=== PATIENT | female | born 1940 | race Caucasian/White ===

== ENCOUNTER 2021-10-18 13:41 | Inpatient (IN) | payer MEDICARE, MEDICAID, SELFPAY ==
--- NOTE | ~2021-10-18 | XR_ITS ---
EXAMINATION: XR chest 1V portable EXAM DATE: 10/18/2021 15:42 INDICATION: Shortness of breath. TECHNIQUE: Portable AP frontal chest x-ray was obtained. An additional portal image was obtained afte r reviewing the initial image due to right hemithorax appearance. There is no prior study for compari son. FINDINGS: Relative lucency along the lateral aspect of right lung is suspected to be skin folds. No c onfluent consolidation, pneumothorax or pleural effusion suspected. There are mild bony degenerative changes. There are cholecystectomy clips. Cardiomediastinal silhouette is normal. IMPRESSION: No acute cardiopulmonary findings. Reviewed, dictated and finalized at location B. 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
--- NOTE | ~2021-10-18 | XR_ITS ---
XR chest 1V portable DATE: 10/20/2021 06:32 INDICATION: Covid 19 infection. Shortness of breath. TECHNIQUE: Portable AP chest on 10/20/2021 at 0602 hours COMPARISON: 10/18/2021 portable AP chest at 1538 hours FINDINGS: Heart size appears within normal range. Aortic arch calcification. There are patchy infiltrates and/or atelectasis scattered primarily in the mid and lower lung zones. No pleural effusion or pneumothorax. Diffuse osteopenia. IMPRESSION: Scattered patchy infiltrate and/atelectasis involving primarily the mid and lower lung zo connor Reviewed, dictated and finalized at location A. 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
[2021-10-18 13:41] VITALS: BP 193/88; PULSE 88; RESP 28; TEMP 38.2; O2SAT 92
--- NOTE | 2021-10-18 13:47 | ECG_ITS ---
Measurements Intervals [place] Rate: 84 P: 54 IA: 162 QRS: 72 QRSD: 96 T: 60 QT: 355 QTc: 420 Interpretive Statements SINUS RHYTHM POSSIBLE LEFT ATRIAL ENLARGEMENT EARLY PRECORDIAL R/S TRANSITION BORDERLINE ST ABNORMALITY- ANTEROLAT/INF LEADS BASELINE ARTIFACT- II, V1 BORDERLINE ECG Electronically Signed On 10-18-2021 15:08:37 GARAGE MECHANIC by Keron Mcneil D.O.
[2021-10-18 15:40] LABS: Basophils Percent Auto 0.5 % (0.2-1.2); Eosinophils Percent Auto 0.2 % (0-4.4); Hematocrit 47.3 % (37.0-47.0); Hemoglobin 15.3 g/dL (12.0-15.0); Immature Granulocyte Absolute 0.02 K/mm3 (0.00-0.031); Immature Granulocyte Percent A 0.3 % (0-0.5); Immature Platelet Fraction Pct 3.1 % (0.9-11.2); Lymphocytes Absolute Auto 0.82 K/mm3 (0.9-3.2); Lymphocytes Percent Auto 13.3 % (18.3-44.2); Mean Corpuscular HGB Conc 32.3 g/dl (32-36); Mean Corpuscular Hemoglobin 29.7 pg (26-34); Mean Corpuscular Volume 91.8 fl (80-100); Mean Platelet Volume 10.7 fl (7.4-10.4); Monocytes Absolute Auto 0.4 K/mm3 (0.1-0.6); Monocytes Percent Auto 6.8 % (2.6-8.5); Neutrophils Absolute Auto 4.9 K/mm3 (1.3-6.7); Neutrophils Percent Auto 78.9 % (45.5-73.1); Platelet Count Result 101 k/mm3 (150-375); Red Blood Count 5.15 M/mm3 (4.2-5.4); White Blood Count 6.2 K/mm3 (4.5-10.0)
[2021-10-18 15:48] LABS: Alanine Aminotransferase 40 U/L (4-35); Albumin Level 4.2 g/dL (3.5-5.1); Alkaline Phosphatase 145 U/L (38-126); Anion Gap 10 mmol/L (8-16); Aspartate Amino Transferase 43 U/L (14-36); Bilirubin,Total 0.5 mg/dL (0.2-1.3); Blood Urea Nitrogen 16 mg/dL (7-17); Calcium 9.7 mg/dL (8.4-10.2); Carbon Dioxide 21 mmol/L (22-30); Chloride 104 mmol/L (98-107); Estimated CRCL calculation 43 ml/min; Estimated Glomerular Filt Rate 53; Glucose 237 mg/dL (65-110); Potassium 4.1 mmol/L (3.4-5.0); Sodium 135 mmol/L (137-145)
[2021-10-18 15:56] LABS: NT Pro B Type Natriuretic Pept 146 pg/mL (5-100)
[2021-10-18 16:27] LABS: Add Urine Microscopic? YES; Appearance Urine Cloudy (Clear); Bacteria Urine 2+ /hpf; Bilirubin Urine Negative (Negative); Blood Urine Negative (Negative); Color Urine Yellow (Yellow); Glucose Urine UA 1+ mg/dL (Negative); Ketones Urine Negative (Negative); Leukocyte Esterase Ur 3+ LEU/UL (Negative); Mucus Urine Rare /lpf; Nitrate Urine Positive (Negative); Protein Urine 1+ mg/dL (Negative); Specific Grav Ur 1.019 (1.001-1.035); Urobilinogen Urine Negative mg/dL (<2.0); WBC Clumps Urine Present /HPF; WBC Urine >75 /hpf
[2021-10-18 17:00] LABS: NT Pro B Type Natriuretic Pept 142 pg/mL (5-100); Troponin I < 0.012 ng/mL (0.000-0.034)
--- NOTE | 2021-10-18 17:00 | ED.GENADULT ---
HPI - General Adult General Chief complaint: Altered Mental Status Stated complaint: Altered mental status Time Seen by Provider: 10/18/21 15:51 History of Present Illness HPI narrative: Patient is a significant 82-year-old female that presents the emergency department with chief complaint of altered mental status patient was sent from a local nursing facility after they noticed that she was less active than normal today and was also found to have a fever. The patient normally is ambulatory and interacts and today she has been laying in her bed and not as interactive than normal. The patient is also been nonambulatory today per the nursing facility the patient had a rapid COVID test that was negative Related Data Home Medications Medication Instructions Recorded Confirmed Aspir-81 81 mg PO DAILY 10/18/21 Lactobacillus acidoph-L.bulgar 1 tablet PO BID 10/18/21 [Floranex] Tylenol 650 mg PO Q4-6H PRN 10/18/21 amlodipine 10 mg PO DAILY 10/18/21 atorvastatin 40 mg PO DAILY 10/18/21 docusate sodium 100 mg PO BID 10/18/21 donepezil 10 mg PO DAILY 10/18/21 insulin glargine [Lantus U-100 15 unit SUBCUT 10/18/21 Insulin] lisinopril 10 mg PO DAILY 10/18/21 loratadine 10 mg PO DAILY 10/18/21 memantine [Namenda] 10 mg PO BID 10/18/21 metoprolol tartrate 25 mg PO BID 10/18/21 pregabalin [Lyrica] 150 mg PO BID 10/18/21 Allergies Allergy/AdvReac Type Severity Reaction Status Date / Time metronidazole Allergy Unknown Verified 10/18/21 13:52 Review of Systems Review of Systems: A 10 system review of systems was completed on the patient and is negative except for what is stated in the HPI. Nursing and ancillary documentation was reviewed. Exam Narrative: GENERAL: Well-appearing, well-nourished, and in no acute distress. HEAD: Normocephalic, atraumatic. EYES: PERRLA and EOMI. ENT: Nares clear, no rhinorrhea or epistaxis. Mucous membranes moist. NECK: Supple. CHEST: Clear to auscultation. No respiratory distress. HEART: Regular rate and rhythm. No murmur heard. Normal peripheral pulses. ABDOMEN: Soft, nontender, nondistended, normal active bowel sounds. EXTREMITIES: Normal range of motion. No edema. SKIN: Warm, dry, no rash. NEURO: No focal deficits. Alert and oriented x3. PSYCH: Normal mood and affect. Course Vital Signs Vital signs: Vital Signs Temperature 38.2 C H 10/18/21 13:41 Pulse Rate 88 10/18/21 13:41 Respiratory Rate 28 H 10/18/21 13:41 Blood Pressure 193/88 H 10/18/21 13:41 Pulse Oximetry 92 10/18/21 13:41 Temperature 38.2 C H 10/18/21 13:41 Pulse Rate 78 10/18/21 17:41 Respiratory Rate 22 H 10/18/21 17:41 Blood Pressure 134/70 10/18/21 17:41 Pulse Oximetry 99 10/18/21 17:41 Medical Decision Making Vital Signs Vital Signs: Vital Signs Temperature 38.2 C H 10/18/21 13:41 Pulse Rate 88 10/18/21 13:41 Respiratory Rate 28 H 10/18/21 13:41 Blood Pressure 193/88 H 10/18/21 13:41 Pulse Oximetry 92 10/18/21 13:41 Temperature 38.2 C H 10/18/21 13:41 Pulse Rate 78 10/18/21 17:41 Respiratory Rate 22 H 10/18/21 17:41 Blood Pressure 134/70 10/18/21 17:41 Pulse Oximetry 99 10/18/21 17:41 Lab Data Result diagrams: 10/18/21 15:24 10/18/21 15:23 Labs: Lab Results 10/18/21 10/18/21 10/18/21 Range/Units 15:22 15:23 15:23 WBC (4.5-10.0) K/mm3 RBC (4.2-5.4) M/mm3 Hgb (12.0-15.0) g/dL Hct (37.0-47.0) % MCV (80-100) fl MCH (26-34) pg MCHC (32-36) g/dl RDW (11.5-14.5) % Plt Count (150-375) k/mm3 MPV (7.4-10.4) fl Immature Gran % (Auto) (0-0.5) % Neut % (Auto) (45.5-73.1) % Lymph % (Auto) (18.3-44.2) % Gordon % (Auto) (2.6-8.5) % Eos % (Auto) (0-4.4) % Baso % (Auto) (0.2-1.2) % Lymph # (Auto) (0.9-3.2) K/mm3 Gordon # (Auto) (0.1-0.6) K/mm3 Eos # (Auto) (0-0.3) K/mm3 Baso # (Auto) (0.0-0.1) K/mm3 A
[2021-10-18 17:41] VITALS: BP 134/70; PULSE 78; RESP 22; O2SAT 99
[2021-10-18 17:52] LABS: Lactic Acid Reflex 3.3 mmol/L (0.7-2.1)
[2021-10-18 17:53] LABS: Partial Thromboplastin Time 30.9 SECONDS (22.3-36.8); Prothrombin Time 12.6 Seconds (11.1-14.7)
[2021-10-18 17:59] LABS: SARS-CoV-2 RNA PCR Positive
[2021-10-18 19:20] VITALS: BP 122/76; PULSE 68; RESP 18; O2SAT 98
--- NOTE | 2021-10-18 20:09 | PM.IMHP ---
H&P: HPI History of Present Illness Date/Time: 10/18/21 20:09 Chief Complaint: Altered mental status. Narrative: This is a 81-year-old female with past medical history significant for Alzheimer's dementia, hypertension, he choose a intermediate resident. Patient was brought to the emergency room due to staff concerns due to patient's altered mental status she was noted not to be as active as usual. In emergency room preliminary workup was significant for urinalysis with numerous wbc's present and a COVID test positive. At the time of my visit patient was obtunded unable to give any history. Review of Systems Review of Systems: ROS unobtainable: Yes unobtainable due to mental status (Obtundation) PMFSH Social History Social History Smoking status: Never smoker Alcohol intake: never Substance use: never Spiritual care concerns: No Meds Home Medications and Allergies Home Medications Medication Instructions Recorded Confirmed Type Aspir-81 81 mg PO DAILY 10/18/21 10/18/21 History Lactobacillus acidoph-L.bulgar 1 tablet PO BID 10/18/21 10/18/21 History [Floranex] Tylenol 650 mg PO Q4-6H PRN 10/18/21 10/18/21 History amlodipine 10 mg PO DAILY 10/18/21 10/18/21 History atorvastatin 40 mg PO DAILY 10/18/21 10/18/21 History docusate sodium 100 mg PO BID 10/18/21 10/18/21 History donepezil 10 mg PO DAILY 10/18/21 10/18/21 History insulin glargine [Lantus U-100 15 unit SUBCUT HS 10/18/21 10/18/21 History Insulin] lisinopril 10 mg PO DAILY 10/18/21 10/18/21 History loratadine 10 mg PO DAILY 10/18/21 10/18/21 History memantine [Namenda] 10 mg PO BID 10/18/21 10/18/21 History metoprolol tartrate 25 mg PO BID 10/18/21 10/18/21 History pregabalin [Lyrica] 150 mg PO BID 10/18/21 10/18/21 History Allergies Allergy/AdvReac Type Severity Reaction Status Date / Time metronidazole Allergy Unknown Verified 10/18/21 13:52 Vital Signs Vital Signs - 24 hr 10/18/21 13:41 10/18/21 17:41 10/18/21 19:20 Temperature 100.8 F H Pulse Rate 88 78 68 Respiratory Rate 28 H 22 H 18 Blood Pressure 193/88 H 134/70 122/76 Pulse Oximetry 92 99 98 Exam Narrative: Patient is laying in bed Const: General: comfortable, no acute distress, well developed and patient obtunded Nutritional Appearance: average body habitus Orientation/consciousness: patient obtunded Limitations: altered mental status HENMT: Head: normal to inspection, normocephalic and atraumatic Ears: hearing grossly normal bilaterally General nose exam: Normal external nose present Face and sinus: normal facial exam Mouth: Yes Normal oral and palatal mucosa present Eyes: General: appearance normal, both eyes and all related structures Alignment and Position: alignment normal Sclera: sclerae normal Pupils: Equal, round and reactive pupils present EOM: EOMs intact bilaterally Neck: Neck: normal visual inspection, full ROM, no lymphadenopathy, supple and no JVD Thyroid: thyroid normal Lymphatic: no lymphadenopathy noted Resp: Effort & Inspection: normal respiratory effort and able to speak in complete sentences Auscultation: clear to auscultation bilaterally, no crackles, no rales, no rhonchi and no wheezes Cardio: Jugular venous distension: no JVD Rate: regular rate Rhythm: regular rhythm Heart sounds: S1 normal heart sound present and S2 normal heart sound present GI: Inspection: normal to inspection GI Palp: Yes Soft to palpation, No Tenderness to palpation present (GI), No Guarding due to palpation present (GI), Yes No hepatosplenomegaly present and No Rebound tenderness present : General: Yes deferred Skin: General skin exam: normal color Rashes: no rashes Wounds: no wounds Neuro: General: CN's II-XI intact bilaterally and patient obtunded Cranial nerves: Yes CN's II-XII intact bilaterally and Yes Equal, round and reactive pupils present Cognition (Neuro): abnormal cognition (Obtun
--- NOTE | 2021-10-18 20:34 | ADMGEN ---
This patient, Emelina Santoyo, was admitted to 3 [facility] Surg Room 316-01. Patient/family oriented to hospital policies and general routines including ID bracelet, bed and alarms, visiting hours, pain management, procedures, bathroom and other care routines, personal items, smoking policy, room service/diet, and visiting hours. Information on how to activate the Rapid Response Team has been discussed. Patient/Family are encouraged to report perceived risks to care and to ask questions if they do not understand what they are told or what they should do.
[2021-10-18 20:39] LABS: Reflex Lactic Acid Yes or No Add Lactic
[2021-10-18 21:19] LABS: Lactic Acid 2.4 mmol/L (0.7-2.1)
[2021-10-18] MEDS: SODIUM CHLORIDE 0.9% IV 1,000 ML 999 ML IV CONT (21:20)
[2021-10-18 21:45] VITALS: BMI 29.0
[2021-10-18 22:00] VITALS: BP 112/56; PULSE 81; RESP 16; TEMP 37.3; O2SAT 95
[2021-10-19] VITALS (8 sets, daily range): BP systolic 125–158; BP diastolic 51–76; PULSE 70–102; RESP 14–16; TEMP 36.2–38.4; O2SAT 91–100
[2021-10-19] MEDS: INSULIN GLARGINE (LANTUS) 1,000 UNITS/10 ML VIAL 15 UNITS SUB-Q ×2 (02:18→20:24)
[2021-10-19 02:37] LABS: Glucose Point of Care 221 mg/dl (65-105)
[2021-10-19 02:37] LABS: Glucose Point of Care 147 mg/dl (65-105)
--- NOTE | 2021-10-19 07:45 | PC.NURSE ---
10/18/21 2100 Pt B/P was in the 90s over 40s. Bases of lungs had crackles. O2 sats 84 on room air. Pt started on3L of O2 sat 91%. Rapid response called.
[2021-10-19 08:38] LABS: Glucose Point of Care 168 mg/dl (65-105)
[2021-10-19 09:15] LABS: Hematocrit 42.5 % (37.0-47.0); Hemoglobin 13.8 g/dL (12.0-15.0); Immature Platelet Fraction Pct 3.8 % (0.9-11.2); Mean Corpuscular HGB Conc 32.5 g/dl (32-36); Mean Corpuscular Hemoglobin 29.6 pg (26-34); Mean Platelet Volume 10.7 fl (7.4-10.4); Platelet Count Result 94 k/mm3 (150-375); Red Blood Count 4.67 M/mm3 (4.2-5.4); Red Cell Distribution Width 14.1 % (11.5-14.5); White Blood Count 5.4 K/mm3 (4.5-10.0)
[2021-10-19 09:29] LABS: Alanine Aminotransferase 30 U/L (4-35); Albumin Level 3.8 g/dL (3.5-5.1); Alkaline Phosphatase 108 U/L (38-126); Anion Gap 12 mmol/L (8-16); Aspartate Amino Transferase 32 U/L (14-36); Bilirubin,Total 0.5 mg/dL (0.2-1.3); Blood Urea Nitrogen 17 mg/dL (7-17); Calcium 9.1 mg/dL (8.4-10.2); Carbon Dioxide 22 mmol/L (22-30); Chloride 104 mmol/L (98-107); Estimated CRCL calculation 40 ml/min; Estimated Glomerular Filt Rate 48; Glucose 179 mg/dL (65-110); Potassium 4.4 mmol/L (3.4-5.0); Sodium 138 mmol/L (137-145)
[2021-10-19 12:25] LABS: Glucose Point of Care 249 mg/dl (65-105)
[2021-10-19] MEDS: INSULIN ASPART (*BKC) 100 UNITS/ML SUB-Q ×2 (12:39→18:07)
--- NOTE | 2021-10-19 16:41 | PM.IMPN ---
Progress Note: A&P Assessment and Plan (1) Altered mental status: Qualifiers: Altered mental status type: unspecified Qualified Code(s): R41.82 - Altered mental status, unspecified Code(s): R41.82 - Altered mental status, unspecified Status: Acute Assessment and Plan: Likely secondary to urinary tract infection Treat infection monitor progress (2) Acute UTI: Code(s): N39.0 - Urinary tract infection, site not specified Status: Acute Assessment and Plan: 10/19 day 2 ceftriaxone 10/19 urine culture growing Gram-negative bacilli (3) COVID-19: Code(s): U07.1 - COVID-19 Status: Acute Assessment and Plan: Though CXR is negative, she is requiring oxygen She is not on oxygen at the [place] 10/19 d/w son, Osmar, staring Dexamethasone and monitoring CXR (4) Dementia: Qualifiers: Dementia type: unspecified type Dementia behavioral disturbance: without behavioral disturbance Qualified Code(s): F03.90 - Unspecified dementia without behavioral disturbance Code(s): F03.90 - Unspecified dementia without behavioral disturbance Status: Acute Assessment and Plan: Continue memantine (5) Hypertension: Qualifiers: Hypertension type: unspecified Qualified Code(s): I10 - Essential (primary) hypertension Code(s): I10 - Essential (primary) hypertension Status: Acute Assessment and Plan: Holding antihypertensive Patient had an episode of hypotension 10/18 10/19 BP 142/62 (6) Multiple sclerosis: Code(s): G35 - Multiple sclerosis Status: Acute Assessment and Plan: 10/19 dx per son, chronic per decades son states that she has at least one episode of UTI or pneumonia every winter Subjective Date/time seen: 10/19/21 16:41 Interval history: 10/18 admitted from [facility] with altered mental status and found to have urinary tract infection. Obtunded upon admission. 10/19 visit. More alert. Staff Notes no signs of pain or agitation. Review of Systems Review of Systems: ROS unobtainable: Yes unobtainable due to medical condition Exam Narrative: HEENT: PERRL, sclerae nonicteric, pharyngeal mucosa pink and intact NECK: No JVD CHEST: Clear to auscultation. Normal effort. HEART: NL S1/S2, regular, no murmur ABDOMEN: BS+, soft, nontender, no mass, no bruits EXTREMITIES: No cyanosis, edema, or clubbing NEUROLOGIC: CN with mild left facial droop MUSCULOSKELETAL: Tone and strength symmetric. PSYCH: drowsy but arouses easily. Appears to be oriented to person. Nonverbal. Objective Data Vital Signs Vital Signs: Vital Signs - 24 hr 10/18/21 17:41 10/18/21 19:20 10/18/21 22:00 Temperature 99.2 F Pulse Rate 78 68 81 Respiratory Rate 22 H 18 16 Blood Pressure 134/70 122/76 112/56 L Pulse Oximetry 99 98 95 10/19/21 06:00 10/19/21 08:00 10/19/21 11:40 Temperature 101.2 F H Pulse Rate 96 96 Respiratory Rate 16 16 Blood Pressure 142/62 H Pulse Oximetry 97 97 91 Intake/Output Intake/Output: Intake & Output 10/16/21 10/17/21 10/18/21 10/19/21 23:59 23:59 23:59 23:59 Intake Total 150 750 Output Total 400 Balance 150 350 Meds/Results Medications: Active Medications Generic Name Dose Route Start Last Admin Trade Name Freq PRN Reason Stop Dose Admin Acetaminophen 650 mg 10/18/21 17:26 Acetaminophen 325 Mg Tablet PO Q4H PRN Mild Pain (1-3) or Fever Amlodipine Besylate 10 mg 10/19/21 09:00 10/19/21 11:57 Amlodipine Besylate 5 Mg Tablet PO Not Given DAILY [facility] Aspirin 81 mg 10/19/21 09:00 10/19/21 11:57 Aspirin 81 Mg Chewable Tablet PO Not Given DAILY [facility] Atorvastatin Calcium 40 mg 10/19/21 09:00 10/19/21 11:57 Atorvastatin 40 Mg Tablet PO Not Given DAILY [facility] Dextrose 12.5 gm 10/19/21 02:47 Dextrose 50% 25 Gm/50 Ml Syringe IV PUSH PRN PRN Hypoglycemia Protocol Docusate Sodiu
[2021-10-19 16:49] LABS: Glucose Point of Care 223 mg/dl (65-105)
[2021-10-19] MEDS: DOCUSATE SODIUM 100 MG CAPSULE PO (18:09)
[2021-10-19] MEDS: ACIDOPHILUS/BULGARICUS CHEWABLE TABLET 1 TABLET PO (18:09)
[2021-10-19] MEDS: METOPROLOL TARTRATE 25 MG TABLET PO (18:09)
[2021-10-19] MEDS: MEMANTINE 10 MG TABLET PO (18:10)
[2021-10-19] MEDS: PREGABALIN (*CRX) 75 MG CAPSULE 150 MG PO (18:11)
[2021-10-19] MEDS: DEXTROSE 5%/0.45% SOD CHL 1,000 ML 65 ML IV CONT ×2 (20:24→21:21)
[2021-10-19 21:26] LABS: Glucose Point of Care 203 mg/dl (65-105)
[2021-10-20] VITALS (9 sets, daily range): BP systolic 116–143; BP diastolic 49–69; PULSE 70–100; RESP 16–20; TEMP 36.6–36.9; O2SAT 95–100
[2021-10-20 08:07] LABS: Hematocrit 40.5 % (37.0-47.0); Hemoglobin 13.2 g/dL (12.0-15.0); Immature Platelet Fraction Pct 4.7 % (0.9-11.2); Mean Corpuscular HGB Conc 32.6 g/dl (32-36); Mean Corpuscular Hemoglobin 29.5 pg (26-34); Mean Corpuscular Volume 90.4 fl (80-100); Mean Platelet Volume 10.7 fl (7.4-10.4); Platelet Count Result 113 k/mm3 (150-375); Red Blood Count 4.48 M/mm3 (4.2-5.4); Red Cell Distribution Width 14.1 % (11.5-14.5); White Blood Count 4.7 K/mm3 (4.5-10.0)
[2021-10-20 08:29] LABS: Alanine Aminotransferase 23 U/L (4-35); Albumin Level 3.5 g/dL (3.5-5.1); Alkaline Phosphatase 89 U/L (38-126); Anion Gap 11 mmol/L (8-16); Aspartate Amino Transferase 26 U/L (14-36); Bilirubin,Total 0.5 mg/dL (0.2-1.3); Blood Urea Nitrogen 18 mg/dL (7-17); Calcium 9.3 mg/dL (8.4-10.2); Carbon Dioxide 20 mmol/L (22-30); Chloride 106 mmol/L (98-107); Estimated CRCL calculation 43 ml/min; Estimated Glomerular Filt Rate 53; Glucose 243 mg/dL (65-110); Potassium 4.3 mmol/L (3.4-5.0); Sodium 137 mmol/L (137-145)
[2021-10-20 09:01] LABS: Glucose Point of Care 198 mg/dl (65-105)
[2021-10-20] MEDS: PREGABALIN (*CRX) 75 MG CAPSULE 150 MG PO ×2 (10:11→17:46)
[2021-10-20] MEDS: MEMANTINE 10 MG TABLET PO ×2 (10:11→17:44)
[2021-10-20] MEDS: ATORVASTATIN 40 MG TABLET PO (10:11)
[2021-10-20] MEDS: amLODIPine BESYLATE 5 MG TABLET 10 MG PO (10:11)
[2021-10-20] MEDS: DOCUSATE SODIUM 100 MG CAPSULE PO ×2 (10:12→17:44)
[2021-10-20] MEDS: METOPROLOL TARTRATE 25 MG TABLET PO ×2 (10:12→17:43)
[2021-10-20] MEDS: ASPIRIN 81 MG CHEWABLE TABLET PO (10:13)
[2021-10-20] MEDS: ACIDOPHILUS/BULGARICUS CHEWABLE TABLET 1 TABLET PO ×2 (10:13→17:43)
[2021-10-20] MEDS: LORATADINE 10 MG TABLET PO (10:14)
[2021-10-20] MEDS: lisinopriL 10 MG TABLET PO (10:14)
[2021-10-20] MEDS: DONEPEZIL HCL 10 MG TABLET PO (10:14)
[2021-10-20 11:49] LABS: Glucose Point of Care 273 mg/dl (65-105)
--- NOTE | 2021-10-20 12:08 | PM.IMPN ---
Progress Note: A&P Assessment and Plan (1) Altered mental status: Qualifiers: Altered mental status type: unspecified Qualified Code(s): R41.82 - Altered mental status, unspecified Code(s): R41.82 - Altered mental status, unspecified Status: Acute Assessment and Plan: Likely secondary to urinary tract infection Improving According to her son this description, she is now near her baseline (2) Acute UTI: Code(s): N39.0 - Urinary tract infection, site not specified Status: Acute Assessment and Plan: 10/20 day 3 ceftriaxone 10/20 urine culture grew lowering Klebsiella pneumonia sensitive to all antibiotics tested except amoxicillin and nitrofurantoin (3) COVID-19: Code(s): U07.1 - COVID-19 Status: Acute Assessment and Plan: Though CXR is negative, she is requiring oxygen She is not on oxygen at the [place] 10/19 d/w son, Osmar, starting Dexamethasone and monitoring CXR 10/20 CXR with patchy infiltrate involving mainly the mid to lower lung zones, patient now on R/A, day 2 dexamethasone (4) Type 2 diabetes mellitus with hyperglycemia: 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: with usp use Qualified Code(s): E11.65 - Type 2 diabetes mellitus with hyperglycemia; Z79.4 - exterminator helper termite (current) use of insulin Code(s): E11.65 - Type 2 diabetes mellitus with hyperglycemia Status: Acute Assessment and Plan: 10/20 due to expected increased sugars with dexamethasone will increase Lantus from 15 to 24 units at HS Continue sliding scale 10/20 d/w son Osmar by phone (5) Dementia: Qualifiers: Dementia type: unspecified type Dementia behavioral disturbance: without behavioral disturbance Qualified Code(s): F03.90 - Unspecified dementia without behavioral disturbance Code(s): F03.90 - Unspecified dementia without behavioral disturbance Status: Acute Assessment and Plan: Continue memantine (6) Hypertension: Qualifiers: Hypertension type: unspecified Qualified Code(s): I10 - Essential (primary) hypertension Code(s): I10 - Essential (primary) hypertension Status: Acute Assessment and Plan: Holding antihypertensive Patient had an episode of hypotension 10/18 10/19 BP 142/62, 10/20 116/50 (7) Multiple sclerosis: Code(s): G35 - Multiple sclerosis Status: Acute Assessment and Plan: 10/19 dx per son, chronic per decades son states that she has at least one episode of UTI or pneumonia every winter Clinically stable Subjective Date/time seen: 10/20/21 12:08 Interval history: 10/18 admitted from longterm with altered mental status and found to have urinary tract infection. Obtunded upon admission. 10/20 visit. More alert. Denied pain or sob. Review of Systems Review of Systems: ROS unobtainable: Yes unobtainable due to mental status (Obtundation) Exam Narrative: HEENT: PERRL, sclerae nonicteric, pharyngeal mucosa pink and intact NECK: No JVD CHEST: Clear to auscultation. Normal effort. HEART: NL S1/S2, regular, no murmur ABDOMEN: BS+, soft, nontender, no mass, no bruits EXTREMITIES: No cyanosis, edema, or clubbing NEUROLOGIC: CN symmetric to inspection, tongue midline MUSCULOSKELETAL: Tone and strength symmetric. PSYCH: drowsy but arouses easily. Oriented to person. Follows simple commands. Responds appropriately in a monosyllabic fashion. Objective Data Vital Signs Vital Signs: Vital Signs - 24 hr 10/19/21 16:00 10/19/21 18:09 10/19/21 20:00 Temperature 97.1 F L Pulse Rate 96 100 Respiratory Rate 14 Blood Pressure 125/51 L Pulse Oximetry 99 95 10/19/21 20:10 10/20/21 00:00 10/20/21 01:54 Temperature 98.2 F 97.8 F Pulse Rate 85 89 Respiratory Rate 16 20 Blood Pressure 130/53 L 133/62 Pulse Oximetry 100 99 95 10/20/21 03:55 10/20/21 08:00 10/20/21 10:12 Temperature 98 F 98.5 F Pulse Rate 77 79 79 Re
[2021-10-20] MEDS: INSULIN ASPART (*BKC) 100 UNITS/ML SUB-Q ×2 (12:44→17:44)
[2021-10-20 17:09] LABS: Glucose Point of Care 208 mg/dl (65-105)
[2021-10-20] MEDS: DEXTROSE 5%/0.45% SOD CHL 1,000 ML 65 ML IV CONT (17:42)
[2021-10-20] MEDS: INSULIN GLARGINE (LANTUS) 1,000 UNITS/10 ML VIAL 24 UNITS SUB-Q (20:12)
[2021-10-20 20:22] LABS: Glucose Point of Care 228 mg/dl (65-105)
[2021-10-21] VITALS (9 sets, daily range): BP systolic 112–131; BP diastolic 50–68; PULSE 61–96; RESP 16–18; TEMP 36.1–36.6; O2SAT 62–100
[2021-10-21] MEDS: DEXTROSE 5%/0.45% SOD CHL 1,000 ML 65 ML IV CONT (01:00)
[2021-10-21] MEDS: amLODIPine BESYLATE 5 MG TABLET 10 MG PO (08:48)
[2021-10-21] MEDS: DOCUSATE SODIUM 100 MG CAPSULE PO ×2 (08:48→17:35)
[2021-10-21] MEDS: METOPROLOL TARTRATE 25 MG TABLET PO ×2 (08:49→17:36)
[2021-10-21] MEDS: lisinopriL 10 MG TABLET PO (08:49)
[2021-10-21] MEDS: MEMANTINE 10 MG TABLET PO ×2 (08:49→17:34)
[2021-10-21] MEDS: ACIDOPHILUS/BULGARICUS CHEWABLE TABLET 1 TABLET PO ×2 (08:49→17:36)
[2021-10-21 08:50] LABS: Glucose Point of Care 173 mg/dl (65-105)
[2021-10-21] MEDS: DONEPEZIL HCL 10 MG TABLET PO (08:50)
[2021-10-21] MEDS: ASPIRIN 81 MG CHEWABLE TABLET PO (08:50)
[2021-10-21] MEDS: ATORVASTATIN 40 MG TABLET PO (08:51)
[2021-10-21] MEDS: LORATADINE 10 MG TABLET PO (08:52)
[2021-10-21 12:22] LABS: Glucose Point of Care 180 mg/dl (65-105)
[2021-10-21] MEDS: PREGABALIN (*CRX) 75 MG CAPSULE 150 MG PO ×2 (12:52→17:41)
--- NOTE | 2021-10-21 13:17 | PM.IMPN ---
Progress Note: A&P Assessment and Plan (1) Altered mental status: Qualifiers: Altered mental status type: unspecified Qualified Code(s): R41.82 - Altered mental status, unspecified Code(s): R41.82 - Altered mental status, unspecified Status: Acute Assessment and Plan: Likely secondary to urinary tract infection made more prominent by her MS and dementia. Overall her condition is improving. Notes state patient is near baseline. Continue current treatment plan. (2) Acute UTI: Code(s): N39.0 - Urinary tract infection, site not specified Status: Acute Assessment and Plan: UA noted. Urine culture growing Klebsiella that is pansensitive except for amoxicillin and nitrofurantoin. Patient is on Rocephin day 4. Continue antibiotics. (3) COVID-19: Code(s): U07.1 - COVID-19 Status: Acute Assessment and Plan: Chest x-ray on admission was clear. Patient tested positive for COVID-19. She did require oxygen although she has now been weaned room air. Repeat CXR with patchy infiltrate involving mainly the mid to lower lung zones. She has been on room air for the past 2 days. Plan to stop dexamethasone at discharge. (4) Type 2 diabetes mellitus with hyperglycemia: Qualifiers: Diabetes mellitus fci insulin use: with fci use Qualified Code(s): E11.65 - Type 2 diabetes mellitus with hyperglycemia; Z79.4 - trial consultant (current) use of insulin Code(s): E11.65 - Type 2 diabetes mellitus with hyperglycemia Status: Acute Assessment and Plan: The patient's blood glucose was reviewed on 10/21 Glucose remains fully controlled. Most likely related to IV fluids with dextrose and steroids. Continue AccuCheks covering with sliding scale. Hypoglycemia protocol available as needed. Adjust Lantus. Stop IV fluids. (5) Dementia: Qualifiers: Dementia behavioral disturbance: without behavioral disturbance Dementia type: unspecified type Qualified Code(s): F03.90 - Unspecified dementia without behavioral disturbance Code(s): F03.90 - Unspecified dementia without behavioral disturbance Status: Acute Assessment and Plan: Stable. Continue memantine and Aricept (6) Hypertension: Qualifiers: Hypertension type: unspecified Qualified Code(s): I10 - Essential (primary) hypertension Code(s): I10 - Essential (primary) hypertension Status: Acute Assessment and Plan: Patient's blood pressure was reviewed on 10/21 Blood pressure remains well controlled. Will continue current medications with Lopressor, Norvasc and lisinopril.. (7) Multiple sclerosis: Code(s): G35 - Multiple sclerosis Status: Acute Assessment and Plan: Patient has had MS for decades. Clinically stable Additional Plan Thrombocytopenia -etiology unclear but could be related to COVID. Platelet count low but not significantly to require transfusion. Repeat as outpatient. Subjective Date/time seen: 10/21/21 13:17 Interval history: 81-year-old female with dementia, hypertension and diabetes here for altered mental status. Patient is alert but confused. Unable to provide history. Review of Systems Review of Systems: ROS unobtainable: Yes unobtainable due to mental status Exam Narrative: AF 97.4 125/50 62 16 97% ra Gen - NARD Chest - clear to auscultation anteriorly and in the flanks, nml RR CV - RRR S1/S2 Abd - Soft, NT/ND, Positive BS Ext - No pedal edema Neuro - Alert but confused. casting agent strength 4-/5 L>R. Would not wiggle toes when asked. Skin - Warm and dry Objective Data Vital Signs Vital Signs: Vital Signs - 24 hr 10/20/21 16:00 10/20/21 17:43 10/20/21 20:00 Temperature 97.9 F 98.1 F Pulse Rate 70 100 94 Respiratory Rate 16 16 Blood Pressure 120/49 L 118/52 L Pulse Oximetry 95 96 10/21/21 00:00 10/21/21 04:00 10/21/21 08:00 Gabriella
--- NOTE | 2021-10-21 13:49 | PM.DS ---
DS: Admitting Diagnosis Discharge Date 10/21/21 Admitting Diagnosis Altered mental status DS: Discharge Diagnosis Discharge Diagnosis (1) Altered mental status: Qualifiers: Altered mental status type: unspecified Qualified Code(s): R41.82 - Altered mental status, unspecified Code(s): R41.82 - Altered mental status, unspecified Status: Acute Assessment and Plan: Likely secondary to urinary tract infection made more prominent by her MS and dementia. Overall her condition has improved. Notes state patient is near baseline. (2) Acute UTI: Code(s): N39.0 - Urinary tract infection, site not specified Status: Acute Assessment and Plan: UA noted. Urine culture growing Klebsiella that is pansensitive except for amoxicillin and nitrofurantoin. Patient was treated with Rocephin. (3) COVID-19: Code(s): U07.1 - COVID-19 Status: Acute Assessment and Plan: Chest x-ray on admission was clear. Patient tested positive for COVID-19. She did require oxygen although she has now been weaned room air. Repeat CXR with patchy infiltrate involving mainly the mid to lower lung zones. She has been on room air for the past 2 days. Plan to stop dexamethasone at discharge. (4) Type 2 diabetes mellitus with hyperglycemia: Qualifiers: Diabetes mellitus longterm insulin use: with longterm use Qualified Code(s): E11.65 - Type 2 diabetes mellitus with hyperglycemia; Z79.4 - long term care pharmacist (current) use of insulin Code(s): E11.65 - Type 2 diabetes mellitus with hyperglycemia Status: Acute Assessment and Plan: The patient's blood glucose was monitored closely with AccuCheks covering with sliding scale. Hypoglycemia protocol was available as needed. (5) Dementia: Qualifiers: Dementia type: unspecified type Dementia behavioral disturbance: without behavioral disturbance Qualified Code(s): F03.90 - Unspecified dementia without behavioral disturbance Code(s): F03.90 - Unspecified dementia without behavioral disturbance Status: Acute Assessment and Plan: Stable. We continued memantine and Aricept (6) Hypertension: Qualifiers: Hypertension type: unspecified Qualified Code(s): I10 - Essential (primary) hypertension Code(s): I10 - Essential (primary) hypertension Status: Acute Assessment and Plan: Patient's blood pressure was monitored closely. Blood pressure remained well controlled. We continued Lopressor, Norvasc and lisinopril. (7) Multiple sclerosis: Code(s): G35 - Multiple sclerosis Status: Acute Assessment and Plan: Patient has had MS for decades. Clinically stable (8) Thrombocytopenia: Code(s): D69.6 - Thrombocytopenia, unspecified Status: Acute Assessment and Plan: Son is unaware that the patient has chronic thrombocytopenia. Could be related to COVID. Will repeat levels in a week. DS: Summary Hospital Course Reason for hospitalization: 81-year-old female with dementia and MS who presents with altered mental status and found to have UTI. Please see H&P for details. Hospital Course: Please see above for details of hospital course. Status at Discharge Cognitive/behavioral status at discharge: Stable Time Spent with Patient Time attestation: Total time spent providing and/or coordinating discharge services: 38 minutes Time spent: Greater than 30 minutes Specific discharge activities: Discussed with son. All questions answered. Exam Narrative: AF 97.4 125/50 62 16 97% ra Gen - NARD Chest - clear to auscultation anteriorly and in the flanks, nml RR CV - RRR S1/S2 Abd - Soft, NT/ND, Positive BS -Zhang secured draining clear yellow urine. Ext - No pedal edema Neuro - Alert but confused. combat information center officer strength 4-/5 L>R. Would not wiggle toes when asked. Skin - Warm and dry DS: Data Da
[2021-10-21 17:14] LABS: Glucose Point of Care 249 mg/dl (65-105)
[2021-10-21] MEDS: INSULIN ASPART (*BKC) 100 UNITS/ML SUB-Q (17:35)
[2021-10-21] MEDS: INSULIN GLARGINE (LANTUS) 1,000 UNITS/10 ML VIAL 18 UNITS SUB-Q (22:30)
[2021-10-22] VITALS: BP 150/62; PULSE 59; RESP 16; TEMP 36.2; O2SAT 95
--- NOTE | 2021-10-25 12:16 | PC.NURSE ---
Blood cx is negative. Dr. Shaquille monreal.
== END 2021-10-22 01:00 | DRG 178 ==
LOC: ANHED 17:09 → ANH3MEDSUR 18:34
PROVIDERS: Emergency Medicine; Internal Medicine; Admitting Provider Internal Medicine; Emergency Provider Emergency Medicine; PCP Family Medicine; Visit Provider Internal Medicine
DX: U07.1 COVID-19 (principal); N39.0 Urinary tract infection, site not specified; B96.1 Klebsiella pneumoniae [K. pneumoniae] as the cause of diseases classified elsewhere; D69.6 Thrombocytopenia, unspecified; G30.9 Alzheimer's disease, unspecified; F02.80 Dementia in other diseases classified elsewhere, unspecified severity, without behavioral disturbance, psychotic disturbance, mood disturbance, and anxiety; G35 Multiple sclerosis; E11.65 Type 2 diabetes mellitus with hyperglycemia; I10 Essential (primary) hypertension; Z79.4 Long term (current) use of insulin; Z79.82 Long term (current) use of aspirin; Z79.899 Other long term (current) drug therapy
CPT/HCPCS: 36415; 71045; 80053; 81001; 82948; 83605; 83880; 84484; 85025; 85027; 85055; 85610; 85730; 87040; 87077; 87086; 87186; 93005; 96365; 96367; 99285; A9270; C9803; G0378; J0131; J0696; J1100; J1815; J7030; U0003; U0005

== ENCOUNTER 2021-10-23 02:52 | Inpatient (IN) | payer MEDICARE, MEDICAID, SELFPAY ==
[2021-10-23] VITALS (95 sets, daily range): BP systolic 74–162; BP diastolic 39–93; PULSE 67–103; RESP 14–26; TEMP 36.4–37.3; O2SAT 92–100; BMI 28.0
--- NOTE | 2021-10-23 | ECHO_ITS ---
Patient Info Name: Emelina Santoyo Age: 81 years : 1940 Gender: Female Ht: 62 in Wt: 153 lbs BSA: 1.76 m2 HR: 78 bpm BP: 104 / 49 mmHg Heart Rhythm: Sinus Rhythm Technical Quality: Fair Exam Date: 10/23/2021 2:19 PM Exam Location: [facility] Pulmonary Exam Room: [place] [address] Patient Status: Inpatient Admit Date: 10/23/2021 Staff Ordering Physician: Alexia Valladares PA-C Shop Technician: Nurys Mary RDCS Attending Provider: Alexia Valladares PA-C Referring Physician: Jacquelyn SOTELO; Exam Type: CA echo doppler color flow Study Info Indications - COVID INCREASED SOB DM DEMENTIA Complete two-dimensional, color flow and Doppler transthoracic echocardiogram is performed. Summary 1. Complete two-dimensional, color flow and Doppler transthoracic echocardiogram is performed. 2. Left ventricular chamber dimension is normal. 3. Left ventricular systolic function is normal, estimated at 60-65%. 4. There is no increased left ventricular wall thickness. 5. The left ventricular diastolic function is grade I diastolic dysfunction. 6. There is no aortic valve stenosis. 7. There is trace mitral valve regurgitation. 8. There is trace tricuspid valve regurgitation. 9. No pulmonary hypertension, estimated pulmonary arterial systolic pressure is 32 mmHg. Left Ventricle Left ventricular chamber dimension is normal. Left ventricular systolic function is normal, estimated at 60-65%. There is no increased left ventricular wall thickness. The left ventricular diastolic function is grade I diastolic dysfunction. Right Ventricle Right ventricular chamber dimension is normal. Right ventricular systolic function is normal. Left Atria Left atrial chamber dimension is normal. Right Atria Right atrial chamber dimension is normal. Aortic Valve The aortic valve is not well visualized. There is mild aortic valve sclerosis. There is no aortic valve stenosis. There is no aortic valve regurgitation. Pulmonic Valve The pulmonic valve is not well visualized. There is mild pulmonic regurgitation. Mitral Valve The mitral valve has normal leaflets. There is trace mitral valve regurgitation. Tricuspid Valve The tricuspid valve leaflets are normal. There is trace tricuspid valve regurgitation. No pulmonary hypertension, estimated pulmonary arterial systolic pressure is 32 mmHg. Pericardium/Pleural The pericardium appears epicardial fat pad. There is small pericardial effusion. Inferior Vena Cava Normal inferior vena cava with <50% collapse upon inspiration consistent with elevated right atrial pressure, 10 mmHg. Aorta The aortic root size at the sinus of Valsalva is normal. There is mild aortic atherosclerosis. Left Ventricular Outflow Tract Name Value Normal LVOT 2D LVOT Diameter 2.0 cm LVOT Doppler LVOT Peak Gradient 5 mmHg LVOT Mean Gradient 2 mmHg LVOT VTI 22 cm LVOT VTI/AV VTI Ratio 0.9 LVOT Stroke Volume 67 ml LVOT CO
--- NOTE | ~2021-10-23 | XR_ITS ---
XR chest 1V portable 10/25/2021 16:07 Indication: Fevers and pneumonia Procedure: AP portable chest Comparison: Comparison to multiple prior studies sequentially, with oldest reviewed study dated 10/18. Findings: Cardiomegaly. There is bilateral airspace disease.. No significant effusion. No pneumothora x. No acute osseous abnormality. Impression: 1: Bilateral airspace disease which may represent pneumonia or edema. Reviewed, dictated and finalized at location B. DE SALES ADVISOR Impression: 1: Bilateral airspace disease which may represent pneumonia or edema.
--- NOTE | ~2021-10-23 | XR_ITS ---
MODIFIED ESOPHAGRAM HISTORY: Possible aspiration pneumonia TECHNIQUE: Modified barium esophagram was performed on 10/29/2021. I administered fluoroscopy and perfo rmed the exam with speech pathologist. Patient was seated for lateral fluoroscopic imaging for inges tion of thin liquids, pudding, solids and quantified amounts, followed by thin liquids in uncontrolle d amounts. This was recorded on tape. A single fluoroscopic spot image was also recorded. The DAP for this procedure was 3 Gycm2. The amount of fluoroscopy time used during this procedure was 3.6 minute s. FINDINGS: Oral stage: Reduced labial seal and poor oral containment. Pharyngeal stage: Pharyngeal dysphagia with reduced laryngeal elevation and tongue base retraction. R esidue in the vallecula and piriform sinus with laryngeal penetration without aspiration. Cervical/esophageal stage: Adequate function. IMPRESSION: Pharyngeal dysphagia with laryngeal penetration. Please correlate with speech pathologis t findings and specific feeding recommendations. Reviewed, dictated and finalized at location A. STORE DEMONSTRATOR IMPRESSION: Pharyngeal dysphagia with laryngeal penetration. Please correlate with speech pathologist findings and specific feeding recommendations.
--- NOTE | ~2021-10-23 | XR_ITS ---
EXAMINATION: XR chest 1V portable EXAM DATE: 10/23/2021 03:31 INDICATION: Dyspnea. BiPAP. TECHNIQUE: Portable AP frontal chest x-ray was obtained. Comparison is made to prior examination from 10/20/2021. FINDINGS: Moderate amount of left-sided, small amount right basilar airspace disease appearance most consistent with pneumonia. This appears stable or with mild progression on the left. No pneumothorax or pleural effusion. Cardiomediastinal silhouette is normal. There are mild bony degenerative changes . IMPRESSION: 1. Moderate left, mild right basilar atelectasis and pneumonia. Reviewed, dictated and finalized at location A. CTOR OF PERSONNEL
--- NOTE | ~2021-10-23 | CT_ITS ---
EXAMINATION: CTA chest PE protocol EXAM DATE: 10/23/2021 05:05 INDICATION: PE. SHORTNESS OF BREATH. COVID + . TECHNIQUE: Spiral CTA of the chest (pulmonary arteries) was performed with 100 cc Omnipaque 350 intr avenous contrast injection. Images were acquired during the pulmonary arterial phase. Coronal maxi mum intensity projection 3D-reconstructions were created by the technologist on dedicated workstation . Axial, coronal and sagittal reformatted images were reviewed. The dose-length product (DLP) for t his examination was 554.13 mGy-cm. The exposure was tailored according to patient size (auto mA exp osure control), and iterative reconstruction (ASIR) was used as additional dose reduction technique. There is no prior study for comparison. FINDINGS: Pulmonary arteries are well opacified and without intraluminal filling defects. No thora cic aortic dissection. Bibasilar dependent airspace disease most consistent with pneumonia and atele ctasis. Aspiration pneumonia is possible given some endobronchial debris and dependent position of th is airspace disease. Trace pericardial effusion. Tracheobronchial tree is patent. There is no medi astinal, hilar or axillary lymphadenopathy. There is no pneumothorax. Heart normal in size. The main, central pulmonary arteries are dilated which can indicate elevated pulmonary arterial pressure, pulmonary arterial hypertension. There is mild coronary arterial calcification, arterial sclerosis. There are cholecystectomy clips. There is mild thoracic spondylosis without osteoblastic or osteol ytic lesions identified. IMPRESSION: 1. Multisegmental left lower lobe, segmental right lower lobe dependent airspace disease most likely pneumonia and atelectasis. Aspiration as etiology not excludable. 2. No pulmonary emboli. Reviewed, dictated and finalized at location A. IGINAL LIAISON OFFICER IMPRESSION: 1. Multisegmental left lower lobe, segmental right lower lobe dependent airspa ce disease most likely pneumonia and atelectasis. Aspiration as etiology not ex cludable. 2. No pulmonary emboli.
--- NOTE | ~2021-10-23 | XR_ITS ---
EXAMINATION: XR chest 1V portable EXAM DATE: 10/30/2021 17:50 INDICATION: PNA . TECHNIQUE: Portable AP frontal chest x-ray was obtained. Comparison is made to prior examination from 10/25/2021. FINDINGS: Scattered moderate amount of bilateral airspace disease consistent with pneumonia and atele ctasis, does not appear significantly changed compared to prior study. The cardiomediastinal silhouet te is prominent but magnified on this AP technique. There is no pneumothorax suspected. There are no pleural effusions. There are cholecystectomy clips. There are bony degenerative changes. Thoracic dex trocurvature. IMPRESSION: Moderate amount of bilateral airspace disease probably pneumonia and atelectasis [facility] Reviewed, dictated and finalized at location G. DENTIAL INTERIOR DESIGNER IMPRESSION: Moderate amount of bilateral airspace disease probably pneumonia a nd atelectasis unchanged
--- NOTE | 2021-10-23 02:59 | ECG_ITS ---
Measurements Intervals [place] Rate: 91 P: 16 HI: 124 QRS: 57 QRSD: 109 T: 48 QT: 360 QTc: 444 Interpretive Statements SINUS RHYTHM EARLY PRECORDIAL R/S TRANSITION BORDERLINE ST ABNORMALITY- ANTEROLAT/INF LEADS BORDERLINE ECG Electronically Signed On 10-23-2021 12:22:14 SOCCER REFEREE by Keron Mcneil D.O.
[2021-10-23] MEDS: DEXAMETHASONE SOD PHOS INJ 4 MG/ML VIAL 6 MG IV PUSH (03:09)
[2021-10-23 03:19] LABS: Alveolar/Arterial O2 Gradient 618.6 mmHg; Base Excess ABG -1.3 mEq/l (+/-2.0); Fractional Inspired Oxygen 100 %; HCO3 ABG 21.6 mEq/l (22.0-26.0); Oxygen Content ABG 19.5 %vol (16.0-22.0); Oxygen Saturation ABG 93.3 % (95.0-100.0); Oxyhemoglobin 92.4 % THb (90.0-100.0); PCO2 ABG 31.6 mmHg (35.0-45.0); PO2 ABG 62.8 mmHg (80.0-100.0); PO2 FiO2 Ratio Arterial Blood 0.63 %; pH ABG 7.453 (7.350-7.450)
[2021-10-23 03:20] LABS: Device NON-INVASIVE VENT; Modified Allen's Test Pass; Site Drawn RIGHT RADIAL
--- NOTE | 2021-10-23 03:20 | ED.GENADULT ---
HPI - General Adult General Chief complaint: Shortness of Breath/Dyspnea Stated complaint: dyspnea, low O2 sat Time Seen by Provider: 10/23/21 03:02 History of Present Illness HPI narrative: Patient 81-year-old female presents the emergency department with chief complaint of shortness of breath. The patient was recently in the hospital for urinary tract infection COVID-19. Patient was discharged on the [facility] was doing okay and this evening started having severe shortness of breath. EMS was called patient was saturating in the 70s and ultimately required CPAP assistance transport to the emergency department. Upon arrival to the emergency department the patient is unable to provide much history and is limited secondary to shortness of breath. Related Data Home Medications Medication Instructions Recorded Confirmed Aspir-81 81 mg PO DAILY 10/18/21 10/18/21 Lactobacillus acidoph-L.bulgar 1 tablet PO BID 10/18/21 10/18/21 [Floranex] Tylenol 650 mg PO Q4-6H PRN 10/18/21 10/18/21 amlodipine 10 mg PO DAILY 10/18/21 10/18/21 atorvastatin 40 mg PO DAILY 10/18/21 10/18/21 docusate sodium 100 mg PO BID 10/18/21 10/18/21 donepezil 10 mg PO DAILY 10/18/21 10/18/21 insulin glargine 15 unit SUBCUT HS 10/18/21 10/18/21 lisinopril 10 mg PO DAILY 10/18/21 10/18/21 loratadine 10 mg PO DAILY 10/18/21 10/18/21 memantine [Namenda] 10 mg PO BID 10/18/21 10/18/21 metoprolol tartrate 25 mg PO BID 10/18/21 10/18/21 pregabalin [Lyrica] 150 mg PO BID 10/18/21 10/18/21 Allergies Allergy/AdvReac Type Severity Reaction Status Date / Time metronidazole Allergy Unknown Verified 10/18/21 13:52 Review of Systems Review of Systems: A 10 system review of systems was completed on the patient and is negative except for what is stated in the HPI. Nursing and ancillary documentation was reviewed. [facility] Past Medical History Medical History Multiple sclerosis Type 2 diabetes mellitus with hyperglycemia Social History Social History Smoking status: Never smoker Alcohol intake: never Substance use: never Spiritual care concerns: No Exam Narrative: GENERAL: Well-appearing, well-nourished, and in no acute distress. HEAD: Normocephalic, atraumatic. EYES: PERRLA and EOMI. ENT: Nares clear, no rhinorrhea or epistaxis. Mucous membranes moist. NECK: Supple. CHEST: Crackles to auscultation. Moderate respiratory distress. HEART: Regular rate and rhythm. No murmur heard. Normal peripheral pulses. ABDOMEN: Soft, nontender, nondistended, normal active bowel sounds. EXTREMITIES: Normal range of motion. No edema. SKIN: Warm, dry, no rash. NEURO: No focal deficits. Alert and oriented x3. PSYCH: Normal mood and affect. Course Vital Signs Vital signs: Vital Signs Temperature 37.3 C 10/23/21 02:55 Pulse Rate 100 10/23/21 02:55 Respiratory Rate 26 H 10/23/21 02:55 Blood Pressure 112/65 10/23/21 02:55 Pulse Oximetry 94 10/23/21 02:55 Temperature 37.3 C 10/23/21 02:55 Pulse Rate 87 10/23/21 05:06 Respiratory Rate 22 H 10/23/21 05:06 Blood Pressure 162/72 H 10/23/21 05:06 Pulse Oximetry 94 10/23/21 05:06 Medical Decision Making Vital Signs Vital Signs: Vital Signs Temperature 37.3 C 10/23/21 02:55 Pulse Rate 100 10/23/21 02:55 Respiratory Rate 26 H 10/23/21 02:55 Blood Pressure 112/65 10/23/21 02:55 Pulse Oximetry 94 10/23/21 02:55 Temperature 37.3 C 10/23/21 02:55 Pulse Rate 87 10/23/21 05:06 Respiratory Rate 22 H 10/23/21 05:06 Blood Pressure 162/72 H 10/23/21 05:06 Pulse Oximetry 94 10/23/21 05:06 Lab Data Result diagrams: 10/23/21 03:11 10/23/21 03:11 Labs: Lab Results 10/23/21 10/23/21 10/23/21 Range/Units 03:11 03:11 03:11 WBC 9.4 (4.5-10.0) K/mm3 RBC 5.24
[2021-10-23 03:21] LABS: Non-Invasive Expiratory Pressure 5 CMH2O; Non-Invasive Inspiratory Pressure 10 CMH2O; Non-Invasive Vent Rate 17 /MIN
[2021-10-23 03:39] LABS: Basophils Percent Auto 0.3 % (0.2-1.2); Hematocrit 46.3 % (37.0-47.0); Hemoglobin 15.2 g/dL (12.0-15.0); Immature Granulocyte Absolute 0.05 K/mm3 (0.00-0.031); Immature Granulocyte Percent A 0.5 % (0-0.5); Lymphocytes Absolute Auto 0.48 K/mm3 (0.9-3.2); Lymphocytes Percent Auto 5.1 % (18.3-44.2); Mean Corpuscular HGB Conc 32.8 g/dl (32-36); Mean Corpuscular Volume 88.4 fl (80-100); Mean Platelet Volume 10.3 fl (7.4-10.4); Monocytes Absolute Auto 0.5 K/mm3 (0.1-0.6); Monocytes Percent Auto 5.1 % (2.6-8.5); Neutrophils Absolute Auto 8.4 K/mm3 (1.3-6.7); Platelet Count Result 160 k/mm3 (150-375); Red Blood Count 5.24 M/mm3 (4.2-5.4); Red Cell Distribution Width 13.6 % (11.5-14.5); White Blood Count 9.4 K/mm3 (4.5-10.0)
[2021-10-23 03:50] LABS: Alanine Aminotransferase 40 U/L (4-35); Alkaline Phosphatase 107 U/L (38-126); Anion Gap 10 mmol/L (8-16); Aspartate Amino Transferase 50 U/L (14-36); Bilirubin,Total 0.6 mg/dL (0.2-1.3); Blood Urea Nitrogen 22 mg/dL (7-17); Calcium 9.2 mg/dL (8.4-10.2); Carbon Dioxide 27 mmol/L (22-30); Chloride 102 mmol/L (98-107); Estimated CRCL calculation 31 ml/min; Estimated Glomerular Filt Rate 43; Glucose 253 mg/dL (65-110); Lactic Acid Reflex 1.5 mmol/L (0.7-2.1); Potassium 3.8 mmol/L (3.4-5.0); Sodium 139 mmol/L (137-145)
[2021-10-23 03:54] LABS: Magnesium 1.5 mg/dL (1.6-2.3)
[2021-10-23] MEDS: SODIUM CHLORIDE 0.9% IV 500 ML IV CONT (03:55)
[2021-10-23 03:56] LABS: Prothrombin Time 12.6 Seconds (11.1-14.7)
[2021-10-23 03:57] LABS: Partial Thromboplastin Time 31.9 SECONDS (22.3-36.8)
[2021-10-23 03:59] LABS: NT Pro B Type Natriuretic Pept 1080 pg/mL (5-100)
[2021-10-23 04:26] LABS: Troponin I 0.061 ng/mL (0.000-0.034)
[2021-10-23 04:28] LABS: Add Urine Microscopic? YES; Appearance Urine Clear (Clear); Bacteria Urine Trace /hpf; Bilirubin Urine Negative (Negative); Blood Urine 2+ (Negative); Color Urine Yellow (Yellow); Glucose Urine UA 2+ mg/dL (Negative); Ketones Urine Trace mg/dL (Negative); Leukocyte Esterase Ur Negative LEU/UL (Negative); Mucus Urine Rare /lpf; Nitrate Urine Negative (Negative); Protein Urine 2+ mg/dL (Negative); Specific Grav Ur 1.014 (1.001-1.035); Squamous Epithelial Cell Urine Rare /hpf (Few); Urobilinogen Urine Negative mg/dL (<2.0); WBC Urine 0-3 /hpf
[2021-10-23] MEDS: ASPIRIN 81 MG CHEWABLE TABLET 324 MG PO (05:06)
[2021-10-23 07:59] LABS: Troponin I 0.193 ng/mL (0.000-0.034)
[2021-10-23] MEDS: MAGNESIUM SULF 2 GM/WATER 50ML 2 GM/50 ML BAG IVPB (09:41)
--- NOTE | 2021-10-23 09:50 | ECG_ITS ---
Measurements Intervals [place] Rate: 71 P: 48 LA: 130 QRS: 71 QRSD: 114 T: 72 QT: 443 QTc: 483 Interpretive Statements SINUS RHYTHM EARLY PRECORDIAL R/S TRANSITION BORDERLINE ECG Electronically Signed On 10-23-2021 12:24:12 TUNE UP MECHANIC by Keron Mcneil D.O.
--- NOTE | 2021-10-23 10:07 | PM.IMHP ---
H&P: HPI History of Present Illness Date/Time: 10/23/21 10:07 Chief Complaint: Dyspnea Narrative: Date of service: 10/23/2021 Emelina Santoyo is a 81 year old female with a history of MS, Type 2 DM, dementia, and recent hospitalization for COVID peumonia and UTI who was discharged to nursing facility on 10/21/2021 with no oxygen requirements and presented again to the emergency department on 10/23/2021 from her nursing facility due to concerns from staff for increased shortness of breath. On EMS arrival she was noted to be hypoxic in the 70s and required CPAP for transport. On arrival to the ED, her O2 sats were 94% on CPAP, she was mildly tachypneic with additional vital signs stable, she was afebrile. Troponin mildly elevated at 0.061, ABG demonstrated hypoxemia. CTA showed multi segmental left lower lobe and segmental right lower lobe airspace disease with aspiration not excludable, no evidence of PE. On my evaluation, the patient is on BiPAP. She is awake and she response hello when greeted but does not provide any additional verbal responses. Reviewed prior documentation, this seems to be consistent with her baseline. Patient is being admitted to the hospitalist service as an inpatient. Supervising physician for this history and physical is Dr. Silvio Corbin. I have discussed this case with my supervising physician. I spoke with the patients son/POBrant Prasad for 13 minutes to obtain additional medical history as well as to provide updates and answer questions. Review of Systems Review of Systems: All systems reviewed & are unremarkable except as noted in HPI and below PMFSH Past Medical History Medical History (Updated 10/23/21 @ 10:27 by Alexia Valladares PA-C) Dementia Multiple sclerosis Pneumonia due to COVID-19 virus Type 2 diabetes mellitus with hyperglycemia Surgical History Surgical History (Updated 10/23/21 @ 10:27 by Alexia Valladares PA-C) Surgical history unknown Social History Social History (Updated 10/23/21 @ 10:33 by Alexia Valladares PA-C) Social History: Ms. Santoyo resides in a fci for many years. She is a full code and her son Osmar is her surrogate decision maker. Information obtained from patient's son, Osmar. Smoking status: Never smoker Alcohol intake: never Substance use: never Spiritual care concerns: No Meds Home Medications and Allergies Home Medications Medication Instructions Recorded Confirmed Type Aspir-81 81 mg PO DAILY 10/18/21 10/23/21 History Lactobacillus acidoph-L.bulgar 1 tablet PO BID 10/18/21 10/23/21 History [Floranex] Tylenol 650 mg PO Q4-6H PRN 10/18/21 10/23/21 History amlodipine 10 mg PO DAILY 10/18/21 10/23/21 History atorvastatin 40 mg PO DAILY 10/18/21 10/23/21 History docusate sodium 100 mg PO BID 10/18/21 10/23/21 History donepezil 10 mg PO DAILY 10/18/21 10/23/21 History insulin glargine 15 unit SUBCUT HS 10/18/21 10/23/21 History lisinopril 10 mg PO DAILY 10/18/21 10/23/21 History loratadine 10 mg PO DAILY 10/18/21 10/23/21 History memantine [Namenda] 10 mg PO BID 10/18/21 10/23/21 History metoprolol tartrate 25 mg PO BID 10/18/21 10/23/21 History pregabalin [Lyrica] 150 mg PO BID 10/18/21 10/23/21 History cefdinir 300 mg PO Q12H #8 cap 10/21/21 10/23/21 Rx cranberry 450 mg PO DAILY 10/23/21 10/23/21 History cyanocobalamin (vitamin B-12) 1,000 mcg MONTHLY 10/23/21 10/23/21 History magnesium gluconate [Mag-G] 27 mg PO BID 10/23/21 10/23/21 History multivitamin,gh-vyqy-Mx-FA-min 1 tablet DAILY 10/23/21 10/23/21 History [Multivitamin And Mineral] Allergies Allergy/AdvReac Type Severity Reaction Status Date / Time metronidazole Allergy Unknown Verified 10/18/21 13:52 Vital Signs Vital Signs - 24 hr 10/23/21 02:55 10/23/21 03:01 10/23/21 03:32 Temperature 99.2 F Pulse Rate 100 98 84 Respiratory Rate 26 H 20 Blood Pressure 112/65 74/45 L Pulse Oximetry 94 94 92 10/23/21 03:45 10/23/21 03:54
[2021-10-23] MEDS: ALBUTEROL SULFATE NEB 2.5 MG/0.5 ML INH 5 MG INHALATION ×3 (10:26→21:17)
[2021-10-23] MEDS: IPRATROPIUM BR 0.02% INH SOLN 0.5 MG/2.5 ML VIAL INHALATION ×3 (10:26→21:17)
[2021-10-23] MEDS: SODIUM CHLORIDE 0.9% IV 1,000 ML 75 ML IV CONT (10:35)
[2021-10-23 10:46] LABS: Hemoglobin A1C 6.1 % (<5.7)
[2021-10-23 10:50] LABS: Glucose Point of Care 179 mg/dl (65-105)
[2021-10-23 10:53] LABS: Troponin I 0.204 ng/mL (0.000-0.034)
[2021-10-23] MEDS: AMPICILLIN SULB 1.5 GM/NS 50ML 1.5 GM/50 ML VIAL IVPB ×2 (11:28→21:42)
[2021-10-23 11:31] LABS: Alanine Aminotransferase 28 U/L (4-35); Estimated CRCL calculation 34 ml/min; Estimated Glomerular Filt Rate 48
[2021-10-23 11:37] LABS: Prothrombin Time 13.3 Seconds (11.1-14.7)
[2021-10-23] MEDS: REMDESIVIR 200 MG/NS 250 ML 200 MG/250 ML BAG 250 MG IVPB (12:33)
--- NOTE | 2021-10-23 13:03 | PCOTNOTE ---
10/23 Pt. to be evaluated upon admission to hospital room
[2021-10-23 14:13] LABS: Troponin I 0.167 ng/mL (0.000-0.034)
--- NOTE | 2021-10-23 16:07 | PCSTNOTE ---
Patient to be evaluated upon admission to a hospital room.
[2021-10-23 16:49] LABS: Glucose Point of Care 194 mg/dl (65-105)
[2021-10-23] MEDS: PREGABALIN (*CRX) 75 MG CAPSULE 150 MG PO (17:49)
[2021-10-23] MEDS: DOCUSATE SODIUM 100 MG CAPSULE PO (17:49)
--- NOTE | 2021-10-23 20:47 | PC.NURSE ---
room in hosp not yet cleaned, awaiting transfer to floor, pt aware
--- NOTE | 2021-10-23 21:27 | ADMGEN ---
This patient, Emelina Santoyo, was admitted to IMU Room 232-01 on 10/23/2021 at 0920. Patient/family oriented to hospital policies and general routines including ID bracelet, bed and alarms, visiting hours, pain management, procedures, bathroom and other care routines, personal items, smoking policy, room service/diet, and visiting hours. Information on how to activate the Rapid Response Team has been discussed. Patient/Family are encouraged to report perceived risks to care and to ask questions if they do not understand what they are told or what they should do.
[2021-10-23 21:42] LABS: Glucose Point of Care 162 mg/dl (65-105)
[2021-10-23] MEDS: MEMANTINE 10 MG TABLET PO (21:43)
[2021-10-23] MEDS: METOPROLOL TARTRATE 25 MG TABLET PO (21:43)
[2021-10-24] VITALS (15 sets, daily range): BP systolic 145–147; BP diastolic 58–64; PULSE 74–100; RESP 16–28; TEMP 35.9–38.8; O2SAT 91–100
[2021-10-24] MEDS: AMPICILLIN SULB 1.5 GM/NS 50ML 1.5 GM/50 ML VIAL IVPB ×4 (00:45→20:51)
[2021-10-24] MEDS: IPRATROPIUM BR 0.02% INH SOLN 0.5 MG/2.5 ML VIAL INHALATION ×2 (02:46→10:26)
[2021-10-24] MEDS: ALBUTEROL SULFATE NEB 2.5 MG/0.5 ML INH 5 MG INHALATION ×2 (02:46→10:26)
[2021-10-24 05:38] LABS: Hemoglobin 13.4 g/dL (12.0-15.0); Immature Platelet Fraction Pct 3.2 % (0.9-11.2); Mean Corpuscular HGB Conc 33.5 g/dl (32-36); Mean Corpuscular Hemoglobin 29.1 pg (26-34); Platelet Count Result 126 k/mm3 (150-375); Red Cell Distribution Width 13.6 % (11.5-14.5); White Blood Count 5.1 K/mm3 (4.5-10.0)
[2021-10-24 05:48] LABS: INR 1.1; Prothrombin Time 14.2 Seconds (11.1-14.7)
[2021-10-24 05:52] LABS: Alanine Aminotransferase 28 U/L (4-35); Albumin Level 3.6 g/dL (3.5-5.1); Alkaline Phosphatase 83 U/L (38-126); Anion Gap 10 mmol/L (8-16); Aspartate Amino Transferase 40 U/L (14-36); Bilirubin,Total 0.6 mg/dL (0.2-1.3); Blood Urea Nitrogen 18 mg/dL (7-17); Calcium 8.5 mg/dL (8.4-10.2); Carbon Dioxide 27 mmol/L (22-30); Chloride 103 mmol/L (98-107); Estimated CRCL calculation 37 ml/min; Estimated Glomerular Filt Rate 53; Glucose 96 mg/dL (65-110); Lactate Dehydrogenase 697 U/L (313-618); Potassium 3.9 mmol/L (3.4-5.0); Sodium 140 mmol/L (137-145)
[2021-10-24 06:03] LABS: CRP 24.1 mg/dL (<1.0)
[2021-10-24 08:34] LABS: Glucose Point of Care 88 mg/dl (65-105)
--- NOTE | 2021-10-24 09:48 | P.PNIM_ITS ---
Progress Note: A&P Assessment and Plan (1) Respiratory failure with hypoxia: Qualifiers: Chronicity: acute Qualified Code(s): J96.01 - Acute respiratory failure with hypoxia Code(s): J96.91 - Respiratory failure, unspecified with hypoxia Status: Acute Assessment and Plan: Acute respiratory failure secondary to pneumonia * Found to be hypoxic on arrival requiring BiPAP * ABG showed hypoxemia * CTA negative for PE * Currently maintaining O2 sats 99% on 4L. * Goal O2 sats 92% or above. Wean to goal (2) COVID-19: Code(s): U07.1 - COVID-19 Status: Acute Assessment and Plan: Positive COVID test 10/18 * Continue dexamethasone and remdesivir #2. ALT normal. * Supportive care to include bronchodilators, expectorants, antipyretics * Wean oxygen as above * Monitor inflammatory markers * Patient has not been vaccinated for COVID (3) Acute UTI: Code(s): N39.0 - Urinary tract infection, site not specified Status: Acute Assessment and Plan: Managed at last hospitalization * Urine culture 10/18/21 with growth of Klebsiella pneumoniae treated with ceftriaxone and transitioned to cefdinir on discharge * UA is improved * Continue IV Unasyn for aspiration coverage (see below) which is susceptible based on urine culture results * Patient afebrile and without leukocytosis (4) Pneumonia: Code(s): J18.9 - Pneumonia, unspecified organism Status: Acute Assessment and Plan: CXR and CTA showed bilateral pneumonia * Aspiration pneumonia cannot be ruled out * Patient's son reports that patient is on a modified diet at long-term. Continue with minced and moist diet and thickened liquids while awaiting ST recommendations * Plan for bedside swallow eval today. Appreciate ST eval * Continue IV Unasyn for aspiration coverage (5) Elevated troponin: Code(s): R77.8 - Other specified abnormalities of plasma proteins Status: Acute Assessment and Plan: Troponin was mildly elevated up to 0.204 with downward trend * Patient unable to report any symptoms; did not appear to have chest pain * May be related to COVID-19 * No evidence of ischemic changes on EKG * Echocardiogram reviewed with no evidence of wall motion abnormalities (6) Acute renal insufficiency: Code(s): N28.9 - Disorder of kidney and ureter, unspecified Status: Acute Assessment and Plan: Creatinine increased up to 1.2 * Improved back to baseline with IV fluid rehydration which has since been discontinued * Monitor BMP (7) Hypertension: Qualifiers: Hypertension type: unspecified Qualified Code(s): I10 - Essential (primary) hypertension Code(s): I10 - Essential (primary) hypertension Status: Acute Assessment and Plan: Blood pressures had been soft * She was rehydrated with IV fluids and BP has improved. * Last BP 146/60 * Antihypertensives on hold, resume when clinically appropriate * Monitor blood pressure trends (8) Type 2 diabetes mellitus with hyperglycemia: Qualifiers: Diabetes mellitus detention insulin use: with terminal clerk use Qualified Code(s): E11.65 - Type 2 diabetes mellitus with hyperglycemia; Z79.4 - correction (current) use of insulin Code(s): E11.65 - Type 2 diabetes mellitus with hyperglycemia Status: Acute Assessment and Plan: A1c is 6.1 * Last glucose 96 * Will hold Lantus * Continue Accu-Cheks, sliding scale insulin, hypoglycemic protoc
--- NOTE | 2021-10-24 09:48 | PM.IMPN ---
Progress Note: A&P Assessment and Plan (1) Respiratory failure with hypoxia: Qualifiers: Chronicity: acute Qualified Code(s): J96.01 - Acute respiratory failure with hypoxia Code(s): J96.91 - Respiratory failure, unspecified with hypoxia Status: Acute Assessment and Plan: Acute respiratory failure secondary to pneumonia Found to be hypoxic on arrival requiring BiPAP ABG showed hypoxemia CTA negative for PE Currently maintaining O2 sats 99% on 4L. Goal O2 sats 92% or above. Wean to goal (2) COVID-19: Code(s): U07.1 - COVID-19 Status: Acute Assessment and Plan: Positive COVID test 10/18 Continue dexamethasone and remdesivir #2. ALT normal. Supportive care to include bronchodilators, expectorants, antipyretics Wean oxygen as above Monitor inflammatory markers Patient has not been vaccinated for COVID (3) Acute UTI: Code(s): N39.0 - Urinary tract infection, site not specified Status: Acute Assessment and Plan: Managed at last hospitalization Urine culture 10/18/21 with growth of Klebsiella pneumoniae treated with ceftriaxone and transitioned to cefdinir on discharge UA is improved Continue IV Unasyn for aspiration coverage (see below) which is susceptible based on urine culture results Patient afebrile and without leukocytosis (4) Pneumonia: Code(s): J18.9 - Pneumonia, unspecified organism Status: Acute Assessment and Plan: CXR and CTA showed bilateral pneumonia Aspiration pneumonia cannot be ruled out Patient's son reports that patient is on a modified diet at halfway. Continue with minced and moist diet and thickened liquids while awaiting ST recommendations Plan for bedside swallow eval today. Appreciate ST eval Continue IV Unasyn for aspiration coverage (5) Elevated troponin: Code(s): R77.8 - Other specified abnormalities of plasma proteins Status: Acute Assessment and Plan: Troponin was mildly elevated up to 0.204 with downward trend Patient unable to report any symptoms; did not appear to have chest pain May be related to COVID-19 No evidence of ischemic changes on EKG Echocardiogram reviewed with no evidence of wall motion abnormalities (6) Acute renal insufficiency: Code(s): N28.9 - Disorder of kidney and ureter, unspecified Status: Acute Assessment and Plan: Creatinine increased up to 1.2 Improved back to baseline with IV fluid rehydration which has since been discontinued Monitor BMP (7) Hypertension: Qualifiers: Hypertension type: unspecified Qualified Code(s): I10 - Essential (primary) hypertension Code(s): I10 - Essential (primary) hypertension Status: Acute Assessment and Plan: Blood pressures had been soft She was rehydrated with IV fluids and BP has improved. Last BP 146/60 Antihypertensives on hold, resume when clinically appropriate Monitor blood pressure trends (8) Type 2 diabetes mellitus with hyperglycemia: Qualifiers: Diabetes mellitus assisted insulin use: with assisted use Qualified Code(s): E11.65 - Type 2 diabetes mellitus with hyperglycemia; Z79.4 - intermodal customer service (current) use of insulin Code(s): E11.65 - Type 2 diabetes mellitus with hyperglycemia Status: Acute Assessment and Plan: A1c is 6.1 Last glucose 96 Will hold Lantus Continue Accu-Cheks, sliding scale insulin, hypoglycemic protocol Monitor glucose trends (9) Multiple sclerosis: Code(s): G35 - Multiple sclerosis Status: Acute Assessment and Plan: Chronic for decades and unchanged Appreciate PT/OT eval (10) Dementia: Qualifiers: Dementia type: unspecified type Dementia behavioral disturbance: without behavioral disturbance Qualified Code(s): F03.90 - Unspecified dementia without behavioral disturbance Code(s): F03.90 - Unspecified d
[2021-10-24] MEDS: ASPIRIN 81 MG CHEWABLE TABLET PO (10:00)
[2021-10-24] MEDS: PREGABALIN (*CRX) 75 MG CAPSULE 150 MG PO (10:20)
[2021-10-24] MEDS: ACETAMINOPHEN 325 MG TABLET 650 MG PO (10:20)
[2021-10-24] MEDS: DOCUSATE SODIUM 100 MG CAPSULE PO (10:24)
[2021-10-24] MEDS: ATORVASTATIN 40 MG TABLET PO (10:24)
[2021-10-24] MEDS: METOPROLOL TARTRATE 25 MG TABLET PO ×2 (10:24→20:52)
[2021-10-24] MEDS: ENOXAPARIN 40 MG/0.4 ML SYRINGE SUB-Q (10:24)
[2021-10-24] MEDS: LORATADINE 10 MG TABLET PO (10:24)
[2021-10-24] MEDS: DONEPEZIL HCL 10 MG TABLET PO (10:25)
[2021-10-24] MEDS: CHOLECALCIFEROL 1,000 UNITS TABLET 5000 UNITS PO (10:25)
[2021-10-24] MEDS: MEMANTINE 10 MG TABLET PO (10:25)
--- NOTE | 2021-10-24 10:33 | PCSTNOTE ---
Please refer to the Bedside Swallow Evaluation in the EMR. Please note, silent aspiration cannot be ruled out at bedside.
[2021-10-24 13:32] LABS: Glucose Point of Care 182 mg/dl (65-105)
--- NOTE | 2021-10-24 14:47 | PCOTNOTE ---
Pt. is dependent at baseline, in [facility]. Physical Therapy evaluation and nursing confirms. Order for OT evaluation canceled. Awaiting call from hospitalist who ordered.
[2021-10-24 17:28] LABS: Glucose Point of Care 196 mg/dl (65-105)
[2021-10-24 21:50] LABS: Glucose Point of Care 170 mg/dl (65-105)
[2021-10-25] VITALS: BP 144/60; PULSE 85; RESP 20; TEMP 37; O2SAT 98
[2021-10-25] MEDS: AMPICILLIN SULB 1.5 GM/NS 50ML 1.5 GM/50 ML VIAL IVPB ×4 (01:04→18:16)
[2021-10-25 01:18] VITALS: TEMP 38.4
[2021-10-25 02:39] VITALS: TEMP 37.2
[2021-10-25 05:26] LABS: Hematocrit 37.7 % (37.0-47.0); Hemoglobin 12.8 g/dL (12.0-15.0); Mean Corpuscular Hemoglobin 29.4 pg (26-34); Mean Corpuscular Volume 86.7 fl (80-100); Mean Platelet Volume 10.3 fl (7.4-10.4); Platelet Count Result 143 k/mm3 (150-375); Red Blood Count 4.35 M/mm3 (4.2-5.4); Red Cell Distribution Width 13.6 % (11.5-14.5); White Blood Count 4.6 K/mm3 (4.5-10.0)
[2021-10-25 05:41] LABS: INR 1.2; Prothrombin Time 15.2 Seconds (11.1-14.7)
[2021-10-25 05:50] LABS: Alanine Aminotransferase 23 U/L (4-35); Albumin Level 3.1 g/dL (3.5-5.1); Alkaline Phosphatase 68 U/L (38-126); Anion Gap 6 mmol/L (8-16); Aspartate Amino Transferase 38 U/L (14-36); Bilirubin,Total 0.8 mg/dL (0.2-1.3); Blood Urea Nitrogen 23 mg/dL (7-17); Calcium 8.2 mg/dL (8.4-10.2); Carbon Dioxide 26 mmol/L (22-30); Chloride 107 mmol/L (98-107); Estimated CRCL calculation 34 ml/min; Estimated Glomerular Filt Rate 48; Glucose 141 mg/dL (65-110); Potassium 3.4 mmol/L (3.4-5.0); Sodium 139 mmol/L (137-145)
[2021-10-25 08:00] VITALS: BP 126/70; PULSE 78; RESP 18; TEMP 36.7; O2SAT 96
[2021-10-25] MEDS: METOPROLOL TARTRATE 25 MG TABLET PO (10:20)
[2021-10-25] MEDS: ENOXAPARIN 40 MG/0.4 ML SYRINGE SUB-Q (10:20)
[2021-10-25] MEDS: ASPIRIN 81 MG CHEWABLE TABLET PO (10:20)
[2021-10-25 11:01] LABS: Glucose Point of Care 129 mg/dl (65-105)
--- NOTE | 2021-10-25 11:55 | P.PNIM_ITS ---
Progress Note: A&P Assessment and Plan (1) Respiratory failure with hypoxia: Qualifiers: Chronicity: acute Qualified Code(s): J96.01 - Acute respiratory failure with hypoxia Code(s): J96.91 - Respiratory failure, unspecified with hypoxia Status: Acute Assessment and Plan: Acute respiratory failure secondary to pneumonia * Found to be hypoxic on arrival requiring BiPAP, now weaned from BIpap. * ABG showed hypoxemia * CTA negative for PE * Currently maintaining O2 sats 99% on 3-4L. * Goal O2 sats 92% or above. Wean to goal (2) COVID-19: Code(s): U07.1 - COVID-19 Status: Acute Assessment and Plan: Positive COVID test 10/18 * Continue dexamethasone (started on 10/23/2021) and keep HOLDING remdesivir (family wishes). ALT normal. * Supportive care to include bronchodilators, expectorants, antipyretics * Wean oxygen as above * Monitor inflammatory markers * Patient has not been vaccinated for COVID * Changed DuoNebs to scheduled. (3) Acute UTI: Code(s): N39.0 - Urinary tract infection, site not specified Status: Acute Assessment and Plan: Managed at last hospitalization * Urine culture 10/18/21 with growth of Klebsiella pneumoniae treated with ceftriaxone and transitioned to cefdinir on discharge * UA is improved * Continue IV Unasyn for aspiration coverage (see below) which is susceptible based on urine culture results - agree, due to her MS immobility - at great risk for persistent infection. * Patient afebrile and without leukocytosis (4) Pneumonia: Code(s): J18.9 - Pneumonia, unspecified organism Status: Acute Assessment and Plan: CXR and CTA showed bilateral pneumonia * Aspiration pneumonia cannot be ruled out * Patient's son reports that patient is on a modified diet at long-term. Minced and moist diet and thickened liquids. * ST evaluation yesterday stated that at that time and her limited responses, aspiration could not be ruled out at the bedside study yesterday. Hoping that now with improved patient response and alertness, that ST bedside swallow eval. could be repeated tomorrow. * Appreciate ST re-evaluation. * patient's family may need to consent for TPN if fails 2nd eval. * Continue IV Unasyn for aspiration coverage * Changed DuoNebs to scheduled. (5) Elevated troponin: Code(s): R77.8 - Other specified abnormalities of plasma proteins Status: Acute Assessment and Plan: Troponin was mildly elevated up to 0.204 with downward trend * Patient denied chest pain * last trop was down trended * May be related to COVID-19 or respiratory distress at admission * No evidence of ischemic changes on EKG - reviewed. * Echocardiogram reviewed with no evidence of wall motion abnormalities (6) Acute renal insufficiency: Code(s): N28.9 - Disorder of kidney and ureter, unspecified Status: Acute Assessment and Plan: Creatinine increased up to 1.2 * Improved back to baseline with IV fluid rehydration * Monitor BMP * creatinine 1.1 today * on IVFs maintenance while NPO (7) Hypertension: Qualifiers: Hypertension type: unspecified Qualified Code(s): I10 - Essential (primary) hypertension Code(s): I10 - Essential (primary) hypertension Status: Acute Assessment and Plan: Blood pressures had been soft * She was rehydrated with IV fluids and BP has improved. * Last BP 144/60 * Antihypertensives on hold, resume when clinically appropriate * Mon
--- NOTE | 2021-10-25 11:55 | PM.IMPN ---
Progress Note: A&P Assessment and Plan (1) Respiratory failure with hypoxia: Qualifiers: Chronicity: acute Qualified Code(s): J96.01 - Acute respiratory failure with hypoxia Code(s): J96.91 - Respiratory failure, unspecified with hypoxia Status: Acute Assessment and Plan: Acute respiratory failure secondary to pneumonia Found to be hypoxic on arrival requiring BiPAP, now weaned from BIpap. ABG showed hypoxemia CTA negative for PE Currently maintaining O2 sats 99% on 3-4L. Goal O2 sats 92% or above. Wean to goal (2) COVID-19: Code(s): U07.1 - COVID-19 Status: Acute Assessment and Plan: Positive COVID test 10/18 Continue dexamethasone (started on 10/23/2021) and keep HOLDING remdesivir (family wishes). ALT normal. Supportive care to include bronchodilators, expectorants, antipyretics Wean oxygen as above Monitor inflammatory markers Patient has not been vaccinated for COVID Changed DuoNebs to scheduled. (3) Acute UTI: Code(s): N39.0 - Urinary tract infection, site not specified Status: Acute Assessment and Plan: Managed at last hospitalization Urine culture 10/18/21 with growth of Klebsiella pneumoniae treated with ceftriaxone and transitioned to cefdinir on discharge UA is improved Continue IV Unasyn for aspiration coverage (see below) which is susceptible based on urine culture results - agree, due to her MS immobility - at great risk for persistent infection. Patient afebrile and without leukocytosis (4) Pneumonia: Code(s): J18.9 - Pneumonia, unspecified organism Status: Acute Assessment and Plan: CXR and CTA showed bilateral pneumonia Aspiration pneumonia cannot be ruled out Patient's son reports that patient is on a modified diet at shelter. Minced and moist diet and thickened liquids. ST evaluation yesterday stated that at that time and her limited responses, aspiration could not be ruled out at the bedside study yesterday. Hoping that now with improved patient response and alertness, that ST bedside swallow eval. could be repeated tomorrow. Appreciate ST re-evaluation. patient's family may need to consent for TPN if fails 2nd eval. Continue IV Unasyn for aspiration coverage Changed DuoNebs to scheduled. (5) Elevated troponin: Code(s): R77.8 - Other specified abnormalities of plasma proteins Status: Acute Assessment and Plan: Troponin was mildly elevated up to 0.204 with downward trend Patient denied chest pain last trop was down trended May be related to COVID-19 or respiratory distress at admission No evidence of ischemic changes on EKG - reviewed. Echocardiogram reviewed with no evidence of wall motion abnormalities (6) Acute renal insufficiency: Code(s): N28.9 - Disorder of kidney and ureter, unspecified Status: Acute Assessment and Plan: Creatinine increased up to 1.2 Improved back to baseline with IV fluid rehydration Monitor BMP creatinine 1.1 today on IVFs maintenance while NPO (7) Hypertension: Qualifiers: Hypertension type: unspecified Qualified Code(s): I10 - Essential (primary) hypertension Code(s): I10 - Essential (primary) hypertension Status: Acute Assessment and Plan: Blood pressures had been soft She was rehydrated with IV fluids and BP has improved. Last BP 144/60 Antihypertensives on hold, resume when clinically appropriate Monitor blood pressure trends (8) Type 2 diabetes mellitus with hyperglycemia: Qualifiers: Diabetes mellitus moth exterminator insulin use: with mcc use Qualified Code(s): E11.65 - Type 2 diabetes mellitus with hyperglycemia; Z79.4 - senior care (current) use of insulin Code(s): E11.65 - Type 2 diabetes mellitus with hyperglycemia Status: Acute Assessment and Plan: A1c is 6.1 Last glucose 129, 165 Will hold Lantus
[2021-10-25 13:15] LABS: Glucose Point of Care 165 mg/dl (65-105)
[2021-10-25 16:00] VITALS: BP 119/57; PULSE 67; RESP 14; TEMP 36.6; O2SAT 94
[2021-10-25 17:15] LABS: Glucose Point of Care 205 mg/dl (65-105)
[2021-10-25] MEDS: INSULIN ASPART (*BKC) 100 UNITS/ML SUB-Q (18:16)
[2021-10-25] MEDS: SODIUM CHLORIDE 0.9% IV 1,000 ML 100 ML IV CONT (18:16)
--- NOTE | 2021-10-25 18:56 | PC.NURSE ---
This patient, Emelina Santoyo, was transferred to on 10/25/21 at 1855. Personal belongings sent with patient. Report given to 3rd Med/engraving press operator. Appropriate documentation sent with patient.
[2021-10-25 22:00] VITALS: BP 142/60; PULSE 73; RESP 20; TEMP 36.6; O2SAT 90
[2021-10-25 22:06] LABS: Glucose Point of Care 140 mg/dl (65-105)
[2021-10-26] VITALS (8 sets, daily range): BP systolic 105–178; BP diastolic 58–90; PULSE 74–91; RESP 20–24; TEMP 36.1–36.3; O2SAT 85–97
[2021-10-26] MEDS: AMPICILLIN SULB 1.5 GM/NS 50ML 1.5 GM/50 ML VIAL IVPB ×5 (00:03→23:30)
[2021-10-26] MEDS: SODIUM CHLORIDE 0.9% IV 1,000 ML 100 ML IV CONT ×2 (07:30→20:33)
[2021-10-26 07:41] LABS: Hematocrit 40.1 % (37.0-47.0); Mean Corpuscular HGB Conc 32.4 g/dl (32-36); Mean Corpuscular Hemoglobin 29.1 pg (26-34); Mean Corpuscular Volume 89.9 fl (80-100); Mean Platelet Volume 10.6 fl (7.4-10.4); Platelet Count Result 158 k/mm3 (150-375); Red Blood Count 4.46 M/mm3 (4.2-5.4); Red Cell Distribution Width 13.4 % (11.5-14.5); White Blood Count 3.9 K/mm3 (4.5-10.0)
[2021-10-26 07:56] LABS: Alanine Aminotransferase 26 U/L (4-35); Albumin Level 3.3 g/dL (3.5-5.1); Alkaline Phosphatase 74 U/L (38-126); Anion Gap 7 mmol/L (8-16); Aspartate Amino Transferase 41 U/L (14-36); Bilirubin,Total 0.8 mg/dL (0.2-1.3); Blood Urea Nitrogen 26 mg/dL (7-17); Calcium 8.8 mg/dL (8.4-10.2); Carbon Dioxide 25 mmol/L (22-30); Chloride 111 mmol/L (98-107); Estimated CRCL calculation 37 ml/min; Estimated Glomerular Filt Rate 53; Glucose 144 mg/dL (65-110); INR 1.1; Magnesium 2.1 mg/dL (1.6-2.3); Potassium 3.8 mmol/L (3.4-5.0); Prothrombin Time 14.1 Seconds (11.1-14.7); Sodium 143 mmol/L (137-145)
[2021-10-26 08:04] LABS: Glucose Point of Care 127 mg/dl (65-105)
--- NOTE | 2021-10-26 09:44 | P.PNIM_ITS ---
Progress Note: A&P Assessment and Plan (1) Respiratory failure with hypoxia: Qualifiers: Chronicity: acute Qualified Code(s): J96.01 - Acute respiratory failure with hypoxia Code(s): J96.91 - Respiratory failure, unspecified with hypoxia Status: Acute Assessment and Plan: Acute respiratory failure secondary to pneumonia * Found to be hypoxic on arrival requiring BiPAP, now weaned from BIpap. * ABG showed hypoxemia * CTA negative for PE * 10/26 maintaining O2 sats 90-93%% on 3L. (2) COVID-19: Code(s): U07.1 - COVID-19 Status: Acute Assessment and Plan: Positive COVID test 10/18 (unvaccinated) * Continue dexamethasone (started on 10/23/2021) and defer remdesivir (family wishes). * Monitor inflammatory markers (3) Acute UTI: Code(s): N39.0 - Urinary tract infection, site not specified Status: Acute Assessment and Plan: Managed at last hospitalization * Urine culture 10/18/21 with growth of Klebsiella pneumoniae treated with ceftriaxone and transitioned to cefdinir on discharge * UA is improved * Continue IV Unasyn for aspiration coverage (see below) which is susceptible based on urine culture results - agree, due to her MS immobility - at great risk for persistent infection. * Patient afebrile and without leukocytosis (4) Pneumonia: Qualifiers: Pneumonia type: due to unspecified organism Laterality: bilateral Lung location: unspecified part of lung Qualified Code(s): J18.9 - Pneumonia, unspecified organism Code(s): J18.9 - Pneumonia, unspecified organism Status: Acute Assessment and Plan: CXR and CTA showed bilateral pneumonia * Aspiration pneumonia cannot be ruled out * Patient's son reported that patient is on a modified diet at senior living. Minced and moist diet and thickened liquids. * ST evaluation 10/26 likely safe for pudding and applesauce * No MBS until 10/28 after quarantine ends (5) Elevated troponin: Code(s): R77.8 - Other specified abnormalities of plasma proteins Status: Acute Assessment and Plan: Troponin was mildly elevated up to 0.204 with downward trend * NO ACS * Likley due to COVID-19 (6) Acute renal insufficiency: Code(s): N28.9 - Disorder of kidney and ureter, unspecified Status: Acute Assessment and Plan: RESOLVED (7) Hypertension: Qualifiers: Hypertension type: unspecified Qualified Code(s): I10 - Essential (primary) hypertension Code(s): I10 - Essential (primary) hypertension Status: Acute Assessment and Plan: BP reviewed 10/26 and control adequate (8) Type 2 diabetes mellitus with hyperglycemia: Qualifiers: Diabetes mellitus detention insulin use: with termite inspector use Qualified Code(s): E11.65 - Type 2 diabetes mellitus with hyperglycemia; Z79.4 - retirement (current) use of insulin Code(s): E11.65 - Type 2 diabetes mellitus with hyperglycemia Status: Acute Assessment and Plan: A1c is 6.1 BS reviewed 10/26 and control adequate (9) Multiple sclerosis: Code(s): G35 - Multiple sclerosis Status: Acute Assessment and Plan: Chronic, slowly pogressive (10) Dementia: Qualifiers: Dementia type: unspecified type Dementia behavioral disturbance: without behavioral disturbance Qualified Code(s): F03.90 - Unspecified dementia without behavioral disturbance Code(s): F03.90 - U
--- NOTE | 2021-10-26 09:44 | PM.IMPN ---
Progress Note: A&P Assessment and Plan (1) Respiratory failure with hypoxia: Qualifiers: Chronicity: acute Qualified Code(s): J96.01 - Acute respiratory failure with hypoxia Code(s): J96.91 - Respiratory failure, unspecified with hypoxia Status: Acute Assessment and Plan: Acute respiratory failure secondary to pneumonia Found to be hypoxic on arrival requiring BiPAP, now weaned from BIpap. ABG showed hypoxemia CTA negative for PE 10/26 maintaining O2 sats 90-93%% on 3L. (2) COVID-19: Code(s): U07.1 - COVID-19 Status: Acute Assessment and Plan: Positive COVID test 10/18 (unvaccinated) Continue dexamethasone (started on 10/23/2021) and defer remdesivir (family wishes). Monitor inflammatory markers (3) Acute UTI: Code(s): N39.0 - Urinary tract infection, site not specified Status: Acute Assessment and Plan: Managed at last hospitalization Urine culture 10/18/21 with growth of Klebsiella pneumoniae treated with ceftriaxone and transitioned to cefdinir on discharge UA is improved Continue IV Unasyn for aspiration coverage (see below) which is susceptible based on urine culture results - agree, due to her MS immobility - at great risk for persistent infection. Patient afebrile and without leukocytosis (4) Pneumonia: Qualifiers: Pneumonia type: due to unspecified organism Laterality: bilateral Lung location: unspecified part of lung Qualified Code(s): J18.9 - Pneumonia, unspecified organism Code(s): J18.9 - Pneumonia, unspecified organism Status: Acute Assessment and Plan: CXR and CTA showed bilateral pneumonia Aspiration pneumonia cannot be ruled out Patient's son reported that patient is on a modified diet at long-term. Minced and moist diet and thickened liquids. ST evaluation 10/26 likely safe for pudding and applesauce No MBS until 10/28 after quarantine ends (5) Elevated troponin: Code(s): R77.8 - Other specified abnormalities of plasma proteins Status: Acute Assessment and Plan: Troponin was mildly elevated up to 0.204 with downward trend NO ACS Likley due to COVID-19 (6) Acute renal insufficiency: Code(s): N28.9 - Disorder of kidney and ureter, unspecified Status: Acute Assessment and Plan: RESOLVED (7) Hypertension: Qualifiers: Hypertension type: unspecified Qualified Code(s): I10 - Essential (primary) hypertension Code(s): I10 - Essential (primary) hypertension Status: Acute Assessment and Plan: BP reviewed 10/26 and control adequate (8) Type 2 diabetes mellitus with hyperglycemia: Qualifiers: Diabetes mellitus middle or intermediate school principal insulin use: with middle or intermediate school principal use Qualified Code(s): E11.65 - Type 2 diabetes mellitus with hyperglycemia; Z79.4 - senior care (current) use of insulin Code(s): E11.65 - Type 2 diabetes mellitus with hyperglycemia Status: Acute Assessment and Plan: A1c is 6.1 BS reviewed 10/26 and control adequate (9) Multiple sclerosis: Code(s): G35 - Multiple sclerosis Status: Acute Assessment and Plan: Chronic, slowly pogressive (10) Dementia: Qualifiers: Dementia type: unspecified type Dementia behavioral disturbance: without behavioral disturbance Qualified Code(s): F03.90 - Unspecified dementia without behavioral disturbance Code(s): F03.90 - Unspecified dementia without behavioral disturbance Status: Acute Assessment and Plan: 10/26 Mental status at baseline as previously described by her son (11) Hypomagnesemia: Code(s): E83.42 - Hypomagnesemia Status: Acute Assessment and Plan: RESOLVED Subjective Date/time seen: 10/26/21 09:44 Interval history: 10/26: More alert today. Denied pain or shortness of breath. Did not do well on swallowing study earlier this admission.
[2021-10-26] MEDS: ENOXAPARIN 40 MG/0.4 ML SYRINGE SUB-Q (09:51)
[2021-10-26 11:48] LABS: Glucose Point of Care 144 mg/dl (65-105)
--- NOTE | 2021-10-26 16:09 | PCSTNOTE ---
Please refer to the Bedside Swallow Evaluation in the EMR. Please note, silent aspiration cannot be ruled out at bedside. Pt did appear safe with small pudding and applesauce bites. She could have these consistencies for pleasure feeds, however does not appear alert enough to meet nutritional needs orally. All other consistencies should wait until the MBS can rule out aspiration.She is coughing frequently which could be the pneumonia or due to aspiration of her secretions.
[2021-10-26 17:33] LABS: Glucose Point of Care 189 mg/dl (65-105)
[2021-10-26 20:47] LABS: Glucose Point of Care 258 mg/dl (65-105)
[2021-10-27] VITALS: BP 148/69; PULSE 71; RESP 20; TEMP 35.9; O2SAT 96
[2021-10-27 04:00] VITALS: BP 150/78; PULSE 84; RESP 20; TEMP 36.7; O2SAT 91
[2021-10-27] MEDS: AMPICILLIN SULB 1.5 GM/NS 50ML 1.5 GM/50 ML VIAL IVPB ×3 (06:07→18:32)
[2021-10-27 08:00] VITALS: BP 119/72; PULSE 80; RESP 20; TEMP 36.6; O2SAT 90; O2SAT 92
[2021-10-27] MEDS: SODIUM CHLORIDE 0.9% IV 1,000 ML 100 ML IV CONT ×2 (09:11→20:32)
[2021-10-27] MEDS: ENOXAPARIN 40 MG/0.4 ML SYRINGE SUB-Q (09:15)
[2021-10-27] MEDS: INSULIN ASPART (*BKC) 100 UNITS/ML SUB-Q ×2 (09:16→13:25)
[2021-10-27 10:07] LABS: INR 1.1; Prothrombin Time 14.1 Seconds (11.1-14.7)
[2021-10-27 10:12] LABS: Alanine Aminotransferase 23 U/L (4-35); Estimated CRCL calculation 45 ml/min; Estimated Glomerular Filt Rate > 60
[2021-10-27 12:30] LABS: Glucose Point of Care 211 mg/dl (65-105)
--- NOTE | 2021-10-27 13:08 | P.PNIM_ITS ---
Progress Note: A&P Assessment and Plan (1) Respiratory failure with hypoxia: Qualifiers: Chronicity: acute Qualified Code(s): J96.01 - Acute respiratory failure with hypoxia Code(s): J96.91 - Respiratory failure, unspecified with hypoxia Status: Acute Assessment and Plan: Acute respiratory failure secondary to pneumonia * Found to be hypoxic on arrival requiring BiPAP, now weaned from BIpap. * ABG showed hypoxemia * CTA negative for PE * 10/26 maintaining O2 sats 90-93%% on 3L. * 10/27 maintaining sats 90-91% on 5L. * 10/27 15:40PM updated son Osmar who is considering transferring her to [facility] where visitors are allowed (2) COVID-19: Code(s): U07.1 - COVID-19 Status: Acute Assessment and Plan: Positive COVID test 10/18 (unvaccinated) * Continue dexamethasone (started on 10/23/2021) and defer remdesivir (family wishes). * Monitor inflammatory markers (3) Acute UTI: Code(s): N39.0 - Urinary tract infection, site not specified Status: Acute Assessment and Plan: Managed at last hospitalization * Urine culture 10/18/21 with growth of Klebsiella pneumoniae treated with ceftriaxone and transitioned to cefdinir on discharge * UA is improved * Continue IV Unasyn for uti and aspiration coverage * Patient afebrile and without leukocytosis (4) Pneumonia: Qualifiers: Pneumonia type: due to unspecified organism Laterality: bilateral Lung location: unspecified part of lung Qualified Code(s): J18.9 - Pneumonia, unspecified organism Code(s): J18.9 - Pneumonia, unspecified organism Status: Acute Assessment and Plan: CXR and CTA showed bilateral pneumonia * Aspiration pneumonia cannot be ruled out * Patient's son reported that patient is on a modified diet at correction. Minced and moist diet and thickened liquids. * ST evaluation 10/26 likely safe for pudding and applesauce * No MBS until 10/28 after quarantine ends per ST protocol (5) Elevated troponin: Code(s): R77.8 - Other specified abnormalities of plasma proteins Status: Acute Assessment and Plan: Troponin was mildly elevated up to 0.204 with downward trend * NO ACS * Likley due to COVID-19 (6) Acute renal insufficiency: Code(s): N28.9 - Disorder of kidney and ureter, unspecified Status: Acute Assessment and Plan: RESOLVED (7) Hypertension: Qualifiers: Hypertension type: unspecified Qualified Code(s): I10 - Essential (primary) hypertension Code(s): I10 - Essential (primary) hypertension Status: Acute Assessment and Plan: BP reviewed 10/27 and control adequate (8) Type 2 diabetes mellitus with hyperglycemia: Qualifiers: Diabetes mellitus prison insulin use: with prison use Qualified Code(s): E11.65 - Type 2 diabetes mellitus with hyperglycemia; Z79.4 - terminal superintendent (current) use of insulin Code(s): E11.65 - Type 2 diabetes mellitus with hyperglycemia Status: Acute Assessment and Plan: A1c is 6.1 BS reviewed 10/27 and control adequate (9) Multiple sclerosis: Code(s): G35 - Multiple sclerosis Status: Acute Assessment and Plan: Chronic, slowly pogressive (10) Dementia: Qualifiers: Dementia type: unspecified type Dementia behavioral disturbance: without behavioral disturbance Qualified Code(s): F03.90 - Unspecified dementia without behavio
--- NOTE | 2021-10-27 13:08 | PM.IMPN ---
Progress Note: A&P Assessment and Plan (1) Respiratory failure with hypoxia: Qualifiers: Chronicity: acute Qualified Code(s): J96.01 - Acute respiratory failure with hypoxia Code(s): J96.91 - Respiratory failure, unspecified with hypoxia Status: Acute Assessment and Plan: Acute respiratory failure secondary to pneumonia Found to be hypoxic on arrival requiring BiPAP, now weaned from BIpap. ABG showed hypoxemia CTA negative for PE 10/26 maintaining O2 sats 90-93%% on 3L. 10/27 maintaining sats 90-91% on 5L. 10/27 15:40PM updated son Osmar who is considering transferring her to [facility] where visitors are allowed (2) COVID-19: Code(s): U07.1 - COVID-19 Status: Acute Assessment and Plan: Positive COVID test 10/18 (unvaccinated) Continue dexamethasone (started on 10/23/2021) and defer remdesivir (family wishes). Monitor inflammatory markers (3) Acute UTI: Code(s): N39.0 - Urinary tract infection, site not specified Status: Acute Assessment and Plan: Managed at last hospitalization Urine culture 10/18/21 with growth of Klebsiella pneumoniae treated with ceftriaxone and transitioned to cefdinir on discharge UA is improved Continue IV Unasyn for uti and aspiration coverage Patient afebrile and without leukocytosis (4) Pneumonia: Qualifiers: Pneumonia type: due to unspecified organism Laterality: bilateral Lung location: unspecified part of lung Qualified Code(s): J18.9 - Pneumonia, unspecified organism Code(s): J18.9 - Pneumonia, unspecified organism Status: Acute Assessment and Plan: CXR and CTA showed bilateral pneumonia Aspiration pneumonia cannot be ruled out Patient's son reported that patient is on a modified diet at care home. Minced and moist diet and thickened liquids. ST evaluation 10/26 likely safe for pudding and applesauce No MBS until 10/28 after quarantine ends per ST protocol (5) Elevated troponin: Code(s): R77.8 - Other specified abnormalities of plasma proteins Status: Acute Assessment and Plan: Troponin was mildly elevated up to 0.204 with downward trend NO ACS Likley due to COVID-19 (6) Acute renal insufficiency: Code(s): N28.9 - Disorder of kidney and ureter, unspecified Status: Acute Assessment and Plan: RESOLVED (7) Hypertension: Qualifiers: Hypertension type: unspecified Qualified Code(s): I10 - Essential (primary) hypertension Code(s): I10 - Essential (primary) hypertension Status: Acute Assessment and Plan: BP reviewed 10/27 and control adequate (8) Type 2 diabetes mellitus with hyperglycemia: Qualifiers: Diabetes mellitus belt tender insulin use: with belt tender use Qualified Code(s): E11.65 - Type 2 diabetes mellitus with hyperglycemia; Z79.4 - oracle sql developer (current) use of insulin Code(s): E11.65 - Type 2 diabetes mellitus with hyperglycemia Status: Acute Assessment and Plan: A1c is 6.1 BS reviewed 10/27 and control adequate (9) Multiple sclerosis: Code(s): G35 - Multiple sclerosis Status: Acute Assessment and Plan: Chronic, slowly pogressive (10) Dementia: Qualifiers: Dementia type: unspecified type Dementia behavioral disturbance: without behavioral disturbance Qualified Code(s): F03.90 - Unspecified dementia without behavioral disturbance Code(s): F03.90 - Unspecified dementia without behavioral disturbance Status: Acute Assessment and Plan: 10/27 Mental status at baseline as previously described by her son (11) Hypomagnesemia: Code(s): E83.42 - Hypomagnesemia Status: Acute Assessment and Plan: RESOLVED Subjective Date/time seen: 10/27/21 13:08 Interval history: 10/27: Comfortable. Denied pain or shortness of breath. Did not do well on
--- NOTE | 2021-10-27 15:35 | PC.NURSE ---
I spoke with pt's son and POA, Osmar, who wanted an update on pt's status. I answered his questions and explained that pt should be ggetting a barium swallow study tomorrow which will help in determining if pt is/has developed aspiration pneumonia and/or have ongoing risk of it. Osmar spent the majority of the conversation expressing his dissatisfaction with hospital policy regarding visitors and the website regarding visitors. I explained that I was the bedside nurse and provide care to the patient and have no control over the policy or the development and information contained on the website. Osmar did say several times that he has no problem with the actual care or treatment provided to the patient and that his problem is regarding policy and enforcement of that policy. He asked to speak to the doctor (Dr. Mills) which I immediately called and informed Dr. Mills that Osmar wanted to speak to him. Dr. Mills stated he would call patient at 1600 today.
[2021-10-27 16:00] VITALS: BP 150/65; PULSE 73; RESP 18; TEMP 36.1; O2SAT 94
--- NOTE | 2021-10-27 16:45 | PC.NURSE ---
This nurse was made aware that patient's daughter was in lobby and here to visit patient. Family member noted to be highly upset. Patient's nurse discussed with patient's son visiting policy for the hospital and for COVID patient's. The patient's daughter continued to wait in the lobby to visit the patient. The head housekeeper made aware of situation and spoke with daughter. recreational resort manager made aware. This nurse and head housekeeper spoke with daughter in lobby regarding patient's clinical status and hospital policy regarding visiting and current isolation status. Patient's daughter agreed to a FaceTime call.
[2021-10-27 17:04] LABS: Glucose Point of Care 186 mg/dl (65-105)
[2021-10-27 20:00] VITALS: BP 149/54; PULSE 73; RESP 18; TEMP 36.2; O2SAT 90
[2021-10-27 20:32] LABS: Glucose Point of Care 262 mg/dl (65-105)
[2021-10-28] VITALS (9 sets, daily range): BP systolic 114–155; BP diastolic 53–84; PULSE 66–74; RESP 15–19; TEMP 35.8–36.5; O2SAT 90–96
[2021-10-28] MEDS: AMPICILLIN SULB 1.5 GM/NS 50ML 1.5 GM/50 ML VIAL IVPB ×5 (06:20→23:48)
[2021-10-28 08:19] LABS: Glucose Point of Care 136 mg/dl (65-105)
[2021-10-28] MEDS: SODIUM CHLORIDE 0.9% IV 1,000 ML 100 ML IV CONT (08:40)
[2021-10-28] MEDS: ENOXAPARIN 40 MG/0.4 ML SYRINGE SUB-Q (08:41)
--- NOTE | 2021-10-28 08:51 | PCOTNOTE ---
Cancel pt. OT Eval duplicate order. See previous Occupational Therapy note
--- NOTE | 2021-10-28 11:51 | P.PNIM_ITS ---
Progress Note: A&P Assessment and Plan (1) Respiratory failure with hypoxia: Qualifiers: Chronicity: acute Qualified Code(s): J96.01 - Acute respiratory failure with hypoxia Code(s): J96.91 - Respiratory failure, unspecified with hypoxia Status: Acute Assessment and Plan: Acute respiratory failure secondary to pneumonia * Found to be hypoxic on arrival requiring BiPAP, now weaned from BIpap. * ABG showed hypoxemia * CTA negative for PE * 10/26 maintaining O2 sats 90-93%% on 3L. * 10/27 maintaining sats 90-91% on 5L. * 10/27 15:40PM updated son Osmar who is considering transferring her to [facility] where visitors are allowed (2) COVID-19: Code(s): U07.1 - COVID-19 Status: Acute Assessment and Plan: Positive COVID test 10/18 (unvaccinated) * Continue dexamethasone (started on 10/23/2021) and defer remdesivir (family wishes). * Monitor inflammatory markers (3) Acute UTI: Code(s): N39.0 - Urinary tract infection, site not specified Status: Acute Assessment and Plan: Managed at last hospitalization * Urine culture 10/18/21 with growth of Klebsiella pneumoniae treated with ceftriaxone and transitioned to cefdinir on discharge * UA is improved * Continue IV Unasyn for uti and aspiration coverage * Patient afebrile and without leukocytosis (4) Pneumonia: Qualifiers: Pneumonia type: due to unspecified organism Laterality: bilateral Lung location: unspecified part of lung Qualified Code(s): J18.9 - Pneumonia, unspecified organism Code(s): J18.9 - Pneumonia, unspecified organism Status: Acute Assessment and Plan: CXR and CTA showed bilateral pneumonia * Aspiration pneumonia cannot be ruled out * Patient's son reported that patient is on a modified diet at skilled nursing. Minced and moist diet and thickened liquids. * ST evaluation 10/26 likely safe for pudding and applesauce * No MBS until 10/28 after quarantine ends per ST protocol (5) Elevated troponin: Code(s): R77.8 - Other specified abnormalities of plasma proteins Status: Acute Assessment and Plan: Troponin was mildly elevated up to 0.204 with downward trend * NO ACS * Likley due to COVID-19 (6) Acute renal insufficiency: Code(s): N28.9 - Disorder of kidney and ureter, unspecified Status: Acute Assessment and Plan: RESOLVED (7) Hypertension: Qualifiers: Hypertension type: unspecified Qualified Code(s): I10 - Essential (primary) hypertension Code(s): I10 - Essential (primary) hypertension Status: Acute Assessment and Plan: BP reviewed 10/27 and control adequate (8) Type 2 diabetes mellitus with hyperglycemia: Qualifiers: Diabetes mellitus detention insulin use: with detention use Qualified Code(s): E11.65 - Type 2 diabetes mellitus with hyperglycemia; Z79.4 - terminal supervisor (current) use of insulin Code(s): E11.65 - Type 2 diabetes mellitus with hyperglycemia Status: Acute Assessment and Plan: A1c is 6.1 BS reviewed 10/27 and control adequate (9) Multiple sclerosis: Code(s): G35 - Multiple sclerosis Status: Acute Assessment and Plan: Chronic, slowly pogressive (10) Dementia: Qualifiers: Dementia type: unspecified type Dementia behavioral disturbance: without behavioral disturbance Qualified Code(s): F03.90 - Unspecified dementia without behavio
--- NOTE | 2021-10-28 11:51 | PM.IMPN ---
Progress Note: A&P Assessment and Plan (1) Respiratory failure with hypoxia: Qualifiers: Chronicity: acute Qualified Code(s): J96.01 - Acute respiratory failure with hypoxia Code(s): J96.91 - Respiratory failure, unspecified with hypoxia Status: Acute Assessment and Plan: Acute respiratory failure secondary to pneumonia Found to be hypoxic on arrival requiring BiPAP, now weaned from BIpap. ABG showed hypoxemia CTA negative for PE 10/26 maintaining O2 sats 90-93%% on 3L. 10/27 maintaining sats 90-91% on 5L. 10/27 15:40PM updated son Osmar who is considering transferring her to [facility] where visitors are allowed (2) COVID-19: Code(s): U07.1 - COVID-19 Status: Acute Assessment and Plan: Positive COVID test 10/18 (unvaccinated) Continue dexamethasone (started on 10/23/2021) and defer remdesivir (family wishes). Monitor inflammatory markers (3) Acute UTI: Code(s): N39.0 - Urinary tract infection, site not specified Status: Acute Assessment and Plan: Managed at last hospitalization Urine culture 10/18/21 with growth of Klebsiella pneumoniae treated with ceftriaxone and transitioned to cefdinir on discharge UA is improved Continue IV Unasyn for uti and aspiration coverage Patient afebrile and without leukocytosis (4) Pneumonia: Qualifiers: Pneumonia type: due to unspecified organism Laterality: bilateral Lung location: unspecified part of lung Qualified Code(s): J18.9 - Pneumonia, unspecified organism Code(s): J18.9 - Pneumonia, unspecified organism Status: Acute Assessment and Plan: CXR and CTA showed bilateral pneumonia Aspiration pneumonia cannot be ruled out Patient's son reported that patient is on a modified diet at skilled nursing. Minced and moist diet and thickened liquids. ST evaluation 10/26 likely safe for pudding and applesauce No MBS until 10/28 after quarantine ends per ST protocol (5) Elevated troponin: Code(s): R77.8 - Other specified abnormalities of plasma proteins Status: Acute Assessment and Plan: Troponin was mildly elevated up to 0.204 with downward trend NO ACS Likley due to COVID-19 (6) Acute renal insufficiency: Code(s): N28.9 - Disorder of kidney and ureter, unspecified Status: Acute Assessment and Plan: RESOLVED (7) Hypertension: Qualifiers: Hypertension type: unspecified Qualified Code(s): I10 - Essential (primary) hypertension Code(s): I10 - Essential (primary) hypertension Status: Acute Assessment and Plan: BP reviewed 10/27 and control adequate (8) Type 2 diabetes mellitus with hyperglycemia: Qualifiers: Diabetes mellitus intermodal truck driver insulin use: with intermodal truck driver use Qualified Code(s): E11.65 - Type 2 diabetes mellitus with hyperglycemia; Z79.4 - intermodal truck driver (current) use of insulin Code(s): E11.65 - Type 2 diabetes mellitus with hyperglycemia Status: Acute Assessment and Plan: A1c is 6.1 BS reviewed 10/27 and control adequate (9) Multiple sclerosis: Code(s): G35 - Multiple sclerosis Status: Acute Assessment and Plan: Chronic, slowly pogressive (10) Dementia: Qualifiers: Dementia type: unspecified type Dementia behavioral disturbance: without behavioral disturbance Qualified Code(s): F03.90 - Unspecified dementia without behavioral disturbance Code(s): F03.90 - Unspecified dementia without behavioral disturbance Status: Acute Assessment and Plan: 10/27 Mental status at baseline as previously described by her son (11) Hypomagnesemia: Code(s): E83.42 - Hypomagnesemia Status: Acute Assessment and Plan: RESOLVED Additional Plan 10/28/21 Acute hypoxemic respiratory failure stable on 4 L Continue COVID-19 treatment w dexamethasone (patient's son/Clif MENDIOLA
[2021-10-28 12:25] LABS: Glucose Point of Care 161 mg/dl (65-105)
[2021-10-28 12:28] LABS: Basophils Percent Auto 0.1 % (0.2-1.2); Hematocrit 33.4 % (37.0-47.0); Hemoglobin 11.4 g/dL (12.0-15.0); Immature Granulocyte Absolute 0.04 K/mm3 (0.00-0.031); Immature Granulocyte Percent A 0.5 % (0-0.5); Lymphocytes Absolute Auto 0.27 K/mm3 (0.9-3.2); Lymphocytes Percent Auto 3.1 % (18.3-44.2); Mean Corpuscular HGB Conc 34.1 g/dl (32-36); Mean Corpuscular Hemoglobin 29.2 pg (26-34); Mean Corpuscular Volume 85.4 fl (80-100); Mean Platelet Volume 9.9 fl (7.4-10.4); Monocytes Absolute Auto 0.1 K/mm3 (0.1-0.6); Monocytes Percent Auto 1.6 % (2.6-8.5); Neutrophils Absolute Auto 8.3 K/mm3 (1.3-6.7); Neutrophils Percent Auto 94.7 % (45.5-73.1); Platelet Count Result 165 k/mm3 (150-375); Red Blood Count 3.91 M/mm3 (4.2-5.4); White Blood Count 8.7 K/mm3 (4.5-10.0)
[2021-10-28 12:41] LABS: D Dimer 1.01 ug/mL (<0.48)
[2021-10-28 12:48] LABS: Alanine Aminotransferase 21 U/L (4-35); Albumin Level 2.9 g/dL (3.5-5.1); Alkaline Phosphatase 67 U/L (38-126); Anion Gap 9 mmol/L (8-16); Aspartate Amino Transferase 25 U/L (14-36); Bilirubin,Total 0.7 mg/dL (0.2-1.3); Blood Urea Nitrogen 15 mg/dL (7-17); Calcium 8.2 mg/dL (8.4-10.2); Carbon Dioxide 20 mmol/L (22-30); Chloride 108 mmol/L (98-107); Estimated CRCL calculation 51 ml/min; Estimated Glomerular Filt Rate > 60; Glucose 188 mg/dL (65-110); Potassium 3.6 mmol/L (3.4-5.0); Sodium 137 mmol/L (137-145)
[2021-10-28 12:50] LABS: Anisocytosis 1+ (NORMAL); Ovalocytes 1+ (NORMAL); Platelet Estimate Adequate (Adequate)
[2021-10-28 13:52] LABS: Erythrocyte Sedimentation Rate > 140 mm/hr (0-20)
[2021-10-28] MEDS: INSULIN ASPART (*BKC) 100 UNITS/ML SUB-Q (17:37)
[2021-10-28 17:44] LABS: Glucose Point of Care 224 mg/dl (65-105)
[2021-10-28] MEDS: SODIUM CHLORIDE 0.9% IV 1,000 ML 50 ML IV CONT (19:33)
[2021-10-28 21:28] LABS: Glucose Point of Care 167 mg/dl (65-105)
[2021-10-29] VITALS: BP 126/89; PULSE 74; RESP 16; TEMP 36.4; O2SAT 91
[2021-10-29 04:00] VITALS: BP 150/83; PULSE 79; RESP 16; TEMP 36.1; O2SAT 90
[2021-10-29] MEDS: AMPICILLIN SULB 1.5 GM/NS 50ML 1.5 GM/50 ML VIAL IVPB ×4 (06:03→23:44)
[2021-10-29 07:13] LABS: CRP 1.5 mg/dL (<1.0); Lactate Dehydrogenase 501 U/L (313-618); Magnesium 1.4 mg/dL (1.6-2.3)
[2021-10-29 07:14] LABS: Basophils Percent Auto 0.2 % (0.2-1.2); Hematocrit 34.9 % (37.0-47.0); Hemoglobin 11.8 g/dL (12.0-15.0); Immature Granulocyte Absolute 0.05 K/mm3 (0.00-0.031); Immature Granulocyte Percent A 0.8 % (0-0.5); Lymphocytes Absolute Auto 0.42 K/mm3 (0.9-3.2); Lymphocytes Percent Auto 6.3 % (18.3-44.2); Mean Corpuscular HGB Conc 33.8 g/dl (32-36); Mean Corpuscular Hemoglobin 29.7 pg (26-34); Mean Corpuscular Volume 87.9 fl (80-100); Mean Platelet Volume 9.7 fl (7.4-10.4); Monocytes Absolute Auto 0.3 K/mm3 (0.1-0.6); Monocytes Percent Auto 3.8 % (2.6-8.5); Neutrophils Absolute Auto 5.9 K/mm3 (1.3-6.7); Neutrophils Percent Auto 88.9 % (45.5-73.1); Platelet Count Result 160 k/mm3 (150-375); Red Blood Count 3.97 M/mm3 (4.2-5.4); Red Cell Distribution Width 12.6 % (11.5-14.5); White Blood Count 6.7 K/mm3 (4.5-10.0)
[2021-10-29 07:23] LABS: D Dimer 0.95 ug/mL (<0.48)
[2021-10-29 07:56] LABS: Glucose Point of Care 130 mg/dl (65-105)
[2021-10-29 08:00] VITALS: BP 142/90; PULSE 82; RESP 18; TEMP 36.6; O2SAT 90
[2021-10-29] MEDS: ASPIRIN 81 MG CHEWABLE TABLET PO (10:04)
[2021-10-29 10:06] VITALS: PULSE 88
[2021-10-29] MEDS: METOPROLOL TARTRATE 25 MG TABLET PO (10:06)
[2021-10-29] MEDS: ENOXAPARIN 40 MG/0.4 ML SYRINGE SUB-Q (10:06)
--- NOTE | 2021-10-29 10:25 | PCSTNOTE ---
Bedside swallow evaluation order from 10/26 discontinued as patient requires Modified Barium Swallow study. MBS order from 10/26 cancelled as it was unable to be completed in a timely manner secondary to COVID positive status. New order requested for 10/29 to rule out aspiration.
[2021-10-29] MEDS: amLODIPine BESYLATE 5 MG TABLET 10 MG PO (11:58)
[2021-10-29] MEDS: lisinopriL 10 MG TABLET PO (11:58)
[2021-10-29 12:12] LABS: Glucose Point of Care 197 mg/dl (65-105)
[2021-10-29 16:48] LABS: Glucose Point of Care 262 mg/dl (65-105)
[2021-10-29] MEDS: INSULIN ASPART (*BKC) 100 UNITS/ML SUB-Q (16:59)
--- NOTE | 2021-10-29 18:26 | P.PNIM_ITS ---
Progress Note: A&P Assessment and Plan (1) Respiratory failure with hypoxia: Qualifiers: Chronicity: acute Qualified Code(s): J96.01 - Acute respiratory failure with hypoxia Code(s): J96.91 - Respiratory failure, unspecified with hypoxia Status: Acute Assessment and Plan: Acute respiratory failure secondary to pneumonia * Found to be hypoxic on arrival requiring BiPAP, now weaned from BIpap. * ABG showed hypoxemia * CTA negative for PE * 10/26 maintaining O2 sats 90-93%% on 3L. * 10/27 maintaining sats 90-91% on 5L. * 10/27 15:40PM updated son Osmar who is considering transferring her to [facility] where visitors are allowed (2) COVID-19: Code(s): U07.1 - COVID-19 Status: Acute Assessment and Plan: Positive COVID test 10/18 (unvaccinated) * Continue dexamethasone (started on 10/23/2021) and defer remdesivir (family wishes). * Monitor inflammatory markers (3) Acute UTI: Code(s): N39.0 - Urinary tract infection, site not specified Status: Acute Assessment and Plan: Managed at last hospitalization * Urine culture 10/18/21 with growth of Klebsiella pneumoniae treated with ceftriaxone and transitioned to cefdinir on discharge * UA is improved * Continue IV Unasyn for uti and aspiration coverage * Patient afebrile and without leukocytosis (4) Pneumonia: Qualifiers: Pneumonia type: due to unspecified organism Laterality: bilateral Lung location: unspecified part of lung Qualified Code(s): J18.9 - Pneumonia, unspecified organism Code(s): J18.9 - Pneumonia, unspecified organism Status: Acute Assessment and Plan: CXR and CTA showed bilateral pneumonia * Aspiration pneumonia cannot be ruled out * Patient's son reported that patient is on a modified diet at [facility]. Minced and moist diet and thickened liquids. * ST evaluation 10/26 likely safe for pudding and applesauce * No MBS until 10/28 after quarantine ends per ST protocol (5) Elevated troponin: Code(s): R77.8 - Other specified abnormalities of plasma proteins Status: Acute Assessment and Plan: Troponin was mildly elevated up to 0.204 with downward trend * NO ACS * Likley due to COVID-19 (6) Acute renal insufficiency: Code(s): N28.9 - Disorder of kidney and ureter, unspecified Status: Acute Assessment and Plan: RESOLVED (7) Hypertension: Qualifiers: Hypertension type: unspecified Qualified Code(s): I10 - Essential (primary) hypertension Code(s): I10 - Essential (primary) hypertension Status: Acute Assessment and Plan: BP reviewed 10/27 and control adequate (8) Type 2 diabetes mellitus with hyperglycemia: Qualifiers: Diabetes mellitus snf insulin use: with snf use Qualified Code(s): E11.65 - Type 2 diabetes mellitus with hyperglycemia; Z79.4 - intermission coordinator (current) use of insulin Code(s): E11.65 - Type 2 diabetes mellitus with hyperglycemia Status: Acute Assessment and Plan: A1c is 6.1 BS reviewed 10/27 and control adequate (9) Multiple sclerosis: Code(s): G35 - Multiple sclerosis Status: Acute Assessment and Plan: Chronic, slowly pogressive (10) Dementia: Qualifiers: Dementia type: unspecified type Dementia behavioral disturbance: without behavioral disturbance Qualified Code(s): F03.90 - Unspecified dementia without behavio
--- NOTE | 2021-10-29 18:26 | PM.IMPN ---
Progress Note: A&P Assessment and Plan (1) Respiratory failure with hypoxia: Qualifiers: Chronicity: acute Qualified Code(s): J96.01 - Acute respiratory failure with hypoxia Code(s): J96.91 - Respiratory failure, unspecified with hypoxia Status: Acute Assessment and Plan: Acute respiratory failure secondary to pneumonia Found to be hypoxic on arrival requiring BiPAP, now weaned from BIpap. ABG showed hypoxemia CTA negative for PE 10/26 maintaining O2 sats 90-93%% on 3L. 10/27 maintaining sats 90-91% on 5L. 10/27 15:40PM updated son Osmar who is considering transferring her to [facility] where visitors are allowed (2) COVID-19: Code(s): U07.1 - COVID-19 Status: Acute Assessment and Plan: Positive COVID test 10/18 (unvaccinated) Continue dexamethasone (started on 10/23/2021) and defer remdesivir (family wishes). Monitor inflammatory markers (3) Acute UTI: Code(s): N39.0 - Urinary tract infection, site not specified Status: Acute Assessment and Plan: Managed at last hospitalization Urine culture 10/18/21 with growth of Klebsiella pneumoniae treated with ceftriaxone and transitioned to cefdinir on discharge UA is improved Continue IV Unasyn for uti and aspiration coverage Patient afebrile and without leukocytosis (4) Pneumonia: Qualifiers: Pneumonia type: due to unspecified organism Laterality: bilateral Lung location: unspecified part of lung Qualified Code(s): J18.9 - Pneumonia, unspecified organism Code(s): J18.9 - Pneumonia, unspecified organism Status: Acute Assessment and Plan: CXR and CTA showed bilateral pneumonia Aspiration pneumonia cannot be ruled out Patient's son reported that patient is on a modified diet at correction. Minced and moist diet and thickened liquids. ST evaluation 10/26 likely safe for pudding and applesauce No MBS until 10/28 after quarantine ends per ST protocol (5) Elevated troponin: Code(s): R77.8 - Other specified abnormalities of plasma proteins Status: Acute Assessment and Plan: Troponin was mildly elevated up to 0.204 with downward trend NO ACS Likley due to COVID-19 (6) Acute renal insufficiency: Code(s): N28.9 - Disorder of kidney and ureter, unspecified Status: Acute Assessment and Plan: RESOLVED (7) Hypertension: Qualifiers: Hypertension type: unspecified Qualified Code(s): I10 - Essential (primary) hypertension Code(s): I10 - Essential (primary) hypertension Status: Acute Assessment and Plan: BP reviewed 10/27 and control adequate (8) Type 2 diabetes mellitus with hyperglycemia: Qualifiers: Diabetes mellitus medical detailist insulin use: with medical detailist use Qualified Code(s): E11.65 - Type 2 diabetes mellitus with hyperglycemia; Z79.4 - process control board operator (current) use of insulin Code(s): E11.65 - Type 2 diabetes mellitus with hyperglycemia Status: Acute Assessment and Plan: A1c is 6.1 BS reviewed 10/27 and control adequate (9) Multiple sclerosis: Code(s): G35 - Multiple sclerosis Status: Acute Assessment and Plan: Chronic, slowly pogressive (10) Dementia: Qualifiers: Dementia type: unspecified type Dementia behavioral disturbance: without behavioral disturbance Qualified Code(s): F03.90 - Unspecified dementia without behavioral disturbance Code(s): F03.90 - Unspecified dementia without behavioral disturbance Status: Acute Assessment and Plan: 10/27 Mental status at baseline as previously described by her son (11) Hypomagnesemia: Code(s): E83.42 - Hypomagnesemia Status: Acute Assessment and Plan: RESOLVED Additional Plan 10/28/21 Acute hypoxemic respiratory failure stable on 4 L Continue COVID-19 treatment w dexamethasone (patient's son/Clif MENDIOLA
[2021-10-29 21:43] VITALS: BP 136/70; PULSE 73; RESP 16; TEMP 36.4; O2SAT 93
[2021-10-29 22:08] LABS: Glucose Point of Care 206 mg/dl (65-105)
[2021-10-29] MEDS: SODIUM CHLORIDE 0.9% IV 1,000 ML 50 ML IV CONT (23:44)
[2021-10-30] MEDS: AMPICILLIN SULB 1.5 GM/NS 50ML 1.5 GM/50 ML VIAL IVPB ×3 (05:01→17:09)
[2021-10-30 05:46] VITALS: BP 140/66; PULSE 75; RESP 15; TEMP 36.2; O2SAT 90
[2021-10-30 08:08] LABS: Glucose Point of Care 156 mg/dl (65-105)
[2021-10-30] MEDS: ENOXAPARIN 40 MG/0.4 ML SYRINGE SUB-Q (10:14)
[2021-10-30] MEDS: METOPROLOL TARTRATE 25 MG TABLET PO ×2 (10:15→21:42)
[2021-10-30] MEDS: amLODIPine BESYLATE 5 MG TABLET 10 MG PO (10:15)
[2021-10-30] MEDS: lisinopriL 10 MG TABLET PO (10:15)
[2021-10-30] MEDS: ASPIRIN 81 MG CHEWABLE TABLET PO (10:15)
[2021-10-30 11:29] LABS: Glucose Point of Care 183 mg/dl (65-105)
[2021-10-30 13:31] VITALS: BMI 27.6
[2021-10-30 14:00] VITALS: BP 123/58; PULSE 69; RESP 18; TEMP 36.3; O2SAT 94
[2021-10-30 16:41] LABS: Glucose Point of Care 231 mg/dl (65-105)
[2021-10-30] MEDS: INSULIN ASPART (*BKC) 100 UNITS/ML SUB-Q (17:10)
--- NOTE | 2021-10-30 17:20 | PM.IMPN ---
Progress Note: A&P Assessment and Plan (1) Respiratory failure with hypoxia: Qualifiers: Chronicity: acute Qualified Code(s): J96.01 - Acute respiratory failure with hypoxia Code(s): J96.91 - Respiratory failure, unspecified with hypoxia Status: Acute Assessment and Plan: Acute respiratory failure secondary to pneumonia Found to be hypoxic on arrival requiring BiPAP, now weaned from BIpap. ABG showed hypoxemia CTA negative for PE 10/26 maintaining O2 sats 90-93%% on 3L. 10/27 maintaining sats 90-91% on 5L. 10/27 15:40PM updated son Osmar who is considering transferring her to [facility] in [place] where visitors are allowed Attempted to contact [facility] in [place]. Nobody picked up the phone. (2) COVID-19: Code(s): U07.1 - COVID-19 Status: Acute Assessment and Plan: Positive COVID test 10/18 (unvaccinated) Continue dexamethasone (started on 10/23/2021) and defer remdesivir (family wishes). Monitor inflammatory markers (3) Acute UTI: Code(s): N39.0 - Urinary tract infection, site not specified Status: Acute Assessment and Plan: Managed at last hospitalization Urine culture 10/18/21 with growth of Klebsiella pneumoniae treated with ceftriaxone and transitioned to cefdinir on discharge UA is improved Continue IV Unasyn for uti and aspiration coverage Patient afebrile and without leukocytosis (4) Pneumonia: Qualifiers: Pneumonia type: due to unspecified organism Laterality: bilateral Lung location: unspecified part of lung Qualified Code(s): J18.9 - Pneumonia, unspecified organism Code(s): J18.9 - Pneumonia, unspecified organism Status: Acute Assessment and Plan: CXR and CTA showed bilateral pneumonia Aspiration pneumonia cannot be ruled out Patient's son reported that patient is on a modified diet at [facility]. Minced and moist diet and thickened liquids. ST evaluation 10/26 likely safe for pudding and applesauce No MBS until 10/28 after quarantine ends per ST protocol (5) Elevated troponin: Code(s): R77.8 - Other specified abnormalities of plasma proteins Status: Acute Assessment and Plan: Troponin was mildly elevated up to 0.204 with downward trend NO ACS Likley due to COVID-19 (6) Acute renal insufficiency: Code(s): N28.9 - Disorder of kidney and ureter, unspecified Status: Acute Assessment and Plan: RESOLVED (7) Hypertension: Qualifiers: Hypertension type: unspecified Qualified Code(s): I10 - Essential (primary) hypertension Code(s): I10 - Essential (primary) hypertension Status: Acute Assessment and Plan: BP reviewed 10/27 and control adequate (8) Type 2 diabetes mellitus with hyperglycemia: Qualifiers: Diabetes mellitus intermediate insulin use: with intermediate use Qualified Code(s): E11.65 - Type 2 diabetes mellitus with hyperglycemia; Z79.4 - terminal makeup operator (current) use of insulin Code(s): E11.65 - Type 2 diabetes mellitus with hyperglycemia Status: Acute Assessment and Plan: A1c is 6.1 BS reviewed 10/27 and control adequate (9) Multiple sclerosis: Code(s): G35 - Multiple sclerosis Status: Acute Assessment and Plan: Chronic, slowly pogressive (10) Dementia: Qualifiers: Dementia type: unspecified type Dementia behavioral disturbance: without behavioral disturbance Qualified Code(s): F03.90 - Unspecified dementia without behavioral disturbance Code(s): F03.90 - Unspecified dementia without behavioral disturbance Status: Acute Assessment and Plan: 10/27 Mental status at baseline as previously described by her son (11) Hypomagnesemia: Code(s): E83.42 - Hypomagnesemia Status: Acute Assessment and Plan: RESOLVED Additional Plan 10/28/21 Acute hypoxemic respiratory f
--- NOTE | 2021-10-30 17:20 | P.PNIM_ITS ---
Progress Note: A&P Assessment and Plan (1) Respiratory failure with hypoxia: Qualifiers: Chronicity: acute Qualified Code(s): J96.01 - Acute respiratory failure with hypoxia Code(s): J96.91 - Respiratory failure, unspecified with hypoxia Status: Acute Assessment and Plan: Acute respiratory failure secondary to pneumonia * Found to be hypoxic on arrival requiring BiPAP, now weaned from BIpap. * ABG showed hypoxemia * CTA negative for PE * 10/26 maintaining O2 sats 90-93%% on 3L. * 10/27 maintaining sats 90-91% on 5L. * 10/27 15:40PM updated son Osmar who is considering transferring her to [facility] in [place] where visitors are allowed * Attempted to contact [facility] in [place]. Nobody picked up the phone. (2) COVID-19: Code(s): U07.1 - COVID-19 Status: Acute Assessment and Plan: Positive COVID test 10/18 (unvaccinated) * Continue dexamethasone (started on 10/23/2021) and defer remdesivir (family wishes). * Monitor inflammatory markers (3) Acute UTI: Code(s): N39.0 - Urinary tract infection, site not specified Status: Acute Assessment and Plan: Managed at last hospitalization * Urine culture 10/18/21 with growth of Klebsiella pneumoniae treated with ceftriaxone and transitioned to cefdinir on discharge * UA is improved * Continue IV Unasyn for uti and aspiration coverage * Patient afebrile and without leukocytosis (4) Pneumonia: Qualifiers: Pneumonia type: due to unspecified organism Laterality: bilateral Lung location: unspecified part of lung Qualified Code(s): J18.9 - Pneumonia, unspecified organism Code(s): J18.9 - Pneumonia, unspecified organism Status: Acute Assessment and Plan: CXR and CTA showed bilateral pneumonia * Aspiration pneumonia cannot be ruled out * Patient's son reported that patient is on a modified diet at [facility]. Minced and moist diet and thickened liquids. * ST evaluation 10/26 likely safe for pudding and applesauce * No MBS until 10/28 after quarantine ends per ST protocol (5) Elevated troponin: Code(s): R77.8 - Other specified abnormalities of plasma proteins Status: Acute Assessment and Plan: Troponin was mildly elevated up to 0.204 with downward trend * NO ACS * Likley due to COVID-19 (6) Acute renal insufficiency: Code(s): N28.9 - Disorder of kidney and ureter, unspecified Status: Acute Assessment and Plan: RESOLVED (7) Hypertension: Qualifiers: Hypertension type: unspecified Qualified Code(s): I10 - Essential (primary) hypertension Code(s): I10 - Essential (primary) hypertension Status: Acute Assessment and Plan: BP reviewed 10/27 and control adequate (8) Type 2 diabetes mellitus with hyperglycemia: Qualifiers: Diabetes mellitus snf insulin use: with snf use Qualified Code(s): E11.65 - Type 2 diabetes mellitus with hyperglycemia; Z79.4 - terminologist (current) use of insulin Code(s): E11.65 - Type 2 diabetes mellitus with hyperglycemia Status: Acute Assessment and Plan: A1c is 6.1 BS reviewed 10/27 and control adequate (9) Multiple sclerosis: Code(s): G35 - Multiple sclerosis Status: Acute Assessment and Plan: Chronic, slowly pogressive (10) Dementia: Qualifiers: Dementia type: unspecified type Dementia behavioral disturbance: w
[2021-10-30] MEDS: MAGNESIUM SULF 1 GM/D5W 100 ML 1 GM/100 ML BAG IVPB (18:01)
[2021-10-30 18:56] LABS: Basophils Percent Auto 0.2 % (0.2-1.2); Hematocrit 38.5 % (37.0-47.0); Immature Granulocyte Absolute 0.03 K/mm3 (0.00-0.031); Immature Granulocyte Percent A 0.5 % (0-0.5); Lymphocytes Absolute Auto 0.22 K/mm3 (0.9-3.2); Lymphocytes Percent Auto 3.9 % (18.3-44.2); Mean Corpuscular HGB Conc 33.8 g/dl (32-36); Mean Corpuscular Hemoglobin 29.2 pg (26-34); Mean Corpuscular Volume 86.5 fl (80-100); Monocytes Absolute Auto 0.1 K/mm3 (0.1-0.6); Monocytes Percent Auto 1.4 % (2.6-8.5); Neutrophils Absolute Auto 5.4 K/mm3 (1.3-6.7); Platelet Count Result 175 k/mm3 (150-375); Red Blood Count 4.45 M/mm3 (4.2-5.4); Red Cell Distribution Width 12.9 % (11.5-14.5); White Blood Count 5.7 K/mm3 (4.5-10.0)
[2021-10-30 19:07] LABS: Alanine Aminotransferase 27 U/L (4-35); Aspartate Amino Transferase 27 U/L (14-36); Estimated CRCL calculation 51 ml/min; Estimated Glomerular Filt Rate > 60
[2021-10-30 20:45] LABS: Glucose Point of Care 314 mg/dl (65-105)
[2021-10-30 21:32] VITALS: BP 137/62; PULSE 71; RESP 18; TEMP 35.9; O2SAT 93
[2021-10-30 21:42] VITALS: PULSE 71
[2021-10-30 22:13] VITALS: O2SAT 94
[2021-10-30] MEDS: SODIUM CHLORIDE 0.9% IV 1,000 ML 50 ML IV CONT (22:25)
--- NOTE | 2021-10-30 22:35 | PCRCNOTE ---
Pt. has CPAP at home, but does not wear often & refused in house unit
[2021-10-31 05:50] VITALS: BP 135/70; PULSE 66; RESP 18; TEMP 35.6; O2SAT 92
[2021-10-31 06:55] LABS: Hematocrit 35.1 % (37.0-47.0); Hemoglobin 11.8 g/dL (12.0-15.0); Immature Granulocyte Absolute 0.05 K/mm3 (0.00-0.031); Immature Granulocyte Percent A 1.1 % (0-0.5); Lymphocytes Absolute Auto 0.34 K/mm3 (0.9-3.2); Lymphocytes Percent Auto 7.3 % (18.3-44.2); Mean Corpuscular HGB Conc 33.6 g/dl (32-36); Mean Corpuscular Hemoglobin 28.6 pg (26-34); Mean Platelet Volume 9.9 fl (7.4-10.4); Monocytes Absolute Auto 0.2 K/mm3 (0.1-0.6); Monocytes Percent Auto 5.1 % (2.6-8.5); Neutrophils Percent Auto 86.5 % (45.5-73.1); Platelet Count Result 192 k/mm3 (150-375); Red Blood Count 4.13 M/mm3 (4.2-5.4); Red Cell Distribution Width 12.9 % (11.5-14.5); White Blood Count 4.7 K/mm3 (4.5-10.0)
[2021-10-31 07:05] LABS: Alanine Aminotransferase 21 U/L (4-35); Anion Gap -2 mmol/L (8-16); Aspartate Amino Transferase 23 U/L (14-36); Blood Urea Nitrogen 17 mg/dL (7-17); Calcium 8.6 mg/dL (8.4-10.2); Carbon Dioxide 28 mmol/L (22-30); Chloride 107 mmol/L (98-107); Estimated CRCL calculation 50 ml/min; Estimated Glomerular Filt Rate > 60; Glucose 176 mg/dL (65-110); Magnesium 1.8 mg/dL (1.6-2.3); Potassium 3.7 mmol/L (3.4-5.0); Sodium 133 mmol/L (137-145)
[2021-10-31 08:13] LABS: Glucose Point of Care 162 mg/dl (65-105)
[2021-10-31] MEDS: AMPICILLIN SULB 1.5 GM/NS 50ML 1.5 GM/50 ML VIAL IVPB ×4 (08:55→23:13)
[2021-10-31] MEDS: amLODIPine BESYLATE 5 MG TABLET 10 MG PO (08:56)
[2021-10-31] MEDS: ASPIRIN 81 MG CHEWABLE TABLET PO (08:56)
[2021-10-31] MEDS: ENOXAPARIN 40 MG/0.4 ML SYRINGE SUB-Q (08:56)
[2021-10-31] MEDS: METOPROLOL TARTRATE 25 MG TABLET PO ×2 (08:56→20:53)
[2021-10-31] MEDS: lisinopriL 10 MG TABLET PO (08:56)
--- NOTE | 2021-10-31 09:46 | PCRCNOTE ---
Home O2 eval unnecessary, pt resides in [facility].
--- NOTE | 2021-10-31 10:28 | P.PNIM_ITS ---
Progress Note: A&P Assessment and Plan (1) Respiratory failure with hypoxia: Qualifiers: Chronicity: acute Qualified Code(s): J96.01 - Acute respiratory failure with hypoxia Code(s): J96.91 - Respiratory failure, unspecified with hypoxia Status: Acute Assessment and Plan: Acute respiratory failure secondary to pneumonia * Found to be hypoxic on arrival requiring BiPAP, now weaned from BIpap. * ABG showed hypoxemia * CTA negative for PE * 10/26 maintaining O2 sats 90-93%% on 3L. * 10/27 maintaining sats 90-91% on 5L. * 10/27 15:40PM updated son Osmar who is considering transferring her to [facility] in [place] where visitors are allowed * Attempted to contact [facility] in [place]. Awaiting return call from physician line. (2) COVID-19: Code(s): U07.1 - COVID-19 Status: Acute Assessment and Plan: Positive COVID test 10/18 (unvaccinated) * Continue dexamethasone (started on 10/23/2021) and defer remdesivir (family wishes). * Monitor inflammatory markers (3) Acute UTI: Code(s): N39.0 - Urinary tract infection, site not specified Status: Acute Assessment and Plan: Managed at last hospitalization * Urine culture 10/18/21 with growth of Klebsiella pneumoniae treated with ceftriaxone and transitioned to cefdinir on discharge * UA is improved * Continue IV Unasyn for uti and aspiration coverage * Patient afebrile and without leukocytosis (4) Pneumonia: Qualifiers: Pneumonia type: due to unspecified organism Laterality: bilateral Lung location: unspecified part of lung Qualified Code(s): J18.9 - Pneumonia, unspecified organism Code(s): J18.9 - Pneumonia, unspecified organism Status: Acute Assessment and Plan: CXR and CTA showed bilateral pneumonia * Aspiration pneumonia cannot be ruled out * Patient's son reported that patient is on a modified diet at long term. Minced and moist diet and thickened liquids. * ST evaluation 10/26 likely safe for pudding and applesauce * No MBS until 10/28 after quarantine ends per ST protocol (5) Elevated troponin: Code(s): R77.8 - Other specified abnormalities of plasma proteins Status: Acute Assessment and Plan: Troponin was mildly elevated up to 0.204 with downward trend * NO ACS * Likley due to COVID-19 (6) Acute renal insufficiency: Code(s): N28.9 - Disorder of kidney and ureter, unspecified Status: Acute Assessment and Plan: RESOLVED (7) Hypertension: Qualifiers: Hypertension type: unspecified Qualified Code(s): I10 - Essential (primary) hypertension Code(s): I10 - Essential (primary) hypertension Status: Acute Assessment and Plan: BP reviewed 10/27 and control adequate (8) Type 2 diabetes mellitus with hyperglycemia: Qualifiers: Diabetes mellitus group home insulin use: with group home use Qualified Code(s): E11.65 - Type 2 diabetes mellitus with hyperglycemia; Z79.4 - alf (current) use of insulin Code(s): E11.65 - Type 2 diabetes mellitus with hyperglycemia Status: Acute Assessment and Plan: A1c is 6.1 BS reviewed 10/27 and control adequate (9) Multiple sclerosis: Code(s): G35 - Multiple sclerosis Status: Acute Assessment and Plan: Chronic, slowly pogressive (10) Dementia: Qualifiers: Dementia type: unspecified type Dementia behavioral dist
--- NOTE | 2021-10-31 10:28 | PM.IMPN ---
Progress Note: A&P Assessment and Plan (1) Respiratory failure with hypoxia: Qualifiers: Chronicity: acute Qualified Code(s): J96.01 - Acute respiratory failure with hypoxia Code(s): J96.91 - Respiratory failure, unspecified with hypoxia Status: Acute Assessment and Plan: Acute respiratory failure secondary to pneumonia Found to be hypoxic on arrival requiring BiPAP, now weaned from BIpap. ABG showed hypoxemia CTA negative for PE 10/26 maintaining O2 sats 90-93%% on 3L. 10/27 maintaining sats 90-91% on 5L. 10/27 15:40PM updated son Osmar who is considering transferring her to [facility] in [place] where visitors are allowed Attempted to contact [facility] in [place]. Awaiting return call from physician line. (2) COVID-19: Code(s): U07.1 - COVID-19 Status: Acute Assessment and Plan: Positive COVID test 10/18 (unvaccinated) Continue dexamethasone (started on 10/23/2021) and defer remdesivir (family wishes). Monitor inflammatory markers (3) Acute UTI: Code(s): N39.0 - Urinary tract infection, site not specified Status: Acute Assessment and Plan: Managed at last hospitalization Urine culture 10/18/21 with growth of Klebsiella pneumoniae treated with ceftriaxone and transitioned to cefdinir on discharge UA is improved Continue IV Unasyn for uti and aspiration coverage Patient afebrile and without leukocytosis (4) Pneumonia: Qualifiers: Pneumonia type: due to unspecified organism Laterality: bilateral Lung location: unspecified part of lung Qualified Code(s): J18.9 - Pneumonia, unspecified organism Code(s): J18.9 - Pneumonia, unspecified organism Status: Acute Assessment and Plan: CXR and CTA showed bilateral pneumonia Aspiration pneumonia cannot be ruled out Patient's son reported that patient is on a modified diet at [facility]. Minced and moist diet and thickened liquids. ST evaluation 10/26 likely safe for pudding and applesauce No MBS until 10/28 after quarantine ends per ST protocol (5) Elevated troponin: Code(s): R77.8 - Other specified abnormalities of plasma proteins Status: Acute Assessment and Plan: Troponin was mildly elevated up to 0.204 with downward trend NO ACS Likley due to COVID-19 (6) Acute renal insufficiency: Code(s): N28.9 - Disorder of kidney and ureter, unspecified Status: Acute Assessment and Plan: RESOLVED (7) Hypertension: Qualifiers: Hypertension type: unspecified Qualified Code(s): I10 - Essential (primary) hypertension Code(s): I10 - Essential (primary) hypertension Status: Acute Assessment and Plan: BP reviewed 10/27 and control adequate (8) Type 2 diabetes mellitus with hyperglycemia: Qualifiers: Diabetes mellitus senior care insulin use: with senior care use Qualified Code(s): E11.65 - Type 2 diabetes mellitus with hyperglycemia; Z79.4 - ferry terminal agent (current) use of insulin Code(s): E11.65 - Type 2 diabetes mellitus with hyperglycemia Status: Acute Assessment and Plan: A1c is 6.1 BS reviewed 10/27 and control adequate (9) Multiple sclerosis: Code(s): G35 - Multiple sclerosis Status: Acute Assessment and Plan: Chronic, slowly pogressive (10) Dementia: Qualifiers: Dementia type: unspecified type Dementia behavioral disturbance: without behavioral disturbance Qualified Code(s): F03.90 - Unspecified dementia without behavioral disturbance Code(s): F03.90 - Unspecified dementia without behavioral disturbance Status: Acute Assessment and Plan: 10/27 Mental status at baseline as previously described by her son (11) Hypomagnesemia: Code(s): E83.42 - Hypomagnesemia Status: Acute Assessment and Plan: RESOLVED Additional Plan 10/28/21 Acute hypoxemic
[2021-10-31 12:11] LABS: Glucose Point of Care 214 mg/dl (65-105)
[2021-10-31] MEDS: INSULIN ASPART (*BKC) 100 UNITS/ML SUB-Q ×2 (12:51→18:01)
[2021-10-31 14:58] VITALS: BP 136/46; PULSE 61; RESP 18; TEMP 36.8; O2SAT 96
[2021-10-31 16:54] LABS: Glucose Point of Care 240 mg/dl (65-105)
[2021-10-31] MEDS: PREGABALIN (*CRX) 75 MG CAPSULE 150 MG PO (18:02)
[2021-10-31 20:53] VITALS: PULSE 66
[2021-10-31] MEDS: MEMANTINE 10 MG TABLET PO (20:53)
[2021-10-31] MEDS: SODIUM CHLORIDE 0.9% IV 1,000 ML 50 ML IV CONT (20:55)
[2021-10-31 21:03] LABS: Glucose Point of Care 258 mg/dl (65-105)
[2021-10-31] MEDS: INSULIN GLARGINE (*BKC) 100 UNITS/ML 12 UNITS SUB-Q (21:06)
[2021-10-31] MEDS: IPRATROPIUM BR 0.02% INH SOLN 0.5 MG/2.5 ML VIAL INHALATION (21:51)
[2021-10-31 21:53] VITALS: BP 135/62; PULSE 66; RESP 16; TEMP 36.9; O2SAT 96
[2021-10-31 21:54] VITALS: PULSE 55; O2SAT 95
[2021-10-31 22:00] VITALS: PULSE 53
[2021-11-01] VITALS (11 sets, daily range): BP systolic 98–128; BP diastolic 44–60; PULSE 53–66; RESP 16; TEMP 36.4–36.6; O2SAT 92–99
[2021-11-01] MEDS: IPRATROPIUM BR 0.02% INH SOLN 0.5 MG/2.5 ML VIAL INHALATION ×2 (02:55→10:52)
[2021-11-01] MEDS: AMPICILLIN SULB 1.5 GM/NS 50ML 1.5 GM/50 ML VIAL IVPB ×3 (05:26→16:58)
[2021-11-01 07:42] LABS: Basophils Percent Auto 0.3 % (0.2-1.2); Eosinophils Percent Auto 0.3 % (0-4.4); Hematocrit 34.6 % (37.0-47.0); Hemoglobin 11.7 g/dL (12.0-15.0); Immature Granulocyte Absolute 0.02 K/mm3 (0.00-0.031); Immature Granulocyte Percent A 0.6 % (0-0.5); Lymphocytes Absolute Auto 0.32 K/mm3 (0.9-3.2); Lymphocytes Percent Auto 9.6 % (18.3-44.2); Mean Corpuscular HGB Conc 33.8 g/dl (32-36); Mean Corpuscular Hemoglobin 29.1 pg (26-34); Mean Corpuscular Volume 86.1 fl (80-100); Monocytes Absolute Auto 0.2 K/mm3 (0.1-0.6); Monocytes Percent Auto 5.4 % (2.6-8.5); Neutrophils Absolute Auto 2.8 K/mm3 (1.3-6.7); Neutrophils Percent Auto 83.8 % (45.5-73.1); Platelet Count Result 194 k/mm3 (150-375); Red Blood Count 4.02 M/mm3 (4.2-5.4); Red Cell Distribution Width 13.1 % (11.5-14.5); White Blood Count 3.3 K/mm3 (4.5-10.0)
[2021-11-01 07:52] LABS: Alanine Aminotransferase 21 U/L (4-35); Anion Gap 1 mmol/L (8-16); Aspartate Amino Transferase 20 U/L (14-36); Blood Urea Nitrogen 15 mg/dL (7-17); Calcium 8.5 mg/dL (8.4-10.2); Carbon Dioxide 26 mmol/L (22-30); Chloride 110 mmol/L (98-107); Estimated CRCL calculation 50 ml/min; Estimated Glomerular Filt Rate > 60; Glucose 136 mg/dL (65-110); Potassium 3.6 mmol/L (3.4-5.0); Sodium 137 mmol/L (137-145)
[2021-11-01] MEDS: CHOLECALCIFEROL 1,000 UNITS TABLET 5000 UNITS PO (08:24)
[2021-11-01] MEDS: ENOXAPARIN 40 MG/0.4 ML SYRINGE SUB-Q (08:24)
[2021-11-01] MEDS: METOPROLOL TARTRATE 25 MG TABLET PO ×2 (08:24→20:16)
[2021-11-01] MEDS: LORATADINE 10 MG TABLET PO (08:25)
[2021-11-01] MEDS: ASPIRIN 81 MG CHEWABLE TABLET PO (08:25)
[2021-11-01] MEDS: MEMANTINE 10 MG TABLET PO ×2 (08:25→21:45)
[2021-11-01] MEDS: PREGABALIN (*CRX) 75 MG CAPSULE 150 MG PO ×2 (08:25→16:57)
[2021-11-01] MEDS: amLODIPine BESYLATE 5 MG TABLET 10 MG PO (08:25)
[2021-11-01] MEDS: ATORVASTATIN 40 MG TABLET PO (08:25)
[2021-11-01] MEDS: lisinopriL 10 MG TABLET PO (08:25)
[2021-11-01] MEDS: DONEPEZIL HCL 10 MG TABLET PO (08:26)
[2021-11-01 08:53] LABS: Glucose Point of Care 133 mg/dl (65-105)
[2021-11-01 11:50] LABS: Glucose Point of Care 167 mg/dl (65-105)
--- NOTE | 2021-11-01 12:00 | P.PNIM_ITS ---
Progress Note: A&P Assessment and Plan (1) Respiratory failure with hypoxia: Qualifiers: Chronicity: acute Qualified Code(s): J96.01 - Acute respiratory failure with hypoxia Code(s): J96.91 - Respiratory failure, unspecified with hypoxia Status: Acute Assessment and Plan: Acute respiratory failure secondary to pneumonia * Found to be hypoxic on arrival requiring BiPAP, now weaned from BIpap. * ABG showed hypoxemia * CTA negative for PE * 10/26 maintaining O2 sats 90-93%% on 3L. * 10/27 maintaining sats 90-91% on 5L. * 10/27 15:40PM updated son Osmar who is considering transferring her to [facility] in [place] where visitors are allowed * Attempted to contact [facility] in [place]. Transfer rejected as patient would be placed on contact isolation there. (2) COVID-19: Code(s): U07.1 - COVID-19 Status: Acute Assessment and Plan: Positive COVID test 10/18 (unvaccinated) * Continue dexamethasone (started on 10/23/2021) and defer remdesivir (family wishes). * Monitor inflammatory markers (3) Acute UTI: Code(s): N39.0 - Urinary tract infection, site not specified Status: Acute Assessment and Plan: Managed at last hospitalization * Urine culture 10/18/21 with growth of Klebsiella pneumoniae treated with ceftriaxone and transitioned to cefdinir on discharge * UA is improved * Continue IV Unasyn for uti and aspiration coverage * Patient afebrile and without leukocytosis (4) Pneumonia: Qualifiers: Pneumonia type: due to unspecified organism Laterality: bilateral Lung location: unspecified part of lung Qualified Code(s): J18.9 - Pneumonia, unspecified organism Code(s): J18.9 - Pneumonia, unspecified organism Status: Acute Assessment and Plan: CXR and CTA showed bilateral pneumonia * Aspiration pneumonia cannot be ruled out * Patient's son reported that patient is on a modified diet at [facility]. Minced and moist diet and thickened liquids. * ST evaluation 10/26 likely safe for pudding and applesauce * No MBS until 10/28 after quarantine ends per ST protocol (5) Elevated troponin: Code(s): R77.8 - Other specified abnormalities of plasma proteins Status: Acute Assessment and Plan: Troponin was mildly elevated up to 0.204 with downward trend * NO ACS * Likley due to COVID-19 (6) Acute renal insufficiency: Code(s): N28.9 - Disorder of kidney and ureter, unspecified Status: Acute Assessment and Plan: RESOLVED (7) Hypertension: Qualifiers: Hypertension type: unspecified Qualified Code(s): I10 - Essential (primary) hypertension Code(s): I10 - Essential (primary) hypertension Status: Acute Assessment and Plan: BP reviewed 10/27 and control adequate (8) Type 2 diabetes mellitus with hyperglycemia: Qualifiers: Diabetes mellitus extermination supervisor insulin use: with extermination supervisor use Qualified Code(s): E11.65 - Type 2 diabetes mellitus with hyperglycemia; Z79.4 - watermelon harvesting supervisor (current) use of insulin Code(s): E11.65 - Type 2 diabetes mellitus with hyperglycemia Status: Acute Assessment and Plan: A1c is 6.1 BS reviewed 10/27 and control adequate (9) Multiple sclerosis: Code(s): G35 - Multiple sclerosis Status: Acute Assessment and Plan: Chronic, slowly pogressive (10) Dementia: Qualifiers: Dementia type: unspecified
--- NOTE | 2021-11-01 12:00 | PM.IMPN ---
Progress Note: A&P Assessment and Plan (1) Respiratory failure with hypoxia: Qualifiers: Chronicity: acute Qualified Code(s): J96.01 - Acute respiratory failure with hypoxia Code(s): J96.91 - Respiratory failure, unspecified with hypoxia Status: Acute Assessment and Plan: Acute respiratory failure secondary to pneumonia Found to be hypoxic on arrival requiring BiPAP, now weaned from BIpap. ABG showed hypoxemia CTA negative for PE 10/26 maintaining O2 sats 90-93%% on 3L. 10/27 maintaining sats 90-91% on 5L. 10/27 15:40PM updated son Osmar who is considering transferring her to [facility] in [place] where visitors are allowed Attempted to contact [facility] in [place]. Transfer rejected as patient would be placed on contact isolation there. (2) COVID-19: Code(s): U07.1 - COVID-19 Status: Acute Assessment and Plan: Positive COVID test 10/18 (unvaccinated) Continue dexamethasone (started on 10/23/2021) and defer remdesivir (family wishes). Monitor inflammatory markers (3) Acute UTI: Code(s): N39.0 - Urinary tract infection, site not specified Status: Acute Assessment and Plan: Managed at last hospitalization Urine culture 10/18/21 with growth of Klebsiella pneumoniae treated with ceftriaxone and transitioned to cefdinir on discharge UA is improved Continue IV Unasyn for uti and aspiration coverage Patient afebrile and without leukocytosis (4) Pneumonia: Qualifiers: Pneumonia type: due to unspecified organism Laterality: bilateral Lung location: unspecified part of lung Qualified Code(s): J18.9 - Pneumonia, unspecified organism Code(s): J18.9 - Pneumonia, unspecified organism Status: Acute Assessment and Plan: CXR and CTA showed bilateral pneumonia Aspiration pneumonia cannot be ruled out Patient's son reported that patient is on a modified diet at longterm. Minced and moist diet and thickened liquids. ST evaluation 10/26 likely safe for pudding and applesauce No MBS until 10/28 after quarantine ends per ST protocol (5) Elevated troponin: Code(s): R77.8 - Other specified abnormalities of plasma proteins Status: Acute Assessment and Plan: Troponin was mildly elevated up to 0.204 with downward trend NO ACS Likley due to COVID-19 (6) Acute renal insufficiency: Code(s): N28.9 - Disorder of kidney and ureter, unspecified Status: Acute Assessment and Plan: RESOLVED (7) Hypertension: Qualifiers: Hypertension type: unspecified Qualified Code(s): I10 - Essential (primary) hypertension Code(s): I10 - Essential (primary) hypertension Status: Acute Assessment and Plan: BP reviewed 10/27 and control adequate (8) Type 2 diabetes mellitus with hyperglycemia: Qualifiers: Diabetes mellitus usp insulin use: with termite renewal inspector use Qualified Code(s): E11.65 - Type 2 diabetes mellitus with hyperglycemia; Z79.4 - parts counterman (current) use of insulin Code(s): E11.65 - Type 2 diabetes mellitus with hyperglycemia Status: Acute Assessment and Plan: A1c is 6.1 BS reviewed 10/27 and control adequate (9) Multiple sclerosis: Code(s): G35 - Multiple sclerosis Status: Acute Assessment and Plan: Chronic, slowly pogressive (10) Dementia: Qualifiers: Dementia type: unspecified type Dementia behavioral disturbance: without behavioral disturbance Qualified Code(s): F03.90 - Unspecified dementia without behavioral disturbance Code(s): F03.90 - Unspecified dementia without behavioral disturbance Status: Acute Assessment and Plan: 10/27 Mental status at baseline as previously described by her son (11) Hypomagnesemia: Code(s): E83.42 - Hypomagnesemia Status: Acute Assessment and Plan: RESOLVED Additional
--- NOTE | 2021-11-01 13:18 | PCSTNOTE ---
On 11/01/21, the student, Elaine Mcadams, provided care and completed [employer] documentation on this patient. I have reviewed the student's documentation and agree with the findings.
--- NOTE | 2021-11-01 14:05 | PCNFU ---
Nutrition Follow-Up Complete: Inadequate oral intake related to covid, pneumonia, and respriatory failure as evidenced by reported intake of 10% and 0% Goal: Pt to meet 75% of estimated nutritional needs Pt is making little progress towards goal Pt current nutrition is Pureed, L4/carb consistent diet, thickened liquids, and dietary supplement Last recorded weight is 66.1 kg - down 2.4kg. Bowel Motility: +BM 10/30 reported Labs Reviewed:hgb 11.7, hct 34.6, Cl 110, Glu 133 Meds Noted: Norvasc, unasyn, lipitor, aricept, lovenox, atrovent, prinivil, claritin, namenda, lopressor, lyrica, vitamin D Skin: macerated posterior coccyx Additional Notes: Unable to visit with pt due to following COVID precautions. Spoke to nursing via phone who reports that pt has poor PO and is pocketing food. Pt completed MBS on 10/29/21 and results found pharyngeal dysphagia with laryngeal penetration. Current nutrition is a pureed, L4/carb consistent diet and moderately thickened liquids per Speech recommendations. Dietary supplement of Glucerna Shake - moderately thicken is providing an additional 220kcal and 10g of protein to increase caloric intake. Diet office has been notified. Agree with diet orders at this time. Will continue to follow. Will monitor labs, medication, wt, and reported intake every 3 days
[2021-11-01] MEDS: SODIUM CHLORIDE 0.9% IV 1,000 ML 50 ML IV CONT (16:56)
[2021-11-01 17:05] LABS: Glucose Point of Care 198 mg/dl (65-105)
[2021-11-01 20:08] LABS: Glucose Point of Care 215 mg/dl (65-105)
[2021-11-01] MEDS: INSULIN GLARGINE (*BKC) 100 UNITS/ML 12 UNITS SUB-Q (20:16)
--- NOTE | 2021-11-01 22:46 | PCRCNOTE ---
Window of time for administration has passed, see next available administration.
[2021-11-02] VITALS (8 sets, daily range): BP systolic 105; BP diastolic 50; PULSE 48–66; RESP 16–18; TEMP 36.1; O2SAT 97–100
[2021-11-02] MEDS: IPRATROPIUM BR 0.02% INH SOLN 0.5 MG/2.5 ML VIAL INHALATION ×2 (02:03→08:39)
[2021-11-02] MEDS: AMPICILLIN SULB 1.5 GM/NS 50ML 1.5 GM/50 ML VIAL IVPB ×3 (03:24→12:25)
[2021-11-02 06:25] LABS: Eosinophils Percent Auto 0.3 % (0-4.4); Hematocrit 32.4 % (37.0-47.0); Hemoglobin 10.7 g/dL (12.0-15.0); Immature Granulocyte Absolute 0.03 K/mm3 (0.00-0.031); Immature Granulocyte Percent A 0.8 % (0-0.5); Lymphocytes Absolute Auto 0.52 K/mm3 (0.9-3.2); Lymphocytes Percent Auto 13.8 % (18.3-44.2); Mean Corpuscular Hemoglobin 29.2 pg (26-34); Mean Corpuscular Volume 88.5 fl (80-100); Mean Platelet Volume 9.6 fl (7.4-10.4); Monocytes Absolute Auto 0.2 K/mm3 (0.1-0.6); Monocytes Percent Auto 5.3 % (2.6-8.5); Neutrophils Percent Auto 79.8 % (45.5-73.1); Platelet Count Result 172 k/mm3 (150-375); Red Blood Count 3.66 M/mm3 (4.2-5.4); Red Cell Distribution Width 13.4 % (11.5-14.5); White Blood Count 3.8 K/mm3 (4.5-10.0)
[2021-11-02 07:46] LABS: Alanine Aminotransferase 24 U/L (4-35); Anion Gap -1 mmol/L (8-16); Aspartate Amino Transferase 22 U/L (14-36); Blood Urea Nitrogen 18 mg/dL (7-17); Calcium 8.4 mg/dL (8.4-10.2); Carbon Dioxide 27 mmol/L (22-30); Chloride 110 mmol/L (98-107); Estimated CRCL calculation 45 ml/min; Estimated Glomerular Filt Rate > 60; Glucose 128 mg/dL (65-110); Potassium 3.8 mmol/L (3.4-5.0); Sodium 136 mmol/L (137-145)
[2021-11-02 08:17] LABS: Glucose Point of Care 112 mg/dl (65-105)
[2021-11-02] MEDS: ASPIRIN 81 MG CHEWABLE TABLET PO (09:52)
[2021-11-02] MEDS: ENOXAPARIN 40 MG/0.4 ML SYRINGE SUB-Q (09:53)
[2021-11-02] MEDS: DONEPEZIL HCL 10 MG TABLET PO (09:53)
[2021-11-02] MEDS: CHOLECALCIFEROL 1,000 UNITS TABLET 5000 UNITS PO (09:55)
[2021-11-02] MEDS: MEMANTINE 10 MG TABLET PO (09:56)
[2021-11-02] MEDS: LORATADINE 10 MG TABLET PO (09:56)
[2021-11-02] MEDS: ATORVASTATIN 40 MG TABLET PO (09:56)
--- NOTE | 2021-11-02 11:22 | P.DS_ITS ---
DS: Admitting Diagnosis Discharge Date COVID-19 infection Admitting Diagnosis Acute Respiratory failure with hypoxia COVID-19 infection UTI DS: Discharge Diagnosis Discharge Diagnosis (1) Respiratory failure with hypoxia: Qualifiers: Chronicity: acute Qualified Code(s): J96.01 - Acute respiratory failure with hypoxia Code(s): J96.91 - Respiratory failure, unspecified with hypoxia Status: Acute Assessment and Plan: Acute respiratory failure secondary to pneumonia * Found to be hypoxic on arrival requiring BiPAP, now weaned from BIpap. * ABG showed hypoxemia * CTA negative for PE * 10/26 maintaining O2 sats 90-93%% on 3L. * 10/27 maintaining sats 90-91% on 5L. * 10/27 15:40PM updated son Osmar who is considering transferring her to [facility] in [place] where visitors are allowed * Attempted to contact [facility] in [place]. Transfer rejected as patient would be placed on contact isolation there. (2) COVID-19: Code(s): U07.1 - COVID-19 Status: Acute Assessment and Plan: Positive COVID test 10/18 (unvaccinated) * Continue dexamethasone (started on 10/23/2021) and defer remdesivir (family wishes). * Monitor inflammatory markers (3) Acute UTI: Code(s): N39.0 - Urinary tract infection, site not specified Status: Acute Assessment and Plan: Managed at last hospitalization * Urine culture 10/18/21 with growth of Klebsiella pneumoniae treated with ceftriaxone and transitioned to cefdinir on discharge * UA is improved * Continue IV Unasyn for uti and aspiration coverage * Patient afebrile and without leukocytosis (4) Pneumonia: Qualifiers: Pneumonia type: due to unspecified organism Laterality: bilateral Lung location: unspecified part of lung Qualified Code(s): J18.9 - Pneumonia, unspecified organism Code(s): J18.9 - Pneumonia, unspecified organism Status: Acute Assessment and Plan: CXR and CTA showed bilateral pneumonia * Aspiration pneumonia cannot be ruled out * Patient's son reported that patient is on a modified diet at [facility]. Minced and moist diet and thickened liquids. * ST evaluation 10/26 likely safe for pudding and applesauce * No MBS until 10/28 after quarantine ends per ST protocol (5) Elevated troponin: Code(s): R77.8 - Other specified abnormalities of plasma proteins Status: Acute Assessment and Plan: Troponin was mildly elevated up to 0.204 with downward trend * NO ACS * Likley due to COVID-19 (6) Acute renal insufficiency: Code(s): N28.9 - Disorder of kidney and ureter, unspecified Status: Acute Assessment and Plan: RESOLVED (7) Hypertension: Qualifiers: Hypertension type: unspecified Qualified Code(s): I10 - Essential (primary) hypertension Code(s): I10 - Essential (primary) hypertension Status: Acute Assessment and Plan: BP reviewed 10/27 and control adequate (8) Type 2 diabetes mellitus with hyperglycemia: Qualifiers: Diabetes mellitus prison insulin use: with prison use Qualified Code(s): E11.65 - Type 2 diabetes mellitus with hyperglycemia; Z79.4 - [facility] (current) use of insulin Code(s): E11.65 - Type 2 diabetes mellitus with hyperglycemia Status: Acute Assessment and Plan: A1c is 6.1 BS reviewed 10/27 and control adequate (9) Multiple sclerosis: Code(s): G35 - Multiple scl
--- NOTE | 2021-11-02 11:22 | PM.DS ---
DS: Admitting Diagnosis Discharge Date COVID-19 infection Admitting Diagnosis Acute Respiratory failure with hypoxia COVID-19 infection UTI DS: Discharge Diagnosis Discharge Diagnosis (1) Respiratory failure with hypoxia: Qualifiers: Chronicity: acute Qualified Code(s): J96.01 - Acute respiratory failure with hypoxia Code(s): J96.91 - Respiratory failure, unspecified with hypoxia Status: Acute Assessment and Plan: Acute respiratory failure secondary to pneumonia Found to be hypoxic on arrival requiring BiPAP, now weaned from BIpap. ABG showed hypoxemia CTA negative for PE 10/26 maintaining O2 sats 90-93%% on 3L. 10/27 maintaining sats 90-91% on 5L. 10/27 15:40PM updated son Osmar who is considering transferring her to [facility] in [place] where visitors are allowed Attempted to contact [facility] in [place]. Transfer rejected as patient would be placed on contact isolation there. (2) COVID-19: Code(s): U07.1 - COVID-19 Status: Acute Assessment and Plan: Positive COVID test 10/18 (unvaccinated) Continue dexamethasone (started on 10/23/2021) and defer remdesivir (family wishes). Monitor inflammatory markers (3) Acute UTI: Code(s): N39.0 - Urinary tract infection, site not specified Status: Acute Assessment and Plan: Managed at last hospitalization Urine culture 10/18/21 with growth of Klebsiella pneumoniae treated with ceftriaxone and transitioned to cefdinir on discharge UA is improved Continue IV Unasyn for uti and aspiration coverage Patient afebrile and without leukocytosis (4) Pneumonia: Qualifiers: Pneumonia type: due to unspecified organism Laterality: bilateral Lung location: unspecified part of lung Qualified Code(s): J18.9 - Pneumonia, unspecified organism Code(s): J18.9 - Pneumonia, unspecified organism Status: Acute Assessment and Plan: CXR and CTA showed bilateral pneumonia Aspiration pneumonia cannot be ruled out Patient's son reported that patient is on a modified diet at [facility]. Minced and moist diet and thickened liquids. ST evaluation 10/26 likely safe for pudding and applesauce No MBS until 10/28 after quarantine ends per ST protocol (5) Elevated troponin: Code(s): R77.8 - Other specified abnormalities of plasma proteins Status: Acute Assessment and Plan: Troponin was mildly elevated up to 0.204 with downward trend NO ACS Likley due to COVID-19 (6) Acute renal insufficiency: Code(s): N28.9 - Disorder of kidney and ureter, unspecified Status: Acute Assessment and Plan: RESOLVED (7) Hypertension: Qualifiers: Hypertension type: unspecified Qualified Code(s): I10 - Essential (primary) hypertension Code(s): I10 - Essential (primary) hypertension Status: Acute Assessment and Plan: BP reviewed 10/27 and control adequate (8) Type 2 diabetes mellitus with hyperglycemia: Qualifiers: 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 use Qualified Code(s): E11.65 - Type 2 diabetes mellitus with hyperglycemia; 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 Code(s): E11.65 - Type 2 diabetes mellitus with hyperglycemia Status: Acute Assessment and Plan: A1c is 6.1 BS reviewed 10/27 and control adequate (9) Multiple sclerosis: Code(s): G35 - Multiple sclerosis Status: Acute Assessment and Plan: Chronic, slowly pogressive (10) Dementia: Qualifiers: Dementia type: unspecified type Dementia behavioral disturbance: without behavioral disturbance Qualified Code(s): F03.90 - Unspecified dementia without behavioral disturbance Code(s): F03.90 - Unspecified dementia without behavioral disturbance Status: Acute Assessment and Plan: 10/27 Mental status at baseline as previously describe
[2021-11-02 11:45] LABS: Glucose Point of Care 157 mg/dl (65-105)
[2021-11-02] MEDS: PREGABALIN (*CRX) 75 MG CAPSULE 150 MG PO (12:23)
[2021-11-02] MEDS: METOPROLOL TARTRATE 25 MG TABLET PO (12:25)
== END 2021-11-02 14:00 | DRG 177 ==
LOC: ANHED 05:24 → ANHIMU 06:36 → ANH3MEDSUR 10-25 19:05
PROVIDERS: Internal Medicine; Nurse Practitioner; Physician Assistant; Admitting Provider Internal Medicine; Emergency Provider Emergency Medicine; PCP Family Medicine; Visit Provider Hospitalist
DX: U07.1 COVID-19 (principal); J96.01 Acute respiratory failure with hypoxia; J69.0 Pneumonitis due to inhalation of food and vomit; J18.9 Pneumonia, unspecified organism; N39.0 Urinary tract infection, site not specified; E11.65 Type 2 diabetes mellitus with hyperglycemia; I10 Essential (primary) hypertension; G35 Multiple sclerosis; F03.90 Unspecified dementia, unspecified severity, without behavioral disturbance, psychotic disturbance, mood disturbance, and anxiety; E83.42 Hypomagnesemia; R13.10 Dysphagia, unspecified; N28.9 Disorder of kidney and ureter, unspecified; Z79.4 Long term (current) use of insulin
CPT/HCPCS: 36415; 36600; 51702; 71045; 71275; 80048; 80053; 81001; 82565; 82728; 82805; 82948; 83036; 83605; 83615; 83735; 83880; 84450; 84460; 84484; 85025; 85027; 85055; 85380; 85610; 85652; 85730; 86140; 87040; 92526; 92610; 92611; 93005; 93306; 94002; 94003; 94640; 96361; 96365; 96366; 96367; 96368; 96375; 97161; 99285; A9270; G0378; J0131; J0295; J0456; J0696; J1100; J1650; J1815; J3475; J7030; Q9967

== ENCOUNTER 2024-08-27 18:00 | Inpatient (IN) | payer MEDICARE, MEDICAID, SELFPAY ==
[2024-08-27] VITALS (14 sets, daily range): BP systolic 94–125; BP diastolic 36–91; PULSE 62–77; RESP 12–16; TEMP 34.2–36.6; O2SAT 95–100; BMI 29.5
--- NOTE | ~2024-08-27 | XR_ITS ---
EXAMINATION: XR chest 1V portable Exam Date/Time: 08/27/2024 19:19 GLUED WOOD TESTER HISTORY: Altered mental status Comparison: 10/30/2021. RESULT: Lines, tubes, and devices: Cholecystectomy clips. Lungs and pleura: Low volumes with crowding. Right hemidiaphragm elevation. Mild diffuse reticular o pacities. Cardiomediastinal silhouette: Stable. Other: No acute osseous or upper abdominal finding. IMPRESSION: Mild interstitial edema. Reviewed, dictated and finalized at location K. D WOOD TESTER IMPRESSION: Mild interstitial edema.
--- NOTE | ~2024-08-27 | CT_ITS ---
EXAMINATION: CT brain wo con DATE: 08/27/2024 19:47 INDICATION: Altered mental status . TECHNIQUE: Computed tomography (CT) of the head was performed without intravenous contrast. The mA wa s adjusted according to patient size. Iterative reconstruction technique was employed. The dose-lengt h product was 983.67 mGy-cm. COMPARISON: MRI brain 01/22/2010. FINDINGS: Mild motion artifact. No acute intracranial hemorrhage or extra-axial fluid collection. No hydrocephalus, mass, or herniation. No acute ischemic infarct. Unremarkable dural venous sinus attenuation. No acute osseous abnormality. The aerated spaces are clear. Moderate atrophy and chronic white matter change. Atherosclerotic intracranial calcification. IMPRESSION: No acute intracranial process. Reviewed, dictated and finalized at location K. AL BEHAVIOURIST
--- NOTE | ~2024-08-27 | XR_ITS ---
EXAMINATION: XR barium swallow modified DATE: 08/29/2024 09:46 INDICATION: Cough. TECHNIQUE: The patient was given barium-containing material of multiple consistencies to swallow by t he speech pathologist while I performed fluoroscopy. Fluoroscopy exposure time was 2.3 minutes. The n umber of fluoroscopy images saved to the PACS was 1. Dose-area product was 2.6 Gy-cm^2. FINDINGS: There is reduced laryngeal elevation and reduced tongue base retraction. There is laryngeal penetrati on with thin liquids. IMPRESSION: 1. Laryngeal penetration. 2. Please refer to the speech therapy report for recommendations. Reviewed, dictated and finalized at location A. NG INSPECTOR
--- NOTE | 2024-08-27 18:07 | ECG_ITS ---
Test Date: 2024-08-27 18:13:16 Measurements Intervals [place] Rate: 76 P: 44 IA: 166 QRS: 50 QRSD: 98 T: 28 QT: 407 QTc: 459 Interpretive Statements SINUS RHYTHM EARLY PRECORDIAL R/S TRANSITION NONSPECIFIC ST & T-WAVE ABNORMALITY- ANT/INF LEADS BASELINE ARTIFACT- V1 BORDERLINE ECG No previous ECG available for comparison Electronically Signed On 08-27-2024 21:55:39 PATIENT ACCESS SPECIALIST by Keron Mcneil D.O.
[2024-08-27] MEDS: SODIUM CHLORIDE 0.9% IV 1,000 ML 999 ML IV CONT ×2 (18:28→19:00)
[2024-08-27 18:32] LABS: Basophils Percent Auto 0.7 % (0.2-1.2); Eosinophils Absolute Auto 0.1 K/mm3 (0-0.3); Eosinophils Percent Auto 2.9 % (0-4.4); Hematocrit 37.3 % (37.0-47.0); Hemoglobin 12.4 g/dL (12.0-15.0); Immature Granulocyte Absolute 0.01 K/mm3 (0.00-0.031); Immature Granulocyte Percent A 0.3 % (0-0.5); Immature Platelet Fraction Pct 5.3 % (0.9-11.2); Lymphocytes Absolute Auto 0.97 K/mm3 (0.9-3.2); Lymphocytes Percent Auto 31.7 % (18.3-44.2); Mean Corpuscular HGB Conc 33.2 g/dl (32-36); Mean Corpuscular Volume 93.3 fl (80-100); Mean Platelet Volume 10.9 fl (7.4-10.4); Monocytes Absolute Auto 0.2 K/mm3 (0.1-0.6); Monocytes Percent Auto 6.9 % (2.6-8.5); Neutrophils Absolute Auto 1.8 K/mm3 (1.3-6.7); Neutrophils Percent Auto 57.5 % (45.5-73.1); Platelet Count Result 85 k/mm3 (150-375); Red Cell Distribution Width 15.1 % (11.5-14.5); White Blood Count 3.1 K/mm3 (4.5-10.0)
[2024-08-27 18:44] LABS: Lactic Acid Reflex 1.4 mmol/L (0.7-2.0)
[2024-08-27 18:45] LABS: Alanine Aminotransferase 25 U/L (6-35); Albumin Level 3.6 g/dL (3.5-5.1); Alkaline Phosphatase 181 U/L (38-126); Anion Gap 5 mmol/L (4-12); Aspartate Amino Transferase 28 U/L (14-36); Bilirubin,Total 0.6 mg/dL (0.2-1.3); Blood Urea Nitrogen 35 mg/dL (7-17); Calcium 9.3 mg/dL (8.4-10.2); Carbon Dioxide 24 mmol/L (22-30); Chloride 111 mmol/L (98-107); Estimated CRCL calculation 31 ml/min; Estimated Glomerular Filt Rate 39; Glucose 253 mg/dL (65-110); Potassium 4.5 mmol/L (3.4-5.0); Sodium 140 mmol/L (137-145)
[2024-08-27 18:54] LABS: CRP 3.1 mg/dL (<1.0)
[2024-08-27 18:55] LABS: INR 0.9; Partial Thromboplastin Time 32.5 Seconds (22.3-36.8); Prothrombin Time 12.5 Seconds (11.1-14.7); Troponin I < 0.012 ng/mL (0.000-0.034)
--- NOTE | 2024-08-27 19:09 | ED_ITS ---
HPI - Altered Mental Status General Chief Complaint: Altered Mental Status Stated Complaint: unresponsive Time Seen by Provider: 08/27/24 18:18 Source: EMS Mode of arrival: EMS Limitations: altered mental status History of Present Illness HPI narrative: HPI limited to the patient's altered mental status This is an 84-year-old female, with history of multiple sclerosis and dementia, brought in by EMS from her group home for unresponsiveness. EMS reports, per group home staff, the patient is typically alert and responsive at baseline. She was found today responsive minimally to tactile stimulus. The patient's blood glucose was reportedly 75, for which she was given glucagon with improvement to 130. On EMS arrival serum glucose was 228. EMS reports her pupils were pinpoint; she was given Narcan with no effect. She was also bradycardic to the 40s for which she received 1 mg of atropine with improvement to the 80s. The patient is DNR with limited interventions though no intubation. Related Data Home Medications Medication Instructions Recorded Confirmed Aspir-81 81 mg PO DAILY 10/18/21 07/13/24 Lactobacillus acidoph-L.bulgaricus 1 tablet PO BID 10/18/21 07/13/24 1 million cell tablet (Floranex) Tylenol 650 mg PO Q4-6H PRN Pain 10/18/21 07/13/24 amlodipine 10 mg tablet 10 mg PO DAILY 10/18/21 07/13/24 atorvastatin 40 mg tablet 40 mg PO DAILY 10/18/21 07/13/24 docusate sodium 100 mg capsule 100 mg PO BID 10/18/21 07/13/24 donepezil 10 mg tablet 10 mg PO DAILY 10/18/21 07/13/24 insulin glargine 100 unit/mL 15 unit subcut HS 10/18/21 07/13/24 subcutaneous cartridge lisinopril 10 mg tablet 10 mg PO DAILY 10/18/21 07/13/24 loratadine 10 mg capsule 10 mg PO DAILY 10/18/21 07/13/24 memantine 10 mg tablet (Namenda) 10 mg PO BID 10/18/21 07/13/24 metoprolol tartrate 25 mg tablet 25 mg PO BID 10/18/21 07/13/24 cholecalciferol (vitamin D3) 125 125 mcg PO DAILY 10/23/21 07/13/24 mcg (5,000 unit) tablet cranberry fruit 450 mg tablet 450 mg PO DAILY 10/23/21 07/13/24 (cranberry) cyanocobalamin (vitamin B-12) 1,000 mcg MONTHLY 10/23/21 07/13/24 1,000 mcg/mL injection syringe insulin aspart U-100 100 unit/mL 1 sliding scale dose subcut 10/23/21 07/13/24 subcutaneous solution (Novolog USEASDIRECTD U-100 Insulin aspart) insulin syringe-needle U-100 0.5 10/23/21 07/13/24 mL 29 gauge x 1/2 (Monoject Insulin Safety Syringe) magnesium gluconate 27 mg 27 mg PO BID 10/23/21 07/13/24 magnesium (500 mg) tablet (Mag-G) multivitamin,cl-qdvy-Ik-FA-min 1 tablet DAILY 10/23/21 07/13/24 nystatin 100,000 unit/gram topical 100,000 unit topical PRN PRN Rash 10/23/21 07/13/24 powder Allergies Allergy/AdvReac Type Severity Reaction Status Date / Time metronidazole Allergy Unknown Verified 10/18/21 13:52 Review of Systems Review of Systems: ROS unobtainable: Yes unobtainable due to mental status PMFSH Past Medical History Medical History Dementia Multiple sclerosis Neuropathy, diabetic Pneumonia due to COVID-19 virus Type 2 diabetes mellitus with hyperglycemia Surgical History Surgical History Surgical history unknown Social History Social History Social History: Ms. Santoyo resides in a group home for many years. She is a full code and her son Osmar is her surrogate decision maker. Information obtained from patient's son, Osmar. Smoking status: Unknown if ever smoked Alcohol intake: unknown Substance use: unknown Spiritual care concerns: No Exam Narrative: GENERAL: Well-developed, well-nourished, and in no acute distress. Withdrawals from pain HEAD: Normocephalic, atraumatic. EYES: PERRLA and EOMI. ENT: Nares clear, no rhinorrhea or epistaxis. Mucous membranes moist. Oropharynx without tonsillar hypertrophy exudate or other lesions. NECK: Supple. No JVD CHEST: Clear to auscultation. No respiratory distress. No wheezes rales or rhonchi HEART: Regular rate and rhythm. No murmur heard. Normal peripheral pulses. ABDOMEN: Soft, nontender, nondistended, normal active bowel sounds. : Normal external female genitalia. There is no noted erythema, induration or crepitus of the perineum EXTREMITIES: No edema. Normal passive range of motion SKIN: Warm, dry, no rash. NEURO: Withdrawals from pain, otherwise unresponsive. The patient is seen crossing her legs. Course Course Emergency Course: 18:18 - I have a strong suspicion for sepsis. Her EF was 60-65% per echocardiogram. Will give a 30ml/kg bolus and start cefepime (given her history of diabetes). 19:10 - I discussed the patient with her son and medical POA (Osmar Santoyo). At baseline, the patient is generally confused though responsive. She has had recurrent episodes of pneumonia and urinary tract infection. At this time, invasive procedures aside from intubation is approved. 20:10 - CBC demonstrates white blood cell count of 3.1 with normal hemoglobin hematocrit and thrombocytopenia with platelets of 85. Chemistries demonstrate elevated creatinine of 1.3 with a baseline of 0.7 and elevated glucose of 253. Lactic acid 1.4. Troponin negative. CRP elevated at 3.1. Urinalysis shows changes consistent with urinary tract infection. Chest x-ray demonstrates mild interstitial edema. CT head not concerning for acute intracranial process. EKG not concerning for ischemia. Will discussed patient with hospitalist for admission. 20:35 - I discussed patient with hospitalist, Dr. Morgan who accepts admission. Vital Signs Vital signs: Vital Signs Temperature 94.6 F L 08/27/24 17:57 Pulse Rate 77 08/27/24 17:57 Respiratory Rate 14 08/27/24 17:57 Blood Pressure 116/53 L 08/27/24 17:57 Pulse Oximetry 100 08/27/24 17:57 Oxygen Delivery Room Air 08/27/24 17:57 Temperature 94.7 F L 08/27/24 20:20 Pulse Rate 67 08/27/24 20:20 Respiratory Rate 14 08/27/24 20:20 Blood Pressure 108/62 08/27/24 20:20 Pulse Oximetry 100 08/27/24 20:20 Oxygen Delivery Room Air 08/27/24 18:55 MDM - Altered Mental Status MDM Narrative Medical decision making narrative: Plan: Sepsis protocol, labs, IV fluids, IV antibiotics, imaging, EKG, reassess Differential Diagnosis Differential diagnosis: Likely other (Intracranial, stroke, seizure, sepsis, U TI, pneumonia, drug/alcohol intoxication, metabolic abnormality, other) Lab Data 08/27/24 18:24 08/27/24 18:24 Labs: Lab Results 08/27/24 08/27/24 08/27/24 Range/Units 18:24 18:53 19:18 WBC 3.1 L (4.5-10.0) K/mm3 RBC 4.00 L (4.2-5.4) M/mm3 Hgb 12.4 (12.0-15.0) g/dL Hct 37.3 (37.0-47.0) % MCV 93.3 (80-100) fl MCH 31.0 (26-34) pg MCHC 33.2 (32-36) g/dl RDW 15.1 H (11.5-14.5) % Plt Count 85 L D (150-375) k/mm3 MPV 10.9 H (7.4-10.4) fl Immature Gran % (Auto) 0.3 (0-0.5) % Neut % (Auto) 57.5 (45.5-73.1) % Lymph % (Auto) 31.7 (18.3-44.2) % [place] % (Auto) 6.9 (2.6-8.5) % Eos % (Auto) 2.9 (0-4.4) % Baso % (Auto) 0.7 (0.2-1.2) % Lymph # (Auto) 0.97 (0.9-3.2) K/mm3 [place] # (Auto) 0.2 (0.1-0.6) K/mm3 Eos # (Auto) 0.1 (0-0.3) K/mm3 Baso # (Auto) 0.0 (0.0-0.1) K/mm3 Abs Immat Gran (auto) 0.01 (0.00-0.031) K/mm3 Absolute Neuts (auto) 1.8 (1.3-6.7) K/mm3 Absolute Nucleated RBC 0.000 (0.0-0.012) K/mm3 Nucleated RBC % 0.0 (0.0-0.2) % % Immature Plt Fraction 5.3 (0.9-11.2) % PT 12.5 (11.1-14.7) Seconds INR 0.9 APTT 32.5 (22.3-36.8) Seconds Sodium 140 (137-145) mmol/L Potassium 4.5 (3.4-5.0) mmol/L Chloride 111 H (98-107) mmol/L Carbon Dioxide 24 (22-30) mmol/L Anion Gap 5 (4-12) mmol/L BUN 35 H D (7-17) mg/dL Creatinine 1.30 H (0.7-1.0) mg/dL Estim Creat Clear Calc 31 ml/min Estimated GFR 39 L (59 - ) Glucose 253 H (65-110) mg/dL POC Capillary Glucose 197 H (65-105) mg/dl Lactic Acid 1.4 (0.7-2.0) mmol/L Calcium 9.3 (8.4-10.2) mg/dL Total Bilirubin 0.6 (0.2-1.3) mg/dL AST 28 (14-36) U/L ALT 25 (6-35) U/L Alkaline Phosphatase 181 H (38-126) U/L Troponin I < 0.012 (0.000-0.034) ng/mL C-Reactive Protein 3.1 H (<1.0) mg/dL Total Protein 6.0 L (6.3-8.2) g/dL Albumin 3.6 (3.5-5.1) g/dL Urine Color Yellow (Yellow) Urine Appearance Cloudy H (Clear) Urine pH 5.5 (5.0-9.0) Ur Specific [place] 1.019 (1.001-1.035) Urine Protein Trace (Negative) mg/dL Urine Glucose (UA) 1+ H (Negative) mg/dL Urine Ketones Negative (Negative) mg/dL Ur Blood (Man) 2+ H (Negative) Urine Nitrate Positive H (Negative) Urine Bilirubin Negative (Negative) Urine Urobilinogen 1.0 (<2.0) mg/dL Add Ur Microanalysis Reviewed Leukocyte Esterase Rfl 3+ H (Negative) KASANDRA/UL Urine RBC 11-20 H (0-2) /hpf Urine WBC >100 H (0-3) /hpf Ur Squamous Epith Cells Moderate (Few) /hpf Urine Bacteria 3+ H /hpf ECG Data EKG #1: Attestation: I personally reviewed and interpreted this ECG as follows: ECG completion date: 08/27/24 ECG completion time: 18:13 Interpretation: Sinus rhythm, rate 76, normal axis, no ST segment elevations or T-wave inversions concerning for ischemia, normal intervals with QTC 459 Discharge Plan Discharge Clinical Impression: Acute UTI, TON (acute kidney injury) Sepsis Qualifiers: Sepsis type: sepsis due to unspecified organism Sepsis acute organ dysfunction status: with acute organ dysfunction Severe sepsis acute organ dysfunction type: acute renal failure Acute renal failure type: unspecified Severe sepsis shock status: with septic shock Qualified Code(s): A41.9 - Sepsis, unspecified organism Patient Disposition: Still a Patient Condition: Serious Prescriptions: No Action cyanocobalamin (vitamin B-12) 1,000 mcg/mL Syringe 1,000 mcg MONTHLY cranberry 450 mg Tablet 450 mg PO DAILY multivitamin,ae-jnee-Ws-FA-min Tablet 1 tablet DAILY magnesium gluconate [Mag-G] 27 mg magnesium (500 mg) Tablet 27 mg PO BID insulin aspart U-100 [Novolog U-100 Insulin aspart] 100 unit/mL Solution 1 sliding scale dose SUBCUT USEASDIRECTD Rx Instructions: LUNCH AND BEDTIME 2 UNTIS 150-200 4 UNTIS 201-250 6 UNTIS 251-300 8 UNITS 301-350 10 UNTIS 351-400 nystatin 100,000 unit/gram powder 100,000 unit TOPICAL PRN PRN (Reason: Rash) (DME) insulin syringe-needle U-100 [Monoject Insulin Safety Syring] 0.5 mL 29 gauge x 1/2 syringe MISCELLANEOUS cholecalciferol (vitamin D3) 125 mcg (5,000 unit) Tablet 125 mcg PO DAILY amoxicillin-pot clavulanate [Augmentin] 500-125 mg tablet 1 tablet PO Q12H Qty: 14 0RF Aspir-81 81 mg PO DAILY atorvastatin 40 mg Tablet 40 mg PO DAILY donepezil 10 mg Tablet 10 mg PO DAILY amlodipine 10 mg Tablet 10 mg PO DAILY lisinopril 10 mg Tablet 10 mg PO DAILY docusate sodium 100 mg Capsule 100 mg PO BID memantine [Namenda] 10 mg Tablet 10 mg PO BID metoprolol tartrate 25 mg Tablet 25 mg PO BID insulin glargine 100 unit/mL Cartridge 15 unit SUBCUT HS Lactobacillus acidoph-L.bulgar [Floranex] 1 million cell Tablet 1 tablet PO BID loratadine 10 mg Capsule 10 mg PO DAILY Tylenol 650 mg PO Q4-6H PRN (Reason: Pain) pregabalin [Lyrica] 150 mg capsule 150 mg PO BID Qty: 60 5RF Follow-up/Referrals: Hong Stoddard MD [Primary Care Provider] -
[2024-08-27 19:11] LABS: Add Urine Microscopic? YES; Appearance Urine Cloudy (Clear); Bacteria Urine 3+ /hpf; Bilirubin Urine Negative (Negative); Blood Urine 2+ (Negative); Color Urine Yellow (Yellow); Glucose Urine UA 1+ mg/dL (Negative); Ketones Urine Negative (Negative); Leukocyte Esterase Ur 3+ LEU/UL (Negative); Need Manual Microscopic Reviewed; Nitrate Urine Positive (Negative); Protein Urine Trace mg/dL (Negative); Specific Grav Ur 1.019 (1.001-1.035); Squamous Epithelial Cell Urine Moderate /hpf (Few); WBC Urine >100 /hpf (0-3); pH Urine 5.5 (5.0-9.0)
[2024-08-27] MEDS: SODIUM CHLORIDE 0.9% IV 500 ML 999 ML IV CONT (19:12)
[2024-08-27] MEDS: CEFEPIME 2 GM/NS 50 ML 2 GM/50 ML BAG IVPB (19:14)
--- NOTE | 2024-08-27 19:19 | PC.NURSE ---
bedside glucose is 197 at this time
[2024-08-27 19:22] LABS: Glucose Point of Care 197 mg/dl (65-105)
[2024-08-27 20:50] LABS: Glucose Point of Care 159 mg/dl (65-105)
--- NOTE | 2024-08-27 21:22 | P.HP_ITS ---
H&P: HPI History of Present Illness Date/Time: 08/27/24 21:22 Chief Complaint: Unresponsive Narrative: 84-year-old female with a past medical history of multiple sclerosis, dementia, hyperlipidemia, diabetes mellitus, and peripheral neuropathy who presented to the [place] [facility] to unresponsive state. Facility check the patient's blood sugar and found blood glucose to be 70 gave the patient gl ucagon. Her glucose went up to 130. When EMS arrived to the facility patient's glucose was 228 and with patient arrived to our facility she was in the 180s. EMS noted the patient had pinpoint pupils and gave the patient Narcan with no response. Patient was mildly bradycardic with heart rate in the 40s at the facility in EMS gave atropine with improvement in heart rate up to the 80s. According to the ER provider family reports that the patient is usually alert oriented to self only but is usually conversational in able to interact and respond. On arrival to ER patient was noted to be profoundly hypothermic with temperature of 93.6?. The patient would respond to painful stimuli or noxious stimuli by closing her eyes tightly. She would pick upper legs and cross her legs but then would not follow commands. After patient arrived to the floor she was more alert and pleasantly confused. She responded to her name and was able to squeeze my hands but was distracted by her IV. She tells nursing staff that she is 23 or 24 years old. She told me that channel 5 was on the screen but the patient was in her room for the TV was turned off and she was laying back and looking at the ceiling. Patient's son reported to the staff that the patient has had dementia for many years (onset before 2009) and is usually pleasantly conversant but completely disoriented at baseline. Soda appears the patient is back at her baseline mentation after hypothermia resolved. Source of information comes from ER physician report, nursing report and review of limited medical records available within the system. Patient is not able to participate in history process due to her advanced dementia. Review of Systems Review of Systems: ROS unobtainable: Yes unobtainable due to medical condition and unobtainable due to mental status PMFSH Past Medical History Medical History Dementia Multiple sclerosis Neuropathy, diabetic Pneumonia due to COVID-19 virus Type 2 diabetes mellitus with hyperglycemia Surgical History Surgical History Surgical history unknown Family History Family History (Updated 08/28/24 @ 02:01 by Izaebl Morgan DO) Other Unknown family medical history Social History Social History Social History: Ms. Santoyo resides in a residential for many years. She is a full code and her son Osmar is her surrogate decision maker. Information obtained from patient's son, Osmar. Smoking status: Unknown if ever smoked Alcohol intake: unknown Substance use: unknown Spiritual care concerns: No Meds Home Medications and Allergies Home Medications Medication Instructions Recorded Confirmed Type Aspir-81 81 mg PO DAILY 10/18/21 08/27/24 History amlodipine 10 mg tablet 5 mg PO DAILY 10/18/21 08/27/24 History atorvastatin 40 mg tablet 40 mg PO DAILY 10/18/21 08/27/24 History donepezil 10 mg tablet 10 mg PO DAILY 10/18/21 08/27/24 History lisinopril 10 mg tablet 10 mg PO DAILY 10/18/21 08/27/24 History memantine 10 mg tablet (Namenda) 10 mg PO BID 10/18/21 08/27/24 History metoprolol tartrate 25 mg tablet 25 mg PO BID 10/18/21 08/27/24 History cholecalciferol (vitamin D3) 125 125 mcg PO DAILY 10/23/21 08/27/24 History mcg (5,000 unit) tablet cranberry fruit 450 mg tablet 450 mg PO DAILY 10/23/21 08/27/24 History (cranberry) cyanocobalamin (vitamin B-12) 1,000 mcg MONTHLY 10/23/21 08/27/24 History 1,000 mcg/mL injection syringe insulin syringe-needle U-100 0.5 10/23/21 08/27/24 History mL 29 gauge x 1/2 (Monoject Insulin Safety Syringe) multivitamin,ll-scmb-Qa-FA-min 1 tablet DAILY 10/23/21 08/27/24 History pregabalin 150 mg capsule (Lyrica) 150 mg PO BID #60 caps 04/25/24 08/27/24 Rx Saccharomyces boulardii 250 mg 250 mg PO BID 08/27/24 08/28/24 History capsule cetirizine 10 mg tablet 10 mg PO DAILY 08/27/24 08/27/24 History dextran 70-hypromellose (PF) 0.1 2 drp TID 08/27/24 08/27/24 History %-0.3 % eye drops in a dropperette (GenTeal Tears Moderate (PF)) insulin aspart (niacinamide) 1 sliding scale dose subcut BID 08/27/24 08/27/24 History (U-100) 100 unit/mL subcutaneous solution (Fiasp U-100 Insulin) insulin glargine 100 unit/mL (3 35 unit subcut HS 08/27/24 08/27/24 History mL) subcutaneous pen (Basaglar KwikPen U-100 Insulin) magnesium hydroxide 400 mg/5 mL 30 ml PO DAILY PRN Constipation 08/27/24 08/27/24 History oral suspension (Milk of Magnesia) magnesium oxide 400 mg PO DAILY 08/27/24 08/27/24 History Allergies Allergy/AdvReac Type Severity Reaction Status Date / Time metronidazole Allergy Unknown Verified 10/18/21 13:52 Vital Signs Vital Signs - 24 hr 08/27/24 17:57 08/27/24 18:55 08/27/24 18:55 Temperature 94.6 F L Pulse Rate 77 74 Respiratory Rate 14 Blood Pressure 116/53 L Pulse Oximetry 100 100 Oxygen Delivery Room Air Room Air 08/27/24 18:16 08/27/24 18:34 08/27/24 18:46 Temperature 93.6 F L Pulse Rate 75 71 75 Respiratory Rate 12 12 13 Blood Pressure 104/53 L 94/46 L 109/57 L Pulse Oximetry 99 100 Oxygen Delivery 08/27/24 19:05 08/27/24 19:16 08/27/24 20:13 Temperature 94.0 F L 93.9 F L 94.5 F L Pulse Rate 74 76 74 Respiratory Rate 12 14 12 Blood Pressure 107/47 L 125/66 102/91 H Pulse Oximetry 96 97 100 Oxygen Delivery 08/27/24 20:20 08/27/24 21:00 Temperature 94.7 F L 95.9 F L Pulse Rate 67 66 Respiratory Rate 14 12 Blood Pressure 108/62 117/44 L Pulse Oximetry 100 95 Oxygen Delivery Exam Narrative: Weight 80.5 kg BMI 29.5 Const: Other: No acute distress, overweight, appears stated age HENMT: Other: Head is normocephalic atraumatic, mucous membranes are dry, no oral pharyngeal erythema, crowded posterior oropharynx, edentulous in upper and lower jaw Eyes: Other: Pupils are equal and reactive 5-6 mm, no scleral icterus, mild conjunctival erythema Neck: Other: Large neck circumference, no JVD, no lymphadenopathy Resp: Other: Clear to auscultation bilaterally, no increased work of breathing Cardio: Other: Regular rate, regular rhythm, 2+ bilateral radial pedal pulses, no JVD, murmur noted GI: Other: Obese, soft, nontender, no suprapubic tenderness, positive bowel sounds Skin: Other: Generalized pallor, non jaundice, no petechiae Neuro: Other: Alert oriented to name only, speech is clear, no obvious facial asymmetry, tremor of the left hand, slowed responses to external stimuli, moves all extremities equally Extrem: Other: Nonpitting edema to the feet, no clubbing, no cyanosis, 5/5 siding applicator strength on the right patient has difficulty following commands for siding applicator strength on the left moves both feet equally but unable to follow commands for testing strength of lower extremities Psych: Other: Pleasantly confused, cooperative, poor judgment and insight H&P: Results Labs Labs: Laboratory Tests 08/27/24 18:24 08/27/24 18:24 08/27/24 08/27/24 08/27/24 18:24 18:53 19:18 WBC 3.1 L RBC 4.00 L Hgb 12.4 Hct 37.3 MCV 93.3 MCH 31.0 MCHC 33.2 RDW 15.1 H Plt Count 85 L D MPV 10.9 H Immature Gran % (Auto) 0.3 Neut % (Auto) 57.5 Lymph % (Auto) 31.7 [place] % (Auto) 6.9 Eos % (Auto) 2.9 Baso % (Auto) 0.7 Lymph # (Auto) 0.97 [place] # (Auto) 0.2 Eos # (Auto) 0.1 Baso # (Auto) 0.0 Abs Immat Gran (auto) 0.01 Absolute Neuts (auto) 1.8 Absolute Nucleated RBC 0.000 Nucleated RBC % 0.0 % Immature Plt Fraction 5.3 PT 12.5 INR 0.9 APTT 32.5 Sodium 140 Potassium 4.5 Chloride 111 H Carbon Dioxide 24 Anion Gap 5 BUN 35 H D Creatinine 1.30 H Estim Creat Clear Calc 31 Estimated GFR 39 L Glucose 253 H POC Capillary Glucose 197 H Lactic Acid 1.4 Calcium 9.3 Total Bilirubin 0.6 AST 28 ALT 25 Alkaline Phosphatase 181 H Troponin I < 0.012 C-Reactive Protein 3.1 H Total Protein 6.0 L Albumin 3.6 Urine Color Yellow Urine Appearance Cloudy H Urine pH 5.5 Ur Specific [place] 1.019 Urine Protein Trace Urine Glucose (UA) 1+ H Urine Ketones Negative Ur Blood (Man) 2+ H Urine Nitrate Positive H Urine Bilirubin Negative Urine Urobilinogen 1.0 Add Ur Microanalysis Reviewed Leukocyte Esterase Rfl 3+ H Urine RBC 11-20 H Urine WBC >100 H Ur Squamous Epith Cells Moderate Urine Bacteria 3+ H 08/27/24 08/27/24 08/27/24 20:47 22:01 23:38 WBC RBC Hgb Hct MCV MCH MCHC RDW Plt Count MPV Immature Gran % (Auto) Neut % (Auto) Lymph % (Auto) [place] % (Auto) Eos % (Auto) Baso % (Auto) Lymph # (Auto) [place] # (Auto) Eos # (Auto) Baso # (Auto) Abs Immat Gran (auto) Absolute Neuts (auto) Absolute Nucleated RBC Nucleated RBC % % Immature Plt Fraction PT INR APTT Sodium Potassium Chloride Carbon Dioxide Anion Gap BUN Creatinine Estim Creat Clear Calc Estimated GFR Glucose POC Capillary Glucose 159 H 127 H 82 Lactic Acid Calcium Total Bilirubin AST ALT Alkaline Phosphatase Troponin I C-Reactive Protein Total Protein Albumin Urine Color Urine Appearance Urine pH Ur Specific [place] Urine Protein Urine Glucose (UA) Urine Ketones Ur Blood (Man) Urine Nitrate Urine Bilirubin Urine Urobilinogen Add Ur Microanalysis Leukocyte Esterase Rfl Urine RBC Urine WBC Ur Squamous Epith Cells Urine Bacteria Impressions Chest X-Ray 08/27/24 19:49 (personally reviewed and interpreted) IMPRESSION: Mild interstitial edema. Head CT 08/27/24 19:53 IMPRESSION: No acute intracranial process. EKG: Personally reviewed and interpreted rate 76 normal sinus rhythm QTC 459 nonspecific T-wave abnormalities, early R to S transition Assessment and Plan Assessment and plan (1) Sepsis: Qualifiers: Acute renal failure type: unspecified Sepsis acute organ dysfunction status: with acute organ dysfunction Sepsis type: sepsis due to unspecified organism Severe sepsis acute organ dysfunction type: acute renal failure Severe sepsis shock status: with septic shock Qualified Code(s): A41.9 - S epsis, unspecified organism; R65.21 - Severe sepsis with septic shock; N17.9 - Acute kidney failure, unspecified Code(s): A41.9 - Sepsis, unspecified organism Status: Acute (2) Acute UTI: Code(s): N39.0 - Urinary tract infection, site not specified Status: Acute (3) Hypothermia: Qualifiers: Encounter type: initial encounter Qualified Code(s): T68.XXXA - Hypothermia, initial encounter Code(s): T68.XXXA - Hypothermia, initial encounter Status: Acute (4) TON (acute kidney injury): Code(s): N17.9 - Acute kidney failure, unspecified Status: Acute (5) Dementia: Qualifiers: Dementia type: unspecified type Dementia behavioral disturbance: without behavioral disturbance Qualified Code(s): F03.90 - Unspecified dementia without behavioral disturbance Code(s): F03.90 - Unspecified dementia, unspecified severity, without behavioral disturbance, psychotic disturbance, mood disturbance, and anxiety Status: Acute (6) Sinus bradycardia: Code(s): R00.1 - Bradycardia, unspecified Status: Acute (7) Altered mental status: Qualifiers: Altered mental status type: stupor Qualified Code(s): R40.1 - Stupor Code(s): R41.82 - Altered mental status, unspecified Status: Acute Plan The patient presented with acute severe sepsis due to likely UTI complicated by hypothermia and acute kidney injury. Patient's hypothermia has resolved after being placed on a Trev Hugger. She has urine the suspicious for UTI is been started on empiric antibiotic therapy with cefepime. Will narrow coverage depending on urine results. Blood cultures are pending. Will continue IV fluid hydration and repeat electrolyte panel in a.m.. Will monitor strict I&O's and daily weights. Will repeat CBC and electrolyte panel in a.m.. Will avoid nephrotoxic medications in the setting of acute kidney injury acute kidney injury likely due to sepsis and UTI. Patient has chronic leukopenia but has acute thrombocytopenia likely due to underlying infection. Will repeat CBC in a.m. no obvious evidence of petechiae or bruising on exam that would be be considered pathologic. The patient did have bradycardia on presentation likely due to hypothermia. Bradycardia has since resolved. However the with like to hold the patient's met oprolol for now as her blood pressure is currently at the lower end of normal and I am sure she did not receive her evening blood pressure medications. Will continue patient's home Norvasc and lisinopril. Will continue patient's home dementia medications. Quality VTE Prophylaxis VTE prophylaxis: mechanical ordered (SCDs) Hospitalist MIPS Advance Care Plan I have confirmed that the patient's Advanced Care Plan is present, code status is documented, or surrogate decision maker is listed in patient medical record.: Yes Medication Reconciliation I have utilized all available resources to obtain, update and review the patients current medications (includes all prescriptions, OTC, herbals, cannab is, and nutritional supplements).: Yes
[2024-08-27] MEDS: SODIUM CHLORIDE 0.9% IV 1,000 ML 100 ML IV CONT (22:00)
[2024-08-27 22:03] LABS: Glucose Point of Care 127 mg/dl (65-105)
--- NOTE | 2024-08-27 22:06 | ADMGEN ---
This patient, Emelina Santoyo, was admitted to IMU Room 205-01. Patient/family oriented to hospital policies and general routines including ID bracelet, bed and alarms, visiting hours, pain management, procedures, bathroom and other care routines, personal items, smoking policy, room service/diet, and visiting hours. Report received from Ursula TYSON. Patient not sent with any retirement paperwork Information on how to activate the Rapid Response Team has been discussed. Patient/Family are encouraged to report perceived risks to care and to ask questions if they do not understand what they are told or what they should do.
[2024-08-27 23:47] LABS: Glucose Point of Care 82 mg/dl (65-105)
[2024-08-28] VITALS (18 sets, daily range): BP systolic 102–127; BP diastolic 42–81; PULSE 58–71; RESP 16–18; TEMP 36.5–37.3; O2SAT 95–100
[2024-08-28 04:23] LABS: Basophils Percent Auto 0.2 % (0.2-1.2); Eosinophils Absolute Auto 0.1 K/mm3 (0-0.3); Hematocrit 34.6 % (37.0-47.0); Hemoglobin 11.1 g/dL (12.0-15.0); Immature Granulocyte Absolute 0.01 K/mm3 (0.00-0.031); Immature Granulocyte Percent A 0.2 % (0-0.5); Immature Platelet Fraction Pct 4.6 % (0.9-11.2); Lymphocytes Absolute Auto 1.15 K/mm3 (0.9-3.2); Lymphocytes Percent Auto 28.5 % (18.3-44.2); Mean Corpuscular HGB Conc 32.1 g/dl (32-36); Mean Corpuscular Hemoglobin 30.3 pg (26-34); Mean Corpuscular Volume 94.5 fl (80-100); Mean Platelet Volume 11.1 fl (7.4-10.4); Monocytes Absolute Auto 0.3 K/mm3 (0.1-0.6); Monocytes Percent Auto 6.2 % (2.6-8.5); Neutrophils Absolute Auto 2.5 K/mm3 (1.3-6.7); Neutrophils Percent Auto 62.9 % (45.5-73.1); Platelet Count Result 82 k/mm3 (150-375); Red Blood Count 3.66 M/mm3 (4.2-5.4)
[2024-08-28 04:34] LABS: Anion Gap 2 mmol/L (4-12); Blood Urea Nitrogen 27 mg/dL (7-17); Calcium 8.7 mg/dL (8.4-10.2); Carbon Dioxide 22 mmol/L (22-30); Chloride 119 mmol/L (98-107); Estimated CRCL calculation 37 ml/min; Estimated Glomerular Filt Rate 48; Glucose 92 mg/dL (65-110); Potassium 4.7 mmol/L (3.4-5.0); Sodium 143 mmol/L (137-145)
[2024-08-28 05:22] LABS: Glucose Point of Care 89 mg/dl (65-105)
[2024-08-28 08:05] LABS: Glucose Point of Care 86 mg/dl (65-105)
[2024-08-28] MEDS: SODIUM CHLORIDE 0.9% IV 1,000 ML 100 ML IV CONT ×2 (08:43→18:57)
[2024-08-28] MEDS: ASPIRIN 81 MG ENTERIC TABLET PO (08:44)
[2024-08-28] MEDS: DONEPEZIL HCL 10 MG TABLET PO (08:44)
[2024-08-28] MEDS: CHOLECALCIFEROL 5,000 UNITS TABLET 5000 UNITS PO (08:44)
[2024-08-28] MEDS: ATORVASTATIN 40 MG TABLET PO (08:44)
[2024-08-28] MEDS: amLODIPine BESYLATE 5 MG TABLET PO (08:44)
[2024-08-28] MEDS: lisinopriL 10 MG TABLET PO (08:44)
[2024-08-28] MEDS: MAGNESIUM OXIDE 400 MG TABLET PO (08:44)
[2024-08-28] MEDS: LORATADINE 10 MG TABLET PO (08:44)
[2024-08-28] MEDS: MEMANTINE 10 MG TABLET PO ×2 (08:44→20:02)
[2024-08-28] MEDS: PREGABALIN (*CRX) 75 MG CAPSULE 150 MG PO (08:45)
[2024-08-28] MEDS: SACCHAROMYCES BOULARDII 250 MG CAPSULE PO (08:45)
--- NOTE | 2024-08-28 12:05 | PCSTNOTE ---
Please refer to the Bedside Swallow Evaluation in the EMR. Please note, silent aspiration cannot be ruled out at bedside.
[2024-08-28 12:26] LABS: Glucose Point of Care 188 mg/dl (65-105)
--- NOTE | 2024-08-28 16:18 | P.PNIM_ITS ---
Progress Note: A&P Assessment and Plan (1) Sepsis: Qualifiers: Acute renal failure type: unspecified Sepsis acute organ dysfunction status: with acute organ dysfunction Sepsis type: sepsis due to unspecified or ganism Severe sepsis acute organ dysfunction type: acute renal failure Severe sepsis shock status: with septic shock Qualified Code(s): A41.9 - Sepsis, unspecified organism; R65.21 - Severe sepsis with septic shock; N17.9 - Acute kidney failure, unspecified Code(s): A41.9 - Sepsis, unspecified organism Status: Acute (2) Acute UTI: Code(s): N39.0 - Urinary tract infection, site not specified Status: Acute (3) Hypothermia: Qualifiers: Encounter type: initial encounter Qualified Code(s): T68.XXXA - Hypothermia, initial encounter Code(s): T68.XXXA - Hypothermia, initial encounter Status: Acute (4) OTN (acute kidney injury): Code(s): N17.9 - Acute kidney failure, unspecified Status: Acute (5) Dementia: Qualifiers: Dementia type: unspecified type Dementia behavioral disturbance: without behavioral disturbance Qualified Code(s): F03.90 - Unspecified dementia without behavioral disturbance Code(s): F03.90 - Unspecified dementia, unspecified severity, without behavioral disturbance, psychotic disturbance, mood disturbance, and anxiety Status: Acute (6) Sinus bradycardia: Code(s): R00.1 - Bradycardia, unspecified Status: Acute (7) Altered mental status: Qualifiers: Altered mental status type: stupor Qualified Code(s): R40.1 - Stupor Code(s): R41.82 - Altered mental status, unspecified Status: Acute Plan UTI monitor urine culture Continue abx Hypothermia resolved, s/p bear hugger TON resolved Cr 1.3, repeat 1.1 patient having adequate oral intake Thrombocytopenia Plts 82 monitor Dementia continue home meds DVT prophylaxis on SCDS, no AC due to thrombocytopenia Subjective Date/time seen: 08/28/24 16:18 Interval history: patient comfortable at bedside Review of Systems Review of Systems: ROS unobtainable: Yes unobtainable due to medical condition and unobtainable due to mental status Exam Narrative: Weight 80.5 kg BMI 29.5 Const: Other: No acute distress, overweight, appears stated age HENMT: Other: Head is normocephalic atraumatic, mucous membranes are dry, no oral pharyngeal erythema, crowded posterior oropharynx, edentulous in upper and lower jaw Eyes: Other: Pupils are equal and reactive 5-6 mm, no scleral icterus, mild conjunctival erythema Neck: Other: Large neck circumference, no JVD, no lymphadenopathy Resp: Other: Clear to auscultation bilaterally, no increased work of breathing Cardio: Other: Regular rate, regular rhythm, 2+ bilateral radial pedal pulses, no JVD, murmur noted GI: Other: Obese, soft, nontender, no suprapubic tenderness, positive bowel sounds Skin: Other: Generalized pallor, non jaundice, no petechiae Neuro: Other: Alert oriented to name only, speech is clear, no obvious facial asymmetry, tr emor of the left hand, slowed responses to external stimuli, moves all extremities equally Extrem: Other: Nonpitting edema to the feet, no clubbing, no cyanosis, 5/5 supervisor hot dip tinning strength on the right patient has difficulty following commands for supervisor hot dip tinning strength on the left moves both feet equally but unable to follow commands for testing strength of lower extremities Psych: Other: Pleasantly confused, cooperative, poor judgment and insight Objective Data Vital Signs Vital Signs: Vital Signs - 24 hr 08/27/24 17:57 08/27/24 18:55 08/27/24 18:55 Temperature 94.6 F L Pulse Rate 77 74 Respiratory Rate 14 Blood Pressure 116/53 L Pulse Oximetry 100 100 Oxygen Delivery Room Air Room Air Fraction of Inspired Oxygen 08/27/24 18:16 08/27/24 18:34 08/27/24 18:46 Temperature 93.6 F L Pulse Rate 75 71 75 Respiratory Rate 12 12 13 Blood Pressure 104/53 L 94/46 L 109/57 L Pulse Oximetry 99 100 Oxygen Delivery Fraction of Inspired Oxygen 08/27/24 19:05 08/27/24 19:16 08/27/24 20:13 Temperature 94.0 F L 93.9 F L 94.5 F L Pulse Rate 74 76 74 Respiratory Rate 12 14 12 Blood Pressure 107/47 L 125/66 102/91 H Pulse Oximetry 96 97 100 Oxygen Delivery Fraction of Inspired Oxygen 08/27/24 20:20 08/27/24 21:00 08/27/24 22:05 Temperature 94.7 F L 95.9 F L 97.7 F Pulse Rate 67 66 Respiratory Rate 14 12 Blood Pressure 108/62 117/44 L Pulse Oximetry 100 95 Oxygen Delivery Fraction of Inspired Oxygen 08/27/24 21:50 08/27/24 23:05 08/27/24 23:05 Temperature 97.7 F Pulse Rate 62 65 Respiratory Rate 14 Blood Pressure 114/87 Pulse Oximetry 95 Oxygen Delivery Room Air Fraction of Inspired Oxygen 08/27/24 23:59 08/28/24 00:00 08/28/24 00:25 Temperature 97.9 F Pulse Rate 64 61 63 Respiratory Rate 16 Blood Pressure 108/36 L 127/54 L Pulse Oximetry 97 Oxygen Delivery Fraction of Inspired Oxygen 08/28/24 02:00 08/28/24 03:49 08/28/24 04:00 Temperature Pulse Rate 65 63 Respiratory Rate Blood Pressure Pulse Oximetry Oxygen Delivery Room Air Fraction of Inspired Oxygen 08/28/24 04:00 08/28/24 06:00 08/28/24 07:31 Temperature 99.1 F 98.9 F Pulse Rate 65 64 65 Respiratory Rate 16 16 Blood Pressure 115/43 L 102/81 Pulse Oximetry 99 100 Oxygen Delivery Fraction of Inspired Oxygen 08/28/24 08:45 08/28/24 11:22 08/28/24 08:00 Temperature 97.7 F Pulse Rate 62 62 Respiratory Rate 18 Blood Pressure 107/44 L Pulse Oximetry 100 97 Oxygen Delivery Room Air Fraction of Inspired Oxygen 21 08/28/24 10:00 08/28/24 12:00 08/28/24 14:00 Temperature Pulse Rate 60 61 58 L Respiratory Rate Blood Pressure Pulse Oximetry Oxygen Delivery Fraction of Inspired Oxygen 08/28/24 15:54 Temperature 98.9 F Pulse Rate 71 Respiratory Rate 18 Blood Pressure 113/42 L Pulse Oximetry 95 Oxygen Delivery Fraction of Inspired Oxygen Intake/Output Intake/Output: Intake & Output 08/25/24 08/26/24 08/27/24 08/28/24 23:59 23:59 23:59 23:59 Intake Total 2550 1530 Output Total 1050 Balance 2550 480 Meds/Results Medications: Active Medications Generic Name Dose Route Start Last Admin Trade Name Freq PRN Reason Stop Dose Admin Acetaminophen 650 mg 08/27/24 20:37 Acetaminophen 650 Mg Suppository RECTAL Q6H PRN Mild Pain (1-3) or Fever Amlodipine Besylate 5 mg 08/28/24 09:00 08/28/24 08:44 Amlodipine Besylate 5 Mg Tablet PO 5 mg DAILY ELVIRA Administration Artificial Tears 1 drop 08/28/24 01:52 Artificial Tears Ophth Soln 15 Ml Bottle EACH EYE QID PRN Dry Eye(s) Aspirin 81 mg 08/28/24 09:00 08/28/24 08:44 Aspirin 81 Mg Enteric Tablet PO 81 mg QAM ELVIRA Administration Atorvastatin Calcium 40 mg 08/28/24 09:00 08/28/24 08:44 Atorvastatin 40 Mg Tablet PO 40 mg DAILY ELVIRA Administration Dextrose 12.5 gm 08/28/24 00:50 Dextrose 50% 25 Gm/50 Ml Syringe IV PUSH PRN PRN Hypoglycemia Protocol Donepezil HCl 10 mg 08/28/24 09:00 08/28/24 08:44 Donepezil Hcl 10 Mg Tablet PO 10 mg DAILY [facility]VIRA Administration Glucagon 1 mg 08/28/24 00:50 Glucagon For Inj 1 Mg Vial IM PRN PRN Hypoglycemia Protocol Glucose 15 gm 08/28/24 00:50 Glucose Oral Gel 15 Gm Of Glucse In 37.5 Gm Tube PO PRN PRN Hypoglycemia Protocol Cefepime HCl 1 gm in 50 mls @ 100 mls/hr 08/28/24 19:00 Maxipime 1 Gm/Ns 50 Ml IVPB Q24H ELVIRA Sodium Chloride 1,000 mls @ 100 mls/hr 08/27/24 21:20 08/28/24 08:43 Normal Saline Iv IV CONT 100 mls/hr .Q10H ELVIRA Administration Dextrose 1,000 mls @ 100 mls/hr 08/28/24 00:50 Dextrose 5% 1,000 Ml IVPB PRN PRN Hypoglycemia Protocol Insulin Aspart 2 - 5 units 08/28/24 08:00 08/28/24 12:16 Insulin Aspart (*Bkc) 100 Units/Ml SUB-Q Not Given [facility] Protocol Insulin Aspart 1 - 2 units 08/28/24 21:00 Insulin Aspart (*Bkc) 100 Units/Ml SUB-Q HS [facility] Protocol Insulin Glargine 20 units 08/28/24 21:00 Insulin Glargine (*Bkc) 100 Units/Ml SUB-Q HS [facility] Lisinopril 10 mg 08/28/24 09:00 08/28/24 08:44 Lisinopril 10 Mg Tablet PO 10 mg DAILY EL[facility]A Administration Loratadine 10 mg 08/28/24 09:00 08/28/24 08:44 Loratadine 10 Mg Tablet PO 10 mg QAM [facility] Administration Magnesium Hydroxide 30 ml 08/28/24 01:51 Magnesium Hydroxide Susp 30 Ml Udc PO DAILY PRN Constipation Magnesium Oxide 400 mg 08/28/24 09:00 08/28/24 08:44 Magnesium Oxide 400 Mg Tablet PO 400 mg DAILY ELV[facility]A Administration Memantine 10 mg 08/28/24 09:00 08/28/24 08:44 Memantine 10 Mg Tablet PO 10 mg Q12HR [facility] Administration Pregabalin 150 mg 08/28/24 09:00 08/28/24 08:45 Pregabalin (*Crx) 75 Mg Capsule PO 150 mg BID ELVIRA Administration Saccharomyces Boulardii 250 mg 08/28/24 09:00 08/28/24 08:45 Saccharomyces Boulardii 250 Mg Capsule PO 250 mg BID EL[facility]A Administration Vitamin D 5,000 units 08/28/24 09:00 08/28/24 08:44 Cholecalciferol 5,000 Units Tablet PO 5,000 units DAILY ELVIRA Administration Radiology Results: ITS Impressions Chest X-Ray 08/27/24 19:49 IMPRESSION: Mild interstitial edema. Head CT 08/27/24 19:53 IMPRESSION: No acute intracranial process. Labs Labs: Laboratory Results - last 24 hr 08/27/24 08/27/24 08/27/24 18:24 18:53 19:18 WBC 3.1 L RBC 4.00 L Hgb 12.4 Hct 37.3 MCV 93.3 MCH 31.0 MCHC 33.2 RDW 15.1 H Plt Count 85 L D MPV 10.9 H Immature Gran % (Auto) 0.3 Neut % (Auto) 57.5 Lymph % (Auto) 31.7 [place] % (Auto) 6.9 Eos % (Auto) 2.9 Baso % (Auto) 0.7 Lymph # (Auto) 0.97 [place] # (Auto) 0.2 Eos # (Auto) 0.1 Baso # (Auto) 0.0 Abs Immat Gran (auto) 0.01 Absolute Neuts (auto) 1.8 Absolute Nucleated RBC 0.000 Nucleated RBC % 0.0 % Immature Plt Fraction 5.3 PT 12.5 INR 0.9 APTT 32.5 Sodium 140 Potassium 4.5 Chloride 111 H Carbon Dioxide 24 Anion Gap 5 BUN 35 H D Creatinine 1.30 H Estim Creat Clear Calc 31 Estimated GFR 39 L Glucose 253 H POC Capillary Glucose 197 H Lactic Acid 1.4 Calcium 9.3 Total Bilirubin 0.6 AST 28 ALT 25 Alkaline Phosphatase 181 H Troponin I < 0.012 C-Reactive Protein 3.1 H Total Protein 6.0 L Albumin 3.6 Urine Color Yellow Urine Appearance Cloudy H Urine pH 5.5 Ur Specific [place] 1.019 Urine Protein Trace Urine Glucose (UA) 1+ H Urine Ketones Negative Ur Blood (Man) 2+ H Urine Nitrate Positive H Urine Bilirubin Negative Urine Urobilinogen 1.0 Add Ur Microanalysis Reviewed Leukocyte Esterase Rfl 3+ H Urine RBC 11-20 H Urine WBC >100 H Ur Squamous Epith Cells Moderate Urine Bacteria 3+ H 08/27/24 08/27/24 08/27/24 20:47 22:01 23:38 WBC RBC Hgb Hct MCV MCH MCHC RDW Plt Count MPV Immature Gran % (Auto) Neut % (Auto) Lymph % (Auto) [place] % (Auto) Eos % (Auto) Baso % (Auto) Lymph # (Auto) [place] # (Auto) Eos # (Auto) Baso # (Auto) Abs Immat Gran (auto) Absolute Neuts (auto) Absolute Nucleated RBC Nucleated RBC % % Immature Plt Fraction PT INR APTT Sodium Potassium Chloride Carbon Dioxide Anion Gap BUN Creatinine Estim Creat Clear Calc Estimated GFR Glucose POC Capillary Glucose 159 H 127 H 82 Lactic Acid Calcium Total Bilirubin AST ALT Alkaline Phosphatase Troponin I C-Reactive Protein Total Protein Albumin Urine Color Urine Appearance Urine pH Ur Specific [place] Urine Protein Urine Glucose (UA) Urine Ketones Ur Blood (Man) Urine Nitrate Urine Bilirubin Urine Urobilinogen Add Ur Microanalysis Leukocyte Esterase Rfl Urine RBC Urine WBC Ur Squamous Epith Cells Urine Bacteria 08/28/24 08/28/24 08/28/24 03:56 05:20 07:27 WBC 4.0 L RBC 3.66 L Hgb 11.1 L Hct 34.6 L MCV 94.5 MCH 30.3 MCHC 32.1 RDW 15.0 H Plt Count 82 L MPV 11.1 H Immature Gran % (Auto) 0.2 Neut % (Auto) 62.9 Lymph % (Auto) 28.5 [place] % (Auto) 6.2 Eos % (Auto) 2.0 Baso % (Auto) 0.2 Lymph # (Auto) 1.15 [place] # (Auto) 0.3 Eos # (Auto) 0.1 Baso # (Auto) 0.0 Abs Immat Gran (auto) 0.01 Absolute Neuts (auto) 2.5 Absolute Nucleated RBC 0.000 Nucleated RBC % 0.0 % Immature Plt Fraction 4.6 PT INR APTT Sodium 143 Potassium 4.7 Chloride 119 H Carbon Dioxide 22 Anion Gap 2 L BUN 27 H Creatinine 1.10 H Estim Creat Clear Calc 37 Estimated GFR 48 L Glucose 92 POC Capillary Glucose 89 86 Lactic Acid Calcium 8.7 Total Bilirubin AST ALT Alkaline Phosphatase Troponin I C-Reactive Protein Total Protein Albumin Urine Color Urine Appearance Urine pH Ur Specific [place] Urine Protein Urine Glucose (UA) Urine Ketones Ur Blood (Man) Urine Nitrate Urine Bilirubin Urine Urobilinogen Add Ur Microanalysis Leukocyte Esterase Rfl Urine RBC Urine WBC Ur Squamous Epith Cells Urine Bacteria 08/28/24 11:18 WBC RBC Hgb Hct MCV MCH MCHC RDW Plt Count MPV Immature Gran % (Auto) Neut % (Auto) Lymph % (Auto) [place] % (Auto) Eos % (Auto) Baso % (Auto) Lymph # (Auto) [place] # (Auto) Eos # (Auto) Baso # (Auto) Abs Immat Gran (auto) Absolute Neuts (auto) Absolute Nucleated RBC Nucleated RBC % % Immature Plt Fraction PT INR APTT Sodium Potassium Chloride Carbon Dioxide Anion Gap BUN Creatinine Estim Creat Clear Calc Estimated GFR Glucose POC Capillary Glucose 188 H Lactic Acid Calcium Total Bilirubin AST ALT Alkaline Phosphatase Troponin I C-Reactive Protein Total Protein Albumin Urine Color Urine Appearance Urine pH Ur Specific [place] Urine Protein Urine Glucose (UA) Urine Ketones Ur Blood (Man) Urine Nitrate Urine Bilirubin Urine Urobilinogen Add Ur Microanalysis Leukocyte Esterase Rfl Urine RBC Urine WBC Ur Squamous Epith Cells Urine Bacteria Quality VTE Prophylaxis VTE prophylaxis: mechanical ordered (SCDs)
[2024-08-28 16:29] LABS: Glucose Point of Care 109 mg/dl (65-105)
[2024-08-28] MEDS: CEFEPIME 1 GM/NS 50 ML 1 GM/50 ML BAG IVPB (18:45)
[2024-08-28] MEDS: INSULIN GLARGINE (*BKC) 100 UNITS/ML 20 UNITS SUB-Q (20:01)
[2024-08-28] MEDS: INSULIN ASPART (*BKC) 100 UNITS/ML SUB-Q (20:01)
[2024-08-28 20:17] LABS: Glucose Point of Care 225 mg/dl (65-105)
[2024-08-29] VITALS (12 sets, daily range): BP systolic 97–168; BP diastolic 50–113; PULSE 65–82; RESP 16–22; TEMP 36.5–37.4; O2SAT 95–100; BMI 29.2
[2024-08-29 01:13] LABS: Influenza A QL RT-PCR Negative (Negative); Influenza B QL RT-PCR Negative (Negative); RSV RNA, RT-PCR Negative (Negative); SARS-CoV-2 RNA PCR Negative (Negative)
[2024-08-29] MEDS: SODIUM CHLORIDE 0.9% IV 1,000 ML 100 ML IV CONT ×3 (03:40→22:15)
[2024-08-29] MEDS: ERYTHROMYCIN OPHTH OINTMENT 1 GM TUBE 1 APPLIC LEFT EYE ×5 (03:41→20:19)
[2024-08-29 05:20] LABS: Basophils Percent Auto 0.6 % (0.2-1.2); Eosinophils Absolute Auto 0.1 K/mm3 (0-0.3); Eosinophils Percent Auto 3.2 % (0-4.4); Hematocrit 35.4 % (37.0-47.0); Hemoglobin 11.3 g/dL (12.0-15.0); Immature Granulocyte Absolute 0.01 K/mm3 (0.00-0.031); Immature Granulocyte Percent A 0.3 % (0-0.5); Immature Platelet Fraction Pct 4.1 % (0.9-11.2); Lymphocytes Absolute Auto 1.13 K/mm3 (0.9-3.2); Mean Corpuscular HGB Conc 31.9 g/dl (32-36); Mean Corpuscular Hemoglobin 30.1 pg (26-34); Mean Corpuscular Volume 94.4 fl (80-100); Mean Platelet Volume 10.6 fl (7.4-10.4); Monocytes Absolute Auto 0.2 K/mm3 (0.1-0.6); Monocytes Percent Auto 6.4 % (2.6-8.5); Neutrophils Absolute Auto 1.7 K/mm3 (1.3-6.7); Neutrophils Percent Auto 53.5 % (45.5-73.1); Platelet Count Result 85 k/mm3 (150-375); Red Blood Count 3.75 M/mm3 (4.2-5.4); Red Cell Distribution Width 14.9 % (11.5-14.5); White Blood Count 3.1 K/mm3 (4.5-10.0)
[2024-08-29 05:28] LABS: Alanine Aminotransferase 21 U/L (6-35); Albumin Level 3.3 g/dL (3.5-5.1); Alkaline Phosphatase 153 U/L (38-126); Anion Gap 4 mmol/L (4-12); Aspartate Amino Transferase 23 U/L (14-36); Bilirubin,Total 0.6 mg/dL (0.2-1.3); Blood Urea Nitrogen 18 mg/dL (7-17); Calcium 9.1 mg/dL (8.4-10.2); Carbon Dioxide 20 mmol/L (22-30); Chloride 119 mmol/L (98-107); Estimated CRCL calculation 40 ml/min; Estimated Glomerular Filt Rate 53; Glucose 106 mg/dL (65-110); Magnesium 1.8 mg/dL (1.6-2.3); Potassium 4.2 mmol/L (3.4-5.0); Sodium 143 mmol/L (137-145)
[2024-08-29 05:34] LABS: Lactic Acid Reflex 1.1 mmol/L (0.7-2.0)
[2024-08-29 05:48] LABS: Platelet Estimate Decreased (Adequate)
[2024-08-29 05:49] LABS: Schistocytes None Seen
[2024-08-29 08:10] LABS: Glucose Point of Care 87 mg/dl (65-105)
[2024-08-29] MEDS: ATORVASTATIN 40 MG TABLET PO (10:52)
[2024-08-29] MEDS: MAGNESIUM OXIDE 400 MG TABLET PO (10:53)
[2024-08-29] MEDS: DONEPEZIL HCL 10 MG TABLET PO (10:53)
[2024-08-29] MEDS: LORATADINE 10 MG TABLET PO (10:53)
[2024-08-29] MEDS: SACCHAROMYCES BOULARDII 250 MG CAPSULE PO ×2 (10:53→16:49)
[2024-08-29] MEDS: ASPIRIN 81 MG ENTERIC TABLET PO (10:53)
[2024-08-29] MEDS: MEMANTINE 10 MG TABLET PO ×2 (10:53→20:19)
[2024-08-29] MEDS: PREGABALIN (*CRX) 75 MG CAPSULE 150 MG PO ×2 (10:53→16:49)
[2024-08-29] MEDS: amLODIPine BESYLATE 5 MG TABLET PO (10:53)
[2024-08-29] MEDS: CHOLECALCIFEROL 5,000 UNITS TABLET 5000 UNITS PO (10:53)
[2024-08-29] MEDS: lisinopriL 10 MG TABLET PO (10:53)
[2024-08-29] MEDS: INSULIN ASPART (*BKC) 100 UNITS/ML SUB-Q ×3 (12:08→20:23)
[2024-08-29 12:30] LABS: Glucose Point of Care 203 mg/dl (65-105)
[2024-08-29] MEDS: CEFEPIME 1 GM/NS 50 ML 1 GM/50 ML BAG IVPB ×2 (13:51→20:22)
--- NOTE | 2024-08-29 14:32 | P.PNIM_ITS ---
Progress Note: A&P Assessment and Plan (1) Sepsis: Qualifiers: Acute renal failure type: unspecified Sepsis acute organ dysfunction status: with acute organ dysfunction Sepsis type: sepsis due to unspecified or ganism Severe sepsis acute organ dysfunction type: acute renal failure Severe sepsis shock status: with septic shock Qualified Code(s): A41.9 - Sepsis, unspecified organism; R65.21 - Severe sepsis with septic shock; N17.9 - Acute kidney failure, unspecified Code(s): A41.9 - Sepsis, unspecified organism Status: Acute (2) Acute UTI: Code(s): N39.0 - Urinary tract infection, site not specified Status: Acute (3) Hypothermia: Qualifiers: Encounter type: initial encounter Qualified Code(s): T68.XXXA - Hypothermia, initial encounter Code(s): T68.XXXA - Hypothermia, initial encounter Status: Acute (4) TON (acute kidney injury): Code(s): N17.9 - Acute kidney failure, unspecified Status: Acute (5) Dementia: Qualifiers: Dementia type: unspecified type Dementia behavioral disturbance: without behavioral disturbance Qualified Code(s): F03.90 - Unspecified dementia without behavioral disturbance Code(s): F03.90 - Unspecified dementia, unspecified severity, without behavioral disturbance, psychotic disturbance, mood disturbance, and anxiety Status: Acute (6) Sinus bradycardia: Code(s): R00.1 - Bradycardia, unspecified Status: Acute (7) Altered mental status: Qualifiers: Altered mental status type: stupor Qualified Code(s): R40.1 - Stupor Code(s): R41.82 - Altered mental status, unspecified Status: Acute Plan UTI urine culture positive for E coli awaiting sensitivity Continue abx Hypothermia resolved, s/p bear hugger TON resolved Cr 1.3, repeat 1.0 patient having adequate oral intake Thrombocytopenia Plts 82 -->85 monitor Dementia continue home meds DVT prophylaxis on SCDS, no AC due to thrombocytopenia Subjective Date/time seen: 08/29/24 14:32 Interval history: patient comfortable at bedside WOund culture positive E coli Review of Systems Review of Systems: ROS unobtainable: Yes unobtainable due to medical condition and unobtainable due to mental status Exam Narrative: Weight 80.5 kg BMI 29.5 Const: Other: No acute distress, overweight, appears stated age HENMT: Other: Head is normocephalic atraumatic, mucous membranes are dry, no oral pharyngeal erythema, crowded posterior oropharynx, edentulous in upper and lower jaw Eyes: Other: Pupils are equal and reactive 5-6 mm, no scleral icterus, mild conjunctival erythema Neck: Other: Large neck circumference, no JVD, no lymphadenopathy Resp: Other: Clear to auscultation bilaterally, no increased work of breathing Cardio: Other: Regular rate, regular rhythm, 2+ bilateral radial pedal pulses, no JVD, murmur noted GI: Other: Obese, soft, nontender, no suprapubic tenderness, positive bowel sounds Skin: Other: Generalized pallor, non jaundice, no petechiae Neuro: Other: Alert oriented to name only, speech is clear, no obvious facial asymmetry, tremor of the left hand, slowed responses to external stimuli, moves all extremities equally Extrem: Other: Nonpitting edema to the feet, no clubbing, no cyanosis, 5/5 teacher dramatics strength on the right patient has difficulty following commands for teacher dramatics strength on the left moves both feet equally but unable to follow commands for testing strength of lower extremities Psych: Other: Pleasantly confused, cooperative, poor judgment and insight Objective Data Vital Signs Vital Signs: Vital Signs - 24 hr 08/28/24 15:54 08/28/24 16:00 08/28/24 18:00 Temperature 98.9 F Pulse Rate 71 59 L 64 Respiratory Rate 18 Blood Pressure 113/42 L Pulse Oximetry 95 Oxygen Delivery 08/28/24 20:00 08/28/24 20:02 08/28/24 20:00 Temperature 98.5 F Pulse Rate 68 67 Respiratory Rate 18 Blood Pressure 125/66 Pulse Oximetry 97 Oxygen Delivery Room Air 08/28/24 22:00 08/29/24 00:00 08/29/24 00:00 Temperature 97.7 F Pulse Rate 63 71 65 Respiratory Rate 16 Blood Pressure 142/52 H Pulse Oximetry 99 Oxygen Delivery 08/29/24 00:00 08/29/24 02:00 08/29/24 04:00 Temperature 98.9 F Pulse Rate 69 72 Respiratory Rate 16 Blood Pressure 166/64 H Pulse Oximetry 96 Oxygen Delivery Room Air 08/29/24 04:00 08/29/24 04:00 08/29/24 06:00 Temperature Pulse Rate 75 69 Respiratory Rate Blood Pressure Pulse Oximetry Oxygen Delivery Room Air 08/29/24 08:00 08/29/24 08:00 08/29/24 10:00 Temperature 99.4 F Pulse Rate 80 73 80 Respiratory Rate 22 H Blood Pressure 168/67 H Pulse Oximetry 95 Oxygen Delivery 08/29/24 12:00 08/29/24 12:00 08/29/24 14:00 Temperature 98.5 F Pulse Rate 73 79 82 Respiratory Rate 20 Blood Pressure 97/59 L Pulse Oximetry 99 Oxygen Delivery Intake/Output Intake/Output: Intake & Output 08/26/24 08/27/24 08/28/24 08/29/24 23:59 23:59 23:59 23:59 Intake Total 2550 2770 2175.0 Output Total 1950 1675 Balance 2550 820 500.0 Meds/Results Medications: Active Medications Generic Name Dose Route Start Last Admin Trade Name Freq PRN Reason Stop Dose Admin Acetaminophen 650 mg 08/27/24 20:37 Acetaminophen 650 Mg Suppository RECTAL Q6H PRN Mild Pain (1-3) or Fever Amlodipine Besylate 5 mg 08/28/24 09:00 08/29/24 10:53 Amlodipine Besylate 5 Mg Tablet PO 5 mg DAILY ELVIRA Administration Artificial Tears 1 drop 08/28/24 01:52 Artificial Tears Ophth Soln 15 Ml Bottle EACH EYE QID PRN Dry Eye(s) Aspirin 81 mg 08/28/24 09:00 08/29/24 10:53 Aspirin 81 Mg Enteric Tablet PO 81 mg QAM ELVIRA Administration Atorvastatin Calcium 40 mg 08/28/24 09:00 08/29/24 10:52 Atorvastatin 40 Mg Tablet PO 40 mg DAILY [facility] Administration Dextrose 12.5 gm 08/28/24 00:50 Dextrose 50% 25 Gm/50 Ml Syringe IV PUSH PRN PRN Hypoglycemia Protocol Donepezil HCl 10 mg 08/28/24 09:00 08/29/24 10:53 Donepezil Hcl 10 Mg Tablet PO 10 mg DAILY ELVIRA Administration Erythromycin 1 applic 08/29/24 05:00 08/29/24 12:06 Erythromycin Ophth Ointment 1 Gm Tube LEFT EYE 09/05/24 04:59 1 applic Q4HWA ELVIRA Administration Glucagon 1 mg 08/28/24 00:50 Glucagon For Inj 1 Mg Vial IM PRN PRN Hypoglycemia Protocol Glucose 15 gm 08/28/24 00:50 Glucose Oral Gel 15 Gm Of Glucse In 37.5 Gm Tube PO PRN PRN Hypoglycemia Protocol Sodium Chloride 1,000 mls @ 100 mls/hr 08/27/24 21:20 08/29/24 12:06 Normal Saline Iv IV CONT 100 mls/hr .Q10H [facility] Administration Dextrose 1,000 mls @ 100 mls/hr 08/28/24 00:50 Dextrose 5% 1,000 Ml IVPB PRN PRN Hypoglycemia Protocol Cefepime HCl 1 gm in 50 mls @ 100 mls/hr 08/29/24 12:30 08/29/24 13:51 Maxipime 1 Gm/Ns 50 Ml IVPB 100 mls/hr Q12HR [facility] Administration Insulin Aspart 2 - 5 units 08/28/24 08:00 08/29/24 12:08 Insulin Aspart (*Bkc) 100 Units/Ml SUB-Q 2 units TIDWM ELV[facility]A Administration Protocol Insulin Aspart 1 - 2 units 08/28/24 21:00 08/28/24 20:01 Insulin Aspart (*Bkc) 100 Units/Ml SUB-Q 1 units HS [facility] Administration Protocol Insulin Glargine 20 units 08/28/24 21:00 08/28/24 20:01 Insulin Glargine (*Bkc) 100 Units/Ml SUB-Q 20 units HS [facility] Administration Lisinopril 10 mg 08/28/24 09:00 08/29/24 10:53 Lisinopril 10 Mg Tablet PO 10 mg DAILY [facility] Administration Loratadine 10 mg 08/28/24 09:00 08/29/24 10:53 Loratadine 10 Mg Tablet PO 10 mg QAM [facility] Administration Magnesium Hydroxide 30 ml 08/28/24 01:51 Magnesium Hydroxide Susp 30 Ml Udc PO DAILY PRN Constipation Magnesium Oxide 400 mg 08/28/24 09:00 08/29/24 10:53 Magnesium Oxide 400 Mg Tablet PO 400 mg DAILY EL[facility] Administration Memantine 10 mg 08/28/24 09:00 08/29/24 10:53 Memantine 10 Mg Tablet PO 10 mg Q12HR [facility] Administration Pregabalin 150 mg 08/28/24 09:00 08/29/24 10:53 Pregabalin (*Crx) 75 Mg Capsule PO 150 mg BID EL[facility] Administration Saccharomyces Boulardii 250 mg 08/28/24 09:00 08/29/24 10:53 Abilio Garciadii 250 Mg Capsule PO 250 mg BID [facility] Administration Vitamin D 5,000 units 08/28/24 09:00 08/29/24 10:53 Cholecalciferol 5,000 Units Tablet PO 5,000 units DAILY ELVIRA Administration Radiology Results: ITS Impressions Chest X-Ray 08/27/24 19:49 IMPRESSION: Mild interstitial edema. Head CT 08/27/24 19:53 IMPRESSION: No acute intracranial process. Modified Barium Swallow 08/29/24 10:20 IMPRESSION: 1. Laryngeal penetration. 2. Please refer to the speech therapy report for recommendations. Labs Labs: Laboratory Results - last 24 hr 08/28/24 08/28/24 08/29/24 16:25 20:00 00:11 WBC RBC Hgb Hct MCV MCH MCHC RDW Plt Count MPV Immature Gran % (Auto) Neut % (Auto) Lymph % (Auto) [place] % (Auto) Eos % (Auto) Baso % (Auto) Lymph # (Auto) [place] # (Auto) Eos # (Auto) Baso # (Auto) Abs Immat Gran (auto) Absolute Neuts (auto) Absolute Nucleated RBC Nucleated RBC % Platelet Estimate % Immature Plt Fraction Schistocytes Sodium Potassium Chloride Carbon Dioxide Anion Gap BUN Creatinine Estim Creat Clear Calc Estimated GFR Glucose POC Capillary Glucose 109 H 225 H Lactic Acid Calcium Magnesium Total Bilirubin AST ALT Alkaline Phosphatase Total Protein Albumin Influenza A (RT-PCR) Negative Influenza B (RT-PCR) Negative RSV (RT-PCR) Negative SARS-CoV-2 RNA (RT-PCR) Negative 08/29/24 08/29/24 08/29/24 04:11 08:07 11:17 WBC 3.1 L RBC 3.75 L Hgb 11.3 L Hct 35.4 L MCV 94.4 MCH 30.1 MCHC 31.9 L RDW 14.9 H Plt Count 85 L MPV 10.6 H Immature Gran % (Auto) 0.3 Neut % (Auto) 53.5 Lymph % (Auto) 36.0 [place] % (Auto) 6.4 Eos % (Auto) 3.2 Baso % (Auto) 0.6 Lymph # (Auto) 1.13 [place] # (Auto) 0.2 Eos # (Auto) 0.1 Baso # (Auto) 0.0 Abs Immat Gran (auto) 0.01 Absolute Neuts (auto) 1.7 Absolute Nucleated RBC 0.000 Nucleated RBC % 0.0 Platelet Estimate Decreased % Immature Plt Fraction 4.1 Schistocytes None seen Sodium 143 Potassium 4.2 Chloride 119 H Carbon Dioxide 20 L Anion Gap 4 BUN 18 H Creatinine 1.00 Estim Creat Clear Calc 40 Estimated GFR 53 L Glucose 106 POC Capillary Glucose 87 203 H Lactic Acid 1.1 Calcium 9.1 Magnesium 1.8 Total Bilirubin 0.6 AST 23 ALT 21 Alkaline Phosphatase 153 H Total Protein 6.0 L Albumin 3.3 L Influenza A (RT-PCR) Influenza B (RT-PCR) RSV (RT-PCR) SARS-CoV-2 RNA (RT-PCR) Quality VTE Prophylaxis VTE prophylaxis: mechanical ordered (SCDs)
[2024-08-29 16:35] LABS: Glucose Point of Care 216 mg/dl (65-105)
[2024-08-29] MEDS: INSULIN GLARGINE (*BKC) 100 UNITS/ML 20 UNITS SUB-Q (20:23)
[2024-08-29 20:31] LABS: Glucose Point of Care 230 mg/dl (65-105)
[2024-08-29 20:50] LABS: Glucose Point of Care 207 mg/dl (65-105)
[2024-08-30] VITALS (9 sets, daily range): BP systolic 135–175; BP diastolic 47–86; PULSE 70–80; RESP 18–20; TEMP 36.4–37.3; O2SAT 97–100
[2024-08-30 04:15] LABS: Basophils Percent Auto 0.5 % (0.2-1.2); Eosinophils Absolute Auto 0.1 K/mm3 (0-0.3); Eosinophils Percent Auto 2.4 % (0-4.4); Hematocrit 37.1 % (37.0-47.0); Hemoglobin 12.4 g/dL (12.0-15.0); Immature Granulocyte Absolute 0.01 K/mm3 (0.00-0.031); Immature Granulocyte Percent A 0.3 % (0-0.5); Immature Platelet Fraction Pct 3.9 % (0.9-11.2); Lymphocytes Absolute Auto 1.23 K/mm3 (0.9-3.2); Lymphocytes Percent Auto 33.3 % (18.3-44.2); Mean Corpuscular HGB Conc 33.4 g/dl (32-36); Mean Corpuscular Hemoglobin 30.4 pg (26-34); Mean Corpuscular Volume 90.9 fl (80-100); Mean Platelet Volume 10.8 fl (7.4-10.4); Monocytes Absolute Auto 0.2 K/mm3 (0.1-0.6); Monocytes Percent Auto 6.5 % (2.6-8.5); Neutrophils Absolute Auto 2.1 K/mm3 (1.3-6.7); Platelet Count Result 93 k/mm3 (150-375); Red Blood Count 4.08 M/mm3 (4.2-5.4); Red Cell Distribution Width 14.2 % (11.5-14.5); White Blood Count 3.7 K/mm3 (4.5-10.0)
[2024-08-30 04:29] LABS: Alanine Aminotransferase 21 U/L (6-35); Albumin Level 3.9 g/dL (3.5-5.1); Alkaline Phosphatase 180 U/L (38-126); Anion Gap 6 mmol/L (4-12); Aspartate Amino Transferase 25 U/L (14-36); Bilirubin,Total 0.7 mg/dL (0.2-1.3); Blood Urea Nitrogen 16 mg/dL (7-17); Calcium 9.5 mg/dL (8.4-10.2); Carbon Dioxide 23 mmol/L (22-30); Chloride 114 mmol/L (98-107); Estimated CRCL calculation 44 ml/min; Estimated Glomerular Filt Rate 60; Glucose 126 mg/dL (65-110); Magnesium 1.5 mg/dL (1.6-2.3); Potassium 3.9 mmol/L (3.4-5.0); Sodium 143 mmol/L (137-145)
[2024-08-30] MEDS: ERYTHROMYCIN OPHTH OINTMENT 1 GM TUBE 1 APPLIC LEFT EYE ×4 (05:52→20:04)
[2024-08-30] MEDS: SODIUM CHLORIDE 0.9% IV 1,000 ML 100 ML IV CONT (05:52)
[2024-08-30 07:57] LABS: Glucose Point of Care 113 mg/dl (65-105)
[2024-08-30] MEDS: DONEPEZIL HCL 10 MG TABLET PO (08:16)
[2024-08-30] MEDS: lisinopriL 10 MG TABLET PO (08:16)
[2024-08-30] MEDS: MAGNESIUM OXIDE 400 MG TABLET PO (08:16)
[2024-08-30] MEDS: MEMANTINE 10 MG TABLET PO ×2 (08:16→20:04)
[2024-08-30] MEDS: ATORVASTATIN 40 MG TABLET PO (08:16)
[2024-08-30] MEDS: amLODIPine BESYLATE 5 MG TABLET PO (08:16)
[2024-08-30] MEDS: SACCHAROMYCES BOULARDII 250 MG CAPSULE PO ×2 (08:16→17:48)
[2024-08-30] MEDS: CHOLECALCIFEROL 5,000 UNITS TABLET 5000 UNITS PO (08:16)
[2024-08-30] MEDS: PREGABALIN (*CRX) 75 MG CAPSULE 150 MG PO ×2 (08:16→17:48)
[2024-08-30] MEDS: CEFEPIME 1 GM/NS 50 ML 1 GM/50 ML BAG IVPB (08:17)
[2024-08-30] MEDS: ASPIRIN 81 MG ENTERIC TABLET PO (08:17)
[2024-08-30] MEDS: LORATADINE 10 MG TABLET PO (08:17)
[2024-08-30] MEDS: MAGNESIUM SULF 2 GM/WATER 50ML 2 GM/50 ML BAG IVPB (11:22)
[2024-08-30 11:53] LABS: Glucose Point of Care 186 mg/dl (65-105)
--- NOTE | 2024-08-30 15:14 | ADMGEN ---
This patient, Emelina Santoyo, was admitted to 2 Medical Room 242-. Patient/family oriented to hospital policies and general routines including ID bracelet, bed and alarms, visiting hours, pain management, procedures, bathroom and other care routines, personal items, smoking policy, room service/diet, and visiting hours. Information on how to activate the Rapid Response Team has been discussed. Patient/Family are encouraged to report perceived risks to care and to ask questions if they do not understand what they are told or what they should do.
--- NOTE | 2024-08-30 17:09 | P.PNIM_ITS ---
Progress Note: A&P Assessment and Plan (1) Sepsis: Qualifiers: Acute renal failure type: unspecified Sepsis acute organ dysfunction status: with acute organ dysfunction Sepsis type: sepsis due to unspecified or ganism Severe sepsis acute organ dysfunction type: acute renal failure Severe sepsis shock status: with septic shock Qualified Code(s): A41.9 - Sepsis, unspecified organism; R65.21 - Severe sepsis with septic shock; N17.9 - Acute kidney failure, unspecified Code(s): A41.9 - Sepsis, unspecified organism Status: Acute (2) Acute UTI: Code(s): N39.0 - Urinary tract infection, site not specified Status: Acute (3) Hypothermia: Qualifiers: Encounter type: initial encounter Qualified Code(s): T68.XXXA - Hypothermia, initial encounter Code(s): T68.XXXA - Hypothermia, initial encounter Status: Acute (4) TON (acute kidney injury): Code(s): N17.9 - Acute kidney failure, unspecified Status: Acute (5) Dementia: Qualifiers: Dementia type: unspecified type Dementia behavioral disturbance: without behavioral disturbance Qualified Code(s): F03.90 - Unspecified dementia without behavioral disturbance Code(s): F03.90 - Unspecified dementia, unspecified severity, without behavioral disturbance, psychotic disturbance, mood disturbance, and anxiety Status: Acute (6) Sinus bradycardia: Code(s): R00.1 - Bradycardia, unspecified Status: Acute (7) Altered mental status: Qualifiers: Altered mental status type: stupor Qualified Code(s): R40.1 - Stupor Code(s): R41.82 - Altered mental status, unspecified Status: Acute Plan UTI Urine culture resulted E coli. Started Keflex 500 mg p.o. b.i.d. for 7 days Hypothermia resolved, s/p bear hugger TON resolved Cr 1.3, repeat 1.0 patient having adequate oral intake Thrombocytopenia Plts 82 -->85 monitor Dementia continue home meds DVT prophylaxis on SCDS, no AC due to thrombocytopenia Subjective Date/time seen: 08/30/24 17:09 Interval history: Patient denies any complaints. Replaced magnesium. Urine culture resulted E coli. Started Keflex 500 mg p.o. b.i.d. for 7 days Review of Systems Review of Systems: ROS unobtainable: Yes unobtainable due to medical condition and unobtainable due to mental status Exam Narrative: Weight 80.5 kg BMI 29.5 Const: Other: No acute distress, overweight, appears stated age HENMT: Other: Head is normocephalic atraumatic, mucous membranes are dry, no oral pharyngeal erythema, crowded posterior oropharynx, edentulous in upper and lower jaw Eyes: Other: Pupils are equal and reactive 5-6 mm, no scleral icterus, mild conjunctival erythema Neck: Other: Large neck circumference, no JVD, no lymphadenopathy Resp: Other: Clear to auscultation bilaterally, no increased work of breathing Cardio: Other: Regular rate, regular rhythm, 2+ bilateral radial pedal pulses, no JVD, murmur noted GI: Other: Obese, soft, nontender, no suprapubic tenderness, positive bowel sounds Skin: Other: Generalized pallor, non jaundice, no petechiae Neuro: Other: Alert oriented to name only, speech is clear, no obvious facial asymmetry, tremor of the left hand, slowed responses to external stimuli, moves all extremities equally Extrem: Other: Nonpitting edema to the feet, no clubbing, no cyanosis, 5/5 threading machine feeder automatic strength on the right patient has difficulty following commands for threading machine feeder automatic strength on the left moves both feet equally but unable to follow commands for testing strength of lower extremities Psych: Other: Pleasantly confused, cooperative, poor judgment and insight Objective Data Vital Signs Vital Signs: Vital Signs - 24 hr 08/29/24 18:00 08/29/24 20:00 08/29/24 20:00 Temperature 98.2 F Pulse Rate 76 75 Respiratory Rate 20 Blood Pressure 156/50 H Pulse Oximetry 100 Oxygen Delivery Room Air Fraction of Inspired Oxygen 08/29/24 20:00 08/29/24 22:00 08/30/24 00:00 Temperature 98.1 F Pulse Rate 72 77 78 Respiratory Rate 18 Blood Pressure 165/65 H Pulse Oximetry 100 Oxygen Delivery Fraction of Inspired Oxygen 08/30/24 00:00 08/30/24 00:00 08/30/24 02:00 Temperature Pulse Rate 70 74 Respiratory Rate Blood Pressure Pulse Oximetry Oxygen Delivery Room Air Fraction of Inspired Oxygen 08/30/24 03:31 08/30/24 04:00 08/30/24 04:00 Temperature 97.6 F Pulse Rate 77 77 Respiratory Rate 18 Blood Pressure 158/86 H Pulse Oximetry 98 Oxygen Delivery Room Air Fraction of Inspired Oxygen 08/30/24 06:00 08/30/24 07:35 08/30/24 08:00 Temperature 98.4 F Pulse Rate 72 77 77 Respiratory Rate 18 18 Blood Pressure 175/68 H Pulse Oximetry 100 100 Oxygen Delivery Room Air Fraction of Inspired Oxygen 21 08/30/24 08:00 08/30/24 10:00 08/30/24 14:02 Temperature Pulse Rate 75 77 Respiratory Rate Blood Pressure Pulse Oximetry Oxygen Delivery Room Air Fraction of Inspired Oxygen 08/30/24 14:17 Temperature 98.1 F Pulse Rate 80 Respiratory Rate 18 Blood Pressure 135/47 L Pulse Oximetry 97 Oxygen Delivery Fraction of Inspired Oxygen Intake/Output Intake/Output: Intake & Output 08/27/24 08/28/24 08/29/24 08/30/24 23:59 23:59 23:59 23:59 Intake Total 2550 2770 3875.0 1371.7 Output Total 1950 5575 2725 Balance 2550 820 -1700.0 -1353.3 Meds/Results Medications: Active Medications Generic Name Dose Route Start Last Admin Trade Name Freq PRN Reason Stop Dose Admin Acetaminophen 650 mg 08/27/24 20:37 Acetaminophen 650 Mg Suppository RECTAL Q6H PRN Mild Pain (1-3) or Fever Amlodipine Besylate 5 mg 08/28/24 09:00 08/30/24 08:16 Amlodipine Besylate 5 Mg Tablet PO 5 mg DAILY ELVIRA Administration Artificial Tears 1 drop 08/28/24 01:52 Artificial Tears Ophth Soln 15 Ml Bottle EACH EYE QID PRN Dry Eye(s) Aspirin 81 mg 08/28/24 09:00 08/30/24 08:17 Aspirin 81 Mg Enteric Tablet PO 81 mg QAM ELVIRA Administration Atorvastatin Calcium 40 mg 08/28/24 09:00 08/30/24 08:16 Atorvastatin 40 Mg Tablet PO 40 mg DAILY ELVIRA Administration Cephalexin HCl 500 mg 08/30/24 21:00 Cephalexin 500 Mg Capsule PO 09/02/24 21:01 Q12HR ELVIRA Dextrose 12.5 gm 08/28/24 00:50 Dextrose 50% 25 Gm/50 Ml Syringe IV PUSH PRN PRN Hypoglycemia Protocol Donepezil HCl 10 mg 08/28/24 09:00 08/30/24 08:16 Donepezil Hcl 10 Mg Tablet PO 10 mg DAILY ELVIRA Administration Erythromycin 1 applic 08/29/24 05:00 08/30/24 14:10 Erythromycin Ophth Ointment 1 Gm Tube LEFT EYE 09/05/24 04:59 Not Given Q4HWA ELVIRA Glucagon 1 mg 08/28/24 00:50 Glucagon For Inj 1 Mg Vial IM PRN PRN Hypoglycemia Protocol Glucose 15 gm 08/28/24 00:50 Glucose Oral Gel 15 Gm Of Glucse In 37.5 Gm Tube PO PRN PRN Hypoglycemia Protocol Dextrose 1,000 mls @ 100 mls/hr 08/28/24 00:50 Dextrose 5% 1,000 Ml IVPB PRN PRN Hypoglycemia Protocol Insulin Aspart 2 - 5 units 08/28/24 08:00 08/30/24 13:55 Insulin Aspart (*Bkc) 100 Units/Ml SUB-Q Not Given TIDWM ELVIRA Protocol Insulin Aspart 1 - 2 units 08/28/24 21:00 08/29/24 20:23 Insulin Aspart (*Bkc) 100 Units/Ml SUB-Q 1 units HS ELVIRA Administration Protocol Insulin Glargine 20 units 08/28/24 21:00 08/29/24 20:23 Insulin Glargine (*Bkc) 100 Units/Ml SUB-Q 20 units HS ELVIRA Administration Lisinopril 10 mg 08/28/24 09:00 08/30/24 08:16 Lisinopril 10 Mg Tablet PO 10 mg DAILY ELVIRA Administration Loratadine 10 mg 08/28/24 09:00 08/30/24 08:17 Loratadine 10 Mg Tablet PO 10 mg QAM ELVIRA Administration Magnesium Hydroxide 30 ml 08/28/24 01:51 Magnesium Hydroxide Susp 30 Ml Udc PO DAILY PRN Constipation Magnesium Oxide 400 mg 08/28/24 09:00 08/30/24 08:16 Magnesium Oxide 400 Mg Tablet PO 400 mg DAILY ELVIRA Administration Memantine 10 mg 08/28/24 09:00 08/30/24 08:16 Memantine 10 Mg Tablet PO 10 mg Q12HR ELVIRA Administration Pregabalin 150 mg 08/28/24 09:00 08/30/24 08:16 Pregabalin (*Crx) 75 Mg Capsule PO 150 mg BID ELVIRA Administration Saccharomyces Boulardii 250 mg 08/28/24 09:00 08/30/24 08:16 Saccharomyces Boulardii 250 Mg Capsule PO 250 mg BID ELVIRA Administration Vitamin D 5,000 units 08/28/24 09:00 08/30/24 08:16 Cholecalciferol 5,000 Units Tablet PO 5,000 units DAILY ELVIRA Administration Radiology Results: ITS Impressions Chest X-Ray 08/27/24 19:49 IMPRESSION: Mild interstitial edema. Head CT 08/27/24 19:53 IMPRESSION: No acute intracranial process. Modified Barium Swallow 08/29/24 10:20 IMPRESSION: 1. Laryngeal penetration. 2. Please refer to the speech therapy report for recommendations. Labs Labs: Laboratory Results - last 24 hr 08/29/24 08/29/24 08/30/24 20:22 20:44 03:50 WBC 3.7 L RBC 4.08 L Hgb 12.4 Hct 37.1 MCV 90.9 MCH 30.4 MCHC 33.4 RDW 14.2 Plt Count 93 L MPV 10.8 H Immature Gran % (Auto) 0.3 Neut % (Auto) 57.0 Lymph % (Auto) 33.3 Powell % (Auto) 6.5 Eos % (Auto) 2.4 Baso % (Auto) 0.5 Lymph # (Auto) 1.23 Powell # (Auto) 0.2 Eos # (Auto) 0.1 Baso # (Auto) 0.0 Abs Immat Gran (auto) 0.01 Absolute Neuts (auto) 2.1 Absolute Nucleated RBC 0.000 Nucleated RBC % 0.0 % Immature Plt Fraction 3.9 Sodium 143 Potassium 3.9 Chloride 114 H Carbon Dioxide 23 Anion Gap 6 BUN 16 Creatinine 0.90 Estim Creat Clear Calc 44 Estimated GFR 60 Glucose 126 H POC Capillary Glucose 230 H 207 H Calcium 9.5 Magnesium 1.5 L Total Bilirubin 0.7 AST 25 ALT 21 Alkaline Phosphatase 180 H Total Protein 7.0 Albumin 3.9 08/30/24 08/30/24 07:50 11:47 WBC RBC Hgb Hct MCV MCH MCHC RDW Plt Count MPV Immature Gran % (Auto) Neut % (Auto) Lymph % (Auto) Powell % (Auto) Eos % (Auto) Baso % (Auto) Lymph # (Auto) Powell # (Auto) Eos # (Auto) Baso # (Auto) Abs Immat Gran (auto) Absolute Neuts (auto) Absolute Nucleated RBC Nucleated RBC % % Immature Plt Fraction Sodium Potassium Chloride Carbon Dioxide Anion Gap BUN Creatinine Estim Creat Clear Calc Estimated GFR Glucose POC Capillary Glucose 113 H 186 H Calcium Magnesium Total Bilirubin AST ALT Alkaline Phosphatase Total Protein Albumin Quality VTE Prophylaxis VTE prophylaxis: mechanical ordered (SCDs) Hospitalist MIPS Advance Care Plan I have confirmed that the patient's Advanced Care Plan is present, code status is documented, or surrogate decision maker is listed in patient medical record.: Yes Medication Reconciliation I have utilized all available resources to obtain, update and review the patients current medications (includes all prescriptions, OTC, herbals, cannabis, and nutritional supplements).: Yes
[2024-08-30 18:27] LABS: Glucose Point of Care 165 mg/dl (65-105)
[2024-08-30] MEDS: CEPHALEXIN 500 MG CAPSULE PO (20:04)
[2024-08-30] MEDS: INSULIN GLARGINE (*BKC) 100 UNITS/ML 20 UNITS SUB-Q (20:05)
[2024-08-30] MEDS: INSULIN ASPART (*BKC) 100 UNITS/ML SUB-Q (20:10)
[2024-08-30 20:47] LABS: Glucose Point of Care 208 mg/dl (65-105)
[2024-08-31 04:27] VITALS: BP 153/58; PULSE 72; RESP 20; TEMP 36.8; O2SAT 97
[2024-08-31] MEDS: ERYTHROMYCIN OPHTH OINTMENT 1 GM TUBE 1 APPLIC LEFT EYE ×2 (04:46→09:58)
[2024-08-31 06:02] LABS: Hematocrit 39.3 % (37.0-47.0); Immature Platelet Fraction Pct 3.8 % (0.9-11.2); Mean Corpuscular HGB Conc 33.1 g/dl (32-36); Mean Corpuscular Hemoglobin 30.4 pg (26-34); Mean Corpuscular Volume 91.8 fl (80-100); Mean Platelet Volume 10.5 fl (7.4-10.4); Platelet Count Result 104 k/mm3 (150-375); Red Blood Count 4.28 M/mm3 (4.2-5.4); Red Cell Distribution Width 14.3 % (11.5-14.5); White Blood Count 3.9 K/mm3 (4.5-10.0)
[2024-08-31 06:12] LABS: Alanine Aminotransferase 19 U/L (6-35); Albumin Level 3.8 g/dL (3.5-5.1); Alkaline Phosphatase 171 U/L (38-126); Anion Gap 3 mmol/L (4-12); Aspartate Amino Transferase 25 U/L (14-36); Bilirubin,Total 0.8 mg/dL (0.2-1.3); Blood Urea Nitrogen 16 mg/dL (7-17); Calcium 9.7 mg/dL (8.4-10.2); Carbon Dioxide 29 mmol/L (22-30); Chloride 110 mmol/L (98-107); Estimated CRCL calculation 34 ml/min; Estimated Glomerular Filt Rate 53; Glucose 121 mg/dL (65-110); Sodium 142 mmol/L (137-145)
[2024-08-31 08:00] LABS: Glucose Point of Care 114 mg/dl (65-105)
[2024-08-31] MEDS: MEMANTINE 10 MG TABLET PO (09:57)
[2024-08-31] MEDS: lisinopriL 10 MG TABLET PO (09:58)
[2024-08-31] MEDS: LORATADINE 10 MG TABLET PO (09:58)
[2024-08-31] MEDS: ASPIRIN 81 MG ENTERIC TABLET PO (09:58)
[2024-08-31] MEDS: CEPHALEXIN 500 MG CAPSULE PO (09:58)
[2024-08-31] MEDS: MAGNESIUM OXIDE 400 MG TABLET PO (09:58)
[2024-08-31] MEDS: CHOLECALCIFEROL 5,000 UNITS TABLET 5000 UNITS PO (09:58)
[2024-08-31] MEDS: DONEPEZIL HCL 10 MG TABLET PO (09:58)
[2024-08-31] MEDS: PREGABALIN (*CRX) 75 MG CAPSULE 150 MG PO (09:58)
[2024-08-31] MEDS: ATORVASTATIN 40 MG TABLET PO (09:58)
[2024-08-31] MEDS: amLODIPine BESYLATE 5 MG TABLET PO (09:58)
[2024-08-31] MEDS: SACCHAROMYCES BOULARDII 250 MG CAPSULE PO (09:58)
[2024-08-31 11:54] LABS: Glucose Point of Care 169 mg/dl (65-105)
[2024-08-31 13:45] LABS: SARS-CoV-2 RNA PCR Negative (Negative)
[2024-08-31 14:00] VITALS: BP 128/50; PULSE 76; RESP 14; TEMP 37.3; O2SAT 95
--- NOTE | 2024-08-31 15:15 | PM.DS ---
DS: Admitting Diagnosis Discharge Date 08/31/2024 Admitting Diagnosis Altered Mental Status DS: Discharge Diagnosis Discharge Diagnosis (1) Sepsis: Qualifiers: Acute renal failure type: unspecified Sepsis acute organ dysfunction status: with acute organ dysfunction Sepsis type: sepsis due to unspecified organism Severe sepsis acute organ dysfunction type: acute renal failure Severe sepsis shock status: with septic shock Qualified Code(s): A41.9 - Sepsis, unspecified organism; R65.21 - Severe sepsis with septic shock; N17.9 - Acute kidney failure, unspecified Code(s): A41.9 - Sepsis, unspecified organism Status: Acute (2) Acute UTI: Code(s): N39.0 - Urinary tract infection, site not specified Status: Acute (3) Hypothermia: Qualifiers: Encounter type: initial encounter Qualified Code(s): T68.XXXA - Hypothermia, initial encounter Code(s): T68.XXXA - Hypothermia, initial encounter Status: Acute (4) TON (acute kidney injury): Code(s): N17.9 - Acute kidney failure, unspecified Status: Acute (5) Dementia: Qualifiers: Dementia behavioral disturbance: without behavioral disturbance Dementia type: unspecified type Qualified Code(s): F03.90 - Unspecified dementia without behavioral disturbance Code(s): F03.90 - Unspecified dementia, unspecified severity, without behavioral disturbance, psychotic disturbance, mood disturbance, and anxiety Status: Acute (6) Sinus bradycardia: Code(s): R00.1 - Bradycardia, unspecified Status: Acute (7) Altered mental status: Qualifiers: Altered mental status type: stupor Qualified Code(s): R40.1 - Stupor Code(s): R41.82 - Altered mental status, unspecified Status: Acute Plan UTI Urine culture resulted E coli. Started Keflex 500 mg p.o. b.i.d. for 7 days Hypothermia resolved, s/p bear hugger TON resolved Cr 1.3, repeat 1.0 patient having adequate oral intake Thrombocytopenia Plts 82 -->85>105 monitor Dementia continue home meds DVT prophylaxis on SCDS, no AC due to thrombocytopenia DS: Summary Hospital Course Hospital Course: 84-year-old female with a past medical history of multiple sclerosis, dementia, hyperlipidemia, diabetes mellitus, and peripheral neuropathy who presented to the ER via EMS from [facility] due to unresponsive state. Facility check the patient's blood sugar and found blood glucose to be 70 gave the patient glucagon. Her glucose went up to 130. When EMS arrived to the facility patient's glucose was 228 and with patient arrived to our facility she was in the 180s. EMS noted the patient had pinpoint pupils and gave the patient Narcan with no response. Patient was mildly bradycardic with heart rate in the 40s at the facility in EMS gave atropine with improvement in heart rate up to the 80s. According to the ER provider family reports that the patient is usually alert oriented to self only but is usually conversational in able to interact and respond. On arrival to ER patient was noted to be profoundly hypothermic with temperature of 93.6?. The patient would respond to painful stimuli or noxious stimuli by closing her eyes tightly. She would pick upper legs and cross her legs but then would not follow commands. After patient arrived to the floor she was more alert and pleasantly confused. Patient's son reported to the staff that the patient has had dementia for many years (onset before 2009) and is usually pleasantly conversant but completely disoriented at baseline. During the course of hospitalization patient was treated for the UTI and advised to completed Keflex. Patient hypothermia resolved. Patient DKA resolved as well and probably due to dehydration. Patient thrombocytopenia has been significantly improved. Patient is discharged with following instructions: Patient need to complete her Keflex 500 mg p.o. b.i.d. until 09/02/2024 Follow-up with the primary care physician within a week upon discharge. Monitor platelets Patient was admitted due to bradycardia in 40s and during the admission metoprolol was on hold and advised to discuss with the primary care physician if needs to be continued. Patient home insulin Lantus has been decreased from 35 units to 20 units and advised to reconcile with primary care physician if needs to be increased. Also advised to discuss with the primary care physician if the patient needs bolus insulin Status at Discharge Cognitive/behavioral status at discharge: Stable Time Spent with Patient Time attestation: Total time spent providing and/or coordinating discharge services: 45 minute Exam Narrative: Weight 80.5 kg BMI 29.5 Const: Other: No acute distress, overweight, appears stated age HENMT: Other: Head is normocephalic atraumatic, mucous membranes are dry, no oral pharyngeal erythema, crowded posterior oropharynx, edentulous in upper and lower jaw Eyes: Other: Pupils are equal and reactive 5-6 mm, no scleral icterus, mild conjunctival erythema Neck: Other: Large neck circumference, no JVD, no lymphadenopathy Resp: Other: Clear to auscultation bilaterally, no increased work of breathing Cardio: Other: Regular rate, regular rhythm, 2+ bilateral radial pedal pulses, no JVD, murmur noted GI: Other: Obese, soft, nontender, no suprapubic tenderness, positive bowel sounds Skin: Other: Generalized pallor, non jaundice, no petechiae Neuro: Other: Alert oriented to name only, speech is clear, no obvious facial asymmetry, tremor of the left hand, slowed responses to external stimuli, moves all extremities equally Extrem: Other: Nonpitting edema to the feet, no clubbing, no cyanosis, 5/5 steel 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 supervisor strength on the right patient has difficulty following commands for steel fabricating supervisor strength on the left moves both feet equally but unable to follow commands for testing strength of lower extremities Psych: Other: Pleasantly confused, cooperative, poor judgment and insight DS: Data Data Completed and Pending Labs on day of discharge: Labs from last 24 hours 08/31/24 08/31/24 08/31/24 12:52 11:49 07:57 WBC RBC Hgb Hct MCV MCH MCHC RDW Plt Count MPV % Immature Plt Fraction Sodium Potassium Chloride Carbon Dioxide Anion Gap BUN Creatinine Estim Creat Clear Calc Estimated GFR Glucose POC Capillary Glucose 169 H 114 H Calcium Total Bilirubin AST ALT Alkaline Phosphatase Total Protein Albumin SARS-CoV-2 RNA (RT-PCR) Negative 08/31/24 08/30/24 08/30/24 05:05 20:09 17:53 WBC 3.9 L RBC 4.28 Hgb 13.0 Hct 39.3 MCV 91.8 MCH 30.4 MCHC 33.1 RDW 14.3 Plt Count 104 L MPV 10.5 H % Immature Plt Fraction 3.8 Sodium 142 Potassium 4.0 Chloride 110 H Carbon Dioxide 29 Anion Gap 3 L BUN 16 Creatinine 1.00 Estim Creat Clear Calc 34 Estimated GFR 53 L Glucose 121 H POC Capillary Glucose 208 H 165 H Calcium 9.7 Total Bilirubin 0.8 AST 25 ALT 19 Alkaline Phosphatase 171 H Total Protein 7.0 Albumin 3.8 SARS-CoV-2 RNA (RT-PCR) Preliminary micro results at discharge 11/30/24 18:53 Blood Culture - Preliminary Blood 08/27/24 19:11 Blood Culture - Preliminary Blood Imaging Radiologist's impression: ITS Impressions Chest X-Ray 08/27/24 19:49 IMPRESSION: Mild interstitial edema. Head CT 08/27/24 19:53 IMPRESSION: No acute intracranial process. Modified Barium Swallow 08/29/24 10:20 IMPRESSION: 1. Laryngeal penetration. 2. Please refer to the speech therapy report for recommendations. Discharge Plan Discharge Attending physician on discharge: Ramon Cano Discharging Clinician: Ramon Cano Anticipated Discharge Date/Time: 08/31/24 14:47 Patient Disposition: NH Group Home/Asst Living Activity: as tolerated Diet: other - see discharge instructions Discharge Instructions: Diet: Pureed, level 4 diet, thickened liquid diet Patient need to complete her Keflex 500 mg p.o. b.i.d. until 09/02/2024 Follow-up with the primary care physician within a week upon discharge. Monitor platelets Patient was admitted due to bradycardia in 40s and during the admission metoprolol was on hold and advised to discuss with the primary care physician if needs to be continued. Patient home insulin Lantus has been decreased from 35 units to 20 units and advised to reconcile with primary care physician if needs to be increased. Also advised to discuss with the primary care physician if the patient needs bolus insulin Patient Instructions: Antibiotic Form, Urinary Tract Infection in Women (DC) Stand Alone Forms: General Discharge Information Follow-up/Referrals: Hong Stoddard MD [Primary Care Provider] - 1 Week (Patient need to complete her Keflex 500 mg p.o. b.i.d. until 09/02/2024 Follow-up with the primary care physician within a week upon discharge. Monitor platelets Patient was admitted due to bradycardia in 40s and during the admission metoprolol was on hold and advised to discuss with the primary care physician if needs to be continued. Patient home insulin Lantus has been decreased from 35 units to 20 units and advised to reconcile with primary care physician if needs to be increased. Also advised to discuss with the primary care physician if the patient needs bolus insulin) Discharge Medications: New cephalexin 500 mg Capsule 500 mg PO Q12HR Qty: 6 0RF Continued cyanocobalamin (vitamin B-12) 1,000 mcg/mL Syringe 1,000 mcg MONTHLY Rx Instructions: 29th of every month cranberry 450 mg Tablet 450 mg PO DAILY multivitamin,[id number] Tablet 1 tablet DAILY (DME) insulin syringe-needle U-100 [Monoject Insulin Safety Syring] 0.5 mL 29 gauge x 1/2 syringe MISCELLANEOUS cholecalciferol (vitamin D3) 125 mcg (5,000 unit) Tablet 125 mcg PO DAILY Aspir-81 81 mg PO DAILY atorvastatin 40 mg Tablet 40 mg PO DAILY donepezil 10 mg Tablet 10 mg PO DAILY amlodipine 10 mg Tablet 5 mg PO DAILY lisinopril 10 mg Tablet 10 mg PO DAILY memantine [Namenda] 10 mg Tablet 10 mg PO BID cetirizine 10 mg Tablet 10 mg PO DAILY magnesium hydroxide [Milk of Magnesia] 400 mg/5 mL Suspension 30 ml PO DAILY PRN (Reason: Constipation) Saccharomyces boulardii 250 mg Capsule 250 mg PO BID GenTeal Tears Moderate (PF) 0.1-0.3 % Dropperette 2 drp TID Fiasp U-100 Insulin 100 unit/mL solution 1 sliding scale dose subcut BID magnesium oxide 400 mg magnesium Tablet 400 mg PO DAILY pregabalin [Lyrica] 150 mg capsule 150 mg PO BID Qty: 60 5RF Changed insulin glargine [Basaglar KwikPen U-100 Insulin] 100 unit/mL (3 mL) insulin pen 20 unit SUBCUT HS 30 Days Qty: 10 0RF Held metoprolol tartrate 25 mg Tablet 25 mg PO BID Hold Instructions: Resume on 10/18/24. Patient was admitted due to bradycardia in 40s and during the admission metoprolol was on hold and advised to discuss with the primary care physician if needs to be continued. Date of admission: 08/28/24 07:15 Primary Care Provider: Hong Stoddard Admitting Provider: Izabel Morgan Attending physician on admission: Izabel Morgan Condition: Stable
[2024-08-31 16:41] LABS: Glucose Point of Care 138 mg/dl (65-105)
== END 2024-08-31 17:40 | DRG 871 ==
LOC: ANHED 20:15 → ANHIMU 20:55 → ANH2MED 08-31 10:43 → ANHIMU 09-01 14:39
PROVIDERS: Internal Medicine; Physician Assistant; Admitting Provider Internal Medicine; Emergency Provider Preventive Medicine Aerospace Medicine; PCP Family Medicine; Visit Provider General Practice
DX: A41.9 Sepsis, unspecified organism (principal); R65.21 Severe sepsis with septic shock; N17.9 Acute kidney failure, unspecified; N39.0 Urinary tract infection, site not specified; B96.20 Unspecified Escherichia coli [E. coli] as the cause of diseases classified elsewhere; D69.6 Thrombocytopenia, unspecified; E11.42 Type 2 diabetes mellitus with diabetic polyneuropathy; E11.65 Type 2 diabetes mellitus with hyperglycemia; E78.5 Hyperlipidemia, unspecified; F03.90 Unspecified dementia, unspecified severity, without behavioral disturbance, psychotic disturbance, mood disturbance, and anxiety; G35 Multiple sclerosis; R68.0 Hypothermia, not associated with low environmental temperature; R00.1 Bradycardia, unspecified; Z66 Do not resuscitate; Z79.82 Long term (current) use of aspirin; Z79.4 Long term (current) use of insulin
CPT/HCPCS: 36415; 70450; 71045; 80048; 80053; 81001; 82948; 83605; 83735; 84484; 85025; 85027; 85055; 85610; 85730; 86140; 87040; 87086; 87186; 87635; 87637; 92610; 92611; 93005; 96361; 96365; 99285; A9270; C1751; G0378; J0692; J1815; J3475; J7030

== ENCOUNTER 2024-09-12 12:25 | Inpatient (IN) | payer MEDICARE, MEDICAID, SELFPAY ==
[2024-09-12] VITALS (18 sets, daily range): BP systolic 120–142; BP diastolic 50–98; PULSE 88–106; RESP 18–25; TEMP 36.6–37.2; O2SAT 93–100; BMI 28.3
--- NOTE | ~2024-09-12 | XR_ITS ---
XR chest 1V portable Ordering provider: Emily Mcqueen APRN History: 84 years Female with . SOB . Comparison: None. FINDINGS: MEDIASTINUM: The cardiac silhouette is slightly enlarged. Slightly congestive venkat. LUNGS: No effusions or pneumothorax. Minimal left perihilar and bilateral lower lobe opacification is seen suggestive of pneumonia. Follow-up advised. Underlying pulmonary edema cannot be excluded. OTHER: No free air under the diaphragm. IMPRESSION: Bilateral pneumonia. Underlying pulmonary edema is not excluded Reviewed, dictated and finalized at location A. PACKER
--- NOTE | ~2024-09-12 | XR_ITS ---
Portable chest x-ray Comparison: 09/12/2024 Clinical History: Increased secretions Findings: There is probable left basilar airspace disease. Right lung clear. Cardiomediastinal silh ouette is stable. Bones and soft tissues are unremarkable. Impression: Probable left basilar atelectasis versus pneumonia. Correlate clinically. Reviewed, dictated and finalized at [facility]. OSOFT BI CONSULTANT Impression: Probable left basilar atelectasis versus pneumonia. Correlate clinically.
--- NOTE | ~2024-09-12 | XR_ITS ---
XR chest 1V portable Ordering provider: Jose Markham MD History: 84 years Female with . SOA . Comparison: August 27, 2024 FINDINGS: MEDIASTINUM: The cardiac silhouette is mildly enlarged. Congestive venkat. LUNGS: No effusions or pneumothorax. Bilateral interstitial changes. Minimal opacification the left lung base. OTHER: No free air under the diaphragm. Dextroscoliosis. IMPRESSION: Cardiomegaly with cardiac decompensation and pulmonary edema. Superimposed pneumonitis is not exclude d. Left basilar atelectasis versus pneumonia. Reviewed, dictated and finalized at location A. ER HAND IMPRESSION: Cardiomegaly with cardiac decompensation and pulmonary edema. Superimposed pneu monitis is not excluded. Left basilar atelectasis versus pneumonia.
--- NOTE | ~2024-09-12 | XR_ITS ---
MODIFIED ESOPHAGRAM HISTORY: Dysphagia. TECHNIQUE: Modified barium esophagram was performed on 09/16/2024. I administered fluoroscopy and per formed the exam with speech pathologist. Patient was seated for lateral fluoroscopic imaging for ing estion of thin liquids, pudding, solids and quantified amounts, followed by thin liquids in uncontrol led amounts. This was recorded on tape. A single fluoroscopic spot image was also recorded. The DAP f or this procedure was 0.815 Gycm2. The amount of fluoroscopy time used during this procedure was 1.2 minutes. FINDINGS: Oral stage: Reduced labial seal/lip tension and reduced lingual movement.. Pharyngeal stage: Reduced laryngeal elevation and tongue base retraction. There is vallecular and pir iform sinus residue. There is laryngeal penetration without aspiration.. Cervical/esophageal stage: Adequate function. IMPRESSION: Oropharyngeal dysphagia with laryngeal penetration without aspiration. Please correlate with speech pathologist findings and specific feeding recommendations. Reviewed, dictated and finalized at location A. TRIANGULATION SPECIALIST IMPRESSION: Oropharyngeal dysphagia with laryngeal penetration without aspirati on. Please correlate with speech pathologist findings and specific feeding rec ommendations.
--- NOTE | ~2024-09-12 | MR_ITS ---
EXAMINATION: MR brain/brain stem wo con DATE: 09/16/2024 08:52 INDICATION: Altered mental status. Dysphagia. TECHNIQUE: Magnetic resonance imaging (MRI) of the brain and brainstem was performed without intraven ous contrast. Sequences included sagittal and axial T1-weighted SE, axial diffusion-weighted FS SE, a xial T2*-weighted GRE, axial T2-weighted FLAIR, and axial T2-weighted FSE. Postcontrast axial and cor onal T1-weighted SE was obtained. Apparent diffusion coefficient (ADC) maps were created. COMPARISON: None. FINDINGS: There are no areas of restricted diffusion to suggest acute infarction. No intracranial hemorrhage or abnormal intracranial mass lesion. There are scattered areas of nonspecific increased T2-weighted si gnal intensity in the cerebral white matter, predominantly involving the deep and periventricular whi te matter which is within normal limits for age. There are no intraparenchymal signal abnormalities s een on the other pulse sequences. Symmetric prominence of the sulci and ventricles consistent with mi ld age-appropriate diffuse cerebral volume loss. There are no abnormal extra-axial fluid collections. Flow voids are seen in the cerebral arteries on the T2-weighted sequences consistent with their expe cted patency. Visualized orbits and soft tissues are unremarkable. IMPRESSION: 1. Normal aging brain with mild age-appropriate atrophy and moderate scattered mesenteric white matte r T2 hyperintensity consistent with chronic small vessel ischemic disease. Reviewed, dictated and finalized at location A. AVER MACHINE IMPRESSION: 1. Normal aging brain with mild age-appropriate atrophy and moderate scattered mesenteric white matter T2 hyperintensity consistent with chronic small vessel ischemic disease.
--- NOTE | ~2024-09-12 | CT_ITS ---
EXAMINATION: CT brain wo con DATE: 09/12/2024 18:08 INDICATION: Altered mental status. TECHNIQUE: Computed tomography (CT) of the head was performed without intravenous contrast. The mA wa s adjusted according to patient size. Iterative reconstruction technique was employed. The dose-lengt h product was 681.00 mGy-cm. COMPARISON: Head CT 08/27/2024 FINDINGS: There are scattered areas of low attenuation in the cerebral white matter. There is no intr acranial hemorrhage, acute infarction, or abnormal intracranial mass lesion. The ventricles are paula l in size. The orbits are normal. There is mild mucosal thickening in the ethmoid sinuses. The mastoi d air cells are normal. IMPRESSION: 1. Stable moderate nonspecific cerebral white matter disease, which likely represents chronic small v essel ischemic disease. Reviewed, dictated and finalized at location A. ICAL AND ADMINISTRATIVE WORKERS IMPRESSION: 1. Stable moderate nonspecific cerebral white matter disease, which likely repr esents chronic small vessel ischemic disease.
--- NOTE | ~2024-09-12 | CT_ITS ---
EXAMINATION: CTA chest abdomen pelvis DATE: 09/12/2024 18:08 INDICATION: Lactic acidosis. TECHNIQUE: Computed tomographic angiography (CTA) of the chest, abdomen, and pelvis was performed wit h 100 mL Omnipaque-350 intravenous contrast. Automated exposure control and iterative reconstruction technique were employed. The dose-length product was 1334.44 mGy-cm. Maximum intensity projection 3D- reconstructions of the aorta and other arteries were constructed by the technologist on a separate wo rkstation. COMPARISON: Chest CT 10/23/2021 FINDINGS: CHEST CTA: The lungs demonstrate mild atelectasis. There is a 5 mm nodule in right upper lobe. No pleural effusi on. The heart size is normal. There are coronary artery calcifications. No pericardial effusion. Aort ic atherosclerosis is noted. No aneurysm or dissection. There is severe cervical spondylosis and mild thoracic spondylosis. There is mild chronic height loss of T7 and T8 vertebral bodies. ABDOMEN AND PELVIS CTA: The liver is normal. There are changes of cholecystectomy. The pancreas and adrenal glands are normal . There is cortical thinning of the kidneys. The bladder is decompressed by a Zhang catheter. There a re no dilated loops of bowel. The appendix is normal. There are no pathologically enlarged lymph node s. There is no free intraperitoneal fluid. There is calcified atherosclerosis of the aorta and many o f the other arteries. There is moderate stenosis of right common iliac artery. There is no significan t stenosis of celiac axis, superior mesenteric artery, inferior mesenteric artery, or the renal arter ies. 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 There i s mild lumbar spondylosis. IMPRESSION: 1. 5 mm pulmonary nodule, probably benign. Consider noncontrast low-dose chest CT in 6-12 months. 2. Moderate stenosis of right common iliac artery. Reviewed, dictated and finalized at location A. UCTION CONTROLLER
--- NOTE | ~2024-09-12 | XR_ITS ---
EXAMINATION: XR chest 1V portable DATE: 09/13/2024 21:28 INDICATION: Increasing oxygen demand. TECHNIQUE: A single frontal view of the chest was obtained. COMPARISON: Chest single view at 8:57 AM, chest CT 09/12/2024 FINDINGS: There are airspace opacities at the lung bases. No pleural effusion or pneumothorax. The he art size is normal. Main pulmonary artery is enlarged, consistent with pulmonary arterial hypertensio n. IMPRESSION: 1. Airspace opacities at the lung bases with worsening on the left, consistent with atelectasis versu s pneumonia. Reviewed, dictated and finalized at location A. ING BOOKS LIBRARY CLERK IMPRESSION: 1. Airspace opacities at the lung bases with worsening on the left, consistent with atelectasis versus pneumonia.
[2024-09-12 13:31] LABS: Influenza A QL RT-PCR Negative (Negative); Influenza B QL RT-PCR Negative (Negative); RSV RNA, RT-PCR Negative (Negative); SARS-CoV-2 RNA PCR Negative (Negative)
[2024-09-12 13:31] LABS: Basophils Percent Auto 0.4 % (0.2-1.2); Eosinophils Percent Auto 0.2 % (0-4.4); Hematocrit 42.5 % (37.0-47.0); Hemoglobin 13.7 g/dL (12.0-15.0); Immature Platelet Fraction Pct 4.7 % (0.9-11.2); Lymphocytes Absolute Auto 0.84 K/mm3 (0.9-3.2); Lymphocytes Percent Auto 15.6 % (18.3-44.2); Mean Corpuscular HGB Conc 32.2 g/dl (32-36); Mean Corpuscular Volume 93.2 fl (80-100); Mean Platelet Volume 10.7 fl (7.4-10.4); Monocytes Absolute Auto 0.4 K/mm3 (0.1-0.6); Monocytes Percent Auto 6.7 % (2.6-8.5); Neutrophils Absolute Auto 4.1 K/mm3 (1.3-6.7); Neutrophils Percent Auto 77.1 % (45.5-73.1); Platelet Count Result 138 k/mm3 (150-375); Red Blood Count 4.56 M/mm3 (4.2-5.4); Red Cell Distribution Width 14.8 % (11.5-14.5); White Blood Count 5.4 K/mm3 (4.5-10.0)
[2024-09-12 13:43] LABS: Lactic Acid Reflex 4.6 mmol/L (0.7-2.0)
[2024-09-12 13:44] LABS: Alanine Aminotransferase 30 U/L (6-35); Albumin Level 3.9 g/dL (3.5-5.1); Alkaline Phosphatase 243 U/L (38-126); Anion Gap 7 mmol/L (4-12); Aspartate Amino Transferase 30 U/L (14-36); Bilirubin,Total 0.9 mg/dL (0.2-1.3); Blood Urea Nitrogen 25 mg/dL (7-17); Calcium 9.9 mg/dL (8.4-10.2); Carbon Dioxide 23 mmol/L (22-30); Chloride 110 mmol/L (98-107); Estimated CRCL calculation 34 ml/min; Estimated Glomerular Filt Rate 43; Glucose 280 mg/dL (65-110); Potassium 4.4 mmol/L (3.4-5.0); Sodium 140 mmol/L (137-145)
[2024-09-12 14:08] LABS: NT Pro B Type Natriuretic Pept 170 pg/mL (19.9-100)
--- NOTE | 2024-09-12 14:20 | ED_ITS ---
HPI - General Adult General Chief complaint: Shortness of Breath/Dyspnea Stated complaint: SOB, not acting right Time Seen by Provider: 09/12/24 12:35 History of Present Illness HPI narrative: Patient is an 84-year-old female who presents ER with shortness of breath and apparently being more confused. History of dementia. Patient with gurgling breath sounds I can be heard from the door way. Reports of fever today. Patient hypoxic prior to arrival and is on supplemental oxygen. Unable to provide any history. Related Data Home Medications ?Medication ?Instructions ?Recorded ?Confirmed ?Last Taken ?Type Aspir-81 81 mg PO DAILY 10/18/21 09/12/24 09/12/24 07:45 History 81 mg amlodipine 10 mg tablet 5 mg PO DAILY 10/18/21 09/12/24 09/12/24 07:45 History 5 mg atorvastatin 40 mg tablet 40 mg PO DAILY 10/18/21 09/12/24 09/12/24 07:45 History 40 mg donepezil 10 mg tablet 10 mg PO DAILY 10/18/21 09/12/24 09/12/24 07:45 History 10 mg lisinopril 10 mg tablet 10 mg PO DAILY 10/18/21 09/12/24 09/12/24 07:45 History memantine 10 mg tablet (Namenda) 10 mg PO BID 10/18/21 09/12/24 09/12/24 07:45 History 10 mg metoprolol tartrate 25 mg tablet 25 mg PO BID 10/18/21 09/12/24 Unknown History cholecalciferol (vitamin D3) 125 125 mcg PO DAILY 10/23/21 09/12/24 09/12/24 07:45 History mcg (5,000 unit) tablet 125 mcg cranberry fruit 450 mg tablet 450 mg PO DAILY 10/23/21 09/12/24 09/12/24 07:45 History (cranberry) 450 mg cyanocobalamin (vitamin B-12) See Rx Instructions .Route .COMPLEX 10/23/21 09/12/24 08/31/24 History 1,000 mcg/mL injection syringe insulin syringe-needle U-100 0.5 10/23/21 09/12/24 Unknown History mL 29 gauge x 1/2 (Monoject Insulin Safety Syringe) Saccharomyces boulardii 250 mg 250 mg PO BID 11/09/12/24 09/12/24 07:45 History capsule 250 mg cetirizine 10 mg tablet 10 mg PO DAILY 08/27/24 09/12/24 09/12/24 07:45 History 10 mg dextran 70-hypromellose (PF) 0.1 2 drp EACH EYE TID 08/27/24 09/12/24 09/12/24 History %-0.3 % eye drops in a dropperette (GenTeal Tears Moderate (PF)) insulin aspart (niacinamide) 1 sliding scale dose subcut BID 08/27/24 09/12/24 09/12/24 History (U-100) 100 unit/mL subcutaneous solution (Fiasp U-100 Insulin) magnesium hydroxide 400 mg/5 mL 30 ml PO DAILY PRN Constipation 08/27/24 09/12/24 09/11/24 22:15 History oral suspension (Milk of Magnesia) 30 mL magnesium oxide 400 mg PO DAILY 08/27/24 09/12/24 09/12/24 07:45 History 400 mg Allergies Allergy/AdvReac Type Severity Reaction Status Date / Time metronidazole Allergy Unknown Verified 09/08/24 11:21 Review of Systems 2 Review of Systems: ROS unobtainable: Yes unobtainable due to medical condition PMFSH Past Medical History Medical History (Updated 09/12/24 @ 21:42 by Jose Markham MD) Hyperlipidemia Hypertension CHF (congestive heart failure) Neuropathy, diabetic Pneumonia due to COVID-19 virus Type 2 diabetes mellitus with hyperglycemia Multiple sclerosis Dementia Surgical History Surgical History Surgical history unknown Family History Family History Other Unknown family medical history Social History Social History Social History: Ms. Santoyo resides in a [facility] for many years. She is a full code and her son Osmar is her surrogate decision maker. Information obtained from patient's son, Osmar. Smoking status: Unknown if ever smoked Alcohol intake: unknown Substance use: unknown Spiritual care concerns: No (unknown) Exam 2 Narrative: GENERAL: Chronically ill-appearing, obese, and in no acute distress. HEAD: Normocephalic, atraumatic. ENT: Mucous membranes moist. NECK: Supple. CHEST: Coarse rales bilaterally. No respiratory distress. HEART: Regular rate and rhythm. Normal peripheral pulses. ABDOMEN: Soft, nontender, nondistended. EXTREMITIES: Normal range of motion. 1+ edema. SKIN: Warm, dry, no rash. NEURO: Alert and oriented x 1 Course Course Emergency Course: Initially held off on fluid bolus due to concern for volume overload however BNP is within normal range I think patient is suffering from pneumonia/sepsis. 30 milliliter/kilogram fluid bolus ordered as well as broad-spectrum antibiotics. Blood cultured. Admit to the hospitalist service. Vital Signs Vital signs: Vital Signs Temperature 97.8 F 09/12/24 12:26 Pulse Rate 88 09/12/24 12:26 Respiratory Rate 20 09/12/24 12:26 Blood Pressure 122/98 H 09/12/24 12:26 Pulse Oximetry 97 09/12/24 12:26 Oxygen Delivery Room Air 09/12/24 12:26 Temperature 98.9 F 09/12/24 20:02 Pulse Rate 97 09/12/24 20:48 Respiratory Rate 18 09/12/24 20:48 Blood Pressure 125/52 L 09/12/24 20:02 Pulse Oximetry 97 09/12/24 20:49 Oxygen Delivery Nasal Cannula 09/12/24 14:03 Oxygen Flow Rate 2 09/12/24 20:49 Medical Decision Making Vital Signs Vital Signs: Vital Signs Temperature 97.8 F 09/12/24 12:26 Pulse Rate 88 09/12/24 12:26 Respiratory Rate 20 09/12/24 12:26 Blood Pressure 122/98 H 09/12/24 12:26 Pulse Oximetry 97 09/12/24 12:26 Oxygen Delivery Room Air 09/12/24 12:26 Temperature 98.9 F 09/12/24 20:02 Pulse Rate 97 09/12/24 20:48 Respiratory Rate 18 09/12/24 20:48 Blood Pressure 125/52 L 09/12/24 20:02 Pulse Oximetry 97 09/12/24 20:49 Oxygen Delivery Nasal Cannula 09/12/24 14:03 Oxygen Flow Rate 2 09/12/24 20:49 Lab Data 09/12/24 13:16 09/12/24 13:16 Labs: Lab Results 09/12/24 09/12/24 Range/Units 12:49 13:16 WBC 5.4 (4.5-10.0) K/mm3 RBC 4.56 (4.2-5.4) M/mm3 Hgb 13.7 (12.0-15.0) g/dL Hct 42.5 (37.0-47.0) % MCV 93.2 (80-100) fl MCH 30.0 (26-34) pg MCHC 32.2 (32-36) g/dl RDW 14.8 H (11.5-14.5) % Plt Count 138 L (150-375) k/mm3 MPV 10.7 H (7.4-10.4) fl Immature Gran % (Auto) 0.0 (0-0.5) % Neut % (Auto) 77.1 H (45.5-73.1) % Lymph % (Auto) 15.6 L (18.3-44.2) % [place] % (Auto) 6.7 (2.6-8.5) % Eos % (Auto) 0.2 (0-4.4) % Baso % (Auto) 0.4 (0.2-1.2) % Lymph # (Auto) 0.84 L (0.9-3.2) K/mm3 [place] # (Auto) 0.4 (0.1-0.6) K/mm3 Eos # (Auto) 0.0 (0-0.3) K/mm3 Baso # (Auto) 0.0 (0.0-0.1) K/mm3 Abs Immat Gran (auto) 0.00 (0.00-0.031) K/mm3 Absolute Neuts (auto) 4.1 (1.3-6.7) K/mm3 Absolute Nucleated RBC 0.000 (0.0-0.012) K/mm3 Nucleated RBC % 0.0 (0.0-0.2) % % Immature Plt Fraction 4.7 (0.9-11.2) % Sodium 140 (137-145) mmol/L Potassium 4.4 (3.4-5.0) mmol/L Chloride 110 H (98-107) mmol/L Carbon Dioxide 23 (22-30) mmol/L Anion Gap 7 (4-12) mmol/L BUN 25 H (7-17) mg/dL Creatinine 1.20 H (0.7-1.0) mg/dL Estim Creat Clear Calc 34 ml/min Estimated GFR 43 L (59 - ) Glucose 280 H (65-110) mg/dL Lactic Acid 4.6 H* (0.7-2.0) mmol/L Calcium 9.9 (8.4-10.2) mg/dL Phosphorus 3.9 (2.5-4.5) mg/dL Magnesium 2.2 (1.6-2.3) mg/dL Total Bilirubin 0.9 (0.2-1.3) mg/dL AST 30 (14-36) U/L ALT 30 (6-35) U/L Alkaline Phosphatase 243 H (38-126) U/L NT-Pro-B Natriuret Pep 170 H (19.9-100) pg/mL Total Protein 7.0 (6.3-8.2) g/dL Albumin 3.9 (3.5-5.1) g/dL TSH 2.750 (0.465-4.680) uIU/mL Influenza A (RT-PCR) Negative (Negative) Influenza B (RT-PCR) Negative (Negative) RSV (RT-PCR) Negative (Negative) SARS-CoV-2 RNA (RT-PCR) Negative (Negative) Critical Care Time Critical Care Time Critical Care Time: Yes Total Critical Care Time: 35 Discharge Plan Discharge Clinical Impression: Pneumonia Qualifiers: Pneumonia type: due to unspecified organism Laterality: bilateral Lung location: unspecified part of lung Qualified Code(s): J18.9 - Pneumonia, unspecified organism Sepsis Qualifiers: Sepsis type: sepsis due to unspecified organism Sepsis acute organ dysfunction status: with acute organ dysfunction Severe sepsis acute organ dysfunction type: acute renal failure Acute renal failure type: unspecified Severe sepsis shock status: with septic shock Qualified Code(s): A41.9 - Sepsis, unspecified organism Patient Disposition: Still a Patient Condition: Stable
[2024-09-12] MEDS: SODIUM CHLORIDE 0.9% IV 1,000 ML 999 ML IV CONT ×2 (14:41→15:21)
[2024-09-12] MEDS: AZITHROMYCIN 500 MG/NS 250 ML 500 MG/250 ML BAG 250 MG IVPB (15:20)
--- NOTE | 2024-09-12 15:33 | PC.NURSE ---
Notified patient's son that patient will be admitted to room 205.
--- NOTE | 2024-09-12 15:39 | PM.IMPN ---
Subjective Date/time seen: 09/12/24 15:39 Interval history: This is an 84 year old patient with diabetic neuropathy, type 2 diabetes mellitus, multiple sclerosis, dementia, CHF, hypertension, hyperlipidemia who presented from [facility] to the hospital with shortness of breath/dyspnea. Staff at [facility] found patient making gurgling sounds and was not acting right per their report. EMS was called and gave patient a DuoNeb as they found her with an SpO2 of 86% on room air. Patient had a low-grade temp this morning and [facility] gave her a dose of Tylenol. They noted her to have a cough as well. On arrival to the ED patient was saturating 97% on room air and her vital signs were stable. Patient was recently hospitalized on 08/27/2024 through 08/31/2024 and was treated for urinary tract infection and completed a course of Keflex. Workup in the hospital included a chest x-ray which shown cardiomegaly with cardiac decompensation and pulmonary edema, left basilar atelectasis versus pneumonia. Initial labs showed a normal white blood cell count of 5.4, platelet count 138, creatinine 1.20, EGFR 43, lactic acid 4.6, alkaline phosphate 243, proBNP 170. Respiratory panel was negative for influenza a and B, RSV, COVID. Blood cultures were ordered and obtained. EKG showed sinus rhythm with a rate of 76, QTC 459. Patient was given 2400 mL of normal saline, Rocephin, and azithromycin while in the ED. Review of Systems Review of Systems: ROS unobtainable: Yes unobtainable due to mental status Exam Narrative: General: In no acute distress, well nourished Head: atraumatic, no encephalopathy Eyes: EOMI, PERRLA, sclera clear ENT: moist mucous membranes, nasal passages clear Neck: supple, no JVD, no adenopathy, trachea midline Cardiac: Normal S1 and S2. No murmur, gallops or friction rubs, peripheral pulses intact. Respiratory: Lungs clear to auscultation, no adventitious lung sounds Gastrointestinal: soft, non-distended, non-tender, normoactive bowel sounds. : voiding without difficulty. Extremities: moves all extremities well, no edema, good ROM, strength 5/5 Skin: clean, dry, intact. No wounds or lesions. Neuro: Alert and oriented x4, cranial nerves intact, no neuro deficits. Psych: normal mood, normal affect, interactive Objective Data Vital Signs Vital Signs: Vital Signs - 24 hr 09/12/24 12:26 09/12/24 12:32 09/12/24 12:33 Temperature 97.8 F Pulse Rate 88 97 Respiratory Rate 20 Blood Pressure 122/98 H Pulse Oximetry 97 94 Oxygen Delivery Room Air Room Air Oxygen Flow Rate 09/12/24 12:33 09/12/24 12:35 09/12/24 12:47 Temperature 97.8 F Pulse Rate 100 Respiratory Rate 22 H Blood Pressure 122/98 H Pulse Oximetry 93 94 94 Oxygen Delivery Room Air Nasal Cannula Oxygen Flow Rate 4 09/12/24 13:37 09/12/24 14:03 09/12/24 14:45 Temperature 98 F Pulse Rate 98 Respiratory Rate 25 H Blood Pressure 142/58 H Pulse Oximetry 98 97 93 Oxygen Delivery Nasal Cannula Nasal Cannula Oxygen Flow Rate 3 2 09/12/24 15:23 Temperature Pulse Rate 96 Respiratory Rate 25 H Blood Pressure 120/79 Pulse Oximetry 96 Oxygen Delivery Oxygen Flow Rate Intake/Output Intake/Output: Intake & Output 09/09/24 09/10/24 09/11/24 09/12/24 23:59 23:59 23:59 23:59 Intake Total 1050 Balance 1050 Meds/Results Medications: Active Medications Generic Name Dose Route Start Last Admin Trade Name Freq PRN Reason Stop Dose Admin Acetaminophen 650 mg 09/12/24 14:49 Acetaminophen 325 Mg Tablet PO Q4H PRN Mild Pain (1-3) or Fever Hydrocodone Bitart/Acetaminophen 1 tab 09/12/24 14:49 Hydrocodone/Acetaminophen (*Crx) 5-325 Mg Tablet PO Q4H PRN Pain Rated 4-6 Albuterol/Ipratropium 3 ml 09/12/24 20:00 Ipratropium 0.5 Mg/Albuterol Sulfate 2.5 Mg Ampul.Neb 3 Ml NEBULIZE Q6HRT ELVIRA Ceftriaxone Sodium 1 gm in 50 mls @ 100 mls/hr 09/13/24 14:00 Rocephin 1 Gm/Ns 50 Ml IVPB Q24H ELVIRA Azithromycin 500 mg in 250 mls @ 250 mls/hr 09/13/24 15:00 Zithromax IVPB Q24H ELVIRA Morphine Sulfate 2 mg 09/12/24 14:49 Morphine Sulfate (*Crx) 2 Mg/Ml Inj IV PUSH Q2H PRN Pain Rated 7-10 Promethazine HCl 12.5 mg 09/12/24 14:49 Promethazine Hcl 25 Mg/Ml Ampul IV PUSH Q6H PRN Nausea Radiology Results: ITS Impressions Chest X-Ray 09/12/24 13:11 IMPRESSION: Cardiomegaly with cardiac decompensation and pulmonary edema. Superimposed pneumonitis is not excluded. Left basilar atelectasis versus pneumonia. Labs Labs: Laboratory Results - last 24 hr 09/12/24 09/12/24 12:49 13:16 WBC 5.4 RBC 4.56 Hgb 13.7 Hct 42.5 MCV 93.2 MCH 30.0 MCHC 32.2 RDW 14.8 H Plt Count 138 L MPV 10.7 H Immature Gran % (Auto) 0.0 Neut % (Auto) 77.1 H Lymph % (Auto) 15.6 L [place] % (Auto) 6.7 Eos % (Auto) 0.2 Baso % (Auto) 0.4 Lymph # (Auto) 0.84 L [place] # (Auto) 0.4 Eos # (Auto) 0.0 Baso # (Auto) 0.0 Abs Immat Gran (auto) 0.00 Absolute Neuts (auto) 4.1 Absolute Nucleated RBC 0.000 Nucleated RBC % 0.0 % Immature Plt Fraction 4.7 Sodium 140 Potassium 4.4 Chloride 110 H Carbon Dioxide 23 Anion Gap 7 BUN 25 H Creatinine 1.20 H Estim Creat Clear Calc 34 Estimated GFR 43 L Glucose 280 H Lactic Acid 4.6 H* Calcium 9.9 Total Bilirubin 0.9 AST 30 ALT 30 Alkaline Phosphatase 243 H NT-Pro-B Natriuret Pep 170 H Total Protein 7.0 Albumin 3.9 Influenza A (RT-PCR) Negative Influenza B (RT-PCR) Negative RSV (RT-PCR) Negative SARS-CoV-2 RNA (RT-PCR) Negative
--- NOTE | 2024-09-12 16:09 | P.HP_ITS ---
H&P: HPI History of Present Illness Date/Time: 09/12/24 16:09 Chief Complaint: Shortness of breath/dyspnea Narrative: This is an 84 year old patient with diabetic neuropathy, type 2 diabetes mellitus, multiple sclerosis, dementia, CHF, hypertension, hyperlipidemia who presented from [facility] to the hospital with shortness of breath/dyspnea. Staff at [facility] found patient making gurgling sounds and was not acting right per their report. EMS was called and gave patient a DuoNeb as they found her with an SpO2 of 86% on room air. Patient had a low-grade temp this morning and [facility] gave her a dose of Tylenol. They noted her to have a cough as well. On arrival to the ED patient was saturating 97% on room air and her vital signs were stable. Patient was recently hospitalized on 08/27/2024 through 08/31/2024 and was treated for urinary tract infection and completed a course of Keflex. Workup in the hospital included a chest x-ray which shown cardiomegaly with cardiac decompensation and pulmonary edema, left basilar atelectasis versus pneumonia. Initial labs showed a normal white blood cell count of 5.4, platelet count 138, creatinine 1.20, EGFR 43, lactic acid 4.6, alkaline phosphate 243, proBNP 170. Respiratory panel was negative for influenza a and B, RSV, COVID. Blood cultures were ordered and obtained. EKG showed sinus rhythm with a rate of 76, QTC 459. Patient was given 2400 mL of normal saline, Rocephin, and azithromycin while in the ED. Review of Systems Review of Systems: ROS unobtainable: Yes unobtainable due to mental status PMFSH Past Medical History Medical History (Updated 09/12/24 @ 18:02 by Emily Mcqueen, SHELDON) Hyperlipidemia Hypertension CHF (congestive heart failure) Neuropathy, diabetic Pneumonia due to COVID-19 virus Type 2 diabetes mellitus with hyperglycemia Multiple sclerosis Dementia Surgical History Surgical History Surgical history unknown Family History Family History Other Unknown family medical history Social History Social History Social History: Ms. Santoyo resides in a group home for many years. She is a full code and her son Osmar is her surrogate decision maker. Information obtained from patient's son, Osmar. Smoking status: Unknown if ever smoked Alcohol intake: unknown Substance use: unknown Spiritual care concerns: No (unknown) Meds Home Medications and Allergies Home Medications ?Medication ?Instructions ?Recorded ?Confirmed ?Type Aspir-81 81 mg PO DAILY 10/18/21 09/12/24 History amlodipine 10 mg tablet 5 mg PO DAILY 10/18/21 09/12/24 History atorvastatin 40 mg tablet 40 mg PO DAILY 10/18/21 09/12/24 History donepezil 10 mg tablet 10 mg PO DAILY 10/18/21 09/12/24 History lisinopril 10 mg tablet 10 mg PO DAILY 10/18/21 09/12/24 History memantine 10 mg tablet (Namenda) 10 mg PO BID 10/18/21 09/12/24 History metoprolol tartrate 25 mg tablet 25 mg PO BID 10/18/21 09/08/24 History cholecalciferol (vitamin D3) 125 125 mcg PO DAILY 10/23/21 09/12/24 History mcg (5,000 unit) tablet cranberry fruit 450 mg tablet 450 mg PO DAILY 10/23/21 09/12/24 History (cranberry) cyanocobalamin (vitamin B-12) See Rx Instructions .Route .COMPLEX 10/23/21 09/12/24 History 1,000 mcg/mL injection syringe insulin syringe-needle U-100 0.5 10/23/21 09/08/24 History mL 29 gauge x 1/2 (Monoject Insulin Safety Syringe) multivitamin,pr-nrea-Qs-FA-min 1 tablet DAILY 10/23/21 09/08/24 History pregabalin 150 mg capsule (Lyrica) 150 mg PO BID #60 caps 04/25/24 09/08/24 Rx Saccharomyces boulardii 250 mg 250 mg PO BID 08/27/24 09/08/24 History capsule cetirizine 10 mg tablet 10 mg PO DAILY 08/27/24 09/12/24 History dextran 70-hypromellose (PF) 0.1 2 drp TID 08/27/24 09/08/24 History %-0.3 % eye drops in a dropperette (GenTeal Tears Moderate (PF)) insulin aspart (niacinamide) 1 sliding scale dose subcut BID 08/27/24 09/08/24 History (U-100) 100 unit/mL subcutaneous solution (Fiasp U-100 Insulin) magnesium hydroxide 400 mg/5 mL 30 ml PO DAILY PRN Constipation 08/27/24 09/12/24 History oral suspension (Milk of Magnesia) magnesium oxide 400 mg PO DAILY 08/27/24 09/12/24 History insulin glargine 100 unit/mL (3 20 unit (0.2 mL) subcut HS 30 days 08/31/24 09/08/24 Rx mL) subcutaneous pen (Basaglar #10 mL KwikPen U-100 Insulin) Allergies Allergy/AdvReac Type Severity Reaction Status Date / Time metronidazole Allergy Unknown Verified 09/08/24 11:21 Vital Signs Vital Signs - 24 hr 09/12/24 12:26 09/12/24 12:32 09/12/24 12:33 Temperature 97.8 F Pulse Rate 88 97 Respiratory Rate 20 Blood Pressure 122/98 H Pulse Oximetry 97 94 Oxygen Delivery Room Air Room Air Oxygen Flow Rate 09/12/24 12:33 09/12/24 12:35 09/12/24 12:47 Temperature 97.8 F Pulse Rate 100 Respiratory Rate 22 H Blood Pressure 122/98 H Pulse Oximetry 93 94 94 Oxygen Delivery Room Air Nasal Cannula Oxygen Flow Rate 4 09/12/24 13:37 09/12/24 14:03 09/12/24 14:45 Temperature 98 F Pulse Rate 98 Respiratory Rate 25 H Blood Pressure 142/58 H Pulse Oximetry 98 97 93 Oxygen Delivery Nasal Cannula Nasal Cannula Oxygen Flow Rate 3 2 09/12/24 15:23 Temperature Pulse Rate 96 Respiratory Rate 25 H Blood Pressure 120/79 Pulse Oximetry 96 Oxygen Delivery Oxygen Flow Rate Exam Narrative: General: In no acute distress, well nourished Head: acute encephalopathy Eyes: PERRLA, sclera clear ENT: moist mucous membranes, nasal passages clear Neck: supple, no JVD, no adenopathy, trachea midline Cardiac: Normal S1 and S2. RRR, No murmur, gallops or friction rubs, peripheral pulses intact. Respiratory: Lungs course bilaterally, tachypneic, mild wheezing currently on 2L NC Gastrointestinal: soft, non-distended, non-tender, normoactive bowel sounds. : voiding Extremities: moves all extremities, no edema Skin: clean, dry, intact. No wounds or lesions. Neuro: Alert to voice, open eyes briefly on command but then falls right back to sleep, minimally interactive Psych: unable to assess fully due to mental status H&P: Results Labs Labs: Short CBC 09/12/24 Range/Units 13:16 WBC 5.4 (4.5-10.0) K/mm3 Hgb 13.7 (12.0-15.0) g/dL Hct 42.5 (37.0-47.0) % Plt Count 138 L (150-375) k/mm3 BMP 09/12/24 13:16 Sodium 140 Potassium 4.4 Chloride 110 H Carbon Dioxide 23 BUN 25 H Creatinine 1.20 H Glucose 280 H Calcium 9.9 Liver Function 09/12/24 Range/Units 13:16 Total Bilirubin 0.9 (0.2-1.3) mg/dL AST 30 (14-36) U/L ALT 30 (6-35) U/L Alkaline Phosphatase 243 H (38-126) U/L Albumin 3.9 (3.5-5.1) g/dL Imaging Chest x-ray: Radiologist's impression: XR chest 1V portable Ordering provider: Jose Markham MD History: 84 years Female with . SOA . Comparison: August 27, 2024 FINDINGS: MEDIASTINUM: The cardiac silhouette is mildly enlarged. Congestive venkat. LUNGS: No effusions or pneumothorax. Bilateral interstitial changes. Minimal opacification the left lung base. OTHER: No free air under the diaphragm. Dextroscoliosis. IMPRESSION: Cardiomegaly with cardiac decompensation and pulmonary edema. Superimposed pneumonitis is not excluded. Left basilar atelectasis versus pneumonia. Reviewed, dictated and finalized at location A. BASTER Assessment and Plan Assessment and plan (1) Acute respiratory failure with hypoxia: Code(s): J96.01 - Acute respiratory failure with hypoxia Status: Acute Assessment and Plan: * Patient found at group home with oxygen saturation of 86% on room air with gurgling breath sounds. EMS gave patient a DuoNeb in route to the hospital. * Likely secondary to hospital acquired pneumonia * Currently on 2 L nasal cannula, normally room air at baseline * Continue to wean O2 for sat greater than 92% * Continue DuoNebs * Chest x-ray showing cardiomegaly with cardiac decompensation and pulmonary edema, left basilar atelectasis versus pneumonia * Continue Rocephin and azithromycin * ABG showing pH of 7.267, pCO2 37.6, PO2 67.8, bicarb 16.8 with a base excess of -9.4---metabolic acidosis, will start bicarb infusion * Echo ordered * CTA of the chest ordered (2) Metabolic acidosis: Code(s): E87.20 - Acidosis, unspecified Status: Acute Assessment and Plan: * ABG showing pH of 7.267, pCO2 37.6, PO2 67.8, bicarb 16.8 with a base excess of -9.4 * Bicarb infusion started * CTA of the chest/abdomen/pelvis showed 5 mm pulmonary nodule from doubly benign, moderate 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 * Lactic acid increasing from 4.6 initially now to 7.5 * will add vancomycin and flagyl as well. (3) Lactic acidosis: Code(s): E87.20 - Acidosis, unspecified Status: Acute Assessment and Plan: * Lactic acid 4.6 and now is 7.5-- secondary to metabolic acidosis * Started on bicarb infusion * CTA of the chest/abdomen/pelvis showed 5 mm pulmonary nodule from doubly benign, moderate 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 (4) Altered mental status: Qualifiers: Altered mental status type: stupor Qualified Code(s): R40.1 - Stupor Code(s): R41.82 - Altered mental status, unspecified Status: Acute Assessment and Plan: * Normally alert oriented x2 at baseline. She does have dementia and lives at [facility]. * Recently admitted and treated for urinary tract infection, will obtain a UA with reflex to culture * Continue neuro checks * Head CT showed stable moderate nonspecific cerebral white matter disease likely representing chronic small-vessel ischemic disease (5) Hospital-acquired pneumonia: Code(s): J18.9 - Pneumonia, unspecified organism; Y95 - Nosocomial condition Status: Acute Assessment and Plan: See above problem #1. (6) Thrombocytopenia: Code(s): D69.6 - Thrombocytopenia, unspecified Status: Acute Assessment and Plan: * Platelet count 138 * She has been noted to be low on her platelets since 08/27/2024 however she was as low as 85 so she has improved from a month ago. * She is currently on vitamin B12 1000 mcg monthly * We will go ahead and check a vitamin B12 and folic acid levels today (7) CHF (congestive heart failure): Code(s): I50.9 - Heart failure, unspecified Status: Acute Assessment and Plan: * Last echo reviewed from 10/23/2021 revealed normal LV systolic function with an estimated EF of 60-65%, grade 1 diastolic dysfunction * We will go ahead and obtain a new echo today * Patient did receive 2400 mL of normal saline while in the ED * Will place Zhang for accurate I&O as well as due to her altered mental status (8) Dementia: Qualifiers: Dementia behavioral disturbance: without behavioral disturbance Dementia type: unspecified type Qualified Code(s): F03.90 - Unspecified dementia without behavioral disturbance Code(s): F03.90 - Unspecified dementia, unspecified severity, without behavioral disturbance, psychotic disturbance, mood disturbance, and anxiety Status: Chronic Assessment and Plan: * Lives at [facility] * Continue Namenda and Aricept (9) Type 2 diabetes mellitus with hyperglycemia: Qualifiers: Diabetes mellitus penitentiary insulin use: with penitentiary use Qualified Code(s): E11.65 - Type 2 diabetes mellitus with hyperglycemia; Z79.4 - residential (current) use of insulin Code(s): E11.65 - Type 2 diabetes mellitus with hyperglycemia Status: Chronic Assessment and Plan: * Blood sugars ranging 138-280 * Hgb A1C 6.1 on 10/23/2021 * Will repeat hemoglobin A1c today * Accu checks AC/HS * Moderate dose SSI ordered * Will give Lantus * hypoglycemic protocol in place * Diabetic diet ordered (10) Multiple sclerosis: Code(s): G35 - Multiple sclerosis Status: Chronic Assessment and Plan: * Continue Lyrica (11) Hypertension: Qualifiers: Hypertension type: unspecified Qualified Code(s): I10 - Essential (primary) hypertension Code(s): I10 - Essential (primary) hypertension Status: Chronic Assessment and Plan: * Blood pressure ranging 120/79 to 142/58 * Continue lisinopril and amlodipine (12) Hyperlipidemia: Code(s): E78.5 - Hyperlipidemia, unspecified Status: Chronic Assessment and Plan: * Continue aspirin and atorvastatin Quality VTE Prophylaxis VTE prophylaxis: pharmacologic ordered Hospitalist MIPS Advance Care Plan I have confirmed that the patient's Advanced Care Plan is present, code status is documented, or surrogate decision maker is listed in patient medical record.: Yes Medication Reconciliation I have utilized all available resources to obtain, update and review the patients current medications (includes all prescriptions, OTC, herbals, cannabis, and nutritional supplements).: Yes
[2024-09-12 16:25] LABS: Reflex Lactic Acid Yes or No Add Lactic
[2024-09-12 16:35] LABS: Magnesium 2.2 mg/dL (1.6-2.3); Phosphorus 3.9 mg/dL (2.5-4.5)
[2024-09-12 16:46] LABS: Hemoglobin A1C 6.2 % (<5.7)
[2024-09-12 17:01] LABS: Lactic Acid 7.5 mmol/L (0.7-2.0)
[2024-09-12 17:13] LABS: Alveolar/Arterial O2 Gradient 87.5 mmHg; Base Excess ABG -9.4 mEq/l (+/-2.0); Fractional Inspired Oxygen 28 %; HCO3 ABG 16.8 mEq/l (22.0-26.0); Oxygen Content ABG 16.2 %vol (16.0-22.0); Oxygen Saturation ABG 91.1 % (95.0-100.0); Oxyhemoglobin 91.4 % THb (90.0-100.0); PCO2 ABG 37.6 mmHg (35.0-45.0); PO2 ABG 67.8 mmHg (80.0-100.0); PO2 FiO2 Ratio Arterial Blood 2.42 %; Total Hemoglobin 12.6 g/dL (12.0-18.0)
[2024-09-12 17:16] LABS: Device NASAL CANNULA; Modified Allen's Test Pass; Site Drawn RIGHT RADIAL
[2024-09-12 17:24] LABS: pH ABG 7.267 (7.350-7.450)
[2024-09-12 18:18] LABS: Folic Acid 5.4 ng/mL (2.76->20)
[2024-09-12] MEDS: SODIUM BICARBONATE 8.4% 100 MEQ in DEXTROSE 5% 1,000 ML 1,000 ML 50 MEQ IV CONT (18:51)
[2024-09-12] MEDS: INSULIN ASPART (*BKC) 100 UNITS/ML SUB-Q ×2 (18:57→22:00)
[2024-09-12 18:59] LABS: Glucose Point of Care 310 mg/dl (65-105)
[2024-09-12] MEDS: VANCOMYCIN 2,000 MG/NS 500 ML 2,000 MG/500 ML BAG 250 MG IVPB (19:56)
[2024-09-12] MEDS: IPRATROPIUM 0.5 MG/ALBUTEROL SULFATE 2.5 MG AMPUL.NEB 3 ML INHALATION (20:42)
[2024-09-12 21:10] LABS: Ammonia < 9 umol/L (9-30); Lactic Acid Reflex 3.1 mmol/L (0.7-2.0)
[2024-09-12 21:13] LABS: CRP 5.8 mg/dL (<1.0)
[2024-09-12 21:24] LABS: NT Pro B Type Natriuretic Pept 247 pg/mL (19.9-100)
[2024-09-12 21:30] LABS: Erythrocyte Sedimentation Rate 8 mm/hr (0-20)
[2024-09-12 21:36] LABS: MRSA (PCR) NOT DETECTED (NOT DETECTE)
[2024-09-12 22:04] LABS: Glucose Point of Care 295 mg/dl (65-105)
[2024-09-12 22:08] LABS: Procalcitonin 1.5 ng/mL
[2024-09-13] VITALS (24 sets, daily range): BP systolic 91–147; BP diastolic 46–67; PULSE 71–121; RESP 17–24; TEMP 36.3–38.9; O2SAT 92–100; BMI 28.8
--- NOTE | 2024-09-13 | ECHO_ITS ---
Patient Info Name: Emelina Santoyo Age: 84 years : 1940 Gender: Female Ht: 65 in Wt: 174 lbs BSA: 1.92 m2 HR: 121 bpm BP: 147 / 60 mmHg Technical Quality: Fair Exam Date: 09/13/2024 10:48 AM Exam Location: Echo Lab Patient Status: Inpatient Admit Date: 09/12/2024 Staff Ordering Physician: Emily Mcqueen APRN Cable Driller: Davey Morejon RDCS Attending Provider: Emily Mcqueen APRN Referring Physician: Richar HERNÁNDEZ; Exam Type: CA echo doppler color flow Study Info Indications R06.02 - Shortness of breath Complete two-dimensional, color flow and Doppler transthoracic echocardiogram is performed. Summary 1. Complete two-dimensional, color flow and Doppler transthoracic echocardiogram is performed. 2. Left ventricular chamber dimension is normal. 3. Left ventricular systolic function is normal, estimated at 60-65%. 4. The left ventricular diastolic function is grade I diastolic dysfunction. 5. E/e' 10 is mildly elevated. 6. No pulmonary hypertension, estimated pulmonary arterial systolic pressure is 37 mmHg. Left Ventricle E/e' 10 is mildly elevated. Left ventricular chamber dimension is normal. Left ventricular systolic function is normal, estimated at 60-65%. The left ventricular diastolic function is grade I diastolic dysfunction. Right Ventricle Right ventricular systolic function is normal and with normal TAPSE 1.8 cm. Right ventricular chamber dimension is normal. Left Atria Left atrial chamber dimension is normal. Right Atria Right atrial chamber dimension is normal. Aortic Valve The aortic valve is trileaflet. There is no aortic valve stenosis. There is no aortic valve regurgitation. Pulmonic Valve There is no pulmonic regurgitation. Mitral Valve There is no mitral valve stenosis. There is no mitral valve regurgitation. Tricuspid Valve There is no tricuspid valve regurgitation. No pulmonary hypertension, estimated pulmonary arterial systolic pressure is 37 mmHg. Pericardium/Pleural There is no pericardial effusion. Inferior Vena Cava Normal inferior vena cava with >50% collapse upon inspiration consistent with normal right atrial pressure, 5 mmHg. Aorta The aortic root size at the sinus of Valsalva is normal. Left Ventricular Outflow Tract Name Value Normal LVOT 2D LVOT Diameter 1.9 cm LVOT Doppler LVOT Peak Gradient 9 mmHg LVOT Mean Gradient 3 mmHg LVOT VTI 24 cm LVOT VTI/AV VTI Ratio 1.0 LVOT Stroke Volume 70 ml LVOT CO 6.2 l/min LVOT CI 3.2 l/min/m2 Pulmonic Valve Name Value Normal PV Doppler PV Peak Gradient 6 mmHg PV Regurgitation Doppler MD Peak End Diastolic Velocity 111 cm/s Mitral Valve Name Value Normal MV Doppler MV Decel Lajas 345 cm/s2 MV PHT 65 ms MV Area (PHT) 3.4 cm2 4.0-5.0 MV Diastolic Function MV E Peak Velocity 77 cm/s MV A Peak Velocity 122 cm/s MV E/A 0.6 MV Decel Time 223 ms Tricuspid Valve Name Value Normal TV Regurgitation Doppler TR Peak Velocity 284 cm/s TR Peak Gradient 32 mmHg Estimated PAP/RSVP RA Pressure 5 mmHg <=5 PA Systolic Pressure 37 mmHg <36 RV Systolic Pressure 37 mmHg <36 Aorta Name Value Normal Ascending Aorta Ao Root Diameter (MM) 2.3 cm Ao Root Diam Index (MM) 1.2 cm/m2 Aortic Valve Name Value Normal AV Doppler AV Peak Velocity 142 cm/s AV Peak Gradient 8 mmHg AV Mean Gradient 4 mmHg AV VTI 23 cm AV Area (Cont Eq VTI) 3.0 cm2 >=3.0 AV Area (Cont Eq Cecil) 3.0 cm2 AV Regurgitation 2D LVOT Area 2.9 cm2 Ventricles Name Value Normal LV Dimensions 2D/MM IVS Diastolic Thickness (2D) 0.7 cm 0.6-1.0 IVS Diastole Thickness (MM) 0.9 cm 0.6-0.9 LVID Diastole (2D) 4.3 cm 3.8-5.2 LVID Diastole (MM) 4.9 cm 3.8-5.2 LVIW Diastolic Thickness (2D) 0.7 cm 0.6-0.9 LVIW Diastolic Thickness (MM) 0.8 cm 0.6-0.9 LVID Systole (2D) 2.5 cm 2.2-3.5 LVID Systole (MM) 2.6 cm 2.2-3.5 LVOT Diameter 1.9 cm LV Mass (2D Cubed) 96.75 g 67.00-162.00 LV Mass Index (2D Cubed) 50 g/m2 43-95 Relative Wall Thickness (2D) 0.34 LV Mass (MM Cubed) 150.72 g 67.00-162.00 LV Mass Index (MM Cubed) 78 g/m2 43-95 Relative Wall Thickness (MM) 0.34 LV Fractional Shortening/Ejection Fraction 2D/MM LV Fractional Shortening (2D) 43 % 27-45 LV Fractional Shortening (MM) 46 % 27-45 LV EF (MM Teicholz) 77 % 54-74 LV EF (2D Teicholz) 75 % 54-74 LV Diastolic Volume (4C MOD) 40 ml LV EF (4C MOD) 71 % LV Diastolic Volume (2C MOD) 39 ml LV EF (2C MOD) 67 % LV Diastolic Volume (BP MOD) 40 ml 46-106 LV Diastolic Volume Index (BP MOD) 21 ml/m2 29-61 LV Systolic Volume (BP MOD) 13 ml 14-42 LV Systolic Volume Index (BP MOD) 7 ml/m2 8-24 LV EF (BP MOD) 68 % 54-74 LV Diastolic Length (4C) 7.8 cm LV Systolic Length (4C) 6.0 cm LV Stroke Volume (4C MOD) 29 ml Atria Name Value Normal LA Dimensions LA Dimension (MM) 3.3 cm 2.7-3.8 LA Volume (4C A-L) 21 ml LA Volume (BP A-L) 22 ml RA Dimensions RA Area (4C) 8.3 cm2 <=18.0 Report Signatures
[2024-09-13 00:40] LABS: Glucose Point of Care 238 mg/dl (65-105)
[2024-09-13] MEDS: IPRATROPIUM 0.5 MG/ALBUTEROL SULFATE 2.5 MG AMPUL.NEB 3 ML INHALATION ×4 (01:40→19:57)
[2024-09-13] MEDS: FUROSEMIDE INJ 40 MG/4 ML VIAL 20 MG IV PUSH ×2 (02:00→15:44)
[2024-09-13] MEDS: ACETAMINOPHEN 650 MG SUPPOSITORY RECTAL (04:05)
[2024-09-13 04:47] LABS: Basophils Percent Auto 1.1 % (0.2-1.2); Hematocrit 38.4 % (37.0-47.0); Hemoglobin 12.4 g/dL (12.0-15.0); Immature Granulocyte Absolute 0.01 K/mm3 (0.00-0.031); Immature Granulocyte Percent A 0.5 % (0-0.5); Immature Platelet Fraction Pct 3.7 % (0.9-11.2); Lymphocytes Absolute Auto 0.22 K/mm3 (0.9-3.2); Lymphocytes Percent Auto 11.8 % (18.3-44.2); Mean Corpuscular HGB Conc 32.3 g/dl (32-36); Mean Corpuscular Hemoglobin 29.8 pg (26-34); Mean Corpuscular Volume 92.3 fl (80-100); Mean Platelet Volume 10.6 fl (7.4-10.4); Monocytes Absolute Auto 0.2 K/mm3 (0.1-0.6); Monocytes Percent Auto 11.3 % (2.6-8.5); Neutrophils Absolute Auto 1.4 K/mm3 (1.3-6.7); Neutrophils Percent Auto 75.3 % (45.5-73.1); Platelet Count Result 114 k/mm3 (150-375); Red Blood Count 4.16 M/mm3 (4.2-5.4)
[2024-09-13 05:01] LABS: Alanine Aminotransferase 24 U/L (6-35); Albumin Level 3.8 g/dL (3.5-5.1); Alkaline Phosphatase 162 U/L (38-126); Anion Gap 8 mmol/L (4-12); Aspartate Amino Transferase 24 U/L (14-36); Bilirubin,Total 0.8 mg/dL (0.2-1.3); Blood Urea Nitrogen 21 mg/dL (7-17); Calcium 9.4 mg/dL (8.4-10.2); Carbon Dioxide 23 mmol/L (22-30); Chloride 110 mmol/L (98-107); Estimated CRCL calculation 35 ml/min; Estimated Glomerular Filt Rate 48; Glucose 227 mg/dL (65-110); Potassium 4.4 mmol/L (3.4-5.0); Sodium 141 mmol/L (137-145)
[2024-09-13 05:09] LABS: Fractional Inspired Oxygen 28 %; HCO3 VBG 25.5 mEq/l (24.0-30.0); PCO2 VBG 40.2 mmHg (42.0-48.0); PO2 VBG 45.4 mmHg (35.0-45.0)
[2024-09-13 05:20] LABS: White Blood Count 1.9 K/mm3 (4.5-10.0)
[2024-09-13 05:51] LABS: Device NASAL CANNULA
[2024-09-13 08:34] LABS: Glucose Point of Care 204 mg/dl (65-105)
[2024-09-13] MEDS: INSULIN ASPART (*BKC) 100 UNITS/ML SUB-Q (09:07)
[2024-09-13] MEDS: SODIUM CHLORIDE 0.9% IV 1,000 ML 75 ML IV CONT (09:08)
[2024-09-13] MEDS: ENOXAPARIN 40 MG/0.4 ML SYRINGE SUB-Q (09:08)
[2024-09-13 09:20] LABS: Add Urine Microscopic? YES; Appearance Urine Clear (Clear); Bacteria Urine None Seen /hpf; Bilirubin Urine Negative (Negative); Blood Urine 2+ (Negative); Color Urine Yellow (Yellow); Glucose Urine UA Negative (Negative); Ketones Urine Negative (Negative); Leukocyte Esterase Ur Trace LEU/UL (Negative); Need Manual Microscopic Reviewed; Nitrate Urine Negative (Negative); Protein Urine 1+ mg/dL (Negative); RBC Urine 21-50 /hpf (0-2); Specific Grav Ur 1.027 (1.001-1.035); Squamous Epithelial Cell Urine Occasional /hpf (Few); Urobilinogen Urine 0.2 mg/dL (<2.0); pH Urine 6.5 (5.0-9.0)
--- NOTE | 2024-09-13 09:24 | P.PNIM_ITS ---
Progress Note: A&P Assessment and Plan (1) Acute respiratory failure with hypoxia: Code(s): J96.01 - Acute respiratory failure with hypoxia Status: Acute Assessment and Plan: * Patient found at halfway with oxygen saturation of 86% on room air with gurgling breath sounds. EMS gave patient a DuoNeb in route to the hospital. * Likely secondary to hospital acquired pneumonia * Currently on 2 L nasal cannula, normally room air at baseline * Continue to wean O2 for sat greater than 92% * Continue DuoNebs * Chest x-ray showing cardiomegaly with cardiac decompensation and pulmonary edema, left basilar atelectasis versus pneumonia * Continue Rocephin was changed to cefepime 2 g, azithromycin * MRSA was negative vancomycin was deescalated * ABG showing pH of 7.267, pCO2 37.6, PO2 67.8, bicarb 16.8 with a base excess of -9.4---metabolic acidosis, will start bicarb infusion 09/13 * Echo results pending * CTA of the chest showed 5 mm pulmonary nodule which is probably benign, 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 * Lactic acid increasing from 4.6>7.9 * Patient has allergy to Flagyl 09/13 * She was started on vancomycin however MRSA was negative and so we deescalated the vancomycin * Lactic acid down to 3.1 today * Will check another lactic acid this afternoon * VBG showed pH of 7.420, pCO2 40.2, PO2 45.4, bicarb 25.5 * Bicarb drip discontinued * Will start normal saline at 75 mil per hour * Continue cefepime and azithromycin (3) Lactic acidosis: Code(s): E87.20 - Acidosis, unspecified Status: Acute Assessment and Plan: * Lactic acid 4.6 and now is 7.5-- secondary to metabolic acidosis * Started on bicarb infusion * CTA of the chest/abdomen/pelvis showed 5 mm pulmonary nodule from doubly benign, moderate 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 09/13 * Lactic acid 3.1 today * Will recheck another lactic acid this afternoon (4) Altered mental status: Qualifiers: Altered mental status type: stupor Qualified Code(s): R40.1 - Stupor Code(s): R41.82 - Altered mental status, unspecified Status: Acute Assessment and Plan: * Normally alert oriented x2 at baseline. She does have dementia and lives at [facility]. * Recently admitted and treated for urinary tract infection, will obtain a UA with reflex to culture * Continue neuro checks * Head CT showed stable moderate nonspecific cerebral white matter disease likely representing chronic small-vessel ischemic disease (5) Hospital-acquired pneumonia: Code(s): J18.9 - Pneumonia, unspecified organism; Y95 - Nosocomial condition Status: Acute Assessment and Plan: See above problem #1. (6) Thrombocytopenia: Code(s): D69.6 - Thrombocytopenia, unspecified Status: Acute Assessment and Plan: * Platelet count 138 * She has been noted to be low on her platelets since 08/27/2024 however she was as low as 85 so she has improved from a month ago. * She is currently on vitamin B12 1000 mcg monthly * We will go ahead and check a vitamin B12 and folic acid levels today 09/13 * Hematology/oncology consulted as patient is now pancytopenic with a white blood cell count of 1.9, RBC 4.16, platelet count 114 * Vitamin B12 746, folate 5.4 (7) CHF (congestive heart failure): Code(s): I50.9 - Heart failure, unspecified Status: Acute Assessment and Plan: * Last echo reviewed from 10/23/2021 revealed normal LV systolic function with an estimated EF of 60-65%, grade 1 diastolic dysfunction * We will go ahead and obtain a new echo today * Patient did receive 2400 mL of normal saline while in the ED * Will place Zhang for accurate I&O as well as due to her altered mental status * ProBNP 247 09/13 * Echo pending * Will give 20 of IVP Lasix now (8) Dementia: Qualifiers: Dementia behavioral disturbance: without behavioral disturbance Dementia type: unspecified type Qualified Code(s): F03.90 - Unspecified dementia without behavioral disturbance Code(s): F03.90 - Unspecified dementia, unspecified severity, without behavioral disturbance, psychotic disturbance, mood disturbance, and anxiety Status: Chronic Assessment and Plan: * Lives at [facility] * Continue Namenda and Aricept when able to take p.o. 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o. (11) Hypertension: Qualifiers: Hypertension type: unspecified Qualified Code(s): I10 - Essential (primary) hypertension Code(s): I10 - Essential (primary) hypertension Status: Chronic Assessment and Plan: * Blood pressure ranging 120/79 to 142/58 * Continue lisinopril and amlodipine when able to take p.o. * Will continue to monitor blood pressures and if she becomes elevated above 160 we will start hydralazine IV push (12) Hyperlipidemia: Code(s): E78.5 - Hyperlipidemia, unspecified Status: Chronic Assessment and Plan: * Continue aspirin and atorvastatin when able to take p.o. Time Spent With Patient Time with patient: Greater than 35 minutes Subjective Date/time seen: 09/13/24 09:24 Interval history: Interval history: This is an 84 year old patient with diabetic neuropathy, type 2 diabetes mellitus, multiple sclerosis, dementia, CHF, hypertension, hyperlipidemia who presented from [facility] to the hospital with shortness of breath/dyspnea. Staff at [facility] found patient making gurgling sounds and was not acting right per their report. EMS was called and gave patient a DuoNeb as they found her with an SpO2 of 86% on room air. Patient had a low-grade temp this morning and [facility] gave her a dose of Tylenol. They noted her to have a cough as well. On arrival to the ED patient was saturating 97% on room air and her vital signs were stable. Patient was recently hospitalized on 08/27/2024 through 08/31/2024 and was treated for urinary tract infection and completed a course of Keflex. Workup in the hospital included a chest x-ray which shown cardiomegaly with cardiac decompensation and pulmonary edema, left basilar atelectasis versus pneumonia. Initial labs showed a normal white blood cell count of 5.4, platelet count 138, creatinine 1.20, EGFR 43, lactic acid 4.6, alkaline phosphate 243, proBNP 170. Respiratory panel was negative for influenza a and B, RSV, COVID. Blood cultures were ordered and obtained. EKG showed sinus rhythm with a rate of 76, QTC 459. Patient was given 2400 mL of normal saline, Rocephin, and azithromycin while in the ED. 09/13/24: Antibiotics changed to cefepime 2 g and azithromycin, vancomycin was deescalated considering MRSA was negative. Rocephin was discontinued. Subjective: Patient is awake today and able to tell me her name. She is still very confused. Labs and imaging reviewed. Review of Systems Review of Systems: ROS unobtainable: Yes unobtainable due to mental status Exam Narrative: General: In no acute distress, well nourished Head: acute encephalopathy Cardiac: Normal S1 and S2. RRR, No murmur, gallops or friction rubs, peripheral pulses intact. Respiratory: Lungs course bilaterally, raspy cough, mild wheezing currently on 2L NC Gastrointestinal: soft, non-distended, non-tender, normoactive bowel sounds. : Zhang catheter in place draining clear yellow urine Extremities: Foot drop noted bilaterally Neuro: Alert to voice, oriented x1, more interactive today Psych: unable to assess fully due to mental status Objective Data Vital Signs Vital Signs: Vital Signs - 24 hr 09/12/24 12:26 09/12/24 12:32 09/12/24 12:33 Temperature 97.8 F Pulse Rate 88 97 Respiratory Rate 20 Blood Pressure 122/98 H Pulse Oximetry 97 94 Oxygen Delivery Room Air Room Air Oxygen Flow Rate 09/12/24 12:33 09/12/24 12:35 09/12/24 12:47 Temperature 97.8 F Pulse Rate 100 Respiratory Rate 22 H Blood Pressure 122/98 H Pulse Oximetry 93 94 94 Oxygen Delivery Room Air Nasal Cannula Oxygen Flow Rate 4 09/12/24 13:37 09/12/24 14:03 09/12/24 14:45 Temperature 98 F Pulse Rate 98 Respiratory Rate 25 H Blood Pressure 142/58 H Pulse Oximetry 98 97 93 Oxygen Delivery Nasal Cannula Nasal Cannula Oxygen Flow Rate 3 2 09/12/24 15:23 09/12/24 16:13 09/12/24 16:24 Temperature 98.3 F 98.3 F Pulse Rate 96 101 H 101 H Respiratory Rate 25 H 24 H 24 H Blood Pressure 120/79 124/50 L 124/50 L Pulse Oximetry 96 100 100 Oxygen Delivery Oxygen Flow Rate 09/12/24 20:00 09/12/24 20:00 09/12/24 20:02 Temperature 98.9 F Pulse Rate 94 100 Respiratory Rate 24 H Blood Pressure 125/52 L Pulse Oximetry 97 94 Oxygen Delivery Nasal Cannula Oxygen Flow Rate 2 09/12/24 20:48 09/12/24 20:49 09/12/24 20:58 Temperature Pulse Rate 97 100 Respiratory Rate 18 18 Blood Pressure Pulse Oximetry 97 Oxygen Delivery Oxygen Flow Rate 2 09/12/24 22:00 09/12/24 23:55 09/13/24 00:00 Temperature 97.8 F Pulse Rate 103 H 106 H Respiratory Rate 24 H Blood Pressure 128/53 L Pulse Oximetry 95 95 Oxygen Delivery Nasal Cannula Oxygen Flow Rate 2 09/13/24 00:00 09/13/24 01:44 09/13/24 01:55 Temperature Pulse Rate 111 H 108 H 111 H Respiratory Rate 18 18 Blood Pressure Pulse Oximetry Oxygen Delivery Oxygen Flow Rate 09/13/24 02:00 09/13/24 04:00 09/13/24 04:00 Temperature 102.1 F H Pulse Rate 116 H 121 H Respiratory Rate 24 H Blood Pressure 147/60 H Pulse Oximetry 95 100 Oxygen Delivery Nasal Cannula Oxygen Flow Rate 2 09/13/24 04:00 09/13/24 04:05 09/13/24 04:20 Temperature 102.1 F H 102.1 F H Pulse Rate 92 121 H Respiratory Rate Blood Pressure Pulse Oximetry Oxygen Delivery Oxygen Flow Rate 09/13/24 05:05 09/13/24 06:00 09/13/24 08:00 Temperature 99.2 F 97.9 F Pulse Rate 100 102 H Respiratory Rate 17 Blood Pressure 91/46 L Pulse Oximetry 98 Oxygen Delivery Oxygen Flow Rate 09/13/24 08:10 09/13/24 08:11 09/13/24 08:18 Temperature Pulse Rate 96 108 H Respiratory Rate 18 18 Blood Pressure Pulse Oximetry 97 Oxygen Delivery Nasal Cannula Oxygen Flow Rate 2 Intake/Output Intake/Output: Intake & Output 09/10/24 09/11/24 09/12/24 09/13/24 23:59 23:59 23:59 23:59 Intake Total 1300 Output Total 1000 Balance 1300 -1000 Meds/Results Medications: Active Medications Generic Name Dose Route Start Last Admin Trade Name Freq PRN Reason Stop Dose Admin Acetaminophen 650 mg 09/12/24 14:49 Acetaminophen 325 Mg Tablet PO Q4H PRN Mild Pain (1-3) or Fever Acetaminophen 650 mg 09/13/24 03:48 09/13/24 04:05 Acetaminophen 650 Mg Suppository RECTAL 650 mg Q6H PRN Administration Mild Pain (1-3) or Fever Albuterol/Ipratropium 3 ml 09/12/24 20:00 09/13/24 08:10 Ipratropium 0.5 Mg/Albuterol Sulfate 2.5 Mg Ampul.Neb 3 Ml INHALATION 3 ml Q6HRT ELVIRA Administration Amlodipine Besylate 5 mg 09/13/24 09:00 09/13/24 08:19 Amlodipine Besylate 5 Mg Tablet PO Not Given DAILY ELVIRA Aspirin 81 mg 09/13/24 08:00 09/13/24 08:19 Aspirin 81 Mg Chewable Tablet PO Not Given DAILY@0800 [facility] Atorvastatin Calcium 40 mg 09/13/24 09:00 09/13/24 08:19 Atorvastatin 40 Mg Tablet PO Not Given DAILY [facility] Dextrose 12.5 gm 09/12/24 16:06 Dextrose 50% 25 Gm/50 Ml Syringe IV PUSH PRN PRN Hypoglycemia Protocol Donepezil HCl 10 mg 09/13/24 09:00 09/13/24 08:19 Donepezil Hcl 10 Mg Tablet PO Not Given DAILY [facility] Enoxaparin Sodium 40 mg 09/13/24 09:00 09/13/24 09:08 Enoxaparin 40 Mg/0.4 Ml Syringe SUB-Q 40 mg DAILY ELVIRA Administration Glucagon 1 mg 09/12/24 16:06 Glucagon For Inj 1 Mg Vial IM PRN PRN Hypoglycemia Protocol Glucose 15 gm 09/12/24 16:06 Glucose Oral Gel 15 Gm Of Glucse In 37.5 Gm Tube PO PRN PRN Hypoglycemia Protocol Ceftriaxone Sodium 1 gm in 50 mls @ 100 mls/hr 09/13/24 14:00 Rocephin 1 Gm/Ns 50 Ml IVPB Q24H ELVIRA Azithromycin 500 mg in 250 mls @ 250 mls/hr 09/13/24 15:00 Zithromax IVPB Q24H ELVIRA Dextrose 1,000 mls @ 100 mls/hr 09/12/24 16:06 Dextrose 5% 1,000 Ml IVPB PRN PRN Hypoglycemia Protocol Vancomycin HCl 1,500 mg in 500 mls @ 250 mls/hr 09/14/24 08:00 Vancomycin 1,500 Mg/Ns 500 Ml IVPB Q36H ELVIRA Sodium Chloride 1,000 mls @ 75 mls/hr 09/13/24 08:55 09/13/24 09:08 Normal Saline Iv IV CONT 75 mls/hr .[id number] ELVIRA Administration Insulin Aspart 3 - 6 units 09/13/24 12:00 Insulin Aspart (*Bkc) 100 Units/Ml SUB-Q Q6HR [facility] Protocol Lisinopril 10 mg 09/13/24 09:00 09/13/24 08:20 Lisinopril 10 Mg Tablet PO Not Given DAILY [facility] Magnesium Oxide 400 mg 09/13/24 09:00 09/13/24 08:20 Magnesium Oxide 400 Mg Tablet PO Not Given DAILY [facility] Memantine 10 mg 09/12/24 21:00 09/13/24 08:20 Memantine 10 Mg Tablet PO Not Given Q12HR [facility] Ondansetron HCl 4 mg 09/12/24 16:05 Ondansetron Inj 4 Mg/2 Ml Vial IV PUSH Q6H PRN Nausea And Vomiting Perflutren Lipid Microsphere 0 ml 09/12/24 16:03 Perflutren Lipid Microspheres 1.5 Ml Vial Diluted To 10 Ml Total Volume IV PUSH 09/15/24 16:03 ONCE PRN adequate visualization Protocol Promethazine HCl 12.5 mg 09/12/24 14:49 Promethazine Hcl 25 Mg/Ml Ampul IV PUSH Q6H PRN Nausea Vitamin D 5,000 units 09/13/24 09:00 09/13/24 08:19 Cholecalciferol 1,000 Units Tablet PO Not Given DAILY ELVIRA Radiology Results: ITS Impressions Head CT 09/12/24 18:11 IMPRESSION: 1. Stable moderate nonspecific cerebral white matter disease, which likely represents chronic small vessel ischemic disease. Chest/Abdomen/Pelvis CTA 09/12/24 18:16 IMPRESSION: 1. 5 mm pulmonary nodule, probably benign. Consider noncontrast low-dose chest CT in 6-12 months. 2. Moderate stenosis of right common iliac artery. Chest X-Ray 09/13/24 09:07 IMPRESSION: Bilateral pneumonia. Underlying pulmonary edema is not excluded Labs Labs: Laboratory Results - last 24 hr 09/12/24 09/12/24 09/12/24 12:49 13:16 16:05 WBC 5.4 RBC 4.56 Hgb 13.7 Hct 42.5 MCV 93.2 MCH 30.0 MCHC 32.2 RDW 14.8 H Plt Count 138 L MPV 10.7 H Immature Gran % (Auto) 0.0 Neut % (Auto) 77.1 H Lymph % (Auto) 15.6 L [place] % (Auto) 6.7 Eos % (Auto) 0.2 Baso % (Auto) 0.4 Lymph # (Auto) 0.84 L [place] # (Auto) 0.4 Eos # (Auto) 0.0 Baso # (Auto) 0.0 Abs Immat Gran (auto) 0.00 Absolute Neuts (auto) 4.1 Absolute Nucleated RBC 0.000 Nucleated RBC % 0.0 % Immature Plt Fraction 4.7 ESR Puncture Site ABG pH ABG pCO2 ABG pO2 ABG PO2/FiO2 Ratio ABG HCO3 ABG O2 Saturation ABG O2 Content ABG Base Excess VBG pH VBG pCO2 VBG pO2 VBG HCO3 A-a Gradient Oxyhemoglobin Total Hemoglobin O2 Delivery Device O2 Liters/Min FiO2 Sodium 140 Potassium 4.4 Chloride 110 H Carbon Dioxide 23 Anion Gap 7 BUN 25 H Creatinine 1.20 H Estim Creat Clear Calc 34 Estimated GFR 43 L Glucose 280 H POC Capillary Glucose Hemoglobin A1c 6.2 H Lactic Acid 4.6 H* Calcium 9.9 Phosphorus 3.9 Magnesium 2.2 Total Bilirubin 0.9 AST 30 ALT 30 Alkaline Phosphatase 243 H Ammonia C-Reactive Protein NT-Pro-B Natriuret Pep 170 H Total Protein 7.0 Albumin 3.9 Vitamin B12 Folate Procalcitonin TSH 2.750 Nasal MRSA (PCR) Influenza A (RT-PCR) Negative Influenza B (RT-PCR) Negative RSV (RT-PCR) Negative SARS-CoV-2 RNA (RT-PCR) Negative 09/12/24 09/12/24 09/12/24 16:24 16:43 17:08 WBC RBC Hgb Hct MCV MCH MCHC RDW Plt Count MPV Immature Gran % (Auto) Neut % (Auto) Lymph % (Auto) [place] % (Auto) Eos % (Auto) Baso % (Auto) Lymph # (Auto) [place] # (Auto) Eos # (Auto) Baso # (Auto) Abs Immat Gran (auto) Absolute Neuts (auto) Absolute Nucleated RBC Nucleated RBC % % Immature Plt Fraction ESR Puncture Site Right radial ABG pH 7.267 L* ABG pCO2 37.6 ABG pO2 67.8 L ABG PO2/FiO2 Ratio 2.42 ABG HCO3 16.8 L ABG O2 Saturation 91.1 L ABG O2 Content 16.2 ABG Base Excess -9.4 VBG pH VBG pCO2 VBG pO2 VBG HCO3 A-a Gradient 87.5 Oxyhemoglobin 91.4 Total Hemoglobin 12.6 O2 Delivery Device Nasal cannula O2 Liters/Min 2.0 FiO2 28 Sodium Potassium Chloride Carbon Dioxide Anion Gap BUN Creatinine Estim Creat Clear Calc Estimated GFR Glucose POC Capillary Glucose Hemoglobin A1c Lactic Acid 7.5 H* Calcium Phosphorus Magnesium Total Bilirubin AST ALT Alkaline Phosphatase Ammonia C-Reactive Protein NT-Pro-B Natriuret Pep Total Protein Albumin Vitamin B12 746.0 Folate 5.4 Procalcitonin TSH Nasal MRSA (PCR) Influenza A (RT-PCR) Influenza B (RT-PCR) RSV (RT-PCR) SARS-CoV-2 RNA (RT-PCR) 09/12/24 09/12/24 09/12/24 18:56 20:15 20:32 WBC RBC Hgb Hct MCV MCH MCHC RDW Plt Count MPV Immature Gran % (Auto) Neut % (Auto) Lymph % (Auto) [place] % (Auto) Eos % (Auto) Baso % (Auto) Lymph # (Auto) [place] # (Auto) Eos # (Auto) Baso # (Auto) Abs Immat Gran (auto) Absolute Neuts (auto) Absolute Nucleated RBC Nucleated RBC % % Immature Plt Fraction ESR 8 Puncture Site ABG pH ABG pCO2 ABG pO2 ABG PO2/FiO2 Ratio ABG HCO3 ABG O2 Saturation ABG O2 Content ABG Base Excess VBG pH VBG pCO2 VBG pO2 VBG HCO3 A-a Gradient Oxyhemoglobin Total Hemoglobin O2 Delivery Device O2 Liters/Min FiO2 Sodium Potassium Chloride Carbon Dioxide Anion Gap BUN Creatinine Estim Creat Clear Calc Estimated GFR Glucose POC Capillary Glucose 310 H Hemoglobin A1c Lactic Acid 3.1 H Calcium Phosphorus Magnesium Total Bilirubin AST ALT Alkaline Phosphatase Ammonia < 9 L C-Reactive Protein 5.8 H NT-Pro-B Natriuret Pep 247 H Total Protein Albumin Vitamin B12 Folate Procalcitonin 1.5 TSH Nasal MRSA (PCR) Not detected Influenza A (RT-PCR) Influenza B (RT-PCR) RSV (RT-PCR) SARS-CoV-2 RNA (RT-PCR) 09/12/24 09/13/24 09/13/24 22:02 00:38 04:24 WBC 1.9 L* RBC 4.16 L Hgb 12.4 Hct 38.4 MCV 92.3 MCH 29.8 MCHC 32.3 RDW 15.0 H Plt Count 114 L MPV 10.6 H Immature Gran % (Auto) 0.5 Neut % (Auto) 75.3 H Lymph % (Auto) 11.8 L [place] % (Auto) 11.3 H Eos % (Auto) 0.0 Baso % (Auto) 1.1 Lymph # (Auto) 0.22 L [place] # (Auto) 0.2 Eos # (Auto) 0.0 Baso # (Auto) 0.0 Abs Immat Gran (auto) 0.01 Absolute Neuts (auto) 1.4 Absolute Nucleated RBC 0.000 Nucleated RBC % 0.0 % Immature Plt Fraction 3.7 ESR Puncture Site ABG pH ABG pCO2 ABG pO2 ABG PO2/FiO2 Ratio ABG HCO3 ABG O2 Saturation ABG O2 Content ABG Base Excess VBG pH VBG pCO2 VBG pO2 VBG HCO3 A-a Gradient Oxyhemoglobin Total Hemoglobin O2 Delivery Device O2 Liters/Min FiO2 Sodium 141 Potassium 4.4 Chloride 110 H Carbon Dioxide 23 Anion Gap 8 BUN 21 H Creatinine 1.10 H Estim Creat Clear Calc 35 Estimated GFR 48 L Glucose 227 H POC Capillary Glucose 295 H 238 H Hemoglobin A1c Lactic Acid Calcium 9.4 Phosphorus Magnesium Total Bilirubin 0.8 AST 24 ALT 24 Alkaline Phosphatase 162 H Ammonia C-Reactive Protein NT-Pro-B Natriuret Pep Total Protein 7.0 Albumin 3.8 Vitamin B12 Folate Procalcitonin TSH Nasal MRSA (PCR) Influenza A (RT-PCR) Influenza B (RT-PCR) RSV (RT-PCR) SARS-CoV-2 RNA (RT-PCR) 09/13/24 09/13/24 04:59 08:26 WBC RBC Hgb Hct MCV MCH MCHC RDW Plt Count MPV Immature Gran % (Auto) Neut % (Auto) Lymph % (Auto) [place] % (Auto) Eos % (Auto) Baso % (Auto) Lymph # (Auto) [place] # (Auto) Eos # (Auto) Baso # (Auto) Abs Immat Gran (auto) Absolute Neuts (auto) Absolute Nucleated RBC Nucleated RBC % % Immature Plt Fraction ESR Puncture Site ABG pH ABG pCO2 ABG pO2 ABG PO2/FiO2 Ratio ABG HCO3 ABG O2 Saturation ABG O2 Content ABG Base Excess VBG pH 7.420 H* VBG pCO2 40.2 L VBG pO2 45.4 H VBG HCO3 25.5 A-a Gradient Oxyhemoglobin Total Hemoglobin O2 Delivery Device Nasal cannula O2 Liters/Min 2.0 FiO2 28 Sodium Potassium Chloride Carbon Dioxide Anion Gap BUN Creatinine Estim Creat Clear Calc Estimated GFR Glucose POC Capillary Glucose 204 H Hemoglobin A1c Lactic Acid Calcium Phosphorus Magnesium Total Bilirubin AST ALT Alkaline Phosphatase Ammonia C-Reactive Protein NT-Pro-B Natriuret Pep Total Protein Albumin Vitamin B12 Folate Procalcitonin TSH Nasal MRSA (PCR) Influenza A (RT-PCR) Influenza B (RT-PCR) RSV (RT-PCR) SARS-CoV-2 RNA (RT-PCR) Quality VTE Prophylaxis VTE prophylaxis: pharmacologic ordered
[2024-09-13] MEDS: CEFEPIME 2 GM/NS 50 ML 2 GM/50 ML BAG IVPB ×2 (12:54→20:53)
[2024-09-13 14:43] LABS: Lactic Acid Reflex 1.6 mmol/L (0.7-2.0)
[2024-09-13 15:20] LABS: Glucose Point of Care 114 mg/dl (65-105)
[2024-09-13] MEDS: AZITHROMYCIN 500 MG/NS 250 ML 500 MG/250 ML BAG 250 MG IVPB (15:44)
[2024-09-13 17:42] LABS: Toxigenic C. Diff NEGATIVE (NEGATIVE)
[2024-09-13 18:31] LABS: Glucose Point of Care 149 mg/dl (65-105)
--- NOTE | 2024-09-13 18:43 | WPDONCCN ---
Assessment and Plan Assessment and plan (1) Leukopenia: Code(s): D72.819 - Decreased white blood cell count, unspecified Status: Acute Assessment and Plan: Leukopenia and thrombocytopenia. Patient is the 84-year-old female with a [facility] resident with multiple comorbidities came into the hospital with shortness of breath along with tiredness and fatigue. Chest x-ray and CT scan finding showed pulmonary edema versus pneumonia. She received antibiotic with vancomycin, cefepime and azithromycin. White blood cell which was normal on discharge dropped to 1.9. And platelet count also dropped. This is likely secondary to antibiotic related and infection related. Hemoglobin remains normal. Vitamin B12 normal. I will check iron studies platelet antibodies and WARREN today. I expect the white blood cell recovery upon recovery from pneumonia. Currently ANC is 1400 and no need for growth factor support. If patient ANC drops below 1000 then we will consider Neupogen 300 mcg subQ daily. HPI Data of Consult Date/Time: 09/13/24 18:43 Requesting Physician: Emily Mcqueen APRN Primary Care Provider: Hong Stoddard MD Consult Narrative Narrative: Emelina Santoyo is a 84 year old female with history of type 2 diabetes, multiple sclerosis, dementia, CHF and hypertension referred to me for leukopenia and thrombocytopenia. She was brought into the hospital form [facility] with shortness of breath. Chest x-ray showed pulmonary edema and possibility of pneumonia. Initial white blood cell count was normal at 5.4 and platelet count was [id number]. CTA chest showed 5 mm pulmonary nodule likely benign. She was started on vancomycin. She then also receive cefepime and azithromycin. She denies any bleeding and bruising. Labs showed decline in WBC count now down to 1.9 with decline in platelet count of [id number]. She has no other new complaints. Review of Systems Review of Systems: As per HPI otherwise negative PMFSH Past Medical History Medical History (Updated 09/13/24 @ 18:47 by Christ Rodríguez MD) Leukopenia Hyperlipidemia Hypertension CHF (congestive heart failure) Neuropathy, diabetic Pneumonia due to COVID-19 virus Type 2 diabetes mellitus with hyperglycemia Multiple sclerosis Dementia Surgical History Surgical History Surgical history unknown Family History Family History Other Unknown family medical history Social History Social History Social History: Ms. Santoyo resides in a shelter for many years. She is a full code and her son Osmar is her surrogate decision maker. Information obtained from patient's son, Osmar. Smoking status: Unknown if ever smoked Alcohol intake: unknown Substance use: unknown Spiritual care concerns: No Meds Home Medications and Allergies Home Medications ?Medication ?Instructions ?Recorded ?Confirmed ?Type Aspir-81 81 mg PO DAILY 10/18/21 09/12/24 History amlodipine 10 mg tablet 5 mg PO DAILY 10/18/21 09/12/24 History atorvastatin 40 mg tablet 40 mg PO DAILY 10/18/21 09/12/24 History donepezil 10 mg tablet 10 mg PO DAILY 10/18/21 09/12/24 History lisinopril 10 mg tablet 10 mg PO DAILY 10/18/21 09/12/24 History memantine 10 mg tablet (Namenda) 10 mg PO BID 10/18/21 09/12/24 History metoprolol tartrate 25 mg tablet 25 mg PO BID 10/18/21 09/12/24 History cholecalciferol (vitamin D3) 125 125 mcg PO DAILY 10/23/21 09/12/24 History mcg (5,000 unit) tablet cranberry fruit 450 mg tablet 450 mg PO DAILY 10/23/21 09/12/24 History (cranberry) cyanocobalamin (vitamin B-12) See Rx Instructions .Route .COMPLEX 10/23/21 09/12/24 History 1,000 mcg/mL injection syringe insulin syringe-needle U-100 0.5 10/23/21 09/12/24 History mL 29 gauge x 1/2 (Monoject Insulin Safety Syringe) pregabalin 150 mg capsule (Lyrica) 150 mg PO BID #60 caps 04/25/24 09/12/24 Rx Saccharomyces boulardii 250 mg 250 mg PO BID 08/27/24 09/12/24 History capsule cetirizine 10 mg tablet 10 mg PO DAILY 08/27/24 09/12/24 History dextran 70-hypromellose (PF) 0.1 2 drp EACH EYE TID 08/27/24 09/12/24 History %-0.3 % eye drops in a dropperette (GenTeal Tears Moderate (PF)) insulin aspart (niacinamide) 1 sliding scale dose subcut BID 08/27/24 09/12/24 History (U-100) 100 unit/mL subcutaneous solution (Fiasp U-100 Insulin) magnesium hydroxide 400 mg/5 mL 30 ml PO DAILY PRN Constipation 08/27/24 09/12/24 History oral suspension (Milk of Magnesia) magnesium oxide 400 mg PO DAILY 08/27/24 09/12/24 History insulin glargine 100 unit/mL (3 20 unit (0.2 mL) subcut HS 30 days 08/31/24 09/12/24 Rx mL) subcutaneous pen (Basaglar #10 mL KwikPen U-100 Insulin) Allergies Allergy/AdvReac Type Severity Reaction Status Date / Time metronidazole Allergy Unknown Verified 09/08/24 11:21 Vital Signs Vital Signs - 24 hr 09/12/24 20:00 09/12/24 20:00 09/12/24 20:02 Temperature 37.2 C Pulse Rate 94 100 Respiratory Rate 24 H Blood Pressure 125/52 L Pulse Oximetry 97 94 Oxygen Delivery Nasal Cannula Oxygen Flow Rate 2 09/12/24 20:48 09/12/24 20:49 09/12/24 20:58 Temperature Pulse Rate 97 100 Respiratory Rate 18 18 Blood Pressure Pulse Oximetry 97 Oxygen Delivery Oxygen Flow Rate 2 09/12/24 22:00 09/12/24 23:55 09/13/24 00:00 Temperature 36.6 C Pulse Rate 103 H 106 H Respiratory Rate 24 H Blood Pressure 128/53 L Pulse Oximetry 95 95 Oxygen Delivery Nasal Cannula Oxygen Flow Rate 2 09/13/24 00:00 09/13/24 01:44 09/13/24 01:55 Temperature Pulse Rate 111 H 108 H 111 H Respiratory Rate 18 18 Blood Pressure Pulse Oximetry Oxygen Delivery Oxygen Flow Rate 09/13/24 02:00 09/13/24 04:00 09/13/24 04:00 Temperature 38.9 C H Pulse Rate 116 H 121 H Respiratory Rate 24 H Blood Pressure 147/60 H Pulse Oximetry 95 100 Oxygen Delivery Nasal Cannula Oxygen Flow Rate 2 09/13/24 04:00 09/13/24 04:05 09/13/24 04:20 Temperature 38.9 C H 38.9 C H Pulse Rate 92 121 H Respiratory Rate Blood Pressure Pulse Oximetry Oxygen Delivery Oxygen Flow Rate 09/13/24 05:05 09/13/24 06:00 09/13/24 08:00 Temperature 37.3 C 36.6 C Pulse Rate 100 102 H Respiratory Rate 17 Blood Pressure 91/46 L Pulse Oximetry 98 Oxygen Delivery Oxygen Flow Rate 09/13/24 08:00 09/13/24 08:10 09/13/24 08:11 Temperature Pulse Rate 102 H 96 Respiratory Rate 18 Blood Pressure Pulse Oximetry 97 Oxygen Delivery Nasal Cannula Oxygen Flow Rate 2 09/13/24 08:18 09/13/24 10:00 09/13/24 12:00 Temperature 36.3 C L Pulse Rate 108 H 98 71 Respiratory Rate 18 17 Blood Pressure 124/52 L Pulse Oximetry 100 Oxygen Delivery Oxygen Flow Rate 09/13/24 12:00 09/13/24 14:00 09/13/24 14:03 Temperature Pulse Rate 96 97 98 Respiratory Rate 18 Blood Pressure Pulse Oximetry Oxygen Delivery Oxygen Flow Rate 09/13/24 14:12 09/13/24 16:00 09/13/24 16:00 Temperature 36.4 C Pulse Rate 99 103 H 110 H Respiratory Rate 18 17 Blood Pressure 133/47 L Pulse Oximetry 100 Oxygen Delivery Oxygen Flow Rate 09/13/24 18:00 Temperature Pulse Rate 103 H Respiratory Rate Blood Pressure Pulse Oximetry Oxygen Delivery Oxygen Flow Rate Exam Resp: Other: Lungs are clear to auscultation bilaterally Cardio: Other: Cardiovascular regular rate rhythm no murmurs GI: Other: Non tender nondistended bowel sounds are positive Extrem: Other: No edema Results Labs 09/13/24 04:24 09/13/24 04:24 Labs: Short CBC 09/13/24 Range/Units 04:24 WBC 1.9 L* (4.5-10.0) K/mm3 Hgb 12.4 (12.0-15.0) g/dL Hct 38.4 (37.0-47.0) % Plt Count 114 L (150-375) k/mm3 [facility] 09/13/24 04:24 Sodium 141 Potassium 4.4 Chloride 110 H Carbon Dioxide 23 BUN 21 H Creatinine 1.10 H Glucose 227 H Calcium 9.4 Liver Function 09/13/24 Range/Units 04:24 Total Bilirubin 0.8 (0.2-1.3) mg/dL AST 24 (14-36) U/L ALT 24 (6-35) U/L Alkaline Phosphatase 162 H (38-126) U/L Albumin 3.8 (3.5-5.1) g/dL Urine 09/13/24 Range/Units 07:15 Urine Color Yellow (Yellow) Urine Appearance Clear (Clear) Urine pH 6.5 (5.0-9.0) Ur Specific [place] 1.027 (1.001-1.035) Urine Protein 1+ H (Negative) mg/dL Urine Glucose (UA) Negative (Negative) mg/dL
[2024-09-14] VITALS (24 sets, daily range): BP systolic 115–156; BP diastolic 48–70; PULSE 87–120; RESP 18–20; TEMP 36.6–38.1; O2SAT 92–97
[2024-09-14] MEDS: IPRATROPIUM 0.5 MG/ALBUTEROL SULFATE 2.5 MG AMPUL.NEB 3 ML INHALATION ×4 (01:30→21:48)
[2024-09-14] MEDS: SODIUM CHLORIDE 0.9% IV 1,000 ML 75 ML IV CONT ×2 (03:48→15:46)
[2024-09-14 03:50] LABS: Glucose Point of Care 161 mg/dl (65-105)
[2024-09-14 05:01] LABS: Hematocrit 36.7 % (37.0-47.0); Hemoglobin 11.8 g/dL (12.0-15.0); Mean Corpuscular HGB Conc 32.2 g/dl (32-36); Mean Corpuscular Hemoglobin 29.9 pg (26-34); Mean Corpuscular Volume 92.9 fl (80-100); Mean Platelet Volume 10.9 fl (7.4-10.4); Platelet Count Result 103 k/mm3 (150-375); Red Blood Count 3.95 M/mm3 (4.2-5.4); Red Cell Distribution Width 14.7 % (11.5-14.5); White Blood Count 3.4 K/mm3 (4.5-10.0)
[2024-09-14 05:14] LABS: Alanine Aminotransferase 20 U/L (6-35); Albumin Level 3.5 g/dL (3.5-5.1); Alkaline Phosphatase 185 U/L (38-126); Anion Gap 5 mmol/L (4-12); Aspartate Amino Transferase 27 U/L (14-36); Bilirubin,Total 1.2 mg/dL (0.2-1.3); Blood Urea Nitrogen 25 mg/dL (7-17); Calcium 9.4 mg/dL (8.4-10.2); Carbon Dioxide 26 mmol/L (22-30); Chloride 108 mmol/L (98-107); Estimated CRCL calculation 30 ml/min; Estimated Glomerular Filt Rate 39; Glucose 215 mg/dL (65-110); Sodium 139 mmol/L (137-145)
[2024-09-14 05:27] LABS: Platelet Estimate Decreased (Adequate); Total Cells Counted 100
[2024-09-14 05:28] LABS: Band Neutrophils Percent 10 % (0-6); Lymphocytes Percent Manual 6 % (18-44); Monocytes Absolute Manual 0.13 K/mm3 (0.1-0.90); Monocytes Percent Manual 4 % (3-9); Neutrophils Absolute Manual 3.06 K/mm3 (1.7-7.2); Neutrophils Percent Manual 80 % (46-73)
[2024-09-14 05:29] LABS: Anisocytosis 1+; Ovalocytes 1+; Schistocytes None Seen
[2024-09-14 06:12] LABS: Glucose Point of Care 214 mg/dl (65-105)
[2024-09-14] MEDS: WATER FOR IRRIGATION, STERILE 1,000 ML BOTTLE 1000 ML (06:26)
[2024-09-14] MEDS: INSULIN ASPART (*BKC) 100 UNITS/ML SUB-Q (06:28)
[2024-09-14] MEDS: CEFEPIME 2 GM/NS 50 ML 2 GM/50 ML BAG IVPB ×2 (08:44→20:45)
[2024-09-14] MEDS: ENOXAPARIN 40 MG/0.4 ML SYRINGE SUB-Q (08:44)
[2024-09-14 11:41] LABS: Glucose Point of Care 174 mg/dl (65-105)
--- NOTE | 2024-09-14 14:37 | P.PNIM_ITS ---
Progress Note: A&P Assessment and Plan (1) Acute respiratory failure with hypoxia: Code(s): J96.01 - Acute respiratory failure with hypoxia Status: Acute Assessment and Plan: * Patient found at [facility] with oxygen saturation of 86% on room air with gurgling breath sounds. EMS gave patient a DuoNeb in route to the hospital. * Likely secondary to hospital acquired pneumonia * Currently on 2 L nasal cannula, normally room air at baseline * Continue to wean O2 for sat greater than 92% * Continue DuoNebs * Chest x-ray showing cardiomegaly with cardiac decompensation and pulmonary edema, left basilar atelectasis versus pneumonia * Continue Rocephin was changed to cefepime 2 g, azithromycin * MRSA was negative vancomycin was deescalated * ABG showing pH of 7.267, pCO2 37.6, PO2 67.8, bicarb 16.8 with a base excess of -9.4---metabolic acidosis, will start bicarb infusion 09/14 * Echo showed normal LV systolic function with an estimated EF of 60-65%, grade 1 diastolic dysfunction * CTA of the chest showed 5 mm pulmonary nodule which is probably benign, 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 Will likely need gabriel lifted to chair. 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 09/14 * Lactic acid 1.6 * resolved (4) Altered mental status: Qualifiers: Altered mental status type: stupor Qualified Code(s): R40.1 - Stupor Code(s): R41.82 - Altered mental status, unspecified Status: Acute Assessment and Plan: 09/14 * Normally alert oriented x2 at baseline. She does have dementia and lives at [facility]. * currently alert oriented x1, will follow some commands * Recently admitted and treated for urinary tract infection * UA showing 1+ urine protein, 2+ urine blood, trace leukocyte, 21-50 urine RBC, 6-10 urine WBC, 6-10 urine cast * urine culture pending * Continue neuro checks * Head CT showed stable moderate nonspecific cerebral white matter disease likely representing chronic small-vessel ischemic disease * currently NPO, had swallow study today with speech therapy and they recommend continuing NPO status and they will recheck in the morning. She was reported to do okay with pudding consistency (5) Hospital-acquired pneumonia: Code(s): J18.9 - Pneumonia, unspecified organism; Y95 - Nosocomial condition Status: Acute Assessment and Plan: See above problem #1. (6) Thrombocytopenia: Code(s): D69.6 - Thrombocytopenia, unspecified Status: Acute Assessment and Plan: * Platelet count 138 * She has been noted to be low on her platelets since 08/27/2024 however she was as low as 85 so she has improved from a month ago. * She is currently on vitamin B12 1000 mcg monthly * We will go ahead and check a vitamin B12 and folic acid levels today 09/13 * Hematology/oncology consulted as patient is now pancytopenic with a white blood cell count of 1.9, RBC 4.16, platelet count 114 * Vitamin B12 746, folate 5.4 09/14 * hematology/oncology suggesting that this is likely due to antibiotic /infe ction * ANC is 1400, hematology/oncology recommending if ANC drops below 1000 than weeks can consider Neupogen 300 mcg subQ daily. (7) CHF (congestive heart failure): Code(s): I50.9 - Heart failure, unspecified Status: Acute Assessment and Plan: * Last echo reviewed from 10/23/2021 revealed normal LV systolic function with an estimated EF of 60-65%, grade 1 diastolic dysfunction * We will go ahead and obtain a new echo today * Patient did receive 2400 mL of normal saline while in the ED * Will place Zhang for accurate I&O as well as due to her altered mental status * ProBNP 247 09/13 * Echo Showing normal LV systolic function with an estimated EF of 60-65%, grade 1 diastolic dysfunction * Will give another 40 mg Lasix IV x1 now as her lungs are still very coarse and requiring increased oxygen through the night with copious amounts of secretion * NT suctioning ordered (8) Dementia: Qualifiers: Dementia type: unspecified type Dementia behavioral disturbance: without behavioral disturbance Qualified Code(s): F03.90 - Unspecified dementia without behavioral disturbance Code(s): F03.90 - Unspecified dementia, unspecified severity, without behavioral disturbance, psychotic disturbance, mood disturbance, and anxiety Status: Chronic Assessment and Plan: * Lives at [facility] * Continue Namenda and Aricept when able to take p.o., currently on hold (9) Type 2 diabetes mellitus with hyperglycemia: Qualifiers: Diabetes mellitus parts counterman insulin use: with parts counterman use Qualified Code(s): E11.65 - Type 2 diabetes mellitus with hyperglycemia; Z79.4 - 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 (11) Hypertension: Qualifiers: Hypertension type: unspecified Qualified Code(s): I10 - Essential (primary) hypertension Code(s): I10 - Essential (primary) hypertension Status: Chronic Assessment and Plan: * Blood pressure ranging 115/57 to 156/70 * Continue lisinopril and amlodipine when able to take p.o., currently on hold * Will continue to monitor blood pressures and if she becomes elevated above 160 we will start hydralazine IV push (12) Hyperlipidemia: Code(s): E78.5 - Hyperlipidemia, unspecified Status: Chronic Assessment and Plan: * Continue aspirin and atorvastatin when able to take p.o., currently on hold Subjective Date/time seen: 09/14/24 14:37 Interval history: Interval history: This is an 84 year old patient with diabetic neuropathy, type 2 diabetes mellitus, multiple sclerosis, dementia, CHF, hypertension, hyperlipidemia who presented from [facility] to the hospital with shortness of breath/dyspnea. Staff at [facility] found patient making gurgling sounds and was not acting right per their report. EMS was called and gave patient a DuoNeb as they found her with an SpO2 of 86% on room air. Patient had a low-grade temp this morning and [facility] gave her a dose of Tylenol. They noted her to have a cough as well. On arrival to the ED patient was saturating 97% on room air and her vital signs were stable. Patient was recently hospitalized on 08/27/2024 through 08/31/2024 and was treated for urinary tract infection and completed a course of Keflex. Workup in the hospital included a chest x-ray which shown cardiomegaly with cardiac decompensation and pulmonary edema, left basilar atelectasis versus pneumonia. Initial labs showed a normal white blood cell count of 5.4, platelet count 138, creatinine 1.20, EGFR 43, lactic acid 4.6, alkaline phosphate 243, proBNP 170. Respiratory panel was negative for influenza a and B, RSV, COVID. Blood cultures were ordered and obtained. EKG showed sinus rhythm with a rate of 76, QTC 459. Patient was given 2400 mL of normal saline, Rocephin, and azithromycin while in the ED. 09/13/24: Antibiotics changed to cefepime 2 g and azithromycin, vancomycin was deescalated considering MRSA was negative. Rocephin was discontinued. 09/14/24: Added Mucomyst breathing treatments, NT suctioning, chest PT Subjective: Patient been Having copious amounts of secretions requiring frequent suctioning overnight and increased oxygen requirement to 8 L. She does have a weak cough. currently she is back down to 1 L and is alert and oriented x1. She does have a wet weak cough. Review of Systems Review of Systems: ROS unobtainable: Yes unobtainable due to mental status Exam Narrative: General: In no acute distress, well nourished Head: acute encephalopathy Cardiac: Normal S1 and S2. RRR, No murmur, gallops or friction rubs, peripheral pulses intact. Respiratory: Lungs course bilaterally, Raspy weak cough, currently on 1L NC Gastrointestinal: soft, non-distended, non-tender, normoactive bowel sounds. : Zhang catheter in place draining clear yellow urine Extremities: Foot drop noted bilaterally, patient is wheelchair-bound Neuro: Alert to voice, oriented x1, somewhat interactive Psych: unable to assess fully due to mental status Objective Data Vital Signs Vital Signs: Vital Signs - 24 hr 09/13/24 16:00 09/13/24 16:00 09/13/24 18:00 Temperature 97.6 F Pulse Rate 103 H 110 H 103 H Respiratory Rate 17 Blood Pressure 133/47 L Pulse Oximetry 100 Oxygen Delivery Oxygen Flow Rate 09/13/24 19:57 09/13/24 19:57 09/13/24 20:00 Temperature 98.3 F Pulse Rate 104 H 112 H Respiratory Rate 24 H 19 Blood Pressure 116/67 Pulse Oximetry 92 95 Oxygen Delivery Nasal Cannula Oxygen Flow Rate 5 09/13/24 20:00 09/13/24 20:00 09/13/24 20:04 Temperature Pulse Rate 109 H 112 H Respiratory Rate 22 H Blood Pressure Pulse Oximetry 92 Oxygen Delivery Nasal Cannula Oxygen Flow Rate 5 09/13/24 22:00 09/14/24 00:00 09/14/24 00:00 Temperature Pulse Rate 114 H 113 H Respiratory Rate Blood Pressure Pulse Oximetry 95 Oxygen Delivery Nasal Cannula Oxygen Flow Rate 2 09/14/24 00:00 09/14/24 01:31 09/14/24 01:39 Temperature 97.8 F Pulse Rate 109 H 108 H 120 H Respiratory Rate 18 20 20 Blood Pressure 142/48 H Pulse Oximetry 97 Oxygen Delivery Oxygen Flow Rate 09/14/24 02:00 09/14/24 04:00 09/14/24 04:00 Temperature 99.2 F Pulse Rate 111 H 114 H Respiratory Rate 19 Blood Pressure 154/57 H Pulse Oximetry 95 95 Oxygen Delivery High Flow Nasal Cannula Oxygen Flow Rate 8 09/14/24 04:00 09/14/24 06:00 09/14/24 07:15 Temperature Pulse Rate 105 H 105 H 100 Respiratory Rate 20 Blood Pressure Pulse Oximetry Oxygen Delivery Oxygen Flow Rate 09/14/24 07:23 09/14/24 08:00 09/14/24 09:50 Temperature 100.5 F H Pulse Rate 100 102 H Respiratory Rate 20 Blood Pressure 115/57 L Pulse Oximetry 95 92 Oxygen Delivery Nasal Cannula Oxygen Flow Rate 1 09/14/24 10:00 09/14/24 11:47 09/14/24 12:00 Temperature 98.9 F Pulse Rate 101 H 105 H 102 H Respiratory Rate 20 Blood Pressure 156/70 H Pulse Oximetry 94 Oxygen Delivery Oxygen Flow Rate 09/14/24 14:15 09/14/24 14:23 09/14/24 14:26 Temperature Pulse Rate 97 98 Respiratory Rate 20 20 Blood Pressure Pulse Oximetry 94 Oxygen Delivery Nasal Cannula Oxygen Flow Rate 4 Intake/Output Intake/Output: Intake & Output 09/11/24 09/12/24 09/13/24 09/14/24 23:59 23:59 23:59 23:59 Intake Total 7995 320 3729 Output Total 3000 150 Balance 1300 -0480 850 Meds/Results Medications: Active Medications Generic Name Dose Route Start Last Admin Trade Name Freq PRN Reason Stop Dose Admin Acetaminophen 650 mg 09/12/24 14:49 Acetaminophen 325 Mg Tablet PO Q4H PRN Mild Pain (1-3) or Fever Acetaminophen 650 mg 09/13/24 03:48 09/13/24 04:05 Acetaminophen 650 Mg Suppository RECTAL 650 mg Q6H PRN Administration Mild Pain (1-3) or Fever Albuterol/Ipratropium 3 ml 09/12/24 20:00 09/14/24 14:23 Ipratropium 0.5 Mg/Albuterol Sulfate 2.5 Mg Ampul.Neb 3 Ml INHALATION 3 ml Q6HRT ELVIRA Administration Amlodipine Besylate 5 mg 09/13/24 09:00 09/13/24 08:19 Amlodipine Besylate 5 Mg Tablet PO Not Given DAILY [facility] Aspirin 81 mg 09/13/24 08:00 09/13/24 08:19 Aspirin 81 Mg Chewable Tablet PO Not Given DAILY@0800 ELVIRA Atorvastatin Calcium 40 mg 09/13/24 09:00 09/13/24 08:19 Atorvastatin 40 Mg Tablet PO Not Given DAILY ELVIRA Dextrose 12.5 gm 09/12/24 16:06 Dextrose 50% 25 Gm/50 Ml Syringe IV PUSH PRN PRN Hypoglycemia Protocol Donepezil HCl 10 mg 09/13/24 09:00 09/13/24 08:19 Donepezil Hcl 10 Mg Tablet PO Not Given DAILY [facility] Enoxaparin Sodium 40 mg 09/13/24 09:00 09/14/24 08:44 Enoxaparin 40 Mg/0.4 Ml Syringe SUB-Q 40 mg DAILY ELVIRA Administration Glucagon 1 mg 09/12/24 16:06 Glucagon For Inj 1 Mg Vial IM PRN PRN Hypoglycemia Protocol Glucose 15 gm 09/12/24 16:06 Glucose Oral Gel 15 Gm Of Glucse In 37.5 Gm Tube PO PRN PRN Hypoglycemia Protocol Guaifenesin 1,200 mg 09/14/24 09:00 09/14/24 08:44 Guaifenesin 12 Hr 600 Mg Tabcr PO Not Given Q12HR [facility] Azithromycin 500 mg in 250 mls @ 250 mls/hr 09/13/24 15:00 09/13/24 15:44 Zithromax IVPB 250 mls/hr Q24H ELVIRA Administration Dextrose 1,000 mls @ 100 mls/hr 09/12/24 16:06 Dextrose 5% 1,000 Ml IVPB PRN PRN Hypoglycemia Protocol Sodium Chloride 1,000 mls @ 75 mls/hr 09/13/24 08:55 09/14/24 03:48 Normal Saline Iv IV CONT 75 mls/hr .[id number] ELVIRA Administration Cefepime HCl 2 gm in 50 mls @ 100 mls/hr 09/13/24 11:00 09/14/24 08:44 Maxipime 2 Gm/Ns 50 Ml IVPB 100 mls/hr Q12HR ELVIRA Administration Insulin Aspart 3 - 6 units 09/13/24 12:00 09/14/24 06:28 Insulin Aspart (*Bkc) 100 Units/Ml SUB-Q 3 units Q6HR [facility] Administration Protocol Lisinopril 10 mg 09/13/24 09:00 09/13/24 08:20 Lisinopril 10 Mg Tablet PO Not Given DAILY [facility] Magnesium Oxide 400 mg 09/13/24 09:00 09/13/24 08:20 Magnesium Oxide 400 Mg Tablet PO Not Given DAILY [facility] Memantine 10 mg 09/12/24 21:00 09/13/24 08:20 Memantine 10 Mg Tablet PO Not Given Q12HR [facility] Ondansetron HCl 4 mg 09/12/24 16:05 Ondansetron Inj 4 Mg/2 Ml Vial IV PUSH Q6H PRN Nausea And Vomiting Perflutren Lipid Microsphere 0 ml 09/12/24 16:03 Perflutren Lipid Microspheres 1.5 Ml Vial Diluted To 10 Ml Total Volume IV PUSH 09/15/24 16:03 ONCE PRN adequate visualization Protocol Promethazine HCl 12.5 mg 09/12/24 14:49 Promethazine Hcl 25 Mg/Ml Ampul IV PUSH Q6H PRN Nausea Vitamin D 5,000 units 09/13/24 09:00 09/13/24 08:19 Cholecalciferol 1,000 Units Tablet PO Not Given DAILY [facility] Radiology Results: ITS Impressions Head CT 09/12/24 18:11 IMPRESSION: 1. Stable moderate nonspecific cerebral white matter disease, which likely represents chronic small vessel ischemic disease. Chest/Abdomen/Pelvis CTA 09/12/24 18:16 IMPRESSION: 1. 5 mm pulmonary nodule, probably benign. Consider noncontrast low-dose chest CT in 6-12 months. 2. Moderate stenosis of right common iliac artery. Chest X-Ray 09/13/24 21:41 IMPRESSION: 1. Airspace opacities at the lung bases with worsening on the left, consistent with atelectasis versus pneumonia. Labs Labs: Laboratory Results - last 24 hr 09/13/24 09/13/24 09/13/24 12:17 14:28 16:28 WBC RBC Hgb Hct MCV MCH MCHC RDW Plt Count MPV Immature Gran % (Auto) Neut % (Auto) Lymph % (Auto) [place] % (Auto) Eos % (Auto) Baso % (Auto) Lymph # (Auto) [place] # (Auto) Eos # (Auto) Baso # (Auto) Abs Immat Gran (auto) Absolute Neuts (auto) Absolute Nucleated RBC Total Counted Neutrophils % (Manual) Band Neutrophils % Lymphocytes % (Manual) Monocytes % (Manual) Nucleated RBC % Abs Neuts (Manual) Abs Lymphs (Manual) Abs Monocytes (Manual) Platelet Estimate Anisocytosis Ovalocytes Schistocytes Sodium Potassium Chloride Carbon Dioxide Anion Gap BUN Creatinine Estim Creat Clear Calc Estimated GFR Glucose POC Capillary Glucose 114 H Lactic Acid 1.6 Calcium Total Bilirubin AST ALT Alkaline Phosphatase Total Protein Albumin C. difficile (PCR) Negative 09/13/24 09/14/24 09/14/24 18:29 00:02 04:07 WBC 3.4 L RBC 3.95 L Hgb 11.8 L Hct 36.7 L MCV 92.9 MCH 29.9 MCHC 32.2 RDW 14.7 H Plt Count 103 L MPV 10.9 H Immature Gran % (Auto) Not Reportable Neut % (Auto) Not Reportable Lymph % (Auto) Not Reportable [place] % (Auto) Not Reportable Eos % (Auto) Not Reportable Baso % (Auto) Not Reportable Lymph # (Auto) Not Reportable [place] # (Auto) Not Reportable Eos # (Auto) Not Reportable Baso # (Auto) Not Reportable Abs Immat Gran (auto) Not Reportable Absolute Neuts (auto) Not Reportable Absolute Nucleated RBC Not Reportable Total Counted 100 Neutrophils % (Manual) 80 H Band Neutrophils % 10 H Lymphocytes % (Manual) 6 L Monocytes % (Manual) 4 Nucleated RBC % Not Reportable Abs Neuts (Manual) 3.06 Abs Lymphs (Manual) 0.20 L Abs Monocytes (Manual) 0.13 Platelet Estimate Decreased Anisocytosis 1+ Ovalocytes 1+ Schistocytes None seen Sodium 139 Potassium 4.0 Chloride 108 H Carbon Dioxide 26 Anion Gap 5 BUN 25 H Creatinine 1.30 H Estim Creat Clear Calc 30 Estimated GFR 39 L Glucose 215 H POC Capillary Glucose 149 H 161 H Lactic Acid Calcium 9.4 Total Bilirubin 1.2 AST 27 ALT 20 Alkaline Phosphatase 185 H Total Protein 7.0 Albumin 3.5 C. difficile (PCR) 09/14/24 09/14/24 06:09 11:39 WBC RBC Hgb Hct MCV MCH MCHC RDW Plt Count MPV Immature Gran % (Auto) Neut % (Auto) Lymph % (Auto) [place] % (Auto) Eos % (Auto) Baso % (Auto) Lymph # (Auto) [place] # (Auto) Eos # (Auto) Baso # (Auto) Abs Immat Gran (auto) Absolute Neuts (auto) Absolute Nucleated RBC Total Counted Neutrophils % (Manual) Band Neutrophils % Lymphocytes % (Manual) Monocytes % (Manual) Nucleated RBC % Abs Neuts (Manual) Abs Lymphs (Manual) Abs Monocytes (Manual) Platelet Estimate Anisocytosis Ovalocytes Schistocytes Sodium Potassium Chloride Carbon Dioxide Anion Gap BUN Creatinine Estim Creat Clear Calc Estimated GFR Glucose POC Capillary Glucose 214 H 174 H Lactic Acid Calcium Total Bilirubin AST ALT Alkaline Phosphatase Total Protein Albumin C. difficile (PCR) Quality VTE Prophylaxis VTE prophylaxis: pharmacologic ordered
--- NOTE | 2024-09-14 15:00 | PCSTNOTE ---
Please refer to the Bedside Swallow Evaluation in the EMR. Please note, silent aspiration cannot be ruled out at bedside.
[2024-09-14] MEDS: AZITHROMYCIN 500 MG/NS 250 ML 500 MG/250 ML BAG 250 MG IVPB (15:38)
[2024-09-14] MEDS: FUROSEMIDE INJ 40 MG/4 ML VIAL IV PUSH (15:40)
[2024-09-14 18:38] LABS: Glucose Point of Care 184 mg/dl (65-105)
[2024-09-14 20:47] LABS: Glucose Point of Care 150 mg/dl (65-105)
[2024-09-14] MEDS: ACETYLCYSTEINE 20% INHAL SOLN 800 MG/4 ML VIAL 200 MG INHALATION (21:48)
[2024-09-15] VITALS (23 sets, daily range): BP systolic 136–167; BP diastolic 55–96; PULSE 70–102; RESP 18–20; TEMP 36.4–37.4; O2SAT 91–96
[2024-09-15] MEDS: ACETYLCYSTEINE 20% INHAL SOLN 800 MG/4 ML VIAL 200 MG INHALATION ×4 (02:45→20:09)
[2024-09-15] MEDS: IPRATROPIUM 0.5 MG/ALBUTEROL SULFATE 2.5 MG AMPUL.NEB 3 ML INHALATION ×4 (02:45→20:08)
[2024-09-15 04:48] LABS: Hematocrit 32.2 % (37.0-47.0); Hemoglobin 10.4 g/dL (12.0-15.0); Mean Corpuscular HGB Conc 32.3 g/dl (32-36); Mean Corpuscular Hemoglobin 29.8 pg (26-34); Mean Corpuscular Volume 92.3 fl (80-100); Mean Platelet Volume 10.2 fl (7.4-10.4); Platelet Count Result 100 k/mm3 (150-375); Red Blood Count 3.49 M/mm3 (4.2-5.4); Red Cell Distribution Width 14.6 % (11.5-14.5); White Blood Count 3.4 K/mm3 (4.5-10.0)
[2024-09-15 05:01] LABS: Alanine Aminotransferase 18 U/L (6-35); Albumin Level 3.2 g/dL (3.5-5.1); Alkaline Phosphatase 145 U/L (38-126); Anion Gap 3 mmol/L (4-12); Aspartate Amino Transferase 26 U/L (14-36); Bilirubin,Total 0.9 mg/dL (0.2-1.3); Blood Urea Nitrogen 26 mg/dL (7-17); Calcium 9.5 mg/dL (8.4-10.2); Carbon Dioxide 28 mmol/L (22-30); Chloride 110 mmol/L (98-107); Estimated CRCL calculation 30 ml/min; Estimated Glomerular Filt Rate 39; Glucose 164 mg/dL (65-110); Potassium 3.6 mmol/L (3.4-5.0); Sodium 141 mmol/L (137-145)
[2024-09-15] MEDS: SODIUM CHLORIDE 0.9% IV 1,000 ML 75 ML IV CONT ×2 (05:07→20:05)
[2024-09-15 05:14] LABS: Band Neutrophils Percent 10 % (0-6); Eosinophils Percent Manual 6 % (0-4); Lymphocytes Absolute Manual 0.74 K/mm3 (1.1-4.5); Monocytes Absolute Manual 0.17 K/mm3 (0.1-0.90); Monocytes Percent Manual 5 % (3-9); Neutrophils Absolute Manual 2.27 K/mm3 (1.7-7.2); Neutrophils Percent Manual 57 % (46-73); Platelet Estimate Adequate (Adequate); Total Cells Counted 100
[2024-09-15 05:15] LABS: Anisocytosis 1+; Hypochromasia 1+; Schistocytes None Seen
[2024-09-15] MEDS: ENOXAPARIN 40 MG/0.4 ML SYRINGE SUB-Q (09:37)
[2024-09-15] MEDS: CEFEPIME 2 GM/NS 50 ML 2 GM/50 ML BAG IVPB ×2 (09:37→20:28)
[2024-09-15 12:21] LABS: Glucose Point of Care 158 mg/dl (65-105)
--- NOTE | 2024-09-15 12:24 | PCNFU ---
Nutrition Follow-Up Complete: Inadequate energy intake related to current mental status as evidenced by pt is not alert enough for po intake at this time Goal:Diet order Pt current nutrition is NPO. Nutrition recommendation: MBS to assess swallow Last recorded weight is 75 kg. Bowel Motility:+BM 09/12 Labs Reviewed: Hgb:10.4, HCT:32.2, Alb:3.2, BUN:26, Cr:1.3, Glu:164 Meds Noted: Vit D, insulin Skin: WNL Additional Notes: Pt remains NPO, failed a bedside evaluation, recommendations for a MBS per speech, recommend to continue with MBS and assess swallow function. Pt has been NPO x 3 days. Monitor status, diet order, intake, wt, labs. Follow up in 3 days.
--- NOTE | 2024-09-15 14:31 | PCSTNOTE ---
Therapist spoke with Madhavi RN, about retesting swallowing skills and patient laboratory animal care veterinarian reports patient is more awake and alert and responsive, still perseverating to yes, ma'am. Therapist contacted [facility], about order for Modified Barium Swallow study tomorrow.
[2024-09-15] MEDS: AZITHROMYCIN 500 MG/NS 250 ML 500 MG/250 ML BAG 250 MG IVPB (14:38)
--- NOTE | 2024-09-15 16:35 | P.PNIM_ITS ---
Progress Note: A&P Assessment and Plan (1) Acute respiratory failure with hypoxia: Code(s): J96.01 - Acute respiratory failure with hypoxia Status: Acute Assessment and Plan: * Patient found at custodial with oxygen saturation of 86% on room air with gurgling breath sounds. EMS gave patient a DuoNeb in route to the hospital. * Likely secondary to hospital acquired pneumonia * Currently on 2 L nasal cannula, normally room air at baseline * Continue to wean O2 for sat greater than 92% * Continue DuoNebs * Chest x-ray showing cardiomegaly with cardiac decompensation and pulmonary edema, left basilar atelectasis versus pneumonia * Continue Rocephin was changed to cefepime 2 g, azithromycin * MRSA was negative vancomycin was deescalated * ABG showing pH of 7.267, pCO2 37.6, PO2 67.8, bicarb 16.8 with a base excess of -9.4---metabolic acidosis, will start bicarb infusion 09/14 * Echo showed normal LV systolic function with an estimated EF of 60-65%, grade 1 diastolic dysfunction * CTA of the chest showed 5 mm pulmonary nodule which is probably benign, 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 Will likely need gabriel lifted to chair. 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 09/14 * Lactic acid 1.6 * resolved (4) Altered mental status: Qualifiers: Altered mental status type: stupor Qualified Code(s): R40.1 - Stupor Code(s): R41.82 - Altered mental status, unspecified Status: Acute Assessment and Plan: 09/14 * Normally alert oriented x2 at baseline. She does have dementia and lives at [facility]. * currently alert oriented x1, will follow some commands * Recently admitted and treated for urinary tract infection * UA showing 1+ urine protein, 2+ urine blood, trace leukocyte, 21-50 urine RBC, 6-10 urine WBC, 6-10 urine cast * urine culture pending * Continue neuro checks * Head CT showed stable moderate nonspecific cerebral white matter disease lik cristal representing chronic small-vessel ischemic disease * currently NPO, had swallow study today with speech therapy and they recommend continuing NPO status and they will recheck in the morning. She was reported to do okay with pudding consistency 09/15/24: * No previous history of CVA * will get MRI brain and brain stem due to new dysphagia HX of MS could be further lesions (5) Hospital-acquired pneumonia: Code(s): J18.9 - Pneumonia, unspecified organism; Y95 - Nosocomial condition Status: Acute Assessment and Plan: See above problem #1. (6) Thrombocytopenia: Code(s): D69.6 - Thrombocytopenia, unspecified Status: Acute Assessment and Plan: * Platelet count 138 * She has been noted to be low on her platelets since 08/27/2024 however she was as low as 85 so she has improved from a month ago. * She is currently on vitamin B12 1000 mcg monthly * We will go ahead and check a vitamin B12 and folic acid levels today 09/13 * Hematology/oncology consulted as patient is now pancytopenic with a white blood cell count of 1.9, RBC 4.16, platelet count 114 * Vitamin B12 746, folate 5.4 09/14 * hematology/oncology suggesting that this is likely due to antibiotic /infection * ANC is 1400, hematology/oncology recommending if ANC drops below 1000 than weeks can consider Neupogen 300 mcg subQ daily. IMPROVING (7) CHF (congestive heart failure): Code(s): I50.9 - Heart failure, unspecified Status: Acute Assessment and Plan: * Last echo reviewed from 10/23/2021 revealed normal LV systolic function with an estimated EF of 60-65%, grade 1 diastolic dysfunction * We will go ahead and obtain a new echo today * Patient did receive 2400 mL of normal saline while in the ED * Will place Zhang for accurate I&O as well as due to her altered mental status * ProBNP 247 09/13 * Echo Showing normal LV systolic function with an estimated EF of 60-65%, grade 1 diastolic dysfunction * Will give another 40 mg Lasix IV x1 now as her lungs are still very coarse and requiring increased oxygen through the night with copious amounts of secretion * NT suctioning ordered Continue current treatment plan (8) Dementia: Qualifiers: Dementia type: unspecified type Dementia behavioral disturbance: without behavioral disturbance Qualified Code(s): F03.90 - Unspecified dementia without behavioral disturbance Code(s): F03.90 - Unspecified dementia, unspecified severity, without behavioral disturbance, psychotic disturbance, mood disturbance, and anxiety Status: Chronic Assessment and Plan: * Lives at [facility] * Continue Namenda and Aricept when able to take p.o., currently on hold (9) Type 2 diabetes mellitus with hyperglycemia: Qualifiers: Diabetes mellitus intermediate insulin use: with intermediate card tender use Qualified Code(s): E11.65 - Type 2 diabetes mellitus with hyperglycemia; Z79.4 - USP (current) use of insulin Code(s): E11.65 - Type 2 diabetes mellitus with hyperglycemia Status: Chronic Assessment and Plan: 09/14 * Blood sugars ranging 174-214 * Hgb A1C 6.1 on 10/23/2021 * repeat hemoglobin A1c was 6.2 * Accu checks q.6 hour * Moderate dose SSI ordered * Will hold Lantus for now as she is not able to eat or drink * hypoglycemic protocol in place * Currently NPO, consider adding dextrose to IV fluids if drop below 100 on blood glucose readings 09/15: * Glucose stable at this time * Currently NPO, consider adding dextrose to IV fluids if drop below 100 on blood glucose readings (10) Multiple sclerosis: Code(s): G35 - Multiple sclerosis Status: Chronic Assessment and Plan: * Continue Lyrica when able to take p.o. (11) Hypertension: Qualifiers: Hypertension type: unspecified Qualified Code(s): I10 - Essential (primary) hypertension Code(s): I10 - Essential (primary) hypertension Status: Chronic Assessment and Plan: * Blood pressure ranging 115/57 to 156/70 * Continue lisinopril and amlodipine when able to take p.o., currently on hold * Will continue to monitor blood pressures 09/15/24: * added hydralazine IV push p.r.n. for systolics over 160 while NPO (12) Hyperlipidemia: Code(s): E78.5 - Hyperlipidemia, unspecified Status: Chronic Assessment and Plan: * Continue aspirin and atorvastatin when able to take p.o., currently on hold Plan Code status: DNR DNI DVT prophylaxis: Lovenox Stress ulcer prophylaxis: Protonix 40 daily PT/OT notes: patient is bed-bound lives at a assisted facility Disposition: patient continues admission for treatment of acute respiratory failure with hypoxia secondary to pneumonia as well as altered mental status and dysphagia plan for follow-up MBS tomorrow and MRI brain and brainstem to rule out acute infarct. patient to remain NPO awaiting on further recommendations from speech and MBS. Time Spent With Patient Time with patient: 25 - 35 minutes Subjective Date/time seen: 09/15/24 16:35 Interval history: Patient is a 84 year old female admitted for treatment of acute on chronic respiratory failure with hypoxia, metabolic acidosis dysphagia and AMS 09/15/2024: Assumed Care Patient alert and oriented to 1 to 2 which son reports is baseline however I have some concern for stroke. patient with intermittent responsiveness and current dysphagia will order MRI. Patient unable to answer questions but will respond to painful stimuli as well as tracking with her eyes. Review of Systems Review of Systems: ROS unobtainable: Yes unobtainable due to mental status Exam Narrative: General: In no acute distress, well nourished alert intermittently 1-2 tracking with eyes in response to stimuli Head: acute encephalopathy Cardiac: Normal S1 and S2. Respiratory: Lungs course bilaterally, Raspy weak cough, currently on 1L NC difficulty clearing secretions Gastrointestinal: soft, non-distended, non-tender, normoactive bowel sounds. : Zhang catheter in place draining clear yellow urine Extremities: Foot drop noted bilaterally, patient is wheelchair-bound Neuro: Alert to voice, oriented x1, somewhat interactive Psych: unable to assess fully due to mental status Objective Data Vital Signs Vital Signs: Vital Signs - 24 hr 09/14/24 18:00 09/14/24 20:00 09/14/24 20:00 Temperature 98.4 F Pulse Rate 98 92 Respiratory Rate 18 Blood Pressure 121/67 Pulse Oximetry 97 97 Oxygen Delivery Nasal Cannula Oxygen Flow Rate 2 09/14/24 20:00 09/14/24 21:49 09/14/24 21:52 Temperature Pulse Rate 90 90 Respiratory Rate 20 Blood Pressure Pulse Oximetry 97 Oxygen Delivery Nasal Cannula Oxygen Flow Rate 4 09/14/24 22:00 09/15/24 00:00 09/15/24 00:00 Temperature 99.3 F Pulse Rate 87 90 Respiratory Rate 19 Blood Pressure 151/59 H Pulse Oximetry 95 95 Oxygen Delivery Nasal Cannula Oxygen Flow Rate 2 09/15/24 00:00 09/15/24 02:00 09/15/24 02:45 Temperature Pulse Rate 91 87 78 Respiratory Rate 20 Blood Pressure Pulse Oximetry Oxygen Delivery Oxygen Flow Rate 09/15/24 02:55 09/15/24 04:00 09/15/24 04:00 Temperature 98.3 F Pulse Rate 81 76 Respiratory Rate 20 19 Blood Pressure 149/61 H Pulse Oximetry 96 96 Oxygen Delivery Nasal Cannula Oxygen Flow Rate 2 09/15/24 04:00 09/15/24 06:00 09/15/24 07:29 Temperature 97.8 F Pulse Rate 76 75 80 Respiratory Rate 18 Blood Pressure 153/56 H Pulse Oximetry 95 Oxygen Delivery Oxygen Flow Rate 09/15/24 08:00 09/15/24 08:19 09/15/24 08:19 Temperature Pulse Rate 74 77 Respiratory Rate 18 Blood Pressure Pulse Oximetry 96 Oxygen Delivery Nasal Cannula Oxygen Flow Rate 1 09/15/24 08:28 09/15/24 10:00 09/15/24 11:41 Temperature 98.8 F Pulse Rate 78 89 92 Respiratory Rate 20 20 Blood Pressure 154/96 H Pulse Oximetry 91 Oxygen Delivery Oxygen Flow Rate 09/15/24 12:00 09/15/24 13:57 09/15/24 14:00 Temperature Pulse Rate 89 86 70 Respiratory Rate 20 Blood Pressure Pulse Oximetry Oxygen Delivery Oxygen Flow Rate 09/15/24 15:38 Temperature 98.2 F Pulse Rate 93 Respiratory Rate 20 Blood Pressure 165/57 H Pulse Oximetry 95 Oxygen Delivery Oxygen Flow Rate Intake/Output Intake/Output: Intake & Output 09/12/24 09/13/24 09/14/24 09/15/24 23:59 23:59 23:59 23:59 Intake Total 5793 307 6718.5 1050 Output Total 3000 1250 800 Balance 1300 -2410 997.5 250 Meds/Results Medications: Active Medications Generic Name Dose Route Start Last Admin Trade Name Freq PRN Reason Stop Dose Admin Acetaminophen 650 mg 09/12/24 14:49 Acetaminophen 325 Mg Tablet PO Q4H PRN Mild Pain (1-3) or Fever Acetaminophen 650 mg 09/13/24 03:48 09/13/24 04:05 Acetaminophen 650 Mg Suppository RECTAL 650 mg Q6H PRN Administration Mild Pain (1-3) or Fever Acetylcysteine 200 mg 09/14/24 14:00 09/15/24 13:59 Acetylcysteine 20% Inhal Soln 800 Mg/4 Ml Vial INHALATION 200 mg Q6HRT ELVIRA Administration Albuterol/Ipratropium 3 ml 09/12/24 20:00 09/15/24 13:56 Ipratropium 0.5 Mg/Albuterol Sulfate 2.5 Mg Ampul.Neb 3 Ml INHALATION 3 ml Q6HRT ELVIRA Administration Amlodipine Besylate 5 mg 09/13/24 09:00 09/13/24 08:19 Amlodipine Besylate 5 Mg Tablet PO Not Given DAILY ELVIRA Aspirin 81 mg 09/13/24 08:00 09/13/24 08:19 Aspirin 81 Mg Chewable Tablet PO Not Given DAILY@0800 ELVIRA Atorvastatin Calcium 40 mg 09/13/24 09:00 09/13/24 08:19 Atorvastatin 40 Mg Tablet PO Not Given DAILY ELVIRA Dextrose 12.5 gm 09/12/24 16:06 Dextrose 50% 25 Gm/50 Ml Syringe IV PUSH PRN PRN Hypoglycemia Protocol Donepezil HCl 10 mg 09/13/24 09:00 09/13/24 08:19 Donepezil Hcl 10 Mg Tablet PO Not Given DAILY [facility] Enoxaparin Sodium 40 mg 09/13/24 09:00 09/15/24 09:37 Enoxaparin 40 Mg/0.4 Ml Syringe SUB-Q 40 mg DAILY ELVIRA Administration Glucagon 1 mg 09/12/24 16:06 Glucagon For Inj 1 Mg Vial IM PRN PRN Hypoglycemia Protocol Glucose 15 gm 09/12/24 16:06 Glucose Oral Gel 15 Gm Of Glucse In 37.5 Gm Tube PO PRN PRN Hypoglycemia Protocol Guaifenesin 1,200 mg 09/14/24 09:00 09/15/24 09:25 Guaifenesin 12 Hr 600 Mg Tabcr PO Not Given Q12HR ELVIRA Azithromycin 500 mg in 250 mls @ 250 mls/hr 09/13/24 15:00 09/15/24 14:38 Zithromax IVPB 09/16/24 15:59 250 mls/hr Q24H ELVIRA Administration Dextrose 1,000 mls @ 100 mls/hr 09/12/24 16:06 Dextrose 5% 1,000 Ml IVPB PRN PRN Hypoglycemia Protocol Sodium Chloride 1,000 mls @ 75 mls/hr 09/13/24 08:55 09/15/24 05:07 Normal Saline Iv IV CONT 75 mls/hr .[id number] [facility] Administration Cefepime HCl 2 gm in 50 mls @ 100 mls/hr 09/13/24 11:00 09/15/24 10:07 Maxipime 2 Gm/Ns 50 Ml IVPB 09/19/24 21:29 Infused Q12HR [facility] Infusion Insulin Aspart 3 - 6 units 09/13/24 12:00 09/15/24 11:48 Insulin Aspart (*Bkc) 100 Units/Ml SUB-Q Not Given Q6HR [facility] Protocol Lisinopril 10 mg 09/13/24 09:00 09/13/24 08:20 Lisinopril 10 Mg Tablet PO Not Given DAILY [facility] Magnesium Oxide 400 mg 09/13/24 09:00 09/13/24 08:20 Magnesium Oxide 400 Mg Tablet PO Not Given DAILY [facility] Memantine 10 mg 09/12/24 21:00 09/13/24 08:20 Memantine 10 Mg Tablet PO Not Given Q12HR [facility] Ondansetron HCl 4 mg 09/12/24 16:05 Ondansetron Inj 4 Mg/2 Ml Vial IV PUSH Q6H PRN Nausea And Vomiting Promethazine HCl 12.5 mg 09/12/24 14:49 Promethazine Hcl 25 Mg/Ml Ampul IV PUSH Q6H PRN Nausea Vitamin D 5,000 units 09/13/24 09:00 09/13/24 08:19 Cholecalciferol 1,000 Units Tablet PO Not Given DAILY [facility] Radiology Results: ITS Impressions Head CT 09/12/24 18:11 IMPRESSION: 1. Stable moderate nonspecific cerebral white matter disease, which likely represents chronic small vessel ischemic disease. Chest/Abdomen/Pelvis CTA 09/12/24 18:16 IMPRESSION: 1. 5 mm pulmonary nodule, probably benign. Consider noncontrast low-dose chest CT in 6-12 months. 2. Moderate stenosis of right common iliac artery. Chest X-Ray 09/13/24 21:41 IMPRESSION: 1. Airspace opacities at the lung bases with worsening on the left, consistent with atelectasis versus pneumonia. Labs Labs: Laboratory Results - last 24 hr 12/18/24 12/18/24 12/19/24 18:36 20:39 04:32 WBC 3.4 L RBC 3.49 L Hgb 10.4 L Hct 32.2 L MCV 92.3 MCH 29.8 MCHC 32.3 RDW 14.6 H Plt Count 100 L MPV 10.2 Immature Gran % (Auto) Not Reportable Neut % (Auto) Not Reportable Lymph % (Auto) Not Reportable [place] % (Auto) Not Reportable Eos % (Auto) Not Reportable Baso % (Auto) Not Reportable Lymph # (Auto) Not Reportable [place] # (Auto) Not Reportable Eos # (Auto) Not Reportable Baso # (Auto) Not Reportable Abs Immat Gran (auto) Not Reportable Absolute Neuts (auto) Not Reportable Absolute Nucleated RBC Not Reportable Total Counted 100 Neutrophils % (Manual) 57 Band Neutrophils % 10 H Lymphocytes % (Manual) 22.0 Monocytes % (Manual) 5 Eosinophils % (Manual) 6 H Nucleated RBC % Not Reportable Abs Neuts (Manual) 2.27 Abs Lymphs (Manual) 0.74 L Abs Monocytes (Manual) 0.17 Absolute Eos (Manual) 0.20 Platelet Estimate Adequate Hypochromasia 1+ Anisocytosis 1+ Schistocytes None seen Sodium 141 Potassium 3.6 Chloride 110 H Carbon Dioxide 28 Anion Gap 3 L BUN 26 H Creatinine 1.30 H Estim Creat Clear Calc 30 Estimated GFR 39 L Glucose 164 H POC Capillary Glucose 184 H 150 H Calcium 9.5 Total Bilirubin 0.9 AST 26 ALT 18 Alkaline Phosphatase 145 H Total Protein 6.0 L Albumin 3.2 L 09/15/24 11:43 WBC RBC Hgb Hct MCV MCH MCHC RDW Plt Count MPV Immature Gran % (Auto) Neut % (Auto) Lymph % (Auto) [place] % (Auto) Eos % (Auto) Baso % (Auto) Lymph # (Auto) [place] # (Auto) Eos # (Auto) Baso # (Auto) Abs Immat Gran (auto) Absolute Neuts (auto) Absolute Nucleated RBC Total Counted Neutrophils % (Manual) Band Neutrophils % Lymphocytes % (Manual) Monocytes % (Manual) Eosinophils % (Manual) Nucleated RBC % Abs Neuts (Manual) Abs Lymphs (Manual) Abs Monocytes (Manual) Absolute Eos (Manual) Platelet Estimate Hypochromasia Anisocytosis Schistocytes Sodium Potassium Chloride Carbon Dioxide Anion Gap BUN Creatinine Estim Creat Clear Calc Estimated GFR Glucose POC Capillary Glucose 158 H Calcium Total Bilirubin AST ALT Alkaline Phosphatase Total Protein Albumin Quality VTE Prophylaxis VTE prophylaxis: pharmacologic ordered -Patient's previous records reviewed on admission -ER notes reviewed in detail on admission -discussed all findings and current treatment plan with patient/Family/POA -Consultations reviewed for recommendations -Patient's disposition for safe discharge discussed with case packer Dictation performed by [id number] direct speech recognition software, therefore government documents librarian variants and typographical errors may occur. Hospitalist MIPS Advance Care Plan I have confirmed that the patient's Advanced Care Plan is present, code status is documented, or surrogate decision maker is listed in patient medical record.: Yes Medication Reconciliation I have utilized all available resources to obtain, update and review the patients current medications (includes all prescriptions, OTC, herbals, cannabis, and nutritional supplements).: Yes The patient is not eligible for med reconciliation; the patient is in a emergent medical situation where delaying treatment would jeopardize the patients health.: No
[2024-09-15] MEDS: hydrALAZINE HCL 20 MG/ML VIAL IV PUSH (18:18)
[2024-09-15 18:27] LABS: Glucose Point of Care 151 mg/dl (65-105)
[2024-09-16] VITALS (9 sets, daily range): BP systolic 143–183; BP diastolic 66–97; PULSE 85–96; RESP 14–24; TEMP 36.3–37.2; O2SAT 94–100
[2024-09-16 00:11] LABS: Glucose Point of Care 192 mg/dl (65-105)
[2024-09-16] MEDS: IPRATROPIUM 0.5 MG/ALBUTEROL SULFATE 2.5 MG AMPUL.NEB 3 ML INHALATION ×3 (01:36→14:58)
[2024-09-16] MEDS: ACETYLCYSTEINE 20% INHAL SOLN 800 MG/4 ML VIAL 200 MG INHALATION ×3 (01:36→14:58)
[2024-09-16 07:00] LABS: Glucose Point of Care 174 mg/dl (65-105)
[2024-09-16 07:11] LABS: Basophils Percent Auto 0.3 % (0.2-1.2); Eosinophils Percent Auto 0.3 % (0-4.4); Hematocrit 34.3 % (37.0-47.0); Hemoglobin 10.9 g/dL (12.0-15.0); Immature Granulocyte Absolute 0.05 K/mm3 (0.00-0.031); Immature Granulocyte Percent A 1.3 % (0-0.5); Lymphocytes Absolute Auto 0.52 K/mm3 (0.9-3.2); Mean Corpuscular HGB Conc 31.8 g/dl (32-36); Mean Corpuscular Hemoglobin 29.3 pg (26-34); Mean Corpuscular Volume 92.2 fl (80-100); Mean Platelet Volume 10.4 fl (7.4-10.4); Monocytes Absolute Auto 0.2 K/mm3 (0.1-0.6); Monocytes Percent Auto 4.8 % (2.6-8.5); Neutrophils Percent Auto 79.3 % (45.5-73.1); Platelet Count Result 117 k/mm3 (150-375); Red Blood Count 3.72 M/mm3 (4.2-5.4); Red Cell Distribution Width 14.3 % (11.5-14.5); White Blood Count 3.7 K/mm3 (4.5-10.0)
[2024-09-16 07:20] LABS: Alanine Aminotransferase 19 U/L (6-35); Albumin Level 3.3 g/dL (3.5-5.1); Alkaline Phosphatase 133 U/L (38-126); Anion Gap 8 mmol/L (4-12); Aspartate Amino Transferase 25 U/L (14-36); Bilirubin,Total 0.7 mg/dL (0.2-1.3); Blood Urea Nitrogen 24 mg/dL (7-17); Calcium 9.7 mg/dL (8.4-10.2); Carbon Dioxide 23 mmol/L (22-30); Chloride 114 mmol/L (98-107); Estimated CRCL calculation 35 ml/min; Estimated Glomerular Filt Rate 48; Glucose 168 mg/dL (65-110); Potassium 3.5 mmol/L (3.4-5.0); Sodium 145 mmol/L (137-145)
[2024-09-16 08:37] LABS: Glucose Point of Care 162 mg/dl (65-105)
[2024-09-16] MEDS: ENOXAPARIN 40 MG/0.4 ML SYRINGE SUB-Q (10:08)
[2024-09-16] MEDS: guaiFENesin 12 HR 600 MG TABCR 1200 MG PO (10:09)
[2024-09-16] MEDS: PANTOPRAZOLE SODIUM IV 40 MG VIAL IV PUSH (10:09)
[2024-09-16] MEDS: CEFEPIME 2 GM/NS 50 ML 2 GM/50 ML BAG IVPB (10:09)
[2024-09-16 12:14] LABS: Glucose Point of Care 161 mg/dl (65-105)
[2024-09-16] MEDS: amLODIPine BESYLATE 10 MG TABLET PO (12:33)
[2024-09-16] MEDS: CHOLECALCIFEROL 5,000 UNITS TABLET 5000 UNITS PO (12:34)
[2024-09-16] MEDS: SODIUM CHLORIDE 0.9% IV 1,000 ML 75 ML IV CONT (12:37)
[2024-09-16] MEDS: ATORVASTATIN 40 MG TABLET PO (12:40)
[2024-09-16] MEDS: ASPIRIN 81 MG CHEWABLE TABLET PO (12:40)
[2024-09-16] MEDS: AZITHROMYCIN 250 MG TABLET 500 MG PO (12:47)
--- NOTE | 2024-09-16 13:44 | P.DS_ITS ---
DS: Admitting Diagnosis Discharge Date 09/16/2024 Admitting Diagnosis Acute respiratory failure with hypoxia secondary to pneumonia/altered mental status/metabolic acidosis DS: Discharge Diagnosis Discharge Diagnosis (1) Acute respiratory failure with hypoxia: Code(s): J96.01 - Acute respiratory failure with hypoxia Status: Acute (2) Metabolic acidosis: Code(s): E87.20 - Acidosis, unspecified Status: Acute (3) Lactic acidosis: Code(s): E87.20 - Acidosis, unspecified Status: Acute (4) Altered mental status: Qualifiers: Altered mental status type: stupor Qualified Code(s): R40.1 - Stupor Code(s): R41.82 - Altered mental status, unspecified Status: Acute (5) Hospital-acquired pneumonia: Code(s): J18.9 - Pneumonia, unspecified organism; Y95 - Nosocomial condition Status: Acute (6) Thrombocytopenia: Code(s): D69.6 - Thrombocytopenia, unspecified Status: Acute (7) CHF (congestive heart failure): Code(s): I50.9 - Heart failure, unspecified Status: Acute (8) Dementia: Qualifiers: Dementia behavioral disturbance: without behavioral disturbance Dementia type: unspecified type Qualified Code(s): F03.90 - Unspecified dementia without behavioral disturbance Code(s): F03.90 - Unspecified dementia, unspecified severity, without behavioral disturbance, psychotic disturbance, mood disturbance, and anxiety Status: Chronic (9) Type 2 diabetes mellitus with hyperglycemia: Qualifiers: Diabetes mellitus intermediate accountant insulin use: with penitentiary use Qualified Code(s): E11.65 - Type 2 diabetes mellitus with hyperglycemia; Z79.4 - FCI (current) use of insulin Code(s): E11.65 - Type 2 diabetes mellitus with hyperglycemia Status: Chronic (10) Multiple sclerosis: Code(s): G35 - Multiple sclerosis Status: Chronic (11) Hypertension: Qualifiers: Hypertension type: unspecified Qualified Code(s): I10 - Essential (primary) hypertension Code(s): I10 - Essential (primary) hypertension Status: Chronic (12) Hyperlipidemia: Code(s): E78.5 - Hyperlipidemia, unspecified Status: Chronic DS: Summary Hospital Course Reason for hospitalization: Acute respiratory failure with hypoxia secondary to pneumonia/altered mental status/metabolic acidosis Hospital Course: Patient was a 84 year old patient with diabetic neuropathy, type 2 diabetes mellitus, multiple sclerosis, dementia, CHF, hypertension, hyperlipidemia who presented from [facility] to the hospital with shortness of breath/dyspnea. patient was received from [facility] nursing [facility] due to acute respiratory distress patient was found to be in acute respiratory failure with hypoxia and was admitted to IMU for further evaluation and treatment. patient was found to pneumonia versus pulmonary edema as well as metabolic acidosis initial ABG showing pH of 7.267, pCO2 37.6, PO2 67.8, bicarb 16.8 with a base excess of -9.4 and Lactic acid 4.6 and now is 7.5. CTA was performed which showed no pulmonary embolism, 5 mm pulmonary nodule appears benign and moderate stenosis of her right common iliac artery. patient was given 2400 mL of IV fluids in the emergency department and started on a bicarb infusion she was also started IV antibiotics azithromycin and cefepime, vancomycin had been discontinued with negative MRSA for pneumonia. Patient with confusion was reported by patient's son that she is usually alert and oriented x2 with intermittent confusion due to her underlying dementia which did resolve after treatment she was back to her baseline, however did order a MRI brain and brainstem which showed Normal aging brain with mild age-appropriate atrophy and moderate scattered mesenteric white matter T2 hyperintensity consistent with chronic small vessel ischemic disease. also ordered speech therapy and MBS to rule out any concern for dysphagia or aspiration pneumonia which showed O ropharyngeal dysphagia with laryngeal penetration without aspiration and she was transitioned to a pureed diet. patient did have quite a bit of secretions and was unable to clear own airway Mucomyst breathing treatments ordered and suctioned at bedside, continued with DuoNebs IV antibiotics blood cultures with no growth to date, patient was weaned back to room air. patient with overall improvement metabolic acidosis and lactic acidosis resolved. at time of discharge patient alert and oriented times 1-2 which is baseline remained afebrile and WBC normalized. patient did have leukopenia with thrombocytopenia which Oncology was consulted for initially leukopenia dropped to 1.9 but was recovering a which they recommended this was secondary to antibiotic and infection related with normal hemoglobin and normal B12. patient continued to have improvement and appeared close to baseline at time of discharge she appeared in no acute distress and she was discharged back to [facility]. Status at Discharge Functional status at discharge: wheelchair bound Time Spent with Patient Time attestation: Total time spent providing and/or coordinating discharge services: Time spent: Greater than 30 minutes Exam Narrative: General: In no acute distress, well nourished alert intermittently 1-2 tracking with eyes in response to stimuli Head: acute encephalopathy Cardiac: Normal S1 and S2. Respiratory: Lungs course bilaterally, Raspy weak cough, currently on 1L NC difficulty clearing secretions Gastrointestinal: soft, non-distended, non-tender, normoactive bowel sounds. : Zhang catheter in place draining clear yellow urine Extremities: Foot drop noted bilaterally, patient is wheelchair-bound Neuro: Alert to voice, oriented x1, somewhat interactive Psych: unable to assess fully due to mental status DS: Data Data Completed and Pending Labs on day of discharge: Labs from last 24 hours 09/16/24 09/16/24 09/16/24 12:11 08:22 06:47 WBC 3.7 L RBC 3.72 L Hgb 10.9 L Hct 34.3 L MCV 92.2 MCH 29.3 MCHC 31.8 L RDW 14.3 Plt Count 117 L MPV 10.4 Immature Gran % (Auto) 1.3 H Neut % (Auto) 79.3 H Lymph % (Auto) 14.0 L Ada % (Auto) 4.8 Eos % (Auto) 0.3 Baso % (Auto) 0.3 Lymph # (Auto) 0.52 L Ada # (Auto) 0.2 Eos # (Auto) 0.0 Baso # (Auto) 0.0 Abs Immat Gran (auto) 0.05 H Absolute Neuts (auto) 3.0 Absolute Nucleated RBC 0.000 Nucleated RBC % 0.0 Sodium 145 Potassium 3.5 Chloride 114 H Carbon Dioxide 23 Anion Gap 8 BUN 24 H Creatinine 1.10 H Estim Creat Clear Calc 35 Estimated GFR 48 L Glucose 168 H POC Capillary Glucose 161 H 162 H Calcium 9.7 Total Bilirubin 0.7 AST 25 ALT 19 Alkaline Phosphatase 133 H Total Protein 7.0 Albumin 3.3 L 09/16/24 09/16/24 09/15/24 06:24 00:07 18:02 WBC RBC Hgb Hct MCV MCH MCHC RDW Plt Count MPV Immature Gran % (Auto) Neut % (Auto) Lymph % (Auto) Ada % (Auto) Eos % (Auto) Baso % (Auto) Lymph # (Auto) Ada # (Auto) Eos # (Auto) Baso # (Auto) Abs Immat Gran (auto) Absolute Neuts (auto) Absolute Nucleated RBC Nucleated RBC % Sodium Potassium Chloride Carbon Dioxide Anion Gap BUN Creatinine Estim Creat Clear Calc Estimated GFR Glucose POC Capillary Glucose 174 H 192 H 151 H Calcium Total Bilirubin AST ALT Alkaline Phosphatase Total Protein Albumin Preliminary micro results at discharge 09/12/24 13:31 Blood Culture - Preliminary Blood 09/12/24 13:22 Blood Culture - Preliminary Blood Imaging Radiologist's impression: Radiology Results: ITS Impressions Head CT 09/12/24 18:11 IMPRESSION: 1. Stable moderate nonspecific cerebral white matter disease, which likely represents chronic small vessel ischemic disease. Chest/Abdomen/Pelvis CTA 09/12/24 18:16 IMPRESSION: 1. 5 mm pulmonary nodule, probably benign. Consider noncontrast low-dose chest CT in 6-12 months. 2. Moderate stenosis of right common iliac artery. Chest X-Ray 09/13/24 21:41 IMPRESSION: 1. Airspace opacities at the lung bases with worsening on the left, consistent with atelectasis versus pneumonia. Discharge Plan Discharge Attending physician on discharge: Vinnie Corbin Consulting providers: Christ Rodríguez Discharging Clinician: Dorothy Romero Anticipated Discharge Date/Time: 09/16/24 13:31 Patient Disposition: SNF Activity: as tolerated Diet: heart healthy, diabetic and other - see discharge instructions Discharge Instructions: You are being discharged after treatment for pneumonia and metabolic acidosis, I have prescribed oral antibiotics please take as instructed and complete even if feeling better. If able continue to use incentive spirometer since you are at high risk of reoccurrence of pneumonia I would like OT and ST to continue to see you at the assisted facility At this time it is recommended you continue on a Pureed diet with thickened liquids. How can you care for yourself at home? ? Keep track of any new symptoms or changes in your symptoms. ? Rest until you feel better. ? Be safe with medicines. Take your medicines exactly as prescribed. Call your d octor if you think you are having a problem with your medicine. ? Do not drive after taking a prescription pain medicine. ? Ensure to follow-up with primary care physician as indicated and provide upd ated medication list provided to you at discharge. When should you call for help? Call 911 anytime you think you may need emergency care. For example, call if: ? You passed out (lost consciousness). Call your doctor now or seek immediate medical care if: ? You have new symptoms like fever, difficulty breathing, Chest pain, vomiting, or rash. ? You have new or different pain. ? You are confused and are having trouble thinking clearly. ? Your symptoms are getting worse. Watch closely for changes in your health, and be sure to contact your doctor if: ? You do not get better as expected. Patient Instructions: Heart Failure (DC), Community Acquired Pneumonia (DC), Metabolic Acidosis (GEN), Encephalopathy (DC), Hypertension and Diabetes (DC), Type 2 Diabetes Management for Adults (DC) Patient Language: Azeri Stand Alone Forms: General Discharge Information, Jail Discharge Follow-up/Referrals: Hong Stoddard MD [Primary Care Provider] - 4 Weeks Discharge Medications: New amoxicillin-pot clavulanate 875-125 mg tablet 1 tablet PO Q12H Qty: 10 0RF amlodipine 10 mg Tablet 10 mg PO DAILY Qty: 2 0RF guaifenesin [Mucus Relief ER] 600 mg Tablet Extended Release 12hr 1,200 mg PO Q12HR Qty: 2 0RF Continued cyanocobalamin (vitamin B-12) 1,000 mcg/mL Syringe See Rx Instructions .ROUTE .COMPLEX Patient Comments: 44405 mcg injection Rx Instructions: of every month cranberry 450 mg Tablet 450 mg PO DAILY (DME) insulin syringe-needle U-100 [Monoject Insulin Safety Syring] 0.5 mL 29 gauge x 1/2 syringe MISCELLANEOUS cholecalciferol (vitamin D3) 125 mcg (5,000 unit) Tablet 125 mcg PO DAILY Aspir-81 81 mg PO DAILY atorvastatin 40 mg Tablet 40 mg PO DAILY donepezil 10 mg Tablet 10 mg PO DAILY lisinopril 10 mg Tablet 10 mg PO DAILY memantine [Namenda] 10 mg Tablet 10 mg PO BID cetirizine 10 mg Tablet 10 mg PO DAILY magnesium hydroxide [Milk of Magnesia] 400 mg/5 mL Suspension 30 ml PO DAILY PRN (Reason: Constipation) Saccharomyces boulardii 250 mg Capsule 250 mg PO BID GenTeal Tears Moderate (PF) 0.1-0.3 % Dropperette 2 drp EACH EYE TID Fiasp U-100 Insulin 100 unit/mL solution 1 sliding scale dose subcut BID magnesium oxide 400 mg magnesium Tablet 400 mg PO DAILY insulin glargine [Basaglar KwikPen U-100 Insulin] 100 unit/mL (3 mL) insulin pen 20 unit SUBCUT HS 30 Days Qty: 10 0RF pregabalin [Lyrica] 150 mg capsule 150 mg PO BID Qty: 60 5RF Discontinued amlodipine 10 mg Tablet 5 mg PO DAILY metoprolol tartrate 25 mg Tablet 25 mg PO BID Date of admission: 09/12/24 16:03 Primary Care Provider: Hong Stoddard Admitting Provider: Yudith Munoz Attending physician on admission: Dorothy Romero Condition: Stable Quality VTE Prophylaxis VTE prophylaxis: pharmacologic ordered -Patient's previous records reviewed on admission -ER notes reviewed in detail on admission -discussed all findings and current treatment plan with patient/Family/POA -Consultations reviewed for recommendations -Patient's disposition for safe discharge discussed with caser up Dictation performed by [employer] direct speech recognition software, therefore 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 Hospitalist MICHEL Heart Failure (Exclusion) Patient has history of Heart Transplant or Left Ventricular Assistive Device?: No IF YES, STOP HERE Heart Failure (Qualifier) Patient has current or prior documentation of LVEF less than or equal to 40%, or mod/servere depressed LVSF?: No IF NO, STOP HERE
[2024-09-16] MEDS: hydrALAZINE HCL 20 MG/ML VIAL IV PUSH (14:34)
[2024-09-16 15:02] LABS: SARS-CoV-2 RNA PCR Negative (Negative)
--- OUTSIDE RECORDS SUMMARY | 2024-09-21 01:13 | XMS_ITS | Encounter Summary ---
Author Organization [facility] Address [facility] [place] [place] [address] [place] [address] Care Team Providers Care Advanced Quality Engineer Name Role Phone Yolanda Dorsey DISC PAD PLATE FILLER Unavailable Chris Higgins MD Primary Care Provider [phone] Giovanna Buck DISC PAD PLATE FILLER Unavailable [phone] Jayesh Lara DO Unavailable Reason for Visit * Reason Comments Halfway routine Encounter Details Date Type Department Care Team (Late st Contact Info) Description 01/22/2021 1:00 PM CDT Halfway [facility] [address] [address] Yolanda Dorsey, DISC PAD PLATE FILLER [address] [id number] Halfway (routine) Social History Tobacco Use Types Packs/Day Years Used Date Smoking Tobacco: Unknown Smokeless Tobacco: Former Comments Unknown Sex and Gender Information Value Date Recorded Sex Assigned at Not on file Legal Sex Female 10:25 PM CDT Gender Identity Not on file Sexual Orientation Not on file documented as of this encounter Last Filed Vital Signs Vital Sign Reading Time Taken Comments Blood Pressure 126/70 01/22/2021 3:23 PM CDT Pulse 68 01/22/2021 3:23 PM CDT Temperature 36.9 ??C (98.4 ??F) 01/22/2021 3:23 PM CD T Respiratory Rate 20 01/22/2021 3:23 PM CDT Oxygen Saturation - - Inhaled Oxygen Concentration - - Weight - - Height - - Body Mass Index - - documented in this encounter Functional Status * RETIRED Are you deaf or do you have serious difficulty hearing Answer Date of Assessment Author Status No 07/29/2020 8:15 PM 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 Answer Date of Assessment Author Status No 07/29/2020 8:15 PM FENCE INSTALLER Activ e * Do you have serious difficulty walking or climbing stairs? Answer Date of Assessment Author Status Yes 07/29/2020 8:15 PM FENCE INSTALLER Nirali Lyons R N Active * Do you have difficulty dressing or bathing? Answer Date of Assessment Author Status Yes 07/29/2020 8:15 PM FENCE INSTALLER Nirali Lyons R N Active * Because of a physical, mental, or emotional condition, do you have difficulty doing errands alone such as visiting a doctor's office or shopping? Answer Date of Assessment Author Status Yes 07/29/2020 8:15 PM FENCE INSTALLER Nirali Lyons R N Active documented as of this encounter Mental Status * Because of a physical, mental, or emotional condition, do you have serious difficulty concentrating, remembering, or making decisions? Answer Entry Date Author Status Yes 07/29/2020 8:15 PM Nirali Jacome R N Active documented in this encounter Progress Notes * Yolanda Pryor NP - 01/22/2021 1:00 PM CDT Images from the original note were not included. Reason for Visit: Halfway (routine) History of Present Illness: Emelina Santoyo is an 80-year-old female who was seen today for a routine visit. She has multiple chronic medical issues that were reviewed. Patient is alert and oriented to self per her baseline. She is able to make needs known. She is able to respond to questions and follow commands. She denies any pain or concerns. She states she feels fine, has a good appetite and is sleeping well. She denies any sadness, depression or concerns regarding moving. Her current residence is closing and she'll be moving to a new facility in a few days. Staff has no acute concerns at this time. Alzheimer's: No behaviors. Stable. On namenda and donepezil. Type 2 diabetes: Follow A1C. Last done 09/14/20 - 7.8%. Improved. On glipizide and lyrica. MS: No complaints. Wheelchair bound. Daily prednisone. Hypertension: BP stable. BMP 08/14/20 reveals BUN 14, Cr 0.8, GFR 71. On amlodipine, lisinopril andmetoprolol. Vitamin D deficiency: Follow vitamin D level. Last done 03/02/20- WNL. On vitamin D supplements. Hyperlipidemia: Follow lipid panel. Last done 11/19/20 - triglycerides 377. On Atorvastatin and improved from 9 months ago. ROS: Review of Systems Constitutional: Negative for chills, fever and malaise/fatigue. HENT: Negative for hearing loss. Respiratory: Negative for cough and shortness of breath. Cardiovascular: Negative for chest pain. Gastrointestinal: Negative for abdominal pain, diarrhea and vomiting. Genitourinary: Negative for dysuria and frequency. Musculoskeletal: Negative for back pain and joint pain. Skin: Negative for itching and rash. Neurological: Positive for focal weakness and weakness. Negative for dizziness and seizures. Endo/Heme/Allergies: Negative for environmental allergies. Does not bruise/bleed easily. Psychiatric/Behavioral: Positive for memory loss. Negative for depression. The patient is not nervous/anxious and does not have insomnia. Medications: Current Outpatient Medications: ??? acetaminophen 325 MG tablet, Take 650 mg by mouth every 4 (four) hours as needed for Pain. , Disp: , Rfl: ??? amlodipine 10 MG tablet, Take 1 tablet by mouth daily., Disp: , Rfl: ??? artificial tears 83-15 % ophthalmic ointment, 3 (three) times a day., Disp: , Rfl: ??? aspirin 81 MG chewable tablet, Chew 1 tablet by mouth daily., Disp: , Rfl: ??? atorvastatin 40 MG tablet, Take 40 mg by mouth daily., Disp: , Rfl: ??? Cholecalciferol (VITAMIN D3) 250 MCG ([address]39 UT) Tab, Take 1 tablet by mouth daily., Disp: , Rfl: ??? cranberry 450 MG Tab tablet, Take 450 mg by mouth daily., Disp: , Rfl: ??? cyanocobalamin 1000 MCG/ML injection, Inject 1 mL into the muscle monthly. Give on 29th of month, Disp: , Rfl: ??? donepezil 10 MG Tab, Take 10 mg by mouth 2 (two) times daily., Disp: , Rfl: ??? fluconazole 150 MG tablet, Take 150 mg by mouth weekly. x6 months, Disp: , Rfl: ??? HYDROcodone-acetaminophen 5-325 MG tablet, Take 1 tablet by mouth every 4 (four) hours as needed. Indications: Acute Pain < 7 Day Supply, Disp: 15 tablet, Rfl: 0 ??? insulin aspart (NOVOLOG) 100 UNIT/ML injection (VIAL), Inject into the skin 3 (three) times daily before meals. <150= 0 units 151-200= 2 units 201-250= 4 units 251-300= 6 units 301-350= 8 units 351-400= 10 units >400= 12 units jena BERUMEN, Disp: , Rfl: ??? insulin glargine 100 UNIT/ML injection (VIAL), Inject 15 Units into the skin nightly at bedtime. , Disp: , Rfl: ??? lisinopril 10 MG tablet, Take 1 tablet (10 mg total) by mouth daily., Disp: 30 tablet, Rfl: 0 ??? loratadine 10 MG tablet, Take 1 tablet by mouth daily., Disp: , Rfl: ??? magnesium gluconate (MAG-G) tablet, Take 27 mg by mouth 2 (two) times daily. , Disp: , Rfl: ??? magnesium hydroxide 400 MG/5ML suspension, Take 30 mLs by mouth daily as needed for Constipation., Disp: , Rfl: ??? MEMANTINE 10 MG tablet, TAKE 1 TABLET BY MOUTH TWICE A DAY, Disp: 60 tablet, Rfl: 11 ??? metoprolol tartrate 25 MG tablet, Take 25 mg by mouth 2 (two) times daily., Disp: , Rfl: ??? Multiple Vitamin (THERA-MILL) Tab, Take 1 tablet by mouth daily., Disp: , Rfl: ??? predniSONE 5 mg tablet, Take 5 mg by mouth as needed. , Disp: , Rfl: ??? pregabalin 150 MG capsule, Take 1 capsule (150 mg total) by mouth 2 (two) times daily., Disp: 60 capsule, Rfl: 1 ??? saccharomyces boulardii (FLORASTOR) 250 MG capsule, Take 1 capsule by mouth 2 (two) times daily., Disp: , Rfl: Allergies Allergen Reactions ??? Metronidazole Unknown Past Medical History: Diagnosis Date ??? Cholecystitis, unspecified 02/09/2019 ??? Chronic indwelling Zhang catheter Filed Vitals: 01/22/21 1523 BP: 126/70 Pulse: 68 Resp: 20 Temp: 98.4 ??F (36.9 ??C) Physical Exam Constitutional: She appears well-developed and well-nourished. Cardiovascular: Normal rate, regular rhythm and normal heart sounds. Pulmonary/Chest: Effort normal and breath sounds normal. No respiratory distress. Abdominal: Soft. Bowel sounds are normal. She exhibits no distension. There is no abdominal tenderness. Neurological: She is alert. She is disoriented. Coordination and gait (wheelchair) abnormal. Skin: Skin is warm and dry. No erythema. Psychiatric: She has a normal mood and affect. Her speech is delayed. She is slowed and withdrawn. Cognition and memory are impaired. She expresses inappropriate judgment. She exhibits abnormal recent memory. She is inattentive. Diagnoses/Impression: 1. Late onset Alzheimer's disease without behavioral disturbance ([facility]/HCC) 2. Type 2 diabetes mellitus with diabetic polyneuropathy, without long-term current use of insulin ([facility]) 3. Mixed hyperlipidemia Recommendations and Plan: Continue current treatment plan. Staff to continue to monitor and report any changes. Follow up in 1-2 weeks with PCP or rounding provider after move. Yolanda Pryor NP documented in this encounter Plan of Treatment Not on file documented as of this encounter Goals Goal Patient Goal Type Associated Problems Recent Progress Patient-Stated? Author Establish Plan for Regular Lab Work General Marlys Berg RN documented as of this encounter Visit Diagnoses Diagnosis Late onset Alzheimer's disease without behavioral disturbance (CMS/HCC HHS/HCC)- Primary Type 2 diabetes mellitus with diabetic polyneuropathy, without long-term current use of insulin ([facility] HHS/HCC) Mixed hyperlipidemia documented in this encounter Care Teams Advanced Quality Engineer Relationship Specialty Start Date End Date Chris Higgins MD PCP - General HOSPITALIST 12/13/20 01/23/21 Yolanda Dorsey NP Nurse Practitioner Nurse Practitioner Family 02/24/20 01/23/21 Giovanna Buck NP Nurse Practitioner NURSE PRACTITIONER 12/13/20 01/23/21 Jayesh Lara DO Consulting Physician INTERNAL MEDICINE 12/13/20 1 documented as of this encounter
--- OUTSIDE RECORDS SUMMARY | 2024-09-21 01:13 | XMS_ITS | Encounter Summary ---
Author Organization [facility] Address [address] [place] [address] [place] [address] Care Team Providers Care Hand Silvering Supervisor Name Role Phone None, Provider Primary Care Provider Jorge bond Encounter Details Date Type Department Care Team (Latest Contact Info) Description 06/24/2022 Travel Social History Tobacco Use Types Packs/Day Years Used Date Smoking Tobacco: Every Day Cigarettes Smokeless Tobacco: Former Comments Unknown Sex and Gender Information Value Date Recorded Sex Assigned at Not on file Legal Sex Female 10:25 PM CDT Gender Identity Not on file Sexual Orientation Not on file COVID-19 Exposure Response Date Recorded In the last 10 days, have yo u been in contact with someone who was confirmed or suspected to have Coronavirus/COVID-19? Yes 06/24/2022 7:56 PM CDT documented as of this encounter Functional Status * Question Answer Date of Assessment Author Status Do you have serious difficulty walking or climbing stairs? Yes 06/24/2022 10:57 PM CDT Virginia Kendall RN Active * Question Answer Date of Assessment Author Status Do you have difficulty dressing or bathing? Yes 06/24/2022 10:57 PM CDT Virginia Kendall RN Active Because of a physical, mental, or emotional condition, do you have difficulty doing errands alone such as visiting a doctor's office or shopping? Yes 06/24/2022 10:57 PM Virginia Palacios RN A ctive * RETIRED Are you deaf or do you have serious difficulty hearing Answer Date of Assessment Author Status No 07/29/2020 8:15 PM FORK OPERATOR Activ e * RETIRED Are you blind or do you have serious difficulty seeing, even when wearing glasses? Answer Date of Assessment Author Status No 07/29/2020 8:15 PM FORK OPERATOR Activ e * Do you have serious difficulty walking or climbing stairs? Answer Date of Assessment Author Status Yes 07/29/2020 8:15 PM FORK OPERATOR Nirali Lyons R Shahab Active * Do you have difficulty dressing or bathing? Answer Date of Assessment Author Status Yes 07/29/2020 8:15 PM FORK OPERATOR Nirali Lyons R N Active * Because of a physical, mental, or emotional condition, do you have difficulty doing errands alone such as visiting a doctor's office or shopping? Answer Date of Assessment Author Status Yes 07/29/2020 8:15 PM FORK OPERATOR Nirali Lyons R Shahab Active documented as of this encounter Mental Status * Question Answer Entry Date Author Status Because of a physical, mental, or emotional condition, do you have serious difficulty concentrating, remembering, or making decisions? Yes 06/24/2022 10:57 PM Virginia Palacios RN Active * Because of a physical, mental, or emotional condition, do you have serious difficulty concentrating, remembering, or making decisions? Answer Entry Date Author Status Yes 07/29/2020 8:15 PM FORK OPERATOR Nirali Lyons R N Active documented in this encounter Plan of Treatment Not on file documented as of this encounter Goals Goal Patient Goal Type Associated Problems Recent Progress Patient-Stated? Author Establish Plan for Regular Lab Work General No Marlys Sam RN documented as of this encounter Visit Diagnoses Not on filedocumented in this encounter Care Teams Hand Silvering Supervisor Relationship Specialty Start Date End Date None, Provider, PCP - General 06/24/22 documented as of this encounter
--- OUTSIDE RECORDS SUMMARY | 2024-09-21 01:13 | XMS_ITS | Encounter Summary ---
Author Organization [facility] Address [facility] [facility] [place] [address] [place] [address] Care Team Providers Care Product Safety Officer Name Role Phone None, Provider MD Primary Care Provider Unavaila ble Reason for Visit * Reason Onset Date Comments Hospital Follow Up 07/10/2022 Encounter Details Date Type Department Care Team (Late st Contact Info) Description 07/10/[address] [facility] Med/Surg [id number] [place] [address] Sharron Malin, RN Hospital Follow Up Social History Tobacco Use Types Packs/Day Years [...] as of this encounter Functional Status * RETIRED Are you deaf or do you have serious difficulty hearing Answer Date of Assessment Author Status Yes 06/24/2022 10:57 PM CDT Acti ve * RETIRED Are you blind or do you have serious difficulty seeing, even when wearing glasses? Answer Date of Assessment Author Status No 06/24/2022 10:57 PM MELBA Acti ve * Do you have serious difficulty walking or climbing stairs? Answer Date of Assessment Author Status Yes 06/24/2022 10:57 PM Virginia Palacios RN Active * Do you have difficulty dressing or bathing? Answer Date of Assessment Author Status Yes 06/24/2022 10:57 PM Virginia Palacios RN Active * Because of a physical, mental, or emotional condition, do you have difficulty doing errands alone such as visiting a doctor's office or shopping? Answer Date of Assessment Author Status Yes 06/24/2022 10:57 PM Virginia Palacios RN Active documented as of this encounter Mental Status * Because of a physical, mental, or emotional condition, do you have serious difficulty concentrating, remembering, or making decisions? Answer Entry Date Author Status Yes 06/24/2022 10:57 PM Virginia Palacios RN Active documented in this encounter Plan of Treatment Not on file documented as of this encounter Goals Goal Patient Goal Type Associated Problems Recent Progress Patient-Stated? Author Establish Plan for Regular Lab Work General No Marlys Sam RN documented as of this encounter Visit Diagnoses Not on filedocumented in this encounter Care Teams Product Safety Officer Relationship Specialty Start Date End Date None, Provider, PCP - General 06/24/22 documented as of this encounter
--- OUTSIDE RECORDS SUMMARY | 2024-09-21 01:13 | XMS_ITS | Encounter Summary ---
Author Organization [facility] Address [address] [facility] [place] [address] [place] [address] Care Team Providers Care Intermediate Card Tender Name Role Phone None, Provider Primary Care Provider Unavaila ble Reason for Referral * Imaging (Urgent) - Closed Specialty Diagnoses / Procedures Referred By Contac t Referred To Contact RADIOLOGY Procedures [place] [address] Phone: tel: [phone] fax: Referral ID Status Reason Start Date Expiration Date Visits Re quested Visits Authorized [id number] Closed 06/25/2022 06/25/2023 1 1 Reason for Visit * Reason Comments Shortness Of Breath * Auth/Cert Specialty Diagnoses / Procedures Referred By Contac t Referred To Contact Diagnoses Acute respiratory failure with hypoxia (CMS/HCC HHS/HCC) COVID COVID Procedures [place] [address] Phone: tel: [phone] fax: Referral ID Status Reason Start Date Expiration Date Visits Re quested Visits Authorized [id number] 1 1 Encounter Details Date Type Department Care Team (Late st Contact Info) Description 06/24/2022 7:56 PM CDT - 06/25/2022 2:40 PM CDT Hospital Encounter [facility] Med/Surg [address] [place], [place] [id number] Hammad Byrne MD [address] [facility] [address] [place], [place] [address] Radha Laurent MD [address] [facility] [address] [place], [place] [id number] Collette Moreno APNP [address] [place] [address] [place] [address] [phone] (Work) Shortness Of Breath Discharge Disposition: Transfer to Acute Care Hospital Social History Tobacco Use Types Packs/Day Years [...] PM CDT documented as of this encounter Last Filed Vital Signs Vital Sign Reading Time Taken Comments Blood Pressure 144/55 06/25/2022 2:25 PM CDT Pulse 79 06/25/2022 2:25 PM CDT Temperature 36.9 ??C (98.4 ??F) 06/25/2022 12:15 PM C DT Respiratory Rate 18 06/25/2022 2:25 PM CDT Oxygen Saturation 99% 06/25/2022 2:25 PM CDT Inhaled Oxygen Concentration - - Weight 68.9 kg (152 lb) 06/24/2022 8:20 PM CDT Height 167.6 cm (5' 6 ) 06/24/2022 7:59 PM CDT Body Mass Index 24.53 06/24/2022 7:59 PM CDT documented in this encounter Functional Status * Question Answer Date of Assessment Author Status Do you have serious difficulty walking or climbing stairs? Yes 06/24/2022 10:57 PM CDT Virginia Kendall RN Active * Question Answer Date of Assessment Author Status Do you have difficulty dressing or bathing? Yes 06/24/2022 10:57 PM EMILYT Virginia Kendall RN Active Because of a [...] Assessment Author Status No 06/24/2022 10:57 PM CDT Acti ve * Do you have serious difficulty walking or climbing stairs? Answer Date of Assessment Author Status Yes 06/24/2022 10:57 PM Virginia Palacios RN Active * Do you have difficulty dressing or bathing? Answer Date of Assessment Author Status Yes 06/24/2022 10:57 PM CDT Virginia Kendall RN Active * Because of a physical, [...] Date Author Status Yes 06/24/2022 10:57 PM CDT Virginia Kendall RN Active documented in this encounter Medications at Time of Discharge albuterol sulfate HFA 108 (90 Base) MCG/ACT inhaler Inhale 2 puffs into the lungs every 4 (four) hours as needed for Shortness of breath. 1 g 06/25/2022 ampicillin-sulba ctam 3 g in sodium chloride 0.9 % SOLN 100 mL Inject 3 g into the vein every 12 (twelve) hours. 3 g 06/25/2022 artificial tears (LUBRIFRESH PM) 83-15 % ophthalmic ointment Place into both eyes as needed (dryness). 1 g 06/25/2022 cranberry 450 MG Tab tablet Take 450 mg by mouth daily. dexamethasone (DECADRON) 4 MG/ML injection Inject 1.5 mLs (6 mg total) into the vein daily. 1 mL 06/25/2022 dextrose (GLUTOSE) 40 % oral gel Take 37.5 g by mouth as needed for Low blood sugar. 37.5 g 06/25/2022 famotidine, PF, (PEPCID) 20 MG/2ML injection Inject 1 mL (10 mg total) into the vein daily. 20 mL 06/26/2022 heparin lock flush 10 UNIT/ML injection 3 mLs (30 Units total) by Intracatheter route daily. 1 mL 06/26/2022 remdesivir 100 mg in sodium chloride 0.9 % SOLN 270 mL Inject 100 mg into the vein daily. 100 mg 06/26/2022 acetaminophen (TYLENOL) 500 MG tablet Take 2 tablets (1,000 mg total) by mouth every 6 (six) hours as needed. 30 tablet 06/25/2022 2 guaiFENesin (ROBITUSSIN) 100 MG/5ML solution Take 5 mLs by mouth every 6 (six) hours as needed for Cough. 120 mL 06/25/2022 2 documented as of this encounter Progress Notes * Naz David RN - 06/25/2022 12:34 PM CDT RNCM spoke with patient family due to patient isolation status. Support: Family members. 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 Ambulation: Reports needing assistance prior to admission. DME products: Walker/Wheelchair. Medical Devices: None ADLs: Reports needing assistance prior to admission. Transport Home: EMS. Skin/Bladder/Bowel: No deficits reported. A/O: Answers questions with intent and clarity. Communication: No deficits noted or reported. Home Health: None Occupation: None Pharmacy: SNF Financial Concerns: None PCP/Insurance Plan: Medicare and Medicaid Discharge needs: RNCM will provide discharge planning as needed, and will re- evaluate based on recommendations and treatment course. 06/25/22 1233 Referral Data Referral Reason Discharge Planning Source of Information Family/Significant Other (Patient son) Patient Information Primary Caregiver Self Support System Immediate family Baseline ADL's Living Arrangements Alone Type of Residence snf ([facility]) Ambulation Assistance Yes Active DME Wheelchair Bathing/Grooming Assistance Yes Dressing Assistance Yes Anticipated DC Plan Living Arrangements Alone Support Systems Family members Type of Residence snf Assistance Needed No Patient expects to be discharged to: Senior Living * Sheeba Perez PharmD - 06/25/2022 11:19 AM CDT Remdesivir Use Criteria Pharmacist Assessment COVID positive Requiring supplemental O2 Positive test 2 days prior to admission Day 1 GFR 29 ALT 31 Total bili 0.6 Alk phos 87 PT/INR 37.3/3.3 (patient not on anticoagulation at this time) Pharmacist will continue to monitor labs daily. Sheeba Perez PharmD, BCPS * Safia Grossman, ELKE - 06/25/2022 8:49 AM CDT RT notified Collette MENJIVAR of ABG results. Patient was on 4.5L NC during time of ABG draw. * Virginia Kendall RN - 06/24/2022 11:44 PM CDT Problem: Airway Clearance - Ineffective Goal: Patent airway Outcome: Progressing Problem: Gas Exchange - Impaired Goal: Adequate oxygenation Outcome: Progressing documented in this encounter H&P Notes * OTTO Washington - 06/25/2022 8:28 AM CDT Images from the original note were not included. Hospitalist History and Physical Patient: Emelina Santoyo Date: 06/25/2022 female, 82-year-old Admit Date: 06/24/2022 Attending: OTTO Washington CHIEF COMPLAINT: COVID positive with increased lethargy and requiring O2 HISTORY OF PRESENT ILLNESS: Emelina Santoyo is a 82-year-old female with a past medical history significant for dementia, oropharyngeal dysphagia, MS, hypertension, HLD, who presented to the ED from [facility]. Patient was diagnosed with COVID-19 (per POA, son) 3 days ago and she was needing oxygen and had a change in mental status so she was brought to the ED for an evaluation. Patient was placed on 3 L nasal cannula yes terday, upon presentation to the ED she was lethargic. She was started on IV remdesivir and dexamethasone and was sent to the floor. Upon my arrival, patient was noted to be very encephalopathic, she was barely arousable with a sternal rub and nailbed pressure. She is on 4.5 L of oxygen via nasal cannula. She is not able to followany commands or answer any questions at any time due to her cognitive deficit. Also upon my arrival, her blood pressure started dropping and required fluid boluses. Please see below for further interv entions. REVIEW OF SYSTEMS: Unable to obtain review of systems due to patient's mental status. ALLERGY Allergies Allergen Reactions ??? Metronidazole Unknown MEDICATIONS Medications Prior to Admission Medication Sig Dispense Refill ??? acetaminophen 325 MG tablet Take 650 mg by mouth every 4 (four) hours as needed for Pain or Fever. ??? amlodipine 10 MG tablet Take 1 tablet by mouth daily. ??? artificial tears 83-15 % ophthalmic ointment 3 (three) times a day. ??? aspirin 81 MG chewable tablet Chew 1 tablet by mouth daily. ??? atorvastatin 40 MG tablet Take 40 mg by mouth nightly at bedtime. ??? Cholecalciferol (VITAMIN D3) 250 MCG (42330 UT) Tab Take 1 tablet by mouth daily. ??? cranberry 450 MG Tab tablet Take 450 mg by mouth daily. ??? docusate sodium (COLACE) 100 MG capsule Take 100 mg by mouth 2 (two) times daily. ??? donepezil 10 MG Tab Take 10 mg by mouth daily. ??? insulin aspart (NOVOLOG) 100 UNIT/ML injection (VIAL) Inject into the skin 2 (two) times daily with meals. <150= 0 units 151-200= 2 units 201-250= 4 units 251-300= 6 units 301-350= 8 units 351-400= 10 units >400= 12 units notify MD ??? lactobacillus (FLORANEX) tablet Take 1 tablet by mouth 2 (two) times a day. ??? lisinopril 10 MG tablet Take 1 tablet (10 mg total) by mouth daily. 30 tablet 0 ??? loratadine 10 MG tablet Take 1 tablet by mouth daily. ??? magnesium gluconate (MAGONATE) tablet Take 27 mg by mouth 2 (two) times daily. ??? MEMANTINE 10 MG tablet TAKE 1 TABLET BY MOUTH TWICE A DAY 60 tablet 11 ??? metoprolol tartrate 25 MG tablet Take 25 mg by mouth 2 (two) times daily. ??? nystatin (NYSTOP) powder Apply topically daily as needed (APPLY TO ABD FOLDS AND UNDER BREASTS). ??? pregabalin 150 MG capsule Take 1 capsule (150 mg total) by mouth 2 (two) times daily. 60 capsule 1 ??? Skin Protectants, Misc. (REMEDY PHYTOPLEX HYDRAGUARD EX) Apply topically 2 (two) times a day. APPLY TO BILATERAL GLUTEAL FOLDS AND SACRUM ??? Skin Protectants, Misc. (REMEDY PHYTOPLEX HYDRAGUARD) Cream Apply topically as needed (APPLY TOBILATERAL GLUTEAL FOLDS AND SACRUM). ??? vitamin C (ASCORBIC ACID) 500 MG tablet Take 1 tablet by mouth daily. ??? cyanocobalamin 1000 MCG/ML injection Inject 1 mL into the muscle monthly. Give on of month ??? insulin glargine 100 UNIT/ML injection (VIAL) Inject 15 Units into the skin nightly at bedtime. ??? magnesium hydroxide 400 MG/5ML suspension Take 30 mLs by mouth daily as needed for Constipation. ??? Multiple Vitamin (THERA-MILL) Tab Take 1 tablet by mouth daily. No current facility-administered medications on file prior to encounter. Current Outpatient Medications on File Prior to Encounter Medication Sig Dispense Refill ??? acetaminophen 325 MG tablet Take 650 mg by mouth every 4 (four) hours as needed for Pain or Fever. ??? amlodipine 10 MG tablet Take 1 tablet by mouth daily. ??? artificial tears 83-15 % ophthalmic ointment 3 (three) times a day. ??? aspirin 81 MG chewable tablet Chew 1 tablet by mouth daily. ??? atorvastatin 40 MG tablet Take 40 mg by mouth nightly at bedtime. ??? Cholecalciferol (VITAMIN D3) 250 MCG (39259 UT) Tab Take 1 tablet by mouth daily. ??? cranberry 450 MG Tab tablet Take 450 mg by mouth daily. ??? docusate sodium (COLACE) 100 MG capsule Take 100 mg by mouth 2 (two) times daily. ??? donepezil 10 MG Tab Take 10 mg by mouth daily. ??? insulin aspart (NOVOLOG) 100 UNIT/ML injection (VIAL) Inject into the skin 2 (two) times daily with meals. <150= 0 units 151-200= 2 units 201-250= 4 units 251-300= 6 units 301-350= 8 units 351-400= 10 units >400= 12 units notify MD ??? lactobacillus (FLORANEX) tablet Take 1 tablet by mouth 2 (two) times a day. ??? lisinopril 10 MG tablet Take 1 tablet (10 mg total) by mouth daily. 30 tablet 0 ??? loratadine 10 MG tablet Take 1 tablet by mouth daily. ??? magnesium gluconate (MAGONATE) tablet Take 27 mg by mouth 2 (two) times daily. ??? MEMANTINE 10 MG tablet TAKE 1 TABLET BY MOUTH TWICE A DAY 60 tablet 11 ??? metoprolol tartrate 25 MG tablet Take 25 mg by mouth 2 (two) times daily. ??? nystatin (NYSTOP) powder Apply topically daily as needed (APPLY TO ABD FOLDS AND UNDER BREASTS). ??? pregabalin 150 MG capsule Take 1 capsule (150 mg total) by mouth 2 (two) times daily. 60 capsule 1 ??? Skin Protectants, Misc. (REMEDY PHYTOPLEX HYDRAGUARD EX) Apply topically 2 (two) times a day. APPLY TO BILATERAL GLUTEAL FOLDS AND SACRUM ??? Skin Protectants, Misc. (REMEDY PHYTOPLEX HYDRAGUARD) Cream Apply topically as needed (APPLY TOBILATERAL GLUTEAL FOLDS AND SACRUM). ??? vitamin C (ASCORBIC ACID) 500 MG tablet Take 1 tablet by mouth daily. ??? cyanocobalamin 1000 MCG/ML injection Inject 1 mL into the muscle monthly. Give on ??? insulin glargine 100 UNIT/ML injection (VIAL) Inject 15 Units into the skin nightly at bedtime. ??? magnesium hydroxide 400 MG/5ML suspension Take 30 mLs by mouth daily as needed for Constipation. ??? Multiple Vitamin (THERA-MILL) Tab Take 1 tablet by mouth daily. PAST MEDICAL HISTORY Past Medical History: Diagnosis Date ??? Alzheimer's disease, unspecified (CODE) ([facility]/HCC) ??? Cholecystitis, unspecified 02/09/2019 ??? Chronic indwelling Zhang catheter No past surgical history on file. SOCIAL HISTORY Social History Socioeconomic History ??? Marital status: Single Tobacco Use ??? Smoking status: Current Every Day Smoker Types: Cigarettes ??? Smokeless tobacco: Former User Social History Narrative LIVES AT [facility] FAMILY HISTORY Family History Family history unknown: Yes PHYSICAL EXAMINATION: Vital 24 Hour Range Most Recent Value Temperature Temp Min: 97.5 ??F (36.4 ??C) Max: 99.4 ??F (37.4 ??C) 98.5 ??F (36.9 ??C) Pulse Pulse Min: 78 Max: 107 85 Respiratory Resp Min: 18 Max: 22 18 Blood Pressure BP Min: 89/39 Max: 126/67 89/39 Pulse Oximetry SpO2 Min: 90 % Max: 97 % 96 % O2 O2 Flow Rate (L/min) Av L/min Min: 3 L/min Min taken time: 06/24/222038 Max: 5 L/min Max taken time: 06/25/22714 Vital Most Recent Value First Value Weight 68.9 kg (152 lb) Weight: 68.9 kg (152 lb) Height 5' 6 (167.6 cm) Height: 5' 6 (167.6 cm) BMI 24.55 N/A Intake/Output last 3 shifts: No intake/output data recorded. Physical Exam: -GENERAL: Ill-appearing, encephalopathic, no acute distress, but blood pressure is low, SBP 70s to 80s -HEAD: Normocephalic, Atraumatic -EYES: PERRLA, unable to assess EOM due to mental status -ENT: Neck supple, Mucous membranes moist -LUNGS: Coarse, rhonchi, O2 4.5 L, no wheezing or stridor -CVS: Regular rate and rhythm -ABDOMEN: Soft, Non tender, Non distended, bowel sounds hypoactive -EXT: No edema -NEURO: Encephalopathic, not following/answering questions. Patient has MS at baseline and is wheelchair-bound at the [facility] -SKIN: No significant rashes LABS Recent Labs Lab 06/24/22202906/25/22 0521 NA 141 142 K 4.3 4.4 CL 104 107 CO2 24.8 22.5 AGAP 12.2 12.5 BUN 24* 29* CR 1.36* 1.75* BUNCREATININ 17.6 16.6 GLU 204* 197* CA 9.4 8.8 Recent Labs Lab 06/24/22202906/25/22 0521 WBC 6.7 5.3 RBC 5.14* 4.18* HGB 15.2 12.4 HCT 45.5* 37.2 MCV 88.5 89.0 MCH 29.6 29.7 MCHC 33.4 33.3 PLT 111* 103* RDW 14.7 14.9 MPV 11.3 10.3 Recent Labs Lab 06/24/22202906/25/22 0521 AST 28 20 ALT 43 31 No results for input(s): INR, PTT in the last 168 hours. Invalid input(s): ABG arterial blood gases Recent Labs Lab 06/24/22 2030 TROP 11 No results for input(s): PH, PCO2, PO2, [id number], BICARBWB, BASEDEFICIT, BASEEXCESS in the zium416 hours. IMAGING & OTHER STUDIES CTA CHEST 06/25/2022 IMPRESSION: Opacification of posterior aspect of inferior lower lobe bilaterally with air bronchogram formation identified. This is felt to likely represent combination of active infiltrate/aspiration and atelectasis. There are some retained secretions identified within the trachea. Small amount offluid in the esophagus with air-fluid level in upper thoracic esophagus; this may be on basis of GEreflux disease. No pulmonary emboli identified in main pulmonary arteries or major pulmonary arterybranches. Mild motion artifact. Atherosclerotic calcification of thoracic aorta and coronary arteries with mild coronary artery calcification. No thoracic aortic aneurysm or dissection identified. Sagittal and coronal reconstruction performed along with coronal oblique reconstruction. Preliminary teleradiology report provided. No pulmonary mass lesions, pneumothorax, or pleural fluid collections.No apparent axillary, mediastinal, or hilar lymphadenopathy with some subcentimeter short axis reactive size mediastinal lymph nodes noted. Pneumobilia noted, presumably on basis of prior biliary duct instrumentation. Cholecystectomy. No lesions noted in visualized upper abdomen. Mild degenerative and hypertrophic change in thoracic spine and visualized lower cervical spine. Ordered By: JM DIAZ Interpreted By: Blaise Louise, 06/25/2022 8:10 AM XR CHEST PORTABLE 06/25/2022 IMPRESSION: No active chest disease identified with chest appearance similar to 07/29/2020. Preliminary teleradiology report provided. Heart size and pulmonary vascularity are felt to be within normal limits. Atherosclerotic aorta. Patient is listing to the right. No pulmonary consolidation, pneumothorax, or pleural fluid collections identified. Chin flexed on chest partially obscuring apices. Partial visualization of left convex thoracolumbar scoliosis. Degenerative and hypertrophic change in thoracic spine. Osseous demineralization felt to be present. Ordered By: HAMMAD BYRNE Interpreted By: Blaise Louise, 06/25/2022 8:05 AM ASSESSMENT & PLAN Septic Shock Admit to [facility] Upon my assessment pt BP was 79/33, 1L ns given x 2 given w/o positive effect on BP Lactate 2.7 Blood cultures pending Urine cxr pending; UA[+] IV unasyn started for suspected Aspiration per CTA chest done in the ED IVF resuscitation per sepsis protocol initiated Levophed gtt initiated to keep MAP>60 PICC line ordered as pt only had PIV Called several transfer centers and bed was found at [facility]- accepted by Dr. Ferraro COVID-19 Pneumonia with suspected aspiration Symptom onset Unknown SARS-CoV-2 testing positive on 06/23/22 IV steroids given in ED. Continue. Monitor for toxicity Start remdesivir. Monitor CMP Supportive care Became more lethargic, then needed O2 at 3L NC Transferred to [facility] per family request, they did not want patient at [facility] Stated on IV ABX per CTA findings, [facility] And elevated lactate N.p.o. status as of now Acute respiratory failure with hypoxia Patient requiring 3 L nasal cannula initially Upon presentation she was on 4.5 L Per POA when she had COVID in September 2021 she did require BiPAP Monitor to keep O2 sats greater than 92% UTI, suspected UA positive, culture pending Continue IV ABX Zhang catheter placed for strict I&O Metabolic Acidosis pH 7.35 PCO2 39.1 PO2 63 bicarb 20.9 Could consider starting a bicarb drip when arrives to a new acute care facility Elelvated D-Dimer Noted to be 3390 CTA chest negative for PE TON vs CKD Creatinine 1.36 POA Next was 1.75, and definitive of TON Not sure of previous creatinine IVF resucitation Acute encephalopathy in the setting of Dementia Upon my initial exam, patient was very hard to arouse, tried sternal rubbing, nailbed pressure without any reaction After pressors and fluids were given and started, patient was more alert, did answer to name being called, unable to follow any commands But per conversation with the POA, patient was more at her baseline after pressors and fluids DM2 w/ polyneuropathy SSI for n.p.o. Oral meds held Oropharyngeal Dysphasia Per discussion with the POA, she is on a pur??ed/honey thick diet at baseline at the [facility] She does feed herself sometimes but sometimes she does need assistance with feeding Will not attempt any thing by mouth until patient's cognition improves and a swallow eval is done Multiple Sclerosis Patient is primarily wheelchair-bound and has been for years HTN All home meds on hold HLD Statin, on hold VTE ppx: heparin subq Code status: DNR Surrogate decision maker/POA: Hari Santoyo ACP: I spent a total of 35 minutes speaking with the POA and POA's about the patient's CODE STATUS. When patient initially admitted to the hospital she was a full code. After several discussionswith the POA about her current state of health, what could happen if she were to sustain a cardiac arrest event and would need mechanical ventilation, I explained the difference between a full and DNR. After reassuring the POA that changing her to a DNR would not mean that we would stop all interventions to sustain her life he agreed to make her a DNR. Pastoral care was consulted and paperwork filled out and signed. Critical care Time: I spent a total of 15 minutes providing critical care time for interpreting patient's ABG, starting vasopressors for blood pressure support. Patient was then transferred to a higher acuity hospital. Discharge summary/brief discharge Discharge date:06/25/2022 Hospital diagnosis: Septic shock secondary to COVID-19 and aspiration pneumonia Findings require further work-up: Follow blood cultures, trend lactic acid, continue vasopressor support to maintain MAP greater than 60 Consults: N/A Disposition: Patient will be transferred to a higher level of care where she will need an ICU bed. She was accepted by Dr. Ferraro at [facility] in [facility]. New discharge medications: Medication List START taking these medications Morning Afternoon Evening Bedtime As Needed albuterol sulfate HFA 108 (90 Base) MCG/ACT inhaler Inhale 2 puffs into the lungs every 4 (four) hours as needed for Shortness of breath. ampicillin-sulbactam 3 g in sodium chloride 0.9 % SOLN 100 mL Inject 3 g into the vein every 12 (twelve) hours. Last time this was given: 3,000 mg on June 25, 2022 9:21 AM dexamethasone 4 MG/ML injection Commonly known as: DECADRON Inject 1.5 mLs (6 mg total) into the vein daily. Last time this was given: 6 mg on June 24, 2022 11:14 PM dextrose 40 % oral gel Commonly known as: GLUTOSE Take 37.5 g by mouth as needed for Low blood sugar. famotidine (PF) 20 MG/2ML injection Commonly known as: PEPCID Start taking on: June 26, 2022 Inject 1 mL (10 mg total) into the vein daily. Last time this was given: 20 mg on June 25, 2022 9:22 AM guaiFENesin 100 MG/5ML solution Commonly known as: ROBITUSSIN Take 5 mLs by mouth every 6 (six) hours as needed for Cough. heparin lock flush 10 UNIT/ML injection Start taking on: June 26, 2022 3 mLs (30 Units total) by Intracatheter route daily. Last time this was given: Ask your nurse or doctor remdesivir 100 mg in sodium chloride 0.9 % SOLN 270 mL Start taking on: June 26, 2022 Inject 100 mg into the vein daily. Last time this was given: 200 mg on June 25, 2022 9:21 AM CHANGE how you take these medications Morning Afternoon Evening Bedtime As Needed acetaminophen 500 MG tablet Commonly known as: TYLENOL Take 2 tablets (1,000 mg total) by mouth every 6 (six) hours as needed. What changed: ?? medication strength ?? how much to take ?? when to take this ?? reasons to take this artificial tears 83-15 % ophthalmic ointment Place into both eyes as needed (dryness). What changed: ?? how to take this ?? when to take this ?? reasons to take this CONTINUE taking these medications Morning Afternoon Evening Bedtime As Needed cranberry 450 MG Tabs tablet Take 450 mg by mouth daily. STOP taking these medications amLODIPine 10 MG tablet Commonly known as: NORVASC aspirin 81 MG chewable tablet atorvastatin 40 MG tablet Commonly known as: LIPITOR cyanocobalamin 1000 MCG/ML injection Commonly known as: B-12 docusate sodium 100 MG capsule Commonly known as: COLACE donepezil 10 MG Tabs Commonly known as: ARICEPT insulin aspart 100 UNIT/ML injection (VIAL) Commonly known as: NOVOLOG insulin glargine 100 UNIT/ML injection (VIAL) Commonly known as: LANTUS lactobacillus tablet lisinopril 10 MG tablet Commonly known as: PRINIVIL loratadine 10 MG tablet Commonly known as: CLARITIN magnesium gluconate tablet Commonly known as: MAGONATE magnesium hydroxide 400 MG/5ML suspension Commonly known as: MILK OF MAGNESIA memantine 10 MG tablet Commonly known as: NAMENDA metoprolol tartrate 25 MG tablet Commonly known as: LOPRESSOR Nystop powder Generic drug: nystatin pregabalin 150 MG capsule Commonly known as: LYRICA Remedy Phytoplex Hydraguard Crea REMEDY PHYTOPLEX HYDRAGUARD EX Thera-mill Tabs vitamin C 500 MG tablet Commonly known as: ASCORBIC ACID Vitamin D3 250 MCG (44004 UT) Tabs Admission condition: poor Discharge condition:critical Time spent on discharge: 45 minutes was spent on this DC Portions of this note were dictated with [employer] medical dictation software. Misspellings, punctuation errors, omitted words or dictation variances may occur. [place] Cosigned by Radha Laurent MD at 06/25/2022 11:05 PM CDT Associated attestation - Radha Laurent MD - 06/25/2022 11:05 PM CDT I saw the patient on the day of discharge and agree with the discharge plans and disposition. 82yr female hx MS approximately 40 yrs.HTN, and dementia. Patient developed hypoxemia and AMS She brought to ED and dx with SARS Covid 2 PNA. Patient was lethargic and developed shock with BP's in 70's. Bolused multiple times and required IV levophed. 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 documented in this encounter Procedure Notes * Funmilayo Joshi RN - 06/25/2022 1:31 PM CDT Consult for PICC line placement. Consent for procedure signed and verified. Pt was draped in sterile fashion. The right basilic vein was visualized using ultrasound. 1 ml lidocaine given at insertionsite. A 21 gauge needle was used to cannulate and visualized in the right basilic vein. Wire was advanced without resistance or difficulty. The introducer was advanced without complications. PICC line was advanced without difficulty. Tip was confirmed by 3CG. No Xray needed. Report to RN. See flowsheet for details of measurements. Sterile technique maintained throughout procedure. Funmilayo Joshi RN documented in this encounter Nursing Notes * Karla Alexandre RN - 06/25/2022 2:42 PM CDT Patient picked up for transfer by [facility]. Called Bonnie at [facility] and patient's son Osmar to notify of EMS pickup * Karla Alexandre RN - 06/25/2022 2:41 PM CDT Transfer report called to Bonnie at [facility] ICU. All questions answered * Virginia Kendall RN - 06/25/2022 1:59 AM CDT Patient is not alert or oriented due to severe dementia. Patients POA (Ruthann Macedo) stated that she does not want her mother taking Remdesivir. Hellen agreed to possibly consenting for medication later today. This RN moved the time for Remdesivir to 0900, per Dr. Diaz's recommendation. Will follow up with Joelle BERUMEN and RN. documented in this encounter ED Notes * Hammad Byrne MD - 06/24/2022 10:08 PM CDT ED NOTE Chief Complaint Chief Complaint Patient presents with ??? Shortness Of Breath History of Present Illness 82y F from care facility with shortness of breath. Per report pt tested positive for COVID 2 days ago. Noted to be more lethargic today and had to be placed on 3L oxygen for hypoxia. Pt unable to provide any history on arrival. H/o MS and dementia. Medical History ALLERGIES: Allergies Allergen Reactions ??? Metronidazole Unknown MEDICATIONS: Prior to Admission medications Medication Sig Start Date End Date Taking? Authorizing Provider acetaminophen 325 MG tablet Take 650 mg by mouth every 4 (four) hours as needed for Pain. 04/04/19 Yes [facility] amlodipine 10 MG tablet Take 1 tablet by mouth daily. 07/30/15 Yes [facility] artificial tears 83-15 % ophthalmic ointment 3 (three) times a day. Yes [facility] aspirin 81 MG chewable tablet Chew 1 tablet by mouth daily. 12/29/17 Yes [facility] atorvastatin 40 MG tablet Take 40 mg by mouth daily. Yes [facility] Cholecalciferol (VITAMIN D3) 250 MCG (54070 UT) Tab Take 1 tablet by mouth daily. Yes [facility] cranberry 450 MG Tab tablet Take 450 mg by mouth daily. Yes [facility] donepezil 10 MG Tab Take 10 mg by mouth 2 (two) times daily. Yes [facility] insulin aspart (NOVOLOG) 100 UNIT/ML injection (VIAL) Inject into the skin 3 (three) times daily before meals. <150= 0 units 151-200= 2 units 201-250= 4 units 251-300= 6 units 301-350= 8 units 351-400= 10 units >400= 12 units notify Yes [facility] insulin glargine 100 UNIT/ML injection (VIAL) Inject 15 Units into the skin nightly at bedtime. Yes[facility] lisinopril 10 MG tablet Take 1 tablet (10 mg total) by mouth daily. 11/03/18 Yes Frieda Wasserman MD loratadine 10 MG tablet Take 1 tablet by mouth daily. 10/06/17 Yes [facility] magnesium gluconate (MAGONATE) tablet Take 27 mg by mouth 2 (two) times daily. Yes [facility] metoprolol tartrate 25 MG tablet Take 25 mg by mouth 2 (two) times daily. Yes [facility] pregabalin 150 MG capsule Take 1 capsule (150 mg total) by mouth 2 (two) times daily. 09/17/20 Yes Yolanda Pryor NP cyanocobalamin 1000 MCG/ML injection Inject 1 mL into the muscle monthly. Give on of [facility] HYDROcodone-acetaminophen 5-325 MG tablet Take 1 tablet by mouth every 4 (four) hours as needed. Indications: Acute Pain < 7 Day Supply 08/01/20 Jose Burrows MD magnesium hydroxide 400 MG/5ML suspension Take 30 mLs by mouth daily as needed for Constipation. [facility] MEMANTINE 10 MG tablet TAKE 1 TABLET BY MOUTH TWICE A DAY 12/10/20 Yolanda Pryor NP Multiple Vitamin (THERA-MILL) Tab Take 1 tablet by mouth daily. 10/06/17 [facility] predniSONE 5 mg tablet Take 5 mg by mouth as needed. 04/26/19 [facility] saccharomyces boulardii (FLORASTOR) 250 MG capsule Take 1 capsule by mouth 2 (two) times daily. [facility] PAST MEDICAL HISTORY: Past Medical History: Diagnosis Date ??? Alzheimer's disease, unspecified (CODE) (CMS/HCC) ??? Cholecystitis, unspecified 02/09/2019 ??? Chronic indwelling Zhang catheter PAST SURGICAL HISTORY: No past surgical history on file. FAMILY HISTORY: Family History Family history unknown: Yes SOCIAL HISTORY: Social History Tobacco Use ??? Smoking status: Unknown If Ever Smoked ??? Smokeless tobacco: Former User Review of Systems Review of Systems Unable to perform ROS: Mental status change Physical Exam Filed Vitals: 06/24/22 2030 06/24/22 2100 06/24/22 2130 06/24/22 2140 BP: 126/67 123/61 116/67 Pulse: 107 107 106 107 Resp: Temp: 97.5 ??F (36.4 ??C) TempSrc: Axillary SpO2: 93% 93% 90% 94% Weight: Height: Physical Exam Vitals and nursing note reviewed. Constitutional: Appearance: She is ill-appearing. HENT: Head: Normocephalic. Nose: Congestion present. Mouth/Throat: Mouth: Mucous membranes are moist. Eyes: Conjunctiva/sclera: Conjunctivae normal. Cardiovascular: Rate and Rhythm: Tachycardia present. Heart sounds: Normal heart sounds. Pulmonary: Effort: Pulmonary effort is normal. Breath sounds: Rales present. Abdominal: General: There is no distension. Palpations: Abdomen is soft. Tenderness: There is no abdominal tenderness. Musculoskeletal: Cervical back: Neck supple. Right lower leg: No edema. Left lower leg: No edema. Skin: General: Skin is warm and dry. Neurological: Comments: Lethargic, Currently not regarding or answering questions Psychiatric: Comments: Unable to assess Diagnostic Studies / Procedures ELECTROCARDIOGRAMS: No results found for this visit on 06/24/22. LABORATORY STUDIES: Results for orders placed or performed during the hospital encounter of 06/24/22 CBC W/DIFF AUTOMATED Result Value Ref Range WBC 6.7 4.4 - 11.0 x10'3/uL RBC 5.14 (H) 4.50 - 5.10 x10'6/uL HGB 15.2 12.3 - 15.3 G/DL HCT 45.5 (H) 35.9 - 44.6 % MCV 88.5 80.0 - 96.0 FL MCH 29.6 25.3 - 30.9 PG MCHC 33.4 31.0 - 34.1 G/DL RDW 14.7 12.4 - 15.1 % PLT 111 (L) 151 - 353 x10'3/uL MPV 11.3 9.6 - 12.0 FL SEG NEUTROPHILS 87 (H) 42 - 72 % LYMPHOCYTES 9 (L) 15.8 - 45.0 % MONOCYTES 4 (L) 5.7 - 12.5 % ABS. NEUTROPHILS 5.83 1.40 - 6.00 x10'3/uL ABS. LYMPHOCYTES 0.60 (L) 0.80 - 4.70 x10'3/uL PLT MORPH. NORMAL RBC MORPHOLOGY NORMAL WBC MORPHOLOGY NORMAL COMPREHENSIVE METABOLIC PANEL Result Value Ref Range GLUCOSE 204 (H) 70 - 99 MG/DL BUN 24 (H) 7 - 18 MG/DL CREATININE S/P/B 1.36 (H) 0.55 - 1.02 MG/DL SODIUM 141 136 - 145 MMOL/L POTASSIUM 4.3 3.5 - 5.1 MMOL/L CHLORIDE S/P/B 104 100 - 108 MMOL/L CO2 24.8 21 - 32 MMOL/L CALCIUM 9.4 8.5 - 10.1 MG/DL BILIRUBIN TOTAL S/P/B 0.7 0.2 - 1.2 MG/DL TOTAL PROTEIN S/P/B 7.7 6.4 - 8.2 G/DL ALBUMIN S/P/B 3.7 3.4 - 5.0 G/DL AST 28 15 - 37 U/L ALT 43 14 - 55 U/L ALKALINE PHOSPHATASE S/P/B 126 50 - 136 U/L ANION GAP 12.2 5 - 15 MMOL/L BUN CREATININE RATIO 17.6 6 - 26 A/G RATIO 0.9 (L) 1.0 - 2.0 RATIO GFR ESTIMATE 39 (L) >90 ML/MIN/1.73 M2 TROPONIN, QUANT Result Value Ref Range TROPONIN I HIGH SENSITIVITY 11 <51 ng/L IMAGING STUDIES XR CHEST PORTABLE (Results Pending) ED Course / Medical Decision Making Plan admission, hypoxia, COVID Medications heparin (porcine) injection 5,000 Units (has no administration in time range) ondansetron (ZOFRAN-ODT) disintegrating tablet 4 mg (has no administration in time range) Or ondansetron (ZOFRAN) injection 4 mg (has no administration in time range) acetaminophen (TYLENOL) tablet 1,000 mg (has no administration in time range) Or acetaminophen (TYLENOL) suppository 650 mg (has no administration in time range) Or acetaminophen (TYLENOL) 325 MG/10.15ML solution 1,000 mg (has no administration in time range) sodium chloride (PF) 0.9 % flush 3-10 mL (has no administration in time range) remdesivir (VEKLURY) 200 mg in sodium chloride 0.9 % 290 mL IV (has no administration in time range) Followed by remdesivir (VEKLURY) 100 mg in sodium chloride 0.9 % 270 mL IV (has no administration in time range) albuterol sulfate HFA 108 (90 Base) MCG/ACT inhaler 2 puff (has no administration in time range) guaiFENesin (ROBITUSSIN) 100 MG/5ML solution 5 mL (has no administration in time range) dexamethasone (DECADRON) injection 6 mg (has no administration in time range) Or dexamethasone (DECADRON) tablet 6 mg (has no administration in time range) famotidine (PF) (PEPCID) injection 20 mg (has no administration in time range) Or famotidine (PEPCID) tablet 20 mg (has no administration in time range) dextrose (GLUTOSE) 40 % oral gel 37.5-75 g (has no administration in time range) dextrose 10 % bolus infusion 125-250 mL (has no administration in time range) glucagon injection 1 mg (has no administration in time range) insulin lispro (HUMALOG) injection 0-14 Units (has no administration in time range) And insulin lispro (HUMALOG) injection 0-7 Units (has no administration in time range) Clinical Impression COVID (Primary) Acute respiratory failure with hypoxia (CMS/HCC) Current Discharge Medication List Disposition: Admit Follow-Up: No follow-up provider specified. HAMMAD BYRNE MD 06/24/2022 Hammad Byrne MD 06/25/22 0652 * Mayelin Culver RN - 06/24/2022 7:57 PM CDT Patient presents to ED via [facility] with complaints of shortness of breathby [facility] staff. EMS reports patient tested positive for Covid 2 days ago. [facility] Staff reports patienthas had increasing shortness of breath, more lethargic than normal, and put her on oxygen today dueto being at 90% on room air. [facility] staff states they gave 2 units of Novolog according to sliding scale before calling for transportation to [facility] ED. documented in this encounter Plan of Treatment Not on file documented as of this encounter Goals Goal Patient Goal Type Associated Problems Recent Progress Patient-Stated? Author Establish Plan for Regular Lab Work General Marlys Berg RN documented as of this encounter Procedures Procedure Name Priority Date/Time Associated Diagnosis Comments LACTIC ACID Routine 06/25/2022 12:07 PM CDT POCT GLUCOSE - SHAFFER DOCKED DEVICE Routine 06/25/2022 10:20 AM CDT PROTHROMBIN TIME, VENOUS TIMED 06/25/2022 9:46 AM CDT TROPONIN, QUANT Routine 06/25/2022 9:46 AM CDT ECG 12-LEAD Routine 06/25/2022 9:41 AM CDT CULTURE, BACTERIA, BLOOD TIMED 06/25/2022 9:00 AM CDT LACTIC ACID Routine 06/25/2022 8:51 AM CDT CULTURE, BACTERIA, BLOOD STAT 06/25/2022 8:51 AM CDT BLOOD GAS, ARTERIAL LAB STAT 06/25/2022 8:34 AM CDT COMPREHENSIVE METABOLIC PANEL STAT 06/25/2022 5:21 AM CDT CBC W/DIFF AUTOMATED Routine 06/25/2022 5:21 AM CDT CTA CHEST NATHANAEL 06/25/2022 4:04 AM CDT URINALYSIS WI REFLEX TO CULTURE Routine 06/25/2022 3:40 AM CDT URINE BACTERIA CULTURE Routine 3:40 AM CDT PROCALCITONIN (PCT) Routine 06/25/2022 1 2:05 AM CDT PRO-BRAIN NATRIURETIC PEPTIDE Routine 06/25/2022 12:05 AM CDT D-DIMER, QUANTITATIVE Routine 06/25/2022 12:05 AM CDT MRSA SCREENING Routine 06/24/2022 11:20 PM CDT COMPREHENSIVE METABOLIC PANEL STAT 06/24/2022 8:30 PM CDT CBC W/DIFF AUTOMATED STAT 06/24/2022 8:30 PM CDT TROPONIN, QUANT STAT 06/24/2022 8:30 PM CDT XR CHEST PORTABLE STAT 06/24/2022 8:1 5 PM CDT documented in this encounter Results * (ABNORMAL) Lactic Acid in 3 hours (06/25/2022 12:07 PM CDT) LACTIC ACID VENOUS 2.6(HH) 0.4 - 2.0 MMOL/L 06/25/2022 12:52 PM CDT [facility] Comment: DO CALLED CRITICAL RESULTS AT [id number] TO AND READ BACK BY KARLA ALEXANDRE RN INPATIENT AN ORDER FOR A REPEAT LACTIC ACID IS REQUIRED WITHIN 6 HOURS OF DIAGNOSIS ON A PATIENT WITH SEVERE SEPSIS. 06/25/2022 12:0 7 PM CDT us Murdock Doug MENJIV[facility] LABORATORY Final Res ult Performing Organization Address [facility]/ZIP Co de Phone Number [facility] [address] [place] [address], [place] [phone] * (ABNORMAL) POCT glucose (06/25/2022 10:20 AM CDT) GLUCOSE POC 196(H) 70 - 110 mg/dL 06/25/2022 10:25 AM CDT [facility] 06/25/2022 10:2 0 AM CDT Collette Camacho Josh MENJIVAR POCT ORDERABLES - DEVICE Final Result Performing Organization Address [facility] Co de Phone Number [facility] [address] [place] [address], [place] [phone] * (ABNORMAL) PROTIME/INR, VENOUS (06/25/2022 9:46 AM CDT) PROTIME 37.3(H) 9.1 - 12.4 SEC 06/25/2022 10:03 AM CDT [facility] INR 3.3 06/25/2022 10:03 AM CDT [facility] Comment: Recommend INR ranges for Oral Anticoagulant Therapy: Mechanical Cardiac Values 2.5-3.5 All others indication 2.0-3.0 06/25/2022 9:46 AM CDT us Murdock Doug [facility] Final Res ult Performing Organization Address [facility]/ZIP Co de Phone Number [facility] [address] [place] [address], * TROPONIN, QUANT (06/25/2022 9:46 AM CDT) TROPONIN I HIGH SENSITIVITY 15 <51 ng/L 06/25/2022 10:16 AM CDT [facility] Comment: HIGH DOSES OF BIOTIN, TROPONIN-SPECIFIC AUTOANTIBODIES, AND ANTIBODY THERAPY CONTAINING HAMA MAY INTERFERE WITH THIS TEST RESULT. CORRELATION TO CLINICAL HISTORY AND PRESENTATION RECOMMENDED. 06/25/2022 9:46 AM CDT Radha Laurent MD LABORATORY Final Result Performing Organization Address [facility] Co de Phone Number [facility] [address] [place] [address], * ECG 12 lead (06/25/2022 9:41 AM CDT) 06/25/2022 9:41 AM CDT Narrative [facility]) RAD - 07/01/2022 7:13 AM CDT ?[facility] ? Test Date: ?2022-06-25 Pat Name: ? EMELINA SANTOYO ? Department: ?? 85 ? Room: ? 1151 Gender: ? Female ? Principal Gifts Officer: ?? : ?1940 ? Requested By: RADHA LAURENT Order Number: [id number] ? Reading MD: ?? Rafi Rodriguez ? Measurements Intervals ?[place] ? Rate: ? 81 ? P: ?55 SD: ? 156 ?QRS: ?66 QRSD: ? 109 ?T: ?27 QT: ? 305 ? QTc: ?355 ? Interpretive Statements SINUS RHYTHM WITH MARKED SINUS ARRHYTHMIA NONSPECIFIC T-WAVE ABNORMALITY Compared to ECG 07/29/2020 01:35:13 T-wave abnormality now present Procedure Note Rafi Rodriguez MD - 07/01/2022 [facility] Test Date: 2022-06-25 Pat Name: EMELINA SANTOYO Department: 85 Room: 1151 Gender: Female Principal Gifts Officer: : 1940 Requested By: RADHA LAURENT Order Number: [id number] Reading MD: Rafi Rodriguez Measurements Intervals [place] Rate: 81 P: 55 SD: 156 QRS: 66 QRSD: 109 T: 27 QT: 305 QTc: 355 Interpretive Statements SINUS RHYTHM WITH MARKED SINUS ARRHYTHMIA NONSPECIFIC T-WAVE ABNORMALITY Compared to ECG 07/29/2020 01:35:13 T-wave abnormality now present us Radha Laurent MD ECG ORDERABLES Final Result [facility] * CULTURE, BACTERIA, BLOOD (06/25/2022 9:00 AM CDT) SPEC DESCRIPTION BLOOD 06/25/2022 8:10 AM CDT [facility] SPECIAL REQUESTS NO SPECIAL REQUEST 06/25/2022 8:10 AM CDT [facility] CULTURE RESULT NO GROWTH 6 DAYS 07/01/2022 3:08 AM CDT [facility] BLOOD SPECIMEN OBTAINED FOR BLOOD CULTURE / Unknown 06/25/2022 9:00 AM CDT 06/25/2022 9:01 AM CDT Collette MENJIVAR MICROBIOLOGY - GENERAL OR DERABLES Final Result [facility] [address] [place] [address], [place] [phone] * CULTURE, BACTERIA, BLOOD (06/25/2022 8:51 AM CDT) SPEC DESCRIPTION BLOOD 06/25/2022 8:10 AM CDT [facility] SPECIAL REQUESTS NO SPECIAL REQUEST 06/25/2022 8:10 AM CDT [facility] CULTURE RESULT NO GROWTH 6 DAYS 07/01/2022 3:08 AM CDT [facility] BLOOD SPECIMEN OBTAINED FOR BLOOD CULTURE / Unknown 06/25/2022 8:51 AM CDT 06/25/2022 8:52 AM CDT Collette MENJIVAR MICROBIOLOGY - GENERAL OR DERABLES Final Result Performing Organization Address [facility]/ZIP Co de Phone Number [facility] [address] [place] [address], [place] [phone] * (ABNORMAL) LACTIC ACID (06/25/2022 8:51 AM CDT) LACTIC ACID VENOUS 2.7(HH) 0.4 - 2.0 MMOL/L 06/25/2022 9:29 AM CDT [facility] Comment: LEONCIO CALLED CRITICAL RESULTS AT [id number] TO AND READ BACK BY JACK TYSON IN INPATIENT AN ORDER FOR A REPEAT LACTIC ACID IS REQUIRED WITHIN 6 HOURS OF DIAGNOSIS ON A PATIENT WITH SEVERE SEPSIS. 06/25/2022 8:51 AM CDT us Collette MENJIVAR LABORATORY Final Res ult [facility] [address] [place] [address], [place] [phone] * (ABNORMAL) ARTERIAL BLOOD GAS (06/25/2022 8:34 AM CDT) PH ARTERIAL 7.35 7.35 - 7.45 06/25/2022 8:41 AM CDT [facility] PCO2 39.1 32 - 45 MM HG 06/25/2022 8:41 AM [facility] PO2 63(L) 83 - 108 MM HG 06/25/2022 8:41 AM [facility] BICARB ARTERIAL 20.9(L) 21 - 28 MMOL/L 06/25/2022 8:41 AM [facility] BASE DEFICIT 3.8(H) 0 - 2 MMOL/L 06/25/2022 8:41 AM [facility] TOTAL CO2 ARTERIAL 22.1 22 - 28 MMOL/L 06/25/2022 8:41 AM [facility] O2 SATURATION 94.3(L) 95.0 - 99.0 % 06/25/2022 8:41 AM [facility] CARBON MONOXIDE 1.1 0.5 - 1.5 % 06/25/2022 8:41 AM [facility] Comment: CARBOXYHEMOGLOBIN RANGES NONSMOKER ? 0.5-1.5% MODERATE SMOKER ? <2.3% SMOKER ?2.1-4.2% HEAVY SMOKER ?8-9% METHEMOGLOBIN 0.2 0.0 - 1.5 % 06/25/2022 8:41 AM [facility] Comment: SYMPTOMS ASSOCIATED WITH HIGHER LEVELS OF METHEMOGLOIN ARE FOLLOWS. PERCENT ?? SYMPTOMS 15-20% ?? CYANOSIS 25-50% ?? HEADACHE, DYSPNEA, LIGHTHEADEDNESS, SYNSCOPE, ? WEAKNESS, PALPITATIONS 50-75% ?? ABNORMAL CARDIAC RHYTHMS, ALTERED MENTAL ? DELIRIUM, SEIZURES, COMA, PROFOUND ACIDOSIS >70% ? O2 ADMIN ARTERIAL UNKNOWN 022 8:41 AM [facility] DRAW SITE DRAWN FROM LEFT ARM 06/25/2022 8:41 AM CDT [facility] % O2 HEMOGLOBIN ARTERIAL 93.1(L) 94.0 - 98.0 % 06/25/2022 8:41 AM CDT [facility] REDUCED HGB ARTERIAL 5.6(H) 0.0 - 5.0 % 06/25/2022 8:41 AM CDT [facility] 06/25/2022 8:34 AM CDT Collette Moreno APNP LABORATORY Final Res ult [facility] [address] [place] [address], * (ABNORMAL) CBC W/DIFF AUTOMATED (06/25/2022 5:21 AM CDT) WBC 5.3 4.4 - 11.0 x10'3/uL 06/25/2022 6:35 AM CDT [facility] RBC 4.18(L) 4.50 - 5.10 x10'6/uL 06/25/2022 6:35 AM CDT [facility] HGB 12.4 12.3 - 15.3 G/DL 06/25/2022 6:35 AM CDT [facility] HCT 37.2 35.9 - 44.6 % 06/25/2022 6:35 AM CDT [facility] MCV 89.0 80.0 - 96.0 FL 06/25/2022 6:35 AM CDT [facility] MCH 29.7 25.3 - 30.9 PG 06/25/2022 6:35 AM CDT [facility] MCHC 33.3 31.0 - 34.1 G/DL 06/25/2022 6:35 AM CDT [facility] RDW 14.9 12.4 - 15.1 % 06/25/2022 6:35 AM CDT [facility] PLT 103(L) 151 - 353 x10'3/uL 06/25/2022 6:35 AM CDT [facility] MPV 10.3 9.6 - 12.0 FL 06/25/2022 6:35 AM CDT [facility] SEG NEUTROPHILS 71 42 - 72 % 6:43 AM CDT [facility] BANDS 11 % 06/25/2022 6:43 AM CDT [facility] LYMPHOCYTES 13(L) 15.8 - 45.0 % 06/25/2022 6:43 AM CDT [facility] MONOCYTES 5(L) 5.7 - 12.5 % 06/25/2022 6:43 AM CDT [facility] ABS. NEUTROPHILS 4.35 1.40 - 6.00 x10'3/uL 06/25/2022 6:43 AM CDT [facility] ABS. LYMPHOCYTES 0.69(L) 0.80 - 4.70 x10'3/uL 06/25/2022 6:43 AM T [facility] PLT MORPH. NORMAL 06/25/2022 6:43 AM CDT [facility] RBC MORPHOLOGY NORMAL 06/25/2022 6:43 AM CDT [facility] WBC MORPHOLOGY NORMAL 06/25/2022 6:43 AM CDT [facility] 06/25/2022 5:21 AM CDT us Collette VALENCIANP LABORATORY Final Res ult [facility] [address] [place] [address], [place] [phone] * (ABNORMAL) COMPREHENSIVE METABOLIC PANEL (06/25/2022 5:21 AM CDT) [facility] Signature GLUCOSE 197(H) 70 - 99 MG/DL 06/25/2022 6:22 AM T [facility] BUN 29(H) 7 - 18 MG/DL 06/25/2022 6:22 AM T [facility] CREATININE S/P/B 1.75(H) 0.55 - 1.02 MG/DL 06/25/2022 6:22 AM T [facility] SODIUM S/P/B 142 136 - 145 MMOL/L 06/25/2022 6:22 AM [facility] POTASSIUM S/P/B 4.4 3.5 - 5.1 MMOL/L 06/25/2022 6:22 AM T [facility] CHLORIDE S/P/B 107 100 - 108 MMOL/L 06/25/2022 6:22 AM [facility] CO2 22.5 21 - 32 MMOL/L 06/25/2022 6:22 AM [facility] CALCIUM S/P/B 8.8 8.5 - 10.1 MG/DL 06/25/2022 6:22 AM [facility] BILIRUBIN TOTAL S/P/B 0.6 0.2 - 1.2 MG/DL 06/25/2022 6:22 AM [facility] TOTAL PROTEIN S/P/B 6.4 6.4 - 8.2 G/DL 06/25/2022 6:22 AM [facility] ALBUMIN S/P/B 2.9(L) 3.4 - 5.0 G/DL 06/25/2022 6:22 AM [facility] AST 20 15 - 37 U/L 06/25/2022 6:22 AM CDT [facility] ALT 31 14 - 55 U/L 06/25/2022 6:22 AM CDT [facility] ALKALINE PHOSPHATASE S/P/B 87 50 - 136 U/L 06/25/2022 6:22 AM CDT [facility] ANION GAP 12.5 5 - 15 MMOL/L 06/25/2022 6:22 AM T [facility] BUN CREATININE RATIO 16.6 6 - 26 06/25/2022 6:22 AM T [facility] A/G RATIO 0.8(L) 1.0 - 2.0 RATIO 06/25/2022 6:22 AM T [facility] GFR ESTIMATE 29(L) >90 ML/MIN/1.7 3 M2 06/25/2022 6:22 AM T [facility] Comment: NOTE: eGFR is not calculated for patients <18 years of age. This is an estimated GFR calculation using the new CKD EPI creatinine equation without race and so does not require a correction factor for race. This estimated GFR should not be used for calculating drug doses. 06/25/2022 5:21 AM CDT Jm Diaz MD LABORATORY Final Re sult [facility] [address] [place] [address], * CTA CHEST (06/25/2022 4:04 AM CDT) Anatomical Region Laterality Modality Chest Computed Tomogra phy 06/25/2022 8:10 AM CDT Impressions 06/25/2022 8:26 AM CDT IMPRESSION: Opacification of posterior aspect of inferior lower lobe bilaterally with air bronchogram formation identified. This is felt to likely represent combination of active infiltrate/aspiration and atelectasis. There are some retained secretions identified within the trachea. Small amount of fluid in the esophagus with air- fluid level in upper thoracic esophagus; this may be on basis of GE reflux disease. No pulmonary emboli identified in main pulmonary arteries or major pulmonary artery branches. Mild motion artifact. Atherosclerotic calcification of thoracic aorta and coronary arteries with mild coronary artery calcification. No thoracic aortic aneurysm or dissection identified. Sagittal and coronal reconstruction performed along with coronal oblique reconstruction. Preliminary teleradiology report provided. No pulmonary mass lesions, pneumothorax, or pleural fluid collections. No apparent axillary, mediastinal, or hilar lymphadenopathy with some subcentimeter short axis reactive size mediastinal lymph nodes noted. Pneumobilia noted, presumably on basis of prior biliary duct instrumentation. Cholecystectomy. No lesions noted in visualized upper abdomen. Mild degenerative and hypertrophic change in thoracic spine and visualized lower cervical spine. Ordered By: JM DIAZ Interpreted By: Blaise Louise, 06/25/2022 8:10 AM Narrative 06/25/2022 8:26 AM CDT IMAGING STUDIES: CTA CHEST WITH IV CONTRAST WITH RECONSTRUCTION DATE: 06/25/2022 3:55 AM HISTORY: Shortness of breath. Cough. Elevated d-dimer. Covid 19 infection. COMPARISON: 06/24/2022 chest x-ray. CONTRAST: 50 mL Isovue-370 IV. Radiation dose reduction technique was utilized. Procedure Note Blaise Louise MD - 06/25/2022 IMAGING STUDIES: CTA CHEST WITH IV CONTRAST WITH RECONSTRUCTION DATE: 06/25/2022 3:55 AM HISTORY: Shortness of breath. Cough. Elevated d-dimer. Covid 19infection. COMPARISON: 06/24/2022 chest x-ray. CONTRAST: 50 mL Isovue-370 IV. Radiation dose reduction technique was utilized. IMPRESSION: Opacification of posterior aspect of inferior lower lobebilaterally with air bronchogram formation identified. This is felt tolikely represent combination of active infiltrate/aspiration andatelectasis. There are some retained secretions identified within thetrachea. Small amount of fluid in the esophagus with air- fluid level inupper thoracic esophagus; this may be on basis of GE reflux disease. No pulmonary emboli identified in main pulmonary arteries or majorpulmonary artery branches. Mild motion artifact. Atheroscleroticcalcification of thoracic aorta and coronary arteries with mild coronaryartery calcification. No thoracic aortic aneurysm or dissectionidentified. Sagittal and coronal reconstruction performed along withcoronal oblique reconstruction. Preliminary teleradiology reportprovided. No pulmonary mass lesions, pneumothorax, or pleural fluid collections. Noapparent axillary, mediastinal, or hilar lymphadenopathy with somesubcentimeter short axis reactive size mediastinal lymph nodes noted. Pneumobilia noted, presumably on basis of prior biliary ductinstrumentation. Cholecystectomy. No lesions noted in visualized upperabdomen. Mild degenerative and hypertrophic change in thoracic spine andvisualized lower cervical spine. Ordered By: JM DIAZ Interpreted By: Blaise Louise, 06/25/2022 8:10 AM us Jm Diaz MD CT Final Re sult * (ABNORMAL) CULTURE URINE (06/25/2022 3:40 AM CDT) SPEC DESCRIPTION URINE CLEAN CATCH 06/25/2022 5:52 AM CDT [facility] SPECIAL REQUESTS NO SPECIAL REQUEST 06/25/2022 5:52 AM CDT [facility] CULTURE RESULT 50,000-100,000 COL/ML KLEBSIELLA PNEUMONIAE (A) 06/26/2022 11:[address] [facility] URINE SPECIMEN OBTAINED BY CLEAN CATCH PROCEDURE / Unknown 06/25/2022 3:40 AM CDT 06/25/2022 5:52 AM CDT Narrative Organism Antibiotic Method Susceptibility Klebsiella pneumoniae AMPICILLIN SANDER (VITEK) >=32: Resistant Klebsiella pneumoniae AMPICILLIN/SULBACTAM SANDER (VITEK) 4: Sensitive Klebsiella pneumoniae CEFTRIAXONE SANDER (VITEK) <=1: Sensitive Klebsiella pneumoniae CEFTAZIDIME SANDER (VITEK) <=1: Sensitive Klebsiella pneumoniae CEFAZOLIN SANDER (VITEK) <=4: Sensitive Klebsiella pneumoniae ESBL SANDER (VITEK) NEG: Sensitive Klebsiella pneumoniae NITROFURANTOIN SANDER (VITEK) 32: Sensitive Klebsiella pneumoniae GENTAMICIN SANDER (VITEK) <=1: Sensitive Klebsiella pneumoniae LEVOFLOXACIN SANDER (VITEK) <=0.12: Sensitive Klebsiella pneumoniae PIPRACIL/TAZO SANDER (VITEK) <=4: Sensitive Klebsiella pneumoniae TRIMETH-SULFAMETH. SANDER (VITEK) <=20: Sensitive Collette Moreno [facility] - GENERAL OR DERABLES Final Result [facility] [address] [place] [address], [place] [phone] [facility] [address] [place] [address], [place] [phone] * (ABNORMAL) URINALYSIS WI REFLEX TO CULTURE (06/25/2022 3:40 AM CDT) COLOR (U) DARK YELLOW 06/25/2022 5:51 AM CDT [facility] TRANSPARENCY HAZY 06/25/2022 5:51 AM CDT [facility] SPECIFIC GRAVITY (U) >1.030(H) 1.000 - 1.030 06/25/2022 5:51 AM CDT [facility] U PH 6.0 5.0 - 9.0 06/25/2022 5:51 AM CDT [facility] LEUKOCYTES (U) NEGATIVE NEGATIVE 06/25/2022 5:51 AM CDT [facility] NITRITES POSITIVE(A) NEGATIVE 06/25/2022 5:51 AM CDT [facility] PROTEIN (U) TRACE(A) NEGATIVE 06/25/2022 5:51 AM CDT [facility] URINE GLUCOSE NEGATIVE NEGATIVE 06/25/2022 5:51 AM CDT [facility] KETONES MG/DL (U) TRACE(A) NEGATIVE 06/25/2022 5:51 AM CDT [facility] BILIRUBIN (U) NEGATIVE NEGATIVE 06/25/2022 5:51 AM CDT [facility] BLOOD (U) NEGATIVE NEGATIVE 06/25/2022 5:51 AM CDT [facility] WBC/HPF 0-5 0 - 5 /HPF 06/25/2022 5:51 AM CDT [facility] RBC/HPF 0-5 0 - 5 /HPF 06/25/2022 5:51 AM CDT [facility] EPI/HPF RARE /HPF 06/25/2022 5:51 AM CDT [facility] CULTURE & SENSITIVITY INDICATED? SPECIMEN SETUP FOR CULTURE 06/25/2022 5:51 AM CDT [facility] BACTERIA (U) MANY /HPF 06/25/2022 5:51 AM CDT [facility] URINE, STRAIGHT CATH 06/25/2022 3:40 AM CDT Jm Diaz MD URINE ORDERABLES Final R esult [facility] [address] [place] [address], * (ABNORMAL) PROCALCITONIN (PCT) (06/25/2022 12:05 AM CDT) Procalcitonin 0.39(H) 0.00 - 0.25 NG/ML 06/25/2022 1:51 AM CDT [facility] Comment: PROCALCITONIN INTERPRETATION GUIDELINES LOWER RESPIRATORY TRACT INFECTIONS (LRTI): USE OF PCT IN INPATIENT OR EMERGENCY SITUATION INITIATION OF ANTIBIOTICS PCT VALUE ? INTERPRETATION <0.10 NG/ML ?ANTIBIOTIC THERAPY ? STRONGLY DISCOURAGED. 0.10-0.25 NG/ML ?ANTIBIOTIC THERAPY ? DISCOURAGED. 0.26-0.50 NG/ML ?ANTIBIOTIC THERAPY ? ENCOURAGED. >0.50 NG/ML ?ANTIBIOTIC THERAPY ? STRONGLY ENCOURAGED. DISCONTINUE ANTIBIOTICS PCT LESS THAN OR EQUAL TO 0.25 NG/ML OR DELTA PCT >80 PERCENT DELTA PCT= PCT(PEAK)-PCT(CURRENT)/PCT(PEAK)X100% STUDIES HAVE EVALUATED PCT PROTOCOLS IN THESE PATIENTS AND FOUND THAT FOR PATIENTS WHO ARE CLINICALLY STABLE AND ARE TREATED AT THE ED OR ARE HOSPITALIZED, THE INITIATION OF ANTIBIOTIC THERAPY SHOULD BE BASED ON CLINICAL GROUNDS AND A PCT VALUE OF GREATER THAN OR EQUAL TO 0.26 NG/ML. IF PCT REMAINS LOWER, ANTIBIOTICS CAN BE WITHHELD AND PATIENTS CAN BE REASSESSED CLINICALLY WITHOUT SAFETY CONCERNS. IF PATIENTS ARE CLINICALLY STABLE, AN ALTERNATIVE DIAGNOSIS SHOULD BE CONSIDERED. IF PATIENTS ARE UNSTABLE, THEN ANTIBIOTICS MAY BE CONSIDERED. IF PATIENTS DO NOT IMPROVE IN THE SHORT FOLLOW UP PERIOD OF 6 TO 12 HOURS, CLINICAL RE-EVALUATION AND RE-MEASUREMENT OF PCT IS RECOMMENDED. 06/25/2022 12:0 5 AM CDT Jm Diaz MD LABORATORY Final Re sult [facility] [address] [place] [phone], * (ABNORMAL) D-DIMER, QUANTITATIVE (06/25/2022 12:05 AM CDT) [facility] D-DIMER 3,890(H) 0 - 500 ng{FEU}/mL 06/25/2022 12:38 AM CDT [facility] Comment: D-Dimer values less than or equal to 500 ng/mL FEU have a negative predictive value of >95% for exclusion of deep vein thrombosis and pulmonary embolism. In patients over 50 (who tend to have higher normal baseline D-Dimer values), recent studies suggest age-adjusted D-Dimer cutoff values (calculated as: age [years] x 10 ng/mL) result in equivalent outcomes and no additional false negative findings. 06/25/2022 12:0 5 AM CDT Jm Diaz MD LABORATORY Final Re sult Performing Organization Address City/[facility]/ZIP Co de Phone Number [facility] [address] [place] [address], [place] [phone] * (ABNORMAL) PRO-BRAIN NATRIURETIC PEPTIDE (06/25/2022 12:05 AM CDT) PRO-B TYPE NATRIURETIC PEPTIDE 520(H) <450 PG/ML 06/25/2022 1:09 AM CDT [facility] Comment: CUT POINTS ESTABLISHED BY [employer]ATIONAL [employer] ON NT PROBNP (ICON) STUDY (2006). AGE INDEPENDENT: <300 PG/ML HAS A 99% NEGATIVE PREDICTIVE VALUE FOR EXCLUDING ACUTE CHF <50 YEARS: >450 PG/ML IS CONSISTENT WITH ACUTE CHF 50-75 YEARS: >900 PG/ML IS CONSISTENT WITH ACUTE CHF >75 YEARS: >1800 PG/ML IS CONSISTENT WITH ACUTE CHF IN PATIENTS WITH RENAL INSUFFICIENCY (GFR <60), >1200 PG/ML YIELDS A DIAGNOSTIC SENSITIVITY AND SPECIFICITY OF 89% AND 72% FOR ACUTE CHF. 06/25/2022 12:0 5 AM CDT Jm Diaz MD LABORATORY Final Re sult Performing Organization Address [facility]/ZIP Co de Phone Number [facility] [address] [place] [address], [place] [phone] * MRSA SCREENING (06/24/2022 11:20 PM CDT) SPEC DESCRIPTION NASAL 06/24/2022 11:33 PM CDT [facility] SPECIAL REQUESTS NO SPECIAL REQUEST 06/24/2022 11:33 PM CDT [facility] CULTURE RESULT NO METHICILLIN RESISTANT STAPHYLOCOCCUS AUREUS ISOLATED 06/26/2022 5:23 AM CDT [facility] SPECIMEN FROM INTERNAL NOSE / Unknown 06/24/2022 11:20 PM CDT 06/25/2022 3:07 AM CDT Jm Diaz MD MICROBIOLOGY - GENERAL O RDERABLES Final Result Performing Organization Address City/[facility]/ZIP Co de Phone Number [facility] [address] [place] [address], [place] [phone] * TROPONIN, QUANT (06/24/2022 8:30 PM CDT) TROPONIN I HIGH SENSITIVITY 11 <51 ng/L 06/24/2022 8:54 PM CDT [facility] Comment: HIGH DOSES OF BIOTIN, TROPONIN-SPECIFIC AUTOANTIBODIES, AND ANTIBODY THERAPY CONTAINING HAMA MAY INTERFERE WITH THIS TEST RESULT. CORRELATION TO CLINICAL HISTORY AND PRESENTATION RECOMMENDED. 06/24/2022 8:30 PM CDT Hammad Byrne MD LABORATORY Final Resul t Performing Organization Address [facility] Co de Phone Number [facility] [address] [place] [address], [place] [phone] * (ABNORMAL) COMPREHENSIVE METABOLIC PANEL (06/24/2022 8:30 PM CDT) GLUCOSE 204(H) 70 - 99 MG/DL 06/24/2022 8:51 PM CDT [facility] BUN 24(H) 7 - 18 MG/DL 06/24/2022 8:51 PM CDT [facility] CREATININE S/P/B 1.36(H) 0.55 - 1.02 MG/DL 06/24/2022 8:51 PM CDT [facility] SODIUM S/P/B 141 136 - 145 MMOL/L 06/24/2022 8:51 PM T [facility] POTASSIUM S/P/B 4.3 3.5 - 5.1 MMOL/L 06/24/2022 8:51 PM [facility] CHLORIDE S/P/B 104 100 - 108 MMOL/L 06/24/2022 8:51 PM [facility] CO2 24.8 21 - 32 MMOL/L 06/24/2022 8:51 PM [facility] CALCIUM S/P/B 9.4 8.5 - 10.1 MG/DL 06/24/2022 8:51 PM [facility] BILIRUBIN TOTAL S/P/B 0.7 0.2 - 1.2 MG/DL 06/24/2022 8:51 PM [facility] TOTAL PROTEIN S/P/B 7.7 6.4 - 8.2 G/DL 06/24/2022 8:51 PM [facility] ALBUMIN S/P/B 3.7 3.4 - 5.0 G/DL 06/24/2022 8:51 PM [facility] AST 28 15 - 37 U/L 06/24/2022 8:51 PM [facility] ALT 43 14 - 55 U/L 06/24/2022 8:51 PM [facility] ALKALINE PHOSPHATASE S/P/B 126 50 - 136 U/L 06/24/2022 8:51 PM [facility] ANION GAP 12.2 5 - 15 MMOL/L 06/24/2022 8:51 PM [facility] BUN CREATININE RATIO 17.6 6 - 26 06/24/2022 8:51 PM CDT [facility] A/G RATIO 0.9(L) 1.0 - 2.0 RATIO 06/24/2022 8:51 PM CDT [facility] GFR ESTIMATE 39(L) >90 ML/MIN/1.7 3 M2 06/24/2022 8:51 PM CDT [facility] Comment: NOTE: eGFR is not calculated for patients <18 years of age. This is an estimated GFR calculation using the new CKD EPI creatinine equation without race and so does not require a correction factor for race. This estimated GFR should not be used for calculating drug doses. 06/24/2022 8:30 PM CDT Hammad Byrne MD LABORATORY Final Resul t [facility] [address] [place] [address], * (ABNORMAL) CBC W/DIFF AUTOMATED (06/24/2022 8:30 PM CDT) WBC 6.7 4.4 - 11.0 x10'3/uL 06/24/2022 9:22 PM CDT [facility] RBC 5.14(H) 4.50 - 5.10 x10'6/uL 06/24/2022 9:22 PM CDT [facility] HGB 15.2 12.3 - 15.3 G/DL 06/24/2022 9:22 PM CDT [facility] HCT 45.5(H) 35.9 - 44.6 % 06/24/2022 9:22 PM CDT [facility] MCV 88.5 80.0 - 96.0 FL 06/24/2022 9:22 PM CDT [facility] MCH 29.6 25.3 - 30.9 PG 06/24/2022 9:22 PM CDT [facility] MCHC 33.4 31.0 - 34.1 G/DL 06/24/2022 9:22 PM CDT [facility] RDW 14.7 12.4 - 15.1 % 06/24/2022 9:22 PM CDT [facility] PLT 111(L) 151 - 353 x10'3/uL 06/24/2022 9:22 PM CDT [facility] MPV 11.3 9.6 - 12.0 FL 06/24/2022 9:22 PM CDT [facility] SEG NEUTROPHILS 87(H) 42 - 72 % 9:58 PM CDT [facility] LYMPHOCYTES 9(L) 15.8 - 45.0 % 06/24/2022 9:58 PM CDT [facility] MONOCYTES 4(L) 5.7 - 12.5 % 06/24/2022 9:58 PM CDT [facility] ABS. NEUTROPHILS 5.83 1.40 - 6.00 x10'3/uL 06/24/2022 9:58 PM CDT [facility] ABS. LYMPHOCYTES 0.60(L) 0.80 - 4.70 x10'3/uL 06/24/2022 9:58 PM T [facility] PLT MORPH. NORMAL 06/24/2022 9:58 PM T [facility] RBC MORPHOLOGY NORMAL 06/24/2022 9:58 PM CDT [facility] WBC MORPHOLOGY NORMAL 06/24/2022 9:58 PM T [facility] 06/24/2022 8:30 PM CDT us Hammad Byrne MD LABORATORY Final Resul t [facility] [address] [place] [address], * XR CHEST PORTABLE (06/24/2022 8:15 PM CDT) Anatomical Region Laterality Modality Chest Radiographic Marlene ging 06/25/2022 8:05 AM CDT Impressions 06/25/2022 8:09 AM CDT IMPRESSION: No active chest disease identified with chest appearance similar to 07/29/2020. Preliminary teleradiology report provided. Heart size and pulmonary vascularity are felt to be within normal limits. Atherosclerotic aorta. Patient is listing to the right. No pulmonary consolidation, pneumothorax, or pleural fluid collections identified. Chin flexed on chest partially obscuring apices. Partial visualization of left convex thoracolumbar scoliosis. Degenerative and hypertrophic change in thoracic spine. Osseous demineralization felt to be present. Ordered By: HAMMAD BYRNE Interpreted By: Blaise Louise, 06/25/2022 8:05 AM Narrative 06/25/2022 8:09 AM CDT EXAMINATION: XR CHEST PORTABLE EXAM DATE/TIME: 06/24/2022 8:08 PM CLINICAL HISTORY: Cough and shortness of breath. Covid 19 infection. COMPARISON: 07/29/2020 chest x-ray. Procedure Note Blaise Louise MD - 06/25/2022 EXAMINATION: XR CHEST PORTABLE EXAM DATE/TIME: 06/24/2022 8:08 PM CLINICAL HISTORY: Cough and shortness of breath. Covid 19 infection. COMPARISON: 07/29/2020 chest x-ray. IMPRESSION: No active chest disease identified with chest appearancesimilar to 07/29/2020. Preliminary teleradiology report provided. Heart size and pulmonary vascularity are felt to be within normal limits.Atherosclerotic aorta. Patient is listing to the right. No pulmonaryconsolidation, pneumothorax, or pleural fluid collections identified. Chinflexed on chest partially obscuring apices. Partial visualization of leftconvex thoracolumbar scoliosis. Degenerative and hypertrophic change inthoracic spine. Osseous demineralization felt to be present. Ordered By: HAMMAD BYRNE Interpreted By: Blaise Louise, 06/25/2022 8:05 AM Collette Moreno [facility] Final Res ult documented in this encounter Visit Diagnoses Diagnosis COVID- Primary COVID Acute respiratory failure with hypoxia ([facility]/HCC [facility]/HCC) Acute respiratory failure documented in this encounter Admitting Diagnoses Diagnosis COVID documented in this encounter Administered Medications Inactive Administered Medications - up to 3 most recent administrations Medication Order MAR Action Action Date Dose Rate Site acetaminophen (TYLENOL) 325 MG/10.15ML solution 1,000 mg 1,000 mg, Oral, Every 6 hours PRN, Mild pain (Scale 1 - 3), Fever, Temp greater than 99 F (37 C), Starting on Thu06/24/22 at 2204, Until Thu06/25/22 at 1651, Give if unable to swallow tablets/capsules or if patient prefers liquid. Maximum dose of acetaminophen is 4000 mg from all sources in 24 hours. acetaminophen (TYLENOL) suppository 650 mg 650 mg, Rectal, Every 4 hours PRN, Mild pain (Scale 1 - 3), Fever, Temp greater than 99 F (37 C), Starting on Thu06/24/22 at 2204, Until Thu06/25/22 at 1651, Give if unable to take PO. Maximum dose of acetaminophen is 4000 mg from all sources in 24 hours. acetaminophen (TYLENOL) tablet 1,000 mg 1,000 mg, Oral, Every 6 hours PRN, Mild pain (Scale 1 - 3), Fever, Temp greater than 99 F (37 C), Starting on Thu06/24/22 at 2204, Until Thu06/25/22 at 1651, Maximum dose of acetaminophen is 4000 mg from all sources in 24 hours. albuterol sulfate HFA 108 (90 Base) MCG/ACT inhaler 2 puff 2 puff, Inhalation, Every 4 hours PRN, Shortness of breath, Starting on Thu06/24/22 at 2205, Until Thu06/25/22 at 1651 ampicillin-sulbactam (UNASYN) 3 g in sodium chloride 0.9 % 100 mL IVPB 3 g, Intravenous, at 200 mL/hr, Every 12 hours, First dose on Thu06/25/22 at 0915, Until Discontinued New Bag 06/25/2022 9:21 AM CDT 3 g 200 mL/hr dexamethasone (DECADRON) injection 6 mg 6 mg, Intravenous, Daily, 10 doses, First dose on Thu06/24/22 at 2230, Last dose on Thu07/03/22 at 1500, If giving intravenously, administer slowly over 1-4 minutes. Given 06/24/2022 11:14 PM CDT 6 mg dexamethasone (DECADRON) tablet 6 mg 6 mg, Oral, Daily, 10 doses, First dose on Thu06/24/22 at 2230, Last dose on Thu07/03/22 at 1500 dextrose (GLUTOSE) 40 % oral gel 37.5-75 g 37.5-75 g (15-30 g of dextrose), Oral, As needed, Low blood sugar, Starting on Thu06/24/22 at 2206, Until Thu06/25/22 at 1651, If patient is verbally responsive and taking thickened liquids or oral medications: Blood glucose less than 50 mg/dL - give 30 g of dextrose; repeat until blood glucose reaches 70 mg/dL Blood glucose 50-69 mg/dL - give 15 g of dextrose; repeat until blood glucose reaches 70 mg/dL 37.5 g of glucose gel = 15 g of dextrose dextrose 10 % bolus infusion 125-250 mL 125-250 mL, Intravenous, Administer over 15 Minutes, As needed, Low Blood Sugar, Starting on Thu06/24/22 at 2206, Until Thu06/25/22 at 1651, If patient is verbally responsive and NPO or unable to swallow: Blood glucose less than 50 mg/dL - give 250 mL (25 g) and repeat until blood glucose reaches 70 mg/dL Blood glucose 50-69 mg/dL - give 125 mL (12.5 g) and repeat until blood glucose reaches 70 mg/dL If patient is verbally Unresponsive and NPO or unable to swallow: Blood glucose less than 70 mg/dL - give 250 mL (25 g), repeat until blood glucose reaches 70 mg/dL famotidine (PEPCID) tablet 10 mg 10 mg, Oral, Daily, First dose (after last modification) on Thu06/26/22 at 0900, Until Discontinued famotidine (PF) (PEPCID) injection 10 mg 10 mg, Intravenous, Daily, First dose (after last modification) on [facility] 06/26/22 at 0900, Until Discontinued, Give if unable to take PO. Renal dose adjustment per P&T protocol IV Push over 2 minutes famotidine (PF) (PEPCID) injection 20 mg 20 mg, Intravenous, Daily, First dose (after last reorder) on Thu06/25/22 at 0900, Until Discontinued, Give if unable to take PO. Renal dose adjustment per P&T protocol IV Push over 2 minutes Given 06/25/2022 9:22 AM CDT 20 mg glucagon injection 1 mg 1 mg, Intramuscular, Once as needed, Other, Low blood sugar, 1 dose, Starting on Thu06/24/22 at 2206, Until Thu06/25/22 at 165, If patient is verbally UNresponsive and no IV access with blood glucose less than 70 mg/dL. Do NOT repeat administration. guaiFENesin (ROBITUSSIN) 100 MG/5ML solution 5 mL 5 mL, Oral, Every 6 hours PRN, Cough, Starting on Thu06/24/22 at 2205, Until Thu06/25/22 at 1651 heparin (porcine) injection 5,000 Units 5,000 Units, Subcutaneous, Every 12 hours scheduled (2 times per day), First dose on Thu06/24/22 at 2215, Until Discontinued Given 06/25/2022 9:22 AM CDT 5,000 Units Left Lower Abdomen Given 06/24/2022 11:16 PM CDT 5,000 Units Right Lower Abdomen heparin lock flush 10 UNIT/ML injection 30 Units 30 Units, Intracatheter, Daily, First dose on Thu06/25/22 at 1030, Until Discontinued heparin lock flush 10 UNIT/ML injection 30 Units 30 Units, Intracatheter, As needed, Line care, after blood draws, Starting on Thu06/25/22 at 1009, Until Thu06/25/22 at 165 insulin lispro (HUMALOG) injection 0-14 Units 0-14 Units, Subcutaneous, Every 6 hours, First dose on Thu06/25/22 at 0900, Until Discontinued, Blood Glucose (SENSITIVE Dosing): [Less than 70: Initiate Hypoglycemia Standing Orders] [71-140: 0 units] [141-180: 2 units] [181-220: 4 units] [221-260: 6 units] [261-300: 8 units] [301-350: 10 units] [351-400: 12 units] [Greater than 400: 14 units and Call Physician] Given 06/25/2022 10:22 AM CDT 4 Units Left Lower Abdomen insulin lispro (HUMALOG) injection 0-7 Units 0-7 Units, Subcutaneous, Nightly at bedtime, First dose on Thu06/24/22 at 2215, Until Discontinued, Blood Glucose (SENSITIVE Dosing): [Less than 70:? Initiate Hypoglycemia Standing Orders] [71-180: ? 0 units] [181-220:? 2 units] [221-260:? 3 units] [261-300:? 4 units] [301-350:? 5 units] [351-400:? 6 units] [Greater than 400:? 7 units and Call Physician] Given 06/24/2022 11:29 PM CDT 2 Units Left Arm iopamidol (ISOVUE-370) 76 % injection 50 mL 50 mL, Intravenous, IMG once as needed, Contrast, 1 dose, Starting on Thu06/25/22 at 0404, Until Thu06/25/22 at 0404 Given 06/25/2022 4:04 AM CDT 50 mLs norepinephrine (LEVOPHED) 4 mg in dextrose 5 % 250 mL (0.016 mg/mL) infusion 0.5-60 mcg/min (1.875-225 mL/hr, rounded to 1.88-225 mL/hr), Intravenous, Continuous, Starting on Thu06/25/22 at 0945, Until Thu06/25/22 at 1651, INITIAL RATE: 2mcg TITRATE according to MAP: - If MAP is 60-65 ----- 2 mcg/min every 10 min - If MAP is 55-59 ----- 5 mcg/min every 5 min - If MAP is 50-54 ----- 5 mcg/min every 2 min - If MAP is LESS than 50 ------ 5 mcg/min every 1 min MAP Goal:65 NOTIFY PROVIDER if max rate of 60 mcg/min reached and/or SBP LESS than 90 mmHg or MAP LESS than 55 mmHg despite 3 upward titrations NOTIFY PROVIDER if SBP GREATER than 150 mmHg for 3 consecutive readings despite weaning rate. The order in which vasopressors are to be discontinued will be dictated by physician. Rate/Dose Change 06/25/2022 11:02 AM CDT 7 mcg/min 26.3 mL/hr Rate/Dose Change 06/25/2022 10:54 AM CDT 6 mcg/min 22.5 m L/hr Rate/Dose Change 06/25/2022 10:43 AM CDT 7 mcg/min 26.3 m L/hr ondansetron (ZOFRAN) injection 4 mg 4 mg, Intravenous, Every 8 hours PRN, Nausea, Vomiting, Starting on Thu06/24/22 at 2204, Until Thu06/25/22 at 1651, IV push over 2-5 minutes. If patient unable to tolerate PO. ondansetron (ZOFRAN-ODT) disintegrating tablet 4 mg 4 mg, Oral, Every 8 hours PRN, Nausea, Vomiting, Starting on Thu06/24/22 at 2204, Until Thu06/25/22 at 1651 remdesivir (VEKLURY) 100 mg in sodium chloride 0.9 % 270 mL IV 100 mg, Intravenous, at 270 mL/hr, Every 24 hours, 4 doses, First dose on Nichole 06/26/22 at 0900, Last dose on Thu06/29/22 at 0900, Do not administer simultaneously with any other medications. If patient experiences HR < 50 bpm while on remdesivir, stop infusion and notify provider. If other signs and symptoms of a clinically significant infusion reaction occur, immediately stop administration and notify provider for further instructions. Flush with at least 30mL normal saline after infusion to ensure all drug administered remdesivir (VEKLURY) 200 mg in sodium chloride 0.9 % 290 mL IV 200 mg, Intravenous, at 290 mL/hr, Once, 1 dose, On Thu06/24/22 at 2215, Do not administer simultaneously with any other medications. If patient experiences HR < 50 bpm while on remdesivir, stop infusion and notify provider. If other signs and symptoms of a clinically significant infusion reaction occur, immediately stop administration and notify provider for further instructions. Flush with at least 30mL normal saline after infusion to ensure all drug administered New Bag 06/25/2022 9:21 AM CDT 200 mg 290 mL/hr sodium chloride (PF) 0.9 % flush 3-10 mL 3-10 mL, Intravenous, Every 24 hours, 5 doses, First dose on Thu06/24/22 at 2315, Last dose on Thu06/28/22 at 2315, Flush after remdesivir doses to ensure all drug is administered. sodium chloride 0.9% bolus infusion 1,000 mL 1,000 mL, Intravenous, Administer over 30 Minutes, Once, 1 dose, On Thu06/25/22 at 0830 New Bag 06/25/2022 8:15 AM CDT 1,000 mLs sodium chloride 0.9% bolus infusion 1,000 mL 1,000 mL, Intravenous, Administer over 30 Minutes, Once, 1 dose, On Thu06/25/22 at 0945 New 06/25/2022 9:28 AM CDT 1,000 mLs sodium chloride 0.9% infusion at 100 mL/hr, Intravenous, Continuous, Starting on Thu06/25/22 at 0930, Until Thu06/25/22 at 1651 New Bag 06/25/2022 10:38 AM CDT 100 mL/hr documented in this encounter Active and Recently Administered Medications Times are shown in CDT. Scheduled Medication Order 06/23/2022 06/24/2022 06/25/2022 ampicillin-sulbactam (UNASYN) 3 g in sodium chloride 0.9 % 100 mL IVPB 3 g, Intravenous, at 200 mL/hr, Every 12 hours, First dose on Thu06/25/22 at 0915, Until Discontinued 0921 (New Bag - Prov ider: Karla Alexandre RN)1021 (Infusion Stop Time - Provider: Karla Alexandre RN) dexamethasone (DECADRON) injection 6 mg(Linked Group 1) 6 mg, Intravenous, Daily, 10 doses, First dose on Thu06/24/22 at 2230, Last dose on Thu07/03/22 at 1500, If giving intravenously, administer slowly over 1-4 minutes. 2314 (Given - Provider: Virginia Kendall RN) 1500 (Canceled Entry - Provider: Automatic Discharge Provider - Comment: Automatically canceled at discontinue of medication order) dexamethasone (DECADRON) tablet 6 mg(Linked Group 1) 6 mg, Oral, Daily, 10 doses, First dose on Thu06/24/22 at 2230, Last dose on Thu07/03/22 at 1500 2314 (See Alternative - Provider: Virginia Kendall RN) 1500 (Canceled Entry - Provider: Automatic Discharge Provider - Comment: Automatically canceled at discontinue of medication order) famotidine (PEPCID) tablet 10 mg(Linked Group 2) 10 mg, Oral, Daily, First dose (after last modification) on Thu06/26/22 at 0900, Until Discontinued famotidine (PF) (PEPCID) injection 10 mg(Linked Group 2) 10 mg, Intravenous, Daily, First dose (after last modification) on Thu06/26/22 at 0900, Until Discontinued, Give if unable to take PO. Renal dose adjustment per P&T protocol IV Push over 2 minutes famotidine (PF) (PEPCID) injection 20 mg (CANCELED) 20 mg, Intravenous, Daily, First dose (after last reorder) on Thu06/25/22 at 0900, Until Discontinued, Give if unable to take PO. Renal dose adjustment per P&T protocol IV Push over 2 minutes 921 (Given - Provid er: Karla Alexandre RN) heparin (porcine) injection 5,000 Units(Linked Group 3) 5,000 Units, Subcutaneous, Every 12 hours scheduled (2 times per day), First dose on Thu06/24/22 at 2215, Until Discontinued 2316 (Given - Provider: Virginia Kendall RN) 0922 (Given - Provider: Karla Alexandre RN) heparin lock flush 10 UNIT/ML injection 30 Units 30 Units, Intracatheter, Daily, First dose on Thu06/25/22 at 1030, Until Discontinued 1037 (Not Given - Provider: Karla Alexandre RN - Reason: Other - Comment: PICC line not yet placed) insulin lispro (HUMALOG) injection 0-14 Units 0-14 Units, Subcutaneous, Every 6 hours, First dose on Thu06/25/22 at 0900, Until Discontinued, Blood Glucose (SENSITIVE Dosing): [Less than 70: Initiate Hypoglycemia Standing Orders] [71-140: 0 units] [141-180: 2 units] [181-220: 4 units] [221-260: 6 units] [261-300: 8 units] [301-350: 10 units] [351-400: 12 units] [Greater than 400: 14 units and Call Physician] 1022 (Given - Provid er: Karla Alexandre RN)1500 (Canceled Entry - Provider: Automatic Discharge Provider - Comment: Automatically canceled at discontinue of medication order) insulin lispro (HUMALOG) injection 0-7 Units (CANCELED)(Linked Group 4) 0-7 Units, Subcutaneous, Nightly at bedtime, First dose on Thu06/24/22 at 2215, Until Discontinued, Blood Glucose (SENSITIVE Dosing): [Less than 70:? Initiate Hypoglycemia Standing Orders] [71-180: ? 0 units] [181-220:? 2 units] [221-260:? 3 units] [261-300:? 4 units] [301-350:? 5 units] [351-400:? 6 units] [Greater than 400:? 7 units and Call Physician] 2329 (Given - Provider: Virginia Kendall RN) remdesivir (VEKLURY) 100 mg in sodium chloride 0.9 % 270 mL IV(Linked Group 5) 100 mg, Intravenous, at 270 mL/hr, Every 24 hours, 4 doses, First dose on Thu06/26/22 at 0900, Last dose on Thu06/29/22 at 0900, Do not administer simultaneously with any other medications. If patient experiences HR < 50 bpm while on remdesivir, stop infusion and notify provider. If other signs and symptoms of a clinically significant infusion reaction occur, immediately stop administration and notify provider for further instructions. Flush with at least 30mL normal saline after infusion to ensure all drug administered remdesivir (VEKLURY) 200 mg in sodium chloride 0.9 % 290 mL IV (COMPLETED)(Linked Group 5) 200 mg, Intravenous, at 290 mL/hr, Once, 1 dose, On Thu06/24/22 at 2215, Do not administer simultaneously with any other medications. If patient experiences HR < 50 bpm while on remdesivir, stop infusion and notify provider. If other signs and symptoms of a clinically significant infusion reaction occur, immediately stop administration and notify provider for further instructions. Flush with at least 30mL normal saline after infusion to ensure all drug administered 0921 (New Bag - Prov ider: Karla Alexandre RN)1037 (Infusion Stop Time - Provider: Karla Alexandre RN) sodium chloride (PF) 0.9 % flush 3-10 mL 3-10 mL, Intravenous, Every 24 hours, 5 doses, First dose on Tu06/24/22 at 2315, Last dose on 06/28/22 at 2315, Flush after remdesivir doses to ensure all drug is administered. 1037 (Not Given - Provider: Karla Alexandre RN - Reason: Other) sodium chloride 0.9% bolus infusion 1,000 mL (COMPLETED) 1,000 mL, Intravenous, Administer over 30 Minutes, Once, 1 dose, On Thu06/25/22 at 0830 0815 (New Bag - Prov ider: Karla Alexandre RN)0921 (Infusion Stop Time - Provider: Karla Alexandre RN) sodium chloride 0.9% bolus infusion 1,000 mL (COMPLETED) 1,000 mL, Intravenous, Administer over 30 Minutes, Once, 1 dose, On Thu06/25/22 at 0945 0928 (New Bag - Prov ider: Karla Alexandre RN)1039 (Infusion Stop Time - Provider: Karla Alexandre RN) Continuous Medication Order 06/23/2022 06/24/2022 06/25/2022 norepinephrine (LEVOPHED) 4 mg in dextrose 5 % 250 mL (0.016 mg/mL) infusion 0.5-60 mcg/min (1.875-225 mL/hr, rounded to 1.88-225 mL/hr), Intravenous, Continuous, Starting on Thu06/25/22 at 0945, Until Thu06/25/22 at 1651, INITIAL RATE: 2mcg TITRATE according to MAP: - If MAP is 60-65 ----- 2 mcg/min every 10 min - If MAP is 55-59 ----- 5 mcg/min every 5 min - If MAP is 50-54 ----- 5 mcg/min every 2 min - If MAP is LESS than 50 ------ 5 mcg/min every 1 min MAP Goal:65 NOTIFY PROVIDER if max rate of 60 mcg/min reached and/or SBP LESS than 90 mmHg or MAP LESS than 55 mmHg despite 3 upward titrations NOTIFY PROVIDER if SBP GREATER than 150 mmHg for 3 consecutive readings despite weaning rate. The order in which vasopressors are to be discontinued will be dictated by physician. 1031 (New Bag - Prov ider: Karla Alexandre RN)1043 (Rate/Dose Change - Provider: Karla Alexandre RN - Comment: BP 81/33 (56))1054 (Rate/Dose Change - Provider: Karla Alexandre RN - Comment: BP 126/43 (70) - drop to 6mcg/min per Hailee Moreno)1102 (Rate/Dose Change - Provider: Karla Alexandre RN - Comment: BP 107/43 (69) - increase back to 7mcg/min per Josh COMPENSATION AND BENEFITS ANALYST) sodium chloride 0.9% infusion at 100 mL/hr, Intravenous, Continuous, Starting on Thu06/25/22 at 0930, Until Thu06/25/22 at 1651 1038 (New Bag - Prov ider: Karla Alexandre RN) PRN Medication Order 06/23/2022 06/24/2022 06/25/2022 acetaminophen (TYLENOL) 325 MG/10.15ML solution 1,000 mg(Linked Group 6) 1,000 mg, Oral, Every 6 hours PRN, Mild pain (Scale 1 - 3), Fever, Temp greater than 99 F (37 C), Starting on Thu06/24/22 at 2204, Until Thu06/25/22 at 165, Give if unable to swallow tablets/capsules or if patient prefers liquid. Maximum dose of acetaminophen is 4000 mg from all sources in 24 hours. acetaminophen (TYLENOL) suppository 650 mg(Linked Group 6) 650 mg, Rectal, Every 4 hours PRN, Mild pain (Scale 1 - 3), Fever, Temp greater than 99 F (37 C), Starting on Thu06/24/22 at 2204, Until Thu06/25/22 at 1651, Give if unable to take PO. Maximum dose of acetaminophen is 4000 mg from all sources in 24 hours. acetaminophen (TYLENOL) tablet 1,000 mg(Linked Group 6) 1,000 mg, Oral, Every 6 hours PRN, Mild pain (Scale 1 - 3), Fever, Temp greater than 99 F (37 C), Starting on Thu06/24/22 at 2204, Until Thu06/25/22 at 165, Maximum dose of acetaminophen is 4000 mg from all sources in 24 hours. albuterol sulfate HFA 108 (90 Base) MCG/ACT inhaler 2 puff 2 puff, Inhalation, Every 4 hours PRN, Shortness of breath, Starting on Thu06/24/22 at 2205, Until Thu06/25/22 at 165 artificial tears (LUBRIFRESH PM) ophthalmic ointment Both Eyes, As needed, dryness, Starting on Thu06/25/22 at 0811, Until Thu06/25/22 at 1650 dextrose (GLUTOSE) 40 % oral gel 37.5-75 g 37.5-75 g (15-30 g of dextrose), Oral, As needed, Low blood sugar, Starting on Thu06/24/22 at 2206, Until Thu06/25/22 at 165, If patient is verbally responsive and taking thickened liquids or oral medications: Blood glucose less than 50 mg/dL - give 30 g of dextrose; repeat until blood glucose reaches 70 mg/dL Blood glucose 50-69 mg/dL - give 15 g of dextrose; repeat until blood glucose reaches 70 mg/dL 37.5 g of glucose gel = 15 g of dextrose dextrose 10 % bolus infusion 125-250 mL 125-250 mL, Intravenous, Administer over 15 Minutes, As needed, Low Blood Sugar, Starting on Thu06/24/22 at 2206, Until Thu06/25/22 at 165, If patient is verbally responsive and NPO or unable to swallow: Blood glucose less than 50 mg/dL - give 250 mL (25 g) and repeat until blood glucose reaches 70 mg/dL Blood glucose 50-69 mg/dL - give 125 mL (12.5 g) and repeat until blood glucose reaches 70 mg/dL If patient is verbally Unresponsive and NPO or unable to swallow: Blood glucose less than 70 mg/dL - give 250 mL (25 g), repeat until blood glucose reaches 70 mg/dL glucagon injection 1 mg 1 mg, Intramuscular, Once as needed, Other, Low blood sugar, 1 dose, Starting on Thu06/24/22 at 2206, Until Thu06/25/22 at 1651, If patient is verbally UNresponsive and no IV access with blood glucose less than 70 mg/dL. Do NOT repeat administration. guaiFENesin (ROBITUSSIN) 100 MG/5ML solution 5 mL 5 mL, Oral, Every 6 hours PRN, Cough, Starting on Thu06/24/22 at 2205, Until Thu06/25/22 at 1651 heparin lock flush 10 UNIT/ML injection 30 Units 30 Units, Intracatheter, As needed, Line care, after blood draws, Starting on Thu06/25/22 at 1009, Until Thu06/25/22 at 165 iopamidol (ISOVUE-370) 76 % injection 50 mL (COMPLETED) 50 mL, Intravenous, IMG once as needed, Contrast, 1 dose, Starting on Thu06/25/22 at 0404, Until Thu06/25/22 at 0404 0404 (Given - Provid er: Gregg Field, RTR) ondansetron (ZOFRAN) injection 4 mg(Linked Group 7) 4 mg, Intravenous, Every 8 hours PRN, Nausea, Vomiting, Starting on Thu06/24/22 at 2204, Until Thu06/25/22 at 165, IV push over 2-5 minutes. If patient unable to tolerate PO. ondansetron (ZOFRAN-ODT) disintegrating tablet 4 mg(Linked Group 7) 4 mg, Oral, Every 8 hours PRN, Nausea, Vomiting, Starting on Thu06/24/22 at 2204, Until Thu06/25/22 at 1651 Linked Groups Order Group 1: dexamethasone (DECADRON) injection 6 mgJump to med 6 mg, Intravenous, Daily, 10 doses, First dose on Thu06/24/22 at 2230, Last dose on Thu07/03/22 at 1500, If giving intravenously, administer slowly over 1-4 minutes. Or dexamethasone (DECADRON) tablet 6 mgJump to med 6 mg, Oral, Daily, 10 doses, First dose on Thu06/24/22 at 2230, Last dose on Thu07/03/22 at 1500 Group 2: famotidine (PF) (PEPCID) injection 10 mgJump to med 10 mg, Intravenous, Daily, First dose (after last modification) on Thu06/26/22 at 0900, Until Discontinued, Give if unable to take PO. Renal dose adjustment per P&T protocol IV Push over 2 minutes Or famotidine (PEPCID) tablet 10 mgJump to med 10 mg, Oral, Daily, First dose (after last modification) on Thu06/26/22 at 0900, Until Discontinued Group 3: heparin (porcine) injection 5,000 UnitsJump to med 5,000 Units, Subcutaneous, Every 12 hours scheduled (2 times per day), First dose on Thu06/24/22 at 2215, Until Discontinued And Moderate Risk for VTE (COMPLETED) Group 4: insulin lispro (HUMALOG) injection 0-14 Units (CANCELED) 0-14 Units, Subcutaneous, 3 times daily before meals, First dose on Thu06/25/22 at 0700, Until Discontinued, Blood Glucose (SENSITIVE Dosing): [Less than 70:? Initiate Hypoglycemia Standing Orders] [71-140: 0 units] [141-180: 2 units] [181-220: 4 units] [221-260: 6 units] [261-300: 8 units] [301-350: 10 units] [351-400: 12 units] [Greater than 400: 14 units and Call Physician] And insulin lispro (HUMALOG) injection 0-7 Units (CANCELED)Jump to med 0-7 Units, Subcutaneous, Nightly at bedtime, First dose on Thu06/24/22 at 2215, Until Discontinued, Blood Glucose (SENSITIVE Dosing): [Less than 70:? Initiate Hypoglycemia Standing Orders] [71-180: ? 0 units] [181-220:? 2 units] [221-260:? 3 units] [261-300:? 4 units] [301-350:? 5 units] [351- 400:? 6 units] [Greater than 400:? 7 units and Call Physician] Group 5: remdesivir (VEKLURY) 200 mg in sodium chloride 0.9 % 290 mL IV (COMPLETED)Jump to med 200 mg, Intravenous, at 290 mL/hr, Once, 1 dose, On Thu06/24/22 at 2215, Do not administer simultaneously with any other medications. If patient experiences HR < 50 bpm while on remdesivir, stop infusion and notify provider. If other signs and symptoms of a clinically significant infusion reaction occur, immediately stop administration and notify provider for further instructions. Flush with at least 30mL normal saline after infusion to ensure all drug administered Followed by remdesivir (VEKLURY) 100 mg in sodium chloride 0.9 % 270 mL IVJump to med 100 mg, Intravenous, at 270 mL/hr, Every 24 hours, 4 doses, First dose on Nichole 06/26/22 at 0900, Last dose on 06/29/22 at 0900, Do not administer simultaneously with any other medications. If patient experiences HR < 50 bpm while on remdesivir, stop infusion and notify provider. If other signs and symptoms of a clinically significant infusion reaction occur, immediately stop administration and notify provider for further instructions. Flush with at least 30mL normal saline after infusion to ensure all drug administered Group 6: acetaminophen (TYLENOL) tablet 1,000 mgJump to med 1,000 mg, Oral, Every 6 hours PRN, Mild pain (Scale 1 - 3), Fever, Temp greater than 99 F (37 C), Starting on Thu06/24/22 at 2204, Until Thu06/25/22 at 1651, Maximum dose of acetaminophen is 4000 mg from all sources in 24 hours. Or acetaminophen (TYLENOL) suppository 650 mgJump to med 650 mg, Rectal, Every 4 hours PRN, Mild pain (Scale 1 - 3), Fever, Temp greater than 99 F (37 C), Starting on Thu06/24/22 at 2204, Until Thu06/25/22 at 1651, Give if unable to take PO. Maximum dose of acetaminophen is 4000 mg from all sources in 24 hours. Or acetaminophen (TYLENOL) 325 MG/10.15ML solution 1,000 mgJump to med 1,000 mg, Oral, Every 6 hours PRN, Mild pain (Scale 1 - 3), Fever, Temp greater than 99 F (37 C), Starting on Thu06/24/22 at 2204, Until Thu06/25/22 at 1651, Give if unable to swallow tablets/capsules or if patient prefers liquid. Maximum dose of acetaminophen is 4000 mg from all sources in 24 hours. Group 7: ondansetron (ZOFRAN-ODT) disintegrating tablet 4 mgJump to med 4 mg, Oral, Every 8 hours PRN, Nausea, Vomiting, Starting on Thu06/24/22 at 2204, Until Thu06/25/22 at 1651 Or ondansetron (ZOFRAN) injection 4 mgJump to med 4 mg, Intravenous, Every 8 hours PRN, Nausea, Vomiting, Starting on Thu06/24/22 at 2204, Until Thu06/25/22 at 1651, IV push over 2-5 minutes. If patient unable to tolerate PO. documented in this encounter Care Teams Intermediate Card Tender Relationship Specialty Start Date End Date None, Provider, PCP - General 06/24/22 documented as of this encounter
--- OUTSIDE RECORDS SUMMARY | 2024-09-21 01:13 | XMS_ITS | Encounter Summary ---
Author Organization [facility] Address [facility] [facility] [address] [place] [address] Care Team Providers Care Survey Research Center Director Name Role Phone Yolanda Dorsey BREAKFAST BAR ATTENDANT Unavailable Chris Higgins MD Primary Care Provider [phone] Giovanna Buck BREAKFAST BAR ATTENDANT Unavailable Jayesh Lara DO Unavailable Encounter Details Date Type Department Care Team (Late st Contact Info) Description 01/22/2021 Chart Prep [facility] [address] [place] [id number] Yolanda Dorsey, BREAKFAST BAR ATTENDANT [address] [address] Social History Tobacco Use Types Packs/Day Years Used Date Smoking Tobacco: Unknown Smokeless Tobacco: Former Comments Unknown Sex and Gender Information Value Date Recorded Sex Assigned at Not on file Legal Sex Female 10:25 PM CDT Gender Identity Not on file Sexual Orientation Not on file documented as of this encounter Functional Status * RETIRED Are you deaf or do you have serious difficulty hearing Answer Date of Assessment Author Status No 07/29/2020 8:15 PM PER DIEM INTERPRETER Activ e * RETIRED Are you blind or do you have serious difficulty seeing, even when wearing glasses? Answer Date of Assessment Author Status No 07/29/2020 8:15 PM PER DIEM INTERPRETER Activ e * Do you have serious difficulty walking or climbing stairs? Answer Date of Assessment Author Status Yes 07/29/2020 8:15 PM PER DIEM INTERPRETER Nirali Lyons R N Active * Do you have difficulty dressing or bathing? Answer Date of Assessment Author Status Yes 07/29/2020 8:15 PM PER DIEM INTERPRETER Nirali Lyons R N Active * Because of a physical, mental, or emotional condition, do you have difficulty doing errands alone such as visiting a doctor's office or shopping? Answer Date of Assessment Author Status Yes 07/29/2020 8:15 PM Nirali Jacome R N Active documented as of this [...] on filedocumented in this encounter Care Teams Survey Research Center Director Relationship Specialty Start Date End Date Chris Higgins MD PCP - General HOSPITALIST 12/13/20 01/23/21 Yolanda Dorsey NP Nurse Practitioner Nurse Practitioner Family 02/24/20 01/23/21 Giovanna Buck NP Nurse Practitioner NURSE PRACTITIONER 12/13/20 01/23/21 Jayesh Lara DO Consulting Physician INTERNAL MEDICINE 12/13/20 1 documented as of this encounter
--- OUTSIDE RECORDS SUMMARY | 2024-09-21 01:13 | XMS_ITS | Encounter Summary ---
Author Organization [facility] Address [facility] [facility] [place] [address] [place] [address] Care Team Providers Care Cloth Worker Name Role Phone Unavailable Primary Care Provider Unavailabl e Reason for Visit * Reason Onset Date Comments Longterm Discharge 01/24/2021 Encounter Details Date Type Department Care Team (Latest Contact Info) Description 01/24/2021 SOLE RUFFER ONLY [facility] [address] [place] [address] [address] [place], [place] [address] Chris Higgins MD [address] [place] [address] Longterm Discharge Social History Tobacco Use Types Packs/Day Years [...] Assessment Author Status No 07/29/2020 8:15 PM RESEARCHER Activ e * RETIRED Are you blind or do you have serious difficulty seeing, even when wearing glasses? Answer Date of Assessment Author Status No 07/29/2020 8:15 PM RESEARCHER Activ e * Do you have serious difficulty walking or climbing stairs? Answer Date of Assessment Author Status Yes 07/29/2020 8:15 PM RESEARCHER Nirali Lyons R N Active * Do you have difficulty dressing or bathing? Answer Date of Assessment Author Status Yes 07/29/2020 8:15 PM RESEARCHER Nirali Lyons R N Active * Because of a physical, mental, or emotional condition, do you have difficulty doing errands alone such as visiting a doctor's office or shopping? Answer Date of Assessment Author Status Yes 07/29/2020 8:15 PM RESEARCHER Nirali Lyons R N Active documented as of this encounter Mental Status * Because of a physical, mental, or emotional condition, do you have serious difficulty concentrating, remembering, or making decisions? Answer Entry Date Author Status Yes 07/29/2020 8:15 PM RESEARCHER Nirali Lyons R N Active documented in this encounter Progress Notes * Savanah Mehta LPN - 01/24/2021 2:18 PM CDT Patient discharged from [facility] to [facility] on 01/24/2021 with orders to follow up with PCP x1-2 weeks and continue current medications. Patient is no longer a patient of the [facility] Program. documented in this encounter Plan of Treatment Not on file documented as of this encounter Goals Goal Patient Goal Type Associated Problems Recent Progress Patient-Stated? Author Establish Plan for Regular Lab Work General No Marlys Sam RN documented as of this encounter Visit Diagnoses Not on filedocumented in this encounter
--- OUTSIDE RECORDS SUMMARY | 2024-09-21 01:13 | XMS_ITS | Encounter Summary ---
Author Organization [facility] Address [facility] [place] [address] [place] [address] Care Team Providers Care Circuit Breaker Mechanic Name Role Phone Yolanda Dorsey EDITOR TRADE JOURNAL Unavailable Chris Higgins MD Primary Care Provider [phone] Giovanna Buck EDITOR TRADE JOURNAL Unavailable Jayesh Lara DO Unavailable Reason for Visit * Reason Comments Intermediate Arease on vaginal wa ll Encounter Details Date Type Department Care Team (Late st Contact Info) Description 01/08/2021 9:20 AM CDT Intermediate [facility] [address] [place] [id number] Yolanda Dorsey NP [address] [address] Intermediate (Arease on vaginal wall) Social History Tobacco Use Types Packs/Day Years [...] Reading Time Taken Comments Blood Pressure 126/70 01/08/2021 10:19 AM CDT Pulse 68 01/08/2021 10:19 AM CDT Temperature 36.9 ??C (98.4 ??F) 01/08/2021 10:19 AM C DT Respiratory Rate 20 01/08/2021 10:19 AM CDT Oxygen Saturation 94% 01/08/2021 10:19 AM CDT Inhaled Oxygen Concentration - - Weight - - Height - - Body Mass Index - - documented in this encounter Functional Status * RETIRED Are you deaf or do you have serious difficulty hearing Answer Date of Assessment Author Status No 07/29/2020 8:15 PM MANUFACTURING ENGINEER PAINT Activ e * RETIRED Are you blind or do you have serious difficulty seeing, even when wearing glasses? Answer Date of Assessment Author Status No 07/29/2020 8:15 PM MANUFACTURING ENGINEER PAINT Activ e * Do you have serious difficulty walking or climbing stairs? Answer Date of Assessment Author Status Yes 07/29/2020 8:15 PM MANUFACTURING ENGINEER PAINT Nirali Lyons R N Active * Do you have difficulty dressing or bathing? Answer Date of Assessment Author Status Yes 07/29/2020 8:15 PM MANUFACTURING ENGINEER PAINT Nirali Lyons R N Active * Because of a physical, mental, or emotional condition, do you have difficulty doing errands alone such as visiting a doctor's office or shopping? Answer Date of Assessment Author Status Yes 07/29/2020 8:15 PM MANUFACTURING ENGINEER PAINT Nirali Lyons R N Active documented as of this encounter Mental Status * Because of a physical, mental, or emotional condition, do you have serious difficulty concentrating, remembering, or making decisions? Answer Entry Date Author Status Yes 07/29/2020 8:15 PM MANUFACTURING ENGINEER PAINT Nirali Lyons R N Active documented in this encounter Progress Notes * Yolanda Pryor NP - 01/08/2021 9:20 AM CDT Images from the original note were not included. Reason for Visit: Intermediate (Arease on vaginal wall) History of Present Illness: Emelina Santoyo is an 80-year-old female who was seen today for an acute visit. Nurse reports other staff has noted a white area in patient's vagina. Nurse has not seen area but reports patient has no complaints of pain, no discharge or odor in yuri area. Patient is unaware of area and has no complaints. She was on antibiotics a few months ago. She does not recall having this problem before. ROS: Review of Systems Constitutional: Negative for chills, fever and malaise/fatigue. HENT: Negative for hearing loss. Respiratory: Negative for cough. Cardiovascular: Negative for chest pain. Gastrointestinal: Negative for abdominal pain and vomiting. Genitourinary: Negative for dysuria, hematuria and urgency. Musculoskeletal: Negative for joint pain. Skin: Negative for itching and rash. Neurological: Positive for weakness. Negative for dizziness and seizures. Psychiatric/Behavioral: Positive for memory loss. Negative for depression. The patient does not have insomnia. Medications: Current Outpatient [...] Rfl: ??? Cholecalciferol (VITAMIN D3) 250 MCG (80345 UT) Tab, Take 1 tablet by mouth daily., Disp: , Rfl: ??? cranberry 450 MG Tab tablet, Take 450 mg by mouth daily., Disp: , Rfl: ??? cyanocobalamin 1000 MCG/ML injection, Inject 1 mL into the muscle monthly. Give on of month, Disp: , Rfl: ??? donepezil [...] 351-400= 10 units >400= 12 units notify , Disp: , Rfl: ??? insulin glargine 100 [...] ??? Chronic indwelling Zhang catheter Filed Vitals: 01/08/21 1019 BP: 126/70 Pulse: 68 Resp: 20 Temp: 98.4 ??F (36.9 ??C) SpO2: 94% Physical Exam Constitutional: She appears well-developed and well-nourished. Cardiovascular: Normal rate, regular rhythm and normal heart sounds. Pulmonary/Chest: Effort normal and breath sounds normal. No respiratory distress. Genitourinary: Pelvic exam was performed with patient prone. No vaginal discharge, erythema, tenderness or bleeding. No erythema, tenderness or bleeding in the vagina. Neurological: She is alert. She is disoriented. Coordination and gait (wheelchair) abnormal. Skin: Skin is warm and dry. Psychiatric: She has a normal mood and affect. Her speech is delayed. She is slowed and withdrawn. Cognition and memory are impaired. She expresses inappropriate judgment. She exhibits abnormal recent memory. She is inattentive. Diagnoses/Impression: 1. Candidiasis of vagina - Monistat 7, apply applicatorful PV QHS x 7 days. 2. Late onset Alzheimer's disease without behavioral disturbance ([facility]) Recommendations and Plan: Changes made as described above. Staff to continue to monitor and report any changes. Follow up in one month unless necessary sooner. Yolanda Pryor NP documented in this encounter Plan of Treatment Not on file documented as of this encounter Goals Goal Patient Goal Type Associated Problems Recent Progress Patient-Stated? Author Establish Plan for Regular Lab Work General No Marlys Sam RN documented as of this encounter Visit Diagnoses Diagnosis Candidiasis of vagina- Primary Candidiasis of vulva and vagina Late onset Alzheimer's disease without behavioral disturbance (CMS/HCC [facility]) documented in this encounter Care Teams Circuit Breaker Mechanic Relationship Specialty Start Date End Date Chris Higgins MD PCP - General HOSPITALIST 12/13/20 01/23/21 Yolanda Dorsey NP Nurse Practitioner Nurse Practitioner Family 02/24/20 01/23/21 Giovanna Buck NP Nurse Practitioner NURSE PRACTITIONER 12/13/20 01/23/21 Jayesh Lara DO Consulting Physician INTERNAL MEDICINE 12/13/20 1 documented as of this encounter
--- OUTSIDE RECORDS SUMMARY | 2024-09-21 01:13 | XMS_ITS | Clinical Summary ---
Author Organization [facility] Address [address] [place] [address] [place] [address] Care Team Providers Care Marine Safety Officer Name Role Phone None, Provider MD Primary Care Provider Unavaila ble Allergies Active Allergy Reactions Criticality Noted Date Comments Metronidazole Unknown 08/10/2013 Medications cranberry 450 MG Tab tablet Take 450 mg by mouth daily. Active artificial tears (LUBRIFRESH PM) 83-15 % ophthalmic ointment Place into both eyes as needed (dryness). 1 g 2 Active albuterol sulfate HFA 108 (90 Base) MCG/ACT inhaler Inhale 2 puffs into the lungs every 4 (four) hours as needed for Shortness of breath. 1 g 2 Active ampicillin-sul bactam 3 g in sodium chloride 0.9 % SOLN 100 mL Inject 3 g into the vein every 12 (twelve) hours. 3 g 2 Active dexamethasone (DECADRON) 4 MG/ML injection Inject 1.5 mLs (6 mg total) into the vein daily. 1 mL 2 Active dextrose (GLUTOSE) 40 % oral gel Take 37.5 g by mouth as needed for Low blood sugar. 37.5 g 2 Active famotidine, PF, (PEPCID) 20 MG/2ML injection Inject 1 mL (10 mg total) into the vein daily. 20 mL 2 Active heparin lock flush 10 UNIT/ML injection 3 mLs (30 Units total) by Intracatheter route daily. 1 mL 2 Active remdesivir 100 mg in sodium chloride 0.9 % SOLN 270 mL Inject 100 mg into the vein daily. 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 2020 Hyperkalemia 08/24/2020 Paronychia of great toe of left foot 08/17/2020 Hypernatremia 07/29/2020 Functional diarrhea 06/06/2019 Pressure injury of coccygeal region, stage 2 ([facility]) 09/01/2018 Full incontinence of feces 11/19/2014 Urinary incontinence 11/19/2014 Vitamin D deficiency 01/09/2014 Type 2 diabetes mellitus wit h diabetic polyneuropathy, without long-term current use of insulin ([facility]) 11/15/2013 Generalized multiple sclerosis ([facility]) 08/18/2013 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 ([facility]) 08/10/2013 Hyperlipidemia 08/10/2013 Hypertension 08/10/2013 Insomnia 08/10/2013 Resolved Problems Problem Noted Date Diagnosed Date Resolved Date Cholecystitis, unspecified 02/09/2019 0 05/10/2019 Immunizations Name Administration Dates Next Due Fluzone High Dose - >Age 65 (Prefilled Syringe) 08/01/2019 Influenza (Generic) 07/17/2020 Influenza Adult (Generic) 07/21/2018 Social History Tobacco Use Types Packs/Day Years Used Date Smoking Tobacco: Every Day Cigarettes Smokeless Tobacco: Former Comments Unknown Sex and Gender Information Value Date Recorded Sex Assigned at Not on file Legal Sex Female 10:25 PM CDT Gender Identity Not on file Sexual Orientation Not on file Last Filed Vital Signs Vital Sign Reading [...] Mass Index 24.53 06/24/2022 7:59 PM CDT Plan of Treatment Health Maintenance Due Date Last Done Comments Kidney Health Evaluation 1942 Pneumococcal Vaccine: 65+ Years (1 of 2 - PCV) 1948 Diabetes: Retinopathy Eye Exam 1960 DTaP, Tdap and Td Vaccines (1 - Tdap) 1961 Zoster Vaccines (1 of 2) 1992 Annual Medicare Wellness Visit 2007 Dexa Scan (General) 2007 RSV Immunization or 60+ Years (1 - 1-dose 75+ series) 2017 Hemoglobin A1C 03/15/2021 09/14/2020, 05/29, 03/02/2020, Additional history exists Lipid Panel 11/19/2021 11/19/2020, 01/2020, 03/02/2020, Additional history exists COVID-19 Vaccine (2023- season) 2024 Influenza Adult (#1) 2024 07/17/2020, 08/01/2019, 07/21/2018 Meningococcal Vaccine Aged Out No sunil elina eligible based on patient's age to complete this topic RSV Immunizations Under 20 Months Aged Out No longer eligible based on patient's age to complete this topic Goals Goal Patient Goal Type Associated Problems Recent Progress Patient-Stated? Author Establish Plan for Regular Lab Work General No Marlys Sam tuyere fitter Procedure Name Priority Date/Time Associated Diagnosis Comments LIPID PANEL Routine 11/19/2020 12:02 PM DOCTOR OF NURSE ANESTHESIA PRACTICE Hyperlipemia HEMOGLOBIN, GLYCOSYLATED Routine 09/14/2020 11:05 AM DOCTOR OF NURSE ANESTHESIA PRACTICE Diabetes mellitus ([facility]) from Last 3 Months or Most Recently Relevant to Health Maintenance Results * (ABNORMAL) LIPID PANEL (11/19/2020 12:02 PM DOCTOR OF NURSE ANESTHESIA PRACTICE) [facility] Signature CHOLESTEROL 34 <200.0 MG/DL 11/19/2020 1:24 PM [facility] TRIGLYCERIDES 377(H) <150 MG/DL 11/19/2020 1:24 PM [facility] HDL 34(L) >40.0 MG/DL 11/19/2020 1:24 PM [facility] LDL (CALCULATED) NOT CALCULATED <100 MG/DL 11/19/2020 1:24 PM [facility] NON HDL CHOLESTEROL 0 <130 MG/DL 11/19/2020 1:24 PM [facility] CHOL/HDL RATIO 1.0 0.0 - 4.5 11/19/2020 1:24 PM [facility] VLDL CALCULATION 75(H) 5 - 55 MG/DL 11/19/2020 1:24 PM [facility] LIPID INTERPRETATION 11/19/2020 1:24 PM [facility] Comment: NIH CONCENSUS REPORT RECOMMENDATIONS: ?ADULT ?CHILD ??LOW RISK: ?CHOLESTEROL ? <200 ? <170 ?TRIGLYCERIDE ?<150 ?--- ?HDL ? >=60 ?--- ?LDL ? <100 ? <110 ??BORDERLINE: ?CHOLESTEROL ? 200-239 ?? 170-199 ?TRIGLYCERIDE ?150-199 ? --- ?HDL ?40-59 ?--- ?LDL ? 100-159 ?? 110-129 ??HIGH RISK: ?CHOLESTEROL ? >=240 ?>=200 ?TRIGLYCERIDE ?>=200 ? --- ?HDL ?<40 ?--- ?LDL ? >=160 ?>=130 11/19/2020 12:0 2 PM DOCTOR OF NURSE ANESTHESIA PRACTICE Jayesh Lara DO LABORATORY Final Result Performing Organization Address [facility] de Phone Number [facility] [address] [place] [address], [place] [phone] * (ABNORMAL) HEMOGLOBIN, GLYCOSYLATED (09/14/2020 11:05 AM DOCTOR OF NURSE ANESTHESIA PRACTICE) HGB A1C 7.8(H) <5.7 % 09/14/2020 2:02 PM DOCTOR OF NURSE ANESTHESIA PRACTICE [facility] Comment: INCREASED RISK OF DIABETES <5.7% ?NON-DIABETES 5.7-6.4% INCREASED RISK FOR FUTURE DIABETES > OR = 6.5 CONSISTENT WITH DIABETES STANDARDS OF MEDICAL CARE IN DIABETES-2010 DIABETES CARE, 33(SUPP 1): S1-S61,2010 09/14/2020 11:0 5 AM DOCTOR OF NURSE ANESTHESIA PRACTICE us Yolanda Dorsey INVESTMENT ASSOCIATE LABORATORY Final Result Performing Organization Address [facility] de Phone Number [facility] [address] [place] [address], [place] [phone] from Last 3 Months or Most Recently Relevant to Health Maintenance Insurance MEDICARE MEDICAID Advance Directives Documents on File Type Date Recorded Patient Asbestos Remover Expl anation Advance Directives and Living Will 06/25/2022 1:09 PM 06/25/2022 POLST Advance Directives and Living Will 07/30/2020 9:52 AM 03/27/2008 POA FOR HEALTHCARE Advance Directives and Living Will 11/02/2014 POWER OF FRONT OF HOUSE MANAGER * DNR (Latest Code Status on File) Date Activated Date Inactivated Comments 06/25/2022 10:25 AM 06/25/2022 4:51 PM * Full Code Date Activated Date Inactivated Comments 06/24/2022 10:05 PM 06/25/2022 10:25 AM * Full Code Date Activated Date Inactivated Comments 07/30/2020 2:02 PM 08/01/2020 1:09 PM * Full Code Date Activated Date Inactivated Comments 02/09/2019 8:24 AM 07/24/2020 7:53 PM Care Teams Marine Safety Officer Relationship Specialty Start Date End Date None, Provider, PCP - General 06/24/22
--- OUTSIDE RECORDS SUMMARY | 2024-09-21 01:13 | XMS_ITS | Encounter Summary ---
Author Organization [facility] Address [address] [place] [address] [place] [address] Care Team Providers Care Hand Ornament Maker Name Role Phone None, Provider Primary Care Provider Jorge bond Encounter Details Date Type Department Care Team (Late st Contact Info) Description 06/29/2022 Orders Only [facility] Emergency Room [address] [place] [address] Emergency, Nurse, RN Social History Tobacco Use Types Packs/Day Years [...] filedocumented in this encounter Care Teams Hand Ornament Maker Relationship Specialty Start Date End Date None, Provider, PCP - General 06/24/22 documented as of this encounter
--- OUTSIDE RECORDS SUMMARY | 2024-09-21 01:14 | XMS_ITS | Encounter Summary ---
Author Organization [facility] Address [address] [place] [address] [place] [address] Care Team Providers Care Group Marketing Vp Name Role Phone Yolanda Dorsey MANAGER DEMAND Unavailable Jayesh Lara DO Primary Care Provider Encounter Details Date Type Department Care Team (Late st Contact Info) Description 09/13/2020 Orders Only [facility] [address] [place] [address] Savanah Mehta LPN Social History Tobacco Use Types Packs/Day Years Used Date Smoking Tobacco: Unknown Comments Unknown Sex and Gender Information Value Date Recorded Sex Assigned at Not on file Legal Sex Female 10:25 PM CDT Gender Identity Not on file Sexual Orientation Not on file documented as of this encounter Functional Status * RETIRED Are you deaf or do you have serious difficulty hearing Answer Date of Assessment Author Status No 07/29/2020 8:15 PM CASTING AND LOCKER ROOM SERVICER Activ e * RETIRED Are you blind or do you have serious difficulty seeing, even when wearing glasses? Answer Date of Assessment Author Status No 07/29/2020 8:15 PM CASTING AND LOCKER ROOM SERVICER Activ e * Do you have serious difficulty walking or climbing stairs? Answer Date of Assessment Author Status Yes 07/29/2020 8:15 PM CASTING AND LOCKER ROOM SERVICER Nirali Lyons R N Active * Do you have difficulty dressing or bathing? Answer Date of Assessment Author Status Yes 07/29/2020 8:15 PM Nirali Jacome R N Active * Because of a [...] on filedocumented in this encounter Care Teams Group Marketing Vp Relationship Specialty Start Date End Date Jayesh Lara DO PCP - General INTERNAL MEDICINE 02/24/20 12/12/20 Yolanda Dorsey NP Nurse Practitioner Nurse Practitioner Family 02/24/20 01/23/21 documented as of this encounter
--- OUTSIDE RECORDS SUMMARY | 2024-09-21 01:14 | XMS_ITS | Encounter Summary ---
Author Organization [facility] Address [address] [place] [address] [place] [address] Care Team Providers Care Machine Hostler Name Role Phone Yolanda Dorsey SENIOR NET APPLICATION DEVELOPER Unavailable Jayesh Lara DO Primary Care Provider [phone] Encounter Details Date Type Department Care Team (Late st Contact Info) Description 09/17/2020 Orders Only [facility] [address] [place] [address] Savanah Mehta LPN Social History [...] Assessment Author Status No 07/29/2020 8:15 PM BUSINESS CONSULT Activ e * RETIRED Are you blind or do you have serious difficulty seeing, even when wearing glasses? Answer Date of Assessment Author Status No 07/29/2020 8:15 PM BUSINESS CONSULT Activ e * Do you have serious difficulty walking or climbing stairs? Answer Date of Assessment Author Status Yes 07/29/2020 8:15 PM BUSINESS CONSULT Lyons, Nirali K, R N Active * Do you have difficulty dressing or bathing? Answer Date of Assessment Author Status Yes 07/29/2020 8:15 PM Nirali Jacome R N Active * Because of a physical, mental, or emotional condition, do you have difficulty doing errands alone such as visiting a doctor's office or shopping? Answer Date of Assessment Author Status Yes 07/29/2020 8:15 PM Nirali Jacome, RN Active documented as of this encounter [...] as of this encounter Visit Diagnoses Diagnosis Type 2 diabetes mellitus with diabetic polyneuropathy, without long-term current use of insulin ([facility]) documented in this encounter Care Teams Machine Hostler Relationship Specialty Start Date End Date Jayesh Lara DO PCP - General INTERNAL MEDICINE 02/24/20 12/12/20 Yolanda Dosrey NP Nurse Practitioner Nurse Practitioner Family 02/24/20 01/23/21 documented as of this encounter
--- OUTSIDE RECORDS SUMMARY | 2024-09-21 01:14 | XMS_ITS | Encounter Summary ---
Author Organization [facility] Address [address] [place] [address] [place] [address] Care Team Providers Care Brim Stitcher Name Role Phone Yolanda Dorsey INSTRUCTOR ADJUNCT PHARMACY TECHNICIAN Unavailable Chris Higgins MD Primary Care Provider [phone] Giovanna Buck INSTRUCTOR ADJUNCT PHARMACY TECHNICIAN Unavailable [phone] Jayesh Lara DO Unavailable Encounter Details Date Type Department Care Team (Latest Contact Info) Description 12/17/2020 Scan HEALTH INFO SRVCS Scanned, Documents Social History Tobacco Use Types Packs/Day Years [...] Assessment Author Status No 07/29/2020 8:15 PM ELECTRIC METER REPAIRER Activ e * RETIRED Are you blind or do you have serious difficulty seeing, even when wearing glasses? Answer Date of Assessment Author Status No 07/29/2020 8:15 PM ELECTRIC METER REPAIRER Activ e * Do you have serious difficulty walking or climbing stairs? Answer Date of Assessment Author Status Yes 07/29/2020 8:15 PM Nirali Jacome R N Active * Do you have [...] on filedocumented in this encounter Care Teams Brim Stitcher Relationship Specialty Start Date End Date Chris Higgins MD PCP - General HOSPITALIST 12/13/20 01/23/21 Yolanda Dorsey NP Nurse Practitioner Nurse Practitioner Family 02/24/20 01/23/21 Giovanna Buck NP Nurse Practitioner NURSE PRACTITIONER 12/13/20 01/23/21 Jayesh Lara DO Consulting Physician INTERNAL MEDICINE 12/13/20 1 documented as of this encounter
--- OUTSIDE RECORDS SUMMARY | 2024-09-21 01:14 | XMS_ITS | Encounter Summary ---
Author Organization [facility] Address [address] [place] [address] [place] [address] Care Team Providers Care Sausage Stringer Name Role Phone Yolanda Dorsey PRECISION LENS GRINDER APPRENTICE Unavailable Jayesh Lara DO Primary Care Provider Encounter Details Date Type Department Care Team (Latest Contact Info) Description 10/09/2020 Scan HEALTH INFO SRVCS Scanned, Documents Social [...] Assessment Author Status No 07/29/2020 8:15 PM LASER BEAM CUTTER Activ e * RETIRED Are you blind or do you have serious difficulty seeing, even when wearing glasses? Answer Date of Assessment Author Status No 07/29/2020 8:15 PM LASER BEAM CUTTER Activ e * Do you have serious difficulty walking or climbing stairs? Answer Date of Assessment Author Status Yes 07/29/2020 8:15 PM LASER BEAM CUTTER Nirali Lyons R N Active * Do you have difficulty dressing or bathing? Answer Date of Assessment Author Status Yes 07/29/2020 8:15 PM LASER BEAM CUTTER Nirali Lyons R N Active * Because [...] on filedocumented in this encounter Care Teams Sausage Stringer Relationship Specialty Start Date End Date Jayesh Lara DO PCP - General INTERNAL MEDICINE 02/24/20 12/12/20 Yolanda Dorsey NP Nurse Practitioner Nurse Practitioner Family 02/24/20 01/23/21 documented as of this encounter
--- OUTSIDE RECORDS SUMMARY | 2024-09-21 01:14 | XMS_ITS | Encounter Summary ---
Author Organization [facility] Address [facility] [place] [address] [place] [address] Care Team Providers Care Associate Professor Of Biblical Studies Name Role Phone Yolanda Dorsey DIETARY WORKER Unavailable Jayesh Lara DO Primary Care Provider Reason for Visit * Reason Onset Date Comments Fax Documentation 09/17/2020 Encounter Details Date Type Department Care Team (Late st Contact Info) Description 09/17/[address] [facility] [address] [address] Yolanda Dorsey NP [address] [phone] Fax Documentation Social History Tobacco Use Types Packs/Day Years [...] Assessment Author Status No 07/29/2020 8:15 PM BACTERIOLOGY PROFESSOR Activ e * RETIRED Are you blind or do you have serious difficulty seeing, even when wearing glasses? Answer Date of Assessment Author Status No 07/29/2020 8:15 PM BACTERIOLOGY PROFESSOR Activ e * Do you have serious difficulty walking or climbing stairs? Answer Date of Assessment Author Status Yes 07/29/2020 8:15 PM BACTERIOLOGY PROFESSOR Nirali Lyons R N Active * Do you have difficulty dressing or bathing? Answer Date of Assessment Author Status Yes 07/29/2020 8:15 PM BACTERIOLOGY PROFESSOR Nirali Lyons R N Active * Because of a physical, mental, or emotional condition, do you have difficulty doing errands alone such as visiting a doctor's office or shopping? Answer Date of Assessment Author Status Yes 07/29/2020 8:15 PM BACTERIOLOGY PROFESSOR Nirali Lyons R N Active documented as of this encounter Mental Status * Because of a physical, mental, or emotional condition, do you have serious difficulty concentrating, remembering, or making decisions? Answer Entry Date Author Status Yes 07/29/2020 8:15 PM BACTERIOLOGY PROFESSOR Nirali Lyons R N Active documented in this encounter Progress Notes * Savanah Mehta LPN - 09/17/2020 2:04 PM CST Received fax from [facility]: Patient currently on 1000 units of Vitamin D capsules. Patient keeps spitting them out. Takes meds crushed. Can we get an order for crush Vitamin D. Orders: ok to change to Vitamin D tablet. ERIOLOGY PROFESSOR documented in this encounter Plan of Treatment Not on file documented as of this encounter Goals Goal Patient Goal Type Associated Problems Recent Progress Patient-Stated? Author Establish Plan for Regular Lab Work General No Marlys Sam RN documented as of this encounter Visit Diagnoses Not on filedocumented in this encounter Care Teams Associate Professor Of Biblical Studies Relationship Specialty Start Date End Date Jayesh Lara DO PCP - General INTERNAL MEDICINE 02/24/20 12/12/20 Yolanda Dorsey NP Nurse Practitioner Nurse Practitioner Family 02/24/20 01/23/21 documented as of this encounter
--- OUTSIDE RECORDS SUMMARY | 2024-09-21 01:14 | XMS_ITS | Encounter Summary ---
Author Organization [facility] Address [address] [facility] [place] [address] [place] [address] Care Team Providers Care Skull Splitter Name Role Phone Yolanda Dorsey SPRING SALVAGE WORKER Unavailable Jayesh Lara DO Primary Care Provider [phone] Reason for Visit * Reason Onset Date Comments Lab Results 11/20/2020 Lipid profile Encounter Details Date Type Department Care Team (Latest Contact Info) Description 11/20/2020 PEDIATRIC PHYSICIAN ONLY [facility] [address] [facility] [address] [place] [address] Yolanda Dorsey, SHANKAR [address] [address] Lab Results (Lipid profile ) Social History Tobacco Use Types Packs/Day Years [...] Assessment Author Status No 07/29/2020 8:15 PM HYDROLOGY TEACHER Activ e * RETIRED Are you blind or do you have serious difficulty seeing, even when wearing glasses? Answer Date of Assessment Author Status No 07/29/2020 8:15 PM HYDROLOGY TEACHER Activ e * Do you have serious difficulty walking or climbing stairs? Answer Date of Assessment Author Status Yes 07/29/2020 8:15 PM HYDROLOGY TEACHER Nirali Lyons R N Active * Do you have difficulty dressing or bathing? Answer Date of Assessment Author Status Yes 07/29/2020 8:15 PM HYDROLOGY TEACHER Nirali Lyons R N Active * Because of a physical, mental, or emotional condition, do you have difficulty doing errands alone such as visiting a doctor's office or shopping? Answer Date of Assessment Author Status Yes 07/29/2020 8:15 PM HYDROLOGY TEACHER Nirali Lyons R N Active documented as of this encounter Mental Status * Because of a physical, mental, or emotional condition, do you have serious difficulty concentrating, remembering, or making decisions? Answer Entry Date Author Status Yes 07/29/2020 8:15 PM HYDROLOGY TEACHER Nirali Lyons R N Active documented in this encounter Progress Notes * Savanah Mehta LPN - 11/20/2020 2:39 PM CST Yolanda Pryor APN reviewed Lipid panel results. Orders: Decrease Atorvastatin to 40mg PO daily and repeat Lipid panel in one year. OLOGY TEACHER documented in this encounter Plan of Treatment Not on file documented as of this encounter Goals Goal Patient Goal Type Associated Problems Recent Progress Patient-Stated? Author Establish Plan for Regular Lab Work General No Marlys Sam RN documented as of this encounter Visit Diagnoses Not on filedocumented in this encounter Care Teams Skull Splitter Relationship Specialty Start Date End Date Jayesh Lara DO PCP - General INTERNAL MEDICINE 02/24/20 12/12/20 Yolanda Dorsey NP Nurse Practitioner Nurse Practitioner Family 02/24/20 01/23/21 documented as of this encounter
--- OUTSIDE RECORDS SUMMARY | 2024-09-21 01:14 | XMS_ITS | Encounter Summary ---
Author Organization [facility] Address [facility] [place] [address] [place] [address] Care Team Providers Care Operator Lights Name Role Phone Yolanda Dorsey MEDICAL EXAMINER Unavailable Jayesh Lara DO Primary Care Provider [phone] Chris Higgins MD Primary Care Provider [phone] Giovanna Buck MEDICAL EXAMINER Unavailable [phone] Jayesh Lara DO Unavailable Reason for Visit * Reason Onset Date Comments Medication 11/29/2020 Encounter Details Date Type Department Care Team (Late st Contact Info) Description 11/29/2020 MUSIC THEORY TEACHER ONLY [address] [address] Yolanda Dorsey NP [address] [id number] Medication Social History Tobacco Use Types Packs/Day Years [...] Assessment Author Status No 07/29/2020 8:15 PM BAKERY ASSOCIATE Activ e * RETIRED Are you blind or do you have serious difficulty seeing, even when wearing glasses? Answer Date of Assessment Author Status No 07/29/2020 8:15 PM BAKERY ASSOCIATE Activ e * Do you have serious difficulty walking or climbing stairs? Answer Date of Assessment Author Status Yes 07/29/2020 8:15 PM BAKERY ASSOCIATE Nirali Lyons R N Active * Do you have difficulty dressing or bathing? Answer Date of Assessment Author Status Yes 07/29/2020 8:15 PM BAKERY ASSOCIATE Nirali Lyons R N Active * Because of a physical, mental, or emotional condition, do you have difficulty doing errands alone such as visiting a doctor's office or shopping? Answer Date of Assessment Author Status Yes 07/29/2020 8:15 PM BAKERY ASSOCIATE Nirali Lyons R N Active documented as of this encounter Mental Status * Because of a physical, mental, or emotional condition, do you have serious difficulty concentrating, remembering, or making decisions? Answer Entry Date Author Status Yes 07/29/2020 8:15 PM BAKERY ASSOCIATE Nirali Lyons, R N Active documented in this encounter Progress Notes * Savanah Mehta LPN - 12/14/2020 12:39 PM CDT Yolanda Pryor APN reviewed pharmacy recommendation: resident's Atorvastatin was decreased from 80mg daily to 40mg daily on 11/20/20. Lipid panel from - showed: Total cholesterol: 34, Triglycerides: 377, HDL: 34, and LDL: unable to calculate due to high triglycerides. Since triglycerides are still elevated even with statin therapy and blood sugars are fairly controlled, start Fish oil 1000mg BID to help lower elevated triglycerides? Orders: Agree with plan. documented in this encounter Plan of Treatment Not on file documented as of this encounter Goals Goal Patient Goal Type Associated Problems Recent Progress Patient-Stated? Author Establish Plan for Regular Lab Work General No Marlys Sam RN documented as of this encounter Visit Diagnoses Not on filedocumented in this encounter Care Teams Operator Lights Relationship Specialty Start Date End Date Jayesh Lara DO PCP - General INTERNAL MEDICINE 02/24/20 12/12/20 Chris Higgins MD PCP - General HOSPITALIST 12/13/20 01/23/21 Yolanda Dorsey NP Nurse Practitioner Nurse Practitioner [facility] 02/24/20 01/23/21 Giovanna Buck NP Nurse Practitioner NURSE PRACTITIONER 12/13/20 01/23/21 Jayesh Lara DO Consulting Physician INTERNAL MEDICINE 12/13/20 1 documented as of this encounter
--- OUTSIDE RECORDS SUMMARY | 2024-09-21 01:14 | XMS_ITS | Encounter Summary ---
Author Organization [facility] Address [facility] [place] [address] [place] [address] Care Team Providers Care Behavioral Consultant Name Role Phone Yolanda Dorsey BUYER PLANNER Unavailable Chris Higgins MD Primary Care Provider [phone] Giovanna Buck BUYER PLANNER Unavailable Jayesh Lara DO Unavailable Encounter Details Date Type Department Care Team (Late st Contact Info) Description 12/17/2020 Chart Prep [facility] [address] [facility] [address] [place], [place] [address] Chris Higgins MD [address] [place] [address] Social History Tobacco Use Types Packs/Day Years [...] Assessment Author Status No 07/29/2020 8:15 PM DENTAL MECHANIC Activ e * RETIRED Are you blind or do you have serious difficulty seeing, even when wearing glasses? Answer Date of Assessment Author Status No 07/29/2020 8:15 PM DENTAL MECHANIC Activ e * Do you have serious difficulty walking or climbing stairs? Answer Date of Assessment Author Status Yes 07/29/2020 8:15 PM DENTAL MECHANIC Nirali Lyons R N Active * Do you have difficulty dressing or bathing? Answer Date of Assessment Author Status Yes 07/29/2020 8:15 PM DENTAL MECHANIC Nirali Lyons R N Active * Because of a physical, mental, or emotional condition, do you have difficulty doing errands alone such as visiting a doctor's office or shopping? Answer Date of Assessment Author Status Yes 07/29/2020 8:15 PM DENTAL MECHANIC Nirali Lyons R N Active documented as of this encounter Mental Status * Because of a physical, mental, or emotional condition, do you have serious difficulty concentrating, remembering, or making decisions? Answer Entry Date Author Status Yes 07/29/2020 8:15 PM DENTAL MECHANIC Nirali Lyons R N Active documented in this encounter Plan of Treatment Not on file documented as of this encounter Goals Goal Patient Goal Type Associated Problems Recent Progress Patient-Stated? Author Establish Plan for Regular Lab Work General No Marlys Sam RN documented as of this encounter Visit Diagnoses Not on filedocumented in this encounter Care Teams Behavioral Consultant Relationship Specialty Start Date End Date Chris Higgins MD PCP - General HOSPITALIST 12/13/20 01/23/21 Yolanda Dorsey NP Nurse Practitioner Nurse Practitioner Family 02/24/20 01/23/21 Giovanna Buck NP Nurse Practitioner NURSE PRACTITIONER 12/13/20 01/23/21 Jayesh Lara DO Consulting Physician INTERNAL MEDICINE 12/13/20 1 documented as of this encounter
--- OUTSIDE RECORDS SUMMARY | 2024-09-21 01:14 | XMS_ITS | Encounter Summary ---
Author Organization [facility] Address [address] [facility] [place] [address] [place] [address] Care Team Providers Care Needle Loom Operator Name Role Phone Yolanda Dorsey RADAR SIGNAL PROCESSING ENGINEER Unavailable Jayesh Lara DO Primary Care Provider [phone] Encounter Details Date Type Department Care Team (Latest Contact Info) Description 09/14/2020 11:44 AM WHITE METAL CASTER - 09/14/2020 11:59 PM [facility] Encounter [facility] [address] [place], [place] [id number] Yolanda Dorsey, SHANKAR [address] [address] Discharge Disposition: Home or Self Care (Routine Discharge) Social History Tobacco Use Types Packs/Day Years [...] Assessment Author Status No 07/29/2020 8:15 PM WHITE METAL CASTER Activ e * RETIRED Are you blind or do you have serious difficulty seeing, even when wearing glasses? Answer Date of Assessment Author Status No 07/29/2020 8:15 PM WHITE METAL CASTER Activ e * Do you have serious [...] R N Active documented in this encounter Medications at Time of Discharge cranberry 450 MG Tab tablet Take 450 mg by mouth daily. acetaminophen 325 MG tablet Take 650 mg by mouth every 4 (four) hours as needed for Pain or Fever. 04/04/2019 2 amlodipine 10 MG tablet Take 1 tablet by mouth daily. 07/30/2015 2 aspirin 81 MG chewable tablet Chew 1 tablet by mouth daily. 12/29/2017 2 atorvastatin 40 MG tablet Take 80 mg by mouth daily. 04/01/2019 1 cyanocobalamin 1000 MCG/ML injection Inject 1 mL into the muscle monthly. Give on of month 2 donepezil 10 MG Tab Take 10 mg by mouth daily. 2 doxycycline monohydrate 100 MG capsule Take 100 mg by mouth 2 (two) times daily. x7 days 09/11/2020 0 fluconazole 150 MG tablet Take 150 mg by mouth weekly. x6 months 09/11/2020 1 glimepiride 4 MG tablet Take 4 mg by mouth every morning before breakfast. 1 HYDROcodone-acetam inophen 5-325 MG tabletIndications: Acute Pain < 7 Day Supply Take 1 tablet by mouth every 4 (four) hours as needed. Indications: Acute Pain < 7 Day Supply 15 tablet 08/01/2020 2 insulin aspart 100 UNIT/ML injection (PEN) Inject into the skin 2 (two) times a day. Per SSI at noon and HS <150 = 0 units 150 - 200 = 2 units 201 - 250 = 4 units 251 - 300 = 6 units 301 - 350 = 8 units 351 - 400 = 10 units >400 = 12 units and notify provider 1 insulin glargine 100 UNIT/ML injection (VIAL) Inject 15 Units into the skin nightly at bedtime. 2 lisinopril 10 MG tabletIndications: Essential hypertension Take 1 tablet (10 mg total) by mouth daily. 30 tablet 11/03/2018 2 loratadine 10 MG tablet Take 1 tablet by mouth daily. 10/06/2017 2 magnesium gluconate (MAGONATE) tablet Take 27 mg by mouth 2 (two) times daily. 2 memantine ER (NAMENDA XR) 28 MG 24 hr capsule Take 1 capsule by mouth daily. 06/21/2013 1 metoprolol tartrate 25 MG tablet Take 25 mg by mouth 2 (two) times daily. 2 Multiple Vitamin (THERA-MILL) Tab Take 1 tablet by mouth daily. 10/06/2017 2 nystatin powder Apply topically daily as needed. 1 polyvinyl alcohol 1.4 % ophthalmic solution Place 1 drop into both eyes 3 (three) times daily. 1 predniSONE 5 mg tablet Take 5 mg by mouth as needed. 04/26/2019 2 PREGABALIN 150 MG capsuleIndications :Type 2 diabetes mellitus with diabetic polyneuropathy, without long-term current use of insulin ([facility]/HCC) TAKE 1 CAPSULE BY MOUTH TWICE A DAY 60 capsule 4 09/13/2020 0 Probiotic Product (PROBIOTIC ADVANCED) Cap Take 1 capsule by mouth 2 (two) times daily. x10 days 09/11/2020 0 saccharomyces boulardii (FLORASTOR) 250 MG capsule Take 1 capsule by mouth 2 (two) times daily. 2 vitamin D2, ergocalciferol, 15683 UNITS capsule Take 2 capsules by mouth once a week. Thursday12/29/2017 0 documented as of this encounter Plan of Treatment Not on file documented as of this encounter Goals Goal Patient Goal Type Associated Problems Recent Progress Patient-Stated? Author Establish Plan for Regular Lab Work General No Marlys Sam RN documented as of this encounter Procedures Procedure Name Priority Date/Time Associated Diagnosis Comments HEMOGLOBIN, GLYCOSYLATED Routine 09/14/2020 11:05 AM WHITE METAL CASTER Diabetes mellitus ([facility] HHS/[facility]) documented in this encounter Results * (ABNORMAL) HEMOGLOBIN, GLYCOSYLATED (09/14/2020 11:05 AM WHITE METAL CASTER) HGB A1C 7.8(H) <5.7 % 09/14/2020 2:02 PM WHITE METAL CASTER [facility] Comment: INCREASED RISK OF DIABETES <5.7% ?NON-DIABETES 5.7-6.4% INCREASED RISK FOR FUTURE DIABETES > OR = 6.5 CONSISTENT WITH DIABETES STANDARDS OF MEDICAL CARE IN DIABETES-2010 DIABETES CARE, 33(SUPP 1): S1-S61,2010 09/14/2020 11:0 5 AM WHITE METAL CASTER Yolanda Dorsey NP LABORATORY Final Result [facility] [address] [place] [address], documented in this encounter Visit Diagnoses Diagnosis Diabetes mellitus ([facility]) Type II or unspecified type diabetes mellitus without mention of complication, not stated as uncontrolled documented in this encounter Care Teams Needle Loom Operator Relationship Specialty Start Date End Date Jayesh Lara DO PCP - General INTERNAL MEDICINE 02/24/20 12/12/20 Yolanda Dorsey NP Nurse Practitioner Nurse Practitioner Family 02/24/20 01/23/21 documented as of this encounter
--- OUTSIDE RECORDS SUMMARY | 2024-09-21 01:14 | XMS_ITS | Encounter Summary ---
Author Organization [facility] Address [address] [facility] [place] [address] [place] [address] Care Team Providers Care Neon Sign Erector Name Role Phone Yolanda Dorsey JUNIOR SALES REPRESENTATIVE Unavailable Jayesh Lara DO Primary Care Provider [phone] Encounter Details Date Type Department Care Team (Late st Contact Info) Description 11/27/2020 Orders Only [facility] [address] [place], [place] [id number] Jayesh Lara DO [address] [address] Social History Tobacco Use Types [...] Assessment Author Status No 07/29/2020 8:15 PM PANTS BUSHELER Activ e * RETIRED Are you blind or do you have serious difficulty seeing, even when wearing glasses? Answer Date of Assessment Author Status No 07/29/2020 8:15 PM PANTS BUSHELER Activ e * Do you have serious difficulty walking or climbing stairs? Answer Date of Assessment Author Status Yes 07/29/2020 8:15 PM PANTS BUSHELER Nirali Lyons R N Active * Do you have difficulty dressing or bathing? Answer Date of Assessment Author Status Yes 07/29/2020 8:15 PM PANTS BUSHELER Nirali Lyons R N Active * Because of a physical, mental, or emotional condition, do you have difficulty doing errands alone such as visiting a doctor's office or shopping? Answer Date of Assessment Author Status Yes 07/29/2020 8:15 PM PANTS BUSHELER Nirali Lyons R N Active documented as of this encounter Mental Status * Because of a physical, mental, or emotional condition, do you have serious difficulty concentrating, remembering, or making decisions? Answer Entry Date Author Status Yes 07/29/2020 8:15 PM PANTS BUSHELER Nirali Lyons R N Active documented in this encounter Plan of Treatment Not on file documented as of this encounter Goals Goal Patient Goal Type Associated Problems Recent Progress Patient-Stated? Author Establish Plan for Regular Lab Work General No Marlys Sam RN documented as of this encounter Results * (ABNORMAL) URIC ACID BLOOD (11/27/2020 10:25 AM PANTS BUSHELER) URIC ACID 7.5(H) 2.6 - 6.0 MG/DL 11/27/2020 11:02 AM PANTS BUSHELER [facility] 11/27/2020 10:2 5 AM PANTS BUSHELER us Jayesh Lara DO LABORATORY Final Result Performing Organization Address City/State/[facility] Co de Phone Number [facility] [address] [place] [address], documented in this encounter Visit Diagnoses Diagnosis Hypouricemia- Primary Other abnormal blood chemistry documented in this encounter Care Teams Neon Sign Erector Relationship Specialty Start Date End Date Jayesh Lara DO PCP - General INTERNAL MEDICINE 02/24/20 12/12/20 Yolanda Dorsey NP Nurse Practitioner Nurse Practitioner Family 02/24/20 01/23/21 documented as of this encounter
--- OUTSIDE RECORDS SUMMARY | 2024-09-21 01:14 | XMS_ITS | Encounter Summary ---
Author Organization [facility] Address [facility] [place] [address] [place] [address] Care Team Providers Care Child Study Team Director Name Role Phone Yolanda Dorsey WH[place] GUIDE Unavailable Jayesh Lara DO Primary Care Provider [phone] Reason for Visit * Reason Onset Date Comments Fax Documentation 08/24/2020 blood sugars Encounter Details Date Type Department Care Team (Latest Contact Info) Description 08/24/2020 SEW OUT OPERATOR ONLY [facility] [address] [facility] [address] [place] [address] Yolanda Dorsey, SHANKAR [address] [address] Fax Documentation (blood sugars) Social History Tobacco Use Types Packs/Day Years Used Date Smoking Tobacco: Unknown Comments Unknown Sex and Gender Information Value Date Recorded Sex Assigned at Not on file Legal Sex Female 10:25 PM CDT Gender Identity Not on file Sexual Orientation Not on file COVID-19 Exposure Response Date Recorded In the last month, have you been in contact with someone who was confirmed or suspected to have Coronavirus / COVID-19? Unable to assess 07/29/2020 8:12 PM TRAFFIC RATE COMPUTER documented as of this encounter Functional Status * RETIRED Are you deaf or do you have serious difficulty hearing Answer Date of Assessment Author Status No 07/29/2020 8:15 PM TRAFFIC RATE COMPUTER Activ e * RETIRED Are you blind or do you have serious difficulty seeing, even when wearing glasses? Answer Date of Assessment Author Status No 07/29/2020 8:15 PM TRAFFIC RATE COMPUTER Activ e * Do you have serious difficulty walking or climbing stairs? Answer Date of Assessment Author Status Yes 07/29/2020 8:15 PM TRAFFIC RATE COMPUTER Nirali Lyons R N Active * Do you have difficulty dressing or bathing? Answer Date of Assessment Author Status Yes 07/29/2020 8:15 PM TRAFFIC RATE COMPUTER Nirali Lyons R N Active * Because of a physical, mental, or emotional condition, do you have difficulty doing errands alone such as visiting a doctor's office or shopping? Answer Date of Assessment Author Status Yes 07/29/2020 8:15 PM TRAFFIC RATE COMPUTER Nirali Lyons R N Active documented as of this encounter Mental Status * Because of a physical, mental, or emotional condition, do you have serious difficulty concentrating, remembering, or making decisions? Answer Entry Date Author Status Yes 07/29/2020 8:15 PM TRAFFIC RATE COMPUTER Nirali Lyons R N Active documented in this encounter Progress Notes * Dorothy Kwong - 08/24/2020 12:45 PM CST Blood sugars from 130 - 320 Order: Increase lantus to 12 units sc qhs FIC RATE COMPUTER documented in this encounter Plan of Treatment Not on file documented as of this encounter Goals Goal Patient Goal Type Associated Problems Recent Progress Patient-Stated? Author Establish Plan for Regular Lab Work General No Marlys Sam RN documented as of this encounter Visit Diagnoses Not on filedocumented in this encounter Care Teams Child Study Team Director Relationship Specialty Start Date End Date Jayesh Lara DO PCP - General INTERNAL MEDICINE 02/24/20 12/12/20 Yolanda Dorsey NP Nurse Practitioner Nurse Practitioner Family 02/24/20 01/23/21 documented as of this encounter
--- OUTSIDE RECORDS SUMMARY | 2024-09-21 01:14 | XMS_ITS | Encounter Summary ---
Author Organization [facility] Address [address] [facility] [place] [address] [place] [address] Care Team Providers Care Manager Portable Name Role Phone Yolanda Dorsey WIRE COILER MACHINE OPERATOR Unavailable Jayesh Lara DO Primary Care Provider [phone] Encounter Details Date Type Department Care Team (Latest Contact Info) Description 09/29/2020 Scan HEALTH INFO SRVCS Scanned, Documents Social [...] Assessment Author Status No 07/29/2020 8:15 PM TRAINING AND DEVELOPMENT MANAGER Activ e * RETIRED Are you blind or do you have serious difficulty seeing, even when wearing glasses? Answer Date of Assessment Author Status No 07/29/2020 8:15 PM TRAINING AND DEVELOPMENT MANAGER Activ e * Do you have serious difficulty walking or climbing stairs? Answer Date of Assessment Author Status Yes 07/29/2020 8:15 PM TRAINING AND DEVELOPMENT MANAGER Nirali Lyons R N Active * Do you have difficulty dressing or bathing? Answer Date of Assessment Author Status Yes 07/29/2020 8:15 PM TRAINING AND DEVELOPMENT MANAGER Nirali Lyons R N Active * Because [...] on filedocumented in this encounter Care Teams Manager Portable Relationship Specialty Start Date End Date Jayesh Lara DO PCP - General INTERNAL MEDICINE 02/24/20 12/12/20 Yolanda Dorsey NP Nurse Practitioner Nurse Practitioner Family 02/24/20 01/23/21 documented as of this encounter
--- OUTSIDE RECORDS SUMMARY | 2024-09-21 01:14 | XMS_ITS | Encounter Summary ---
Author Organization [facility] Address [address] [place] [address] [place] [address] Care Team Providers Care Humanities And Languages Professor Name Role Phone Yolanda Dorsey MATERIAL YARD CLERK Unavailable Jayesh Lara DO Primary Care Provider [phone] Chris Higgins MD Primary Care Provider [phone] Giovanna Buck MATERIAL YARD CLERK Unavailable Jayesh Lara DO Unavailable Encounter Details Date Type Department Care Team (Latest Contact Info) Description 12/07/2020 Scan HEALTH INFO SRVCS Scanned, Documents Social [...] Assessment Author Status No 07/29/2020 8:15 PM SEAT BUILDER Activ e * RETIRED Are you blind or do you have serious difficulty seeing, even when wearing glasses? Answer Date of Assessment Author Status No 07/29/2020 8:15 PM SEAT BUILDER Activ e * Do you have serious [...] on filedocumented in this encounter Care Teams Humanities And Languages Professor Relationship Specialty Start Date End Date Jayesh [...]
--- OUTSIDE RECORDS SUMMARY | 2024-09-21 01:14 | XMS_ITS | Encounter Summary ---
Author Organization [facility] Address [address] [facility] [address] [place] [address] Care Team Providers Care Group Exercise Instructor Name Role Phone Yolanda Dorsey CHURNER Unavailable Jayesh Lara DO Primary Care Provider [phone] Reason for Visit * Reason Comments Snf acute redness/sore f noel Encounter Details Date Type Department Care Team (Late st Contact Info) Description 11/27/2020 2:00 PM FRUIT HARVESTER MACHINE OPERATOR Snf [facility] [address] [place] [id number] Yolanda Dorsey, SHANKAR [address] [address] Snf (acute redness/sore finger) Social History Tobacco Use Types Packs/Day Years Used Date Smoking Tobacco: Unknown Comments Unknown Sex and Gender Information Value Date Recorded Sex Assigned at Not on file Legal Sex Female 10:25 PM CDT Gender Identity Not on file Sexual Orientation Not on file documented as of this encounter Last Filed Vital Signs Vital Sign Reading Time Taken Comments Blood Pressure 122/58 11/27/2020 1:57 PM FRUIT HARVESTER MACHINE OPERATOR Pulse 72 11/27/2020 1:57 PM FRUIT HARVESTER MACHINE OPERATOR Temperature 36.4 ??C (97.5 ??F) 11/27/2020 1:57 PM CS T Respiratory Rate 20 11/27/2020 1:57 PM FRUIT HARVESTER MACHINE OPERATOR Oxygen Saturation 92% 11/27/2020 1:57 PM FRUIT HARVESTER MACHINE OPERATOR Inhaled Oxygen Concentration - - Weight - - Height - - Body Mass Index - - documented in this encounter Functional Status * RETIRED Are you deaf or do you have serious difficulty hearing Answer Date of Assessment Author Status No 07/29/2020 8:15 PM FRUIT HARVESTER MACHINE OPERATOR Activ e * RETIRED Are you blind or do you have serious difficulty seeing, even when wearing glasses? Answer Date of Assessment Author Status No 07/29/2020 8:15 PM FRUIT HARVESTER MACHINE OPERATOR Activ e * Do you have serious difficulty walking or climbing stairs? Answer Date of Assessment Author Status Yes 07/29/2020 8:15 PM FRUIT HARVESTER MACHINE OPERATOR Nirali Lyons R N Active * Do you have difficulty dressing or bathing? Answer Date of Assessment Author Status Yes 07/29/2020 8:15 PM FRUIT HARVESTER MACHINE OPERATOR Nirali Lyons R N Active * Because of a physical, mental, or emotional condition, do you have difficulty doing errands alone such as visiting a doctor's office or shopping? Answer Date of Assessment Author Status Yes 07/29/2020 8:15 PM FRUIT HARVESTER MACHINE OPERATOR Nirali Lyons R N Active documented as of this encounter Mental Status * Because of a physical, mental, or emotional condition, do you have serious difficulty concentrating, remembering, or making decisions? Answer Entry Date Author Status Yes 07/29/2020 8:15 PM FRUIT HARVESTER MACHINE OPERATOR Nirali Lyons R N Active documented in this encounter Progress Notes * Yolanda Pryor NP - 11/27/2020 2:00 PM CST Images from the original note were not included. Reason for Visit: Snf (acute redness/sore finger) History of Present Illness: Emelina Santoyo is an 80-year-old female who was seen today for an acute visit. Nurse reports her leftpinky finger is red, warm and tender to touch. She has not noticed any drainage from the nailbed but reports staff reported drainage about a day ago. Patient denies any pain or that it has affected her ADLs. ROS: Review of Systems Constitutional: Negative for chills, fever and malaise/fatigue. Musculoskeletal: Negative for joint pain. Skin: Negative for itching and rash. Left pinky finger redness Neurological: Positive for weakness. Negative for dizziness [...] Rfl: ??? Cholecalciferol (VITAMIN D3) 250 MCG (54824 UT) Tab, Take 1 tablet by mouth [...] weekly. x6 months, Disp: , Rfl: ??? glimepiride 4 MG tablet, Take 4 mg by mouth every morning before breakfast., Disp: , Rfl: ??? HYDROcodone-acetaminophen 5-325 MG [...] insulin glargine 100 UNIT/ML injection (VIAL), Inject 12 Units into the skin nightly at bedtime. [...] needed for Constipation., Disp: , Rfl: ??? memantine ER (NAMENDA XR) 28 MG 24 hr capsule, Take 1 capsule by mouth daily., Disp: , Rfl: ??? metoprolol tartrate 25 MG tablet, Take [...] ??? Chronic indwelling Zhang catheter Filed Vitals: 11/27/20 1357 BP: 122/58 Pulse: 72 Resp: 20 Temp: 97.5 ??F (36.4 ??C) SpO2: 92% Physical Exam Constitutional: She appears well-developed and well-nourished. Cardiovascular: Normal rate, regular rhythm and normal heart sounds. Pulmonary/Chest: Effort normal and breath sounds normal. No respiratory distress. Neurological: She is alert. She is disoriented. Coordination and gait (wheelchair) abnormal. Skin: Skin is warm and dry. There is erythema. Left 5th finger redness, warmth. Dried drainage noted on nail bed. No obvious abscess needing drainage. Psychiatric: She has a normal mood and affect. Her speech is delayed. She is slowed and withdrawn. Cognition and memory are impaired. She expresses inappropriate judgment. She exhibits abnormal recent memory. She is inattentive. Diagnoses/Impression: 1. Paronychia of finger of left hand - Epsom salt soaks TID until healed. - DIONTE applied to finger after each soak until healed. Recommendations and Plan: Changes made as described above. Staff to continue to monitor and report any changes. Follow up in one month unless necessary sooner. Yolanda Pryor NP T HARVESTER MACHINE OPERATOR documented in this encounter Plan of Treatment Not on file documented as of this encounter Goals Goal Patient Goal Type Associated Problems Recent Progress Patient-Stated? Author Establish Plan for Regular Lab Work General No Marlys Sam RN documented as of this encounter Visit Diagnoses Diagnosis Paronychia of finger of left hand- Primary documented in this encounter Care Teams Group Exercise Instructor Relationship Specialty Start Date End Date Jayesh Lara DO PCP - General INTERNAL MEDICINE 02/24/20 12/12/20 Yolanda Dorsey NP Nurse Practitioner Nurse Practitioner Family 02/24/20 01/23/21 documented as of this encounter
--- OUTSIDE RECORDS SUMMARY | 2024-09-21 01:14 | XMS_ITS | Encounter Summary ---
Author Organization [facility] Address [facility] [facility] [place] [address] [place] [address] Care Team Providers Care Bladder Blower Name Role Phone Yolanda Dorsey TRANSPORT TECHNICIAN Unavailable Jayesh Lara DO Primary Care Provider [phone] Reason for Visit * Reason Comments Usp routine Encounter Details Date Type Department Care Team (Late st Contact Info) Description 11/15/2020 8:40 AM SECOND RIGGER Usp [facility] Nursing [facility] [address] [place] [id number] Yolanda Dorsey NP [address] [id number] Usp (routine) Social History Tobacco Use Types Packs/Day Years Used Date Smoking Tobacco: Unknown Comments Unknown Sex and Gender Information Value Date Recorded Sex Assigned at Not on file Legal Sex Female 10:25 PM CDT Gender Identity Not on file Sexual Orientation Not on file documented as of this encounter Last Filed Vital Signs Vital Sign Reading Time Taken Comments Blood Pressure 114/60 11/15/2020 8:16 AM SECOND RIGGER Pulse 72 11/15/2020 8:16 AM SECOND RIGGER Temperature 36.6 ??C (97.9 ??F) 11/15/2020 8:16 AM CS T Respiratory Rate 20 11/15/2020 8:16 AM SECOND RIGGER Oxygen Saturation - - Inhaled Oxygen Concentration - - Weight - - Height - - Body Mass Index - - documented in this encounter Functional Status * RETIRED Are you deaf or do you have serious difficulty hearing Answer Date of Assessment Author Status No 07/29/2020 8:15 PM SECOND RIGGER Activ e * RETIRED Are you blind or do you have serious difficulty seeing, even when wearing glasses? Answer Date of Assessment Author Status No 07/29/2020 8:15 PM SECOND RIGGER Activ e * Do you have serious difficulty walking or climbing stairs? Answer Date of Assessment Author Status Yes 07/29/2020 8:15 PM SECOND RIGGER Nirali Lyons R N Active * Do you have difficulty dressing or bathing? Answer Date of Assessment Author Status Yes 07/29/2020 8:15 PM SECOND RIGGER Nirali Lyons R N Active * Because of a physical, mental, or emotional condition, do you have difficulty doing errands alone such as visiting a doctor's office or shopping? Answer Date of Assessment Author Status Yes 07/29/2020 8:15 PM SECOND RIGGER Nirali Lyons R N Active documented as of this encounter Mental Status * Because of a physical, mental, or emotional condition, do you have serious difficulty concentrating, remembering, or making decisions? Answer Entry Date Author Status Yes 07/29/2020 8:15 PM SECOND RIGGER Nirali Lyons R N Active documented in this encounter Progress Notes * Yolanda Pryor NP - 11/15/2020 8:40 AM CST Images from the original note were not included. Reason for Visit: Usp (routine) History of Present Illness: Emelina Santoyo [...] a good appetite and is sleeping well. Staff has no acute concerns at this time. Alzheimer's: No behaviors. Stable. On namenda and donepezil. Type 2 diabetes: Follow A1C. Last done 06/17/20 - 8.7%. On glipizide and lyrica. MS: No complaints. Wheelchair bound. Daily prednisone. Hypertension: BP stable. CMP 08/14/20 reveals BUN 14, Cr 0.8, GFR 71. On amlodipine, lisinopril andmetoprolol. Vitamin D deficiency: Follow vitamin D level. Last done 03/02/20- WNL. On vitamin D supplements. Hyperlipidemia: Follow lipid panel. Last done 03/02/20 - triglycerides 735. Atorvastatin increased and repeat ordered in 3 months - appears never completed. ROS: Review of Systems Constitutional: Negative for chills, fever and malaise/fatigue. Respiratory: Negative for cough and shortness of breath. Cardiovascular: Negative for chest pain. Gastrointestinal: Negative for abdominal pain, diarrhea and vomiting. Musculoskeletal: Negative for joint pain. Skin: Negative [...] Rfl: ??? atorvastatin 40 MG tablet, Take 80 mg by mouth daily. , Disp: , Rfl: ??? Cholecalciferol (VITAMIN D3) 250 MCG (37168 UT) Tab, Take 1 tablet by mouth [...] by mouth daily., Disp: , Rfl: ??? nystatin powder, Apply topically daily as needed., Disp: , Rfl: ??? predniSONE 5 mg [...] ??? Chronic indwelling Zhang catheter Filed Vitals: 11/15/20 0816 BP: 114/60 Pulse: 72 Resp: 20 Temp: 97.9 ??F (36.6 ??C) Physical Exam Constitutional: She appears well-developed [...] Late onset Alzheimer's disease without behavioral disturbance ([facility]/HCC) 2. Type 2 diabetes mellitus with diabetic polyneuropathy, without long-term current use of insulin ([facility]) 3. Mixed hyperlipidemia - Draw lipid panel. Recommendations and Plan: Continue current treatment plan. Staff to continue to monitor and report any changes. Follow up in one month unless necessary sooner. Yolanda Pryor NP ND RIGGER documented in this encounter Plan of Treatment [...] polyneuropathy, without long-term current use of insulin (CMS/HCC HHS/HCC) Mixed hyperlipidemia documented in this encounter Care Teams Bladder Blower Relationship Specialty Start Date End Date Jayesh Lara DO PCP - General INTERNAL MEDICINE 02/24/20 12/12/20 Yolanda Dorsey NP Nurse Practitioner Nurse Practitioner Family 02/24/20 01/23/21 documented as of this encounter
--- OUTSIDE RECORDS SUMMARY | 2024-09-21 01:14 | XMS_ITS | Encounter Summary ---
Author Organization [facility] Address [address] [facility] [place] [address] [place] [address] Care Team Providers Care Box Lidder Name Role Phone Yolanda Dorsey DRIVE TESTER Unavailable Jayesh Lara DO Primary Care Provider [phone] Encounter Details Date Type Department Care Team (Late st Contact Info) Description 09/14/2020 Orders Only [facility] [address] [place], [place] [id number] Yolanda Dorsey NP [address] [address] Social History Tobacco Use Types [...] Assessment Author Status No 07/29/2020 8:15 PM FOREIGN CLERK Activ e * RETIRED Are you blind or do you have serious difficulty seeing, even when wearing glasses? Answer Date of Assessment Author Status No 07/29/2020 8:15 PM FOREIGN CLERK Activ e * Do you have serious difficulty walking or climbing stairs? Answer Date of Assessment Author Status Yes 07/29/2020 8:15 PM FOREIGN CLERK Nirali Lyons R N Active * Do you have difficulty dressing or bathing? Answer Date of Assessment Author Status Yes 07/29/2020 8:15 PM FOREIGN CLERK Nirali Lyons R N Active * Because of a physical, mental, or emotional condition, do you have difficulty doing errands alone such as visiting a doctor's office or shopping? Answer Date of Assessment Author Status Yes 07/29/2020 8:15 PM FOREIGN CLERK Nirali Lyons R N Active documented as of this encounter Mental Status * Because of a physical, mental, or emotional condition, do you have serious difficulty concentrating, remembering, or making decisions? Answer Entry Date Author Status Yes 07/29/2020 8:15 PM FOREIGN CLERK Nirali Lyons R N Active documented in this encounter Plan of Treatment Not on file documented as of this encounter Goals Goal Patient Goal Type Associated Problems Recent Progress Patient-Stated? Author Establish Plan for Regular Lab Work General No Marlys Sam RN documented as of this encounter Results * (ABNORMAL) HEMOGLOBIN, GLYCOSYLATED (09/14/2020 11:05 AM FOREIGN CLERK) HGB A1C 7.8(H) <5.7 % 09/14/2020 2:02 PM FOREIGN CLERK [facility] Comment: INCREASED RISK OF DIABETES <5.7% ?NON-DIABETES 5.7-6.4% INCREASED RISK FOR FUTURE DIABETES > OR = 6.5 CONSISTENT WITH DIABETES STANDARDS OF MEDICAL CARE IN DIABETES-2010 DIABETES CARE, 33(SUPP 1): S1-S61,2010 09/14/2020 11:0 5 AM FOREIGN CLERK us Yolanda Dorsey NP LABORATORY Final Result [facility] [address] [place] [address], documented in this encounter Visit Diagnoses Diagnosis Diabetes mellitus ([facility]/HCC [facility])- Primary Type II or unspecified type diabetes mellitus without mention of complication, not stated as uncontrolled documented in this encounter Care Teams Box Lidder Relationship Specialty Start Date End Date Jayesh Lara DO PCP - General INTERNAL MEDICINE 02/24/20 12/12/20 Yolanda Dorsey NP Nurse Practitioner Nurse Practitioner Family 02/24/20 01/23/21 documented as of this encounter
--- OUTSIDE RECORDS SUMMARY | 2024-09-21 01:14 | XMS_ITS | Encounter Summary ---
Author Organization [facility] Address [facility] [facility] [place] [address] [place] [address] Care Team Providers Care Faa Certified Powerplant Mechanic Name Role Phone SunitaYolanda velazquez PRODUCT RESPONSIBILITY LIAISON Unavailable Chris Higgins MD Primary Care Provider [phone] Giovanna Buck PRODUCT RESPONSIBILITY LIAISON Unavailable [phone] Jayesh Lara DO Unavailable Reason for Visit * Reason Comments Halfway routine Encounter Details Date Type Department Care Team (Latest Contact Info) Description 12/17/2020 8:00 AM CDT Telemedicine Halfway [address] [place] [address] Chris Higgins MD 1 [place] [address] Halfway (routine) Social History Tobacco Use Types [...] Sign Reading Time Taken Comments Blood Pressure 136/72 12/17/2020 10:26 AM CDT Pulse 84 12/17/2020 10:26 AM CDT Temperature 36.6 ??C (97.8 ??F) 12/17/2020 10:26 AM C DT Respiratory Rate 18 12/17/2020 10:26 AM CDT Oxygen Saturation - - Inhaled Oxygen Concentration - - Weight - - Height - - Body Mass Index - - documented in this encounter Functional Status * RETIRED Are you deaf or do you have serious difficulty hearing Answer Date of Assessment Author Status No 07/29/2020 8:15 PM SOFTWARE DEVELOPMENT SPECIALIST Activ e * RETIRED Are you blind or do you have serious difficulty seeing, even when wearing glasses? Answer Date of Assessment Author Status No 07/29/2020 8:15 PM SOFTWARE DEVELOPMENT SPECIALIST Activ e * Do you have serious difficulty walking or climbing stairs? Answer Date of Assessment Author Status Yes 07/29/2020 8:15 PM SOFTWARE DEVELOPMENT SPECIALIST Nirali Lyons R N Active * Do you have difficulty dressing or bathing? Answer Date of Assessment Author Status Yes 07/29/2020 8:15 PM SOFTWARE DEVELOPMENT SPECIALIST Nirali Lyons R N Active * Because of a physical, mental, or emotional condition, do you have difficulty doing errands alone such as visiting a doctor's office or shopping? Answer Date of Assessment Author Status Yes 07/29/2020 8:15 PM SOFTWARE DEVELOPMENT SPECIALIST Nirali Lyons R N Active documented as of this encounter Mental Status * Because of a physical, mental, or emotional condition, do you have serious difficulty concentrating, remembering, or making decisions? Answer Entry Date Author Status Yes 07/29/2020 8:15 PM SOFTWARE DEVELOPMENT SPECIALIST Nirali Lyons R N Active documented in this encounter Progress Notes * Chris Higgins MD - 12/17/2020 8:00 AM CDT REASON FOR VISIT Halfway (routine) I introduced and identified myself, received verbal consent from the patient to proceed with this video visit and made the patient aware that the same confidentiality and information systems planner practices apply. The patient joined the video visit from Halfway. I completed the virtual visit from Office. The following clinical staff helped with this visit Nurse: Ayaka. Total Time Spent in Minutes: 15 mins HPI Emelina Santoyo is a 80-year-old female is being seen today for a routine correction exam. This visit is completed virtually due to the coronavirus pandemic. 80-year-old female with multiple medical problems is reviewed with staff today. As per staff, patient is oriented to self. Has confusion at baseline. Patient's regular care and feeding done by staff and patient is Joana lift. Patient has a left ring finger with mild redness, no worsening. 1. Late onset Alzheimer's disease without behavioral disturbance (CMS/HCC) Stable, continue current medications 2. Mixed hyperlipidemia On statin 3. Essential hypertension Blood pressure stable, continue amlodipine lisinopril, metoprolol and monitor vitals 4. Vitamin D deficiency Continue vitamin D supplements 5. Diabetes On insulin, monitor Accu-Cheks, diabetic diet Review of Systems Positive for memory issues, generalized weakness, left pinky finger redness otherwise all other systems reviewed and negative Outpatient Medications Marked as Taking for the 12/17/20 encounter (Telemedicine Halfway) with Chris Higgins MD Medication Sig Dispense Refill ??? acetaminophen 325 MG tablet Take 650 mg by mouth every 4 (four) hours as needed for Pain. ??? amlodipine 10 MG tablet Take 1 tablet by mouth daily. ??? artificial tears 83-15 % ophthalmic ointment 3 (three) times a day. ??? aspirin 81 MG chewable tablet Chew 1 tablet by mouth daily. ??? atorvastatin 40 MG tablet Take 40 mg by mouth daily. ??? Cholecalciferol (VITAMIN D3) 250 MCG (61185 UT) Tab Take 1 tablet by mouth daily. ??? cranberry 450 MG Tab tablet Take 450 mg by mouth daily. ??? cyanocobalamin 1000 MCG/ML injection Inject 1 mL into the muscle monthly. Give on of month ??? donepezil 10 MG Tab Take 10 mg by mouth 2 (two) times daily. ??? fluconazole 150 MG tablet Take 150 mg by mouth weekly. x6 months ??? HYDROcodone-acetaminophen 5-325 MG tablet Take 1 tablet by mouth every 4 (four) hours as needed. Indications: Acute Pain < 7 Day Supply 15 tablet 0 ??? insulin aspart (NOVOLOG) 100 UNIT/ML injection (VIAL) Inject into the skin 3 (three) times daily before meals. <150= 0 units 151-200= 2 units 201-250= 4 units 251-300= 6 units 301-350= 8 units 351-400= 10 units >400= 12 units notify MD ??? insulin glargine 100 UNIT/ML injection (VIAL) Inject 15 Units into the skin nightly at bedtime. ??? lisinopril 10 MG tablet Take 1 tablet (10 mg total) by mouth daily. 30 tablet 0 ??? loratadine 10 MG tablet Take 1 tablet by mouth daily. ??? magnesium gluconate (MAG-G) tablet Take 27 mg by mouth 2 (two) times daily. ??? magnesium hydroxide 400 MG/5ML suspension Take 30 mLs by mouth daily as needed for Constipation. ??? MEMANTINE 10 MG tablet TAKE 1 TABLET BY MOUTH TWICE A DAY 60 tablet 11 ??? metoprolol tartrate 25 MG tablet Take 25 mg by mouth 2 (two) times daily. ??? Multiple Vitamin (THERA-MILL) Tab Take 1 tablet by mouth daily. ??? predniSONE 5 mg tablet Take 5 mg by mouth as needed. ??? pregabalin 150 MG capsule Take 1 capsule (150 mg total) by mouth 2 (two) times daily. 60 capsule 1 ??? saccharomyces boulardii (FLORASTOR) 250 MG capsule Take 1 capsule by mouth 2 (two) times daily. Allergies Allergen Reactions ??? Metronidazole Unknown Filed Vitals: 12/17/20 1026 BP: 136/72 Pulse: 84 Resp: 18 Temp: 97.8 ??F (36.6 ??C) Physical Exam Part of the physical examination was held by RN HEENT: Atraumatic/normocephalic Eyes: Pupils reactive bilaterally equal Heart: S1-S2 heard, no murmurs Lungs: Bilateral air entry. No rhonchi or wheezing Abdomen: Soft, not tender Extremities: Mild swelling in bilateral legs, decreased range of movements in all extremities Neurologic: Patient awake alert, oriented x1, self, has on and off confusion as per staff Assessment and Plan Diagnoses and all orders for this visit: Late onset Alzheimer's disease without behavioral disturbance (CMS/HCC) Mixed hyperlipidemia Essential hypertension Vitamin D deficiency Diabetes Plan: Continue current treatment Recommend staff to monitor for any acute issues and report MD as needed Will will see patient in 1 month or sooner if needed CHRIS HIGGINS MD documented in this encounter Plan of Treatment Not on file documented as of this encounter Goals Goal Patient Goal Type Associated Problems Recent Progress Patient-Stated? Author Establish Plan for Regular Lab Work General No Marlys Sam RN documented as of this encounter Visit Diagnoses Diagnosis Late onset Alzheimer's disease without behavioral disturbance ([facility]/HCC [facility])- Primary Mixed hyperlipidemia Essential hypertension Unspecified essential hypertension Vitamin D deficiency Unspecified vitamin D deficiency documented in this encounter Care Teams Faa Certified Powerplant Mechanic Relationship Specialty Start Date End Date Chris Higgins MD PCP - General HOSPITALIST 12/13/20 01/23/21 Yolanda Dorsey NP Nurse Practitioner Nurse Practitioner Family 02/24/20 01/23/21 Giovanna Buck NP Nurse Practitioner NURSE PRACTITIONER 12/13/20 01/23/21 Jayesh Lara DO Consulting Physician INTERNAL MEDICINE 12/13/20 1 documented as of this encounter
--- OUTSIDE RECORDS SUMMARY | 2024-09-21 01:14 | XMS_ITS | Encounter Summary ---
Author Organization [facility] Address [address] [facility] [place] [address] [place] [address] Care Team Providers Care Fitness Center Attendant Name Role Phone Yolanda Dorsey STOCK TRANSFER CLERK Unavailable Jayesh Lara DO Primary Care Provider [phone] Chris Higgins MD Primary Care Provider [phone] Giovanna Buck STOCK TRANSFER CLERK Unavailable [phone] Jayesh Lara DO Unavailable Encounter Details Date Type Department Care Team (Latest Contact Info) Description 11/29/2020 Scan HEALTH INFO SRVCS Scanned, Documents Social [...] Assessment Author Status No 07/29/2020 8:15 PM RENTAL CAR PORTER Activ e * RETIRED Are you blind or do you have serious difficulty seeing, even when wearing glasses? Answer Date of Assessment Author Status No 07/29/2020 8:15 PM RENTAL CAR PORTER Activ e * Do you have serious [...] on filedocumented in this encounter Care Teams Fitness Center Attendant Relationship Specialty Start Date End Date Jayesh [...]
--- OUTSIDE RECORDS SUMMARY | 2024-09-21 01:14 | XMS_ITS | Encounter Summary ---
Author Organization [facility] Address [address] [place] [address] [place] [address] Care Team Providers Care Patient Registration Rep Name Role Phone Yolanda Dorsey MANAGER IMPLEMENTATION Unavailable Jayseh Lara DO Primary Care Provider [phone] Chris Higgins MD Primary Care Provider [phone] Giovanna Buck MANAGER IMPLEMENTATION Unavailable [phone] Jayesh Lara DO Unavailable Encounter Details Date Type Department Care Team (Latest Contact Info) Description 12/10/2020 Scan HEALTH INFO SRVCS Scanned, Documents Social [...] Author Status No 07/29/2020 8:15 PM BUSINESS ADMINISTRATION INSTRUCTOR Activ e * RETIRED Are you blind or do you have serious difficulty seeing, even when wearing glasses? Answer Date of Assessment Author Status No 07/29/2020 8:15 PM BUSINESS ADMINISTRATION INSTRUCTOR Activ e * Do you have serious [...] Author Status Yes 07/29/2020 8:15 PM Nirali aJcome R N Active documented in this encounter Plan of Treatment Not on file documented as of this encounter Goals Goal Patient Goal Type Associated Problems Recent Progress Patient-Stated? Author Establish Plan for Regular Lab Work General No Marlys Sam RN documented as of this encounter Visit Diagnoses Not on filedocumented in this encounter Care Teams Patient Registration Rep Relationship Specialty Start Date End Date Jayesh aLra DO PCP - General INTERNAL MEDICINE 02/24/20 12/12/20 Chris Higgins MD PCP - General HOSPITALIST 12/13/20 01/23/21 Yolanda Dorsey NP Nurse Practitioner Nurse Practitioner Family 02/24/20 01/23/21 Giovanna Buck NP Nurse Practitioner NURSE PRACTITIONER 12/13/20 01/23/21 Jayesh Lara DO Consulting Physician INTERNAL MEDICINE 12/13/20 1 documented as of this encounter
--- OUTSIDE RECORDS SUMMARY | 2024-09-21 01:14 | XMS_ITS | Encounter Summary ---
Author Organization [facility] Address [address] [place] [address] [place] [address] Care Team Providers Care Therapy Coordinator Name Role Phone Yolanda Dorsey SKIDDER RUNNER Unavailable Jayesh Lara DO Primary Care Provider [phone] Encounter Details Date Type Department Care Team (Latest Contact Info) Description 10/04/2020 Scan HEALTH INFO SRVCS Scanned, Documents Social [...] Assessment Author Status No 07/29/2020 8:15 PM AUTISM SPECIALIST Activ e * RETIRED Are you blind or do you have serious difficulty seeing, even when wearing glasses? Answer Date of Assessment Author Status No 07/29/2020 8:15 PM AUTISM SPECIALIST Activ e * Do you have serious difficulty walking or climbing stairs? Answer Date of Assessment Author Status Yes 07/29/2020 8:15 PM AUTISM SPECIALIST Nirali Lyons R N Active * Do you have difficulty dressing or bathing? Answer Date of Assessment Author Status Yes 07/29/2020 8:15 PM AUTISM SPECIALIST Nirali Lyons R N Active * [...] on filedocumented in this encounter Care Teams Therapy Coordinator Relationship Specialty Start Date End Date Jayesh Lara DO PCP - General INTERNAL MEDICINE 02/24/20 12/12/20 Yolanda Dorsey NP Nurse Practitioner Nurse Practitioner Family 02/24/20 01/23/21 documented as of this encounter
--- OUTSIDE RECORDS SUMMARY | 2024-09-21 01:14 | XMS_ITS | Encounter Summary ---
Author Organization [facility] Address [facility]ly [facility] [place] [address] [place] [address] Care Team Providers Care It Business Analyst Name Role Phone Yolanda Dorsey TEAM ASSEMBLY LINE MACHINE OPERATOR Unavailable Chris Higgins MD Primary Care Provider [phone] Giovanna Buck TEAM ASSEMBLY LINE MACHINE OPERATOR Unavailable [phone] Jayesh Lara DO Unavailable Reason for Visit * Reason Onset Date Comments Fax Documentation 01/02/2021 Encounter Details Date Type Department Care Team (Late st Contact Info) Description 01/02/2021 LOGISTICS TEAM LEAD ONLY [facility] [address] [address] Yolanda Dorsey NP [address] [address] Fax Documentation Social History Tobacco Use Types [...] Assessment Author Status No 07/29/2020 8:15 PM BINGO CASHIER Activ e * RETIRED Are you blind or do you have serious difficulty seeing, even when wearing glasses? Answer Date of Assessment Author Status No 07/29/2020 8:15 PM BINGO CASHIER Activ e * Do you have serious difficulty walking or climbing stairs? Answer Date of Assessment Author Status Yes 07/29/2020 8:15 PM BINGO CASHIER Nirali Lyons R N Active * Do you have difficulty dressing or bathing? Answer Date of Assessment Author Status Yes 07/29/2020 8:15 PM BINGO CASHIER Nirali Lyons R N Active * Because of a physical, mental, or emotional condition, do you have difficulty doing errands alone such as visiting a doctor's office or shopping? Answer Date of Assessment Author Status Yes 07/29/2020 8:15 PM BINGO CASHIER Nirali Lyons R N Active documented as of this encounter Mental Status * Because of a physical, mental, or emotional condition, do you have serious difficulty concentrating, remembering, or making decisions? Answer Entry Date Author Status Yes 07/29/2020 8:15 PM BINGO CASHIER Nirali Lyons R N Active documented in this encounter Progress Notes * Savanah Mehta LPN - 01/02/2021 3:53 PM CDT Received fax from [facility]: 2 small areas to inside vaginal wall remain. White in color. No c/o pain or discomfort. No discharge noted. Yolanda Pryor APN updated with orders: continue to monitor and schedule patient for a visit next week with provider to view area. documented in this encounter Plan of Treatment Not on file documented as of this encounter Goals Goal Patient Goal Type Associated Problems Recent Progress Patient-Stated? Author Establish Plan for Regular Lab Work General No Marlys Sam RN documented as of this encounter Visit Diagnoses Not on filedocumented in this encounter Care Teams It Business Analyst Relationship Specialty Start Date End Date Chris Higgins MD PCP - General HOSPITALIST 12/13/20 01/23/21 Yolanda Dorsey NP Nurse Practitioner Nurse Practitioner [facility] 02/24/20 01/23/21 Giovanna Buck NP Nurse Practitioner NURSE PRACTITIONER 12/13/20 01/23/21 Jayesh Lara DO Consulting Physician INTERNAL MEDICINE 12/13/20 1 documented as of this encounter
--- OUTSIDE RECORDS SUMMARY | 2024-09-21 01:14 | XMS_ITS | Encounter Summary ---
Author Organization [facility] Address [facility] [place] [address] [place] [address] Care Team Providers Care Night Monitor Name Role Phone Yolanda Dorsey PICK UP OPERATOR Unavailable Chris Higgins MD Primary Care Provider [phone] Giovanna Buck PICK UP OPERATOR Unavailable Jayesh Lara DO Unavailable Encounter Details Date Type Department Care Team (Late st Contact Info) Description 01/07/2021 Chart Prep [facility] [address] [facility] [address] [place] [address] Yolanda Dorsey, PICK UP OPERATOR [address] [address] Social History Tobacco Use Types [...] Assessment Author Status No 07/29/2020 8:15 PM BUILDING CONSTRUCTION TEACHER Activ e * RETIRED Are you blind or do you have serious difficulty seeing, even when wearing glasses? Answer Date of Assessment Author Status No 07/29/2020 8:15 PM BUILDING CONSTRUCTION TEACHER Activ e * Do you have serious difficulty walking or climbing stairs? Answer Date of Assessment Author Status Yes 07/29/2020 8:15 PM BUILDING CONSTRUCTION TEACHER Nirali Lyons R N Active * Do you have difficulty dressing or bathing? Answer Date of Assessment Author Status Yes 07/29/2020 8:15 PM BUILDING CONSTRUCTION TEACHER Nirali Lyons R N Active * [...] on filedocumented in this encounter Care Teams Night Monitor Relationship Specialty Start Date End Date Chris Higgins MD PCP - General HOSPITALIST 12/13/20 01/23/21 Yolanda Dorsey NP Nurse Practitioner Nurse Practitioner Family 02/24/20 01/23/21 Giovanna Buck NP Nurse Practitioner NURSE PRACTITIONER 12/13/20 01/23/21 Jayesh Lara DO Consulting Physician INTERNAL MEDICINE 12/13/20 1 documented as of this encounter
--- OUTSIDE RECORDS SUMMARY | 2024-09-21 01:14 | XMS_ITS | Encounter Summary ---
Author Organization [facility] Address [address] [facility] [place] [address] [place] [address] Care Team Providers Care Dial Polisher Name Role Phone Yolanda Dorsey LEATHER BELT MAKER Unavailable Jayesh Lara DO Primary Care Provider [phone] Encounter Details Date Type Department Care Team (Latest Contact Info) Description 11/27/2020 10:51 AM CAR DEALER - 11/27/2020 11:59 PM CAR DEALER Hospital Encounter [facility] [address] [place], [place] [id number] Jayesh Lara DO [address] [address] Discharge Disposition: Home or Self [...] Assessment Author Status No 07/29/2020 8:15 PM CAR DEALER Activ e * RETIRED Are you blind or do you have serious difficulty seeing, even when wearing glasses? Answer Date of Assessment Author Status No 07/29/2020 8:15 PM CAR DEALER Activ e * Do you have serious [...] 1 tablet by mouth daily. 07/30/2015 2 artificial tears 83-15 % ophthalmic ointment 3 (three) times a day. 2 aspirin 81 MG chewable tablet Chew 1 tablet by mouth daily. 12/29/2017 2 atorvastatin 40 MG tablet Take 40 mg by mouth nightly at bedtime. 2 Cholecalciferol (VITAMIN D3) 250 MCG (97479 UT) Tab Take 1 tablet by mouth daily. 2 cyanocobalamin 1000 MCG/ML injection Inject 1 mL into the muscle monthly. Give on 2 donepezil 10 MG Tab Take 10 mg by mouth daily. 2 fluconazole 150 MG tablet Take 150 mg by mouth weekly. x6 months 09/11/2020 1 glimepiride 4 MG tablet Take 4 mg by mouth every morning before breakfast. 1 HYDROcodone-acetam inophen 5-325 MG tabletIndications: Acute Pain < 7 Day Supply Take 1 tablet by mouth every 4 (four) hours as needed. Indications: Acute Pain < 7 Day Supply 15 tablet 08/01/2020 2 insulin aspart (NOVOLOG) 100 UNIT/ML injection (VIAL) Inject into the skin 2 (two) times daily with meals. <150= 0 units 151-200= 2 units 201-250= 4 units 251-300= 6 units 301-350= 8 units 351-400= 10 units >400= 12 units notify MD 2 insulin glargine 100 UNIT/ML injection (VIAL) Inject 15 Units into the skin nightly at bedtime. 2 lisinopril 10 MG tabletIndications: Essential hypertension Take 1 tablet (10 mg total) by mouth daily. 30 tablet 11/03/2018 2 loratadine 10 MG tablet Take 1 tablet by mouth daily. 10/06/2017 2 magnesium gluconate (MAGONATE) tablet Take 27 mg by mouth 2 (two) times daily. 2 magnesium hydroxide 400 MG/5ML suspension Take 30 mLs by mouth daily as needed for Constipation. 2 memantine ER (NAMENDA XR) 28 MG 24 hr capsule Take 1 capsule by mouth daily. 06/21/2013 1 metoprolol tartrate 25 MG tablet Take 25 mg by mouth 2 (two) times daily. 2 Multiple Vitamin (THERA-MILL) Tab Take 1 tablet by mouth daily. 10/06/2017 2 predniSONE 5 mg tablet Take 5 mg by mouth as needed. 04/26/2019 2 pregabalin 150 MG capsuleIndications :Type 2 diabetes mellitus with diabetic polyneuropathy, without long-term current use of insulin ([facility]/HCC [facility]/HCC) Take 1 capsule (150 mg total) by mouth 2 (two) times daily. 60 capsule 1 09/17/2020 2 saccharomyces boulardii (FLORASTOR) 250 MG capsule Take 1 capsule by mouth 2 (two) times daily. 2 documented as of this encounter Plan of Treatment Not on file documented as of this encounter Goals Goal Patient Goal Type Associated Problems Recent Progress Patient-Stated? Author Establish Plan for Regular Lab Work General No Marlys Sam RN documented as of this encounter Procedures Procedure Name Priority Date/Time Associated Diagnosis Comments URIC ACID BLOOD Routine 11/27/2020 10:25 AM CAR DEALER Hypouricemia documented in this encounter Results * (ABNORMAL) URIC ACID BLOOD (11/27/2020 10:25 AM CAR DEALER) URIC ACID 7.5(H) 2.6 - 6.0 MG/DL 11/27/2020 11:02 AM CAR DEALER [facility] 11/27/2020 10:2 5 AM CAR DEALER us Jayesh Lara DO LABORATORY Final Result Performing Organization Address City/State/[facility] Co de Phone Number [facility] [address] [place] [address], documented in this encounter Visit Diagnoses Diagnosis Hypouricemia Other abnormal blood chemistry documented in this encounter Care Teams Dial Polisher Relationship Specialty Start Date End Date Jayesh Lara DO PCP - General INTERNAL MEDICINE 02/24/20 12/12/20 Yolanda Dorsey NP Nurse Practitioner Nurse Practitioner Family 02/24/20 01/23/21 documented as of this encounter
--- OUTSIDE RECORDS SUMMARY | 2024-09-21 01:14 | XMS_ITS | Encounter Summary ---
Author Organization [facility] Address [address] [facility] [place] [address] [place] [address] Care Team Providers Care Supervisor Refractory Products Name Role Phone Yolanda Dorsey ASSOCIATE MARKETING MANAGER Unavailable Chris Higgins MD Primary Care Provider [phone] Giovanna Buck ASSOCIATE MARKETING MANAGER Unavailable [phone] Jayesh Lara DO Unavailable Encounter Details Date Type Department Care Team (Latest Contact Info) Description 12/24/2020 Scan HEALTH INFO SRVCS Scanned, Documents Social [...] Assessment Author Status No 07/29/2020 8:15 PM CELL BIOLOGIST Activ e * RETIRED Are you blind or do you have serious difficulty seeing, even when wearing glasses? Answer Date of Assessment Author Status No 07/29/2020 8:15 PM CELL BIOLOGIST Activ e * Do you have serious [...] on filedocumented in this encounter Care Teams Supervisor Refractory Products Relationship Specialty Start Date End Date Chris Higgins MD PCP - General HOSPITALIST 12/13/20 01/23/21 Yolanda Dorsey NP Nurse Practitioner Nurse Practitioner Family 02/24/20 01/23/21 Giovanna Buck NP Nurse Practitioner NURSE PRACTITIONER 12/13/20 01/23/21 Jayesh Lara DO Consulting Physician INTERNAL MEDICINE 12/13/20 1 documented as of this encounter
--- OUTSIDE RECORDS SUMMARY | 2024-09-21 01:14 | XMS_ITS | Encounter Summary ---
Author Organization [facility] Address [facility] [facility] [place] [address] [place] [address] Care Team Providers Care Sign Language Interpreter Name Role Phone Yolanda Dorsey BOTTOMER OPERATOR Unavailable Jayesh Lara DO Primary Care Provider [phone] Reason for Visit * Reason Onset Date Comments Medication 10/03/2020 Encounter Details Date Type Department Care Team (Late st Contact Info) Description 10/03/2020 MICROBIOLOGY LABORATORY MANAGER ONLY [facility] [address] [facility] [address] [place] [address] Yolanda Dorsey NP [address] [address] Medication Social History Tobacco Use Types Packs/Day [...] Assessment Author Status No 07/29/2020 8:15 PM TELECOMMUNICATIONS SUPPORT Activ e * RETIRED Are you blind or do you have serious difficulty seeing, even when wearing glasses? Answer Date of Assessment Author Status No 07/29/2020 8:15 PM TELECOMMUNICATIONS SUPPORT Activ e * Do you have serious difficulty walking or climbing stairs? Answer Date of Assessment Author Status Yes 07/29/2020 8:15 PM TELECOMMUNICATIONS SUPPORT Nirali Lyons R Shahab Active * Do you have difficulty dressing or bathing? Answer Date of Assessment Author Status Yes 07/29/2020 8:15 PM TELECOMMUNICATIONS SUPPORT Nirali Lyons R N Active * Because of a physical, mental, or emotional condition, do you have difficulty doing errands alone such as visiting a doctor's office or shopping? Answer Date of Assessment Author Status Yes 07/29/2020 8:15 PM TELECOMMUNICATIONS SUPPORT Nirali Lyons R N Active documented as of this encounter Mental Status * Because of a physical, mental, or emotional condition, do you have serious difficulty concentrating, remembering, or making decisions? Answer Entry Date Author Status Yes 07/29/2020 8:15 PM TELECOMMUNICATIONS SUPPORT Nirali Lyons R N Active documented in this encounter Progress Notes * Savanah Mehta LPN - 10/04/2020 2:08 PM CST Received information from patient's insurance stating insulin Aspart not covered. Yolanda Pryor APN updated with orders: Once insulin Aspart supply exhausted, please switch patient to Novolog with same dosing as Aspart. COMMUNICATIONS SUPPORT documented in this encounter Plan of Treatment Not on file documented as of this encounter Goals Goal Patient Goal Type Associated Problems Recent Progress Patient-Stated? Author Establish Plan for Regular Lab Work General No Marlys Sam RN documented as of this encounter Visit Diagnoses Not on filedocumented in this encounter Care Teams Sign Language Interpreter Relationship Specialty Start Date End Date Jayesh Lara DO PCP - General INTERNAL MEDICINE 02/24/20 12/12/20 Yolanda Dorsey NP Nurse Practitioner Nurse Practitioner Family 02/24/20 01/23/21 documented as of this encounter
--- OUTSIDE RECORDS SUMMARY | 2024-09-21 01:14 | XMS_ITS | Encounter Summary ---
Author Organization [facility] Address [address] [facility] [place] [address] [place] [address] Care Team Providers Care Psychometric Examiner Name Role Phone Yolanda Dorsey PROOF PLATE MAKER Unavailable Jayesh Lara DO Primary Care Provider [phone] Encounter Details Date Type Department Care Team (Late st Contact Info) Description 08/29/[address] [facility] [address] [place] [id number] Yolanda Dorsey NP [address] [address] Social History Tobacco Use Types [...] Assessment Author Status No 07/29/2020 8:15 PM USABILITY STRATEGIST Activ e * RETIRED Are you blind or do you have serious difficulty seeing, even when wearing glasses? Answer Date of Assessment Author Status No 07/29/2020 8:15 PM USABILITY STRATEGIST Activ e * Do you have serious [...] on filedocumented in this encounter Care Teams Psychometric Examiner Relationship Specialty Start Date End Date Jayesh Lara DO PCP - General INTERNAL MEDICINE 02/24/20 12/12/20 Yolanda Dorsey NP Nurse Practitioner Nurse Practitioner Family 02/24/20 01/23/21 documented as of this encounter
--- OUTSIDE RECORDS SUMMARY | 2024-09-21 01:14 | XMS_ITS | Encounter Summary ---
Author Organization [facility] Address [facility] [place] [address] [place] [address] Care Team Providers Care Satellite Television Installer Name Role Phone Yolanda Dorsey PLASTIC FRAME INSERTER Unavailable Chris Higgins MD Primary Care Provider [phone] Giovanna Buck PLASTIC FRAME INSERTER Unavailable [phone] Jayesh Lara DO Unavailable Reason for Visit * Reason Onset Date Comments Fax Documentation 12/24/2020 Encounter Details Date Type Department Care Team (Late st Contact Info) Description 12/24/2020 INSTRUMENT MAN ONLY [facility] [address] [address] Yolanda Dorsey NP [address] [address] Fax Documentation Social History Tobacco Use Types [...] Assessment Author Status No 07/29/2020 8:15 PM TECHNICAL RECRUITER Activ e * RETIRED Are you blind or do you have serious difficulty seeing, even when wearing glasses? Answer Date of Assessment Author Status No 07/29/2020 8:15 PM TECHNICAL RECRUITER Activ e * Do you have serious difficulty walking or climbing stairs? Answer Date of Assessment Author Status Yes 07/29/2020 8:15 PM TECHNICAL RECRUITER Nirali Lyons R N Active * Do you have difficulty dressing or bathing? Answer Date of Assessment Author Status Yes 07/29/2020 8:15 PM TECHNICAL RECRUITER Nirali Lyons R N Active * Because of a physical, mental, or emotional condition, do you have difficulty doing errands alone such as visiting a doctor's office or shopping? Answer Date of Assessment Author Status Yes 07/29/2020 8:15 PM TECHNICAL RECRUITER Nirali Lyons R N Active documented as of this encounter Mental Status * Because of a physical, mental, or emotional condition, do you have serious difficulty concentrating, remembering, or making decisions? Answer Entry Date Author Status Yes 07/29/2020 8:15 PM TECHNICAL RECRUITER Nirali Lyons R N Active documented in this encounter Progress Notes * Savanah Mehta LPN - 12/28/2020 3:47 PM CDT Facility reports No to c/o pain, bleeding or discharge. Orders: continue to monitor. Update provider in one week if improving or worsening. * Savanah Mehta LPN - 12/26/2020 12:25 PM CDT Yolanda Pryor APN reviewed fax documention: resident has 2 ulcers inside vaginal wall. Noted when performing yuri care. Orders: does patient have any c/o pain? Bleeding or discharge? documented in this encounter Plan of Treatment Not on file documented as of this encounter Goals Goal Patient Goal Type Associated Problems Recent Progress Patient-Stated? Author Establish Plan for Regular Lab Work General No Marlys Sam RN documented as of this encounter Visit Diagnoses Not on filedocumented in this encounter Care Teams Satellite Television Installer Relationship Specialty Start Date End Date Chris Higgins MD PCP - General HOSPITALIST 12/13/20 01/23/21 Yolanda Dorsey NP Nurse Practitioner Nurse Practitioner Family 02/24/20 01/23/21 Giovanna Buck NP Nurse Practitioner NURSE PRACTITIONER 12/13/20 01/23/21 Jayesh Lara DO Consulting Physician INTERNAL MEDICINE 12/13/20 1 documented as of this encounter
--- OUTSIDE RECORDS SUMMARY | 2024-09-21 01:14 | XMS_ITS | Encounter Summary ---
Author Organization [facility] Address [address] [facility] [place] [address] [place] [address] Care Team Providers Care Caramel Candy Maker Helper Name Role Phone Yolanda Dorsey TWISTING FRAME OPERATOR Unavailable Jayesh Lara DO Primary Care Provider [phone] Encounter Details Date Type Department Care Team (Latest Contact Info) Description 09/16/2020 Scan HEALTH INFO SRVCS Scanned, Documents Social [...] Assessment Author Status No 07/29/2020 8:15 PM CROP DUSTER Activ e * RETIRED Are you blind or do you have serious difficulty seeing, even when wearing glasses? Answer Date of Assessment Author Status No 07/29/2020 8:15 PM CROP DUSTER Activ e * Do you have serious difficulty walking or climbing stairs? Answer Date of Assessment Author Status Yes 07/29/2020 8:15 PM CROP DUSTER Nirali Lyons R N Active * Do you have difficulty dressing or bathing? Answer Date of Assessment Author Status Yes 07/29/2020 8:15 PM CROP DUSTER Nirali Lyons R N Active * Because [...] on filedocumented in this encounter Care Teams Caramel Candy Maker Helper Relationship Specialty Start Date End Date Jayesh Lara DO PCP - General INTERNAL MEDICINE 02/24/20 12/12/20 Yolanda Dorsey NP Nurse Practitioner Nurse Practitioner Family 02/24/20 01/23/21 documented as of this encounter
--- OUTSIDE RECORDS SUMMARY | 2024-09-21 01:14 | XMS_ITS | Encounter Summary ---
Author Organization [facility] Address [address] [place] [address] [place] [address] Care Team Providers Care Instructor Physical Name Role Phone Yolanda Dorsey REGISTERED NURSES Unavailable Jayesh Lara DO Primary Care Provider [phone] Encounter Details Date Type Department Care Team (Latest Contact Info) Description 09/11/2020 Scan HEALTH INFO SRVCS Scanned, Documents Social [...] Assessment Author Status No 07/29/2020 8:15 PM VEHICLE DAMAGE APPRAISER Activ e * RETIRED Are you blind or do you have serious difficulty seeing, even when wearing glasses? Answer Date of Assessment Author Status No 07/29/2020 8:15 PM VEHICLE DAMAGE APPRAISER Activ e * Do you have serious difficulty walking or climbing stairs? Answer Date of Assessment Author Status Yes 07/29/2020 8:15 PM VEHICLE DAMAGE APPRAISER Nirali Lyons R N Active * Do you have difficulty dressing or bathing? Answer Date of Assessment Author Status Yes 07/29/2020 8:15 PM VEHICLE DAMAGE APPRAISER Nirali Lyons R N Active * Because [...] on filedocumented in this encounter Care Teams Instructor Physical Relationship Specialty Start Date End Date Jayesh Lara DO PCP - General INTERNAL MEDICINE 02/24/20 12/12/20 Yolanda Dorsey NP Nurse Practitioner Nurse Practitioner Family 02/24/20 01/23/21 documented as of this encounter
--- OUTSIDE RECORDS SUMMARY | 2024-09-21 01:14 | XMS_ITS | Encounter Summary ---
Author Organization [facility] Address [address] [facility] [place] [address] [place] [address] Care Team Providers Care Intelligence Director Name Role Phone Yolanda Dorsey WOOD WINDOW AND DOOR CRAFTSMAN Unavailable Jayesh Lara DO Primary Care Provider [phone] Encounter Details Date Type Department Care Team (Late st Contact Info) Description 11/27/2020 Chart Prep [facility] [address] [facility] [address] [place] [address] Yolanda Dorsey NP [address] [address] Social History Tobacco Use Types Packs/Day Years [...] Assessment Author Status No 07/29/2020 8:15 PM LUMBER SALES SUPERVISOR Activ e * RETIRED Are you blind or do you have serious difficulty seeing, even when wearing glasses? Answer Date of Assessment Author Status No 07/29/2020 8:15 PM LUMBER SALES SUPERVISOR Activ e * Do you have serious [...] on filedocumented in this encounter Care Teams Intelligence Director Relationship Specialty Start Date End Date Jayesh Lara DO PCP - General INTERNAL MEDICINE 02/24/20 12/12/20 Yolanda Dorsey NP Nurse Practitioner Nurse Practitioner Family 02/24/20 01/23/21 documented as of this encounter
--- OUTSIDE RECORDS SUMMARY | 2024-09-21 01:14 | XMS_ITS | Encounter Summary ---
Author Organization [facility] Address [address] [facility] [place] [address] [place] [address] Care Team Providers Care Community Engagement Specialist Name Role Phone Yolanda Dorsey CYBER CRIME INVESTIGATOR Unavailable Jayesh Lara DO Primary Care Provider [phone] Reason for Visit * Reason Comments Fdc Routine Encounter Details Date Type Department Care Team (Late st Contact Info) Description 10/12/2020 9:20 AM COOLING PAN TENDER Fdc [facility] Nursing [facility] [address] [facility] [address] [place] [address] Jayesh Lara DO [address] [id number] Fdc (Routine ) Social History Tobacco Use Types Packs/Day Years Used Date Smoking Tobacco: Unknown Comments Unknown Sex and Gender Information Value Date Recorded Sex Assigned at Not on file Legal Sex Female 10:25 PM CDT Gender Identity Not on file Sexual Orientation Not on file documented as of this encounter Last Filed Vital Signs Vital Sign Reading Time Taken Comments Blood Pressure 127/77 10/12/2020 8:50 AM COOLING PAN TENDER Pulse 64 10/12/2020 8:50 AM COOLING PAN TENDER Temperature 36.4 ??C (97.6 ??F) 10/12/2020 8:50 AM CS T Respiratory Rate 20 10/12/2020 8:50 AM COOLING PAN TENDER Oxygen Saturation - - Inhaled Oxygen Concentration - - Weight - - Height - - Body Mass Index - - documented in this encounter Functional Status * RETIRED Are you deaf or do you have serious difficulty hearing Answer Date of Assessment Author Status No 07/29/2020 8:15 PM COOLING PAN TENDER Activ e * RETIRED Are you blind or do you have serious difficulty seeing, even when wearing glasses? Answer Date of Assessment Author Status No 07/29/2020 8:15 PM COOLING PAN TENDER Activ e * Do you have serious difficulty walking or climbing stairs? Answer Date of Assessment Author Status Yes 07/29/2020 8:15 PM COOLING PAN TENDER Nirali Lyons R N Active * Do you have difficulty dressing or bathing? Answer Date of Assessment Author Status Yes 07/29/2020 8:15 PM COOLING PAN TENDER Nirali Lyons R N Active * Because of a physical, mental, or emotional condition, do you have difficulty doing errands alone such as visiting a doctor's office or shopping? Answer Date of Assessment Author Status Yes 07/29/2020 8:15 PM COOLING PAN TENDER Nirali Lyons R N Active documented as of this encounter Mental Status * Because of a physical, mental, or emotional condition, do you have serious difficulty concentrating, remembering, or making decisions? Answer Entry Date Author Status Yes 07/29/2020 8:15 PM COOLING PAN TENDER Nirali Lyons R N Active documented in this encounter Progress Notes * Jayesh Lara, - 10/12/2020 9:20 AM CST Skilled/[facility] note Emelina Santoyo 80-year-old 1940 N [id number] [facility] [id number] female ? CC: hyperlipidemia hypertension diabetes* Hyperlipidemia. Lipitor. No muscle pain reported. hypertension. Norvasc. No hypotension. Type 2 diabetes insulin-dependent. No hypoglycemia ASSESSMENT AND PLAN: dementia. Stable. Hyperlipidemia. Lipitor. Stable. Essential hypertension. Norvasc. Stable. Type 2 diabetes insulin-dependent. Monitoring Accu-Cheks. ? -Social-pt has no questions /family has no questions according to nursing staff Old records requested and reviewed as above from [facility] and skilled nursing records Past Medical History: Diagnosis Date ??? Cholecystitis, unspecified 02/09/2019 ??? Chronic indwelling Zhang catheter Social- no smoking, alcohol, drugs ? family history Family History Family history unknown: Yes * Allergies Allergen Reactions ??? Metronidazole Unknown Current Outpatient Medications on File Prior to Visit Medication Sig Dispense Refill ??? acetaminophen 325 MG tablet Take 650 mg by mouth every 4 (four) hours as needed for Pain. ??? amlodipine 10 MG tablet Take 1 tablet by mouth daily. ??? artificial tears 83-15 % ophthalmic ointment 3 (three) times a day. ??? aspirin 81 MG chewable tablet Chew 1 tablet by mouth daily. ??? atorvastatin 40 MG tablet Take 80 mg by mouth daily. ??? Cholecalciferol (VITAMIN D3) 250 MCG (28634 UT) Tab Take 1 tablet by mouth daily. ??? cranberry 450 MG Tab tablet Take 450 mg by mouth daily. ??? cyanocobalamin 1000 MCG/ML injection Inject 1 mL into the muscle monthly. Give on of month ??? docosanol (ABREVA) 10 % cream Apply topically 5 (five) times daily. ??? donepezil 10 MG Tab Take 10 mg by mouth 2 (two) times daily. ??? fluconazole 150 MG tablet Take 150 mg by mouth weekly. x6 months ??? glimepiride 4 MG tablet Take 4 mg by mouth every morning before breakfast. ??? HYDROcodone-acetaminophen 5-325 MG tablet Take 1 [...] insulin glargine 100 UNIT/ML injection (VIAL) Inject 10 Units into the skin nightly at bedtime. [...] mouth daily as needed for Constipation. ??? memantine ER (NAMENDA XR) 28 MG 24 hr capsule Take 1 capsule by mouth daily. ??? metoprolol tartrate 25 MG tablet Take 25 mg by mouth 2 (two) times daily. ??? Multiple Vitamin (THERA-MILL) Tab Take 1 tablet by mouth daily. ??? nystatin powder Apply topically daily as needed. ??? polyvinyl alcohol 1.4 % ophthalmic solution Place 1 drop into both eyes 3 (three) times daily. ??? predniSONE 5 mg tablet Take 5 mg by mouth as needed. ??? pregabalin 150 MG capsule Take 1 capsule (150 mg total) by mouth 2 (two) times daily. 60 capsule 1 ??? saccharomyces boulardii (FLORASTOR) 250 MG capsule Take 1 capsule by mouth 2 (two) times daily. No current facility-administered medications on file prior to visit. ROS: unable confusion EXAM: Vitals below GENERAL: appeared to be in no acute distress. Examined toe with nurse left great toe appears to be healing EYES: No discharge EARS, NOSE, THROAT: Moist mucous membranes. Respiratory: no distress Cardiovascular: perfusion good to extremities Gastrointestinal: Obese abdomen. No grimace to palpation GENITOURINARY: No appreciable suprapubic tenderness. MUSCULOSKELETAL: No ankle swelling. NEUROLOGIC: follows commands HEM/ONC: No apparent bleed. PSYCHIATRIC: Calm. Mood appropriate, alert and oriented x 1-2 vitals Filed Vitals: 10/12/20 0850 BP: 127/77 Pulse: 64 Resp: 20 Temp: 97.6 ??F (36.4 ??C) ? ? Lab Results Lab Results Component Value Date/Time WBC 5.1 08/08/2020 02:40 PM HGB 14.9 08/08/2020 02:40 PM ING PAN TENDER documented in this encounter Plan of Treatment Not on file documented as of this encounter Goals Goal Patient Goal Type Associated Problems Recent Progress Patient-Stated? Author Establish Plan for Regular Lab Work General No Marlys Sam RN documented as of this encounter Visit Diagnoses Diagnosis Hyperlipidemia, unspecified hyperlipidemia type- Primary documented in this encounter Care Teams Community Engagement Specialist Relationship Specialty Start Date End Date Jayesh Lara DO PCP - General INTERNAL MEDICINE 02/24/20 12/12/20 Yolanda Dorsey NP Nurse Practitioner Nurse Practitioner Family 02/24/20 01/23/21 documented as of this encounter
--- OUTSIDE RECORDS SUMMARY | 2024-09-21 01:14 | XMS_ITS | Encounter Summary ---
Author Organization [facility] Address [address] [facility] [place] [address] [place] [address] Care Team Providers Care Machine Icer Name Role Phone Yolanda Dorsey SOFTWARE PROJECT LEAD Unavailable Jayesh Lara DO Primary Care Provider [phone] Encounter Details Date Type Department Care Team (Late st Contact Info) Description 11/14/2020 Chart Prep [facility] [address] [facility] [address] [place] [address] Yolanda Dorsey NP [address] [id number] Social History Tobacco Use Types Packs/Day Years [...] Assessment Author Status No 07/29/2020 8:15 PM CAPITAL MARKETS SPECIALIST Activ e * RETIRED Are you blind or do you have serious difficulty seeing, even when wearing glasses? Answer Date of Assessment Author Status No 07/29/2020 8:15 PM CAPITAL MARKETS SPECIALIST Activ e * Do you have [...] on filedocumented in this encounter Care Teams Machine Icer Relationship Specialty Start Date End Date Jayesh Lara DO PCP - General INTERNAL MEDICINE 02/24/20 12/12/20 Yolanda Dorsey NP Nurse Practitioner Nurse Practitioner Family 02/24/20 01/23/21 documented as of this encounter
--- OUTSIDE RECORDS SUMMARY | 2024-09-21 01:14 | XMS_ITS | Encounter Summary ---
Author Organization [facility] Address [facility] [facility] [place] [address] [place] [address] Care Team Providers Care Gas Plant Dispatcher Name Role Phone Yolanda Dorsey CYBER SPECIAL AGENT Unavailable Jayesh Lara DO Primary Care Provider [phone] Reason for Visit * Reason Comments Fax Documentation med change Encounter Details Date Type Department Care Team (Latest Contact Info) Description 12/07/2020 QUALITY CONTROL LEAD ONLY [facility] [address] [place] [id number] Yolanda Dorsey, SHANKAR [address] [address] Fax Documentation (med change) Social History Tobacco Use Types Packs/Day Years [...] Assessment Author Status No 07/29/2020 8:15 PM FRAME TENDER Activ e * RETIRED Are you blind or do you have serious difficulty seeing, even when wearing glasses? Answer Date of Assessment Author Status No 07/29/2020 8:15 PM FRAME TENDER Activ e * Do you have serious difficulty walking or climbing stairs? Answer Date of Assessment Author Status Yes 07/29/2020 8:15 PM FRAME TENDER Nirali Lyons R N Active * Do you have difficulty dressing or bathing? Answer Date of Assessment Author Status Yes 07/29/2020 8:15 PM FRAME TENDER Nirali Lyons R N Active * Because of a physical, mental, or emotional condition, do you have difficulty doing errands alone such as visiting a doctor's office or shopping? Answer Date of Assessment Author Status Yes 07/29/2020 8:15 PM FRAME TENDER Nirali Lyons R N Active documented as of this encounter Mental Status * Because of a physical, mental, or emotional condition, do you have serious difficulty concentrating, remembering, or making decisions? Answer Entry Date Author Status Yes 07/29/2020 8:15 PM FRAME TENDER Nirali Lyons R N Active documented in this encounter Progress Notes * Dorothy Guo Elenita - 12/07/2020 4:16 PM CST Facility faxed: Pt does not swallow pills and takes her meds crushed. Pharmacy recommends tht the following medication not be crushed. Memantine and Donepezil. She takes the Memantine daily at 8 am and her Donepezil bid. May we have order to switched these meds to something liquid or safe to crush?Was also put on fish oil bid. We have to cut these open is that ok? Order: d/c namzaric and start namenda IR 10 mg po bid and donepezil IR 10 mg po qhs. Fish oil does come in liquid form, ok to switch to liquid if patient tolerates. E TENDER documented in this encounter Plan of Treatment Not on file documented as of this encounter Goals Goal Patient Goal Type Associated Problems Recent Progress Patient-Stated? Author Establish Plan for Regular Lab Work General No Marlys Sam RN documented as of this encounter Visit Diagnoses Not on filedocumented in this encounter Care Teams Gas Plant Dispatcher Relationship Specialty Start Date End Date Jayesh Lara DO PCP - General INTERNAL MEDICINE 02/24/20 12/12/20 Yolanda Dorsey NP Nurse Practitioner Nurse Practitioner Family 02/24/20 01/23/21 documented as of this encounter
--- OUTSIDE RECORDS SUMMARY | 2024-09-21 01:14 | XMS_ITS | Encounter Summary ---
Author Organization [facility] Address [address] [place] [address] [place] [address] Care Team Providers Care Motion Picture Scene Builder Name Role Phone Yolanda Dorsey WARP SPOOLER Unavailable Jayesh Lara DO Primary Care Provider [phone] Chris Higgins MD Primary Care Provider [phone] Giovanna Buck WARP SPOOLER Unavailable [phone] Jayesh Lara DO Unavailable Reason for Visit * Reason Onset Date Comments Medication 11/29/2020 Pharmacy recomme ndation Encounter Details Date Type Department Care Team (Latest Contact Info) Description 11/29/2020 TIRE INSTALLER ONLY [facility] [address] [address] Yolanda Dorsey NP [address] [address] Medication (Pharmacy recommendation ) Social History Tobacco Use Types Packs/Day [...] Assessment Author Status No 07/29/2020 8:15 PM KETTLE TENDER Activ e * RETIRED Are you blind or do you have serious difficulty seeing, even when wearing glasses? Answer Date of Assessment Author Status No 07/29/2020 8:15 PM KETTLE TENDER Activ e * Do you have serious difficulty walking or climbing stairs? Answer Date of Assessment Author Status Yes 07/29/2020 8:15 PM KETTLE TENDER Nirali Lyons R Shahab Active * Do you have difficulty dressing or bathing? Answer Date of Assessment Author Status Yes 07/29/2020 8:15 PM KETTLE TENDER Nirali Lyons R N Active * Because of a physical, mental, or emotional condition, do you have difficulty doing errands alone such as visiting a doctor's office or shopping? Answer Date of Assessment Author Status Yes 07/29/2020 8:15 PM KETTLE TENDER Nirali Lyons R N Active documented as of this encounter Mental Status * Because of a physical, mental, or emotional condition, do you have serious difficulty concentrating, remembering, or making decisions? Answer Entry Date Author Status Yes 07/29/2020 8:15 PM KETTLE TENDER Nirali Lyons, R N Active documented in this encounter Progress Notes * Savanah Mehta LPN - 12/14/2020 12:44 PM CDT Yolanda Pryor APN reviewed pharmacy recommendation: patient receiving Glimepiride 4mg daily. This long-acting agent is typically not recommended in the elderly due to its prolonged half-life and increased chances for hypoglycemia. Change Glimepiride 4mg daily to Glipizide 5mg daily? (Or discontinue if possible) Orders: D/C Glimepiride and increase Lantus to 15 units SC QHS. Repeat A1C in 3 months. documented in this encounter Plan of Treatment Not on file documented as of this encounter Goals Goal Patient Goal Type Associated Problems Recent Progress Patient-Stated? Author Establish Plan for Regular Lab Work General No Marlys Sam RN documented as of this encounter Visit Diagnoses Not on filedocumented in this encounter Care Teams Motion Picture Scene Builder Relationship Specialty Start Date End Date Jayesh [...]
--- OUTSIDE RECORDS SUMMARY | 2024-09-21 01:14 | XMS_ITS | Encounter Summary ---
Author Organization [facility] Address [facility] [place] [address] [place] [address] Care Team Providers Care Stand Up Forklift Operator Name Role Phone Yolanda Dorsey INJECTION MOLDING MACHINE TENDER Unavailable Jayesh Lara DO Primary Care Provider [phone] Reason for Visit * Reason Onset Date Comments Fax Documentation 10/10/2020 eye Encounter Details Date Type Department Care Team (Latest Contact Info) Description 10/10/2020 MELTER SUPERVISOR ONLY [facility] [address] [facility] [address] [place] [address] Yolanda Dorsey, SHANKAR [address] [address] Fax Documentation (eye) Social History Tobacco Use Types Packs/Day Years [...] Assessment Author Status No 07/29/2020 8:15 PM MANAGER DELI Activ e * RETIRED Are you blind or do you have serious difficulty seeing, even when wearing glasses? Answer Date of Assessment Author Status No 07/29/2020 8:15 PM MANAGER DELI Activ e * Do you have serious difficulty walking or climbing stairs? Answer Date of Assessment Author Status Yes 07/29/2020 8:15 PM MANAGER DELI Nirali Lyons R N Active * Do you have difficulty dressing or bathing? Answer Date of Assessment Author Status Yes 07/29/2020 8:15 PM MANAGER DELI Nirali Lyons R N Active * Because of a physical, mental, or emotional condition, do you have difficulty doing errands alone such as visiting a doctor's office or shopping? Answer Date of Assessment Author Status Yes 07/29/2020 8:15 PM MANAGER DELI Nirali Lyons R N Active documented as of this encounter Mental Status * Because of a physical, mental, or emotional condition, do you have serious difficulty concentrating, remembering, or making decisions? Answer Entry Date Author Status Yes 07/29/2020 8:15 PM MANAGER DELI Nirali Lyons R N Active documented in this encounter Progress Notes * Savanah Mehat LPN - 10/10/2020 4:01 PM CST Facility states patient already uses genteal tear eye drops TID. Yolanda Pryor APN updated with orders: Start with warm compresses. GER DELI * Dorothy Kwong - 10/10/2020 12:15 PM CST Facility faxed: Residents L eye noted to be pink underneath, minimal green drainage, increased watering, denies pain or discomfort. Order: Please use clean, warm compresses q2h and artificial tear ointment tid until improved. Notify provider if no improvement in 48 h. GER DELI documented in this encounter Plan of Treatment Not on file documented as of this encounter Goals Goal Patient Goal Type Associated Problems Recent Progress Patient-Stated? Author Establish Plan for Regular Lab Work General No Marlys Sam RN documented as of this encounter Visit Diagnoses Not on filedocumented in this encounter Care Teams Stand Up Forklift Operator Relationship Specialty Start Date End Date Jayesh Lara DO PCP - General INTERNAL MEDICINE 02/24/20 12/12/20 Yolanda Dorsey NP Nurse Practitioner Nurse Practitioner Family 02/24/20 01/23/21 documented as of this encounter
--- OUTSIDE RECORDS SUMMARY | 2024-09-21 01:14 | XMS_ITS | Encounter Summary ---
Author Organization [facility] Address [address] [place] [address] [place] [address] Care Team Providers Care Cigar Head Pegger Name Role Phone Yolanda Dorsey DRYWALL TAPER Unavailable Jayesh Lara DO Primary Care Provider [phone] Encounter Details Date Type Department Care Team (Latest Contact Info) Description 11/12/2020 Scan HEALTH INFO SRVCS Scanned, Documents Social [...] Assessment Author Status No 07/29/2020 8:15 PM DIGITAL ADVISOR Activ e * RETIRED Are you blind or do you have serious difficulty seeing, even when wearing glasses? Answer Date of Assessment Author Status No 07/29/2020 8:15 PM DIGITAL ADVISOR Activ e * Do you have serious difficulty walking or climbing stairs? Answer Date of Assessment Author Status Yes 07/29/2020 8:15 PM DIGITAL ADVISOR Nirali Lyons R N Active * Do you have difficulty dressing or bathing? Answer Date of Assessment Author Status Yes 07/29/2020 8:15 PM DIGITAL ADVISOR Nirali Lyons R N Active * Because [...] on filedocumented in this encounter Care Teams Cigar Head Pegger Relationship Specialty Start Date End Date Jayesh Lara DO PCP - General INTERNAL MEDICINE 02/24/20 12/12/20 Yolanda Dorsey NP Nurse Practitioner Nurse Practitioner Family 02/24/20 01/23/21 documented as of this encounter
--- OUTSIDE RECORDS SUMMARY | 2024-09-21 01:14 | XMS_ITS | Encounter Summary ---
Author Organization [facility] Address [address] [place] [address] [place] [address] Care Team Providers Care Treadle Cut Off Saw Operator Name Role Phone Yolanda Dorsey GAS AND OIL SERVICER Unavailable Chris Higgins MD Primary Care Provider [phone] Giovanna Buck GAS AND OIL SERVICER Unavailable Jayesh Lara DO Unavailable Encounter Details Date Type Department Care Team (Latest Contact Info) Description 01/02/2021 Scan HEALTH INFO SRVCS Scanned, Documents Social [...] Assessment Author Status No 07/29/2020 8:15 PM ENGINEERING PROJECT DESIGNER Activ e * RETIRED Are you blind or do you have serious difficulty seeing, even when wearing glasses? Answer Date of Assessment Author Status No 07/29/2020 8:15 PM ENGINEERING PROJECT DESIGNER Activ e * Do you have serious [...] on filedocumented in this encounter Care Teams Treadle Cut Off Saw Operator Relationship Specialty Start Date End Date Chris Higgins MD PCP - General HOSPITALIST 12/13/20 01/23/21 Yolanda Dorsey NP Nurse Practitioner Nurse Practitioner Family 02/24/20 01/23/21 Giovanna Buck NP Nurse Practitioner NURSE PRACTITIONER 12/13/20 01/23/21 Jayesh Lara DO Consulting Physician INTERNAL MEDICINE 12/13/20 1 documented as of this encounter
--- OUTSIDE RECORDS SUMMARY | 2024-09-21 01:14 | XMS_ITS | Encounter Summary ---
Author Organization [facility] Address [facility] [facility] [place] [address] [place] [address] Care Team Providers Care Sustainability Coach Name Role Phone Yolanda Dorsey ACCOUNT GROUP SUPERVISOR Unavailable Jaeysh Lara DO Primary Care Provider [phone] Reason for Visit * Reason Onset Date Comments Fax Documentation 09/11/2020 Encounter Details Date Type Department Care Team (Late st Contact Info) Description 09/11/2020 BILLBOARD MECHANIC ONLY [facility] [address] [address] Yolanda Dorsey NP [address] [phone] Fax Documentation Social History Tobacco Use Types [...] Assessment Author Status No 07/29/2020 8:15 PM PAINTER AIRBRUSH Activ e * RETIRED Are you blind or do you have serious difficulty seeing, even when wearing glasses? Answer Date of Assessment Author Status No 07/29/2020 8:15 PM PAINTER AIRBRUSH Activ e * Do you have serious difficulty walking or climbing stairs? Answer Date of Assessment Author Status Yes 07/29/2020 8:15 PM PAINTER AIRBRUSH Nirali Lyons R N Active * Do you have difficulty dressing or bathing? Answer Date of Assessment Author Status Yes 07/29/2020 8:15 PM PAINTER AIRBRUSH Nirali Lyons R N Active * Because of a physical, mental, or emotional condition, do you have difficulty doing errands alone such as visiting a doctor's office or shopping? Answer Date of Assessment Author Status Yes 07/29/2020 8:15 PM PAINTER AIRBRUSH Nirali Lyons R N Active documented as of this encounter Mental Status * Because of a physical, mental, or emotional condition, do you have serious difficulty concentrating, remembering, or making decisions? Answer Entry Date Author Status Yes 07/29/2020 8:15 PM PAINTER AIRBRUSH Nirali Lyons R N Active documented in this encounter Progress Notes * Savanah Metha LPN - 09/11/2020 2:03 PM CST Received fax from [facility]: Left great toe is red and draining again. C/o pain when touched. Drainage is bloody and clear to white. Yolanda Pryor APN updated with orders: Give Doxycycline 100mg PO BID x7 days. Diflucan 150mg PO every week x6 months. Probiotic PO BID x10 days. Consult podiatry. TER AIRBRUSH documented in this encounter Plan of Treatment Not on file documented as of this encounter Goals Goal Patient Goal Type Associated Problems Recent Progress Patient-Stated? Author Establish Plan for Regular Lab Work General No Marlys Sam RN documented as of this encounter Visit Diagnoses Not on filedocumented in this encounter Care Teams Sustainability Coach Relationship Specialty Start Date End Date Jayesh Lara DO PCP - General INTERNAL MEDICINE 02/24/20 12/12/20 Yolanda Dorsey NP Nurse Practitioner Nurse Practitioner Family 02/24/20 01/23/21 documented as of this encounter
--- OUTSIDE RECORDS SUMMARY | 2024-09-21 01:14 | XMS_ITS | Encounter Summary ---
Author Organization [facility] Address [address] [facility] [place] [address] [place] [address] Care Team Providers Care Trade Embalmer Name Role Phone Yolanda Dorsey RESIDENTIAL PROPERTY MANAGER Unavailable Jayesh Lara DO Primary Care Provider [phone] Encounter Details Date Type Department Care Team (Latest Contact Info) Description 11/19/2020 11:54 AM STUDENT DEVELOPMENT ADVISOR - 11/19/2020 11:59 PM STUDENT DEVELOPMENT ADVISOR Hospital Encounter [facility] [address] [place], [place] [id number] Jayesh Lara DO [address] [address] Discharge Disposition: Home or Self [...] Assessment Author Status No 07/29/2020 8:15 PM STUDENT DEVELOPMENT ADVISOR Activ e * RETIRED Are you blind or do you have serious difficulty seeing, even when wearing glasses? Answer Date of Assessment Author Status No 07/29/2020 8:15 PM STUDENT DEVELOPMENT ADVISOR Activ e * Do you have [...] 80 mg by mouth daily. 04/01/2019 1 Cholecalciferol (VITAMIN D3) 250 MCG (97657 UT) Tab Take 1 tablet by mouth daily. 2 cyanocobalamin 1000 MCG/ML injection Inject 1 mL into the muscle monthly. Give on of 2 donepezil 10 MG Tab Take 10 [...] powder Apply topically daily as needed. 1 predniSONE 5 mg tablet Take 5 mg by mouth as needed. 04/26/2019 2 pregabalin 150 MG capsuleIndications :Type 2 diabetes mellitus with diabetic polyneuropathy, without long-term current use of insulin ([facility]) Take 1 capsule (150 mg total) by [...] on filedocumented in this encounter Care Teams Trade Embalmer Relationship Specialty Start Date End Date Jayesh Lara DO PCP - General INTERNAL MEDICINE 02/24/20 12/12/20 Yolanda Dorsey NP Nurse Practitioner Nurse Practitioner Family 02/24/20 01/23/21 documented as of this encounter
--- OUTSIDE RECORDS SUMMARY | 2024-09-21 01:14 | XMS_ITS | Encounter Summary ---
Author Organization [facility] Address [facility] [facility] [place] [address] [place] [address] Care Team Providers Care Sock And Stocking Ironer Name Role Phone Yolanda Dorsey MEMBER SERVICE REPRESENTATIVE Unavailable Jayesh Lara DO Primary Care Provider [phone] Reason for Visit * Reason Onset Date Comments Fax Documentation 10/05/2020 Encounter Details Date Type Department Care Team (Late st Contact Info) Description 10/05/2020 DIRECTOR OF EMERGENCY NURSING ONLY [facility] [address] [facility] 112 [place] [address] Yolanda Dorsey, SHANKAR [address] [address] Fax Documentation Social History Tobacco Use Types [...] Assessment Author Status No 07/29/2020 8:15 PM QUAIL FARMER Activ e * RETIRED Are you blind or do you have serious difficulty seeing, even when wearing glasses? Answer Date of Assessment Author Status No 07/29/2020 8:15 PM QUAIL FARMER Activ e * Do you have serious difficulty walking or climbing stairs? Answer Date of Assessment Author Status Yes 07/29/2020 8:15 PM QUAIL FARMER Nirali Lyons R N Active * Do you have difficulty dressing or bathing? Answer Date of Assessment Author Status Yes 07/29/2020 8:15 PM QUAIL FARMER Nirali Lyons R N Active * Because of a physical, mental, or emotional condition, do you have difficulty doing errands alone such as visiting a doctor's office or shopping? Answer Date of Assessment Author Status Yes 07/29/2020 8:15 PM QUAIL FARMER Nirali Lyons R N Active documented as of this encounter Mental Status * Because of a physical, mental, or emotional condition, do you have serious difficulty concentrating, remembering, or making decisions? Answer Entry Date Author Status Yes 07/29/2020 8:15 PM QUAIL FARMER Nirali Lyons R N Active documented in this encounter Progress Notes * Savanah Mehta LPN - 10/05/2020 3:22 PM CST Received fax from [facility]: Patient has cold sore to left upper lip, blisters are intact. No c/o pain or discomfort. No drainage noted. Yolanda Pryor APN updated with orders: Please start Abreva 5x/day topically to area until healed. Notify provider if no improvement. L FARMER documented in this encounter Plan of Treatment Not on file documented as of this encounter Goals Goal Patient Goal Type Associated Problems Recent Progress Patient-Stated? Author Establish Plan for Regular Lab Work General No Marlys Sam RN documented as of this encounter Visit Diagnoses Not on filedocumented in this encounter Care Teams Sock And Stocking Ironer Relationship Specialty Start Date End Date Jayesh Lara DO PCP - General INTERNAL MEDICINE 02/24/20 12/12/20 Yolanda Dorsey NP Nurse Practitioner Nurse Practitioner Family 02/24/20 01/23/21 documented as of this encounter
--- OUTSIDE RECORDS SUMMARY | 2024-09-21 01:14 | XMS_ITS | Encounter Summary ---
Author Organization [facility] Address [facility] [facility] [place] [address] [place] [address] Care Team Providers Care High Rigger Name Role Phone Yolanda Dorsey VEGETABLE HARVEST MACHINE OPERATOR Unavailable Jayesh Lara DO Primary Care Provider [phone] Reason for Visit * Reason Onset Date Comments Fax Documentation 10/04/2020 Encounter Details Date Type Department Care Team (Late st Contact Info) Description 10/04/2020 RACKING TECHNICIAN ONLY [facility] [address] [facility] 112 [place] [address] Yolanda Dorsey, SHANKAR [address] [address] Fax Documentation Social History Tobacco [...] Assessment Author Status No 07/29/2020 8:15 PM CREDIT RISK SPECIALIST Activ e * RETIRED Are you blind or do you have serious difficulty seeing, even when wearing glasses? Answer Date of Assessment Author Status No 07/29/2020 8:15 PM CREDIT RISK SPECIALIST Activ e * Do you have serious difficulty walking or climbing stairs? Answer Date of Assessment Author Status Yes 07/29/2020 8:15 PM CREDIT RISK SPECIALIST Nirali Lyons R N Active * Do you have difficulty dressing or bathing? Answer Date of Assessment Author Status Yes 07/29/2020 8:15 PM CREDIT RISK SPECIALIST Nirali Lyons R N Active * Because of a physical, mental, or emotional condition, do you have difficulty doing errands alone such as visiting a doctor's office or shopping? Answer Date of Assessment Author Status Yes 07/29/2020 8:15 PM CREDIT RISK SPECIALIST Nirali Lyons R N Active documented as of this encounter Mental Status * Because of a physical, mental, or emotional condition, do you have serious difficulty concentrating, remembering, or making decisions? Answer Entry Date Author Status Yes 07/29/2020 8:15 PM CREDIT RISK SPECIALIST Nirali Lyons R N Active documented in this encounter Progress Notes * Savanah Mehta LPN - 10/04/2020 3:35 PM CST Received fax from [facility]: Pharmacy does not make Vitamin D 88676 units in tablets. [place] [address]3888 units tabs daily instead of previous order? Yolanda Pryor APN updated with orders: [place] 28835 units PO daily IT RISK SPECIALIST documented in this encounter Plan of Treatment Not on file documented as of this encounter Goals Goal Patient Goal Type Associated Problems Recent Progress Patient-Stated? Author Establish Plan for Regular Lab Work General No Marlys Sam RN documented as of this encounter Visit Diagnoses Not on filedocumented in this encounter Care Teams High Rigger Relationship Specialty Start Date End Date Jayesh Lara DO PCP - General INTERNAL MEDICINE 02/24/20 12/12/20 Yolanda Dorsey NP Nurse Practitioner Nurse Practitioner Family 02/24/20 01/23/21 documented as of this encounter
--- OUTSIDE RECORDS SUMMARY | 2024-09-21 01:14 | XMS_ITS | Encounter Summary ---
Author Organization [facility] Address [address] [facility] [place] [address] [place] [address] Care Team Providers Care Operator/Assistant Foreman Name Role Phone Yolanda Dorsey CHILD THERAPIST Unavailable Jayesh Lara DO Primary Care Provider [phone] Encounter Details Date Type Department Care Team (Late st Contact Info) Description 09/12/2020 Chart Prep [facility] [address] [facility] [address] [place] [address] Yolanda Dorsey NP [address] [address] Social History Tobacco Use Types [...] Assessment Author Status No 07/29/2020 8:15 PM IMPROVEMENT DIRECTOR Activ e * RETIRED Are you blind or do you have serious difficulty seeing, even when wearing glasses? Answer Date of Assessment Author Status No 07/29/2020 8:15 PM IMPROVEMENT DIRECTOR Activ e * Do you have serious [...] on filedocumented in this encounter Care Teams Operator/Assistant Foreman Relationship Specialty Start Date End Date Jayesh Lara DO PCP - General INTERNAL MEDICINE 02/24/20 12/12/20 Yolanda Dorsey NP Nurse Practitioner Nurse Practitioner Family 02/24/20 01/23/21 documented as of this encounter
--- OUTSIDE RECORDS SUMMARY | 2024-09-21 01:14 | XMS_ITS | Encounter Summary ---
Author Organization [facility] Address [address] [facility] [address] [place] [address] Care Team Providers Care Stenotype Machine Operator Name Role Phone Yolanda Dorsey PAINTER ROUGH Unavailable Jayesh Lara DO Primary Care Provider [phone] Reason for Visit * Reason Comments Lab (SCAN) Encounter Details Date Type Department Care Team (Latest Contact Info) Description 11/19/2020 Scan HEALTH INFO SRVCS Scanned, Documents Lab (SCAN) Social History Tobacco Use Types Packs/Day Years [...] Assessment Author Status No 07/29/2020 8:15 PM JOB MOLDER Activ e * RETIRED Are you blind or do you have serious difficulty seeing, even when wearing glasses? Answer Date of Assessment Author Status No 07/29/2020 8:15 PM JOB MOLDER Activ e * Do you have serious difficulty walking or climbing stairs? Answer Date of Assessment Author Status Yes 07/29/2020 8:15 PM JOB MOLDER Nirali Lyons R N Active * Do [...] Procedure Name Priority Date/Time Associated Diagnosis Comments OUTSIDE LAB (SCAN ORDER) 11/19/2020 documented in this encounter Results * OUTSIDE LAB (SCAN) (11/19/2020) 11/19/2020 Narrative 11/19/2020 Ordered by an unspecified provider. us Documents Scanned SCANNING Final Result documented in this encounter Visit Diagnoses Not on filedocumented in this encounter Care Teams Stenotype Machine Operator Relationship Specialty Start Date End Date Jayesh Lara DO PCP - General INTERNAL MEDICINE 02/24/20 12/12/20 Yolanda Dorsey NP Nurse Practitioner Nurse Practitioner Family 02/24/20 01/23/21 documented as of this encounter
--- OUTSIDE RECORDS SUMMARY | 2024-09-21 01:14 | XMS_ITS | Encounter Summary ---
Author Organization [facility] Address [address] [facility] [address] [place] [address] Care Team Providers Care Instructor Adjunct Surgical Technician Name Role Phone Yolanda Dorsey FORMULATION CHEMIST Unavailable Jayesh Lara DO Primary Care Provider [phone] Reason for Visit * Reason Comments [facility] routine Encounter Details Date Type Department Care Team (Latest Contact Info) Description 09/13/2020 8:40 AM ZOOGLER Telemedicine [facility] [address] [address] Yolanda Dorsey, SHANKAR [address] [address] [facility] (routine) Social History Tobacco Use Types Packs/Day Years Used Date Smoking Tobacco: Unknown Comments Unknown Sex and Gender Information Value Date Recorded Sex Assigned at Not on file Legal Sex Female 10:25 PM CDT Gender Identity Not on file Sexual Orientation Not on file documented as of this encounter Last Filed Vital Signs Vital Sign Reading Time Taken Comments Blood Pressure 120/84 09/13/2020 7:56 AM ZOOGLER Pulse 68 09/13/2020 7:56 AM ZOOGLER Temperature 36.7 ??C (98 ??F) 09/13/2020 7:56 AM ZOOGLER Respiratory Rate 16 09/13/2020 7:56 AM ZOOGLER Oxygen Saturation - - Inhaled Oxygen Concentration - - Weight - - Height - - Body Mass Index - - documented in this encounter Functional Status * RETIRED Are you deaf or do you have serious difficulty hearing Answer Date of Assessment Author Status No 07/29/2020 8:15 PM ZOOGLER Activ e * RETIRED Are you blind or do you have serious difficulty seeing, even when wearing glasses? Answer Date of Assessment Author Status No 07/29/2020 8:15 PM ZOOGLER Activ e * Do you have serious difficulty walking or climbing stairs? Answer Date of Assessment Author Status Yes 07/29/2020 8:15 PM ZOOGLER Nirali Lyons R N Active * Do you have difficulty dressing or bathing? Answer Date of Assessment Author Status Yes 07/29/2020 8:15 PM ZOOGLER Nirali Lyons R N Active * Because of a physical, mental, or emotional condition, do you have difficulty doing errands alone such as visiting a doctor's office or shopping? Answer Date of Assessment Author Status Yes 07/29/2020 8:15 PM ZOOGLER Nirali Lyons R N Active documented as of this encounter Mental Status * Because of a physical, mental, or emotional condition, do you have serious difficulty concentrating, remembering, or making decisions? Answer Entry Date Author Status Yes 07/29/2020 8:15 PM ZOOGLER Nirali Lyons R N Active documented in this encounter Progress Notes * Yolanda Pryor NP - 09/13/2020 8:40 AM CST Images from the original note were not included. Reason for Visit: [facility] (routine) History of Present Illness: I introduced and identified myself, received verbal consent?? from the patient to proceed with thisvideo visit and made the patient aware that the same confidentiality and library information technician practices apply. The patient joined the video visit from [facility]. [place] The following clinical staff helped with this visit Nurse: eMlanie. Total Time Spent in Minutes: 21 Emelina Santoyo is an 80-year-old female who [...] appetite and is sleeping well. She denies her left toe bothering her despite staff reporting the toe is more red, swollen and has some purulent drainage since off antibiotics. She restarted her second round and it is now showing some improvement. She also has a referral to podiatry. Alzheimer's: No behaviors. Stable. On namenda and [...] Atorvastatin increased and repeat ordered in 3 months. ROS: Review of Systems Constitutional: Positive for malaise/fatigue. Negative for chills and fever. Respiratory: Negative for cough and shortness of breath. Cardiovascular: Negative for chest pain. Gastrointestinal: Negative for abdominal pain, diarrhea and vomiting. Musculoskeletal: Negative for joint pain. Skin: Negative for itching and rash. Infected toenail Neurological: Positive for weakness. Negative for dizziness [...] by mouth daily., Disp: , Rfl: ??? aspirin 81 MG chewable tablet, Chew 1 tablet by mouth daily., Disp: , Rfl: ??? atorvastatin 40 MG tablet, Take 80 mg by mouth daily. , Disp: , Rfl: ??? cranberry 450 MG Tab tablet, Take 450 mg by mouth daily., Disp: , Rfl: ??? cyanocobalamin 1000 MCG/ML injection, Inject 1 mL into the muscle monthly. Give on of , Disp: , Rfl: ??? donepezil 10 MG Tab, Take 10 mg by mouth 2 (two) times daily., Disp: , Rfl: ??? doxycycline monohydrate 100 MG capsule, Take 100 mg by mouth 2 (two) times daily. x7 days, Disp: , Rfl: ??? fluconazole 150 MG [...] 15 tablet, Rfl: 0 ??? insulin aspart 100 UNIT/ML injection (PEN), Inject into the skin 2 (two) times a day. Per SSI at noon and HS <150 = 0 units 150 - 200 = 2 units 201 - 250 = 4 units 251 - 300 = 6 units 301 - 350 = 8 units 351 - 400 = 10 units >400 = 12 units and notify provider, Disp: , Rfl: ??? insulin glargine 100 UNIT/ML injection (VIAL), Inject 10 Units into the skin nightly [...] times daily. , Disp: , Rfl: ??? memantine ER (NAMENDA [...] daily as needed., Disp: , Rfl: ??? polyvinyl alcohol 1.4 % ophthalmic solution, Place 1 drop into both eyes 3 (three) times daily., Disp: , Rfl: ??? predniSONE 5 mg tablet, Take 5 mg by mouth as needed. , Disp: , Rfl: ??? Probiotic Product (PROBIOTIC ADVANCED) Cap, Take 1 capsule by mouth 2 (two) times daily. x10 days, Disp: , Rfl: ??? saccharomyces boulardii (FLORASTOR) 250 MG capsule, Take 1 capsule by mouth 2 (two) times daily., Disp: , Rfl: ??? vitamin D2, ergocalciferol, 36635 UNITS capsule, Take 2 capsules by mouth once a week. Thursday, Disp: , Rfl: ??? PREGABALIN 150 MG capsule, TAKE 1 CAPSULE BY MOUTH TWICE A DAY, Disp: 60 capsule, Rfl: 4 Allergies Allergen Reactions ??? Metronidazole Unknown Past Medical History: Diagnosis Date ??? Cholecystitis, unspecified 02/09/2019 ??? Chronic indwelling Zhang catheter Filed Vitals: 09/13/20 0756 BP: 120/84 Pulse: 68 Resp: 16 Temp: 98 ??F (36.7 ??C) Physical Exam Constitutional: She appears well-developed and well-nourished. Pulmonary/Chest: Effort normal. No respiratory distress. Neurological: She is alert. She is disoriented. Coordination and gait (wheelchair) abnormal. Skin: There is erythema. Reddened, left great toe with purulent drainage. Psychiatric: She has a normal mood and affect. Her speech is delayed. She is slowed and withdrawn. Cognition and memory are impaired. She expresses inappropriate judgment. She exhibits abnormal recent memory. She is inattentive. Diagnoses/Impression: 1. Late onset Alzheimer's disease without behavioral disturbance ([facility]) 2. Type 2 diabetes mellitus with diabetic polyneuropathy, without long-term current use of insulin ([facility]) 3. Essential hypertension 4. Paronychia of great toe of left foot - Epsom salt soaks TID until healed. - Awaiting podiatry appointment. Recommendations and Plan: Changes made as described above. Staff to continue to monitor and report any changes. Follow up in one month unless necessary sooner. Yolanda Pryor NP LER documented in this encounter Plan of Treatment Not on file documented as of this encounter Goals Goal Patient Goal Type Associated Problems Recent Progress Patient-Stated? Author Establish Plan for Regular Lab Work Marlys Jean RN documented as of this encounter Visit Diagnoses Diagnosis Late onset Alzheimer's disease without behavioral disturbance ([facility])- Primary Type 2 diabetes mellitus with diabetic polyneuropathy, without long-term current use of insulin ([facility]) Essential hypertension Unspecified essential hypertension Paronychia of great toe of left foot Onychia and paronychia of toe documented in this encounter Care Teams Instructor Adjunct Surgical Technician Relationship Specialty Start Date End Date Jayesh Lara DO PCP - General INTERNAL MEDICINE 02/24/20 12/12/20 Yolanda Dorsey NP Nurse Practitioner Nurse Practitioner Family 02/24/20 01/23/21 documented as of this encounter
--- OUTSIDE RECORDS SUMMARY | 2024-09-21 01:14 | XMS_ITS | Encounter Summary ---
Author Organization [facility] Address [facility] [facility] [place] [address] [place] [address] Care Team Providers Care Assistant Producer Name Role Phone Yolanda Dorsey MOWING MACHINE OPERATOR Unavailable Chris Higgins MD Primary Care Provider [phone] Giovanna Buck MOWING MACHINE OPERATOR Unavailable [phone] Jayesh Lara DO Unavailable Encounter Details Date Type Department Care Team (Late st Contact Info) Description 12/13/2020 Chart Prep [facility] [address] [facility] [address] [place] [id number] Yolanda Dorsey, MOWING MACHINE OPERATOR [address] [address] Social History Tobacco Use Types [...] Assessment Author Status No 07/29/2020 8:15 PM KNOTTER Activ e * RETIRED Are you blind or do you have serious difficulty seeing, even when wearing glasses? Answer Date of Assessment Author Status No 07/29/2020 8:15 PM KNOTTER Activ e * Do you have serious difficulty walking or climbing stairs? Answer Date of Assessment Author Status Yes 07/29/2020 8:15 PM KNOTTER Nirali Lyons R N Active * Do you have difficulty dressing or bathing? Answer Date of Assessment Author Status Yes 07/29/2020 8:15 PM KNOTTER Nirali Lyons R N Active * Because of a physical, mental, or emotional condition, do you have difficulty doing errands alone such as visiting a doctor's office or shopping? Answer Date of Assessment Author Status Yes 07/29/2020 8:15 PM KNOTTER Nirali Lyons R N Active documented as of this encounter Mental Status * Because of a physical, mental, or emotional condition, do you have serious difficulty concentrating, remembering, or making decisions? Answer Entry Date Author Status Yes 07/29/2020 8:15 PM KNOTTER Nirali Lyons R N Active documented in this encounter Plan of Treatment Not on file documented as of this encounter Goals Goal Patient Goal Type Associated Problems Recent Progress Patient-Stated? Author Establish Plan for Regular Lab Work General No Marlys Sam RN documented as of this encounter Visit Diagnoses Not on filedocumented in this encounter Care Teams Assistant Producer Relationship Specialty Start Date End Date Chris Higgins MD PCP - General HOSPITALIST 12/13/20 01/23/21 Yolanda Dorsey NP Nurse Practitioner Nurse Practitioner Family 02/24/20 01/23/21 Giovanna Buck NP Nurse Practitioner NURSE PRACTITIONER 12/13/20 01/23/21 Jayesh Lara DO Consulting Physician INTERNAL MEDICINE 12/13/20 1 documented as of this encounter
--- OUTSIDE RECORDS SUMMARY | 2024-09-21 01:14 | XMS_ITS | Encounter Summary ---
Author Organization [facility] Address [address] [facility] [place] [address] [place] [address] Care Team Providers Care Post Tensioning Ironworker Name Role Phone Yolanda Dorsey SKETCHER Unavailable Jayesh Lara DO Primary Care Provider Reason for Visit * Reason Comments Lab (SCAN) Encounter Details Date Type Department Care Team (Latest Contact Info) Description 08/24/2020 Scan HEALTH INFO [facility] Scanned, Documents Lab [...] COVID-19? Unable to assess 07/29/2020 8:12 PM LINK TRAINER MAINTENANCE MAN documented as of this encounter Functional Status * RETIRED Are you deaf or do you have serious difficulty hearing Answer Date of Assessment Author Status No 07/29/2020 8:15 PM LINK TRAINER MAINTENANCE MAN Activ e * RETIRED Are you blind or do you have serious difficulty seeing, even when wearing glasses? Answer Date of Assessment Author Status No 07/29/2020 8:15 PM LINK TRAINER MAINTENANCE MAN Activ e * Do you have serious [...] Associated Diagnosis Comments OUTSIDE LAB (SCAN ORDER) 08/24/2020 documented in this encounter Results * OUTSIDE LAB (SCAN) (08/24/2020) 08/24/2020 Narrative 08/24/2020 Ordered by an unspecified provider. us Documents Scanned SCANNING Final Result documented in this encounter Visit Diagnoses Not on filedocumented in this encounter Care Teams Post Tensioning Ironworker Relationship Specialty Start Date End Date Jayesh Lara DO PCP - General INTERNAL MEDICINE 02/24/20 12/12/20 Yolanda Dorsey NP Nurse Practitioner Nurse Practitioner Family 02/24/20 01/23/21 documented as of this encounter
--- OUTSIDE RECORDS SUMMARY | 2024-09-21 01:14 | XMS_ITS | Encounter Summary ---
Author Organization [facility] Address [address] [facility] [place] [address] [place] [address] Care Team Providers Care Microsoft Dynamics Developer Name Role Phone Yolanda Dorsey CUSTOMER EXPERT Unavailable Jayesh Lara DO Primary Care Provider [phone] Encounter Details Date Type Department Care Team (Late st Contact Info) Description 11/19/2020 Orders Only [facility] [address] [place], [place] [id number] Jayesh Lara DO [address] [address] Social History Tobacco Use Types [...] Assessment Author Status No 07/29/2020 8:15 PM SENIOR ELECTRONICS ENGINEER Activ e * RETIRED Are you blind or do you have serious difficulty seeing, even when wearing glasses? Answer Date of Assessment Author Status No 07/29/2020 8:15 PM SENIOR ELECTRONICS ENGINEER Activ e * Do you have serious difficulty walking or climbing stairs? Answer Date of Assessment Author Status Yes 07/29/2020 8:15 PM SENIOR ELECTRONICS ENGINEER Nirali Lyons R N Active * Do you have difficulty dressing or bathing? Answer Date of Assessment Author Status Yes 07/29/2020 8:15 PM SENIOR ELECTRONICS ENGINEER Nirali Lyons R N Active * Because of a physical, mental, or emotional condition, do you have difficulty doing errands alone such as visiting a doctor's office or shopping? Answer Date of Assessment Author Status Yes 07/29/2020 8:15 PM SENIOR ELECTRONICS ENGINEER Nirali Lyons R N Active documented as of this encounter Mental Status * Because of a physical, mental, or emotional condition, do you have serious difficulty concentrating, remembering, or making decisions? Answer Entry Date Author Status Yes 07/29/2020 8:15 PM SENIOR ELECTRONICS ENGINEER Nirali Lyons R N Active documented in this encounter Plan of Treatment Not on file documented as of this encounter Goals Goal Patient Goal Type Associated Problems Recent Progress Patient-Stated? Author Establish Plan for Regular Lab Work General No Marlys Sam RN documented as of this encounter Procedures Procedure Name Priority Date/Time Associated Diagnosis Comments LIPID PANEL Routine 11/19/2020 12:02 PM SENIOR ELECTRONICS ENGINEER Hyperlipemia documented in this encounter Results * (ABNORMAL) LIPID PANEL (11/19/2020 12:02 PM [facility]) CHOLESTEROL 34 <200.0 MG/DL 11/19/2020 1:24 PM [facility] TRIGLYCERIDES 377(H) <150 MG/DL 11/19/2020 1:24 PM [facility] HDL 34(L) >40.0 MG/DL 11/19/2020 1:24 PM [facility] LDL (CALCULATED) NOT CALCULATED <100 MG/DL 11/19/2020 1:24 PM [facility] NON HDL CHOLESTEROL 0 <130 MG/DL 11/19/2020 1:24 PM [facility] CHOL/HDL RATIO 1.0 0.0 - 4.5 11/19/2020 1:24 PM [facility] VLDL CALCULATION 75(H) 5 - 55 MG/DL 11/19/2020 1:24 PM [facility] LIPID INTERPRETATION 11/19/2020 1:24 PM [facility] Comment: NIH CONCENSUS REPORT RECOMMENDATIONS: ?ADULT [...] ? >=160 ?>=130 11/19/2020 12:0 2 PM SENIOR ELECTRONICS ENGINEER us Jayesh Lara DO LABORATORY Final Result [facility] [address] [place] [address], [place] [phone] documented in this encounter Visit Diagnoses Diagnosis Hyperlipemia- Primary Other and unspecified hyperlipidemia documented in this encounter Care Teams Microsoft Dynamics Developer Relationship Specialty Start Date End Date Jayesh Lara DO PCP - General INTERNAL MEDICINE 02/24/20 12/12/20 Yolanda Dorsey NP Nurse Practitioner Nurse Practitioner Family 02/24/20 01/23/21 documented as of this encounter
--- OUTSIDE RECORDS SUMMARY | 2024-09-21 01:14 | XMS_ITS | Encounter Summary ---
Author Organization [facility] Address [facility] [facility] [place] [address] [place] [address] Care Team Providers Care Relief Mate Name Role Phone Yolanda Dorsey COUNTY RECORDS MANAGEMENT OFFICER Unavailable Chris Higgins MD Primary Care Provider [phone] Giovanna Buck COUNTY RECORDS MANAGEMENT OFFICER Unavailable [phone] Jayesh Lara DO Unavailable Reason for Visit * Reason Comments Shelter acute red, swollen, draining finger Encounter Details Date Type Department Care Team (Late st Contact Info) Description 12/13/2020 10:00 AM CDT Shelter [address] [place] [address] Yolanda Dorsey NP [address] [address] Shelter (acute red, swollen, draining finger) Social History Tobacco Use Types Packs/Day Years Used Date Smoking Tobacco: Unknown Comments Unknown Sex and Gender Information Value Date Recorded Sex Assigned at Not on file Legal Sex Female 10:25 PM CDT Gender Identity Not on file Sexual Orientation Not on file documented as of this encounter Last Filed Vital Signs Vital Sign Reading Time Taken Comments Blood Pressure 124/62 12/13/2020 10:34 AM CDT Pulse 84 12/13/2020 10:34 AM CDT Temperature 37 ??C (98.6 ??F) 12/13/2020 10:34 AM CDT Respiratory Rate 20 12/13/2020 10:34 AM CDT Oxygen Saturation 93% 12/13/2020 10:34 AM CDT Inhaled Oxygen Concentration - - Weight 73.8 kg (162 lb 9.6 oz) 12/13/2020 10:34 AM CDT Height 167.6 cm (5' 6 ) 12/13/2020 10:34 AM CDT Body Mass Index 26.24 12/13/2020 10:34 AM CDT documented in this encounter Functional Status * RETIRED Are you deaf or do you have serious difficulty hearing Answer Date of Assessment Author Status No 07/29/2020 8:15 PM TOMATO PULPER OPERATOR Activ e * RETIRED Are you blind or do you have serious difficulty seeing, even when wearing glasses? Answer Date of Assessment Author Status No 07/29/2020 8:15 PM TOMATO PULPER OPERATOR Activ e * Do you have serious difficulty walking or climbing stairs? Answer Date of Assessment Author Status Yes 07/29/2020 8:15 PM TOMATO PULPER OPERATOR Nirali Lyons R N Active * Do you have difficulty dressing or bathing? Answer Date of Assessment Author Status Yes 07/29/2020 8:15 PM TOMATO PULPER OPERATOR Nirali Lyons R N Active * Because of a physical, mental, or emotional condition, do you have difficulty doing errands alone such as visiting a doctor's office or shopping? Answer Date of Assessment Author Status Yes 07/29/2020 8:15 PM TOMATO PULPER OPERATOR Nirali Lyons R N Active documented as of this encounter Mental Status * Because of a physical, mental, or emotional condition, do you have serious difficulty concentrating, remembering, or making decisions? Answer Entry Date Author Status Yes 07/29/2020 8:15 PM Nirali Jacome R N Active documented in this encounter Progress Notes * Yolanda Pryor NP - 12/13/2020 10:00 AM CDT Images from the original note were not included. Reason for Visit: Shelter (acute red, swollen, draining finger) History of Present Illness: Emelina Santoyo is an 80-year-old female who was seen today for an acute visit. Nurse reports her leftpinky finger continues with redness. Patient denies any pain or that it has affected her ADLs. There is no warmth or drainage. No fluid collection or tenderness. For the last two weeks it has been soaked in epsom salt baths and DIONTE and a band aid applied three times a day. ROS: Review of Systems Constitutional: Negative for chills, fever and malaise/fatigue. Gastrointestinal: Negative for abdominal pain and vomiting. Musculoskeletal: Negative for joint pain. [...] Rfl: ??? Cholecalciferol (VITAMIN D3) 250 MCG ([address]503 UT) Tab, Take 1 tablet by mouth [...] ??? Chronic indwelling Zhang catheter Filed Vitals: 12/13/20 1034 BP: 124/62 Pulse: 84 Resp: 20 Temp: 98.6 ??F (37 ??C) SpO2: 93% Weight: 73.8 kg (162 lb 9.6 oz) Height: 5' 6 (1.676 m) Physical Exam Constitutional: She appears well-developed and well-nourished. Cardiovascular: Normal rate, regular rhythm and normal heart sounds. Pulmonary/Chest: Effort normal and breath sounds normal. No respiratory distress. Neurological: She is alert. She is disoriented. Coordination and gait (wheelchair) abnormal. Skin: Skin is warm and dry. There is erythema. Left 5th finger redness, no warmth. No drainage, tenderness. No obvious abscess needing drainage. Psychiatric: She has a normal mood and affect. Her speech is delayed. She is slowed and withdrawn. Cognition and memory are impaired. She expresses inappropriate judgment. She exhibits abnormal recent memory. She is inattentive. Diagnoses/Impression: 1. 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 - Leave area open and monitor for drainage, warmth. 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
--- OUTSIDE RECORDS SUMMARY | 2024-09-21 01:14 | XMS_ITS | Encounter Summary ---
Author Organization [facility] Address [address] [facility] [address] [place] [address] Care Team Providers Care Middleware Developer Name Role Phone Yolanda Dorsey CURRICULUM ASSISTANT PRINCIPAL Unavailable Jayesh Lara DO Primary Care Provider Encounter Details Date Type Department Care Team (Late st Contact Info) Description 10/11/2020 Chart Prep [facility] [address] [facility] [address] [place] [address] Jayesh Lara DO [address] [id number] Social History Tobacco Use Types Packs/Day Years [...] Assessment Author Status No 07/29/2020 8:15 PM COMMERCIAL CREDIT SPECIALIST Activ e * RETIRED Are you blind or do you have serious difficulty seeing, even when wearing glasses? Answer Date of Assessment Author Status No 07/29/2020 8:15 PM COMMERCIAL CREDIT SPECIALIST Activ e * Do you have [...] on filedocumented in this encounter Care Teams Middleware Developer Relationship Specialty Start Date End Date Jayesh Lara DO PCP - General INTERNAL MEDICINE 02/24/20 12/12/20 Yolanda Dorsey NP Nurse Practitioner Nurse Practitioner Family 02/24/20 01/23/21 documented as of this encounter
--- OUTSIDE RECORDS SUMMARY | 2024-09-21 01:14 | XMS_ITS | Encounter Summary ---
Author Organization [facility] Address [facility] [place] [address] [place] [address] Care Team Providers Care Corner Trimmer Operator Name Role Phone Yolanda Dorsey CIVIL ENGINEERING DESIGNER Unavailable Jayesh Lara DO Primary Care Provider [phone] Reason for Visit * Reason Onset Date Comments Medication 12/10/2020 Encounter Details Date Type Department Care Team (Late st Contact Info) Description 12/12/2020 WIDE PIECE GOODS INSPECTOR ONLY [facility] [address] [address] Yolanda Dorsey NP [address] [address] Medication Social History Tobacco Use [...] Assessment Author Status No 07/29/2020 8:15 PM GARBAGE COLLECTOR DRIVER Activ e * RETIRED Are you blind or do you have serious difficulty seeing, even when wearing glasses? Answer Date of Assessment Author Status No 07/29/2020 8:15 PM GARBAGE COLLECTOR DRIVER Activ e * Do you have serious difficulty walking or climbing stairs? Answer Date of Assessment Author Status Yes 07/29/2020 8:15 PM GARBAGE COLLECTOR DRIVER Nirali Lyons R N Active * Do you have difficulty dressing or bathing? Answer Date of Assessment Author Status Yes 07/29/2020 8:15 PM GARBAGE COLLECTOR DRIVER Nirali Lyons R N Active * Because of a physical, mental, or emotional condition, do you have difficulty doing errands alone such as visiting a doctor's office or shopping? Answer Date of Assessment Author Status Yes 07/29/2020 8:15 PM GARBAGE COLLECTOR DRIVER Nirali Lyons R N Active documented as of this encounter Mental Status * Because of a physical, mental, or emotional condition, do you have serious difficulty concentrating, remembering, or making decisions? Answer Entry Date Author Status Yes 07/29/2020 8:15 PM GARBAGE COLLECTOR DRIVER Nirali Lyons R N Active documented in this encounter Progress Notes * Savanah Mehta LPN - 12/12/2020 1:57 PM CDT Received fax from [facility] ([place]): Clarifying med orders received on 12/07/20, pharmacy asked us to clarify if Donepezil IR 10mg PO QHSorder should be BID since her previous Donepezil order was for BID at 8am and 8pm. Pharmacy also states that they do not have fish oil in liquid form are we okay to puncture or cut open a 1000mg fishoil capsule for her BID instead? Finally she has Vitamin D 5000 u take 22 capsules daily. May we have an order to switch to tabs? Yolanda Pryor APN updated with orders: ok for Donepezil 10mg PO BID. D/C fish oil since no liquid form. Ok to change Vitamin D to 5000 unit tablets to crush daily. documented in this encounter Plan of Treatment Not on file documented as of this encounter Goals Goal Patient Goal Type Associated Problems Recent Progress Patient-Stated? Author Establish Plan for Regular Lab Work General No Marlys Sam RN documented as of this encounter Visit Diagnoses Not on filedocumented in this encounter Care Teams Corner Trimmer Operator Relationship Specialty Start Date End Date Jayesh Lara DO PCP - General INTERNAL MEDICINE 02/24/20 12/12/20 Yolanda Dorsey NP Nurse Practitioner Nurse Practitioner Family 02/24/20 01/23/21 documented as of this encounter
--- OUTSIDE RECORDS SUMMARY | 2024-09-21 01:15 | XMS_ITS | Encounter Summary ---
Author Organization [facility] Address [address] [place] [address] [place] [address] Care Team Providers Care Charge Aide Name Role Phone Yolanda Dorsey BAG SHOP WORKER Unavailable Jayesh Lara DO Primary Care Provider Reason for Visit * Reason Comments Lab (SCAN) Encounter Details Date Type Department Care Team (Latest Contact Info) Description 08/08/2020 Scan HEALTH INFO SRVCS Scanned, Documents Lab [...] COVID-19? Unable to assess 07/29/2020 8:12 PM SALESPERSON CORSETS documented as of this encounter Functional Status * RETIRED Are you deaf or do you have serious difficulty hearing Answer Date of Assessment Author Status No 07/29/2020 8:15 PM SALESPERSON CORSETS Activ e * RETIRED Are you blind or do you have serious difficulty seeing, even when wearing glasses? Answer Date of Assessment Author Status No 07/29/2020 8:15 PM SALESPERSON CORSETS Activ e * Do you have serious [...] Associated Diagnosis Comments OUTSIDE LAB (SCAN ORDER) 08/08/2020 OUTSIDE LAB (SCAN ORDER) 08/08/2020 OUTSIDE LAB (SCAN ORDER) 08/08/2020 documented in this encounter Results * OUTSIDE LAB (SCAN) (08/08/2020) 08/08/2020 Narrative 08/08/2020 Ordered by an unspecified provider. us Documents Scanned SCANNING Final Result * OUTSIDE LAB (SCAN) (08/08/2020) 08/08/2020 Narrative 08/08/2020 Ordered by an unspecified provider. us Documents Scanned SCANNING Final Result * OUTSIDE LAB (SCAN) (08/08/2020) 08/08/2020 Narrative 08/08/2020 Ordered by an unspecified provider. us Documents Scanned SCANNING Final Result documented in this encounter Visit Diagnoses Not on filedocumented in this encounter Care Teams Charge Aide Relationship Specialty Start Date End Date Jayesh Lara DO PCP - General INTERNAL MEDICINE 02/24/20 12/12/20 Yolanda Dorsey NP Nurse Practitioner Nurse Practitioner Family 02/24/20 01/23/21 documented as of this encounter
--- OUTSIDE RECORDS SUMMARY | 2024-09-21 01:15 | XMS_ITS | Encounter Summary ---
Author Organization [facility] Address [facility] [place] [address] [place] [address] Care Team Providers Care Ccna Name Role Phone Yolanda Dorsey WOOD REPATCHER Unavailable Jayesh Lara DO Primary Care Provider [phone] Reason for Visit * Reason Comments [facility] skilled follow-up Encounter Details Date Type Department Care Team (Late st Contact Info) Description 08/16/2020 8:20 AM QUALITY ASSURANCE MONITOR CHASSIS Telemedicine [facility] [address] [address] Yolanda Dorsey NP [address] [id number] [facility] (skilled follow-up) Social History Tobacco Use Types Packs/Day Years [...] COVID-19? Unable to assess 07/29/2020 8:12 PM QUALITY ASSURANCE MONITOR CHASSIS documented as of this encounter Last Filed Vital Signs Vital Sign Reading Time Taken Comments Blood Pressure 128/64 08/16/2020 8:00 AM QUALITY ASSURANCE MONITOR CHASSIS Pulse 70 08/16/2020 8:00 AM QUALITY ASSURANCE MONITOR CHASSIS Temperature 36.2 ??C (97.2 ??F) 08/16/2020 8:00 AM CS T Respiratory Rate 18 08/16/2020 8:00 AM QUALITY ASSURANCE MONITOR CHASSIS Oxygen Saturation - - Inhaled Oxygen Concentration - - Weight - - Height - - Body Mass Index - - documented in this encounter Functional Status * RETIRED Are you deaf or do you have serious difficulty hearing Answer Date of Assessment Author Status No 07/29/2020 8:15 PM QUALITY ASSURANCE MONITOR CHASSIS Activ e * RETIRED Are you blind or do you have serious difficulty seeing, even when wearing glasses? Answer Date of Assessment Author Status No 07/29/2020 8:15 PM QUALITY ASSURANCE MONITOR CHASSIS Activ e * Do you have serious difficulty walking or climbing stairs? Answer Date of Assessment Author Status Yes 07/29/2020 8:15 PM QUALITY ASSURANCE MONITOR CHASSIS Nirali Lyons R N Active * Do you have difficulty dressing or bathing? Answer Date of Assessment Author Status Yes 07/29/2020 8:15 PM QUALITY ASSURANCE MONITOR CHASSIS Nirali Lyons R N Active * Because of a physical, mental, or emotional condition, do you have difficulty doing errands alone such as visiting a doctor's office or shopping? Answer Date of Assessment Author Status Yes 07/29/2020 8:15 PM QUALITY ASSURANCE MONITOR CHASSIS Nirali Lyons R N Active documented as of this encounter Mental Status * Because of a physical, mental, or emotional condition, do you have serious difficulty concentrating, remembering, or making decisions? Answer Entry Date Author Status Yes 07/29/2020 8:15 PM QUALITY ASSURANCE MONITOR CHASSIS Nirali Lyons R N Active documented in this encounter Progress Notes * Yolanda Pryor NP - 08/16/2020 8:20 AM CST Images from the original note were not included. Reason for Visit: [facility] (skilled follow-up) History of Present Illness: I introduced and identified myself, received verbal consent?? from the patient to proceed with thisvideo visit and made the patient aware that the same confidentiality and patient information coordinator practices apply. The patient joined the video visit from [facility]. I completed the virtual visit [facility]. The following clinical staff helped with this visit Nurse: Melanie. Total Time Spent in Minutes: 24 Emelina Santoyo is an 80-year-old female who was seen today for a custodial home visit. She was recently discharged after hospitalization for AMS likely related to dehydration, UTI and hypernatremia. Patient is alert and oriented to self per her baseline now. She is able to make needs known. Sheis able to respond to questions and follow commands. Staff reports she has still been fatigued since her return. She is working with PT/OT for strengthening and conditioning. Staff reports her left great toe has become red and is draining pus. They report the calibration checker has treated her for ingrown toenail and ever since then her toe does not seem to fully heal. She has also had some decreased appetite but is maintaining her weight. AMS: Back to A&O x 1 which is patient baseline. Dehydration: Resolved with IVF in hospital. Hypernatremia: Last BMP 08/14/20 reveals sodium level of 139. Monitor sodium level. UTI: Finished PO antibiotic regimen on 07/31/20. Resolved. Encourage PO fluids. Alzheimer's: No behaviors. Stable. On namenda and donepezil. ROS: Review of Systems Constitutional: Positive for [...] (two) times daily., Disp: , Rfl: ??? glimepiride 4 MG tablet, Take 4 mg by mouth every morning before breakfast., Disp: , Rfl: ??? guaiFENesin 100 MG/5ML solution, Take 100 mg by mouth every 4 (four) hours as needed for Cough., Disp: , Rfl: ??? HYDROcodone-acetaminophen 5-325 MG [...] 10 Units into the skin nightly at bedtime., Disp: , Rfl: ??? lisinopril 10 MG tablet, Take 1 tablet (10 mg total) by mouth daily., Disp: 30 tablet, Rfl: 0 ??? loperamide 2 MG capsule, Take 2 mg by mouth as needed for Diarrhea. 4 mg initially then 2 mg after each loose stool Max 16mg/24hrs, Disp: , Rfl: ??? loratadine 10 MG tablet, Take 1 tablet by mouth daily., Disp: , Rfl: ??? LYRICA 150 MG capsule, Take 1 capsule (150 mg total) by mouth 2 (two) times a day., Disp: 60 capsule, Rfl: 0 ??? magnesium gluconate (MAG-G) tablet, Take 27 mg by mouth 2 (two) times daily. , Disp: , Rfl: ??? Magnesium Hydroxide (MILK OF MAGNESIA OR), Take 30 mLs by mouth daily as needed. , Disp: , Rfl: ??? memantine ER (NAMENDA XR) 28 MG 24 hr capsule, Take 1 capsule by mouth daily., Disp: , Rfl: ??? metoprolol tartrate 25 MG tablet, Take 25 mg by mouth 2 (two) times daily., Disp: , Rfl: ??? miconazole (ANTIFUNGAL) 2 % cream, Apply topically daily as needed. For perineal discharge withincontinent episode, Disp: , Rfl: ??? Multiple Vitamin (THERA-MILL) Tab, Take 1 tablet by mouth daily., Disp: , Rfl: ??? ezhodmmm-mcmmmqtatn-ncavrisbg 5-400-5000 Ointment, Apply topically every other day., Disp: , Rfl: ??? nystatin powder, Apply topically as needed (irritation under bilateral breasts and abd folds).,Disp: , Rfl: ??? polyethylene glycol powder, Take 17 g by mouth daily as needed. Dissolve powder in 240 mL water, Disp: , Rfl: ??? polyvinyl alcohol 1.4 % ophthalmic solution, Place 1 drop into both eyes 3 (three) times daily., Disp: , Rfl: ??? potassium chloride CR 10 MEQ tablet, Take 2 tablets by mouth daily., Disp: , Rfl: ??? predniSONE 5 mg tablet, Take 5 mg by mouth daily., Disp: , Rfl: ??? saccharomyces boulardii (FLORASTOR) 250 MG capsule, Take 1 capsule by mouth 2 (two) times daily., Disp: , Rfl: ??? vitamin D2, ergocalciferol, [address]26 UNITS capsule, Take 2 capsules by mouth once a week. Thursday, Disp: , Rfl: Allergies Allergen Reactions ??? Metronidazole Unknown Past Medical History: Diagnosis Date ??? Cholecystitis, unspecified 02/09/2019 ??? Chronic indwelling Zhang catheter Filed Vitals: 08/16/20 0800 BP: 128/64 Pulse: 70 Resp: 18 Temp: 97.2 ??F (36.2 ??C) Physical Exam Constitutional: She appears well-developed [...] recent memory. She is inattentive. Diagnoses/Impression: 1. Hypernatremia 2. Paronychia of great toe of left foot - Bactroban to toe BID and PRN. - Change prednisone to PRN. 3. Hyperkalemia - Supplement on hold, repeat potassium level to be drawn tomorrow. 4. Late onset Alzheimer's disease without behavioral disturbance ([facility]) Recommendations and Plan: Changes made as described above. Staff to continue to monitor and report any changes. Follow up in one week unless necessary sooner. Yolanda Pryor NP ITY ASSURANCE MONITOR CHASSIS documented in this encounter Plan of Treatment Not on file documented as of this encounter Goals Goal Patient Goal Type Associated Problems Recent Progress Patient-Stated? Author Establish Plan for Regular Lab Work General No Marlys Sma RN documented as of this encounter Visit Diagnoses Diagnosis Hypernatremia- Primary Hyperosmolality and/or hypernatremia Paronychia of great toe of left foot Onychia and paronychia of toe Hyperkalemia Hyperpotassemia Late onset Alzheimer's disease without behavioral disturbance (CMS/HCC [facility]) documented in this encounter Care Teams Ccna Relationship Specialty Start Date End Date Jayesh Lara DO PCP - General INTERNAL MEDICINE 02/24/20 12/12/20 Yolanda Dorsey NP Nurse Practitioner Nurse Practitioner Family 02/24/20 01/23/21 documented as of this encounter
--- OUTSIDE RECORDS SUMMARY | 2024-09-21 01:15 | XMS_ITS | Encounter Summary ---
Author Organization [facility] Address [address] [facility] [address] [place] [address] Care Team Providers Care Director Of Strategic Communications Name Role Phone Yolanda Dorsey TREER Unavailable Jayesh Lara DO Primary Care Provider [phone] Encounter Details Date Type Department Care Team (Latest Contact Info) Description 08/17/2020 11:36 AM MANAGED CARE COORDINATOR - 08/17/2020 11:59 PM MANAGED CARE COORDINATOR Hospital Encounter [facility] [address] [place], [place] [id number] Yolanda Dorsey, SHANKAR [address] [address] Discharge Disposition: Home or Self [...] COVID-19? Unable to assess 07/29/2020 8:12 PM MANAGED CARE COORDINATOR documented as of this encounter Functional Status * RETIRED Are you deaf or do you have serious difficulty hearing Answer Date of Assessment Author Status No 07/29/2020 8:15 PM MANAGED CARE COORDINATOR Activ e * RETIRED Are you blind or do you have serious difficulty seeing, even when wearing glasses? Answer Date of Assessment Author Status No 07/29/2020 8:15 PM MANAGED CARE COORDINATOR Activ e * Do you have serious [...] Take 10 mg by mouth daily. 2 glimepiride 4 MG tablet Take 4 mg by mouth every morning before breakfast. 1 guaiFENesin 100 MG/5ML solution Take 100 mg by mouth every 4 (four) hours as needed for Cough. 0 HYDROcodone-acetam inophen 5-325 MG tabletIndications: Acute Pain [...] by mouth daily. 30 tablet 11/03/2018 2 loperamide 2 MG capsule Take 2 mg by mouth as needed for Diarrhea. 4 mg initially then 2 mg after each loose stool Max 16mg/24hrs 0 loratadine 10 MG tablet Take 1 tablet by mouth daily. 10/06/2017 2 LYRICA 150 MG capsuleIndications :Type 2 diabetes mellitus with diabetic polyneuropathy, without long-term current use of insulin ([facility]) Take 1 capsule (150 mg total) by mouth 2 (two) times a day. 60 capsule 08/07/2020 0 magnesium gluconate (MAGONATE) tablet Take 27 mg by mouth 2 (two) times daily. 2 Magnesium Hydroxide (MILK OF MAGNESIA OR) Take 30 mLs by mouth daily as needed. 0 memantine ER (NAMENDA XR) 28 MG 24 hr capsule Take 1 capsule by mouth daily. 06/21/2013 1 metoprolol tartrate 25 MG tablet Take 25 mg by mouth 2 (two) times daily. 2 miconazole (ANTIFUNGAL) 2 % cream Apply topically daily as needed. For perineal discharge with incontinent episode 0 Multiple Vitamin (THERA-MILL) Tab Take 1 tablet by mouth daily. 10/06/2017 2 neomycin-bacitraci n-polymyxin 5-400-5000 Ointment Apply topically every other day. 0 nystatin powder Apply topically as needed (irritation under bilateral breasts and abd folds). 0 polyethylene glycol powder Take 17 g by mouth daily as needed. Dissolve powder in 240 mL water 0 polyvinyl alcohol 1.4 % ophthalmic solution Place 1 drop into both eyes 3 (three) times daily. 1 predniSONE 5 mg tablet Take 5 mg by mouth as needed. 04/26/2019 2 saccharomyces boulardii (FLORASTOR) 250 MG capsule Take 1 capsule by mouth 2 (two) times daily. 2 vitamin D2, ergocalciferol, [address]270 UNITS capsule Take 2 capsules by mouth once a week. Thursday12/29/2017 0 documented as of this encounter Plan of Treatment Not on file documented as of this encounter Goals Goal Patient Goal Type Associated Problems Recent Progress Patient-Stated? Author Establish Plan for Regular Lab Work General No Marlys Sam RN documented as of this encounter Procedures Procedure Name Priority Date/Time Associated Diagnosis Comments POTASSIUM, SERUM Routine 08/17/2020 11:1 5 AM MANAGED CARE COORDINATOR Hyperkaluria documented in this encounter Results * POTASSIUM, SERUM (08/17/2020 11:15 AM MANAGED CARE COORDINATOR) POTASSIUM S/P/B 4.2 3.5 - 5.1 MMOL/L 08/17/2020 12:08 PM MANAGED CARE COORDINATOR [facility] 08/17/2020 11:1 5 AM MANAGED CARE COORDINATOR us Yolanda Dorsey TREER LABORATORY Final Result [facility] [address] [place] [address], [place] [phone] documented in this encounter Visit Diagnoses Diagnosis Hyperkaluria Hypopotassemia documented in this encounter Care Teams Director Of Strategic Communications Relationship Specialty Start Date End Date Jayesh Lara DO PCP - General INTERNAL MEDICINE 02/24/20 12/12/20 Yolanda Dorsey NP Nurse Practitioner Nurse Practitioner Family 02/24/20 01/23/21 documented as of this encounter
--- OUTSIDE RECORDS SUMMARY | 2024-09-21 01:15 | XMS_ITS | Encounter Summary ---
Author Organization [facility] Address [address] [facility] [place] [address] [place] [address] Care Team Providers Care Hat Lining Blocker Name Role Phone Yolanda Dorsey DESK TOP PUBLISHER Unavailable Jayesh Lara DO Primary Care Provider [phone] Encounter Details Date Type Department Care Team (Latest Contact Info) Description 08/24/2020 11:56 AM FINISHING ROOM SUPERVISOR - 08/24/2020 11:59 PM FINISHING ROOM SUPERVISOR Hospital Encounter [facility] [address] [place], [place] [id number] Yolanda Dorsey, SHANKAR [address] [address] Discharge Disposition: Home or Self [...] COVID-19? Unable to assess 07/29/2020 8:12 PM FINISHING ROOM SUPERVISOR documented as of this encounter Functional Status * RETIRED Are you deaf or do you have serious difficulty hearing Answer Date of Assessment Author Status No 07/29/2020 8:15 PM FINISHING ROOM SUPERVISOR Activ e * RETIRED Are you blind or do you have serious difficulty seeing, even when wearing glasses? Answer Date of Assessment Author Status No 07/29/2020 8:15 PM FINISHING ROOM SUPERVISOR Activ e * Do you have serious difficulty walking or climbing stairs? Answer Date of Assessment Author Status Yes 07/29/2020 8:15 PM Niarli Jacome R N Active * Do you have difficulty dressing or bathing? Answer Date of Assessment Author Status Yes 07/29/2020 8:15 PM Nirali Jacome R N Active * Because of a physical, mental, or emotional condition, do you have difficulty doing errands alone such as visiting a doctor's office or shopping? Answer Date of Assessment Author Status Yes 07/29/2020 8:15 PM Nirali Jacome RN Active documented as of this encounter [...] polyneuropathy, without long-term current use of insulin ([facility]) Take 1 capsule (150 mg total) by [...] 1 tablet by mouth daily. 10/06/2017 2 mupirocin 2 % ointment Apply topically 2 (two) times a day. Bid and prn 0 polyvinyl alcohol 1.4 % ophthalmic solution Place 1 drop into both eyes 3 (three) times daily. 1 potassium chloride CR 10 MEQ tablet Take 20 mEq by mouth daily. 0 predniSONE 5 mg tablet Take 5 mg by mouth as needed. 04/26/2019 2 saccharomyces boulardii (FLORASTOR) 250 MG capsule Take 1 capsule by mouth 2 (two) times daily. 2 vitamin D2, ergocalciferol, 78247 UNITS capsule Take 2 capsules by mouth once a week. Thursday12/29/2017 0 documented as of this encounter Progress Notes * Yolanda Pryor NP - 08/24/2020 11:56 AM CST NNO. WNL. SHING ROOM SUPERVISOR documented in this encounter Plan of Treatment Not on file documented as of this encounter Goals Goal Patient Goal Type Associated Problems Recent Progress Patient-Stated? Author Establish Plan for Regular Lab Work General No Marlys Sam RN documented as of this encounter Procedures Procedure Name Priority Date/Time Associated Diagnosis Comments POTASSIUM, SERUM Routine 08/24/2020 11:1 5 AM FINISHING ROOM SUPERVISOR Abnormal blood chemistry documented in this encounter Results * POTASSIUM, SERUM (08/24/2020 11:15 AM FINISHING ROOM SUPERVISOR) POTASSIUM S/P/B 4.1 3.5 - 5.1 MMOL/L 08/24/2020 12:08 PM FINISHING ROOM SUPERVISOR [facility] 08/24/2020 11:1 5 AM FINISHING ROOM SUPERVISOR Yolanda Dorsey NP LABORATORY Final Result [facility] [address] [place] [address], documented in this encounter Visit Diagnoses Diagnosis Abnormal blood chemistry Other abnormal blood chemistry documented in this encounter Care Teams Hat Lining Blocker Relationship Specialty Start Date End Date Jayesh Lara DO PCP - General INTERNAL MEDICINE 02/24/20 12/12/20 Yolanda Dorsey NP Nurse Practitioner Nurse Practitioner Family 02/24/20 01/23/21 documented as of this encounter
--- OUTSIDE RECORDS SUMMARY | 2024-09-21 01:15 | XMS_ITS | Encounter Summary ---
Author Organization [facility] Address [address] [facility] [place] [address] [place] [address] Care Team Providers Care Welding Machine Operator Resistance Name Role Phone Yolanda Dorsey HOSE INSPECTOR Unavailable Jayesh Lara DO Primary Care Provider [phone] Encounter Details Date Type Department Care Team (Latest Contact Info) Description 08/15/2020 Scan HEALTH INFO SRVCS Scanned, Documents Social [...] COVID-19? Unable to assess 07/29/2020 8:12 PM AUTHORIZATION NURSE documented as of this encounter Functional Status * RETIRED Are you deaf or do you have serious difficulty hearing Answer Date of Assessment Author Status No 07/29/2020 8:15 PM AUTHORIZATION NURSE Activ e * RETIRED Are you blind or do you have serious difficulty seeing, even when wearing glasses? Answer Date of Assessment Author Status No 07/29/2020 8:15 PM AUTHORIZATION NURSE Activ e * Do you have serious [...] on filedocumented in this encounter Care Teams Welding Machine Operator Resistance Relationship Specialty Start Date End Date Jayesh Lara DO PCP - General INTERNAL MEDICINE 02/24/20 12/12/20 Yolanda Dorsey NP Nurse Practitioner Nurse Practitioner Family 02/24/20 01/23/21 documented as of this encounter
--- OUTSIDE RECORDS SUMMARY | 2024-09-21 01:15 | XMS_ITS | Encounter Summary ---
Author Organization [facility] Address [facility] [place] [address] [place] [address] Care Team Providers Care Co Supervisor Grounds And Landscape Name Role Phone Yolanda Dorsey MERCHANDISING EXECUTION MANAGER Unavailable Jayesh Lara DO Primary Care Provider Reason for Visit * Reason Onset Date Comments Diabetes 08/09/2020 Encounter Details Date Type Department Care Team (Late st Contact Info) Description 08/09/2020 Telephone [facility] [address] [place] [address] [address] [place] [address] [place] [address] [place] [address] Diabetes Social History Tobacco Use Types Packs/Day Years [...] COVID-19? Unable to assess 07/29/2020 8:12 PM EQUITY STRUCTURER documented as of this encounter Functional Status * RETIRED Are you deaf or do you have serious difficulty hearing Answer Date of Assessment Author Status No 07/29/2020 8:15 PM EQUITY STRUCTURER Activ e * RETIRED Are you blind or do you have serious difficulty seeing, even when wearing glasses? Answer Date of Assessment Author Status No 07/29/2020 8:15 PM EQUITY STRUCTURER Activ e * Do you have serious difficulty walking or climbing stairs? Answer Date of Assessment Author Status Yes 07/29/2020 8:15 PM EQUITY STRUCTURER Nirali Lyons R N Active * Do you have difficulty dressing or bathing? Answer Date of Assessment Author Status Yes 07/29/2020 8:15 PM EQUITY STRUCTURER Nirali Lyons R N Active * Because of a physical, mental, or emotional condition, do you have difficulty doing errands alone such as visiting a doctor's office or shopping? Answer Date of Assessment Author Status Yes 07/29/2020 8:15 PM EQUITY STRUCTURER Nirali Lyons R N Active documented as of this encounter Mental Status * Because of a physical, mental, or emotional condition, do you have serious difficulty concentrating, remembering, or making decisions? Answer Entry Date Author Status Yes 07/29/2020 8:15 PM EQUITY STRUCTURER Nirali Lyons R N Active documented in this encounter Progress Notes * Giovanna Buck NP - 08/09/2020 8:22 AM CST Nurse reporting glucose per CMP at 508. Pt is diabetic, was on prednisone while hospitalized however the prednisone ended 08/01/20. Advised starting pt on standing order SSI and monitor glucose carefully. Call and report is glucose not trending down. TY STRUCTURER documented in this encounter Plan of Treatment Not on file documented as of this encounter Goals Goal Patient Goal Type Associated Problems Recent Progress Patient-Stated? Author Establish Plan for Regular Lab Work General No Marlys Sam RN documented as of this encounter Visit Diagnoses Not on filedocumented in this encounter Care Teams Co Supervisor Grounds And Landscape Relationship Specialty Start Date End Date Jayesh Lara DO PCP - General INTERNAL MEDICINE 02/24/20 12/12/20 Yolanda Dorsey NP Nurse Practitioner Nurse Practitioner Family 02/24/20 01/23/21 documented as of this encounter
--- OUTSIDE RECORDS SUMMARY | 2024-09-21 01:15 | XMS_ITS | Encounter Summary ---
Author Organization [facility] Address [facility] [place] [address] [place] [address] Care Team Providers Care Cigarette Tester Name Role Phone Yolanda Dorsey BAR HELPER Unavailable Jayesh Lara DO Primary Care Provider [phone] Encounter Details Date Type Department Care Team (Late st Contact Info) Description 08/17/2020 Orders Only [facility] [address] [place], [place] [id number] Yolanda Dorsey, SHANKAR [address] [address] Social History Tobacco Use Types [...] COVID-19? Unable to assess 07/29/2020 8:12 PM PROFESSOR OF HISTORICAL THEOLOGY documented as of this encounter Functional Status * RETIRED Are you deaf or do you have serious difficulty hearing Answer Date of Assessment Author Status No 07/29/2020 8:15 PM PROFESSOR OF HISTORICAL THEOLOGY Activ e * RETIRED Are you blind or do you have serious difficulty seeing, even when wearing glasses? Answer Date of Assessment Author Status No 07/29/2020 8:15 PM PROFESSOR OF HISTORICAL THEOLOGY Activ e * Do you have serious difficulty walking or climbing stairs? Answer Date of Assessment Author Status Yes 07/29/2020 8:15 PM PROFESSOR OF HISTORICAL THEOLOGY Nirali Lyons R N Active * Do you have difficulty dressing or bathing? Answer Date of Assessment Author Status Yes 07/29/2020 8:15 PM PROFESSOR OF HISTORICAL THEOLOGY Nirali Lyons R N Active * Because of a physical, mental, or emotional condition, do you have difficulty doing errands alone such as visiting a doctor's office or shopping? Answer Date of Assessment Author Status Yes 07/29/2020 8:15 PM PROFESSOR OF HISTORICAL THEOLOGY Nirali Lyons R N Active documented as of this encounter Mental Status * Because of a physical, mental, or emotional condition, do you have serious difficulty concentrating, remembering, or making decisions? Answer Entry Date Author Status Yes 07/29/2020 8:15 PM PROFESSOR OF HISTORICAL THEOLOGY Nirali Lyons R N Active documented in this encounter Plan of Treatment Not on file documented as of this encounter Goals Goal Patient Goal Type Associated Problems Recent Progress Patient-Stated? Author Establish Plan for Regular Lab Work General No Marlys Sam RN documented as of this encounter Results * POTASSIUM, SERUM (08/17/2020 11:15 AM PROFESSOR OF HISTORICAL THEOLOGY) POTASSIUM S/P/B 4.2 3.5 - 5.1 MMOL/L 08/17/2020 12:08 PM PROFESSOR OF HISTORICAL THEOLOGY [facility] 08/17/2020 11:1 5 AM PROFESSOR OF HISTORICAL THEOLOGY us Yolanda Dorsey BAR HELPER LABORATORY Final Result [facility] [address] [place] [address], documented in this encounter Visit Diagnoses Diagnosis Hyperkaluria- Primary Hypopotassemia documented in this encounter Care Teams Cigarette Tester Relationship Specialty Start Date End Date Jayesh Lara DO PCP - General INTERNAL MEDICINE 02/24/20 12/12/20 Yolanda Dorsey NP Nurse Practitioner Nurse Practitioner Family 02/24/20 01/23/21 documented as of this encounter
--- OUTSIDE RECORDS SUMMARY | 2024-09-21 01:15 | XMS_ITS | Encounter Summary ---
Author Organization [facility] Address [facility]6 [facility] [place] [place] [address] [place] [address] Care Team Providers Care Flyer Maker Name Role Phone Yolanda Dorsey DRONE OPERATOR Unavailable Jayesh Lara DO Primary Care Provider [phone] Reason for Visit * Reason Onset Date Comments Fax Documentation 08/15/2020 blood sugars Encounter Details Date Type Department Care Team (Latest Contact Info) Description 08/15/2020 ELECTRICAL CONTROLS DESIGNER ONLY [facility] 9401 [facility] 112 [place] [address] Yolanda Dorsey, SHANKAR [address] [address] Fax Documentation (blood sugars) Social [...] COVID-19? Unable to assess 07/29/2020 8:12 PM ROUTE PROCESS ADMINISTRATOR documented as of this encounter Functional Status * RETIRED Are you deaf or do you have serious difficulty hearing Answer Date of Assessment Author Status No 07/29/2020 8:15 PM ROUTE PROCESS ADMINISTRATOR Activ e * RETIRED Are you blind or do you have serious difficulty seeing, even when wearing glasses? Answer Date of Assessment Author Status No 07/29/2020 8:15 PM ROUTE PROCESS ADMINISTRATOR Activ e * Do you have serious difficulty walking or climbing stairs? Answer Date of Assessment Author Status Yes 07/29/2020 8:15 PM ROUTE PROCESS ADMINISTRATOR Nirali Lyons R N Active * Do you have difficulty dressing or bathing? Answer Date of Assessment Author Status Yes 07/29/2020 8:15 PM ROUTE PROCESS ADMINISTRATOR Nirali Lyons R N Active * Because of a physical, mental, or emotional condition, do you have difficulty doing errands alone such as visiting a doctor's office or shopping? Answer Date of Assessment Author Status Yes 07/29/2020 8:15 PM ROUTE PROCESS ADMINISTRATOR Nirali Lyons R N Active documented as of this encounter Mental Status * Because of a physical, mental, or emotional condition, do you have serious difficulty concentrating, remembering, or making decisions? Answer Entry Date Author Status Yes 07/29/2020 8:15 PM ROUTE PROCESS ADMINISTRATOR Nirali Lyons R N Active documented in this encounter Progress Notes * Dorothy Kwong - 08/15/2020 1:33 PM CST Blood sugars range from 168 - 419 Receive Novolog sliding scale insulin and glimerpiride Order: Add lantus 10 units sc qpm. Update provider in one week of accu checks. E PROCESS ADMINISTRATOR documented in this encounter Plan of Treatment Not on file documented as of this encounter Goals Goal Patient Goal Type Associated Problems Recent Progress Patient-Stated? Author Establish Plan for Regular Lab Work General No Marlys Sam RN documented as of this encounter Visit Diagnoses Not on filedocumented in this encounter Care Teams Flyer Maker Relationship Specialty Start Date End Date Jayesh Lara DO PCP - General INTERNAL MEDICINE 02/24/20 12/12/20 Yolanda Dorsey NP Nurse Practitioner Nurse Practitioner Family 02/24/20 01/23/21 documented as of this encounter
--- OUTSIDE RECORDS SUMMARY | 2024-09-21 01:15 | XMS_ITS | Encounter Summary ---
Author Organization [facility] Address [facility] [place] [address] [place] [address] Care Team Providers Care Truss Assembler Name Role Phone Yolanda Dorsey CONCRETE SWIMMING POOL INSTALLER Unavailable Jayesh Lara DO Primary Care Provider [phone] Reason for Visit * Reason Onset Date Comments Lab Results 08/17/2020 potassium Encounter Details Date Type Department Care Team (Latest Contact Info) Description 08/17/2020 WAX PATTERN REPAIRER ONLY [facility] [address] [address] Yolanda Dorsey NP [address] [address] Lab Results (potassium ) Social History Tobacco Use Types Packs/Day [...] COVID-19? Unable to assess 07/29/2020 8:12 PM SEED CLEANER OPERATOR documented as of this encounter Functional Status * RETIRED Are you deaf or do you have serious difficulty hearing Answer Date of Assessment Author Status No 07/29/2020 8:15 PM SEED CLEANER OPERATOR Activ e * RETIRED Are you blind or do you have serious difficulty seeing, even when wearing glasses? Answer Date of Assessment Author Status No 07/29/2020 8:15 PM SEED CLEANER OPERATOR Activ e * Do you have serious difficulty walking or climbing stairs? Answer Date of Assessment Author Status Yes 07/29/2020 8:15 PM SEED CLEANER OPERATOR Nirali Lyons R N Active * Do you have difficulty dressing or bathing? Answer Date of Assessment Author Status Yes 07/29/2020 8:15 PM SEED CLEANER OPERATOR Nirali Lyons R N Active * Because of a physical, mental, or emotional condition, do you have difficulty doing errands alone such as visiting a doctor's office or shopping? Answer Date of Assessment Author Status Yes 07/29/2020 8:15 PM SEED CLEANER OPERATOR Nirail Lyons R N Active documented as of this encounter Mental Status * Because of a physical, mental, or emotional condition, do you have serious difficulty concentrating, remembering, or making decisions? Answer Entry Date Author Status Yes 07/29/2020 8:15 PM SEED CLEANER OPERATOR Nirali Lyons R N Active documented in this encounter Progress Notes * Savanah Mehta LPN - 08/17/2020 3:52 PM CST Yolanda Pryor APN reviewed potassium results. Potassium: 4.2 Orders: D/C Potassium supplement. Repeat potassium level in one week. CLEANER OPERATOR documented in this encounter Plan of Treatment Not on file documented as of this encounter Goals Goal Patient Goal Type Associated Problems Recent Progress Patient-Stated? Author Establish Plan for Regular Lab Work General No Marlys Sam RN documented as of this encounter Visit Diagnoses Not on filedocumented in this encounter Care Teams Truss Assembler Relationship Specialty Start Date End Date Jayesh Lara DO PCP - General INTERNAL MEDICINE 02/24/20 12/12/20 Yolanda Dorsey NP Nurse Practitioner Nurse Practitioner Family 02/24/20 01/23/21 documented as of this encounter
--- OUTSIDE RECORDS SUMMARY | 2024-09-21 01:15 | XMS_ITS | Encounter Summary ---
Author Organization [facility] Address [facility]6 [facility] [address] [place] [address] Care Team Providers Care Housekeeping And Laundry Team Leader Name Role Phone Yolanda Dorsye COORDINATOR OF ONLINE PROGRAMS Unavailable Jayesh Lara DO Primary Care Provider [phone] Reason for Visit * Reason Comments [facility] skilled follow-up Encounter Details Date Type Department Care Team (Late st Contact Info) Description 08/21/2020 8:[address] [facility] [address] [address] Yolanda Dorsey NP [address] [id number] [facility] (skilled follow-up) Social History Tobacco Use Types [...] COVID-19? Unable to assess 07/29/2020 8:12 PM SLASHER documented as of this encounter Last Filed Vital Signs Vital Sign Reading Time Taken Comments Blood Pressure 121/68 08/21/2020 8:33 AM SLASHER Pulse 74 08/21/2020 8:33 AM SLASHER Temperature 36.7 ??C (98 ??F) 08/21/2020 8:33 AM SLASHER Respiratory Rate 20 08/21/2020 8:33 AM SLASHER Oxygen Saturation - - Inhaled Oxygen Concentration - - Weight - - Height - - Body Mass Index - - documented in this encounter Functional Status * RETIRED Are you deaf or do you have serious difficulty hearing Answer Date of Assessment Author Status No 07/29/2020 8:15 PM SLASHER Activ e * RETIRED Are you blind or do you have serious difficulty seeing, even when wearing glasses? Answer Date of Assessment Author Status No 07/29/2020 8:15 PM SLASHER Activ e * Do you have serious difficulty walking or climbing stairs? Answer Date of Assessment Author Status Yes 07/29/2020 8:15 PM SLASHER Nirali Lyons R N Active * Do you have difficulty dressing or bathing? Answer Date of Assessment Author Status Yes 07/29/2020 8:15 PM SLASHER Nirali Lyons R N Active * Because of a physical, mental, or emotional condition, do you have difficulty doing errands alone such as visiting a doctor's office or shopping? Answer Date of Assessment Author Status Yes 07/29/2020 8:15 PM SLASHER Nirali Lyons R N Active documented as of this encounter Mental Status * Because of a physical, mental, or emotional condition, do you have serious difficulty concentrating, remembering, or making decisions? Answer Entry Date Author Status Yes 07/29/2020 8:15 PM SLASHER Nirali Lyons R N Active documented in this encounter Progress Notes * Yolanda Pryor NP - 08/21/2020 8:00 AM CST Images from the original note were not included. Reason for Visit: [facility] (skilled follow-up) History of Present Illness: I introduced and identified myself, received verbal consent?? from the patient to proceed with thisvideo visit and made the patient aware that the same confidentiality and fire information officer practices apply. The patient joined the video visit from [facility]. [facility] The following clinical staff helped with this visit Nurse: Melanie. Total Time Spent in Minutes: 19 Emelina Santoyo is an 80-year-old female who was seen today for a fdc home visit. She was recently discharged after [...] with PT/OT for strengthening and conditioning. Staff continues to report worsening of her left great toe despite interventions. AMS: Back to A&O x 1 which [...] by mouth daily., Disp: , Rfl: ??? mupirocin 2 % ointment, Apply topically 2 (two) times a day. Bid and prn, Disp: , Rfl: ??? polyvinyl alcohol 1.4 % ophthalmic solution, Place 1 drop into both eyes 3 (three) times daily., Disp: , Rfl: ??? potassium chloride CR 10 MEQ tablet, Take 20 mEq by mouth daily., Disp: , Rfl: ??? predniSONE 5 mg tablet, Take 5 mg by mouth as needed. , Disp: , Rfl: ??? saccharomyces boulardii (FLORASTOR) 250 MG capsule, Take 1 capsule by mouth 2 (two) times daily., Disp: , Rfl: ??? vitamin D2, ergocalciferol, 35611 UNITS capsule, Take 2 capsules by mouth once a week. Thursday, Disp: , Rfl: Allergies Allergen Reactions ??? Metronidazole Unknown Past Medical History: Diagnosis Date ??? Cholecystitis, unspecified 02/09/2019 ??? Chronic indwelling Zhang catheter Filed Vitals: 08/21/20 0833 BP: 121/68 Pulse: 74 Resp: 20 Temp: 98 ??F (36.7 ??C) Physical Exam [...] She is inattentive. Diagnoses/Impression: 1. Paronychia of great toe of left foot - Bactrim DS PO BID x 7 days. 2. Hyperkalemia - Potassium supplement discontinued. - Repeat potassium level 08/24/20. 3. Late onset Alzheimer's disease without behavioral disturbance ([facility]) Recommendations and Plan: Changes made as described above. Staff to continue to monitor and report any changes. Follow up in one week unless necessary sooner. Yolanda Pryor NP HER documented in this encounter Plan of Treatment Not on file documented as of this encounter Goals Goal Patient Goal Type Associated Problems Recent Progress Patient-Stated? 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
--- OUTSIDE RECORDS SUMMARY | 2024-09-21 01:15 | XMS_ITS | Encounter Summary ---
Author Organization [facility] Address [facility]6 [facility] [place] [address] [place] [address] Care Team Providers Care [employer] Computer Science Teacher Name Role Phone Yolanda Dorsey SIZE MIXER Unavailable Jayesh Lara DO Primary Care Provider [phone] Encounter Details Date Type Department Care Team (Late st Contact Info) Description 08/20/2020 Chart Prep [facility] 9401 [facility] [address] [place] [address] Yolanda Dosrey NP [address] [phone] Social History Tobacco Use Types Packs/Day Years [...] COVID-19? Unable to assess 07/29/2020 8:12 PM CHROME WORKER documented as of this encounter Functional Status * RETIRED Are you deaf or do you have serious difficulty hearing Answer Date of Assessment Author Status No 07/29/2020 8:15 PM CHROME WORKER Activ e * RETIRED Are you blind or do you have serious difficulty seeing, even when wearing glasses? Answer Date of Assessment Author Status No 07/29/2020 8:15 PM CHROME WORKER Activ e * Do you have serious [...] filedocumented in this encounter Care Teams [employer] Computer Science Teacher Relationship Specialty Start Date End Date Jayesh Lara DO PCP - General INTERNAL MEDICINE 02/24/20 12/12/20 Yolanda Dorsey NP Nurse Practitioner Nurse Practitioner Family 02/24/20 01/23/21 documented as of this encounter
--- OUTSIDE RECORDS SUMMARY | 2024-09-21 01:15 | XMS_ITS | Encounter Summary ---
Author Organization [facility] Address [facility] [place] [address] [place] [address] Care Team Providers Care Fingernail Former Name Role Phone Yolanda Dorsey EDUCATIONAL RESOURCE COORDINATOR Unavailable Jayesh Lara DO Primary Care Provider [phone] Encounter Details Date Type Department Care Team (Late st Contact Info) Description 08/24/2020 Orders Only [facility] [address] [place], [place] [id number] Yolanda Dorsey, SHANKAR [address] [address] Social History Tobacco Use Types [...] COVID-19? Unable to assess 07/29/2020 8:12 PM METHODS SPECIALIST documented as of this encounter Functional Status * RETIRED Are you deaf or do you have serious difficulty hearing Answer Date of Assessment Author Status No 07/29/2020 8:15 PM METHODS SPECIALIST Activ e * RETIRED Are you blind or do you have serious difficulty seeing, even when wearing glasses? Answer Date of Assessment Author Status No 07/29/2020 8:15 PM METHODS SPECIALIST Activ e * Do you have serious difficulty walking or climbing stairs? Answer Date of Assessment Author Status Yes 07/29/2020 8:15 PM METHODS SPECIALIST Nirali Lyons R N Active * Do you have difficulty dressing or bathing? Answer Date of Assessment Author Status Yes 07/29/2020 8:15 PM METHODS SPECIALIST Nirali Lyons R N Active * Because of a physical, mental, or emotional condition, do you have difficulty doing errands alone such as visiting a doctor's office or shopping? Answer Date of Assessment Author Status Yes 07/29/2020 8:15 PM METHODS SPECIALIST Nirali Lyons R N Active documented as of this encounter Mental Status * Because of a physical, mental, or emotional condition, do you have serious difficulty concentrating, remembering, or making decisions? Answer Entry Date Author Status Yes 07/29/2020 8:15 PM METHODS SPECIALIST Nirali Lyons R N Active documented in this encounter Plan of Treatment Not on file documented as of this encounter Goals Goal Patient Goal Type Associated Problems Recent Progress Patient-Stated? Author Establish Plan for Regular Lab Work General No Marlys Sam RN documented as of this encounter Results * POTASSIUM, SERUM (08/24/2020 11:15 AM METHODS SPECIALIST) POTASSIUM S/P/B 4.1 3.5 - 5.1 MMOL/L 08/24/2020 12:08 PM METHODS SPECIALIST [facility] 08/24/2020 11:1 5 AM METHODS SPECIALIST us Yolanda Dorsey EDUCATIONAL RESOURCE COORDINATOR LABORATORY Final Result [facility] [address] [place] [address], documented in this encounter Visit Diagnoses Diagnosis Abnormal blood chemistry- Primary Other abnormal blood chemistry documented in this encounter Care Teams Fingernail Former Relationship Specialty Start Date End Date Jayesh Lara DO PCP - General INTERNAL MEDICINE 02/24/20 12/12/20 Yolanda Dorsey NP Nurse Practitioner Nurse Practitioner Family 02/24/20 01/23/21 documented as of this encounter
--- OUTSIDE RECORDS SUMMARY | 2024-09-21 01:15 | XMS_ITS | Encounter Summary ---
Author Organization [facility] Address [facility]6 [facility] [place] [address] [place] [address] Care Team Providers Care Metal Machine Setter Name Role Phone Yolanda Dorsey GLOVE EXAMINER Unavailable Jayesh Lara DO Primary Care Provider [phone] Reason for Visit * Reason Onset Date Comments Fax Documentation 08/15/2020 lab results Encounter Details Date Type Department Care Team (Latest Contact Info) Description 08/15/[address] JUN[address] ONLY [facility] [address] [address] Yolanda Dorsey, SHANKAR [address] [address] Fax Documentation (lab results) Social History Tobacco Use Types Packs/Day Years [...] COVID-19? Unable to assess 07/29/2020 8:12 PM PHARMACIST INTERN documented as of this encounter Functional Status * RETIRED Are you deaf or do you have serious difficulty hearing Answer Date of Assessment Author Status No 07/29/2020 8:15 PM PHARMACIST INTERN Activ e * RETIRED Are you blind or do you have serious difficulty seeing, even when wearing glasses? Answer Date of Assessment Author Status No 07/29/2020 8:15 PM PHARMACIST INTERN Activ e * Do you have serious difficulty walking or climbing stairs? Answer Date of Assessment Author Status Yes 07/29/2020 8:15 PM PHARMACIST INTERN Nirali Lyons R N Active * Do you have difficulty dressing or bathing? Answer Date of Assessment Author Status Yes 07/29/2020 8:15 PM PHARMACIST INTERN Nirali Lyons R N Active * Because of a physical, mental, or emotional condition, do you have difficulty doing errands alone such as visiting a doctor's office or shopping? Answer Date of Assessment Author Status Yes 07/29/2020 8:15 PM PHARMACIST INTERN Nirali Lyons R N Active documented as of this encounter Mental Status * Because of a physical, mental, or emotional condition, do you have serious difficulty concentrating, remembering, or making decisions? Answer Entry Date Author Status Yes 07/29/2020 8:15 PM PHARMACIST INTERN Nirali Lyons R N Active documented in this encounter Progress Notes * Dorothy Kwong - 08/15/2020 1:31 PM CST Lab results: Glucose 260, Potassium 5.3, EST GFR afric/amer 82 Order: Order sent 08/14 - hold supplemental potassium x 3 days. Repeat potassium level Friday 08/17 MACIST INTERN documented in this encounter Plan of Treatment Not on file documented as of this encounter Goals Goal Patient Goal Type Associated Problems Recent Progress Patient-Stated? Author Establish Plan for Regular Lab Work General No Marlys Sam RN documented as of this encounter Visit Diagnoses Not on filedocumented in this encounter Care Teams Metal Machine Setter Relationship Specialty Start Date End Date Jayesh Lara DO PCP - General INTERNAL MEDICINE 02/24/20 12/12/20 Yolanda Dorsey NP Nurse Practitioner Nurse Practitioner Family 02/24/20 01/23/21 documented as of this encounter
--- OUTSIDE RECORDS SUMMARY | 2024-09-21 01:15 | XMS_ITS | Encounter Summary ---
Author Organization [facility] Address [facility]6 [facility] [address] [place] [address] Care Team Providers Care Personal Banking Advisor Name Role Phone Yolanda Dorsey SOFTWARE DEVELOPMENT ANALYST Unavailable Jayesh Lara DO Primary Care Provider [phone] Encounter Details Date Type Department Care Team (Late st Contact Info) Description 08/14/2020 Orders Only [facility] [address] [place], [place] [id number] [place] [address] [place] [address] Social History Tobacco Use Types Packs/Day Years [...] COVID-19? Unable to assess 07/29/2020 8:12 PM MOSAIC TILE MAKER documented as of this encounter Functional Status * RETIRED Are you deaf or do you have serious difficulty hearing Answer Date of Assessment Author Status No 07/29/2020 8:15 PM MOSAIC TILE MAKER Activ e * RETIRED Are you blind or do you have serious difficulty seeing, even when wearing glasses? Answer Date of Assessment Author Status No 07/29/2020 8:15 PM MOSAIC TILE MAKER Activ e * Do you have serious difficulty walking or climbing stairs? Answer Date of Assessment Author Status Yes 07/29/2020 8:15 PM MOSAIC TILE MAKER Nirali Lyons R N Active * Do you have difficulty dressing or bathing? Answer Date of Assessment Author Status Yes 07/29/2020 8:15 PM MOSAIC TILE MAKER Nirali Lyons R N Active * Because [...] as of this encounter Results * (ABNORMAL) BASIC METABOLIC PANEL (08/14/2020 1:25 PM [facility] GLUCOSE 260(H) 70 - 99 MG/DL 08/14/2020 3:04 PM [facility] BUN 14 7 - 18 MG/DL 08/14/2020 3:04 PM [facility] CREATININE S/P/B 0.80 0.55 - 1.02 MG/DL 08/14/2020 3:04 PM [facility] SODIUM S/P/B 139 136 - 145 MMOL/L 08/14/2020 3:04 PM [facility] POTASSIUM S/P/B 5.3(H) 3.5 - 5.1 MMOL/L 08/14/2020 3:04 PM [facility] CHLORIDE S/P/B 103 100 - 108 MMOL/L 08/14/2020 3:04 PM [facility] CO2 25.2 21 - 32 MMOL/L 08/14/2020 3:04 PM [facility] CALCIUM S/P/B 9.0 8.5 - 10.1 MG/DL 08/14/2020 3:04 PM [facility] ANION GAP 10.8 5 - 15 MMOL/L 08/14/2020 3:04 PM [facility] BUN CREATININE RATIO 17.5 6 - 26 08/14/2020 3:04 PM [facility] EGFR NON-AFR. AMER. 71(L) >90 ML/MIN/1.7 3 M2 08/14/2020 3:04 PM [facility] EGFR AFR. AMER. 82(L) >90 ML/MIN/1.7 3 M2 08/14/2020 3:04 PM [facility] Comment: NOTE: eGFR is not calculated for patients <18 years of age. This is an estimated GFR (CKD EPI) and should not be used for calculating drug doses. 08/14/2020 1:25 PM MOSAIC TILE MAKER Giovanna Buck NP LABORATORY Final Result [facility] [address] [place] [address], documented in this encounter Visit Diagnoses Diagnosis Hypouricemia- Primary Other abnormal blood chemistry documented in this encounter Care Teams Personal Banking Advisor Relationship Specialty Start Date End Date Jayesh Lara DO PCP - General INTERNAL MEDICINE 02/24/20 12/12/20 Yolanda Dorsey NP Nurse Practitioner Nurse Practitioner Family 02/24/20 01/23/21 documented as of this encounter
--- OUTSIDE RECORDS SUMMARY | 2024-09-21 01:15 | XMS_ITS | Encounter Summary ---
Author Organization [facility] Address Count includes the [facility]6 [place] [address] [place] [address] Care Team Providers Care Electrolysis Operator Name Role Phone Yolanda Dorsey LICENSED CUSTOMS BROKER Unavailable Jayesh Lara DO Primary Care Provider [phone] Encounter Details Date Type Department Care Team (Late st Contact Info) Description 08/15/2020 Chart Prep [facility] [address] [facility] [address] [place] [address] Yolanda Dorsey NP [address] [id number] Social History Tobacco Use Types Packs/Day Years [...] COVID-19? Unable to assess 07/29/2020 8:12 PM MEMBER SERVICE SPECIALIST documented as of this encounter Functional Status * RETIRED Are you deaf or do you have serious difficulty hearing Answer Date of Assessment Author Status No 07/29/2020 8:15 PM MEMBER SERVICE SPECIALIST Activ e * RETIRED Are you blind or do you have serious difficulty seeing, even when wearing glasses? Answer Date of Assessment Author Status No 07/29/2020 8:15 PM MEMBER SERVICE SPECIALIST Activ e * Do you have [...] on filedocumented in this encounter Care Teams Electrolysis Operator Relationship Specialty Start Date End Date Jayesh Lara DO PCP - General INTERNAL MEDICINE 02/24/20 12/12/20 Yolanda Dorsey NP Nurse Practitioner Nurse Practitioner Family 02/24/20 01/23/21 documented as of this encounter
--- OUTSIDE RECORDS SUMMARY | 2024-09-21 01:15 | XMS_ITS | Encounter Summary ---
Author Organization [facility] Address [facility] [place] [address] [place] [address] Care Team Providers Care Trauma Therapist Name Role Phone Yolanda Dorsey INVOICE CONTROL CLERK Unavailable Jayesh Lara DO Primary Care Provider [phone] Encounter Details Date Type Department Care Team (Latest Contact Info) Description 08/14/2020 2:35 PM CONSERVATION SCIENCE TEACHER - 08/14/2020 11:59 PM CONSERVATION SCIENCE TEACHER Hospital Encounter [facility] [address] [place], [place] [id number] [place] [address] [place] [address] Discharge Disposition: Home or Self Care (Routine [...] COVID-19? Unable to assess 07/29/2020 8:12 PM CONSERVATION SCIENCE TEACHER documented as of this encounter Functional Status * RETIRED Are you deaf or do you have serious difficulty hearing Answer Date of Assessment Author Status No 07/29/2020 8:15 PM CONSERVATION SCIENCE TEACHER Activ e * RETIRED Are you blind or do you have serious difficulty seeing, even when wearing glasses? Answer Date of Assessment Author Status No 07/29/2020 8:15 PM CONSERVATION SCIENCE TEACHER Activ e * Do you have [...] 7 Day Supply 15 tablet 08/01/2020 2 lisinopril 10 MG tabletIndications: Essential hypertension [...] long-term current use of insulin ([facility]) Take 1 capsule (150 mg total) by [...] potassium chloride CR 10 MEQ tablet Take 2 tablets by mouth daily. 12/29/2017 0 predniSONE 5 mg tablet Take 5 mg by mouth as needed. 04/26/2019 2 saccharomyces boulardii (FLORASTOR) 250 MG capsule Take 1 capsule by mouth 2 (two) times daily. 2 vitamin D2, ergocalciferol, 23363 UNITS capsule Take 2 capsules by mouth once a week. Thursday12/29/2017 0 documented as of this encounter Progress Notes * Yolanda Pryor NP - 08/14/2020 2:35 PM CST Hold supplemental potassium x 3 days. Repeat potassium level 08/17/20. ERVATION SCIENCE TEACHER documented in this encounter Plan of Treatment Not on file documented as of this encounter Goals Goal Patient Goal Type Associated Problems Recent Progress Patient-Stated? Author Establish Plan for Regular Lab Work General No Marlys Sam RN documented as of this encounter Procedures Procedure Name Priority Date/Time Associated Diagnosis Comments BASIC METABOLIC PANEL Routine 08/14/2020 1:25 PM CONSERVATION SCIENCE TEACHER Hypouricemia documented in this encounter Results * (ABNORMAL) BASIC METABOLIC PANEL (08/14/2020 1:25 PM CONSERVATION SCIENCE TEACHER) GLUCOSE 260(H) 70 - 99 MG/DL 08/14/2020 3:04 PM [facility] BUN 14 7 - 18 MG/DL 08/14/2020 3:04 PM [facility] CREATININE S/P/B 0.80 0.55 - 1.02 MG/DL 08/14/2020 3:04 PM [facility] SODIUM S/P/B 139 136 - 145 MMOL/L 08/14/2020 3:04 PM [facility] POTASSIUM S/P/B 5.3(H) 3.5 - 5.1 MMOL/L 08/14/2020 3:04 PM [facility] CHLORIDE S/P/B 103 100 - 108 MMOL/L 08/14/2020 3:04 PM [facility] CO2 25.2 21 - 32 MMOL/L 08/14/2020 3:04 PM [facility] CALCIUM S/P/B 9.0 8.5 - 10.1 MG/DL 08/14/2020 3:04 PM [facility] ANION GAP 10.8 5 - 15 MMOL/L 08/14/2020 3:04 PM [facility] BUN CREATININE RATIO 17.5 6 - 26 08/14/2020 3:04 PM [facility] EGFR NON-AFR. AMER. 71(L) >90 ML/MIN/1.7 3 M2 08/14/2020 3:04 PM [facility] EGFR AFR. AMER. 82(L) >90 ML/MIN/1.7 3 M2 08/14/2020 3:04 PM [facility] Comment: NOTE: eGFR is not calculated for patients <18 years of age. This is an estimated GFR (CKD EPI) and should not be used for calculating drug doses. 08/14/2020 1:25 PM CONSERVATION SCIENCE TEACHER us Giovanna Buck NP LABORATORY Final Result [facility] [address] [place] [address], documented in this encounter Visit Diagnoses Diagnosis Hypouricemia Other abnormal blood chemistry documented in this encounter Care Teams Trauma Therapist Relationship Specialty Start Date End Date Jayesh Lara DO PCP - General INTERNAL MEDICINE 02/24/20 12/12/20 Yolanda Dorsey NP Nurse Practitioner Nurse Practitioner Family 02/24/20 01/23/21 documented as of this encounter
--- OUTSIDE RECORDS SUMMARY | 2024-09-21 01:15 | XMS_ITS | Encounter Summary ---
Author Organization [facility] Address [facility]6 [facility] [address] [place] [address] Care Team Providers Care Portrait Artist Name Role Phone Yolanda Dorsey GREASE RENDERER Unavailable Jayesh Lara DO Primary Care Provider [phone] Reason for Visit * Reason Onset Date Comments Lab Results 08/09/2020 CMP, CBC Encounter Details Date Type Department Care Team (Late st Contact Info) Description 08/09/2020 PUMPER BREWERY ONLY [facility] [address] [facility] [address] [place] [address] [place] [address] [place] [address] Lab Results (CMP, CBC ) Social History Tobacco Use Types Packs/Day [...] COVID-19? Unable to assess 07/29/2020 8:12 PM BUSINESS ANALYST PROJECT MANAGER documented as of this encounter Functional Status * RETIRED Are you deaf or do you have serious difficulty hearing Answer Date of Assessment Author Status No 07/29/2020 8:15 PM BUSINESS ANALYST PROJECT MANAGER Activ e * RETIRED Are you blind or do you have serious difficulty seeing, even when wearing glasses? Answer Date of Assessment Author Status No 07/29/2020 8:15 PM BUSINESS ANALYST PROJECT MANAGER Activ e * Do you have serious difficulty walking or climbing stairs? Answer Date of Assessment Author Status Yes 07/29/2020 8:15 PM BUSINESS ANALYST PROJECT MANAGER Nirali Lyons R N Active * Do you have difficulty dressing or bathing? Answer Date of Assessment Author Status Yes 07/29/2020 8:15 PM BUSINESS ANALYST PROJECT MANAGER Nirali Lyons R N Active * Because of a physical, mental, or emotional condition, do you have difficulty doing errands alone such as visiting a doctor's office or shopping? Answer Date of Assessment Author Status Yes 07/29/2020 8:15 PM BUSINESS ANALYST PROJECT MANAGER Nirali Lyons R N Active documented as of this encounter Mental Status * Because of a physical, mental, or emotional condition, do you have serious difficulty concentrating, remembering, or making decisions? Answer Entry Date Author Status Yes 07/29/2020 8:15 PM BUSINESS ANALYST PROJECT MANAGER Nirali Lyons R N Active documented in this encounter Progress Notes * Savanah Mehta LPN - 08/09/2020 1:48 PM CST Giovanna Buck APN reviewed CMP and CBC results. Orders: Send glucose log in 1 week. Repeat BMP Thursday. NESS ANALYST PROJECT MANAGER documented in this encounter Plan of Treatment Not on file documented as of this encounter Goals Goal Patient Goal Type Associated Problems Recent Progress Patient-Stated? Author Establish Plan for Regular Lab Work General No Marlys Sam RN documented as of this encounter Visit Diagnoses Not on filedocumented in this encounter Care Teams Portrait Artist Relationship Specialty Start Date End Date Jayesh Lara DO PCP - General INTERNAL MEDICINE 02/24/20 12/12/20 Yolanda Dorsey NP Nurse Practitioner Nurse Practitioner Family 02/24/20 01/23/21 documented as of this encounter
--- OUTSIDE RECORDS SUMMARY | 2024-09-21 01:15 | XMS_ITS | Encounter Summary ---
Author Organization [facility] Address [address] [facility] [place] [address] [place] [address] Care Team Providers Care Materials Tech Name Role Phone Yolanda Dorsey DESIGN CHIEF Unavailable Jayesh Lara DO Primary Care Provider [phone] Reason for Visit * Reason Comments Lab (SCAN) Encounter Details Date Type Department Care Team (Latest Contact Info) Description 08/14/2020 Scan HEALTH INFO SRVCS Scanned, Documents Lab [...] COVID-19? Unable to assess 07/29/2020 8:12 PM EMPLOYMENT AGENCY MANAGER documented as of this encounter Functional Status * RETIRED Are you deaf or do you have serious difficulty hearing Answer Date of Assessment Author Status No 07/29/2020 8:15 PM EMPLOYMENT AGENCY MANAGER Activ e * RETIRED Are you blind or do you have serious difficulty seeing, even when wearing glasses? Answer Date of Assessment Author Status No 07/29/2020 8:15 PM EMPLOYMENT AGENCY MANAGER Activ e * Do you have [...] Associated Diagnosis Comments OUTSIDE LAB (SCAN ORDER) 08/14/2020 documented in this encounter Results * OUTSIDE LAB (SCAN) (08/14/2020) 08/14/2020 Narrative 08/14/2020 Ordered by an unspecified provider. us Documents Scanned SCANNING Final Result documented in this encounter Visit Diagnoses Not on filedocumented in this encounter Care Teams Materials Tech Relationship Specialty Start Date End Date Jayesh Lara DO PCP - General INTERNAL MEDICINE 02/24/20 12/12/20 Yolanda Dorsey NP Nurse Practitioner Nurse Practitioner Family 02/24/20 01/23/21 documented as of this encounter
--- OUTSIDE RECORDS SUMMARY | 2024-09-21 01:15 | XMS_ITS | Encounter Summary ---
Author Organization [facility] Address [facility]6 [facility] [place] [address] [place] [address] Care Team Providers Care Diagrammer Name Role Phone Yolanda Dorsey WINDING DEPARTMENT SUPERVISOR Unavailable Jayesh Lara DO Primary Care Provider [phone] Encounter Details Date Type Department Care Team (Late st Contact Info) Description 08/15/2020 Chart Prep [facility] [address] [facility] [address] [place] [address] Yolanda Dorsey NP [address] [address] Social History Tobacco Use Types Packs/Day Years [...] COVID-19? Unable to assess 07/29/2020 8:12 PM BUDGET COORDINATOR documented as of this encounter Functional Status * RETIRED Are you deaf or do you have serious difficulty hearing Answer Date of Assessment Author Status No 07/29/2020 8:15 PM BUDGET COORDINATOR Activ e * RETIRED Are you blind or do you have serious difficulty seeing, even when wearing glasses? Answer Date of Assessment Author Status No 07/29/2020 8:15 PM BUDGET COORDINATOR Activ e * Do you have [...] on filedocumented in this encounter Care Teams Diagrammer Relationship Specialty Start Date End Date Jayesh Lara DO PCP - General INTERNAL MEDICINE 02/24/20 12/12/20 Yolanda Dorsey NP Nurse Practitioner Nurse Practitioner Family 02/24/20 01/23/21 documented as of this encounter
--- OUTSIDE RECORDS SUMMARY | 2024-09-21 01:15 | XMS_ITS | Encounter Summary ---
Author Organization [facility] Address [facility]6 [facility] [place] [address] [place] [address] Care Team Providers Care Coin Box Inspector Name Role Phone Yolanda Dorsey VICE PRESIDENT OF INSTRUCTION Unavailable Jayesh Lara DO Primary Care Provider [phone] Reason for Visit * Reason Onset Date Comments Lab Results 08/14/2020 BMP Encounter Details Date Type Department Care Team (Late st Contact Info) Description 08/14/2020 Telephone [facility] [address] [address] Yolanda Dorsye NP [address] [id number] Lab Results (BMP) Social History Tobacco Use Types Packs/Day Years [...] COVID-19? Unable to assess 07/29/2020 8:12 PM MARINE STEAM FITTER HELPER documented as of this encounter Functional Status * RETIRED Are you deaf or do you have serious difficulty hearing Answer Date of Assessment Author Status No 07/29/2020 8:15 PM MARINE STEAM FITTER HELPER Activ e * RETIRED Are you blind or do you have serious difficulty seeing, even when wearing glasses? Answer Date of Assessment Author Status No 07/29/2020 8:15 PM MARINE STEAM FITTER HELPER Activ e * Do you have serious difficulty walking or climbing stairs? Answer Date of Assessment Author Status Yes 07/29/2020 8:15 PM MARINE STEAM FITTER HELPER Nirali Lyons R N Active * Do you have difficulty dressing or bathing? Answer Date of Assessment Author Status Yes 07/29/2020 8:15 PM MARINE STEAM FITTER HELPER Nirali Lyons R N Active * Because of a physical, mental, or emotional condition, do you have difficulty doing errands alone such as visiting a doctor's office or shopping? Answer Date of Assessment Author Status Yes 07/29/2020 8:15 PM MARINE STEAM FITTER HELPER Nirali Lyons R N Active documented as of this encounter Mental Status * Because of a physical, mental, or emotional condition, do you have serious difficulty concentrating, remembering, or making decisions? Answer Entry Date Author Status Yes 07/29/2020 8:15 PM MARINE STEAM FITTER HELPER Nirali Lyons R N Active documented in this encounter Progress Notes * Savanah Mehta LPN - 08/14/2020 4:46 PM CST Yolanda Pryor APN reviewed BMP results. Orders: Hold supplemental Potassium x3 days. Repeat Potassium level Thursday08/17/20. Orders faxed to [facility]. NE STEAM FITTER HELPER * Savanah Mehta LPN - 08/14/2020 4:46 PM CST ----- Message from Yolanda Pryor NP sent at 08/14/2020 3:52 PM MARINE STEAM FITTER HELPER ----- Hold supplemental potassium x 3 days. Repeat potassium level 08/17/20. NE STEAM FITTER HELPER documented in this encounter Plan of Treatment Not on file documented as of this encounter Goals Goal Patient Goal Type Associated Problems Recent Progress Patient-Stated? Author Establish Plan for Regular Lab Work General No Marlys Sam RN documented as of this encounter Visit Diagnoses Not on filedocumented in this encounter Care Teams Coin Box Inspector Relationship Specialty Start Date End Date Jayesh Lara DO PCP - General INTERNAL MEDICINE 02/24/20 12/12/20 Yolanda Dorsey NP Nurse Practitioner Nurse Practitioner Family 02/24/20 01/23/21 documented as of this encounter
--- OUTSIDE RECORDS SUMMARY | 2024-09-21 01:15 | XMS_ITS | Encounter Summary ---
Author Organization [facility] Address [address] [facility] [place] [address] [place] [address] Care Team Providers Care Watershed Tender Name Role Phone Yolanda Dorsey PARTS SALESPERSON Unavailable Jayesh Lara DO Primary Care Provider [phone] Reason for Visit * Reason Comments Lab (SCAN) Encounter Details Date Type Department Care Team (Latest Contact Info) Description 08/17/2020 Scan HEALTH INFO SRVCS Scanned, Documents Lab [...] COVID-19? Unable to assess 07/29/2020 8:12 PM CLOCK SMITH documented as of this encounter Functional Status * RETIRED Are you deaf or do you have serious difficulty hearing Answer Date of Assessment Author Status No 07/29/2020 8:15 PM CLOCK SMITH Activ e * RETIRED Are you blind or do you have serious difficulty seeing, even when wearing glasses? Answer Date of Assessment Author Status No 07/29/2020 8:15 PM CLOCK SMITH Activ e * Do you have serious [...] Associated Diagnosis Comments OUTSIDE LAB (SCAN ORDER) 08/17/2020 documented in this encounter Results * OUTSIDE LAB (SCAN) (08/17/2020) 08/17/2020 Narrative 08/17/2020 Ordered by an unspecified provider. us Documents Scanned SCANNING Final Result documented in this encounter Visit Diagnoses Not on filedocumented in this encounter Care Teams Watershed Tender Relationship Specialty Start Date End Date Jayesh Lara DO PCP - General INTERNAL MEDICINE 02/24/20 12/12/20 Yolanda Dorsey NP Nurse Practitioner Nurse Practitioner Family 02/24/20 01/23/21 documented as of this encounter
--- OUTSIDE RECORDS SUMMARY | 2024-09-21 01:16 | XMS_ITS | Encounter Summary ---
Author Organization [facility] Address [address] [facility] [place] [address] [place] [address] Care Team Providers Care Cigarette Packer Name Role Phone Yolanda Dorsey SUPERVISOR PUMPING STATION Unavailable Jayesh Lara DO Primary Care Provider [phone] Reason for Visit * Reason Onset Date Comments Blood Sugar Reporting 07/16/2020 Encounter Details Date Type Department Care Team (Latest Contact Info) Description 07/16/2020 DATA ENTRY ANALYST ONLY [facility] [address] [address] Yolanda Dorsey NP [address] [address] Blood Sugar Reporting Social History Tobacco Use Types Packs/Day Years Used Date Smoking Tobacco: Unknown Comments Unknown Sex and Gender Information Value Date Recorded Sex Assigned at Not on file Legal Sex Female 10:25 PM CDT Gender Identity Not on file Sexual Orientation Not on file documented as of this encounter Progress Notes * Savanah Mehta LPN - 07/16/2020 3:43 PM CDT Received fax from [facility] reporting blood sugar log. Orders: Increase Glimepiride to 4mg PO QAM. documented in this encounter Plan of Treatment Not on file documented as of this encounter Visit Diagnoses Not on filedocumented in this encounter Care Teams Cigarette Packer Relationship Specialty Start Date End Date Jayesh Lara DO PCP - General INTERNAL MEDICINE 02/24/20 12/12/20 Yolanda Dorsey NP Nurse Practitioner Nurse Practitioner Family 02/24/20 01/23/21 documented as of this encounter
--- OUTSIDE RECORDS SUMMARY | 2024-09-21 01:16 | XMS_ITS | Encounter Summary ---
Author Organization [facility] Address [address] [place] [address] [place] [address] Care Team Providers Care Fur Glazer Name Role Phone Yolanda Dorsey ASSORTMENT PLANNER Unavailable Jayesh Lara DO Primary Care Provider [phone] Encounter Details Date Type Department Care Team (Latest Contact Info) Description 06/19/2020 Scan HEALTH INFO SRVCS Scanned, Documents Social History Tobacco Use Types Packs/Day Years Used Date Smoking Tobacco: Unknown Comments Unknown Sex and Gender Information Value Date Recorded Sex Assigned at Not on file Legal Sex Female 10:25 PM CDT Gender Identity Not on file Sexual Orientation Not on file documented as of this encounter Plan of Treatment Not on file documented as of this encounter Visit Diagnoses Not on filedocumented in this encounter Care Teams Fur Glazer Relationship Specialty Start Date End Date Jayesh Lara DO PCP - General INTERNAL MEDICINE 02/24/20 12/12/20 Yolanda Dorsey NP Nurse Practitioner Nurse Practitioner Family 02/24/20 01/23/21 documented as of this encounter
--- OUTSIDE RECORDS SUMMARY | 2024-09-21 01:16 | XMS_ITS | Encounter Summary ---
Author Organization [facility] Address [facility] [facility] [address] [place] [address] Care Team Providers Care Renewals Representative Name Role Phone Yolanda Dorsey FIREFIGHTER MARINE Unavailable Jayesh Lara DO Primary Care Provider [phone] Encounter Details Date Type Department Care Team (Latest Contact Info) Description 07/24/2020 Travel Social History Tobacco Use Types Packs/Day [...] or suspected to have Coronavirus / COVID-19? No / Unsure 07/24/2020 8:17 PM CDT documented as of this encounter Plan of Treatment Not on file documented as of this encounter Visit Diagnoses Not on filedocumented in this encounter Care Teams Renewals Representative Relationship Specialty Start Date End Date Jayesh Lara DO PCP - General INTERNAL MEDICINE 02/24/20 12/12/20 Yolanda Dorsey NP Nurse Practitioner Nurse Practitioner Family 02/24/20 01/23/21 documented as of this encounter
--- OUTSIDE RECORDS SUMMARY | 2024-09-21 01:16 | XMS_ITS | Encounter Summary ---
Author Organization [facility] Address [facility] [facility] [place] [address] [place] [address] Care Team Providers Care Managing Consultant Clinical Professor Name Role Phone Yolanda Dorsey BI MANAGER Unavailable Jayesh Lara DO Primary Care Provider [phone] Encounter Details Date Type Department Care Team (Late st Contact Info) Description 03/12/[address] [facility] [address] [facility] [address] [place] [address] Yolanda Dorsey NP [address] [phone] Social History Tobacco Use Types Packs/Day Years [...] long-term current use of insulin (CMS/HCC HHS/HCC) documented in this encounter Care Teams Managing Consultant Clinical Professor Relationship Specialty Start Date End Date Jayesh Lara DO PCP - General INTERNAL MEDICINE 02/24/20 12/12/20 Yolanda Dorsey NP Nurse Practitioner Nurse Practitioner Family 02/24/20 01/23/21 documented as of this encounter
--- OUTSIDE RECORDS SUMMARY | 2024-09-21 01:16 | XMS_ITS | Encounter Summary ---
Author Organization [facility] Address [facility] [facility] [place] [address] [place] [address] Care Team Providers Care Resolution Expert Name Role Phone Yolanda Dorsey PRODUCTION RECORDER Unavailable Jayesh Lara DO Primary Care Provider [phone] Reason for Visit * Reason Onset Date Comments Follow Up Call 08/02/2020 Encounter Details Date Type Department Care Team (Late st Contact Info) Description 08/02/2020 Telephone [facility] [address] [place] [address] Terri Bell, JAH Follow Up Call Social History Tobacco Use Types Packs/Day Years [...] COVID-19? Unable to assess 07/29/2020 8:12 PM PRODUCT DEVELOPMENT ASSISTANT documented as of this encounter Functional Status * RETIRED Are you deaf or do you have serious difficulty hearing Answer Date of Assessment Author Status No 07/29/2020 8:15 PM PRODUCT DEVELOPMENT ASSISTANT Activ e * RETIRED Are you blind or do you have serious difficulty seeing, even when wearing glasses? Answer Date of Assessment Author Status No 07/29/2020 8:15 PM PRODUCT DEVELOPMENT ASSISTANT Activ e * Do you have serious difficulty walking or climbing stairs? Answer Date of Assessment Author Status Yes 07/29/2020 8:15 PM PRODUCT DEVELOPMENT ASSISTANT Nirali Lyons R N Active * Do you have difficulty dressing or bathing? Answer Date of Assessment Author Status Yes 07/29/2020 8:15 PM PRODUCT DEVELOPMENT ASSISTANT Nirali Lyons R N Active * Because of a physical, mental, or emotional condition, do you have difficulty doing errands alone such as visiting a doctor's office or shopping? Answer Date of Assessment Author Status Yes 07/29/2020 8:15 PM PRODUCT DEVELOPMENT ASSISTANT Nirali Lyons R N Active documented as of this encounter Mental Status * Because of a physical, mental, or emotional condition, do you have serious difficulty concentrating, remembering, or making decisions? Answer Entry Date Author Status Yes 07/29/2020 8:15 PM PRODUCT DEVELOPMENT ASSISTANT Nirali Lyons R N Active documented in this encounter Progress Notes * Terri Bell RN - 08/02/2020 10:37 AM CST Spoke with staff nurse Ruby at [facility]. Stated patient is doing well, MO received all discharge information and orders. UCT DEVELOPMENT ASSISTANT documented in this encounter Plan of Treatment Not on file documented as of this encounter Goals Goal Patient Goal Type Associated Problems Recent Progress Patient-Stated? Author Establish Plan for Regular Lab Work General No Marlys Sam RN documented as of this encounter Visit Diagnoses Not on filedocumented in this encounter Care Teams Resolution Expert Relationship Specialty Start Date End Date Jayesh Lara DO PCP - General INTERNAL MEDICINE 02/24/20 12/12/20 Yolanda Dorsey NP Nurse Practitioner Nurse Practitioner Family 02/24/20 01/23/21 documented as of this encounter
--- OUTSIDE RECORDS SUMMARY | 2024-09-21 01:16 | XMS_ITS | Encounter Summary ---
Author Organization [facility] Address [facility] [facility] [address] [place] [address] Care Team Providers Care Food Processor Name Role Phone Yolanda Dorsey PNEUMATIC RIVETER Unavailable Jayesh Lara DO Primary Care Provider [phone] Encounter Details Date Type Department Care Team (Late st Contact Info) Description 08/07/2020 Chart Prep [facility] [address] [facility] [address] [place] [address] Yolanda Dorsey NP [address] [phone] Social History Tobacco Use Types Packs/Day Years [...] COVID-19? Unable to assess 07/29/2020 8:12 PM GEL COATER documented as of this encounter Functional Status * RETIRED Are you deaf or do you have serious difficulty hearing Answer Date of Assessment Author Status No 07/29/2020 8:15 PM GEL COATER Activ e * RETIRED Are you blind or do you have serious difficulty seeing, even when wearing glasses? Answer Date of Assessment Author Status No 07/29/2020 8:15 PM GEL COATER Activ e * Do you have serious [...] on filedocumented in this encounter Care Teams Food Processor Relationship Specialty Start Date End Date Jayesh Lara DO PCP - General INTERNAL MEDICINE 02/24/20 12/12/20 Yolanda Dorsey NP Nurse Practitioner Nurse Practitioner Family 02/24/20 01/23/21 documented as of this encounter
--- OUTSIDE RECORDS SUMMARY | 2024-09-21 01:16 | XMS_ITS | Encounter Summary ---
Author Organization [facility] Address [facility] [facility] [address] [place] [address] Care Team Providers Care Program Planner Name Role Phone Yolanda Dorsey VISCOSE CELLAR WORKER Unavailable Jayesh Lara DO Primary Care Provider [phone] Reason for Visit * Reason Onset Date Comments Refill Request 04/16/2020 Encounter Details Date Type Department Care Team (Late st Contact Info) Description 04/16/2020 Telephone [facility] [address] [address] Yolanda Dorsey NP [address] [address] Refill Request Social History Tobacco Use Types Packs/Day Years [...] long-term current use of insulin ([facility]/HCC [facility]) documented in this encounter Care Teams Program Planner Relationship Specialty Start Date End Date Jayesh Lara DO PCP - General INTERNAL MEDICINE 02/24/20 12/12/20 Yolanda Dorsey NP Nurse Practitioner Nurse Practitioner Family 02/24/20 01/23/21 documented as of this encounter
--- OUTSIDE RECORDS SUMMARY | 2024-09-21 01:16 | XMS_ITS | Encounter Summary ---
Author Organization [facility] Address [facility] [place] [address] [place] [address] Care Team Providers Care Greeting Card Maker Name Role Phone Sunita Yolanda CHAMPAGNE MAKER Unavailable Jayesh Lara DO Primary Care Provider [phone] Encounter Details Date Type Department Care Team (Late st Contact Info) Description 08/02/2020 Chart Prep [facility] [address] [facility] [address] [place] [address] Jayesh Lara DO [address] [phone] Social History Tobacco Use Types Packs/Day Years [...] COVID-19? Unable to assess 07/29/2020 8:12 PM COLLECTION ADMINISTRATOR documented as of this encounter Functional Status * RETIRED Are you deaf or do you have serious difficulty hearing Answer Date of Assessment Author Status No 07/29/2020 8:15 PM COLLECTION ADMINISTRATOR Activ e * RETIRED Are you blind or do you have serious difficulty seeing, even when wearing glasses? Answer Date of Assessment Author Status No 07/29/2020 8:15 PM COLLECTION ADMINISTRATOR Activ e * Do you have [...] on filedocumented in this encounter Care Teams Greeting Card Maker Relationship Specialty Start Date End Date Jayesh Lara DO PCP - General INTERNAL MEDICINE 02/24/20 12/12/20 Yolanda Dorsey NP Nurse Practitioner Nurse Practitioner Family 02/24/20 01/23/21 documented as of this encounter
--- OUTSIDE RECORDS SUMMARY | 2024-09-21 01:16 | XMS_ITS | Encounter Summary ---
Author Organization [facility] Address [address] [facility] [place] [address] [place] [address] Care Team Providers Care Financial Services Representative Name Role Phone Sunita Yolanda SENIOR IT SPECIALIST Unavailable Jayesh Lara DO Primary Care Provider [phone] Reason for Visit * Reason Comments Fpc routine Encounter Details Date Type Department Care Team (Late st Contact Info) Description 06/06/2020 10:20 AM CDT Telemedicine [facility] [address] [facility] [address] [place] [address] Jayesh Lara DO [address] [address] Fpc (routine) Social History Tobacco Use Types Packs/Day Years Used Date Smoking Tobacco: Unknown Comments Unknown Sex and Gender Information Value Date Recorded Sex Assigned at Not on file Legal Sex Female 10:25 PM CDT Gender Identity Not on file Sexual Orientation Not on file documented as of this encounter Last Filed Vital Signs Vital Sign Reading Time Taken Comments Blood Pressure 144/70 06/06/2020 10:00 AM CDT Pulse 74 06/06/2020 10:00 AM CDT Temperature 36.6 ??C (97.8 ??F) 06/06/2020 10:00 AM C DT Respiratory Rate 18 06/06/2020 10:00 AM CDT Oxygen Saturation - - Inhaled Oxygen Concentration - - Weight - - Height - - Body Mass Index - - documented in this encounter Progress Notes * Jayesh Lara DO - 06/06/2020 10:20 AM CDT Skilled/detention note I introduced and identified myself, received verbal consent from the patient to proceed with this video visit and made the patient aware that the same confidentiality and information systems project manager practices apply. The patient joined the video visit from the [facility]. I completed the virtual visit from home office. The following clinical staff helped with this visit nursing staff at the home. TotalTime Spent in Minutes: *20 seeing pt and reviewing labs and records and talking to staff Emelina Natanael 80-year-old 1940 [facility] [id number] female ? CC:* hypertension hyperlipidemia dementia* hypertension. Blood pressure elevated today on current meds Hyperlipidemia. Lipitor. No reports of muscle pain. Dementia. No reports of behaviors per the staff ASSESSMENT AND PLAN: essential hypertension. Norvasc. Uncontrolled. Monitor closely next several days. Hyperlipidemia. Lipitor. Stable. Dementia. Donepezil. Stable. ? -Social-pt has no questions /family has no questions according to nursing staff Old records requested and reviewed as above from [facility] and [facility] records Past Medical History: Diagnosis Date ??? Cholecystitis, unspecified 02/09/2019 ??? Chronic indwelling Zhang catheter Social- no smoking, alcohol, drugs ? family history Family History Family history unknown: Yes Allergies Allergen Reactions ??? Metronidazole Unknown Current Outpatient Medications on File Prior to Visit Medication Sig Dispense Refill ??? acetaminophen 325 MG tablet Take 650 mg by mouth every 4 (four) hours as needed for Pain. ??? amlodipine 10 MG tablet Take 1 tablet by mouth daily. ??? aspirin 81 MG chewable tablet Chew 1 tablet by mouth daily. ??? atorvastatin 40 MG tablet Take 80 mg by mouth nightly at bedtime. ??? Cranberry 250 MG Tab Take 1 tablet by mouth 2 (two) times a day. ??? cyanocobalamin 1000 MCG/ML injection Inject 1 mL into the muscle monthly. ??? dextromethorphan-guaifenesin 10-100 MG/5ML liquid Take 5 mLs by mouth every 4 (four) hours as needed. ??? donepezil 10 MG Tab Take 10 mg by mouth 2 (two) times daily. ??? glimepiride 1 MG tablet Take 2 mg by mouth daily. ??? lisinopril 10 MG tablet Take 1 tablet (10 mg total) by mouth daily. 30 tablet 0 ??? loperamide 2 MG capsule Take 2 mg by mouth 4 (four) times daily as needed for Diarrhea. ??? loratadine 10 MG tablet Take 1 tablet by mouth daily. ??? LYRICA 150 MG capsule Take 1 capsule (150 mg total) by mouth 2 (two) times a day. 60 capsule 0 ??? magnesium gluconate (MAG-G) tablet Take 27 mg by mouth 2 (two) times daily. ??? Magnesium Hydroxide (MILK OF MAGNESIA OR) Take 30 mLs by mouth daily as needed. ??? memantine ER (NAMENDA XR) 28 MG 24 hr capsule Take 1 capsule by mouth daily. ??? metoprolol tartrate 25 MG tablet Take 25 mg by mouth 2 (two) times daily. ??? Multiple Vitamin (THERA-MILL) Tab Take 1 tablet by mouth daily. ??? polyethylene glycol powder Take 17 g by mouth daily as needed. Dissolve powder in 240 mL water ??? polyvinyl alcohol 1.4 % ophthalmic solution Apply 1 drop to eye 3 (three) times daily. ??? potassium chloride CR 10 MEQ tablet Take 2 tablets by mouth daily. ??? predniSONE 5 mg tablet Take 5 mg by mouth daily. ??? saccharomyces boulardii (FLORASTOR) 250 MG capsule Take 1 capsule by mouth 2 (two) times daily. ??? vitamin D2, ergocalciferol, [address] UNITS capsule Take 2 capsules by mouth once a week. No current facility-administered medications on file prior to visit. ROS: unable confusion EXAM: Vitals below GENERAL: appeared to be in no acute distress. EYES: No discharge EARS, NOSE, THROAT: Moist mucous membranes. Respiratory: no distress Cardiovascular: perfusion good to extremities Gastrointestinal: Obese abdomen. No grimace to palpation GENITOURINARY: No appreciable suprapubic tenderness. MUSCULOSKELETAL: No ankle swelling. NEUROLOGIC: Not following commands well HEM/ONC: No apparent bleed. PSYCHIATRIC: Calm. confused vitals Filed Vitals: 06/06/20 1000 BP: 144/70 Pulse: 74 Resp: 18 Temp: 97.8 ??F (36.6 ??C) ? ? ? Lab Results Lab Results Component Value Date/Time WBC 6.3 03/02/2020 10:25 AM HGB 15.7 (H) 03/02/2020 10:25 AM documented in this encounter Plan of Treatment Not on file documented as of this encounter Visit Diagnoses Diagnosis Essential hypertension- Primary Unspecified essential hypertension documented in this encounter Care Teams Financial Services Representative Relationship Specialty Start Date End Date Jayesh Lara DO PCP - General INTERNAL MEDICINE 02/24/20 12/12/20 Yolanda Dorsey NP Nurse Practitioner Nurse Practitioner Family 02/24/20 01/23/21 documented as of this encounter
--- OUTSIDE RECORDS SUMMARY | 2024-09-21 01:16 | XMS_ITS | Encounter Summary ---
Author Organization [facility] Address [address] [place] [address] [place] [address] Care Team Providers Care Industrial Controller Name Role Phone Yolanda Dorsey RESPITE WORKER Unavailable Jayesh Lara DO Primary Care Provider [phone] Reason for Visit * Reason Onset Date Comments Fax Documentation 07/23/2020 order Encounter Details Date Type Department Care Team (Latest Contact Info) Description 07/23/2020 MANUFACTURING BUSINESS ANALYST ONLY [facility] [address] [place] [address] Yolanda Dorsey, SHANKAR [address] [phone] Fax Documentation (order) Social History Tobacco Use Types Packs/Day Years Used Date Smoking Tobacco: Unknown Comments Unknown Sex and Gender Information Value Date Recorded Sex Assigned at Not on file Legal Sex Female 10:25 PM CDT Gender Identity Not on file Sexual Orientation Not on file documented as of this encounter Progress Notes * Dorothy Kwong - 07/23/2020 4:16 PM CDT Facility faxed: Area noted to vaginal wall that appears to be a bruise. Pt reported itching to the area and scratched self internally. Thick white discharge also noted to vaginal area. Order: Ok for diflucan 150 mg po x 1 dose now. documented in this encounter Plan of Treatment Not on file documented as of this encounter Visit Diagnoses Not on filedocumented in this encounter Care Teams Industrial Controller Relationship Specialty Start Date End Date Jayesh Lara DO PCP - General INTERNAL MEDICINE 02/24/20 12/12/20 Yolanda Dorsey NP Nurse Practitioner Nurse Practitioner Family 02/24/20 01/23/21 documented as of this encounter
--- OUTSIDE RECORDS SUMMARY | 2024-09-21 01:16 | XMS_ITS | Encounter Summary ---
Author Organization [facility] Address [facility] [facility] [place] [address] [place] [address] Care Team Providers Care Cellular Biologist Name Role Phone Yolanda Dorsey INSIDE SALES REPRESENTATIVE Unavailable Jayesh Lara DO Primary Care Provider [phone] Encounter Details Date Type Department Care Team (Late st Contact Info) Description 07/16/2020 Orders Only [facility] [address] [facility] [address] [place] [id number] Savanah Mehta LPN Social History Tobacco Use [...] without long-term current use of insulin (CMS/HCC HHS/[facility]) documented in this encounter Care Teams Cellular Biologist Relationship Specialty Start Date End Date Jayesh Lara DO PCP - General INTERNAL MEDICINE 02/24/20 12/12/20 Yolanda Dorsey NP Nurse Practitioner Nurse Practitioner Family 02/24/20 01/23/21 documented as of this encounter
--- OUTSIDE RECORDS SUMMARY | 2024-09-21 01:16 | XMS_ITS | Encounter Summary ---
Author Organization [facility] Address [facility] [facility] [place] [address] [place] [address] Care Team Providers Care House Nurse Name Role Phone Yolanda Dorsey BOOTH CASHIER Unavailable Jayesh Lara DO Primary Care Provider [phone] Encounter Details Date Type Department Care Team (Late st Contact Info) Description 08/07/2020 Orders Only [facility] [address] [facility] [address] [place], [place] [address] Savanah Mehta LPN Social History Tobacco Use [...] COVID-19? Unable to assess 07/29/2020 8:12 PM RENTAL CLERK TOOL AND EQUIPMENT documented as of this encounter Functional Status * RETIRED Are you deaf or do you have serious difficulty hearing Answer Date of Assessment Author Status No 07/29/2020 8:15 PM RENTAL CLERK TOOL AND EQUIPMENT Activ e * RETIRED Are you blind or do you have serious difficulty seeing, even when wearing glasses? Answer Date of Assessment Author Status No 07/29/2020 8:15 PM RENTAL CLERK TOOL AND EQUIPMENT Activ e * Do you have serious difficulty walking or climbing stairs? Answer Date of Assessment Author Status Yes 07/29/2020 8:15 PM RENTAL CLERK TOOL AND EQUIPMENT Nirali Lyons R N Active * Do you have difficulty dressing or bathing? Answer Date of Assessment Author Status Yes 07/29/2020 8:15 PM RENTAL CLERK TOOL AND EQUIPMENT Nirali Lyons R N Active * Because of a physical, mental, or emotional condition, do you have difficulty doing errands alone such as visiting a doctor's office or shopping? Answer Date of Assessment Author Status Yes 07/29/2020 8:15 PM RENTAL CLERK TOOL AND EQUIPMENT Nirali Lyons R N Active documented as of this encounter Mental Status * Because of a physical, mental, or emotional condition, do you have serious difficulty concentrating, remembering, or making decisions? Answer Entry Date Author Status Yes 07/29/2020 8:15 PM RENTAL CLERK TOOL AND EQUIPMENT Nirali Lyons R N Active documented in [...] without long-term current use of insulin ([facility]/HCC [facility]) documented in this encounter Care Teams House Nurse Relationship Specialty Start Date End Date Jayesh Lara DO PCP - General INTERNAL MEDICINE 02/24/20 12/12/20 Yolanda Dorsey NP Nurse Practitioner Nurse Practitioner Family 02/24/20 01/23/21 documented as of this encounter
--- OUTSIDE RECORDS SUMMARY | 2024-09-21 01:16 | XMS_ITS | Encounter Summary ---
Author Organization [facility] Address Formerly [facility], [facility] [place] [address] [place] [address] Care Team Providers Care Sole Leveler Name Role Phone Yolanda Dorsey SLOT SHIFT SUPERVISOR Unavailable Jayesh Lara DO Primary Care Provider [phone] Reason for Visit * Reason Comments [facility] skilled follow-up Encounter Details Date Type Department Care Team (Late st Contact Info) Description 08/07/2020 8:40 AM DIGITAL ENGINEER Telemedicine [facility] [address] [address] Yolanda Dorsey NP [address] [address] [facility] (skilled follow-up) Social History Tobacco Use [...] COVID-19? Unable to assess 07/29/2020 8:12 PM DIGITAL ENGINEER documented as of this encounter Last Filed Vital Signs Vital Sign Reading Time Taken Comments Blood Pressure 118/60 08/07/2020 1:47 PM DIGITAL ENGINEER Pulse 68 08/07/2020 1:47 PM DIGITAL ENGINEER Temperature 36.5 ??C (97.7 ??F) 08/07/2020 1:47 PM CS T Respiratory Rate 20 08/07/2020 1:47 PM DIGITAL ENGINEER Oxygen Saturation 91% 08/07/2020 1:47 PM DIGITAL ENGINEER Inhaled Oxygen Concentration - - Weight - - Height - - Body Mass Index - - documented in this encounter Functional Status * RETIRED Are you deaf or do you have serious difficulty hearing Answer Date of Assessment Author Status No 07/29/2020 8:15 PM DIGITAL ENGINEER Activ e * RETIRED Are you blind or do you have serious difficulty seeing, even when wearing glasses? Answer Date of Assessment Author Status No 07/29/2020 8:15 PM DIGITAL ENGINEER Activ e * Do you have serious difficulty walking or climbing stairs? Answer Date of Assessment Author Status Yes 07/29/2020 8:15 PM DIGITAL ENGINEER Nirali Lyons R N Active * Do you have difficulty dressing or bathing? Answer Date of Assessment Author Status Yes 07/29/2020 8:15 PM DIGITAL ENGINEER Nirali Lyons R N Active * Because of a physical, mental, or emotional condition, do you have difficulty doing errands alone such as visiting a doctor's office or shopping? Answer Date of Assessment Author Status Yes 07/29/2020 8:15 PM DIGITAL ENGINEER Nirali Lyons R N Active documented as of this encounter Mental Status * Because of a physical, mental, or emotional condition, do you have serious difficulty concentrating, remembering, or making decisions? Answer Entry Date Author Status Yes 07/29/2020 8:15 PM DIGITAL ENGINEER Nirali Lyons R N Active documented in this encounter Progress Notes * Yolanda Pryor NP - 08/07/2020 8:40 AM CST Images from the original note were not included. Reason for Visit: [facility] (skilled follow-up) History of Present Illness: I introduced and identified myself, received verbal consent?? from the patient to proceed with thisvideo visit and made the patient aware that the same confidentiality and vp information technology practices apply. The patient joined the video visit from [facility]. I [place] the [place]. The following clinical staff helped with this visit Nurse: Melanie. Total Time Spent in Minutes: 22 Emelina Santoyo is an 80-year-old female who was seen today for a senior living home visit. She was recently discharged after hospitalization for AMS likely related to dehydration, UTI and hypernatremia. Patient is alert and oriented to self per her baseline now. She is able to make needs known. Sheis able to respond to questions and follow commands. Staff reports she has still been fatigued since her return. She is working with PT/OT for strengthening and conditioning. She has no complaints ofpain at this time or any other concerns. Staff reports an area above her buttocks that appears to be an opened blister from her depends rubbing. Staff advised to monitor and continue wound care. AMS: Back to A&O x 1 which is patient baseline. Dehydration: Resolved with IVF in hospital. Hypernatremia: Last BMP 08/01/20 reveals sodium level of 146. Monitor sodium level. UTI: Finished PO antibiotic regimen on 07/31/20. Resolved. Encourage PO fluids. Alzheimer's: No behaviors. Stable. On namenda and donepezil. ROS: Review of Systems Constitutional: Negative for chills and fever. Respiratory: Negative [...] mL into the muscle monthly. Give on , Disp: , Rfl: ??? donepezil 10 [...] Supply, Disp: 15 tablet, Rfl: 0 ??? lisinopril 10 MG tablet, Take 1 [...] by mouth daily., Disp: , Rfl: ??? xbjyndzq-rnyhgurqwe-ynygesmkl [id number] Ointment, Apply topically every other day., [...] Disp: , Rfl: ??? vitamin D2, ergocalciferol, 85329 UNITS capsule, Take 2 capsules by mouth once a week. Thursday, Disp: , Rfl: ??? LYRICA 150 MG capsule, Take 1 capsule (150 mg total) by mouth 2 (two) times a day., Disp: 60 capsule, Rfl: 0 Allergies Allergen Reactions ??? Metronidazole Unknown Past Medical History: Diagnosis Date ??? Cholecystitis, unspecified 02/09/2019 ??? Chronic indwelling Zhang catheter Filed Vitals: 08/07/20 1347 BP: 118/60 Pulse: 68 Resp: 20 Temp: 97.7 ??F (36.5 ??C) SpO2: 91% Physical Exam Constitutional: She appears well-developed and well-nourished. Pulmonary/Chest: Effort normal. Neurological: She is alert. She is disoriented. Coordination and gait (wheelchair) abnormal. Psychiatric: She has a normal mood and affect. Her speech is delayed. She is slowed and withdrawn. Cognition and memory are impaired. She expresses inappropriate judgment. She exhibits abnormal recent memory. She is inattentive. Diagnoses/Impression: 1. Encephalopathy acute -Resolved. 2. Hypernatremia - Draw CMP. 3. Acute cystitis without hematuria - Resolved. - Draw CBC. 4. Late onset Alzheimer's disease without behavioral disturbance (CMS/[facility]) Recommendations and Plan: Changes made as described above. Staff to continue to monitor and report any changes. Follow up in one week unless necessary sooner. Yolanda Pryor NP TAL ENGINEER documented in this encounter Plan of Treatment Not on file documented as of this encounter Goals Goal Patient Goal Type Associated Problems Recent Progress Patient-Stated? Author Establish Plan for Regular Lab Work General No Marlys Sam RN documented as of this encounter Visit Diagnoses Diagnosis Encephalopathy acute- Primary Encephalopathy, unspecified Hypernatremia Hyperosmolality and/or hypernatremia Acute cystitis without hematuria Acute cystitis Late onset Alzheimer's disease without behavioral disturbance ([facility]) documented in this encounter Care Teams Sole Leveler Relationship Specialty Start Date End Date Jayesh Lara DO PCP - General INTERNAL MEDICINE 02/24/20 12/12/20 Yolanda Dorsey NP Nurse Practitioner Nurse Practitioner Family 02/24/20 01/23/21 documented as of this encounter
--- OUTSIDE RECORDS SUMMARY | 2024-09-21 01:16 | XMS_ITS | Encounter Summary ---
Author Organization [facility] Address [address] [facility] [place] [address] [place] [address] Care Team Providers Care Doughmaker Name Role Phone Yolanda Dorsey ENDBAND SIZER Unavailable Jayesh Lara DO Primary Care Provider [phone] Encounter Details Date Type Department Care Team (Latest Contact Info) Description 05/25/2020 Scan HEALTH INFO SRVCS Scanned, Documents Social [...] on filedocumented in this encounter Care Teams Doughmaker Relationship Specialty Start Date End Date Jayesh Lara DO PCP - General INTERNAL MEDICINE 02/24/20 12/12/20 Yolanda Dorsey NP Nurse Practitioner Nurse Practitioner Family 02/24/20 01/23/21 documented as of this encounter
--- OUTSIDE RECORDS SUMMARY | 2024-09-21 01:16 | XMS_ITS | Encounter Summary ---
Author Organization [facility] Address [address] [facility] [place] [address] [place] [address] Care Team Providers Care Pararescue Craftsman Name Role Phone Sunita Yolanda MANAGER ESTATE Unavailable Jayesh Lara DO Primary Care Provider [phone] Reason for Visit * Reason Comments [facility] routine Encounter Details Date Type Department Care Team (Late st Contact Info) Description 04/20/2020 10:20 AM CDT Telemedicine [facility] [address] [facility] [address] [place] [address] Jayesh Lara DO [address] [id number] Prison (routine) Social History Tobacco Use Types Packs/Day Years Used Date Smoking Tobacco: Unknown Comments Unknown Sex and Gender Information Value Date Recorded Sex Assigned at Not on file Legal Sex Female 10:25 PM CDT Gender Identity Not on file Sexual Orientation Not on file documented as of this encounter Last Filed Vital Signs Vital Sign Reading Time Taken Comments Blood Pressure 112/80 04/20/2020 10:06 AM CDT Pulse 80 04/20/2020 10:06 AM CDT Temperature 36.3 ??C (97.4 ??F) 04/20/2020 10:06 AM C DT Respiratory Rate 18 04/20/2020 10:06 AM CDT Oxygen Saturation - - Inhaled Oxygen Concentration - - Weight - - Height - - Body Mass Index - - documented in this encounter Progress Notes * Jayesh Lara DO - 04/20/2020 10:20 AM CDT Skilled/USP note I introduced and identified myself, received verbal consent from the patient to proceed with this video visit and made the patient aware that the same confidentiality and vp information technology practices apply. The patient joined the video visit from the [facility]. I completed the virtual visit from home office. The following clinical staff helped with this visit nursing staff at the home. TotalTime Spent in Minutes: *20 seeing pt and reviewing labs and records and talking to staff Emelina Santoyo 79-year-old 1940 [facility] [id number] female ? CC:* hypertension diabetes dementia essential hypertension. No hypotension on Norvasc type 2 diabetes. Haw-qkvjxei-usjdtmvco. No hypoglycemia reported Dementia. No behaviors reported. Donepezil ASSESSMENT AND PLAN: essential hypertension. Controlled. Norvasc type 2 diabetes. Pzo-prhuakw-ovteqsriu. Stable Dementia. Stable. Donepezil ? -Social-pt has no questions /family has no questions according to nursing staff Old records requested and reviewed as above from [facility] and [facility] records Past Medical History: Diagnosis Date ??? [...] Take 2 mg by mouth daily. ??? HYDROCORTISONE 1 % ointment APPLY TO AFFECTED AREAS ON BUTTOCKS 2 TIMES A DAY UNTIL HEALED 28 g1 ??? lisinopril 10 MG tablet Take 1 [...] by mouth 2 (two) times daily. ??? miconazole (ANTIFUNGAL) 2 % cream Apply topically as needed. ??? miconazole (ANTIFUNGAL) 2 % powder Apply topically as needed for Itching. ??? Multiple Vitamin (THERA-MILL) Tab Take 1 [...] (two) times daily. ??? vitamin D2, ergocalciferol, 72580 UNITS capsule Take 2 capsules by mouth once a week. No current facility-administered medications on file prior to visit. ROS: Unable dementia EXAM: Vitals below GENERAL: appeared to be in no acute distress. EYES: No discharge EARS, NOSE, THROAT: Moist mucous membranes. Respiratory: no distress Cardiovascular: perfusion good to extremities Gastrointestinal: Obese abdomen. No grimace to palpation GENITOURINARY: No appreciable suprapubic tenderness. MUSCULOSKELETAL: No ankle swelling. * NEUROLOGIC: follows commands HEM/ONC: No apparent bleed. PSYCHIATRIC: Calm. Mood appropriate, alert and oriented x2 vitals Filed Vitals: 04/20/20 1006 BP: 112/80 Pulse: 80 Resp: 18 Temp: 97.4 ??F (36.3 ??C) ? ? ? Lab Results Lab Results Component Value Date/Time WBC 6.3 03/02/2020 10:25 AM HGB 15.7 (H) 03/02/2020 10:25 AM documented in this encounter Plan of Treatment Not on file documented as of this encounter Visit Diagnoses Diagnosis Essential hypertension- Primary Unspecified essential hypertension documented in this encounter Care Teams Pararescue Craftsman Relationship Specialty Start Date End Date Jayesh Lara DO PCP - General INTERNAL MEDICINE 02/24/20 12/12/20 Yolanda Dorsey NP Nurse Practitioner Nurse Practitioner Family 02/24/20 01/23/21 documented as of this encounter
--- OUTSIDE RECORDS SUMMARY | 2024-09-21 01:16 | XMS_ITS | Encounter Summary ---
Author Organization [facility] Address [address] [place] [address] [place] [address] Care Team Providers Care Stock And Station Agent Name Role Phone Yolanda Dorsey PIPE INSULATOR HELPER Unavailable Jayesh Lara DO Primary Care Provider [phone] Encounter Details Date Type Department Care Team (Latest Contact Info) Description 08/08/2020 4:21 PM LINK TRAINER MECHANIC - 08/08/2020 11:59 PM LINK TRAINER MECHANIC Hospital Encounter [facility] [address] [place], [place] [id number] Yolanda Dorsey, SHANKAR [address] [address] Discharge Disposition: Home or Self [...] to assess 07/29/2020 8:12 PM LINK TRAINER MECHANIC documented as of this encounter Functional Status * RETIRED Are you deaf or do you have serious difficulty hearing Answer Date of Assessment Author Status No 07/29/2020 8:15 PM LINK TRAINER MECHANIC Activ e * RETIRED Are you blind or do you have serious difficulty seeing, even when wearing glasses? Answer Date of Assessment Author Status No 07/29/2020 8:15 PM LINK TRAINER MECHANIC Activ e * Do you have [...] polyneuropathy, without long-term current use of insulin ([facility]) Take 1 capsule (150 mg [...] (two) times daily. 2 vitamin D2, ergocalciferol, 41117 UNITS capsule Take 2 capsules by mouth once a week. Thursday12/29/2017 0 documented as of this encounter Plan of Treatment Not on file documented as of this encounter Goals Goal Patient Goal Type Associated Problems Recent Progress Patient-Stated? Author Establish Plan for Regular Lab Work General No Marlys Sam RN documented as of this encounter Procedures Procedure Name Priority Date/Time Associated Diagnosis Comments COMPREHENSIVE METABOLIC PANEL Routine 08/08/2020 2:40 PM LINK TRAINER MECHANIC Abnormal blood chemistry CBC W/DIFF AUTOMATED Routine 08/08/2020 2:40 PM LINK TRAINER MECHANIC Abnormal blood chemistry documented in this encounter Results * (ABNORMAL) COMPREHENSIVE METABOLIC PANEL (08/08/2020 2:40 PM LINK TRAINER MECHANIC) GLUCOSE 508(HH) 70 - 99 MG/DL 08/08/2020 5:13 PM [facility] Comment:CD CALLED CRITICAL R ESULTS AT [id number] TO AND READ BACK BY JAH ANTONIO BUN 29(H) 7 - 18 MG/DL 08/08/2020 5:13 PM [facility] CREATININE S/P/B 1.27(H) 0.55 - 1.02 MG/DL 08/08/2020 5:13 PM [facility] SODIUM S/P/B 142 136 - 145 MMOL/L 08/08/2020 5:13 PM [facility] POTASSIUM S/P/B 4.6 3.5 - 5.1 MMOL/L 08/08/2020 5:13 PM [facility] CHLORIDE S/P/B 104 100 - 108 MMOL/L 08/08/2020 5:13 PM [facility] CO2 21.8 21 - 32 MMOL/L 08/08/2020 5:13 PM [facility] CALCIUM S/P/B 8.8 8.5 - 10.1 MG/DL 08/08/2020 5:13 PM [facility] BILIRUBIN TOTAL S/P/B 0.8 0.2 - 1.2 MG/DL 08/08/2020 5:13 PM [facility] TOTAL PROTEIN S/P/B 6.1(L) 6.4 - 8.2 G/DL 08/08/2020 5:13 PM [facility] ALBUMIN S/P/B 3.3(L) 3.4 - 5.0 G/DL 08/08/2020 5:13 PM [facility] AST 151(H) 15 - 37 U/L 08/08/2020 5:13 PM [facility] ALT 166(H) 14 - 55 U/L 08/08/2020 5:13 PM [facility] ALKALINE PHOSPHATASE S/P/B 169(H) 50 - 136 U/L 08/08/2020 5:13 PM [facility] ANION GAP 16.2(H) 5 - 15 MMOL/L 08/08/2020 5:13 PM [facility] BUN CREATININE RATIO 22.8 6 - 26 08/08/2020 5:13 PM [facility] A/G RATIO 1.2 1.0 - 2.0 RATIO 08/08/2020 5:13 PM [facility] EGFR NON-AFR. AMER. 40(L) >90 ML/MIN/1.7 3 M2 08/08/2020 5:13 PM [facility] EGFR AFR. AMER. 47(L) >90 ML/MIN/1.7 3 M2 08/08/2020 5:13 PM [facility] Comment: NOTE: eGFR is not calculated for patients <18 years of age. This is an estimated GFR (CKD EPI) and should not be used for calculating drug doses. 08/08/2020 2:40 PM LINK TRAINER MECHANIC Yolanda Dorsey PIPE INSULATOR HELPER LABORATORY Final Result [facility] [address] [place] [address], * (ABNORMAL) CBC W/DIFF AUTOMATED (08/08/2020 2:40 PM LINK TRAINER MECHANIC) WBC 5.1 4.4 - 11.0 x10'3/uL 08/08/2020 4:51 PM [facility] RBC 4.91 4.50 - 5.10 x10'6/uL 08/08/2020 4:51 PM [facility] HGB 14.9 12.3 - 15.3 G/DL 08/08/2020 4:51 PM [facility] HCT 45.7(H) 35.9 - 44.6 % 08/08/2020 4:51 PM [facility] MCV 93.1 80.0 - 96.0 FL 08/08/2020 4:51 PM [facility] MCH 30.3 25.3 - 30.9 PG 08/08/2020 4:51 PM [facility] MCHC 32.6 31.0 - 34.1 G/DL 08/08/2020 4:51 PM [facility] RDW 15.5(H) 12.4 - 15.1 % 08/08/2020 4:51 PM [facility] PLT 163 151 - 353 x10'3/uL 08/08/2020 4:51 PM [facility] MPV 12.0 9.6 - 12.0 FL 08/08/2020 4:51 PM [facility] RBC MORPHOLOGY NORMAL 08/08/2020 4:51 PM [facility] PLT MORPH. NORMAL 08/08/2020 4:51 PM [facility] WBC MORPHOLOGY NORMAL 08/08/2020 4:51 PM [facility] LYMPHOCYTES % 14.8(L) 15.8 - 45.0 % 08/08/2020 4:51 PM [facility] NEUTROPHILS % 80.1(H) 42.1 - 71.9 % 08/08/2020 4:51 PM [facility] MONOCYTES % 4.5(L) 5.7 - 12.5 % 08/08/2020 4:51 PM [facility] EOSINOPHILS 0.2 0.0 - 5.6 % 08/08/2020 4:51 PM [facility] BASOPHILS 0.2 0.0 - 1.3 % 08/08/2020 4:51 PM [facility] ABS. NEUTROPHILS TOTAL 4.11 1.40 - 6.00 x10'3/uL 08/08/2020 4:51 PM [facility] IMMATURE GRANS % 0.2 0.0 - 0.5 % 08/08/2020 4:51 PM [facility] ABS. LYMPHOCYTES 0.76(L) 0.80 - 4.70 x10'3/uL 08/08/2020 4:51 PM [facility] 08/08/2020 2:40 PM LINK TRAINER MECHANIC us Yolanda Dorsey NP LABORATORY Final Result [facility] [address] [place] [address], [place] [phone] documented in this encounter Visit Diagnoses Diagnosis Abnormal blood chemistry Other abnormal blood chemistry documented in this encounter Care Teams Stock And Station Agent Relationship Specialty Start Date End Date Jayesh Lara DO PCP - General INTERNAL MEDICINE 02/24/20 12/12/20 Yolanda Drosey NP Nurse Practitioner Nurse Practitioner Family 02/24/20 01/23/21 documented as of this encounter
--- OUTSIDE RECORDS SUMMARY | 2024-09-21 01:16 | XMS_ITS | Encounter Summary ---
Author Organization [facility] Address [facility] [facility] [place] [address] [place] [address] Care Team Providers Care Auto Winder Name Role Phone Yolanda Dorsey PLANT PROTECTION SUPERVISOR Unavailable Jayesh Lara DO Primary Care Provider [phone] Encounter Details Date Type Department Care Team (Late st Contact Info) Description 06/27/2020 Chart Prep [facility] [address] [facility] [address] [place] [address] Yolanda Dorsey NP [address] [address] Social History Tobacco Use Types Packs/Day Years [...] on filedocumented in this encounter Care Teams Auto Winder Relationship Specialty Start Date End Date Jayesh Lara DO PCP - General INTERNAL MEDICINE 02/24/20 12/12/20 Yolanda Dorsey NP Nurse Practitioner Nurse Practitioner Family 02/24/20 01/23/21 documented as of this encounter
--- OUTSIDE RECORDS SUMMARY | 2024-09-21 01:16 | XMS_ITS | Encounter Summary ---
Author Organization [facility] Address [address] [facility] [place] [address] [place] [address] Care Team Providers Care Sales Promotion Director Name Role Phone Yolanda Dorsey ORNITHOLOGY TEACHER Unavailable Jayesh Lara DO Primary Care Provider [phone] Encounter Details Date Type Department Care Team (Latest Contact Info) Description 06/07/2020 2:51 PM CDT - 06/07/2020 11:59 PM CDT Hospital Encounter [facility] [address] [place], [place] [id number] Yolanda Dorsey NP [address] [address] Discharge Disposition: Home or Self Care (Routine Discharge) Social History Tobacco Use Types Packs/Day Years Used Date Smoking Tobacco: Unknown Comments Unknown Sex and Gender Information Value Date Recorded Sex Assigned at Not on file Legal Sex Female 10:25 PM CDT Gender Identity Not on file Sexual Orientation Not on file documented as of this encounter Medications at Time of Discharge acetaminophen 325 MG tablet Take 650 mg by mouth every 4 (four) hours as needed for Pain or Fever. 04/04/2019 2 amlodipine 10 MG tablet Take 1 tablet by mouth daily. 07/30/2015 2 aspirin 81 MG chewable tablet Chew 1 tablet by mouth daily. 12/29/2017 2 atorvastatin 40 MG tablet Take 80 mg by mouth daily. 04/01/2019 1 Cranberry 250 MG Tab Take 1 tablet by mouth 2 (two) times a day. 0 cyanocobalamin 1000 MCG/ML injection Inject 1 mL into the muscle monthly. Give on 2 dextromethorphan-g uaifenesin 10-100 MG/5ML liquid Take 5 mLs by mouth every 4 (four) hours as needed. 0 donepezil 10 MG Tab Take 10 mg by mouth daily. 2 glimepiride 1 MG tablet Take 2 mg by mouth daily. 04/19/2018 0 lisinopril 10 MG tabletIndications: Essential hypertension Take [...] polyneuropathy, without long-term current use of insulin ([facility] HHS/HCC) Take 1 capsule (150 mg total) by mouth 2 (two) times a day. 60 capsule 05/15/2020 0 magnesium gluconate (MAGONATE) tablet Take 27 [...] 1 tablet by mouth daily. 10/06/2017 2 polyethylene glycol powder Take 17 g by [...] (two) times daily. 2 vitamin D2, ergocalciferol, 01451 UNITS capsule Take 2 capsules by mouth once a week. Thursday12/29/2017 0 documented as of this encounter Plan of Treatment Not on file documented as of this encounter Procedures Procedure Name Priority Date/Time Associated Diagnosis Comments HEMOGLOBIN, GLYCOSYLATED Routine 06/07/2020 1:50 PM CDT Diabetic neuropathy with neurologic complication ([facility]) documented in this encounter Results * (ABNORMAL) HEMOGLOBIN, GLYCOSYLATED (06/07/2020 1:50 PM CDT) HGB A1C 8.7(H) <5.7 % 06/07/2020 3:27 PM CDT [facility] Comment: INCREASED RISK OF DIABETES <5.7% ?NON-DIABETES 5.7-6.4% INCREASED RISK FOR FUTURE DIABETES > OR = 6.5 CONSISTENT WITH DIABETES STANDARDS OF MEDICAL CARE IN DIABETES-2010 DIABETES CARE, 33(SUPP 1): S1-S61,2010 06/07/2020 1:50 PM CDT us Yolanda Dorsey NP LABORATORY Final Result [facility] [address] [place] [address], documented in this encounter Visit Diagnoses Diagnosis Diabetic neuropathy with neurologic complication ([facility] HHS/HCC) Type II or unspecified type diabetes mellitus with neurological manifestations, not stated as uncontrolled documented in this encounter Care Teams Sales Promotion Director Relationship Specialty Start Date End Date Jayesh Lara DO PCP - General INTERNAL MEDICINE 02/24/20 12/12/20 Yolanda Dorsey NP Nurse Practitioner Nurse Practitioner Family 02/24/20 01/23/21 documented as of this encounter
--- OUTSIDE RECORDS SUMMARY | 2024-09-21 01:16 | XMS_ITS | Encounter Summary ---
Author Organization [facility] Address [facility] [facility] [place] [address] [place] [address] Care Team Providers Care Trials Manager Name Role Phone Yolanda Dorsey PHYSICIAN [facility] Unavailable Jayesh Lara DO Primary Care Provider [phone] Encounter Details Date Type Department Care Team (Latest Contact Info) Description 07/23/2020 Scan HEALTH INFO SRVCS Scanned, Documents Social [...] COVID-19? Unable to assess 07/29/2020 8:12 PM CLIENT SERVER DEVELOPER documented as of this encounter Functional Status documented as of this encounter Mental Status * Question Answer Entry Date Author Status Because of a physical, mental, or emotional condition, do you have serious difficulty concentrating, remembering, or making decisions? Yes 07/29/2020 8:15 PM CLIENT SERVER DEVELOPER Nirali Lyons RN Active documented in this encounter Plan of Treatment Not on file documented as of this encounter Goals Goal Patient Goal Type Associated Problems Recent Progress Patient-Stated? Author Establish Plan for Regular Lab Work General No Marlys Sam RN documented as of this encounter Visit Diagnoses Not on filedocumented in this encounter Additional Health Concerns Infection Onset Date Last Indicated Resolved Time COVID-19 Rule Out 07/30/2020 07/30/2020 07/31/2020 10:35 PM CLIENT SERVER DEVELOPER documented as of this encounter Care Teams Trials Manager Relationship Specialty Start Date End Date Jayesh Lara DO PCP - General INTERNAL MEDICINE 02/24/20 12/12/20 Yolanda Dorsey NP Nurse Practitioner Nurse Practitioner Family 02/24/20 01/23/21 documented as of this encounter
--- OUTSIDE RECORDS SUMMARY | 2024-09-21 01:16 | XMS_ITS | Encounter Summary ---
Author Organization [facility] Address [address] [place] [address] [place] [address] Care Team Providers Care Buffer Nickel Name Role Phone Yolanda Dorsey COLLAR SEWER Unavailable Jayesh Lara DO Primary Care Provider Reason for Visit * Reason Comments [facility] routine Encounter Details Date Type Department Care Team (Late st Contact Info) Description 06/28/2020 8:00 AM CDT Telemedicine [facility] [address] [address] Yolanda Dorsey NP [address] [id number] [facility] (routine) Social History Tobacco Use Types Packs/Day Years Used Date Smoking Tobacco: Unknown Comments Unknown Sex and Gender Information Value Date Recorded Sex Assigned at Not on file Legal Sex Female 10:25 PM CDT Gender Identity Not on file Sexual Orientation Not on file documented as of this encounter Last Filed Vital Signs Vital Sign Reading Time Taken Comments Blood Pressure 102/68 06/28/2020 8:20 AM CDT Pulse 70 06/28/2020 8:20 AM CDT Temperature 36.4 ??C (97.5 ??F) 06/28/2020 8:20 AM CD T Respiratory Rate 16 06/28/2020 8:20 AM CDT Oxygen Saturation 90% 06/28/2020 8:20 AM CDT Inhaled Oxygen Concentration - - Weight - - Height - - Body Mass Index - - documented in this encounter Progress Notes * Yolanda Pryor NP - 06/28/2020 8:00 AM CDT Images from the original note were not included. Reason for Visit: [facility] (routine) History of Present Illness: I introduced and identified myself, received verbal consent?? from the patient to proceed with thisvideo visit and made the patient aware that the same confidentiality and information technology professor practices apply. The patient joined the video visit from [facility]. [place] The following clinical staff helped with this visit Nurse: Tatyana. Total Time Spent in Minutes: 19 Emelina Santoyo is an 80-year-old female who was seen today for a routine prison visit. She has multiple chronic medical issues that were reviewed. Patient is alert and oriented to self at baseline. She is able to make needs known. She is able to respond to questions and follow commands. Patientwas taking a nap prior to visit. Reports she likes taking naps. She has no complaints of pain at this time or any other concerns. Staff has no acute concerns at this time. Alzheimer's: No behaviors. Stable. On namenda and donepezil. Type 2 diabetes: Follow A1C. Last done 06/07/20 - 8.7%. On glipizide and lyrica. MS: No complaints. Wheelchair bound. Daily prednisone. Hypertension: BP stable. CMP 03/02/20 reveals BUN 12, Cr 1.1, GFR 48. On amlodipine, lisinopril and metoprolol. Vitamin D deficiency: Follow vitamin D level. Last done 03/02/20- WNL. On vitamin D supplements. Hyperlipidemia: Follow lipid panel. Last done 03/02/20 - triglycerides 735. Atorvastatin increased and repeat ordered in 3 months. ROS: Review of Systems Constitutional: Negative for [...] MG tablet, Take 80 mg by mouth nightly at bedtime. , Disp: , Rfl: ??? cranberry 450 MG Tab tablet, Take 450 mg by mouth daily., Disp: , Rfl: ??? cyanocobalamin 1000 MCG/ML injection, Inject 1 mL into the muscle monthly. , Disp: , Rfl: ??? dextromethorphan-guaifenesin 10-100 MG/5ML liquid, Take 5 mLs by mouth every 4 (four) hours as needed., Disp: , Rfl: ??? donepezil 10 MG Tab, Take 10 mg by mouth 2 (two) times daily., Disp: , Rfl: ??? glimepiride 1 MG tablet, Take 3 mg by mouth every morning before breakfast., Disp: , Rfl: ??? lisinopril 10 MG tablet, Take 1 tablet (10 mg total) by mouth daily., Disp: 30 tablet, Rfl: 0 ??? loperamide 2 MG capsule, Take 2 mg by mouth 4 (four) times daily as needed for Diarrhea., Disp:, Rfl: ??? loratadine 10 MG tablet, Take [...] 2 % cream, Apply topically daily as needed., Disp: , Rfl: ??? Multiple Vitamin (THERA-MILL) Tab, Take 1 tablet by mouth daily., Disp: , Rfl: ??? polyethylene glycol powder, Take 17 g by mouth daily as needed. Dissolve powder in 240 mL water, Disp: , Rfl: ??? polyvinyl alcohol 1.4 % ophthalmic solution, Apply 1 drop to eye 3 (three) times daily., Disp: , Rfl: ??? potassium chloride CR 10 MEQ tablet, Take 2 tablets by mouth daily., Disp: , Rfl: ??? predniSONE 5 mg tablet, Take 5 mg by mouth daily., Disp: , Rfl: ??? saccharomyces boulardii (FLORASTOR) 250 MG capsule, Take 1 capsule by mouth 2 (two) times daily., Disp: , Rfl: ??? vitamin D2, ergocalciferol, 17532 UNITS capsule, Take 2 capsules by mouth once a week. , Disp: , Rfl: Allergies Allergen Reactions ??? Metronidazole Unknown Past Medical History: Diagnosis Date ??? Cholecystitis, unspecified 02/09/2019 ??? Chronic indwelling Zhang catheter Filed Vitals: 06/28/20 0820 BP: 102/68 Pulse: 70 Resp: 16 Temp: 97.5 ??F (36.4 ??C) SpO2: 90% Physical Exam Constitutional: She appears well-developed and [...] onset Alzheimer's disease without behavioral disturbance (CMS/HCC) 2. Type 2 diabetes mellitus with diabetic polyneuropathy, without long-term current use of insulin (CMS/HCC) 3. Essential hypertension 4. Hyperlipidemia, unspecified hyperlipidemia type Recommendations and Plan: Continue current treatment plan. Staff to continue to monitor and report any changes. Follow up in one month unless necessary sooner. Yolanda Pryor NP documented in this encounter Plan of Treatment Not on file documented as of this encounter Visit Diagnoses Diagnosis Late onset Alzheimer's disease without behavioral disturbance ([facility])- Primary Type 2 diabetes mellitus with diabetic polyneuropathy, without long-term current use of insulin ([facility]) Essential hypertension Unspecified essential hypertension Hyperlipidemia, unspecified hyperlipidemia type documented in this encounter Care Teams Buffer Nickel Relationship Specialty Start Date End Date Jayesh Lara DO PCP - General INTERNAL MEDICINE 02/24/20 12/12/20 Yolanda Dorsey NP Nurse Practitioner Nurse Practitioner Family 02/24/20 01/23/21 documented as of this encounter
--- OUTSIDE RECORDS SUMMARY | 2024-09-21 01:16 | XMS_ITS | Encounter Summary ---
Author Organization [facility] Address [facility] [place] [address] [place] [address] Care Team Providers Care Patient Safety Manager Name Role Phone Yolanda Dorsey [employer] FUSER Unavailable Jayesh Lara DO Primary Care Provider [phone] Reason for Visit * Reason Comments Hyperglycemia Encounter Details Date Type Department Care Team (Late st Contact Info) Description 07/24/2020 7:52 PM CDT - 07/24/2020 9:42 PM CDT Emergency [facility] Emergency Room [address] [place] [address] Warren Lee MD [address] [place] [id number] Hyperglycemia Discharge Disposition: Half-Way Facility Social History Tobacco Use Types Packs/Day Years [...] Sign Reading Time Taken Comments Blood Pressure 148/67 07/24/2020 8:30 PM CDT Pulse 73 07/24/2020 8:30 PM CDT Temperature 36 ??C (96.8 ??F) 07/24/2020 7:56 PM CDT Respiratory Rate 23 07/24/2020 8:30 PM CDT Oxygen Saturation 92% 07/24/2020 8:30 PM CDT Inhaled Oxygen Concentration - - Weight 70.3 kg (155 lb) 07/24/2020 7:56 PM CDT Height 167.6 cm (5' 6 ) 07/24/2020 7:56 PM CDT Body Mass Index 25.02 07/24/2020 7:56 PM CDT documented in this encounter Discharge Instructions * Attachments The following attachments cannot be sent through Care Everywhere. * Urinary Tract Infection Discharge Instructions, Adult (Icelandic) documented in this encounter Medications at Time of Discharge cranberry 450 MG Tab tablet Take 450 mg by mouth daily. acetaminophen (TYLENOL) 325 MG tablet Take 2 tablets (650 mg total) by mouth every 6 (six) hours as needed for Pain. 30 tablet 07/24/2020 0 acetaminophen 325 MG tablet Take 650 mg by mouth every 4 (four) hours as needed for Pain or Fever. 04/04/2019 2 amlodipine 10 MG tablet Take 1 tablet by mouth daily. 07/30/2015 2 aspirin 81 MG chewable tablet Chew 1 tablet by mouth daily. 12/29/2017 2 atorvastatin 40 MG tablet Take 80 mg by mouth daily. 04/01/2019 1 cephALEXin (KEFLEX) 250 MG capsule Take 1 capsule (250 mg total) by mouth 4 (four) times daily for 7 days. 28 capsule 07/24/2020 0 cyanocobalamin 1000 MCG/ML injection Inject 1 mL into the muscle monthly. Give on 2 dextromethorphan-g uaifenesin 10-100 MG/5ML liquid Take 5 mLs by mouth every 4 (four) hours as needed. 0 donepezil 10 MG Tab Take 10 mg by mouth daily. 2 fluconazole 150 MG tablet Take 150 mg by mouth once. 07/23/2020 0 glimepiride 4 MG tablet Take 4 mg by mouth every morning before breakfast. 1 lisinopril 10 MG tabletIndications: Essential hypertension Take [...] polyneuropathy, without long-term current use of insulin ([facility]) Take 1 capsule (150 mg total) by mouth 2 (two) times a day. 60 capsule 07/16/2020 0 magnesium gluconate (MAGONATE) tablet Take 27 [...] (two) times daily. 2 vitamin D2, ergocalciferol, [address]66[address] UNITS capsule Take 2 capsules by mouth once a week. Thursday12/29/2017 0 documented as of this encounter ED Notes * Warren Lee MD - 07/24/2020 8:58 PM CDT Chief Complaint Chief Complaint Patient presents with ??? Hyperglycemia History of Present Illness 80yo female with history of DM, HTN, dementia BIBP from SNF for report of weakness and fatigue overbaseline. No report of fever from the facility. No report of cough or difficulty breathing. No report of vomiting. The patient has dementia but knows her name. She denies any pain complaints. No headache. No chest pain or shortness of breath. She denies abdominal pain, nausea or vomiting. She states that she feels well but history limited from dementia. Hyperglycemia Medical History ALLERGIES: Allergies Allergen Reactions ??? Metronidazole Unknown MEDICATIONS: Prior to Admission medications Medication Sig Start Date End Date Taking? Authorizing Provider acetaminophen 325 MG tablet Take 650 mg by mouth every 4 (four) hours as needed for Pain. 04/04/19 Doc Abstract amlodipine 10 MG tablet Take 1 tablet by mouth daily. 07/30/15 Doc Abstract aspirin 81 MG chewable tablet Chew 1 tablet by mouth daily. 12/29/17 Doc Abstract atorvastatin 40 MG tablet Take 80 mg by mouth nightly at bedtime. 04/01/19 Doc Abstract cranberry 450 MG Tab tablet Take 450 mg by mouth daily. Doc Abstract cyanocobalamin 1000 MCG/ML injection Inject 1 mL into the muscle monthly. Doc Abstract dextromethorphan-guaifenesin 10-100 MG/5ML liquid Take 5 mLs by mouth every 4 (four) hours as needed. Doc Abstract donepezil 10 MG Tab Take 10 mg by mouth 2 (two) times daily. Doc Abstract fluconazole 150 MG tablet Take 150 mg by mouth once. 07/23/20 07/24/20 Doc Abstract glimepiride 4 MG tablet Take 4 mg by mouth every morning before breakfast. Doc Abstract lisinopril 10 MG tablet Take 1 tablet (10 mg total) by mouth daily. 11/03/18 Frieda Wasserman MD loperamide 2 MG capsule Take 2 mg by mouth 4 (four) times daily as needed for Diarrhea. Doc Abstract loratadine 10 MG tablet Take 1 tablet by mouth daily. 10/06/17 Doc Abstract LYRICA 150 MG capsule Take 1 capsule (150 mg total) by mouth 2 (two) times a day. 07/16/20 Yolanda Pryor NP magnesium gluconate (MAG-G) tablet Take 27 mg by mouth 2 (two) times daily. Doc Abstract Magnesium Hydroxide (MILK OF MAGNESIA OR) Take 30 mLs by mouth daily as needed. Doc Abstract memantine ER (NAMENDA XR) 28 MG 24 hr capsule Take 1 capsule by mouth daily. 06/21/13 Doc Abstract metoprolol tartrate 25 MG tablet Take 25 mg by mouth 2 (two) times daily. Doc Abstract miconazole (ANTIFUNGAL) 2 % cream Apply topically daily as needed. Doc Abstract Multiple Vitamin (THERA-MILL) Tab Take 1 tablet by mouth daily. 10/06/17 Doc Abstract polyethylene glycol powder Take 17 g by mouth daily as needed. Dissolve powder in 240 mL water Doc Abstract polyvinyl alcohol 1.4 % ophthalmic solution Apply 1 drop to eye 3 (three) times daily. Doc Abstract potassium chloride CR 10 MEQ tablet Take 2 tablets by mouth daily. 12/29/17 Doc Abstract predniSONE 5 mg tablet Take 5 mg by mouth daily. 04/26/19 Doc Abstract saccharomyces boulardii (FLORASTOR) 250 MG capsule Take 1 capsule by mouth 2 (two) times daily. DocAbstract vitamin D2, ergocalciferol, 72885 UNITS capsule Take 2 capsules by mouth once a week. 12/29/17 Doc Abstract PAST MEDICAL HISTORY: Past Medical History: Diagnosis Date ??? Cholecystitis, unspecified 02/09/2019 ??? Chronic indwelling Zhang catheter PAST SURGICAL HISTORY: History reviewed. No pertinent surgical history. FAMILY HISTORY: Family History Family history unknown: Yes SOCIAL HISTORY: Social History Tobacco Use ??? Smoking status: Unknown If Ever Smoked Substance Use Topics ??? Alcohol use: Not on file ??? Drug use: Not on file Review of Systems Review of Systems Unable to perform ROS: Dementia Physical Exam Filed Vitals: 07/24/201955 BP: (!) 165/75 Pulse: 71 Resp: 18 Temp: 96.8 ??F (36 ??C) TempSrc: Tympanic SpO2: 93% Weight: 70.3 kg (155 lb) Height: 5' 6 (1.676 m) Physical Exam Constitutional: Appearance: Normal appearance. HENT: Head: Normocephalic and atraumatic. Nose: Nose normal. Mouth/Throat: Mouth: Mucous membranes are moist. Eyes: Extraocular Movements: Extraocular movements intact. Pupils: Pupils are equal, round, and reactive to light. Neck: Musculoskeletal: Normal range of motion and neck supple. Cardiovascular: Rate and Rhythm: Normal rate and regular rhythm. Pulses: Normal pulses. Pulmonary: Effort: Pulmonary effort is normal. Breath sounds: Normal breath sounds. Abdominal: Palpations: Abdomen is soft. Tenderness: There is no abdominal tenderness. Musculoskeletal: Normal range of motion. Skin: General: Skin is warm and dry. Neurological: General: No focal deficit present. Mental Status: She is alert. Sensory: No sensory deficit. Motor: No weakness. Psychiatric: Mood and Affect: Mood normal. Diagnostic Studies / Procedures ELECTROCARDIOGRAMS: No results found for this visit on 07/24/20. LABORATORY STUDIES: Results for orders placed or performed during the hospital encounter of 07/24/20 CBC W/DIFF AUTOMATED Result Value Ref Range WBC 5.3 4.4 - 11.0 x10'3/uL RBC 5.64 (H) 4.50 - 5.10 x10'6/uL HGB 16.8 (H) 12.3 - 15.3 G/DL HCT 52.1 (H) 35.9 - 44.6 % MCV 92.4 80.0 - 96.0 FL MCH 29.8 25.3 - 30.9 PG MCHC 32.2 31.0 - 34.1 G/DL RDW 14.6 12.4 - 15.1 % PLT 159 151 - 353 x10'3/uL MPV 10.9 9.6 - 12.0 FL RBC MORPHOLOGY NORMAL PLT MORPH. NORMAL WBC MORPHOLOGY NORMAL LYMPHOCYTES 23.6 15.8 - 45.0 % NEUTROPHILS 69.0 42.1 - 71.9 % MONOCYTES 6.0 5.7 - 12.5 % EOSINOPHILS 0.8 0.0 - 5.6 % BASOPHILS 0.4 0.0 - 1.3 % ABS. NEUTROPHILS TOTAL 3.68 1.40 - 6.00 x10'3/uL IMMATURE GRANS 0.2 0.0 - 0.5 % ABS. LYMPHOCYTES 1.26 0.80 - 4.70 x10'3/uL COMPREHENSIVE METABOLIC PANEL Result Value Ref Range GLUCOSE 347 (H) 70 - 99 MG/DL BUN 20 (H) 7 - 18 MG/DL CREATININE S/P/B 1.07 (H) 0.55 - 1.02 MG/DL SODIUM 149 (H) 136 - 145 MMOL/L POTASSIUM 4.3 3.5 - 5.1 MMOL/L CHLORIDE S/P/B 110 (H) 100 - 108 MMOL/L CO2 22.8 21 - 32 MMOL/L CALCIUM 9.6 8.5 - 10.1 MG/DL BILIRUBIN TOTAL S/P/B 0.6 0.2 - 1.2 MG/DL TOTAL PROTEIN S/P/B 7.5 6.4 - 8.2 G/DL ALBUMIN S/P/B 3.5 3.4 - 5.0 G/DL AST 55 (H) 15 - 37 U/L ALT 90 (H) 14 - 55 U/L ALKALINE PHOSPHATASE S/P/B 149 (H) 50 - 136 U/L ANION GAP 16.2 (H) 5 - 15 MMOL/L BUN CREATININE RATIO 18.7 6 - 26 A/G RATIO 0.9 (L) 1.0 - 2.0 RATIO eGFR Non-Afr. Amer. 50 (L) >90 ML/MIN/1.73 M2 eGFR Afr. Amer. 58 (L) >90 ML/MIN/1.73 M2 URINALYSIS, AUTO, COMPLETE Result Value Ref Range COLOR (U) YELLOW TRANSPARENCY CLEAR Specific [place] (U) >1.030 (H) 1.000 - 1.030 U PH 5.0 5.0 - 9.0 LEUKOCYTE ESTERASE NEGATIVE NEGATIVE NITRITES POSITIVE (A) NEGATIVE PROTEIN (U) TRACE (A) NEGATIVE URINE GLUCOSE 3+ (A) NEGATIVE U KETONES 1+ (A) NEGATIVE BILIRUBIN (U) NEGATIVE NEGATIVE BLOOD NEGATIVE NEGATIVE WBC/HPF 0-5 0 - 5 /HPF RBC/HPF 0-5 0 - 5 /HPF EPI/HPF RARE /HPF BACTERIA (URINE) MODERATE /HPF Bedside Blood Glucose Result Value Ref Range GLUCOSE WHOLE BLOOD 308 (A) 70 - 100 mg/dL POCT glucose Result Value Ref Range GLUCOSE POC 308 (H) 70 - 110 mg/dL IMAGING STUDIES XR CHEST PORTABLE (Results Pending) ED Course / Medical Decision Making MDM Number of Diagnoses or Management Options Diagnosis management comments: 80yo female with history of dementia, DM, HTN brought from SNF for fatigue. Stable vitals on arrival. No fever. Borderline 02 sat but may be baseline given age. Blood sugar 300s for EMS. Repeated with same here. On exam, no focal exam findings. No abdominal tenderness. Neuro intact except baseline dementia. IV placed and given fluid bolus and insulin for elevated sugar. May be dehydration component to fatigue. Labs, UA and CXR sent. Differential UTI, PNA, dehydration, anemia. Labs returned with hyperglycemia with mild dehydration but no DKA. Mild elevation in LFTS. Chemistries with no leukocytosis but hemoconcentration. Hemoconcentration may also be from dehydration but could be polycythemia. No previous CBC for comparison. CXR negative per radiologist. UA with trace WBC but positive nitrites. Possible early UTI. Given keflex. On reevaluation, she still has stable vitals and no complaints. Blood sugar decreased. Suspect UTI and dehydration as cause of fatigue. Discharge with tylenol and keflex. Instruct SNF to encourage fluids. Follow up PMD in 2 days for recheck or return to the ER if any worsening symptoms. Patient Progress Patient progress: stable Clinical Impression None Disposition: Data Unavailable Warren Lee MD 07/24/202117 * Monica Peng RN - 07/24/2020 7:59 PM CDT Pt arrives to the ed via ems from local nursing facility for lethargy and high blood sugar. Nursingfacility states pt just isn't acting herself. Upon triage pt is A&Ox1 (baseline) VSS documented in this encounter Plan of Treatment Not on file documented as of this encounter Procedures Procedure Name Priority Date/Time Associated Diagnosis Comments XR CHEST PORTABLE STAT 07/24/2020 8:2 7 PM CDT URINALYSIS, AUTO, COMPLETE STAT 07/24/2020 8:22 PM CDT POCT BEDSIDE BLOOD GLUCOSE STAT 07/24/2020 8:17 PM CDT URINE BACTERIA CULTURE Routine 0 8:15 PM CDT COMPREHENSIVE METABOLIC PANEL STAT 07/24/2020 8:14 PM CDT CBC W/DIFF AUTOMATED STAT 07/24/2020 8:14 PM CDT POCT GLUCOSE - SHAFFER DOCKED DEVICE Routine 07/24/2020 8:11 PM CDT documented in this encounter Results * XR CHEST PORTABLE (07/24/2020 8:27 PM CDT) Anatomical Region Laterality Modality Chest Radiographic Marlene ging 07/24/2020 8:58 PM CDT Impressions 07/24/2020 8:59 PM CDT IMPRESSION: No acute infiltrate or change Interpreted By: Harpreet Sam, 07/24/2020 8:58 PM Narrative 07/24/2020 8:59 PM CDT IMAGING STUDIES: ?? XR CHEST PORTABLE ? DATE: 07/24/2020 8:13 PM HISTORY: ??Weakness and fatigue COMPARISON: ??June 16, 2016 FINDINGS: The cardiomediastinal silhouette is normal. ??The lungs are well expanded and clear. ??No pleural effusion or pneumothorax. ??No significant bony abnormalities. Mild chronic interstitial prominence and hypoventilation unchanged. No acute pulmonary edema Procedure Note Harpreet Sam MD - 07/24/2020 IMAGING STUDIES: XR CHEST PORTABLE DATE: 07/24/2020 8:13 PM HISTORY: Weakness and fatigue COMPARISON: June 16, 2016 FINDINGS: The cardiomediastinal silhouette is normal. The lungs are well expanded and clear. No pleural effusion or pneumothorax. No significant bony abnormalities. Mild chronic interstitial prominence and hypoventilation unchanged. No acute pulmonary edema IMPRESSION: No acute infiltrate or change Interpreted By: Harpreet Sam, 07/24/2020 8:58 PM us Warren Lee MD GENERAL IMAGING Final Result * (ABNORMAL) URINALYSIS, AUTO, COMPLETE (07/24/2020 8:22 PM CDT) COLOR (U) YELLOW 07/24/2020 8:39 PM CDT [facility] TRANSPARENCY CLEAR 07/24/2020 8:39 PM CDT [facility] SPECIFIC GRAVITY (U) >1.030(H) 1.000 - 1.030 07/24/2020 8:39 PM CDT [facility] U PH 5.0 5.0 - 9.0 07/24/2020 8:39 PM CDT [facility] LEUKOCYTES (U) NEGATIVE NEGATIVE 07/24/2020 8:39 PM CDT [facility] NITRITES POSITIVE(A) NEGATIVE 07/24/2020 8:39 PM CDT [facility] PROTEIN (U) TRACE(A) NEGATIVE 07/24/2020 8:39 PM CDT [facility] URINE GLUCOSE 3+(A) NEGATIVE 07/24/2020 8:39 PM T [facility] KETONES MG/DL (U) 1+(A) NEGATIVE 07/24/2020 8:39 PM CDT [facility] BILIRUBIN (U) NEGATIVE NEGATIVE 07/24/2020 8:39 PM CDT [facility] BLOOD (U) NEGATIVE NEGATIVE 07/24/2020 8:39 PM CDT [facility] WBC/HPF 0-5 0 - 5 /HPF 07/24/2020 8:39 PM CDT [facility] RBC/HPF 0-5 0 - 5 /HPF 07/24/2020 8:39 PM CDT [facility] EPI/HPF RARE /HPF 07/24/2020 8:39 PM CDT [facility] BACTERIA (U) MODERATE /HPF 07/24/2020 8:39 PM CDT [facility] URINE, STRAIGHT CATH 07/24/2020 8:22 PM CDT us Warren Lee MD URINE ORDERABLES Final Result [facility] [address] [place] [address], [place] [phone] * (ABNORMAL) Bedside Blood Glucose (07/24/2020 8:17 PM CDT) GLUCOSE WHOLE BLOOD 308(A) 70 - 100 mg/dL us Warren Lee MD NURSING TREATMENT ORDERABLES - ONCE OR INTERVALS Final Result * (ABNORMAL) CULTURE URINE (07/24/2020 8:15 PM CDT) SPEC DESCRIPTION URINE, CATHETERIZED 07/25/2020 12:04 AM CDT [facility] SPECIAL REQUESTS NO SPECIAL REQUEST 07/25/2020 12:04 AM CDT [facility] CULTURE RESULT 10,000-49,000 COL/ML ESCHERICHIA COLI (A) 07/28/2020 7:32 AM CDT [facility] URINE SPECIMEN OBTAINED BY SINGLE CATHETERIZATION OF URINARY BLADDER / Unknown 07/24/2020 8:15 PM CDT 07/25/2020 12:05 AM CDT Narrative Organism Antibiotic Method Susceptibility Escherichia coli AMPICILLIN SANDER (VITEK) >=32: Resistant Escherichia coli AMPICILLIN/SULBACTAM SANDER (VITEK) 16: Intermediate Comment:INTERMEDIATE Escherichia coli CEFTRIAXONE SANDER (VITEK) <=1: Sensitive Escherichia coli CEFTAZIDIME SANDER (VITEK) <=1: Sensitive Escherichia coli CEFAZOLIN SANDER (VITEK) 8: Sensitive Escherichia coli ESBL SANDER (VITEK) NEG: Sensitive Escherichia coli NITROFURANTOIN SANDER (VITEK) <=16: Sensitive Escherichia coli GENTAMICIN SANDER (VITEK) <=1: Sensitive Escherichia coli LEVOFLOXACIN SANDER (VITEK) >=8: Resistant Escherichia coli TRIMETH-SULFAMETH. SANDER (VITEK) <=20: Sensitive Escherichia coli PIPRACIL/TAZO SANDER (VITEK) Sensitive Warren Lee MD MICROBIOLOGY - GENERAL ORDERABL ES Final Result [facility] [address] [place] [address], [place] [phone] [facility] [address] [facility] [place] [address], [place] [phone] * (ABNORMAL) COMPREHENSIVE METABOLIC PANEL (07/24/2020 8:14 PM CDT) [facility] GLUCOSE 347(H) 70 - 99 MG/DL 07/24/2020 8:29 PM CDT [facility] BUN 20(H) 7 - 18 MG/DL 07/24/2020 8:29 PM CDT [facility] CREATININE S/P/B 1.07(H) 0.55 - 1.02 MG/DL 07/24/2020 8:29 PM CDT [facility] SODIUM S/P/B 149(H) 136 - 145 MMOL/L 07/24/2020 8:29 PM CDT [facility] POTASSIUM S/P/B 4.3 3.5 - 5.1 MMOL/L 07/24/2020 8:29 PM CDT [facility] CHLORIDE S/P/B 110(H) 100 - 108 MMOL/L 07/24/2020 8:29 PM CDT [facility] CO2 22.8 21 - 32 MMOL/L 07/24/2020 8:29 PM CDT [facility] CALCIUM S/P/B 9.6 8.5 - 10.1 MG/DL 07/24/2020 8:29 PM CDT [facility] BILIRUBIN TOTAL S/P/B 0.6 0.2 - 1.2 MG/DL 07/24/2020 8:29 PM [facility] TOTAL PROTEIN S/P/B 7.5 6.4 - 8.2 G/DL 07/24/2020 8:29 PM [facility] ALBUMIN S/P/B 3.5 3.4 - 5.0 G/DL 07/24/2020 8:29 PM [facility] AST 55(H) 15 - 37 U/L 07/24/2020 8:29 PM [facility] ALT 90(H) 14 - 55 U/L 07/24/2020 8:29 PM [facility] ALKALINE PHOSPHATASE S/P/B 149(H) 50 - 136 U/L 07/24/2020 8:29 PM [facility] ANION GAP 16.2(H) 5 - 15 MMOL/L 07/24/2020 8:29 PM [facility] BUN CREATININE RATIO 18.7 6 - 26 07/24/2020 8:29 PM [facility] A/G RATIO 0.9(L) 1.0 - 2.0 RATIO 07/24/2020 8:29 PM [facility] EGFR NON-AFR. AMER. 50(L) >90 ML/MIN/1.7 3 M2 07/24/2020 8:29 PM [facility] EGFR AFR. AMER. 58(L) >90 ML/MIN/1.7 3 M2 07/24/2020 8:29 PM [facility] Comment: NOTE: eGFR is not calculated for patients <18 years of age. This is an estimated GFR (CKD EPI) and should not be used for calculating drug doses. 07/24/2020 8:14 PM CDT us Warren Lee MD LABORATORY Final Result [facility] [address] [place] [address], * (ABNORMAL) CBC W/DIFF AUTOMATED (07/24/2020 8:14 PM CDT) WBC 5.3 4.4 - 11.0 x10'3/uL 07/24/2020 8:29 PM CDT [facility] RBC 5.64(H) 4.50 - 5.10 x10'6/uL 07/24/2020 8:29 PM CDT [facility] HGB 16.8(H) 12.3 - 15.3 G/DL 07/24/2020 8:29 PM CDT [facility] HCT 52.1(H) 35.9 - 44.6 % 07/24/2020 8:29 PM CDT [facility] MCV 92.4 80.0 - 96.0 FL 07/24/2020 8:29 PM CDT [facility] MCH 29.8 25.3 - 30.9 PG 07/24/2020 8:29 PM CDT [facility] MCHC 32.2 31.0 - 34.1 G/DL 07/24/2020 8:29 PM CDT [facility] RDW 14.6 12.4 - 15.1 % 07/24/2020 8:29 PM CDT [facility] PLT 159 151 - 353 x10'3/uL 07/24/2020 8:29 PM CDT [facility] MPV 10.9 9.6 - 12.0 FL 07/24/2020 8:29 PM CDT [facility] RBC MORPHOLOGY NORMAL 07/24/2020 8:29 PM CDT [facility] PLT MORPH. NORMAL 07/24/2020 8:29 PM CDT [facility] WBC MORPHOLOGY NORMAL 07/24/2020 8:29 PM CDT [facility] LYMPHOCYTES % 23.6 15.8 - 45.0 % 07/24/2020 8:35 PM CDT [facility] NEUTROPHILS % 69.0 42.1 - 71.9 % 07/24/2020 8:35 PM CDT [facility] MONOCYTES % 6.0 5.7 - 12.5 % 07/24/2020 8:35 PM CDT [facility] EOSINOPHILS 0.8 0.0 - 5.6 % 07/24/2020 8:35 PM CDT [facility] BASOPHILS 0.4 0.0 - 1.3 % 07/24/2020 8:35 PM CDT [facility] ABS. NEUTROPHILS TOTAL 3.68 1.40 - 6.00 x10'3/uL 07/24/2020 8:35 PM CDT [facility] IMMATURE GRANS % 0.2 0.0 - 0.5 % 07/24/2020 8:35 PM CDT [facility] ABS. LYMPHOCYTES 1.26 0.80 - 4.70 x10'3/uL 07/24/2020 8:35 PM CDT [facility] 07/24/2020 8:14 PM CDT us Warren Lee MD LABORATORY Final Result [facility] [address] [place] [address], * (ABNORMAL) POCT glucose (07/24/2020 8:11 PM CDT) GLUCOSE POC 308(H) 70 - 110 mg/dL 07/24/2020 8:11 PM CDT [facility] 07/24/2020 8:11 PM CDT us Warren Lee MD POCT ORDERABLES - DEVICE Final Result [facility] [address] [place] [address], [place] [phone] documented in this encounter Visit Diagnoses Diagnosis UTI (urinary tract infection)- Primary Urinary tract infection, site not specified Dehydration Fatigue Other malaise and fatigue Dementia ([facility]) Dementia, unspecified, without behavioral disturbance documented in this encounter Administered Medications Inactive Administered Medications - up to 3 most recent administrations Medication Order MAR Action Action Date Dose Rate Site cephALEXin (KEFLEX) capsule 250 mg 250 mg, Oral, Once, 1 dose, On e 07/24/20 at 2114 Given 07/24/2020 9:13 PM CDT 250 mg insulin regular (NOVOLIN R/HUMULIN R) injection 6 Units 6 Units, Intravenous, Once, 1 dose, On Thu07/24/20 at 2014, For sliding scale, activate Sliding Scale Insulin order set. Given 07/24/2020 8:28 PM CDT 6 Units sodium chloride 0.9% bolus infusion SOLN 500 mL 500 mL, Intravenous, Administer over 15 Minutes, Bolus (Once), 1 dose, On e 07/24/20 at 2014 New Bag 07/24/2020 8:27 PM CDT 500 mLs documented in this encounter Active and Recently Administered Medications Times are shown in CDT. Scheduled Medication Order 07/22/2020 07/23/2020 07/24/2020 cephALEXin (KEFLEX) capsule 250 mg (COMPLETED) 250 mg, Oral, Once, 1 dose, On e 07/24/20 at 2114 2112 (Given - Provid er: Monica Peng RN) insulin regular (NOVOLIN R/HUMULIN R) injection 6 Units (COMPLETED) 6 Units, Intravenous, Once, 1 dose, On e 07/24/20 at 2014, For sliding scale, activate Sliding Scale Insulin order set. 2027 (Given - Provid er: Monica Peng RN) sodium chloride 0.9% bolus infusion SOLN 500 mL (COMPLETED) 500 mL, Intravenous, Administer over 15 Minutes, Bolus (Once), 1 dose, On Thu07/24/20 at 2014 2026 (New Bag - Prov ider: Monica Peng RN)2058 (Infusion Stop Time - Provider: Monica Peng RN) documented in this encounter Care Teams Patient Safety Manager Relationship Specialty Start Date End Date Jayesh Lara DO PCP - General INTERNAL MEDICINE 02/24/20 12/12/20 Yolanda Dorsey NP Nurse Practitioner Nurse Practitioner Family 02/24/20 01/23/21 documented as of this encounter
--- OUTSIDE RECORDS SUMMARY | 2024-09-21 01:16 | XMS_ITS | Encounter Summary ---
Author Organization [facility] Address [address] [facility] [place] [address] [place] [address] Care Team Providers Care Sanitarian Name Role Phone Yolanda Dorsey WIRE DRAWING MACHINE OPERATOR Unavailable Jayesh Lara DO Primary Care Provider [phone] Encounter Details Date Type Department Care Team (Latest Contact Info) Description 08/01/2020 Scan HEALTH INFO SRVCS Scanned, Documents Social [...] COVID-19? Unable to assess 07/29/2020 8:12 PM FLEXOGRAPHIC PRINTING PRESS OPERATOR documented as of this encounter Functional Status * RETIRED Are you deaf or do you have serious difficulty hearing Answer Date of Assessment Author Status No 07/29/2020 8:15 PM FLEXOGRAPHIC PRINTING PRESS OPERATOR Activ e * RETIRED Are you blind or do you have serious difficulty seeing, even when wearing glasses? Answer Date of Assessment Author Status No 07/29/2020 8:15 PM FLEXOGRAPHIC PRINTING PRESS OPERATOR Activ e * Do you have [...] on filedocumented in this encounter Care Teams Sanitarian Relationship Specialty Start Date End Date Jayesh Lara DO PCP - General INTERNAL MEDICINE 02/24/20 12/12/20 Yolanda Dorsey NP Nurse Practitioner Nurse Practitioner Family 02/24/20 01/23/21 documented as of this encounter
--- OUTSIDE RECORDS SUMMARY | 2024-09-21 01:16 | XMS_ITS | Encounter Summary ---
Author Organization [facility] Address [facility] [facility] [place] [address] [place] [address] Care Team Providers Care Traffic Chief Name Role Phone Yolanda Dorsey RAILROAD POLICE OFFICER Unavailable Jayesh Lara DO Primary Care Provider [phone] Encounter Details Date Type Department Care Team (Late st Contact Info) Description 05/15/2020 Orders Only [facility] [address] [facility] [address] [place] [id number] Savanah Mehta LPN Social History Tobacco Use [...] without long-term current use of insulin (CMS/HCC [facility]) documented in this encounter Care Teams Traffic Chief Relationship Specialty Start Date End Date Jayesh Lara DO PCP - General INTERNAL MEDICINE 02/24/20 12/12/20 Yolanda Dorsey NP Nurse Practitioner Nurse Practitioner Family 02/24/20 01/23/21 documented as of this encounter
--- OUTSIDE RECORDS SUMMARY | 2024-09-21 01:16 | XMS_ITS | Encounter Summary ---
Author Organization [facility] Address [address] [facility] [place] [address] [place] [address] Care Team Providers Care Voice Network Engineer Name Role Phone Yolanda Dorsey MANAGER COSTING Unavailable Jayesh Lara DO Primary Care Provider [phone] Reason for Visit * Reason Comments [facility] routine Encounter Details Date Type Department Care Team (Late st Contact Info) Description 05/10/2020 10:20 AM CDT Telemedicine [facility] [address] [address] Yolanda Dorsey NP [address] [id number] [facility] (routine) Social History Tobacco Use Types Packs/Day Years Used Date Smoking Tobacco: Unknown Comments Unknown Sex and Gender Information Value Date Recorded Sex Assigned at Not on file Legal Sex Female 10:25 PM CDT Gender Identity Not on file Sexual Orientation Not on file documented as of this encounter Last Filed Vital Signs Vital Sign Reading Time Taken Comments Blood Pressure 122/60 05/10/2020 9:31 AM CDT Pulse 80 05/10/2020 9:31 AM CDT Temperature 36.5 ??C (97.7 ??F) 05/10/2020 9:31 AM CD T Respiratory Rate 18 05/10/2020 9:31 AM CDT Oxygen Saturation - - Inhaled Oxygen Concentration - - Weight - - Height - - Body Mass Index - - documented in this encounter Progress Notes * Yolanda Pryor NP - 05/10/2020 10:20 AM CDT Images from the original note were not included. Reason for Visit: [facility] (routine) History of Present Illness: I introduced and identified myself, received verbal consent?? from the patient to proceed with thisvideo visit and made the patient aware that the same confidentiality and information coordinator practices apply. The patient joined the video visit from [facility]. [place] the [place] The following clinical staff helped with this visit Nurse: Marilee. Total Time Spent in Minutes: 13 Emelina Santoyo is an 79-year-old female who was seen today for a routine custodial visit. She has multiple chronic medical issues that were reviewed. Patient is alert and oriented to self at baseline. She is able to make needs known. She is able to respond to questions and follow commands. She hasno complaints of pain at this time. Staff has no acute concerns at this time. Alzheimer's: No behaviors. Stable. On namenda and donepezil. Type 2 diabetes: Follow A1C. Last done 03/02/20 - 8.2%. On glipizide and lyrica. MS: No complaints. [...] at bedtime. , Disp: , Rfl: ??? Cranberry 250 MG Tab, Take 1 tablet by mouth 2 (two) times a day. , Disp: , Rfl: ??? cyanocobalamin 1000 MCG/ML injection, Inject 1 mL into the muscle monthly. , Disp: , Rfl: ??? dextromethorphan-guaifenesin 10-100 MG/5ML liquid, Take 5 mLs by mouth every 4 (four) hours as needed., Disp: , Rfl: ??? donepezil 10 MG Tab, Take 10 mg by mouth 2 (two) times daily., Disp: , Rfl: ??? glimepiride 1 MG tablet, Take 2 mg by mouth daily. , Disp: , Rfl: ??? HYDROCORTISONE 1 % ointment, APPLY TO AFFECTED AREAS ON BUTTOCKS 2 TIMES A DAY UNTIL HEALED, Disp: 28 g, Rfl: 1 ??? lisinopril 10 MG tablet, Take 1 [...] miconazole (ANTIFUNGAL) 2 % cream, Apply topically as needed., Disp: , Rfl: ??? miconazole (ANTIFUNGAL) 2 % powder, Apply topically as needed for Itching., Disp: , Rfl: ??? Multiple Vitamin (THERA-MILL) [...] Disp: , Rfl: ??? vitamin D2, ergocalciferol, [address]9959 UNITS capsule, Take 2 capsules by mouth once a week. , Disp: , Rfl: Allergies Allergen Reactions ??? Metronidazole Unknown Past Medical History: Diagnosis Date ??? Cholecystitis, unspecified 02/09/2019 ??? Chronic indwelling Zhang catheter Filed Vitals: 05/10/20 0931 BP: 122/60 Pulse: 80 Resp: 18 Temp: 97.7 ??F (36.5 ??C) Physical Exam Constitutional: She appears well-developed and well-nourished. Pulmonary/Chest: Effort normal. Neurological: She is alert. She is disoriented. Coordination and gait (wheelchair) abnormal. Psychiatric: She has a normal mood and affect. Her speech is delayed. She is slowed and withdrawn. Cognition and memory are impaired. She expresses impulsivity and inappropriate judgment. She exhibits abnormal recent memory. She is inattentive. Diagnoses/Impression: 1. Late onset Alzheimer's disease without behavioral disturbance ([facility]) 2. Type 2 diabetes mellitus with diabetic polyneuropathy, without long-term current use of insulin ([facility]) 3. Essential hypertension 4. Vitamin D deficiency 5. Hyperlipidemia, unspecified hyperlipidemia type Recommendations and Plan: Continue current treatment plan. Staff to continue to monitor and report any changes. Follow up in one month unless necessary sooner. Yolanda Pryor NP documented in this encounter Plan of Treatment Not on file documented as of this encounter Visit Diagnoses Diagnosis Late onset Alzheimer's disease without behavioral disturbance ([facility])- Primary Type 2 diabetes mellitus with diabetic polyneuropathy, without long-term current use of insulin ([facility]) Essential hypertension Unspecified essential hypertension Vitamin D deficiency Unspecified vitamin D deficiency Hyperlipidemia, unspecified hyperlipidemia type documented in this encounter Care Teams Voice Network Engineer Relationship Specialty Start Date End Date Jayesh Lara DO PCP - General INTERNAL MEDICINE 02/24/20 12/12/20 Yolanda Dorsey NP Nurse Practitioner Nurse Practitioner Family 02/24/20 01/23/21 documented as of this encounter
--- OUTSIDE RECORDS SUMMARY | 2024-09-21 01:16 | XMS_ITS | Encounter Summary ---
Author Organization [facility] Address [facility] [facility] [place] [address] [place] [address] Care Team Providers Care Component Technician Name Role Phone Yolanda Dorsey ENVIRONMENTAL FIELD OFFICE MANAGER Unavailable Jayesh Lara DO Primary Care Provider [phone] Reason for Visit * Reason Onset Date Comments Fax Documentation 06/19/2020 cranberry pill Encounter Details Date Type Department Care Team (Latest Contact Info) Description 06/19/2020 ELECTRIC TRUCK CRANE OPERATOR ONLY [facility] [address] [place] [id number] Yolanda Dorsey, SHANKAR [address] [address] Fax Documentation (cranberry pill) Social History Tobacco Use Types Packs/Day Years Used Date Smoking Tobacco: Unknown Comments Unknown Sex and Gender Information Value Date Recorded Sex Assigned at Not on file Legal Sex Female 10:25 PM CDT Gender Identity Not on file Sexual Orientation Not on file documented as of this encounter Progress Notes * Dorothy Kwong - 06/19/2020 10:47 AM CDT Facility faxed: Res has order for Cranberry pill 425 mg po daily. Our stock med Cranberry comes in 450 mg tab. May we change order to stock dose cranberry 450 mg po daily. Order: Ok to change to stock 450 mg po daily documented in this encounter Plan of Treatment Not on file documented as of this encounter Visit Diagnoses Not on filedocumented in this encounter Care Teams Component Technician Relationship Specialty Start Date End Date Jayesh Lara DO PCP - General INTERNAL MEDICINE 02/24/20 12/12/20 Yolanda Dorsey NP Nurse Practitioner Nurse Practitioner Family 02/24/20 01/23/21 documented as of this encounter
--- OUTSIDE RECORDS SUMMARY | 2024-09-21 01:16 | XMS_ITS | Encounter Summary ---
Author Organization [facility] Address [facility] [facility] [place] [address] [place] [address] Care Team Providers Care Light Coil Winder Name Role Phone Yolanda Dorsey TELECOMMUNICATIONS ADMINISTRATOR Unavailable Jayesh Lara DO Primary Care Provider [phone] Encounter Details Date Type Department Care Team (Late st Contact Info) Description 05/09/2020 Chart Prep [facility] [address] [facility] [address] [place] [address] Yolanda Dorsey NP [address] [phone] Social History Tobacco Use Types Packs/Day Years [...] on filedocumented in this encounter Care Teams Light Coil Winder Relationship Specialty Start Date End Date Jayesh Lara DO PCP - General INTERNAL MEDICINE 02/24/20 12/12/20 Yolanda Dorsey NP Nurse Practitioner Nurse Practitioner Family 02/24/20 01/23/21 documented as of this encounter
--- OUTSIDE RECORDS SUMMARY | 2024-09-21 01:16 | XMS_ITS | Encounter Summary ---
Author Organization [facility] Address [facility] [facility] [place] [address] [place] [address] Care Team Providers Care Web Design Specialist Name Role Phone SunitaYolanda velazquez SHEET METAL LAYOUT MECHANIC Unavailable Jayesh Lara DO Primary Care Provider [phone] Encounter Details Date Type Department Care Team (Late st Contact Info) Description 06/05/2020 Chart Prep [facility] [address] [facility] [address] [place] [address] Jayesh Lara DO [address] [phone] Social History Tobacco Use Types Packs/Day Years [...] on filedocumented in this encounter Care Teams Web Design Specialist Relationship Specialty Start Date End Date Jayesh Lara DO PCP - General INTERNAL MEDICINE 02/24/20 12/12/20 Yolanda Dorsey NP Nurse Practitioner Nurse Practitioner Family 02/24/20 01/23/21 documented as of this encounter
--- OUTSIDE RECORDS SUMMARY | 2024-09-21 01:16 | XMS_ITS | Encounter Summary ---
Author Organization [facility] Address [address] [place] [address] [place] [address] Care Team Providers Care Director Of Enterprise Strategy Name Role Phone Yolanda Dorsey OVERLOCK COLLAR SETTER Unavailable Kirsty Lara DO Primary Care Provider [phone] Reason for Referral * Imaging (Urgent) - Closed Specialty Diagnoses / Procedures Referred By Jenniffer salinas Referred To Contact RADIOLOGY Procedures CT HEAD WO Radha Ann MD [address] [facility] [address] [place] [address] Phone: tel: fax: Referral ID Status Reason Start Date Expiration Date Visits Re quested Visits Authorized [id number] Closed 07/30/2020 08/29/2021 1 1 LATION ESTIMATOR * Imaging (Emergency) - Closed Specialty Diagnoses / Procedures Referred By Jenniffer salinas Referred To Contact RADIOLOGY Procedures CT HEAD WO Brianna Rendon MD [address] [place] [address] Phone: tel: fax: Referral ID Status Reason Start Date Expiration Date Visits Re quested Visits Authorized [id number] Closed 07/29/2020 08/28/2021 1 1 LATION ESTIMATOR Reason for Visit * Reason Comments Altered Mental Status * Auth/Cert Specialty Diagnoses / Procedures Referred By Contac t Referred To Contact Diagnoses Hypernatremia AMS (altered mental status) Hypernatremia Referral ID Status Reason Start Date Expiration Date Visits Re quested Visits Authorized [id number] 1 1 Encounter Details Date Type Department Care Team (Late st Contact Info) Description 07/29/2020 2:02 AM INSULATION ESTIMATOR - 08/01/2020 10:58 AM INSULATION ESTIMATOR Hospital Encounter [facility] Med/Surg [address] [place], [place] [id number] Brianna Gonzalez MD [address] [place] [address] Bladimir Martin MD Harris, Michael, MD [address] [facility] [address] [phone] Haider Burrows MD [facility] [place] [place] [address] -[phone] (Work) Altered Mental Status Discharge Disposition: [facility] Social History Tobacco Use Types Packs/Day [...] COVID-19? Unable to assess 07/29/2020 8:12 PM INSULATION ESTIMATOR documented as of this encounter Last Filed Vital Signs Vital Sign Reading Time Taken Comments Blood Pressure 146/65 08/01/2020 7:00 AM INSULATION ESTIMATOR Pulse 77 08/01/2020 7:00 AM INSULATION ESTIMATOR Temperature 36.6 ??C (97.8 ??F) 08/01/2020 7:00 AM CS T Respiratory Rate 20 08/01/2020 7:00 AM INSULATION ESTIMATOR Oxygen Saturation 90% 08/01/2020 7:00 AM INSULATION ESTIMATOR Inhaled Oxygen Concentration - - Weight 74.9 kg (165 lb 2 oz) 08/01/2020 3:00 AM INSULATION ESTIMATOR Height 167.6 cm (5' 6 ) 07/29/2020 1:56 AM CDT Body Mass Index 26.65 07/29/2020 1:56 AM CDT documented in this encounter Functional Status * Question Answer Date of Assessment Author Status Do you have serious difficulty walking or climbing stairs? Yes 07/29/2020 8:15 PM Nirali Jacome RN Acti ve * Question Answer Date of Assessment Author Status Do you have difficulty dressing or bathing? Yes 07/29/2020 8:15 PM Nirali Jacome RN Active Because of a physical, mental, or emotional condition, do you have difficulty doing errands alone such as visiting a doctor's office or shopping? Yes 07/29/2020 8:15 PM Fercho Jacome RN Active * RETIRED Are you deaf or do you have serious difficulty hearing Answer Date of Assessment Author Status No 07/29/2020 8:15 PM INSULATION ESTIMATOR Activ e * RETIRED Are you blind or do you have serious difficulty seeing, even when wearing glasses? Answer Date of Assessment Author Status No 07/29/2020 8:15 PM INSULATION ESTIMATOR Activ e * Do you have serious [...] or making decisions? Yes 07/29/2020 8:15 PM Nirali Jacome RN Active * Because of a physical, mental, or emotional condition, do you have serious difficulty concentrating, remembering, or making decisions? Answer Entry Date Author Status Yes 07/29/2020 8:15 PM INSULATION ESTIMATOR Nirali Lyons R N Active documented in this encounter Discharge Summaries * Haider Burrows MD - 08/01/2020 9:00 AM CST Hospitalist Discharge Summary Patient ID: Emelina Santoyo. female. [id number]. [id number] Hospital Course: 80-year-old female NH resident, presented with hypernatremia following UTI s/p Keflex. Na improved 141, DC back to SNF as Covid was neg. A/P Hypernatremia: Likely contributing to lethargy Suspect dehydration from recent infection IV fluid hydration w 09/29 normal saline Trend sodium Fall precautions 07/30 Tending lowerNa+ 151>150>148 07/31 Na+ 141 ?? Hypokalemia 07/31 Suspect use of insulin is effective ?? AMS, acute metabolic encephalopathy /2 UTI, 07/31 difficult to arouse at times drowsy usually awake in a.m. For breakfast ?? Multiple Sclerosis 07/30 Bedbound 07/31 Patient reported she gets up in a wheelchair ?? 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 Dementia: Advanced dementia, oriented x1 at baseline Continue home regimen 07/30 At baseline ?? Hypertension, hypertensive urgency Urgency noted on presentation Maintained on Norvasc, lisinopril, metoprolol Continue home regimen and adjust as clinically warranted 07/31 SBP less than 130 amlodipine on hold ?? Diabetes mellitus Maintained on glimepiride Hold home regimen 07/30 Lispro SSI added 07/31 BS running high likely because glimepiride DC'd Hyperlipidemia: Statin therapy ?? Recent UTI: On Keflex, will continue 07/30 Completing course of treatment tomorrow. ?? CKD Suspect stage III Avoid nephrotoxic agents as clinically warranted Monitor Admit date: 07/29/2020 2:02 AM Discharge date: 08/01/20 Admitting Physician: Radha Laurent MD Attending Physician: Haider Burrows MD Primary Care Physician: KIRSTY LARA, DO Discharge Physician: HAIDER BURROWS MD Primary Diagnoses: Patient Active Problem List Diagnosis ??? Late onset Alzheimer's disease without behavioral disturbance (CMS/HCC) ??? Type 2 diabetes mellitus with diabetic polyneuropathy, without long-term current use of insulin([facility]/HCC) ??? Generalized multiple sclerosis ([facility]/HCC) ??? Hyperlipidemia ??? Hypertension ??? Insomnia ??? Vitamin D deficiency ??? Full incontinence of feces ??? Urinary incontinence ??? Pressure injury of coccygeal region, stage 2 (CMS/HCC) ??? Functional diarrhea ??? Hypernatremia Discharged Condition: Stable Code Status: Full Code Indication for Admission: Chief Complaint Patient presents with ??? Altered Mental Status Reason for hospitalization: Patient Active Problem List Diagnosis ??? Late onset Alzheimer's disease without behavioral disturbance ([facility]/HCC) ??? Type 2 diabetes mellitus with diabetic polyneuropathy, without long-term current use of insulin([facility]/HCC) ??? Generalized multiple sclerosis (CMS/HCC) ??? Hyperlipidemia ??? Hypertension ??? Insomnia ??? Vitamin D deficiency ??? Full incontinence of feces ??? Urinary incontinence ??? Pressure injury of coccygeal region, stage 2 (CMS/HCC) ??? Functional diarrhea ??? Hypernatremia Readmission/Mortality Score at discharge: Low 0-28, Medium 29-58, High >59 LACE+ Score Readmission Score: 80 Male Patient: Urgent Admission: 15 Discharge Institution: Length of Stay: 4 Alternative Level of Care Status: 0 ED Visits in Previous 6 Months: 3 Elective Admission in Previous Year: 6 Comorbidity Score (by age & number of urgent admissions): 50 Consults: None Significant Diagnostic Studies: Recent Labs Lab 07/29/2014307/30/20 0627 WBC 5.7 3.9* RBC 5.43* 4.74 HGB 16.2* 14.3 HCT 49.9* 43.8 MCV 91.9 92.4 MCH 29.8 30.2 MCHC 32.5 32.6 PLT 133* 122* RDW 14.5 14.2 MPV 10.9 10.8 PERNEU 74.7* 58.5 PERLYM 16.4 33.9 PERMON 5.5* 5.4* LYMC 0.93 1.31 Recent Labs Lab 07/29/20 0144 07/29/20 1938 07/30/20 0627 07/31/20 0911 08/01/20 0641 NA 151* 150* 148* 141 146* K 3.9 3.6 3.4* 3.1* 3.4* CL 112* 111* 111* 107 112* CO2 26.4 24.6 27.3 22.0 19.1* AGAP 12.6 14.4 9.7 12.0 14.9 BUN 23* 17 15 16 15 CR 1.15* 0.85 0.82 0.75 0.80 BUNCREATININ 20.0 20.0 18.3 21.3 18.8 GFRNON 46* 66* 69* 76* 71* GFR 53* 76* 79* 88* 82* GLU 393* 303* 247* 265* 269* CA 9.8 8.9 8.3* 8.2* 8.3* TP 7.0 -- 5.6* -- -- ALB 3.3* -- 2.6* -- -- TBIL 0.8 -- 0.7 -- -- ALKP 149* -- 114 -- -- AST 56* -- 76* -- -- ALT 149* -- 110* -- -- Recent Labs Lab 07/29/20 014 TSH 1.441 No results for input(s): APTT, INR, PTT in the last 168 hours. Recent Labs Lab 07/29/20 014 TROP <0.017 Recent Labs Lab 07/29/20 0144 07/29/20 0635 07/29/20 1015 LACTICACID 2.7* 2.2* 2.0 No results for input(s): PH, PCO2, PO2, Q0KDOTOXNUNN, BICARBWB, BASEDEFICIT, BASEEXCESS in the [id number] hours. Results for orders placed or performed during the hospital encounter of 07/29/20 URINALYSIS, AUTO, COMPLETE Result Value Ref Range COLOR (U) YELLOW TRANSPARENCY CLEAR Specific [place] (U) 1.020 1.000 - 1.030 U PH 6.0 5.0 - 9.0 LEUKOCYTE ESTERASE NEGATIVE NEGATIVE NITRITES NEGATIVE NEGATIVE PROTEIN (U) NEGATIVE NEGATIVE URINE GLUCOSE 3+ (A) NEGATIVE U KETONES 1+ (A) NEGATIVE BILIRUBIN (U) NEGATIVE NEGATIVE BLOOD NEGATIVE NEGATIVE WBC/HPF NONE SEEN 0 - 5 /HPF RBC/HPF NONE SEEN 0 - 5 /HPF EPI/HPF FEW /HPF CULTURE & SENSITIVITY INDICATED? CULTURE IS NOT INDICATED Radiology Reports : No results found. Discharge Exam: Filed Vitals: 07/31/20 2327 08/01/20 0300 08/01/20 0451 08/01/20 0700 BP: 130/62 146/66 146/65 Pulse: 77 76 77 Resp: Temp: 97.1 ??F (36.2 ??C) 97.5 ??F (36.4 ??C) 97.8 ??F (36.6 ??C) TempSrc: Tympanic Tympanic Tympanic SpO2: 90% 91% 90% Weight: 74.9 kg (165 lb 2 oz) Height: The pt left before I could see her. Discharge Medications: Medication List START taking these medications HYDROcodone-acetaminophen 5-325 MG tablet Commonly known as: NORCO Take 1 tablet by mouth every 4 (four) hours as needed. Indications: Acute Pain < 7 Day Supply CONTINUE taking these medications acetaminophen 325 MG tablet Commonly known as: TYLENOL amLODIPine 10 MG tablet Commonly known as: NORVASC Antifungal 2 % cream Generic drug: miconazole aspirin 81 MG chewable tablet atorvastatin 40 MG tablet Commonly known as: LIPITOR cranberry 450 MG Tabs tablet cyanocobalamin 1000 MCG/ML injection Commonly known as: B-12 donepezil 10 MG Tabs Commonly known as: ARICEPT Florastor 250 MG capsule Generic drug: saccharomyces boulardii glimepiride 4 MG tablet Commonly known as: AMARYL guaiFENesin 100 MG/5ML solution Commonly known as: ROBITUSSIN lisinopril 10 MG tablet Commonly known as: PRINIVIL Take 1 tablet (10 mg total) by mouth daily. loperamide 2 MG capsule Commonly known as: IMODIUM loratadine 10 MG tablet Commonly known as: CLARITIN Lyrica 150 MG capsule Generic drug: pregabalin Take 1 capsule (150 mg total) by mouth 2 (two) times a day. Mag-G tablet Generic drug: magnesium gluconate metoprolol tartrate 25 MG tablet Commonly known as: LOPRESSOR MILK OF MAGNESIA OR Namenda XR 28 MG 24 hr capsule Generic drug: memantine ER nystatin powder Commonly known as: MYCOSTATIN polyethylene glycol 17 GM/SCOOP powder Commonly known as: GLYCOLAX polyvinyl alcohol 1.4 % ophthalmic solution Commonly known as: LIQUIFILM/ARTIFICIAL TEARS potassium chloride CR 10 MEQ tablet Commonly known as: KLOR-CON M predniSONE 5 mg tablet Commonly known as: DELTASONE Thera-mill Tabs vitamin D2 (ergocalciferol) 54673 UNITS capsule Commonly known as: DRISDOL ASK your doctor about these medications cephALEXin 250 MG capsule Commonly known as: Keflex Take 1 capsule (250 mg total) by mouth 4 (four) times daily for 7 days. Ask about: Should I take this medication? Where to Get Your Medications You can get these medications from any pharmacy Bring a paper prescription for each of these medications ?? HYDROcodone-acetaminophen 5-325 MG tablet Medications Discontinued during this hospitalization: Medications Discontinued During This Encounter Medication Reason ??? hydrALAZINE (APRESOLINE) injection 10 mg ??? acetaminophen (TYLENOL) 325 MG tablet Error ??? dextromethorphan-guaifenesin 10-100 MG/5ML liquid Error ??? acetaminophen (TYLENOL) tablet 650 mg Ordering Physician ??? polyethylene glycol (GLYCOLAX) powder 17 g Ordering Physician ??? loratadine (CLARITIN) tablet 10 mg Formulary change ??? memantine ER (NAMENDA XR) 24 hr capsule 28 mg Formulary change ??? saccharomyces boulardii (FLORASTOR) capsule 250 mg Formulary change ??? cetirizine (ZyrTEC) tablet 5 mg Ordering Physician ??? amLODIPine (NORVASC) tablet 10 mg Ordering Physician ??? sodium chloride 0.45% infusion Ordering Physician Patient Instructions: Activity: as tolerated. Diet: Diet dysphagia Appropriate; DYSPHAGIA 1 (PUREE); Other (Specify) Therapy Ordered: No therapy plan of the specified type found. Follow-up appointments: No follow-ups on file. Followup Lab Orders: Time Spent on Discharge greater than 30 minutes. HAIDER BURROWS MD 08/01/2020 9:00 AM LATION ESTIMATOR documented in this encounter Discharge Instructions * Discharge Instructions* Brianna Gonzalez MD - 07/29/2020 6:47 AM INSULATION ESTIMATOR The blood test in the ER showed an elevated lactic acid and elevated glucose. Troponin was negative, the proBNP was normal the urine test was negative for signs of a UTI and the thyroid level was normal. The CT scan of the head and the chest x-ray did not show any acute abnormality. Patient did require some IV medication for her blood pressure and some IV fluids. The repeat lactate showed improvement and patient appeared to be at her baseline mental status uponarrival to the ER. If there is any concern for any new or concerning symptoms please have patient return to the ER immediately for repeat evaluation. LATION ESTIMATOR * Attachments The following attachments cannot be sent through Care Everywhere. * Altered Mental Status ([place]) documented in this encounter Medications at Time [...] polyneuropathy, without long-term current use of insulin ([facility]/HCC [facility]) Take 1 capsule (150 mg [...] daily. 10/06/2017 2 nystatin powder Apply topically as needed (irritation [...] (two) times daily. 2 vitamin D2, ergocalciferol, [address]171 UNITS capsule Take 2 capsules by mouth once a week. Thursday12/29/2017 0 documented as of this encounter Progress Notes * Madhavi Prajapati, ANA - 08/01/2020 10:31 AM CST 08/01/20 1031 Discharge Planning Living Arrangements Other (Comment) (alf) Support Systems Children;Family members Type of Residence alf Assistance Needed Yes IV Infusion at discharge No Home Care Services No Patient expects to be discharged to: [facility] Patient to discharge back to [facility] today. [facility] reports the bobcat driver/labor can pickup around 10:45-11:00. CM contacted patient son Osmar and updated him on plans. Reviewed Important Message from Medicare with patients son. The form was signed by the patients sonas having been received and understood. A copy of the form was left with patients son and a copy ofthe form was placed in the patient's skinny file for scanning. LATION ESTIMATOR * Cristal Santana RN - 08/01/2020 9:36 AM CST Problem: Reduced risk for falls/injury Goal: Reduced Risk for Falls/Injury Outcome: Adequate for Discharge Goal: Reduced Risk of Confusion (Acute vs Chronic) Outcome: Adequate for Discharge Goal: Reduced Risk of Symptomatic Depression Outcome: Adequate for Discharge Goal: Reduced Risk of Altered Elimination Outcome: Adequate for Discharge Goal: Reduced Risk of Dizziness/Vertigo/Balance Outcome: Adequate for Discharge Goal: Reduced Risk of Polypharmacy Outcome: Adequate for Discharge Problem: Discharge Planning Goal: Knowledge of discharge instructions Outcome: Adequate for Discharge Problem: Pain control/comfort Goal: Promote pain control/comfort Outcome: Adequate for Discharge Problem: Skin integrity, at risk Goal: Absence of new skin breakdown Outcome: Adequate for Discharge Problem: Moisture associated skin impairment Goal: Reduce moisture exposure Outcome: Adequate for Discharge Goal: Evidence of wound healing Outcome: Adequate for Discharge Goal: Evidence of pressure injury/ulcer healing Outcome: Adequate for Discharge Goal: Absence of new skin breakdown Outcome: Adequate for Discharge LATION ESTIMATOR * Terri Bell RN - 07/31/2020 1:48 PM CST [facility] for discharge planning @1100 with HOSPITALIST, SLAT GRADER, CM, UR, PASTORAL CARE, PHARMACY, CARDIOPULMONARY, OVERLOCK COLLAR SETTER, HH. Awaiting covid test results. Patient will return to [facility] LATION ESTIMATOR * Radha Laurent MD - 07/31/2020 12:12 PM CST Hospital Daily Progress Note History No complaints of sob or chest pain. Physical Exam Filed Vitals: 07/31/20 0100 07/31/20 0400 07/31/20 0732 07/31/20 0950 BP: 126/49 104/42 126/55 Pulse: 63 61 Resp: 16 18 Temp: 96.7 ??F (35.9 ??C) 96.8 ??F (36 ??C) TempSrc: Tympanic Tympanic SpO2: 93% 94% 97% Weight: 72.4 kg (159 lb 9.8 oz) Height: Intake/Output Summary (Last 24 hours) at 07/31/2020 1212 Last data filed at 07/31/2020 0950 Gross per 24 hour Intake 2360 ml Output 300 ml Net 2060 ml Physical Exam Constitutional: She appears well-developed and well-nourished. HENT: Head: Normocephalic and atraumatic. Eyes: Conjunctivae are normal. Neck: Neck supple. Cardiovascular: Normal rate, regular rhythm and normal heart sounds. Exam reveals no gallop. No murmur heard. Pulmonary/Chest: Effort normal and breath sounds normal. No respiratory distress. She has no wheezes. She has no rales. Abdominal: Soft. Bowel sounds are normal. There is no abdominal tenderness. There is no guarding. Neurological: She is alert. Weakness of legs Skin: Skin is warm. Psychiatric: She has a normal mood and affect. Lab Results Component Value Date NA 141 07/31/2020 K 3.1 (L) 07/31/2020 CL 107 07/31/2020 CO2 22.0 07/31/2020 AGAP 12.0 07/31/2020 BUN 16 07/31/2020 CR 0.75 07/31/2020 BUNCREATININ 21.3 07/31/2020 GFRNON 76 (L) 07/31/2020 GFR 88 (L) 07/31/2020 GLU 265 (H) 07/31/2020 CA 8.2 (L) 07/31/2020 Lab Results Component Value Date WBC 3.9 (L) 07/30/2020 HGB 14.3 07/30/2020 PLT 122 (L) 07/30/2020 Lab Results Component Value Date CHOL 147 03/02/2020 TRI 735 (H) 03/02/2020 HDL 41 03/02/2020 TP 5.6 (L) 07/30/2020 ALB 2.6 (L) 07/30/2020 ALT 110 (H) 07/30/2020 HGBA1C 8.7 (H) 06/07/2020 TSH 1.441 07/29/2020 Cultures: Blood: Results for orders placed or performed during the hospital encounter of 07/29/20 (from the past 168hour(s)) CULTURE, BACTERIA, BLOOD Collection Time: 07/29/20 8:26 AM Specimen: BLOOD Result Value Ref Range Spec. Description BLOOD Special Requests: NO SPECIAL REQUEST Culture Result: NO GROWTH 1 DAY CULTURE, BACTERIA, BLOOD Collection Time: 07/29/20 1:44 AM Specimen: BLOOD Result Value Ref Range Spec. Description BLOOD Special Requests: NO SPECIAL REQUEST Culture Result: NO GROWTH 1 DAY Urine: No results found for this visit on 07/29/20 (from the past 168 hour(s)). Respiratory: Ct Head Wo Con Result Date: 07/30/2020 IMPRESSION: No gross acute intracranial mass effect or bleed. Grossly stable exam to yesterday morning. Interpreted By: Shaan Guy,07/30/2020 8:54 PM Assessment Hypernatremia: Likely contributing to lethargy Suspect dehydration from recent infection IV fluid hydration w 09/29 normal saline Trend sodium Fall precautions 07/30 Tending lowerNa+ 151>150>148 07/31 Na+ 141 Hypokalemia 07/31 Suspect use of insulin is effective AMS 07/31 difficult to arouse at times drowsy usually awake in a.m. For breakfast Multiple Sclerosis 07/30 Bedbound 07/31 Patient reported she gets up in a wheelchair Dementia: Advanced dementia, oriented x1 at baseline Continue home regimen 07/30 At baseline Hypertension, hypertensive urgency Urgency noted on presentation Maintained on Norvasc, lisinopril, metoprolol Continue home regimen and adjust as clinically warranted 07/31 SBP less than 130 amlodipine on hold Diabetes mellitus Maintained on glimepiride Hold home regimen 07/30 Lispro SSI added 07/31 BS running high likely because glimepiride DC'd Hyperlipidemia: Statin therapy Recent UTI: On Keflex, will continue 07/30 Completing course of treatment tomorrow. CKD Suspect stage III Avoid nephrotoxic agents as clinically warranted Monitor Plan KCL supplementation NS with KCl Resume glimepiride Repeat BMP frantz. RADHA LAURENT MD LATION ESTIMATOR * Eagle Coe, RD - 07/30/2020 2:58 PM CST Dietitian Nutrition Assessment Emelina Santoyo, 1940, 80-year-old female admitted for Hypernatremia [E87.0] AMS (altered mental status) [R41.82]. Nutrition Recommendations: Nutrition Diagnosis: Inadequate oral intake related to decreased ability to consume adequate nutrition as evidenced by less than 25% of est needs per nurse Nutrition Intervention: Food and/or nutrient delivery using medical nutrition supplement ensure enlive BID Nutrition Prescription: Recommend to continue with an ONS of choice 1-2 per day upon discharge Nutrition Monitoring and Evaluation: PO intake to meet 75% of est needs Past Medical History Past Medical History: Diagnosis Date ??? Cholecystitis, unspecified 02/09/2019 ??? Chronic indwelling Zhang catheter Referral From: Nutrition Screening Assessment: Initial Assessment Anthropometrics: Wt Readings from Last 3 Encounters: 07/30/20 71.7 kg (158 lb 1.1 oz) 07/24/20 70.3 kg (155 lb) 09/01/19 69.1 kg (152 lb 6 oz) Ht Readings from Last 1 Encounters: 07/29/20 5' 6 (1.676 m) Body mass index is 25.51 kg/m??. BMI Assessment: Normal Hazel Body Weight: 130# Percent Hazel Body Weight: 121% Nutrition: Current Diet Order: Diet dysphagia Appropriate; DYSPHAGIA 1 (PUREE); Other (Specify) Diet Comment: spoke with nurse about patient unable to speak with patient Chewing/swallowing problems: Yes Food allergies/intolerances: none Cultural/Confucianist food preferences: none Current diet appropriate? Yes Current intake sufficient to meet nutritional needs? No Pain affecting PO intake? No Estimated Nutrient Needs: Calories: 1770 kcal/day, based on 25 kcal/kg Protein: 72 gm/day, based on 1.0gm/kg Fluid: 1770 ml/day, based on 25 ml/kg Labs: HGB A1C Date Value Ref Range Status 06/07/2020 8.7 (H) <5.7 % Final Comment: INCREASED RISK OF DIABETES <5.7% NON-DIABETES 5.7-6.4% INCREASED RISK FOR FUTURE DIABETES > OR = 6.5 CONSISTENT WITH DIABETES STANDARDS OF MEDICAL CARE IN DIABETES-2010 DIABETES CARE, 33(SUPP 1): S1-S61,2010 Nutrition Risk: Medium Inadequate Oral Intake Yes Unintended Weight Loss No Loss of Body Fat No Muscle Wasting No Fluid Accumulation No Discharge nutrition plan: Discharge needs assessed. Will provide/update discharge instructions as needed. (See Nutrition Prescription above) [address] 07/30/20, 2:58 PM LATION ESTIMATOR * Radha Laurent MD - 07/30/2020 2:04 PM CST Hospital Daily Progress Note History Denied any complaints Physical Exam Filed Vitals: 07/30/20 0500 07/30/20 0700 07/30/20 0743 07/30/20 1126 BP: 127/59 97/46 Pulse: 63 64 Resp: 20 18 Temp: 96 ??F (35.6 ??C) 97.7 ??F (36.5 ??C) TempSrc: Tympanic Tympanic SpO2: 93% 96% Weight: 71.7 kg (158 lb 1.1 oz) Height: Intake/Output Summary (Last 24 hours) at 07/30/2020 1404 Last data filed at 07/30/2020 1300 Gross per 24 hour Intake 240 ml Output 450 ml Net -210 ml Physical Exam Constitutional: She appears well-developed and well-nourished. HENT: Head: Atraumatic. Eyes: Conjunctivae are normal. Cardiovascular: Normal rate, regular rhythm and normal heart sounds. Exam reveals no gallop. No murmur heard. Pulmonary/Chest: Effort normal and breath sounds normal. She has no wheezes. She has no rales. She exhibits no tenderness. Abdominal: Soft. Bowel sounds are normal. She exhibits no distension. There is no abdominal tenderness. There is no guarding. Neurological: She is alert. Weakness of arm and legs Lab Results Component Value Date NA 148 (H) 07/30/2020 K 3.4 (L) 07/30/2020 CL 111 (H) 07/30/2020 CO2 27.3 07/30/2020 AGAP 9.7 07/30/2020 BUN 15 07/30/2020 CR 0.82 07/30/2020 BUNCREATININ 18.3 07/30/2020 GFRNON 69 (L) 07/30/2020 GFR 79 (L) 07/30/2020 GLU 247 (H) 07/30/2020 CA 8.3 (L) 07/30/2020 Lab Results Component Value Date WBC 3.9 (L) 07/30/2020 HGB 14.3 07/30/2020 PLT 122 (L) 07/30/2020 Lab Results Component Value Date CHOL 147 03/02/2020 TRI 735 (H) 03/02/2020 HDL 41 03/02/2020 TP 5.6 (L) 07/30/2020 ALB 2.6 (L) 07/30/2020 ALT 110 (H) 07/30/2020 HGBA1C 8.7 (H) 06/07/2020 TSH 1.441 07/29/2020 Cultures: Blood: Results for orders placed or performed during the hospital encounter of 07/29/20 (from the past 168hour(s)) CULTURE, BACTERIA, BLOOD Collection Time: 07/29/20 8:26 AM Specimen: BLOOD Result Value Ref Range Spec. Description BLOOD Special Requests: NO SPECIAL REQUEST Culture Result: NO GROWTH 1 DAY CULTURE, BACTERIA, BLOOD Collection Time: 07/29/20 1:44 AM Specimen: BLOOD Result Value Ref Range Spec. Description BLOOD Special Requests: NO SPECIAL REQUEST Culture Result: NO GROWTH 1 DAY Urine: No results found for this visit on 07/29/20 (from the past 168 hour(s)). Respiratory: Ct Head Wo Con Result Date: 07/29/2020 IMPRESSION: 1. No CT signs suggestive of acute intracranial bleed. 2. If an acute infarct is suspected and documentation is needed, or if symptoms persist, consider evaluation with MRI to further characterize. 3. White matter changes presumably secondary to chronic small vessel ischemic disease resembling the previous exam. Preliminary report rendered by Dr. Long Layne immediately after the examination was completed. Voice recognition software utilized. Electronically Signed By: Gautam Haro 07/29/2020 10:04 AM Interpreted By: Gautam Fernando 07/29/2020 10:03 AM Xr Chest Portable Result Date: 07/29/2020 FINDINGS AND IMPRESSION: CHEST: 1. The cardiomediastinal silhouette is not enlarged. Rotated exam 2. Chronic interstitial changes. No consolidation or overt failure. 3. No significant pleural effusion, no pneumothorax. 4. Dextrocurvature of the spine, osteopenia. Preliminary report rendered by Dr. Denys Amaya immediately after the examination was completed. Interpreted By: Gautam Fernando, 07/29/2020 10:04 AM Assessment Hypernatremia: Likely contributing to lethargy Suspect dehydration from recent infection IV fluid hydration w 09/29 normal saline Trend sodium Fall precautions 07/30 Tending lowerNa+ 151>150>148 Multiple Sclerosis 07/30 Bedbound Dementia: Advanced dementia, oriented x1 at baseline Continue home regimen 08/09 At baseline Hypertension, hypertensive urgency Urgency noted on presentation Maintained on Norvasc, lisinopril, metoprolol Continue home regimen and adjust as clinically warranted Diabetes mellitus Maintained on glimepiride Hold home regimen 07/30 Lispro SSI added Hyperlipidemia: Statin therapy Recent UTI: On Keflex, will continue 07/30 Completing course of treatment tomorrow. CKD Suspect stage III Avoid nephrotoxic agents as clinically warranted Monitor Plan Decrease IVF this evening Covid 19 test RADHA LAURENT MD LATION ESTIMATOR * ANA Weldon - 07/30/2020 12:55 PM CST Interdisciplinary Team conference held. In attendance; case management, UR, nursing, PT, OT, cardiopulmonary, OVERLOCK COLLAR SETTER, Hospitalist, Pastoral Care, and Pharmacy. Meeting held at 11:00. Plan to discharge back to [facility] once COVID results are back. faxed updates to [facility]. LATION ESTIMATOR * Marlys Sam RN - 07/30/2020 9:52 AM CST 07/30/20 0951 Anticipated DC Plan Living Arrangements Other (Comment) ([facility]) [facility] Assistance Needed No Patient expects to be discharged to: [facility] SPOKE WITH PATIENT'S SON. HE WOULD LIKE FOR PATIENT TO RETURN TO [facility] WHEN MEDICALLY STABLE. PATIENT IS RESIDENT AT [facility] LATION ESTIMATOR * Marlys Sam RN - 07/30/2020 9:44 AM CST 07/30/20 0925 Referral Data Referral Reason Discharge Planning Source of Information Family/Significant Other;Other (Comment) (SPOKE WITH PATIENT'S SON AND STAFF AT [facility]) Patient Information OB Patient < 19 yrs old No Primary Caregiver Other (Comment) ([facility]TERM) Support System Immediate family Baseline ADL's Functional Status Maximum assistance Living Arrangements Other (Comment) ([facility]TERM) Type of Residence alf ([facility]) Ambulation Assistance No Active DME Wheelchair Bathing/Grooming Assistance Yes Bathing/Grooming Maximum assistance Dressing Assistance Yes Dressing Maximum assistance Behavior Forgetful;Confused Communication Talks;Understands speaking;Understands Argentine Socioeconomic Needs Caregiver Needed No At Risk of Abuse or Neglect No Adequate Resources Yes Psychological Needs: Mental health concerns No Suspected Drug or Alcohol Abuse No Inappropriate Patient/Family Behaviors No Recent Hospitalization Recent Hospitalization within 30 days No Anticipated Discharge Needs Change in Living Arrangements No In-Home Care or Equipment No Vocational and/or Role Loss No Inability to Complete ADL's No Anticipated DC Plan Living Arrangements Other (Comment) ([facility]TERM) Support Systems Children Type of Residence alf Assistance Needed No Patient expects to be discharged to: [facility] Psychosocial Needs With Indication for Social Work Consult Diagnosis/prognosis resulting in poor adjustment or coping with illness No Diagnosis/prognosis with anticipated outcome of major lifestyle changes, including change in [facility] living environment No Family concerns/conflicts No Inadequate social and/or financial supports No Abuse and/or neglect of elder, adult or child No Psychiatric and/or substance abuse issues affecting current hospitalization No Homelessness with lack of safe discharge environment No Need for guardianship petition No Chaptered patient No PATIENT CONFUSED TO TIME AND PLACE. SPOKE WITH SON AND STAFF AT [facility]. SON STATEDHIS PLAN IS FOR PATIENT TO RETURN TO [facility] WHEN MEDICALLY STABLE. STAFF AT [facility] STATED PATIENT IS CONFUSED AT BASELINE. IS COMPLETE CARE WITH ALL ADLS. LATION ESTIMATOR documented in this encounter H&P Notes * Ana Maria Uriostegui NP - 07/29/2020 3:03 PM CST Hospitalist History and Physical Patient: Emelina Santoyo Date: 07/29/2020 female, 80-year-old Admit Date: 07/29/2020 Attending: Radha Laurent MD REASON FOR ADMISSION: Hypernatremia HISTORY OF PRESENT ILLNESS: Emelina Santoyo is a 80-year-old female who presented to the emergency department with concerns of lethargy and hypoxia at the intermediate. Patient has a past medical history of dementia with baseline orientation x1, diabetes, hypertension. Patient presented from intermediate with reports of lethargy. She was recently diagnosed with UTI and started on antibiotics. alf was providing antibiotics. Patient is a poor historian secondary to dementia. On my evaluation patient appears comfortable. Follows commands but not participatory with exam. Unsure of CODE STATUS, no record on file. Past Medical History: Diagnosis Date ??? Cholecystitis, unspecified 02/09/2019 ??? Chronic indwelling Zhang catheter No past surgical history on file. Medications Prior to Admission Medication Sig Dispense Refill ??? guaiFENesin 100 MG/5ML solution Take 100 mg by mouth every 4 (four) hours as needed for Cough. ??? nystatin powder Apply topically as needed (irritation under bilateral breasts and abd folds). ??? acetaminophen 325 MG tablet Take 650 mg by mouth every 4 (four) hours as needed for Pain. ??? amlodipine 10 MG tablet Take 1 tablet by mouth daily. ??? aspirin 81 MG chewable tablet Chew 1 tablet by mouth daily. ??? atorvastatin 40 MG tablet Take 80 mg by mouth daily. ??? cephALEXin (KEFLEX) 250 MG capsule Take 1 capsule (250 mg total) by mouth 4 (four) times daily for 7 days. 28 capsule 0 ??? cranberry 450 MG Tab tablet Take 450 mg by mouth daily. ??? cyanocobalamin 1000 MCG/ML injection Inject 1 mL into the muscle monthly. Give on ??? donepezil 10 MG Tab Take 10 mg by mouth 2 (two) times daily. ??? glimepiride 4 MG tablet Take 4 mg by mouth every morning before breakfast. ??? lisinopril 10 MG tablet Take 1 tablet (10 mg total) by mouth daily. 30 tablet 0 ??? loperamide 2 MG capsule Take 2 mg by mouth as needed for Diarrhea. 4 mg initially then 2 mg after each loose stool Max 16mg/24hrs ??? loratadine 10 MG tablet Take 1 [...] needed. For perineal discharge with incontinent episode ??? Multiple Vitamin (THERA-MILL) Tab Take 1 tablet by mouth daily. ??? polyethylene glycol powder Take 17 g by mouth daily as needed. Dissolve powder in 240 mL water ??? polyvinyl alcohol 1.4 % ophthalmic solution Place 1 drop into both eyes 3 (three) times daily. ??? potassium chloride CR 10 MEQ tablet Take 2 tablets by mouth daily. ??? predniSONE 5 mg tablet Take 5 mg by mouth daily. ??? saccharomyces boulardii (FLORASTOR) 250 MG capsule Take 1 capsule by mouth 2 (two) times daily. ??? vitamin D2, ergocalciferol, 14270 UNITS capsule Take 2 capsules by mouth once a week. Thursday Allergies Allergen Reactions ??? Metronidazole Unknown Social History: Social History Socioeconomic History ??? Marital status: Unknown Spouse name: Not on file ??? Number of children: Not on file ??? Years of education: Not on file ??? Highest education level: Not on file Occupational History ??? Not on file Social Needs ??? Financial resource strain: Not on file ??? Food insecurity Worry: Not on file Inability: Not on file ??? Transportation needs Medical: Not on file Non-medical: Not on file Tobacco Use ??? Smoking status: Unknown If Ever Smoked Substance and Sexual Activity ??? Alcohol use: Not on file ??? Drug use: Not on file ??? Sexual activity: Not on file Lifestyle ??? Physical activity Days per week: Not on file Minutes per session: Not on file ??? Stress: Not on file Relationships ??? Social connections Talks on phone: Not on file Gets together: Not on file Attends pentecostal service: Not on file Active member of club or organization: Not on file Attends meetings of clubs or organizations: Not on file Relationship status: Not on file ??? Intimate partner violence Fear of current or ex partner: Not on file Emotionally abused: Not on file Physically abused: Not on file Forced sexual activity: Not on file Other Topics Concern ??? Not on file Social History Narrative LIVES AT [facility] Family History Family history unknown: Yes Medication Management - Medication reconciliation reviewed and addressed. REVIEW OF SYSTEMS: A 14 point review of systems was taken and pertinent positive as per HPI PHYSICAL EXAMINATION: Vital 24 Hour Range Most Recent Value Temperature Temp Min: 96.4 ??F (35.8 ??C) Max: 98.1 ??F (36.7 ??C) 98.1 ??F (36.7 ??C) Pulse Pulse Min: 79 Max: 83 80 Respiratory Resp Min: 16 Max: 23 21 Blood Pressure BP Min: 146/72 Max: 230/120 149/75 Pulse Oximetry SpO2 Min: 94 % Max: 97 % 94 % O2 O2 Flow Rate (L/min) Av L/min Min: 1 L/min Min taken time: 07/29/20 0936 Max: 1 L/min Max taken time: 07/29/20 0936 Vital Most Recent Value First Value Weight 81.6 kg (180 lb) Weight: 81.6 kg (180 lb) Height 5' 6 (167.6 cm) Height: 5' 6 (167.6 cm) BMI 29.1 N/A GENERAL: no acute distress, well nourished, well developed HEENT: mucous membranes moist RESPIRATORY: respirations even and unlabored, clear breath sounds, no wheezes, or crackles noted CARDIAC: regular rate and rhythm, no murmur or JVD, no peripheral edema GI: nontender, nondistended, bowel sounds present, no obvious masses MUSC: ROM grossly intact NEURO: . Awake. Nonparticipating in neuro exam . Pupils equal, moving extremities freely SKIN: No rashes , skin is warm and dry LYMPH: No obvious lymphadenopathy PSYCH: Alert, appropriate LABS: Pertinent Labs reviewed in Epic. Recent Labs Lab 07/24/20201307/29/20 0144 NA 149* 151* K 4.3 3.9 CL 110* 112* CO2 22.8 26.4 AGAP 16.2* 12.6 BUN 20* 23* CR 1.07* 1.15* BUNCREATININ 18.7 20.0 GFRNON 50* 46* GFR 58* 53* GLU 347* 393* CA 9.6 9.8 Recent Labs Lab 07/24/20201307/29/20 0144 WBC 5.3 5.7 RBC 5.64* 5.43* HGB 16.8* 16.2* HCT 52.1* 49.9* MCV 92.4 91.9 MCH 29.8 29.8 MCHC 32.2 32.5 PLT 159 133* RDW 14.6 14.5 MPV 10.9 10.9 PERNEU 69.0 74.7* PERLYM 23.6 16.4 PERMON 6.0 5.5* LYMC 1.26 0.93 IMAGING & OTHER STUDIES: CT Head 07/29/2020: IMPRESSION: 1. No CT signs suggestive of acute intracranial bleed. 2. If an acute infarct is suspected and documentation is needed, or if symptoms persist, consider evaluation with MRI to further characterize. 3. White matter changes presumably secondary to chronic small vessel ischemic disease resembling the previous exam. CXR 07/29/2020: CHEST: 1. The cardiomediastinal silhouette is not enlarged. Rotated exam 2. Chronic interstitial changes. No consolidation or overt failure. 3. No significant pleural effusion, no pneumothorax. 4. Dextrocurvature of the spine, osteopenia. Results for orders placed or performed during the hospital encounter of 07/29/20 ECG 12 lead Narrative [facility] Test Date: 2020-07-29 Pat Name: EMELINA SANTOYO Department: Room: Gender: Female Equine Science Instructor: : 1940 Requested By: BRIANNA GONZALEZ Order Number: [id number] Reading MD: Measurements Intervals [place] Rate: 80 P: 0 CT: 121 QRS: 56 QRSD: 104 T: 53 QT: 397 QTc: 460 Interpretive Statements SINUS RHYTHM Compared to ECG 06/06/2016 13:24:27 T-wave abnormality no longer present Possible ischemia no longer present ASSESSMENT & PLAN: Hypernatremia: Likely contributing to lethargy Suspect dehydration from recent infection IV fluid hydration w 1/2 normal saline Trend sodium Fall precautions Dementia: Advanced dementia, oriented x1 at baseline Continue home regimen Hypertension, hypertensive urgency Urgency noted on presentation Maintained on Norvasc, lisinopril, metoprolol Continue home regimen and adjust as clinically warranted Diabetes mellitus Maintained on glimepiride Hold home regimen Hyperlipidemia: Statin therapy Recent UTI: On Keflex, will continue CKD Suspect stage III Avoid nephrotoxic agents as clinically warranted Monitor VTE prophylaxis with subcu heparin CODE STATUS unsure, will need to verify with nursing facility/family Sliding scale insulin for tight glycemic control Cosigned by Radha Laurent MD at 07/29/2020 10:17 PM INSULATION ESTIMATOR LATION ESTIMATOR LATION ESTIMATOR documented in this encounter Nursing Notes * Cristal Santana RN - 08/01/2020 10:47 AM CST Called report to JAH Lord at [facility] in regards to pt discharge. LATION ESTIMATOR documented in this encounter ED Notes * Bladimir Martin MD - 07/29/2020 7:34 AM CST Emergency Department Assumed Care Note Patient signed out to me by Dr Gonzalez. Briefly, Emelina Santoyo is a 80-year-old female is being evaluated for lethargy Vitals: 07/29/20 0721 BP: 150/76 Pulse: 83 Resp: 19 Temp: SpO2: 97% Progress notes: This patient had a UA and lactate pending. The patient's initial lactate was 2.7. After IV fluids it came down to 2.2. Patient has hyponatremia. Her sodium is 151. This may be why the patient is morelethargic. She does not appear to have any evidence of sepsis. I believe the elevated lactate is secondary to dehydration. The patient will be admitted to the hospitalist for further management. Clinical impression: SNOMED CT(R) 1. AMS (altered mental status) ALTERED MENTAL STATUS 2. Hypernatremia HYPERNATREMIA Disposition: Admit BLADIMIR MARTIN MD 07/29/2020 Bladimir Martin MD 07/29/20 0735 LATION ESTIMATOR * Brianna Gonzalez MD - 07/29/2020 2:00 AM CSTAssociated Order(s): EKG Reading Chief Complaint Chief Complaint Patient presents with ??? Altered Mental Status History of Present Illness Patient is a 80-year-old female past medical history of diabetes, hypertension, dementia baseline AO x1 who was brought to the ER via EMS for concern of lethargy at the intermediate and hypoxia. Patient was seen in the ER on July 24 and was diagnosed with a UTI. Patient was treated with Keflex which per the culture is adequate. Patient is unable to provide any history due to her dementia but when I asked her if anything is hurting her or bothering her patient states no and she feels fine. Medical History ALLERGIES: Allergies Allergen Reactions ??? Metronidazole Unknown MEDICATIONS: Prior to Admission medications Medication Sig Start Date End Date Taking? Authorizing Provider guaiFENesin 100 MG/5ML solution Take 100 mg by mouth every 4 (four) hours as needed for Cough. Yes Doc Abstract nystatin powder Apply topically as needed (irritation under bilateral breasts and abd folds). Yes Doc Abstract acetaminophen 325 MG tablet Take 650 mg by mouth every 4 (four) hours as needed for Pain. 04/04/19 Doc Abstract amlodipine 10 MG tablet Take 1 tablet by mouth daily. 07/30/15 Doc Abstract aspirin 81 MG chewable tablet Chew 1 tablet by mouth daily. 12/29/17 Doc Abstract atorvastatin 40 MG tablet Take 80 mg by mouth daily. 04/01/19 Doc Abstract cephALEXin (KEFLEX) 250 MG capsule Take 1 capsule (250 mg total) by mouth 4 (four) times daily for 7 days. 07/24/20 07/31/20 Radha Lee MD cranberry 450 MG Tab tablet Take 450 mg by mouth daily. Doc Abstract cyanocobalamin 1000 MCG/ML injection Inject 1 mL into the muscle monthly. Give on DocAbstract donepezil 10 MG Tab Take 10 mg by mouth 2 (two) times daily. Doc Abstract glimepiride 4 MG tablet Take 4 mg by mouth every morning before breakfast. Doc Abstract lisinopril 10 MG tablet Take 1 tablet (10 mg total) by mouth daily. 11/03/18 Frieda Wasserman MD loperamide 2 MG capsule Take 2 mg by mouth as needed for Diarrhea. 4 mg initially then 2 mg after each loose stool Max 16mg/24hrs Doc Abstract loratadine 10 MG tablet Take [...] needed. For perineal discharge with incontinent episode Doc Abstract Multiple Vitamin (THERA-MILL) Tab Take 1 tablet by mouth daily. 10/06/17 Doc Abstract polyethylene glycol powder Take 17 g by mouth daily as needed. Dissolve powder in 240 mL water Doc Abstract polyvinyl alcohol 1.4 % ophthalmic solution Place 1 drop into both eyes 3 (three) times daily. Doc Abstract potassium chloride CR 10 MEQ tablet Take 2 tablets by mouth daily. 12/29/17 Doc Abstract predniSONE 5 mg tablet Take 5 mg by mouth daily. 04/26/19 Doc Abstract saccharomyces boulardii (FLORASTOR) 250 MG capsule Take 1 capsule by mouth 2 (two) times daily. DocAbstract vitamin D2, ergocalciferol, 80435 UNITS capsule Take 2 capsules by mouth once a week. Thursday12/29/17Doc Abstract PAST MEDICAL HISTORY: Past Medical History: [...] perform ROS: Dementia Physical Exam Filed Vitals: 07/30/20 0500 07/30/20 0700 07/30/20 0743 07/30/20 1126 BP: 127/59 97/46 Pulse: 63 64 Resp: 20 18 Temp: 96 ??F (35.6 ??C) 97.7 ??F (36.5 ??C) TempSrc: Tympanic Tympanic SpO2: 93% 96% Weight: 71.7 kg (158 lb 1.1 oz) Height: Physical Exam Constitutional: General: She is not in acute distress. Appearance: She is not diaphoretic. HENT: Head: Normocephalic and atraumatic. Eyes: Conjunctiva/sclera: Conjunctivae normal. Neck: Musculoskeletal: Neck supple. Cardiovascular: Rate and Rhythm: Normal rate and regular rhythm. Pulmonary: Effort: Pulmonary effort is normal. Breath sounds: Normal breath sounds. Abdominal: General: Bowel sounds are normal. Palpations: Abdomen is soft. Tenderness: There is no abdominal tenderness. Musculoskeletal: General: No deformity. Skin: General: Skin is warm and dry. Capillary Refill: Capillary refill takes less than 2 seconds. Neurological: General: No focal deficit present. Mental Status: She is alert. Diagnostic Studies / Procedures ELECTROCARDIOGRAMS: Results for orders placed or performed during the hospital encounter of 07/29/20 ECG 12 lead Narrative [facility] Test Date: 2020-07-29 Pat Name: EMELINA SANTOYO Department: Room: 110 Gender: Female Equine Science Instructor: : 1940 Requested By: BRIANNA GONZALEZ Order Number: [id number] Reading MD: Aleksandr Blount Measurements Intervals [place] Rate: 80 P: 0 CT: 121 QRS: 56 QRSD: 104 T: 53 QT: 397 QTc: 460 Interpretive Statements SINUS RHYTHM Compared to ECG 06/06/2016 13:24:27 T-wave abnormality no longer present Possible ischemia no longer present LATION ESTIMATOR LABORATORY STUDIES: Results for orders placed or performed during the hospital encounter of 07/29/20 CBC W/DIFF AUTOMATED Result Value Ref Range WBC 5.7 4.4 - 11.0 x10'3/uL RBC 5.43 (H) 4.50 - 5.10 x10'6/uL HGB 16.2 (H) 12.3 - 15.3 G/DL HCT 49.9 (H) 35.9 - 44.6 % MCV 91.9 80.0 - 96.0 FL MCH 29.8 25.3 - 30.9 PG MCHC 32.5 31.0 - 34.1 G/DL RDW 14.5 12.4 - 15.1 % PLT 133 (L) 151 - 353 x10'3/uL MPV 10.9 9.6 - 12.0 FL RBC MORPHOLOGY NORMAL PLT MORPH. NORMAL WBC MORPHOLOGY NORMAL LYMPHOCYTES 16.4 15.8 - 45.0 % NEUTROPHILS 74.7 (H) 42.1 - 71.9 % MONOCYTES 5.5 (L) 5.7 - 12.5 % EOSINOPHILS 2.8 0.0 - 5.6 % BASOPHILS 0.2 0.0 - 1.3 % ABS. NEUTROPHILS TOTAL 4.23 1.40 - 6.00 x10'3/uL IMMATURE GRANS 0.4 0.0 - 0.5 % ABS. LYMPHOCYTES 0.93 0.80 - 4.70 x10'3/uL COMPREHENSIVE METABOLIC PANEL Result Value Ref Range GLUCOSE 393 (H) 70 - 99 MG/DL BUN 23 (H) 7 - 18 MG/DL CREATININE S/P/B 1.15 (H) 0.55 - 1.02 MG/DL SODIUM 151 (H) 136 - 145 MMOL/L POTASSIUM 3.9 3.5 - 5.1 MMOL/L CHLORIDE S/P/B 112 (H) 100 - 108 MMOL/L CO2 26.4 21 - 32 MMOL/L CALCIUM 9.8 8.5 - 10.1 MG/DL BILIRUBIN TOTAL S/P/B 0.8 0.2 - 1.2 MG/DL TOTAL PROTEIN S/P/B 7.0 6.4 - 8.2 G/DL ALBUMIN S/P/B 3.3 (L) 3.4 - 5.0 G/DL AST 56 (H) 15 - 37 U/L ALT 149 (H) 14 - 55 U/L ALKALINE PHOSPHATASE S/P/B 149 (H) 50 - 136 U/L ANION GAP 12.6 5 - 15 MMOL/L BUN CREATININE RATIO 20.0 6 - 26 A/G RATIO 0.9 (L) 1.0 - 2.0 RATIO eGFR Non-Afr. Amer. 46 (L) >90 ML/MIN/1.73 M2 eGFR Afr. Amer. 53 (L) >90 ML/MIN/1.73 M2 TROPONIN, QUANT Result Value Ref Range TROPONIN I <0.017 0.000 - 0.056 ng/mL. PRO-BRAIN NATRIURETIC PEPTIDE Result Value Ref Range Pro-B TYPE NATRIURETIC PEPTIDE 169 <450 PG/ML LACTIC ACID Result Value Ref Range LACTIC ACID 2.7 (HH) 0.4 - 2.0 MMOL/L LACTIC ACID Result Value Ref Range LACTIC ACID 2.2 (HH) 0.4 - 2.0 MMOL/L LACTIC ACID Result Value Ref Range LACTIC ACID 2.0 0.4 - 2.0 MMOL/L MAGNESIUM Result Value Ref Range MAGNESIUM 2.0 1.8 - 2.4 MG/DL TSH W/REFLEX Result Value Ref Range TSH 1.441 0.358 - 3.74 uIU/ML URINALYSIS, AUTO, COMPLETE Result Value Ref Range COLOR (U) YELLOW TRANSPARENCY CLEAR Specific [place] (U) 1.020 1.000 - 1.030 U PH 6.0 5.0 - 9.0 LEUKOCYTE ESTERASE NEGATIVE NEGATIVE NITRITES NEGATIVE NEGATIVE PROTEIN (U) NEGATIVE NEGATIVE URINE GLUCOSE 3+ (A) NEGATIVE U KETONES 1+ (A) NEGATIVE BILIRUBIN (U) NEGATIVE NEGATIVE BLOOD NEGATIVE NEGATIVE WBC/HPF NONE SEEN 0 - 5 /HPF RBC/HPF NONE SEEN 0 - 5 /HPF EPI/HPF FEW /HPF CULTURE & SENSITIVITY INDICATED? CULTURE IS NOT INDICATED BASIC METABOLIC PANEL Result Value Ref Range GLUCOSE 303 (H) 70 - 99 MG/DL BUN 17 7 - 18 MG/DL CREATININE S/P/B 0.85 0.55 - 1.02 MG/DL SODIUM 150 (H) 136 - 145 MMOL/L POTASSIUM 3.6 3.5 - 5.1 MMOL/L CHLORIDE S/P/B 111 (H) 100 - 108 MMOL/L CO2 24.6 21 - 32 MMOL/L CALCIUM 8.9 8.5 - 10.1 MG/DL ANION GAP 14.4 5 - 15 MMOL/L BUN CREATININE RATIO 20.0 6 - 26 eGFR Non-Afr. Amer. 66 (L) >90 ML/MIN/1.73 M2 eGFR Afr. Amer. 76 (L) >90 ML/MIN/1.73 M2 CBC W/DIFF AUTOMATED Result Value Ref Range WBC 3.9 (L) 4.4 - 11.0 x10'3/uL RBC 4.74 4.50 - 5.10 x10'6/uL HGB 14.3 12.3 - 15.3 G/DL HCT 43.8 35.9 - 44.6 % MCV 92.4 80.0 - 96.0 FL MCH 30.2 25.3 - 30.9 PG MCHC 32.6 31.0 - 34.1 G/DL RDW 14.2 12.4 - 15.1 % PLT 122 (L) 151 - 353 x10'3/uL MPV 10.8 9.6 - 12.0 FL RBC MORPHOLOGY NORMAL PLT MORPH. NORMAL WBC MORPHOLOGY NORMAL LYMPHOCYTES 33.9 15.8 - 45.0 % NEUTROPHILS 58.5 42.1 - 71.9 % MONOCYTES 5.4 (L) 5.7 - 12.5 % EOSINOPHILS 1.6 0.0 - 5.6 % BASOPHILS 0.3 0.0 - 1.3 % ABS. NEUTROPHILS TOTAL 2.27 1.40 - 6.00 x10'3/uL IMMATURE GRANS 0.3 0.0 - 0.5 % ABS. LYMPHOCYTES 1.31 0.80 - 4.70 x10'3/uL COMPREHENSIVE METABOLIC PANEL Result Value Ref Range GLUCOSE 247 (H) 70 - 99 MG/DL BUN 15 7 - 18 MG/DL CREATININE S/P/B 0.82 0.55 - 1.02 MG/DL SODIUM 148 (H) 136 - 145 MMOL/L POTASSIUM 3.4 (L) 3.5 - 5.1 MMOL/L CHLORIDE S/P/B 111 (H) 100 - 108 MMOL/L CO2 27.3 21 - 32 MMOL/L CALCIUM 8.3 (L) 8.5 - 10.1 MG/DL BILIRUBIN TOTAL S/P/B 0.7 0.2 - 1.2 MG/DL TOTAL PROTEIN S/P/B 5.6 (L) 6.4 - 8.2 G/DL ALBUMIN S/P/B 2.6 (L) 3.4 - 5.0 G/DL AST 76 (H) 15 - 37 U/L ALT 110 (H) 14 - 55 U/L ALKALINE PHOSPHATASE S/P/B 114 50 - 136 U/L ANION GAP 9.7 5 - 15 MMOL/L BUN CREATININE RATIO 18.3 6 - 26 A/G RATIO 0.9 (L) 1.0 - 2.0 RATIO eGFR Non-Afr. Amer. 69 (L) >90 ML/MIN/1.73 M2 eGFR Afr. Amer. 79 (L) >90 ML/MIN/1.73 M2 POCT glucose Result Value Ref Range GLUCOSE POC 232 (H) 70 - 110 mg/dL POCT glucose Result Value Ref Range GLUCOSE POC 340 (H) 70 - 110 mg/dL POCT glucose Result Value Ref Range GLUCOSE POC 388 (H) 70 - 110 mg/dL CULTURE, BACTERIA, BLOOD Specimen: BLOOD Result Value Ref Range Spec. Description BLOOD Special Requests: NO SPECIAL REQUEST Culture Result: NO GROWTH 1 DAY CULTURE, BACTERIA, BLOOD Specimen: BLOOD Result Value Ref Range Spec. Description BLOOD Special Requests: NO SPECIAL REQUEST Culture Result: NO GROWTH [address] HEAD WO CON Final Result by User, [id number] (07/29 1007) IMAGING STUDIES: CT HEAD WO CON DATE: 07/29/2020 2:13 AM COMPARISON STUDIES: 06/06/2016. CLINICAL HISTORY: Mental status change, unknown cause TECHNIQUE: Thin axial sections were acquired from the base to the vertex of the skull. IV contrast was not administered. Radiation dose reduction technique was utilized. FINDINGS: Visualized paranasal sinuses are clear. Mastoids appear well-aerated. No obvious acute depressed skull fracture. No obvious intraorbital lesions. Hyperostosis frontalis interna There is mild ventricular dilation and widening of the sulci consistent with age-related atrophic changes of the brain. Moderate periventricular and subcortical white matter changes are present bilaterally. No evidence of edema, mass effect, midline shift, extra-axial fluid collection or intracranial bleed. CT signs of acute ischemia might not be visible or obvious during the initial hours. IMPRESSION: 1. No CT signs suggestive of acute intracranial bleed. 2. If an acute infarct is suspected and documentation is needed, or if symptoms persist, consider evaluation with MRI to further characterize. 3. White matter changes presumably secondary to chronic small vessel ischemic disease resembling the previous exam. Preliminary report rendered by Dr. Long Layne immediately after the examination was completed. Voice recognition software utilized. Interpreted By: aGutam Fernando, 07/29/2020 10:03 AM XR CHEST PORTABLE Final Result by User, [id number] (07/29 1008) IMAGING STUDIES: XR CHEST PORTABLE EXAM DATE/TIME: 07/29/2020 2:12 AM COMPARISON STUDIES: 07/24/2020. CLINICAL HISTORY: AMS . Additional history FINDINGS AND IMPRESSION: CHEST: 1. The cardiomediastinal silhouette is not enlarged. Rotated exam 2. Chronic interstitial changes. No consolidation or overt failure. 3. No significant pleural effusion, no pneumothorax. 4. Dextrocurvature of the spine, osteopenia. Preliminary report rendered by Dr. Denys Amaya immediately after the examination was completed. Interpreted By: Gautam Fernando, 07/29/2020 10:04 AM EKG Reading Date/Time: 07/29/2020 2:11 AM Performed by: Brianna Gonzalez MD Authorized by: Brianna Gonzalez MD Interpreted by ED physician Comments: EKG at 135 shows sinus rhythm rate 80, no acute ischemic abnormality. ED Course / Medical Decision Making MDM Number of Diagnoses or Management Options Diagnosis management comments: Differential includes infectious etiology such as UTI versus pneumonia versus ACS versus CHF versus electrode abnormality versus intracranial pathology versus patient being at baseline mental status. ED Course as of Jul 30 1656 Sun Jul 29, 2020 021 WBC: 5.7 [HC] 0215 HGB(!): 16.2 [HC] 0215 PLT(!): 133 [HC] 0224 TROPONIN I: <0.017 [HC] 0224 LACTIC ACID(!!): 2.7 [HC] 0231 TSH: 1.441 [HC] 0231 Pro-B TYPE NATRIURETIC PEPTIDE: 169 [HC] 0231 MAGNESIUM: 2.0 [HC] 0324 Chest x-ray negative for acute abnormality [HC] 0645 LEUKOCYTE ESTERASE: NEGATIVE [HC] 0645 NITRITES: NEGATIVE [HC] 0645 WBC/HPF: NONE SEEN [HC] ED Course User Index [HC] Brianna Gonzalez MD Work-up in the ER was remarkable for lactic acidosis of 2.7 and hyperglycemia of 393. Patient appears to always be hypoglycemic on her prior admit. CT head and chest x-ray are negative for acute abnormality. Patient was given IV fluids and hydralazine for hypertension. Plan is to get a repeat lactate level and get a urinalysis. Patient has persistent UTI she may be failing outpatient antibiotics and may require inpatient admission for IV antibiotics. Patient may be signed out to oncoming physician for follow-up with results and ultimately disposition patient. Clinical Impression AMS (altered mental status) (Primary) Hypernatremia Disposition: Admit Brianna Gonzalez MD 07/29/20 0633 Brianna Gonzalez MD 07/30/20 1656 LATION ESTIMATOR LATION ESTIMATOR * Viji Ariza RN - 07/29/2020 1:56 AM CDT Patient sent [facility] from [facility] with complaints being lethargic. Patient recently seen herand discharged with UTI LATION ESTIMATOR documented in this encounter Plan of Treatment Not on file documented as of this encounter Goals Goal Patient Goal Type Associated Problems Recent Progress Patient-Stated? Author Establish Plan for Regular Lab Work General Marlys Berg RN documented as of this encounter Procedures Procedure Name Priority Date/Time Associated Diagnosis Comments BASIC METABOLIC PANEL Routine 08/01/2020 6:41 AM INSULATION ESTIMATOR POCT GLUCOSE - SHAFFER DOCKED DEVICE Routine 08/01/2020 6:29 AM INSULATION ESTIMATOR HC CLOSTRIDUM DIFFICILE Routine 07/31/20 10:38 PM INSULATION ESTIMATOR POCT GLUCOSE - SHAFFER DOCKED DEVICE Routine 07/31/2020 9:52 PM INSULATION ESTIMATOR POCT GLUCOSE - SHAFFER DOCKED DEVICE Routine 07/31/2020 4:39 PM INSULATION ESTIMATOR POCT GLUCOSE - SHAFFER DOCKED DEVICE Routine 07/31/2020 11:24 AM INSULATION ESTIMATOR BASIC METABOLIC PANEL Routine 07/31/2020 9:11 AM INSULATION ESTIMATOR POCT GLUCOSE - SHAFFER DOCKED DEVICE Routine 07/31/2020 6:35 AM INSULATION ESTIMATOR POCT GLUCOSE - SHAFFER DOCKED DEVICE Routine 07/30/2020 10:[address] HEAD WO CON Today 07/30/2020 8:52 PM INSULATION ESTIMATOR POCT GLUCOSE - SHAFFER DOCKED DEVICE Routine 07/30/2020 4:33 PM INSULATION ESTIMATOR CORONAVIRUS (COVID 19) Routine 0 11:50 AM INSULATION ESTIMATOR POCT GLUCOSE - SHAFFER DOCKED DEVICE Routine 07/30/2020 11:27 AM INSULATION ESTIMATOR POCT GLUCOSE - SHAFFER DOCKED DEVICE Routine 07/30/2020 7:44 AM INSULATION ESTIMATOR COMPREHENSIVE METABOLIC PANEL Routine 07/30/2020 6:27 AM INSULATION ESTIMATOR CBC W/DIFF AUTOMATED Routine 07/30/2020 6:27 AM INSULATION ESTIMATOR MRSA SCREENING Routine 07/29/2020 9:09 PM INSULATION ESTIMATOR BASIC METABOLIC PANEL STAT 07/29/2020 7:38 PM INSULATION ESTIMATOR LACTIC ACID STAT 07/29/2020 10:15 AM INSULATION ESTIMATOR CULTURE, BACTERIA, BLOOD STAT 020 8:26 AM INSULATION ESTIMATOR LACTIC ACID STAT 07/29/2020 6:35 AM INSULATION ESTIMATOR URINALYSIS, AUTO, COMPLETE STAT 07/29/2020 6:[address] HEAD WO CON STAT 07/29/2020 3:52 AM INSULATION ESTIMATOR XR CHEST PORTABLE STAT 07/29/2020 2:1 4 AM INSULATION ESTIMATOR ELECTROCARDIOGRAM REPORT Routine 020 2:00 AM INSULATION ESTIMATOR TSH W/REFLEX STAT 07/29/2020 1:44 AM CDT PRO-BRAIN NATRIURETIC PEPTIDE STAT 07/29/2020 1:44 AM CDT COMPREHENSIVE METABOLIC PANEL STAT 07/29/2020 1:44 AM CDT LACTIC ACID STAT 07/29/2020 1:44 AM CDT CULTURE, BACTERIA, BLOOD STAT 020 1:44 AM CDT CBC W/DIFF AUTOMATED STAT 07/29/2020 1:44 AM CDT TROPONIN, QUANT STAT 07/29/2020 1:44 AM CDT MAGNESIUM STAT 07/29/2020 1:44 AM CDT ECG 12-LEAD Routine 07/29/2020 1:35 AM CDT documented in this encounter Results * (ABNORMAL) BASIC METABOLIC PANEL (08/01/2020 6:41 AM INSULATION ESTIMATOR) GLUCOSE 269(H) 70 - 99 MG/DL 08/01/2020 7:36 AM [facility] BUN 15 7 - 18 MG/DL 08/01/2020 7:36 AM [facility] CREATININE S/P/B 0.80 0.55 - 1.02 MG/DL 08/01/2020 7:36 AM [facility] SODIUM S/P/B 146(H) 136 - 145 MMOL/L 08/01/2020 7:36 AM [facility] POTASSIUM S/P/B 3.4(L) 3.5 - 5.1 MMOL/L 08/01/2020 7:36 AM [facility] CHLORIDE S/P/B 112(H) 100 - 108 MMOL/L 08/01/2020 7:36 AM [facility] CO2 19.1(L) 21 - 32 MMOL/L 08/01/2020 7:36 AM [facility] CALCIUM S/P/B 8.3(L) 8.5 - 10.1 MG/DL 08/01/2020 7:36 AM [facility] ANION GAP 14.9 5 - 15 MMOL/L 08/01/2020 7:36 AM [facility] BUN CREATININE RATIO 18.8 6 - 26 08/01/2020 7:36 AM [facility] EGFR NON-AFR. AMER. 71(L) >90 ML/MIN/1.7 3 M2 08/01/2020 7:36 AM [facility] EGFR AFR. AMER. 82(L) >90 ML/MIN/1.7 3 M2 08/01/2020 7:36 AM [facility] Comment: NOTE: eGFR is not calculated for patients <18 years of age. This is an estimated GFR (CKD EPI) and should not be used for calculating drug doses. 08/01/2020 6:41 AM INSULATION ESTIMATOR us Radha Laurent MD LABORATORY Final Result Performing Organization Address City/[facility]/ZIP Co de Phone Number [facility] [address] [place] [address], * (ABNORMAL) POCT glucose (08/01/2020 6:29 AM INSULATION ESTIMATOR) [facility] GLUCOSE POC 243(H) 70 - 110 mg/dL 08/01/2020 6:31 AM [facility] 08/01/2020 6:29 AM INSULATION ESTIMATOR us Radha Laurent MD POCT ORDERABLES - DEVICE Final Result Performing Organization Address City/[facility]/ZIP Co de Phone Number [facility] [address] [place] [address], [place] [phone] * CLOSTRIDIUM DIFFICILE (07/31/2020 10:38 PM INSULATION ESTIMATOR) C DIFFICILE TOXIN (STOOL) NEGATIVE NEGATIVE 07/31/2020 11:35 PM INSULATION ESTIMATOR [facility] STOOL SPECIMEN / Unknown 07/31/2020 10:38 PM INSULATION ESTIMATOR us Michaela Hill MD BODY FLUIDS AND STOOLS ORDER GREG Final Result Performing Organization Address [facility] Co de Phone Number [facility] [address] [place] [address], [place] [phone] * (ABNORMAL) POCT glucose (07/31/2020 9:52 PM INSULATION ESTIMATOR) GLUCOSE POC 377(H) 70 - 110 mg/dL 07/31/2020 10:30 PM INSULATION ESTIMATOR [facility] 07/31/2020 9:52 PM INSULATION ESTIMATOR us Radha Laurent MD POCT ORDERABLES - DEVICE Final Result Performing Organization Address [facility] Co de Phone Number [facility] [address] [place] [address], [place] [phone] * (ABNORMAL) POCT glucose (07/31/2020 4:39 PM INSULATION ESTIMATOR) GLUCOSE POC 363(H) 70 - 110 mg/dL 07/31/2020 4:48 PM INSULATION ESTIMATOR [facility] 07/31/2020 4:39 PM INSULATION ESTIMATOR us Radha Laurent MD POCT ORDERABLES - DEVICE Final Result Performing Organization Address [facility] Co de Phone Number [facility] [address] [place] [address], * (ABNORMAL) POCT glucose (07/31/2020 11:24 AM INSULATION ESTIMATOR) GLUCOSE POC 319(H) 70 - 110 mg/dL 07/31/2020 11:41 AM [facility] 07/31/2020 11:2 4 AM INSULATION ESTIMATOR Radha Laurent MD POCT ORDERABLES - DEVICE Final Result [facility] [address] [place] [address], * (ABNORMAL) BASIC METABOLIC PANEL (07/31/2020 9:11 AM INSULATION ESTIMATOR) GLUCOSE 265(H) 70 - 99 MG/DL 07/31/2020 9:54 AM [facility] BUN 16 7 - 18 MG/DL 07/31/2020 9:54 AM [facility] CREATININE S/P/B 0.75 0.55 - 1.02 MG/DL 07/31/2020 9:54 AM [facility] SODIUM S/P/B 141 136 - 145 MMOL/L 07/31/2020 9:54 AM [facility] POTASSIUM S/P/B 3.1(L) 3.5 - 5.1 MMOL/L 07/31/2020 9:54 AM [facility] CHLORIDE S/P/B 107 100 - 108 MMOL/L 07/31/2020 9:54 AM [facility] CO2 22.0 21 - 32 MMOL/L 07/31/2020 9:54 AM [facility] CALCIUM S/P/B 8.2(L) 8.5 - 10.1 MG/DL 07/31/2020 9:54 AM [facility] ANION GAP 12.0 5 - 15 MMOL/L 07/31/2020 9:54 AM [facility] BUN CREATININE RATIO 21.3 6 - 26 07/31/2020 9:54 AM [facility] EGFR NON-AFR. AMER. 76(L) >90 ML/MIN/1.7 3 M2 07/31/2020 9:54 AM [facility] EGFR AFR. AMER. 88(L) >90 ML/MIN/1.7 3 M2 07/31/2020 9:54 AM [facility] Comment: NOTE: eGFR is not calculated for patients <18 years of age. This is an estimated GFR (CKD EPI) and should not be used for calculating drug doses. 07/31/2020 9:11 AM INSULATION ESTIMATOR us Radha Laurent MD LABORATORY Final Result Performing Organization Address City/[facility]/ZIP Co de Phone Number [facility] [address] [place] [address], [place] [phone] * (ABNORMAL) POCT glucose (07/31/2020 6:35 AM INSULATION ESTIMATOR) GLUCOSE POC 167(H) 70 - 110 mg/dL 07/31/2020 6:41 AM [facility] 07/31/2020 6:35 AM INSULATION ESTIMATOR us Radha Laurent MD POCT ORDERABLES - DEVICE Final Result Performing Organization Address City/[facility]/ZIP Co de Phone Number [facility] [address] [place] [address], [place] [phone] * (ABNORMAL) POCT glucose (07/30/2020 10:01 PM INSULATION ESTIMATOR) GLUCOSE POC 205(H) 70 - 110 mg/dL 07/30/2020 10:15 PM INSULATION ESTIMATOR [facility] 07/30/2020 10:0 1 PM INSULATION ESTIMATOR us Radha Laurent MD POCT ORDERABLES - DEVICE Final Result [facility] ([facility] [address] [place] [address], [place] [phone] * CT HEAD WO CON (07/30/2020 8:52 PM INSULATION ESTIMATOR) Anatomical Region Laterality Modality Head Computed Tomogra phy 07/30/2020 8:54 PM INSULATION ESTIMATOR Impressions 07/30/2020 8:56 PM INSULATION ESTIMATOR IMPRESSION: No gross acute intracranial mass effect or bleed. Grossly stable exam to yesterday morning. Interpreted By: Shaan Guy, 07/30/2020 8:54 PM Narrative 07/30/2020 8:56 PM INSULATION ESTIMATOR Radiation dose reduction technique used HISTORY: Delirium COMPARISON: Head CT from yesterday Report: No intracranial mass effect, abnormal extra-axial fluid correlation or acute hemorrhage. Diffuse volume loss disproportionately affecting the ventricles again noted. Hypoattenuating white matter changes appear similar. Orbital periorbital paranasal calvarial structures also grossly stable. Procedure Note Shaan Guy MD - 07/30/2020 Radiation dose reduction technique used HISTORY: Delirium COMPARISON: Head CT from yesterday Report: No intracranial mass effect, abnormal extra-axial fluidcorrelation or acute hemorrhage. Diffuse volume loss disproportionately affectingthe ventricles again noted. Hypoattenuating white matter changes appear similar. Orbital periorbital paranasal calvarial structures also grossly stable. IMPRESSION: No gross acute intracranial mass effect or bleed. Grossly stable exam to yesterday morning. Interpreted By: Shaan Guy, 07/30/2020 8:54 PM us Radha Laurent MD CT Final Result * (ABNORMAL) POCT glucose (07/30/2020 4:33 PM INSULATION ESTIMATOR) GLUCOSE POC 388(H) 70 - 110 mg/dL 07/30/2020 4:46 PM INSULATION ESTIMATOR [facility] ([facility] 07/30/2020 4:33 PM INSULATION ESTIMATOR Radha Laurent MD POCT ORDERABLES - DEVICE Final Result [facility] [address] [place] [address], * PRE-SURGICAL/PRE-PROCEDURE CORONAVIRUS (COVID 19) (07/30/2020 11:50 AM INSULATION ESTIMATOR) CORONAVIRUS SARS COV 2 PCR (RESP) NOT DETECTED NOT DETECTED 07/31/2020 10:35 PM INSULATION ESTIMATOR [facility] Comment: A Not Detected (negative) test result for this test means that SARS- CoV-2 RNA was not present in the specimen above the limit of detection. A negative result does not rule out the possibility of COVID-19 and should not be used as the sole basis for treatment or patient management decisions. ??If COVID-19 is still suspected, based on exposure history together with other clinical findings, re-testing should be considered in consultation with public health authorities. Laboratory test results should always be considered in the context of clinical observations and epidemiological data in making a final diagnosis and patient management decisions. Please review the Fact Sheets and FDA authorized labeling available for health care providers and patients using the following websites: https://www.[facility].com/home/Covid-19/HCP/NAAT/fact-sheet2 https://www.[facility]/home/Covid-19/Patients/NAAT/ fact-sheet2 This test has been authorized by the FDA under an Emergency Use Authorization (EUA) for use by authorized laboratories. Due to the current public health emergency, [facility] is receiving a high volume of samples from a wide variety of swabs and media for COVID-19 testing. In order to serve patients during this public health crisis, samples from appropriate clinical sources are being tested. Negative test results derived from specimens received in non-commercially manufactured viral collection and transport media, or in media and sample collection kits not yet authorized by FDA for COVID-19 testing should be cautiously evaluated and the patient potentially subjected to extra precautions such as additional clinical monitoring, including collection of an additional specimen. Methodology: ??Nucleic Acid Amplification Test (NAAT) includes RT-PCR or TMA Additional information about COVID-19 can be found at the [facility] website: www.[facility] Information/Covid19. Test performed at [facility] [id number] [place] [address] ??[id number] Director: BINU YBARRA DO,MPH FIRST TEST NO 07/30/2020 11:52 AM [facility] EMPLOYED IN HEALTHCARE NO 07/30/2020 11:52 AM [facility] SYMPTOMATIC DEFINED BY CDC NO 07/30/2020 11:52 AM [facility] HOSPITALIZATION STATUS NO 07/30/2020 11:52 AM [facility] RESIDENT OF [facility] YES 07/30/2020 11:52 AM [facility] NO 07/30/2020 12:01 PM INSULATION ESTIMATOR [facility] PATIENT'S RACE WHITE OR 07/30/2020 11:52 AM INSULATION ESTIMATOR [facility] ETHNICITY NONHISPANIC 07/30/2020 11:52 AM [facility] SOURCE (QST) NASOPHARYNGEAL SWAB 07/30/2020 11:52 AM INSULATION ESTIMATOR [facility] NASOPHARYNGEAL SWAB / Unknown 07/30/2020 11:50 AM INSULATION ESTIMATOR us Radha Laurent MD MICROBIOLOGY - GENERAL ORDERAB LES Final Result [facility] [address] [place] [address], [place] [phone] [address], [place] * (ABNORMAL) POCT glucose (07/30/2020 11:27 AM INSULATION ESTIMATOR) GLUCOSE POC 340(H) 70 - 110 mg/dL 07/30/2020 12:38 PM INSULATION ESTIMATOR [facility] 07/30/2020 11:2 7 AM INSULATION ESTIMATOR us Radha Laurent MD POCT ORDERABLES - DEVICE Final Result Performing Organization Address [facility]/ZIP Co de Phone Number [facility] [address] [place] [address], [place] [phone] * (ABNORMAL) POCT glucose (07/30/2020 7:44 AM INSULATION ESTIMATOR) GLUCOSE POC 232(H) 70 - 110 mg/dL 07/30/2020 7:52 AM [facility] 07/30/2020 7:44 AM INSULATION ESTIMATOR us Radha Laurent MD POCT ORDERABLES - DEVICE Final Result Performing Organization Address [facility] Co de Phone Number [facility] [address] [place] [address], [place] [phone] * (ABNORMAL) COMPREHENSIVE METABOLIC PANEL (07/30/2020 6:27 AM INSULATION ESTIMATOR) GLUCOSE 247(H) 70 - 99 MG/DL 07/30/2020 8:39 AM [facility] BUN 15 7 - 18 MG/DL 07/30/2020 8:39 AM [facility] CREATININE S/P/B 0.82 0.55 - 1.02 MG/DL 07/30/2020 8:39 AM [facility] SODIUM S/P/B 148(H) 136 - 145 MMOL/L 07/30/2020 8:39 AM [facility] POTASSIUM S/P/B 3.4(L) 3.5 - 5.1 MMOL/L 07/30/2020 8:39 AM [facility] CHLORIDE S/P/B 111(H) 100 - 108 MMOL/L 07/30/2020 8:39 AM [facility] CO2 27.3 21 - 32 MMOL/L 07/30/2020 8:39 AM [facility] CALCIUM S/P/B 8.3(L) 8.5 - 10.1 MG/DL 07/30/2020 8:39 AM [facility] BILIRUBIN TOTAL S/P/B 0.7 0.2 - 1.2 MG/DL 07/30/2020 8:39 AM [facility] TOTAL PROTEIN S/P/B 5.6(L) 6.4 - 8.2 G/DL 07/30/2020 8:39 AM [facility] ALBUMIN S/P/B 2.6(L) 3.4 - 5.0 G/DL 07/30/2020 8:39 AM [facility] AST 76(H) 15 - 37 U/L 07/30/2020 8:39 AM [facility] ALT 110(H) 14 - 55 U/L 07/30/2020 8:39 AM [facility] ALKALINE PHOSPHATASE S/P/B 114 50 - 136 U/L 07/30/2020 8:39 AM [facility] ANION GAP 9.7 5 - 15 MMOL/L 07/30/2020 8:39 AM [facility] BUN CREATININE RATIO 18.3 6 - 26 07/30/2020 8:39 AM [facility] A/G RATIO 0.9(L) 1.0 - 2.0 RATIO 07/30/2020 8:39 AM [facility] EGFR NON-AFR. AMER. 69(L) >90 ML/MIN/1.7 3 M2 07/30/2020 8:39 AM [facility] EGFR AFR. AMER. 79(L) >90 ML/MIN/1.7 3 M2 07/30/2020 8:39 AM [facility] Comment: NOTE: eGFR is not calculated for patients <18 years of age. This is an estimated GFR (CKD EPI) and should not be used for calculating drug doses. 07/30/2020 6:27 AM INSULATION ESTIMATOR Ana Maria Uriostegui NP LABORATORY Final Result [facility] [address] [place] [address], * (ABNORMAL) CBC W/DIFF AUTOMATED (07/30/2020 6:27 AM INSULATION ESTIMATOR) WBC 3.9(L) 4.4 - 11.0 x10'3/uL 07/30/2020 9:05 AM [facility] RBC 4.74 4.50 - 5.10 x10'6/uL 07/30/2020 9:05 AM [facility] HGB 14.3 12.3 - 15.3 G/DL 07/30/2020 9:05 AM [facility] HCT 43.8 35.9 - 44.6 % 07/30/2020 9:05 AM [facility] MCV 92.4 80.0 - 96.0 FL 07/30/2020 9:05 AM [facility] MCH 30.2 25.3 - 30.9 PG 07/30/2020 9:05 AM [facility] MCHC 32.6 31.0 - 34.1 G/DL 07/30/2020 9:05 AM [facility] RDW 14.2 12.4 - 15.1 % 07/30/2020 9:05 AM [facility] PLT 122(L) 151 - 353 x10'3/uL 07/30/2020 9:05 AM [facility] MPV 10.8 9.6 - 12.0 FL 07/30/2020 9:05 AM [facility] RBC MORPHOLOGY NORMAL 07/30/2020 9:05 AM [facility] PLT MORPH. NORMAL 07/30/2020 9:05 AM [facility] WBC MORPHOLOGY NORMAL 07/30/2020 9:05 AM [facility] LYMPHOCYTES % 33.9 15.8 - 45.0 % 07/30/2020 9:05 AM [facility] NEUTROPHILS % 58.5 42.1 - 71.9 % 07/30/2020 9:05 AM [facility] MONOCYTES % 5.4(L) 5.7 - 12.5 % 07/30/2020 9:05 AM [facility] EOSINOPHILS 1.6 0.0 - 5.6 % 07/30/2020 9:05 AM [facility] BASOPHILS 0.3 0.0 - 1.3 % 07/30/2020 9:05 AM [facility] ABS. NEUTROPHILS TOTAL 2.27 1.40 - 6.00 x10'3/uL 07/30/2020 9:05 AM [facility] IMMATURE GRANS % 0.3 0.0 - 0.5 % 07/30/2020 9:05 AM [facility] ABS. LYMPHOCYTES 1.31 0.80 - 4.70 x10'3/uL 07/30/2020 9:05 AM [facility] 07/30/2020 6:27 AM INSULATION ESTIMATOR Ana Maria Uriostegui NP LABORATORY Final Result [facility] [address] [place] [address], [place] [phone] * MRSA SCREENING (07/29/2020 9:09 PM INSULATION ESTIMATOR) SPEC DESCRIPTION NASAL 07/29/2020 8:50 PM INSULATION ESTIMATOR [facility] SPECIAL REQUESTS NO SPECIAL REQUEST 07/29/2020 8:50 PM INSULATION ESTIMATOR [facility] CULTURE RESULT NO MRSA ISOLATED 07/30/2020 10:06 PM INSULATION ESTIMATOR [facility] SPECIMEN FROM INTERNAL NOSE / Unknown 07/29/2020 9:09 PM INSULATION ESTIMATOR 07/29/2020 9:10 PM INSULATION ESTIMATOR Radha Laurent MD MICROBIOLOGY - GENERAL ORDERAB LES Final Result [facility] [address] [place] [address], [place] [phone] * (ABNORMAL) BASIC METABOLIC PANEL (07/29/2020 7:38 PM INSULATION ESTIMATOR) GLUCOSE 303(H) 70 - 99 MG/DL 07/29/2020 7:48 PM [facility] BUN 17 7 - 18 MG/DL 07/29/2020 7:48 PM [facility] CREATININE S/P/B 0.85 0.55 - 1.02 MG/DL 07/29/2020 7:48 PM [facility] SODIUM S/P/B 150(H) 136 - 145 MMOL/L 07/29/2020 7:48 PM [facility] POTASSIUM S/P/B 3.6 3.5 - 5.1 MMOL/L 07/29/2020 7:48 PM [facility] CHLORIDE S/P/B 111(H) 100 - 108 MMOL/L 07/29/2020 7:48 PM [facility] CO2 24.6 21 - 32 MMOL/L 07/29/2020 7:48 PM [facility] CALCIUM S/P/B 8.9 8.5 - 10.1 MG/DL 07/29/2020 7:48 PM [facility] ANION GAP 14.4 5 - 15 MMOL/L 07/29/2020 7:48 PM [facility] BUN CREATININE RATIO 20.0 6 - 26 07/29/2020 7:48 PM [facility] EGFR NON-AFR. AMER. 66(L) >90 ML/MIN/1.7 3 M2 07/29/2020 7:48 PM [facility] EGFR AFR. AMER. 76(L) >90 ML/MIN/1.7 3 M2 07/29/2020 7:48 PM [facility] Comment: NOTE: eGFR is not calculated for patients <18 years of age. This is an estimated GFR (CKD EPI) and should not be used for calculating drug doses. 07/29/2020 7:38 PM INSULATION ESTIMATOR Ana Maria Uriostegui NP LABORATORY Final Result [facility] [address] [place] [address], [place] [phone] * LACTIC ACID (07/29/2020 10:15 AM INSULATION ESTIMATOR) LACTIC ACID VENOUS 2.0 0.4 - 2.0 MMOL/L 07/29/2020 10:36 AM INSULATION ESTIMATOR [facility] 07/29/2020 10:1 5 AM INSULATION ESTIMATOR Brianna Gonzalez MD LABORATORY Final Result [facility] [address] [place] [address], [place] [phone] * CULTURE, BACTERIA, BLOOD (07/29/2020 8:26 AM INSULATION ESTIMATOR) SPEC DESCRIPTION BLOOD 07/29/2020 2:06 AM INSULATION ESTIMATOR [facility] SPECIAL REQUESTS NO SPECIAL REQUEST 07/29/2020 2:06 AM INSULATION ESTIMATOR [facility] CULTURE RESULT NO GROWTH 6 DAYS 08/04/2020 6:[address] [facility] BLOOD SPECIMEN OBTAINED FOR BLOOD CULTURE / Unknown 07/29/2020 8:26 AM INSULATION ESTIMATOR 07/29/2020 8:29 AM INSULATION ESTIMATOR us Brianna Gonzalez MD MICROBIOLOGY - GENERAL ORDERA BLES Final Result Performing Organization Address [facility] Co de Phone Number [facility] [address] [place] [address], [place] [phone] [facility] [address] [place] [address], [place] [phone] * (ABNORMAL) LACTIC ACID (07/29/2020 6:35 AM INSULATION ESTIMATOR) Pathologist [facility] LACTIC ACID VENOUS 2.2(HH) 0.4 - 2.0 MMOL/L 07/29/2020 7:00 AM INSULATION ESTIMATOR [facility] Comment: LEONCIO CALLED CRITICAL RESULTS AT 29Jul2020 TO AND READ BACK BY MARIBEL TYSON IN ER AN ORDER FOR A REPEAT LACTIC ACID IS REQUIRED WITHIN 6 HOURS OF DIAGNOSIS ON A PATIENT WITH SEVERE SEPSIS. 07/29/2020 6:35 AM INSULATION ESTIMATOR us Brianna Gonzalez MD LABORATORY Final Result Performing Organization Address [facility]/ZIP Co de Phone Number [facility] [address] [place] [address], [place] [phone] * (ABNORMAL) URINALYSIS, AUTO, COMPLETE (07/29/2020 6:28 AM [facility]) COLOR (U) YELLOW 07/29/2020 6:42 AM [facility] TRANSPARENCY CLEAR 07/29/2020 6:42 AM [facility] SPECIFIC GRAVITY (U) 1.020 1.000 - 1.030 07/29/2020 6:42 AM [facility] U PH 6.0 5.0 - 9.0 07/29/2020 6:42 AM [facility] LEUKOCYTES (U) NEGATIVE NEGATIVE 07/29/2020 6:42 AM [facility] NITRITES NEGATIVE NEGATIVE 07/29/2020 6:42 AM [facility] PROTEIN (U) NEGATIVE NEGATIVE 07/29/2020 6:42 AM [facility] URINE GLUCOSE 3+(A) NEGATIVE 07/29/2020 6:42 AM [facility] KETONES MG/DL (U) 1+(A) NEGATIVE 07/29/2020 6:42 AM [facility] BILIRUBIN (U) NEGATIVE NEGATIVE 07/29/2020 6:42 AM [facility] BLOOD (U) NEGATIVE NEGATIVE 07/29/2020 6:42 AM [facility] WBC/HPF NONE SEEN 0 - 5 /HPF 07/29/2020 6:42 AM [facility] RBC/HPF NONE SEEN 0 - 5 /HPF 07/29/2020 6:42 AM [facility] EPI/HPF FEW /HPF 07/29/2020 6:42 AM [facility] CULTURE & SENSITIVITY INDICATED? CULTURE IS NOT INDICATED 07/29/2020 6:42 AM [facility] URINE, STRAIGHT CATH 07/29/2020 6:28 AM INSULATION ESTIMATOR Brianna Gonzalez MD URINE ORDERABLES Final Result [facility] [address] [place] [address], * CT HEAD WO CON (07/29/2020 3:52 AM INSULATION ESTIMATOR) Anatomical Region Laterality Modality Head Computed Tomogra phy 07/29/2020 10:0 3 AM INSULATION ESTIMATOR Impressions 07/29/2020 10:04 AM INSULATION ESTIMATOR IMPRESSION: 1. ??No CT signs suggestive of acute intracranial bleed. 2. ??If an acute infarct is suspected and documentation is needed, or if symptoms persist, consider evaluation with MRI to further characterize. 3. ??White matter changes presumably secondary to chronic small vessel ischemic disease resembling the previous exam. Preliminary report rendered by Dr. Long Layne immediately after the examination was completed. Voice recognition software utilized. Interpreted By: Gautam Fernando, 07/29/2020 10:03 AM Narrative 07/29/2020 10:04 AM INSULATION ESTIMATOR IMAGING STUDIES: ??CT HEAD WO CON ? DATE: ??07/29/2020 2:13 AM COMPARISON STUDIES: 06/06/2016. ?? CLINICAL HISTORY: ??Mental status change, unknown cause ? TECHNIQUE: Thin axial sections were acquired from the base to the vertex of the skull. IV contrast was not administered. Radiation dose reduction technique was utilized. FINDINGS: Visualized paranasal sinuses are clear. Mastoids appear well-aerated. No obvious acute depressed skull fracture. No obvious intraorbital lesions. Hyperostosis frontalis interna There is mild ventricular dilation and widening of the sulci consistent with age-related atrophic changes of the brain. Moderate periventricular and subcortical white matter changes are present bilaterally. ? No evidence of edema, mass effect, midline shift, extra-axial fluid collection or intracranial bleed. CT signs of acute ischemia might not be visible or obvious during the initial hours. Procedure Note Gautam Fernando MD - 07/29/2020 IMAGING STUDIES: CT HEAD WO CON DATE: 07/29/2020 2:13 AM COMPARISON STUDIES: 06/06/2016. CLINICAL HISTORY: Mental status change, unknown cause TECHNIQUE: Thin axial sections were acquired from the base to the vertexof the skull. IV contrast was not administered. Radiation dose reduction technique was utilized. FINDINGS: Visualized paranasal sinuses are clear. Mastoids appear well-aerated. No obvious acute depressed skull fracture. No obvious intraorbital lesions. Hyperostosis frontalis interna There is mild ventricular dilation and widening of the sulci consistent with age-related atrophic changes of the brain. Moderate periventricular and subcortical white matter changes are present bilaterally. No evidence of edema, mass effect, midline shift, extra-axial fluid collection or intracranial bleed. CT signs of acute ischemia might notbe visible or obvious during the initial hours. IMPRESSION: 1. No CT signs suggestive of acute intracranial bleed. 2. If an acute infarct is suspected and documentation is needed, or if symptoms persist, consider evaluation with MRI to further characterize. 3. White matter changes presumably secondary to chronic small vessel ischemic disease resembling the previous exam. Preliminary report rendered by Dr. Long Layne immediately after the examination was completed. Voice recognition software utilized. Interpreted By: Gautam Fernando, 07/29/2020 10:03 AM Brianna Gonzalez MD CT Final Result * XR CHEST PORTABLE (07/29/2020 2:14 AM INSULATION ESTIMATOR) Anatomical Region Laterality Modality Chest Radiographic Marlene ging 07/29/2020 10:0 4 AM INSULATION ESTIMATOR Impressions 07/29/2020 10:05 AM INSULATION ESTIMATOR FINDINGS AND IMPRESSION: CHEST: 1. ??The cardiomediastinal silhouette is not enlarged. Rotated exam 2. ??Chronic interstitial changes. No consolidation or overt failure. ? 3. ??No significant pleural effusion, no pneumothorax. 4. ??Dextrocurvature of the spine, osteopenia. Preliminary report rendered by Dr. Denys Amaya immediately after the examination was completed. Interpreted By: Gautam Fernando, 07/29/2020 10:04 AM Narrative 07/29/2020 10:05 AM INSULATION ESTIMATOR IMAGING STUDIES: ??XR CHEST PORTABLE ? EXAM DATE/TIME: 07/29/2020 2:12 AM COMPARISON STUDIES: ??07/24/2020. CLINICAL HISTORY: ??AMS ?? . Additional history Procedure Note Gautam Fernando MD - 07/29/2020 IMAGING STUDIES: XR CHEST PORTABLE EXAM DATE/TIME: 07/29/2020 2:12 AM COMPARISON STUDIES: 07/24/2020. CLINICAL HISTORY: AMS . Additional history FINDINGS AND IMPRESSION: CHEST: 1. The cardiomediastinal silhouette is not enlarged. Rotated exam 2. Chronic interstitial changes. No consolidation or overt failure. 3. No significant pleural effusion, no pneumothorax. 4. Dextrocurvature of the spine, osteopenia. Preliminary report rendered by Dr. Denys Amaya immediately after the examination was completed. Interpreted By: Gautam Fernando, 07/29/2020 10:04 AM us Brianna Gonzalez MD GENERAL IMAGING Final Result * EKG Reading (07/29/2020 2:00 AM INSULATION ESTIMATOR) Narrative Brianna Gonzalez MD - 07/29/2020 2:00 AM INSULATION ESTIMATOR Brianna Gonzalez MD ? 07/29/2020 ??6:33 AM EKG Reading Date/Time: 07/29/2020 2:11 AM Performed by: Brianna Gonzalez MD Authorized by: Brianna Gonzalez MD Interpreted by ED physician Comments: EKG at 135 shows sinus rhythm rate 80, no acute ischemic abnormality. us Brianna Gonzalez MD CT CARDIOVASCULAR SYSTEM SERV ICES Final Result * CULTURE, BACTERIA, BLOOD (07/29/2020 1:44 AM CDT) SPEC DESCRIPTION BLOOD 07/29/2020 2:06 AM INSULATION ESTIMATOR [facility] SPECIAL REQUESTS NO SPECIAL REQUEST 07/29/2020 2:06 AM INSULATION ESTIMATOR [facility] CULTURE RESULT NO GROWTH 6 DAYS 08/04/2020 6:[address] [facility] BLOOD SPECIMEN OBTAINED FOR BLOOD CULTURE / Unknown 07/29/2020 1:44 AM CDT 07/29/2020 2:08 AM INSULATION ESTIMATOR us Brianan Gonzalez MD MICROBIOLOGY - GENERAL ORDERA BLES Final Result Performing Organization Address [facility] Co de Phone Number [facility] [address] [place] [address], [place] [phone] [facility] [address] [place] [address], [place] [phone] * TSH W/REFLEX (07/29/2020 1:44 AM CDT) TSH 1.441 0.358 - 3.74 uIU/ML 07/29/2020 2:30 AM [facility] Comment: HIGH DOSES OF BIOTIN MAY INTERFERE WITH THIS TEST RESULT. CORRELATION TO CLINICAL HISTORY AND PRESENTATION RECOMMENDED. FREE T4 NOT INDICATED 07/29/2020 1:44 AM CDT us Brianna Gonzalez MD LABORATORY Final Result [facility] [address] [place] [address], [place] [phone] * MAGNESIUM (07/29/2020 1:44 AM CDT) MAGNESIUM 2.0 1.8 - 2.4 MG/DL 07/29/2020 2:30 AM [facility] 07/29/2020 1:44 AM CDT us Brianna Gonzalez MD LABORATORY Final Result Performing Organization Address City/[facility]/ZIP Co de Phone Number [facility] [address] [place] [address], [place] [phone] * (ABNORMAL) LACTIC ACID (07/29/2020 1:44 AM CDT) LACTIC ACID VENOUS 2.7(HH) 0.4 - 2.0 MMOL/L 07/29/2020 2:22 AM [facility] Comment: AN ORDER FOR A REPEAT LACTIC ACID IS REQUIRED WITHIN 6 HOURS OF DIAGNOSIS ON A PATIENT WITH SEVERE SEPSIS. ALERT VALUE CALLED TO AND READ BACK BY: DR GONZALEZ @222 07/29/2020 1:44 AM CDT us Brianna Gonzalez MD LABORATORY Final Result Performing Organization Address [facility]/ZIP Co de Phone Number [facility] [address] [place] [address], [place] [phone] * PRO-BRAIN NATRIURETIC PEPTIDE (07/29/2020 1:44 AM CDT) PRO-B TYPE NATRIURETIC PEPTIDE 169 <450 PG/ML 07/29/2020 2:30 AM [facility] Comment: CUT POINTS ESTABLISHED BY INTERNATIONAL [...] OF 89% AND 72% FOR ACUTE CHF. 07/29/2020 1:44 AM CDT Brianna Gonzalez MD LABORATORY Final Result Performing Organization Address [facility]/ZIP Co de Phone Number [facility] [address] [place] [address], [place] [phone] * TROPONIN, QUANT (07/29/2020 1:44 AM CDT) TROPONIN I <0.017 0.000 - 0.056 ng/mL. 07/29/2020 2:22 AM INSULATION ESTIMATOR [facility] Comment: NORMAL: LESS THAN OR EQUAL TO 0.056 NG/ML INDETERMINATE ZONE: 0.057 TO 0.599 NG/ML CONDITIONS RESULTING IN MYOCARDIAL CELL DAMAGE CAN POTENTIALLY INCREASE LEVELS ABOVE THE EXPECTED RANGE. HIGH DOSES OF BIOTIN MAY INTERFERE WITH THIS TEST RESULT. CORRELATION TO CLINICAL HISTORY AND PRESENTATION RECOMMENDED. 07/29/2020 1:44 AM CDT Brianna Gonzalez MD LABORATORY Final Result Performing Organization Address [facility] Co de Phone Number [facility] [address] [place] [address], [place] [phone] * (ABNORMAL) COMPREHENSIVE METABOLIC PANEL (07/29/2020 1:44 AM CDT) GLUCOSE 393(H) 70 - 99 MG/DL 07/29/2020 2:30 AM [facility] BUN 23(H) 7 - 18 MG/DL 07/29/2020 2:30 AM [facility] CREATININE S/P/B 1.15(H) 0.55 - 1.02 MG/DL 07/29/2020 2:30 AM [facility] SODIUM S/P/B 151(H) 136 - 145 MMOL/L 07/29/2020 2:30 AM [facility] POTASSIUM S/P/B 3.9 3.5 - 5.1 MMOL/L 07/29/2020 2:30 AM [facility] CHLORIDE S/P/B 112(H) 100 - 108 MMOL/L 07/29/2020 2:30 AM [facility] CO2 26.4 21 - 32 MMOL/L 07/29/2020 2:30 AM [facility] CALCIUM S/P/B 9.8 8.5 - 10.1 MG/DL 07/29/2020 2:30 AM [facility] BILIRUBIN TOTAL S/P/B 0.8 0.2 - 1.2 MG/DL 07/29/2020 2:30 AM [facility] TOTAL PROTEIN S/P/B 7.0 6.4 - 8.2 G/DL 07/29/2020 2:30 AM [facility] ALBUMIN S/P/B 3.3(L) 3.4 - 5.0 G/DL 07/29/2020 2:30 AM [facility] AST 56(H) 15 - 37 U/L 07/29/2020 2:30 AM [facility] ALT 149(H) 14 - 55 U/L 07/29/2020 2:30 AM [facility] ALKALINE PHOSPHATASE S/P/B 149(H) 50 - 136 U/L 07/29/2020 2:30 AM [facility] ANION GAP 12.6 5 - 15 MMOL/L 07/29/2020 2:30 AM [facility] BUN CREATININE RATIO 20.0 6 - 26 07/29/2020 2:30 AM [facility] A/G RATIO 0.9(L) 1.0 - 2.0 RATIO 07/29/2020 2:30 AM [facility] EGFR NON-AFR. AMER. 46(L) >90 ML/MIN/1.7 3 M2 07/29/2020 2:30 AM [facility] EGFR AFR. AMER. 53(L) >90 ML/MIN/1.7 3 M2 07/29/2020 2:30 AM [facility] Comment: NOTE: eGFR is not calculated for patients <18 years of age. This is an estimated GFR (CKD EPI) and should not be used for calculating drug doses. 07/29/2020 1:44 AM CDT us Brianna Gonzalez MD LABORATORY Final Result [facility] [address] [place] [address], * (ABNORMAL) CBC W/DIFF AUTOMATED (07/29/2020 1:44 AM CDT) WBC 5.7 4.4 - 11.0 x10'3/uL 07/29/2020 2:14 AM [facility] RBC 5.43(H) 4.50 - 5.10 x10'6/uL 07/29/2020 2:14 AM [facility] HGB 16.2(H) 12.3 - 15.3 G/DL 07/29/2020 2:14 AM [facility] HCT 49.9(H) 35.9 - 44.6 % 07/29/2020 2:14 AM [facility] MCV 91.9 80.0 - 96.0 FL 07/29/2020 2:14 AM [facility] MCH 29.8 25.3 - 30.9 PG 07/29/2020 2:14 AM [facility] MCHC 32.5 31.0 - 34.1 G/DL 07/29/2020 2:14 AM [facility] RDW 14.5 12.4 - 15.1 % 07/29/2020 2:14 AM [facility] PLT 133(L) 151 - 353 x10'3/uL 07/29/2020 2:14 AM [facility] MPV 10.9 9.6 - 12.0 FL 07/29/2020 2:14 AM [facility] RBC MORPHOLOGY NORMAL 07/29/2020 2:14 AM [facility] PLT MORPH. NORMAL 07/29/2020 2:14 AM [facility] WBC MORPHOLOGY NORMAL 07/29/2020 2:14 AM [facility] LYMPHOCYTES % 16.4 15.8 - 45.0 % 07/29/2020 2:14 AM [facility] NEUTROPHILS % 74.7(H) 42.1 - 71.9 % 07/29/2020 2:14 AM [facility] MONOCYTES % 5.5(L) 5.7 - 12.5 % 07/29/2020 2:14 AM [facility] EOSINOPHILS 2.8 0.0 - 5.6 % 07/29/2020 2:14 AM [facility] BASOPHILS 0.2 0.0 - 1.3 % 07/29/2020 2:14 AM [facility] ABS. NEUTROPHILS TOTAL 4.23 1.40 - 6.00 x10'3/uL 07/29/2020 2:14 AM [facility] IMMATURE GRANS % 0.4 0.0 - 0.5 % 07/29/2020 2:14 AM [facility] ABS. LYMPHOCYTES 0.93 0.80 - 4.70 x10'3/uL 07/29/2020 2:14 AM [facility] 07/29/2020 1:44 AM CDT us Brianna Gonzalez MD LABORATORY Final Result [facility] [address] [place] [id number], * ECG 12 lead (07/29/2020 1:35 AM CDT) 07/29/2020 1:35 AM CDT Narrative [facility] [place] ([facility]) RAD - 07/29/2020 4:39 PM INSULATION ESTIMATOR ?[facility] ? Test Date: ?2020-07-29 Pat Name: ? EMELINA SANTOYO ? Department: ? Room: ? 110 Gender: ? Female ? 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 : ?1940 ? Requested By: BRIANNA GONZALEZ Order Number: [id number] ? Reading : ?? Aleksandr Blount ? Measurements Intervals ?[place] ? Rate: ? 80 ? P: ?0 CT: ? 121 ?QRS: ?56 QRSD: ? 104 ?T: ?53 QT: ? 397 ? QTc: ?460 ? 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: : 1940 Requested By: BRIANNA GONZALEZ Order Number: [id number] Christopher MD: Aleksandr Blount Measurements Intervals [place] Rate: 80 P: 0 CT: 121 QRS: 56 QRSD: 104 T: 53 QT: 397 QTc: 460 Interpretive Statements SINUS RHYTHM Compared to ECG 06/06/2016 13:24:27 T-wave abnormality no longer present Possible ischemia no longer present LATION ESTIMATOR us Brianna Gonzalez MD ECG ORDERABLES Final Result [facility] ([facility]) RAD documented in this encounter Visit Diagnoses Diagnosis Hypernatremia- Primary Hyperosmolality and/or hypernatremia AMS (altered mental status) Hypernatremia Hyperosmolality and/or hypernatremia Late onset Alzheimer's disease without behavioral disturbance ([facility]) Type 2 diabetes mellitus with diabetic polyneuropathy, without long-term current use of insulin ([facility]) Generalized multiple sclerosis ([facility]) Multiple sclerosis Hyperlipidemia Other and unspecified hyperlipidemia documented in this encounter Administered Medications Inactive Administered Medications - up to 3 most recent administrations Medication Order MAR Action Action Date Dose Rate Site 0.9 % NaCl with KCl 20 mEq infusion at 50 mL/hr, Intravenous, Continuous, Starting on Thu07/31/20 at 1230, Until Thu08/01/20 at 1259 New Bag 07/31/2020 1:20 PM INSULATION ESTIMATOR 50 mL/hr 50 mL/hr acetaminophen (TYLENOL) tablet 650 mg 650 mg, Oral, Every 4 hours PRN, Mild pain (Scale 1 - 3), Starting on 07/29/20 at 0915, Until Thu08/01/20 at 1259, Maximum dose of acetaminophen is 4000 mg from all sources in 24 hours. acidophilus (FLORAJEN) capsule 1 capsule 1 capsule, Oral, Daily, First dose on 07/29/20 at 1600, Until Discontinued Given 08/01/2020 7:49 AM INSULATION ESTIMATOR 1 capsule Given 07/31/2020 9:38 AM INSULATION ESTIMATOR 1 capsule Given 07/30/2020 9:06 AM INSULATION ESTIMATOR 1 capsule amLODIPine (NORVASC) tablet 10 mg 10 mg, Oral, Daily, First dose on 07/29/20 at 1545, Until Discontinued, Hold if SBP< 140 Given 07/30/2020 9: 06 AM INSULATION ESTIMATOR 10 mg Given 07/29/2020 5:37 PM INSULATION ESTIMATOR 10 mg aspirin chewable tablet 81 mg 81 mg, Oral, Daily, First dose on 07/29/20 at 1545, Until Discontinued Given 08/01/2020 7:49 AM INSULATION ESTIMATOR 81 mg Given 07/31/2020 9:38 AM INSULATION ESTIMATOR 81 mg Given 07/30/2020 9:06 AM INSULATION ESTIMATOR 81 mg atorvastatin (LIPITOR) tablet 80 mg 80 mg, Oral, Daily, First dose on Thu07/29/20 at 1545, Until Discontinued Given 08/01/2020 7:49 AM INSULATION ESTIMATOR 80 mg Given 07/31/2020 9:38 AM INSULATION ESTIMATOR 80 mg Given 07/30/2020 9:06 AM INSULATION ESTIMATOR 80 mg cephALEXin (KEFLEX) capsule 250 mg 250 mg, Oral, 4 times daily, 10 doses, First dose on Thu07/29/20 at 1700, Last dose on Thu07/31/20 at 2100 Given 07/31/2020 9:53 PM INSULATION ESTIMATOR 250 mg Given 07/31/2020 4:25 PM INSULATION ESTIMATOR 250 mg Given 07/31/2020 12:13 PM INSULATION ESTIMATOR 250 mg cetirizine (ZyrTEC) tablet 5 mg 5 mg, Oral, Daily, First dose on Thu07/29/20 at 1600, Until Discontinued Given 07/30/2020 9:06 AM INSULATION ESTIMATOR 5 mg Given 07/29/2020 5:37 PM INSULATION ESTIMATOR 5 mg donepezil (ARICEPT) tablet 10 mg 10 mg, Oral, 2 times daily, First dose on Thu07/30/20 at 0800, Until Discontinued Given 08/01/2020 7:49 AM INSULATION ESTIMATOR 10 mg Given 07/31/2020 4:25 PM INSULATION ESTIMATOR 10 mg Given 07/31/2020 9:39 AM INSULATION ESTIMATOR 10 mg glimepiride (AMARYL) tablet 4 mg 4 mg, Oral, Daily with breakfast, First dose on Thu08/01/20 at 0800, Until Discontinued Given 08/01/2020 7:49 AM INSULATION ESTIMATOR 4 mg heparin (porcine) injection 5,000 Units 5,000 Units, Subcutaneous, Every 12 hours scheduled, First dose on 07/29/20 at 2100, Until Discontinued Given 08/01/2020 7:49 AM INSULATION ESTIMATOR 5,000 Units Left Lower Abdomen Given 07/31/2020 9:53 PM INSULATION ESTIMATOR 5,000 Units R ight Lower Abdomen Given 07/31/2020 9:39 AM INSULATION ESTIMATOR 5,000 Units L eft Lower Abdomen hydrALAZINE (APRESOLINE) injection 5 mg 5 mg, Intravenous, Once, 1 dose, On 07/29/20 at 0230, Monitor HR and BP before dose and 15 min after IV dose. For IV push give over 1-2 minutes=5mg/min. Given 07/29/2020 3:07 AM INSULATION ESTIMATOR 5 mg HYDROcodone-acetaminophen (NORCO) 5-325 MG tablet 1 tablet 1 tablet, Oral, Every 4 hours PRN, Moderate pain (Scale 4 - 7), Starting on 07/29/20 at 0915, Until Thu08/01/20 at 1259, Maximum dose of acetaminophen is 4000 mg from all sources in 24 hours. insulin lispro (HUMALOG) injection 0-14 Units 0-14 Units, Subcutaneous, 3 times daily before meals, First dose on Thu07/30/20 at 1600, Until Discontinued, Blood Glucose (SENSITIVE Dosing): [Less than 70:? Initiate Hypoglycemia Standing Orders] [71-140: 0 units] [141-180: 2 units] [181-220: 4 units] [221-260: 6 units] [261-300: 8 units] [301-350: 10 units] [351-400: 12 units] [Greater than 400: 14 units and Call Physician] Given 08/01/2020 7:49 AM INSULATION ESTIMATOR 6 Units Left Arm Given 07/31/2020 5:03 PM INSULATION ESTIMATOR 12 Units Le ft Arm Given 07/31/2020 12:14 PM INSULATION ESTIMATOR 10 Units L eft Arm insulin lispro (HUMALOG) injection 0-7 Units 0-7 Units, Subcutaneous, Nightly at bedtime, First dose on Thu07/30/20 at 2100, Until Discontinued, Blood Glucose (SENSITIVE Dosing): [Less than 70:? Initiate Hypoglycemia Standing Orders] [71-180: ? 0 units] [181-220:? 2 units] [221-260:? 3 units] [261-300:? 4 units] [301-350:? 5 units] [351-400:? 6 units] [Greater than 400:? 7 units and Call Physician] Given 07/31/2020 10:00 PM INSULATION ESTIMATOR 6 Unit s Left Arm Given 07/30/2020 10:12 PM INSULATION ESTIMATOR 2 Units L eft Arm insulin lispro (HUMALOG) injection 2 Units 2 Units, Subcutaneous, Once, 1 dose, On Thu07/30/20 at 0845, For sliding scale, activate Sliding Scale Insulin order set Given 07/30/2020 9:05 AM INSULATION ESTIMATOR 2 Units Left Arm lisinopril (PRINIVIL) tablet 10 mg 10 mg, Oral, Daily, First dose on 07/29/20 at 1545, Until Discontinued Given 08/01/2020 7:49 AM INSULATION ESTIMATOR 10 mg Given 07/30/2020 9:06 AM INSULATION ESTIMATOR 10 mg Given 07/29/2020 5:36 PM INSULATION ESTIMATOR 10 mg memantine (NAMENDA) tablet 10 mg 10 mg, Oral, 2 times daily, First dose on 07/29/20 at 2100, Until Discontinued Given 08/01/2020 7:49 AM INSULATION ESTIMATOR 10 mg Given 07/31/2020 9:53 PM INSULATION ESTIMATOR 10 mg Given 07/31/2020 9:39 AM INSULATION ESTIMATOR 10 mg metoprolol tartrate (LOPRESSOR) tablet 25 mg 25 mg, Oral, 2 times daily, First dose on 07/29/20 at 2100, Until Discontinued Given 08/01/2020 7:49 AM INSULATION ESTIMATOR 25 mg Given 07/31/2020 9:53 PM INSULATION ESTIMATOR 25 mg Given 07/30/2020 10:04 PM INSULATION ESTIMATOR 25 mg morphine injection 2 mg 2 mg, Intravenous, Every 2 hours PRN, Severe pain (Scale 8 - 10), Starting on 07/29/20 at 0916, Until Thu08/01/20 at 1259 naLOXone (NARCAN) injection 0.4 mg 0.4 mg, Intravenous, As needed, Opioid reversal, Starting on 07/29/20 at 0916, Until 08/01/20 at 1259 ondansetron (ZOFRAN) injection 4 mg 4 mg, Intravenous, Every 8 hours PRN, Nausea, Vomiting, Starting on 07/29/20 at 0916, Until Thu08/01/20 at 1259, IV push over 2-5 minutes. polyethylene glycol (GLYCOLAX) packet 17 g 17 g, Oral, Daily as needed, Constipation, Starting on 07/29/20 at 0916, Until Thu08/01/20 at 1259, If both senna and polyethylene glycol are ordered, use 1st; if no response by next dosing interval, go to next option. polyvinyl alcohol (LIQUIFILM/ARTIFICIAL TEARS) 1.4 % ophthalmic solution 1 drop 1 drop, Both Eyes, 3 times daily, First dose on 07/29/20 at 1600, Until Discontinued Given 08/01/2020 9:09 AM INSULATION ESTIMATOR 1 drop Given 07/31/2020 9:53 PM INSULATION ESTIMATOR 1 drop Given 07/31/2020 4:25 PM INSULATION ESTIMATOR 1 drop potassium chloride CR (KLOR-CON M) tablet 10 mEq 10 mEq, Oral, 2 times daily, First dose on Thu07/31/20 at 1230, Until Discontinued, Do not chew, crush, or suck on tablet. May break in half. May dissolve whole tablet in 120 mL of water and drink immediately. Given 08/01/2020 7:49 AM INSULATION ESTIMATOR 10 mEq Given 07/31/2020 9:53 PM INSULATION ESTIMATOR 10 mEq Given 07/31/2020 12:13 PM INSULATION ESTIMATOR 10 mEq predniSONE (DELTASONE) tablet 5 mg 5 mg, Oral, Daily, First dose on Thu07/29/20 at 1545, Until Discontinued Given 08/01/2020 7:49 AM INSULATION ESTIMATOR 5 mg Given 07/31/2020 9:39 AM INSULATION ESTIMATOR 5 mg Given 07/30/2020 9:06 AM INSULATION ESTIMATOR 5 mg pregabalin (LYRICA) capsule 150 mg 150 mg, Oral, 2 times daily, First dose on Thu07/29/20 at 2100, Until Discontinued Given 08/01/2020 7:49 AM INSULATION ESTIMATOR 150 mg Given 07/31/2020 9:53 PM INSULATION ESTIMATOR 150 mg Given 07/31/2020 9:39 AM INSULATION ESTIMATOR 150 mg sodium chloride 0.45% infusion at 100 mL/hr, Intravenous, Continuous, Starting on Thu07/29/20 at 0930, Until Thu07/31/20 at 1739 New Bag 07/31/2020 4:07 AM INSULATION ESTIMATOR 100 mL/hr New Bag 07/30/2020 6:00 PM INSULATION ESTIMATOR 100 mL/hr New Bag 07/30/2020 7:41 AM INSULATION ESTIMATOR 100 mL/hr sodium chloride 0.9% infusion at 999 mL/hr, Intravenous, Once, 1 dose, On Thu07/29/20 at 0230 New Bag 07/29/2020 3:08 AM INSULATION ESTIMATOR 999 mL/h r documented in this encounter Active and Recently Administered Medications Times are shown in INSULATION ESTIMATOR. Scheduled Medication Order 07/30/2020 07/31/2020 08/01/2020 acidophilus (FLORAJEN) capsule 1 capsule 1 capsule, Oral, Daily, First dose on 07/29/20 at 1600, Until Discontinued 09 (Given - Provider: Tammy Meza RN) 0938 (Given - Provider: Cristal Santana RN) 0749 (Given - Provider: Cristal Santana RN) amLODIPine (NORVASC) tablet 10 mg (CANCELED) 10 mg, Oral, Daily, First dose on 07/29/20 at 1545, Until Discontinued, Hold if SBP< 140 0906 (Given - Provider: Tammy Meza RN) 1013 (Not Given - Provider: Tammy Meza RN - Reason: Order parameters not met) aspirin chewable tablet 81 mg 81 mg, Oral, Daily, First dose on 07/29/20 at 1545, Until Discontinued 09 (Given - Provider: Tammy Meza RN) 0938 (Given - Provider: Cristal Santana RN) 0749 (Given - Provider: Cristal Santana RN) atorvastatin (LIPITOR) tablet 80 mg 80 mg, Oral, Daily, First dose on 07/29/20 at 1545, Until Discontinued 09 (Given - Provider: Tammy Meza RN) 0938 (Given - Provider: Cristal Santana RN) 0749 (Given - Provider: Cristal Santana RN) cephALEXin (KEFLEX) capsule 250 mg () 250 mg, Oral, 4 times daily, 10 doses, First dose on 07/29/20 at 1700, Last dose on Thu07/31/20 at 2100 0906 (Given - Provider: Tammy Meza RN)1238 (Given - Provider: Cristal Santana RN)1658 (Not Given - Provider: Cristal Santana RN - Reason: Contraindicated - Comment: Pt lethargic)2203 (Given - Provider: Shayla Iraheta LPN) 0939 (Given - Provider: Cristal Santana RN)1213 (Given - Provider: Cristal Santana RN)1625 (Given - Provider: Cristal Santana RN)2153 (Given - Provider: Shayla Iraheta LPN) cetirizine (ZyrTEC) tablet 5 mg (CANCELED) 5 mg, Oral, Daily, First dose on 07/29/20 at 1600, Until Discontinued 09 (Given - Provider: Tammy Meza RN) donepezil (ARICEPT) tablet 10 mg 10 mg, Oral, 2 times daily, First dose on Thu07/30/20 at 0800, Until Discontinued 905 (Given - Provider: Tammy Meza RN)165 (Not Given - Provider: Cristal Santana RN - Reason: Contraindicated - Comment: Pt lethargic) 0939 (Given - Provider: Cristal Santana RN)1625 (Given - Provider: Cristal Santana RN) 0749 (Given - Provider: Cristal Santana RN) glimepiride (AMARYL) tablet 4 mg 4 mg, Oral, Daily with breakfast, First dose on Thu08/01/20 at 0800, Until Discontinued 748 (Given - Provider: Cristal Santana RN) heparin (porcine) injection 5,000 Units(Linked Group 1) 5,000 Units, Subcutaneous, Every 12 hours scheduled, First dose on Thu07/29/20 at 2100, Until Discontinued 906 (Given - Provider: Tammy Meza RN)2202 (Given - Provider: Shayla Iraheta LPN) 0939 (Given - Provider: Cristal Santana RN)215 (Given - Provider: Shayla Iraheta LPN) 0749 (Given - Provider: Cristal Santana RN) insulin lispro (HUMALOG) injection 0-14 Units(Linked Group 2) 0-14 Units, Subcutaneous, 3 times daily before meals, First dose on Thu07/30/20 at 1600, Until Discontinued, Blood Glucose (SENSITIVE Dosing): [Less than 70:? Initiate Hypoglycemia Standing Orders] [71-140: 0 units] [141-180: 2 units] [181-220: 4 units] [221-260: 6 units] [261-300: 8 units] [301-350: 10 units] [351-400: 12 units] [Greater than 400: 14 units and Call Physician] 1658 (Given - Provider: Cristal Santana RN) 0947 (Given - Provider: Cristal Santana RN)1214 (Given - Provider: Cristal Santana RN)1703 (Given - Provider: Cristal Santana RN) 0749 (Given - Provider: Cristal Santana RN)1100 (Canceled Entry - Provider: Automatic Discharge Provider - Comment: Automatically canceled at discontinue of medication order) insulin lispro (HUMALOG) injection 0-7 Units(Linked Group 2) 0-7 Units, Subcutaneous, Nightly at bedtime, First dose on Thu07/30/20 at 2100, Until Discontinued, Blood Glucose (SENSITIVE Dosing): [Less than 70:? Initiate Hypoglycemia Standing Orders] [71-180: ? 0 units] [181-220:? 2 units] [221-260:? 3 units] [261-300:? 4 units] [301-350:? 5 units] [351-400:? 6 units] [Greater than 400:? 7 units and Call Physician] 2211 (Given - Provider: Shayla Iraheta LPN) 2199 (Given - Provider: Shayla Iraheta LPN) insulin lispro (HUMALOG) injection 2 Units (COMPLETED) 2 Units, Subcutaneous, Once, 1 dose, On Thu07/30/20 at 0845, For sliding scale, activate Sliding Scale Insulin order set 09 (Given - Provider: Tammy Meza RN) lisinopril (PRINIVIL) tablet 10 mg 10 mg, Oral, Daily, First dose on Thu07/29/20 at 1545, Until Discontinued 09 (Given - Provider: Tammy Meza RN) 1013 (Not Given - Provider: Tammy Meza RN - Reason: Order parameters not met) 0749 (Given - Provider: Cristal Santana RN) memantine (NAMENDA) tablet 10 mg 10 mg, Oral, 2 times daily, First dose on Thu07/29/20 at 2100, Until Discontinued 09 (Given - Provider: Tammy Meza RN)220 (Given - Provider: Shayla Iraheta LPN) 0939 (Given - Provider: Cristal Santana RN)2153 (Given - Provider: Shayla Iraheta LPN) 0749 (Given - Provider: Cristal Santana RN) metoprolol tartrate (LOPRESSOR) tablet 25 mg 25 mg, Oral, 2 times daily, First dose on 07/29/20 at 2100, Until Discontinued 905 (Given - Provider: Tammy Meza RN)2203 (Given - Provider: Shayla Iraheta LPN) 1013 (Not Given - Provider: Tammy Meza RN - Reason: Order parameters not met)2152 (Given - Provider: Shayla Iraheta LPN) 0749 (Given - Provider: Cristal Santana RN) polyvinyl alcohol (LIQUIFILM/ARTIFICIAL TEARS) 1.4 % ophthalmic solution 1 drop 1 drop, Both Eyes, 3 times daily, First dose on 07/29/20 at 1600, Until Discontinued 915 (Given - Provider: Tammy Meza RN)1658 (Not Given - Provider: Cristal Santana RN - Reason: Contraindicated - Comment: Pt lethargic)2202 (Given - Provider: Shayla Iraheta LPN) 0940 (Given - Provider: Cristal Santana RN)1625 (Given - Provider: Cristal Santana RN)2152 (Given - Provider: Shayla Iraheta LPN) 0909 (Given - Provider: Cristal Santana RN) potassium chloride CR (KLOR-CON M) tablet 10 mEq 10 mEq, Oral, 2 times daily, First dose on Thu07/31/20 at 1230, Until Discontinued, Do not chew, crush, or suck on tablet. May break in half. May dissolve whole tablet in 120 mL of water and drink immediately. 1213 (Given - Provider: Cristal Santana RN)2152 (Given - Provider: Shayla Iraheta LPN) 0749 (Given - Provider: Cristal Santana RN) predniSONE (DELTASONE) tablet 5 mg 5 mg, Oral, Daily, First dose on 07/29/20 at 1545, Until Discontinued 905 (Given - Provider: Tammy Meza RN) 0939 (Given - Provider: Cristal Santana RN) 0749 (Given - Provider: Cristal Santana RN) pregabalin (LYRICA) capsule 150 mg 150 mg, Oral, 2 times daily, First dose on Thu07/29/20 at 2100, Until Discontinued 09 (Given - Provider: Tammy Meza RN)220 (Given - Provider: Shayla Iraheta LPN) 0939 (Given - Provider: Cristal Santana RN)2153 (Given - Provider: Shayla Iraheta LPN) 0749 (Given - Provider: Cristal Santana RN) Continuous Medication Order 07/30/2020 07/31/2020 08/01/2020 0.9 % NaCl with KCl 20 mEq infusion at 50 mL/hr, Intravenous, Continuous, Starting on Thu07/31/20 at 1230, Until Thu08/01/20 at 1259 1320 (New Bag - Provider: Cristal Santana RN) sodium chloride 0.45% infusion (CANCELED) at 100 mL/hr, Intravenous, Continuous, Starting on Thu07/29/20 at 0930, Until Thu07/31/20 at 1739 0741 (New Bag - Provider: Tammy Meza RN)1800 (New Bag - Provider: Cristal Santana RN) 0407 (New Bag - Provider: Shayla Iraheta LPN)1319 (Infusion Stop Time - Provider: Tammy Meza RN) PRN Medication Order 07/30/2020 07/31/2020 08/01/2020 acetaminophen (TYLENOL) tablet 650 mg 650 mg, Oral, Every 4 hours PRN, Mild pain (Scale 1 - 3), Starting on Thu07/29/20 at 0915, Until Thu08/01/20 at 1259, Maximum dose of acetaminophen is 4000 mg from all sources in 24 hours. HYDROcodone-acetaminophen (NORCO) 5-325 MG tablet 1 tablet 1 tablet, Oral, Every 4 hours PRN, Moderate pain (Scale 4 - 7), Starting on Thu07/29/20 at 0915, Until Thu08/01/20 at 1259, Maximum dose of acetaminophen is 4000 mg from all sources in 24 hours. magnesium hydroxide (MILK OF MAGNESIA) 400 MG/5ML suspension 30 mL 30 mL, Oral, Nightly PRN, Constipation, Starting on 07/29/20 at 1521, Until Thu08/01/20 at 1259 morphine injection 2 mg 2 mg, Intravenous, Every 2 hours PRN, Severe pain (Scale 8 - 10), Starting on Thu07/29/20 at 0916, Until Thu08/01/20 at 1259 naLOXone (NARCAN) injection 0.4 mg 0.4 mg, Intravenous, As needed, Opioid reversal, Starting on Thu07/29/20 at 0916, Until Thu08/01/20 at 1259 nystatin (MYCOSTATIN) powder Topical, PRN, irritation under bilateral breasts and abd folds, Starting on Thu07/29/20 at 1522, Until Thu08/01/20 at 1259 ondansetron (ZOFRAN) injection 4 mg 4 mg, Intravenous, Every 8 hours PRN, Nausea, Vomiting, Starting on Thu07/29/20 at 0916, Until Thu08/01/20 at 1259, IV push over 2-5 minutes. polyethylene glycol (GLYCOLAX) packet 17 g 17 g, Oral, Daily as needed, Constipation, Starting on Thu07/29/20 at 0916, Until Thu08/01/20 at 1259, If both senna and polyethylene glycol are ordered, use 1st; if no response by next dosing interval, go to next option. Linked Groups Order Group 1: heparin (porcine) injection 5,000 UnitsJump to med 5,000 Units, Subcutaneous, Every 12 hours scheduled, First dose on Thu07/29/20 at 2100, Until Discontinued And Place sequential compression device (CANCELED) Routine, Once, On Thu07/29/20 at 1503, For 1 occurrence And Intermittent Pneumatic Compression Device Applied (COMPLETED) And Assess Sequential Compression Device (Assess skin at a minimum of every shift) (CANCELED) Routine, Every shift, First occurrence on Thu07/29/20 at 1503 And Maintain Sequential Compression Device (COMPLETED) Routine, Daily, First occurrence on Thu07/30/20 at 0600 And High Risk for VTE (COMPLETED) Group 2: insulin lispro (HUMALOG) injection 0-14 UnitsJump to med 0-14 Units, Subcutaneous, 3 times daily before meals, First dose on Thu07/30/20 at 1600, Until Discontinued, Blood Glucose (SENSITIVE Dosing): [Less than 70:? Initiate Hypoglycemia Standing Orders] [71-140: 0 units] [141-180: 2 units] [181-220: 4 units] [221-260: 6 units] [261-300: 8 units] [301-350: 10 units] [351-400: 12 units] [Greater than 400: 14 units and Call Physician] And insulin lispro (HUMALOG) injection 0-7 UnitsJump to med 0-7 Units, Subcutaneous, Nightly at bedtime, First dose on Thu07/30/20 at 2100, Until Discontinued, Blood Glucose (SENSITIVE Dosing): [Less than 70:? Initiate Hypoglycemia Standing Orders] [71-180: ? 0 units] [181-220:? 2 units] [221-260:? 3 units] [261-300:? 4 units] [301-350:? 5 units] [351- 400:? 6 units] [Greater than 400:? 7 units and Call Physician] documented in this encounter Additional Health Concerns Infection Onset Date Last Indicated Resolved Time COVID-19 Rule Out 07/30/2020 07/30/2020 07/31/2020 10:35 PM INSULATION ESTIMATOR documented as of this encounter Care Teams Director Of Enterprise Strategy Relationship Specialty Start Date End Date Kirsty Lara DO PCP - General INTERNAL MEDICINE 02/24/20 12/12/20 Yolanda Dorsey NP Nurse Practitioner Nurse Practitioner Family 02/24/20 01/23/21 documented as of this encounter
--- OUTSIDE RECORDS SUMMARY | 2024-09-21 01:16 | XMS_ITS | Encounter Summary ---
Author Organization [facility] Address [facility] [facility] [place] [address] [place] [address] Care Team Providers Care Manager Finance Name Role Phone Yolanda Dorsey EQUIPMENT OPERATOR WAREHOUSE Unavailable Jayesh Lara DO Primary Care Provider [phone] Encounter Details Date Type Department Care Team (Late st Contact Info) Description 07/26/2020 Chart Prep [facility] [address] [facility] [address] [place] [address] Yolanda Dorsey NP [address] [id number] Social History Tobacco Use Types Packs/Day Years [...] filedocumented in this encounter Care Teams Manager Finance Relationship Specialty Start Date End Date Jayesh Lara DO PCP - General INTERNAL MEDICINE 02/24/20 12/12/20 Yolanda Dorsey NP Nurse Practitioner Nurse Practitioner Family 02/24/20 01/23/21 documented as of this encounter
--- OUTSIDE RECORDS SUMMARY | 2024-09-21 01:16 | XMS_ITS | Encounter Summary ---
Author Organization [facility] Address [facility] [facility] [place] [address] [place] [address] Care Team Providers Care Sales Representative Printing Supplies Name Role Phone SunitaLisette velazquezanda FASHION STYLIST Unavailable Jayesh Lara DO Primary Care Provider Reason for Visit * Reason Comments [facility] routine + hospital f /u dx: hyponatremia, AMS Encounter Details Date Type Department Care Team (Late st Contact Info) Description 08/03/2020 9:00 AM SOFTWARE BUILD ENGINEER Telemedicine [facility] [address] [place] [id number] Jayesh Lara DO [address] [place] [id number] [facility] (routine + hospital f/u dx: hyponatremia, AMS) Social History Tobacco Use Types Packs/Day Years [...] COVID-19? Unable to assess 07/29/2020 8:12 PM SOFTWARE BUILD ENGINEER documented as of this encounter Last Filed Vital Signs Vital Sign Reading Time Taken Comments Blood Pressure 126/52 08/03/2020 8:56 AM SOFTWARE BUILD ENGINEER Pulse 70 08/03/2020 8:56 AM SOFTWARE BUILD ENGINEER Temperature 36.5 ??C (97.7 ??F) 08/03/2020 8:56 AM CS T Respiratory Rate 18 08/03/2020 8:56 AM SOFTWARE BUILD ENGINEER Oxygen Saturation - - Inhaled Oxygen Concentration - - Weight - - Height - - Body Mass Index - - documented in this encounter Functional Status * RETIRED Are you deaf or do you have serious difficulty hearing Answer Date of Assessment Author Status No 07/29/2020 8:15 PM SOFTWARE BUILD ENGINEER Activ e * RETIRED Are you blind or do you have serious difficulty seeing, even when wearing glasses? Answer Date of Assessment Author Status No 07/29/2020 8:15 PM SOFTWARE BUILD ENGINEER Activ e * Do you have serious difficulty walking or climbing stairs? Answer Date of Assessment Author Status Yes 07/29/2020 8:15 PM SOFTWARE BUILD ENGINEER Nirali Lyons R N Active * Do you have difficulty dressing or bathing? Answer Date of Assessment Author Status Yes 07/29/2020 8:15 PM SOFTWARE BUILD ENGINEER Nirali Lyons R N Active * Because of a physical, mental, or emotional condition, do you have difficulty doing errands alone such as visiting a doctor's office or shopping? Answer Date of Assessment Author Status Yes 07/29/2020 8:15 PM SOFTWARE BUILD ENGINEER Nirali Lyons R N Active documented as of this encounter Mental Status * Because of a physical, mental, or emotional condition, do you have serious difficulty concentrating, remembering, or making decisions? Answer Entry Date Author Status Yes 07/29/2020 8:15 PM SOFTWARE BUILD ENGINEER Nirali Lyons R N Active documented in this encounter Progress Notes * Jayesh Lara DO - 08/03/2020 9:00 AM CST Skilled/skilled nursing note I introduced and identified myself, received verbal consent from the patient to proceed with this video visit and made the patient aware that the same confidentiality and information technology coordinator practices apply. The patient joined the [facility] visit from the [facility]. I completed the virtual visit from home office. The following clinical staff helped with this visit nursing staff at the home. TotalTime Spent in Minutes: *20 seeing pt and reviewing labs and records and talking to staff Emelina Santoyo 80-year-old 1940 [facility] [id number] female ? CC:* hyperlipidemia dementia diabetes hyperlipidemia. Lipitor. No reports of muscle pain. Dementia. Donepezil. No reports of behaviors. Type 2 diabetes?. Glimepiride . No reports of hypoglycemic episodes. ASSESSMENT AND PLAN: hyperlipidemia. Lipitor. Stable. Dementia. Donepezil. Stable. Type 2 diabetes?. Glimepiride . Stable. -Social-pt has no questions /family has no questions according to nursing staff Old records requested and reviewed as above from [facility] and [facility] records Past Medical History: [...] Take 80 mg by mouth daily. ??? cranberry 450 MG Tab tablet Take 450 mg by mouth daily. ??? cyanocobalamin 1000 MCG/ML injection Inject 1 mL into the muscle monthly. Give on ??? donepezil 10 MG Tab Take 10 mg by mouth 2 (two) times daily. ??? glimepiride 4 MG tablet Take 4 mg by mouth every morning before breakfast. ??? guaiFENesin 100 MG/5ML solution Take 100 mg by mouth every 4 (four) hours as needed for Cough. ??? HYDROcodone-acetaminophen 5-325 MG tablet Take 1 tablet by mouth every 4 (four) hours as needed. Indications: Acute Pain < 7 Day Supply 15 tablet 0 ??? lisinopril 10 MG tablet Take 1 [...] Take 1 tablet by mouth daily. ??? pwrcmsor-rnibyvpcdl-wcljnupdk 5-400-5000 Ointment Apply topically every other day. ??? nystatin powder Apply topically as needed (irritation under bilateral breasts and abd folds). ??? polyethylene glycol powder Take 17 g [...] (two) times daily. ??? vitamin D2, ergocalciferol, 00666 UNITS capsule Take 2 capsules by mouth once a week. Thursday No current facility-administered medications on file prior [...] commands HEM/ONC: No apparent bleed. PSYCHIATRIC: Calm. Confused. Multi color T-shirt vitals Filed Vitals: 08/03/20 0856 BP: 126/52 Pulse: 70 Resp: 18 Temp: 97.7 ??F (36.5 ??C) ?? Lab Results Lab Results Component Value Date/Time WBC 3.9 (L) 07/30/2020 06:27 AM HGB 14.3 07/30/2020 06:27 AM * WARE BUILD ENGINEER documented in this encounter Plan of Treatment Not on file documented as of this encounter Goals Goal Patient Goal Type Associated Problems Recent Progress Patient-Stated? Author Establish Plan for Regular Lab Work General No Marlys Sam RN documented as of this encounter Visit Diagnoses Diagnosis Hyperlipidemia, unspecified hyperlipidemia type- Primary documented in this encounter Care Teams Sales Representative Printing Supplies Relationship Specialty Start Date End Date Jayesh Lara DO PCP - General INTERNAL MEDICINE 02/24/20 12/12/20 Yolanda Dorsey NP Nurse Practitioner Nurse Practitioner Family 02/24/20 01/23/21 documented as of this encounter
--- OUTSIDE RECORDS SUMMARY | 2024-09-21 01:16 | XMS_ITS | Encounter Summary ---
Author Organization [facility] Address [facility] [place] [address] [place] [address] Care Team Providers Care Crewman Main Battle Tank Name Role Phone Yolanda Dorsey ACADEMIC AFFAIRS SPECIALIST Unavailable Jayesh Lara DO Primary Care Provider [phone] Reason for Visit * Reason Comments [facility] ED f/u dx: hyperglyc emia Encounter Details Date Type Department Care Team (Late st Contact Info) Description 07/26/2020 9:40 AM CDT Telemedicine [address] [address] Yolanda Dorsey, SHANKAR [address] [address] [facility] (ED f/u dx: hyperglycemia) Social History Tobacco Use Types Packs/Day Years [...] Sign Reading Time Taken Comments Blood Pressure 138/82 07/26/2020 10:22 AM CDT Pulse 80 07/26/2020 10:22 AM CDT Temperature 36.6 ??C (97.8 ??F) 07/26/2020 10:22 AM C DT Respiratory Rate 18 07/26/2020 10:22 AM CDT Oxygen Saturation 94% 07/26/2020 10:22 AM CDT Inhaled Oxygen Concentration - - Weight - - Height - - Body Mass Index - - documented in this encounter Progress Notes * Yolanda Pryor NP - 07/26/2020 9:40 AM CDT Images from the original note were not included. Reason for Visit: [facility] (ED f/u dx: hyperglycemia) History of Present Illness: I introduced and identified myself, received verbal consent?? from the patient to proceed with thisvideo visit and made the patient aware that the same confidentiality and referral and information aide practices apply. The patient joined the video visit from [facility]. [place] The following clinical staff helped with this visit Nurse: Melanie. Total Time Spent in Minutes: 26 Emelina Santoyo is an 80-year-old female who was seen today for an ED follow up. Staff reports an episode of lethargy overnight and she was found to be slightly dehydrated and be hyperglycemic. Her UA in the ED also revealed some bacteria so she was treated with keflex for UTI. Nurse reports patient has been at her baseline all day. Patient denies any pain or concerns. She reports she is more tired today but didn't sleep much due to being in the ED overnight. She also reports she typically sleeps well and has a good appetite. Staff has no acute concerns at this time. ROS: Review of Systems Constitutional: Negative for [...] insomnia. Medications: Current Outpatient Medications: ??? acetaminophen (TYLENOL) 325 MG tablet, Take 2 tablets (650 mg total) by mouth every 6 (six) hours as needed for Pain., Disp: 30 tablet, Rfl: 0 ??? acetaminophen 325 MG tablet, Take 650 [...] at bedtime. , Disp: , Rfl: ??? cephALEXin (KEFLEX) 250 MG capsule, Take 1 capsule (250 mg total) by mouth 4 (four) times dailyfor 7 days., Disp: 28 capsule, Rfl: 0 ??? cranberry 450 MG Tab tablet, Take [...] Disp: , Rfl: ??? vitamin D2, ergocalciferol, [address] UNITS capsule, Take 2 capsules by mouth once a week. , Disp: , Rfl: Allergies Allergen Reactions ??? Metronidazole Unknown Past Medical History: Diagnosis Date ??? Cholecystitis, unspecified 02/09/2019 ??? Chronic indwelling Zhang catheter Filed Vitals: 07/26/20 1022 BP: 138/82 Pulse: 80 Resp: 18 Temp: 97.8 ??F (36.6 ??C) SpO2: 94% Physical Exam Constitutional: She appears well-developed and well-nourished. Pulmonary/Chest: Effort normal. Neurological: She is alert. She is disoriented. Coordination and gait (wheelchair) abnormal. Psychiatric: She has a normal mood and affect. Her speech is delayed. She is slowed and withdrawn. Cognition and memory are impaired. She expresses inappropriate judgment. She exhibits abnormal recent memory. She is inattentive. Diagnoses/Impression: 1. Cystitis - Given keflex in ED. 2. Type 2 diabetes mellitus with diabetic polyneuropathy, without long-term current use of insulin ([facility]) - No DKA, monitor. Recommendations and Plan: Continue current treatment plan. Staff to continue to monitor and report any changes. Follow up in one month unless necessary sooner. Yolanda Pryor NP documented in this encounter Plan of Treatment Not on file documented as of this encounter Visit Diagnoses Diagnosis Cystitis- Primary Cystitis, unspecified Type 2 diabetes mellitus with diabetic polyneuropathy, without long-term current use of insulin ([facility]) documented in this encounter Additional Health Concerns Infection Onset Date Last Indicated Resolved Time COVID-19 Rule Out 07/30/2020 07/30/2020 07/31/2020 10:35 PM DECK ENGINE OPERATOR documented as of this encounter Care Teams Crewman Main Battle Tank Relationship Specialty Start Date End Date Jayesh Lara DO PCP - General INTERNAL MEDICINE 02/24/20 12/12/20 Yolanda Dorsey NP Nurse Practitioner Nurse Practitioner Family 02/24/20 01/23/21 documented as of this encounter
--- OUTSIDE RECORDS SUMMARY | 2024-09-21 01:16 | XMS_ITS | Encounter Summary ---
Author Organization [facility] Address [address] [facility] [place] [address] [place] [address] Care Team Providers Care Ultrasound Technologist Name Role Phone Yolanda Dorsey MARINE PIPEFITTER Unavailable Jayesh Lara DO Primary Care Provider [phone] Encounter Details Date Type Department Care Team (Late st Contact Info) Description 06/07/2020 Orders Only [facility] [address] [place], [place] [id number] Yolanda Dorsey, SHANKAR [address] [address] Social History Tobacco Use Types Packs/Day Years Used Date Smoking Tobacco: Unknown Comments Unknown Sex and Gender Information Value Date Recorded Sex Assigned at Not on file Legal Sex Female 10:25 PM CDT Gender Identity Not on file Sexual Orientation Not on file documented as of this encounter Plan of Treatment Not on file documented as of this encounter Results * (ABNORMAL) HEMOGLOBIN, GLYCOSYLATED (06/07/2020 1:50 PM CDT) HGB A1C 8.7(H) <5.7 % 06/07/2020 3:27 PM CDT [facility] Comment: INCREASED RISK OF DIABETES <5.7% ?NON-DIABETES 5.7-6.4% INCREASED RISK FOR FUTURE DIABETES > OR = 6.5 CONSISTENT WITH DIABETES STANDARDS OF MEDICAL CARE IN DIABETES-2010 DIABETES CARE, 33(SUPP 1): S1-S61,2010 06/07/2020 1:50 PM CDT us Yolanda Dorsey NP LABORATORY Final Result [facility] ([facility] [address] [place] [address], documented in this encounter Visit Diagnoses Diagnosis Diabetic neuropathy with neurologic complication (CMS/HCC [facility])- Primary Type II or unspecified type diabetes mellitus with neurological manifestations, not stated as uncontrolled documented in this encounter Care Teams Ultrasound Technologist Relationship Specialty Start Date End Date Jayesh Lara DO PCP - General INTERNAL MEDICINE 02/24/20 12/12/20 Yolanda Dorsey NP Nurse Practitioner Nurse Practitioner Family 02/24/20 01/23/21 documented as of this encounter
--- OUTSIDE RECORDS SUMMARY | 2024-09-21 01:16 | XMS_ITS | Encounter Summary ---
Author Organization [facility] Address Critical access hospital6 [facility] [address] [place] [address] Care Team Providers Care Manager Contract Name Role Phone Yolanda Dorsey BOAT TESTER Unavailable Jayesh Lara DO Primary Care Provider [phone] Encounter Details Date Type Department Care Team (Late st Contact Info) Description 06/11/2020 Orders Only [facility] [address] [facility] [address] [place] [id number] Savanah Mehta LPN Social History Tobacco Use [...] without long-term current use of insulin (CMS/HCC [facility]) documented in this encounter Care Teams Manager Contract Relationship Specialty Start Date End Date Jayesh Lara DO PCP - General INTERNAL MEDICINE 02/24/20 12/12/20 Yolanda Dorsey NP Nurse Practitioner Nurse Practitioner Family 02/24/20 01/23/21 documented as of this encounter
--- OUTSIDE RECORDS SUMMARY | 2024-09-21 01:16 | XMS_ITS | Encounter Summary ---
Author Organization [facility] Address [facility]6 [facility] [place] [address] [place] [address] Care Team Providers Care Hat Liner Name Role Phone Yolanda Dorsey MEDICAL RECORDS ANALYST Unavailable Jayesh Lara DO Primary Care Provider [phone] Encounter Details Date Type Department Care Team (Latest Contact Info) Description 07/29/2020 Travel Social History Tobacco Use Types Packs/Day [...] COVID-19? Unable to assess 07/29/2020 8:12 PM ELECTRICAL AND INSTRUMENTATION MANAGER documented as of this encounter Functional Status documented as of this encounter Mental Status * Question Answer Entry Date Author Status Because of a physical, mental, or emotional condition, do you have serious difficulty concentrating, remembering, or making decisions? Yes 07/29/2020 8:15 PM ELECTRICAL AND INSTRUMENTATION MANAGER Nirali Lyons RN Active documented in this encounter Plan of Treatment Not on file documented as of this encounter Visit Diagnoses Not on filedocumented in this encounter Care Teams Hat Liner Relationship Specialty Start Date End Date Jayesh Lara DO PCP - General INTERNAL MEDICINE 02/24/20 12/12/20 Yolanda Dorsey NP Nurse Practitioner Nurse Practitioner Family 02/24/20 01/23/21 documented as of this encounter
--- OUTSIDE RECORDS SUMMARY | 2024-09-21 01:16 | XMS_ITS | Encounter Summary ---
Author Organization [facility] Address [facility] [place] [address] [place] [address] Care Team Providers Care Project Management Specialist Name Role Phone Yolanda Dorsey DESK EDITOR Unavailable Jayesh Lara DO Primary Care Provider [phone] Reason for Visit * Reason Onset Date Comments Lab Results 06/08/2020 HGB A1C Encounter Details Date Type Department Care Team (Latest Contact Info) Description 06/08/2020 STOCK WORKER ONLY [facility] [address] [facility] [address] [place] [address] Yolanda Dorsey, SHANKAR [address] [address] Lab Results (HGB A1C) Social History Tobacco Use Types Packs/Day Years Used Date Smoking Tobacco: Unknown Comments Unknown Sex and Gender Information Value Date Recorded Sex Assigned at Not on file Legal Sex Female 10:25 PM CDT Gender Identity Not on file Sexual Orientation Not on file documented as of this encounter Progress Notes * Savanah Mehta LPN - 06/08/2020 9:24 AM CDT Yolanda Pryor APN reviewed HGB A1C results. Orders: Increase Glimepiride to 3mg PO daily. Encourage diabetic diet. Repeat A1C in 3 months. documented in this encounter Plan of Treatment Not on file documented as of this encounter Visit Diagnoses Not on filedocumented in this encounter Care Teams Project Management Specialist Relationship Specialty Start Date End Date Jayesh Lara DO PCP - General INTERNAL MEDICINE 02/24/20 12/12/20 Yolanda Dorsey NP Nurse Practitioner Nurse Practitioner Family 02/24/20 01/23/21 documented as of this encounter
--- OUTSIDE RECORDS SUMMARY | 2024-09-21 01:16 | XMS_ITS | Encounter Summary ---
Author Organization [facility] Address formerly [facility]6 [facility] [place] [address] [place] [address] Care Team Providers Care Paint Brush Maker Name Role Phone SunitaYolanda velazquez TEACHER OF GIFTED STUDENTS Unavailable Jayesh Lara DO Primary Care Provider [phone] Encounter Details Date Type Department Care Team (Late st Contact Info) Description 04/19/2020 Chart Prep [facility] [address] [facility] [address] [place] [address] Jayesh Lara DO [address] [address] Social History Tobacco Use Types Packs/Day Years [...] on filedocumented in this encounter Care Teams Paint Brush Maker Relationship Specialty Start Date End Date Jayesh Lara DO PCP - General INTERNAL MEDICINE 02/24/20 12/12/20 Yolanda Dorsey NP Nurse Practitioner Nurse Practitioner Family 02/24/20 01/23/21 documented as of this encounter
--- OUTSIDE RECORDS SUMMARY | 2024-09-21 01:16 | XMS_ITS | Encounter Summary ---
Author Organization [facility] Address Critical access hospital6 [facility] [place] [address] [place] [address] Care Team Providers Care Mop Handle Assembler Name Role Phone Yolanda Dorsey ARCHIVES DIRECTOR Unavailable Jayesh Lara DO Primary Care Provider [phone] Encounter Details Date Type Department Care Team (Late st Contact Info) Description 08/08/2020 Orders Only [facility] [address] [place], [place] [id number] Yolanda Dorsey, SHANKAR [address] [address] Social History Tobacco Use Types [...] COVID-19? Unable to assess 07/29/2020 8:12 PM HOME STAGER documented as of this encounter Functional Status * RETIRED Are you deaf or do you have serious difficulty hearing Answer Date of Assessment Author Status No 07/29/2020 8:15 PM HOME STAGER Activ e * RETIRED Are you blind or do you have serious difficulty seeing, even when wearing glasses? Answer Date of Assessment Author Status No 07/29/2020 8:15 PM HOME STAGER Activ e * Do you have serious difficulty walking or climbing stairs? Answer Date of Assessment Author Status Yes 07/29/2020 8:15 PM HOME STAGER Nirali Lyons R N Active * Do you have difficulty dressing or bathing? Answer Date of Assessment Author Status Yes 07/29/2020 8:15 PM HOME STAGER Nirali Lyons R N Active * Because [...] as of this encounter Results * (ABNORMAL) CBC W/DIFF AUTOMATED (08/08/2020 2:40 PM HOME STAGER) WBC 5.1 4.4 - 11.0 x10'3/uL 08/08/2020 4:51 PM [facility] RBC 4.91 4.50 - 5.10 x10'6/uL 08/08/2020 4:51 PM [facility] HGB 14.9 12.3 - 15.3 G/DL 08/08/2020 4:51 PM [facility] HCT 45.7(H) 35.9 - 44.6 % 08/08/2020 4:51 PM [facility] MCV 93.1 80.0 - 96.0 FL 08/08/2020 4:51 PM [facility] MCH 30.3 25.3 - 30.9 PG 08/08/2020 4:51 PM [facility] MCHC 32.6 31.0 - 34.1 G/DL 08/08/2020 4:51 PM [facility] RDW 15.5(H) 12.4 - 15.1 % 08/08/2020 4:51 PM [facility] PLT 163 151 - 353 x10'3/uL 08/08/2020 4:51 PM [facility] MPV 12.0 9.6 - 12.0 FL 08/08/2020 4:51 PM [facility] RBC MORPHOLOGY NORMAL 08/08/2020 4:51 PM [facility] PLT MORPH. NORMAL 08/08/2020 4:51 PM [facility] WBC MORPHOLOGY NORMAL 08/08/2020 4:51 PM [facility] LYMPHOCYTES % 14.8(L) 15.8 - 45.0 % 08/08/2020 4:51 PM [facility] NEUTROPHILS % 80.1(H) 42.1 - 71.9 % 08/08/2020 4:51 PM [facility] MONOCYTES % 4.5(L) 5.7 - 12.5 % 08/08/2020 4:51 PM [facility] EOSINOPHILS 0.2 0.0 - 5.6 % 08/08/2020 4:51 PM [facility] BASOPHILS 0.2 0.0 - 1.3 % 08/08/2020 4:51 PM [facility] ABS. NEUTROPHILS TOTAL 4.11 1.40 - 6.00 x10'3/uL 08/08/2020 4:51 PM [facility] IMMATURE GRANS % 0.2 0.0 - 0.5 % 08/08/2020 4:51 PM [facility] ABS. LYMPHOCYTES 0.76(L) 0.80 - 4.70 x10'3/uL 08/08/2020 4:51 PM [facility] 08/08/2020 2:40 PM HOME STAGER Yolanda Dorsey NP LABORATORY Final Result [facility] [address] [place] [address], [place] [phone] * (ABNORMAL) COMPREHENSIVE METABOLIC PANEL (08/08/2020 2:40 PM HOME STAGER) GLUCOSE 508(HH) 70 - 99 MG/DL 08/08/2020 5:13 PM [facility] Comment:CD CALLED CRITICAL R ESULTS AT 08Aug2020 TO AND READ BACK BY JAH ANTONIO BUN 29(H) 7 - 18 MG/DL 08/08/2020 5:13 PM [facility] CREATININE S/P/B 1.27(H) 0.55 - 1.02 MG/DL 08/08/2020 5:13 PM [facility] SODIUM S/P/B 142 136 - 145 MMOL/L 08/08/2020 5:13 PM [facility] POTASSIUM S/P/B 4.6 3.5 - 5.1 MMOL/L 08/08/2020 5:13 PM [facility] CHLORIDE S/P/B 104 100 - 108 MMOL/L 08/08/2020 5:13 PM [facility] CO2 21.8 21 - 32 MMOL/L 08/08/2020 5:13 PM [facility] CALCIUM S/P/B 8.8 8.5 - 10.1 MG/DL 08/08/2020 5:13 PM HOME STAGER [facility] BILIRUBIN TOTAL S/P/B 0.8 0.2 - 1.2 MG/DL 08/08/2020 5:13 PM [facility] TOTAL PROTEIN S/P/B 6.1(L) 6.4 - 8.2 G/DL 08/08/2020 5:13 PM [facility] ALBUMIN S/P/B 3.3(L) 3.4 - 5.0 G/DL 08/08/2020 5:13 PM [facility] AST 151(H) 15 - 37 U/L 08/08/2020 5:13 PM [facility] ALT 166(H) 14 - 55 U/L 08/08/2020 5:13 PM [facility] ALKALINE PHOSPHATASE S/P/B 169(H) 50 - 136 U/L 08/08/2020 5:13 PM [facility] ANION GAP 16.2(H) 5 - 15 MMOL/L 08/08/2020 5:13 PM [facility] BUN CREATININE RATIO 22.8 6 - 26 08/08/2020 5:13 PM [facility] A/G RATIO 1.2 1.0 - 2.0 RATIO 08/08/2020 5:13 PM [facility] EGFR NON-AFR. AMER. 40(L) >90 ML/MIN/1.7 3 M2 08/08/2020 5:13 PM [facility] EGFR AFR. AMER. 47(L) >90 ML/MIN/1.7 3 M2 08/08/2020 5:13 PM [facility] Comment: NOTE: eGFR is not calculated for patients <18 years of age. This is an estimated GFR (CKD EPI) and should not be used for calculating drug doses. 08/08/2020 2:40 PM HOME STAGER Yolanda Sunita ARCHIVES DIRECTOR LABORATORY Final Result [facility] [address] [place] [address], documented in this encounter Visit Diagnoses Diagnosis Abnormal blood chemistry- Primary Other abnormal blood chemistry documented in this encounter Care Teams Mop Handle Assembler Relationship Specialty Start Date End Date Jayesh Lara DO PCP - General INTERNAL MEDICINE 02/24/20 12/12/20 Yolanda Dorsey NP Nurse Practitioner Nurse Practitioner Family 02/24/20 01/23/21 documented as of this encounter
--- OUTSIDE RECORDS SUMMARY | 2024-09-21 01:17 | XMS_ITS | Encounter Summary ---
Author Organization [facility] Address [facility]6 [facility] [place] [address] [place] [address] Care Team Providers Care Director Of Accounts Payable Name Role Phone Yolanda Dorsey FIRE SAFETY DIRECTOR Unavailable Jayesh Lara DO Primary Care Provider [phone] Reason for Visit * Reason Comments Lab (SCAN) Encounter Details Date Type Department Care Team (Latest Contact Info) Description 03/02/2020 Scan HEALTH INFO SRVCS Scanned, Documents Lab [...] have Coronavirus / COVID-19? Unable to assess 02/01/2020 10:49 AM CDT documented as of this encounter Plan of Treatment Not on file documented as of this encounter Procedures Procedure Name Priority Date/Time Associated Diagnosis Comments OUTSIDE LAB (SCAN ORDER) 03/02/2020 OUTSIDE LAB (SCAN ORDER) 03/02/2020 documented in this encounter Results * OUTSIDE LAB (SCAN) (03/02/2020) 03/02/2020 Narrative 03/02/2020 Ordered by an unspecified provider. us Documents Scanned SCANNING Final Result * OUTSIDE LAB (SCAN) (03/02/2020) 03/02/2020 Narrative 03/02/2020 Ordered by an unspecified provider. us Documents Scanned SCANNING Final Result documented in this encounter Visit Diagnoses Not on filedocumented in this encounter Care Teams Director Of Accounts Payable Relationship Specialty Start Date End Date Jayesh Lara DO PCP - General INTERNAL MEDICINE 02/24/20 12/12/20 Yolanda Dorsey NP Nurse Practitioner Nurse Practitioner Family 02/24/20 01/23/21 documented as of this encounter
--- OUTSIDE RECORDS SUMMARY | 2024-09-21 01:17 | XMS_ITS | Encounter Summary ---
Author Organization [facility] Address [facility] [place] [address] [place] [address] Care Team Providers Care Clinical Allergist Name Role Phone Yolanda Dorsey ENVIRONMENTAL HEALTH MANAGER Unavailable Jayesh Lara DO Primary Care Provider [phone] Reason for Visit * Reason Comments [facility] routine Encounter Details Date Type Department Care Team (Late st Contact Info) Description 03/01/2020 10:40 AM CDT [facility] [address] [address] Yolanda Dorsey NP [address] [id number] [facility] (routine) Social History Tobacco Use Types [...] AM CDT documented as of this encounter Last Filed Vital Signs Vital Sign Reading Time Taken Comments Blood Pressure 134/72 03/01/2020 9:55 AM CDT Pulse 84 03/01/2020 9:55 AM CDT Temperature 36.8 ??C (98.2 ??F) 03/01/2020 9:55 AM CD T Respiratory Rate 18 03/01/2020 9:55 AM CDT Oxygen Saturation 94% 03/01/2020 9:55 AM CDT Inhaled Oxygen Concentration - - Weight - - Height - - Body Mass Index - - documented in this encounter Progress Notes * Yolanda Pryor NP - 03/01/2020 10:40 AM CDT Images from the original note were not included. Reason for Visit: [facility] (routine) History of Present Illness: I introduced and identified myself, received verbal consent?? from the patient to proceed with thisvideo visit and made the patient aware that the same confidentiality and information management specialist practices apply. The patient joined the video visit from [facility]. [place] The following clinical staff helped with this visit Nurse: Domenica. Total Time Spent in Minutes: 15 Emelina Santoyo is an 79-year-old female who was seen today for a routine chcf visit. She has multiple chronic medical issues that were reviewed. Patient is alert and oriented to self at baseline. She is able to respond to questions and follow commands. She has no complaints of pain at this time. She is able to make needs known. She reports, I'm doing fine. Staff has no acute concerns at this time. Alzheimer's: No behaviors. Stable. On namenda and donepezil. Type 2 diabetes: Follow A1C. Last done 07/06/19. On glipizide and lyrica. MS: No complaints. Wheelchair bound. Daily prednisone. Hypertension: BP stable. CMP reveals GFR 61. On amlodipine, lisinopril and metoprolol. Vitamin D deficiency: Follow vitamin D level. Last done 01/04/19- low at 18. On vitamin D supplements. Hyperlipidemia: Follow lipid panel. Last done 06/01/2019. On atorvastatin. ROS: Review of Systems Constitutional: Negative for [...] MG tablet, Take 40 mg by mouth nightly at bedtime., Disp: , Rfl: ??? Cranberry 250 MG [...] Rfl: ??? glimepiride 1 MG tablet, Take 1 mg by mouth daily. , Disp: , [...] Disp: , Rfl: ??? vitamin D2, ergocalciferol, [address] UNITS capsule, Take 2 capsules by mouth once a week. , Disp: , Rfl: Allergies Allergen Reactions ??? Metronidazole Unknown Past Medical History: Diagnosis Date ??? Cholecystitis, unspecified 02/09/2019 ??? Chronic indwelling Zhang catheter Filed Vitals: 03/01/20 0955 BP: 134/72 Pulse: 84 Resp: 18 Temp: 98.2 ??F (36.8 ??C) SpO2: 94% Physical Exam Constitutional: She [...] Late onset Alzheimer's disease without behavioral disturbance ([facility]) 2. Type 2 diabetes mellitus with diabetic polyneuropathy, without long-term current use of insulin ([facility]) Draw A1c now and Q6 months. 3. Generalized multiple sclerosis ([facility]) 4. Essential hypertension Draw CBC and CMP now and annually. 5. Vitamin D deficiency Draw vitamin D level now and annually. 6. Hyperlipidemia, unspecified hyperlipidemia type Draw lipid panel now and Q6 months. Recommendations and Plan: Changes made as described above. Staff to continue to monitor and report any changes. Follow up in one month unless necessary sooner. Yolanda Pryor NP documented in this encounter Plan of Treatment Not on file documented as of this encounter Visit Diagnoses Diagnosis Late onset Alzheimer's disease without behavioral disturbance ([facility])- Primary Type 2 diabetes mellitus with diabetic polyneuropathy, without long-term current use of insulin ([facility]) Generalized multiple sclerosis ([facility]) Multiple sclerosis Essential hypertension Unspecified essential hypertension Vitamin D deficiency Unspecified vitamin D deficiency Hyperlipidemia, unspecified hyperlipidemia type documented in this encounter Care Teams Clinical Allergist Relationship Specialty Start Date End Date Jayesh Lara DO PCP - General INTERNAL MEDICINE 02/24/20 12/12/20 Yolanda Dorsey NP Nurse Practitioner Nurse Practitioner Family 02/24/20 01/23/21 documented as of this encounter
--- OUTSIDE RECORDS SUMMARY | 2024-09-21 01:17 | XMS_ITS | Encounter Summary ---
Author Organization [facility] Address [facility] [place] [address] [place] [address] Care Team Providers Care Hide And Skin Colerer Name Role Phone Frieda Wasserman MD Primary Care Provider Unavailab le Encounter Details Date Type Department Care Team (Late st Contact Info) Description 02/13/2020 Orders Only [facility] [address] [facility] [address] [place] [phone] Ronel Hoang, RN Social History Tobacco Use Types Packs/Day [...] HHS/HCC) documented in this encounter Care Teams Hide And Skin Colerer Relationship Specialty Start Date End Date Frieda Wasserman MD PCP - General INTERNAL MEDICINE 08/31/18 02/23/20 documented as of this encounter
--- OUTSIDE RECORDS SUMMARY | 2024-09-21 01:17 | XMS_ITS | Encounter Summary ---
Author Organization [facility] Address [address] [facility] [place] [address] [place] [address] Care Team Providers Care Capsule Maker Name Role Phone Beni Cevallos MD Primary Care Provider Unavailab le Reason for Visit * Reason Comments [facility] routine Encounter Details Date Type Department Care Team (Late st Contact Info) Description 11/03/2019 2:00 PM LYMPHEDEMA THERAPIST [facility] [place] [address] Beni Cevallos MD [facility] (routine) Social History Tobacco Use Types Packs/Day Years Used Date Smoking Tobacco: Unknown Comments Unknown Sex and Gender Information Value Date Recorded Sex Assigned at Not on file Legal Sex Female 10:25 PM CDT Gender Identity Not on file Sexual Orientation Not on file documented as of this encounter Last Filed Vital Signs Vital Sign Reading Time Taken Comments Blood Pressure 118/64 11/03/2019 1:10 PM LYMPHEDEMA THERAPIST Pulse 68 11/03/2019 1:10 PM LYMPHEDEMA THERAPIST Temperature 37 ??C (98.6 ??F) 11/03/2019 1:10 PM LYMPHEDEMA THERAPIST Respiratory Rate 16 11/03/2019 1:10 PM LYMPHEDEMA THERAPIST Oxygen Saturation - - Inhaled Oxygen Concentration - - Weight - - Height - - Body Mass Index - - documented in this encounter Progress Notes * Beni Cevallos MD - 11/03/2019 2:00 PM CST Reason for Visit: [facility] (routine) History of Present Illness: Emelina is being seen for routine follow up of multiple medical issues at [facility].?? Dementia: stable complete care, advanced dementia. requires feeding ?? HTN controlled DMII A1c 7.2 in Jun. Just on low dose glimepiride now??and ok given her comorbidities MS. non weight bearing uses gabriel lift ROS: Review of Systems Constitutional: Negative for chills, fever and malaise/fatigue. Respiratory: Negative for cough and shortness of breath. Cardiovascular: Negative for chest pain and leg swelling. Gastrointestinal: Negative for abdominal pain, constipation, diarrhea and nausea. Neurological: Positive for speech change and focal weakness. Negative for dizziness. Psychiatric/Behavioral: Positive for memory loss. Negative for depression. Medications: Current Outpatient Medications: ??? acetaminophen 325 [...] Disp: , Rfl: ??? vitamin D2, ergocalciferol, [address]228 UNITS capsule, Take 2 capsules by mouth once a week. , Disp: , Rfl: Allergies Allergen Reactions ??? Metronidazole Unknown Past Medical History: Diagnosis Date ??? Cholecystitis, unspecified 02/09/2019 ??? Chronic indwelling Zhang catheter No past surgical history on file. Social History Socioeconomic History ??? Marital status: Unknown Spouse name: Not on file ??? Number of children: Not on file ??? Years of education: Not on file ??? Highest education level: Not on file Occupational History ??? Not on file Social Needs ??? Financial resource strain: Not on file ??? Food insecurity: Worry: Not on file Inability: Not on file ??? Transportation needs: Medical: Not on file Non-medical: Not on file Tobacco Use ??? Smoking status: Unknown If Ever Smoked Substance and Sexual Activity ??? Alcohol use: Not on file ??? Drug use: Not on file ??? Sexual activity: Not on file Lifestyle ??? Physical activity: Days per week: Not on file Minutes per session: Not on file ??? Stress: Not on file Relationships ??? Social connections: Talks on phone: Not on file Gets together: Not on file Attends restoration service: Not on file Active member of club or organization: Not on file Attends meetings of clubs or organizations: Not on file Relationship status: Not on file ??? Intimate partner violence: Fear of current or ex partner: Not on file Emotionally abused: Not on file Physically abused: Not on file Forced sexual activity: Not on file Other Topics Concern ??? Not on file Social History Narrative LIVES AT [facility] Family History Family history unknown: Yes No family status information on file. Filed Vitals: 11/03/19 1310 BP: 118/64 Pulse: 68 Resp: 16 Temp: 98.6 ??F (37 ??C) Physical Exam Constitutional: She appears well-developed and well-nourished. HENT: Head: Normocephalic and atraumatic. Eyes: Pupils are equal, round, and reactive to light. Conjunctivae are normal. Neck: No JVD present. Cardiovascular: Normal rate, regular rhythm and normal heart sounds. No murmur heard. Pulmonary/Chest: No respiratory distress. She has no wheezes. Abdominal: Soft. She exhibits no distension and no mass. There is no tenderness. There is no guarding. Musculoskeletal: She exhibits no edema or tenderness. Lymphadenopathy: She has no cervical adenopathy. Neurological: She is alert. She is disoriented. Gait (gabriel lift, wheelchair) abnormal. Skin: bilat buttocks with large red patch Psychiatric: She has a normal mood and affect. Her behavior is normal. Cognition and memory are impaired. She is noncommunicative. She exhibits abnormal recent memory and abnormal remote memory. Diagnoses/Impression: Emelina was seen today for assisted. Diagnoses and all orders for this visit: Late onset Alzheimer's disease without behavioral disturbance (CMS/HCC) Essential hypertension Type 2 diabetes mellitus with diabetic polyneuropathy, without long-term current use of insulin (CMS/HCC) Generalized multiple sclerosis (CMS/HCC) Stable on current regimen Recommendations and Plan: Con't current plan of care Labs and meds reviewed RTC monthly or sooner if needed BENI CEVALLOS MD HEDEMA THERAPIST documented in this encounter Plan of Treatment Not on file documented as of this encounter Visit Diagnoses Diagnosis Late onset Alzheimer's disease without behavioral disturbance (CMS/HCC HHS/HCC)- Primary Essential hypertension Unspecified essential hypertension Type 2 diabetes mellitus with diabetic polyneuropathy, without long-term current use of insulin (CMS/HCC HHS/HCC) Generalized multiple sclerosis (CMS/HCC HHS/HCC) Multiple sclerosis documented in this encounter Care Teams Capsule Maker Relationship Specialty Start Date End Date Beni Cevallos MD PCP - General INTERNAL MEDICINE 08/31/18 02/23/20 documented as of this encounter
--- OUTSIDE RECORDS SUMMARY | 2024-09-21 01:17 | XMS_ITS | Encounter Summary ---
Author Organization [facility] Address [facility] [facility] [place] [address] [place] [address] Care Team Providers Care Electrician Control Equipment Name Role Phone Yolanda Dorsey PINKING SEWING MACHINE OPERATOR Unavailable Jayesh Lara DO Primary Care Provider [phone] Reason for Visit * Reason Onset Date Comments Fax Documentation 03/02/2020 lab results Encounter Details Date Type Department Care Team (Latest Contact Info) Description 03/02/2020 TECHNICAL ILLUSTRATOR ONLY [facility] [address] [address] Yolanda Dorsey, SHANKAR [address] [address] Fax Documentation (lab results) Social [...] AM CDT documented as of this encounter Progress Notes * Dorothy Kwong - 03/02/2020 2:31 PM CDT Lab results: Glucose 335, Creatinine 1.10, AST 59, ALT 81, Triglyceride 735, A1C 8.2 Order: Increase atorvastatin to 80 mg po daily. Increase glimepiride to 2mg po daily. Repeat A1C in3 months. documented in this encounter Plan of Treatment Not on file documented as of this encounter Visit Diagnoses Not on filedocumented in this encounter Care Teams Electrician Control Equipment Relationship Specialty Start Date End Date Jayesh Lara DO PCP - General INTERNAL MEDICINE 02/24/20 12/12/20 Yolanda Dorsey NP Nurse Practitioner Nurse Practitioner Family 02/24/20 01/23/21 documented as of this encounter
--- OUTSIDE RECORDS SUMMARY | 2024-09-21 01:17 | XMS_ITS | Encounter Summary ---
Author Organization [facility] Address [address] [facility] [place] [address] [place] [address] Care Team Providers Care Still Operator Brandy Name Role Phone Frieda Wasserman MD Primary Care Provider Unavailab le Encounter Details Date Type Department Care Team (Late st Contact Info) Description 08/15/[address] [facility] [address] [facility] [address] [place] [phone] Ronel Hoang, RN Social History Tobacco Use [...] HHS/HCC) documented in this encounter Care Teams Still Operator Brandy Relationship Specialty Start Date End Date Frieda Wasserman MD PCP - General INTERNAL MEDICINE 08/31/18 02/23/20 documented as of this encounter
--- OUTSIDE RECORDS SUMMARY | 2024-09-21 01:17 | XMS_ITS | Encounter Summary ---
Author Organization [facility] Address [facility] [place] [address] [place] [address] Care Team Providers Care Contour Grinder Name Role Phone Yolanda Dorsey AUTO TRANSMISSION MECHANIC Unavailable Jayesh Lara DO Primary Care Provider [phone] Encounter Details Date Type Department Care Team (Late st Contact Info) Description 03/02/2020 Orders Only [facility] [address] [place], [place] [id number] Yolanda Dorsey, SHANKAR [address] [address] Social History Tobacco Use Types [...] this encounter Results * (ABNORMAL) HEMOGLOBIN, GLYCOSYLATED (03/02/2020 10:25 AM CDT) Pathologist [facility] HGB A1C 8.2(H) <5.7 % 03/02/2020 12:09 PM CDT [facility] Comment: INCREASED RISK OF DIABETES <5.7% ?NON-DIABETES 5.7-6.4% INCREASED RISK FOR FUTURE DIABETES > OR = 6.5 CONSISTENT WITH DIABETES STANDARDS OF MEDICAL CARE IN DIABETES-2010 DIABETES CARE, 33(SUPP 1): S1-S61,2010 03/02/2020 10:2 5 AM CDT Yolanda Dorsey NP LABORATORY Final Result [facility] [address] [place] [address], * (ABNORMAL) CBC W/DIFF AUTOMATED (03/02/2020 10:25 AM CDT) Pathologist [facility] WBC 6.3 4.4 - 11.0 x10'3/uL 03/02/2020 11:22 AM CDT [facility] RBC 5.18(H) 4.50 - 5.10 x10'6/uL 03/02/2020 11:22 AM CDT [facility] HGB 15.7(H) 12.3 - 15.3 G/DL 03/02/2020 11:22 AM CDT [facility] HCT 47.6(H) 35.9 - 44.6 % 03/02/2020 11:22 AM CDT [facility] MCV 91.9 80.0 - 96.0 FL 03/02/2020 11:22 AM CDT [facility] MCH 30.3 25.3 - 30.9 PG 03/02/2020 11:22 AM CDT [facility] MCHC 33.0 31.0 - 34.1 G/DL 03/02/2020 11:[address] [facility] RDW 14.2 12.4 - 15.1 % 03/02/2020 11:[address] [facility] PLT 143(L) 151 - 353 x10'3/uL 03/02/2020 11:[address] [facility] MPV 10.9 9.6 - 12.0 FL 03/02/2020 11:[address] [facility] RBC MORPHOLOGY NORMAL 03/02/2020 11:[address] [facility] PLT MORPH. NORMAL 03/02/2020 11:[address] [facility] WBC MORPHOLOGY NORMAL 03/02/2020 11:[address] [facility] LYMPHOCYTES % 20.0 15.8 - 45.0 % 03/02/2020 11:[address] [facility] NEUTROPHILS % 75.3(H) 42.1 - 71.9 % 03/02/2020 11:[address] [facility] MONOCYTES % 3.8(L) 5.7 - 12.5 % 03/02/2020 11:[address] [facility] EOSINOPHILS 0.5 0.0 - 5.6 % 03/02/2020 11:[address] [facility] BASOPHILS 0.2 0.0 - 1.3 % 03/02/2020 11:[address] [facility] ABS. NEUTROPHILS TOTAL 4.72 1.40 - 6.00 x10'3/uL 03/02/2020 11:[address] [facility] IMMATURE GRANS % 0.2 0.0 - 0.5 % 03/02/2020 11:[address] [facility] ABS. LYMPHOCYTES 1.25 0.80 - 4.70 x10'3/uL 03/02/2020 11:[address] [facility] 03/02/2020 10:2 5 AM CDT Yolanda Dorsey SHANKAR LABORATORY Final Result [facility] [address] [place] [address], * (ABNORMAL) LIPID PANEL (03/02/2020 10:25 AM CDT) CHOLESTEROL 147 <200.0 MG/DL 03/02/2020 11:39 AM CDT [facility] TRIGLYCERIDES 735(H) <150 MG/DL 03/02/2020 11:39 AM T [facility] Comment:REFLEXED DIRECT LDL DUE TO TRIG >400. HDL 41 >40.0 MG/DL 03/02/2020 11:39 AM T [facility] LDL (CALCULATED) NOT CALCULATED <100 MG/DL 03/02/2020 11:39 AM T [facility] Comment:TRIGLYCERIDE >400 IN VALIDATES FRACTIONATION. NON HDL CHOLESTEROL 106 <130 MG/DL 03/02/2020 11:39 AM T [facility] CHOL/HDL RATIO 3.6 0.0 - 4.5 03/02/2020 11:[address] [facility] VLDL CALCULATION NOT CALCULATED 5 - 55 MG/DL 03/02/2020 11:39 AM T [facility] Comment:TRIGLYCERIDE >400 IN VALIDATES FRACTIONATION. LIPID INTERPRETATION 03/02/2020 11:39 AM T [facility] Comment: NIH CONCENSUS [...] ?HDL ?<40 ?--- ?LDL ? >=160 ?>=130 03/02/2020 10:2 5 AM CDT us Yolanda Dorsey AUTO TRANSMISSION MECHANIC LABORATORY Final Result [facility] [address] [place] [address], * VITAMIN D, 25 OH (03/02/2020 10:25 AM CDT) VITAMIN D 25 HYDROXY S/P/B 39 30 - 100 NG/ML 03/02/2020 6:07 PM CDT [facility] Comment: ? INTERPRETATION ? DEFICIENT ??<20 ? INSUFFICIENT 20-29 ?SUFFICIENT 30-100 03/02/2020 10:2 5 AM CDT Yolanda Dorsey NP LABORATORY Final Result [facility] [address] [place] [address], * (ABNORMAL) COMPREHENSIVE METABOLIC PANEL (03/02/2020 10:25 AM CDT) GLUCOSE 335(H) 70 - 99 MG/DL 03/02/2020 11:39 AM CDT [facility] BUN 12 7 - 18 MG/DL 03/02/2020 11:39 AM CDT [facility] CREATININE S/P/B 1.10(H) 0.55 - 1.02 MG/DL 03/02/2020 11:39 AM CDT [facility] SODIUM S/P/B 141 136 - 145 MMOL/L 03/02/2020 11:39 AM CDT [facility] POTASSIUM S/P/B 4.2 3.5 - 5.1 MMOL/L 03/02/2020 11:39 AM CDT [facility] CHLORIDE S/P/B 103 100 - 108 MMOL/L 03/02/2020 11:39 AM CDT [facility] CO2 26.5 21 - 32 MMOL/L 03/02/2020 11:39 AM CDT [facility] CALCIUM S/P/B 9.0 8.5 - 10.1 MG/DL 03/02/2020 11:39 AM CDT [facility] BILIRUBIN TOTAL S/P/B 0.5 0.2 - 1.2 MG/DL 03/02/2020 11:[address] [facility] TOTAL PROTEIN S/P/B 6.8 6.4 - 8.2 G/DL 03/02/2020 11:[address] [facility] ALBUMIN S/P/B 3.7 3.4 - 5.0 G/DL 03/02/2020 11:[address] [facility] AST 59(H) 15 - 37 U/L 03/02/2020 11:[address] [facility] ALT 81(H) 14 - 55 U/L 03/02/2020 11:[address] [facility] ALKALINE PHOSPHATASE S/P/B 130 50 - 136 U/L 03/02/2020 11:[address] [facility] ANION GAP 11.5 5 - 15 MMOL/L 03/02/2020 11:[address] [facility] BUN CREATININE RATIO 10.9 6 - 26 03/02/2020 11:[address] [facility] A/G RATIO 1.2 1.0 - 2.0 RATIO 03/02/2020 11:[address] [facility] EGFR NON-AFR. AMER. 48(L) >90 ML/MIN/1.7 3 M2 03/02/2020 11:[address] [facility] EGFR AFR. AMER. 56(L) >90 ML/MIN/1.7 3 M2 03/02/2020 11:[address] [facility] Comment: NOTE: eGFR is not calculated for patients <18 years of age. This is an estimated GFR (CKD EPI) and should not be used for calculating drug doses. 03/02/2020 10:2 5 AM CDT Yolanda Dorsey NP LABORATORY Final Result [facility] [address] [place] [address], documented in this encounter Visit Diagnoses Diagnosis Diabetes mellitus (CMS/HCC HHS/HCC)- Primary Type II or unspecified type diabetes mellitus without mention of complication, not stated as uncontrolled Hyperlipemia Other and unspecified hyperlipidemia HTN (hypertension) Unspecified essential hypertension Vitamin D deficiency Unspecified vitamin D deficiency documented in this encounter Care Teams Contour Grinder Relationship Specialty Start Date End Date Jayesh Lara DO PCP - General INTERNAL MEDICINE 02/24/20 12/12/20 Yolanda Dorsey NP Nurse Practitioner Nurse Practitioner Family 02/24/20 01/23/21 documented as of this encounter
--- OUTSIDE RECORDS SUMMARY | 2024-09-21 01:17 | XMS_ITS | Encounter Summary ---
Author Organization [facility] Address [address] [place] [address] [place] [address] Care Team Providers Care Sterile Proc Tech Name Role Phone Frieda Wasserman MD Primary Care Provider Unavailab le Encounter Details Date Type Department Care Team (Late st Contact Info) Description 01/31/2020 Chart Prep [facility] [address] [facility] [address] [place] [address] Frieda Wasserman MD Social History Tobacco Use Types Packs/Day Years [...] on filedocumented in this encounter Care Teams Sterile Proc Tech Relationship Specialty Start Date End Date Frieda Wasserman MD PCP - General INTERNAL MEDICINE 08/31/18 02/23/20 documented as of this encounter
--- OUTSIDE RECORDS SUMMARY | 2024-09-21 01:17 | XMS_ITS | Encounter Summary ---
Author Organization [facility] Address [address] [facility] [place] [address] [place] [address] Care Team Providers Care Color Laboratory Technician Name Role Phone Frieda Wasserman MD Primary Care Provider Unavailab le Encounter Details Date Type Department Care Team (Late st Contact Info) Description 11/14/2019 Orders Only [facility] [address] [facility] [address] [place] [phone] Ronel Hoang, RN Social History Tobacco Use [...] HHS/HCC) documented in this encounter Care Teams Color Laboratory Technician Relationship Specialty Start Date End Date Frieda Wasserman MD PCP - General INTERNAL MEDICINE 08/31/18 02/23/20 documented as of this encounter
--- OUTSIDE RECORDS SUMMARY | 2024-09-21 01:17 | XMS_ITS | Encounter Summary ---
Author Organization [facility] Address [address] [facility] [place] [address] [place] [address] Care Team Providers Care Senior Outside Sales Representative Name Role Phone Beni Cevallos MD Primary Care Provider Unavailab le Reason for Visit * Reason Comments Custodial routine follow up Encounter Details Date Type Department Care Team (Late st Contact Info) Description 06/30/2019 5:00 PM CDT Custodial [facility] [address] [place] [address] [address] [place] [address] Beni Cevallos MD Custodial (routine follow up ) Social History Tobacco Use Types Packs/Day Years Used Date Smoking Tobacco: Unknown Comments Unknown Sex and Gender Information Value Date Recorded Sex Assigned at Not on file Legal Sex Female 10:25 PM CDT Gender Identity Not on file Sexual Orientation Not on file documented as of this encounter Last Filed Vital Signs Vital Sign Reading Time Taken Comments Blood Pressure 126/70 07/01/2019 8:46 AM CDT Pulse 68 07/01/2019 8:46 AM CDT Temperature 36.5 ??C (97.7 ??F) 07/01/2019 8:46 AM CD T Respiratory Rate 18 07/01/2019 8:46 AM CDT Oxygen Saturation - - Inhaled Oxygen Concentration - - Weight 70.4 kg (155 lb 2 oz) 07/01/2019 8:46 AM CDT Height 167.6 cm (5' 6 ) 07/01/2019 8:46 AM CDT Body Mass Index 25.04 07/01/2019 8:46 AM CDT documented in this encounter Progress Notes * Beni Cevallos MD - 06/30/2019 5:00 PM CDT Reason for Visit: Custodial (routine follow up ) History of Present Illness: Emelina is being seen for routine follow up of multiple medical issues at [facility].?? Dementia: stable complete care, advanced dementia. requires feeding ?? HTN controlled DMII A1c 7 in Apr. Just on low dose glimepiride now??and ok given her comorbidities MS. non weight bearing uses gabriel lift Rash: significant on bottom. Only thing that seemed to help was topical steroids. Started on low dose oral prednisone last week and that seemed to help Joanna saw last week for vaginal discharge tried diflucan, on Thursday joanna saw and ordered PRN nystatin cream no further ROS: Review of Systems Constitutional: Negative for [...] Rfl: ??? glimepiride 1 MG tablet, Take 0.5 tablets by mouth daily., Disp: , Rfl: ??? HYDROCORTISONE 1 % [...] 0 ??? magnesium gluconate (MAG-G) tablet, Take 500 mg by mouth 2 (two) times daily., Disp: , Rfl: ??? Magnesium Hydroxide (MILK [...] Disp: , Rfl: ??? vitamin D2, ergocalciferol, 37537 UNITS capsule, Take 2 capsules by mouth [...] file Gets together: Not on file Attends yarsanism service: Not on file Active member of [...] on file Social History Narrative LIVES AT [facility] Family History Family history unknown: Yes No family status information on file. Filed Vitals: 07/01/19 0846 BP: 126/70 Pulse: 68 Resp: 18 Temp: 97.7 ??F (36.5 ??C) Weight: 70.4 kg (155 lb 2 oz) Height: 5' 6 (1.676 m) Physical Exam Constitutional: She appears well-developed and well-nourished. HENT: Head: Normocephalic and atraumatic. Eyes: Conjunctivae are normal. Pupils are equal, round, and reactive to light. Neck: No JVD present. Cardiovascular: Normal rate, [...] memory. Diagnoses/Impression: Emelina was seen today for skilled nursing. Diagnoses and all orders for this visit: Late onset Alzheimer's disease without behavioral disturbance (CMS/HCC) Type 2 diabetes mellitus with diabetic polyneuropathy, without long-term current use of insulin (CMS/HCC) Generalized multiple sclerosis (CMS/HCC) Essential hypertension Stable on current regimen Recommendations and Plan: Con't current plan of care except as above Labs and meds reviewed RTC monthly or sooner if needed BENI CEVALLOS MD documented in this encounter Plan of Treatment Not on file documented as of this encounter Visit Diagnoses Diagnosis Late onset Alzheimer's disease without behavioral disturbance (CMS/HCC HHS/HCC)- Primary Type 2 diabetes mellitus with diabetic polyneuropathy, without long-term current use of insulin (CMS/HCC HHS/HCC) Generalized multiple sclerosis (CMS/HCC HHS/HCC) Multiple sclerosis Essential hypertension Unspecified essential hypertension documented in this encounter Care Teams Senior Outside Sales Representative Relationship Specialty Start Date End Date Beni Cevallos MD PCP - General INTERNAL MEDICINE 08/31/18 02/23/20 documented as of this encounter
--- OUTSIDE RECORDS SUMMARY | 2024-09-21 01:17 | XMS_ITS | Encounter Summary ---
Author Organization [facility] Address [address] [facility] [place] [address] [place] [address] Care Team Providers Care Hr Payroll Coordinator Name Role Phone Frieda Wasserman MD Primary Care Provider Unavailab le Encounter Details Date Type Department Care Team (Late st Contact Info) Description 07/29/2019 Chart Prep [facility] [address] [facility] [address] [place] [address] Yolanda Dorsey, HIGHWAY ENGINEER [address] [address] Social History Tobacco Use Types Packs/Day Years [...] on filedocumented in this encounter Care Teams Hr Payroll Coordinator Relationship Specialty Start Date End Date Frieda Wasserman MD PCP - General INTERNAL MEDICINE 08/31/18 02/23/20 documented as of this encounter
--- OUTSIDE RECORDS SUMMARY | 2024-09-21 01:17 | XMS_ITS | Encounter Summary ---
Author Organization [facility] Address [address] [facility] [place] [address] [place] [address] Care Team Providers Care Weight Reducing Technician Name Role Phone Frieda Wasserman MD Primary Care Provider Unavailab le Reason for Visit * Reason Comments Shelter acute vaginal exam Encounter Details Date Type Department Care Team (Late st Contact Info) Description 06/27/2019 10:00 AM CDT Shelter [facility] [address] [facility] [address] [place] [address] Yolanda Dorsey, SHANKAR [address] [address] Shelter (acute vaginal exam) Social History Tobacco Use Types Packs/Day Years Used Date Smoking Tobacco: Unknown Comments Unknown Sex and Gender Information Value Date Recorded Sex Assigned at Not on file Legal Sex Female 10:25 PM CDT Gender Identity Not on file Sexual Orientation Not on file documented as of this encounter Last Filed Vital Signs Vital Sign Reading Time Taken Comments Blood Pressure 124/66 06/27/2019 10:56 AM CDT Pulse 70 06/27/2019 10:56 AM CDT Temperature 36.5 ??C (97.7 ??F) 06/27/2019 10:56 AM C DT Respiratory Rate 18 06/27/2019 10:56 AM CDT Oxygen Saturation 95% 06/27/2019 10:56 AM CDT Inhaled Oxygen Concentration - - Weight - - Height - - Body Mass Index - - documented in this encounter Progress Notes * Yolanda Pryor NP - 06/27/2019 10:00 AM CDT Images from the original note were not included. Reason for Visit: Shelter (acute vaginal exam) History of Present Illness: Emelina Santoyo is an 79-year-old female who was seen today at [facility] for an acute visit. Patient and staff report trouble with loose stools for many months but have slightly improved. Her excoriation on her bottom has improved and is now slightly pink instead of red. Wound care is managing her excoriation. Staff reports noticing some white, cottage cheese like discharge around her labia before the weekend. A one time dose of diflucan was ordered and improvement noted. Staff denies seeing any more white or cottage cheese like discharge. She denies any pain or itching. ROS: Review of Systems Unable to perform ROS: Dementia Neurological: Positive for weakness. Psychiatric/Behavioral: Positive for memory loss. Medications: Current Outpatient Medications: ??? acetaminophen 325 [...] needed for Itching., Disp: , Rfl: ??? miconazole (MICRO GUARD) 2 % powder, Apply topically 2 (two) times daily as needed for Itching., Disp: , Rfl: [...] Disp: , Rfl: ??? vitamin D2, ergocalciferol, 93929 UNITS capsule, Take 2 capsules by mouth [...] file Gets together: Not on file Attends rastafari service: Not on file Active member of [...] on file Social History Narrative LIVES AT [facility] Family History Family history unknown: Yes No family status information on file. Filed Vitals: 06/27/19 1056 BP: 124/66 Pulse: 70 Resp: 18 Temp: 97.7 ??F (36.5 ??C) SpO2: 95% Physical Exam Constitutional: She appears well-developed and well-nourished. HENT: Head: Normocephalic and atraumatic. Cardiovascular: Normal rate, regular rhythm and normal heart sounds. Pulmonary/Chest: Effort normal and breath sounds normal. No respiratory distress. She has no wheezes. Abdominal: Soft. Bowel sounds are normal. She exhibits no distension. There is no tenderness. Genitourinary: There is no rash on the right labia. There is no rash on the left labia. No vaginal discharge found. Musculoskeletal: Normal range of motion. She exhibits no edema. Neurological: She is alert. She is disoriented. Coordination and gait (wheelchair) abnormal. Skin: Skin is warm and dry. No rash noted. No erythema. Psychiatric: Her speech is delayed. She is slowed and withdrawn. Cognition and memory are impaired.She expresses impulsivity and inappropriate judgment. She exhibits abnormal recent memory. She is inattentive. Diagnoses/Impression: 1. Candidiasis of female genitalia One-time dose of Diflucan seems to have treated candidiasis. No further discharge. Midline antifungal cream daily as needed and with incontinent episodes. 2. Late onset Alzheimer's disease without behavioral disturbance ([facility]) Recommendations and Plan: Continue current treatment plan. Staff to continue to monitor and report any changes. Follow up in one month unless necessary sooner. Yolanda Pryor NP documented in this encounter Plan of Treatment Not on file documented as of this encounter Visit Diagnoses Diagnosis Candidiasis of female genitalia- Primary Candidiasis of vulva and vagina Late onset Alzheimer's disease without behavioral disturbance (CMS/HCC [facility]/HCC) documented in this encounter Care Teams Weight Reducing Technician Relationship Specialty Start Date End Date Frieda Wasserman MD PCP - General INTERNAL MEDICINE 08/31/18 02/23/20 documented as of this encounter
--- OUTSIDE RECORDS SUMMARY | 2024-09-21 01:17 | XMS_ITS | Encounter Summary ---
Author Organization [facility] - [facility] Address [address] [facility] [place] [address] [place] [address] Care Team Providers Care Custom Grinder Name Role Phone Frieda Wasserman MD Primary Care Provider Unavailab le Encounter Details Date Type Department Care Team (Late st Contact Info) Description 12/15/2019 Orders Only [facility] [address] [facility] [address] [place] [id number] Ronel Hoang, RN Social History Tobacco Use [...] HHS/HCC) documented in this encounter Care Teams Custom Grinder Relationship Specialty Start Date End Date Frieda Wasserman MD PCP - General INTERNAL MEDICINE 08/31/18 02/23/20 documented as of this encounter
--- OUTSIDE RECORDS SUMMARY | 2024-09-21 01:17 | XMS_ITS | Encounter Summary ---
Author Organization [facility] Address [address] [facility] [place] [address] [place] [address] Care Team Providers Care Window Display Designer Name Role Phone Frieda Wasserman MD Primary Care Provider Unavailab le Encounter Details Date Type Department Care Team (Late st Contact Info) Description 10/03/2019 Chart Prep [facility] [address] [facility] [address] [place] [address] Yolanda Dorsey, WOOD PRESERVING PLANT LABORER [address] [address] Social History Tobacco Use Types Packs/Day Years [...] on filedocumented in this encounter Care Teams Window Display Designer Relationship Specialty Start Date End Date Frieda Wasserman MD PCP - General INTERNAL MEDICINE 08/31/18 02/23/20 documented as of this encounter
--- OUTSIDE RECORDS SUMMARY | 2024-09-21 01:17 | XMS_ITS | Encounter Summary ---
Author Organization [facility] Address [address] [facility] [address] [place] [address] Care Team Providers Care Application Packaging Specialist Name Role Phone Frieda Wasserman MD Primary Care Provider Unavailab le Encounter Details Date Type Department Care Team (Late st Contact Info) Description 06/30/2019 Chart Prep [facility] [address] [facility] [address] [place] [address] Frieda Wasserman MD Social History Tobacco Use [...] on filedocumented in this encounter Care Teams Application Packaging Specialist Relationship Specialty Start Date End Date Frieda Wasserman MD PCP - General INTERNAL MEDICINE 08/31/18 02/23/20 documented as of this encounter
--- OUTSIDE RECORDS SUMMARY | 2024-09-21 01:17 | XMS_ITS | Encounter Summary ---
Author Organization [facility] Address [address] [facility] [place] [address] [place] [address] Care Team Providers Care Dean Of Boys Name Role Phone Yolanda Dorsey ASSISTANT COMMUNITY DIRECTOR Unavailable aJyesh Lara DO Primary Care Provider [phone] Encounter Details Date Type Department Care Team (Latest Contact Info) Description 03/02/2020 11:11 AM CDT - 03/02/2020 11:59 PM CDT Hospital Encounter [facility] [address] [place], [place] [id number] Yolanda Dorsey NP [address] [address] Discharge Disposition: Home or Self [...] AM CDT documented as of this encounter Medications at [...] 2 mg by mouth daily. 04/19/2018 0 HYDROCORTISONE 1 % ointmentIndication s:Rash APPLY TO AFFECTED AREAS ON BUTTOCKS 2 TIMES A DAY UNTIL HEALED 28 g 1 02/22/2019 0 lisinopril 10 MG tabletIndications: Essential hypertension [...] long-term current use of insulin (CMS/HCC HHS/HCC) Take 1 capsule (150 mg total) by mouth 2 (two) times a day. 60 capsule 02/13/2020 0 magnesium gluconate (MAGONATE) tablet Take 27 [...] 2 % cream Apply topically as needed. 0 miconazole (ANTIFUNGAL) 2 % powder Apply topically as needed for Itching. 0 Multiple Vitamin (THERA-MILL) Tab Take 1 [...] (two) times daily. 2 vitamin D2, ergocalciferol, 05556 UNITS capsule Take 2 capsules by mouth once a week. Thursday12/29/2017 0 documented as of this encounter Plan of Treatment Not on file documented as of this encounter Procedures Procedure Name Priority Date/Time Associated Diagnosis Comments HEMOGLOBIN, GLYCOSYLATED Routine 03/02/2020 10:25 AM CDT Diabetes mellitus ([facility]) Hyperlipemia HTN (hypertension) COMPREHENSIVE METABOLIC PANEL Routine 03/02/2020 10:25 AM CDT Diabetes mellitus ([facility]) Hyperlipemia HTN (hypertension) LIPID PANEL Routine 03/02/2020 10:25 AM CDT Diabetes mellitus ([facility]) Hyperlipemia HTN (hypertension) LIPOPROTEIN, LDL CHOL, DIRECT Routine 03/02/2020 10:25 AM CDT CBC W/DIFF AUTOMATED Routine 03/02/2020 10:25 AM CDT Diabetes mellitus ([facility] HHS/HCC) Hyperlipemia HTN (hypertension) VITAMIN D, 25 OH Routine 03/02/2020 10:2 5 AM CDT Vitamin D deficiency Diabetes mellitus ([facility] HHS/HCC) Hyperlipemia HTN (hypertension) documented in this encounter Results * LIPOPROTEIN, LDL CHOL, DIRECT (03/02/2020 10:25 AM CDT) DIRECT LDL 37 <100 MG/DL 03/02/2020 11:50 AM CDT [facility] Comment: LDL OPTIMAL ?<100 LDL NEAR OPTIMAL ? 100-129 LDL BORDERLINE HIGH ??130-159 LDL HIGH ? 160-189 LDL VERY HIGH ?>=190 03/02/2020 10:2 5 AM CDT Yolanda Dorsey NP LABORATORY Final Result [facility] [address] [place] [address], * (ABNORMAL) COMPREHENSIVE METABOLIC PANEL (03/02/2020 10:25 AM CDT) GLUCOSE 335(H) 70 - 99 MG/DL 03/02/2020 11:39 AM CDT [facility] BUN 12 7 - 18 MG/DL 03/02/2020 11:39 AM CDT [facility] CREATININE S/P/B 1.10(H) 0.55 - 1.02 MG/DL 03/02/2020 11:39 AM CDT [facility] SODIUM S/P/B 141 136 - 145 MMOL/L 03/02/2020 11:39 AM CDT [facility] POTASSIUM S/P/B 4.2 3.5 - 5.1 MMOL/L 03/02/2020 11:39 AM [facility] CHLORIDE S/P/B 103 100 - 108 MMOL/L 03/02/2020 11:39 AM [facility] CO2 26.5 21 - 32 MMOL/L 03/02/2020 11:39 AM [facility] CALCIUM S/P/B 9.0 8.5 - 10.1 MG/DL 03/02/2020 11:39 AM [facility] BILIRUBIN TOTAL S/P/B 0.5 0.2 - 1.2 MG/DL 03/02/2020 11:39 AM [facility] TOTAL PROTEIN S/P/B 6.8 6.4 - 8.2 G/DL 03/02/2020 11:39 AM [facility] ALBUMIN S/P/B 3.7 3.4 - 5.0 G/DL 03/02/2020 11:39 AM [facility] AST 59(H) 15 - 37 U/L 03/02/2020 11:39 AM [facility] ALT 81(H) 14 - 55 U/L 03/02/2020 11:39 AM [facility] ALKALINE PHOSPHATASE S/P/B 130 50 - 136 U/L 03/02/2020 11:39 AM [facility] ANION GAP 11.5 5 - 15 MMOL/L 03/02/2020 11:39 AM [facility] BUN CREATININE RATIO 10.9 6 - 26 03/02/2020 11:39 AM [facility] A/G RATIO 1.2 1.0 - 2.0 RATIO 03/02/2020 11:39 AM [facility] EGFR NON-AFR. AMER. 48(L) >90 ML/MIN/1.7 3 M2 03/02/2020 11:39 AM CDT [facility] EGFR AFR. AMER. 56(L) >90 ML/MIN/1.7 3 M2 03/02/2020 11:39 AM CDT [facility] Comment: NOTE: eGFR is not calculated for patients <18 years of age. This is an estimated GFR (CKD EPI) and should not be used for calculating drug doses. 03/02/2020 10:2 5 AM CDT [facility] LABORATORY Final Result [facility] [address] [place] [address], [place] [phone] * VITAMIN D, 25 OH (03/02/2020 10:25 AM CDT) VITAMIN D 25 HYDROXY S/P/B 39 30 - 100 NG/ML 03/02/2020 6:07 PM CDT [facility] Comment: ? INTERPRETATION ? DEFICIENT ??<20 ? INSUFFICIENT 20-29 ?SUFFICIENT 30-100 03/02/2020 10:2 5 AM CDT Yolanda Dorsey NP LABORATORY Final Result [facility] [address] [place] [address], [place] [phone] * (ABNORMAL) LIPID PANEL (03/02/2020 10:25 AM CDT) CHOLESTEROL 147 <200.0 MG/DL 03/02/2020 11:39 AM CDT [facility] TRIGLYCERIDES 735(H) <150 MG/DL 03/02/2020 11:39 AM [facility] Comment:REFLEXED DIRECT LDL DUE TO TRIG >400. HDL 41 >40.0 MG/DL 03/02/2020 11:39 AM [facility] LDL (CALCULATED) NOT CALCULATED <100 MG/DL 03/02/2020 11:39 AM [facility] Comment:TRIGLYCERIDE >400 IN VALIDATES FRACTIONATION. NON HDL CHOLESTEROL 106 <130 MG/DL 03/02/2020 11:39 AM [facility] CHOL/HDL RATIO 3.6 0.0 - 4.5 03/02/2020 11:39 AM [facility] VLDL CALCULATION NOT CALCULATED 5 - 55 MG/DL 03/02/2020 11:39 AM [facility] Comment:TRIGLYCERIDE >400 IN VALIDATES FRACTIONATION. LIPID INTERPRETATION 03/02/2020 11:39 AM [facility] Comment: NIH CONCENSUS REPORT RECOMMENDATIONS: [...] >=160 ?>=130 03/02/2020 10:2 5 AM CDT Yolanda Dorsey ASSISTANT COMMUNITY DIRECTOR LABORATORY Final Result Performing Organization Address City/State/[facility] Co de Phone Number [facility] [address] [place] [address], * (ABNORMAL) CBC W/DIFF AUTOMATED (03/02/2020 10:25 AM CDT) WBC 6.3 4.4 - 11.0 x10'3/uL 03/02/2020 11:22 AM CDT [facility] RBC 5.18(H) 4.50 - 5.10 x10'6/uL 03/02/2020 11:22 AM CDT [facility] HGB 15.7(H) 12.3 - 15.3 G/DL 03/02/2020 11:22 AM CDT [facility] HCT 47.6(H) 35.9 - 44.6 % 03/02/2020 11:22 AM CDT [facility] MCV 91.9 80.0 - 96.0 FL 03/02/2020 11:22 AM CDT [facility] MCH 30.3 25.3 - 30.9 PG 03/02/2020 11:22 AM T [facility] MCHC 33.0 31.0 - 34.1 G/DL 03/02/2020 11:22 AM [facility] RDW 14.2 12.4 - 15.1 % 03/02/2020 11:22 AM [facility] PLT 143(L) 151 - 353 x10'3/uL 03/02/2020 11:22 AM T [facility] MPV 10.9 9.6 - 12.0 FL 03/02/2020 11:22 AM [facility] RBC MORPHOLOGY NORMAL 03/02/2020 11:22 AM [facility] PLT MORPH. NORMAL 03/02/2020 11:22 AM [facility] WBC MORPHOLOGY NORMAL 03/02/2020 11:22 AM [facility] LYMPHOCYTES % 20.0 15.8 - 45.0 % 03/02/2020 11:22 AM [facility] NEUTROPHILS % 75.3(H) 42.1 - 71.9 % 03/02/2020 11:22 AM [facility] MONOCYTES % 3.8(L) 5.7 - 12.5 % 03/02/2020 11:22 AM [facility] EOSINOPHILS 0.5 0.0 - 5.6 % 03/02/2020 11:22 AM [facility] BASOPHILS 0.2 0.0 - 1.3 % 03/02/2020 11:22 AM [facility] ABS. NEUTROPHILS TOTAL 4.72 1.40 - 6.00 x10'3/uL 03/02/2020 11:22 AM [facility] IMMATURE GRANS % 0.2 0.0 - 0.5 % 03/02/2020 11:22 AM CDT [facility] ABS. LYMPHOCYTES 1.25 0.80 - 4.70 x10'3/uL 03/02/2020 11:22 AM CDT [facility] 03/02/2020 10:2 5 AM CDT Yolanda Sunita ASSISTANT COMMUNITY DIRECTOR LABORATORY Final Result [facility] [address] [place] [address], [place] [phone] * (ABNORMAL) HEMOGLOBIN, GLYCOSYLATED (03/02/2020 10:25 AM CDT) HGB A1C 8.2(H) <5.7 % 03/02/2020 12:09 PM CDT [facility] Comment: INCREASED RISK OF DIABETES <5.7% ?NON-DIABETES 5.7-6.4% INCREASED RISK FOR FUTURE DIABETES > OR = 6.5 CONSISTENT WITH DIABETES STANDARDS OF MEDICAL CARE IN DIABETES-2010 DIABETES CARE, 33(SUPP 1): S1-S61,2010 03/02/2020 10:2 5 AM CDT us Yolanda Dorsey ASSISTANT COMMUNITY DIRECTOR LABORATORY Final Result Performing Organization Address City/[facility]/ZIP Co de Phone Number [facility] [address] [place] [address], [place] [phone] documented in this encounter Visit Diagnoses Diagnosis Diabetes mellitus (CMS/HCC HHS/HCC) Type II or unspecified type diabetes mellitus without mention of complication, not stated as uncontrolled Hyperlipemia Other and unspecified hyperlipidemia HTN (hypertension) Unspecified essential hypertension Vitamin D deficiency Unspecified vitamin D deficiency documented in this encounter Care Teams Dean Of Boys Relationship Specialty Start Date End Date Jayesh Lara DO PCP - General INTERNAL MEDICINE 02/24/20 12/12/20 Yolanda Dorsey NP Nurse Practitioner Nurse Practitioner Family 02/24/20 01/23/21 documented as of this encounter
--- OUTSIDE RECORDS SUMMARY | 2024-09-21 01:17 | XMS_ITS | Encounter Summary ---
Author Organization [facility] Address [address] [place] [address] [place] [address] Care Team Providers Care Chicken Boner Name Role Phone Frieda Wasserman MD Primary Care Provider Unavailab le Encounter Details Date Type Department Care Team (Latest Contact Info) Description 07/06/2019 Scan HEALTH INFO SRVCS Scanned, Documents Social [...] on filedocumented in this encounter Care Teams Chicken Boner Relationship Specialty Start Date End Date Frieda Wasserman MD PCP - General INTERNAL MEDICINE 08/31/18 02/23/20 documented as of this encounter
--- OUTSIDE RECORDS SUMMARY | 2024-09-21 01:17 | XMS_ITS | Encounter Summary ---
Author Organization [facility] Address [facility] [place] [address] [place] [address] Care Team Providers Care Dynamometer Mechanic Name Role Phone Yolanda Dorsey EXTERMINATION SUPERVISOR Unavailable Jayesh Lara DO Primary Care Provider [phone] Encounter Details Date Type Department Care Team (Late st Contact Info) Description 02/29/[address] [facility] [address] [facility] [address] [place] [address] Yolanda Dorsey NP [address] [id number] Social History Tobacco Use Types Packs/Day Years [...] on filedocumented in this encounter Care Teams Dynamometer Mechanic Relationship Specialty Start Date End Date Jayesh Lara DO PCP - General INTERNAL MEDICINE 02/24/20 12/12/20 Yolanda Dorsey NP Nurse Practitioner Nurse Practitioner Family 02/24/20 01/23/21 documented as of this encounter
--- OUTSIDE RECORDS SUMMARY | 2024-09-21 01:17 | XMS_ITS | Encounter Summary ---
Author Organization [facility] Address [address] [facility] [place] [address] [place] [address] Care Team Providers Care Security Guard Dispatcher Name Role Phone Frieda Wasserman MD Primary Care Provider Unavailab le Encounter Details Date Type Department Care Team (Latest Contact Info) Description 07/06/2019 10:15 AM CDT - 07/06/2019 11:59 PM CDT Hospital Encounter [facility] [address] [place], [place] [id number] Yolanda Dorsey NP [address] [address] Discharge Disposition: Home or Self Care (Routine [...] muscle monthly. Give on of month 2 dextromethorphan-g uaifenesin 10-100 MG/5ML liquid Take [...] polyneuropathy, without long-term current use of insulin ([facility]/HCC HHS/[facility]) Take 1 capsule (150 mg total) by mouth 2 (two) times a day. 60 capsule 06/10/2019 9 magnesium gluconate (MAGONATE) tablet Take 27 mg [...] times daily. 2 miconazole (ANTIFUNGAL) 2 % powder Apply topically [...] (two) times daily. 2 vitamin D2, ergocalciferol, [address] UNITS capsule Take 2 capsules by mouth once a week. Thursday12/29/2017 0 documented as of this encounter Progress Notes * Yolanda Pryor NP - 07/06/2019 1:48 PM CDT Increase glimepiride to 2mg PO daily. Add A1C to Q6 month lab draws. * Yolanda Pryor NP - 07/06/2019 10:46 AM CDT NNO. documented in this encounter Plan of Treatment Not on file documented as of this encounter Procedures Procedure Name Priority Date/Time Associated Diagnosis Comments HEMOGLOBIN, GLYCOSYLATED Routine 07/06/2019 8:50 AM CDT Hypouricemia Abnormal liver function COMPREHENSIVE METABOLIC PANEL Routine 07/06/2019 8:50 AM CDT Hypouricemia Abnormal liver function DIRECT BILIRUBIN Routine 07/06/2019 8:50 AM CDT Hypouricemia Abnormal liver function documented in this encounter Results * DIRECT BILIRUBIN (07/06/2019 8:50 AM CDT) BILIRUBIN DIRECT S/P/B 0.1 0.0 - 0.20 MG/DL 07/06/2019 10:42 AM CDT [facility] 07/06/2019 8:50 AM CDT us Yolanda Dorsey NP LABORATORY Edited Result - Final [facility] [address] [place] [address], [place] [phone] * (ABNORMAL) COMPREHENSIVE METABOLIC PANEL (07/06/2019 8:50 AM CDT) GLUCOSE 218(H) 70 - 99 MG/DL 07/06/2019 10:42 AM CDT [facility] BUN 12 7 - 18 MG/DL 07/06/2019 10:42 AM T [facility] CREATININE S/P/B 0.91 0.55 - 1.02 MG/DL 07/06/2019 10:42 AM CDT [facility] SODIUM S/P/B 142 136 - 145 MMOL/L 07/06/2019 10:42 AM T [facility] POTASSIUM S/P/B 4.3 3.5 - 5.1 MMOL/L 07/06/2019 10:42 AM CDT [facility] CHLORIDE S/P/B 103 100 - 108 MMOL/L 07/06/2019 10:42 AM CDT [facility] CO2 29.2 21 - 32 MMOL/L 07/06/2019 10:42 AM CDT [facility] CALCIUM S/P/B 9.4 8.5 - 10.1 MG/DL 07/06/2019 10:42 AM CDT [facility] BILIRUBIN TOTAL S/P/B 0.5 0.2 - 1.2 MG/DL 07/06/2019 10:[address] [facility] TOTAL PROTEIN S/P/B 7.0 6.4 - 8.2 G/DL 07/06/2019 10:[address] [facility] ALBUMIN S/P/B 3.6 3.4 - 5.0 G/DL 07/06/2019 10:[address] [facility] AST 66(H) 15 - 37 U/L 07/06/2019 10:[address] [facility] ALT 83(H) 14 - 55 U/L 07/06/2019 10:[address] [facility] ALKALINE PHOSPHATASE S/P/B 119 50 - 136 U/L 07/06/2019 10:[address] [facility] ANION GAP 9.8 5 - 15 MMOL/L 07/06/2019 10:[address] [facility] BUN CREATININE RATIO 13.2 6 - 26 07/06/2019 10:[address] [facility] A/G RATIO 1.1 1.0 - 2.0 RATIO 07/06/2019 10:[address] [facility] EGFR NON-AFR. AMER. 61(L) >90 ML/MIN/1.7 3 M2 07/06/2019 10:[address] [facility] EGFR AFR. AMER. 71(L) >90 ML/MIN/1.7 3 M2 07/06/2019 10:[address] [facility] Comment: NOTE: eGFR is not calculated for patients <18 years of age. This is an estimated GFR (CKD EPI) and should not be used for calculating drug doses. 07/06/2019 8:50 AM CDT Yolanda Dorsey NP LABORATORY Edited Result - Final [facility] [address] [place] [address], [place] [phone] * (ABNORMAL) HEMOGLOBIN, GLYCOSYLATED (07/06/2019 8:50 AM CDT) HGB A1C 7.2(H) <5.7 % 07/06/2019 1:12 PM CDT [facility] Comment: INCREASED RISK OF DIABETES <5.7% ?NON-DIABETES 5.7-6.4% INCREASED RISK FOR FUTURE DIABETES > OR = 6.5 CONSISTENT WITH DIABETES STANDARDS OF MEDICAL CARE IN DIABETES-2010 DIABETES CARE, 33(SUPP 1): S1-S61,2009 07/06/2019 8:50 AM CDT us Yolanda Dorsey NP LABORATORY Edited Result - Final Performing Organization Address [facility] Co de Phone Number [facility] [address] [place] [address], [place] [phone] documented in this encounter Visit Diagnoses Diagnosis Hypouricemia Other abnormal blood chemistry Abnormal liver function Unspecified disorder of liver documented in this encounter Care Teams Security Guard Dispatcher Relationship Specialty Start Date End Date Frieda Wasserman MD PCP - General INTERNAL MEDICINE 08/31/18 02/23/20 documented as of this encounter
--- OUTSIDE RECORDS SUMMARY | 2024-09-21 01:17 | XMS_ITS | Encounter Summary ---
Author Organization [facility] Address [facility] [place] [address] [place] [address] Care Team Providers Care Ready To Wear Department Manager Name Role Phone Yolanda Dorsey FINANCE TEACHER Unavailable Jayesh Lara DO Primary Care Provider [phone] Encounter Details Date Type Department Care Team (Latest Contact Info) Description 03/02/2020 Scan HEALTH INFO SRVCS Scanned, Documents Social [...] on filedocumented in this encounter Care Teams Ready To Wear Department Manager Relationship Specialty Start Date End Date Jayesh Lara DO PCP - General INTERNAL MEDICINE 02/24/20 12/12/20 Yolanda Dorsey NP Nurse Practitioner Nurse Practitioner Family 02/24/20 01/23/21 documented as of this encounter
--- OUTSIDE RECORDS SUMMARY | 2024-09-21 01:17 | XMS_ITS | Encounter Summary ---
Author Organization [facility] Address [address] [facility] [place] [place] [address] [place] [address] Care Team Providers Care Patch Driller Name Role Phone Frieda Wasserman MD Primary Care Provider Unavailab le Encounter Details Date Type Department Care Team (Latest Contact Info) Description 02/01/2020 Travel Social History Tobacco Use Types Packs/Day [...] on filedocumented in this encounter Care Teams Patch Driller Relationship Specialty Start Date End Date Frieda Wasserman MD PCP - General INTERNAL MEDICINE 08/31/18 02/23/20 documented as of this encounter
--- OUTSIDE RECORDS SUMMARY | 2024-09-21 01:17 | XMS_ITS | Encounter Summary ---
Author Organization [facility] Address [address] [facility] [place] [place] [address] [place] [address] Care Team Providers Care Vice President Financial Name Role Phone Beni Cevallos MD Primary Care Provider Unavailab le Reason for Visit * Reason Comments Assisted routine follow up Encounter Details Date Type Department Care Team (Late st Contact Info) Description 09/01/2019 2:20 PM CROWN WHEEL ASSEMBLER Assisted [facility] [address] [place] [address] [address] [place] [address] Beni Cevallos MD Assisted (routine follow up ) Social History Tobacco [...] Sign Reading Time Taken Comments Blood Pressure 127/53 09/01/2019 2:56 PM CROWN WHEEL ASSEMBLER Pulse 70 09/01/2019 2:56 PM CROWN WHEEL ASSEMBLER Temperature 36.3 ??C (97.3 ??F) 09/01/2019 2:56 PM CS T Respiratory Rate 16 09/01/2019 2:56 PM CROWN WHEEL ASSEMBLER Oxygen Saturation - - Inhaled Oxygen Concentration - - Weight 69.1 kg (152 lb 6 oz) 09/01/2019 2:56 PM CROWN WHEEL ASSEMBLER Height 167.6 cm (5' 6 ) 09/01/2019 2:56 PM CROWN WHEEL ASSEMBLER Body Mass Index 24.59 09/01/2019 2:56 PM CROWN WHEEL ASSEMBLER documented in this encounter Progress Notes * Beni Cevallos MD - 09/01/2019 2:20 PM CST Reason for Visit: Assisted (routine follow up ) History of Present Illness: Emelina is being seen for routine follow up of multiple medical issues at [facility].?? Dementia: stable complete care, advanced dementia. requires feeding ?? HTN controlled DMII A1c 7.2 in Jun. Just on low dose glimepiride now??and ok given her comorbidities MS. non weight bearing uses gabriel lift Rash: comes and goes but overall better on low dose prednisone ROS: Review of Systems Constitutional: Negative for [...] Disp: , Rfl: ??? vitamin D2, ergocalciferol, [address]68 UNITS capsule, Take 2 capsules by mouth once a week. , Disp: , Rfl: Allergies Allergen Reactions ??? Metronidazole Unknown Past Medical History: Diagnosis Date ??? Cholecystitis, unspecified 02/09/2019 ??? Chronic indwelling Zhang catheter History reviewed. No pertinent surgical history. Social History Socioeconomic History ??? Marital status: [...] file Gets together: Not on file Attends temple service: Not on file Active member of [...] on file Social History Narrative LIVES AT [facility] Family History Family history unknown: Yes No family status information on file. Filed Vitals: 09/01/19 1456 BP: 127/53 Pulse: 70 Resp: 16 Temp: 97.3 ??F (36.3 ??C) Weight: 69.1 kg (152 lb 6 oz) Height: 5' 6 (1.676 m) Physical [...] memory. Diagnoses/Impression: Emelina was seen today for senior living. Diagnoses and all orders for this visit: Generalized multiple sclerosis (CMS/HCC) Essential hypertension Late onset Alzheimer's disease without behavioral disturbance (CMS/HCC) Type 2 diabetes mellitus with diabetic polyneuropathy, without long-term current use of insulin (CMS/HCC) Stable on current regimen Recommendations and Plan: Con't current plan of care Labs and meds reviewed RTC monthly or sooner if needed BENI CEVALLOS MD N WHEEL ASSEMBLER documented in this encounter Plan of Treatment Not on file documented as of this encounter Visit Diagnoses Diagnosis Generalized multiple sclerosis (CMS/HCC HHS/HCC)- Primary Multiple sclerosis Essential hypertension Unspecified essential hypertension Late onset Alzheimer's disease without behavioral disturbance (CMS/HCC HHS/HCC) Type 2 diabetes mellitus with diabetic polyneuropathy, without long-term current use of insulin (CMS/HCC HHS/HCC) documented in this encounter Care Teams Vice President Financial Relationship Specialty Start Date End Date Bnei Cevallos MD PCP - General INTERNAL MEDICINE 08/31/18 02/23/20 documented as of this encounter
--- OUTSIDE RECORDS SUMMARY | 2024-09-21 01:17 | XMS_ITS | Encounter Summary ---
Author Organization [facility] Address [facility] [place] [address] [place] [address] Care Team Providers Care Management Supervisor Name Role Phone Beni Cevallos MD Primary Care Provider Unavailab Yolanda Fu PELLETIZER TENDER Unavailable Jayesh Lara DO Primary Care Provider [phone] Reason for Visit * Reason Comments [facility] routine Encounter Details Date Type Department Care Team (Late st Contact Info) Description 02/01/2020 4:40 PM CDT Telemedicine [facility] [address] [place] [address] [place] [address] Beni Cevallos MD [facility] (routine) Social History Tobacco Use Types [...] Sign Reading Time Taken Comments Blood Pressure 154/80 02/01/2020 10:49 AM CDT Pulse 86 02/01/2020 10:49 AM CDT Temperature 36.8 ??C (98.3 ??F) 02/01/2020 10:49 AM C DT Respiratory Rate 16 02/01/2020 10:49 AM CDT Oxygen Saturation - - Inhaled Oxygen Concentration - - Weight - - Height - - Body Mass Index - - documented in this encounter Progress Notes * Beni Cevallos MD - 02/01/2020 4:40 PM CDT Reason for Visit: [facility] (routine) History of Present Illness: Emelina is being seen for routine follow up of multiple medical issues at [facility] via video visit I introduced and identified myself, IA received verbal consent from POA from the patient to proceedwith this video visit and made the patient aware that the same confidentiality and information systems specialist practices apply. The patient joined the video visit from [facility]. I completed the virtual visit from Office. The following clinical staff helped with this visit Nurse: Tatyana. Total Time Spent in Minutes: 12 Dementia: stable complete care, advanced dementia. requires feeding ?? HTN controlled DMII A1c 7.2 in Jun. Just on low dose glimepiride now??and ok given her comorbidities MS. non weight bearing uses hoyerv lift No current skin issues. She denies any complaints ROS: Review of Systems Constitutional: Negative for [...] Disp: , Rfl: ??? vitamin D2, ergocalciferol, [address] UNITS capsule, Take 2 capsules by mouth [...] file Gets together: Not on file Attends uatsdin service: Not on file Active member of [...] on file Social History Narrative LIVES AT [facility] Family History Family history unknown: Yes No family status information on file. Filed Vitals: 02/01/20 1049 BP: (!) 154/80 Pulse: 86 Resp: 16 Temp: 98.3 ??F (36.8 ??C) Oriented to self, no distress doing well Breathing non labored and even No edema Diagnoses/Impression: Emelina was seen today for detention. Diagnoses and all orders for this visit: Late onset Alzheimer's disease without behavioral disturbance (CMS/HCC) Essential hypertension Generalized multiple sclerosis (CMS/HCC) Type 2 diabetes mellitus with diabetic [...] HHS/HCC)- Primary Essential hypertension Unspecified essential hypertension Generalized multiple sclerosis (CMS/HCC HHS/HCC) Multiple sclerosis Type 2 diabetes mellitus with diabetic polyneuropathy, without long-term current use of insulin (CMS/HCC HHS/HCC) documented in this encounter Care Teams Management Supervisor Relationship Specialty Start Date End Date Beni Cevallos MD PCP - General INTERNAL MEDICINE 08/31/18 02/23/20 Jayesh Lara DO PCP - General INTERNAL MEDICINE 02/24/20 12/12/20 Yolanda Dorsey NP Nurse Practitioner Nurse Practitioner Family 02/24/20 01/23/21 documented as of this encounter
--- OUTSIDE RECORDS SUMMARY | 2024-09-21 01:17 | XMS_ITS | Encounter Summary ---
Author Organization [facility] Address [address] [facility] [place] [address] [place] [address] Care Team Providers Care Garment Mender Name Role Phone Frieda Wasserman MD Primary Care Provider Unavailab le Encounter Details Date Type Department Care Team (Late st Contact Info) Description 01/16/2020 Orders Only [facility] [address] [facility] [address] [place] [id number] Ronel Hoang, RN Social History Tobacco Use [...] HHS/HCC) documented in this encounter Care Teams Garment Mender Relationship Specialty Start Date End Date Frieda Wasserman MD PCP - General INTERNAL MEDICINE 08/31/18 02/23/20 documented as of this encounter
--- OUTSIDE RECORDS SUMMARY | 2024-09-21 01:17 | XMS_ITS | Encounter Summary ---
Author Organization [facility] Address [address] [facility] [place] [address] [place] [address] Care Team Providers Care Sprinkler Truck Driver Name Role Phone Frieda Wasserman MD Primary Care Provider Unavailab le Encounter Details Date Type Department Care Team (Late st Contact Info) Description 07/06/2019 Orders Only [facility] [address] [place], [place] [id number] Yolanda Dorsey, SHANKAR [address] [address] Social History Tobacco Use Types Packs/Day Years Used Date Smoking Tobacco: Unknown Comments Unknown Sex and Gender Information Value Date Recorded Sex Assigned at Not on file Legal Sex Female 10:25 PM CDT Gender Identity Not on file Sexual Orientation Not on file documented as of this encounter Plan of Treatment Not on file documented as of this encounter Results * DIRECT BILIRUBIN (07/06/2019 8:50 AM CDT) BILIRUBIN DIRECT S/P/B 0.1 0.0 - 0.20 MG/DL 07/06/2019 10:42 AM CDT [facility] 07/06/2019 8:50 AM CDT Yolanda Shieldscaroline [facility] Edited Result - Final Performing Organization Address [facility]/ZIP Co de Phone Number [facility] [address] [place] [address], [place] [phone] * (ABNORMAL) HEMOGLOBIN, GLYCOSYLATED (07/06/2019 8:50 AM CDT) HGB A1C 7.2(H) <5.7 % 07/06/2019 1:12 PM CDT [facility] Comment: INCREASED RISK OF DIABETES <5.7% ?NON-DIABETES 5.7-6.4% INCREASED RISK FOR FUTURE DIABETES > OR = 6.5 CONSISTENT WITH DIABETES STANDARDS OF MEDICAL CARE IN DIABETES-2010 DIABETES CARE, 33(SUPP 1): S1-S61,2010 07/06/2019 8:50 AM CDT us Yolanda Dorsey NP LABORATORY Edited Result - Final Performing Organization Address [facility]/ZIP Co de Phone Number [facility] [address] [place] [address], [place] [phone] * (ABNORMAL) COMPREHENSIVE METABOLIC PANEL (07/06/2019 8:50 AM CDT) GLUCOSE 218(H) 70 - 99 MG/DL 07/06/2019 10:42 AM CDT [facility] BUN 12 7 - 18 MG/DL 07/06/2019 10:42 AM CDT [facility] CREATININE S/P/B 0.91 0.55 - 1.02 MG/DL 07/06/2019 10:42 AM CDT [facility] SODIUM S/P/B 142 136 - 145 MMOL/L 07/06/2019 10:42 AM CDT [facility] POTASSIUM S/P/B 4.3 3.5 - 5.1 MMOL/L 07/06/2019 10:42 AM [facility] CHLORIDE S/P/B 103 100 - 108 MMOL/L 07/06/2019 10:42 AM [facility] CO2 29.2 21 - 32 MMOL/L 07/06/2019 10:42 AM [facility] CALCIUM S/P/B 9.4 8.5 - 10.1 MG/DL 07/06/2019 10:42 AM [facility] BILIRUBIN TOTAL S/P/B 0.5 0.2 - 1.2 MG/DL 07/06/2019 10:42 AM [facility] TOTAL PROTEIN S/P/B 7.0 6.4 - 8.2 G/DL 07/06/2019 10:42 AM [facility] ALBUMIN S/P/B 3.6 3.4 - 5.0 G/DL 07/06/2019 10:42 AM [facility] AST 66(H) 15 - 37 U/L 07/06/2019 10:42 AM [facility] ALT 83(H) 14 - 55 U/L 07/06/2019 10:42 AM [facility] ALKALINE PHOSPHATASE S/P/B 119 50 - 136 U/L 07/06/2019 10:42 AM [facility] ANION GAP 9.8 5 - 15 MMOL/L 07/06/2019 10:42 AM [facility] BUN CREATININE RATIO 13.2 6 - 26 07/06/2019 10:42 AM [facility] A/G RATIO 1.1 1.0 - 2.0 RATIO 07/06/2019 10:42 AM [facility] EGFR NON-AFR. AMER. 61(L) >90 ML/MIN/1.7 3 M2 07/06/2019 10:42 AM CDT [facility] EGFR AFR. AMER. 71(L) >90 ML/MIN/1.7 3 M2 07/06/2019 10:42 AM CDT [facility] Comment: NOTE: eGFR is not calculated for patients <18 years of age. This is an estimated GFR (CKD EPI) and should not be used for calculating drug doses. 07/06/2019 8:50 AM CDT us Yolanda Dorsey NP LABORATORY Edited Result - Final [facility] [address] [place] [address], [place] [phone] documented in this encounter Visit Diagnoses Diagnosis Hypouricemia- Primary Other abnormal blood chemistry Abnormal liver function Unspecified disorder of liver documented in this encounter Care Teams Sprinkler Truck Driver Relationship Specialty Start Date End Date Frieda Wasserman MD PCP - General INTERNAL MEDICINE 08/31/18 02/23/20 documented as of this encounter
--- OUTSIDE RECORDS SUMMARY | 2024-09-21 01:17 | XMS_ITS | Encounter Summary ---
Author Organization [facility] - [facility] Address [address] [place] [address] [place] [address] Care Team Providers Care Lease Out Man Name Role Phone Frieda Wasserman MD Primary Care Provider Unavailab le Encounter Details Date Type Department Care Team (Late st Contact Info) Description 10/17/[address] [facility] [address] [facility] [address] [place] [phone] Ronel Hoang, RN Social History Tobacco Use [...] HHS/HCC) documented in this encounter Care Teams Lease Out Man Relationship Specialty Start Date End Date Frieda Wasserman MD PCP - General INTERNAL MEDICINE 08/31/18 02/23/20 documented as of this encounter
--- OUTSIDE RECORDS SUMMARY | 2024-09-21 01:17 | XMS_ITS | Encounter Summary ---
Author Organization [facility] - [facility] Address [address] [facility] [place] [address] [place] [address] Care Team Providers Care Band Sewer Name Role Phone Frieda Wasserman MD Primary Care Provider Unavailab le Encounter Details Date Type Department Care Team (Late st Contact Info) Description 06/24/2019 Chart Prep [facility] [address] [facility] [address] [place] [address] Yolanda Dorsey, WAGON DRILLER [address] [address] Social History Tobacco Use Types Packs/Day Years [...] on filedocumented in this encounter Care Teams Band Sewer Relationship Specialty Start Date End Date Frieda Wasserman MD PCP - General INTERNAL MEDICINE 08/31/18 02/23/20 documented as of this encounter
--- OUTSIDE RECORDS SUMMARY | 2024-09-21 01:17 | XMS_ITS | Encounter Summary ---
Author Organization [facility] - [facility] Address [address] [place] [address] [place] [address] Care Team Providers Care Direct Chill Caster Name Role Phone Frieda Wasserman MD Primary Care Provider Unavailab le Encounter Details Date Type Department Care Team (Latest Contact Info) Description 11/28/2019 Travel Social History Tobacco Use Types Packs/Day [...] on filedocumented in this encounter Care Teams Direct Chill Caster Relationship Specialty Start Date End Date Frieda Wasserman MD PCP - General INTERNAL MEDICINE 08/31/18 02/23/20 documented as of this encounter
--- OUTSIDE RECORDS SUMMARY | 2024-09-21 01:17 | XMS_ITS | Encounter Summary ---
Author Organization [facility] - [facility] Address [address] [facility] [place] [address] [place] [address] Care Team Providers Care Supervisor Refining Name Role Phone Frieda Wasserman MD Primary Care Provider Unavailab le Encounter Details Date Type Department Care Team (Late st Contact Info) Description 09/13/2019 Orders Only [facility] [address] [facility] [address] [place] [phone] Ronel Hoang, RN Social History Tobacco Use [...] HHS/HCC) documented in this encounter Care Teams Supervisor Refining Relationship Specialty Start Date End Date Frieda Wasserman MD PCP - General INTERNAL MEDICINE 08/31/18 02/23/20 documented as of this encounter
--- OUTSIDE RECORDS SUMMARY | 2024-09-21 01:17 | XMS_ITS | Encounter Summary ---
Author Organization [facility] Address [address] [facility] [place] [address] [place] [address] Care Team Providers Care Electrical Maintenance Worker Name Role Phone Frieda Wasserman MD Primary Care Provider Unavailab le Encounter Details Date Type Department Care Team (Latest Contact Info) Description 06/23/2019 Scan HEALTH INFO SRVCS Scanned, Documents Social [...] on filedocumented in this encounter Care Teams Electrical Maintenance Worker Relationship Specialty Start Date End Date Frieda Wasserman MD PCP - General INTERNAL MEDICINE 08/31/18 02/23/20 documented as of this encounter
--- OUTSIDE RECORDS SUMMARY | 2024-09-21 01:17 | XMS_ITS | Encounter Summary ---
Author Organization [facility] Address [facility] [facility] [place] [address] [place] [address] Care Team Providers Care Media Services Coordinator Name Role Phone Frieda Wasserman MD Primary Care Provider Unavailab le Reason for Visit * Reason Comments Prison routine Encounter Details Date Type Department Care Team (Late st Contact Info) Description 11/28/2019 2:20 PM TOBACCO PRIMER MACHINE OPERATOR Prison [facility] Nursing [facility] [address] [place] [address] [address] [place] [address] Yolanda Dorsey NP [address] [address] Prison (routine) Social History Tobacco Use Types Packs/Day Years Used Date Smoking Tobacco: Unknown Comments Unknown Sex and Gender Information Value Date Recorded Sex Assigned at Not on file Legal Sex Female 10:25 PM CDT Gender Identity Not on file Sexual Orientation Not on file documented as of this encounter Last Filed Vital Signs Vital Sign Reading Time Taken Comments Blood Pressure 146/72 11/28/2019 2:43 PM TOBACCO PRIMER MACHINE OPERATOR Pulse 74 11/28/2019 2:43 PM TOBACCO PRIMER MACHINE OPERATOR Temperature 36.4 ??C (97.6 ??F) 11/28/2019 2:43 PM CS T Respiratory Rate 18 11/28/2019 2:43 PM TOBACCO PRIMER MACHINE OPERATOR Oxygen Saturation 95% 11/28/2019 2:43 PM TOBACCO PRIMER MACHINE OPERATOR Inhaled Oxygen Concentration - - Weight - - Height - - Body Mass Index - - documented in this encounter Progress Notes * Yolanda Pryor NP - 11/28/2019 2:20 PM CST Images from the original note were not included. Reason for Visit: Prison (routine) History of Present Illness: Emelina Santoyo is an 79-year-old female who was seen today at [facility] for a routine long term visit. She has multiple chronic medical issues that were reviewed. Patient is alert and oriented to self at baseline. She is able to respond to questions and follow commands. She has no complaints of pain at this time. Staff and patient report no issues with diarrhea or skin breakdown. Staff has no acute concerns at this [...] ROS: Review of Systems Constitutional: Negative for weight loss. Respiratory: Negative for cough. Cardiovascular: Positive for leg swelling. Negative for chest pain. Gastrointestinal: Negative for abdominal pain, diarrhea and vomiting. Genitourinary: Negative for dysuria. Musculoskeletal: Negative for joint pain and neck pain. Skin: Negative for itching and rash. [...] Disp: , Rfl: ??? vitamin D2, ergocalciferol, 76243 UNITS capsule, Take 2 capsules by mouth once a week. , Disp: , Rfl: Allergies Allergen Reactions ??? Metronidazole Unknown Past Medical History: Diagnosis Date ??? Cholecystitis, unspecified 02/09/2019 ??? Chronic indwelling Zhang catheter Filed Vitals: 11/28/19 1443 BP: 146/72 Pulse: 74 Resp: 18 Temp: 97.6 ??F (36.4 ??C) SpO2: 95% Physical Exam Constitutional: She appears well-developed and well-nourished. Cardiovascular: Normal rate, regular rhythm and normal heart sounds. Pulmonary/Chest: Effort normal. No respiratory distress. She has decreased breath sounds. She has no wheezes. Abdominal: Soft. Bowel sounds are normal. She exhibits no distension. There is no tenderness. Genitourinary: There is no rash on the right labia. There is no rash on the left labia. No vaginal discharge found. Musculoskeletal: She exhibits edema (BL 2+). Neurological: She is alert. She is disoriented. Coordination and gait (wheelchair) abnormal. Skin: Skin is warm, dry and intact. No bruising and no rash noted. No erythema. Psychiatric: She has a normal [...] long-term current use of insulin (CMS/HCC) 3. Generalized multiple sclerosis (CMS/HCC) 4. Essential hypertension 5. Vitamin D deficiency 6. Hyperlipidemia, unspecified hyperlipidemia type Recommendations and Plan: Continue current treatment plan. Staff to continue to monitor and report any changes. Follow up in one month unless necessary sooner. Yolanda Pryor NP CCO PRIMER MACHINE OPERATOR documented in this encounter Plan of Treatment Not on file documented as of this encounter Visit Diagnoses Diagnosis Late onset Alzheimer's disease without behavioral disturbance ([facility])- Primary Type 2 diabetes mellitus with diabetic polyneuropathy, without long-term current use of insulin ([facility]) Generalized multiple sclerosis ([facility]) Multiple sclerosis Essential hypertension Unspecified essential hypertension Vitamin D deficiency Unspecified vitamin D deficiency Hyperlipidemia, unspecified hyperlipidemia type documented in this encounter Care Teams Media Services Coordinator Relationship Specialty Start Date End Date Frieda Wasserman MD PCP - General INTERNAL MEDICINE 08/31/18 02/23/20 documented as of this encounter
--- OUTSIDE RECORDS SUMMARY | 2024-09-21 01:17 | XMS_ITS | Encounter Summary ---
Author Organization [facility] Address [facility] access hospital[address] [facility] [place] [address] [place] [address] Care Team Providers Care Warehouse Foreman Name Role Phone Frieda Wasserman MD Primary Care Provider Unavailab le Encounter Details Date Type Department Care Team (Late st Contact Info) Description 07/14/2019 Orders Only [facility] [address] [facility] [address] [place] [address] Ronel Hoang, JAH Social History Tobacco Use Types Packs/Day Years Used Date Smoking Tobacco: Unknown Comments Unknown Sex and Gender Information Value Date Recorded Sex Assigned at Not on file Legal Sex Female 10:25 PM CDT Gender Identity Not on file Sexual Orientation Not on file documented as of this encounter Progress Notes * Yolanda Pryor NP - 07/14/2019 11:18 AM CDT Refilled Lyrica 150mg PO BID documented in this encounter Plan of Treatment Not on file documented as of this encounter Visit Diagnoses Diagnosis Type 2 diabetes mellitus with diabetic polyneuropathy, without long-term current use of insulin ([facility]) documented in this encounter Care Teams Warehouse Foreman Relationship Specialty Start Date End Date Frieda Wasserman MD PCP - General INTERNAL MEDICINE 08/31/18 02/23/20 documented as of this encounter
--- OUTSIDE RECORDS SUMMARY | 2024-09-21 01:17 | XMS_ITS | Encounter Summary ---
Author Organization [facility] Address [facility] [facility] [place] [address] [place] [address] Care Team Providers Care Reserve Officer Name Role Phone Frieda Wasserman MD Primary Care Provider Unavailab le Reason for Visit * Reason Onset Date Comments Orders 07/06/2019 CMP and A1C Encounter Details Date Type Department Care Team (Latest Contact Info) Description 07/06/2019 SENIOR WAREHOUSE CLERK ONLY [facility] [address] [facility] [address] [place] [address] Yolanda Dorsey, SHANKAR [address] [address] Orders (CMP and A1C) Social History Tobacco Use Types Packs/Day Years Used Date Smoking Tobacco: Unknown Comments Unknown Sex and Gender Information Value Date Recorded Sex Assigned at Not on file Legal Sex Female 10:25 PM CDT Gender Identity Not on file Sexual Orientation Not on file documented as of this encounter Progress Notes * Dorothy Kwong - 07/06/2019 3:01 PM CDT CMP: Glucose 218, AST 66, ALT 83, EST GFR Afric/amer 71 A1C 7.2 Order: Increase Glimepiride to 1 mg po daily. documented in this encounter Plan of Treatment Not on file documented as of this encounter Visit Diagnoses Not on filedocumented in this encounter Care Teams Reserve Officer Relationship Specialty Start Date End Date Frieda Wasserman MD PCP - General INTERNAL MEDICINE 08/31/18 02/23/20 documented as of this encounter
--- OUTSIDE RECORDS SUMMARY | 2024-09-21 01:17 | XMS_ITS | Encounter Summary ---
Author Organization [facility] Address [facility] [facility] [place] [address] [place] [address] Care Team Providers Care Lining Printer Name Role Phone Frieda Wasserman MD Primary Care Provider Unavailab le Reason for Visit * Reason Comments Custodial routine Encounter Details Date Type Department Care Team (Late st Contact Info) Description 08/01/2019 9:40 AM ROLLER VARNISHER Custodial [facility] Nursing [facility] [address] [place] [address] Yolanda Dorsey NP [address] [address] Custodial (routine) Social History Tobacco Use Types Packs/Day Years Used Date Smoking Tobacco: Unknown Comments Unknown Sex and Gender Information Value Date Recorded Sex Assigned at Not on file Legal Sex Female 10:25 PM CDT Gender Identity Not on file Sexual Orientation Not on file documented as of this encounter Last Filed Vital Signs Vital Sign Reading Time Taken Comments Blood Pressure 112/64 08/01/2019 1:17 PM ROLLER VARNISHER Pulse 73 08/01/2019 1:17 PM ROLLER VARNISHER Temperature 36.6 ??C (97.9 ??F) 08/01/2019 1:17 PM CS T Respiratory Rate 16 08/01/2019 1:17 PM ROLLER VARNISHER Oxygen Saturation - - Inhaled Oxygen Concentration - - Weight 70.9 kg (156 lb 6.4 oz) 08/01/2019 1:17 P M ROLLER VARNISHER Height - - Body Mass Index 25.24 07/01/2019 8:46 AM CDT documented in this encounter Progress Notes * Yolanda Pryor NP - 08/01/2019 9:40 AM CST Images from the original note were not included. Reason for Visit: Custodial (routine) History of Present Illness: Emelina Santoyo is an 79-year-old female who was seen today at [facility] for a routine retirement visit. She has multiple chronic medical issues that were reviewed. Patient is alert and oriented to self at baseline. She is able to respond to questions and follow commands. She has a history of frequent, loose stools. She has no complaints of pain at this time. Staff reports patient's skin has healed and she no longer has any areas of concern. Staff has no acute concerns and her diarrhea has subsided. Alzheimer's: No behaviors. Stable. On namenda and donepezil. Type 2 diabetes: Follow A1C. Last done 07/06/19. On glipizide and lyrica. MS: No complaints. Wheelchair bound. Daily prednisone. Hypertension: BP stable. On amlodipine, lisinopril and metoprolol. Vitamin D deficiency: Follow vitamin D level. On supplements. Hyperlipidemia: Follow lipid panel. Last done 06/01/2019. On atorvastatin. Functional diarrhea: Improvement with steroids per staff. On probiotic and PRN imodium. ROS: Review of Systems Constitutional: Negative for [...] Disp: , Rfl: ??? vitamin D2, ergocalciferol, [address] UNITS capsule, Take 2 capsules by mouth once a week. , Disp: , Rfl: Allergies Allergen Reactions ??? Metronidazole Unknown Past Medical History: Diagnosis Date ??? Cholecystitis, unspecified 02/09/2019 ??? Chronic indwelling Zhang catheter Filed Vitals: 08/01/19 1317 BP: 112/64 Pulse: 73 Resp: 16 Temp: 97.9 ??F (36.6 ??C) Weight: 70.9 kg (156 lb 6.4 oz) Physical Exam Constitutional: She appears well-developed and [...] No vaginal discharge found. Musculoskeletal: She exhibits no edema. Neurological: She is alert. She is disoriented. Coordination and gait (wheelchair) abnormal. Skin: Skin is warm, dry and intact. No bruising and no rash noted. No erythema. Psychiatric: Her speech is delayed. She is slowed and withdrawn. Cognition and memory are impaired.She expresses impulsivity and inappropriate judgment. She exhibits abnormal recent memory. She is inattentive. Diagnoses/Impression: 1. Late onset Alzheimer's disease without behavioral disturbance ([facility]) 2. Type 2 diabetes mellitus with diabetic polyneuropathy, without long-term current use of insulin ([facility]) 3. Generalized multiple sclerosis ([facility]) 4. Essential hypertension 5. Mild vitamin D deficiency 6. Hyperlipidemia, unspecified hyperlipidemia type 7. Functional diarrhea Recommendations and Plan: Continue current treatment plan. Staff to continue to monitor and report any changes. Follow up in one month unless necessary sooner. Yolanda Pryor NP ER VARNISHER documented in this encounter Plan of Treatment Not on file documented as of this encounter Visit Diagnoses Diagnosis Late onset Alzheimer's disease without behavioral disturbance ([facility])- Primary Type 2 diabetes mellitus with diabetic polyneuropathy, without long-term current use of insulin ([facility]) Generalized multiple sclerosis ([facility]) Multiple sclerosis Essential hypertension Unspecified essential hypertension Mild vitamin D deficiency Unspecified vitamin D deficiency Hyperlipidemia, unspecified hyperlipidemia type Functional diarrhea documented in this encounter Care Teams Lining Printer Relationship Specialty Start Date End Date Frieda Wasserman MD PCP - General INTERNAL MEDICINE 08/31/18 02/23/20 documented as of this encounter
--- OUTSIDE RECORDS SUMMARY | 2024-09-21 01:17 | XMS_ITS | Encounter Summary ---
Author Organization [facility] Address [facility] [facility] [place] [address] [place] [address] Care Team Providers Care Promotions Intern Name Role Phone Frieda Wasserman MD Primary Care Provider Unavailab le Reason for Visit * Reason Onset Date Comments Orders 06/23/2019 drainage Encounter Details Date Type Department Care Team (Late st Contact Info) Description 06/23/2019 TUBE BUILDER AIRPLANE ONLY [facility] [address] [place] [address] [address] [place] [address] Yolanda Dorsey NP [address] [address] Orders (drainage) Social History Tobacco Use Types Packs/Day Years Used Date Smoking Tobacco: Unknown Comments Unknown Sex and Gender Information Value Date Recorded Sex Assigned at Not on file Legal Sex Female 10:25 PM CDT Gender Identity Not on file Sexual Orientation Not on file documented as of this encounter Progress Notes * Dorothy Kwong - 06/23/2019 12:12 PM CDT Facility faxed: May resident be added to rounds list on Thursday for vaginal exam. Our wound nurse assessed residents - has cottage cheese like drainage from urethra area. Wound nurse would like MUTTON PUNCHER to look at. Order: Diflucan 150 mg po x 1 dose. Will see if improved on Thursday. Pt has been added to Yolanda's scheduled for rmonday documented in this encounter Plan of Treatment Not on file documented as of this encounter Visit Diagnoses Not on filedocumented in this encounter Care Teams Promotions Intern Relationship Specialty Start Date End Date Frieda Wasserman MD PCP - General INTERNAL MEDICINE 08/31/18 02/23/20 documented as of this encounter
--- OUTSIDE RECORDS SUMMARY | 2024-09-21 01:17 | XMS_ITS | Encounter Summary ---
Author Organization [facility] Address [address] [facility] [place] [address] [place] [address] Care Team Providers Care Php Programmer Name Role Phone Frieda Wasserman MD Primary Care Provider Unavailab le Encounter Details Date Type Department Care Team (Late st Contact Info) Description 11/25/2019 Chart Prep [facility] [address] [facility] [address] [place] [address] Yolanda Dorsey, PUBLIC RELATIONS PLAYER [address] [address] Social History Tobacco Use Types Packs/Day Years [...] on filedocumented in this encounter Care Teams Php Programmer Relationship Specialty Start Date End Date Frieda Wasserman MD PCP - General INTERNAL MEDICINE 08/31/18 02/23/20 documented as of this encounter
--- OUTSIDE RECORDS SUMMARY | 2024-09-21 01:17 | XMS_ITS | Encounter Summary ---
Author Organization [facility] Address [facility] [facility] [place] [address] [place] [address] Care Team Providers Care Mapping Editor Name Role Phone Frieda Wasserman MD Primary Care Provider Unavailab le Reason for Visit * Reason Comments Long Term routine Encounter Details Date Type Department Care Team (Late st Contact Info) Description 10/03/2019 10:00 AM PASSENGER AGENT Long Term [facility] Nursing [facility] [address] [place] [address] [address] [place] [address] Yolanda Dorsey NP [address] [address] Long Term (routine) Social History Tobacco Use Types Packs/Day Years Used Date Smoking Tobacco: Unknown Comments Unknown Sex and Gender Information Value Date Recorded Sex Assigned at Not on file Legal Sex Female 10:25 PM CDT Gender Identity Not on file Sexual Orientation Not on file documented as of this encounter Last Filed Vital Signs Vital Sign Reading Time Taken Comments Blood Pressure 118/58 10/03/2019 3:30 PM PASSENGER AGENT Pulse 66 10/03/2019 3:30 PM PASSENGER AGENT Temperature 36.6 ??C (97.8 ??F) 10/03/2019 3:30 PM CS T Respiratory Rate 16 10/03/2019 3:30 PM PASSENGER AGENT Oxygen Saturation - - Inhaled Oxygen Concentration - - Weight - - Height - - Body Mass Index - - documented in this encounter Progress Notes * Yolanda Pryor NP - 10/03/2019 10:00 AM CST Images from the original note were not included. Reason for Visit: Long Term (routine) History of Present Illness: Emelina Santoyo is an 79-year-old female who was seen today at [facility] for a routine [place] [facility] [place]. She has multiple chronic medical issues that were reviewed. Patient is alert and oriented to self at baseline. She is able to respond to questions and follow commands. She has a history of frequent, loose stools which were causing skin breakdown. She was started on a steroid which has helped her skin. She still occasionally has loose, frequent stools but no further skin breakdown. She has no complaints of pain at this time. Staff reports patient's skin has healed and she no longer has any areas of concern. Staff has no acute concerns at this [...] Disp: , Rfl: ??? vitamin D2, ergocalciferol, 36116 UNITS capsule, Take 2 capsules by mouth once a week. , Disp: , Rfl: Allergies Allergen Reactions ??? Metronidazole Unknown Past Medical History: Diagnosis Date ??? Cholecystitis, unspecified 02/09/2019 ??? Chronic indwelling Zhang catheter Filed Vitals: 10/03/19 1530 BP: 118/58 Pulse: 66 Resp: 16 Temp: 97.8 ??F (36.6 ??C) Physical Exam Constitutional: She [...] polyneuropathy, without long-term current use of insulin ([facility]) 3. Generalized multiple sclerosis ([facility]) 4. Essential hypertension 5. Vitamin D deficiency 6. Hyperlipidemia, unspecified hyperlipidemia type 7. Functional diarrhea Recommendations and Plan: Continue current treatment plan. Staff to continue to monitor and report any changes. Follow up in one month unless necessary sooner. Yolanda Pryor NP ENGER AGENT documented in this encounter Plan of Treatment Not on file documented as of this encounter Visit Diagnoses Diagnosis Late onset Alzheimer's disease without behavioral disturbance ([facility])- Primary Type 2 diabetes mellitus with diabetic polyneuropathy, without long-term current use of insulin ([facility]) Generalized multiple sclerosis ([facility]) Multiple sclerosis Essential hypertension Unspecified essential hypertension Vitamin D deficiency Unspecified vitamin D deficiency Hyperlipidemia, unspecified hyperlipidemia type Functional diarrhea documented in this encounter Care Teams Mapping Editor Relationship Specialty Start Date End Date Frieda Wasserman MD PCP - General INTERNAL MEDICINE 08/31/18 02/23/20 documented as of this encounter
--- OUTSIDE RECORDS SUMMARY | 2024-09-21 01:17 | XMS_ITS | Encounter Summary ---
Author Organization [facility] Address [address] [facility] [place] [address] [place] [address] Care Team Providers Care Fowl Blood Tester Name Role Phone Frieda Wasserman MD Primary Care Provider Unavailab le Encounter Details Date Type Department Care Team (Late st Contact Info) Description 11/02/2019 Chart Prep [facility] [address] [facility] [address] [place] [address] Frieda Wasserman MD Social History Tobacco Use [...] on filedocumented in this encounter Care Teams Fowl Blood Tester Relationship Specialty Start Date End Date Frieda Wasserman MD PCP - General INTERNAL MEDICINE 08/31/18 02/23/20 documented as of this encounter
--- OUTSIDE RECORDS SUMMARY | 2024-09-21 01:18 | XMS_ITS | Encounter Summary ---
Author Organization [facility] Address [address] [facility] [place] [address] [place] [address] Care Team Providers Care Cdl A Driver Name Role Phone Frieda Wasserman MD Primary Care Provider Unavailab Keiry Salazar BRAND REPRESENTATIVE Unavailable [phone] Encounter Details Date Type Department Care Team (Latest Contact Info) Description 04/04/2019 Scan HEALTH INFO SRVCS Scanned, Documents Social [...] on filedocumented in this encounter Care Teams Cdl A Driver Relationship Specialty Start Date End Date Frieda Wasserman MD PCP - General INTERNAL MEDICINE 08/31/18 02/23/20 Keiry Rucker NP Consulting Physician Care Home Facility 10/04/18 04/13/19 documented as of this encounter
--- OUTSIDE RECORDS SUMMARY | 2024-09-21 01:18 | XMS_ITS | Encounter Summary ---
Author Organization [facility] Address [facility] [place] [address] [place] [address] Care Team Providers Care Customer Order Clerk Name Role Phone Frieda Wasserman MD Primary Care Provider Unavailab le Encounter Details Date Type Department Care Team (Late st Contact Info) Description 06/01/2019 Orders Only [facility] [address] [place], [place] [id number] Jayesh Lara, [address] [address] Social History Tobacco Use Types Packs/Day Years [...] encounter Results * (ABNORMAL) CBC W/DIFF AUTOMATED (06/01/2019 9:05 AM CDT) WBC 5.8 4.4 - 11.0 x10'3/uL 06/01/2019 10:35 AM CDT [facility] () [facility] RBC 5.25(H) 4.50 - 5.10 x10'6/uL 06/01/2019 10:35 AM CDT [facility] HGB 15.5(H) 12.3 - 15.3 G/DL 06/01/2019 10:35 AM [facility] HCT 47.2(H) 35.9 - 44.6 % 06/01/2019 10:35 AM T [facility] MCV 89.9 80.0 - 96.0 FL 06/01/2019 10:35 AM CDT [facility] MCH 29.5 25.3 - 30.9 PG 06/01/2019 10:35 AM T [facility] MCHC 32.8 31.0 - 34.1 G/DL 06/01/2019 10:35 AM [facility] RDW 13.9 12.4 - 15.1 % 06/01/2019 10:35 AM [facility] PLT 151 151 - 353 x10'3/uL 06/01/2019 10:35 AM T [facility] MPV 10.5 9.6 - 12.0 FL 06/01/2019 10:35 AM [facility] RBC MORPHOLOGY NORMAL 06/01/2019 10:35 AM T [facility] PLT MORPH. NORMAL 06/01/2019 10:35 AM T [facility] WBC MORPHOLOGY NORMAL 06/01/2019 10:35 AM [facility] LYMPHOCYTES % 23.8 15.8 - 45.0 % 06/01/2019 10:35 AM T [facility] NEUTROPHILS % 68.8 42.1 - 71.9 % 06/01/2019 10:35 AM [facility] MONOCYTES % 5.3(L) 5.7 - 12.5 % 06/01/2019 10:35 AM T [facility] EOSINOPHILS 1.7 0.0 - 5.6 % 06/01/2019 10:35 AM CDT [facility] BASOPHILS 0.2 0.0 - 1.3 % 06/01/2019 10:35 AM CDT [facility] ABS. NEUTROPHILS TOTAL 3.99 1.40 - 6.00 x10'3/uL 06/01/2019 10:35 AM CDT [facility] IMMATURE GRANS % 0.2 0.0 - 0.5 % 06/01/2019 10:35 AM CDT [facility] ABS. LYMPHOCYTES 1.38 0.80 - 4.70 x10'3/uL 06/01/2019 10:35 AM T [facility] 06/01/2019 9:05 AM CDT Jayesh Lara DO LABORATORY Final Result [facility] [address] [place] [address], * (ABNORMAL) LIPID PANEL (06/01/2019 9:05 AM CDT) CHOLESTEROL 105 <200.0 MG/DL 06/01/2019 11:38 AM T [facility] TRIGLYCERIDES 348(H) <150 MG/DL 06/01/2019 11:38 AM T [facility] HDL 38(L) >40.0 MG/DL 06/01/2019 11:38 AM T [facility] LDL (CALCULATED) 37 <100 MG/DL 06/01/2019 11:38 AM T [facility] NON HDL CHOLESTEROL 67 <130 MG/DL 06/01/2019 11:38 AM T [facility] CHOL/HDL RATIO 2.8 0.0 - 4.5 06/01/2019 11:38 AM CDT [facility] VLDL CALCULATION 70(H) 5 - 55 MG/DL 06/01/2019 11:38 AM CDT [facility] LIPID INTERPRETATION 06/01/2019 11:38 AM CDT [facility] Comment: NIH CONCENSUS REPORT RECOMMENDATIONS: ?ADULT ?CHILD ??LOW RISK: ?CHOLESTEROL ? <200 ? <170 ?TRIGLYCERIDE ?<150 ?--- ?HDL ? >=60 ?--- ?LDL ? <100 ? <110 ??BORDERLINE: ?CHOLESTEROL ? 200-239 ?? 170-199 ?TRIGLYCERIDE ?150-199 ? --- ?HDL ?40-59 ?--- ?LDL ? 100-159 ?? 110-129 ??HIGH RISK: ?CHOLESTEROL ? >=240 ?>=200 ?TRIGLYCERIDE ?>=200 ? --- ?HDL ?<40 ?--- ?LDL ? >=160 ?>=130 06/01/2019 9:05 AM CDT us Jayesh Lara DO LABORATORY Final Result [facility] [address] [place] [address], [place] [phone] * (ABNORMAL) COMPREHENSIVE METABOLIC PANEL (06/01/2019 9:05 AM CDT) GLUCOSE 238(H) 70 - 99 MG/DL 06/01/2019 11:38 AM T [facility] BUN 13 7 - 18 MG/DL 06/01/2019 11:38 AM T [facility] CREATININE S/P/B 1.07(H) 0.55 - 1.02 MG/DL 06/01/2019 11:38 AM T [facility] SODIUM S/P/B 140 136 - 145 MMOL/L 06/01/2019 11:38 AM T [facility] POTASSIUM S/P/B 4.1 3.5 - 5.1 MMOL/L 06/01/2019 11:38 AM [facility] CHLORIDE S/P/B 101 100 - 108 MMOL/L 06/01/2019 11:38 AM [facility] CO2 29.4 21 - 32 MMOL/L 06/01/2019 11:38 AM T [facility] CALCIUM S/P/B 9.4 8.5 - 10.1 MG/DL 06/01/2019 11:38 AM T [facility] BILIRUBIN TOTAL S/P/B 0.4 0.2 - 1.2 MG/DL 06/01/2019 11:38 AM T [facility] TOTAL PROTEIN S/P/B 7.0 6.4 - 8.2 G/DL 06/01/2019 11:38 AM [facility] ALBUMIN S/P/B 3.4 3.4 - 5.0 G/DL 06/01/2019 11:38 AM [facility] AST 70(H) 15 - 37 U/L 06/01/2019 11:38 AM [facility] ALT 103(H) 14 - 55 U/L 06/01/2019 11:38 AM [facility] ALKALINE PHOSPHATASE S/P/B 123 50 - 136 U/L 06/01/2019 11:38 AM [facility] ANION GAP 9.6 5 - 15 MMOL/L 06/01/2019 11:38 AM [facility] BUN CREATININE RATIO 12.1 6 - 26 06/01/2019 11:38 AM [facility] A/G RATIO 0.9(L) 1.0 - 2.0 RATIO 06/01/2019 11:38 AM [facility] EGFR NON-AFR. AMER. 50(L) >90 ML/MIN/1.7 3 M2 06/01/2019 11:38 AM [facility] EGFR AFR. AMER. 58(L) >90 ML/MIN/1.7 3 M2 06/01/2019 11:38 AM [facility] Comment: NOTE: eGFR is not calculated for patients <18 years of age. This is an estimated GFR (CKD EPI) and should not be used for calculating drug doses. 06/01/2019 9:05 AM CDT us Jayesh Lara DO LABORATORY Final Result [facility] [address] [place] [address], [place] [phone] documented in this encounter Visit Diagnoses Diagnosis Hyperlipemia- Primary Other and unspecified hyperlipidemia documented in this encounter Care Teams Customer Order Clerk Relationship Specialty Start Date End Date Frieda Wasserman MD PCP - General INTERNAL MEDICINE 08/31/18 02/23/20 documented as of this encounter
--- OUTSIDE RECORDS SUMMARY | 2024-09-21 01:18 | XMS_ITS | Encounter Summary ---
Author Organization [facility] Address [facility] [place] [address] [place] [address] Care Team Providers Care Director Of Construction Name Role Phone Frieda Wasserman MD Primary Care Provider Unavailab le Keiry Rucker HEAD LOFT WORKER Unavailable [phone] Encounter Details Date Type Department Care Team (Late st Contact Info) Description 03/15/2019 [facility] Only [facility] [address] [place] [address] Ronel Hoang, JAH Social History Tobacco Use [...] polyneuropathy, without long-term current use of insulin ([facility]HCC [facility]) documented in this encounter Care Teams Director Of Construction Relationship Specialty Start Date End Date Frieda Wasserman MD PCP - General INTERNAL MEDICINE 08/31/18 02/23/20 Keiry Rucker NP Consulting Physician [facility] 10/04/18 04/13/19 documented as of this encounter
--- OUTSIDE RECORDS SUMMARY | 2024-09-21 01:18 | XMS_ITS | Encounter Summary ---
Author Organization [facility] Address [address] [facility] [place] [address] [place] [address] Care Team Providers Care Eeg Tech Name Role Phone Frieda Wasserman MD Primary Care Provider Unavailab Keiry Salazar TRUCK LOADER AND UNLOADER Unavailable [phone] Reason for Visit * Reason Onset Date Comments Orders 03/07/2019 Encounter Details Date Type Department Care Team (Late st Contact Info) Description 03/07/2019 THREAD DRESSER ONLY [facility] [address] [place] [address] Jayesh Lara, DO [address] [address] Orders Social History Tobacco Use Types Packs/Day Years Used Date Smoking Tobacco: Unknown Comments Unknown Sex and Gender Information Value Date Recorded Sex Assigned at Not on file Legal Sex Female 10:25 PM CDT Gender Identity Not on file Sexual Orientation Not on file documented as of this encounter Progress Notes * Dorothy Kwong - 03/07/2019 12:06 PM CDT Facility faxed: Resident has had several loose stools change in color et slimy in appearance. We will obtain a stool specimen if that is ok? Yes, thank you documented in this encounter Plan of Treatment Not on file documented as of this encounter Visit Diagnoses Not on filedocumented in this encounter Care Teams Eeg Tech Relationship Specialty Start Date End Date Frieda Wasserman MD PCP - General INTERNAL MEDICINE 08/31/18 02/23/20 Keiry Rucker NP Consulting Physician [facility] 10/04/18 04/13/19 documented as of this encounter
--- OUTSIDE RECORDS SUMMARY | 2024-09-21 01:18 | XMS_ITS | Encounter Summary ---
Author Organization [facility] Address [address] [place] [address] [place] [address] Care Team Providers Care Repertoire Manager Name Role Phone Frieda Wasserman MD Primary Care Provider Unavailab le Encounter Details Date Type Department Care Team (Latest Contact Info) Description 06/01/2019 10:22 AM CDT - 06/01/2019 11:59 PM CDT Hospital Encounter [facility] [address] [place], [place] [id number] Jayesh Lara, [address] [address] Discharge Disposition: Home or Self Care (Routine [...] 80 mg by mouth daily. 04/01/2019 1 Benzalkonium Chloride (CAVILON SKIN CLEANSER EX) Apply topically 2 (two) times daily. 9 colesevelam 625 MG tablet Take 1,875 mg by mouth 2 (two) times daily with meals. 04/21/2018 9 cranberry 500 MG Cap Take 1 capsule by mouth 2 (two) times a day. 9 cyanocobalamin 1000 MCG/ML injection Inject 1 mL into the muscle monthly. Give on of month 2 dextromethorphan-g uaifenesin 10-100 MG/5ML liquid Take 5 mLs by mouth every 4 (four) hours as needed. 0 docusate sodium 100 MG capsule Take 100 mg by mouth 2 (two) times daily. 9 donepezil 10 MG Tab Take 10 mg by mouth daily. 2 glimepiride 1 MG tablet Take 2 mg by mouth daily. 04/19/2018 0 hydrocortisone 1 % cream Apply topically 2 (two) times daily. 9 HYDROCORTISONE 1 % ointmentIndication s:Rash APPLY TO [...] 2 (two) times a day. 60 capsule 05/09/2019 9 magnesium gluconate (MAGONATE) tablet Take 27 mg by mouth 2 (two) times daily. 2 Magnesium Hydroxide (MILK OF MAGNESIA OR) Take 30 mLs by mouth daily as needed. 0 memantine ER (NAMENDA XR) 28 MG 24 hr capsule Take 1 capsule by mouth daily. 06/21/2013 1 metoprolol tartrate 25 MG tablet Take 25 mg by mouth 2 (two) times daily. 2 miconazole (MICRO GUARD) 2 % powder Apply topically 2 (two) times daily as needed for Itching. 9 Multiple Vitamin (THERA-MILL) Tab Take 1 tablet [...] (two) times daily. 2 vitamin D2, ergocalciferol, [address] UNITS capsule Take 2 capsules by mouth once a week. Thursday12/29/2017 0 documented as of this encounter Plan of Treatment Not on file documented as of this encounter Procedures Procedure Name Priority Date/Time Associated Diagnosis Comments COMPREHENSIVE METABOLIC PANEL Routine 06/01/2019 9:05 AM CDT Hyperlipemia LIPID PANEL Routine 06/01/2019 9:05 AM CDT Hyperlipemia CBC W/DIFF AUTOMATED Routine 06/01/2019 9:05 AM CDT Hyperlipemia documented in this encounter Results * (ABNORMAL) COMPREHENSIVE METABOLIC PANEL (06/01/2019 9:05 AM CDT) GLUCOSE 238(H) 70 - 99 MG/DL 06/01/2019 11:38 AM [facility] BUN 13 7 - 18 MG/DL 06/01/2019 11:38 AM [facility] CREATININE S/P/B 1.07(H) 0.55 - 1.02 MG/DL 06/01/2019 11:38 AM [facility] SODIUM S/P/B 140 136 - 145 MMOL/L 06/01/2019 11:38 AM [facility] POTASSIUM S/P/B 4.1 3.5 - 5.1 MMOL/L 06/01/2019 11:38 AM [facility] CHLORIDE S/P/B 101 100 - 108 MMOL/L 06/01/2019 11:38 AM [facility] CO2 29.4 21 - 32 MMOL/L 06/01/2019 11:38 AM [facility] CALCIUM S/P/B 9.4 8.5 - 10.1 MG/DL 06/01/2019 11:38 AM [facility] BILIRUBIN TOTAL S/P/B 0.4 0.2 - 1.2 MG/DL 06/01/2019 11:38 AM [facility] TOTAL PROTEIN S/P/B 7.0 6.4 - 8.2 G/DL 06/01/2019 11:38 AM [facility] ALBUMIN S/P/B 3.4 3.4 - 5.0 G/DL 06/01/2019 11:38 AM [facility] AST 70(H) 15 - 37 U/L 06/01/2019 11:38 AM [facility] ALT 103(H) 14 - 55 U/L 06/01/2019 11:38 AM [facility] ALKALINE PHOSPHATASE S/P/B 123 50 - 136 U/L 06/01/2019 11:38 AM CDT [facility] ANION GAP 9.6 5 - 15 MMOL/L 06/01/2019 11:38 AM T [facility] BUN CREATININE RATIO 12.1 6 - 26 06/01/2019 11:38 AM [facility] A/G RATIO 0.9(L) 1.0 - 2.0 RATIO 06/01/2019 11:38 AM T [facility] EGFR NON-AFR. AMER. 50(L) >90 ML/MIN/1.7 3 M2 06/01/2019 11:38 AM [facility] EGFR AFR. AMER. 58(L) >90 ML/MIN/1.7 3 M2 06/01/2019 11:38 AM [facility] Comment: NOTE: eGFR is not calculated for patients <18 years of age. This is an estimated GFR (CKD EPI) and should not be used for calculating drug doses. 06/01/2019 9:05 AM CDT us Jayesh Lara DO LABORATORY Final Result [facility] [address] [place] [id number], * (ABNORMAL) LIPID PANEL (06/01/2019 9:05 AM CDT) CHOLESTEROL 105 <200.0 MG/DL 06/01/2019 11:38 AM T [facility] TRIGLYCERIDES 348(H) <150 MG/DL 06/01/2019 11:38 AM T [facility] HDL 38(L) >40.0 MG/DL 06/01/2019 11:38 AM T [facility] LDL (CALCULATED) 37 <100 MG/DL 06/01/2019 11:38 AM T [facility] NON HDL CHOLESTEROL 67 <130 MG/DL 06/01/2019 11:38 AM [facility] CHOL/HDL RATIO 2.8 0.0 - 4.5 06/01/2019 11:38 AM [facility] VLDL CALCULATION 70(H) 5 - 55 MG/DL 06/01/2019 11:38 AM [facility] LIPID INTERPRETATION 06/01/2019 11:38 AM [facility] Comment: NIH CONCENSUS REPORT [...] ? >=160 ?>=130 06/01/2019 9:05 AM CDT Jayesh Lara DO LABORATORY Final Result [facility] [address] [place] [address], * (ABNORMAL) CBC W/DIFF AUTOMATED (06/01/2019 9:05 AM CDT) WBC 5.8 4.4 - 11.0 x10'3/uL 06/01/2019 10:35 AM CDT [facility] RBC 5.25(H) 4.50 - 5.10 x10'6/uL 06/01/2019 10:35 AM CDT [facility] HGB 15.5(H) 12.3 - 15.3 G/DL 06/01/2019 10:35 AM CDT [facility] HCT 47.2(H) 35.9 - 44.6 % 06/01/2019 10:35 AM CDT [facility] MCV 89.9 80.0 - 96.0 FL 06/01/2019 10:35 AM CDT [facility] MCH 29.5 25.3 - 30.9 PG 06/01/2019 10:35 AM CDT [facility] MCHC 32.8 31.0 - 34.1 G/DL 06/01/2019 10:35 AM CDT [facility] RDW 13.9 12.4 - 15.1 % 06/01/2019 10:35 AM CDT [facility] PLT 151 151 - 353 x10'3/uL 06/01/2019 10:35 AM CDT [facility] MPV 10.5 9.6 - 12.0 FL 06/01/2019 10:35 AM CDT [facility] RBC MORPHOLOGY NORMAL 06/01/2019 10:35 AM T [facility] PLT MORPH. NORMAL 06/01/2019 10:35 AM CDT [facility] WBC MORPHOLOGY NORMAL 06/01/2019 10:35 AM CDT [facility] LYMPHOCYTES % 23.8 15.8 - 45.0 % 06/01/2019 10:35 AM CDT [facility] NEUTROPHILS % 68.8 42.1 - 71.9 % 06/01/2019 10:35 AM CDT [facility] MONOCYTES % 5.3(L) 5.7 - 12.5 % 06/01/2019 10:35 AM CDT [facility] EOSINOPHILS 1.7 0.0 - 5.6 % 06/01/2019 10:35 AM CDT [facility] BASOPHILS 0.2 0.0 - 1.3 % 06/01/2019 10:35 AM CDT [facility] ABS. NEUTROPHILS TOTAL 3.99 1.40 - 6.00 x10'3/uL 06/01/2019 10:35 AM CDT [facility] IMMATURE GRANS % 0.2 0.0 - 0.5 % 06/01/2019 10:35 AM CDT [facility] ABS. LYMPHOCYTES 1.38 0.80 - 4.70 x10'3/uL 06/01/2019 10:35 AM CDT [facility] 06/01/2019 9:05 AM CDT Jayesh Lara DO LABORATORY Final Result [facility] [address] [place] [address], documented in this encounter Visit Diagnoses Diagnosis Hyperlipemia Other and unspecified hyperlipidemia documented in this encounter Care Teams Repertoire Manager Relationship Specialty Start Date End Date Frieda Wasserman MD PCP - General INTERNAL MEDICINE 08/31/18 02/23/20 documented as of this encounter
--- OUTSIDE RECORDS SUMMARY | 2024-09-21 01:18 | XMS_ITS | Encounter Summary ---
Author Organization [facility] Address [address] [facility] [place] [address] [place] [address] Care Team Providers Care Network Coordinator Name Role Phone Frieda Wasserman MD Primary Care Provider Unavailab le Encounter Details Date Type Department Care Team (Late st Contact Info) Description 05/09/[address] [facility] [address] [facility] [address] [place] [address] Ronel Hoang, JAH Social History Tobacco Use Types Packs/Day Years Used Date Smoking Tobacco: Unknown Comments Unknown Sex and Gender Information Value Date Recorded Sex Assigned at Not on file Legal Sex Female 10:25 PM CDT Gender Identity Not on file Sexual Orientation Not on file documented as of this encounter Progress Notes * Yolanda Pryor NP - 05/09/2019 3:37 PM CDT Refilled documented in this encounter Plan of Treatment Not on file documented as of this encounter Visit Diagnoses Diagnosis Type 2 diabetes mellitus with diabetic polyneuropathy, without long-term current use of insulin (CMS/HCC HHS/HCC) documented in this encounter Care Teams Network Coordinator Relationship Specialty Start Date End Date Frieda Wasserman MD PCP - General INTERNAL MEDICINE 08/31/18 02/23/20 documented as of this encounter
--- OUTSIDE RECORDS SUMMARY | 2024-09-21 01:18 | XMS_ITS | Encounter Summary ---
Author Organization [facility] Address [address] [facility] [place] [address] [place] [address] Care Team Providers Care Research Hydrologist Name Role Phone Frieda Wasserman MD Primary Care Provider Unavailab le Encounter Details Date Type Department Care Team (Late st Contact Info) Description 06/03/2019 Chart Prep [facility] [address] [facility] [address] [place] [address] Yolanda Dorsey, WELL CLEANER [address] [address] Social History Tobacco Use Types Packs/Day Years [...] on filedocumented in this encounter Care Teams Research Hydrologist Relationship Specialty Start Date End Date Frieda Wasserman MD PCP - General INTERNAL MEDICINE 08/31/18 02/23/20 documented as of this encounter
--- OUTSIDE RECORDS SUMMARY | 2024-09-21 01:18 | XMS_ITS | Encounter Summary ---
Author Organization [facility] Address [address] [facility] [place] [address] [place] [address] Care Team Providers Care Front Office Coordinator Name Role Phone Frieda Wasserman MD Primary Care Provider Unavailab Keiry Salazar ROLLER SKATE ASSEMBLER Unavailable [phone] Encounter Details Date Type Department Care Team (Late st Contact Info) Description 03/10/2019 Orders Only [facility] [address] [place], [place] [id number] Jayesh Lara, [address] [address] Social History Tobacco Use Types Packs/Day Years Used Date Smoking Tobacco: Unknown Comments Unknown Sex and Gender Information Value Date Recorded Sex Assigned at Not on file Legal Sex Female 10:25 PM CDT Gender Identity Not on file Sexual Orientation Not on file documented as of this encounter Plan of Treatment Not on file documented as of this encounter Results * CLOSTRIDIUM DIFFICILE (03/10/2019 8:28 AM CDT) Pathologist [facility] MOLECULAR ASSAY NEGATIVE NEGATIVE 03/10/2019 10:31 AM CDT [facility] Comment: NOTE: C. difficile molecular tests are highly sensitive. ??Empiric therapy for patients with diarrhea and negative C. difficile test should be avoided. ?? Submission of more than one specimen within 7 days is not recommended. ?? Molecular tests for C. difficile are highly sensitive and a negative result does not need to be confirmed by a second specimen. STOOL SPECIMEN / Unknown 03/10/2019 8:28 AM CDT Jayesh Lara DO BODY FLUIDS AND STOOLS ORDERABLE S Edited Result - Final [facility] [address] [place] [address], documented in this encounter Visit Diagnoses Diagnosis Diarrhea of presumed infectious origin- Primary documented in this encounter Care Teams Front Office Coordinator Relationship Specialty Start Date End Date Frieda Wasserman MD PCP - General INTERNAL MEDICINE 08/31/18 02/23/20 Keiry Rucker NP Consulting Physician [facility] 10/04/18 04/13/19 documented as of this encounter
--- OUTSIDE RECORDS SUMMARY | 2024-09-21 01:18 | XMS_ITS | Encounter Summary ---
Author Organization [facility] Address [facility] [facility] [place] [address] [place] [address] Care Team Providers Care Lung Splitter Name Role Phone Frieda Wasserman MD Primary Care Provider Unavailab Keiry Salazar NEWS PRODUCER Unavailable [phone] Reason for Visit * Reason Onset Date Comments Orders 03/10/2019 Encounter Details Date Type Department Care Team (Late st Contact Info) Description 03/10/2019 RO[address] ROLLER OPERATOR HOT MIX ONLY [facility] [address] [place] [address] Jayesh Lara, DO [address] [id number] Orders Social History Tobacco Use Types Packs/Day Years Used Date Smoking Tobacco: Unknown Comments Unknown Sex and Gender Information Value Date Recorded Sex Assigned at Not on file Legal Sex Female 10:25 PM CDT Gender Identity Not on file Sexual Orientation Not on file documented as of this encounter Progress Notes * Dorothy Kwong - 03/10/2019 1:22 PM CDT C Diff negative. Patient is still having multiple loose stools daily. On Colace BID. Order: Discontinue Colace and update us on Thursday documented in this encounter Plan of Treatment Not on file documented as of this encounter Visit Diagnoses Not on filedocumented in this encounter Care Teams Lung Splitter Relationship Specialty Start Date End Date Frieda Wasserman MD PCP - General INTERNAL MEDICINE 08/31/18 02/23/20 Keiry Rucker NP Consulting Physician [facility] Facility 10/04/18 04/13/19 documented as of this encounter
--- OUTSIDE RECORDS SUMMARY | 2024-09-21 01:18 | XMS_ITS | Encounter Summary ---
Author Organization [facility] Address [address] [facility] [place] [address] [place] [address] Care Team Providers Care Button Station Worker Name Role Phone Frieda Wasserman MD Primary Care Provider Unavailab Keiry Salazar BUNDLE CUTTER Unavailable [phone] Encounter Details Date Type Department Care Team (Latest Contact Info) Description 03/24/2019 Scan HEALTH INFO SRVCS Scanned, Documents Social [...] on filedocumented in this encounter Care Teams Button Station Worker Relationship Specialty Start Date End Date Frieda Wasserman MD PCP - General INTERNAL MEDICINE 08/31/18 02/23/20 Keiry Rucker NP Consulting Physician Long [facility] Facility 10/04/18 04/13/19 documented as of this encounter
--- OUTSIDE RECORDS SUMMARY | 2024-09-21 01:18 | XMS_ITS | Encounter Summary ---
Author Organization [facility] Address [address] [place] [address] [place] [address] Care Team Providers Care Management Lead Name Role Phone Frieda Wasserman MD Primary Care Provider Unavailab le Reason for Visit * Reason Onset Date Comments Orders 05/26/2019 loose stools Encounter Details Date Type Department Care Team (Latest Contact Info) Description 05/26/2019 CARGO OPERATIONS AGENT ONLY [facility] [address] [facility] [address] [place] [address] Yolanda Dorsey, SHANKAR [address] [address] Orders (loose stools) Social History Tobacco Use Types Packs/Day Years Used Date Smoking Tobacco: Unknown Comments Unknown Sex and Gender Information Value Date Recorded Sex Assigned at Not on file Legal Sex Female 10:25 PM CDT Gender Identity Not on file Sexual Orientation Not on file documented as of this encounter Progress Notes * Dorothy Kwong - 05/26/2019 3:45 PM CDT Facility faxed: Resident continues to have loose, soft unformed stools. Bilateral gluteal folds, skin intact with light redness. Is there anything else for diarrhea we can try? Order: Hold colace and miralax until diarrhea resolved. documented in this encounter Plan of Treatment Not on file documented as of this encounter Visit Diagnoses Not on filedocumented in this encounter Care Teams Management Lead Relationship Specialty Start Date End Date Frieda Wasserman MD PCP - General INTERNAL MEDICINE 08/31/18 02/23/20 documented as of this encounter
--- OUTSIDE RECORDS SUMMARY | 2024-09-21 01:18 | XMS_ITS | Encounter Summary ---
Author Organization [facility] Address [address] [facility] [place] [address] [place] [address] Care Team Providers Care Hide Dyer Name Role Phone Frieda Wasserman MD Primary Care Provider Unavailab le Encounter Details Date Type Department Care Team (Latest Contact Info) Description 05/26/2019 Scan HEALTH INFO SRVCS Scanned, Documents Social [...] on filedocumented in this encounter Care Teams Hide Dyer Relationship Specialty Start Date End Date Frieda Wasserman MD PCP - General INTERNAL MEDICINE 08/31/18 02/23/20 documented as of this encounter
--- OUTSIDE RECORDS SUMMARY | 2024-09-21 01:18 | XMS_ITS | Encounter Summary ---
Author Organization [facility] Address [address] [place] [address] [place] [address] Care Team Providers Care Vice President Client Services Name Role Phone Frieda Wasserman MD Primary Care Provider Unavailab Keiry Salazar ASSOCIATE BIOLOGICAL SALES Unavailable [phone] Encounter Details Date Type Department Care Team (Latest Contact Info) Description 03/30/2019 Scan HEALTH INFO SRVCS Scanned, Documents Social [...] on filedocumented in this encounter Care Teams Vice President Client Services Relationship Specialty Start Date End Date Frieda Wasserman MD PCP - General INTERNAL MEDICINE 08/31/18 02/23/20 Keiyr Rucker NP Consulting Physician [facility] Facility 10/04/18 04/13/19 documented as of this encounter
--- OUTSIDE RECORDS SUMMARY | 2024-09-21 01:18 | XMS_ITS | Encounter Summary ---
Author Organization [facility] Address [facility] [facility] [place] [address] [place] [address] Care Team Providers Care Mixer Blender Name Role Phone Frieda Wasserman MD Primary Care Provider Unavailab le Encounter Details Date Type Department Care Team (Late st Contact Info) Description 06/10/2019 Orders Only [facility] [address] [facility] [address] [facility] [address] [place] [address] Ronel Hoang, JAH Social History Tobacco Use Types Packs/Day Years Used Date Smoking Tobacco: Unknown Comments Unknown Sex and Gender Information Value Date Recorded Sex Assigned at Not on file Legal Sex Female 10:25 PM CDT Gender Identity Not on file Sexual Orientation Not on file documented as of this encounter Progress Notes * Yolanda Pryor NP - 06/10/2019 3:41 PM CDT Refilled Lyrica 150mg PO BID documented in this encounter Plan of Treatment Not on file documented as of this encounter Visit Diagnoses Diagnosis Type 2 diabetes mellitus with diabetic polyneuropathy, without long-term current use of insulin ([facility]) documented in this encounter Care Teams Mixer Blender Relationship Specialty Start Date End Date Frieda Wasserman MD PCP - General INTERNAL MEDICINE 08/31/18 02/23/20 documented as of this encounter
--- OUTSIDE RECORDS SUMMARY | 2024-09-21 01:18 | XMS_ITS | Encounter Summary ---
Author Organization [facility] Address [facility] [place] [address] [place] [address] Care Team Providers Care Property Developer Name Role Phone Frieda Wasserman MD Primary Care Provider Unavailab Keiry Salazar ERGONOMICS CONSULTANT Unavailable [phone] Reason for Visit * Reason Onset Date Comments Orders 03/24/2019 Encounter Details Date Type Department Care Team (Late st Contact Info) Description 03/24/2019 SEWING LINE BALER ONLY [facility] [address] [place] [address] Jayesh Lara, DO [address] [address] Orders Social History Tobacco Use Types Packs/Day Years Used Date Smoking Tobacco: Unknown Comments Unknown Sex and Gender Information Value Date Recorded Sex Assigned at Not on file Legal Sex Female 10:25 PM CDT Gender Identity Not on file Sexual Orientation Not on file documented as of this encounter Progress Notes * Dorothy Kwong - 03/24/2019 3:37 PM CDT Facility faxed: On 03/21/29 res bilateral buttock and sacrum noted to be more excoriated again. NOR d/c cream to heal buttock and sacrum BID PRN. Start hydrocortisone oint 2.5% TID to buttock and sacrum x 14 days. May we please also have ano order for Zinc 220 mg 1 tablet po qd x 30 days and Vit C 500 mg 1 tablet qd x 30 days to promote healing. Yes, that's fine documented in this encounter Plan of Treatment Not on file documented as of this encounter Visit Diagnoses Not on filedocumented in this encounter Care Teams Property Developer Relationship Specialty Start Date End Date Frieda Wasserman MD PCP - General INTERNAL MEDICINE 08/31/18 02/23/20 Keiry Rucker NP Consulting Physician [facility] Facility 10/04/18 04/13/19 documented as of this encounter
--- OUTSIDE RECORDS SUMMARY | 2024-09-21 01:18 | XMS_ITS | Encounter Summary ---
Author Organization [facility] Address [facility] [facility] [place] [address] [place] [address] Care Team Providers Care Research Associate Professor Name Role Phone Frieda Wasserman MD Primary Care Provider Unavailab Keiry Salazar ARTISTIC DIRECTOR Unavailable [phone] Reason for Visit * Reason Onset Date Comments Orders 04/01/2019 Encounter Details Date Type Department Care Team (Late st Contact Info) Description 04/01/2019 CUSTODIAL MANAGER ONLY [facility] [address] [place] [address] Jayesh Lara, DO [address] [id number] Orders Social History Tobacco Use Types Packs/Day Years Used Date Smoking Tobacco: Unknown Comments Unknown Sex and Gender Information Value Date Recorded Sex Assigned at Not on file Legal Sex Female 10:25 PM CDT Gender Identity Not on file Sexual Orientation Not on file documented as of this encounter Progress Notes * Ronel Hoang RN - 04/01/2019 1:12 PM CDT March 30 2019 lipid panel show cholesterol 169 - triglycerides 833 - HDL cholesterol 35 - Non HDL cholesterol 134 Chol/HDL ratio 4.8. Pt is not currently taking any cholesterol medications. Orders given: Lipitor 40mg PO daily. Follow-up lipid panel x8 weeks. documented in this encounter Plan of Treatment Not on file documented as of this encounter Visit Diagnoses Not on filedocumented in this encounter Care Teams Research Associate Professor Relationship Specialty Start Date End Date Frieda Wasserman MD PCP - General INTERNAL MEDICINE 08/31/18 02/23/20 Keiry Rucker NP Consulting Physician [facility] Facility 10/04/18 04/13/19 documented as of this encounter
--- OUTSIDE RECORDS SUMMARY | 2024-09-21 01:18 | XMS_ITS | Encounter Summary ---
Author Organization [facility] Address [address] [facility] [place] [address] [place] [address] Care Team Providers Care Ethnographic Materials Conservator Name Role Phone Frieda Wasserman MD Primary Care Provider Unavailab Keiry Salazar HYDROGRAPHIC ENGINEER Unavailable [phone] Encounter Details Date Type Department Care Team (Latest Contact Info) Description 03/10/2019 Scan HEALTH INFO SRVCS Scanned, Documents Social [...] on filedocumented in this encounter Care Teams Ethnographic Materials Conservator Relationship Specialty Start Date End Date Frieda Wasserman MD PCP - General INTERNAL MEDICINE 08/31/18 02/23/20 Keiry Rucker NP Consulting Physician [facility] Facility 10/04/18 04/13/19 documented as of this encounter
--- OUTSIDE RECORDS SUMMARY | 2024-09-21 01:18 | XMS_ITS | Encounter Summary ---
Author Organization [facility] Address [address] [facility] [place] [address] [place] [address] Care Team Providers Care Audit Practice Intern Name Role Phone Frieda Wasserman MD Primary Care Provider Unavailab le Encounter Details Date Type Department Care Team (Latest Contact Info) Description 05/09/2019 Scan HEALTH INFO SRVCS Scanned, Documents Social [...] on filedocumented in this encounter Care Teams Audit Practice Intern Relationship Specialty Start Date End Date Frieda Wasserman MD PCP - General INTERNAL MEDICINE 08/31/18 02/23/20 documented as of this encounter
--- OUTSIDE RECORDS SUMMARY | 2024-09-21 01:18 | XMS_ITS | Encounter Summary ---
Author Organization [facility] Address [facility] [facility] [place] [address] [place] [address] Care Team Providers Care Car Dropper Name Role Phone Frieda Wasserman MD Primary Care Provider Unavailab Keiry Salazar REVIEW SCHEDULING COORDINATOR Unavailable [phone] Reason for Visit * Reason Onset Date Comments Orders 04/04/2019 Encounter Details Date Type Department Care Team (Late st Contact Info) Description 04/04/2019 AIR COMPRESSOR MECHANIC ONLY [facility] [address] [place] [address] Jayesh Lara, DO [address] [address] Orders Social History Tobacco Use Types Packs/Day Years Used Date Smoking Tobacco: Unknown Comments Unknown Sex and Gender Information Value Date Recorded Sex Assigned at Not on file Legal Sex Female 10:25 PM CDT Gender Identity Not on file Sexual Orientation Not on file documented as of this encounter Progress Notes * Dorothy Kwong - 04/04/2019 11:11 AM CDT Facility faxed: Res c/o H/A this am. Initiated Tylenol 650 mg po q 4-6 hours prn. Noted documented in this encounter Plan of Treatment Not on file documented as of this encounter Visit Diagnoses Not on filedocumented in this encounter Care Teams Car Dropper Relationship Specialty Start Date End Date Frieda Wasserman MD PCP - General INTERNAL MEDICINE 08/31/18 02/23/20 Keiry Rucker NP Consulting Physician Assisted Facility 10/04/18 04/13/19 documented as of this encounter
--- OUTSIDE RECORDS SUMMARY | 2024-09-21 01:18 | XMS_ITS | Encounter Summary ---
Author Organization [facility] Address [address] [facility] [place] [address] [place] [address] Care Team Providers Care Manager Statistical Name Role Phone Frieda Wasserman MD Primary Care Provider Unavailab le Encounter Details Date Type Department Care Team (Late st Contact Info) Description 05/25/2019 Orders Only [facility] [address] [place], [place] [id number] Jayesh Lara, [address] [address] Social History Tobacco Use Types Packs/Day Years Used Date Smoking Tobacco: Unknown Comments Unknown Sex and Gender Information Value Date Recorded Sex Assigned at Not on file Legal Sex Female 10:25 PM CDT Gender Identity Not on file Sexual Orientation Not on file documented as of this encounter Plan of Treatment Not on file documented as of this encounter Results * (ABNORMAL) LIPID PANEL (05/25/2019 7:45 AM CDT) CHOLESTEROL 124 <200.0 MG/DL 05/25/2019 10:03 AM CDT [facility] () [facility] TRIGLYCERIDES 520(H) <150 MG/DL 05/25/2019 10:03 AM CDT [facility] ([facility] Comment:REFLEXED DIRECT LDL DUE TO TRIG >400. HDL 40(L) >40.0 MG/DL 05/25/2019 10:03 AM [facility] LDL (CALCULATED) NOT CALCULATED <100 MG/DL 05/25/2019 10:03 AM [facility] Comment:TRIGLYCERIDE >400 IN VALIDATES FRACTIONATION. NON HDL CHOLESTEROL 84 <130 MG/DL 05/25/2019 10:03 AM [facility] CHOL/HDL RATIO 3.1 0.0 - 4.5 05/25/2019 10:03 AM [facility] VLDL CALCULATION NOT CALCULATED 5 - 55 MG/DL 05/25/2019 10:03 AM [facility] Comment:TRIGLYCERIDE >400 IN VALIDATES FRACTIONATION. LIPID INTERPRETATION 05/25/2019 10:03 AM [facility] Comment: NIH CONCENSUS REPORT [...] ?HDL ?<40 ?--- ?LDL ? >=160 ?>=130 05/25/2019 7:45 AM CDT us Jayesh Lara DO LABORATORY Edited Result - Final Performing Organization Address City/State/[facility] Co de Phone Number [facility] [address] [place] [address], documented in this encounter Visit Diagnoses Diagnosis Hyperlipemia- Primary Other and unspecified hyperlipidemia documented in this encounter Care Teams Manager Statistical Relationship Specialty Start Date End Date Frieda Wasserman MD PCP - General INTERNAL MEDICINE 08/31/18 02/23/20 documented as of this encounter
--- OUTSIDE RECORDS SUMMARY | 2024-09-21 01:18 | XMS_ITS | Encounter Summary ---
Author Organization [facility] Address [address] [facility] [place] [address] [place] [address] Care Team Providers Care Motion Designer Name Role Phone Frieda Wasserman MD Primary Care Provider Unavailab le Encounter Details Date Type Department Care Team (Latest Contact Info) Description 06/03/2019 Scan HEALTH INFO SRVCS Scanned, Documents Social [...] filedocumented in this encounter Care Teams Motion Designer Relationship Specialty Start Date End Date Frieda Wasserman MD PCP - General INTERNAL MEDICINE 08/31/18 02/23/20 documented as of this encounter
--- OUTSIDE RECORDS SUMMARY | 2024-09-21 01:18 | XMS_ITS | Encounter Summary ---
Author Organization [facility] Address [facility] [facility] [place] [place] [address] [place] [address] Care Team Providers Care Twister Hand Name Role Phone Frieda Wasserman MD Primary Care Provider Unavailab le Reason for Visit * Reason Onset Date Comments Orders 05/09/2019 med change Encounter Details Date Type Department Care Team (Latest Contact Info) Description 05/09/2019 ARBITRATOR ONLY [facility] [address] [place] [address] [address] [place] [id number] Frieda Wasserman MD Orders (med change) Social History Tobacco Use Types Packs/Day Years Used Date Smoking Tobacco: Unknown Comments Unknown Sex and Gender Information Value Date Recorded Sex Assigned at Not on file Legal Sex Female 10:25 PM CDT Gender Identity Not on file Sexual Orientation Not on file documented as of this encounter Progress Notes * Dorothy Kwong - 05/09/2019 8:51 AM CDT Facility faxed: Update: Res ordered prednisone 5 mg po daily on 04/26/19 for wounds on buttocks. Prednisone effective, wounds improving. documented in this encounter Plan of Treatment Not on file documented as of this encounter Visit Diagnoses Not on filedocumented in this encounter Care Teams Twister Hand Relationship Specialty Start Date End Date Frieda Wasserman MD PCP - General INTERNAL MEDICINE 08/31/18 02/23/20 documented as of this encounter
--- OUTSIDE RECORDS SUMMARY | 2024-09-21 01:18 | XMS_ITS | Encounter Summary ---
Author Organization [facility] Address [address] [facility] [place] [address] [place] [address] Care Team Providers Care Carbon Dioxide Operator Name Role Phone Frieda Wasserman MD Primary Care Provider Unavailab Keiry Salazar HYDROMETEOROLOGICAL TECHNICIAN Unavailable [phone] Encounter Details Date Type Department Care Team (Late st Contact Info) Description 03/30/2019 Orders Only [facility] [address] [place], [place] [id number] Jayesh Lara, [address] [address] Social History Tobacco Use Types Packs/Day Years [...] this encounter Results * (ABNORMAL) LIPID PANEL (03/30/2019 7:30 AM CDT) CHOLESTEROL 169 <200.0 MG/DL 03/30/2019 10:24 AM CDT [facility] (H) [facility] TRIGLYCERIDES 833(H) <150 MG/DL 03/30/2019 10:24 AM CDT [facility] Comment:REFLEXED DIRECT LDL DUE TO TRIG >400. HDL 35(L) >40.0 MG/DL 03/30/2019 10:24 AM [facility] LDL (CALCULATED) NOT CALCULATED <100 MG/DL 03/30/2019 10:24 AM [facility] Comment:TRIGLYCERIDE >400 IN VALIDATES FRACTIONATION. NON HDL CHOLESTEROL 134(H) <130 MG/DL 03/30/2019 10:24 AM [facility] CHOL/HDL RATIO 4.8(H) 0.0 - 4.5 03/30/2019 10:24 AM [facility] VLDL CALCULATION NOT CALCULATED 5 - 55 MG/DL 03/30/2019 10:24 AM [facility] Comment:TRIGLYCERIDE >400 IN VALIDATES FRACTIONATION. LIPID INTERPRETATION 03/30/2019 10:24 AM T [facility] Comment: NIH CONCENSUS REPORT [...] ?HDL ?<40 ?--- ?LDL ? >=160 ?>=130 03/30/2019 7:30 AM CDT us Jayesh Lara DO LABORATORY Edited Result - Final Performing Organization Address City/[facility] Co de Phone Number [facility] [address] [place] [address], documented in this encounter Visit Diagnoses Diagnosis Pure hypercholesterolemia- Primary documented in this encounter Care Teams Carbon Dioxide Operator Relationship Specialty Start Date End Date Frieda Wasserman MD PCP - General INTERNAL MEDICINE 08/31/18 02/23/20 Keiry Rucker NP Consulting Physician Residential Facility 10/04/18 04/13/19 documented as of this encounter
--- OUTSIDE RECORDS SUMMARY | 2024-09-21 01:18 | XMS_ITS | Encounter Summary ---
Author Organization [facility] Address [address] [facility] [place] [address] [place] [address] Care Team Providers Care Chip Mucker Name Role Phone Frieda Wasserman MD Primary Care Provider Unavailab Keiry Salazar HAZARDOUS MATERIALS WASTE TECHNICIAN Unavailable [phone] Encounter Details Date Type Department Care [...] on filedocumented in this encounter Care Teams Chip Mucker Relationship Specialty Start Date End Date Frieda Wasserman MD PCP - General INTERNAL MEDICINE 08/31/18 02/23/20 Keiry Rucker NP Consulting Physician [facility] Facility 10/04/18 04/13/19 documented as of this encounter
--- OUTSIDE RECORDS SUMMARY | 2024-09-21 01:18 | XMS_ITS | Encounter Summary ---
Author Organization [facility] Address [facility] [facility] [place] [address] [place] [address] Care Team Providers Care Materials Tech Name Role Phone Frieda Wasserman MD Primary Care Provider Unavailab le Keiry Rucker FIRST AID INSTRUCTOR Unavailable [phone] Encounter Details Date Type Department Care Team (Late st Contact Info) Description 04/11/2019 [facility] [address] [place] [address] Ronel Hoang, JAH Social History [...] polyneuropathy, without long-term current use of insulin ([facility]/H[facility]) documented in this encounter Care Teams Materials Tech Relationship Specialty Start Date End Date Frieda Wasserman MD PCP - General INTERNAL MEDICINE 08/31/18 02/23/20 Keiry Rucker NP Consulting Physician [facility] Facility 10/04/18 04/13/19 documented as of this encounter
--- OUTSIDE RECORDS SUMMARY | 2024-09-21 01:18 | XMS_ITS | Encounter Summary ---
Author Organization [facility] Address [address] [facility] [place] [address] [place] [address] Care Team Providers Care Quality Control Supervisor Name Role Phone Frieda Wasserman MD Primary Care Provider Unavailab Keiry Salazar OCEANOGRAPHY PROFESSOR Unavailable [phone] Encounter Details Date Type Department Care Team (Latest Contact Info) Description 03/07/2019 Scan HEALTH INFO SRVCS Scanned, Documents Social [...] on filedocumented in this encounter Care Teams Quality Control Supervisor Relationship Specialty Start Date End Date Frieda Wasserman MD PCP - General INTERNAL MEDICINE 08/31/18 02/23/20 Keiry Rucker NP Consulting Physician [facility] Facility 10/04/18 04/13/19 documented as of this encounter
--- OUTSIDE RECORDS SUMMARY | 2024-09-21 01:18 | XMS_ITS | Encounter Summary ---
Author Organization [facility] Address [address] [place] [address] [place] [address] Care Team Providers Care Harness Cleaner Name Role Phone Frieda Wasserman MD Primary Care Provider Unavailab le Encounter Details Date Type Department Care Team (Late st Contact Info) Description 06/03/2019 Orders Only [facility] [address] [place], [place] [id number] Frieda Wasserman MD Social History Tobacco Use [...] as of this encounter Results * (ABNORMAL) MAGNESIUM (06/03/2019 8:40 AM CDT) MAGNESIUM 1.4(L) 1.8 - 2.4 MG/DL 06/03/2019 11:23 AM CDT [facility] (H) [facility] 06/03/2019 8:40 AM CDT us Frieda Wasserman MD LABORATORY Edited Result - Final [facility] [address] [place] [address], documented in this encounter Visit Diagnoses Diagnosis Diarrhea of presumed infectious origin- Primary Senile dementia, 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, uncomplicated Scissor gait Abnormality of gait Avitaminosis D Unspecified vitamin D deficiency Cholecystitis, unspecified 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 incontinence of feces Unspecified urinary incontinence Diabetic neuropathy with neurologic complication ([facility]) Type II or unspecified type diabetes mellitus with neurological manifestations, not stated as uncontrolled Type II diabetes mellitus, uncontrolled Type II or unspecified type diabetes mellitus without mention of complication, uncontrolled 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, malignant Alzheimer's disease ([facility]) Alzheimer's disease Multiple sclerosis ([facility]) Multiple sclerosis Hyperlipemia Other and unspecified hyperlipidemia Diabetic neuropathy ([facility]) Type II or unspecified type diabetes mellitus with neurological manifestations, not stated as uncontrolled documented in this encounter Care Teams Harness Cleaner Relationship Specialty Start Date End Date Frieda Wasserman MD PCP - General INTERNAL MEDICINE 08/31/18 02/23/20 documented as of this encounter
--- OUTSIDE RECORDS SUMMARY | 2024-09-21 01:18 | XMS_ITS | Encounter Summary ---
Author Organization [facility] Address [address] [place] [address] [place] [address] Care Team Providers Care Cake Inspector Name Role Phone Frieda Wasserman MD Primary Care Provider Unavailab le Encounter Details Date Type Department Care Team (Latest Contact Info) Description 05/25/2019 9:27 AM CDT - 05/25/2019 11:59 PM CDT Hospital Encounter [facility] [address] [place], [place] [id number] Jayesh Lara, [address] [address] Discharge Disposition: Home or Self Care (Routine [...] (two) times daily. 2 vitamin D2, ergocalciferol, 21666 UNITS capsule Take 2 capsules by mouth once a week. Thursday12/29/2017 0 documented as of this encounter Plan of Treatment Not on file documented as of this encounter Procedures Procedure Name Priority Date/Time Associated Diagnosis Comments LIPID PANEL Routine 05/25/2019 7:45 AM CDT Hyperlipemia LIPOPROTEIN, LDL CHOL, DIRECT Routine 05/25/2019 7:45 AM CDT documented in this encounter Results * LIPOPROTEIN, LDL CHOL, DIRECT (05/25/2019 7:45 AM CDT) DIRECT LDL 45 <100 MG/DL 05/25/2019 10:32 AM CDT [facility] Comment: LDL OPTIMAL ?<100 LDL NEAR OPTIMAL ? 100-129 LDL BORDERLINE HIGH ??130-159 LDL HIGH ? 160-189 LDL VERY HIGH ?>=190 05/25/2019 7:45 AM CDT Jayesh Lara LABORATORY Final Result [facility] [address] [place] [address], * (ABNORMAL) LIPID PANEL (05/25/2019 7:45 AM CDT) CHOLESTEROL 124 <200.0 MG/DL 05/25/2019 10:03 AM T [facility] TRIGLYCERIDES 520(H) <150 MG/DL 05/25/2019 10:03 AM T [facility] Comment:REFLEXED DIRECT LDL DUE TO TRIG >400. HDL 40(L) >40.0 MG/DL 05/25/2019 10:03 AM T [facility] LDL (CALCULATED) NOT CALCULATED <100 MG/DL 05/25/2019 10:03 AM [facility] Comment:TRIGLYCERIDE >400 IN VALIDATES FRACTIONATION. NON HDL CHOLESTEROL 84 <130 MG/DL 05/25/2019 10:03 AM [facility] CHOL/HDL RATIO 3.1 0.0 - 4.5 05/25/2019 10:03 AM [facility] VLDL CALCULATION NOT CALCULATED 5 - 55 MG/DL 05/25/2019 10:03 AM [facility] Comment:TRIGLYCERIDE >400 IN VALIDATES FRACTIONATION. LIPID INTERPRETATION 05/25/2019 10:03 AM T [facility] Comment: NIH CONCENSUS REPORT [...] Edited Result - Final Performing Organization Address [facility]/State/ZIP Co de Phone Number [facility] () [facility] [address] [place] [address], [place] [phone] documented in this encounter Visit Diagnoses Diagnosis Hyperlipemia Other and unspecified hyperlipidemia documented in this encounter Care Teams Cake Inspector Relationship Specialty Start Date End Date Frieda Wasserman MD PCP - General INTERNAL MEDICINE 08/31/18 02/23/20 documented as of this encounter
--- OUTSIDE RECORDS SUMMARY | 2024-09-21 01:18 | XMS_ITS | Encounter Summary ---
Author Organization [facility] Address [address] [place] [address] [place] [address] Care Team Providers Care Diamond Sawer Name Role Phone Frieda Wasserman MD Primary Care Provider Unavailab le Encounter Details Date Type Department Care Team (Latest Contact Info) Description 06/03/2019 10:43 AM CDT - 06/03/2019 11:59 PM CDT Hospital Encounter [facility] [address] [place] [address] Frieda Wasserman MD Discharge Disposition: Home or Self Care (Routine [...] BUTTOCKS 2 TIMES A DAY UNTIL HEALED g 1 02/22/2019 0 lisinopril 10 MG [...] polyneuropathy, without long-term current use of insulin ([facility]/HCC HHS/HCC) Take 1 capsule (150 mg total) [...] Apply topically as needed for Itching. 0 miconazole (MICRO GUARD) 2 % powder Apply [...] (two) times daily. 2 vitamin D2, ergocalciferol, 58607 UNITS capsule Take 2 capsules by mouth once a week. Thursday12/29/2017 0 documented as of this encounter Plan of Treatment Not on file documented as of this encounter Procedures Procedure Name Priority Date/Time Associated Diagnosis Comments MAGNESIUM Routine 06/03/2019 8:40 AM CDT Diarrhea of presumed infectious origin documented in this encounter Results * (ABNORMAL) MAGNESIUM (06/03/2019 8:40 AM CDT) MAGNESIUM 1.4(L) 1.8 - 2.4 MG/DL 06/03/2019 11:23 AM CDT [facility] 06/03/2019 8:40 AM CDT us Frieda Wasserman MD LABORATORY Edited Result - Final [facility] [address] [place] [address], [place] [phone] documented in this encounter Visit Diagnoses Diagnosis Diarrhea of presumed infectious origin Senile dementia, uncomplicated (CMS/HCC HHS/HCC) Senile dementia, uncomplicated Scissor gait Abnormality of gait Avitaminosis D Unspecified vitamin D deficiency Cholecystitis, unspecified 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 incontinence of feces Unspecified urinary incontinence Diabetic neuropathy with neurologic complication ([facility]) Type II or unspecified type diabetes mellitus with neurological manifestations, not stated as uncontrolled Type II diabetes mellitus, uncontrolled Type II or unspecified type diabetes mellitus without mention of complication, uncontrolled 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, malignant Alzheimer's disease ([facility]) Alzheimer's disease Multiple sclerosis ([facility]) Multiple sclerosis Hyperlipemia Other and unspecified hyperlipidemia Diabetic neuropathy ([facility]) Type II or unspecified type diabetes mellitus with neurological manifestations, not stated as uncontrolled documented in this encounter Care Teams Diamond Sawer Relationship Specialty Start Date End Date Frieda Wasserman MD PCP - General INTERNAL MEDICINE 08/31/18 02/23/20 documented as of this encounter
--- OUTSIDE RECORDS SUMMARY | 2024-09-21 01:18 | XMS_ITS | Encounter Summary ---
Author Organization [facility] Address [address] [facility] [address] [place] [address] [place] [address] Care Team Providers Care Services Account Manager Name Role Phone Frieda Wasserman MD Primary Care Provider Unavailab Keiry Salazar CORRECTIVE THERAPY AIDE TEACHER Unavailable [phone] Encounter Details Date Type Department Care Team (Latest Contact Info) Description 03/10/2019 8:27 AM CDT - 03/10/2019 11:59 PM CDT Hospital Encounter [facility] [address] [place], [place] [id number] Jayesh Lara, [address] [address] Discharge Disposition: Home or Self Care (Routine Discharge) Social History Tobacco Use Types Packs/Day Years Used Date Smoking Tobacco: Unknown Comments Unknown Sex and Gender Information Value Date Recorded Sex Assigned at Not on file Legal Sex Female 10:25 PM CDT Gender Identity Not on file Sexual Orientation Not on file documented as of this encounter Medications at Time of Discharge amlodipine 10 MG tablet Take 1 tablet by mouth daily. 07/30/2015 2 aspirin 81 MG chewable tablet Chew 1 tablet by mouth daily. 12/29/2017 2 Benzalkonium Chloride (CAVILON SKIN CLEANSER EX) Apply topically 2 (two) times daily. 9 colesevelam 625 MG tablet Take 1,875 mg by mouth 2 (two) times daily with meals. 04/21/2018 9 cyanocobalamin 1000 MCG/ML injection Inject 1 [...] polyneuropathy, without long-term current use of insulin ([facility]/HCC HHS/HCC) Take 1 capsule (150 mg total) by mouth 2 (two) times a day. 60 capsule 02/08/2019 9 magnesium gluconate (MAGONATE) tablet Take 27 [...] 2 tablets by mouth daily. 12/29/2017 0 saccharomyces boulardii (FLORASTOR) 250 MG capsule Take 1 capsule by mouth 2 (two) times daily. 2 Tolnaftate (ANTIFUNGAL SPRAY POWDER EX) Apply topically as needed. 9 vitamin D2, ergocalciferol, 44524 UNITS capsule Take 2 capsules by mouth once a week. Thursday12/29/2017 0 documented as of this encounter Plan of Treatment Not on file documented as of this encounter Procedures Procedure Name Priority Date/Time Associated Diagnosis Comments CLOSTRIDIUM DIFFICILE Routine 03/10/2019 8:28 AM CDT Diarrhea of presumed infectious origin documented in this encounter Results * CLOSTRIDIUM DIFFICILE (03/10/2019 8:28 AM CDT) [facility] MOLECULAR ASSAY NEGATIVE NEGATIVE 03/10/2019 10:31 AM CDT [facility] Comment: NOTE: C. difficile molecular tests [...] SPECIMEN / Unknown 03/10/2019 8:28 AM CDT us Jd Flick DO BODY FLUIDS AND STOOLS ORDERABLE S Edited Result - Final [facility] [address] [place] [address], documented in this encounter Visit Diagnoses Diagnosis Diarrhea of presumed infectious origin documented in this encounter Care Teams Services Account Manager Relationship Specialty Start Date End Date Frieda Wasserman MD PCP - General INTERNAL MEDICINE 08/31/18 02/23/20 Keiry Rucker NP Consulting Physician [facility] 10/04/18 04/13/19 documented as of this encounter
--- OUTSIDE RECORDS SUMMARY | 2024-09-21 01:18 | XMS_ITS | Encounter Summary ---
Author Organization [facility] Address [address] [place] [address] [place] [address] Care Team Providers Care Hardware Supplies Sales Representative Name Role Phone Frieda Wasserman MD Primary Care Provider Unavailab le Reason for Visit * Reason Comments Lab (SCAN) Encounter Details Date Type Department Care Team (Latest Contact Info) Description 05/25/2019 Scan HEALTH INFO SRVCS Scanned, Documents Lab [...] on filedocumented in this encounter Care Teams Hardware Supplies Sales Representative Relationship Specialty Start Date End Date Frieda Wasserman MD PCP - General INTERNAL MEDICINE 08/31/18 02/23/20 documented as of this encounter
--- OUTSIDE RECORDS SUMMARY | 2024-09-21 01:18 | XMS_ITS | Encounter Summary ---
Author Organization [facility] Address [address] [place] [address] [place] [address] Care Team Providers Care Tax Assistant Name Role Phone Frieda Wasserman MD Primary Care Provider Unavailab le Reason for Visit * Reason Comments Skilled Nursing routine Encounter Details Date Type Department Care Team (Late st Contact Info) Description 06/06/2019 1:40 PM CDT Skilled Nursing [facility] [address] [place] [address] [address] [place] [address] Yolanda Dorsey NP [address] [address] Skilled Nursing (routine) Social History Tobacco Use Types Packs/Day Years Used Date Smoking Tobacco: Unknown Comments Unknown Sex and Gender Information Value Date Recorded Sex Assigned at Not on file Legal Sex Female 10:25 PM CDT Gender Identity Not on file Sexual Orientation Not on file documented as of this encounter Last Filed Vital Signs Vital Sign Reading Time Taken Comments Blood Pressure 126/70 06/06/2019 4:05 PM CDT Pulse 68 06/06/2019 4:05 PM CDT Temperature 36.5 ??C (97.7 ??F) 06/06/2019 4:05 PM CD T Respiratory Rate 18 06/06/2019 4:05 PM CDT Oxygen Saturation - - Inhaled Oxygen Concentration - - Weight 70.4 kg (155 lb 3.2 oz) 06/06/2019 4:05 P M CDT Height - - Body Mass Index 25.05 05/10/2019 1:10 PM CDT documented in this encounter Progress Notes * Yolanda Pryor NP - 06/06/2019 1:40 PM CDT Images from the original note were not included. Reason for Visit: Skilled Nursing (routine) History of Present Illness: Emelina Santoyo is an 79-year-old female who was seen today at [facility] for a routine senior living visit. She has multiple chronic medical issues that she is being seen for today. Patient and staff report trouble with diarrhea and loose stools. State she has had loose stools for months and has excoriation on her bottom due to diarrhea. Wound care is managing her excoriation. She does have some discomfortwhen sitting with her wound. She denies any troubles sleeping, no SOB or pain. She is on a modifieddiet and alert and oriented to self which is her baseline. Staff reports no changes. Staff also denies any acute concerns. Alzheimer's disease: Stable. No behaviors. Continue donepezil and namenda. Hypertension: BP stable. Continue amlodipine, lisinopril and metoprolol. Hyperlipidemia: Lipid panel from 05/2019 shows marked improvement. Continue Atorvastatin. Vitamin D deficiency: Continue supplements. Diarrhea: Loperamide PRN. Okay to place rectal tube if patient tolerates. CMP & LFTs in one month. Diabetes with polyneuropathy: Continue glimeperide and lyrica. A1C last done 04/2018 - 7%, will order A1C. ROS: Review of Systems Unable to perform [...] Disp: , Rfl: ??? vitamin D2, ergocalciferol, 28110 UNITS capsule, Take 2 capsules by mouth [...] file Gets together: Not on file Attends buddhism service: Not on file Active member of [...] on file Social History Narrative LIVES AT [facility] Family History Family history unknown: Yes No family status information on file. Filed Vitals: 06/06/19 1605 BP: 126/70 Pulse: 68 Resp: 18 Temp: 97.7 ??F (36.5 ??C) Weight: 70.4 kg (155 lb 3.2 oz) Physical Exam Constitutional: She appears well-developed and well-nourished. HENT: Head: Normocephalic and atraumatic. Cardiovascular: Normal rate, regular rhythm and normal heart sounds. Pulmonary/Chest: Effort normal and breath sounds normal. No respiratory distress. She has no wheezes. Abdominal: Soft. Bowel sounds are normal. She exhibits no distension. There is no tenderness. Musculoskeletal: Normal range of motion. She exhibits [...] Alzheimer's disease without behavioral disturbance (CMS/HCC) 2. Essential hypertension 3. Hyperlipidemia, unspecified hyperlipidemia type 4. Mild vitamin D deficiency 5. Functional diarrhea ALT & AST elevated, repeat CMP in one month. D/C hepatitis panel. 6. Type 2 diabetes with polyneuropathy Add A1C to lab draw in one month. Recommendations and Plan: Changes made as described above. Staff to continue to monitor and report any changes. Follow up in one month unless necessary sooner. Yolanda Pryor NP Patient was Not seen with the above healthcare provider. Assessment plan No acute issues reported , plan as above Dr. 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
--- OUTSIDE RECORDS SUMMARY | 2024-09-21 01:18 | XMS_ITS | Encounter Summary ---
Author Organization [facility] Address [address] [place] [address] [place] [address] Care Team Providers Care Forepart Rasper Name Role Phone Beni Cevallos MD Primary Care Provider Unavailab le Reason for Visit * Reason Comments [facility] Routine follow up vi sit Encounter Details Date Type Department Care Team (Late st Contact Info) Description 05/10/2019 8:00 AM CDT [facility] [address] [place] [address] Beni Cevallos MD [facility] (Routine follow up visit ) Social History Tobacco Use Types Packs/Day Years Used Date Smoking Tobacco: Unknown Comments Unknown Sex and Gender Information Value Date Recorded Sex Assigned at Not on file Legal Sex Female 10:25 PM CDT Gender Identity Not on file Sexual Orientation Not on file documented as of this encounter Last Filed Vital Signs Vital Sign Reading Time Taken Comments Blood Pressure 118/72 05/10/2019 1:10 PM CDT Pulse 76 05/10/2019 1:10 PM CDT Temperature 37 ??C (98.6 ??F) 05/10/2019 1:10 PM CDT Respiratory Rate 18 05/10/2019 1:10 PM CDT Oxygen Saturation - - Inhaled Oxygen Concentration - - Weight 71.9 kg (158 lb 8 oz) 05/10/2019 1:10 PM CDT Height 167.6 cm (5' 6 ) 05/10/2019 1:10 PM CDT Body Mass Index 25.58 05/10/2019 1:10 PM CDT documented in this encounter Progress Notes * Beni Cevallos MD - 05/10/2019 8:00 AM CDT Reason for Visit: Halfway (Routine follow up visit ) History of Present Illness: Emelina is being seen for routine follow up of multiple medical issues at [facility].?? Dementia: stable complete care, advanced dementia. requires feeding ?? HTN controlled DMII A1c 7 in Apr. Just on low dose glimepiride now??and ok given her comorbidities MS. non weight bearing uses gabriel lift Rash: significant on bottom. Only thing that seemed to help was topical steroids. Started on low dose oral prednisone last week and that seemed to help ROS: Review of Systems Constitutional: Negative for [...] nightly at bedtime., Disp: , Rfl: ??? Benzalkonium Chloride (CAVILON SKIN CLEANSER EX), Apply topically 2 (two) times daily., Disp: ,Rfl: ??? cranberry 500 MG Cap, Take 1 capsule by mouth 2 (two) times a day., Disp: , Rfl: ??? cyanocobalamin 1000 MCG/ML [...] by mouth daily., Disp: , Rfl: ??? lisinopril 10 MG [...] (two) times daily., Disp: , Rfl: ??? colesevelam 625 MG tablet, Take 1,875 mg by mouth 2 (two) times daily with meals., Disp: , Rfl: ??? docusate sodium 100 MG capsule, Take 100 mg by mouth 2 (two) times daily., Disp: , Rfl: ??? hydrocortisone 1 % cream, Apply topically 2 (two) times daily., Disp: , Rfl: ??? HYDROCORTISONE 1 % ointment, APPLY TO AFFECTED AREAS ON BUTTOCKS 2 TIMES A DAY UNTIL HEALED, Disp: 28 g, Rfl: 1 ??? miconazole (MICRO GUARD) 2 % powder, Apply topically 2 (two) times daily as needed for Itching., Disp: , Rfl: ??? vitamin D2, ergocalciferol, 10952 UNITS capsule, Take 2 capsules by mouth [...] file Gets together: Not on file Attends hinduism service: Not on file Active member of [...] Social History Narrative LIVES AT [facility] Family History Family history unknown: Yes No family status information on file. Filed Vitals: 05/10/19 1310 BP: 118/72 Pulse: 76 Resp: 18 Temp: 98.6 ??F (37 ??C) Weight: 71.9 kg (158 lb 8 oz) Height: 5' 6 (1.676 m) Physical [...] memory. Diagnoses/Impression: Emelina was seen today for fpc. Diagnoses and all orders for this visit: Late onset Alzheimer's disease without behavioral disturbance (CMS/HCC) Type 2 diabetes mellitus with diabetic polyneuropathy, without long-term current use of insulin (CMS/HCC) Generalized multiple sclerosis (CMS/HCC) Pressure injury of coccygeal region, stage 2 (CMS/HCC) Con't prednisone for rash Recommendations and Plan: Con't current plan of [...] Generalized multiple sclerosis (CMS/HCC HHS/HCC) Multiple sclerosis Pressure injury of coccygeal region, stage 2 (CMS/HCC HHS/HCC) documented in this encounter Care Teams Forepart Rasper Relationship Specialty Start Date End Date Beni Cevallos MD PCP - General INTERNAL MEDICINE 08/31/18 02/23/20 documented as of this encounter
--- OUTSIDE RECORDS SUMMARY | 2024-09-21 01:18 | XMS_ITS | Encounter Summary ---
Author Organization [facility] Address [address] [place] [address] [place] [address] Care Team Providers Care Nurse Monitoring Name Role Phone Frieda Wasserman MD Primary Care Provider Unavailab Keiry Salazar SUPERVISOR WATERWORKS Unavailable [phone] Encounter Details Date Type Department Care Team (Latest Contact Info) Description 03/30/2019 9:29 AM CDT - 03/30/2019 11:59 PM CDT Hospital Encounter [facility] [address] [place], [place] [id number] Jayesh Lara, [address] [address] Discharge Disposition: Home or Self Care (Routine [...] UNTIL HEALED 28 g 1 02/22/2019 0 hydrocortisone 2.5 % cream Apply topically 3 (three) times daily. 03/24/2019 9 lisinopril 10 MG tabletIndications: Essential hypertension Take [...] 2 (two) times a day. 60 capsule 03/15/2019 9 magnesium gluconate (MAGONATE) tablet Take 27 mg by mouth 2 (two) times daily. 2 Magnesium Hydroxide (MILK OF MAGNESIA OR) Take 30 mLs by mouth daily as needed. 12/16/202 0 memantine ER (NAMENDA XR) 28 MG [...] mouth 2 (two) times daily. 2 vitamin C 500 MG tablet Take 500 mg by mouth daily. 03/24/2019 9 vitamin D2, ergocalciferol, 61371 UNITS capsule Take 2 capsules by mouth once a week. Thursday12/29/2017 0 Zinc Sulfate (ZINC-220 OR) Take 1 tablet by mouth daily. 03/24/2019 9 documented as of this encounter Plan of Treatment Not on file documented as of this encounter Procedures Procedure Name Priority Date/Time Associated Diagnosis Comments LIPID PANEL Routine 03/30/2019 7:30 AM CDT Pure hypercholesterolemia LIPOPROTEIN, LDL CHOL, DIRECT Routine 03/30/2019 7:30 AM CDT documented in this encounter Results * LIPOPROTEIN, LDL CHOL, DIRECT (03/30/2019 7:30 AM CDT) DIRECT LDL 42 <100 MG/DL 03/30/2019 10:57 AM CDT [facility] Comment: LDL OPTIMAL ?<100 LDL NEAR OPTIMAL ? 100-129 LDL BORDERLINE HIGH ??130-159 LDL HIGH ? 160-189 LDL VERY HIGH ?>=190 03/30/2019 7:30 AM CDT Jayesh Guo Marco DO LABORATORY Final Result [facility] [address] [place] [address], * (ABNORMAL) LIPID PANEL (03/30/2019 7:30 AM CDT) CHOLESTEROL 169 <200.0 MG/DL 03/30/2019 10:24 AM T [facility] TRIGLYCERIDES 833(H) <150 MG/DL 03/30/2019 10:24 AM T [facility] Comment:REFLEXED DIRECT LDL DUE TO TRIG >400. HDL 35(L) >40.0 MG/DL 03/30/2019 10:24 AM T [facility] LDL (CALCULATED) NOT CALCULATED <100 MG/DL 03/30/2019 10:24 AM T [facility] Comment:TRIGLYCERIDE >400 IN VALIDATES FRACTIONATION. NON HDL CHOLESTEROL 134(H) <130 MG/DL 03/30/2019 10:24 AM T [facility] CHOL/HDL RATIO 4.8(H) 0.0 - 4.5 03/30/2019 10:24 AM T [facility] VLDL CALCULATION NOT CALCULATED 5 - 55 MG/DL 03/30/2019 10:24 AM [facility] Comment:TRIGLYCERIDE >400 IN VALIDATES FRACTIONATION. LIPID INTERPRETATION 03/30/2019 10:24 AM T [facility] Comment: NIH CONCENSUS REPORT RECOMMENDATIONS: [...] Edited Result - Final Performing Organization Address [facility]/State/ZIP Co de Phone Number [facility] () [facility] [address] [place] [address], documented in this encounter Visit Diagnoses Diagnosis Pure hypercholesterolemia documented in this encounter Care Teams Nurse Monitoring Relationship Specialty Start Date End Date Frieda Wasserman MD PCP - General INTERNAL MEDICINE 08/31/18 02/23/20 Keiry Rucker NP Consulting Physician [facility] 10/04/18 04/13/19 documented as of this encounter
--- OUTSIDE RECORDS SUMMARY | 2024-09-21 01:19 | XMS_ITS | Encounter Summary ---
Author Organization [facility] Address [address] [place] [address] [place] [address] Care Team Providers Care Supervisor Lead Refinery Name Role Phone Frieda Wasserman MD Primary Care Provider Unavailab Keiry Salazar METAL TECHNICIAN Unavailable [phone] Encounter Details Date Type Department Care Team (Latest Contact Info) Description 02/27/2019 Scan HEALTH INFO SRVCS Scanned, Documents Social [...] filedocumented in this encounter Care Teams Supervisor Lead Refinery Relationship Specialty Start Date End Date Frieda Wasserman MD PCP - General INTERNAL MEDICINE 08/31/18 02/23/20 Keiry Rucker NP Consulting Physician [facility] 10/04/18 04/13/19 documented as of this encounter
--- OUTSIDE RECORDS SUMMARY | 2024-09-21 01:19 | XMS_ITS | Encounter Summary ---
Author Organization [facility] Address [facility] [place] [address] [place] [address] Care Team Providers Care Water Systems Designer Name Role Phone Frieda Wasserman MD Primary Care Provider Unavailab le Keiry Rucker SALVAGE ENGINEERING TECHNICIAN Unavailable [phone] Encounter Details Date Type Department Care Team (Late st Contact Info) Description 02/09/2019 Chart Prep [facility] [address] [place] [address] Jayesh Lara, [address] [address] Social History Tobacco Use Types Packs/Day Years [...] on filedocumented in this encounter Care Teams Water Systems Designer Relationship Specialty Start Date End Date Frieda Wasserman MD PCP - General INTERNAL MEDICINE 08/31/18 02/23/20 Keiry Rucker NP Consulting Physician [facility] Facility 10/04/18 04/13/19 documented as of this encounter
--- OUTSIDE RECORDS SUMMARY | 2024-09-21 01:19 | XMS_ITS | Encounter Summary ---
Author Organization [facility] Address [facility] [place] [address] [place] [address] Care Team Providers Care Director Of Customer Acquisition Name Role Phone Frieda Wasserman MD Primary Care Provider Unavailab Keiry Salazar PURIFYING PLANT OPERATOR Unavailable [phone] Reason for Visit * Reason Onset Date Comments Orders 02/28/2019 Encounter Details Date Type Department Care Team (Late st Contact Info) Description 02/28/2019 BOTTLE FEEDER ONLY [facility] [address] [place] [address] Jayesh Lara, DO [address] [address] Orders Social History Tobacco Use Types Packs/Day Years Used Date Smoking Tobacco: Unknown Comments Unknown Sex and Gender Information Value Date Recorded Sex Assigned at Not on file Legal Sex Female 10:25 PM CDT Gender Identity Not on file Sexual Orientation Not on file documented as of this encounter Progress Notes * Dorothy Kwong - 02/28/2019 1:18 PM CDT Facility faxed: Res L 5th finger is red, WTT, et has purulent drainage from cuticle area. On 02-17-2019 res was ordered neosporin to area BID x 7 days. Tx completed with no improvement noted. VS 98.8, 74, 16, 136/80. Order: culture discharge. Clindamycin 300 mg po every 8 hours x 7 days documented in this encounter Plan of Treatment Not on file documented as of this encounter Visit Diagnoses Not on filedocumented in this encounter Care Teams Director Of Customer Acquisition Relationship Specialty Start Date End Date Frieda Wasserman MD PCP - General INTERNAL MEDICINE 08/31/18 02/23/20 Keiry Rucker NP Consulting Physician Long Term Facility 10/04/18 04/13/19 documented as of this encounter
--- OUTSIDE RECORDS SUMMARY | 2024-09-21 01:19 | XMS_ITS | Encounter Summary ---
Author Organization [facility] Address [address] [place] [address] [place] [address] Care Team Providers Care Business Machines Teacher Name Role Phone Frieda Wasserman MD Primary Care Provider Unavailab Keiry Salazar ABSEILING INSTRUCTOR Unavailable [phone] Encounter Details Date Type Department Care Team (Late st Contact Info) Description 02/28/2019 Abstract [facility] [address] [place] [address] Frieda Wasserman MD Social History Tobacco Use [...] Associated Diagnosis Comments COMPREHENSIVE METABOLIC PANEL Routine 02/28/2019 11:22 AM CDT LIPID PANEL Routine 02/28/2019 11:22 AM CDT LIPOPROTEIN, LDL CHOL, DIRECT Routine 02/28/2019 11:22 AM CDT documented in this encounter Results * LIPOPROTEIN, LDL CHOL, DIRECT (02/28/2019 11:22 AM CDT) DIRECT LDL 43 <100 MG/DL 02/28/2019 12:13 PM CDT [facility] Comment: LDL OPTIMAL ?<100LDL NEAR OPTIMAL ? 100-129LDL BORDERLINE HIGH ?? 130-159LDL HIGH ? 160-189LDL VERY HIGH ?>=190 ?? 02/28/2019 11:2 2 AM CDT us Generic Conversion Md BERUMEN LABORATORY Final R esult [facility] [address] [place] [address], * (ABNORMAL) LIPID PANEL (02/28/2019 11:22 AM CDT) CHOLESTEROL 177 <200.0 MG/DL 02/28/2019 11:53 AM CDT [facility] TRIGLYCERIDES 766(H) <150 MG/DL 02/28/2019 11:53 AM [facility] Comment:REFLEXED DIRECT LDL DUE TO TRIG >400. HDL 39(L) >40.0 MG/DL 02/28/2019 11:53 AM T [facility] LDL (CALCULATED) NOT CALCULATED <100 MG/DL 02/28/2019 11:53 AM T [facility] Comment:TRIGLYCERIDE >400 IN VALIDATES FRACTIONATION. NON HDL CHOLESTEROL 138(H) <130 MG/DL 02/28/2019 11:53 AM T [facility] CHOL/HDL RATIO 4.5 0.0 - 4.5 02/28/2019 11:53 AM [facility] VLDL CALCULATION NOT CALCULATED 5 - 55 MG/DL 02/28/2019 11:53 AM [facility] Comment:TRIGLYCERIDE >400 IN VALIDATES FRACTIONATION. LIPID INTERPRETATION 02/28/2019 11:53 AM CDT [facility] Comment: NIH CONCENSUS REPORT RECOMMENDATIONS: ?ADULT ? CHILD ??LOW RISK: ?CHOLESTEROL ? <200 ? <170 ? TRIGLYCERIDE ?<150 ?--- ?HDL ? >=60 ?--- ?LDL ? <100 ? <110 ?? BORDERLINE: ?CHOLESTEROL ? 200-239 ?? 170-199 ?TRIGLYCERIDE ?150-199 ? --- ?HDL ? 40-59 ?--- ?LDL ? 100-159 ?? 110- 129 ?? HIGH RISK: ? CHOLESTEROL ? >=240 ?>=200 ?TRIGLYCERIDE ?>=200 ? --- ?HDL ?<40 ?--- ?LDL ? >=160 ?>=130 OTHER (type in comments) 02/28/2019 11:22 AM CDT 02/28/2019 11:23 AM CDT Comment:ACELLULAR BLOOD (SER UM OR PLASMA) SPECIMEN us Generic Conversion Md BERUMEN LABORATORY Final R esult [facility] [address] [place] [address], [place] [phone] * (ABNORMAL) COMPREHENSIVE METABOLIC PANEL (02/28/2019 11:22 AM CDT) GLUCOSE 173(H) 70 - 99 MG/DL 02/28/2019 11:53 AM CDT [facility] BUN 15 7 - 18 MG/DL 02/28/2019 11:53 AM T [facility] CREATININE S/P/B 0.98 0.55 - 1.02 MG/DL 02/28/2019 11:53 AM T [facility] SODIUM S/P/B 144 136 - 145 MMOL/L 02/28/2019 11:53 AM T [facility] POTASSIUM S/P/B 4.8 3.5 - 5.1 MMOL/L 02/28/2019 11:53 AM T [facility] CHLORIDE S/P/B 104 100 - 108 MMOL/L 02/28/2019 11:53 AM T [facility] CO2 28.1 21 - 32 MMOL/L 02/28/2019 11:53 AM T [facility] CALCIUM S/P/B 9.6 8.5 - 10.1 MG/DL 02/28/2019 11:53 AM T [facility] BILIRUBIN TOTAL S/P/B 0.3 0.2 - 1.2 MG/DL 02/28/2019 11:53 AM T [facility] TOTAL PROTEIN S/P/B 6.9 6.4 - 8.2 G/DL 02/28/2019 11:53 AM T [facility] ALBUMIN S/P/B 3.4 3.4 - 5.0 G/DL 02/28/2019 11:53 AM T [facility] AST 31 15 - 37 U/L 02/28/2019 11:53 AM T [facility] ALT 54 14 - 55 U/L 02/28/2019 11:53 AM T [facility] ALKALINE PHOSPHATASE S/P/B 122 50 - 136 U/L 02/28/2019 11:53 AM T [facility] ANION GAP 11.9 5 - 15 MMOL/L 02/28/2019 11:53 AM [facility] BUN CREATININE RATIO 15.3 6 - 26 02/28/2019 11:53 AM [facility] A/G RATIO 1.0 1.0 - 2.0 RATIO 02/28/2019 11:53 AM [facility] EGFR NON-AFR. AMER. 56(L) >90 ML/MIN/1.7 3 M2 02/28/2019 11:53 AM [facility] EGFR AFR. AMER. 65(L) >90 ML/MIN/1.7 3 M2 02/28/2019 11:53 AM [facility] Comment: NOTE: eGFR is not calculated for patients <18 years of age. This is an estimated GFR (CKD EPI) and should not be used for calculating drug doses. 02/28/2019 11:2 2 AM CDT 02/28/2019 11:23 AM CDT us Generic Conversion Md BERUMEN LABORATORY Final R esult [facility] [address] [place] [address], [place] [phone] documented in this encounter Visit Diagnoses Diagnosis Hyperlipidemia Other and unspecified hyperlipidemia documented in this encounter Care Teams Business Machines Teacher Relationship Specialty Start Date End Date Frieda Wasserman MD PCP - General INTERNAL MEDICINE 08/31/18 02/23/20 Keiry Rucker NP Consulting Physician [facility] Facility 10/04/18 04/13/19 documented as of this encounter
--- OUTSIDE RECORDS SUMMARY | 2024-09-21 01:19 | XMS_ITS | Encounter Summary ---
Author Organization [facility] Address [address] [facility] [address] [place] [address] [place] [address] Care Team Providers Care Machine Boss Name Role Phone Frieda Wasserman MD Primary Care Provider Unavailab Keiry Salazar OWNER/PHOTOGRAPHER Unavailable [phone] Encounter Details Date Type Department Care Team (Latest Contact Info) Description 02/08/2019 Scan HEALTH INFO SRVCS Scanned, Documents Social [...] filedocumented in this encounter Care Teams Machine Boss Relationship Specialty Start Date End Date Frieda Wasserman MD PCP - General INTERNAL MEDICINE 08/31/18 02/23/20 Keiry Rucker NP Consulting Physician [facility] Facility 10/04/18 04/13/19 documented as of this encounter
--- OUTSIDE RECORDS SUMMARY | 2024-09-21 01:19 | XMS_ITS | Encounter Summary ---
Author Organization [facility] Address [address] [place] [address] [place] [address] Care Team Providers Care Toy Packer Name Role Phone Frieda Wasserman MD Primary Care Provider Unavailab Keiry Salazar TICKET TAKER FERRYBOAT Unavailable [phone] Encounter Details Date Type Department Care Team (Late st Contact Info) Description 02/28/2019 Orders Only [facility] Priority Care - [address] [place] [address] Frieda Wasserman MD Social History Tobacco Use [...] AM CDT) DIRECT LDL 43 <100 MG/DL [facility] Comment: LDL OPTIMAL ?<100 LDL NEAR OPTIMAL ? 100-129 LDL BORDERLINE HIGH ??130-159 LDL HIGH ? 160-189 LDL VERY HIGH ?>=190 02/28/2019 11:2 2 AM CDT 02/28/2019 11:23 AM CDT us Frieda Wasserman MD LABORATORY Final Result [facility] [address] [place] [address], * (ABNORMAL) LIPID PANEL (02/28/2019 11:22 AM CDT) CHOLESTEROL 177 <200.0 MG/DL [facility] TRIGLYCERIDES 766(H) <150 MG/DL [facility] Comment:REFLEXED DIRECT LDL DUE TO TRIG >400. HDL 39(L) >40.0 MG/DL [facility] LDL (CALCULATED) NOT CALCULATED <100 MG/DL [facility] Comment:TRIGLYCERIDE >400 IN VALIDATES FRACTIONATION. NON HDL CHOLESTEROL 138(H) <130 MG/DL [facility] CHOL/HDL RATIO 4.5 0.0 - 4.5 [facility] VLDL CALCULATION NOT CALCULATED 5 - 55 MG/DL [facility] Comment:TRIGLYCERIDE >400 IN VALIDATES FRACTIONATION. LIPID INTERPRETATION [facility] Comment: NIH CONCENSUS [...] ?HDL ?<40 ?--- ?LDL ? >=160 ?>=130 02/28/2019 11:2 2 AM CDT 02/28/2019 11:23 AM CDT us Frieda Wasserman MD LABORATORY Final Result [facility] [address] [place] [address], * (ABNORMAL) COMPREHENSIVE METABOLIC PANEL (02/28/2019 11:22 AM CDT) [facility] GLUCOSE 173(H) 70 - 99 MG/DL [facility] BUN 15 7 - 18 MG/DL [facility] CREATININE S/P/B 0.98 0.55 - 1.02 MG/DL [facility] SODIUM S/P/B 144 136 - 145 MMOL/L [facility] POTASSIUM S/P/B 4.8 3.5 - 5.1 MMOL/L [facility] CHLORIDE S/P/B 104 100 - 108 MMOL/L [facility] CO2 28.1 21 - 32 MMOL/L [facility] CALCIUM S/P/B 9.6 8.5 - 10.1 MG/DL [facility] BILIRUBIN TOTAL S/P/B 0.3 0.2 - 1.2 MG/DL [facility] TOTAL PROTEIN S/P/B 6.9 6.4 - 8.2 G/DL [facility] ALBUMIN S/P/B 3.4 3.4 - 5.0 G/DL [facility] AST 31 15 - 37 U/L [facility] ALT 54 14 - 55 U/L [facility] ALKALINE PHOSPHATASE S/P/B 122 50 - 136 U/L [facility] ANION GAP 11.9 5 - 15 MMOL/L [facility] BUN CREATININE RATIO 15.3 6 - 26 [facility] A/G RATIO 1.0 1.0 - 2.0 RATIO [facility] EGFR NON-AFR. AMER. 56(L) >90 ML/MIN/1.7 3 M2 [facility] EGFR AFR. AMER. 65(L) >90 ML/MIN/1.7 3 M2 [facility] Comment: NOTE: eGFR is not calculated for patients <18 years of age. This is an estimated GFR (CKD EPI) and should not be used for calculating drug doses. 02/28/2019 11:2 2 AM CDT 02/28/2019 11:23 AM CDT us Frieda Wasserman MD LABORATORY Edited Result - Final [facility] [address] [place] [address], documented in this encounter Visit Diagnoses Not on filedocumented in this encounter Care Teams Toy Packer Relationship Specialty Start Date End Date Frieda Wasserman MD PCP - General INTERNAL MEDICINE 08/31/18 02/23/20 Keiry Rucker NP Consulting Physician [facility] Facility 10/04/18 04/13/19 documented as of this encounter
--- OUTSIDE RECORDS SUMMARY | 2024-09-21 01:19 | XMS_ITS | Encounter Summary ---
Author Organization [facility] Address [address] [facility] [place] [address] [place] [address] Care Team Providers Care Director Of User Experience Name Role Phone Frieda Wasserman MD Primary Care Provider Unavailab Keiry Salazar BLENDER MACHINE OPERATOR Unavailable [phone] Encounter Details Date Type Department Care [...] in this encounter Care Teams Director Of User Experience Relationship Specialty Start Date End Date Frieda Wasserman MD PCP - General INTERNAL MEDICINE 08/31/18 02/23/20 Keiry Rucker NP Consulting Physician [facility] Facility 10/04/18 04/13/19 documented as of this encounter
--- OUTSIDE RECORDS SUMMARY | 2024-09-21 01:19 | XMS_ITS | Encounter Summary ---
Author Organization [facility] Address [facility] [facility] [place] [address] [place] [address] Care Team Providers Care Architect Intern Name Role Phone Frieda Wasserman MD Primary Care Provider Unavailab le Keiry Rucker METAL BED ASSEMBLER Unavailable [phone] Encounter Details Date Type Department Care Team (Late st Contact Info) Description 02/10/2019 Chart Prep [facility] [address] [place] [address] Jayesh Lara, [address] [address] Social History Tobacco Use Types Packs/Day Years [...] on filedocumented in this encounter Care Teams Architect Intern Relationship Specialty Start Date End Date Frieda Wasserman MD PCP - General INTERNAL MEDICINE 08/31/18 02/23/20 Keiry Rucker NP Consulting Physician [facility] Facility 10/04/18 04/13/19 documented as of this encounter
--- OUTSIDE RECORDS SUMMARY | 2024-09-21 01:19 | XMS_ITS | Encounter Summary ---
Author Organization [facility] Address [address] [facility] [place] [address] [place] [address] Care Team Providers Care Applicator Sprayer Name Role Phone Frieda Wasserman MD Primary Care Provider Unavailab Keiry Salazar FOREPART ROUNDER Unavailable [phone] Encounter Details Date Type Department Care Team (Latest Contact Info) Description 02/14/2019 Scan HEALTH INFO SRVCS Scanned, Documents Social [...] on filedocumented in this encounter Care Teams Applicator Sprayer Relationship Specialty Start Date End Date Frieda Wasserman MD PCP - General INTERNAL MEDICINE 08/31/18 02/23/20 Keiry Rucker NP Consulting Physician [facility] Facility 10/04/18 04/13/19 documented as of this encounter
--- OUTSIDE RECORDS SUMMARY | 2024-09-21 01:19 | XMS_ITS | Encounter Summary ---
Author Organization [facility] Address [address] [place] [address] [place] [address] Care Team Providers Care Slag Wheeler Name Role Phone Frieda Wasserman MD Primary Care Provider Unavailab Keiry Salazar CLINICAL ENGINEER Unavailable [phone] Encounter Details Date Type Department Care Team (Late st Contact Info) Description 02/14/2019 Orders Only [facility] Priority [facility] - [address] [place] [address] Jayesh Lara, DO [address] [id number] Social History Tobacco Use Types Packs/Day Years [...] Procedure Name Priority Date/Time Associated Diagnosis Comments SED RATE, ERYTHROCYTE (ESR) Routine 02/14/2019 10:01 AM CDT CBC W/DIFF AUTOMATED Routine 02/14/2019 10:01 AM CDT documented in this encounter Results * SED RATE, ERYTHROCYTE (ESR) (02/14/2019 10:01 AM CDT) ESR 16 0 - 20 MM/HR [facility] 02/14/2019 10:0 1 AM CDT 02/14/2019 10:02 AM CDT Jayesh Lara DO LABORATORY Final Result [facility] [address] [place] [address], [place] [phone] * (ABNORMAL) CBC W/DIFF AUTOMATED (02/14/2019 10:01 AM CDT) WBC 6.3 4.4 - 11.0 x10'3/uL [facility] RBC 5.07 4.50 - 5.10 x10'6/uL [facility] HGB 15.2 12.3 - 15.3 G/DL [facility] HCT 45.8(H) 35.9 - 44.6 % [facility] MCV 90.3 80.0 - 96.0 FL [facility] MCH 30.0 25.3 - 30.9 PG [facility] MCHC 33.2 31.0 - 34.1 G/DL [facility] RDW 14.1 12.4 - 15.1 % [facility] PLT 204 151 - 353 x10'3/uL [facility] MPV 10.5 9.6 - 12.0 FL [facility] RBC MORPHOLOGY NORMAL [facility] PLT MORPH. NORMAL [facility] WBC MORPHOLOGY NORMAL [facility] LYMPHOCYTES % 23.7 15.8 - 45.0 % [facility] NEUTROPHILS % 67.8 42.1 - 71.9 % [facility] MONOCYTES % 5.7 5.7 - 12.5 % [facility] EOSINOPHILS 2.2 0.0 - 5.6 % [facility] BASOPHILS 0.3 0.0 - 1.3 % [facility] ABS. NEUTROPHILS TOTAL 4.29 1.40 - 6.00 x10'3/uL [facility] IMMATURE GRANS % 0.3 0.0 - 0.5 % [facility] ABS. LYMPHOCYTES 1.50 0.80 - 4.70 x10'3/uL [facility] 02/14/2019 10:0 1 AM CDT 02/14/2019 10:02 AM CDT us Jayesh Lara DO LABORATORY Edited Result - Final [facility] [address] [place] [address], documented in this encounter Visit Diagnoses Not on filedocumented in this encounter Care Teams Slag Wheeler Relationship Specialty Start Date End Date Freida Wasserman MD PCP - General INTERNAL MEDICINE 08/31/18 02/23/20 Keiry Rucker NP Consulting Physician Long-Term Facility 10/04/18 04/13/19 documented as of this encounter
--- OUTSIDE RECORDS SUMMARY | 2024-09-21 01:19 | XMS_ITS | Encounter Summary ---
Author Organization [facility] Address [facility] [facility] [place] [address] [place] [address] Care Team Providers Care Milling Machine Operator Name Role Phone Frieda Wasserman MD Primary Care Provider Unavailab le Keiry Rucker ULTRASONIC CLEANER Unavailable [phone] Encounter Details Date Type Department Care Team (Late st Contact Info) Description 02/18/2019 Chart Prep [facility] [address] [place] [address] Keiry Rucker ULTRASONIC CLEANER [address] [place] [address] Social History Tobacco Use Types Packs/Day Years [...] on filedocumented in this encounter Care Teams Milling Machine Operator Relationship Specialty Start Date End Date Frieda Wasserman MD PCP - General INTERNAL MEDICINE 08/31/18 02/23/20 Keiry Rucker NP Consulting Physician [facility] Facility 10/04/18 04/13/19 documented as of this encounter
--- OUTSIDE RECORDS SUMMARY | 2024-09-21 01:19 | XMS_ITS | Encounter Summary ---
Author Organization [facility] Address [address] [place] [address] [place] [address] Care Team Providers Care Swimming Professor Name Role Phone Frieda Wasserman MD Primary Care Provider Unavailab Keiry Salazar LOFT PATTERNMAKER Unavailable [phone] Encounter Details Date Type Department Care [...] on filedocumented in this encounter Care Teams Swimming Professor Relationship Specialty Start Date End Date Frieda Wasserman MD PCP - General INTERNAL MEDICINE 08/31/18 02/23/20 Keiry Rucker NP Consulting Physician [facility] Facility 10/04/18 04/13/19 documented as of this encounter
--- OUTSIDE RECORDS SUMMARY | 2024-09-21 01:19 | XMS_ITS | Encounter Summary ---
Author Organization [facility] Address [address] [facility] [place] [address] [place] [address] Care Team Providers Care Machine Container Washer Name Role Phone Frieda Wasserman MD Primary Care Provider Unavailab Keiry Salazar LICENSED PROSTHETIST/ORTHOTIST Unavailable [phone] Encounter Details Date Type Department Care Team (Latest Contact Info) Description 02/17/2019 Scan HEALTH INFO SRVCS Scanned, Documents Social [...] filedocumented in this encounter Care Teams Machine Container Washer Relationship Specialty Start Date End Date Frieda Wasserman MD PCP - General INTERNAL MEDICINE 08/31/18 02/23/20 Keiry Rucker NP Consulting Physician [facility] Facility 10/04/18 04/13/19 documented as of this encounter
--- OUTSIDE RECORDS SUMMARY | 2024-09-21 01:19 | XMS_ITS | Encounter Summary ---
Author Organization [facility] Address [address] [facility] [place] [place] [address] [place] [address] Care Team Providers Care Icd 9 Coder Name Role Phone Frieda Wasserman MD Primary Care Provider Unavailab Keiry Salazar MATERIAL DISTRIBUTOR Unavailable [phone] Encounter Details Date Type Department Care Team (Latest Contact Info) Description 02/28/2019 Scan HEALTH INFO SRVCS Scanned, Documents Social [...] on filedocumented in this encounter Care Teams Icd 9 Coder Relationship Specialty Start Date End Date Frieda Wasserman MD PCP - General INTERNAL MEDICINE 08/31/18 02/23/20 Keiry Rucker NP Consulting Physician [facility] Facility 10/04/18 04/13/19 documented as of this encounter
--- OUTSIDE RECORDS SUMMARY | 2024-09-21 01:19 | XMS_ITS | Encounter Summary ---
Author Organization [facility] Address [facility] [facility] [place] [address] [place] [address] Care Team Providers Care Supervisor Whipped Topping Name Role Phone Frieda Wasserman MD Primary Care Provider Unavailab Keiry Salazar SWEATBAND DRUMMER Unavailable [phone] Reason for Visit * Reason Onset Date Comments Orders 02/28/2019 Encounter Details Date Type Department Care Team (Late st Contact Info) Description 02/28/2019 Telephone [facility] [address] [place] [address] Jayesh Lara, DO [address] [address] Orders Social History Tobacco Use Types Packs/Day Years Used Date Smoking Tobacco: Unknown Comments Unknown Sex and Gender Information Value Date Recorded Sex Assigned at Not on file Legal Sex Female 10:25 PM CDT Gender Identity Not on file Sexual Orientation Not on file documented as of this encounter Progress Notes * Ronel Hoang RN - 03/01/2019 12:26 PM CDT Rec'd order to cx drainage on pinky finger. No further drainage noted -- unable to obtain cx. Orderrec'd for oral abx. Asking for Bactroban to pinky finger. Order given for Bactroban daily x7 days. documented in this encounter Plan of Treatment Not on file documented as of this encounter Visit Diagnoses Not on filedocumented in this encounter Care Teams Supervisor Whipped Topping Relationship Specialty Start Date End Date Frieda Wasserman MD PCP - General INTERNAL MEDICINE 08/31/18 02/23/20 Keiry Rucker NP Consulting Physician Intermediate Facility 10/04/18 04/13/19 documented as of this encounter
--- OUTSIDE RECORDS SUMMARY | 2024-09-21 01:19 | XMS_ITS | Encounter Summary ---
Author Organization [facility] Address [address] [place] [address] [place] [address] Care Team Providers Care Signal Tester Name Role Phone Frieda Wasserman MD Primary Care Provider Unavailab Keiry Salazar INTERIOR ASSEMBLIES DEVELOPER PROVER Unavailable [phone] Encounter Details Date Type Department Care Team (Late st Contact Info) Description 02/14/2019 Abstract [facility] [address] [place], [place] [id number] Jayesh Lara, [address] [address] Social History Tobacco Use Types Packs/Day Years [...] CDT) ESR 16 0 - 20 MM/HR 02/14/2019 11:10 AM CDT [facility] WHOLE BLOOD SPECIMEN / Unknown 02/14/2019 10:01 AM CDT 02/14/2019 10:02 AM CDT us Generic Conversion Md [facility] Final R esult [facility] [address] [place] [address], * (ABNORMAL) CBC W/DIFF AUTOMATED (02/14/2019 10:01 AM CDT) WBC 6.3 4.4 - 11.0 x10'3/uL 02/14/2019 10:08 AM CDT [facility] RBC 5.07 4.50 - 5.10 x10'6/uL 02/14/2019 10:08 AM CDT [facility] HGB 15.2 12.3 - 15.3 G/DL 02/14/2019 10:08 AM CDT [facility] HCT 45.8(H) 35.9 - 44.6 % 02/14/2019 10:08 AM CDT [facility] MCV 90.3 80.0 - 96.0 FL 02/14/2019 10:08 AM CDT [facility] MCH 30.0 25.3 - 30.9 PG 02/14/2019 10:08 AM CDT [facility] MCHC 33.2 31.0 - 34.1 G/DL 02/14/2019 10:08 AM CDT [facility] RDW 14.1 12.4 - 15.1 % 02/14/2019 10:08 AM CDT [facility] PLT 204 151 - 353 x10'3/uL 02/14/2019 10:08 AM CDT [facility] MPV 10.5 9.6 - 12.0 FL 02/14/2019 10:08 AM CDT [facility] RBC MORPHOLOGY NORMAL 02/14/2019 10:08 AM T [facility] PLT MORPH. NORMAL 02/14/2019 10:08 AM T [facility] WBC MORPHOLOGY NORMAL 02/14/2019 10:08 AM CDT [facility] LYMPHOCYTES % 23.7 15.8 - 45.0 % 02/14/2019 10:08 AM T [facility] NEUTROPHILS % 67.8 42.1 - 71.9 % 02/14/2019 10:08 AM CDT [facility] MONOCYTES % 5.7 5.7 - 12.5 % 02/14/2019 10:08 AM T [facility] EOSINOPHILS 2.2 0.0 - 5.6 % 02/14/2019 10:08 AM CDT [facility] BASOPHILS 0.3 0.0 - 1.3 % 02/14/2019 10:08 AM [facility] ABS. NEUTROPHILS TOTAL 4.29 1.40 - 6.00 x10'3/uL 02/14/2019 10:08 AM T [facility] IMMATURE GRANS % 0.3 0.0 - 0.5 % 02/14/2019 10:08 AM T [facility] ABS. LYMPHOCYTES 1.50 0.80 - 4.70 x10'3/uL 02/14/2019 10:08 AM [facility] 02/14/2019 10:0 1 AM CDT 02/14/2019 10:02 AM CDT us Generic Conversion Md [facility] Final R esult [facility] [address] [place] [address], documented in this encounter Visit Diagnoses Diagnosis Disorder of skin or subcutaneous tissue Unspecified disorder of skin and subcutaneous tissue documented in this encounter Care Teams Signal Tester Relationship Specialty Start Date End Date Frieda Wasserman MD PCP - General INTERNAL MEDICINE 08/31/18 02/23/20 Keiry Rucker NP Consulting Physician [facility] 10/04/18 04/13/19 documented as of this encounter
--- OUTSIDE RECORDS SUMMARY | 2024-09-21 01:19 | XMS_ITS | Encounter Summary ---
Author Organization [facility] Address [address] [place] [address] [place] [address] Care Team Providers Care Tso Name Role Phone Frieda Wasserman MD Primary Care Provider Unavailab Keiry Salazar MONOMER PURIFICATION OPERATOR Unavailable [phone] Encounter Details Date Type Department Care Team (Late st Contact Info) Description 02/08/2019 Abstract [facility] [address] [place] [address] Frieda Wasserman MD Social History [...] Diagnosis Comments SED RATE, ERYTHROCYTE (ESR) Routine 02/08/2019 10:12 AM CDT CBC W/DIFF AUTOMATED Routine 02/08/2019 10:12 AM CDT documented in this encounter Results * (ABNORMAL) SED RATE, ERYTHROCYTE (ESR) (02/08/2019 10:12 AM CDT) ESR 29(H) 0 - 20 MM/HR 02/08/2019 11:10 AM CDT [facility] WHOLE BLOOD SPECIMEN / Unknown 02/08/2019 10:12 AM CDT 02/08/2019 10:13 AM CDT us Generic Conversion Md [facility] Final R esult [facility] [address] [place] [address], * (ABNORMAL) CBC W/DIFF AUTOMATED (02/08/2019 10:12 AM CDT) WBC 4.5 4.4 - 11.0 x10'3/uL 02/08/2019 10:26 AM CDT [facility] RBC 4.95 4.50 - 5.10 x10'6/uL 02/08/2019 10:26 AM CDT [facility] HGB 14.5 12.3 - 15.3 G/DL 02/08/2019 10:26 AM CDT [facility] HCT 45.0(H) 35.9 - 44.6 % 02/08/2019 10:26 AM CDT [facility] MCV 90.9 80.0 - 96.0 FL 02/08/2019 10:26 AM CDT [facility] MCH 29.3 25.3 - 30.9 PG 02/08/2019 10:26 AM CDT [facility] MCHC 32.2 31.0 - 34.1 G/DL 02/08/2019 10:26 AM CDT [facility] RDW 14.1 12.4 - 15.1 % 02/08/2019 10:26 AM CDT [facility] PLT 185 151 - 353 x10'3/uL 02/08/2019 10:26 AM CDT [facility] MPV 10.3 9.6 - 12.0 FL 02/08/2019 10:26 AM CDT [facility] RBC MORPHOLOGY NORMAL 02/08/2019 10:26 AM T [facility] PLT MORPH. NORMAL 02/08/2019 10:26 AM T [facility] WBC MORPHOLOGY NORMAL 02/08/2019 10:26 AM T [facility] LYMPHOCYTES % 22.5 15.8 - 45.0 % 02/08/2019 10:26 AM T [facility] NEUTROPHILS % 68.4 42.1 - 71.9 % 02/08/2019 10:26 AM [facility] MONOCYTES % 6.9 5.7 - 12.5 % 02/08/2019 10:26 AM T [facility] EOSINOPHILS 1.8 0.0 - 5.6 % 02/08/2019 10:26 AM [facility] BASOPHILS 0.2 0.0 - 1.3 % 02/08/2019 10:26 AM [facility] ABS. NEUTROPHILS TOTAL 3.07 1.40 - 6.00 x10'3/uL 02/08/2019 10:26 AM [facility] IMMATURE GRANS % 0.2 0.0 - 0.5 % 02/08/2019 10:26 AM T [facility] ABS. LYMPHOCYTES 1.01 0.80 - 4.70 x10'3/uL 02/08/2019 10:26 AM T [facility] 02/08/2019 10:1 2 AM CDT 02/08/2019 10:13 AM CDT us Generic Conversion Md [facility] Final R esult [facility] [address] [place] [address], documented in this encounter Visit Diagnoses Diagnosis Type 2 diabetes mellitus without complications ([facility]/HCC [facility]) Type II or unspecified type diabetes mellitus without mention of complication, not stated as uncontrolled documented in this encounter Care Teams Tso Relationship Specialty Start Date End Date Frieda Wasserman MD PCP - General INTERNAL MEDICINE 08/31/18 02/23/20 Keiry Rucker NP Consulting Physician [facility] 10/04/18 04/13/19 documented as of this encounter
--- OUTSIDE RECORDS SUMMARY | 2024-09-21 01:19 | XMS_ITS | Encounter Summary ---
Author Organization [facility] Address [address] [address] [place] [address] [place] [address] Care Team Providers Care Medical Supply Technician Name Role Phone Beni Cevallos MD Primary Care Provider Unavailab Keiry Salazar NP Unavailable [phone] Reason for Visit * Reason Comments Halfway routine Encounter Details Date Type Department Care Team (Late st Contact Info) Description 02/23/2019 8:20 AM CDT [facility] [address] [id number] Keiry Rucker NP [address] [place] [address] Halfway (routine) Social History Tobacco Use Types Packs/Day Years Used Date Smoking Tobacco: Unknown Comments Unknown Sex and Gender Information Value Date Recorded Sex Assigned at Not on file Legal Sex Female 10:25 PM CDT Gender Identity Not on file Sexual Orientation Not on file documented as of this encounter Progress Notes * Keiry Rucker NP - 02/23/2019 8:20 AM CDT Reason for Visit: Halfway (routine) History of Present Illness: 78 y/o female. Seen today at [facility]. Seen for follow-up pre-existing medical health conditions. Staff report no new concerns. ?? -Senile Alz Dementia: Advanced dementia on Namenda and aricept regimen. Elizabeth at . ??Patient is total care. Requires assist with all aspects of care. ?? HTN: Controlled. Norvasc, Lisinopril, and Metoprolol. Labs reviewed and stable. ?? HLD: Fenofibrate. ?? DMII: Amaryl 0.5 mg QAM. A1C 6.8%. Bun/Creat 20/1.2. Stable. ?? MS: Non weight bearing. Joana Lift. ROS: Review of Systems Unable to perform ROS: Dementia Medications: Current Outpatient Medications: ??? amlodipine 10 MG tablet, Take 1 tablet by mouth daily., Disp: , Rfl: ??? aspirin 81 MG chewable tablet, Chew 1 tablet by mouth daily., Disp: , Rfl: ??? Benzalkonium Chloride (CAVILON SKIN CLEANSER EX), Apply topically 2 (two) times daily., Disp: ,Rfl: ??? colesevelam 625 MG tablet, Take 1,875 mg by mouth 2 (two) times daily with meals., Disp: , Rfl: ??? cyanocobalamin 1000 MCG/ML injection, Inject 1 mL into the muscle monthly. , Disp: , Rfl: ??? dextromethorphan-guaifenesin 10-100 MG/5ML liquid, Take 5 mLs by mouth every 4 (four) hours as needed., Disp: , Rfl: ??? docusate sodium 100 MG capsule, Take 100 mg by mouth 2 (two) times daily., Disp: , Rfl: ??? donepezil 10 MG Tab, Take 10 mg by mouth 2 (two) times daily., Disp: , Rfl: ??? glimepiride 1 MG tablet, Take 0.5 tablets by mouth daily., Disp: , Rfl: ??? hydrocortisone 1 [...] MAGNESIA OR), Take 30 mLs by mouth daily., Disp: , Rfl: ??? memantine ER (NAMENDA XR) 28 MG 24 hr capsule, Take 1 capsule by mouth daily., Disp: , Rfl: ??? metoprolol tartrate 25 MG tablet, Take 25 mg by mouth 2 (two) times daily., Disp: , Rfl: ??? miconazole (MICRO GUARD) [...] (two) times daily., Disp: , Rfl: ??? Tolnaftate (ANTIFUNGAL SPRAY POWDER EX), Apply topically as needed., Disp: , Rfl: ??? vitamin D2, ergocalciferol, [address]27 UNITS capsule, Take 2 capsules by mouth once a week. , Disp: , Rfl: Allergies Allergen Reactions ??? Metronidazole Unknown Past Medical History: Diagnosis Date ??? Chronic indwelling Zhang catheter No past [...] file Gets together: Not on file Attends holiness service: Not on file Active member of [...] ??? Not on file Social History Narrative ??? Not on file E-Cigarettes Questions Responses E-Cigarette Use Never Assessed Family History Family history unknown: Yes No family status information on file. Physical Exam Constitutional: She appears well-nourished. No distress. HENT: Head: Atraumatic. Eyes: Conjunctivae are normal. Cardiovascular: Normal rate, regular rhythm and normal heart sounds. Pulmonary/Chest: Effort normal. No stridor. No respiratory distress. She has no wheezes. She has derek. Abdominal: Soft. Bowel sounds are normal. Neurological: She is alert. To self. Skin: Skin is warm and dry. Psychiatric: She has a normal mood and affect. Nursing note and vitals reviewed. There were no vitals filed for this visit. Impression/Plan: Encounter Diagnoses Name SNOMED CT(R) Primary? 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 Type 2 diabetes mellitus with diabetic polyneuropathy, without long-term current use of insulin([facility]) TYPE 2 DIABETES MELLITUS ??? Generalized multiple sclerosis (CMS/HCC) MULTIPLE SCLEROSIS ??? Essential hypertension ESSENTIAL HYPERTENSION ??? Muscle weakness (generalized) MUSCLE WEAKNESS ??? Hyperlipidemia, unspecified hyperlipidemia type HYPERLIPIDEMIA ??? Uncontrolled type 2 diabetes mellitus with hyperglycemia ([facility]/HCC) TYPE II DIABETES MELLITUS UNCONTROLLED -Resume active care regimen. -RTC 3 months, unless needed sooner. Keiry Rucker Referring Provider: PCP: BENI CEVALLOS MD documented in this encounter Plan of Treatment Not on file documented as of this encounter Visit Diagnoses Diagnosis Late onset Alzheimer's disease without behavioral disturbance ([facility]/HCC [facility]/HCC)- Primary Type 2 diabetes mellitus with diabetic polyneuropathy, without long-term current use of insulin ([facility]CC [facility]/HCC) Generalized multiple sclerosis ([facility]CC [facility]/HCC) Multiple sclerosis Essential hypertension Unspecified essential hypertension Muscle weakness (generalized) Hyperlipidemia, unspecified hyperlipidemia type Uncontrolled type 2 diabetes mellitus with hyperglycemia ([facility]CC [facility]/HCC) documented in this encounter Care Teams Medical Supply Technician Relationship Specialty Start Date End Date Beni Cevallos MD PCP - General INTERNAL MEDICINE 08/31/18 02/23/20 Keiry Rucker NP Consulting Physician [facility] Facility 10/04/18 04/13/19 documented as of this encounter
--- OUTSIDE RECORDS SUMMARY | 2024-09-21 01:19 | XMS_ITS | Encounter Summary ---
Author Organization [facility] Address [address] [facility] [place] [address] [place] [address] Care Team Providers Care Cable Layer Name Role Phone Frieda Wasserman MD Primary Care Provider Unavailab Keiry Salazar TEMPLATE STORAGE CLERK Unavailable [phone] Reason for Visit * Reason Onset Date Comments Orders 02/18/2019 Encounter Details Date Type Department Care Team (Late st Contact Info) Description 02/18/2019 TOOLMAN ONLY [facility] [address] [place] [address] Jaeysh Lara, DO [address] [address] Orders Social History Tobacco Use Types Packs/Day Years Used Date Smoking Tobacco: Unknown Comments Unknown Sex and Gender Information Value Date Recorded Sex Assigned at Not on file Legal Sex Female 10:25 PM CDT Gender Identity Not on file Sexual Orientation Not on file documented as of this encounter Progress Notes * Dorothy Kwong - 02/18/2019 10:40 AM CDT Facility faxed: Resident has a bright red area to pinky finger around base of nail bed. Scant pus noted around cuticle area. No c/o pain. Can we start antibiotics and possibly a gent oint? Orders: neosporin to area BID x 7 days documented in this encounter Plan of Treatment Not on file documented as of this encounter Visit Diagnoses Not on filedocumented in this encounter Care Teams Cable Layer Relationship Specialty Start Date End Date Frieda Wasserman MD PCP - General INTERNAL MEDICINE 08/31/18 02/23/20 Keiry Rucker NP Consulting Physician [facility] 10/04/18 04/13/19 documented as of this encounter
--- OUTSIDE RECORDS SUMMARY | 2024-09-21 01:20 | XMS_ITS | Encounter Summary ---
Author Organization [facility] Address [facility] [facility] [place] [address] [place] [address] Care Team Providers Care Manager Clinical Informatics Name Role Phone Frieda Wasserman MD Primary Care Provider Unavailab Keiry Salazar AIR TOOL OPERATOR Unavailable [phone] Encounter Details Date Type Department Care Team (Late st Contact Info) Description 10/14/2018 Orders Only [facility] Family & Internal Medicine - [address] [address] Ronel Hoang, RN Social History Tobacco Use [...] without long-term current use of insulin ([facility])- Primary documented in this encounter Care Teams Manager Clinical Informatics Relationship Specialty Start Date End Date Frieda Wasserman MD PCP - General INTERNAL MEDICINE 08/31/18 02/23/20 Keiry Rucker NP Consulting Physician [facility] 10/04/18 04/13/19 documented as of this encounter
--- OUTSIDE RECORDS SUMMARY | 2024-09-21 01:20 | XMS_ITS | Encounter Summary ---
Author Organization [facility] Address [address] [facility] [place] [address] [place] [address] Care Team Providers Care Tool Grinder Set Up Operator Gear Name Role Phone Frieda Wasserman MD Primary Care Provider Unavailab le Keiry Rucker PIE FILLING MIXER Unavailable [phone] Encounter Details Date Type Department Care Team (Latest Contact Info) Description 06/30/2018 Scan [facility] Scanned, Documents Social History Tobacco Use Types Packs/Day Years Used Date Smoking Tobacco: Never Assessed Comments Unknown Sex and Gender Information Value Date Recorded Sex Assigned at Not on file Legal Sex Female 10:25 PM CDT Gender Identity Not on file Sexual Orientation Not on file documented as of this encounter Plan of Treatment Not on file documented as of this encounter Visit Diagnoses Not on filedocumented in this encounter Care Teams Tool Grinder Set Up Operator Gear Relationship Specialty Start Date End Date Frieda Wasserman MD PCP - General INTERNAL MEDICINE 08/31/18 02/23/20 Keiry Rucker NP Consulting Physician [facility] Facility 10/04/18 04/13/19 documented as of this encounter
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
--- OUTSIDE RECORDS SUMMARY | 2024-09-21 01:20 | XMS_ITS | Encounter Summary ---
Author Organization [facility] Address [address] [facility] [place] [address] [place] [address] Care Team Providers Care Channel Marketing Program Manager Name Role Phone Frieda Wasserman MD Primary Care Provider Unavailab le Encounter Details Date Type Department Care Team (Late st Contact Info) Description 09/13/2018 Orders Only [facility] Medical Group Priority Care - [address] [place] [address] Frieda Wasserman MD Social History [...] Associated Diagnosis Comments COMPREHENSIVE METABOLIC PANEL Routine 09/13/2018 12:14 PM ALLOCATIONS CLERK LIPID PANEL Routine 09/13/2018 12:14 PM ALLOCATIONS CLERK LIPOPROTEIN, LDL CHOL, DIRECT Routine 09/13/2018 12:14 PM ALLOCATIONS CLERK CBC W/DIFF AUTOMATED Routine 09/13/2018 12:14 PM ALLOCATIONS CLERK documented in this encounter Results * LIPOPROTEIN, LDL CHOL, DIRECT (09/13/2018 12:14 PM ALLOCATIONS CLERK) DIRECT LDL 61 <100 MG/DL [facility] Comment: LDL OPTIMAL ?<100 LDL NEAR OPTIMAL ? 100-129 LDL BORDERLINE HIGH ??130-159 LDL HIGH ? 160-189 LDL VERY HIGH ?>=190 09/13/2018 12:1 4 PM ALLOCATIONS CLERK 09/13/2018 12:15 PM ALLOCATIONS CLERK us Frieda Wassreman MD LABORATORY Final Result [facility] [address] [place] [address], * (ABNORMAL) LIPID PANEL (09/13/2018 12:14 PM ALLOCATIONS CLERK) CHOLESTEROL 164 <200.0 MG/DL [facility] TRIGLYCERIDES 602(H) <150 MG/DL [facility] Comment:REFLEXED DIRECT LDL DUE TO TRIG >400. HDL 29(L) >40.0 MG/DL [facility] LDL (CALCULATED) NOT CALCULATED <100 MG/DL [facility] Comment:TRIGLYCERIDE >400 IN VALIDATES FRACTIONATION. NON HDL CHOLESTEROL 135(H) <130 MG/DL [facility] CHOL/HDL RATIO 5.7(H) 0.0 - 4.5 [facility] VLDL CALCULATION NOT CALCULATED 5 - 55 MG/DL [facility] Comment:TRIGLYCERIDE >400 IN VALIDATES FRACTIONATION. LIPID INTERPRETATION [facility] Comment: NIH CONCENSUS REPORT RECOMMENDATIONS: ?ADULT ?CHILD ??LOW RISK: ?CHOLESTEROL ? <200 ? <170 ?TRIGLYCERIDE ?<150 ?--- ?HDL ? >=60 ?--- ?LDL ? <100 ? <110 ??BORDERLINE: ?CHOLESTEROL ? 200-239 ?? 170-199 ?TRIGLYCERIDE ?150-199 ? --- ?HDL ?40-59 ?--- ?LDL ? 100-159 ?? 110-129 ??HIGH RISK: ?CHOLESTEROL ? >=240 ?>=200 ?TRIGLYCERIDE ?>=200 ? --- ?HDL ?<40 ?--- ?LDL ? >=160 ?>=130 09/13/2018 12:1 4 PM ALLOCATIONS CLERK 09/13/2018 12:15 PM ALLOCATIONS CLERK us Frieda Wasserman MD LABORATORY Edited Result - Final [facility] [address] [place] [address], * (ABNORMAL) COMPREHENSIVE METABOLIC PANEL (09/13/2018 12:14 PM ALLOCATIONS CLERK) GLUCOSE 217(H) 70 - 99 MG/DL [facility] BUN 20(H) 7 - 18 MG/DL [facility] CREATININE S/P/B 1.21(H) 0.55 - 1.02 MG/DL [facility] SODIUM S/P/B 142 136 - 145 MMOL/L [facility] POTASSIUM S/P/B 4.4 3.5 - 5.1 MMOL/L [facility] CHLORIDE S/P/B 107 100 - 108 MMOL/L [facility] CO2 23.1 21 - 32 MMOL/L [facility] CALCIUM S/P/B 9.3 8.5 - 10.1 MG/DL [facility] BILIRUBIN TOTAL S/P/B 0.2 0.2 - 1.2 MG/DL [facility] TOTAL PROTEIN S/P/B 6.7 6.4 - 8.2 G/DL [facility] ALBUMIN S/P/B 3.1(L) 3.4 - 5.0 G/DL [facility] AST 27 15 - 37 U/L [facility] ALT 29 14 - 55 U/L [facility] ALKALINE PHOSPHATASE S/P/B 80 50 - 136 U/L [facility] ANION GAP 16.3 8 - 20 MMOL/L [facility] BUN CREATININE RATIO 16.5 6 - 26 [facility] A/G RATIO 0.9(L) 1.0 - 2.0 RATIO [facility] EGFR NON-AFR. AMER. 43(L) >90 ML/MIN/1.7 3 M2 [facility] EGFR AFR. AMER. 50(L) >90 ML/MIN/1.7 3 M2 [facility] Comment: NOTE: eGFR is not calculated for patients <18 years of age. This is an estimated GFR (CKD EPI) and should not be used for calculating drug doses. 09/13/2018 12:1 4 PM ALLOCATIONS CLERK 09/13/2018 12:15 PM ALLOCATIONS CLERK us Frieda Wasserman MD LABORATORY Final Result [facility] [address] [place] [address], * (ABNORMAL) CBC W/DIFF AUTOMATED (09/13/2018 12:14 PM ALLOCATIONS CLERK) WBC 4.3(L) 4.4 - 11.0 x10'3/uL [facility] RBC 4.50 4.50 - 5.10 x10'6/uL [facility] HGB 13.6 12.3 - 15.3 G/DL [facility] HCT 42.7 35.9 - 44.6 % [facility] MCV 94.9 80.0 - 96.0 FL [facility] MCH 30.2 25.3 - 30.9 PG [facility] MCHC 31.9 31.0 - 34.1 G/DL [facility] RDW 14.3 12.4 - 15.1 % [facility] PLT 174 151 - 353 x10'3/uL [facility] MPV 10.6 9.6 - 12.0 FL [facility] RBC MORPHOLOGY NORMAL MAN [facility] PLT MORPH. NORMAL [facility] WBC MORPHOLOGY NORMAL MAN [facility] LYMPHOCYTES % 23.8 15.8 - 45.0 % [facility] NEUTROPHILS % 65.5 42.1 - 71.9 % [facility] MONOCYTES % 7.2 5.7 - 12.5 % [facility] EOSINOPHILS 2.8 0.0 - 5.6 % [facility] BASOPHILS 0.5 0.0 - 1.3 % [facility] ABS. NEUTROPHILS TOTAL 2.84 1.40 - 6.00 x10'3/uL [facility] IMMATURE GRANS % 0.2 0.0 - 0.5 % [facility] ABS. LYMPHOCYTES 1.03 0.80 - 4.70 x10'3/uL [facility] 09/13/2018 12:1 4 PM ALLOCATIONS CLERK 09/13/2018 12:15 PM ALLOCATIONS CLERK Frieda Wasserman MD LABORATORY Edited Result - Final [facility] [address] [place] [address], documented in this encounter Visit Diagnoses Not on filedocumented in this encounter Care Teams Channel Marketing Program Manager Relationship Specialty Start Date End Date Frieda Wasserman MD PCP - General INTERNAL MEDICINE 08/31/18 02/23/20 documented as of this encounter
--- OUTSIDE RECORDS SUMMARY | 2024-09-21 01:20 | XMS_ITS | Encounter Summary ---
Author Organization [facility] Address [address] [facility] [place] [address] [place] [address] Care Team Providers Care Alcoholism Worker Name Role Phone Unavailable Primary Care Provider Unavailabl e Encounter Details Date Type Department Care Team (Latest Contact Info) Description 05/07/2018 Abstract [facility] Medical Group , Generic Conversion, Social History Tobacco Use Types Packs/Day Years [...]
--- OUTSIDE RECORDS SUMMARY | 2024-09-21 01:20 | XMS_ITS | Encounter Summary ---
Author Organization [facility] Address [address] [facility] [place] [address] [place] [address] Care Team Providers Care Ramp Supervisor Name Role Phone Frieda Wasserman MD Primary Care Provider Unavailab Keiry Salazar CRYPTOLOGIC SUPPORT SPECIALIST Unavailable [phone] Reason for Visit * Reason Onset Date Comments Orders 01/28/2019 Encounter Details Date Type Department Care Team (Late st Contact Info) Description 01/28/2019 MINE PROMOTOR ONLY [facility] [address] [place] [address] Jayesh Lara, DO [address] [id number] Orders Social History Tobacco Use Types Packs/Day Years Used Date Smoking Tobacco: Unknown Comments Unknown Sex and Gender Information Value Date Recorded Sex Assigned at Not on file Legal Sex Female 10:25 PM CDT Gender Identity Not on file Sexual Orientation Not on file documented as of this encounter Progress Notes * Dorothy Kwong - 01/28/2019 2:37 PM CDT Pharmacy faxed: Ms. [place] had a Lipid panel drawn on 09/13/18 which showed an elevated triglyceride level of 602 (normal range <150). She has a history of high triglyceride levels. She is currently being treated Fenofibrate and Welchol. Please evaluate if additional therapy is needed to help lower this level as it is very elevated. Orders: Dc above meds. Lipitor 20 mg daily. Nutrition consult for low fat diet. Follow up in 8 weeks. documented in this encounter Plan of Treatment Not on file documented as of this encounter Visit Diagnoses Not on filedocumented in this encounter Care Teams Ramp Supervisor Relationship Specialty Start Date End Date Frieda Wasserman MD PCP - General INTERNAL MEDICINE 08/31/18 02/23/20 Keiry Rucker NP Consulting Physician Group Home Facility 10/04/18 04/13/19 documented as of this encounter
--- OUTSIDE RECORDS SUMMARY | 2024-09-21 01:20 | XMS_ITS | Encounter Summary ---
Author Organization [facility] Address [facility] [facility] [place] [address] [place] [address] Care Team Providers Care Cut Lace Machine Operator Name Role Phone Frieda Wasserman MD Primary Care Provider Unavailab Keiry Salazar LICENSED OPTICAL DISPENSER Unavailable [phone] Yolanda Dorsey LICENSED OPTICAL DISPENSER Unavailable Jayesh Lara DO Primary Care Provider [phone] Chris Higgins MD Primary Care Provider [phone] Giovanna Buck LICENSED OPTICAL DISPENSER Unavailable Jyaesh Lara DO Unavailable None, Provider Primary Care Provider Unavaila ble Encounter Details Date Type Department Care Team (Latest Contact Info) Description 08/03/2018 Abstract [facility] Medical Group Adam Oleary MD Social History Tobacco Use Types Packs/Day [...] Rule Out 07/30/2020 07/30/2020 07/31/2020 10:35 PM DEVELOPMENT TEAM LEAD documented as of this encounter Care Teams Cut Lace Machine Operator Relationship Specialty Start Date End Date Frieda Wasserman MD PCP - General INTERNAL MEDICINE 08/31/18 02/23/20 Jayesh Lara DO PCP - General INTERNAL MEDICINE 02/24/20 12/12/20 Chris Higgins MD PCP - General HOSPITALIST 12/13/20 01/23/21 None, Provider, PCP - General 06/24/22 Keiry Rucker NP Consulting Physician [facility] 10/04/18 04/13/19 Yolanda Dorsey NP Nurse Practitioner Nurse Practitioner [facility] 02/24/20 01/23/21 Giovanna Buck NP Nurse Practitioner NURSE PRACTITIONER 12/13/20 01/23/21 Jayesh Lara DO Consulting Physician INTERNAL MEDICINE 12/13/20 1 documented as of this encounter
--- OUTSIDE RECORDS SUMMARY | 2024-09-21 01:20 | XMS_ITS | Encounter Summary ---
Author Organization [facility] Address On license of [facility] [facility] [place] [address] [place] [address] Care Team Providers Care Fashion Director Name Role Phone Unavailable Primary Care Provider Unavailabl e Encounter Details Date Type Department Care Team (Late st Contact Info) Description 03/16/2018 Abstract [facility] Medical Group Family & Internal Medicine - [place] [address] [place] [address] Frieda Wasserman MD Social History Tobacco Use [...] Sign Reading Time Taken Comments Blood Pressure 114/74 03/16/2018 3:45 PM CDT Pulse 70 03/16/2018 3:45 PM CDT Temperature - - Respiratory Rate - - Oxygen Saturation - - Inhaled Oxygen Concentration - - Weight 71.8 kg (158 lb 6.1 oz) 03/16/2018 3:45 P M CDT Height 167.6 cm (5' 6 ) 03/16/2018 3:45 PM CDT Body Mass Index 25.56 03/16/2018 3:45 PM CDT documented in this encounter Progress Notes * Frieda Wasserman MD - 03/16/2018 11:40 AM CDT Chief Complaint custodial visit, routine follow up History of Present Illness HPI Free Text: Emelina is being seen for routine follow up of multiple medical issues . Denies any issues Dementia: stable complete care, advanced dementia. requires feeding HTN BP has been stable DMII on metformin. controlled MS. non weight bearing Pressure ulcer resolved. SWM on standby Recent labs stable Review of Systems Difficult to assess ROS due to mental status but per staff Constitutional: no fever and no chills. ENT: no nasal congestion. Cardiovascular: no chest pain. Respiratory: no shortness of breath. Gastrointestinal: no abdominal pain, no nausea and no vomiting. Neurological confusion and difficulty walking. Active Problems 1. Abrasion or friction burn of other, multiple, and unspecified sites (919.0) 2. Bowel incontinence (787.60) (R15.9) 3. Choking episode (784.99) (R09.89) 4. Decubitus ulcer of buttock, stage 2 (707.05,707.22) (L89.302) 5. Dementia (294.20) (F03.90) 6. 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 Generalized multiple sclerosis (340) (G35) 8. Hyperlipidemia (272.4) (E78.5) 9. Hypertension (401.9) (I10) 10. Impaired weight bearing (V49.89) (R26.89) 11. Insomnia (780.52) (G47.00) 12. Mild vitamin D deficiency (268.9) (E55.9) 13. Open wound of toe with complication (893.1) (S91.109A) ?? medial toe Great toe. 14. Overgrown toenails (703.8) (L60.2) 15. Red eyes (379.93) (H57.8) 16. Toe injury (959.7) (S99.929A) 17. Unintended weight loss (783.21) (R63.4) 18. Urinary incontinence (788.30) (R32) Past Medical History [...] 1 tablet twice daily; Therapy: 24Mar2013 to (Evaluate:02Mxn6879) Recorded 7. Fenofibrate Micronized 200 MG Oral Capsule; TAKE 1 CAPSULE Daily; Therapy: 06Oct2017 to Recorded 8. Florastor 250 MG Oral Capsule; TAKE 1 CAPSULE TWICE DAILY; Therapy: (Recorded:29Dec2017) to Recorded 9. Lisinopril 20 MG Oral Tablet; TAKE 1 TABLET BY MOUTH EVERY DAY; Therapy: 11Mar2013 to (Evaluate:[id number]) Recorded 10. Loratadine 10 MG Oral Tablet; TAKE 1 TABLET DAILY; Therapy: 06Oct2017 to Recorded 11. Lyrica 150 MG Oral Capsule; Take one capsule by mouth every morning and at bedtime; Therapy: 10Qyh2549 to (Evaluate:71Zjy9077); Last Rx:[id number] Ordered 12. Magnesium 27 500 (27 Mg) MG Oral Tablet; Take 1 tablet twice daily; Therapy: 06Oct2017 to Recorded 13. MetFORMIN HCl - 500 MG Oral Tablet; TAKE 1 TABLET TWICE DAILY; Therapy: 09Jul2013 to Recorded 14. Metoprolol Tartrate 25 MG [...] 06Oct2017 to Recorded 21. Vitamin D (Ergocalciferol) 08126 UNIT Oral Capsule; TAKE 1 CAPSULE Weekly; Therapy: 29Dec2017 to Recorded Allergies 1. Flagyl CAPS Vitals Recorded: 16Mar2018 03:45PM Temperature 97.7 F Heart Rate 70 Respiration 16 Systolic 114 Diastolic 74 Height 5 ft 6 in Weight 158 lb 6 oz BMI Calculated 25.56 BSA Calculated 1.81 Physical Exam Constitutional General appearance: No acute distress, well appearing and well nourished. appears older then age, in wheelchair.. Eyes Conjunctiva and lids: No swelling, erythema or discharge. Ears, Nose, Mouth, and Throat Oropharynx: Normal with no erythema, edema, exudate or lesions. Pulmonary Respiratory effort: No increased work of breathing or signs of respiratory distress. Auscultation of lungs: Clear to auscultation. Cardiovascular Auscultation of heart: Normal rate and rhythm, normal S1 and S2, without murmurs. Examination of extremities for edema and/or varicosities: Normal. Abdomen Abdomen: Non-tender, no masses. Musculoskeletal Gait and station: Abnormal. wheelchair. Digits and nails: Normal without clubbing or cyanosis. Psychiatric Orientation to person, place, and time: Abnormal. oriented to self. Mood and affect: Normal. Assessment 1. 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 Dementia (294.20) (F03.90) 3. Hypertension (401.9) (I10) Stable Plan Con't current plan of care Labs and meds reviewed RTC monthly or sooner if needed Signatures Electronically signed by : Frieda Wasserman M.D.; Mar 19 2018 2:02PM LEAD SPRINKLER (Author) documented in this encounter Plan of Treatment Not on file documented as of this encounter Visit Diagnoses Not on filedocumented in this encounter
--- OUTSIDE RECORDS SUMMARY | 2024-09-21 01:20 | XMS_ITS | Encounter Summary ---
Author Organization [facility] Address [address] [place] [address] [place] [address] Care Team Providers Care Firearms Expert Name Role Phone Frieda Wasserman MD Primary Care Provider Unavailab Keiry Salazar STEELSCOPE OPERATOR Unavailable Encounter Details Date Type Department Care Team (Late st Contact Info) Description 01/04/2019 Orders Only [facility] Priority Care - [address] [place] [address] Frieda Wasserman MD Social History [...] Procedure Name Priority Date/Time Associated Diagnosis Comments VITAMIN B-12 Routine 01/04/2019 9:43 AM CDT VITAMIN D, 25 OH Routine 01/04/2019 9:43 AM CDT documented in this encounter Results * (ABNORMAL) VITAMIN D, 25 OH (01/04/2019 9:43 AM CDT) VITAMIN D 25 HYDROXY S/P/B 18(L) 30 - 100 NG/ML [facility] Comment: ? INTERPRETATION ? DEFICIENT ??<20 ? INSUFFICIENT 20-29 ?SUFFICIENT 30-100 01/04/2019 9:43 AM CDT 01/04/2019 9:44 AM CDT Frieda Wasserman MD LABORATORY Final Result [facility] [address] [place] [address], [place] [phone] * VITAMIN B-12 (01/04/2019 9:43 AM CDT) VITAMIN B12 S/P/B 712 193 - 986 PG/ML [facility] 01/04/2019 9:43 AM CDT 01/04/2019 9:44 AM CDT Frieda Wasserman MD LABORATORY Final Result Performing Organization Address City/[facility]/ZIP Co de Phone Number [facility] [address] [place] [address], [place] [phone] documented in this encounter Visit Diagnoses Not on filedocumented in this encounter Care Teams Firearms Expert Relationship Specialty Start Date End Date Frieda Wasserman MD PCP - General INTERNAL MEDICINE 08/31/18 02/23/20 Keiry Rucker NP Consulting Physician [facility] 10/04/18 04/13/19 documented as of this encounter
--- OUTSIDE RECORDS SUMMARY | 2024-09-21 01:20 | XMS_ITS | Encounter Summary ---
Author Organization [facility] Address [address] [place] [address] [place] [address] Care Team Providers Care Story Editor Name Role Phone Beni Cevallos MD Primary Care Provider Unavailab le Reason for Visit * Reason Comments Jail routine follow up Encounter Details Date Type Department Care Team (Late st Contact Info) Description 08/31/2018 9:00 AM [facility] Jail [facility] Family & Internal Medicine [address] [address] Beni Cevallos MD Jail (routine follow up ) Social History Tobacco [...] Sign Reading Time Taken Comments Blood Pressure 124/56 08/31/2018 3:28 PM [facility] Pulse 66 08/31/2018 3:28 PM [facility] Temperature 36.8 ??C (98.3 ??F) 08/31/2018 3:28 PM CS T Respiratory Rate 20 08/31/2018 3:28 PM [facility] Oxygen Saturation - - Inhaled Oxygen Concentration - - Weight 70.8 kg (156 lb) 08/31/2018 3:28 PM [facility] Height 167.6 cm (5' 6 ) 08/31/2018 3:28 PM [facility] Body Mass Index 25.18 08/31/2018 3:28 PM LAB[facility] documented in this encounter Progress Notes * Beni Cevallos MD - 08/31/2018 9:00 AM CST Reason for Visit: Jail (routine follow up ) History of Present Illness: ALISHA Tarango is being seen for routine follow up of multiple medical issues at [facility].?? Dementia: stable complete care, advanced dementia. requires feeding ?? HTN BP has been stable DMII A1c 7 in Apr. Just on low dose glimepiride now?? MS. non weight bearing uses gabriel lift ?? Pressure ulcer Swm bottom still with issues, trying different treatment, laying down after meals difficult to heal ROS: Review of Systems Constitutional: Negative for chills, fever and malaise/fatigue. Respiratory: Negative for cough and shortness of breath. Cardiovascular: Negative for chest pain and leg swelling. Gastrointestinal: Negative for abdominal pain, constipation, diarrhea and nausea. Neurological: Positive for speech change and focal weakness. Negative for dizziness. Psychiatric/Behavioral: Positive for memory loss. Negative for depression. Medications: Current Outpatient Medications: ??? amlodipine 10 MG tablet, Take 1 tablet by mouth daily., Disp: , Rfl: ??? aspirin 81 MG chewable tablet, Chew 1 tablet by mouth daily., Disp: , Rfl: ??? donepezil 10 MG Tab, Take 1 tablet by mouth 2 (two) times daily., Disp: , Rfl: ??? Fenofibrate Micronized 200 MG Cap capsule, Take 1 capsule by mouth daily., Disp: , Rfl: ??? glimepiride 1 MG tablet, Take 0.5 tablets by mouth daily., Disp: , Rfl: ??? lisinopril 20 MG tablet, Take 1 tablet by mouth daily., Disp: , Rfl: ??? loratadine 10 MG tablet, Take 1 tablet by mouth daily., Disp: , Rfl: ??? Magnesium Gluconate (MAGNESIUM 27) 500 (27 Mg) MG Tab, Take 1 tablet by mouth 2 (two) times daily., Disp: , Rfl: ??? memantine ER (NAMENDA XR) 28 MG 24 hr capsule, Take 1 capsule by mouth daily., Disp: , Rfl: ??? Multiple Vitamin (THERA-MILL) Tab, Take 1 tablet by mouth daily., Disp: , Rfl: ??? potassium chloride CR 10 MEQ tablet, Take 2 tablets by mouth daily., Disp: , Rfl: ??? vitamin D2, ergocalciferol, 59037 UNITS capsule, Take 1 capsule by mouth once a week., Disp: , Rfl: ??? cyanocobalamin 1000 MCG/ML injection, 1 mL., Disp: , Rfl: ??? docusate sodium (COLACE) 100 MG capsule, Take 1 capsule by mouth 2 (two) times daily., Disp: , Rfl: ??? guaifenesin (SILTUSSIN SA) 100 MG/5ML syrup, Take 5 mLs by mouth every 4 (four) hours as needed., Disp: , Rfl: ??? magnesium hydroxide 400 MG/5ML suspension, Take 30 mLs by mouth daily as needed., Disp: , Rfl: ??? metoprolol tartrate 25 MG tablet, Take by mouth 2 (two) times daily., Disp: , Rfl: ??? polyethylene glycol (MIRALAX) powder, Take by mouth daily., Disp: , Rfl: ??? polyvinyl alcohol 1.4 % ophthalmic solution, Apply 1 drop to eye 3 (three) times daily., Disp: , Rfl: ??? saccharomyces boulardii (FLORASTOR) 250 MG capsule, Take 1 capsule by mouth 2 (two) times daily., Disp: , Rfl: Allergies Allergen Reactions ??? Metronidazole Unknown Past Medical History: Diagnosis Date ??? Chronic indwelling Zhang catheter History reviewed. No pertinent surgical history. Social History Socioeconomic History ??? Marital status: Not on file Spouse name: Not on file ??? Number of children: Not on file ??? Years of education: Not on file ??? Highest education level: Not on file Social Needs ??? Financial resource strain: Not on file ??? Food insecurity - worry: Not on file ??? Food insecurity - inability: Not on file ??? Transportation needs - medical: Not on file ??? Transportation needs - non-medical: Not on file Occupational History ??? Not on file Tobacco Use ??? Smoking status: Unknown If Ever Smoked Substance and Sexual Activity ??? Alcohol use: Not on file ??? Drug use: Not on file ??? Sexual activity: Not on file Other Topics Concern ??? Not on file Social History Narrative ??? Not on file Family History Family history unknown: Yes No family status information on file. Filed Vitals: 08/31/18 1528 BP: 124/56 Pulse: 66 Resp: 20 Temp: 98.3 ??F (36.8 ??C) Weight: 70.8 kg (156 lb) Height: 5' 6 (1.676 m) Physical [...] is disoriented. Gait (gabriel lift, wheelchair) abnormal. Psychiatric: She has a normal mood and affect. Her behavior is normal. Cognition and memory are impaired. She is noncommunicative. She exhibits abnormal recent memory and abnormal remote memory. Diagnoses/Impression: Emelina was seen today for jail. Diagnoses and all orders for this visit: Generalized multiple sclerosis (HCC) Type 2 diabetes mellitus with diabetic polyneuropathy, without long-term current use of insulin ([facility]) Late onset Alzheimer's disease without behavioral disturbance Stable on current regimen. Wound care per [facility] and wound nurse Recommendations and Plan: Con't current plan of care Labs and meds reviewed RTC monthly or sooner if needed BENI CEVALLOS MD RER [facility] documented in this encounter Plan of Treatment Not on file documented as of this encounter Visit Diagnoses Diagnosis Generalized multiple sclerosis (CMS/HCC HHS/HCC)- Primary Multiple sclerosis Type 2 diabetes mellitus with diabetic polyneuropathy, without long-term current use of insulin (CMS/HCC HHS/HCC) Late onset Alzheimer's disease without behavioral disturbance (CMS/HCC HHS/HCC) Pressure injury of coccygeal region, stage 2 ([facility]) documented in this encounter Care Teams Story Editor Relationship Specialty Start Date End Date Beni Cevallos MD PCP - General INTERNAL MEDICINE 08/31/18 02/23/20 documented as of this encounter
--- OUTSIDE RECORDS SUMMARY | 2024-09-21 01:20 | XMS_ITS | Encounter Summary ---
Author Organization [facility] Address [facility] [place] [address] [place] [address] Care Team Providers Care Hand Coke Drawer Name Role Phone Frieda Wasserman MD Primary Care Provider Unavailab Keiry Salazar SHOE CEMENTER Unavailable [phone] Reason for Visit * Reason Comments Office Documentation (SCAN)* [facility]- FAX SHEET WITH MESSAGE Encounter Details Date Type Department Care Team (Late Contact Info) Description 12/04/2018 Scan HEALTH INFO SRVCS Scanned, Documents Office Documentation (SCAN)* ([facility]- FAX SHEET WITH MESSAGE) Social History Tobacco Use Types Packs/Day Years [...] filedocumented in this encounter Care Teams Hand Coke Drawer Relationship Specialty Start Date End Date Frieda Wasserman MD PCP - General INTERNAL MEDICINE 08/31/18 02/23/20 Keiry Rucker NP Consulting Physician [facility] 10/04/18 04/13/19 documented as of this encounter
--- OUTSIDE RECORDS SUMMARY | 2024-09-21 01:20 | XMS_ITS | Encounter Summary ---
Author Organization [facility] Address [address] [place] [address] [place] [address] Care Team Providers Care Hoop Maker Helper Machine Name Role Phone Unavailable Primary Care Provider Unavailabl e Encounter Details Date Type Department Care Team (Latest Contact Info) Description 03/17/2018 Abstract [facility] Social History Tobacco Use Types Packs/Day Years [...]
--- OUTSIDE RECORDS SUMMARY | 2024-09-21 01:20 | XMS_ITS | Encounter Summary ---
Author Organization [facility] Address [address] [place] [address] [place] [address] Care Team Providers Care Aircraft Engine Dismantler Name Role Phone Frieda Wasserman MD Primary Care Provider Unavailab le Keiry Rucker COUNTRY PRINTER APPRENTICE Unavailable Encounter Details Date Type Department Care Team (Late st Contact Info) Description 02/07/2019 Orders Only [facility] [address] [place] [id number] Ronel Hoang, RN Social History Tobacco Use [...] on filedocumented in this encounter Care Teams Aircraft Engine Dismantler Relationship Specialty Start Date End Date Frieda Wasserman MD PCP - General INTERNAL MEDICINE 08/31/18 02/23/20 Keiry Rucker NP Consulting Physician Group Home Facility 10/04/18 04/13/19 documented as of this encounter
--- OUTSIDE RECORDS SUMMARY | 2024-09-21 01:20 | XMS_ITS | Encounter Summary ---
Author Organization [facility] Address [address] [place] [address] [place] [address] Care Team Providers Care Assembler Steam And Gas Turbine Name Role Phone Frieda Wasserman MD Primary Care Provider Unavailab Keiry Salazar RING MAKER Unavailable [phone] Encounter Details Date Type Department Care Team (Late st Contact Info) Description 02/08/2019 Orders Only [facility] Priority Care - [address] [place] [address] Frieda Wasserman MD Social History [...] CDT) ESR 29(H) 0 - 20 MM/HR [facility] 02/08/2019 10:1 2 AM CDT 02/08/2019 10:13 AM CDT Frieda Wasserman MD LABORATORY Final Result [facility] [address] [place] [address], * (ABNORMAL) CBC W/DIFF AUTOMATED (02/08/2019 10:12 AM CDT) Pathologist [facility] WBC 4.5 4.4 - 11.0 x10'3/uL [facility] RBC 4.95 4.50 - 5.10 x10'6/uL [facility] HGB 14.5 12.3 - 15.3 G/DL [facility] HCT 45.0(H) 35.9 - 44.6 % [facility] MCV 90.9 80.0 - 96.0 FL [facility] MCH 29.3 25.3 - 30.9 PG [facility] MCHC 32.2 31.0 - 34.1 G/DL [facility] RDW 14.1 12.4 - 15.1 % [facility] PLT 185 151 - 353 x10'3/uL [facility] MPV 10.3 9.6 - 12.0 FL [facility] RBC MORPHOLOGY [facility] PLT MORPH. NORMAL [facility] WBC MORPHOLOGY [facility] LYMPHOCYTES % 22.5 15.8 - 45.0 % [facility] NEUTROPHILS % 68.4 42.1 - 71.9 % [facility] MONOCYTES % 6.9 5.7 - 12.5 % [facility] EOSINOPHILS 1.8 0.0 - 5.6 % [facility] BASOPHILS 0.2 0.0 - 1.3 % [facility] ABS. NEUTROPHILS TOTAL 3.07 1.40 - 6.00 x10'3/uL [facility] IMMATURE GRANS % 0.2 0.0 - 0.5 % [facility] ABS. LYMPHOCYTES 1.01 0.80 - 4.70 x10'3/uL [facility] 02/08/2019 10:1 2 AM CDT 02/08/2019 10:13 AM CDT us Frieda Wasserman MD LABORATORY Edited Result - Final [facility] [address] [place] [id number], documented in this encounter Visit Diagnoses Not on filedocumented in this encounter Care Teams Assembler Steam And Gas Turbine Relationship Specialty Start Date End Date Frieda Wasserman MD PCP - General INTERNAL MEDICINE 08/31/18 02/23/20 Keiry Rucker NP Consulting Physician [facility] 10/04/18 04/13/19 documented as of this encounter
--- OUTSIDE RECORDS SUMMARY | 2024-09-21 01:20 | XMS_ITS | Encounter Summary ---
Author Organization [facility] Address [address] [place] [address] [place] [address] Care Team Providers Care Photographic Equipment Assembler Name Role Phone Frieda Wasserman MD Primary Care Provider Unavailab Keiry Salazar MAILING SECTION CLERK Unavailable Encounter Details Date Type Department Care Team (Latest Contact Info) Description 09/13/2018 Scan HEALTH INFO SRVCS Scanned, Documents Social [...] on filedocumented in this encounter Care Teams Photographic Equipment Assembler Relationship Specialty Start Date End Date Frieda Wasserman MD PCP - General INTERNAL MEDICINE 08/31/18 02/23/20 Keiry Rucker NP Consulting Physician [facility] 10/04/18 04/13/19 documented as of this encounter
--- OUTSIDE RECORDS SUMMARY | 2024-09-21 01:20 | XMS_ITS | Encounter Summary ---
Author Organization [facility] Address [facility] [facility] [place] [address] [place] [address] Care Team Providers Care Fine Grader Name Role Phone Unavailable Primary Care Provider Unavailabl e Encounter Details Date Type Department Care Team (Latest Contact Info) Description 05/11/2018 Abstract [facility] Group Frieda Wasserman MD Social History Tobacco Use [...] Sign Reading Time Taken Comments Blood Pressure 111/63 05/11/2018 3:33 PM CDT Pulse 80 05/11/2018 3:33 PM CDT Temperature - - Respiratory Rate - - Oxygen Saturation - - Inhaled Oxygen Concentration - - Weight 72.2 kg (159 lb 2.1 oz) 05/11/2018 3:33 P M CDT Height 167.6 cm (5' 6 ) 05/11/2018 3:33 PM CDT Body Mass Index 25.68 05/11/2018 3:33 PM CDT documented in this encounter Progress Notes * Frieda Wasserman MD - 05/11/2018 2:20 PM CDT Chief Complaint Here for [facility] visit, routine History of Present Illness HPI Free Text: Emelina is being seen for routine follow up of multiple medical issues . Denies any issues Dementia: stable complete care, advanced dementia. requires feeding HTN BP has been stable DMII running 108 -146 metformin d/c 04/14 A1c was 7.0 so decreased glimeperide to 0.5mg MS. non weight bearing Pressure ulcer Swm seeing slowly improving Review of Systems Difficult to assess ROS due to mental status but per staff Constitutional: no fever and no chills. ENT: no nasal congestion. Cardiovascular: no chest pain. Respiratory: no shortness of breath. Gastrointestinal: no abdominal pain, no nausea and no vomiting. Neurological confusion and difficulty walking. Constitutional: no fever and no chills. ENT: [...] with neurological manifestations, uncontrolled (250.62) (E11.49,E11.65) 7. Diarrhea (787.91) (R19.7) 8. 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 Generalized multiple sclerosis (340) (G35) 10. Hyperlipidemia (272.4) (E78.5) 11. Hypertension (401.9) (I10) 12. Impaired weight bearing (V49.89) (R26.89) 13. Insomnia (780.52) (G47.00) 14. Mild vitamin D deficiency (268.9) (E55.9) 15. Open wound of toe with complication (893.1) (S91.109A) ?? medial toe Great toe. 16. Overgrown toenails (703.8) (L60.2) 17. Red eyes (379.93) (H57.8) 18. Toe injury (959.7) (S99.926T) 19. Unintended weight loss (783.21) (R63.4) 20. Urinary incontinence (788.30) (R32) Past Medical History [...] 1 tablet twice daily; Therapy: 24Mar2013 to (Evaluate:55Ffl8773) Recorded 7. Fenofibrate Micronized 200 MG Oral Capsule; TAKE 1 CAPSULE Daily; Therapy: 06Oct2017 to Recorded 8. Florastor 250 MG Oral Capsule; TAKE 1 CAPSULE TWICE DAILY; Therapy: (Recorded:29Dec2017) to Recorded 9. Glimepiride 1 MG Oral Tablet; TAKE 0.5 TABLET Daily; Therapy: 70Oxa8094 to (Evaluate:70Eod2633) Recorded 10. Lisinopril 20 MG Oral Tablet; TAKE 1 TABLET BY MOUTH EVERY DAY; Therapy: 36Ljg5635 to (Evaluate:86Xdq4835) Recorded 11. Loratadine 10 MG Oral Tablet; TAKE 1 TABLET DAILY; Therapy: 06Oct2017 to Recorded 12. Lyrica 150 MG Oral Capsule; Take one capsule by mouth every morning and at bedtime; Therapy: 05You6009 to (Evaluate:27Vof0545); Last Rx:[id number] Ordered 13. Magnesium 27 500 (27 Mg) [...] 06Oct2017 to Recorded 21. Vitamin D (Ergocalciferol) 56199 UNIT Oral Capsule; TAKE 1 CAPSULE Weekly; Therapy: 29Dec2017 to Recorded Allergies 1. Flagyl CAPS Vitals Recorded: 11May2018 03:33PM Temperature 98.7 F Heart Rate 80 Respiration 16 Systolic 111 Diastolic 63 Height 5 ft 6 in Weight 159 lb 2 oz BMI Calculated 25.68 BSA Calculated 1.81 Physical Exam Constitutional General [...] oriented to self. Mood and affect: Normal. Results/Data Hemoglobin A1C ( HA1C ) 07May2018 10:57AM Frieda Wasserman Test Name Result Flag Reference Hemoglobin A1c 7.0 % H <5.7 INCREASED RISK OF DIABETES <5.7% NON-DIABETES 5.7-6.4% INCREASED RISK FOR FUTURE DIABETES > OR = 6.5 CONSISTENT WITH DIABETES STANDARDS OF MEDICAL CARE IN DIABETES-2010 DIABETES CARE, 33(SUPP 1): S1-S61,2009 Assessment 1. 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 Dementia (294.20) (F03.90) 3. Hypertension (401.9) (I10) Monitor fasting blood sugars on lower dose of glimeperide Plan Con't current plan of care except as above Labs and meds reviewed RTC monthly or sooner if needed Signatures Electronically signed by : Frieda Wasserman M.D.; May 12 2018 6:16AM LAMINATE FLOOR INSTALLER (Author) documented in this encounter Plan of Treatment Not on file documented as of this encounter Visit Diagnoses Not on filedocumented in this encounter
--- OUTSIDE RECORDS SUMMARY | 2024-09-21 01:20 | XMS_ITS | Encounter Summary ---
Author Organization [facility] Address [facility] [place] [address] [place] [address] Care Team Providers Care Hide Trimmer Name Role Phone Frieda Wasserman MD Primary Care Provider Unavailab le Keiry Rucker BISQUE PLACER Unavailable [phone] Encounter Details Date Type Department Care Team (Late st Contact Info) Description 12/31/2018 [facility] [address] [place] [address] Ronel Hoang, JAH Social History [...] polyneuropathy, without long-term current use of insulin ([facility]/HCC [facility]) documented in this encounter Care Teams Hide Trimmer Relationship Specialty Start Date End Date Frieda Wasserman MD PCP - General INTERNAL MEDICINE 08/31/18 02/23/20 Keiry Rucker NP Consulting Physician [facility] Facility 10/04/18 04/13/19 documented as of this encounter
--- OUTSIDE RECORDS SUMMARY | 2024-09-21 01:20 | XMS_ITS | Encounter Summary ---
Author Organization [facility] Address [address] [address] [place] [address] Care Team Providers Care Airframe And Power Plant Mechanic Name Role Phone Frieda Wasserman MD Primary Care Provider Unavailab Keiry Salazar BENEFITS DIRECTOR Unavailable [phone] Encounter Details Date Type Department Care Team (Late st Contact Info) Description 07/15/2018 Abstract [facility] [address] [place], [place] [id number] Frieda Wasserman MD Social History Tobacco Use [...] Date/Time Associated Diagnosis Comments VITAMIN B-12 Routine 07/15/2018 9:01 AM CDT VITAMIN D, 25 OH Routine 07/15/2018 9:01 AM CDT documented in this encounter Results * (ABNORMAL) VITAMIN D, 25 OH (07/15/2018 9:01 AM CDT) VITAMIN D 25 HYDROXY S/P/B 22(L) 30 - 100 NG/ML 07/15/2018 5:[address] [facility] Comment: ?INTERPRETATION ?DEFICIENT ??<20 ? INSUFFICIENT 20-29 ?SUFFICIENT 30-100 07/15/2018 9:01 AM CDT 07/15/2018 9:02 AM CDT us Generic Conversion Md [facility] Final R esnorberto Performing Organization Address City/[facility]/ZIP Co de Phone Number [facility] [address] [place] [address], [place] [phone] * VITAMIN B-12 (07/15/2018 9:01 AM CDT) VITAMIN B12 S/P/B 710 193 - 986 PG/ML 07/15/2018 10:09 AM CDT [facility] SERUM SPECIMEN / Unknown 07/15/2018 9:01 AM CDT 07/15/2018 9:02 AM CDT us Generic Conversion Md [facility] Final R rashad Performing Organization Address City/[facility]/ZIP Co de Phone Number [facility] [address] [place] [address], [place] [phone] documented in this encounter Visit Diagnoses Diagnosis Vitamin B12 deficiency anemia due to intrinsic factor deficiency Pernicious anemia documented in this encounter Care Teams Airframe And Power Plant Mechanic Relationship Specialty Start Date End Date Frieda Wasserman MD PCP - General INTERNAL MEDICINE 08/31/18 02/23/20 Keiry Rucker NP Consulting Physician [facility] 10/04/18 04/13/19 documented as of this encounter
--- OUTSIDE RECORDS SUMMARY | 2024-09-21 01:20 | XMS_ITS | Encounter Summary ---
Author Organization [facility] Address [address] [place] [address] [place] [address] Care Team Providers Care Motorboat Operator Name Role Phone Beni Cevallos MD Primary Care Provider Unavailab Keiry Salazar PROTOTYPE SEWER Unavailable [phone] Reason for Visit * Reason Comments Senior Care Routine. Encounter Details Date Type Department Care Team (Late st Contact Info) Description 11/29/2018 11:00 AM [facility] Senior Care [facility] [address] [place] [id number] Keiry Rucker, PROTOTYPE SEWER [address] [place] [address] Senior Care (Routine. ) Social History Tobacco Use Types Packs/Day Years Used Date Smoking Tobacco: Unknown Comments Unknown Sex and Gender Information Value Date Recorded Sex Assigned at Not on file Legal Sex Female 10:25 PM CDT Gender Identity Not on file Sexual Orientation Not on file documented as of this encounter Last Filed Vital Signs Vital Sign Reading Time Taken Comments Blood Pressure 104/66 11/29/2018 3:59 PM FLYING SHEAR OPERATOR Pulse 64 11/29/2018 3:59 PM FLYING SHEAR OPERATOR Temperature 36.1 ??C (97 ??F) 11/29/2018 3:59 PM FLYING SHEAR OPERATOR Respiratory Rate 16 11/29/2018 3:59 PM FLYING SHEAR OPERATOR Oxygen Saturation - - Inhaled Oxygen Concentration - - Weight - - Height - - Body Mass Index - - documented in this encounter Progress Notes * Keiry Rucker NP - 11/29/2018 11:00 AM CST Reason for Visit: Senior Care (Routine. ) History of Present Illness: 78 y/o female. Seen today at [facility]. Seen for follow-up pre-existing medical health conditions. She is resting in bed quietly. NAD. ?? -Senile Alz Dementia: Advanced dementia on Namenda and aricept regimen. Lyrica at . ??Patient is total care. Requires assist with all aspects of care. ?? HTN: Controlled. Norvasc, Lisinopril, and Metoprolol. ?? HLD: Fenofibrate. ?? DMII: Amaryl 0.5 mg QAM. A1C 6.8%. Bun/Creat 20/1.2. Stable. ?? MS: Non weight bearing. Joana Lift. ?? ROS: Review of Systems Unable to perform ROS: Dementia Medications: Current Outpatient Medications: ??? amlodipine 10 MG tablet, Take 1 tablet by mouth daily., Disp: , Rfl: ??? aspirin 81 MG chewable tablet, Chew 1 tablet by mouth daily., Disp: , Rfl: ??? colesevelam (WELCHOL) 625 MG tablet, Take 1,875 mg by mouth 2 (two) times daily with meals., Disp: , Rfl: ??? cyanocobalamin 1000 MCG/ML injection, Inject 1 mL into the muscle monthly. , Disp: , Rfl: ??? docusate sodium (COLACE) [...] by mouth daily., Disp: , Rfl: ??? guaifenesin (SILTUSSIN SA) 100 MG/5ML syrup, Take 5 mLs by mouth every 4 (four) hours as needed., Disp: , Rfl: ??? lisinopril 10 MG [...] day., Disp: 60 capsule, Rfl: 0 ??? Magnesium Gluconate (MAGNESIUM 27) 500 (27 Mg) MG Tab, Take 1 tablet by mouth 2 (two) times daily., Disp: , Rfl: ??? magnesium hydroxide 400 MG/5ML suspension, Take 30 mLs by mouth daily as needed., Disp: , Rfl: ??? memantine ER (NAMENDA [...] Disp: , Rfl: ??? vitamin D2, ergocalciferol, 97921 UNITS capsule, Take 1 capsule by mouth once a week., Disp: , Rfl: Allergies Allergen Reactions ??? [...] file Gets together: Not on file Attends anabaptism service: Not on file Active member of [...] status information on file. Physical Exam Constitutional: No distress. HENT: Head: Atraumatic. Cardiovascular: Normal rate, regular rhythm and normal heart sounds. Pulmonary/Chest: Effort normal. No stridor. No respiratory distress. She has no wheezes. She has derek. Abdominal: Soft. Bowel sounds are normal. Musculoskeletal: Non-ambulatory Joana. Neurological: Resting Comfortably. Skin: Coccyx wound: SWM TX. Nursing note and vitals reviewed. Filed Vitals: 11/29/18 1559 BP: 104/66 Pulse: 64 Resp: 16 Temp: 97 ??F (36.1 ??C) Impression/Plan: Encounter Diagnoses Name SNOMED CT(R) Primary? 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 Type 2 diabetes mellitus with diabetic polyneuropathy, without long-term current use of insulin(CMS/HCC) TYPE 2 DIABETES MELLITUS ??? Generalized multiple sclerosis (CMS/HCC) MULTIPLE SCLEROSIS ??? Essential hypertension ESSENTIAL HYPERTENSION ??? Full incontinence of feces INCONTINENCE OF FECES ??? Pressure injury of coccygeal region, stage 2 PRESSURE ULCER OF BACK ??? Hyperlipidemia, unspecified hyperlipidemia type HYPERLIPIDEMIA -Resume current care regimen. -RTC 1 month, unless needed sooner. Keiry Rucker Referring Provider: PCP: BENI CEVALLOS MD NG SHEAR OPERATOR documented in this encounter Plan of Treatment Not on file documented as of this encounter Visit Diagnoses Diagnosis Late onset Alzheimer's disease without behavioral disturbance ([facility])- Primary Type 2 diabetes mellitus with diabetic polyneuropathy, without long-term current use of insulin ([facility]) Generalized multiple sclerosis ([facility]) Multiple sclerosis Essential hypertension Unspecified essential hypertension Full incontinence of feces Pressure injury of coccygeal region, stage 2 ([facility] HHS/HCC) Hyperlipidemia, unspecified hyperlipidemia type documented in this encounter Care Teams Motorboat Operator Relationship Specialty Start Date End Date Beni Cevallos MD PCP - General INTERNAL MEDICINE 08/31/18 02/23/20 Keiry Rucker NP Consulting Physician Alf Facility 10/04/18 04/13/19 documented as of this encounter
--- OUTSIDE RECORDS SUMMARY | 2024-09-21 01:20 | XMS_ITS | Encounter Summary ---
Author Organization [facility] Address [facility] [facility] [place] [address] [place] [address] Care Team Providers Care Disability Coordinator Name Role Phone Frieda Wasserman MD Primary Care Provider Unavailab le Keiry Rucker TANK CHARGER Unavailable [phone] Encounter Details Date Type Department Care Team (Late st Contact Info) Description 02/08/2019 Chart Prep [facility] [address] [place] [address] Jayesh Lara, [address] [address] Social History Tobacco Use Types Packs/Day Years [...] on filedocumented in this encounter Care Teams Disability Coordinator Relationship Specialty Start Date End Date Frieda Wasserman MD PCP - General INTERNAL MEDICINE 08/31/18 02/23/20 Keiry Rucker NP Consulting Physician Intermediate Facility 10/04/18 04/13/19 documented as of this encounter
--- OUTSIDE RECORDS SUMMARY | 2024-09-21 01:20 | XMS_ITS | Encounter Summary ---
Author Organization [facility] Address [address] [place] [address] [place] [address] Care Team Providers Care Sole Leveler Name Role Phone Frieda Wasserman MD Primary Care Provider Unavailab Keiry Salazar HEARING AID ASSISTANT Unavailable [phone] Reason for Visit * Reason Comments [facility] (SCAN) PHYSICIAN COMMUNICAT ION: ELDER HAS RASH RESEMBLING ALLERGIC REACTION Encounter Details Date Type Department Care Team (Late st Contact Info) Description 12/20/2018 Scan HEALTH INFO [facility] Scanned, Documents [facility] (SCAN) (PHYSICIAN COMMUNICATION: ELDER HAS RASH RESEMBLING ALLERGIC REACTION) Social History Tobacco Use Types Packs/Day Years [...] on filedocumented in this encounter Care Teams Sole Leveler Relationship Specialty Start Date End Date Frieda Wasserman MD PCP - General INTERNAL MEDICINE 08/31/18 02/23/20 Keiry Rucker NP Consulting Physician [facility] Facility 10/04/18 04/13/19 documented as of this encounter
--- OUTSIDE RECORDS SUMMARY | 2024-09-21 01:20 | XMS_ITS | Encounter Summary ---
Author Organization [facility] Address [address] [place] [address] [place] [address] Care Team Providers Care Chef Under Name Role Phone Unavailable Primary Care Provider Unavailabl e Encounter Details Date Type Department Care Team (Latest Contact Info) Description 07/15/[address] [facility] Frieda Wasserman MD Social History [...] Name Priority Date/Time Associated Diagnosis Comments VITAMIN D, 25 OH Routine 07/15/2018 9:01 AM CDT documented in this encounter Results * (ABNORMAL) VITAMIN D, 25 OH (07/15/2018 9:01 AM CDT) VITAMIN D 25 HYDROXY S/P/B 22(L) 30 - 100 NG/ML [facility] TO EPIC CONVERSION Comment: Result Comment: ?INTERPRETATION ?DEFICIENT ?? <20 ?INSUFFICIENT 20-29 ? SUFFICIENT 30-100 07/15/2018 9:01 AM CDT 07/15/2018 9:01 AM CDT Narrative [facility] TO EPIC CONVERSION - 07/15/2018 5:36 PM CDT Result Communication: No patient communication needed at this time us Frieda Wasserman MD LABORATORY Final Result [facility] TO EPIC CONVERSION documented in this encounter Visit Diagnoses Not on filedocumented in this encounter
--- OUTSIDE RECORDS SUMMARY | 2024-09-21 01:20 | XMS_ITS | Encounter Summary ---
Author Organization [facility] Address [address] [place] [address] [place] [address] Care Team Providers Care Process Control Supervisor Name Role Phone Frieda Wasserman MD Primary Care Provider Unavailab Keiry Salazar RESEARCH PHYSICIAN Unavailable [phone] Encounter Details Date Type Department Care Team (Late st Contact Info) Description 05/07/2018 Abstract [facility] [address] [place] [address] Frieda Wasserman MD Social History [...] Date/Time Associated Diagnosis Comments HEMOGLOBIN, GLYCOSYLATED Routine 05/07/2018 10:57 AM CDT documented in this encounter Results * (ABNORMAL) HEMOGLOBIN, GLYCOSYLATED (05/07/2018 10:57 AM CDT) HGB A1C 7.0(H) <5.7 % 05/07/2018 12:[address] [facility] Comment: INCREASED RISK OF DIABETES<5.7% ?NON-DIABETES5.7-6.4% INCREASED RISK FOR FUTURE DIABETES> OR = 6.5 CONSISTENT WITH DIABETES STANDARDS OF MEDICAL CARE [facility](SUPP 1): S1-S61,2009 WHOLE BLOOD SPECIMEN / Unknown 05/07/2018 10:57 AM CDT 05/07/2018 10:58 AM CDT us Generic Conversion Md [facility] Final R esult [facility] [address] [place] [address], documented in this encounter Visit Diagnoses Diagnosis Type 2 diabetes mellitus without complications (CMS/HCC HHS/HCC) Type II or unspecified type diabetes mellitus without mention of complication, not stated as uncontrolled documented in this encounter Care Teams Process Control Supervisor Relationship Specialty Start Date End Date Frieda Wasserman MD PCP - General INTERNAL MEDICINE 08/31/18 02/23/20 Keiry Rucker NP Consulting Physician [facility] Facility 10/04/18 04/13/19 documented as of this encounter
--- OUTSIDE RECORDS SUMMARY | 2024-09-21 01:20 | XMS_ITS | Encounter Summary ---
Author Organization [facility] Address [address] [place] [address] [place] [address] Care Team Providers Care Financial Assistance Advisor Name Role Phone Unavailable Primary Care Provider Unavailabl e Encounter Details Date Type Department Care Team (Latest Contact Info) Description 07/15/2018 Abstract [facility] Frieda Wasserman MD Social History [...] VITAMIN B-12 Routine 07/15/2018 9:01 AM CDT documented in this encounter Results * VITAMIN B-12 (07/15/2018 9:01 AM CDT) VITAMIN B12 S/P/B 710 193 - 986 PG/ML [facility] TO EPIC CONVERSION 07/15/2018 9:01 AM CDT 07/15/2018 9:01 AM CDT Narrative [facility] TO EPIC CONVERSION - 07/15/2018 10:09 AM CDT Result Communication: No patient communication needed at this time us Frieda Wasserman MD LABORATORY Final Result [facility] TO EPIC CONVERSION documented in this encounter Visit Diagnoses Not on filedocumented in this encounter
--- OUTSIDE RECORDS SUMMARY | 2024-09-21 01:20 | XMS_ITS | Encounter Summary ---
Author Organization [facility] Address [address] [facility] [address] [place] [place] [address] [place] [address] Care Team Providers Care Counter Pocket Trimmer Name Role Phone Unavailable Primary Care Provider Unavailabl e Encounter Details Date Type Department Care Team (Late st Contact Info) Description 02/10/2018 Abstract [facility] Family & Internal Medicine - [place] [address] [place] [address] Sosa Ellis NP Social History Tobacco Use Types Packs/Day Years Used Date Smoking Tobacco: Never Assessed Comments Unknown Sex and Gender Information Value Date Recorded Sex Assigned at Not on file Legal Sex Female 10:25 PM CDT Gender Identity Not on file Sexual Orientation Not on file documented as of this encounter Last Filed Vital Signs Vital Sign Reading Time Taken Comments Blood Pressure 108/60 02/10/2018 11:25 AM CDT Pulse 84 02/10/2018 11:25 AM CDT Temperature - - Respiratory Rate - - Oxygen Saturation - - Inhaled Oxygen Concentration - - Weight 71 kg (156 lb 8 oz) 02/10/2018 11:25 AM C DT Height 167.6 cm (5' 6 ) 02/10/2018 11:25 AM CDT Body Mass Index 25.26 02/10/2018 11:25 AM CDT documented in this encounter Progress Notes * Sosa Ellis NP - 02/10/2018 10:00 AM CDT Reason For Visit Halfway Visit Chief Complaint Routine FCS visit History of Present Illness Multiple Sclerosis (Follow-Up): The patient is being seen for follow-up of multiple sclerosis. The patient reports doing poorly. She has had no significant interval events. Interval symptoms: worsened paresthesias, worsened limb weakness, worsened limb spasticity and worsened loss of balance. Associated symptoms: no urinary retention. Medications: the patient is adherent to her medication regimen, but she denies medication side effects. Hyperlipidemia (Follow-Up): The patient states her hyperlipidemia has been poorly controlled since the last visit. Symptoms: the patient's LDL goal is 100 mg/dL. the patient's last LDL was 18 mg/dL. TG are over 300and the Ldl is too low.. The patient is due for a lipid panel. Additional History: Pt has had fenofibrate D/c and will need to restart this.. Hypertension (Follow-Up): The patient presents for follow-up of primary hypertension. The patient states she has been stable with her blood pressure control since the last visit. She has no comorbid illnesses. She has no significant interval events. Symptoms: stable impaired vision, stable dyspnea, stable chest pain, stable intermittent leg claudication and stable lower extremity edema. Associated symptoms include no headache, no focal neurologic deficits and no memory loss. Blood pressure control has been good. Medications: the patient is adherent with her medication regimen. She denies medication side effects.. Vitamin D Deficiency: The patient is being seen for follow-up of vitamin D deficiency. Disease type: vitamin D deficiency. Current treatment includes sun exposure, dietary vitamin D, vitamin D3 (cholecalciferol) and calcium supplement. Symptoms: fatigue, muscle pain, muscle weakness and gait abnorma lity. Review of Systems See HPI for pertinent positives. Constitutional: as noted in HPI and fatigue. Head and Face: negative. Eyes: negative. ENT: negative. Cardiovascular: as noted in HPI. Respiratory: negative. Gastrointestinal: negative. Genitourinary: as noted in HPI and incontinent of urine and BM. Musculoskeletal: as noted in HPI, pain in other joints and generalized muscle aches. Integumentary as noted in HPI. Psychiatric: insomnia. Hematologic and Lymphatic: as noted in HPI. Neurological As Noted in HPI, confusion, numbness in legs and leg weakness. Endocrine As Noted in HPI. Active Problems 1. Abrasion or friction burn [...] 1 tablet twice daily; Therapy: 24Mar2013 to (Evaluate:[id number]) Recorded 7. Fenofibrate Micronized 200 MG Oral Capsule; TAKE 1 CAPSULE Daily; Therapy: 06Oct2017 to Recorded 8. Florastor 250 MG Oral Capsule; TAKE 1 CAPSULE TWICE DAILY; Therapy: (Recorded:29Dec2017) to Recorded 9. Lisinopril 20 MG Oral Tablet; TAKE 1 TABLET BY MOUTH EVERY DAY; Therapy: 11Mar2013 to (Evaluate:[id number]) Recorded 10. Loratadine 10 MG Oral Tablet; TAKE 1 TABLET DAILY; Therapy: 06Oct2017 to Recorded 11. Lyrica 150 MG Oral Capsule; Take one capsule by mouth every morning and at bedtime; Therapy: 21Fal6982 to (Evaluate:[id number]); Last Rx:[id number] Ordered 12. Magnesium 27 500 (27 Mg) [...] TAKE ONE CAPSULE BY MOUTH DAILY; Therapy: [id number] to Recorded 18. Potassium Chloride Laura ER 10 MEQ Oral Tablet Extended Release; TAKE 2 TABLET Daily; Therapy: 29Dec2017 to Recorded 19. Siltussin SA 100 MG/5ML Oral Syrup; TAKE 5 ML EVERY 4 HOURS NEEDED; Therapy: (Recorded:29Dec2017) to Recorded 20. Thera-mill Oral Tablet; TAKE 1 TABLET DAILY; Therapy: 06Oct2017 to Recorded 21. Vitamin D (Ergocalciferol) 58528 UNIT Oral Capsule; TAKE 1 CAPSULE Weekly; Therapy: 29Dec2017 to Recorded Allergies 1. Flagyl CAPS Vitals Recorded: 10Feb2018 11:25AM Temperature 98.3 F Heart Rate 84 Respiration 20 Systolic 108 Diastolic 60 Height 5 ft 6 in Weight 156 lb 8 oz BMI Calculated 25.26 BSA Calculated 1.8 Physical Exam Constitutional General appearance: Abnormal. chronically ill and appears tired, but well developed, well nourishedand well hydrated. Eyes Conjunctiva and lids: No swelling, erythema or discharge. Pupils and irises: Equal, round and reactive to light. Ears, Nose, Mouth, and Throat External inspection of ears and nose: Normal. Pulmonary Respiratory effort: No increased work of breathing or signs of respiratory distress. Auscultation of lungs: Abnormal. Auscultation of the lungs revealed decreased breath sounds diffusely, but no expiratory wheezing. Cardiovascular Auscultation of heart: Abnormal. The rhythm was irregularly irregular. 2/6 murmur. Examination of extremities for edema and/or varicosities: Abnormal. (bilateral lower extremity edema is mild) Abdomen Abdomen: Non-tender, no masses. Lymphatic Palpation of lymph nodes in neck: No lymphadenopathy. Musculoskeletal Gait and station: Abnormal. (Patient is nonambulatory, nonweightbearing. Has to have Joana lift fortransfers) Inspection/palpation of joints, bones, and muscles: Abnormal. Generalized muscle atrophy and weakness with arthritis.. Skin Skin and subcutaneous tissue: Normal without rashes or lesions. Examination of the skin for lesions: Abnormal. PU on right gluteal fold area, two small open areas.5 cm diameter each within close proximity of each other... Neurologic Cranial nerves: Cranial nerves 2-12 intact. Psychiatric Orientation to person, place, and time: Abnormal. Patient is disoriented to place and time but not to person.. Mood and affect: Normal. Assessment 1. Decubitus ulcer of buttock, stage 2 (707.05,707.22) (L89.302) 2. Hyperlipidemia (272.4) (E78.5) 3. Hypertension (401.9) (I10) 4. Generalized multiple sclerosis (340) (G35) 5. Mild vitamin D deficiency (268.9) (E55.9) 6. 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 Unintended weight loss (783.21) (R63.4) Plan Pt has issues with the wound on the buttocks not healing. Will order SWM consult as needed. 1) Review of Meds, tx, and labs have been done. 2) Reconciliation of medication 3) Pt is stable on the current Plan of Care 4) Will continue to see pt on routine monthly visit. Signatures Electronically signed by : Sosa Ellis NP; Feb 14 2018 9:21PM PRECISION LENS GRINDER (Author) documented in this encounter Plan of Treatment Not on file documented as of this encounter Visit Diagnoses Not on filedocumented in this encounter
--- OUTSIDE RECORDS SUMMARY | 2024-09-21 01:20 | XMS_ITS | Encounter Summary ---
Author Organization [facility] Address [address] [place] [address] [place] [address] Care Team Providers Care Kitchenhand Name Role Phone Unavailable Primary Care Provider Unavailabl e Encounter Details Date Type Department Care Team (Latest Contact Info) Description 03/12/2018 Abstract [facility] Social History Tobacco Use Types [...]
--- OUTSIDE RECORDS SUMMARY | 2024-09-21 01:20 | XMS_ITS | Encounter Summary ---
Author Organization [facility] Address [facility] [place] [address] [place] [address] Care Team Providers Care Pediatric Dental Assistant Name Role Phone Unavailable Primary Care Provider Unavailabl e Encounter Details Date Type Department Care Team (Late st Contact Info) Description 07/06/2018 Abstract [facility] Family & Internal Medicine - [place] [address] [place] [address] Frieda Wasserman MD Social History [...] Sign Reading Time Taken Comments Blood Pressure 115/64 07/06/2018 2:25 PM CDT Pulse 78 07/06/2018 2:25 PM CDT Temperature - - Respiratory Rate - - Oxygen Saturation - - Inhaled Oxygen Concentration - - Weight 70.3 kg (155 lb) 07/06/2018 2:25 PM CDT Height 167.6 cm (5' 6 ) 07/06/2018 2:25 PM CDT Body Mass Index 25.02 07/06/2018 2:25 PM CDT documented in this encounter Progress Notes * Frieda Wasserman MD - 07/06/2018 3:00 PM CDT Chief Complaint [facility] visit, routine follow up History of Present Illness HPI Free Text: Emelina is being seen for routine follow up of multiple medical issues . Denies any issues Dementia: stable complete care, advanced dementia. requires feeding HTN BP has been stable DMII running 108 -146 metformin d/c 04/14 A1c was 7.0 so decreased glimepiride to 0.5mg MS. non weight bearing uses gabriel lift Pressure ulcer Swm seeing slowly improving she reports she is doing well and denies issues Review of Systems Difficult to assess ROS [...] (R15.9) 3. Choking episode (784.99) (R09.89) 4. Conjunctivitis (372.30) (H10.9) 5. Dementia (294.20) (F03.90) 6. Diabetes mellitus [...] eyes (379.93) (H57.8) 18. Toe injury (959.7) (S99.929A) 19. Unintended weight loss (783.21) (R63.4) 20. [...] 1 tablet twice daily; Therapy: 24Mar2013 to (Evaluate:78Jtm5085) Recorded 7. Fenofibrate Micronized 200 MG Oral Capsule; TAKE 1 CAPSULE Daily; Therapy: 06Oct2017 to Recorded 8. Florastor 250 MG Oral Capsule; TAKE 1 CAPSULE TWICE DAILY; Therapy: (Recorded:29Dec2017) to Recorded 9. Glimepiride 1 MG Oral Tablet; TAKE 0.5 TABLET Daily; Therapy: 19Apr2018 to (Evaluate:41Kos4956) Recorded 10. Lisinopril 20 MG Oral Tablet; TAKE 1 TABLET BY MOUTH EVERY DAY; Therapy: 11Mar2013 to (Evaluate:36Tgg6631) Recorded 11. Loratadine 10 MG Oral Tablet; TAKE 1 TABLET DAILY; Therapy: 06Oct2017 to Recorded 12. Magnesium 27 500 (27 Mg) MG Oral Tablet; Take 1 tablet twice daily; Therapy: 06Oct2017 to Recorded 13. Metoprolol Tartrate 25 MG Oral Tablet; TAKE TABLET Twice daily; Therapy: (Recorded:29Dec2017) to Recorded 14. Milk of Magnesia 1200 MG/15ML Oral Suspension; TAKE 30 ML Daily PRN; Therapy: (Recorded:29Dec2017) to Recorded 15. MiraLax Oral Powder; DISSOLVE 17 GMS (1 CAPFUL) IN 4 OR 6 OUNCES OF WATER/JUICE AND DRINK ONCE DAILY; Therapy: (Recorded:29Dec2017) to Recorded 16. Namenda XR 28 MG Oral Capsule Extended Release 24 Hour; TAKE ONE CAPSULE BY MOUTH DAILY; Therapy: 01Oev3123 to Recorded 17. Potassium Chloride Laura ER 10 MEQ Oral Tablet Extended Release; TAKE 2 TABLET Daily; Therapy: 29Dec2017 to Recorded 18. Siltussin SA 100 MG/5ML Oral Syrup; TAKE 5 ML EVERY 4 HOURS NEEDED; Therapy: (Recorded:29Dec2017) to Recorded 19. Thera-mill Oral Tablet; TAKE 1 TABLET DAILY; Therapy: 06Oct2017 to Recorded 20. Vitamin D (Ergocalciferol) 24627 UNIT Oral Capsule; TAKE 1 CAPSULE Weekly; Therapy: 29Dec2017 to Recorded Allergies 1. Flagyl CAPS Vitals Recorded: 06Jul2018 02:25PM Temperature 97.9 F Heart Rate 78 Respiration 18 Systolic 115 Diastolic 64 Height 5 ft 6 in Weight 155 lb BMI Calculated 25.02 BSA Calculated 1.79 Physical Exam Constitutional General appearance: No acute [...] to self. Mood and affect: Normal. Assessment doing well on current regimen Plan Con't current plan of care Labs and meds reviewed RTC monthly or sooner if needed Signatures Electronically signed by : Frieda Wasserman M.D.; Jul 07 2018 9:59AM HOUSING GRANT ANALYST (Author) documented in this encounter Plan of Treatment Not on file documented as of this encounter Visit Diagnoses Not on filedocumented in this encounter
--- OUTSIDE RECORDS SUMMARY | 2024-09-21 01:20 | XMS_ITS | Encounter Summary ---
Author Organization [facility] - [facility] Address [address] [place] [address] [place] [address] Care Team Providers Care Purchasing/Receiving Name Role Phone Frieda Wasserman MD Primary Care Provider Unavailab le Encounter Details Date Type Department Care Team (Latest Contact Info) Description 07/28/2018 Scan HEALTH INFO SRVCS Scanned, Documents Social [...] on filedocumented in this encounter Care Teams Purchasing/Receiving Relationship Specialty Start Date End Date Frieda Wasserman MD PCP - General INTERNAL MEDICINE 08/31/18 02/23/20 documented as of this encounter
--- OUTSIDE RECORDS SUMMARY | 2024-09-21 01:20 | XMS_ITS | Encounter Summary ---
Author Organization [facility] Address [address] [facility] [place] [address] [place] [address] Care Team Providers Care Machine Woodworking Sander Name Role Phone Unavailable Primary Care Provider Unavailabl e Encounter Details Date Type Department Care Team (Latest Contact Info) Description 06/11/2018 Abstract [facility] Frieda Wasserman MD Social History [...] Procedure Name Priority Date/Time Associated Diagnosis Comments CBC W/DIFF AUTOMATED Routine 06/11/2018 1:38 PM CDT documented in this encounter Results * (ABNORMAL) CBC W/DIFF AUTOMATED (06/11/2018 1:38 PM CDT) WBC 3.5(L) 4.4 - 11.0 x10'3/uL [facility] TO EPIC CONVERSION RBC 4.44(L) 4.50 - 5.10 x10'6/uL [facility] TO EPIC CONVERSION HGB 13.8 12.3 - 15.3 G/DL [facility] TO EPIC CONVERSION HCT 41.4 35.9 - 44.6 % [facility] TO EPIC CONVERSION MCV 93.2 80.0 - 96.0 FL [facility] TO EPIC CONVERSION MCH 31.1(H) 25.3 - 30.9 PG [facility] TO EPIC CONVERSION MCHC 33.3 31.0 - 34.1 G/DL [facility] TO EPIC CONVERSION RDW 14.4 12.4 - 15.1 % [facility] TO EPIC CONVERSION PLT 160 151 - 353 x10'3/uL [facility] TO EPIC CONVERSION MPV 11.0 9.6 - 12.0 FL [facility] TO EPIC CONVERSION BASOPHILS % 0.9 0.0 - 1.3 % [facility] TO EPIC CONVERSION EOSINOPHILS % 3.5 0.0 - 5.6 % [facility] TO EPIC CONVERSION NEUTROPHILS % 60.0 42.1 - 71.9 % [facility] TO EPIC CONVERSION LYMPHOCYTES % 29.5 15.8 - 45.0 % [facility] TO EPIC CONVERSION IMMATURE GRANS % 0.0 0.0 - 0.5 % [facility] TO EPIC CONVERSION ABS. NEUTROPHILS TOTAL 2.08 1.40 - 6.00 x10'3/uL [facility] TO EPIC CONVERSION WBC MORPHOLOGY NORMAL [facility] OUP TO EPIC CONVERSION PLT MORPH. NORMAL [facility] TO EPIC CONVERSION RBC MORPHOLOGY NORMAL [facility] OUP TO EPIC CONVERSION MONOCYTES 6.1 5.7 - 12.5 % [facility] TO EPIC CONVERSION ABS. LYMPHOCYTES 1.02 0.80 - 4.70 x10'3/uL [facility] TO EPIC CONVERSION 06/11/2018 1:38 PM CDT 06/11/2018 1:38 PM CDT Narrative [facility] TO EPIC CONVERSION - 06/11/2018 2:02 PM CDT Result Communication: No patient communication needed at this time us Frieda Wasserman MD LABORATORY Final Result [facility] TO EPIC CONVERSION documented in this encounter Visit Diagnoses Not on filedocumented in this encounter
--- OUTSIDE RECORDS SUMMARY | 2024-09-21 01:20 | XMS_ITS | Encounter Summary ---
Author Organization [facility] Address [facility] [place] [address] [place] [address] Care Team Providers Care Advanced Manufacturing Consultant Name Role Phone Unavailable Primary Care Provider Unavailabl e Encounter Details Date Type Department Care Team (Late st Contact Info) Description 01/12/2018 Abstract [facility] Family & Internal Medicine - [place] [address] [place] [address] Frieda Wasserman MD Social History [...] Sign Reading Time Taken Comments Blood Pressure 102/69 01/12/2018 3:08 PM CDT Pulse 76 01/12/2018 3:08 PM CDT Temperature - - Respiratory Rate - - Oxygen Saturation - - Inhaled Oxygen Concentration - - Weight 69.5 kg (153 lb 2.1 oz) 01/12/2018 3:08 P M CDT Height 167.6 cm (5' 6 ) 01/12/2018 3:08 PM CDT Body Mass Index 24.72 01/12/2018 3:08 PM CDT documented in this encounter Progress Notes * Frieda Wasserman MD - 01/12/2018 2:40 PM CDT Chief Complaint detention visit, routine follow up History of Present Illness HPI Free Text: Emelina is being seen for routine follow up of multiple medical issues . Denies any issues Dementia: stable complete care, advanced dementia. requires feeding HTN BP has been stable DMII on metformin. controlled MS. non weight bearing Ongoing skin issues, breaks down gets healed then opens again Review of Systems Difficult to assess ROS [...] 1 tablet twice daily; Therapy: 24Mar2013 to (Evaluate:[id number]) Recorded 7. Fenofibrate Micronized 200 MG Oral Capsule; TAKE 1 CAPSULE Daily; Therapy: 06Oct2017 to Recorded 8. Florastor 250 MG Oral Capsule; TAKE 1 CAPSULE TWICE DAILY; Therapy: (Recorded:29Dec2017) to Recorded 9. Lisinopril 20 MG Oral Tablet; TAKE 1 TABLET BY MOUTH EVERY DAY; Therapy: 11Mar2013 to (Evaluate:96Fsi3886) Recorded 10. Loratadine 10 MG Oral Tablet; TAKE 1 TABLET DAILY; Therapy: 06Oct2017 to Recorded 11. Lyrica 150 MG Oral Capsule; Take one capsule by mouth every morning and at bedtime; Therapy: 20Rxc2615 to (Evaluate:90Hqd1425) Recorded 12. Magnesium 27 500 (27 Mg) [...] TAKE ONE CAPSULE BY MOUTH DAILY; Therapy: 70Rdl8549 to Recorded 18. Potassium Chloride Laura ER 10 MEQ Oral Tablet Extended Release; TAKE 2 TABLET Daily; Therapy: 29Dec2017 to Recorded 19. Siltussin SA 100 MG/5ML Oral Syrup; TAKE 5 ML EVERY 4 HOURS NEEDED; Therapy: (Recorded:29Dec2017) to Recorded 20. Thera-mill Oral Tablet; TAKE 1 TABLET DAILY; Therapy: 06Oct2017 to Recorded 21. Vitamin D (Ergocalciferol) 83393 UNIT Oral Capsule; TAKE ONE CAPSULE BY MOUTH WEEKLY FOR twelve WEEKS; Therapy: 29Dec2017 to Recorded Allergies 1. Flagyl CAPS Vitals Recorded: 81Ett8144 03:08PM Temperature 97.4 F Heart Rate 76 Respiration 18 Systolic 102 Diastolic 69 Height 5 ft 6 in Weight 153 lb 2 oz BMI Calculated 24.72 BSA Calculated 1.79 Physical Exam Constitutional General [...] self. Mood and affect: Normal. Assessment 1. Dementia (294.20) (F03.90) 2. Generalized multiple sclerosis (340) (G35) 3. Impaired weight bearing (V49.89) (R26.89) 4. Hypertension (401.9) (I10) Stable Plan Con't current plan of care Labs and meds reviewed RTC monthly or sooner if needed Signatures Electronically signed by : Frieda Wasserman M.D.; Jan 12 2018 5:59PM SEMICONDUCTOR PROCESSING TECHNICIAN (Author) documented in this encounter Plan of Treatment Not on file documented as of this encounter Visit Diagnoses Not on filedocumented in this encounter
--- OUTSIDE RECORDS SUMMARY | 2024-09-21 01:20 | XMS_ITS | Encounter Summary ---
Author Organization [facility] - [facility] Address [facility] [facility] [place] [address] [place] [address] Care Team Providers Care Groundskeeping Maintenance Worker Name Role Phone Frieda Wasserman MD Primary Care Provider Unavailab le Keiry Rucker ELEMENTARY SECRETARY Unavailable [phone] Encounter Details Date Type Department Care Team (Late st Contact Info) Description 11/30/2018 [facility] [address] [place] [address] Ronel Hoang, JAH Social History [...] polyneuropathy, without long-term current use of insulin ([facility]/HCC [facility]) documented in this encounter Care Teams Groundskeeping Maintenance Worker Relationship Specialty Start Date End Date Frieda Wasserman MD PCP - General INTERNAL MEDICINE 08/31/18 02/23/20 Keiry Rucker NP Consulting Physician [facility] 10/04/18 04/13/19 documented as of this encounter
--- OUTSIDE RECORDS SUMMARY | 2024-09-21 01:20 | XMS_ITS | Encounter Summary ---
Author Organization [facility] Address [address] [place] [address] [place] [address] Care Team Providers Care Billet Header Name Role Phone Frieda Wasserman MD Primary Care Provider Unavailab Keiry Salazar RECEPTION MANAGER Unavailable [phone] Encounter Details Date Type Department Care Team (Latest Contact Info) Description 01/25/2019 Scan HEALTH INFO SRVCS Scanned, Documents Social [...] on filedocumented in this encounter Care Teams Billet Header Relationship Specialty Start Date End Date Frieda Wasserman MD PCP - General INTERNAL MEDICINE 08/31/18 02/23/20 Keiry Rucker NP Consulting Physician [facility] 10/04/18 04/13/19 documented as of this encounter
--- OUTSIDE RECORDS SUMMARY | 2024-09-21 01:20 | XMS_ITS | Encounter Summary ---
Author Organization [facility] Address [address] [facility] [place] [address] [place] [address] Care Team Providers Care Vamp Presser Name Role Phone Beni Cevallos MD Primary Care Provider Unavailab Keiry Salazar BOILER TECHNICIAN Unavailable Reason for Visit * Reason Comments Halfway routine follow up, p atient has cellulitis issues as well Encounter Details Date Type Department Care Team (Late st Contact Info) Description 11/02/2018 10:00 AM [facility]way [facility] Group Family & Internal Medicine [address] [address] Beni Cevallos MD Halfway (routine follow up, patient has cellulitis issues as well ) Social History Tobacco Use Types Packs/Day Years Used Date Smoking Tobacco: Unknown Comments Unknown Sex and Gender Information Value Date Recorded Sex Assigned at Not on file Legal Sex Female 10:25 PM CDT Gender Identity Not on file Sexual Orientation Not on file documented as of this encounter Last Filed Vital Signs Vital Sign Reading Time Taken Comments Blood Pressure 96/60 11/03/2018 8:36 AM DRY MOLDER Pulse 74 11/03/2018 8:36 AM DRY MOLDER Temperature 36.3 ??C (97.4 ??F) 11/03/2018 8:36 AM CS T Respiratory Rate 20 11/03/2018 8:36 AM DRY MOLDER Oxygen Saturation - - Inhaled Oxygen Concentration - - Weight 69.4 kg (153 lb) 11/03/2018 8:36 AM DRY MOLDER Height 167.6 cm (5' 6 ) 11/03/2018 8:36 AM DRY MOLDER Body Mass Index 24.69 11/03/2018 8:36 AM DRY MOLDER documented in this encounter Progress Notes * Beni Cevallos MD - 11/02/2018 10:00 AM CST Reason for Visit: Halfway (routine follow up, patient has cellulitis issues as well ) History of Present Illness: Emelina is being seen for routine follow up of multiple medical issues at [facility].?? Dementia: stable complete care, advanced dementia. requires feeding ?? HTN BP has been running a little low. Denies dizziness lightheadedness. 122/64, 124/82 96/60 DMII A1c 7 in Apr. Just on low dose glimepiride now??and ok given her compatibilities MS. non weight bearing uses gabriel lift ?? Le hip with redness, warm to touch treated with keflex 10/28 for 7 days. Now no pain, L hip not warm, no swelling noted by RN. ROS: Review of Systems Constitutional: Negative for [...] Disp: , Rfl: ??? vitamin D2, ergocalciferol, 10743 UNITS capsule, Take 1 capsule by mouth [...] family status information on file. Filed Vitals: 11/03/18 0836 BP: 96/60 Pulse: 74 Resp: 20 Temp: 97.4 ??F (36.3 ??C) Weight: 69.4 kg (153 lb) Height: 5' 6 (1.676 m) Physical [...] disoriented. Gait (gabriel lift, wheelchair) abnormal. Skin: Skin R hip normal. Does have healing pressure ulcer bottom, thin Psychiatric: She has a normal mood and affect. Her behavior is normal. Cognition and memory are impaired. She is noncommunicative. She exhibits abnormal recent memory and abnormal remote memory. Diagnoses/Impression: Emelina was seen today for long term. 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 BP on lower side will decrease lisinopril from 20 to 10mg Wound care per SWM and wound nurse. Cellulitis has resolved with keflex Recommendations and Plan: Con't current plan of care Labs and meds reviewed RTC monthly or sooner if needed BENI CEVALLOS MD MOLDER documented in this encounter Plan of Treatment Not on file documented as of this encounter Visit Diagnoses Diagnosis Late onset Alzheimer's disease without behavioral disturbance (CMS/HCC HHS/HCC)- Primary Type 2 diabetes mellitus with diabetic polyneuropathy, without long-term current use of insulin (CMS/HCC HHS/HCC) Generalized multiple sclerosis (CMS/HCC HHS/HCC) Multiple sclerosis Essential hypertension Unspecified essential hypertension documented in this encounter Care Teams Vamp Presser Relationship Specialty Start Date End Date Beni Cevallos MD PCP - General INTERNAL MEDICINE 08/31/18 02/23/20 Keiry Rucker NP Consulting Physician [facility] 10/04/18 04/13/19 documented as of this encounter
--- OUTSIDE RECORDS SUMMARY | 2024-09-21 01:20 | XMS_ITS | Encounter Summary ---
Author Organization [facility] Address [address] [place] [address] [place] [address] Care Team Providers Care Bail Bondsman Name Role Phone Unavailable Primary Care Provider Unavailabl e Encounter Details Date Type Department Care Team (Late st Contact Info) Description 04/14/2018 Abstract [facility] Medical Group Family & Internal Medicine - [place] [address] [place] [address] Sosa Ellis NP Social History [...] Reading Time Taken Comments Blood Pressure 102/68 04/14/2018 10:40 AM CDT Pulse 76 04/14/2018 10:40 AM CDT Temperature - - Respiratory Rate - - Oxygen Saturation - - Inhaled Oxygen Concentration - - Weight 71 kg (156 lb 8 oz) 04/14/2018 10:40 AM C DT Height 167.6 cm (5' 6 ) 04/14/2018 10:40 AM CDT Body Mass Index 25.26 04/14/2018 10:40 AM CDT documented in this encounter Progress Notes * Sosa Ellis NP - 04/14/2018 9:00 AM CDT Reason For Visit Alf Visit History of Present Illness HPI Free Text: Pt is having continuous oozing of soft BM that is causing the healing of the buttocks to be more difficult. Review of medication Metformin will be discontinued Monitor the blood sugars Glimepiride 1 mg po at breakfast Multiple Sclerosis (Follow-Up): The patient is being [...] pain, muscle weakness and gait abnorma lity. Dementia (Follow-Up): Her dementia has been stable since the last visit. She has no comorbid illnesses. She has no significant interval events. Symptoms: worsened memory impairment, denies agitation, denies aggression, denies depression, denies sleep disturbances, denies wandering, denies delusions, denies difficulty finding desired words and stable pt has inability to perform ADLs. Review of Systems See HPI for pertinent positives. Constitutional: as noted in HPI and fatigue. Head and Face: negative. Eyes: negative. ENT: negative. Cardiovascular: as noted in HPI. Respiratory: negative. Gastrointestinal: negative. Genitourinary: as noted in HPI and incontinent of urine and BM. nocturnal enuresis Musculoskeletal: as noted in HPI, generalized muscle aches and pain in other joints. Integumentary as noted in HPI. Neurological confusion, numbness in legs and leg weakness. Psychiatric: insomnia. Endocrine As Noted in HPI. Hematologic and Lymphatic: as noted in HPI. Active Problems 1. Abrasion or [...] 1 tablet twice daily; Therapy: 24Mar2013 to (Evaluate:21Rbd1922) Recorded 7. Fenofibrate Micronized 200 MG Oral Capsule; TAKE 1 CAPSULE Daily; Therapy: 06Oct2017 to Recorded 8. Florastor 250 MG Oral Capsule; TAKE 1 CAPSULE TWICE DAILY; Therapy: (Recorded:29Dec2017) to Recorded 9. Lisinopril 20 MG Oral Tablet; TAKE 1 TABLET BY MOUTH EVERY DAY; Therapy: 11Mar2013 to (Evaluate:39Zmm4800) Recorded 10. Loratadine 10 MG Oral Tablet; TAKE 1 TABLET DAILY; Therapy: 06Oct2017 to Recorded 11. Lyrica 150 MG Oral Capsule; Take one capsule by mouth every morning and at bedtime; Therapy: 51Jcc6192 to (Evaluate:09Vff0463); Last Rx:[id number] Ordered 12. Magnesium 27 500 (27 Mg) [...] Therapy: (Recorded:29Dec2017) to Recorded 16. MiraLax Oral Powder (Polyethylene Glycol 3350); DISSOLVE 17 GMS (1 CAPFUL) IN 4 OR 6 OUNCES OF WATER/JUICE AND DRINK ONCE DAILY; Therapy: (Recorded:29Dec2017) to Recorded 17. Namenda XR 28 MG Oral Capsule Extended Release 24 Hour (Memantine HCl ER); TAKE ONE CAPSULE BY MOUTH DAILY; Therapy: 51Chv0126 to Recorded 18. Potassium Chloride Laura ER 10 MEQ Oral Tablet Extended Release; TAKE 2 TABLET Daily; Therapy: 29Dec2017 to Recorded 19. Siltussin SA 100 MG/5ML Oral Syrup; TAKE 5 ML EVERY 4 HOURS NEEDED; Therapy: (Recorded:29Dec2017) to Recorded 20. Thera-mill Oral Tablet; TAKE 1 TABLET DAILY; Therapy: 06Oct2017 to Recorded 21. Vitamin D (Ergocalciferol) 74044 UNIT Oral Capsule; TAKE 1 CAPSULE Weekly; Therapy: 29Dec2017 to Recorded Allergies 1. Flagyl CAPS Vitals Recorded: 32Msd9001 10:40AM Temperature 97.3 F Heart Rate 76 Respiration 18 Systolic 102 Diastolic 68 Height 5 ft 6 in Weight 156 lb 8 oz BMI Calculated 25.26 BSA Calculated 1.80 Physical Exam Constitutional General appearance: Abnormal. chronically [...] person.. Mood and affect: Normal. Assessment 1. Hypertension (401.9) (I10) 2. Hyperlipidemia (272.4) (E78.5) 3. Generalized multiple sclerosis (340) (G35) 4. 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 Dementia (294.20) (F03.90) 6. Mild vitamin D deficiency (268.9) (E55.9) 7. Decubitus ulcer of buttock, stage 2 (707.05,707.22) (L89.302) 8. Diarrhea (787.91) (R19.7) 9. 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 Glimepiride 1 MG Oral Tablet; TAKE 1 TABLET DAILY Rx By: Sosa Ellis; Dispense: 30 Days ; #:30 Tablet; Refill: 0; For: Diabetes mellitus with neurological manifestations, uncontrolled; MICHAEL = N; Record D/c Metformin Accuck daily fasting Glimepiride 1 mg po at breakfast 1) Review of Meds, tx, and labs have been done. 2) Reconciliation of medication 3) Pt is stable on the current Plan of Care 4) Will continue to see pt on routine monthly visit. Poorly healing wound on the buttock is being treated by [facility] Chronic issue for the patient. Signatures Electronically signed by : Sosa Ellis NP; Apr 19 2018 7:43PM AGENCY DEVELOPMENT MANAGER (Author) documented in this encounter Plan of Treatment Not on file documented as of this encounter Visit Diagnoses Not on filedocumented in this encounter
--- OUTSIDE RECORDS SUMMARY | 2024-09-21 01:20 | XMS_ITS | Encounter Summary ---
Author Organization [facility] Address [address] [place] [address] [place] [address] Care Team Providers Care Township Supervisor Name Role Phone Unavailable Primary Care Provider Unavailabl e Encounter Details Date Type Department Care Team (Latest Contact Info) Description 04/13/2018 Abstract [facility] Social History Tobacco Use [...]
--- OUTSIDE RECORDS SUMMARY | 2024-09-21 01:20 | XMS_ITS | Encounter Summary ---
Author Organization [facility] Address [facility] [place] [address] [place] [address] Care Team Providers Care Loftsman Name Role Phone Frieda Wasserman MD Primary Care Provider Unavailab le Keiry Rucker BUTTON RECLAIMER Unavailable [phone] Encounter Details Date Type Department Care Team (Late st Contact Info) Description 02/07/2019 [facility] [address] [place] [address] Ronel Hoang, JAH Social History [...] polyneuropathy, without long-term current use of insulin ([facility]/HCC [facility]) documented in this encounter Care Teams Loftsman Relationship Specialty Start Date End Date Frieda Wasserman MD PCP - General INTERNAL MEDICINE 08/31/18 02/23/20 Keiry Rucker NP Consulting Physician [facility] 10/04/18 04/13/19 documented as of this encounter
--- OUTSIDE RECORDS SUMMARY | 2024-09-21 01:20 | XMS_ITS | Encounter Summary ---
Author Organization [facility] Address [address] [place] [address] [place] [address] Care Team Providers Care Combination Building Inspector Name Role Phone Frieda Wasserman MD Primary Care Provider Unavailab Keiry Salazar PRE BILLING SPECIALIST Unavailable [phone] Encounter Details Date Type Department Care Team (Late st Contact Info) Description 09/13/2018 Abstract [facility] [address] [place] [address] Frieda Wasserman MD Social History [...] COMPREHENSIVE METABOLIC PANEL Routine 09/13/2018 12:14 PM SURVEY RESEARCH TEACHER LIPID PANEL Routine 09/13/2018 12:14 PM SURVEY RESEARCH TEACHER LIPOPROTEIN, LDL CHOL, DIRECT Routine 09/13/2018 12:14 PM SURVEY RESEARCH TEACHER CBC W/DIFF AUTOMATED Routine 09/13/2018 12:14 PM SURVEY RESEARCH TEACHER documented in this encounter Results * LIPOPROTEIN, LDL CHOL, DIRECT (09/13/2018 12:14 PM SURVEY RESEARCH TEACHER) DIRECT LDL 61 <100 MG/DL 09/13/2018 2:16 PM SURVEY RESEARCH TEACHER [facility] Comment: LDL OPTIMAL ?<100LDL NEAR OPTIMAL ? 100-129LDL BORDERLINE HIGH ?? 130-159LDL HIGH ? 160-189LDL VERY HIGH ?>=190 ?? 09/13/2018 12:1 4 PM SURVEY RESEARCH TEACHER us Generic Conversion Md B[facility]UMEN LABORATORY Final R esult [facility] [address] [place] [address], * (ABNORMAL) LIPID PANEL (09/13/2018 12:14 PM SURVEY RESEARCH TEACHER) CHOLESTEROL 164 <200.0 MG/DL 09/13/2018 2:[address] [facility] TRIGLYCERIDES 602(H) <150 MG/DL 09/13/2018 2:[address] [facility] Comment:REFLEXED DIRECT LDL DUE TO TRIG >400. HDL 29(L) >40.0 MG/DL 09/13/2018 2:[address] [facility] LDL (CALCULATED) NOT CALCULATED <100 MG/DL 09/13/2018 2:[address] [facility] Comment:TRIGLYCERIDE >400 IN VALIDATES FRACTIONATION. NON HDL CHOLESTEROL 135(H) <130 MG/DL 09/13/2018 2:[address] [facility] CHOL/HDL RATIO 5.7(H) 0.0 - 4.5 09/13/2018 2:[address] [facility] VLDL CALCULATION NOT CALCULATED 5 - 55 MG/DL 09/13/2018 2:[address] [facility] Comment:TRIGLYCERIDE >400 IN VALIDATES FRACTIONATION. LIPID INTERPRETATION 09/13/2018 2:[address] [facility] Comment: NIH CONCENSUS REPORT RECOMMENDATIONS: [...] ? >=160 ?>=130 OTHER (type in comments) 09/13/2018 12:14 PM SURVEY RESEARCH TEACHER 09/13/2018 1:15 PM SURVEY RESEARCH TEACHER Comment:ACELLULAR BLOOD (SER UM OR PLASMA) SPECIMEN us Generic Conversion Md [facility] LABORATORY Final R esult [facility] [address] [place] [address], [place] [phone] * (ABNORMAL) COMPREHENSIVE METABOLIC PANEL (09/13/2018 12:14 PM SURVEY RESEARCH TEACHER) GLUCOSE 217(H) 70 - 99 MG/DL 09/13/2018 2:[address] [facility] BUN 20(H) 7 - 18 MG/DL 09/13/2018 2:[address] [facility] CREATININE S/P/B 1.21(H) 0.55 - 1.02 MG/DL 09/13/2018 2:[address] [facility] SODIUM S/P/B 142 136 - 145 MMOL/L 09/13/2018 2:[address] [facility] POTASSIUM S/P/B 4.4 3.5 - 5.1 MMOL/L 09/13/2018 2:[address] [facility] CHLORIDE S/P/B 107 100 - 108 MMOL/L 09/13/2018 2:[address] [facility] CO2 23.1 21 - 32 MMOL/L 09/13/2018 2:[address] [facility] CALCIUM S/P/B 9.3 8.5 - 10.1 MG/DL 09/13/2018 2:[address] [facility] BILIRUBIN TOTAL S/P/B 0.2 0.2 - 1.2 MG/DL 09/13/2018 2:[address] [facility] TOTAL PROTEIN S/P/B 6.7 6.4 - 8.2 G/DL 09/13/2018 2:[address] [facility] ALBUMIN S/P/B 3.1(L) 3.4 - 5.0 G/DL 09/13/2018 2:[address] [facility] AST 27 15 - 37 U/L 09/13/2018 2:[address] [facility] ALT 29 14 - 55 U/L 09/13/2018 2:[address] [facility] ALKALINE PHOSPHATASE S/P/B 80 50 - 136 U/L 09/13/2018 2:[address] [facility] ANION GAP 16.3 8 - 20 MMOL/L 09/13/2018 2:[address] [facility] BUN CREATININE RATIO 16.5 6 - 26 09/13/2018 2:[address] [facility] A/G RATIO 0.9(L) 1.0 - 2.0 RATIO 09/13/2018 2:[address] [facility] EGFR NON-AFR. AMER. 43(L) >90 ML/MIN/1.7 3 M2 09/13/2018 2:[address] [facility] EGFR AFR. AMER. 50(L) >90 ML/MIN/1.7 3 M2 09/13/2018 2:[address] [facility] Comment: NOTE: eGFR is not calculated for patients <18 years of age. This is an estimated GFR (CKD EPI) and should not be used for calculating drug doses. 09/13/2018 12:1 4 PM SURVEY RESEARCH TEACHER 09/13/2018 1:15 PM SURVEY RESEARCH TEACHER us Generic Conversion Md BERUMEN LABORATORY Final R esult [facility] [address] [place] [address], [place] [phone] * (ABNORMAL) CBC W/DIFF AUTOMATED (09/13/2018 12:14 PM SURVEY RESEARCH TEACHER) [facility] WBC 4.3(L) 4.4 - 11.0 x10'3/uL 09/13/2018 1:[address] [facility] RBC 4.50 4.50 - 5.10 x10'6/uL 09/13/2018 1:[address] [facility] HGB 13.6 12.3 - 15.3 G/DL 09/13/2018 1:[address] [facility] HCT 42.7 35.9 - 44.6 % 09/13/2018 1:[address] [facility] MCV 94.9 80.0 - 96.0 FL 09/13/2018 1:[address] [facility] MCH 30.2 25.3 - 30.9 PG 09/13/2018 1:[address] [facility] MCHC 31.9 31.0 - 34.1 G/DL 09/13/2018 1:[address] [facility] RDW 14.3 12.4 - 15.1 % 09/13/2018 1:[address] [facility] PLT 174 151 - 353 x10'3/uL 09/13/2018 1:[address] [facility] MPV 10.6 9.6 - 12.0 FL 09/13/2018 1:[address] [facility] RBC MORPHOLOGY NORMAL 09/13/2018 1:[address] [facility] PLT MORPH. NORMAL 09/13/2018 1:[address] [facility] WBC MORPHOLOGY NORMAL 09/13/2018 1:[address] [facility] LYMPHOCYTES % 23.8 15.8 - 45.0 % 09/13/2018 1:[address] [facility] NEUTROPHILS % 65.5 42.1 - 71.9 % 09/13/2018 1:20 PM SURVEY RESEARCH TEACHER [facility] MONOCYTES % 7.2 5.7 - 12.5 % 09/13/2018 1:20 PM SURVEY RESEARCH TEACHER [facility] EOSINOPHILS 2.8 0.0 - 5.6 % 09/13/2018 1:[address] [facility] BASOPHILS 0.5 0.0 - 1.3 % 09/13/2018 1:20 PM SURVEY RESEARCH TEACHER [facility] ABS. NEUTROPHILS TOTAL 2.84 1.40 - 6.00 x10'3/uL 09/13/2018 1:20 PM SURVEY RESEARCH TEACHER [facility] IMMATURE GRANS % 0.2 0.0 - 0.5 % 09/13/2018 1:[address] [facility] ABS. LYMPHOCYTES 1.03 0.80 - 4.70 x10'3/uL 09/13/2018 1:[address] [facility] 09/13/2018 12:1 4 PM SURVEY RESEARCH TEACHER 09/13/2018 1:15 PM SURVEY RESEARCH TEACHER us Generic Conversion Md BERUM[facility] LABORATORY Final R esult Performing Organization Address City/State/[facility] Co de Phone Number [facility] [address] [place] [address], documented in this encounter Visit Diagnoses Diagnosis Hyperlipidemia Other and unspecified hyperlipidemia documented in this encounter Care Teams Combination Building Inspector Relationship Specialty Start Date End Date Frieda Wasserman MD PCP - General INTERNAL MEDICINE 08/31/18 02/23/20 Keiry Rucker NP Consulting Physician Det[facility] Facility 10/04/18 04/13/19 documented as of this encounter
--- OUTSIDE RECORDS SUMMARY | 2024-09-21 01:20 | XMS_ITS | Encounter Summary ---
Author Organization [facility] Address [facility] [place] [address] [place] [address] Care Team Providers Care Bar Welder Name Role Phone Frieda Wasserman MD Primary Care Provider Unavailab Keiry Salazar CERTIFIED ART THERAPIST Unavailable [phone] Encounter Details Date Type Department Care Team (Late st Contact Info) Description 06/11/2018 Abstract [facility] [address] [place] [address] Frieda Wasserman MD Social History [...] CDT) WBC 3.5(L) 4.4 - 11.0 x10'3/uL 06/11/2018 2:02 PM [facility] RBC 4.44(L) 4.50 - 5.10 x10'6/uL 06/11/2018 2:02 PM [facility] HGB 13.8 12.3 - 15.3 G/DL 06/11/2018 2:02 PM [facility] HCT 41.4 35.9 - 44.6 % 06/11/2018 2:02 PM [facility] MCV 93.2 80.0 - 96.0 FL 06/11/2018 2:02 PM [facility] MCH 31.1(H) 25.3 - 30.9 PG 06/11/2018 2:02 PM [facility] MCHC 33.3 31.0 - 34.1 G/DL 06/11/2018 2:02 PM [facility] RDW 14.4 12.4 - 15.1 % 06/11/2018 2:02 PM [facility] PLT 160 151 - 353 x10'3/uL 06/11/2018 2:02 PM [facility] MPV 11.0 9.6 - 12.0 FL 06/11/2018 2:02 PM [facility] RBC MORPHOLOGY NORMAL 06/11/2018 2:02 PM [facility] PLT MORPH. NORMAL 06/11/2018 2:02 PM [facility] WBC MORPHOLOGY NORMAL 06/11/2018 2:02 PM [facility] LYMPHOCYTES % 29.5 15.8 - 45.0 % 06/11/2018 2:02 PM [facility] NEUTROPHILS % 60.0 42.1 - 71.9 % 06/11/2018 2:02 PM T [facility] MONOCYTES % 6.1 5.7 - 12.5 % 06/11/2018 2:02 PM CDT [facility] EOSINOPHILS 3.5 0.0 - 5.6 % 06/11/2018 2:02 PM CDT [facility] BASOPHILS 0.9 0.0 - 1.3 % 06/11/2018 2:02 PM CDT [facility] ABS. NEUTROPHILS TOTAL 2.08 1.40 - 6.00 x10'3/uL 06/11/2018 2:02 PM CDT [facility] IMMATURE GRANS % 0.0 0.0 - 0.5 % 06/11/2018 2:02 PM CDT [facility] ABS. LYMPHOCYTES 1.02 0.80 - 4.70 x10'3/uL 06/11/2018 2:02 PM CDT [facility] 06/11/2018 1:38 PM CDT 06/11/2018 1:39 PM CDT us Generic Conversion Md BERUMEN LABORATORY Final R esult [facility] [address] [place] [address], [place] [phone] documented in this encounter Visit Diagnoses Diagnosis Type 2 diabetes mellitus without complications (CMS/HCC [facility]) Type II or unspecified type diabetes mellitus without mention of complication, not stated as uncontrolled documented in this encounter Care Teams Bar Welder Relationship Specialty Start Date End Date Frieda Wasserman MD PCP - General INTERNAL MEDICINE 08/31/18 02/23/20 Keiry Rucker NP Consulting Physician [facility] 10/04/18 04/13/19 documented as of this encounter
--- OUTSIDE RECORDS SUMMARY | 2024-09-21 01:20 | XMS_ITS | Encounter Summary ---
Author Organization [facility] Address [address] [place] [address] [place] [address] Care Team Providers Care President Educational Institution Name Role Phone Unavailable Primary Care Provider Unavailabl e Encounter Details Date Type Department Care Team (Latest Contact Info) Description 01/15/2018 Abstract [facility] Social History Tobacco Use [...]
--- OUTSIDE RECORDS SUMMARY | 2024-09-21 01:20 | XMS_ITS | Encounter Summary ---
Author Organization [facility] Address [address] [place] [address] [place] [address] Care Team Providers Care Mulcher Operator Name Role Phone Unavailable Primary Care Provider Unavailabl e Encounter Details Date Type Department Care Team (Latest Contact Info) Description 05/07/2018 Abstract [facility] Medical Group Frieda Wasserman [...] AM CDT) HGB A1C 7.0(H) <5.7 % [facility] T O EPIC CONVERSION Comment: Result Comment: ?? INCREASED RISK OF DIABETES <5.7% ?NON-DIABETES 5.7-6.4% INCREASED RISK FOR FUTURE DIABETES > OR = 6.5 CONSISTENT WITH DIABETES ?? STANDARDS OF MEDICAL CARE IN DIABETES-2010 DIABETES CARE, 33(SUPP 1): S1-S61,2010 05/07/2018 10:5 7 AM CDT 05/07/2018 10:57 AM CDT Narrative [facility] TO EPIC CONVERSION - 05/07/2018 12:54 PM CDT Result Communication: No patient communication needed at this time us Frieda Wasserman MD LABORATORY Final Result [facility] TO EPIC CONVERSION documented in this encounter Visit Diagnoses Not on filedocumented in this encounter
--- OUTSIDE RECORDS SUMMARY | 2024-09-21 01:20 | XMS_ITS | Encounter Summary ---
Author Organization [facility] Address [address] [place] [address] [place] [address] Care Team Providers Care Electrophysiology Nurse Practitioner Name Role Phone Frieda Wasserman MD Primary Care Provider Unavailab Keiry Salazar NURSE FIRST ASSIST Unavailable [phone] Encounter Details Date Type Department Care Team (Late st Contact Info) Description 01/04/2019 Abstract [facility] [address] [place] [address] Frieda Wasserman MD Social History [...] in this encounter Results * VITAMIN B-12 (01/04/2019 9:43 AM CDT) VITAMIN B12 S/P/B 082 110 - 943 PG/ML 01/04/2019 10:59 AM CDT [facility] SERUM SPECIMEN / Unknown 01/04/2019 9:43 AM CDT 01/04/2019 9:44 AM CDT us Generic Conversion Md BERUM[facility] LABORATORY Final R esult Performing Organization Address [facility]/ZIP Co de Phone Number [facility] [address] [place] [address], * (ABNORMAL) VITAMIN D, 25 OH (01/04/2019 9:43 AM CDT) VITAMIN D 25 HYDROXY S/P/B 18(L) 30 - 100 NG/ML 01/04/2019 6:20 PM CDT [facility] Comment: ?INTERPRETATION ?DEFICIENT ??<20 ? INSUFFICIENT 20-29 ?SUFFICIENT 30-100 01/04/2019 9:43 AM CDT 01/04/2019 9:44 AM CDT us Generic Conversion Md BER[facility]EN LABORATORY Final R esult Performing Organization Address City/[facility] Co de Phone Number [facility] [address] [place] [address], documented in this encounter Visit Diagnoses Diagnosis Vitamin B12 deficiency anemia due to intrinsic factor deficiency Pernicious anemia documented in this encounter Care Teams Electrophysiology Nurse Practitioner Relationship Specialty Start Date End Date Frieda Wasserman MD PCP - General INTERNAL MEDICINE 08/31/18 02/23/20 Keiry Rucker NP Consulting Physician [facility] 10/04/18 04/13/19 documented as of this encounter
--- OUTSIDE RECORDS SUMMARY | 2024-09-21 01:20 | XMS_ITS | Encounter Summary ---
Author Organization [facility] Address [address] [place] [address] [place] [address] Care Team Providers Care City Jailer Name Role Phone Beni Cevallos MD Primary Care Provider Unavailab Keiry Salazar SENIOR LEAD SOFTWARE ENGINEER Unavailable Reason for Visit * Reason Comments Follow Up Routine Encounter Details Date Type Department Care Team (Late st Contact Info) Description 10/07/2018 11:00 AM [facility] [id number] [place] [id number] Keiry Rucker, SENIOR LEAD SOFTWARE ENGINEER [address] [place] [address] Follow Up (Routine ) Social History Tobacco Use Types Packs/Day Years Used Date Smoking Tobacco: Unknown Comments Unknown Sex and Gender Information Value Date Recorded Sex Assigned at Not on file Legal Sex Female 10:25 PM CDT Gender Identity Not on file Sexual Orientation Not on file documented as of this encounter Last Filed Vital Signs Vital Sign Reading Time Taken Comments Blood Pressure 124/82 10/07/2018 8:00 AM [facility] Pulse 72 10/07/2018 8:00 AM [facility] [employer] Temperature 36.4 ??C (97.5 ??F) 10/07/2018 8:00 AM CS T Respiratory Rate 16 10/07/2018 8:00 AM [facility] [employer] Oxygen Saturation 96% 10/07/2018 8:00 AM [facility] Inhaled Oxygen Concentration - - Weight - - Height - - Body Mass Index - - documented in this encounter Progress Notes * Keiry Rucker, SENIOR LEAD SOFTWARE ENGINEER - 10/07/2018 11:00 AM CST Reason for Visit: Follow Up (Routine ) History of Present Illness: 78 y/o female. Seen today at [facility]. Seen for follow-up pre-existing medical health conditions. Senile Alz Dementia: Advanced dementia on Namenda and aricept regimen. Patient requires complete care. Lyrica at . ?? HTN: BP is stable. Managed on Norvasc, Lisinopril, and Metoprolol. ?? HLD: Resumes Fenofibrate. DMII: Resumes Amaryl 0.5 mg QAM. A1C 6.8%. Bun/Creat 20/1.2. Stable. ?? MS: Non weight bearing. Pt is total care and Joana Lift. ?? Pressure ulcer: SWM continues to treat Coccyx wound. Wound therapy per specialty resumes. Client has resting schedule & laying down after meals to attempt enhanced healing. ROS: Review of Systems Unable to perform [...] as needed., Disp: , Rfl: ??? lisinopril 20 MG [...] Disp: , Rfl: ??? vitamin D2, ergocalciferol, 32010 UNITS capsule, Take 1 capsule by mouth [...] She appears well-nourished. No distress. HENT: Head: Normocephalic and atraumatic. Eyes: Conjunctivae are normal. Neck: Neck supple. Cardiovascular: Normal rate, regular rhythm and normal heart sounds. Pulmonary/Chest: Effort normal and breath sounds normal. Abdominal: Soft. Bowel sounds are normal. Musculoskeletal: Non-Ambulatory Joana. Neurological: She is alert. Skin: Coccyx wound Refer to HPI and SWM documentation. Psychiatric: She has a normal mood and affect. Nursing note and vitals reviewed. Filed Vitals: 10/07/18 0800 BP: 124/82 Pulse: 72 Resp: 16 Temp: 97.5 ??F (36.4 ??C) SpO2: 96% Impression/Plan: Encounter Diagnoses Name SNOMED CT(R) Primary? 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 Type 2 diabetes mellitus with diabetic polyneuropathy, without long-term current use of insulin([facility]) TYPE 2 DIABETES MELLITUS ??? Generalized multiple sclerosis ([facility]) MULTIPLE SCLEROSIS ??? Essential hypertension ESSENTIAL HYPERTENSION ??? Pressure injury of coccygeal region, stage 2 PRESSURE ULCER OF BACK ??? Hyperlipidemia, unspecified hyperlipidemia type HYPERLIPIDEMIA -NNO. -Resume current care regimen. -RTC 1 month, unless needed sooner. Keiry Rucker Referring Provider: PCP: BENI CEVALLOS MD [facility] [employer] documented in this encounter Plan of Treatment Not on file documented as of this encounter Visit Diagnoses Diagnosis Late onset Alzheimer's disease without behavioral disturbance ([facility])- Primary Type 2 diabetes mellitus with diabetic polyneuropathy, without long-term current use of insulin ([facility]) Generalized multiple sclerosis ([facility]) Multiple sclerosis Essential hypertension Unspecified essential hypertension Pressure injury of coccygeal region, stage 2 ([facility]) Hyperlipidemia, unspecified hyperlipidemia type documented in this encounter Care Teams City Jailer Relationship Specialty Start Date End Date Beni Cevallos MD PCP - General INTERNAL MEDICINE 08/31/18 02/23/20 Keiry Rucker NP Consulting Physician [facility] 10/04/18 04/13/19 documented as of this encounter
--- OUTSIDE RECORDS SUMMARY | 2024-09-21 01:21 | XMS_ITS | Encounter Summary ---
Author Organization [facility] Address [facility] [facility] [place] [address] [place] [address] Care Team Providers Care Public Works Inspector Name Role Phone Unavailable Primary Care Provider Unavailabl e Encounter Details Date Type Department Care Team (Late st Contact Info) Description 03/04/2017 Abstract [facility] Medical Group Family & Internal Medicine - [place] [address] [place] [address] Sosa Ellis NP Social History [...] Sign Reading Time Taken Comments Blood Pressure 104/52 03/04/2017 11:07 AM CDT Pulse 56 03/04/2017 11:07 AM CDT Temperature - - Respiratory Rate - - Oxygen Saturation - - Inhaled Oxygen Concentration - - Weight 75.9 kg (167 lb 4 oz) 03/04/2017 11:07 AM CDT Height 167.6 cm (5' 6 ) 03/04/2017 11:07 AM CDT Body Mass Index 26.99 03/04/2017 11:07 AM CDT documented in this encounter Progress Notes * Sosa Ellis NP - 03/04/2017 1:00 PM CDT Reason For Visit Jail Visit Chief Complaint Routine fci visit. FCS History of Present Illness Multiple Sclerosis (Follow-Up): [...] regimen, but she denies medication side effects. Incontinence, Urinary (Follow-Up): The patient is being seen for follow-up of urge incontinence andPt has been using Cath at all times related to retention. Interval Events: P . Medications: the patient is adherent to her medication regimen. Hyperlipidemia (Follow-Up): The patient states her hyperlipidemia has been poorly controlled since the last visit. Symptoms: the patient's LDL goal is 100 mg/dL. the patient's last LDL was 18 mg/dL. TG are over 300and the Ldl is too low. The patient is due for a lipid panel. Additional History: Pt has had fenofibrate D/c and will need to restart this. Hypertension (Follow-Up): The patient presents for follow-up [...] her medication regimen. She denies medication side effects. Vitamin D Deficiency: The patient is being [...] (919.0) 2. Bowel incontinence (787.60) (R15.9) 3. Dementia (294.20) (F03.90) 4. 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 Generalized multiple sclerosis (340) (G35) 6. Hyperlipidemia (272.4) (E78.5) 7. Hypertension (401.9) (I10) 8. Impaired weight bearing (V49.89) (R26.89) 9. Insomnia (780.52) (G47.00) 10. Mild vitamin D deficiency (268.9) (E55.9) 11. Open wound of toe with complication (893.1) (S91.109A) ?? medial toe Great toe. 12. Overgrown toenails (703.8) (L60.2) 13. Red eyes (379.93) (H57.8) 14. Toe injury (959.7) (S99.929A) 15. Unintended weight loss (783.21) (R63.4) 16. Urinary incontinence (788.30) (R32) Past Medical History 1. History of Chronic indwelling allen catheter (V45.89) (Z92.89) 2. History of Decubitus ulcer of buttock, stage 2 (707.05,707.22) (L89.302) 3. History of Decubitus ulcer, heel (707.07,707.20) (L89.609) 4. History of diabetes mellitus (V12.29) (Z86.39) 5. History of Ingrowing nail with infection (703.0) (L60.0) Family History Mother 1. No pertinent family history Social History ?? Marital History - (V61.03) ?? Unknown if ever smoked Current Meds 1. Akwa Tears 1.4 % SOLN; INSTILL 1 DROP 3 times daily; Therapy: (Recorded:30Jul2015) to Recorded 2. AmLODIPine Besylate 10 MG Oral Tablet; Take 1 tablet daily; Therapy: 30Jul2015 to Recorded 3. Aspirin 81 MG TABS; TAKE 1 TABLET DAILY; Therapy: 10Aug2013 to (Evaluate:05Aug2014) Recorded 4. Atorvastatin Calcium 10 MG Oral Tablet; TAKE 1 TABLET DAILY; Therapy: (Recorded:30Jul2015) to Recorded 5. Colace 100 MG Oral Capsule; TAKE ONE CAPSULE BY MOUTH TWICE DAILY; Therapy: (Recorded:30Jul2015) to Recorded 6. Cyanocobalamin 1000 MCG/ML Injection Solution; INJECT 1 ML INTRAMUSCULARLY ONCE A MONTH; Therapy: (Recorded:30Jul2015) to Recorded 7. Donepezil HCl - 10 MG Oral Tablet; TAKE 1 TABLET BY MOUTH AT BEDTIME; Therapy: 24Mar2013 to (Evaluate:15Aug2014) Recorded 8. Fenofibrate 150 MG Oral Capsule; TAKE 200 MG Daily; Therapy: 30Jul2015 to Recorded 9. Florastor 250 MG Oral Capsule; TAKE 1 CAPSULE TWICE DAILY; Therapy: (Recorded:30Jul2015) to Recorded 10. Klor-Con M20 20 MEQ Oral Tablet Extended Release; TAKE ONE TABLET BY MOUTH EVERY DAY; Therapy: (Recorded:30Jul2015) to Recorded 11. Lisinopril 20 MG Oral Tablet; TAKE 1 TABLET BY MOUTH EVERY DAY; Therapy: 11Mar2013 to (Evaluate:47Lwx4795); Last Rx:30Jul2015 Ordered 12. Lyrica 150 MG Oral Capsule; Take one capsule by mouth every morning and at bedtime; Therapy: 53Lio8398 to (Evaluate:61Ypo7050); Last Rx:[id number] Ordered 13. MetFORMIN HCl - 500 MG Oral Tablet; TAKE 1 TABLET TWICE DAILY; Therapy: 09Jul2013 to (Last Rx:[id number]) Ordered 14. Metoprolol Tartrate 25 MG Oral Tablet; TAKE TABLET Twice daily; Therapy: (Recorded:30Jul2015) to Recorded 15. Milk of Magnesia 1200 MG/15ML Oral Suspension; TAKE 30 ML Daily PRN; Therapy: (Recorded:30Jul2015) to Recorded 16. MiraLax Oral Powder; DISSOLVE 17 GMS (1 CAPFUL) IN 4 OR 6 OUNCES OF WATER/JUICE AND DRINK ONCE DAILY; Therapy: (Recorded:30Jul2015) to Recorded 17. Multi-Vitamin Oral Tablet; TAKE 1 TABLET DAILY; Therapy: 30Jul2015 to (Evaluate:26Kqm6450) Recorded 18. Namenda XR 28 MG Oral Capsule Extended Release 24 Hour; ONE DAILY; Therapy: 21Jun2013 to (Last Rx:[id number]) Ordered 19. NovoFine Autocover 30G X 8 MM Miscellaneous; Therapy: 04Mar2013 to Recorded 20. Siltussin SA 100 MG/5ML Oral Syrup; TAKE 5 ML EVERY 4 HOURS NEEDED; Therapy: (Recorded:30Jul2015) to Recorded 21. Victoza 18 MG/3ML SOLN; INJECT 0.6MG SUBCUTANEOUSLY DAILY; Therapy: 23Mar2013 to (Last Rx:[id number]) Ordered 22. Vitamin D 2000 UNIT Oral Capsule; take 1 tab Daily; Therapy: 03Mar2016 to (Evaluate:51Zri5311); Last Rx:03Mar2016 Ordered Allergies 1. Flagyl CAPS Vitals Recorded: 04Mar2017 11:07AM Temperature 97.7 F Heart Rate 56 Respiration 18 Systolic 104 Diastolic 52 O2 Saturation 98, RA Height 5 ft 6 in Weight 167 lb 4 oz BMI Calculated 27 BSA Calculated 1.85 Physical Exam Constitutional General appearance: Abnormal. chronically ill and appears tired, but well developed, well nourishedand well hydrated. Ears, Nose, Mouth, and Throat External inspection [...] is mild) Abdomen Abdomen: Non-tender, no masses. Musculoskeletal Gait and station: Abnormal. (Patient is nonambulatory, nonweightbearing. Has to have Joana lift fortransfers) Inspection/palpation of joints, bones, and muscles: Abnormal. Generalized muscle atrophy and weakness with arthritis. Skin Skin and subcutaneous tissue: Normal without rashes or lesions. Examination of the skin for lesions: Abnormal. PU on right gluteal fold area, two small open areas.5 cm diameter each within close proximity of each other. Neurologic Cranial nerves: Cranial nerves 2-12 intact. Psychiatric Orientation to person, place, and time: Abnormal. Patient is disoriented to place and time but not to person. Mood and affect: Normal. Assessment 1. 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 Hyperlipidemia (272.4) (E78.5) 3. Generalized multiple sclerosis (340) (G35) 4. Hypertension (401.9) (I10) 5. Insomnia (780.52) (G47.00) 6. Impaired weight bearing (V49.89) (R26.89) 7. Mild vitamin D deficiency (268.9) (E55.9) 8. Urinary incontinence (788.30) (R32) Plan Pt is doing well at this time Pt review of meds, tx and labs no changes made at this time No changes in the POS at this time Continue with routine NH visits monthly. Signatures Electronically signed by : Sosa Ellis NP; Mar 07 2017 8:40PM CARDIAC RN (Author) documented in this encounter Plan of Treatment Not on file documented as of this encounter Visit Diagnoses Not on filedocumented in this encounter
--- OUTSIDE RECORDS SUMMARY | 2024-09-21 01:21 | XMS_ITS | Encounter Summary ---
Author Organization [facility] Address [address] [place] [address] [place] [address] Care Team Providers Care Water Resources Project Manager Name Role Phone Unavailable Primary Care Provider Unavailabl e Encounter Details Date Type Department Care Team (Latest Contact Info) Description 06/12/2017 Abstract [facility] Medical Group Social History Tobacco Use Types [...]
--- OUTSIDE RECORDS SUMMARY | 2024-09-21 01:21 | XMS_ITS | Encounter Summary ---
Author Organization [facility] Address [address] [facility] [place] [address] [place] [address] Care Team Providers Care Profile Trimmer Name Role Phone Unavailable Primary Care Provider Unavailabl e Encounter Details Date Type Department Care Team (Latest Contact Info) Description 09/15/2017 Abstract [facility] Medical Group Aleksandr Reynolds MD Social History Tobacco Use Types Packs/Day [...] Procedure Name Priority Date/Time Associated Diagnosis Comments IMAGE GENERIC Routine 09/15/2017 2:08 PM TWISTING PRESS OPERATOR documented in this encounter Results * IMAGE GENERIC (09/15/2017 2:08 PM TWISTING PRESS OPERATOR) Anatomical Region Laterality Modality Other 09/15/2017 2:08 PM TWISTING PRESS OPERATOR 09/15/2017 2:08 PM TWISTING PRESS OPERATOR Narrative 09/15/2017 2:16 PM TWISTING PRESS OPERATOR MARY SANTOYO ? ADMIT/SERVICE DATE: 09/15/17 ?? ACCT: [id number] ?DISCHARGE DATE: ?? : 1940 ??SEX: F ?ORD SITE: [facility] ?? PT TYPE: REG CLI ? ORDERING MD: ALEKSANDR REYNOLDS MD ? STUDY DATE ? REPORT # ?ORDER # ? EXT ORDER ID ?? 09/15/17 ? [id number] ? [id number] ?[id number] ? PROC CODE: ? SPEECHSWAL ? PROCEDURE DESCRIPTION: ?? FL SPEECH SWALLOW STUDY ? IMAGING STUDIES: ??FL SPEECH SWALLOW STUDY ? DATE: ??09/15/2017 1:00 PM ? COMPARISON STUDIES: NO PREVIOUS AVAILABLE. ? CLINICAL HISTORY: ??OTHER - DYSPHAGIA ? TECHNIQUE: ??FLUOROSCOPY WAS PROVIDED WHILE THE PATIENT INGESTED MULTIPLE FOOD CONSISTENCIES STUFFED WITH BARIUM UNDER THE SUPERVISION OF THE SPEECH THERAPIST. ? FLUOROSCOPY TIME: 2.2 MINUTES ? RADIATION DOSE INDEX: 14.6 MGY. ? FINDINGS AND IMPRESSION: ? 1. ??EARLY SPILLOVER INTO THE VALLECULAE, POOR OROPHARYNGEAL FUNCTION. ? 2. ??PENETRATION WITH THIN CONSISTENCIES BUT NO EVIDENCE OF ASPIRATION NOTED DURING THE EXAM. ? 3. ??THE LARGEST PENETRATION NOTED WITH NECTAR CONSISTENCIES. ? 4. ??PLEASE REFER TO SPEECH THERAPY REPORT FOR FURTHER DETAILS ? ELECTRONICALLY SIGNED BY FINN LEVINE MD ON 09/15/2017 2:11 PM ? Procedure Note Adam Oleary MD - 07/21/2018 MARY SANTOYO ADMIT/SERVICE DATE:09/15/17 ACCT: [id number] DISCHARGE DATE: : 1940 SEX: F ORD SITE: [facility] PT TYPE: REG CLI ORDERING MD:ALEKSANDR REYNOLDS MD STUDY DATE REPORT # ORDER # EXT ORDER ID 09/15/17 [id number] PROC CODE: SPEECHSWAL PROCEDURE DESCRIPTION: FL SPEECH SWALLOW STUDY IMAGING STUDIES: FL SPEECH SWALLOW STUDY DATE: 09/15/2017 1:00 PM COMPARISON STUDIES: NO PREVIOUS AVAILABLE. CLINICAL HISTORY: OTHER - DYSPHAGIA TECHNIQUE: FLUOROSCOPY WAS PROVIDED WHILE THE PATIENT INGESTED MULTIPLEFOOD CONSISTENCIES STUFFED WITH BARIUM UNDER THE SUPERVISION OF THE SPEECH THERAPIST. FLUOROSCOPY TIME: 2.2 MINUTES RADIATION DOSE INDEX: 14.6 MGY. FINDINGS AND IMPRESSION: 1. EARLY SPILLOVER INTO THE VALLECULAE, POOR OROPHARYNGEAL FUNCTION. 2. PENETRATION WITH THIN CONSISTENCIES BUT NO EVIDENCE OF ASPIRATIONNOTED DURING THE EXAM. 3. THE LARGEST PENETRATION NOTED WITH NECTAR CONSISTENCIES. 4. PLEASE REFER TO SPEECH THERAPY REPORT FOR FURTHER DETAILS ELECTRONICALLY SIGNED BY FINN LEVINE MD ON 09/15/2017 2:11 PM us Aleksandr Reynolds MD SCANNING Final Re sult documented in this encounter Visit Diagnoses Not on filedocumented in this encounter
--- OUTSIDE RECORDS SUMMARY | 2024-09-21 01:21 | XMS_ITS | Encounter Summary ---
Author Organization [facility] Address [address] [place] [address] [place] [address] Care Team Providers Care Blind Slat Stapling Machine Operator Name Role Phone Unavailable Primary Care Provider Unavailabl e Encounter Details Date Type Department Care Team (Latest Contact Info) Description 07/17/2017 Abstract [facility] Medical Group Social History Tobacco Use [...]
--- OUTSIDE RECORDS SUMMARY | 2024-09-21 01:21 | XMS_ITS | Encounter Summary ---
Author Organization [facility] Address [address] [place] [address] [place] [address] Care Team Providers Care Creative Services Intern Name Role Phone Unavailable Primary Care Provider Unavailabl e Encounter Details Date Type Department Care Team (Latest Contact Info) Description 10/02/2017 Abstract [facility] Medical Group Social History Tobacco Use [...]
--- OUTSIDE RECORDS SUMMARY | 2024-09-21 01:21 | XMS_ITS | Encounter Summary ---
Author Organization [facility] Address [facility] [facility] [place] [address] [place] [address] Care Team Providers Care Director General Name Role Phone Unavailable Primary Care Provider Unavailabl e Encounter Details Date Type Department Care Team (Late st Contact Info) Description 12/23/2017 Abstract [facility] Medical Group Family & Internal Medicine - [place] [address] [place] [address] Sosa Ellis NP Social History [...] Sign Reading Time Taken Comments Blood Pressure 114/82 12/23/2017 10:42 AM CDT Pulse 84 12/23/2017 10:42 AM CDT Temperature - - Respiratory Rate - - Oxygen Saturation - - Inhaled Oxygen Concentration - - Weight 75.8 kg (167 lb 2.1 oz) 12/23/2017 10:42 AM CDT Height 167.6 cm (5' 6 ) 12/23/2017 10:42 AM CDT Body Mass Index 26.98 12/23/2017 10:42 AM CDT documented in this encounter Progress Notes * Sosa Ellis NP - 12/23/2017 10:20 AM CDT Reason For Visit Care Home Visit Chief Complaint Routine F/u FCS History of Present Illness Multiple Sclerosis [...] medication regimen. She denies medication side effects.. Diabetes Type II (Follow-Up): The patient states she has been stable with her Type II Diabetes control since the last visit Daily FBS accuck have been good. Last A1c in December shows 6.8% acceptable for this pt. Comorbid Illnesses: hypertension, hyperlipidemia and obesity. She has no known diabetic co mplications. Symptoms: stable numbness of the feet, stable foot ulcer, denies foot pain and denies vomiting. Home monitoring: The patient checks her blood sugars regularly. Glycemic control has been good.. Medications: the patient is adherent with her medication regimen. She denies medication side effects.. The patient is doing well with her diabetes goals. Incontinence, Urinary (Follow-Up): The patient is being seen for follow-up of urge incontinence andPt has been using Cath at all times related to retention. Interval Events: P . Medications: the patient is adherent to her medication regimen. Review of Systems See HPI for pertinent [...] TABLET DAILY; Therapy: (Recorded:30Jul2015) to Recorded 5. Arnoldo Antifungal 2 % External Cream; APPLY SPARINGLY TO AFFECTED AREA(S) TWICE DAILY; Therapy: 06Oct2017 to Recorded 6. Colace 100 MG Oral Capsule; TAKE ONE CAPSULE BY MOUTH TWICE DAILY; Therapy: (Recorded:30Jul2015) to Recorded 7. Cyanocobalamin 1000 MCG/ML Injection Solution; INJECT 1 ML INTRAMUSCULARLY ONCE A MONTH; Therapy: (Recorded:30Jul2015) to Recorded 8. Donepezil HCl - 10 MG Oral Tablet; TAKE 1 TABLET BY MOUTH AT BEDTIME; Therapy: 24Mar2013 to (Evaluate:15Aug2014) Recorded 9. Fenofibrate Micronized 200 MG Oral Capsule; TAKE 1 CAPSULE Daily; Therapy: 06Oct2017 to Recorded 10. Fish Oil 1000 MG Oral Capsule; TAKE 2 CAPSULE Daily; Therapy: 06Oct2017 to Recorded 11. Florastor 250 MG Oral Capsule; TAKE 1 CAPSULE TWICE DAILY; Therapy: (Recorded:30Jul2015) to Recorded 12. Klor-Con M20 20 MEQ Oral Tablet Extended Release; TAKE ONE TABLET BY MOUTH EVERY DAY; Therapy: (Recorded:30Jul2015) to Recorded 13. Klor-Con Sprinkle 10 MEQ Oral Capsule Extended Release; Therapy: 02Oct2017 to Recorded 14. Lisinopril 20 MG Oral Tablet; TAKE 1 TABLET BY MOUTH EVERY DAY; Therapy: 11Mar2013 to (Evaluate:48Fia5301); Last Rx:30Jul2015 Ordered 15. Loratadine 10 MG Oral Tablet; TAKE 1 TABLET DAILY; Therapy: 06Oct2017 to Recorded 16. Lyrica 150 MG Oral Capsule; Take one capsule by mouth every morning and at bedtime; Therapy: 52Fok2050 to (Evaluate:28Dec2017); Last Rx:[id number] Ordered 17. Magnesium 27 500 (27 Mg) MG Oral Tablet; Take 1 tablet twice daily; Therapy: 06Oct2017 to Recorded 18. MetFORMIN HCl - 500 MG Oral Tablet; TAKE 1 TABLET TWICE DAILY; Therapy: 09Jul2013 to (Last Rx:[id number]) Ordered 19. Metoprolol Tartrate 25 MG Oral Tablet; TAKE TABLET Twice daily; Therapy: (Recorded:30Jul2015) to Recorded 20. Milk of Magnesia 1200 MG/15ML Oral Suspension; TAKE 30 ML Daily PRN; Therapy: (Recorded:30Jul2015) to Recorded 21. MiraLax Oral Powder; DISSOLVE 17 GMS (1 CAPFUL) IN 4 OR 6 OUNCES OF WATER/JUICE AND DRINK ONCE DAILY; Therapy: (Recorded:30Jul2015) to Recorded 22. Multi-Vitamin Oral Tablet; TAKE 1 TABLET DAILY; Therapy: 30Jul2015 to (Evaluate:29Aug2015) Recorded 23. Namenda XR 28 MG Oral Capsule Extended Release 24 Hour; ONE DAILY; Therapy: 65Xma1278 to (Last Rx:[id number]) Ordered 24. NovoFine Autocover 30G X 8 MM; Therapy: 04Mar2013 to Recorded 25. Siltussin SA 100 MG/5ML Oral Syrup; TAKE 5 ML EVERY 4 HOURS NEEDED; Therapy: (Recorded:30Jul2015) to Recorded 26. Thera-mill Oral Tablet; TAKE 1 TABLET DAILY; Therapy: 06Oct2017 to Recorded Allergies 1. Flagyl CAPS Vitals Recorded: 23Dec2017 10:42AM Temperature 97.7 F Heart Rate 84 Respiration 16 Systolic 114 Diastolic 82 Height 5 ft 6 in Weight 167 lb 2 oz BMI Calculated 26.97 BSA Calculated 1.85 Physical Exam Constitutional General [...] person.. Mood and affect: Normal. Assessment 1. Generalized multiple sclerosis (340) (G35) 2. 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 Hyperlipidemia (272.4) (E78.5) 4. Hypertension (401.9) (I10) 5. Unintended weight loss (783.21) (R63.4) Plan 1) Review of Meds, tx, and labs have been done. 2) Reconciliation of medication 3) Pt is stable on the current Plan of Care 4) Will continue to see pt on routine monthly visit. Signatures Electronically signed by : Sosa Ellis NP; Dec 26 2017 2:03PM BUILDER OPERATOR (Author) documented in this encounter Plan of Treatment Not on file documented as of this encounter Visit Diagnoses Not on filedocumented in this encounter
--- OUTSIDE RECORDS SUMMARY | 2024-09-21 01:21 | XMS_ITS | Encounter Summary ---
Author Organization [facility] Address [address] [address] [place] [address] Care Team Providers Care Experienced Truck Driver Name Role Phone Frieda Wasserman MD Primary Care Provider Unavailab Keiry Salazar MEDICAL SCIENTIFIC OFFICER Unavailable [phone] Encounter Details Date Type Department Care Team (Late st Contact Info) Description 09/15/2017 Abstract [facility] [address] [place], [place] [id number] Aleksandr Blount MD Social History Tobacco Use Types Packs/Day [...] as of this encounter Visit Diagnoses Diagnosis Other specified symptoms and signs involving the circulatory and respiratory systems documented in this encounter Care Teams Experienced Truck Driver Relationship Specialty Start Date End Date Frieda Wasserman MD PCP - General INTERNAL MEDICINE 08/31/18 02/23/20 Keiry Rucker NP Consulting Physician [facility] 10/04/18 04/13/19 documented as of this encounter
--- OUTSIDE RECORDS SUMMARY | 2024-09-21 01:21 | XMS_ITS | Encounter Summary ---
Author Organization [facility] Address [address] [place] [address] [place] [address] Care Team Providers Care Ciso Name Role Phone Unavailable Primary Care Provider Unavailabl e Encounter Details Date Type Department Care Team (Latest Contact Info) Description 03/13/2017 Abstract [facility] Medical Group Social History Tobacco Use Types [...]
--- OUTSIDE RECORDS SUMMARY | 2024-09-21 01:21 | XMS_ITS | Encounter Summary ---
Author Organization [facility] Address [address] [place] [address] [place] [address] Care Team Providers Care Clinical Data Analyst Name Role Phone Unavailable Primary Care Provider Unavailabl e Encounter Details Date Type Department Care Team (Latest Contact Info) Description 07/20/2017 Abstract [facility] Medical Group Social History Tobacco Use Types [...]
--- OUTSIDE RECORDS SUMMARY | 2024-09-21 01:21 | XMS_ITS | Encounter Summary ---
Author Organization [facility] Address [address] [place] [address] [place] [address] Care Team Providers Care Control Systems Drafting Officer Name Role Phone Unavailable Primary Care Provider Unavailabl e Encounter Details Date Type Department Care Team (Latest Contact Info) Description 11/28/2017 Abstract [facility] Medical Group Social History Tobacco Use Types [...]
--- OUTSIDE RECORDS SUMMARY | 2024-09-21 01:21 | XMS_ITS | Encounter Summary ---
Author Organization [facility] Address [address] [place] [address] [place] [address] Care Team Providers Care Youth Services Specialist Name Role Phone Unavailable Primary Care Provider Unavailabl e Encounter Details Date Type Department Care Team (Latest Contact Info) Description 09/16/2017 Abstract [facility] Medical Group Social History Tobacco Use Types Packs/Day Years Used Date Smoking Tobacco: Never Assessed Comments Unknown Sex and Gender Information Value Date Recorded Sex Assigned at Not on file Legal Sex Female 10:25 PM CDT Gender Identity Not on file Sexual Orientation Not on file documented as of this encounter Progress Notes * Generic Conversion MD Mamta - 09/16/2017 11:56 AM CST Message Recorded as Task Date: 09/16/2017 11:00 AM, Created By: Aleksandr Reynolds Task Name: Call Patient with results Assigned To: Aleksandr Reynolds Regarding Patient: Mary Santoyo, Status: Active Comment: Aleksandr Reynolds - 16 Sep 2017 11:00 AM Patient follow recommendations from speech pathology.reg treatment.of her swallowing. Cassie Hua - 16 Sep 2017 11:56 AM TASK EDITED Tatyana at [facility] informed, v/u Signatures Electronically signed by : Cassie Hua, ; Sep 16 2017 11:56AM PATENT CLERK (Author) * Aleksandr Reynolds MD - 09/16/2017 11:00 AM CST Verified Results FL SPEECH SWALLOW STUDY [id number] 02:08PM Aleksandr Reynolds Test Name Result Flag Reference FL SPEECH SWALLOW STUDY (Report) MARY SANTOYO ADMIT/SERVICE DATE: 09/15/17 ACCT: [id number] DISCHARGE DATE: : 1940 SEX: F [facility]D SITE: [facility] PT TYPE: REG CLI ORDERING MD: ALEKSANDR REYNOLDS MD STUDY DATE REPORT # ORDER # EXT ORDER ID 09/15/17 [id number] PROC CODE: SPEECHSWAL PROCEDURE DESCRIPTION: FL SPEECH SWALLOW STUDY IMAGING STUDIES: FL SPEECH SWALLOW STUDY DATE: 09/15/2017 1:00 PM COMPARISON STUDIES: NO PREVIOUS AVAILABLE. CLINICAL HISTORY: OTHER - DYSPHAGIA TECHNIQUE: FLUOROSCOPY WAS PROVIDED WHILE THE PATIENT INGESTED MULTIPLE FOOD CONSISTENCIES STUFFED WITH BARIUM UNDER THE SUPERVISION OF THE SPEECH THERAPIST. FLUOROSCOPY TIME: 2.2 MINUTES RADIATION DOSE INDEX: 14.6 MGY. FINDINGS AND IMPRESSION: 1. EARLY SPILLOVER INTO THE VALLECULAE, POOR OROPHARYNGEAL FUNCTION. 2. PENETRATION WITH THIN CONSISTENCIES BUT NO EVIDENCE OF ASPIRATION NOTED DURING THE EXAM. 3. THE LARGEST PENETRATION NOTED WITH NECTAR CONSISTENCIES. 4. PLEASE REFER TO SPEECH THERAPY REPORT FOR FURTHER DETAILS ELECTRONICALLY SIGNED BY FINN LEVINE MD ON 09/15/2017 2:11 PM documented in this encounter Plan of Treatment Not on file documented as of this encounter Visit Diagnoses Not on filedocumented in this encounter
--- OUTSIDE RECORDS SUMMARY | 2024-09-21 01:21 | XMS_ITS | Encounter Summary ---
Author Organization [facility] Address [address] [place] [address] [place] [address] Care Team Providers Care Oil Expert Name Role Phone Unavailable Primary Care Provider Unavailabl e Encounter Details Date Type Department Care Team (Late st Contact Info) Description 02/24/2017 Abstract [facility] Family & Internal Medicine - [place] [address] [place] [address] Aleksandr Blount MD Social History Tobacco Use Types Packs/Day Years Used Date Smoking Tobacco: Never Assessed Comments Unknown Sex and Gender Information Value Date Recorded Sex Assigned at Not on file Legal Sex Female 10:25 PM CDT Gender Identity Not on file Sexual Orientation Not on file documented as of this encounter Progress Notes * Aleksandr Blount MD - 02/24/2017 5:15 PM CDT Reason For Visit Assisted Visit Chief Complaint Routine Assisted visit FCS History of Present Illness HPI Free Text: This patient has dementia, the patient is stable and he seems to be comfortable. The patient currently received the care that is necessary, the patient seems to be in no distress. The patient is taking the medications that are prescribed, with no signs of intolerance. Review of Systems See HPI for pertinent positives. Constitutional: negative. ENT: negative. Respiratory: negative. Gastrointestinal: negative. Genitourinary: negative. Musculoskeletal: joint stiffness. Integumentary Patient doesnot ambulate. Psychiatric: dementia. Neurological confusion. Active Problems 1. Abrasion or friction burn [...] BY MOUTH EVERY DAY; Therapy: 11Mar2013 to (Evaluate:88Nmh6916); Last Rx:30Jul2015 Ordered 12. Lyrica 150 MG Oral Capsule; Take one capsule by mouth every morning and at bedtime; Therapy: 32Idp0388 to (Evaluate:13Ior9528); Last Rx:[id number] Ordered 13. MetFORMIN HCl - 500 MG Oral Tablet; TAKE 1 TABLET TWICE DAILY; Therapy: 09Jul2013 to (Last Rx:[id number]) Ordered 14. Metoprolol Tartrate 25 MG Oral [...] TAKE 1 TABLET DAILY; Therapy: 30Jul2015 to (Evaluate:76Dhs1113) Recorded 18. Namenda XR 28 MG Oral Capsule Extended Release 24 Hour; ONE DAILY; Therapy: 21Jun2013 to (Last Rx:[id number]) Ordered 19. NovoFine Autocover 30G X 8 MM Miscellaneous; Therapy: 04Mar2013 to Recorded 20. Siltussin SA 100 MG/5ML Oral Syrup; TAKE 5 ML EVERY 4 HOURS NEEDED; Therapy: (Recorded:30Jul2015) to Recorded 21. Victoza 18 MG/3ML SOLN; INJECT 0.6MG SUBCUTANEOUSLY DAILY; Therapy: 23Mar2013 to (Last Rx:[id number]) Ordered 22. Vitamin D 2000 UNIT Oral Capsule; take 1 tab Daily; Therapy: 03Mar2016 to (Evaluate:77Ngz8574); Last Rx:03Mar2016 Ordered Allergies 1. Flagyl CAPS Physical Exam Constitutional General appearance: No acute distress, well appearing and well nourished. Eyes Conjunctiva and lids: No swelling, erythema or discharge. Pupils and irises: Equal, round and reactive to light. Ears, Nose, Mouth, and Throat External inspection of ears and nose: Normal. Oropharynx: Normal with no erythema, edema, exudate or lesions. Pulmonary Respiratory effort: No increased work of breathing or signs of respiratory distress. Auscultation of lungs: Clear to auscultation. Cardiovascular Auscultation of heart: Abnormal. Regular, occasional ectopic beat. Examination of extremities for edema and/or varicosities: Abnormal. Full range of motion upper extremities; however, she does have some arthritis and some muscle wasting in general. Abdomen Abdomen: Non-tender, no masses. Lymphatic Palpation of lymph nodes in neck: No lymphadenopathy. Musculoskeletal Gait and station: Abnormal. patient does not ambulate. Inspection/palpation of joints, bones, and muscles: Normal. Skin Skin and subcutaneous tissue: Normal without rashes or lesions. Neurologic Cranial nerves: Cranial nerves 2-12 intact. Reflexes: 2+ and symmetric. Psychiatric Orientation to person, place, and time: Abnormal. Mental Status: disoriented to place and disoriented to time, but oriented to person. She's always very serious, don't think she smiles. Mood and affect: Abnormal. Mood and Affect: bizarre, blunted, indifferent, quiet and unemotional. Assessment 1. Hyperlipidemia (272.4) (E78.5) 2. Hypertension (401.9) (I10) 3. Generalized multiple sclerosis (340) (G35) 4. Dementia (294.20) (F03.90) Discussion/Summary The patient is doing fine at this current time , I reviewed the current medication list and I will continue with the same medications and the support needed by the patient to be comfortable and stable. The patient will be monitored closely by my nurse practitioner(Sosa Ellis) and by myself to make sure he or she gets the deserved care.thanks Dr Moraima Blount. Signatures Electronically signed by : Aleksandr Blount M.D.; Feb 28 2017 4:06PM PRESCHOOL ASSISTANT (Author) documented in this encounter Plan of Treatment Not on file documented as of this encounter Visit Diagnoses Not on filedocumented in this encounter
--- OUTSIDE RECORDS SUMMARY | 2024-09-21 01:21 | XMS_ITS | Encounter Summary ---
Author Organization [facility] Address [address] [place] [address] [place] [address] Care Team Providers Care Care Assistant Name Role Phone Unavailable Primary Care Provider Unavailabl e Encounter Details Date Type Department Care Team (Latest Contact Info) Description 09/24/2017 Abstract [facility] Social History Tobacco Use Types Packs/Day Years Used Date Smoking Tobacco: Never Assessed Comments Unknown Sex and Gender Information Value Date Recorded Sex Assigned at Not on file Legal Sex Female 10:25 PM CDT Gender Identity Not on file Sexual Orientation Not on file documented as of this encounter Progress Notes * Aleksandr Blount MD - 09/24/2017 11:02 AM CST Message Recorded as Task Date: 09/23/2017 09:00 AM, Created By: Jolene Walton Task Name: Miscellaneous Assigned To: [facility] Nurse Team Regarding Patient: Emelina Santoyo, Status: In Progress Comment: Jolene Walton - 23 Sep 2017 9:00 AM TASK CREATED Norma [phone] calling for order for a chin tuck for nosey cups needs order today Cassie Hua - 23 Sep 2017 9:43 AM TASK EDITED printed for Cassie Jarrett - 24 Sep 2017 11:05 AM TASK EDITED okay per Dr. Valera for chin tuck and nosey cups, spoke with Norma and informed her Signatures Electronically signed by : Cassie Hua, ; Sep 24 2017 11:05AM FORENSIC PHOTOGRAPHER (Author) documented in this encounter Plan of Treatment Not on file documented as of this encounter Visit Diagnoses Not on filedocumented in this encounter
--- OUTSIDE RECORDS SUMMARY | 2024-09-21 01:21 | XMS_ITS | Encounter Summary ---
Author Organization [facility] Address [address] [place] [address] [place] [address] Care Team Providers Care Rejector Name Role Phone Unavailable Primary Care Provider Unavailabl e Encounter Details Date Type Department Care Team (Latest Contact Info) Description 09/14/2017 Abstract [facility] Social History Tobacco Use Types [...]
--- OUTSIDE RECORDS SUMMARY | 2024-09-21 01:21 | XMS_ITS | Encounter Summary ---
Author Organization [facility] Address [address] [place] [address] [place] [address] Care Team Providers Care Metal Extrusion Supervisor Name Role Phone Unavailable Primary Care Provider Unavailabl e Encounter Details Date Type Department Care Team (Late st Contact Info) Description 06/03/2017 Abstract [facility] Family & Internal Medicine - [place] [address] [place] [address] Sosa Ellis NP Social History [...] Sign Reading Time Taken Comments Blood Pressure 130/82 06/03/2017 11:27 AM CDT Pulse 78 06/03/2017 11:27 AM CDT Temperature - - Respiratory Rate - - Oxygen Saturation - - Inhaled Oxygen Concentration - - Weight 75.4 kg (166 lb 2.1 oz) 06/03/2017 11:27 AM CDT Height 167.6 cm (5' 6 ) 06/03/2017 11:27 AM CDT Body Mass Index 26.81 06/03/2017 11:27 AM CDT documented in this encounter Progress Notes * Sosa Ellis NP - 06/03/2017 11:00 AM CDT Reason For Visit [facility] Visit Chief Complaint Acute snf visit for open area on right gluteal area, FCS. History of Present Illness Diabetes Type II (Follow-Up): The patient states [...] blood sugars regularly. Glycemic control has been good. Medications: the patient is adherent with her medication regimen. She denies medication side effects. The patient is doing well with her diabetes goals. Multiple Sclerosis (Follow-Up): The patient is being [...] BY MOUTH EVERY DAY; Therapy: 11Mar2013 to (Evaluate:59Rlr9835); Last Rx:30Jul2015 Ordered 12. Lyrica 150 MG Oral Capsule; Take one capsule by mouth every morning and at bedtime; Therapy: 66Lic1436 to (Evaluate:14Nci3574); Last Rx:[id number] Ordered 13. MetFORMIN HCl - 500 MG Oral Tablet; TAKE 1 TABLET TWICE DAILY; Therapy: 09Jul2013 to (Last Rx:[id number]) Ordered 14. Metoprolol Tartrate 25 MG Oral Tablet; TAKE TABLET Twice daily; Therapy: (Recorded:30Jul2015) to Recorded 15. Milk of Magnesia 1200 MG/15ML Oral Suspension; TAKE 30 ML Daily PRN; Therapy: (Recorded:30Jul2015) to Recorded 16. MiraLax Oral Powder (Polyethylene Glycol 3350); DISSOLVE 17 GMS (1 CAPFUL) IN 4 OR 6 OUNCES OF WATER/JUICE AND DRINK ONCE DAILY; Therapy: (Recorded:30Jul2015) to Recorded 17. Multi-Vitamin Oral Tablet; TAKE 1 TABLET DAILY; Therapy: 30Jul2015 to (Evaluate:01Mjt0087) Recorded 18. Namenda XR 28 MG Oral Capsule Extended Release 24 Hour; ONE DAILY; Therapy: 21Jun2013 to (Last Rx:[id number]) Ordered 19. NovoFine Autocover 30G X 8 MM Miscellaneous; Therapy: 04Mar2013 to Recorded 20. Siltussin SA 100 MG/5ML Oral Syrup; TAKE 5 ML EVERY 4 HOURS NEEDED; Therapy: (Recorded:30Jul2015) to Recorded 21. Vitamin D 2000 UNIT Oral Capsule; take 1 tab Daily; Therapy: 03Mar2016 to (Evaluate:83Rke1425); Last Rx:03Mar2016 Ordered Allergies 1. Flagyl CAPS Vitals Recorded: 03Jun2017 11:27AM Temperature 97.3 F Heart Rate 78 Respiration 18 Systolic 130 Diastolic 82 Height 5 ft 6 in Weight 166 lb 2 oz BMI Calculated 26.81 BSA Calculated 1.85 Physical Exam Constitutional General [...] person. Mood and affect: Normal. Assessment 1. Generalized multiple sclerosis (340) (G35) 2. Hyperlipidemia (272.4) (E78.5) 3. Hypertension (401.9) (I10) 4. Unintended weight loss (783.21) (R63.4) 5. 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 Bowel incontinence (787.60) (R15.9) 7. Impaired weight bearing (V49.89) (R26.89) Plan Pt is doing well at this time Pt review of meds, tx and labs no changes made at this time No changes in the POS at this time Continue with routine NH visits monthly. Pt is doing well at this time Pt review of meds, tx and labs no changes made at this time No changes in the POS at this time Continue with routine NH visits monthly. Signatures Electronically signed by : Sosa Ellis NP; Jun 08 2017 7:12PM MANAGER EMPLOYEE BENEFITS (Author) documented in this encounter Plan of Treatment Not on file documented as of this encounter Visit Diagnoses Not on filedocumented in this encounter
--- OUTSIDE RECORDS SUMMARY | 2024-09-21 01:21 | XMS_ITS | Encounter Summary ---
Author Organization [facility] Address [address] [place] [address] [place] [address] Care Team Providers Care Evaluation Assistant Name Role Phone Unavailable Primary Care Provider Unavailabl e Encounter Details Date Type Department Care Team (Latest Contact Info) Description 09/17/2017 Abstract [facility] Social History Tobacco Use Types Packs/Day Years Used Date Smoking Tobacco: Never Assessed Comments Unknown Sex and Gender Information Value Date Recorded Sex Assigned at Not on file Legal Sex Female 10:25 PM CDT Gender Identity Not on file Sexual Orientation Not on file documented as of this encounter Progress Notes * Adam Keen Md, MD - 09/17/2017 12:09 PM CST Message Message: chaka Joe at [facility] speech therapist orders for honey thick liquids and chin tuck when swallowing Signatures Electronically signed by : Cassie Hua, ; Sep 17 2017 12:11PM MASON LINER (Author) documented in this encounter Plan of Treatment Not on file documented as of this encounter Visit Diagnoses Not on filedocumented in this encounter
--- OUTSIDE RECORDS SUMMARY | 2024-09-21 01:21 | XMS_ITS | Encounter Summary ---
Author Organization [facility] Address [address] [place] [address] [place] [address] Care Team Providers Care Government Affairs Researcher Name Role Phone Unavailable Primary Care Provider Unavailabl e Encounter Details Date Type Department Care Team (Latest Contact Info) Description 01/16/2017 Abstract [facility] Social History Tobacco Use Types [...]
--- OUTSIDE RECORDS SUMMARY | 2024-09-21 01:21 | XMS_ITS | Encounter Summary ---
Author Organization [facility] Address [address] [place] [address] [place] [address] Care Team Providers Care Wood Web Weaving Machine Operator Name Role Phone Unavailable Primary Care Provider Unavailabl e Encounter Details Date Type Department Care Team (Latest Contact Info) Description 08/24/2017 Abstract [facility] Social History Tobacco Use Types [...]
--- OUTSIDE RECORDS SUMMARY | 2024-09-21 01:21 | XMS_ITS | Encounter Summary ---
Author Organization [facility] Address [facility] [place] [address] [place] [address] Care Team Providers Care Transport Tank Technician Name Role Phone Unavailable Primary Care Provider Unavailabl e Encounter Details Date Type Department Care Team (Late st Contact Info) Description 06/23/2017 Abstract [facility] Family & Internal Medicine - [place] [address] [place] [address] Aleksandr Blount MD Social History [...] Reading Time Taken Comments Blood Pressure 130/82 06/23/2017 11:21 AM CDT Pulse 78 06/23/2017 11:21 AM CDT Temperature - - Respiratory Rate - - Oxygen Saturation - - Inhaled Oxygen Concentration - - Weight - - Height - - Body Mass Index - - documented in this encounter Progress Notes * Aleksandr Blount MD - 06/23/2017 2:40 PM CDT Reason For Visit [facility] Visit Chief Complaint Routine [facility]ci visit FCS History of Present Illness HPI [...] BY MOUTH EVERY DAY; Therapy: 11Mar2013 to (Evaluate:82Iyk6342); Last Rx:30Jul2015 Ordered 12. Lyrica 150 MG Oral Capsule; Take one capsule by mouth every morning and at bedtime; Therapy: 98Hzn1238 to (Evaluate:40Mln2658); Last Rx:[id number] Ordered 13. MetFORMIN HCl - 500 MG Oral Tablet; TAKE 1 TABLET TWICE DAILY; Therapy: 09Jul2013 to (Last Rx:[id number]) Ordered 14. Metoprolol Tartrate 25 MG Oral [...] TAKE 1 TABLET DAILY; Therapy: 30Jul2015 to (Evaluate:51Prj2406) Recorded 18. Namenda XR 28 MG Oral Capsule Extended Release 24 Hour; ONE DAILY; Therapy: 09Zuq6465 to (Last Rx:[id number]) Ordered 19. NovoFine Autocover 30G X 8 MM Miscellaneous; Therapy: 04Mar2013 to Recorded 20. Siltussin SA 100 MG/5ML Oral Syrup; TAKE 5 ML EVERY 4 HOURS NEEDED; Therapy: (Recorded:30Jul2015) to Recorded 21. Vitamin D 2000 UNIT Oral Capsule; take 1 tab Daily; Therapy: 03Mar2016 to (Evaluate:42Ost4991); Last Rx:03Mar2016 Ordered Allergies 1. Flagyl CAPS Vitals Recorded: 23Jun2017 11:21AM Temperature 97.3 F Heart Rate 78 Respiration 18 Systolic 130 Diastolic 82 Physical Exam Constitutional General appearance: No acute [...] blunted, indifferent, quiet and unemotional. Assessment 1. Generalized multiple sclerosis (340) (G35) 2. Hyperlipidemia (272.4) (E78.5) 3. Hypertension (401.9) (I10) 4. Dementia (294.20) (F03.90) Discussion/Summary The patient [...] Electronically signed by : Aleksandr Blount M.D.; Jun 28 2017 1:03PM MIXER TENDER (Author) documented in this encounter Plan of Treatment Not on file documented as of this encounter Visit Diagnoses Not on filedocumented in this encounter
--- OUTSIDE RECORDS SUMMARY | 2024-09-21 01:21 | XMS_ITS | Encounter Summary ---
Author Organization [facility] Address [facility] [facility] [place] [address] [place] [address] Care Team Providers Care Gas Analyst Name Role Phone Unavailable Primary Care Provider Unavailabl e Encounter Details Date Type Department Care Team (Late st Contact Info) Description 09/09/2017 Abstract [facility] Family & Internal Medicine - [place] [address] [place] [address] Sosa Ellis NP Social History [...] Sign Reading Time Taken Comments Blood Pressure 128/91 09/09/2017 10:48 AM SUBWAY TRAIN DRIVER Pulse 84 09/09/2017 10:48 AM SUBWAY TRAIN DRIVER Temperature - - Respiratory Rate - - Oxygen Saturation - - Inhaled Oxygen Concentration - - Weight 74.6 kg (164 lb 6.1 oz) 09/09/2017 10:48 AM SUBWAY TRAIN DRIVER Height 167.6 cm (5' 6 ) 09/09/2017 10:48 AM SUBWAY TRAIN DRIVER Body Mass Index 26.53 09/09/2017 10:48 AM SUBWAY TRAIN DRIVER documented in this encounter Progress Notes * Sosa Ellis NP - 09/09/2017 9:00 AM CST Reason For Visit Group Home Visit Chief Complaint Routine NH Visit. FCS History of Present Illness Multiple Sclerosis [...] medication regimen. She denies medication side effects.. Review of Systems See HPI for pertinent [...] (919.0) 2. Bowel incontinence (787.60) (R15.9) 3. Decubitus ulcer of buttock, stage 2 (707.05,707.22) (L89.302) 4. Dementia (294.20) (F03.90) 5. 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 Generalized multiple sclerosis (340) (G35) 7. Hyperlipidemia (272.4) (E78.5) 8. Hypertension (401.9) (I10) 9. Impaired weight bearing (V49.89) (R26.89) 10. Insomnia (780.52) (G47.00) 11. Mild vitamin D deficiency (268.9) (E55.9) 12. Open wound of toe with complication (893.1) (S91.109A) ?? medial toe Great toe. 13. Overgrown toenails (703.8) (L60.2) 14. Red eyes (379.93) (H57.8) 15. Toe injury (959.7) (S99.929A) 16. Unintended weight loss (783.21) (R63.4) 17. Urinary incontinence (788.30) (R32) Past Medical History [...] TAKE 1 TABLET DAILY; Therapy: 10Aug2013 to (Evaluate:05Qfk5792) Recorded 4. Atorvastatin Calcium 10 MG Oral [...] BY MOUTH AT BEDTIME; Therapy: 24Mar2013 to (Evaluate:92Vco6148) Recorded 8. Fenofibrate 150 MG Oral Capsule; [...] BY MOUTH EVERY DAY; Therapy: 11Mar2013 to (Evaluate:55Mpl4206); Last Rx:30Jul2015 Ordered 12. Lyrica 150 MG Oral Capsule; Take one capsule by mouth every morning and at bedtime; Therapy: 32Yvh2911 to (Evaluate:18Vtw9408); Last Rx:[id number] Ordered 13. MetFORMIN HCl - 500 MG Oral Tablet; TAKE 1 TABLET TWICE DAILY; Therapy: 12Ssq5928 to (Last Rx:[id number]) Ordered 14. Metoprolol Tartrate 25 MG Oral [...] TAKE 1 TABLET DAILY; Therapy: 30Jul2015 to (Evaluate:28Wee8344) Recorded 18. Namenda XR 28 MG Oral Capsule Extended Release 24 Hour; ONE DAILY; Therapy: 21Jun2013 to (Last Rx:[id number]) Ordered 19. NovoFine Autocover 30G X 8 MM; Therapy: 04Mar2013 to Recorded 20. Siltussin SA 100 MG/5ML Oral Syrup; TAKE 5 ML EVERY 4 HOURS NEEDED; Therapy: (Recorded:30Jul2015) to Recorded 21. Vitamin D 2000 UNIT Oral Capsule; take 1 tab Daily; Therapy: 03Mar2016 to (Evaluate:64Rgf8987); Last Rx:03Mar2016 Ordered Allergies 1. Flagyl CAPS Vitals Recorded: 09Sep2017 10:48AM Temperature 97.5 F Heart Rate 84 Respiration 22 Systolic 128 Diastolic 91 Height 5 ft 6 in Weight 164 lb 6 oz BMI Calculated 26.53 BSA Calculated 1.84 Physical Exam Constitutional General appearance: Abnormal. chronically [...] of the skin for lesions: Abnormal. PU have healed over the buttocks still using miraplex for potection of fragile skin.. Neurologic Cranial nerves: Cranial nerves 2-12 intact. Psychiatric Orientation to person, place, and time: Abnormal. Patient is disoriented to place and time but not to person.. Mood and affect: Normal. Assessment 1. Hyperlipidemia (272.4) (E78.5) 2. Hypertension (401.9) (I10) 3. 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 Decubitus ulcer of buttock, stage 2 (707.05,707.22) (L89.302) 5. Generalized multiple sclerosis (340) (G35) 6. Unintended weight loss (783.21) (R63.4) 7. Impaired weight bearing (V49.89) (R26.89) 8. Urinary incontinence (788.30) (R32) Plan 1) Review of Meds, tx, and labs have been done. 2) Reconciliation of medication 3) Pt is stable on the current Plan of Care 4) Will continue to see pt on routine monthly visit. Signatures Electronically signed by : Sosa Ellis NP; Sep 14 2017 7:11PM SUBWAY TRAIN DRIVER (Author) documented in this encounter Plan of Treatment Not on file documented as of this encounter Visit Diagnoses Not on filedocumented in this encounter
--- OUTSIDE RECORDS SUMMARY | 2024-09-21 01:21 | XMS_ITS | Encounter Summary ---
Author Organization [facility] Address [address] [place] [address] [place] [address] Care Team Providers Care Access Manager Name Role Phone Unavailable Primary Care Provider Unavailabl e Encounter Details Date Type Department Care Team (Latest Contact Info) Description 09/30/2017 Abstract [facility] Group Social History Tobacco Use [...]
--- OUTSIDE RECORDS SUMMARY | 2024-09-21 01:21 | XMS_ITS | Encounter Summary ---
Author Organization [facility] Address [facility] [place] [address] [place] [address] Care Team Providers Care Sewer Head Name Role Phone Unavailable Primary Care Provider Unavailabl e Encounter Details Date Type Department Care Team (Late st Contact Info) Description 07/23/2017 Abstract [facility] Medical Group Family & Internal Medicine - [place] [address] [place] [address] Sosa Ellis NP Social History [...] Sign Reading Time Taken Comments Blood Pressure 104/60 07/23/2017 4:09 PM CDT Pulse 60 07/23/2017 4:09 PM CDT Temperature - - Respiratory Rate - - Oxygen Saturation - - Inhaled Oxygen Concentration - - Weight 74.5 kg (164 lb 4 oz) 07/23/2017 4:09 PM CDT Height 167.6 cm (5' 6 ) 07/23/2017 4:09 PM CDT Body Mass Index 26.51 07/23/2017 4:09 PM CDT documented in this encounter Progress Notes * Sosa Ellis NP - 07/23/2017 9:40 AM CDT Reason For Visit Senior Care Visit Chief Complaint Routine custodial visit. FCS History of Present Illness HPI Free Text: Pt is 77 y/o white female, staff report that the use of the duoderm are not working on the wounds. Staff state they are pulling off more skin. Would like to change the treatment to Mepilex. Pt has had issues in the past with low protein. Noted that the pt has recently been taken off the alternatingair mattress and feel that this might be part of the problem since pt does not change position in the bed. Pt now has two areas of stage II pressure ulcer bilateral buttocks parallel to the coccyx. Pt is put to bed during the day for rest of off loading of the weight. pt has edema and is not movingself while up in the chair or when in the bed. Diabetes Type II (Follow-Up): The patient states [...] generalized muscle aches. Integumentary as noted in HPI and see HPI. Psychiatric: insomnia. Hematologic and Lymphatic: as [...] BY MOUTH EVERY DAY; Therapy: 11Mar2013 to (Evaluate:52Fhx5695); Last Rx:30Jul2015 Ordered 12. Lyrica 150 MG Oral Capsule; Take one capsule by mouth every morning and at bedtime; Therapy: 73Asl0735 to (Evaluate:13Aug2017); Last Rx:[id number] Ordered 13. MetFORMIN HCl - 500 MG Oral Tablet; TAKE 1 TABLET TWICE DAILY; Therapy: 09Jul2013 to (Last Rx:[id number]) Ordered 14. Metoprolol Tartrate 25 MG Oral [...] TAKE 1 TABLET DAILY; Therapy: 30Jul2015 to (Evaluate:08Yak2506) Recorded 18. Namenda XR 28 MG Oral Capsule Extended Release 24 Hour; ONE DAILY; Therapy: 21Jun2013 to (Last Rx:[id number]) Ordered 19. NovoFine Autocover 30G X 8 MM; Therapy: 04Mar2013 to Recorded 20. Siltussin SA 100 MG/5ML Oral Syrup; TAKE 5 ML EVERY 4 HOURS NEEDED; Therapy: (Recorded:30Jul2015) to Recorded 21. Vitamin D 2000 UNIT Oral Capsule; take 1 tab Daily; Therapy: 03Mar2016 to (Evaluate:14Xvc1816); Last Rx:03Mar2016 Ordered Allergies 1. Flagyl CAPS Vitals Recorded: 23Jul2017 04:09PM Temperature 97 F Heart Rate 60 Respiration 14 Systolic 104 Diastolic 60 O2 Saturation 96 Height 5 ft 6 in Weight 164 lb 4 oz BMI Calculated 26.51 BSA Calculated 1.84 Physical Exam Constitutional General [...] skin for lesions: Abnormal. PU on right and left gluteal fold area, two small open areas.5 cm diameter each within close proximity of each other. on the left side now open are.5 cmas well. Neurologic Cranial nerves: Cranial nerves 2-12 intact. Psychiatric Orientation to person, place, and time: Abnormal. Patient is disoriented to place and time but not to person. Mood and affect: Normal. Assessment 1. Hypertension (401.9) (I10) 2. Hyperlipidemia (272.4) (E78.5) 3. 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 Generalized multiple sclerosis (340) (G35) 5. Urinary incontinence (788.30) (R32) 6. Mild vitamin D deficiency (268.9) (E55.9) 7. Decubitus ulcer of buttock, stage 2 (707.05,707.22) (L89.302) Plan Treatment change to cleanse with wound cleanser or NS then apply Mepilex to open area change every 72 hours and prn until healed. Have dietary evaluated and add some protein to the pt diet. Reposition pt to reduce pressure. May consider adding order for specialized mattress if the wounds are not improved in couple weeks. Pt is doing well at this time Pt review of meds, tx and labs no changes made at this time No changes in the POS at this time Continue with routine NH visits monthly. Signatures Electronically signed by : Sosa Ellis NP; Jul 26 2017 1:59PM SILK TRIMMER (Author) documented in this encounter Plan of Treatment Not on file documented as of this encounter Visit Diagnoses Not on filedocumented in this encounter
--- OUTSIDE RECORDS SUMMARY | 2024-09-21 01:21 | XMS_ITS | Encounter Summary ---
Author Organization [facility] Address [facility] [place] [address] [place] [address] Care Team Providers Care Edi Coordinator Name Role Phone Unavailable Primary Care Provider Unavailabl e Encounter Details Date Type Department Care Team (Late st Contact Info) Description 10/06/2017 Abstract [facility] Medical Group Family & Internal Medicine - [place] [address] [place] [address] Frieda Wasserman MD Social History [...] Sign Reading Time Taken Comments Blood Pressure 128/68 10/06/2017 2:44 PM CERTIFIED DENTAL ASSISTANT Pulse 76 10/06/2017 2:44 PM CERTIFIED DENTAL ASSISTANT Temperature - - Respiratory Rate - - Oxygen Saturation - - Inhaled Oxygen Concentration - - Weight 76.7 kg (169 lb 2.1 oz) 10/06/2017 2:44 P M CERTIFIED DENTAL ASSISTANT Height 167.6 cm (5' 6 ) 10/06/2017 2:44 PM CERTIFIED DENTAL ASSISTANT Body Mass Index 27.3 10/06/2017 2:44 PM CERTIFIED DENTAL ASSISTANT documented in this encounter Progress Notes * Frieda Wasserman MD - 10/06/2017 9:00 AM CST Chief Complaint skilled nursing visit, routine follow up History of Present Illness HPI Free Text: Emelina is being seen for routine follow up. Denies any issues Dementia: stable complete care, advanced dementia. requires feeding HTN BP has been stable DMII on metformin. controlled MS. non weight bearing Review of Systems Difficult to assess ROS [...] BEDTIME; Therapy: 24Mar2013 to (Evaluate:15Aug2014) Recorded 8. Florastor 250 MG Oral Capsule; TAKE 1 CAPSULE TWICE DAILY; Therapy: (Recorded:30Jul2015) to Recorded 9. Klor-Con M20 20 MEQ Oral Tablet Extended Release; TAKE ONE TABLET BY MOUTH EVERY DAY; Therapy: (Recorded:30Jul2015) to Recorded 10. Lisinopril 20 MG Oral Tablet; TAKE 1 TABLET BY MOUTH EVERY DAY; Therapy: 11Mar2013 to (Evaluate:81Oiv5973); Last Rx:30Jul2015 Ordered 11. Lyrica 150 MG Oral Capsule; Take one capsule by mouth every morning and at bedtime; Therapy: 90Bcn0648 to (Evaluate:68Yju7578); Last Rx:31Jul2017 Ordered 12. MetFORMIN HCl - 500 MG Oral Tablet; TAKE 1 TABLET TWICE DAILY; Therapy: 09Jul2013 to (Last Rx:[id number]) Ordered 13. Metoprolol Tartrate 25 MG Oral Tablet; TAKE TABLET Twice daily; Therapy: (Recorded:30Jul2015) to Recorded 14. Milk of Magnesia 1200 MG/15ML Oral Suspension; TAKE 30 ML Daily PRN; Therapy: (Recorded:30Jul2015) to Recorded 15. MiraLax Oral Powder; DISSOLVE 17 GMS (1 CAPFUL) IN 4 OR 6 OUNCES OF WATER/JUICE AND DRINK ONCE DAILY; Therapy: (Recorded:30Jul2015) to Recorded 16. Multi-Vitamin Oral Tablet; TAKE 1 TABLET DAILY; Therapy: 30Jul2015 to (Evaluate:07Zwf5085) Recorded 17. Namenda XR 28 MG Oral Capsule Extended Release 24 Hour; ONE DAILY; Therapy: 21Jun2013 to (Last Rx:[id number]) Ordered 18. NovoFine Autocover 30G X 8 MM; Therapy: 04Mar2013 to Recorded 19. Siltussin SA 100 MG/5ML Oral Syrup; TAKE 5 ML EVERY 4 HOURS NEEDED; Therapy: (Recorded:30Jul2015) to Recorded 20. Vitamin D 2000 UNIT Oral Capsule; take 1 tab Daily; Therapy: 03Mar2016 to (Evaluate:75Poz8081); Last Rx:03Mar2016 Ordered Allergies 1. Flagyl CAPS Vitals Recorded: 06Oct2017 02:44PM Temperature 98.9 F Heart Rate 76 Respiration 20 Systolic 128 Diastolic 68 Height 5 ft 6 in Weight 169 lb 2 oz BMI Calculated 27.3 BSA Calculated 1.86 Physical Exam Constitutional General appearance: No acute [...] Normal. Assessment 1. Dementia (294.20) (F03.90) 2. 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 Generalized multiple sclerosis (340) (G35) 4. Hypertension (401.9) (I10) Stable. No issues Plan Con't current plan of care Labs and meds reviewed RTC monthly or sooner if needed Signatures Electronically signed by : Frieda Wasserman M.D.; Oct 06 2017 8:10PM CERTIFIED DENTAL ASSISTANT (Author) documented in this encounter Plan of Treatment Not on file documented as of this encounter Visit Diagnoses Not on filedocumented in this encounter
--- OUTSIDE RECORDS SUMMARY | 2024-09-21 01:21 | XMS_ITS | Encounter Summary ---
Author Organization [facility] Address [facility] [facility] [place] [address] [place] [address] Care Team Providers Care Activated Sludge Operator Name Role Phone Unavailable Primary Care Provider Unavailabl e Encounter Details Date Type Department Care Team (Late st Contact Info) Description 11/13/2017 Abstract [facility] Medical Group Family & Internal Medicine - [place] [address] [place] [address] Sosa Ellis NP Social [...] Reading Time Taken Comments Blood Pressure 114/82 11/13/2017 12:19 PM WINDOW SASH INSTALLER Pulse 84 11/13/2017 12:19 PM WINDOW SASH INSTALLER Temperature - - Respiratory Rate - - Oxygen Saturation - - Inhaled Oxygen Concentration - - Weight 75.8 kg (167 lb 2.1 oz) 11/13/2017 12:19 PM WINDOW SASH INSTALLER Height 167.6 cm (5' 6 ) 11/13/2017 12:19 PM WINDOW SASH INSTALLER Body Mass Index 26.98 11/13/2017 12:19 PM WINDOW SASH INSTALLER documented in this encounter Progress Notes * Sosa Ellis NP - 11/13/2017 9:40 AM CST Reason For Visit Longterm Visit Chief Complaint Routine and acute [facility] visit. FCS History of Present Illness Diabetes Type II [...] BY MOUTH EVERY DAY; Therapy: 11Mar2013 to (Evaluate:83Qby2616); Last Rx:30Jul2015 Ordered 15. Loratadine 10 MG Oral Tablet; TAKE 1 TABLET DAILY; Therapy: 06Oct2017 to Recorded 16. Lyrica 150 MG Oral Capsule; Take one capsule by mouth every morning and at bedtime; Therapy: 24Vod7799 to (Evaluate:28Dec2017); Last Rx:[id number] Ordered 17. Magnesium 27 500 (27 Mg) MG Oral Tablet; Take 1 tablet twice daily; Therapy: 06Oct2017 to Recorded 18. MetFORMIN HCl - 500 MG Oral Tablet; TAKE 1 TABLET TWICE DAILY; Therapy: 09Jul2013 to (Last Rx:[id number]) Ordered 19. Metoprolol Tartrate 25 MG Oral [...] TAKE 1 TABLET DAILY; Therapy: 30Jul2015 to (Evaluate:90Qru8432) Recorded 23. Namenda XR 28 MG Oral Capsule Extended Release 24 Hour; ONE DAILY; Therapy: 03Hyj6647 to (Last Rx:[id number]) Ordered 24. NovoFine Autocover 30G X 8 MM; Therapy: 04Mar2013 to Recorded 25. Siltussin SA 100 MG/5ML Oral Syrup; TAKE 5 ML EVERY 4 HOURS NEEDED; Therapy: (Recorded:30Jul2015) to Recorded 26. Thera-mill Oral Tablet; TAKE 1 TABLET DAILY; Therapy: 06Oct2017 to Recorded Allergies 1. Flagyl CAPS Vitals Recorded: 13Nov2017 12:19PM Temperature 97.7 F Heart Rate 84 Respiration [...] the left side now open are.5 cmas well.. Neurologic Cranial nerves: Cranial nerves 2-12 intact. Psychiatric Orientation to person, place, and time: Abnormal. Patient is disoriented to place and time but not to person.. Mood and affect: Normal. Assessment 1. 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 Hyperlipidemia (272.4) (E78.5) 3. Hypertension (401.9) (I10) 4. Generalized multiple sclerosis (340) (G35) 5. Mild vitamin D deficiency (268.9) (E55.9) 6. Impaired weight bearing (V49.89) (R26.89) 7. Bowel incontinence (787.60) (R15.9) 8. Insomnia (780.52) (G47.00) Plan 1) Review of Meds, tx, and labs have been done. 2) Reconciliation of medication 3) Pt is stable on the current Plan of Care 4) Will continue to see pt on routine monthly visit. Signatures Electronically signed by : Sosa Ellis NP; Nov 16 2017 10:36PM WINDOW SASH INSTALLER (Author) documented in this encounter Plan of Treatment Not on file documented as of this encounter Visit Diagnoses Not on filedocumented in this encounter
--- OUTSIDE RECORDS SUMMARY | 2024-09-21 01:21 | XMS_ITS | Encounter Summary ---
Author Organization [facility] Address [address] [facility] [place] [address] [place] [address] Care Team Providers Care Can Conveyor Feeder Name Role Phone Unavailable Primary Care Provider Unavailabl e Encounter Details Date Type Department Care Team (Late st Contact Info) Description 05/06/2017 Abstract [facility] Medical Group Family & Internal Medicine - [place] [address] [place] [address] Sosa Ellis NP Social History [...] Sign Reading Time Taken Comments Blood Pressure 98/58 05/06/2017 9:34 AM CDT Pulse 65 05/06/2017 9:34 AM CDT Temperature - - Respiratory Rate - - Oxygen Saturation - - Inhaled Oxygen Concentration - - Weight 77.2 kg (170 lb 2.1 oz) 05/06/2017 9:34 A M CDT Height 167.6 cm (5' 6 ) 05/06/2017 9:34 AM CDT Body Mass Index 27.46 05/06/2017 9:34 AM CDT documented in this encounter Progress Notes * Sosa Ellis NP - 05/06/2017 9:00 AM CDT Reason For Visit Skilled Nursing Visit Chief Complaint Routine shelter visit, FCS. History of Present Illness Diabetes Type [...] BY MOUTH EVERY DAY; Therapy: 11Mar2013 to (Evaluate:63Psl7780); Last Rx:30Jul2015 Ordered 12. Lyrica 150 MG Oral Capsule; Take one capsule by mouth every morning and at bedtime; Therapy: 16Cng6069 to (Evaluate:08Jul2017); Last Rx:[id number] Ordered 13. MetFORMIN HCl - 500 MG Oral Tablet; TAKE 1 TABLET TWICE DAILY; Therapy: 09Jul2013 to (Last Rx:[id number]) Ordered 14. Metoprolol Tartrate 25 MG Oral [...] TAKE 1 TABLET DAILY; Therapy: 30Jul2015 to (Evaluate:62Bjk3111) Recorded 18. Namenda XR 28 MG Oral Capsule Extended Release 24 Hour; ONE DAILY; Therapy: 21Jun2013 to (Last Rx:[id number]) Ordered 19. NovoFine Autocover 30G X 8 MM Miscellaneous; Therapy: 04Mar2013 to Recorded 20. Siltussin SA 100 MG/5ML Oral Syrup; TAKE 5 ML EVERY 4 HOURS NEEDED; Therapy: (Recorded:30Jul2015) to Recorded 21. Victoza 18 MG/3ML SOLN; INJECT 0.6MG SUBCUTANEOUSLY DAILY; Therapy: 23Mar2013 to (Last Rx:[id number]) Ordered 22. Vitamin D 2000 UNIT Oral Capsule; take 1 tab Daily; Therapy: 03Mar2016 to (Evaluate:43Urx6157); Last Rx:03Mar2016 Ordered Allergies 1. Flagyl CAPS Vitals Recorded: 06May2017 09:34AM Temperature 97.9 F Heart Rate 65 Respiration 16 Systolic 98 Diastolic 58 O2 Saturation 96 Height 5 ft 6 in Weight 170 lb 2 oz BMI Calculated 27.46 BSA Calculated 1.87 Physical Exam Constitutional General appearance: Abnormal. chronically [...] person. Mood and affect: Normal. Assessment 1. Mild vitamin D deficiency (268.9) (E55.9) 2. Hypertension (401.9) (I10) 3. Hyperlipidemia (272.4) (E78.5) 4. Generalized multiple sclerosis (340) (G35) 5. 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 Victoza 18 MG/3ML SOLN Rx By: Sosa Ellis; Dispense: 0 Days ; #:6 ML; Refill: 0; For: PMH: History of diabetes mellitus; MICHAEL = N; Record Pt is doing well at this time Pt review of meds, tx and labs no changes made at this time No changes in the POS at this time Continue with routine NH visits monthly. Signatures Electronically signed by : Sosa Ellis NP; May 06 2017 4:43PM PROGRAM REP (Author) documented in this encounter Plan of Treatment Not on file documented as of this encounter Visit Diagnoses Not on filedocumented in this encounter
--- OUTSIDE RECORDS SUMMARY | 2024-09-21 01:22 | XMS_ITS | Encounter Summary ---
Author Organization [facility] Address [facility] [facility] [place] [address] [place] [address] Care Team Providers Care Gullet Slitter Name Role Phone Unavailable Primary Care Provider Unavailabl e Encounter Details Date Type Department Care Team (Late st Contact Info) Description 11/25/2016 Abstract [facility] Medical Group Family & Internal Medicine - [place] [address] [place] [address] Aleksandr Blount MD Social History Tobacco Use Types Packs/Day Years Used Date Smoking Tobacco: Never Assessed Comments Unknown Sex and Gender Information Value Date Recorded Sex Assigned at Not on file Legal Sex Female 10:25 PM CDT Gender Identity Not on file Sexual Orientation Not on file documented as of this encounter Progress Notes * Aleksandr Blount MD - 11/25/2016 1:00 PM CST Reason For Visit Care Home Visit Chief Complaint Routine Care Home visit FCS History of Present Illness HPI Free Text: This patient has dementia, the patient is stable and he seems to be comfortable. The patient currently received the care that is necessary, the patient seems to be in no distress. The patient is taking the medications that are prescribed, with no signs of intolerance.Mrs. Santoyo is usually very pleasant, She answer questions simple questions Review of Systems See HPI for pertinent [...] (S91.109A) ?? medial toe Great toe. 12. Red eyes (379.93) (H57.8) 13. Unintended weight loss (783.21) (R63.4) 14. Urinary incontinence (788.30) (R32) Past Medical History [...] MG TABS; TAKE 1 TABLET DAILY; Therapy: 64Kwj5086 to (Evaluate:50Hxw4173) Recorded 4. Atorvastatin Calcium 10 MG Oral [...] BY MOUTH AT BEDTIME; Therapy: 24Mar2013 to (Evaluate:89Gpz8519) Recorded 8. Fenofibrate 150 MG Oral Capsule; [...] BY MOUTH EVERY DAY; Therapy: 11Mar2013 to (Evaluate:11Qox9903); Last Rx:[id number] Ordered 12. Lyrica 150 MG Oral Capsule; Take one capsule by mouth every morning and at bedtime; Therapy: 87Dfa1297 to (Evaluate:77Zrv6163); Last Rx:[id number] Ordered 13. MetFORMIN HCl - 500 MG Oral Tablet; TAKE 1 TABLET TWICE DAILY; Therapy: 66Llp7473 to (Last Rx:53Pja1057) Ordered 14. Metoprolol Tartrate 25 MG Oral Tablet; TAKE TABLET Twice daily; Therapy: (Recorded:30Jul2015) to Recorded 15. Milk of Magnesia 1200 MG/15ML Oral Suspension; TAKE 30 ML Daily PRN; Therapy: (Recorded:30Jul2015) to Recorded 16. MiraLax Oral Powder; DISSOLVE 17 GMS (1 CAPFUL) IN 4 OR 6 OUNCES OF WATER/JUICE AND DRINK ONCE DAILY; Therapy: (Recorded:49Hoe8837) to Recorded 17. Multi-Vitamin Oral Tablet; TAKE 1 TABLET DAILY; Therapy: 30Jul2015 to (Evaluate:46Cey3030) Recorded 18. Namenda XR 28 MG Oral Capsule Extended Release 24 Hour; ONE DAILY; Therapy: 48Coh5205 to (Last Rx:[id number]) Ordered 19. NovoFine Autocover 30G X 8 MM Miscellaneous; Therapy: 04Mar2013 to Recorded 20. Siltussin SA 100 MG/5ML Oral Syrup; TAKE 5 ML EVERY 4 HOURS NEEDED; Therapy: (Recorded:30Jul2015) to Recorded 21. Victoza 18 MG/3ML SOLN; INJECT 0.6MG SUBCUTANEOUSLY DAILY; Therapy: 23Mar2013 to (Last Rx:[id number]) Ordered 22. Vitamin D 2000 UNIT Oral Capsule; take 1 tab Daily; Therapy: 03Mar2016 to (Evaluate:41Bys5771); Last Rx:[id number] Ordered 23. CefTRIAXone Sodium 1 GM Injection Solution Reconstituted; Therapy: 09Jun2016 to Recorded 24. Lidocaine HCl - 1 % Injection Solution; Therapy: 09Jun2016 to Recorded Allergies 1. Flagyl CAPS Physical Exam Constitutional [...] don't think she smiles. Mood and affect: Normal. Assessment 1. Hypertension (401.9) (I10) 2. Generalized multiple sclerosis (340) (G35) 3. Dementia (294.20) (F03.90) 4. Hyperlipidemia (272.4) (E78.5) Discussion/Summary The patient is doing fine at this current time , I reviewed the current medication list and I will continue with the same medications and the support needed by the patient to be comfortable and stable. The patient will be monitored closely by my nurse practitioner(Sosa Elils) and by myself to make sure he or she gets the deserved care.thanks Dr Moraima Blount.Continue constant support Signatures Electronically signed by : Aleksandr Blount M.D.; Nov 29 2016 3:39PM FORENSIC CHEMIST (Author) documented in this encounter Plan of Treatment Not on file documented as of this encounter Visit Diagnoses Not on filedocumented in this encounter
--- OUTSIDE RECORDS SUMMARY | 2024-09-21 01:22 | XMS_ITS | Encounter Summary ---
Author Organization [facility] Address [address] [facility] [address] [place] [address] Care Team Providers Care Enroller Name Role Phone Unavailable Primary Care Provider Unavailabl e Encounter Details Date Type Department Care Team (Latest Contact Info) Description 05/08/2015 Abstract [facility] Medical Group Social History Tobacco [...]
--- OUTSIDE RECORDS SUMMARY | 2024-09-21 01:22 | XMS_ITS | Encounter Summary ---
Author Organization [facility] Address [address] [facility] [place] [address] [place] [address] Care Team Providers Care Solid Waste Facility Operator Name Role Phone Unavailable Primary Care Provider Unavailabl e Encounter Details Date Type Department Care Team (Late st Contact Info) Description 04/22/2016 Abstract [facility] Medical Group Family & Internal Medicine - [place] [address] [place] [address] Aleksandr Blount MD Social History Tobacco Use Types Packs/Day Years Used Date Smoking Tobacco: Never Assessed Comments Unknown Sex and Gender Information Value Date Recorded Sex Assigned at Not on file Legal Sex Female 10:25 PM CDT Gender Identity Not on file Sexual Orientation Not on file documented as of this encounter Progress Notes * Aleksandr Blount MD - 04/22/2016 3:15 PM CDT Reason For Visit Snf Visit Chief Complaint Routine Snf visit [facility]CS History of Present Illness HPI [...] (919.0) 2. Bowel incontinence (787.60) (R15.9) 3. History of Cellulitis (682.9) (L03.90) 4. Dementia (294.20) (F03.90) 5. 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 Generalized multiple sclerosis (340) (G35) 7. Hyperlipidemia (272.4) (E78.5) 8. Hypertension (401.9) (I10) 9. Impaired weight bearing (V49.89) (R26.89) 10. Insomnia (780.52) (G47.00) 11. Mild vitamin D deficiency (268.9) (E55.9) 12. Open wound of toe with complication (893.1) (S91.109A) ?? medial toe Great toe. 13. Urinary incontinence (788.30) (R32) Past Medical History 1. History of Cellulitis (682.9) (L03.90) 2. 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 History of Decubitus ulcer of buttock, stage 2 (707.05,707.22) (L89.302) 4. History of Decubitus ulcer, heel (707.07,707.20) (L89.609) 5. History of diabetes mellitus (V12.29) (Z86.39) 6. History of Ingrowing nail with infection (703.0) [...] BY MOUTH EVERY DAY; Therapy: 11Mar2013 to (Evaluate:90Nar0277); Last Rx:30Jul2015 Ordered 12. Lyrica 150 MG Oral Capsule; Take one capsule by mouth every morning and at bedtime; Therapy: 82Cyv5339 to (Evaluate:84Gkl2158); Last Rx:[id number] Ordered 13. MetFORMIN HCl - 500 MG Oral Tablet; TAKE 1 TABLET TWICE DAILY; Therapy: 09Jul2013 to (Last Rx:[id number]) Ordered 14. Metoprolol Tartrate 25 MG Oral [...] TAKE 1 TABLET DAILY; Therapy: 30Jul2015 to (Evaluate:13Isf4458) Recorded 18. Namenda XR 28 MG Oral Capsule Extended Release 24 Hour; ONE DAILY; Therapy: 80Zyd9359 to (Last Rx:[id number]) Ordered 19. NovoFine Autocover 30G X 8 MM Miscellaneous; Therapy: 04Mar2013 to Recorded 20. Siltussin SA 100 MG/5ML Oral Syrup; TAKE 5 ML EVERY 4 HOURS NEEDED; Therapy: (Recorded:30Jul2015) to Recorded 21. Victoza 18 MG/3ML SOLN; INJECT 0.6MG SUBCUTANEOUSLY DAILY; Therapy: 23Mar2013 to (Last Rx:[id number]) Ordered 22. Vitamin D 2000 UNIT Oral Capsule; take 1 tab Daily; Therapy: 03Mar2016 to (Evaluate:65Rtn8022); Last Rx:03Mar2016 Ordered Allergies 1. Flagyl CAPS [...] with neurological manifestations, uncontrolled (250.62) (E11.49,E11.65) 4. Dementia (294.20) (F03.90) 5. Generalized multiple sclerosis (340) (G35) Discussion/Summary The patient is doing fine at [...] Electronically signed by : Aleksandr Blount M.D.; Apr 26 2016 2:36PM PSYCHOLOGICAL EXAMINER (Author) documented in this encounter Plan of Treatment Not on file documented as of this encounter Visit Diagnoses Not on filedocumented in this encounter
--- OUTSIDE RECORDS SUMMARY | 2024-09-21 01:22 | XMS_ITS | Encounter Summary ---
Author Organization [facility] Address [address] [place] [address] [place] [address] Care Team Providers Care Director Of Investigations Name Role Phone Unavailable Primary Care Provider Unavailabl e Encounter Details Date Type Department Care Team (Late st Contact Info) Description 09/23/2016 Abstract [facility] Family & Internal Medicine - [place] [address] [place] [address] Aleksandr Blount MD Social History Tobacco Use Types Packs/Day Years Used Date Smoking Tobacco: Never Assessed Comments Unknown Sex and Gender Information Value Date Recorded Sex Assigned at Not on file Legal Sex Female 10:25 PM CDT Gender Identity Not on file Sexual Orientation Not on file documented as of this encounter Progress Notes * Aleksandr Blount MD - 09/23/2016 3:15 PM CST Chief Complaint Intermediate Visit History of Present Illness HPI Free [...] BY MOUTH AT BEDTIME; Therapy: 24Mar2013 to (Evaluate:05Vdx1875) Recorded 8. Fenofibrate 150 MG Oral Capsule; [...] 1 TABLET BY MOUTH EVERY DAY; Therapy: 86Ara2151 to (Evaluate:95Zpv7203); Last Rx:[id number] Ordered 12. Lyrica 150 MG Oral Capsule; Take one capsule by mouth every morning and at bedtime; Therapy: 93Fsa0949 to (Evaluate:80Ofk2115); Last Rx:[id number] Ordered 13. MetFORMIN HCl - 500 MG Oral Tablet; TAKE 1 TABLET TWICE DAILY; Therapy: 59Zps1222 to (Last Rx:[id number]) Ordered 14. Metoprolol Tartrate 25 MG Oral Tablet; TAKE TABLET Twice daily; Therapy: (Recorded:30Jul2015) to Recorded 15. Milk of Magnesia 1200 MG/15ML Oral Suspension; TAKE 30 ML Daily PRN; Therapy: (Recorded:30Jul2015) to Recorded 16. MiraLax Oral Powder; DISSOLVE 17 GMS (1 CAPFUL) IN 4 OR 6 OUNCES OF WATER/JUICE AND DRINK ONCE DAILY; Therapy: (Recorded:93Kik7233) to Recorded 17. Multi-Vitamin Oral Tablet; TAKE 1 TABLET DAILY; Therapy: 30Jul2015 to (Evaluate:15Avb5213) Recorded 18. Namenda XR 28 MG Oral Capsule Extended Release 24 Hour; ONE DAILY; Therapy: 65Mcs9567 to (Last Rx:[id number]) Ordered 19. NovoFine Autocover 30G X 8 MM Miscellaneous; Therapy: 04Mar2013 to Recorded 20. Siltussin SA 100 MG/5ML Oral Syrup; TAKE 5 ML EVERY 4 HOURS NEEDED; Therapy: (Recorded:30Jul2015) to Recorded 21. Victoza 18 MG/3ML SOLN; INJECT 0.6MG SUBCUTANEOUSLY DAILY; Therapy: 23Mar2013 to (Last Rx:[id number]) Ordered 22. Vitamin D 2000 UNIT Oral Capsule; take 1 tab Daily; Therapy: 03Mar2016 to (Evaluate:50Qhb0428); Last Rx:03Mar2016 Ordered Allergies 1. Flagyl CAPS [...] (401.9) (I10) 2. Hyperlipidemia (272.4) (E78.5) 3. Mild vitamin D deficiency (268.9) (E55.9) 4. 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 Dementia (294.20) (F03.90) Discussion/Summary The patient is [...] Electronically signed by : Aleksandr Blount M.D.; Sep 25 2016 10:53AM SEWER BRICKLAYER (Author) * Aleksandr Blount MD - 09/23/2016 3:15 PM CST Chief Complaint Intermediate Visit. Review of Systems See HPI for pertinent [...] BY MOUTH EVERY DAY; Therapy: 11Mar2013 to (Evaluate:49Ohb8957); Last Rx:30Jul2015 Ordered 12. Lyrica 150 MG Oral Capsule; Take one capsule by mouth every morning and at bedtime; Therapy: 32Fok3798 to (Evaluate:69Ekg4612); Last Rx:52Glw1790 Ordered 13. MetFORMIN HCl - 500 MG Oral Tablet; TAKE 1 TABLET TWICE DAILY; Therapy: 09Jul2013 to (Last Rx:90Rjq1986) Ordered 14. Metoprolol Tartrate 25 MG Oral Tablet; TAKE TABLET Twice daily; Therapy: (Recorded:59Eoz2362) to Recorded 15. Milk of Magnesia 1200 MG/15ML Oral Suspension; TAKE 30 ML Daily PRN; Therapy: (Recorded:51Kbq6237) to Recorded 16. MiraLax Oral Powder; DISSOLVE 17 GMS (1 CAPFUL) IN 4 OR 6 OUNCES OF WATER/JUICE AND DRINK ONCE DAILY; Therapy: (Recorded:16Bpl0198) to Recorded 17. Multi-Vitamin Oral Tablet; TAKE 1 TABLET DAILY; Therapy: 30Jul2015 to (Evaluate:39Rbl3096) Recorded 18. Namenda XR 28 MG Oral Capsule Extended Release 24 Hour; ONE DAILY; Therapy: 36Zjm2700 to (Last Rx:94Itc2302) Ordered 19. NovoFine Autocover 30G X 8 MM Miscellaneous; Therapy: 04Mar2013 to Recorded 20. Siltussin SA 100 MG/5ML Oral Syrup; TAKE 5 ML EVERY 4 HOURS NEEDED; Therapy: (Recorded:80Obn1645) to Recorded 21. Victoza 18 MG/3ML SOLN; INJECT 0.6MG SUBCUTANEOUSLY DAILY; Therapy: 23Mar2013 to (Last Rx:[id number]) Ordered 22. Vitamin D 2000 UNIT Oral Capsule; take 1 tab Daily; Therapy: 03Mar2016 to (Evaluate:10Mfj1208); Last Rx:[id number] Ordered Allergies 1. Flagyl CAPS Physical Exam [...] (401.9) (I10) 2. Hyperlipidemia (272.4) (E78.5) 3. Mild vitamin D deficiency (268.9) (E55.9) 4. 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 Dementia (294.20) (F03.90) Discussion/Summary The patient is [...] Electronically signed by : Aleksandr Blount M.D.; Sep 25 2016 10:53AM SEWER BRICKLAYER (Author) documented in this encounter Plan of Treatment Not on file documented as of this encounter Visit Diagnoses Not on filedocumented in this encounter
--- OUTSIDE RECORDS SUMMARY | 2024-09-21 01:22 | XMS_ITS | Encounter Summary ---
Author Organization [facility] Address [address] [place] [address] [place] [address] Care Team Providers Care Asphalt Distributor Operator Name Role Phone Unavailable Primary Care Provider Unavailabl e Encounter Details Date Type Department Care Team (Latest Contact Info) Description 01/02/2017 Abstract [facility] Social History Tobacco Use [...]
--- OUTSIDE RECORDS SUMMARY | 2024-09-21 01:22 | XMS_ITS | Encounter Summary ---
Author Organization [facility] Address [address] [place] [address] [place] [address] Care Team Providers Care Program Control Analyst Name Role Phone Unavailable Primary Care Provider Unavailabl e Encounter Details Date Type Department Care Team (Late st Contact Info) Description 10/23/2015 Abstract [facility] Family & Internal Medicine - [place] [address] [place] [address] Aleksandr Blount MD Social History Tobacco Use Types Packs/Day Years Used Date Smoking Tobacco: Never Assessed Comments Unknown Sex and Gender Information Value Date Recorded Sex Assigned at Not on file Legal Sex Female 10:25 PM CDT Gender Identity Not on file Sexual Orientation Not on file documented as of this encounter Progress Notes * Aleksandr Blount MD - 10/23/2015 4:00 PM CST Reason For Visit Half-Way Visit Chief Complaint Routine Half-Way visit [facility]CS History of Present Illness HPI [...] (919.0) 2. Bowel incontinence (787.60) (R15.9) 3. Bruising (924.9) (T14.8) 4. Cellulitis (682.9) (L03.90) 5. Decubitus ulcer of buttock, stage 2 (707.05,707.22) (L89.302) 6. Decubitus ulcer, heel (707.07,707.20) (L89.609) 7. Dementia (294.20) (F03.90) 8. Diabetes mellitus (250.00) (E11.9) 9. 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 Fungal infection (117.9) (B49) 11. Generalized multiple sclerosis (340) (G35) 12. Hyperlipidemia (272.4) (E78.5) 13. Hypertension (401.9) (I10) 14. Impaired weight bearing (V49.89) (R26.89) 15. Ingrowing nail with infection (703.0) (L60.0) 16. Insomnia (780.52) (G47.00) 17. Mild vitamin D deficiency (268.9) (E55.9) 18. Open wound of toe with complication (893.1) (S91.109A) ?? medial toe Great toe. 19. Urine incontinence (788.30) (R32) Family History Mother 1. No pertinent family history Social History ?? Marital History - (V61.03) ?? Unknown if ever smoked Current Meds 1. Akwa Tears 1.4 % SOLN; INSTILL 1 DROP 3 times daily; Therapy: (Recorded:30Jul2015) to Recorded 2. AmLODIPine Besylate 10 MG Oral Tablet; Take 1 tablet daily; Therapy: 30Jul2015 to Recorded 3. Aspirin 81 MG Oral Tablet; TAKE 1 TABLET DAILY; Therapy: 10Aug2013 to [...] BY MOUTH EVERY DAY; Therapy: 11Mar2013 to (Evaluate:18Lpb9290); Last Rx:30Jul2015 Ordered 12. Lyrica 150 MG Oral Capsule; Take one capsule by mouth every morning and at bedtime; Therapy: 45Ufc8093 to (Evaluate:17Pyu9490); Last Rx:10Oct2015 Ordered 13. MetFORMIN HCl - 500 MG Oral Tablet; TAKE 1 TABLET TWICE DAILY; Therapy: 09Jul2013 to (Last Rx:[id number]) Ordered 14. Metoprolol Tartrate 25 MG Oral [...] TAKE 1 TABLET DAILY; Therapy: 30Jul2015 to (Evaluate:44Yrm1495) Recorded 18. Namenda XR 28 MG Oral Capsule Extended Release 24 Hour; ONE DAILY; Therapy: 61Ouv6786 to (Last Rx:[id number]) Ordered 19. NovoFine Autocover 30G X 8 MM Miscellaneous; Therapy: 04Mar2013 to Recorded 20. Siltussin SA 100 MG/5ML Oral Syrup; TAKE 5 ML EVERY 4 HOURS NEEDED; Therapy: (Recorded:30Jul2015) to Recorded 21. Victoza 18 MG/3ML SOLN; INJECT 0.6MG SUBCUTANEOUSLY DAILY; Therapy: 23Mar2013 to (Last Rx:[id number]) Ordered Allergies 1. Flagyl CAPS Physical Exam [...] disoriented to time, but oriented to person. Mood and affect: Normal. Assessment 1. Diabetes mellitus (250.00) (E11.9) 2. Dementia (294.20) (F03.90) 3. Generalized multiple sclerosis (340) (G35) 4. Hyperlipidemia (272.4) (E78.5) Discussion/Summary The patient [...] Blount. Signatures Electronically signed by : Aleksandr Bluont M.D.; Oct 27 2015 3:31PM TIE SAWYER (Author) documented in this encounter Plan of Treatment Not on file documented as of this encounter Visit Diagnoses Not on filedocumented in this encounter
--- OUTSIDE RECORDS SUMMARY | 2024-09-21 01:22 | XMS_ITS | Encounter Summary ---
Author Organization [facility] Address [address] [place] [address] [place] [address] Care Team Providers Care Auction Assistant Name Role Phone Unavailable Primary Care Provider Unavailabl e Encounter Details Date Type Department Care Team (Latest Contact Info) Description 05/10/2015 Abstract [facility] Social History Tobacco [...]
--- OUTSIDE RECORDS SUMMARY | 2024-09-21 01:22 | XMS_ITS | Encounter Summary ---
Author Organization [facility] Address [address] [place] [address] [place] [address] Care Team Providers Care Corporate Physical Security Supervisor Name Role Phone Unavailable Primary Care Provider Unavailabl e Encounter Details Date Type Department Care Team (Late st Contact Info) Description 02/19/2016 Abstract [facility] Family & Internal Medicine - [place] [address] [place] [address] Aleksandr Blount MD Social History Tobacco Use Types Packs/Day Years Used Date Smoking Tobacco: Never Assessed Comments Unknown Sex and Gender Information Value Date Recorded Sex Assigned at Not on file Legal Sex Female 10:25 PM CDT Gender Identity Not on file Sexual Orientation Not on file documented as of this encounter Progress Notes * Generic Conversion MD Mamta - 02/19/2016 2:45 PM CDT Message Recorded as Task Date: 02/19/2016 04:16 PM, Created By: Aleksandr Blount Task Name: Personal Assigned To: Amber Pringle Regarding Patient: Emelina Santoyo, Status: Active Comment: Aleksandr Blount - 19 Feb 2016 4:16 PM TASK CREATED please make sure she takes 2000 iu of vit d daily she is in [facility]. Amber Pringle - 20 Feb 2016 4:19 PM TASK EDITED 02/20/16 Amber Guy - 03 Mar 2016 5:40 PM TASK EDITED [facility] 1. Vitamin D 2000 UNIT Oral Capsule; take 1 tab Daily Rx By: Aleksandr Blount; Dispense: 90 Days ; #:90 Capsule; Refill: 0; For: Mild vitamin D deficiency; MICHAEL = N; Record; Last Updated By: Amber Pringle; 03/03/2016 5:40:08 PM Signatures Electronically signed by : Amber Pringle R.N.; Mar 03 2016 5:40PM WEB PRODUCTION MANAGER (Author) * Aleksandr Blount MD - 02/19/2016 2:45 PM CDT Reason For Visit Penitentiary Visit Chief Complaint Routine Penitentiary visit [facility] History of Present Illness HPI Free Text: This patient has dementia, the patient is stable and he seems to be comfortable. The patient currently received the care that is necessary, the patient seems to be in no distress. The patient is taking the medications that are prescribed, with no signs of intolerance. This patient has dementia, the patient is [...] BY MOUTH EVERY DAY; Therapy: 11Mar2013 to (Evaluate:57Ttf6095); Last Rx:30Jul2015 Ordered 12. Lyrica 150 MG Oral Capsule; Take one capsule by mouth every morning and at bedtime; Therapy: 12Tla6609 to (Evaluate:90Gur4535); Last Rx:[id number] Ordered 13. MetFORMIN HCl - 500 MG Oral Tablet; TAKE 1 TABLET TWICE DAILY; Therapy: 09Jul2013 to (Last Rx:[id number]) Ordered 14. Metoprolol Tartrate 25 MG Oral [...] TAKE 1 TABLET DAILY; Therapy: 30Jul2015 to (Evaluate:68Tzj9662) Recorded 18. Namenda XR 28 MG Oral Capsule Extended Release 24 Hour; ONE DAILY; Therapy: 21Jun2013 to (Last Rx:[id number]) Ordered 19. NovoFine Autocover 30G X 8 MM Miscellaneous; Therapy: 04Mar2013 to Recorded 20. Siltussin SA 100 MG/5ML Oral Syrup; TAKE 5 ML EVERY 4 HOURS NEEDED; Therapy: (Recorded:30Jul2015) to Recorded 21. Victoza 18 MG/3ML SOLN; INJECT 0.6MG SUBCUTANEOUSLY DAILY; Therapy: 23Mar2013 to (Last Rx:30Ujw8240) Ordered Allergies 1. Flagyl CAPS Physical Exam [...] 1. Generalized multiple sclerosis (340) (G35) 2. Dementia (294.20) (F03.90) 3. Hypertension (401.9) (I10) 4. Hyperlipidemia (272.4) (E78.5) 5. Mild vitamin D deficiency (268.9) (E55.9) Discussion/Summary The patient is doing fine at [...] signed by : Aleksandr Blount M.D.; Feb 19 2016 4:23PM WEB PRODUCTION MANAGER (Author) documented in this encounter Plan of Treatment Not on file documented as of this encounter Visit Diagnoses Not on filedocumented in this encounter
--- OUTSIDE RECORDS SUMMARY | 2024-09-21 01:22 | XMS_ITS | Encounter Summary ---
Author Organization [facility] Address [address] [place] [address] [place] [address] Care Team Providers Care Bevel Gear Generator Operator Name Role Phone Unavailable Primary Care Provider Unavailabl e Encounter Details Date Type Department Care Team (Late st Contact Info) Description 01/16/2016 Abstract [facility] Medical Group Family & Internal Medicine - [place] [address] [place] [address] Sosa Ellis NP Social History [...] Sign Reading Time Taken Comments Blood Pressure 97/62 01/16/2016 9:04 AM CDT Pulse 72 01/16/2016 9:04 AM CDT Temperature - - Respiratory Rate - - Oxygen Saturation - - Inhaled Oxygen Concentration - - Weight 74.5 kg (164 lb 4 oz) 01/16/2016 9:04 AM CDT Height 167.6 cm (5' 6 ) 01/16/2016 9:04 AM CDT Body Mass Index 26.51 01/16/2016 9:04 AM CDT documented in this encounter Progress Notes * Sosa Ellis NP - 01/16/2016 9:15 AM CDT Reason For Visit Snf Visit Chief Complaint senior living visit. FCS History of Present Illness HPI Free Text: Pt reports today sleeping well, has hx of recent GB surgery with no problems since then. Appetite is good, feeds self with staff encouragement. Incontinent of B & B Using joana lift to transfer from bed to chair. No falls and not open areas at this time on the skin. Denies pain. Multiple Sclerosis (Follow-Up): The patient is being [...] patient is adherent to her medication regimen. Alzheimers Disease (Follow-Up): The patient is being seen for follow-up of mixed dementia. The patient reports doing well and more conversive today. Interval symptoms: stable memory loss, stable confusion, stable cognitive impairment, denies agitation, denies aggressiveness, denies wandering and worsened activities of daily living impairment. Associated symptoms: incontinence and sleep disturbance. Medications: the patient is adherent to her medication regimen, but she denies medication side effects. Disease management: the patient is doing well with her goals. Hyperlipidemia (Follow-Up): The patient states her hyperlipidemia [...] (919.0) 2. Bowel incontinence (787.60) (R15.9) 3. Cellulitis (682.9) (L03.90) 4. 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 Decubitus ulcer of buttock, stage 2 [...] (S91.109A) ?? medial toe Great toe. 19. Urinary incontinence (788.30) (R32) Family History Mother 1. [...] BY MOUTH EVERY DAY; Therapy: 11Mar2013 to (Evaluate:52Oru0140); Last Rx:30Jul2015 Ordered 12. Lyrica 150 MG Oral Capsule; Take one capsule by mouth every morning and at bedtime; Therapy: 82Usk7578 to (Evaluate:90Cvh3108); Last Rx:10Oct2015 Ordered 13. MetFORMIN HCl - 500 MG Oral Tablet; TAKE 1 TABLET TWICE DAILY; Therapy: 09Jul2013 to (Last Rx:40Kxu4541) Ordered 14. Metoprolol Tartrate 25 MG Oral [...] TAKE 1 TABLET DAILY; Therapy: 30Jul2015 to (Evaluate:94Pvo5714) Recorded 18. Namenda XR 28 MG Oral Capsule Extended Release 24 Hour; ONE DAILY; Therapy: 21Jun2013 to (Last Rx:[id number]) Ordered 19. NovoFine Autocover 30G X 8 MM Miscellaneous; Therapy: 04Mar2013 to Recorded 20. Siltussin SA 100 MG/5ML Oral Syrup; TAKE 5 ML EVERY 4 HOURS NEEDED; Therapy: (Recorded:30Jul2015) to Recorded 21. Victoza 18 MG/3ML SOLN; INJECT 0.6MG SUBCUTANEOUSLY DAILY; Therapy: 23Mar2013 to (Last Rx:[id number]) Ordered Allergies 1. Flagyl CAPS Vitals Recorded: 16Jan2016 09:04AM Temperature 97.1 F Heart Rate 72 Respiration 18 Systolic 97 Diastolic 62 O2 Saturation 96 Height 5 ft 6 [...] person. Mood and affect: Normal. Assessment 1. Hyperlipidemia (272.4) (E78.5) 2. 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 Generalized multiple sclerosis (340) (G35) 4. Impaired weight bearing (V49.89) (R26.89) 5. Hypertension (401.9) (I10) 6. Urinary incontinence (788.30) (R32) 7. Dementia (294.20) (F03.90) 8. Bowel incontinence (787.60) (R15.9) Plan Meds, tx and labs were reviewed. No changes in POC at this time Pt is stable and pleasant Does little for self, poor motivaiton Continue routine monthly visits Discussion/Summary ly Signatures Electronically signed by : Sosa Ellis NP; Jan 21 2016 2:48PM RISK MANAGEMENT ANALYST (Author) documented in this encounter Plan of Treatment Not on file documented as of this encounter Visit Diagnoses Not on filedocumented in this encounter
--- OUTSIDE RECORDS SUMMARY | 2024-09-21 01:22 | XMS_ITS | Encounter Summary ---
Author Organization [facility] Address Formerly [facility] [address] [place] [address] Care Team Providers Care Angledozer Operator Name Role Phone Unavailable Primary Care Provider Unavailabl e Encounter Details Date Type Department Care Team (Late st Contact Info) Description 05/30/2015 Abstract [facility] Medical Group Family & Internal Medicine - [place] [address] [place] [address] Sosa Ellis NP Social History [...] Sign Reading Time Taken Comments Blood Pressure 114/58 2015 10:23 AM CDT Pulse 78 2015 10:23 AM CDT Temperature - - Respiratory Rate - - Oxygen Saturation - - Inhaled Oxygen Concentration - - Weight 76.4 kg (168 lb 7 oz) 2015 10:23 AM CDT Height 167.6 cm (5' 6 ) 2015 10:23 AM CDT Body Mass Index 27.19 2015 10:23 AM CDT documented in this encounter Progress Notes * Sosa Ellis NP - 05/30/2015 11:00 AM CDT Reason For Visit Correction Visit Chief Complaint MCFP visit. FCS History of Present Illness HPI Free Text: Pt is sleeping well at night, most of the time occasionally will have trouble sleeping reportedly because unable to stop thinking. Pt has poor appetite really pt states has been this way her entire life. Pt is continent of urine and BM. Pt is able to stand and walk short distances. Pt is doing wellwith memory stable. Is able to recognize staff and family has some short term memory. Pt has not had any falls and has no open areas on the skin. Multiple Sclerosis (Follow-Up): The patient is being seen for follow-up of multiple sclerosis. The patient reports doing poorly. She has had no significant interval events. Interval symptoms: worsened paresthesias, worsened limb weakness, worsened limb spasticity and worsened loss of balance. Associated symptoms: no urinary retention. Medications: the patient is adherent to her medication regimen, but she denies medication side effects. Dementia (Follow-Up): Her dementia has been stable since the last visit. She has no comorbid illnesses. She has no significant interval events. Symptoms: Worsened memory impairment, denies agitation, denies aggression, denies depression, denies sleep disturbances, denies wandering, denies delusions, denies difficulty finding desired words and stable pt has inability to perform ADLs. Hyperlipidemia (Follow-Up): The patient states her hyperlipidemia has been poorly controlled since the last visit. Symptoms: The patient's LDL goal is 100 mg/dL. The patient's last LDL was 18 mg/dL. TG [...] She has no significant interval events. Symptoms: Stable impaired vision, stable dyspnea, stable chest pain, stable intermittent leg claudication and stable lower extremity edema. Associated symptoms include no headache, no focal neurologic deficits and no memory loss. Blood pressure control has been good. Medications: The patient is adherent with her medication regimen. She denies medication side effects. Review of Systems See HPI for pertinent positives. Constitutional: as noted in HPI and fatigue. Head and Face: negative. Eyes: negative. ENT: negative. Cardiovascular: as noted in HPI. Respiratory: negative. Gastrointestinal: negative. Genitourinary: as noted in HPI and incontinent of urine and BM. Musculoskeletal: as noted in HPI, pain in other joints and generalized muscle aches. Integumentary negative. Psychiatric: insomnia. Hematologic and Lymphatic: as noted in HPI. Neurological As Noted in HPI, confusion, numbness in legs and leg weakness. Endocrine As Noted in HPI. Active Problems 1. Bowel incontinence (787.60) (R15.9) 2. Bruising (924.9) (T14.8) 3. Cellulitis (682.9) (L03.90) 4. Decubitus ulcer of buttock, stage 2 (707.05,707.22) (L89.302) 5. Decubitus ulcer, heel (707.07,707.20) (L89.609) 6. Dementia (294.20) (F03.90) 7. Diabetes mellitus (250.00) (E11.9) 8. 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 Fungal infection (117.9) (B49) 10. Generalized multiple sclerosis (340) (G35) 11. Hyperlipidemia (272.4) (E78.5) 12. Hypertension (401.9) (I10) 13. Impaired weight bearing (V49.89) (Z91.89) 14. Ingrowing nail with infection (703.0) (L60.0) 15. Insomnia (780.52) (G47.00) 16. Mild vitamin D deficiency (268.9) (E55.9) 17. Open wound of toe with complication (893.1) (S91.109A) ?? medial toe Great toe. 18. Urine incontinence (788.30) (R32) Family History Mother 1. No pertinent family history Social History ?? Marital History - (V61.03) ?? Unknown if ever smoked Current Meds 1. Aspirin 81 MG Oral Tablet; TAKE 1 TABLET DAILY; Therapy: 10Aug2013 to (Evaluate:05Aug2014) Recorded 2. Donepezil HCl - 10 MG Oral Tablet; TAKE 1 TABLET BY MOUTH AT BEDTIME; Therapy: 24Mar2013 to (Evaluate:15Aug2014) Recorded 3. Fenofibrate 145 MG Oral Tablet; TAKE 1 TABLET DAILY WITH FOOD; Therapy: 30Nov2013 to (Evaluate:28Apr2015); Last Rx:28Jan2015 Ordered 4. Fish Oil 1000 MG Oral Capsule; one capsule two times per day; Therapy: 28Jan2015 to (Last Rx:28Jan2015) Ordered 5. Lisinopril 5 MG Oral Tablet; TAKE 1 TABLET DAILY; Therapy: 11Mar2013 to (Evaluate:15Aug2014) Recorded 6. Lyrica 150 MG Oral Capsule; Take 1 capsule twice daily; Therapy: 12Jan2013 to (Evaluate:31Jul2015); Last Rx:[id number] Ordered 7. MetFORMIN HCl - 500 MG Oral Tablet; TAKE 1 TABLET TWICE DAILY; Therapy: 09Jul2013 to (Last Rx:[id number]) Ordered 8. Namenda XR 28 MG Oral Capsule Extended Release 24 Hour; ONE DAILY; Therapy: 21Jun2013 to (Last Rx:[id number]) Ordered 9. NovoFine Autocover 30G X 8 MM Miscellaneous; Therapy: 04Mar2013 to Recorded 10. Simvastatin 20 MG Oral Tablet; TAKE 1 TABLET DAILY AT BEDTIME; Therapy: 28Jan2015 to (Evaluate:30Apr2015); Last Rx:30Jan2015 Ordered 11. Victoza 18 MG/3ML SOLN; INJECT 0.6MG SUBCUTANEOUSLY DAILY; Therapy: 23Mar2013 to (Last Rx:[id number]) Ordered Allergies 1. Flagyl CAPS Vitals Recorded: 31May2015 10:23AM Temperature 96.8 F Heart Rate 78 Respiration 18 Systolic 114 Diastolic 58 O2 Saturation 96 Height 5 ft 6 in Weight 168 lb 7 oz BMI Calculated 27.19 BSA Calculated 1.86 Physical Exam Constitutional General appearance: Abnormal. 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 Dementia (294.20) (F03.90) 5. Generalized multiple sclerosis (340) (G35) Plan Pt is stable. continues to have poor appetite and is very thin. Dietary supplements have been offered but pt reports has always been thin Review of the meds, tx. and labs. ordered CBC, CMP, every 6 months No changes in other POC Routine NH visit on monthly basis Signatures Electronically signed by : Sosa Ellis NP; Jun 01 2015 2:22PM ONLINE COMMUNICATIONS SPECIALIST (Author) documented in this encounter Plan of Treatment Not on file documented as of this encounter Visit Diagnoses Not on filedocumented in this encounter
--- OUTSIDE RECORDS SUMMARY | 2024-09-21 01:22 | XMS_ITS | Encounter Summary ---
Author Organization [facility] Address [address] [place] [address] [place] [address] Care Team Providers Care Screw Machine Operator Name Role Phone Unavailable Primary Care Provider Unavailabl e Encounter Details Date Type Department Care Team (Latest Contact Info) Description 08/27/2016 Abstract [facility] Medical Group Social History Tobacco Use Types [...]
--- OUTSIDE RECORDS SUMMARY | 2024-09-21 01:22 | XMS_ITS | Encounter Summary ---
Author Organization [facility] Address [address] [facility] [place] [address] [place] [address] Care Team Providers Care Virtual Classroom Manager Name Role Phone Unavailable Primary Care Provider Unavailabl e Encounter Details Date Type Department Care Team (Latest Contact Info) Description 09/05/2016 Abstract [facility] Medical Group Social History [...]
--- OUTSIDE RECORDS SUMMARY | 2024-09-21 01:22 | XMS_ITS | Encounter Summary ---
Author Organization [facility] Address [address] [facility] [place] [address] [place] [address] Care Team Providers Care Transformer Stock Clerk Name Role Phone Unavailable Primary Care Provider Unavailabl e Encounter Details Date Type Department Care Team (Latest Contact Info) Description 07/01/2016 Abstract [facility] Social History Tobacco Use [...]
--- OUTSIDE RECORDS SUMMARY | 2024-09-21 01:22 | XMS_ITS | Encounter Summary ---
Author Organization [facility] Address [address] [facility] [place] [address] [place] [address] Care Team Providers Care Scientific Investigator Name Role Phone Unavailable Primary Care Provider Unavailabl e Encounter Details Date Type Department Care Team (Late st Contact Info) Description 06/26/2015 Abstract [facility] Medical Group Family & Internal Medicine - [place] [address] [place] [address] Aleksandr Blount MD Social History Tobacco Use Types Packs/Day Years Used Date Smoking Tobacco: Never Assessed Comments Unknown Sex and Gender Information Value Date Recorded Sex Assigned at Not on file Legal Sex Female 10:25 PM CDT Gender Identity Not on file Sexual Orientation Not on file documented as of this encounter Progress Notes * Aleksandr Blount MD - 06/26/2015 4:30 PM CDT Reason For Visit [facility] Visit Chief Complaint Routine Chcf visit FCS History of Present Illness HPI [...] negative. Genitourinary: negative. Musculoskeletal: joint stiffness. Integumentary negative. Psychiatric: dementia. Neurological confusion. Active Problems 1. [...] TABLET DAILY WITH FOOD; Therapy: 30Nov2013 to (Evaluate:27Axy1307); Last Rx:28Jan2015 Ordered 4. Fish Oil 1000 MG Oral Capsule; one capsule two times per day; Therapy: 28Jan2015 to (Last Rx:28Jan2015) Ordered 5. Lisinopril 5 MG Oral Tablet; TAKE 1 TABLET DAILY; Therapy: 09Gnj2789 to (Evaluate:50Oov3428) Recorded 6. Lyrica 150 MG Oral Capsule; Take 1 capsule twice daily; Therapy: 80Ltu4706 to (Evaluate:31Rsy6677); Last Rx:[id number] Ordered 7. MetFORMIN HCl - 500 MG Oral Tablet; TAKE 1 TABLET TWICE DAILY; Therapy: 51Yzm3692 to (Last Rx:[id number]) Ordered 8. Namenda XR 28 MG Oral Capsule Extended Release 24 Hour; ONE DAILY; Therapy: 19Gex3460 to (Last Rx:[id number]) Ordered 9. NovoFine Autocover 30G X 8 MM Miscellaneous; Therapy: 04Mar2013 to Recorded 10. Simvastatin 20 MG Oral Tablet; TAKE 1 TABLET DAILY AT BEDTIME; Therapy: 28Jan2015 to (Evaluate:[id number]) Recorded 11. Victoza 18 MG/3ML SOLN; INJECT 0.6MG SUBCUTANEOUSLY DAILY; Therapy: 23Mar2013 to (Last Rx:[id number]) Ordered Allergies 1. Flagyl CAPS Physical Exam [...] No lymphadenopathy. Musculoskeletal Gait and station: Abnormal. Patient does not ambulate. Inspection/palpation of joints, bones, and muscles: Normal. Skin Skin and subcutaneous tissue: Normal without rashes or lesions. Examination of the skin for lesions: Abnormal. Healing excoriation in her buttocks. Neurologic Cranial nerves: Cranial nerves 2-12 intact. Reflexes: 2+ and symmetric. Psychiatric Orientation to person, place, and time: Abnormal. Mental Status: disoriented to place and disoriented to time, but oriented to person. Mood and affect: Normal. Assessment 1. Generalized multiple sclerosis (340) (G35) 2. 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 Dementia (294.20) (F03.90) 4. Hypertension (401.9) (I10) Signatures Electronically signed by : Aleksandr Blount M.D.; Jul 01 2015 4:13PM DIRECTOR ENTERPRISE SALES (Author) documented in this encounter Plan of Treatment Not on file documented as of this encounter Visit Diagnoses Not on filedocumented in this encounter
--- OUTSIDE RECORDS SUMMARY | 2024-09-21 01:22 | XMS_ITS | Encounter Summary ---
Author Organization [facility] Address [address] [facility] [place] [address] [place] [address] Care Team Providers Care Water Pump Operator Name Role Phone Unavailable Primary Care Provider Unavailabl e Encounter Details Date Type Department Care Team (Latest Contact Info) Description 09/12/2016 Abstract [facility] Social History Tobacco Use [...]
--- OUTSIDE RECORDS SUMMARY | 2024-09-21 01:22 | XMS_ITS | Encounter Summary ---
Author Organization [facility] Address [address] [place] [address] [place] [address] Care Team Providers Care Programmer Analyst Health It Name Role Phone Unavailable Primary Care Provider Unavailabl e Encounter Details Date Type Department Care Team (Latest Contact Info) Description 06/09/2016 Abstract [facility] Medical Group Aleksandr Blount MD Social History Tobacco Use [...]
--- OUTSIDE RECORDS SUMMARY | 2024-09-21 01:22 | XMS_ITS | Encounter Summary ---
Author Organization [facility] Address [address] [facility] [place] [address] [place] [address] Care Team Providers Care Power Shovel Operator Name Role Phone Unavailable Primary Care Provider Unavailabl e Encounter Details Date Type Department Care Team (Latest Contact Info) Description 11/23/2016 Abstract [facility] Medical Group Social History Tobacco [...]
--- OUTSIDE RECORDS SUMMARY | 2024-09-21 01:22 | XMS_ITS | Encounter Summary ---
Author Organization [facility] Address [address] [facility] [facility] [place] [address] [place] [address] Care Team Providers Care Brake Specialist Name Role Phone Unavailable Primary Care Provider Unavailabl e Encounter Details Date Type Department Care Team (Latest Contact Info) Description 07/07/2016 Abstract [facility] Medical Group Social History Tobacco Use [...]
--- OUTSIDE RECORDS SUMMARY | 2024-09-21 01:22 | XMS_ITS | Encounter Summary ---
Author Organization [facility] Address [address] [facility] [place] [address] [place] [address] Care Team Providers Care Truck Engine Assembler Name Role Phone Unavailable Primary Care Provider Unavailabl e Encounter Details Date Type Department Care Team (Latest Contact Info) Description 08/07/2015 Abstract [facility] Medical Group Social History Tobacco [...]
--- OUTSIDE RECORDS SUMMARY | 2024-09-21 01:22 | XMS_ITS | Encounter Summary ---
Author Organization [facility] Address [address] [facility] [place] [address] [place] [address] Care Team Providers Care Bank Operations Officer Name Role Phone Unavailable Primary Care Provider Unavailabl e Encounter Details Date Type Department Care Team (Latest Contact Info) Description 06/06/2016 Abstract [facility] Medical Group Aleksandr Blount MD Social History [...]
--- OUTSIDE RECORDS SUMMARY | 2024-09-21 01:22 | XMS_ITS | Encounter Summary ---
Author Organization [facility] Address [facility] [place] [place] [address] [place] [address] Care Team Providers Care Hole Filler Name Role Phone Unavailable Primary Care Provider Unavailabl e Encounter Details Date Type Department Care Team (Late st Contact Info) Description 10/01/2016 Abstract [facility] Medical Group Family & Internal Medicine - [place] [address] [place] [address] Sosa Ellis NP Social History [...] Sign Reading Time Taken Comments Blood Pressure 108/70 10/01/2016 11:31 AM FIRE EXTINGUISHER INSTALLER Pulse 66 10/01/2016 11:31 AM FIRE EXTINGUISHER INSTALLER Temperature - - Respiratory Rate - - Oxygen Saturation - - Inhaled Oxygen Concentration - - Weight 75.4 kg (166 lb 2.1 oz) 10/01/2016 11:31 AM FIRE EXTINGUISHER INSTALLER Height 167.6 cm (5' 6 ) 10/01/2016 11:31 AM FIRE EXTINGUISHER INSTALLER Body Mass Index 26.81 10/01/2016 11:31 AM FIRE EXTINGUISHER INSTALLER documented in this encounter Progress Notes * Sosa Ellis NP - 10/01/2016 11:00 AM CST Reason For Visit Assisted Visit Chief Complaint care home visit. FCS care home visit. FCS Routine History of Present Illness Pt has had red eye and reported itching with yellow discharge. ATB gtts were given but pt is using them and seems improved at this time. There is no longer any swelling or discoloration of the eye lids but there is injected conjunctiva. Multiple Sclerosis (Follow-Up): The patient is being seen for follow-up of multiple sclerosis. The patient reports doing poorly. She has had no significant interval events. Interval symptoms: worsened paresthesias, worsened limb weakness, worsened limb spasticity and worsened loss of balance. Associated symptoms: no urinary retention. Medications: the patient is adherent to her medication regimen, but she denies medication side effects. Insomnia (Follow-Up): The patient is being seen for follow-up of insomnia. The patient reports doing well. There are no comorbid illnesses. She has had no significant interval events. The patient is currently asymptomatic. Associated symptoms: chronic pain. Medications: the patient is adherent to her [...] and fatigue. Head and Face: negative. Eyes: as noted in HPI. ENT: negative. Cardiovascular: as noted in HPI. [...] BY MOUTH EVERY DAY; Therapy: 11Mar2013 to (Evaluate:12Iso9527); Last Rx:30Jul2015 Ordered 12. Lyrica 150 MG Oral Capsule; Take one capsule by mouth every morning and at bedtime; Therapy: 87Inn5469 to (Evaluate:87Efu2761); Last Rx:[id number] Ordered 13. MetFORMIN HCl - 500 MG Oral Tablet; TAKE 1 TABLET TWICE DAILY; Therapy: 09Jul2013 to (Last Rx:[id number]) Ordered 14. Metoprolol Tartrate 25 MG Oral [...] TAKE 1 TABLET DAILY; Therapy: 30Jul2015 to (Evaluate:[id number]) Recorded 18. Namenda XR 28 MG Oral Capsule Extended Release 24 Hour; ONE DAILY; Therapy: 21Jun2013 to (Last Rx:[id number]) Ordered 19. NovoFine Autocover 30G X 8 MM Miscellaneous; Therapy: 04Mar2013 to Recorded 20. Siltussin SA 100 MG/5ML Oral Syrup; TAKE 5 ML EVERY 4 HOURS NEEDED; Therapy: (Recorded:30Jul2015) to Recorded 21. Victoza 18 MG/3ML SOLN; INJECT 0.6MG SUBCUTANEOUSLY DAILY; Therapy: 23Mar2013 to (Last Rx:[id number]) Ordered 22. Vitamin D 2000 UNIT Oral Capsule; take 1 tab Daily; Therapy: 03Mar2016 to (Evaluate:89Lly1090); Last Rx:03Mar2016 Ordered Allergies 1. Flagyl CAPS Vitals Recorded: 01Oct2016 11:31AM Temperature 97.6 F Heart Rate 66 Respiration 16 Systolic 108 Diastolic 70 O2 Saturation 97 Height 5 ft 6 in Weight 166 lb 2 oz BMI Calculated 26.81 BSA Calculated 1.85 Physical Exam Constitutional General appearance: Abnormal. chronically ill and appears tired, but well developed, well nourishedand well hydrated. Eyes Conjunctiva and lids: Abnormal. left eye is mildly injected with watery discharge. No crusting noted. Ears, Nose, Mouth, and Throat External inspection [...] with neurological manifestations, uncontrolled (250.62) (E11.49,E11.65) 3. Hypertension (401.9) (I10) 4. Hyperlipidemia (272.4) (E78.5) 5. Insomnia (780.52) (G47.00) 6. Impaired weight bearing (V49.89) (R26.89) 7. Mild vitamin D deficiency (268.9) (E55.9) Plan Pt is doing well at this time Pt review of meds, tx and labs no changes made at this time No changes in the POS at this time Continue with routine NH visits monthly. Signatures Electronically signed by : Sosa Ellis NP; Oct 01 2016 9:21PM FIRE EXTINGUISHER INSTALLER (Author) documented in this encounter Plan of Treatment Not on file documented as of this encounter Visit Diagnoses Not on filedocumented in this encounter
--- OUTSIDE RECORDS SUMMARY | 2024-09-21 01:22 | XMS_ITS | Encounter Summary ---
Author Organization [facility] Address [address] [place] [address] [place] [address] Care Team Providers Care Plant Associate Name Role Phone Unavailable Primary Care Provider Unavailabl e Encounter Details Date Type Department Care Team (Latest Contact Info) Description 02/01/[address] [facility] Medical Group Social History Tobacco Use Types [...]
--- OUTSIDE RECORDS SUMMARY | 2024-09-21 01:22 | XMS_ITS | Encounter Summary ---
Author Organization [facility] Address [facility] [facility] [place] [address] [place] [address] Care Team Providers Care Hematology Nurse Name Role Phone Unavailable Primary Care Provider Unavailabl e Encounter Details Date Type Department Care Team (Late st Contact Info) Description 09/05/2015 Abstract [facility] Medical Group Family & Internal Medicine - [place] [address] [place] [address] Sosa Ellis NP Social History [...] Sign Reading Time Taken Comments Blood Pressure 106/70 09/05/2015 2:29 PM SYNTHETIC CHEMIST Pulse 76 09/05/2015 2:29 PM SYNTHETIC CHEMIST Temperature - - Respiratory Rate - - Oxygen Saturation - - Inhaled Oxygen Concentration - - Weight 76.8 kg (169 lb 4 oz) 09/05/2015 2:29 PM SYNTHETIC CHEMIST Height 167.6 cm (5' 6 ) 09/05/2015 2:29 PM SYNTHETIC CHEMIST Body Mass Index 27.32 09/05/2015 2:29 PM SYNTHETIC CHEMIST documented in this encounter Progress Notes * Sosa Ellis NP - 09/05/2015 3:15 PM CST Reason For Visit Skilled Nursing Visit Chief Complaint jail visit. FCS History of Present Illness HPI Free Text: Pt has been taken out by daughter to [facility] and have decided to have her teeth pulled and tryto put in dentures. Today discussed this with the pt and she states she is not going to have the teeth pulled. Pt does have some caries and misshapen teeth especially on the uppers. Pt is to be off the ASA for 7 days before the visit. Pt states she is not going to let anyone pull her teeth. Pt is upset with the staff and the tank wagon driver of the van for getting her to the dentist. Suggested that the staff call the daughter and the dentist and see if the pt really needs to have the teeth removed. Multiple Sclerosis (Follow-Up): The patient is being [...] BY MOUTH EVERY DAY; Therapy: 11Mar2013 to (Evaluate:35Ohs2885); Last Rx:30Jul2015 Ordered 12. Lyrica 150 MG Oral Capsule; Take one capsule by mouth every morning and at bedtime; Therapy: 48Gwo7806 to (Evaluate:24Oct2015); Last Rx:[id number] Ordered 13. MetFORMIN HCl - 500 MG Oral Tablet; TAKE 1 TABLET TWICE DAILY; Therapy: 09Jul2013 to (Last Rx:[id number]) Ordered 14. Metoprolol Tartrate 25 MG Oral [...] TABLET DAILY; Therapy: 30Jul2015 to (Evaluate:29Aug2015) Recorded 18. Namenda XR 28 MG Oral Capsule Extended Release 24 Hour; ONE DAILY; Therapy: 21Jun2013 to (Last Rx:[id number]) Ordered 19. NovoFine Autocover 30G X 8 MM Miscellaneous; Therapy: 04Mar2013 to Recorded 20. Siltussin SA 100 MG/5ML Oral Syrup; TAKE 5 ML EVERY 4 HOURS NEEDED; Therapy: (Recorded:30Jul2015) to Recorded 21. Victoza 18 MG/3ML SOLN; INJECT 0.6MG SUBCUTANEOUSLY DAILY; Therapy: 23Mar2013 to (Last Rx:[id number]) Ordered Allergies 1. Flagyl CAPS Vitals Recorded: 05Sep2015 02:29PM Temperature 97.6 F Heart Rate 76 Respiration 18 Systolic 106 Diastolic 70 O2 Saturation 97 Height 5 ft 6 in Weight 169 lb 4 oz BMI Calculated 27.32 BSA Calculated 1.86 Physical Exam Constitutional General appearance: Abnormal. chronically [...] with neurological manifestations, uncontrolled (250.62) (E11.49,E11.65) 2. Hypertension (401.9) (I10) 3. Hyperlipidemia (272.4) (E78.5) 4. Impaired weight bearing (V49.89) (R26.89) 5. Mild vitamin D deficiency (268.9) (E55.9) 6. Generalized multiple sclerosis (340) (G35) Plan Pt has some dental caries but concern over pulling all the teeth pt has. Meds, tx, and labs have been reviewed No changes to POC Routine monthly PA visits will continue. Signatures Electronically signed by : Sosa Ellis NP; Sep 05 2015 8:40PM SYNTHETIC CHEMIST (Author) documented in this encounter Plan of Treatment Not on file documented as of this encounter Visit Diagnoses Not on filedocumented in this encounter
--- OUTSIDE RECORDS SUMMARY | 2024-09-21 01:22 | XMS_ITS | Encounter Summary ---
Author Organization [facility] Address [address] [place] [address] [place] [address] Care Team Providers Care Apple Solutions Consultant Name Role Phone Unavailable Primary Care Provider Unavailabl e Encounter Details Date Type Department Care Team (Latest Contact Info) Description 11/20/2016 Abstract [facility] Medical Group Social [...]
--- OUTSIDE RECORDS SUMMARY | 2024-09-21 01:22 | XMS_ITS | Encounter Summary ---
Author Organization [facility] Address [address] [place] [address] [place] [address] Care Team Providers Care Potato Chip Packaging Machine Operator Name Role Phone Unavailable Primary Care Provider Unavailabl e Encounter Details Date Type Department Care Team (Latest Contact Info) Description 07/18/2016 Abstract [facility] Medical Group Social History Tobacco Use [...]
--- OUTSIDE RECORDS SUMMARY | 2024-09-21 01:22 | XMS_ITS | Encounter Summary ---
Author Organization [facility] Address [facility] [facility] [place] [address] [place] [address] Care Team Providers Care Direct Care Counselor Name Role Phone Unavailable Primary Care Provider Unavailabl e Encounter Details Date Type Department Care Team (Late st Contact Info) Description 11/26/2016 Abstract [facility] Medical Group Family & Internal Medicine - [place] [address] [place] [address] Sosa Ellis NP Social History [...] Sign Reading Time Taken Comments Blood Pressure 130/70 11/26/2016 9:42 AM CONSTRUCTION MILLWRIGHT Pulse 68 11/26/2016 9:42 AM CONSTRUCTION MILLWRIGHT Temperature - - Respiratory Rate - - Oxygen Saturation - - Inhaled Oxygen Concentration - - Weight 75.8 kg (167 lb 2.1 oz) 11/26/2016 9:42 A M CONSTRUCTION MILLWRIGHT Height - - Body Mass Index 26.98 10/01/2016 11:31 AM CONSTRUCTION MILLWRIGHT documented in this encounter Progress Notes * Sosa Ellis NP - 11/26/2016 10:00 AM CST Reason For Visit Long Term Visit Chief Complaint Routine senior care visit,[facility] to check toenails. History of Present Illness HPI Free Text: pt had the toenail over the 3 rd toenail of the left foot when removed stockings. Pt had some driedblood noted around the toenail. There is not any drainage and is clean and seems to be healing wellat this visit. Pt has hx of infection of the great toe that took several weeks to heal. Pt has poor circulation and other comorbid conditions that decrease ability to heal. Staff will need to keep toenail and try the area dry. Review of Systems See HPI for pertinent positives. Constitutional: as noted in HPI and fatigue. Head and Face: negative. Eyes: as noted in HPI. ENT: negative. Cardiovascular: as noted in HPI. Respiratory: negative. Gastrointestinal: negative. Genitourinary: as noted in HPI and incontinent of urine and BM. Musculoskeletal: as noted in HPI, pain in other joints and generalized muscle aches. Integumentary as noted in HPI, fingernail swelling of the nail fold, toenail deformity and toenail thickening. Psychiatric: insomnia. Hematologic and Lymphatic: as noted [...] BY MOUTH EVERY DAY; Therapy: 11Mar2013 to (Evaluate:[id number]); Last Rx:30Jul2015 Ordered 12. Lyrica 150 MG Oral Capsule; Take one capsule by mouth every morning and at bedtime; Therapy: 48Ewe9018 to (Evaluate:24Jan2017); Last Rx:[id number] Ordered 13. MetFORMIN HCl - 500 MG Oral Tablet; TAKE 1 TABLET TWICE DAILY; Therapy: 09Jul2013 to (Last Rx:[id number]) Ordered 14. Metoprolol Tartrate 25 MG Oral [...] TAKE 1 TABLET DAILY; Therapy: 30Jul2015 to (Evaluate:62Rop4196) Recorded 18. Namenda XR 28 MG Oral Capsule Extended Release 24 Hour; ONE DAILY; Therapy: 59Kcp0884 to (Last Rx:[id number]) Ordered 19. NovoFine Autocover 30G X 8 MM Miscellaneous; Therapy: 04Mar2013 to Recorded 20. Siltussin SA 100 MG/5ML Oral Syrup; TAKE 5 ML EVERY 4 HOURS NEEDED; Therapy: (Recorded:30Jul2015) to Recorded 21. Victoza 18 MG/3ML SOLN; INJECT 0.6MG SUBCUTANEOUSLY DAILY; Therapy: 23Mar2013 to (Last Rx:[id number]) Ordered 22. Vitamin D 2000 UNIT Oral Capsule; take 1 tab Daily; Therapy: 03Mar2016 to (Evaluate:15Zrb3034); Last Rx:[id number] Ordered Allergies 1. Flagyl CAPS Vitals Recorded: 26Nov2016 09:42AM Temperature 97.5 F Heart Rate 68 Respiration 18 Systolic 130 Diastolic 70 Weight 167 lb 2 oz BMI Calculated [...] Examination of the skin for lesions: Abnormal. See HPI toenail change. Neurologic Cranial nerves: Cranial nerves 2-12 intact. Psychiatric Orientation to person, place, and time: Abnormal. Patient is disoriented to place and time but not to person. Mood and affect: Normal. Assessment 1. Overgrown toenails (703.8) (L60.2) 2. Toe injury (959.7) (S99.929A) Plan Staff will follow dressing change to the toenail daily until healed. Report any changes that indicate infection or if not any improvement. Signatures Electronically signed by : Sosa Ellis NP; Nov 26 2016 9:53PM CONSTRUCTION MILLWRIGHT (Author) documented in this encounter Plan of Treatment Not on file documented as of this encounter Visit Diagnoses Not on filedocumented in this encounter
--- OUTSIDE RECORDS SUMMARY | 2024-09-21 01:22 | XMS_ITS | Encounter Summary ---
Author Organization [facility] Address [facility] [facility] [place] [address] [place] [address] Care Team Providers Care Warehouse Supervisor 3Rd Shift Name Role Phone Unavailable Primary Care Provider Unavailabl e Encounter Details Date Type Department Care Team (Late st Contact Info) Description 05/07/2016 Abstract [facility] Medical Group Family & Internal Medicine - [place] [address] [place] [address] Sosa Ellis NP Social History [...] Sign Reading Time Taken Comments Blood Pressure 116/65 05/07/2016 10:01 AM CDT Pulse 74 05/07/2016 10:01 AM CDT Temperature - - Respiratory Rate - - Oxygen Saturation - - Inhaled Oxygen Concentration - - Weight 73.1 kg (161 lb 1 oz) 05/07/2016 10:01 AM CDT Height 167.6 cm (5' 6 ) 05/07/2016 10:01 AM CDT Body Mass Index 26 05/07/2016 10:01 AM CDT documented in this encounter Progress Notes * Sosa Ellis NP - 05/07/2016 10:30 AM CDT Reason For Visit Snf Visit Chief Complaint group home visit. FCS History of Present Illness HPI Free Text: Staff report that the pt is having ill fitting dentures and this has been causing some weight loss in the pt. Pt has been wearing dentures but seems to not be eating as much. Multiple Sclerosis (Follow-Up): The patient is being seen for follow-up of multiple sclerosis. The patient reports doing poorly. She has had no significant interval events. Interval symptoms: worsened paresthesias, worsened limb weakness, worsened limb spasticity and worsened loss of balance. Associated symptoms: no urinary retention. Medications: the patient is adherent to her medication regimen, but she denies medication side effects. Multiple Sclerosis (Brief): The patient is being seen for a routine clinic follow-up of multiple sclerosis. Symptoms: paresthesias, fatigue, incoordination, limb weakness, loss of balance and dysarthria. The patient is currently experiencing symptoms. Associated symptoms: urinary retention, urinary incontinence and difficulty concentrating. Incontinence, Urinary (Follow-Up): The patient is being [...] BY MOUTH EVERY DAY; Therapy: 11Mar2013 to (Evaluate:42Qyu7085); Last Rx:30Jul2015 Ordered 12. Lyrica 150 MG Oral Capsule; Take one capsule by mouth every morning and at bedtime; Therapy: 91Sep8249 to (Evaluate:19Irh3629); Last Rx:[id number] Ordered 13. MetFORMIN HCl - 500 MG Oral Tablet; TAKE 1 TABLET TWICE DAILY; Therapy: 09Jul2013 to (Last Rx:[id number]) Ordered 14. Metoprolol Tartrate 25 MG Oral [...] TAKE 1 TABLET DAILY; Therapy: 30Jul2015 to (Evaluate:35Pig2252) Recorded 18. Namenda XR 28 MG Oral Capsule Extended Release 24 Hour; ONE DAILY; Therapy: 21Jun2013 to (Last Rx:[id number]) Ordered 19. NovoFine Autocover 30G X 8 MM Miscellaneous; Therapy: 04Mar2013 to Recorded 20. Siltussin SA 100 MG/5ML Oral Syrup; TAKE 5 ML EVERY 4 HOURS NEEDED; Therapy: (Recorded:30Jul2015) to Recorded 21. Victoza 18 MG/3ML SOLN; INJECT 0.6MG SUBCUTANEOUSLY DAILY; Therapy: 23Mar2013 to (Last Rx:[id number]) Ordered 22. Vitamin D 2000 UNIT Oral Capsule; take 1 tab Daily; Therapy: 03Mar2016 to (Evaluate:80Wng3335); Last Rx:03Mar2016 Ordered Allergies 1. Flagyl CAPS Vitals Recorded: 07May2016 10:01AM Temperature 98.4 F Heart Rate 74 Respiration 20 Systolic 116 Diastolic 65 O2 Saturation 97 Height 5 ft 6 in Weight 161 lb 1 oz BMI Calculated 26.00 BSA Calculated 1.82 Physical Exam Constitutional General appearance: Abnormal. chronically [...] with neurological manifestations, uncontrolled (250.62) (E11.49,E11.65) 2. Generalized multiple sclerosis (340) (G35) 3. Hypertension (401.9) (I10) 4. Hyperlipidemia (272.4) (E78.5) 5. Dementia (294.20) (F03.90) 6. Mild vitamin D deficiency (268.9) (E55.9) 7. Impaired weight bearing (V49.89) (R26.89) 8. Urinary incontinence (788.30) (R32) 9. Bowel incontinence (787.60) (R15.9) 10. Insomnia (780.52) (G47.00) 11. Unintended weight loss (783.21) (R63.4) Plan Pt daughter has taken pt to the dentist. Pt has had dentures but the staff say the dentures do not fit the pt as they should and are trying to get the dentures to be fitted better. Pt leaves them in as much as possible. Have shrimp cleaner evaluate the pt for improvement of weight loss for the pt. Meds, tx, and labs have been reviewed No changes to POC Routine monthly NH visits will continue. Signatures Electronically signed by : Sosa Ellis NP; May 12 2016 9:00AM KIER BOILER (Author) documented in this encounter Plan of Treatment Not on file documented as of this encounter Visit Diagnoses Not on filedocumented in this encounter
--- OUTSIDE RECORDS SUMMARY | 2024-09-21 01:22 | XMS_ITS | Encounter Summary ---
Author Organization [facility] Address [address] [place] [address] [place] [address] Care Team Providers Care Prefabricator Name Role Phone Unavailable Primary Care Provider Unavailabl e Encounter Details Date Type Department Care Team (Latest Contact Info) Description 06/08/2015 Abstract [facility] Medical Group Social History Tobacco [...]
--- OUTSIDE RECORDS SUMMARY | 2024-09-21 01:22 | XMS_ITS | Encounter Summary ---
Author Organization [facility] Address [address] [place] [address] [place] [address] Care Team Providers Care System Sales Consultant Name Role Phone Unavailable Primary Care Provider Unavailabl e Encounter Details Date Type Department Care Team (Late st Contact Info) Description 03/05/[address] [facility] Medical Group Family & Internal Medicine - [place] [address] [place] [address] Sosa Ellis NP Social History [...] Reading Time Taken Comments Blood Pressure 124/82 03/05/2016 10:48 AM CDT Pulse 86 03/05/2016 10:48 AM CDT Temperature - - Respiratory Rate - - Oxygen Saturation - - Inhaled Oxygen Concentration - - Weight 71.7 kg (158 lb) 03/05/2016 10:48 AM CDT Height 167.6 cm (5' 6 ) 03/05/2016 10:48 AM CDT Body Mass Index 25.5 03/05/2016 10:48 AM CDT documented in this encounter Progress Notes * Sosa Ellis NP - 03/05/2016 11:45 AM CDT Reason For Visit Mcfp Visit Chief Complaint Routine jail visit. [facility] jail visit. [facility] History of Present Illness Pt has been taken out by daughter to [facility] and have decided to have her [...] is upset with the staff and the truck driver instructor of the van for getting her to [...] urinary retention, urinary incontinence and difficulty concentrating. Hyperlipidemia (Follow-Up): The patient states her hyperlipidemia [...] pain, muscle weakness and gait abnorma lity. Incontinence, Urinary (Follow-Up): The patient is being [...] BY MOUTH EVERY DAY; Therapy: 11Mar2013 to (Evaluate:09Mzd5502); Last Rx:30Jul2015 Ordered 12. Lyrica 150 MG Oral Capsule; Take one capsule by mouth every morning and at bedtime; Therapy: 46Xgr3997 to (Evaluate:73Qox2210); Last Rx:[id number] Ordered 13. MetFORMIN HCl - 500 MG Oral Tablet; TAKE 1 TABLET TWICE DAILY; Therapy: 09Jul2013 to (Last Rx:[id number]) Ordered 14. Metoprolol Tartrate 25 MG Oral [...] TAKE 1 TABLET DAILY; Therapy: 30Jul2015 to (Evaluate:88Ken5697) Recorded 18. Namenda XR 28 MG Oral Capsule Extended Release 24 Hour; ONE DAILY; Therapy: 24Zdq2777 to (Last Rx:[id number]) Ordered 19. NovoFine Autocover 30G X 8 MM Miscellaneous; Therapy: 04Mar2013 to Recorded 20. Siltussin SA 100 MG/5ML Oral Syrup; TAKE 5 ML EVERY 4 HOURS NEEDED; Therapy: (Recorded:30Jul2015) to Recorded 21. Victoza 18 MG/3ML SOLN; INJECT 0.6MG SUBCUTANEOUSLY DAILY; Therapy: 23Mar2013 to (Last Rx:[id number]) Ordered 22. Vitamin D 2000 UNIT Oral Capsule; take 1 tab Daily; Therapy: 03Mar2016 to (Evaluate:86Eed3395); Last Rx:03Mar2016 Ordered Allergies 1. Flagyl CAPS Vitals Recorded: 05Mar2016 10:48AM Temperature 97.6 F Heart Rate 86 Respiration 20 Systolic 124 Diastolic 82 O2 Saturation 97 Height 5 ft 6 in Weight 158 lb BMI Calculated 25.50 BSA Calculated 1.81 Physical Exam Constitutional General appearance: Abnormal. chronically [...] (272.4) (E78.5) 2. Hypertension (401.9) (I10) 3. Insomnia (780.52) (G47.00) 4. Mild vitamin D deficiency (268.9) (E55.9) 5. 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 Generalized multiple sclerosis (340) (G35) Plan Meds, tx, and labs have been reviewed No changes to POC Routine monthly [place] visits will continue. Signatures Electronically signed by : Sosa Ellis NP; Mar 11 2016 10:19PM SAWMILL EQUIPMENT OPERATOR (Author) documented in this encounter Plan of Treatment Not on file documented as of this encounter Visit Diagnoses Not on filedocumented in this encounter
--- OUTSIDE RECORDS SUMMARY | 2024-09-21 01:22 | XMS_ITS | Encounter Summary ---
Author Organization [facility] Address [facility] [facility] [place] [address] [place] [address] Care Team Providers Care Front End Web Designer Name Role Phone Unavailable Primary Care Provider Unavailabl e Encounter Details Date Type Department Care Team (Late st Contact Info) Description 03/07/2015 Abstract [facility] Medical Group Family & Internal Medicine - [place] [address] [place] [address] Sosa Ellis NP Social History [...] Sign Reading Time Taken Comments Blood Pressure 100/56 03/08/2015 11:47 AM CDT Pulse 70 03/08/2015 11:47 AM CDT Temperature - - Respiratory Rate - - Oxygen Saturation - - Inhaled Oxygen Concentration - - Weight 75.4 kg (166 lb 4 oz) 03/08/2015 11:47 AM CDT Height 167.6 cm (5' 6 ) 03/08/2015 11:47 AM CDT Body Mass Index 26.83 03/08/2015 11:47 AM CDT documented in this encounter Progress Notes * Sosa Ellis NP - 03/07/2015 1:15 PM CDT Reason For Visit [facility] Visit Chief Complaint [facility] visit. History of Present Illness A 74-year-old white female who is actually alert and oriented today. She is able to answer questions. She is not able to help herself related to the multiple sclerosis. She is in her bed. She is resting. She has had all of the areas of skin that had been opened or discolored have all healed and aredoing very well at this time. She had been on a special mattress and had wound care being treated for several open areas, but they have all healed and she is doing quite well at this time. She is being positioned more frequently. Her oral intake is good, hydration is good. No other changes will be made at this time for her. Patient remains incontinent of urine and BM but is not having any skin issues related to that. Staff were addressing her needs as she is having incontinence, and the skin isin good condition. The patient is being seen for follow-up of multiple sclerosis. The patient reports doing poorly. She has had no significant interval events. Interval symptoms: worsened paresthesias, worsened limb weakness, worsened limb spasticity and worsened loss of balance. Associated symptoms: no urinary retention. Medications: the patient is adherent to her medication regimen, but she denies medication side effects. The patient states her hyperlipidemia has been poorly controlled since the last visit. Symptoms: The patient's LDL goal is 100 mg/dL. The patient's last LDL was 18 mg/dL. TG are over 300and the Ldl is too low. The patient is due for a lipid panel. Additional History: Pt has had fenofibrate D/c and will need to restart this. The patient presents for follow-up of primary [...] Mild vitamin D deficiency (268.9) (E55.9) 17. Need for prophylactic vaccination and inoculation against influenza (V04.81) (Z23) 18. Open wound of toe with complication [...] 1 capsule twice daily; Therapy: 12Jan2013 to (Evaluate:02May2015); Last Rx:02Jan2015 Ordered 7. MetFORMIN HCl - 500 MG Oral Tablet; TAKE 1 TABLET TWICE DAILY; Therapy: 09Jul2013 to (Last Rx:[id number]) Ordered 8. Namenda XR 28 MG Oral Capsule Extended Release 24 Hour; ONE DAILY; Therapy: 21Jun2013 to (Last Rx:09Nov2013) Ordered 9. NovoFine Autocover 30G X 8 MM Miscellaneous; Therapy: 04Mar2013 to Recorded 10. Simvastatin 20 MG Oral Tablet; TAKE 1 TABLET DAILY AT BEDTIME; Therapy: 28Jan2015 to (Evaluate:30Apr2015); Last Rx:30Jan2015 Ordered 11. Victoza 18 MG/3ML SOLN; INJECT 0.6MG SUBCUTANEOUSLY DAILY; Therapy: 23Mar2013 to (Last Rx:[id number]) Ordered Allergies 1. Flagyl CAPS Vitals Recorded: 08Mar2015 11:47AM Temperature 96.8 F Heart Rate 70 Respiration 16 Systolic 100 Diastolic 56 O2 Saturation 98 Height 5 ft 6 in Weight 166 lb 4 oz BMI Calculated 26.83 BSA Calculated 1.85 Physical Exam Constitutional General appearance: Abnormal. Chronically [...] nonweightbearing. Has to have Joana lift fortransfers) Skin Skin and subcutaneous tissue: Normal without rashes or lesions. Neurologic Cranial nerves: Cranial nerves 2-12 intact. Psychiatric Orientation to person, place, and time: Abnormal. Patient is disoriented to place and time but not to person. Mood and affect: Normal. Assessment 1. 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 Generalized multiple sclerosis (340) (G35) 3. Hyperlipidemia (272.4) (E78.5) 4. Hypertension (401.9) (I10) 5. Urine incontinence (788.30) (R32) Plan Patient is stable and current plan of care reviewed, labs, treatments, meds and no changes will be made at this visit. We will continue to monitor patient on a routine monthly basis. Signatures Electronically signed by : Sosa Ellis NP; Mar 12 2015 9:02AM NUISANCE ANIMAL DAMAGE CONTROL AGENT (Author) documented in this encounter Plan of Treatment Not on file documented as of this encounter Visit Diagnoses Not on filedocumented in this encounter
--- OUTSIDE RECORDS SUMMARY | 2024-09-21 01:22 | XMS_ITS | Encounter Summary ---
Author Organization [facility] Address [address] [facility] [place] [address] [place] [address] Care Team Providers Care Manager Biostatistics Name Role Phone Unavailable Primary Care Provider Unavailabl e Encounter Details Date Type Department Care Team (Latest Contact Info) Description 01/22/2016 Abstract [facility] Medical Group Social History Tobacco Use [...]
--- OUTSIDE RECORDS SUMMARY | 2024-09-21 01:22 | XMS_ITS | Encounter Summary ---
Author Organization [facility] Address [address] [place] [address] [place] [address] Care Team Providers Care Bench Scientist Name Role Phone Unavailable Primary Care Provider Unavailabl e Encounter Details Date Type Department Care Team (Late st Contact Info) Description 07/15/2016 Abstract [facility] Medical Group Family & Internal Medicine - [place] [address] [place] [address] Aleksandr Blount MD Social History Tobacco Use Types Packs/Day Years Used Date Smoking Tobacco: Never Assessed Comments Unknown Sex and Gender Information Value Date Recorded Sex Assigned at Not on file Legal Sex Female 10:25 PM CDT Gender Identity Not on file Sexual Orientation Not on file documented as of this encounter Progress Notes * Aleksandr Blount MD - 07/15/2016 3:45 PM CDT Chief Complaint Routine [facility] visit [facility] History of Present Illness HPI Free Text: This patient has dementia, the patient is stable and he seems to be comfortable. The patient currently received the care that is necessary, the patient seems to be in no distress. The patient is taking the medications that are prescribed, with no signs of intolerance.Most of the time she is very calm perhaps very flat affect he answered questions properly simple Review of Systems See HPI for pertinent [...] TAKE 1 TABLET DAILY; Therapy: 10Aug2013 to (Evaluate:05Klf2731) Recorded 4. Atorvastatin Calcium 10 MG Oral [...] BY MOUTH AT BEDTIME; Therapy: 24Mar2013 to (Evaluate:59Cml0601) Recorded 8. Fenofibrate 150 MG Oral Capsule; [...] BY MOUTH EVERY DAY; Therapy: 11Mar2013 to (Evaluate:87Vtm5633); Last Rx:30Jul2015 Ordered 12. Lyrica 150 MG Oral Capsule; Take one capsule by mouth every morning and at bedtime; Therapy: 42Cwe3833 to (Evaluate:09Dec2016); Last Rx:[id number] Ordered 13. MetFORMIN HCl - 500 MG Oral Tablet; TAKE 1 TABLET TWICE DAILY; Therapy: 09Jul2013 to (Last Rx:[id number]) Ordered 14. Metoprolol Tartrate 25 MG Oral [...] TAKE 1 TABLET DAILY; Therapy: 30Jul2015 to (Evaluate:23Cgy7969) Recorded 18. Namenda XR 28 MG Oral Capsule Extended Release 24 Hour; ONE DAILY; Therapy: 27Wgi3967 to (Last Rx:[id number]) Ordered 19. NovoFine Autocover 30G X 8 MM Miscellaneous; Therapy: 04Mar2013 to Recorded 20. Siltussin SA 100 MG/5ML Oral Syrup; TAKE 5 ML EVERY 4 HOURS NEEDED; Therapy: (Recorded:30Jul2015) to Recorded 21. Victoza 18 MG/3ML SOLN; INJECT 0.6MG SUBCUTANEOUSLY DAILY; Therapy: 23Mar2013 to (Last Rx:[id number]) Ordered 22. Vitamin D 2000 UNIT Oral Capsule; take 1 tab Daily; Therapy: 03Mar2016 to (Evaluate:67Cke2764); Last Rx:[id number] Ordered Allergies 1. Flagyl CAPS Physical Exam [...] signed by : Aleksandr Blount M.D.; Jul 17 2016 10:41AM QUALITY CONTROL LAB TECH (Author) documented in this encounter Plan of Treatment Not on file documented as of this encounter Visit Diagnoses Not on filedocumented in this encounter
--- OUTSIDE RECORDS SUMMARY | 2024-09-21 01:22 | XMS_ITS | Encounter Summary ---
Author Organization [facility] Address Counts include [address] [facility] [place] [address] [place] [address] Care Team Providers Care Photogeologist Name Role Phone Frieda Wasserman MD Primary Care Provider Unavailab Keiry Salazar EMPLOYEE REPRESENTATIVE Unavailable [phone] Encounter Details Date Type Department Care Team (Late st Contact Info) Description 06/06/2016 Abstract [facility] Emergency Room [address] [place] [address] [place] [address] [id number] Social History Tobacco Use Types Packs/Day Years Used Date Smoking Tobacco: Never Assessed Comments Unknown Sex and Gender Information Value Date Recorded Sex Assigned at Not on file Legal Sex Female 10:25 PM CDT Gender Identity Not on file Sexual Orientation Not on file documented as of this encounter Plan of Treatment Not on file documented as of this encounter Visit Diagnoses Diagnosis 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
--- OUTSIDE RECORDS SUMMARY | 2024-09-21 01:22 | XMS_ITS | Encounter Summary ---
Author Organization [facility] Address [address] [address] [place] [address] [place] [address] Care Team Providers Care Hydraulic Oil Tool Operator Name Role Phone Unavailable Primary Care Provider Unavailabl e Encounter Details Date Type Department Care Team (Late st Contact Info) Description 04/17/2015 Abstract [facility] Medical Group Family & Internal Medicine - [place] [address] [place] [address] Aleksandr Blount MD Social History Tobacco Use Types Packs/Day Years Used Date Smoking Tobacco: Never Assessed Comments Unknown Sex and Gender Information Value Date Recorded Sex Assigned at Not on file Legal Sex Female 10:25 PM CDT Gender Identity Not on file Sexual Orientation Not on file documented as of this encounter Progress Notes * Aleksandr Blount MD - 04/17/2015 4:00 PM CDT Reason For Visit Retirement Visit Active Problems 1. Bowel incontinence (787.60) (R15.9) [...] TABLET DAILY WITH FOOD; Therapy: 30Nov2013 to (Evaluate:11Fgm7307); Last Rx:[id number] Ordered 4. Fish Oil 1000 MG Oral Capsule; one capsule two times per day; Therapy: 28Jan2015 to (Last Rx:[id number]) Ordered 5. Lisinopril 5 MG Oral Tablet; TAKE 1 TABLET DAILY; Therapy: 11Mar2013 to (Evaluate:15Aug2014) Recorded 6. Lyrica 150 MG Oral Capsule; Take 1 capsule twice daily; Therapy: 35Sdf1147 to (Evaluate:31Jul2015); Last Rx:[id number] Ordered 7. MetFORMIN HCl - 500 MG Oral Tablet; TAKE 1 TABLET TWICE DAILY; Therapy: 62Ldp7726 to (Last Rx:35Hgi6511) Ordered 8. Namenda XR 28 MG Oral Capsule Extended Release 24 Hour; ONE DAILY; Therapy: 34Irw0194 to (Last Rx:15Frn0204) Ordered 9. NovoFine Autocover 30G X 8 MM Miscellaneous; Therapy: 57Zye3149 to Recorded 10. Simvastatin 20 MG Oral Tablet; TAKE 1 TABLET DAILY AT BEDTIME; Therapy: 50Gzq6381 to (Evaluate:67Qem5657); Last Rx:30Jan2015 Ordered 11. Victoza 18 MG/3ML SOLN; INJECT 0.6MG SUBCUTANEOUSLY DAILY; Therapy: 23Mar2013 to (Last Rx:[id number]) Ordered Allergies 1. Flagyl CAPS Physical Exam [...] neck: No lymphadenopathy. Musculoskeletal Gait and station: Normal. Inspection/palpation of joints, bones, and muscles: Normal. [...] (272.4) (E78.5) 4. Hypertension (401.9) (I10) 5. Dementia (294.20) (F03.90) Discussion/Summary The patient [...] signed by : Aleksandr Blount M.D.; Apr 21 2015 11:41AM WRAP CHECKER (Author) documented in this encounter Plan of Treatment Not on file documented as of this encounter Visit Diagnoses Not on filedocumented in this encounter
--- OUTSIDE RECORDS SUMMARY | 2024-09-21 01:22 | XMS_ITS | Encounter Summary ---
Author Organization [facility] Address [address] [place] [address] [place] [address] Care Team Providers Care Baseball Sewer Hand Name Role Phone Unavailable Primary Care Provider Unavailabl e Encounter Details Date Type Department Care Team (Latest Contact Info) Description 12/12/2016 Abstract [facility] Medical Group Social History Tobacco [...]
--- OUTSIDE RECORDS SUMMARY | 2024-09-21 01:22 | XMS_ITS | Encounter Summary ---
Author Organization [facility] Address [address] [facility] [place] [address] [place] [address] Care Team Providers Care Communication Specialist Name Role Phone Unavailable Primary Care Provider Unavailabl e Encounter Details Date Type Department Care Team (Late st Contact Info) Description 06/10/2016 Abstract [facility] Medical Group Family & Internal Medicine - [place] [address] [place] [address] Aleksandr Blount MD Social History Tobacco Use Types Packs/Day Years Used Date Smoking Tobacco: Never Assessed Comments Unknown Sex and Gender Information Value Date Recorded Sex Assigned at Not on file Legal Sex Female 10:25 PM CDT Gender Identity Not on file Sexual Orientation Not on file documented as of this encounter Progress Notes * Aleksandr Blount MD - 06/10/2016 4:00 PM CDT Reason For Visit Senior Care Visit Chief Complaint Routine Senior Care visit [facility] History of Present Illness HPI [...] (S91.109A) ?? medial toe Great toe. 12. Unintended weight loss (783.21) (R63.4) 13. Urinary incontinence (788.30) (R32) Past Medical [...] BY MOUTH AT BEDTIME; Therapy: 24Mar2013 to (Evaluate:22Kaw0650) Recorded 8. Fenofibrate 150 MG Oral Capsule; [...] BY MOUTH EVERY DAY; Therapy: 11Mar2013 to (Evaluate:33Brc9963); Last Rx:30Jul2015 Ordered 12. Lyrica 150 MG Oral Capsule; Take one capsule by mouth every morning and at bedtime; Therapy: 59Wek3639 to (Evaluate:62Hfz5401); Last Rx:[id number] Ordered 13. MetFORMIN HCl - 500 MG Oral Tablet; TAKE 1 TABLET TWICE DAILY; Therapy: 09Jul2013 to (Last Rx:[id number]) Ordered 14. Metoprolol Tartrate 25 MG Oral [...] TAKE 1 TABLET DAILY; Therapy: 30Jul2015 to (Evaluate:95Zqx2481) Recorded 18. Namenda XR 28 MG Oral Capsule Extended Release 24 Hour; ONE DAILY; Therapy: 15Vno6414 to (Last Rx:[id number]) Ordered 19. NovoFine Autocover 30G X 8 MM Miscellaneous; Therapy: 04Mar2013 to Recorded 20. Siltussin SA 100 MG/5ML Oral Syrup; TAKE 5 ML EVERY 4 HOURS NEEDED; Therapy: (Recorded:30Jul2015) to Recorded 21. Victoza 18 MG/3ML SOLN; INJECT 0.6MG SUBCUTANEOUSLY DAILY; Therapy: 23Mar2013 to (Last Rx:[id number]) Ordered 22. Vitamin D 2000 UNIT Oral Capsule; take 1 tab Daily; Therapy: 03Mar2016 to (Evaluate:29Cmv1396); Last Rx:03Mar2016 Ordered Allergies 1. Flagyl CAPS [...] (340) (G35) 3. Hyperlipidemia (272.4) (E78.5) 4. Dementia (294.20) (F03.90) Discussion/Summary The patient [...] signed by : Aleksandr Blount M.D.; Jun 14 2016 12:10PM CELERY STRIPPER (Author) documented in this encounter Plan of Treatment Not on file documented as of this encounter Visit Diagnoses Not on filedocumented in this encounter
--- OUTSIDE RECORDS SUMMARY | 2024-09-21 01:22 | XMS_ITS | Encounter Summary ---
Author Organization [facility] Address [address] [place] [address] [place] [address] Care Team Providers Care Project Design Engineer Name Role Phone Unavailable Primary Care Provider Unavailabl e Encounter Details Date Type Department Care Team (Latest Contact Info) Description 08/18/2016 Abstract [facility] Medical Group Social History Tobacco Use [...]
--- OUTSIDE RECORDS SUMMARY | 2024-09-21 01:22 | XMS_ITS | Encounter Summary ---
Author Organization [facility] Address [address] [place] [address] [place] [address] Care Team Providers Care Furnace Filler Name Role Phone Unavailable Primary Care Provider Unavailabl e Encounter Details Date Type Department Care Team (Latest Contact Info) Description 04/15/2016 Abstract [facility] Medical Group [...]
--- OUTSIDE RECORDS SUMMARY | 2024-09-21 01:22 | XMS_ITS | Encounter Summary ---
Author Organization [facility] Address [address] [place] [address] [place] [address] Care Team Providers Care Customer Sales Representative Name Role Phone Unavailable Primary Care Provider Unavailabl e Encounter Details Date Type Department Care Team (Latest Contact Info) Description 03/29/2015 Abstract [facility] Social History [...]
--- OUTSIDE RECORDS SUMMARY | 2024-09-21 01:22 | XMS_ITS | Encounter Summary ---
Author Organization [facility] Address [address] [facility] [place] [address] [place] [address] Care Team Providers Care Cassandra Developer Name Role Phone Unavailable Primary Care Provider Unavailabl e Encounter Details Date Type Department Care Team (Latest Contact Info) Description 07/17/2016 Abstract [facility] Medical Group Social History [...]
--- OUTSIDE RECORDS SUMMARY | 2024-09-21 01:22 | XMS_ITS | Encounter Summary ---
Author Organization [facility] Address [facility] [facility] [place] [address] [place] [address] Care Team Providers Care Child And Adolescent Therapist Name Role Phone Unavailable Primary Care Provider Unavailabl e Encounter Details Date Type Department Care Team (Late st Contact Info) Description 01/07/2017 Abstract [facility] Medical Group Family & Internal Medicine - [place] [address] [place] [address] Sosa Ellis NP Social History [...] Sign Reading Time Taken Comments Blood Pressure 100/64 01/07/2017 12:06 PM CDT Pulse 70 01/07/2017 12:06 PM CDT Temperature - - Respiratory Rate - - Oxygen Saturation - - Inhaled Oxygen Concentration - - Weight 76.7 kg (169 lb) 01/07/2017 12:06 PM CDT Height - - Body Mass Index 27.28 10/01/2016 11:31 AM KAPOK MACHINE OPERATOR documented in this encounter Progress Notes * Sosa Ellis NP - 01/07/2017 11:45 AM CDT Reason For Visit Skilled Nursing Visit Chief Complaint group home visit, routine, [facility]. History of Present Illness Multiple Sclerosis (Follow-Up): [...] BY MOUTH EVERY DAY; Therapy: 11Mar2013 to (Evaluate:60Puo4157); Last Rx:30Jul2015 Ordered 12. Lyrica 150 MG Oral Capsule; Take one capsule by mouth every morning and at bedtime; Therapy: 06Duq4227 to (Evaluate:79Lap8841); Last Rx:[id number] Ordered 13. MetFORMIN HCl - 500 MG Oral Tablet; TAKE 1 TABLET TWICE DAILY; Therapy: 09Jul2013 to (Last Rx:[id number]) Ordered 14. Metoprolol Tartrate 25 MG Oral [...] TAKE 1 TABLET DAILY; Therapy: 30Jul2015 to (Evaluate:63Iur1973) Recorded 18. Namenda XR 28 MG Oral Capsule Extended Release 24 Hour; ONE DAILY; Therapy: 16Ght0635 to (Last Rx:[id number]) Ordered 19. NovoFine Autocover 30G X 8 MM Miscellaneous; Therapy: 04Mar2013 to Recorded 20. Siltussin SA 100 MG/5ML Oral Syrup; TAKE 5 ML EVERY 4 HOURS NEEDED; Therapy: (Recorded:30Jul2015) to Recorded 21. Victoza 18 MG/3ML SOLN; INJECT 0.6MG SUBCUTANEOUSLY DAILY; Therapy: 23Mar2013 to (Last Rx:[id number]) Ordered 22. Vitamin D 2000 UNIT Oral Capsule; take 1 tab Daily; Therapy: 03Mar2016 to (Evaluate:75Zzj4876); Last Rx:03Mar2016 Ordered Allergies 1. Flagyl CAPS Vitals Recorded: 07Jan2017 12:06PM Temperature 97.7 F Heart Rate 70 Respiration 16 Systolic 100 Diastolic 64 Weight 169 lb BMI Calculated 27.28 BSA Calculated 1.86 Physical Exam Constitutional General [...] (Patient is nonambulatory, nonweightbearing. Has to have Joaan lift fortransfers) Inspection/palpation of joints, bones, and [...] (272.4) (E78.5) 3. Hypertension (401.9) (I10) 4. Mild vitamin D deficiency (268.9) (E55.9) 5. Unintended weight loss (783.21) (R63.4) 6. Generalized multiple sclerosis (340) (G35) 7. Dementia (294.20) (F03.90) Plan Pt is doing well at this time Pt review of meds, tx and labs no changes made at this time No changes in the POS at this time Continue with routine NH visits monthly. Signatures Electronically signed by : Sosa Ellis NP; Jan 12 2017 9:00PM KAPOK MACHINE OPERATOR (Author) documented in this encounter Plan of Treatment Not on file documented as of this encounter Visit Diagnoses Not on filedocumented in this encounter
--- OUTSIDE RECORDS SUMMARY | 2024-09-21 01:22 | XMS_ITS | Encounter Summary ---
Author Organization [facility] Address [address] [address] [place] [address] Care Team Providers Care Beam Dyer Operator Name Role Phone Unavailable Primary Care Provider Unavailabl e Encounter Details Date Type Department Care Team (Latest Contact Info) Description 03/19/2016 Abstract [facility] Medical Group Social History Tobacco [...]
--- OUTSIDE RECORDS SUMMARY | 2024-09-21 01:22 | XMS_ITS | Encounter Summary ---
Author Organization [facility] Address [facility] [facility] [place] [address] [place] [address] Care Team Providers Care Mold Inspector Name Role Phone Unavailable Primary Care Provider Unavailabl e Encounter Details Date Type Department Care Team (Late st Contact Info) Description 11/07/2015 Abstract [facility] Medical Group Family & Internal Medicine - [place] [address] [place] [address] Sosa Ellis NP Social History [...] Sign Reading Time Taken Comments Blood Pressure 108/58 11/07/2015 9:17 AM DIRECTOR OF DISTRIBUTION Pulse 66 11/07/2015 9:17 AM DIRECTOR OF DISTRIBUTION Temperature - - Respiratory Rate - - Oxygen Saturation - - Inhaled Oxygen Concentration - - Weight 74.6 kg (164 lb 6.1 oz) 11/07/2015 9:17 A M DIRECTOR OF DISTRIBUTION Height 167.6 cm (5' 6 ) 11/07/2015 9:17 AM DIRECTOR OF DISTRIBUTION Body Mass Index 26.53 11/07/2015 9:17 AM DIRECTOR OF DISTRIBUTION documented in this encounter Progress Notes * Sosa Ellis NP - 11/07/2015 9:15 AM CST Reason For Visit Correction Visit Chief Complaint Routine [facility] visit. [facility] History of Present Illness Pt has been taken out by daughter to [facility] and have decided to have her [...] is upset with the staff and the concrete mixing truck driver of the van for getting her [...] pain, muscle weakness and gait abnorma lity. Multiple Sclerosis (Brief): The patient is being [...] (787.60) (R15.9) 3. Cellulitis (682.9) (L03.90) 4. Decubitus ulcer of buttock, stage 2 (707.05,707.22) (L89.302) 5. Decubitus ulcer, heel (707.07,707.20) (L89.609) 6. Dementia (294.20) (F03.90) 7. Diabetes mellitus (250.00) (E11.9) 8. 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 Fungal infection (117.9) (B49) 10. Generalized multiple sclerosis (340) (G35) 11. Hyperlipidemia (272.4) (E78.5) 12. Hypertension (401.9) (I10) 13. Impaired weight bearing (V49.89) (R26.89) 14. Ingrowing nail with infection (703.0) (L60.0) 15. Insomnia (780.52) (G47.00) 16. Mild vitamin D deficiency (268.9) (E55.9) 17. Open wound of toe with complication (893.1) (S91.109A) ?? medial toe Great toe. 18. Urinary incontinence (788.30) (R32) Family History Mother [...] BY MOUTH EVERY DAY; Therapy: 11Mar2013 to (Evaluate:93Trc9215); Last Rx:30Jul2015 Ordered 12. Lyrica 150 MG Oral Capsule; Take one capsule by mouth every morning and at bedtime; Therapy: 61Xry8759 to (Evaluate:52Idh1660); Last Rx:10Oct2015 Ordered 13. MetFORMIN HCl - 500 MG Oral Tablet; TAKE 1 TABLET TWICE DAILY; Therapy: 09Jul2013 to (Last Rx:[id number]) Ordered 14. Metoprolol Tartrate 25 MG Oral [...] TAKE 1 TABLET DAILY; Therapy: 30Jul2015 to (Evaluate:61Gyw9788) Recorded 18. Namenda XR 28 MG Oral Capsule Extended Release 24 Hour; ONE DAILY; Therapy: 21Jun2013 to (Last Rx:[id number]) Ordered 19. NovoFine Autocover 30G X 8 MM Miscellaneous; Therapy: 04Mar2013 to Recorded 20. Siltussin SA 100 MG/5ML Oral Syrup; TAKE 5 ML EVERY 4 HOURS NEEDED; Therapy: (Recorded:30Jul2015) to Recorded 21. Victoza 18 MG/3ML SOLN; INJECT 0.6MG SUBCUTANEOUSLY DAILY; Therapy: 23Mar2013 to (Last Rx:[id number]) Ordered Allergies 1. Flagyl CAPS Vitals Recorded: 07Nov2015 09:17AM Temperature 96.2 F Heart Rate 66 Respiration 16 Systolic 108 Diastolic 58 O2 Saturation 99 Height 5 ft 6 in Weight 164 [...] with neurological manifestations, uncontrolled (250.62) (E11.49,E11.65) 4. Mild vitamin D deficiency (268.9) (E55.9) 5. Impaired weight bearing (V49.89) (R26.89) 6. Generalized multiple sclerosis (340) (G35) 7. Urinary incontinence (788.30) (R32) 8. 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 Signatures Electronically signed by : Sosa Ellis NP; Nov 11 2015 7:22PM DIRECTOR OF DISTRIBUTION (Author) documented in this encounter Plan of Treatment Not on file documented as of this encounter Visit Diagnoses Not on filedocumented in this encounter
--- OUTSIDE RECORDS SUMMARY | 2024-09-21 01:22 | XMS_ITS | Encounter Summary ---
Author Organization [facility] Address [address] [place] [place] [address] [place] [address] Care Team Providers Care Granite Cutter Apprentice Name Role Phone Unavailable Primary Care Provider Unavailabl e Encounter Details Date Type Department Care Team (Latest Contact Info) Description 09/18/2016 Abstract [facility] Medical Group Social History Tobacco [...]
--- OUTSIDE RECORDS SUMMARY | 2024-09-21 01:22 | XMS_ITS | Encounter Summary ---
Author Organization [facility] Address [address] [facility] [place] [address] [place] [address] Care Team Providers Care Surgical Garment Inspector Name Role Phone Unavailable Primary Care Provider Unavailabl e Encounter Details Date Type Department Care Team (Latest Contact Info) Description 01/31/2016 Abstract [facility] Medical Group Social [...]
--- OUTSIDE RECORDS SUMMARY | 2024-09-21 01:22 | XMS_ITS | Encounter Summary ---
Author Organization [facility] Address [address] [place] [address] [place] [address] Care Team Providers Care Ballistics Laboratory Gunsmith Name Role Phone Unavailable Primary Care Provider Unavailabl e Encounter Details Date Type Department Care Team (Late st Contact Info) Description 06/13/2015 Abstract [facility] Medical Group Family & Internal Medicine - [place] [address] [place] [address] Sosa Ellis NP Social History [...] Sign Reading Time Taken Comments Blood Pressure 112/60 06/13/2015 3:20 PM CDT Pulse 82 06/13/2015 3:20 PM CDT Temperature - - Respiratory Rate - - Oxygen Saturation - - Inhaled Oxygen Concentration - - Weight 76.7 kg (169 lb) 06/13/2015 3:20 PM CDT Height 167.6 cm (5' 6 ) 06/13/2015 3:20 PM CDT Body Mass Index 27.28 06/13/2015 3:20 PM CDT documented in this encounter Progress Notes * Sosa Ellis NP - 06/13/2015 3:45 PM CDT Reason For Visit Custodial Visit Chief Complaint [facility] visit. [facility] History of Present Illness HPI Free Text: Pt has open area on right lower buttock, just beneath the gluteal fold. Pt has stage II pressure ulcer and pt is not able to move self. No drainage and no infection noted but pt is complaining of pain Review of Systems See HPI for pertinent [...] TABLET DAILY WITH FOOD; Therapy: 30Nov2013 to (Evaluate:09Npu8610); Last Rx:[id number] Ordered 4. Fish Oil 1000 MG Oral Capsule; one capsule two times per day; Therapy: 28Jan2015 to (Last Rx:28Jan2015) Ordered 5. Lisinopril 5 MG Oral Tablet; TAKE 1 TABLET DAILY; Therapy: 11Mar2013 to (Evaluate:15Aug2014) Recorded 6. Lyrica 150 MG Oral Capsule; Take 1 capsule twice daily; Therapy: 14Ple9234 to (Evaluate:31Jul2015); Last Rx:[id number] Ordered 7. MetFORMIN HCl - 500 MG Oral Tablet; TAKE 1 TABLET TWICE DAILY; Therapy: 09Jul2013 to (Last Rx:[id number]) Ordered 8. Namenda XR 28 MG Oral Capsule Extended Release 24 Hour; ONE DAILY; Therapy: 34Dhr3936 to (Last Rx:[id number]) Ordered 9. NovoFine Autocover 30G X 8 MM Miscellaneous; Therapy: 04Mar2013 to Recorded 10. Simvastatin 20 MG Oral Tablet; TAKE 1 TABLET DAILY AT BEDTIME; Therapy: 28Jan2015 to (Evaluate:51Skz8627); Last Rx:[id number] Ordered 11. Victoza 18 MG/3ML SOLN; INJECT 0.6MG SUBCUTANEOUSLY DAILY; Therapy: 23Mar2013 to (Last Rx:[id number]) Ordered 12. AmLODIPine Besylate 10 MG Oral Tablet; Therapy: 24Feb2015 to Recorded 13. Atorvastatin Calcium 10 MG Oral Tablet; Therapy: 06Feb2015 to Recorded 14. Azithromycin 250 MG Oral Tablet; Therapy: 34Msm8315 to Recorded 15. Klor-Con M20 20 MEQ Oral Tablet Extended Release; Therapy: 56Xvs1703 to Recorded 16. Lisinopril 20 MG Oral Tablet; Therapy: 28Feb2015 to Recorded 17. Metoprolol Tartrate 25 MG Oral Tablet; Therapy: 28Feb2015 to Recorded Allergies 1. Flagyl CAPS Vitals Recorded: 13Jun2015 03:20PM Temperature 96.6 F Heart Rate 82 Respiration 20 Systolic 112 Diastolic 60 O2 Saturation 97 Height 5 ft 6 in Weight 169 lb BMI Calculated 27.28 BSA [...] Normal. Assessment 1. Hypertension (401.9) (I10) 2. Abrasion or friction burn of other, multiple, and unspecified sites (919.0) Plan Duoderm on after cleansing leave in place for 72 hours. change every 72 hours or as needed until healed. No other changes made to POC Signatures Electronically signed by : Sosa Ellis NP; Jun 18 2015 10:27PM WORKGROUP LEADER (Author) documented in this encounter Plan of Treatment Not on file documented as of this encounter Visit Diagnoses Not on filedocumented in this encounter
--- OUTSIDE RECORDS SUMMARY | 2024-09-21 01:22 | XMS_ITS | Encounter Summary ---
Author Organization [facility] Address [facility] [facility] [place] [address] [place] [address] Care Team Providers Care Hone Operator Name Role Phone Unavailable Primary Care Provider Unavailabl e Encounter Details Date Type Department Care Team (Late st Contact Info) Description 07/11/2015 Abstract [facility] Medical Group Family & Internal Medicine - [place] [address] [place] [address] Sosa Ellis NP Social History [...] Sign Reading Time Taken Comments Blood Pressure 110/78 07/12/2015 6:15 PM CDT Pulse 80 07/12/2015 6:15 PM CDT Temperature - - Respiratory Rate - - Oxygen Saturation - - Inhaled Oxygen Concentration - - Weight 76.2 kg (168 lb) 07/12/2015 6:15 PM CDT Height - - Body Mass Index 27.12 06/13/2015 3:20 PM CDT documented in this encounter Progress Notes * Sosa Ellis NP - 07/11/2015 1:45 PM CDT Reason For Visit Shelter Visit Chief Complaint prison visit. [facility] prison visit. [facility] History of Present Illness Pt has open area on right lower buttock, just beneath the gluteal fold. Pt has stage II pressure ulcer and pt is not able to move self. No drainage and no infection noted but pt is complaining of pain Multiple Sclerosis (Follow-Up): The patient is being [...] TABLET DAILY WITH FOOD; Therapy: 30Nov2013 to (Evaluate:83Aft6001); Last Rx:28Jan2015 Ordered 4. Fish Oil 1000 MG Oral Capsule; one capsule two times per day; Therapy: 28Jan2015 to (Last Rx:28Jan2015) Ordered 5. Lisinopril 5 MG Oral Tablet; TAKE 1 TABLET DAILY; Therapy: 11Mar2013 to (Evaluate:15Aug2014) Recorded 6. Lyrica 150 MG Oral Capsule; Take one capsule by mouth every morning and at bedtime; Therapy: 87Yfk6121 to (Evaluate:24Oct2015); Last Rx:[id number] Ordered 7. MetFORMIN HCl - 500 MG Oral Tablet; TAKE 1 TABLET TWICE DAILY; Therapy: 09Jul2013 to (Last Rx:[id number]) Ordered 8. Namenda XR 28 MG Oral Capsule Extended Release 24 Hour; ONE DAILY; Therapy: 35Pgy1254 to (Last Rx:[id number]) Ordered 9. NovoFine Autocover 30G X 8 MM Miscellaneous; Therapy: 04Mar2013 to Recorded 10. Simvastatin 20 MG Oral Tablet; TAKE 1 TABLET DAILY AT BEDTIME; Therapy: 66Gls5246 to (Evaluate:51Wly6720) Recorded 11. Victoza 18 MG/3ML SOLN; INJECT 0.6MG SUBCUTANEOUSLY DAILY; Therapy: 23Mar2013 to (Last Rx:[id number]) Ordered Allergies 1. Flagyl CAPS Vitals Recorded: 12Jul2015 06:15PM Temperature 97.1 F Heart Rate 80 Respiration 20 Systolic 110 Diastolic 78 O2 Saturation 98 Weight 168 lb BMI Calculated 27.12 BSA Calculated 1.86 Physical Exam Constitutional General [...] (272.4) (E78.5) 3. Hypertension (401.9) (I10) 4. Insomnia (780.52) (G47.00) 5. Mild vitamin D deficiency (268.9) (E55.9) 6. Decubitus ulcer of buttock, stage 2 (707.05,707.22) (L89.302) 7. Generalized multiple sclerosis (340) (G35) Plan Duoderm on after cleansing leave in place for 72 hours. change every 72 hours or as needed until healed. No other changes made to POC Signatures Electronically signed by : Sosa Ellis NP; Jul 14 2015 9:45PM GAS SYSTEMS WORKER (Author) documented in this encounter Plan of Treatment Not on file documented as of this encounter Visit Diagnoses Not on filedocumented in this encounter
--- OUTSIDE RECORDS SUMMARY | 2024-09-21 01:22 | XMS_ITS | Encounter Summary ---
Author Organization [facility] Address [address] [place] [address] [place] [address] Care Team Providers Care Pot Firer Name Role Phone Unavailable Primary Care Provider Unavailabl e Encounter Details Date Type Department Care Team (Late st Contact Info) Description 08/21/2015 Abstract [facility] Medical Group Family & Internal Medicine - [place] [address] [place] [address] Aleksandr Blount MD Social History Tobacco Use Types Packs/Day Years Used Date Smoking Tobacco: Never Assessed Comments Unknown Sex and Gender Information Value Date Recorded Sex Assigned at Not on file Legal Sex Female 10:25 PM CDT Gender Identity Not on file Sexual Orientation Not on file documented as of this encounter Progress Notes * Aleksandr Blount MD - 08/21/2015 1:45 PM CST Reason For Visit Jail Visit Chief Complaint Routine Jail visit FCS History of Present Illness HPI Free Text: This patient has dementia, the patient is stable and he seems to be comfortable. The patient currently received the care that is necessary, the patient seems to be in no distress. The patient is taking the medications that are prescribed, with no signs of intolerance.She also has a history of previous CVA and MS. Review of Systems See HPI for pertinent [...] BY MOUTH EVERY DAY; Therapy: 11Mar2013 to (Evaluate:[id number]); Last Rx:30Jul2015 Ordered 12. Lyrica 150 MG Oral Capsule; Take one capsule by mouth every morning and at bedtime; Therapy: 47Pbv0617 to (Evaluate:24Oct2015); Last Rx:[id number] Ordered 13. MetFORMIN HCl - 500 MG Oral Tablet; TAKE 1 TABLET TWICE DAILY; Therapy: 09Jul2013 to (Last Rx:[id number]) Ordered 14. Metoprolol Tartrate 25 MG Oral [...] TAKE 1 TABLET DAILY; Therapy: 30Jul2015 to (Evaluate:41Rbq5765) Recorded 18. Namenda XR 28 MG Oral Capsule Extended Release 24 Hour; ONE DAILY; Therapy: 39Aln7687 to (Last Rx:[id number]) Ordered 19. NovoFine Autocover 30G X 8 MM Miscellaneous; Therapy: 04Mar2013 to Recorded 20. Siltussin SA 100 MG/5ML Oral Syrup; TAKE 5 ML EVERY 4 HOURS NEEDED; Therapy: (Recorded:30Jul2015) to Recorded 21. Victoza 18 MG/3ML SOLN; INJECT 0.6MG SUBCUTANEOUSLY DAILY; Therapy: 23Mar2013 to (Last Rx:[id number]) Ordered Allergies 1. Flagyl CAPS Physical Exam [...] 1. Generalized multiple sclerosis (340) (G35) 2. Hypertension (401.9) (I10) 3. Dementia (294.20) (F03.90) 4. Diabetes mellitus (250.00) (E11.9) Discussion/Summary The patient is doing fine at [...] Electronically signed by : Aleksandr Blount M.D.; Aug 25 2015 11:38AM CHILI PEPPER GRINDER (Author) documented in this encounter Plan of Treatment Not on file documented as of this encounter Visit Diagnoses Not on filedocumented in this encounter
--- OUTSIDE RECORDS SUMMARY | 2024-09-21 01:22 | XMS_ITS | Encounter Summary ---
Author Organization [facility] Address [address] [place] [place] [address] [place] [address] Care Team Providers Care Double Ending Machine Operator Name Role Phone Unavailable Primary Care Provider Unavailabl e Encounter Details Date Type Department Care Team (Latest Contact Info) Description 09/06/2015 Abstract [facility] Medical Group Social History Tobacco [...]
--- OUTSIDE RECORDS SUMMARY | 2024-09-21 01:22 | XMS_ITS | Encounter Summary ---
Author Organization [facility] Address [address] [address] [place] [address] Care Team Providers Care Orthopedic Technician Name Role Phone Unavailable Primary Care Provider Unavailabl e Encounter Details Date Type Department Care Team (Late st Contact Info) Description 07/02/2016 Abstract [facility] Medical Group Family & Internal Medicine - [place] [address] [place] [address] Sosa Ellis NP Social History [...] Sign Reading Time Taken Comments Blood Pressure 100/60 07/02/2016 9:24 AM CDT Pulse 68 07/02/2016 9:24 AM CDT Temperature - - Respiratory Rate - - Oxygen Saturation - - Inhaled Oxygen Concentration - - Weight 73.9 kg (163 lb) 07/02/2016 9:24 AM CDT Height 167.6 cm (5' 6 ) 07/02/2016 9:24 AM CDT Body Mass Index 26.31 07/02/2016 9:24 AM CDT documented in this encounter Progress Notes * Sosa Ellis NP - 07/02/2016 8:00 AM CDT Reason For Visit Residential Visit Chief Complaint prison visit. FCS History of Present Illness HPI Free Text: Pt has had red eye and reported itching with yellow discharge. ATB gtts were given but pt is using them and seems improved at this time. There is no longer any swelling or discoloration of the eye lids but there is injected conjunctiva. Review of Systems See HPI for pertinent [...] BY MOUTH EVERY DAY; Therapy: 11Mar2013 to (Evaluate:93Coh2741); Last Rx:30Jul2015 Ordered 12. Lyrica 150 MG Oral Capsule; Take one capsule by mouth every morning and at bedtime; Therapy: 70Xhd4980 to (Evaluate:09Dec2016); Last Rx:[id number] Ordered 13. MetFORMIN HCl - 500 MG Oral Tablet; TAKE 1 TABLET TWICE DAILY; Therapy: 80Zyv5641 to (Last Rx:[id number]) Ordered 14. Metoprolol Tartrate 25 MG Oral [...] TAKE 1 TABLET DAILY; Therapy: 30Jul2015 to (Evaluate:73Pwz3217) Recorded 18. Namenda XR 28 MG Oral Capsule Extended Release 24 Hour; ONE DAILY; Therapy: 21Jun2013 to (Last Rx:[id number]) Ordered 19. NovoFine Autocover 30G X 8 MM Miscellaneous; Therapy: 04Mar2013 to Recorded 20. Siltussin SA 100 MG/5ML Oral Syrup; TAKE 5 ML EVERY 4 HOURS NEEDED; Therapy: (Recorded:30Jul2015) to Recorded 21. Victoza 18 MG/3ML SOLN; INJECT 0.6MG SUBCUTANEOUSLY DAILY; Therapy: 23Mar2013 to (Last Rx:[id number]) Ordered 22. Vitamin D 2000 UNIT Oral Capsule; take 1 tab Daily; Therapy: 03Mar2016 to (Evaluate:99Fzw7650); Last Rx:03Mar2016 Ordered Allergies 1. Flagyl CAPS Vitals Recorded: 02Jul2016 09:24AM Temperature 97.7 F Heart Rate 68 Respiration 18 Systolic 100 Diastolic 60 Height 5 ft 6 in Weight 163 lb BMI Calculated 26.31 BSA Calculated 1.83 Physical Exam Constitutional General appearance: Abnormal. chronically [...] person. Mood and affect: Normal. Assessment 1. Red eyes (379.93) (H57.8) Plan Pt is doing well on the Tobramycin 3%for the 5 days of therapy as previously ordered. Continue contact precautions with care Signatures Electronically signed by : Sosa Ellis NP; Jul 07 2016 12:50PM TICKET SCHEDULER (Author) documented in this encounter Plan of Treatment Not on file documented as of this encounter Visit Diagnoses Not on filedocumented in this encounter
--- OUTSIDE RECORDS SUMMARY | 2024-09-21 01:22 | XMS_ITS | Encounter Summary ---
Author Organization [facility] Address [address] [address] [place] [address] Care Team Providers Care Paper Final Inspector Name Role Phone Unavailable Primary Care Provider Unavailabl e Encounter Details Date Type Department Care Team (Latest Contact Info) Description 07/13/2015 Abstract [facility] Medical Group Social History Tobacco Use [...]
--- OUTSIDE RECORDS SUMMARY | 2024-09-21 01:22 | XMS_ITS | Encounter Summary ---
Author Organization [facility] Address [address] [place] [address] [place] [address] Care Team Providers Care Tube Carrier Name Role Phone Unavailable Primary Care Provider Unavailabl e Encounter Details Date Type Department Care Team (Latest Contact Info) Description 08/06/2015 Abstract [facility] , Adam Keen MD Social History Tobacco Use Types Packs/Day Years Used Date Smoking Tobacco: Never Assessed Comments Unknown Sex and Gender Information Value Date Recorded Sex Assigned at Not on file Legal Sex Female 10:25 PM CDT Gender Identity Not on file Sexual Orientation Not on file documented as of this encounter Progress Notes * Adam Keen Md, MD - 08/06/2015 8:42 AM CST [facility] Authorization Release of Information First Name: Emelina Gambino initial: Last Name: Willa Wilhelm Joyce authorize [facility] to release any and all healthcare information about me to my [facility] personal health record for my own uses and purposes. I acknowledge that suchhealthcare information may include the following: x-rays, clinical diagnosis, histories of present illnesses, immunizations, allergies, prescription drug information, laboratory results, diagnostic screening and testing, clinical procedures, medical research, clinical trials, billing, account, and insurance information. I acknowledge that such healthcare information may include information regarding mental health screenings and/or treatment, including psychotherapy notes; HIV/AIDS, infectious disease, sexually transmitted infection testing, screening, diagnosis, and/or treatment; genetic testing; history of domestic violence, child abuse, and/or family abuse; and, substance/alcohol use and treatment history. I acknowledge that with this authorization [facility] may disclose any information or records (within the scope of the authorization) that [facility] has received about me from other healthcare Practices or facilities. [facility] may, within its discretion, withhold from disclosure any of the above information as permitted or required by law. Access to treatment or services may not be denied to me if I decline to sign this Authorization or revoke my Authorization. However, without this Authorization, my Practice will not electronically release my healthcare information to my [facility] personal health record. I may revoke this Authorization at any time. Such revocation will promptly take effect except to the extent that [facility] already has acted based on this Authorization. I may revoke this Authorization by removing [facility] as a health care Practice with whichI want to be connected on my [employer] account or providing my request to [facility]. However, I acknowledge that data previously submitted by [facility] as authorized by me prior to my subsequent revocation of this Authorization will remain in my [employer] account. I understand that I may delete my [facility] account any time. This authorization shall end upon the earliest of: a) the termination of the connection between my healthcare Practice and my [employer] Account; or b) upon my written request submitted to [email or web address]. For Authorized Representatives of Patients younger than 18 years old: This Authorization shall upon the earliest of: (1) the date the minor reaches the age of 18; or (2) the date [facility] receives written revocation from the minor, as an emancipated minor with legal authority to managehis/her own healthcare. I understand that the information submitted to my [facility] account is subject to the privacy and security protections of applicable Federal and State laws. I further understand and acknowledge that the manner in which [facility] protects my personal information is detailed in the [facility] Privacy Policy and the [facility] Terms of Use. I understand that [facility] is not responsible for the security of data stored in the [employer] database, and that the owners of [employer] are responsible for ensuring the securityof the data stored in [employer]. I have the right to receive a copy of this Authorization and may do so by clicking [Print] above. Signed on 08/03/2015 Please complete the following information: Emelina Crouch 1940 If signing on behalf of a Patient, please complete the following: Relationship to Patient: [Place x in the appropriate box below] [X] Patient [ ] Parent/Guardian/Other Legal Certified Nurse Aide By clicking [I ACCEPT], I acknowledge and agree to the terms of this Authorization. documented in this encounter Plan of Treatment Not on file documented as of this encounter Visit Diagnoses Not on filedocumented in this encounter
--- OUTSIDE RECORDS SUMMARY | 2024-09-21 01:23 | XMS_ITS | Encounter Summary ---
Author Organization [facility] Address [facility] [place] [address] [place] [address] Care Team Providers Care Geriatric Nurse Assistant Name Role Phone Aleksandr Reynolds MD Primary Care Provider Antonio elena Encounter Details Date Type Department Care Team (Latest Contact Info) Description 11/03/2014 Abstract [facility] Medical Group , Adam Keen MD Social [...] Procedure Name Priority Date/Time Associated Diagnosis Comments CARDIOLOGY GENERIC Routine 11/03/2014 2: 50 PM REVERBERATORY FURNACE SUPERVISOR documented in this encounter Results * CARDIOLOGY GENERIC (11/03/2014 2:50 PM REVERBERATORY FURNACE SUPERVISOR) 11/03/2014 2:50 PM REVERBERATORY FURNACE SUPERVISOR 11/03/2014 2:50 PM REVERBERATORY FURNACE SUPERVISOR Narrative [facility] TO EPIC CONVERSION - 11/14/2014 8:52 AM REVERBERATORY FURNACE SUPERVISOR ?? MARY SANTOYO MD: LOI MARIA MD ?? ACCT: [id number] ?? ADMIT/SERVICE DATE: 11/02/14 DISCHARGE DATE: 11/02/14 ?? : 1940 PT TYPE: DEP ER ?? SEX: F ORD SITE: [facility] ? CHART DOCUMENT ?? EKG NO: ?? DATE: ??11/02/2014 ? ORDER #: ??[id number] ?EKG REPORT ? RATE: ??111 ? INTERPRETATION: ?? SINUS TACHYCARDIA. [place] AND QRS WITHIN NORMAL LIMITS. ??LOW VOLTAGE IN ?? GENERAL. NO EVIDENCE OF ACUTE INJURY OR ACUTE ISCHEMIA. ??SINUS TACHYCARDIA. ? ELECTRONICALLY SIGNED BY ?? ALEKSANDR REYNOLDS MD 11/14/2014 07:56 A ? AA/SP ?? 11/03/201402:50 P ?? 11/06/2014 08:38 A ?? JOB NO: ??[id number] ??DOC NO: ??[id number] ?? CC: ?ALEKSANDR REYNOLDS MD ?OTHER COPY ? Procedure Note Adam Berumen MD - 07/21/2018 MARY SANTOYO MD: LOI MARIA MD ACCT: [id number] ADMIT/SERVICE DATE: 11/02/14 DISCHARGE DATE: 11/02/14 : 1940 PT TYPE: DEP ER SEX: F ORD SITE: [facility] CHART DOCUMENT EKG NO: DATE: 11/02/2014 ORDER #: [id number] EKG REPORT RATE: 111 INTERPRETATION: SINUS TACHYCARDIA. [place] AND QRS WITHIN NORMAL LIMITS. LOW VOLTAGE IN GENERAL. NO EVIDENCE OF ACUTE INJURY OR ACUTE ISCHEMIA. SINUSTACHYCARDIA. ELECTRONICALLY SIGNED BY ALEKSANDR REYNOLDS MD 11/14/2014 07:56 A AA/SP 11/03/201402:50 P 11/06/2014 08:38 A JOB NO: [id number] DOC NO: [id number] CC: ALEKSANDR REYNOLDS MD OTHER COPY us Generic Conversion Md [facility] Final Result Performing Organization Address City/State/[facility] Co de Phone Number [facility] TO EPIC CONVERSION documented in this encounter Visit Diagnoses Not on filedocumented in this encounter Care Teams Geriatric Nurse Assistant Relationship Specialty Start Date End Date Aleksandr Reynolds MD PCP - General 11/02/14 01/31/15 documented as of this encounter
--- OUTSIDE RECORDS SUMMARY | 2024-09-21 01:23 | XMS_ITS | Encounter Summary ---
Author Organization [facility] Address [address] [place] [address] [place] [address] Care Team Providers Care Chest Pain Coordinator Name Role Phone Aleksandr Blount MD Primary Care Provider U kassy Encounter Details Date Type Department Care Team (Latest Contact Info) Description 11/02/2014 Abstract [facility] Medical Group Aleksandr Blount MD Social History [...] on filedocumented in this encounter Care Teams Chest Pain Coordinator Relationship Specialty Start Date End Date Aleksandr Blount MD PCP - General 11/02/14 01/31/15 documented as of this encounter
--- OUTSIDE RECORDS SUMMARY | 2024-09-21 01:23 | XMS_ITS | Encounter Summary ---
Author Organization [facility] Address [facility] [place] [address] [place] [address] Care Team Providers Care Pensions Retirement Plan Specialist Name Role Phone Aleksandr Blount MD Primary Care Provider Antonio elena Encounter Details Date Type Department Care Team (Late st Contact Info) Description 11/15/2014 Abstract [facility] Medical Group Family & Internal Medicine - [place] [address] [place] [address] Sosa Ellis NP Social History [...] Sign Reading Time Taken Comments Blood Pressure 134/82 11/15/2014 3:18 PM DELICATESSEN CLERK Pulse 80 11/15/2014 3:18 PM DELICATESSEN CLERK Temperature - - Respiratory Rate - - Oxygen Saturation - - Inhaled Oxygen Concentration - - Weight 74.6 kg (164 lb 8 oz) 11/15/2014 3:18 PM DELICATESSEN CLERK Height - - Body Mass Index 26.55 07/19/2014 1:24 PM CDT documented in this encounter Progress Notes * Sosa Ellis NP - 11/15/2014 2:15 PM CST Reason For Visit Fdc Visit Chief Complaint Chief Complaint Free Text: longterm visit. FCS History of Present Illness HPI Free Text: Requested visit by the staff. Pt has just recently developed two pressure ulcers on each of the buttocks. Pt is not able to move self in the bed because has MS. Pt is alert mentally and knows what isgoing on but is not able to physically do any of her own ADLs. Pt has to have joana lift transfers unable to propel w/c and is positioned by staff. Pt is incontinent of bowel and bladder. Has to be ch anged by staff and all hygiene given by staff. Pt has just started duoderm dressings to the ulcers on the buttocks so these were not removed during the visit, but pt has a discoloration now over the left heel and would like to have evaluated. Pt has just been readmitted from the hospital following treatment for pneumonia. Discoloration of the heels and the buttocks were all since the hospital stay. Review of Systems Complete-Female: See HPI for pertinent positives. Constitutional: as noted in HPI. ENT: negative. Cardiovascular: negative. Respiratory: as noted in HPI. Gastrointestinal: negative. Genitourinary: as noted in HPI. Musculoskeletal: as noted in HPI. Integumentary as noted in HPI. Neurological As Noted in HPI and confusion. Psychiatric: negative. Active Problems 1. Bruising (924.9) (T14.8) 2. Cellulitis (682.9) (L03.90) 3. Dementia (294.20) (F03.90) 4. Diabetes mellitus (250.00) (E11.9) 5. 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 Fungal infection (117.9) (B49) 7. Generalized multiple sclerosis (340) (G35) 8. Hyperlipidemia (272.4) (E78.5) 9. Hypertension (401.9) (I10) 10. Impaired weight bearing (V49.89) (Z91.89) 11. Ingrowing nail with infection (703.0) (L60.0) 12. Insomnia (780.52) (G47.00) 13. Mild vitamin D deficiency (268.9) (E55.9) 14. Need for prophylactic vaccination and inoculation against influenza (V04.81) (Z23) 15. Open wound of toe with complication (893.1) (L56.455T) ?? medial toe Great toe. Family History Mother 1. No pertinent family history Social History ?? Marital History - (V61.03) ?? Unknown if ever smoked Current Meds 1. Aspirin 81 MG Oral Tablet; TAKE 1 TABLET DAILY; Therapy: 10Aug2013 to (Evaluate:05Aug2014) Recorded 2. Donepezil HCl - 10 MG Oral Tablet; TAKE 1 TABLET BY MOUTH AT BEDTIME; Therapy: 24Mar2013 to (Evaluate:15Aug2014) Recorded 3. Fenofibrate 145 MG Oral Tablet; Therapy: 30Nov2013 to Recorded 4. Lisinopril 5 MG Oral Tablet; TAKE 1 TABLET DAILY; Therapy: 11Mar2013 to (Evaluate:15Aug2014) Recorded 5. Lyrica 150 MG Oral Capsule; Take 1 capsule twice daily; Therapy: 12Jan2013 to (Evaluate:18Oct2014) Recorded 6. MetFORMIN HCl - 500 MG Oral Tablet; TAKE 1 TABLET TWICE DAILY; Therapy: 09Jul2013 to (Last Rx:[id number]) Ordered 7. Mupirocin 2 % External Ointment; Therapy: 29Mar2014 to Recorded 8. Namenda XR 28 MG Oral Capsule Extended Release 24 Hour; ONE DAILY; Therapy: 98Jfl5895 to (Last Rx:[id number]) Ordered 9. NovoFine Autocover 30G X 8 MM Miscellaneous; Therapy: 04Mar2013 to Recorded 10. Nystatin [id number] UNIT/GM External Cream; Therapy: 22Oct2014 to Recorded 11. Permethrin 5 % External Cream; Therapy: 22Jul2014 to Recorded 12. Simvastatin 40 MG Oral Tablet; TAKE 1 TABLET BY MOUTH AT BEDTIME; Therapy: 29Mar2013 to (Evaluate:15Aug2014) Recorded 13. Sodium Chloride 0.9 % Irrigation Solution; Therapy: 04Aug2013 to Recorded 14. Tobramycin Sulfate 0.3 % SOLN; Therapy: 29Jul2013 to Recorded 15. Victoza 18 MG/3ML SOLN; INJECT 0.6MG SUBCUTANEOUSLY DAILY; Therapy: 23Mar2013 to (Last Rx:[id number]) Ordered 16. Victoza 18 MG/3ML Subcutaneous Solution Pen-injector; Therapy: 22Dec2013 to Recorded Allergies 1. Flagyl CAPS Vitals Vital Signs [Data Includes: Current Encounter] Recorded: 15Nov2014 03:18PM Temperature 97.3 F Heart Rate 80 Respiration 18 Systolic 134 Diastolic 82 Weight 164 lb 8 oz BMI Calculated 26.55 BSA Calculated 1.84 Physical Exam Constitutional General appearance: Abnormal. Chronically [...] lift fortransfers) Skin Skin and subcutaneous tissue: Abnormal. (There is a candidal-type rash over the buttocks bilaterally that extends into the genital area. It seems to be healing slowly with the Arnoldo. There is some peeling. It is not confluent. It is in patches. Patient denies any pain. Pt has duoderm to each buttocklower gluteal area and now has discoloration purple center.5 cm x 2 mm horizontal longer than vertical. ) Erythema and improved. Neurologic Cranial nerves: Cranial nerves 2-12 intact. Psychiatric Orientation to person, place, and time: Abnormal. Patient is disoriented to place and time but not to person. Mood and affect: Normal. Assessment 1. Generalized multiple sclerosis (340) (G35) 2. Decubitus ulcer of buttock, stage 2 (707.05,707.22) (L89.302) 3. Decubitus ulcer, heel (707.07,707.20) (L89.609) 4. Dementia (294.20) (F03.90) 5. 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 Urine incontinence (788.30) (R32) 7. Bowel incontinence (787.60) (R15.9) Plan Pt has two stage two decubitus present on the buttocks current tx with duoderm Pt has state I decubitus on the left heel with purple coloration Skin prep to the left heel TID and use of overlay alternating air loss mattress to the bed Possible allen catherter if the ulcer on the buttocks do not make some progress in a week. Re-ck pt skin status next week. Signatures Electronically signed by : Sosa Ellis NP; Nov 19 2014 1:58PM DELICATESSEN CLERK (Author) documented in this encounter Plan of Treatment Not on file documented as of this encounter Visit Diagnoses Not on filedocumented in this encounter Care Teams Pensions Retirement Plan Specialist Relationship Specialty Start Date End Date Aleksandr Blount MD PCP - General 11/02/14 01/31/15 documented as of this encounter
--- OUTSIDE RECORDS SUMMARY | 2024-09-21 01:23 | XMS_ITS | Encounter Summary ---
Author Organization [facility] Address [address] [place] [address] [place] [address] Care Team Providers Care Lap Machine Operator Name Role Phone Aleksandr Blount MD Primary Care Provider U kassy Encounter Details Date Type Department Care Team (Latest Contact Info) Description 11/26/2014 Abstract [facility] Medical Group [...] on filedocumented in this encounter Care Teams Lap Machine Operator Relationship Specialty Start Date End Date Aleksandr Blount MD PCP - General 11/02/14 01/31/15 documented as of this encounter
--- OUTSIDE RECORDS SUMMARY | 2024-09-21 01:23 | XMS_ITS | Encounter Summary ---
Author Organization [facility] Address [address] [place] [address] [place] [address] Care Team Providers Care Product Management Specialist Name Role Phone Unavailable Primary Care Provider Unavailabl e Encounter Details Date Type Department Care Team (Latest Contact Info) Description 02/14/2015 Abstract [facility] Medical Group Social History Tobacco Use [...]
--- OUTSIDE RECORDS SUMMARY | 2024-09-21 01:23 | XMS_ITS | Encounter Summary ---
Author Organization [facility] Address [address] [place] [address] [place] [address] Care Team Providers Care Production Line Operator Name Role Phone Aleksandr Blount MD Primary Care Provider U kassy Encounter Details Date Type Department Care Team (Latest Contact Info) Description 11/19/2014 Abstract [facility] Medical Group Social History Tobacco [...] on filedocumented in this encounter Care Teams Production Line Operator Relationship Specialty Start Date End Date Aleksandr Blount MD PCP - General 11/02/14 01/31/15 documented as of this encounter
--- OUTSIDE RECORDS SUMMARY | 2024-09-21 01:23 | XMS_ITS | Encounter Summary ---
Author Organization [facility] Address [address] [address] [place] [address] Care Team Providers Care Door Cutter Name Role Phone Aleksandr Blount MD Primary Care Provider U kassy Encounter Details Date Type Department Care Team (Latest Contact Info) Description 10/26/2014 Abstract [facility] Medical Group Social History Tobacco Use [...] on filedocumented in this encounter Care Teams Door Cutter Relationship Specialty Start Date End Date Aleksandr Blount MD PCP - General 11/02/14 01/31/15 documented as of this encounter
--- OUTSIDE RECORDS SUMMARY | 2024-09-21 01:23 | XMS_ITS | Encounter Summary ---
Author Organization [place] Address [address] [place] [address] [place] [address] Care Team Providers Care Accounting Clerk Name Role Phone Unavailable Primary Care Provider Unavailabl e Encounter Details Date Type Department Care Team (Latest Contact Info) Description 02/15/2015 Abstract [facility] Medical Group Social History Tobacco Use [...]
--- OUTSIDE RECORDS SUMMARY | 2024-09-21 01:23 | XMS_ITS | Encounter Summary ---
Author Organization [facility] Address [address] [place] [place] [address] [place] [address] Care Team Providers Care Wagon Driver Salesperson Name Role Phone Aleksandr Blount MD Primary Care Provider U kassy Encounter Details Date Type Department Care Team (Late st Contact Info) Description 12/19/2014 Abstract [facility] Medical [facility] Family & Internal Medicine - [place] [address] [place] [address] Aleksandr Blount MD Social History Tobacco Use Types Packs/Day Years Used Date Smoking Tobacco: Never Assessed Comments Unknown Sex and Gender Information Value Date Recorded Sex Assigned at Not on file Legal Sex Female 10:25 PM CDT Gender Identity Not on file Sexual Orientation Not on file documented as of this encounter Progress Notes * Aleksandr Blount MD - 12/19/2014 4:30 PM CDT Reason For Visit Detention Visit Chief Complaint Chief Complaint Free Text: Routine Detention visit. History of Present Illness HPI Free Text: This patient has dementia, the patient is stable and he seems to be comfortable. The patient currently received the care that is necessary, the patient seems to be in no distress. The patient is taking the medications that are prescribed, with no signs of intolerance. Review of Systems Complete-Female: Constitutional: no fever and no chills. Eyes: negative. ENT: negative. Cardiovascular: negative. Gastrointestinal: negative. Musculoskeletal: She doesn't ambulate, diffuse joint pain and joint stiffness. Integumentary negative. Neurological confusion. Endocrine muscle weakness. Active Problems 1. Bowel incontinence (787.60) (R15.9) [...] Capsule; Take 1 capsule twice daily; Therapy: [id number] to (Evaluate:18Oct2014) Recorded 6. MetFORMIN HCl - 500 MG Oral Tablet; TAKE 1 TABLET TWICE DAILY; Therapy: 09Jul2013 to (Last Rx:[id number]) Ordered 7. Mupirocin 2 % External Ointment; Therapy: 29Mar2014 to Recorded 8. Namenda XR 28 MG Oral Capsule Extended Release 24 Hour; ONE DAILY; Therapy: 72Kwn3727 to (Last Rx:[id number]) Ordered 9. NovoFine Autocover 30G X 8 MM Miscellaneous; Therapy: 04Mar2013 to Recorded 10. Nystatin 512854 UNIT/GM External Cream; Therapy: 22Oct2014 to Recorded [...] 0.6MG SUBCUTANEOUSLY DAILY; Therapy: 23Mar2013 to (Last Rx:[id number]) Ordered 16. Victoza 18 MG/3ML Subcutaneous Solution Pen-injector; Therapy: 22Dec2013 to Recorded Allergies 1. Flagyl CAPS Assessment 1. 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 Generalized multiple sclerosis (340) (G35) 3. Hyperlipidemia (272.4) (E78.5) 4. Dementia (294.20) (F03.90) 5. Diabetes mellitus (250.00) (E11.9) 6. Fungal infection (117.9) (B49) Discussion/Summary Discussion Summary Free Text: The patient is doing fine at this [...] Electronically signed by : Aleksandr Blount M.D.; Dec 22 2014 7:37AM REHABILITATION TEACHER (Author) documented in this encounter Plan of Treatment Not on file documented as of this encounter Visit Diagnoses Not on filedocumented in this encounter Care Teams Wagon Driver Salesperson Relationship Specialty Start Date End Date Aleksandr Blount MD PCP - General 11/02/14 01/31/15 documented as of this encounter
--- OUTSIDE RECORDS SUMMARY | 2024-09-21 01:23 | XMS_ITS | Encounter Summary ---
Author Organization [facility] Address [address] [place] [address] [place] [address] Care Team Providers Care Nc Manager Name Role Phone Unavailable Primary Care Provider Unavailabl e Encounter Details Date Type Department Care Team (Late st Contact Info) Description 02/01/2015 Abstract [facility] [place], [place] [address] Oscar Bernard MD [address] [place] [id number] Social History Tobacco Use Types Packs/Day Years Used Date Smoking Tobacco: Never Assessed Comments Unknown Sex and Gender Information Value Date Recorded Sex Assigned at Not on file Legal Sex Female 10:25 PM CDT Gender Identity Not on file Sexual Orientation Not on file documented as of this encounter Plan of Treatment Not on file documented as of this encounter Visit Diagnoses Diagnosis Calculus of bile duct Calculus of bile duct without mention of cholecystitis or obstruction documented in this encounter
--- OUTSIDE RECORDS SUMMARY | 2024-09-21 01:23 | XMS_ITS | Encounter Summary ---
Author Organization [facility] Address [address] [place] [address] [place] [address] Care Team Providers Care Rad Tech Name Role Phone Aleksandr Blount MD Primary Care Provider Antonio elena Encounter Details Date Type Department Care Team (Latest Contact Info) Description 11/05/2014 Abstract [facility] Medical Group , Adam Keen MD Social History Tobacco Use Types Packs/Day Years Used Date Smoking Tobacco: Never Assessed Comments Unknown Sex and Gender Information Value Date Recorded Sex Assigned at Not on file Legal Sex Female 10:25 PM CDT Gender Identity Not on file Sexual Orientation Not on file documented as of this encounter Procedure Notes * Aleksandr Blount MD - 11/05/2014 9:39 AM CST [place] [address] Patient: MARY SANTOYO Med Rec#: [id number] Birthdate: 1940 Admit/Svce Date: 11/02/2014 Disch Date: 11/08/2014 Attending Md: MIESHA MOREL MD CHART DOCUMENT ADDENDUM Gertrudis Scott M.D. hereby attest that I signed this document on 11/05/2014 07:11 PM. However, due to a technical error in the facilities medical record system, my electronic signature was not appropriately captured on the document. The date of my signature was able to be accurately determined by examining the electronic medical record audit trail, which was completed by the facility on my behalf. I do hereby attest that this information is true, accurate and complete to the best of my knowledge. Electronically Signed By: YOVANNY SCOTT M.D. 12/11/2014 05:35 P YOVANNY SCOTT M.D. D: #[id number] P/dw Document # [id number] Report Type:OP cc: Edwardo PEDRAZA M.D. SYED ASIF HUSSAIN, MD PANKAJ KAUL, M.D. BERNARD SZOPA, M.D. CHART DOCUMENT PREOPERATIVE DIAGNOSIS: Cholecystitis. POSTOPERATIVE DIAGNOSIS: Cholecystitis with choledocholithiasis. SURGERY PERFORMED: Laparoscopic cholecystectomy with intraoperative cholangiograms. DATE: 11/05/2014 SURGEON: YOVANNY SCOTT M.D. HABILITATION ASSISTANT: ANESTHESIA: General endotracheal anesthesia. FINDINGS: Acutely inflamed gallbladder with dilated cystic duct. Cholangiograms showed a dilated common bile duct filled with multiple gallstones. There was not complete obstruction of the common bile duct. ESTIMATED BLOOD LOSS: About 30 mL. COMPLICATIONS: No complications. INDICATION: Patient is a 74-year-old female with MS and dementia who was admitted to the hospital with mental status changes, abdominal pain. Workup revealed gallstones, bilirubin of 4.5. She underwent endoscopic ultrasound. No gallstones were seen. Her bilirubin normalized. Her pain and symptoms were felt to be secondary to cholecystitis, and she presented for urgent cholecystectomy. OPERATIVE NOTE: Patient brought to the operating room, placed on table in the supine position. General anesthesia without complication. Abdomen was prepped and draped in usual sterile fashion. Curvilinear infraumbilical abdominal incision was made. The umbilical raphe was dissected free sharply, grasped with 2 Tab clamps, incised transversely. Finger was inserted into abdominal cavity to ensure no adhesions. Stay sutures of 0 Vicryl were placed on either side. Angel trocar was inserted. CO2 insufflation was done. The video laparoscope was inserted. A 10 mm port was placed in superior epigastric midline. Two 5 mm ports were placed in the right flank, one in the anterior axial line, one in midclavicular line. There was extensive adhesions to the anterior abdominal wall, in the region of the epigastric region. These were taken down with electrocauterization. This was to facilitate exposure of the gallbladder itself. Once the adhesions were taken down, gallbladder was grasped with 2 blunt graspers through the lateral ports and retracted superiorly. The patient had significant fat in the upper abdomen, and another 11 mm port was placed in the left midclavicular line under direct vision. The skin was incised with an 11 blade. An Endo fan retractor was inserted into the abdominal cavity to pull down on some of the fat. Patient was placed in steep reverse Trendelenburg as well to facilitate exposure. Blunt dissection was performed to free up the fat around the infundibular region of the gallbladder. An anterior artery was identified. This was doubly clipped, proximally, singly clipped distally, divided. Posterior to this, the cystic duct was able to be identified. The cystic duct was circumferentially dissected free. Was found to be dilated. Clip was placed across the cystic duct adjacent to the gallbladder, and the cystic duct was partially transected. Cholangiocatheter was inserted. Cholangiograms performed showed a dilated common bile duct with multiple filling defects distally. There was some flow of contrast into the duodenum. The patient will be re-evaluated postoperatively for ERCP. Cholangiocatheter was removed. The cystic duct was doubly clipped proximally, then divided. Directly posterior to the cystic duct, the main cystic artery was dissected free, doubly clipped proximally, singly clipped distally, divided. Posterior branch of cystic artery was doubly clipped proximally, singly clipped distally, divided. The gallbladder was then resected out of the liver with electrocautery device. The gallbladder was removed and brought out through the umbilical fascial incision. Reinspection revealed no bleeding or bile leakage. The right upper quadrant was irrigated with normal saline. Ports were removed under direct vision. There was no bleeding from the port sites. Pneumoperitoneum was released. The umbilical fascial incision was closed with interrupted 0 Vicryl sutures. Skin and subcutaneous tissue were infiltrated with 1% lidocaine with epinephrine. Subcutaneous tissue closed with interrupted 3-0 Vicryl sutures. The skin was closed with running subcuticular 4-0 Vicryl stitch. Steri-Strips, dressings were applied. Patient tolerated the procedure well. There were no complications. Electronically Signed By: YOVANNY SCOTT M.D. A #[id number] P/ma cc: Edwardo PEDRAZA M.D. GLENNMD SANAM AMAYA M.D. BERNARD SZOPA, M.D. documented in this encounter Plan of Treatment Not on file documented as of this encounter Visit Diagnoses Not on filedocumented in this encounter Care Teams Rad Tech Relationship Specialty Start Date End Date Aleksandr Blount MD PCP - General 11/02/14 01/31/15 documented as of this encounter
--- OUTSIDE RECORDS SUMMARY | 2024-09-21 01:23 | XMS_ITS | Encounter Summary ---
Author Organization [facility] Address [address] [place] [address] [place] [address] Care Team Providers Care Fundraising Consultant Name Role Phone Unavailable Primary Care Provider Unavailabl e Encounter Details Date Type Department Care Team (Latest Contact Info) Description 02/01/2015 Abstract [facility] Medical Group Aleksandr Blount MD Social History Tobacco Use Types Packs/Day Years Used Date Smoking Tobacco: Never Assessed Comments Unknown Sex and Gender Information Value Date Recorded Sex Assigned at Not on file Legal Sex Female 10:25 PM CDT Gender Identity Not on file Sexual Orientation Not on file documented as of this encounter Procedure Notes * Aleksandr Blount MD - 02/01/2015 7:49 AM CDT [place] [address] Patient: MARY SANTOYO Med Rec#: [id number] Birthdate: 1940 Admit/Svce Date: 02/01/2015 Disch Date: Attending Md: THOMAS CHAUDHRY MD CHART DOCUMENT PREOPERATIVE DIAGNOSIS: POSTOPERATIVE DIAGNOSIS: SURGERY PERFORMED: Endoscopic retrograde cholangiopancreatography. DATE: 02/01/2015 SURGEON: THOMAS CHAUDHRY M.D. SOAP TENDER: HISTORY OF PRESENT ILLNESS: This patient presents for followup ERCP. Patient had a laparoscopic cholecystectomy, found to have common duct stones. ERCP done on November 06 revealed small pigment stones which were removed. I had to explore the duct several times with a basket and a balloon. A pancreatic duct stent and a common bile duct stent was placed. She presents now for removal of the stent and reexploration of her common duct. She has been doing well since the surgery. No other GI history. PHYSICAL EXAMINATION: She is a mildly demented 74-year-old in no acute distress. Vital signs normal. Chest clear. Heart rate regular. Abdomen is soft, nontender. DESCRIPTION OF PROCEDURE: Duodenal scope was advanced into the 2nd portion of duodenum. The visualized gastric and duodenal mucosa were normal. Periampullary diverticulum was seen as was seen previously. The common duct stent was removed fluoroscopically. There was no evidence that the pancreatic duct stent was still there. Endoscopically, no pancreatic duct stent was seen either. The duct was then swept with a balloon. The single 5 mm pigment stone was extruded. After sweeping the duct another 5 times, no further stones were retrieved. Careful cholangiogram was taken and no further filling defects were noted. Patient tolerated the procedure well. IMPRESSION: 1. Removal of common duct stent. 2. Removal of common duct stone. Thank you for this referral. Electronically Signed By: THOMAS CHAUDHRY M.D. 02/01/2015 10:52 A THOMAS CHAUDHRY M.D. A #[id number] Brant/daniel cc: Edwardo PEDRAZA M.D. BERNARD SZOPA, M.D. documented in this encounter Plan of Treatment Not on file documented as of this encounter Visit Diagnoses Not on filedocumented in this encounter
--- OUTSIDE RECORDS SUMMARY | 2024-09-21 01:23 | XMS_ITS | Encounter Summary ---
Author Organization [facility] Address [address] [place] [address] [place] [address] Care Team Providers Care Acute Care Nurse Name Role Phone Aleksandr Reynolds MD Primary Care Provider Antonio elena Encounter Details Date Type Department Care Team (Latest Contact Info) Description 11/02/2014 Abstract [facility] Medical Group , Adam Keen MD Social [...] Procedure Name Priority Date/Time Associated Diagnosis Comments CT ABD+PEL W CON Routine 11/02/2014 8:14 PM COMIC ARTIST documented in this encounter Results * CT ABD+PEL W CON (11/02/2014 8:14 PM COMIC ARTIST) Anatomical Region Laterality Modality Abdomen Computed Tomogra phy 11/02/2014 8:14 PM COMIC ARTIST 11/02/2014 8:14 PM COMIC ARTIST Narrative 11/02/2014 9:33 PM COMIC ARTIST MARY SANTOYO ORDERING MD: SANAM LEROY MD ?? ACCT: [id number] ?? ADMIT/SERVICE DATE: 11/02/14 DISCHARGE DATE: ?? : 1940 PT TYPE: ADM IN ?? SEX: F ORD SITE: [facility] ? STUDY DATE REPORT # PROCEDURE CODE PROCEDURE ?? 11/02/14 [id number] ABDOMEN PELVIS W ? EXTORDERID ? [id number] ? ACCESSION NUMBER ?? [id number] ?CHART DOCUMENT ? IMPRESSION: ? CHOLELITHIASIS IS SEEN WITH SUGGESTION OF MILD GALLBLADDER WALL THICKENING ?? AND POSSIBLE SMALL AMOUNT OF PERICHOLECYSTIC FLUID OR INFLAMMATORY CHANGE, ?? IN WHICH ACUTE CHOLECYSTITIS WOULD BE A POSSIBILITY WITH PROMINENT BILE ?? DUCTS. ??ULTRASOUND WOULD BE THE STUDY OF CHOICE FOR FURTHER FOLLOWUP. ? THERE IS INCREASED STOOL IN THE REGION OF THE RECTUM. ??FECAL IMPACTION ?? WOULD BE A POSSIBILITY. ? HISTORY: ??CHOLECYSTITIS, SEPSIS, NAUSEA, AND VOMITING. ? CT ABDOMEN AND PELVIS WITH INTRAVENOUS CONTRAST ? TECHNIQUE: ??AXIAL IMAGING WAS PERFORMED THROUGH THE ABDOMEN AND PELVIS ?? FOLLOWING INTRAVENOUS ADMINISTRATION OF 75 ML OF ISOVUE-370 CONTRAST. ? FINDINGS: ??CALCIFICATIONS ARE SEEN WITHIN THE GALLBLADDER CONSISTENT WITH ?? CHOLELITHIASIS. ??THERE IS MILD INTRAHEPATIC BILIARY DUCTAL DILATATION. ?? THERE IS SUGGESTION OF MILD GALLBLADDER WALL THICKENING. ??THIS WOULD BE ?? BEST EVALUATED BY MEANS OF ULTRASOUND. ? THERE IS NO HEPATIC OR SPLENIC MASS. ??THE ADRENAL GLANDS AND PANCREAS ARE ?? NORMAL. ??THERE IS NO HYDRONEPHROSIS. ??ABDOMINAL AORTIC ATHEROSCLEROTIC ?? CALCIFIED PLAQUE IS SEEN. ? SCANNING WAS CONTINUED DOWN THROUGH THE PELVIS. ??THERE IS A MODERATE AMOUNT ? OF STOOL THROUGHOUT THE COURSE OF THE COLON. ??URINARY BLADDER, UTERUS, AND ?? ADNEXA ARE UNREMARKABLE. ? ELECTRONICALLY SIGNED BY: ?? ARIC FERNÁNDEZ M.D. 11/02/2014 09:31 P ?? ARIC FERNÁNDEZ M.D. ? D: ??11/02/2014 08:14 P ??#[id number] ?? T: ??11/02/2014 09:02 P/MA ? CC: ?ALEKSANDR REYNOLDS M.D. ?THOMAS CHAUDHRY M.D. ?SANAM LEROY M.D. ? Procedure Note Adam Berumen MD - 07/22/2018 MARY SANTOYO MD: SANAM LEROY MD ACCT: [id number] ADMIT/SERVICE DATE: 11/02/14 DISCHARGE DATE: : 1940 PT TYPE: ADM IN SEX: F ORD SITE: [facility] STUDY DATE REPORT # PROCEDURE CODE PROCEDURE 11/02/14 [id number] [facility] [address] ABDOMEN PELVIS W EXTORDERID [id number] ACCESSION NUMBER [id number] CHART DOCUMENT IMPRESSION: CHOLELITHIASIS IS SEEN WITH SUGGESTION OF MILD GALLBLADDER WALLTHICKENING AND POSSIBLE SMALL AMOUNT OF PERICHOLECYSTIC FLUID OR INFLAMMATORYCHANGE, IN WHICH ACUTE CHOLECYSTITIS WOULD BE A POSSIBILITY WITH PROMINENT BILE DUCTS. ULTRASOUND WOULD BE THE STUDY OF CHOICE FOR FURTHER FOLLOWUP. THERE IS INCREASED STOOL IN THE REGION OF THE RECTUM. FECAL IMPACTION WOULD BE A POSSIBILITY. HISTORY: CHOLECYSTITIS, SEPSIS, NAUSEA, AND VOMITING. CT ABDOMEN AND PELVIS WITH INTRAVENOUS CONTRAST TECHNIQUE: AXIAL IMAGING WAS PERFORMED THROUGH THE ABDOMEN AND PELVIS FOLLOWING INTRAVENOUS ADMINISTRATION OF 75 ML OF ISOVUE-370 CONTRAST. FINDINGS: CALCIFICATIONS ARE SEEN WITHIN THE GALLBLADDER CONSISTENT WITH CHOLELITHIASIS. THERE IS MILD INTRAHEPATIC BILIARY DUCTAL DILATATION. THERE IS SUGGESTION OF MILD GALLBLADDER WALL THICKENING. THIS WOULD BE BEST EVALUATED BY MEANS OF ULTRASOUND. THERE IS NO HEPATIC OR SPLENIC MASS. THE ADRENAL GLANDS AND PANCREAS ARE NORMAL. THERE IS NO HYDRONEPHROSIS. ABDOMINAL AORTIC ATHEROSCLEROTIC CALCIFIED PLAQUE IS SEEN. SCANNING WAS CONTINUED DOWN THROUGH THE PELVIS. THERE IS A MODERATEAMOUNT OF STOOL THROUGHOUT THE COURSE OF THE COLON. URINARY BLADDER, UTERUS,AND ADNEXA ARE UNREMARKABLE. ELECTRONICALLY SIGNED BY: ARIC FERNÁNDEZ M.D. 11/02/2014 09:31 P ARIC FERNÁNDEZ M.D. P #[id number] P/MARGIE CC: Edwardo PEDRAZA M.D. PANKAJ KAUL, M.D. us Generic Conversion Md BERUMEN CT Final R esult documented in this encounter Visit Diagnoses Not on filedocumented in this encounter Care Teams Acute Care Nurse Relationship Specialty Start Date End Date Aleksandr Reynolds MD PCP - General 11/02/14 01/31/15 documented as of this encounter
--- OUTSIDE RECORDS SUMMARY | 2024-09-21 01:23 | XMS_ITS | Encounter Summary ---
Author Organization [facility] Address [facility] [facility] [place] [address] [place] [address] Care Team Providers Care Front Office Associate Name Role Phone Aleksandr Blount MD Primary Care Provider Antonio elena Encounter Details Date Type Department Care Team (Late st Contact Info) Description 11/22/2014 Abstract [facility] Family & Internal Medicine - [place] [address] [place] [address] Sosa Ellis NP Social History [...] Sign Reading Time Taken Comments Blood Pressure 111/84 11/22/2014 3:07 PM BIOMASS PRODUCTION MANAGER Pulse 83 11/22/2014 3:07 PM BIOMASS PRODUCTION MANAGER Temperature - - Respiratory Rate - - Oxygen Saturation - - Inhaled Oxygen Concentration - - Weight 74.6 kg (164 lb 8 oz) 11/22/2014 3:07 PM BIOMASS PRODUCTION MANAGER Height - - Body Mass Index 26.55 07/19/2014 1:24 PM CDT documented in this encounter Progress Notes * Sosa Ellis NP - 11/22/2014 4:30 PM CST Reason For Visit Longterm Visit Chief Complaint Chief Complaint Free Text: senior care visit. [facility] History of Present Illness HPI Free Text: Pt 74 y/o female pt with MS has recently began having skin breakdown. Pt has two ulcers on the buttocks and has had fungal infection over the genital area. Pt is incontinent of urine and BM. Considering placement of catheter for this pt to heal, staff believe the ulcers are improved. Review of Systems Complete-Female: See HPI for pertinent positives. Constitutional: as noted in HPI. ENT: negative. Cardiovascular: negative. Respiratory: as noted in HPI. Gastrointestinal: negative. Genitourinary: as noted in HPI. Musculoskeletal: as noted in HPI. Integumentary as noted in HPI. Neurological As Noted in HPI and confusion. Psychiatric: negative. Active Problems 1. Bowel incontinence (787.60) (R15.9) [...] TABLET TWICE DAILY; Therapy: 09Jul2013 to (Last Rx:[id number]) Ordered 7. Mupirocin 2 % External Ointment; Therapy: 29Mar2014 to Recorded 8. Namenda XR 28 MG Oral Capsule Extended Release 24 Hour; ONE DAILY; Therapy: 86Adb2331 to (Last Rx:[id number]) Ordered 9. NovoFine Autocover 30G X 8 MM Miscellaneous; Therapy: 04Mar2013 to Recorded 10. Nystatin 394277 UNIT/GM External Cream; Therapy: 22Oct2014 to Recorded [...] 0.6MG SUBCUTANEOUSLY DAILY; Therapy: 23Mar2013 to (Last Rx:[id number]) Ordered 16. Victoza 18 MG/3ML Subcutaneous Solution Pen-injector; Therapy: 22Dec2013 to Recorded Allergies 1. Flagyl CAPS Vitals Vital Signs [Data Includes: Current Encounter] Recorded: 22Nov2014 03:07PM Temperature 97.7 F Heart Rate 83 Respiration 20 Systolic 111 Diastolic 84 Weight 164 lb 8 oz BMI Calculated [...] longer than vertical. ) Erythema and improved. Fungal rash over the perineum. Neurologic Cranial nerves: Cranial nerves 2-12 intact. Psychiatric Orientation to person, place, and time: Abnormal. Patient is disoriented to place and time but not to person. Mood and affect: Normal. Assessment 1. Fungal infection (117.9) (B49) 2. 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 Decubitus ulcer of buttock, stage 2 (707.05,707.22) (L89.302) Plan Pt is using duoderm over the buttock PU and it is improving fungal infection is being treated with lotrimin and pt had one dose of diflucan and pt rash is better Pt continues to be incontinent of urine and may need to use allen catheter if pt does not improve. No changes in meds and treatments at this time Refer pt to [facility] for treatment of ulcers No allen at this time seems to be improving some continue to monitor pt conditions. Signatures Electronically signed by : Sosa Ellis NP; Nov 25 2014 9:10PM BIOMASS PRODUCTION MANAGER (Author) documented in this encounter Plan of Treatment Not on file documented as of this encounter Visit Diagnoses Not on filedocumented in this encounter Care Teams Front Office Associate Relationship Specialty Start Date End Date Aleksandr Blount MD PCP - General 11/02/14 01/31/15 documented as of this encounter
--- OUTSIDE RECORDS SUMMARY | 2024-09-21 01:23 | XMS_ITS | Encounter Summary ---
Author Organization [facility] Address [address] [place] [address] [place] [address] Care Team Providers Care Arc And Gas Welder Name Role Phone Aleksandr Reynolds MD Primary Care Provider Antonio elena Encounter Details Date Type Department Care Team (Latest Contact Info) Description 11/06/2014 Abstract [facility] , Adam Keen MD Social History Tobacco Use Types Packs/Day Years Used Date Smoking Tobacco: Never Assessed Comments Unknown Sex and Gender Information Value Date Recorded Sex Assigned at Not on file Legal Sex Female 10:25 PM CDT Gender Identity Not on file Sexual Orientation Not on file documented as of this encounter Procedure Notes * Aleksandr Reynolds MD - 11/06/2014 4:18 PM CST [place] [address] Patient: MARY SANTOYO Med Rec#: [id number] Birthdate: 1940 Admit/Svce Date: 11/02/2014 Disch Date: 11/08/2014 Attending Md: MIESHA MOREL MD CHART DOCUMENT PREOPERATIVE DIAGNOSIS: Common duct stones. POSTOPERATIVE DIAGNOSIS: Common duct stones. SURGERY PERFORMED: Endoscopic retrograde cholangiopancreatography, sphincterotomy, removal of stones, placement of stents. DATE: SURGEON: THOMAS CHAUDHRY M.D. TILE HELPER: HISTORY: This patient presents for ERCP. Patient had a laparoscopic cholecystectomy. Found to have common duct stones. This was not seen on endoscopic ultrasound, but there were clearly defects seen on the distal duct at the time of surgery. At time of the procedure, she is improved. She did have pain last night with a bump in her liver function. Presently, she is having no abdominal pain. At the present time, she is afebrile. Vital signs are normal. Skin is warm and dry. She was noted to have a temperature of a 101 at 3 o'clock this morning. Laboratory data this morning did show a white count of only 2.7, though her AST increased to 334 and her total bilirubin went back up to 3.4. At time of the procedure, vital signs are normal. Chest clear. Heart rate regular. Abdomen is soft, nontender. DESCRIPTION OF PROCEDURE: The side-viewing endoscope was passed into the 2nd portion of duodenum. The ampulla of Vater was seen and catheterized. The sphincterotomy was done. Multiple small fragments of pigment stones were encountered and removed. These were present in the main common duct at the bifurcation and within the right posterior duct. These were small slivers of black pigment stones. These were extracted with the balloon extraction catheter. I then trolled the duct several times with a basket and additional fragments were retrieved in that way. Finally, after several passages with both the balloon and the basket receiving no more fragments and with cholangiogram showing no more fragments, I placed 2 stents. A 5-Armenian 2.5 cm pancreatic duct stent was placed into the pancreatic duct with the internal flange removed. I then placed a 10-Armenian 5 cm duct into the common bile duct with good flow of bile and dye. Patient tolerated the procedure well. She additionally received Indocin 50 mg x2 per rectum. IMPRESSION: Multiple fragments of pigment stones within the common duct removed. Since this is an unusual case and she showed signs of recurrent cholangitis, I went ahead and put in a common duct stent. Because the procedure was traumatic, I put in a pancreatic duct stent as well. Plan is to repeat her endoscopic retrograde cholangiopancreatography in 4 to 6 weeks as an outpatient, remove the common duct stent and reexamine her duct. Electronically Signed By: THOMAS CHAUDHRY M.D. 12/01/2014 05:05 P THOMAS CHAUDHRY M.D. P #[id number] P/ma cc: Edwardo PEDRAZA M.D. CHRIST MD SANAM SO M.D. * Aleksandr Reynolds MD - 11/03/2014 2:50 PM CST [place] [address] Patient: MARY SANTOYO [facility] Rec#: [id number] Birthdate: 1940 Admit/Svce Date: 11/02/2014 Disch Date: Attending Md: CHART DOCUMENT EKG NO: DATE: 11/02/2014 ORDER #: [id number] EKG REPORT RATE: 111 INTERPRETATION: Sinus tachycardia. MD and QRS within normal limits. Low voltage in general. No evidence of acute injury or acute ischemia. Sinus tachycardia. Electronically Signed by Aleksandr Reynolds MD 11/14/2014 07:56 A AA/sp 11/03/201402:50 P 11/06/2014 08:38 A Job No: [id number] Doc No: [id number] cc: Aleksandr Reynolds MD Other Copy documented in this encounter Consult Notes * Aleksandr Reynolds MD - 11/06/2014 3:31 PM CST [place] [address] Patient: MARY SANTOYO [facility] Rec#: [id number] Birthdate: 1940 Admit/Svce Date: 11/02/2014 Disch Date: 11/08/2014 Attending Md: MIESHA MOREL MD CHART DOCUMENT ADDENDUM I Eugenia Thompson M.D. hereby attest that I signed this document on 11/07/2014 10:05 AM. However, due to a technical error in [...] best of my knowledge. Electronically Signed By: EUGENIA THOMPSON M.D. 12/11/2014 09:21 A EUGENIA THOMPSON M.D. D: #[id number] P/dw Document # [id number] Report Type:CO cc: Edwardo PEDRAZA M.D. SYED ASIF HUSSAIN, MD PANKAJ KAUL, M.D. BENEDICT PAINTER, M.D. CHART DOCUMENT PRIMARY CARE PROVIDER: ALEKSANDR REYNOLDS ATTENDING PROVIDER: Christ Mendieta MD CONSULTING PROVIDER: THOMAS CHAUDHRY M.D. REASON FOR CONSULTATION: Cholangitis. HISTORY OF PRESENT ILLNESS: Ms. Santoyo is a 74-year-old female who is a resident of a senior living. She was brought to the hospital with vomiting of acute onset as well as some type of altered mental status. Here she was found to have abnormal liver function tests and suspected acute cholecystitis. She was stabilized from a medical standpoint, and then taken to the operating room yesterday by Dr. Scott. She underwent laparoscopic cholecystectomy with IOC. She was found to have acutely inflamed gallbladder with dilated cystic duct, multiple gallstones in the duct, but not complete obstruction. The operative note was reviewed by myself. She is now being prepared for ERCP and perhaps stone extraction as well. The patient has a very flat affect and denies any complaints whatsoever. The exact nature of her mental status changes, present just prior to admission, is not specified. ALLERGIES: Metronidazole, reaction not specified. HABITS: No tobacco. PRESENT MEDICATIONS: List reviewed. No immunosuppressants. She is on piperacillin/tazobactam day #5. PAST MEDICAL HISTORY: She carries a diagnosis of dementia, hypertension, COPD, right leg paralysis, multiple sclerosis, hyperlipidemia, type 2 diabetes mellitus. FAMILY HISTORY: Noncontributory. SOCIAL HISTORY: She is a senior living resident, , and is in [place]. REVIEW OF SYSTEMS: Per patient, allergic immunologic, constitutional, GI, respiratory, musculoskeletal, otherwise negative. PHYSICAL EXAMINATION: This is an elderly female who appears her actual age, no acute distress. T-max of 38.3, which is her first fever. Blood pressure 118/62, pulse 71, respirations 17. Skin: Warm and dry. EENT: The mucous membranes are dry. No thrush. Neck: Without mass. Lungs: Clear to auscultation and percussion. Cardiac: Regular rate and rhythm without gallops. Abdomen: Tympanitic, distended, not tender though I did not palpate the abdomen deeply. Absent bowel sounds. Extremities: No clubbing, cyanosis, edema. Distal musculature seems mildly atrophied. LABORATORY: White count 4.1 on admission, 2.7 today, hemoglobin 12.2, platelets are 132. Lactate was normal. Her potassium low at 3.0, otherwise chemistry panel is normal. Glucose 186. Accu-Cheks in the upper 100s. Bilirubin is 3.4 today, up from 0.8 yesterday, 4.5 on admission. Similarly, the transaminases were high on admission, dropped down toward normal yesterday and back up today. Albumin 2.9. Urinalysis with no infection. Blood cultures were just done this morning. MRSA screen was negative. RADIOLOGY: Cholangiogram as described. Chest x-ray with left basilar atelectasis. ASSESSMENT: 1. Fever due to cholangitis. Alternative sources are unlikely. She may have Pseudomonas, Enterobacter Proteus, Serratia, Escherichia coli, or Klebsiella. Suspicion for carbapenem-resistant Enterobacteriaceae is low. 2. Dementia. 3. Leukopenia, possibly related to her cholangitis with sepsis. RECOMMENDATIONS: 1. Continue piperacillin at the same dosing. 2. Follow up on results of her blood cultures and follow CBC for now and await source control with perhaps stone extraction today. Thank you very much for asking me to see her. Electronically Signed By: EUGENIA THOMPSON M.D. P #[id number] P/ma cc: Edwardo PEDRAZA M.D. SYED ASIF HUSSAIN, MD PANKAJ KAUL, M.D. BENEDICT PAINTER, M.D. documented in this encounter Plan of Treatment Not on file documented as of this encounter Visit Diagnoses Not on filedocumented in this encounter Care Teams Arc And Gas Welder Relationship Specialty Start Date End Date Aleksandr Reynolds MD PCP - General 11/02/14 01/31/15 documented as of this encounter
--- OUTSIDE RECORDS SUMMARY | 2024-09-21 01:23 | XMS_ITS | Encounter Summary ---
Author Organization [facility] Address [address] [place] [address] [place] [address] Care Team Providers Care Grove Superintendent Name Role Phone Aleksandr Blount MD Primary Care Provider U Frieda Salcedo MD Primary Care Provider Unavailab Keiry Salazar CAD TECHNICIAN Unavailable [phone] Encounter Details Date Type Department Care Team (Late st Contact Info) Description 11/02/[address] [facility] [address] [place], [place] [id number] Brian Desir MD [address] [place], [place] [id number] Social History Tobacco Use Types Packs/Day Years Used Date Smoking Tobacco: Never Assessed Comments Unknown Sex and Gender Information Value Date Recorded Sex Assigned at Not on file Legal Sex Female 10:25 PM CDT Gender Identity Not on file Sexual Orientation Not on file documented as of this encounter Plan of Treatment Not on file documented as of this encounter Visit Diagnoses Diagnosis Cholecystitis Cholecystitis, unspecified documented in this encounter Care Teams Grove Superintendent Relationship Specialty Start Date End Date Aleksandr Blount MD PCP - General 11/02/14 01/31/15 Frieda Wasserman MD PCP - General INTERNAL MEDICINE 08/31/18 02/23/20 Keiry Rucker NP Consulting Physician [facility] Facility 10/04/18 04/13/19 documented as of this encounter
--- OUTSIDE RECORDS SUMMARY | 2024-09-21 01:23 | XMS_ITS | Encounter Summary ---
Author Organization [facility] Address [address] [facility] [place] [address] [place] [address] Care Team Providers Care Car Deliverer Name Role Phone Aleksandr Blount MD Primary Care Provider U kassy Encounter Details Date Type Department Care Team (Late st Contact Info) Description 11/02/2014 Abstract [facility] [place] 3rd [facility] [place] [place] [id number] Sonny Molina MD Md, Adam Keen MD Social History Tobacco Use [...] as of this encounter Visit Diagnoses Diagnosis Septicemia (CMS/HCC HHS/HCC) Unspecified septicemia documented in this encounter Care Teams Car Deliverer Relationship Specialty Start Date End Date Aleksandr Blount MD PCP - General 11/02/14 01/31/15 documented as of this encounter
--- OUTSIDE RECORDS SUMMARY | 2024-09-21 01:23 | XMS_ITS | Encounter Summary ---
Author Organization [facility] Address [address] [facility] [address] [place] [address] [place] [address] Care Team Providers Care Computer Information Systems Instructor Name Role Phone Valeria Reynolds MD Primary Care Provider Antonio elena Encounter Details Date Type Department Care Team (Latest Contact Info) Description 11/03/2014 Abstract [facility] , Adam Keen MD [...] Date/Time Associated Diagnosis Comments XR CHEST PORTABLE Routine 11/03/2014 8:0 8 AM SEAMARK ADVANCED OPERATOR MAINTAINER documented in this encounter Results * XR CHEST PORTABLE (11/03/2014 8:08 AM SEAMARK ADVANCED OPERATOR MAINTAINER) Anatomical Region Laterality Modality Chest Radiographic Marlene ging 11/03/2014 8:08 AM SEAMARK ADVANCED OPERATOR MAINTAINER 11/03/2014 8:08 AM SEAMARK ADVANCED OPERATOR MAINTAINER Narrative 11/03/2014 4:27 PM SEAMARK ADVANCED OPERATOR MAINTAINER EMELINA SANTOYO ORDERING MD: GLENN RIVERA MD ?? ACCT: [id number] ?? ADMIT/SERVICE DATE: 11/02/14 DISCHARGE DATE: ?? : 1940 PT TYPE: ADM IN ?? SEX: F ORD SITE: [facility] ? STUDY DATE REPORT # PROCEDURE CODE PROCEDURE ?? 11/03/14 [id number] XR CHEST 1 VIEW PORTABLE ? EXTORDERID ? [id number] ? ACCESSION NUMBER ?? [id number] ?CHART DOCUMENT ? IMPRESSION: ? MINIMAL LEFT BASILAR ATELECTASIS. ? HISTORY: ??SHORTNESS OF BREATH. ? CHEST, SINGLE VIEW ? COMPARISON: ??11/02/14 ? FINDINGS: ??AP UPRIGHT PORTABLE VIEW OF THE CHEST, 11/03/14, 0758 HOURS, ?? SHOWS NORMAL HEART SIZE. ??VASCULARITY IS NORMAL. ??THERE IS MINIMAL ?? ATELECTASIS IN THE LEFT LUNG BASE. ??RIGHT LUNG IS CLEAR. ? ELECTRONICALLY SIGNED BY: ?? DAPHNE ODOM M.D. 11/03/2014 04:26 P ?? DAPHNE ODOM M.D. ? D: ??11/03/2014 08:08 A ??#[id number] ?? T: ??11/03/2014 09:27 A/MA ? CC: ?VALERIA REYNOLDS M.D. ?THOMAS CHAUDHRY M.D. ?SANAM LEROY M.D. ?ELMIRA CORDOVA M.D. ? Procedure Note Adam Berumen MD - 07/21/2018 EMELINA SANTOYO ORDERING MD: GLENN RIVERA MD ACCT: [id number] ADMIT/SERVICE DATE: 11/02/14 DISCHARGE DATE: : 1940 PT TYPE: ADM IN SEX: F ORD SITE: [facility] STUDY DATE REPORT # PROCEDURE CODE PROCEDURE 11/03/14 [id number] XR CHEST 1 VIEW PORTABLE EXTORDERID [id number] ACCESSION NUMBER [id number] CHART DOCUMENT IMPRESSION: MINIMAL LEFT BASILAR ATELECTASIS. HISTORY: SHORTNESS OF BREATH. CHEST, SINGLE VIEW COMPARISON: 11/02/14 FINDINGS: AP UPRIGHT PORTABLE VIEW OF THE CHEST, 11/03/14, 0758 HOURS, SHOWS NORMAL HEART SIZE. VASCULARITY IS NORMAL. THERE IS MINIMAL ATELECTASIS IN THE LEFT LUNG BASE. RIGHT LUNG IS CLEAR. ELECTRONICALLY SIGNED BY: DAPHNE ODOM M.D. 11/03/2014 04:26 P DAPHNE ODOM M.D. A #[id number] A/MARGIE CC: Edwardo PEDRAZA M.D. PANKAJ KAUL, M.D. THOMAS VINH LUONG, M.D. us Generic Conversion Md BERUMEN GENERAL IMAGING Final R esult documented in this encounter Visit Diagnoses Not on filedocumented in this encounter Care Teams Computer Information Systems Instructor Relationship Specialty Start Date End Date Valeria Reynolds MD PCP - General 11/02/14 01/31/15 documented as of this encounter
--- OUTSIDE RECORDS SUMMARY | 2024-09-21 01:23 | XMS_ITS | Encounter Summary ---
Author Organization [facility] Address [address] [address] [place] [address] Care Team Providers Care Public Information Specialist Name Role Phone Unavailable Primary Care Provider Unavailabl e Encounter Details Date Type Department Care Team (Latest Contact Info) Description 02/05/2015 Abstract [facility] Social History Tobacco Use Types [...]
--- OUTSIDE RECORDS SUMMARY | 2024-09-21 01:23 | XMS_ITS | Encounter Summary ---
Author Organization [facility] Address [address] [place] [address] [place] [address] Care Team Providers Care Field Talent Qualification Specialist Name Role Phone Aleksandr Blount MD Primary Care Provider Antonio elena Encounter Details Date Type Department Care Team (Latest Contact Info) Description 01/30/2015 Abstract [facility] Social History Tobacco Use Types Packs/Day Years Used Date Smoking Tobacco: Never Assessed Comments Unknown Sex and Gender Information Value Date Recorded Sex Assigned at Not on file Legal Sex Female 10:25 PM CDT Gender Identity Not on file Sexual Orientation Not on file documented as of this encounter Progress Notes * Generic Conversion MD Mamta - 01/30/2015 4:28 PM CDT Message Recorded as Task Date: 01/28/2015 04:40 PM, Created By: Sosa Ellis Task Name: Follow Up Assigned To: Virginia Tolentino Regarding Patient: Emelina Santoyo, Status: In Progress Comment: Sosa Ellis - 28 Jan 2015 4:40 PM TASK CREATED Need to restart the fenofibrate 154 mg po daily, also needs to take the fish oil 1000units two times per day. Simvastatin needs to reduce to 20 mg po daily and amadeo the lipids in 3 months. thanks sc.Call [facility] and give this order to karolyn thanks I have recorded the orders. in the chart thanks Virginia Gill - 30 Jan 2015 4:27 PM TASK EDITED [facility] is aware of these orders. Signatures Electronically signed by : Virginia Tolentino, ; Jan 30 2015 4:28PM GRINDER AND HONER OPERATOR AUTOMATIC (Author) documented in this encounter Plan of Treatment Not on file documented as of this encounter Visit Diagnoses Not on filedocumented in this encounter Care Teams Field Talent Qualification Specialist Relationship Specialty Start Date End Date Aleksandr Blount MD PCP - General 11/02/14 01/31/15 documented as of this encounter
--- OUTSIDE RECORDS SUMMARY | 2024-09-21 01:23 | XMS_ITS | Encounter Summary ---
Author Organization [facility] Address [address] [place] [address] [place] [address] Care Team Providers Care Lime Mixer Tender Name Role Phone Aleksandr Reynolds MD Primary Care Provider Antonio elena Encounter Details Date Type Department Care Team (Latest Contact Info) Description 11/03/2014 Abstract [facility] , Adam Keen MD Social History Tobacco Use Types Packs/Day Years Used Date Smoking Tobacco: Never Assessed Comments Unknown Sex and Gender Information Value Date Recorded Sex Assigned at Not on file Legal Sex Female 10:25 PM CDT Gender Identity Not on file Sexual Orientation Not on file documented as of this encounter Procedure Notes * Aleksandr Reynolds MD - 11/03/2014 5:51 PM CST [place] [address] Patient: MARY SANTOYO Med Rec#: [id number] Birthdate: 1940 Admit/Svce Date: 11/02/2014 Disch Date: 11/08/2014 Attending Md: MIESHA MOREL MD CHART DOCUMENT PREOPERATIVE DIAGNOSIS: POSTOPERATIVE DIAGNOSIS: SURGERY PERFORMED: Esophagogastroduodenoscopy with endoscopic ultrasound. DATE: 11/03/2014 SURGEON: THOMAS CHAUDHRY M.D. SPARK TESTER: DESCRIPTION OF PROCEDURE: The upper endoscope was passed into the 2nd portion of the duodenum. The entire duodenum was normal. The pylorus, antrum, angulus, fundus, body, and cardia were normal. The esophagus was normal. Ultrasound scope was advanced into the duodenal bulb. The common bile duct was visualized from the bifurcation down to the ampulla. There was no evidence of a common duct stone. Cholelithiasis was noted. The pancreas was normal. The vasculature was normal. The bile duct was not dilated. IMPRESSION: No evidence of common duct stone. Patient has acute cholecystitis with jaundice. Has a surgical consult pending. Electronically Signed By: THOMAS CHAUDHRY M.D. 12/01/2014 05:00 P THOMAS CHAUDHRY M.D. P #[id number] P/ma cc: Edwardo PEDRAZA M.D. SYED ASIF HUSSAIN, MD PANKAJ KAUL, M.D. documented in this encounter Consult Notes * Aleksandr Reynolds MD - 11/03/2014 5:54 PM CST [place] [address] Patient: MARY SANTOYO [facility] Rec#: [id number] Birthdate: 1940 Admit/Svce Date: 11/02/2014 Disch Date: 11/08/2014 Attending Md: MIESHA MOREL MD CHART DOCUMENT PRIMARY CARE PROVIDER: ALEKSANDR REYNOLDS ATTENDING PROVIDER: Christ Rivera MD CONSULTING PROVIDER: THOMAS CHAUDHRY M.D. HISTORY OF PRESENT ILLNESS: This patient is transferred to the hospital because of abdominal pain and jaundice. Patient has no previous GI history in the chart. Patient has a history of MS dementia. Initially had abdominal pain, mental status changes. Gallbladder showed cholecystitis CT showed cholelithiasis and cholecystitis. Patient was jaundice. I was asked to see her preoperatively for endoscopic ultrasound and possible ERCP with plans for laparoscopic cholecystectomy to follow. PHYSICAL EXAMINATION: At time of consultation, she is in no acute distress. Vital signs are normal. Chest clear. Heart rate regular. Abdomen is soft. There is some mild tenderness in the right upper quadrant. LABORATORY: White count was 4.1, hemoglobin is 12.7. The total bilirubin 4.5, AST 624, ALT 607, alkaline phosphatase is 181. Endoscopic ultrasound was done on 11/03, surprisingly this revealed a normal common bile duct with no stones. The pancreas was normal. The pancreatic duct was normal. IMPRESSION: Cholecystitis with cholangitis. No evidence of common duct stone, though she may have passed one. Will always be available for a postoperative ERCP if necessary, but I do not see an indication for ERCP at this time. Thank you for this referral. Electronically Signed By: THOMAS CHAUDHRY M.D. 12/01/2014 05:00 P THOMAS CHAUDHRY M.D. P #[id number] P/ma cc: Edwardo PEDRAZA M.D. SYED ASIF HUSSAIN, MD PANKAJ KAUL, M.D. * Aleksandr Reynolds MD - 11/03/2014 3:10 PM CST [place] [address] Patient: MARY SANTOYO [facility] Rec#: [id number] Birthdate: 1940 Admit/Svce Date: 11/02/2014 Disch Date: Attending Md: CHRIST RIVERA MD CHART DOCUMENT PRIMARY CARE PROVIDER: ALEKSANDR REYNOLDS ATTENDING PROVIDER: Christ Rivera MD CONSULTING PROVIDER: THOMAS CHAUDHRY M.D. REASON FOR CONSULTATION: I am asked to see this patient in perioperative risk assessment prior to a planned endoscopic retrograde cholangiopancreatography. HISTORY OF PRESENT ILLNESS: She has lived in a detention for a number of years and has a dementing illness and her history is entirely unreliable. I have obtained history from the chart as well as her son who is at the bedside. She has no known cardiac disease. She has not had a myocardial infarction. She has no history of congestive heart failure. She does have hypertension and is a former smoker, and has a history of diabetes mellitus undiagnosed in recent past few years. Apparently, she had significant nausea at her detention and was sent to [facility]. She was found to have significantly elevated total bilirubin, conjugated bilirubin, and liver enzymes. She was sent to [facility]. She has been NPO and receiving IV fluid. Her heart rate is in the low 90s and is a sinus mechanism. Her systolic blood pressure is 150/76. She had a urinary catheter placed around 11 o'clock this morning and has not about 400 mL of urine output since then. PAST MEDICAL HISTORY: 1. Nonambulatory for about 10 years due to multiple sclerosis. 2. Hypertension. 3. Diabetes mellitus. 4. Dementia. SOCIAL HISTORY: She has 2 children. She has a daughter that lives in the [facility]. She has a son who is with her today. She is a former smoker. FAMILY HISTORY: Unobtainable due the patient's dementia. REVIEW OF SYSTEMS: Unreliable due to the patient's dementia. PHYSICAL EXAMINATION: Heart rate is 92 per minute. Blood pressure is 150/76. Cardiac rhythm is a sinus mechanism. Oxygen saturation is 94% on room air. She is awake, alert, and interactive. She has poor dentition. Carotid pulses are 1+. I cannot see the jugular venous pressure due to significant soft tissue above the neck. I listened to her lungs posteriorly and they are clear. Cardiac exam: There are no heaves or thrills to palpation. S1, S2 are normal. There are no murmurs or gallops. Abdomen: Soft, nontender, nondistended. There is no apparent organomegaly. She might have mild right upper quadrant tenderness. Bowel sounds are present. There are no bruits. There is no lower extremity edema. She has a significant amount of dorsiflexion of both of her feet. She has palpable dorsalis pedis pulses bilaterally. There is no clubbing or cyanosis. IMAGING AND LABORATORY STUDIES: Twelve-lead EKG done November 03 around 12:30 shows a sinus rhythm at 95 beats per minute. There is some J-point depression in lead V3 through V6, but by 80 milliseconds after the start of the ST-segment these are up. Her white count is 4.1 thousand with a hemoglobin 12.7, hematocrit of 37.8, platelet count 203,000. She has an elevated neutrophil count. Her BUN is 10 with a creatinine of 0.64. She is elevated glucoses. Total bilirubin is elevated at 4.5 with a direct bilirubin of 3.925. AST is 624 with an ALT of 604. Portable chest x-ray from November 03, 2014, is reviewed. This is portable upright film. Right costophrenic angle is sharp. Left costophrenic angle is blunted. There is some scoliosis of the spine. There are no acute infiltrates. I do not appreciate any pneumothorax. ASSESSMENT AND PLAN: 1. Perioperative risk assessment prior to endoscopic retrograde cholangiopancreatography. 2. Hypertension. 3. Diabetes mellitus. 4. Dementia. 5. Multiple sclerosis. I would continue her intravenous fluid and she does not appear to be unstable. She needs the endoscopic retrograde cholangiopancreatography for the previously cited reasons in her chart. Many thanks for the opportunity to participate in this pleasant woman's care. Please do not hesitate to contact me with any questions or concerns. Electronically Signed By: LOUIS PANTOJA MD 11/03/2014 05:27 P LOUIS PANTOJA MD P #[id number] P/ma cc: Edwardo PEDRAZA M.D. SYED ASIF HUSSAIN, MD PANKAJ KAUL, M.D. CRAIG S. VINCH, MD documented in this encounter Plan of Treatment Not on file documented as of this encounter Visit Diagnoses Not on filedocumented in this encounter Care Teams Lime Mixer Tender Relationship Specialty Start Date End Date Aleksandr Reynolds MD PCP - General 11/02/14 01/31/15 documented as of this encounter
--- OUTSIDE RECORDS SUMMARY | 2024-09-21 01:23 | XMS_ITS | Encounter Summary ---
Author Organization [facility] Address [address] [place] [address] [place] [address] Care Team Providers Care Satellite Tv Technician Installer Name Role Phone Aleksandr Blount MD Primary Care Provider U kassy Encounter Details Date Type Department Care Team (Latest Contact Info) Description 11/04/2014 Abstract [facility] Aleksandr Blount MD Social History [...] filedocumented in this encounter Care Teams Satellite Tv Technician Installer Relationship Specialty Start Date End Date Aleksandr Blount MD PCP - General 11/02/14 01/31/15 documented as of this encounter
--- OUTSIDE RECORDS SUMMARY | 2024-09-21 01:23 | XMS_ITS | Encounter Summary ---
Author Organization [facility] Address [address] [place] [address] [place] [address] Care Team Providers Care Regional Economic Liaison Name Role Phone Valeria Reynolds MD Primary Care Provider Antonio elnea Encounter Details Date Type Department Care Team (Latest Contact Info) Description 11/05/2014 Abstract [facility] , dAam Keen MD Social History Tobacco Use Types [...] Procedure Name Priority Date/Time Associated Diagnosis Comments SURG XR CHOLANGIOGRAM Routine 11/05/2014 9:02 AM CASINO CASHIER MANAGER documented in this encounter Results * SURG XR CHOLANGIOGRAM (11/05/2014 9:02 AM CASINO CASHIER MANAGER) Anatomical Region Laterality Modality Abdomen IMAGES ONLY 11/05/2014 9:02 AM CASINO CASHIER MANAGER 11/05/2014 9:02 AM CASINO CASHIER MANAGER Narrative 11/08/2014 8:27 PM CASINO CASHIER MANAGER EMELINA SANTOYO ORDERING MD: YOVANNY GRIFFITH MD ?? ACCT: [id number] ?? ADMIT/SERVICE DATE: 11/02/14 DISCHARGE DATE: 11/08/14 ?? : 1940 PT TYPE: DIS IN ?? SEX: F ORD SITE: [facility] ? STUDY DATE REPORT # PROCEDURE CODE PROCEDURE ?? 11/05/14 [id number] CHOLANGOR XR CHOLANGIOGRAM OR ? EXTORDERID ? [id number] ? ACCESSION NUMBER ?? [id number] ?CHART DOCUMENT ? IMPRESSION: ? MULTIPLE FILLING DEFECTS DESCRIBED. ??FINDINGS WERE CALLED TO DR. GRIFFITH ?? IN THE OPERATING SUITE AT TIME OF INTERPRETATION. ? HISTORY: ??CHOLECYSTITIS, SEPSIS, RIGHT UPPER QUADRANT PAIN. ? INTRAOPERATIVE CHOLANGIOGRAM ? TECHNIQUE: ??22.3 SECONDS OF FLUOROSCOPIC TIME WAS UTILIZED FOR THE STUDY. ?? TWO CINEMATIC IMAGES ARE SUBMITTED FOR INTERPRETATION. ? FINDINGS: ??ON THE 2 SUBMITTED CINEMATIC IMAGES THERE CAN BE SEEN ?? CANNULATION OF THE REMAINING CYSTIC DUCT WITH FREE FLOW OF CONTACT THROUGH ?? THE CYSTIC DUCT AND INTO THE COMMON BILE DUCT. ??THERE ARE MULTIPLE AREAS OF ? FILLING DEFECT IN THE DISTAL COMMON BILE DUCT WITH NO CONTRAST ADVANCING TO ? THE DUODENUM ON THE FIRST SET OF IMAGES. ??ON THE SECOND SEQUENCE SIMILAR ?? FINDINGS ARE SEEN AT THE DISTAL COMMON BILE DUCT. ??IN ADDITION CONTRAST ?? FOLLOWS CRANIALLY TOWARD THE COMMON HEPATIC DUCT THERE CAN BE SEEN A ?? FILLING DEFECT IN THE LEFT HEPATIC DUCT WHICH PREVENTS COMPLETE CONTRAST ?? OPACIFICATION. ??THE RIGHT HEPATIC DUCT AND INTRAHEPATIC BILIARY ?? ARCHITECTURE APPEARS UNREMARKABLE OTHERWISE. ? ELECTRONICALLY SIGNED BY: ?? DAPHNE MONTES DE OCA M.D. 11/08/2014 08:25 P ?? DAPHNE MONTES DE OCA M.D. ? D: ??11/05/2014 09:02 A ??#[id number] ?? T: ??11/05/2014 09:45 A/MA ? CC: ?VALERIA REYNOLDS M.D. ?THOMAS CHAUDHRY M.D. ?GLENN JOREG RIVERA MD ?SANAM LEROY M.D. ?ELMIRA CORDOVA M.D. ? Procedure Note Adam Berumen MD - 07/22/2018 EMELINA SANTOYO MD: YOVANNY GRIFFITH MD ACCT: [id number] ADMIT/SERVICE DATE: 11/02/14 DISCHARGE DATE: 11/08/14 : 1940 PT TYPE: DIS IN SEX: F ORD SITE: [facility] STUDY DATE REPORT # PROCEDURE CODE PROCEDURE 11/05/14 [id number] CHOLANGOR XR CHOLANGIOGRAM OR EXTORDERID [id number] ACCESSION NUMBER [id number] CHART DOCUMENT IMPRESSION: MULTIPLE FILLING DEFECTS DESCRIBED. FINDINGS WERE CALLED TO DR. GRIFFITH IN THE OPERATING SUITE AT TIME OF INTERPRETATION. HISTORY: CHOLECYSTITIS, SEPSIS, RIGHT UPPER QUADRANT PAIN. INTRAOPERATIVE CHOLANGIOGRAM TECHNIQUE: 22.3 SECONDS OF FLUOROSCOPIC TIME WAS UTILIZED FOR THE STUDY. TWO CINEMATIC IMAGES ARE SUBMITTED FOR INTERPRETATION. FINDINGS: ON THE 2 SUBMITTED CINEMATIC IMAGES THERE CAN BE SEEN CANNULATION OF THE REMAINING CYSTIC DUCT WITH FREE FLOW OF CONTACTTHROUGH THE CYSTIC DUCT AND INTO THE COMMON BILE DUCT. THERE ARE MULTIPLE AREASOF FILLING DEFECT IN THE DISTAL COMMON BILE DUCT WITH NO CONTRAST ADVANCINGTO THE DUODENUM ON THE FIRST SET OF IMAGES. ON THE SECOND SEQUENCE SIMILAR FINDINGS ARE SEEN AT THE DISTAL COMMON BILE DUCT. IN ADDITION [place] FOLLOWS CRANIALLY TOWARD THE COMMON HEPATIC DUCT THERE CAN BE SEEN A FILLING DEFECT IN THE LEFT HEPATIC DUCT WHICH PREVENTS COMPLETE CONTRAST OPACIFICATION. THE RIGHT HEPATIC DUCT AND INTRAHEPATIC BILIARY ARCHITECTURE APPEARS UNREMARKABLE OTHERWISE. ELECTRONICALLY SIGNED BY: DAPHNE MONTES DE OCA M.D. 11/08/2014 08:25 P DAPHNE MONTES DE OCA M.D. A #[id number] A/MA CC: Edwardo PEDRAZA M.D. SYED ASIF HUSSAIN, MD PANKAJ KAUL, M.D. THOMAS VINH LUONG, M.D. us Generic Conversion Md BERUMEN IMAGES ONLY Final R esult documented in this encounter Visit Diagnoses Not on filedocumented in this encounter Care Teams Regional Economic Liaison Relationship Specialty Start Date End Date Valeria Reynolds MD PCP - General 11/02/14 01/31/15 documented as of this encounter
--- OUTSIDE RECORDS SUMMARY | 2024-09-21 01:23 | XMS_ITS | Encounter Summary ---
Author Organization [facility] Address [address] [place] [address] [place] [address] Care Team Providers Care Arborist Climber Name Role Phone Aleksandr Blount MD Primary Care Provider U kassy Encounter Details Date Type Department Care Team (Latest Contact Info) Description 11/09/2014 Abstract [facility] Social History Tobacco Use [...] on filedocumented in this encounter Care Teams Arborist Climber Relationship Specialty Start Date End Date Aleksandr Blount MD PCP - General 11/02/14 01/31/15 documented as of this encounter
--- OUTSIDE RECORDS SUMMARY | 2024-09-21 01:23 | XMS_ITS | Encounter Summary ---
Author Organization [facility] Address [address] [place] [address] [place] [address] Care Team Providers Care Director Physical Name Role Phone Aleksandr Blount MD Primary Care Provider U kassy Encounter Details Date Type Department Care Team (Latest Contact Info) Description 11/11/2014 Abstract [facility] Medical [...] filedocumented in this encounter Care Teams Director Physical Relationship Specialty Start Date End Date Aleksandr Blount MD PCP - General 11/02/14 01/31/15 documented as of this encounter
--- OUTSIDE RECORDS SUMMARY | 2024-09-21 01:23 | XMS_ITS | Encounter Summary ---
Author Organization [facility] Address [address] [place] [address] [place] [address] Care Team Providers Care Black Ash Worker Name Role Phone Aleksandr Blount MD Primary Care Provider U kassy Encounter Details Date Type Department Care Team (Latest Contact Info) Description 01/23/2015 Abstract [facility] Social History Tobacco Use [...] on filedocumented in this encounter Care Teams Black Ash Worker Relationship Specialty Start Date End Date Aleksandr Blount MD PCP - General 11/02/14 01/31/15 documented as of this encounter
--- OUTSIDE RECORDS SUMMARY | 2024-09-21 01:23 | XMS_ITS | Encounter Summary ---
Author Organization [facility] Address [address] [place] [address] [place] [address] Care Team Providers Care General Maintenance Technician Name Role Phone Unavailable Primary Care Provider Unavailabl e Encounter Details Date Type Department Care Team (Late st Contact Info) Description 02/19/2015 Abstract [facility] Family & Internal Medicine - [place] [address] [place] [address] Aleksandr Blount MD Social History Tobacco Use Types Packs/Day Years Used Date Smoking Tobacco: Never Assessed Comments Unknown Sex and Gender Information Value Date Recorded Sex Assigned at Not on file Legal Sex Female 10:25 PM CDT Gender Identity Not on file Sexual Orientation Not on file documented as of this encounter Progress Notes * Aleksandr Blount MD - 02/19/2015 12:15 PM CDT Reason For Visit [facility] Visit Chief Complaint Routine fdc visit History of Present Illness Mrs. Santoyo is a pleasant lady. She has some dementia, diabetes, generalized multiple sclerosis, hyperlipidemia and hypertension. She seems to be comfortable. She did not any major complaints. She has been here not too long. Actually, Sosa has been seeing her since July 2013 and she was a patient in conjunction with Dr. Bermudez that I picked up. She seems to be in no distress. She is pleasant and calm and not been reported any behavioral issues. Review of Systems See HPI for pertinent positives. Constitutional: no fever, no chills and no headache. ENT: no earache, no sore throat, no hearing loss and no nasal discharge. Cardiovascular: no chest pain, no intermittent leg claudication, no palpitations and no lower extremity edema. Respiratory: no shortness of breath, no cough, no wheezing, no shortness of breath during exertion and no PND. Gastrointestinal: no abdominal pain, no constipation, no heartburn, no vomiting, no diarrhea and nomelena. Genitourinary: no dysuria and no incontinence. Integumentary: no skin lesions and no skin rash. Musculoskeletal: no arthralgias, no joint swelling, no limb pain, no joint pain and no joint stiffness. Neurological: confusion, but no dizziness, no limb weakness, no convulsions and no difficulty walking. Psychiatric: no anxiety, no ideation and no depression. Active Problems 1. Bowel incontinence (787.60) (R15.9) [...] Capsule; Take 1 capsule twice daily; Therapy: 25Lyq8010 to (Evaluate:31Ezb2404); Last Rx:02Jan2015 Ordered 7. MetFORMIN HCl - 500 MG Oral Tablet; TAKE 1 TABLET TWICE DAILY; Therapy: 09Jul2013 to (Last Rx:[id number]) Ordered 8. Namenda XR 28 MG Oral Capsule Extended Release 24 Hour; ONE DAILY; Therapy: 63Tgn0631 to (Last Rx:[id number]) Ordered 9. NovoFine Autocover 30G X 8 MM Miscellaneous; Therapy: 04Mar2013 to Recorded 10. Simvastatin 20 MG Oral Tablet; TAKE 1 TABLET DAILY AT BEDTIME; Therapy: 28Jan2015 to (Evaluate:12Ske6354); Last Rx:30Jan2015 Ordered 11. Victoza 18 MG/3ML SOLN; INJECT 0.6MG SUBCUTANEOUSLY DAILY; Therapy: 23Mar2013 to (Last Rx:[id number]) Ordered Allergies 1. Flagyl CAPS Physical Exam [...] Normal. Assessment 1. Hyperlipidemia (272.4) (E78.5) 2. Generalized multiple sclerosis (340) (G35) 3. Diabetes mellitus (250.00) (E11.9) 4. Hypertension (401.9) (I10) 5. Insomnia (780.52) (G47.00) Discussion/Summary For now, she seems to be very comfortable and we will continue with her usual medications. She seems to be happy with where she is. She denies any pain at this current time. She will continue with her cholesterol medicines, memory medicines, and medicine for hypertension. She also takes Lyrica, Namenda, metformin and simvastatin and also she is on Victoza for her diabetes. Her last laboratory test done not too long ago, a month ago, showed triglycerides 383, cholesterol 134, HDL 39 and LDL is unable to be calculated due to the high triglycerides. White count was fine. No anemia. Platelets 135. The last glycohemoglobin was 6.8 in August 2014 which was fine. So, everything seems to be doingfine for her. So, continue with the current medications. Signatures Electronically signed by : Aleksandr Blount M.D.; Mar 01 2015 9:14AM OFFICE SUPPORT ASSISTANT (Author) documented in this encounter Plan of Treatment Not on file documented as of this encounter Visit Diagnoses Not on filedocumented in this encounter
--- OUTSIDE RECORDS SUMMARY | 2024-09-21 01:23 | XMS_ITS | Encounter Summary ---
Author Organization [facility] Address [address] [place] [address] [place] [address] Care Team Providers Care Can Tester Name Role Phone Aleksandr Blount MD Primary Care Provider U kassy Encounter Details Date Type Department Care Team (Latest Contact Info) Description 11/08/2014 Abstract [facility] Sosa Ellis, SHOELACE TIPPING MACHINE OPERATOR Social History Tobacco Use Types Packs/Day Years [...] on filedocumented in this encounter Care Teams Can Tester Relationship Specialty Start Date End Date Aleksandr Blount MD PCP - General 11/02/14 01/31/15 documented as of this encounter
--- OUTSIDE RECORDS SUMMARY | 2024-09-21 01:23 | XMS_ITS | Encounter Summary ---
Author Organization [facility] Address [facility] [facility] [place] [address] [place] [address] Care Team Providers Care Supervisor Est[employer] Emulsifiers Name Role Phone Aleksandr Blount MD Primary Care Provider Antonio elena Encounter Details Date Type Department Care Team (Late st Contact Info) Description 01/24/2015 Abstract [facility] Family & Internal Medicine - [place] [address] [place] [address] Sosa Ellis NP Social History [...] Sign Reading Time Taken Comments Blood Pressure 140/78 01/24/2015 1:54 PM CDT Pulse 64 01/24/2015 1:54 PM CDT Temperature - - Respiratory Rate - - Oxygen Saturation - - Inhaled Oxygen Concentration - - Weight 74.2 kg (163 lb 8 oz) 01/24/2015 1:54 PM CDT Height 167.6 cm (5' 6 ) 01/24/2015 1:54 PM CDT Body Mass Index 26.39 01/24/2015 1:54 PM CDT documented in this encounter Progress Notes * Sosa Ellis NP - 01/24/2015 1:15 PM CDT Reason For Visit [facility] Visit Chief Complaint Chief Complaint Free Text: Routine [facility] visit. [facility] History of Present Illness Poorly Healing Wound (Follow-Up): The patient presents for follow-up of a ulcer of buttocks and heels. The patient states the wound is healed. She has no significant interval events. Symptoms: The patient is currently asymptomatic. Medications: The patient is not adherent with her medication regimen. She denies medication side effects. Additional History: Pt has had ulcers and are healed over the last month. Pt has been turned and positioned and has had specialized mattress that has now been changed back to regular one at this time. Diabetes Type II (Follow-Up): The patient states she has been stable with her Type II Diabetes control since the last visit Pt has a hx of low A1c Has not had recent A1c and will need to have that done. Daily FBS accuck have been good. Comorbid Illnesses: hypertension, hyperlipidemia and obesity. She has no known diabetic complications. Symptoms: Stable numbness of the feet, stable foot ulcer, denies foot pain and denies vomiting. Home monitoring: The patient checks her blood sugars regularly. Glycemic control has been good. Medications: The patient [...] denies medication side effects. Review of Systems Complete-Female: See HPI for [...] Capsule; Take 1 capsule twice daily; Therapy: 07Vlx2911 to (Evaluate:[id number]); Last Rx:[id number] Ordered 6. MetFORMIN HCl - 500 MG Oral Tablet; TAKE 1 TABLET TWICE DAILY; Therapy: 09Jul2013 to (Last Rx:[id number]) Ordered 7. Mupirocin 2 % External Ointment; Therapy: 29Mar2014 to Recorded 8. Namenda XR 28 MG Oral Capsule Extended Release 24 Hour; ONE DAILY; Therapy: [id number] to (Last Rx:[id number]) Ordered 9. NovoFine Autocover 30G X 8 MM Miscellaneous; Therapy: 04Mar2013 to Recorded 10. Nystatin 025671 UNIT/GM External Cream; Therapy: 22Oct2014 to Recorded 11. Permethrin 5 % External Cream; Therapy: 22Jul2014 to Recorded 12. Simvastatin 40 MG Oral Tablet; TAKE 1 TABLET BY MOUTH AT BEDTIME; Therapy: [id number] to (Evaluate:15Aug2014) Recorded 13. Sodium Chloride 0.9 % Irrigation Solution; Therapy: 04Aug2013 to Recorded 14. Tobramycin Sulfate 0.3 % SOLN; Therapy: 29Jul2013 to Recorded 15. Victoza 18 MG/3ML SOLN; INJECT 0.6MG SUBCUTANEOUSLY DAILY; Therapy: 23Mar2013 to (Last Rx:[id number]) Ordered 16. Victoza 18 MG/3ML Subcutaneous Solution Pen-injector; Therapy: 22Dec2013 to Recorded Allergies 1. Flagyl CAPS Vitals Vital Signs [Data Includes: Current Encounter] Recorded: 24Jan2015 01:54PM Temperature 97.2 F Heart Rate 64 Respiration 18 Systolic 140 Diastolic 78 O2 Saturation 99 Height 5 ft 6 in Weight 163 lb 8 oz BMI Calculated 26.39 BSA Calculated 1.84 Physical Exam Constitutional General [...] Erythema and improved. Fungal rash over the perineum improved Continue with the order becausept may need in the future. Ulcers over the buttocks and the heels are improved. Neurologic Cranial nerves: Cranial nerves 2-12 intact. Psychiatric Orientation to person, place, and time: Abnormal. Patient is disoriented to place and time but not to person. Mood and affect: Normal. Assessment 1. 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 Fungal infection (117.9) (B49) 3. Generalized multiple sclerosis (340) (G35) 4. Hypertension (401.9) (I10) 5. Hyperlipidemia (272.4) (E78.5) 6. Mild vitamin D deficiency (268.9) (E55.9) 7. Decubitus ulcer, heel (707.07,707.20) (L89.609) 8. Decubitus ulcer of buttock, stage 2 (707.05,707.22) (L89.302) Plan Hyperlipidemia 1. Simvastatin 40 MG Oral Tablet Rx By: Sosa Ellis; Dispense: 90 Days ; #:90 Tablet; Refill: 0; For: Hyperlipidemia; MICHAEL = N; Record 2. Fish Oil 1000 MG Oral Capsule; one capsule two times per day Rx By: Sosa Ellis; Dispense: 0 Days ; #:180 Capsule; Refill: 0; For: Hyperlipidemia; MICHAEL = N; Record 3. Simvastatin 20 MG Oral Tablet; TAKE 1 TABLET DAILY AT BEDTIME Rx By: Sosa Ellis; Dispense: 90 Days ; #:90 Tablet; Refill: 0; For: Hyperlipidemia; MICHAEL = N; Faxed To: [facility] [place] [facility] 4. From Fenofibrate 145 MG Oral Tablet To Fenofibrate 145 MG Oral Tablet TAKE 1 TABLET DAILY WITH FOOD Rx By: Sosa Ellis; Dispense: 90 Days ; #:90 Tablet; Refill: 0; For: Hyperlipidemia; MICHAEL = N; Record Unlinked 5. Mupirocin 2 % External Ointment Dispense: 5 Days ; #:22 OINT; Refill: 0; MICHAEL = N; Record; Last Updated By: Sosa Ellis; 07/19/2014 1:26:24 PM 6. Nystatin 203223 UNIT/GM External Cream Dispense: 5 Days ; #:30 CREA; Refill: 0; MICHAEL = N; Record; Last Updated By: Sosa Ellis; 11/15/2014 3:20:42 PM 7. Permethrin 5 % External Cream Dispense: 14 Days ; #:60 CREA; Refill: 0; MICHAEL = N; Record; Last Updated By: Sosa Ellis; 11/15/2014 3:20:42 PM 8. Sodium Chloride 0.9 % Irrigation Solution Dispense: 5 Days ; #:255 SOLN; Refill: 0; MICHAEL = N; Record; Last Updated By: Sosa Ellis; 08/10/2013 4:15:15 PM 9. Tobramycin Sulfate 0.3 % SOLN Dispense: 12 Days ; #:5 SOLN; Refill: 0; MICHAEL = N; Record; Last Updated By: Sosa Ellis; 08/10/2013 4:15:15 PM 10. Victoza 18 MG/3ML Subcutaneous Solution Pen-injector Dispense: 11 Days ; #:6 SOPN; Refill: 0; MICHAEL = N; Record; Last Updated By: Sosa Ellis; 07/19/2014 1:26:22 PM Pt meds reviewed and labs reviewed. Stopped the fenofibrate last September and TGs are elevated over 300 Need to restart this and Fish oil Reduce the simvastatin to 20 mg because the Ldl is so low. Pt heeled well and last A1c was very good. No other changes except will amadeo the lipids in 3 months. Routine nH visits wll continue every 3 months. Signatures Electronically signed by : Sosa Ellis NP; Jan 28 2015 4:50PM ELECTRIC METER SETTER (Author) documented in this encounter Plan of Treatment Not on file documented as of this encounter Visit Diagnoses Not on filedocumented in this encounter Care Teams Supervisor [employer] Emuls[employer] Relationship Specialty Start Date End Date Aleksandr Blount MD PCP - General 11/02/14 01/31/15 documented as of this encounter
--- OUTSIDE RECORDS SUMMARY | 2024-09-21 01:24 | XMS_ITS | Encounter Summary ---
Author Organization [facility] Address [address] [facility] [place] [address] [place] [address] Care Team Providers Care Side Sawyer Name Role Phone Aleksandr Blount MD Primary Care Provider Antonio elena Encounter Details Date Type Department Care Team (Latest Contact Info) Description 07/04/2014 Abstract [facility] [place] [id number] [address] Social History Tobacco Use Types Packs/Day Years Used Date Smoking Tobacco: Never Assessed Comments Unknown Sex and Gender Information Value Date Recorded Sex Assigned at Not on file Legal Sex Female 10:25 PM CDT Gender Identity Not on file Sexual Orientation Not on file documented as of this encounter Progress Notes * Yoan Bermudez MD - 07/04/2014 8:35 PM CDT History of Present Illness HPI Free Text: [facility] Follow Up Visit No complaints. I eat too much. Sleeps well, no constipation or diarrhea. Feels well. No pain Review of Systems Complete-Female: Constitutional: no fatigue. Cardiovascular: no chest pain. Respiratory: no shortness of breath. Active Problems 1. Bruising (924.9) (T14.8) 2. Cellulitis (682.9) (L03.90) 3. Dementia (294.20) (F03.90) 4. Diabetes mellitus (250.00) (E11.9) 5. 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 Generalized multiple sclerosis (340) (G35) 7. Hyperlipidemia (272.4) (E78.5) 8. Hypertension (401.9) (I10) 9. Impaired weight bearing (V49.89) (Z91.89) 10. Ingrowing nail with infection (703.0) (L60.0) 11. Insomnia (780.52) (G47.00) 12. Mild vitamin D deficiency (268.9) (E55.9) 13. Need for prophylactic vaccination and inoculation against influenza (V04.81) (Z23) 14. Open wound of toe with complication (893.1) (S91.109A) ?? medial toe Great toe. Family History [...] Capsule; Take 1 capsule twice daily; Therapy: 42Ebi9468 to (Evaluate:18Oct2014) Recorded 6. MetFORMIN HCl - 500 MG Oral Tablet; TAKE 1 TABLET TWICE DAILY; Therapy: 09Jul2013 to (Last Rx:[id number]) Ordered 7. Namenda XR 28 MG Oral Capsule Extended Release 24 Hour; ONE DAILY; Therapy: 84Qbo7950 to (Last Rx:[id number]) Ordered 8. NovoFine Autocover 30G X 8 MM Miscellaneous; Therapy: 04Mar2013 to Recorded 9. Simvastatin 40 MG Oral Tablet; TAKE 1 TABLET BY MOUTH AT BEDTIME; Therapy: 80Tlm1721 to (Evaluate:15Aug2014) Recorded 10. Sodium Chloride 0.9 % Irrigation Solution; Therapy: 04Aug2013 to Recorded 11. Tobramycin Sulfate 0.3 % SOLN; Therapy: 29Jul2013 to Recorded 12. Victoza 18 MG/3ML SOLN; INJECT 0.6MG SUBCUTANEOUSLY DAILY; Therapy: 23Mar2013 to (Last Rx:[id number]) Ordered Allergies 1. Flagyl CAPS Physical Exam Constitutional General appearance: Abnormal. Overweight, rested and appearance reflects stated age. Pulmonary Auscultation of lungs: Clear to auscultation. Cardiovascular Auscultation of heart: Normal rate and rhythm, normal S1 and S2, without murmurs. Examination of extremities for edema and/or varicosities: Normal. Assessment 1. Dementia (294.20) (F03.90) 2. 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 Hypertension (401.9) (I10) Plan continue current meds Signatures Electronically signed by : Yoan Bermudez M.D.; Jul 19 2014 6:06AM DUPLICATING MACHINE SERVICER documented in this encounter Plan of Treatment Not on file documented as of this encounter Visit Diagnoses Not on filedocumented in this encounter Care Teams Side Sawyer Relationship Specialty Start Date End Date Aleksandr Blount MD PCP - General 11/02/14 01/31/15 documented as of this encounter
--- OUTSIDE RECORDS SUMMARY | 2024-09-21 01:24 | XMS_ITS | Encounter Summary ---
Author Organization [facility] Address [address] [place] [address] [place] [address] Care Team Providers Care Insight Director Name Role Phone Aleksandr Blount MD Primary Care Provider U Frieda Salcedo MD Primary Care Provider UnavailKeiry Riddle [employer]UST VAULT CUSTODIAN Unavailable [phone] Encounter Details Date Type Department Care Team (Late st Contact Info) Description 09/10/2014 Abstract [facility] [address] [place] [address] [place] [address] [place], [place] [id number] Social History Tobacco Use Types Packs/Day Years [...] of this encounter Visit Diagnoses Diagnosis Other malaise and fatigue documented in this encounter Care Teams Insight Director Relationship Specialty Start Date End Date Aleksandr Blount MD PCP - General 11/02/14 01/31/15 Frieda Wasserman MD PCP - General INTERNAL MEDICINE 08/31/18 02/23/20 Keiry Rucker NP Consulting Physician [facility] Facility 10/04/18 04/13/19 documented as of this encounter
--- OUTSIDE RECORDS SUMMARY | 2024-09-21 01:24 | XMS_ITS | Encounter Summary ---
Author Organization [facility] Address [facility] [place] [address] [place] [address] Care Team Providers Care Software Integration Developer Name Role Phone Aleksandr Blount MD Primary Care Provider Antonio elena Encounter Details Date Type Department Care Team (Late st Contact Info) Description 11/09/2013 Abstract [facility] Medical [facility] Family & Internal Medicine - [place] [address] [place] [address] Sosa Ellis NP Social History [...] Reading Time Taken Comments Blood Pressure 104/60 11/09/2013 2:56 PM BRANCH OFFICE ADMINISTRATOR Pulse 80 11/09/2013 2:56 PM BRANCH OFFICE ADMINISTRATOR Temperature - - Respiratory Rate - - Oxygen Saturation - - Inhaled Oxygen Concentration - - Weight 76.3 kg (168 lb 2.1 oz) 11/09/2013 2:56 P M BRANCH OFFICE ADMINISTRATOR Height 167.6 cm (5' 6 ) 11/09/2013 2:56 PM BRANCH OFFICE ADMINISTRATOR Body Mass Index 27.14 11/09/2013 2:56 PM BRANCH OFFICE ADMINISTRATOR documented in this encounter Progress Notes * Sosa Ellis NP - 11/09/2013 2:30 PM CST Reason For Visit [facility] Visit History of Present Illness HPI Free Text: Pt is sleeping at night and frequently during the day. Pt has to be assisted with eating and drinking by the staff. Pt appetite is good. Pt is incontinent of bowel and bladder. Pt is disoriented to person place and time. Pt has very little verbalization. Pt is gabriel lift transfer by staff. Pt has not fallen. Pt skin is intact at this time. Has had issues in the past with ulcers on feet and heels.1 Dementia (Follow-Up): Her dementia has been stable1 since the last visit1 . She has no comorbid illnesses1 She has no significant interval events1 Symptoms: Worsened memory impairment1 , denies agitation1 , denies aggression1 , denies depression1, denies sleep disturbances1 , denies wandering1 , denies delusions1 , denies difficulty finding desired words1 and stable pt has inability to perform ADLs1 . Diabetes Type II (Follow-Up): The patient states she has been stable1 with her Type II Diabetes control since the last visit1 . Comorbid Illnesses:1 hypertension1 , hyperlipidemia1 and obesity1 . Shehas no significant interval events1 Symptoms: Stable numbness of the feet1 , denies a foot ulcer1 , denies foot pain1 , denies vomiting1 and denies visual impairment1 . Home monitorin The patient checks her blood sugars regularly1 . Glycemic control has been good1 . Medications:1 The patient is adherent with her medication regimen1 . She denies medication side effects1 . The patient is doing well with her diabetes goals1 Hyperlipidemia (Follow-Up): The patient states her hyperlipidemia has been under good control1 since the last visit1 . Comorbid Illnesses:1 diabetes mellitus1 and hypertension1 . She has no significant interval events1 Symptoms: The patient is currently asymptomatic1 Worsened muscle pain1 and worsened muscle weakness1 . Medications:1 The patient is adherent with her medication regimen1 . She denies medication side effects1 . The patient is doing well with her hyperlipidemia goals1 1 Amended By: Sosa Ellsi; Nov 15 2013 7:57 PM BRANCH OFFICE ADMINISTRATOR Review of Systems Complete-Female: Constitutional:1 as noted in HPI1 . Eyes:1 negative1 . ENT:1 negative1 . Cardiovascular:1 negative1 and as noted in HPI1 . Respiratory:1 negative1 . Genitourinary:1 negative1 . Musculoskeletal:1 as noted in HPI1 . Integumentary1 as noted in HPI1 . as noted in HPI1 Hematologic and Lymphatic:1 negative1 . 1 Amended By: Sosa Ellis; Nov 15 2013 7:57 PM BRANCH OFFICE ADMINISTRATOR Active Problems 1. Cellulitis (682.9) (L03.90) 2. Dementia (294.20) (F03.90) 3. Diabetes mellitus (250.00) (E11.9) 4. Generalized multiple sclerosis (340) (G35) 5. Hyperlipidemia (272.4) (E78.5) 6. Hypertension (401.9) (I10) 7. Insomnia (780.52) (G47.00) 8. Open wound of toe with complication (893.1) (S91.109A) ?? medial toe Great toe. Social History ?? Marital History - (V61.03) ?? Unknown if ever smoked Current Meds 1. Aspirin 81 MG Oral Tablet; TAKE 1 TABLET DAILY; Therapy: 10Aug2013 to (Evaluate:05Aug2014) Recorded 2. Donepezil HCl - 10 MG Oral Tablet; TAKE 1 TABLET BY MOUTH AT BEDTIME; Therapy: 24Mar2013 to (Evaluate:22Jun2013) Recorded 3. Fenofibrate Micronized 134 MG Oral Capsule; TAKE 1 CAPSULE DAILY; Therapy: [id number] to (Evaluate:26Aug2013) Recorded 4. Lisinopril 5 MG Oral Tablet; TAKE 1 TABLET DAILY; Therapy: 11Mar2013 to (Evaluate:09Jun2013) Recorded 5. Lyrica 150 MG Oral Capsule; Take 1 capsule twice daily; Therapy: 62Ljd0016 to (Evaluate:06Oct2013); Last Rx:[id number] Ordered 6. MetFORMIN HCl - 500 MG Oral Tablet; TAKE 1 TABLET TWICE DAILY; Therapy: 09Jul2013 to Recorded 7. Namenda XR 28 MG Oral Capsule Extended Release 24 Hour; ONE DAILY; Therapy: 30Vnp6698 to (Evaluate:[id number]) Recorded 8. NovoFine Autocover 30G X 8 MM Miscellaneous; Therapy: 04Mar2013 to Recorded 9. Simvastatin 20 MG Oral Tablet; TAKE ONE TABLET BY MOUTH AT BEDTIME; Therapy: 14Uni4261 to (Evaluate:04Xok4549) Recorded 10. Simvastatin 40 MG Oral Tablet; TAKE 1 TABLET BY MOUTH AT BEDTIME; Therapy: 47Gbj1502 to (Evaluate:09Gsf6953) Recorded 11. Sodium Chloride 0.9 % Irrigation Solution; Therapy: 04Aug2013 to Recorded 12. Tobramycin Sulfate 0.3 % Ophthalmic Solution; Therapy: 29Jul2013 to Recorded 13. Victoza 18 MG/3ML Subcutaneous Solution; INJECT 0.6MG SUBCUTANEOUSLY DAILY; Therapy: 23Mar2013 to Recorded Allergies 1. Flagyl CAPS Vitals Vital Signs [Data Includes: Current Encounter] Recorded by : Mary Lara at [id number] 02:56PM Temperature 97.4 F Heart Rate 80 Respiration 16 Systolic 104 Diastolic 60 O2 Saturation 98, RA Height 5 ft 6 in Weight 168 lb 2 oz BMI Calculated 27.14 BSA Calculated 1.86 Physical Exam Constitutional1 General appearance: Abnormal. 1 (Pt has visual connection but pt does not have verbal reponses to questions. Will have short responses but does not hold conversations) Chronically ill, well nourished, overweight and well hydrated. Eyes1 Conjunctiva and lids: No swelling, erythema or discharge.1 Pupils and irises: Equal, round and reactive to light.1 Pulmonary1 Respiratory effort: No increased work of breathing or signs of respiratory distress.1 Auscultation of lungs: Clear to auscultation.1 Cardiovascular1 Auscultation of heart: Abnormal. 1 The heart rate was normal. The rhythm was regular. A grade 2 systolic murmur was heard at the RUSB. Examination of extremities for edema and/or varicosities: Abnormal. 1 Bilateral ankle 2+ pitting edema. Abdomen1 Abdomen: Non-tender, no masses.1 Musculoskeletal1 Gait and station: Abnormal. 1 (Pt is not ambulatory. Transfers with use of gabriel lift) Digits and nails: Abnormal. 1 (toe on the right food (great toe) is red and slightly swollen. ) Inspection/palpation of joints, bones, and muscles: Abnormal. 1 Pt has generalizes spasticity of all muscles and weakness. Pt is not able to purposefully move limbs.1 . Skin1 Skin and subcutaneous tissue: Abnormal. 1 (Right great toe of the right foot is swollen red and hasslit on the outer aspect of the toenail. There is mild blood on the slit. Toe is swollen and is slightly warm to touch. ) Neurologic1 Cranial nerves: Abnormal. 1 Pt is able to follow objects with eyes, able to swallow food.1 . Reflexes: Abnormal. 1 Sensation: Abnormal. 1 Psychiatric1 Orientation to person, place, and time: Abnormal. 1 Mental Status: disoriented to person, disoriented to place, disoriented to time, decreased attention span, decreased concentrating ability, difficulty naming common objects, difficulty repeating a phrase, difficulty writing a sentence, inadequate knowledge of current events and inadequate knowledge regarding past history, but intact visual attention. Mood and affect: Abnormal. 1 Mood and Affect: blunted. 1 Amended By: Sosa Ellis; Nov 15 2013 7:46 PM BRANCH OFFICE ADMINISTRATOR Assessment 1. Hypertension (401.9) (I10) 2. Hyperlipidemia (272.4) (E78.5) 3. Dementia (294.20) (F03.90) 4.1 5. Diabetes mellitus with neurological manifestations, uncontrolled (250.62,357.2) (E11.49) 1 1. Amended By: Sosa Ellis; Nov 15 2013 7:44 PM BRANCH OFFICE ADMINISTRATOR Plan 1. Namenda XR 28 MG Oral Capsule Extended Release 24 Hour; ONE DAILY 1 Rx By: Sosa Ellis; Dispense: 0 Days ; #:90 Capsule Extended Release 24 Hour; Refill: 0; For: Dementia; MICHAEL = N; Record; Last Updated By: Mary Lara; 11/09/2013 2:57:30 PM 2. MetFORMIN HCl - 500 MG Oral Tablet; TAKE 1 TABLET TWICE DAILY 1 Rx By: Sosa Ellis; Dispense: 0 Days ; #:60 Tablet; Refill: 0; For: Diabetes mellitus; MICHAEL = N; Record; Last Updated By: Mary Lara; 11/09/2013 2:57:30 PM 3. Victoza 18 MG/3ML Subcutaneous Solution; INJECT 0.6MG SUBCUTANEOUSLY DAILY 1 Rx By: Sosa Ellis; Dispense: 0 Days ; #:6 ML; Refill: 0; For: Diabetes mellitus; MICHAEL = N; Record; Last Updated By: Mary Lara; 11/09/2013 2:57:30 PM 4. Lyrica 150 MG Oral Capsule; Take 1 capsule twice daily 1 Rx By: Sosa Ellis; Dispense: 30 Days ; #:60 Capsule; Refill: 3; For: Health Maintenance; MICHAEL = N; Print Rx; Last Updated By: Mary Lara; 11/09/2013 2:57:29 PM 5. Fenofibrate Micronized 134 MG Oral Capsule; TAKE 1 CAPSULE DAILY 1 Rx By: Sosa Ellis; Dispense: 90 Days ; #:90 Capsule; Refill: 0; For: Hyperlipidemia; MICHAEL = N; Record; Last Updated By: Mary Lara; 11/09/2013 2:57:30 PM 6. Simvastatin 20 MG Oral Tablet; TAKE ONE TABLET BY MOUTH AT BEDTIME 1 Rx By: Sosa Ellis; Dispense: 90 Days ; #:90 Tablet; Refill: 1; For: Hyperlipidemia; MICHAEL = N; Record; Last Updated By: Mary Lara; 11/09/2013 2:57:30 PM 7. Simvastatin 40 MG Oral Tablet; TAKE 1 TABLET BY MOUTH AT BEDTIME 1 Rx By: Sosa Ellis; Dispense: 90 Days ; #:90 Tablet; Refill: 0; For: Hyperlipidemia; MICHAEL = N; Record; Last Updated By: Mary Lara; 11/09/2013 2:57:29 PM 8. Lisinopril 5 MG Oral Tablet; TAKE 1 TABLET DAILY 1 Rx By: Sosa Ellis; Dispense: 90 Days ; #:90 Tablet; Refill: 0; For: Hypertension; MICHAEL = N; Record; Last Updated By: Mary Lara; 11/09/2013 2:57:30 PM 9.1 Rx By: Sosa Ellis; Dispense: 0 Days ; #:90 Capsule Extended Release 24 Hour; Refill: 0; For: Dementia; MICHAEL = N; Record; Last Updated By: Mary Lara; 11/09/2013 2:57:30 PM 10.1 Rx By: Sosa Ellis; Dispense: 0 Days ; #:60 Tablet; Refill: 0; For: Diabetes mellitus; MICHAEL = N; Record; Last Updated By: Mary Lara; 11/09/2013 2:57:30 PM 11.1 Rx By: Sosa Ellis; Dispense: 0 Days ; #:6 ML; Refill: 0; For: Diabetes mellitus; MICHAEL = N; Record; Last Updated By: Mary Lara; 11/09/2013 2:57:30 PM 12.1 Rx By: Sosa Ellis; Dispense: 30 Days ; #:60 Capsule; Refill: 3; For: Health Maintenance; MICHAEL = N; Print Rx; Last Updated By: Mary Lara; 11/09/2013 2:57:29 PM 13.1 Rx By: Sosa Ellis; Dispense: 90 Days ; #:90 Capsule; Refill: 0; For: Hyperlipidemia; MICHAEL = N; Record; Last Updated By: Mary Lara; 11/09/2013 2:57:30 PM 14.1 Rx By: Sosa Ellis; Dispense: 90 Days ; #:90 Tablet; Refill: 1; For: Hyperlipidemia; MICHAEL = N; Record; Last Updated By: Mary Lara; 11/09/2013 2:57:30 PM 15.1 Rx By: Sosa Ellis; Dispense: 90 Days ; #:90 Tablet; Refill: 0; For: Hyperlipidemia; MICHAEL = N; Record; Last Updated By: Mary Lara; 11/09/2013 2:57:29 PM 16.1 Rx By: Sosa Ellis; Dispense: 90 Days ; #:90 Tablet; Refill: 0; For: Hypertension; MICHAEL = N; Record; Last Updated By: Mary Lara; 11/09/2013 2:57:30 PM 17.1 Rx By: Soas Ellis; Dispense: 90 Days ; #:90 Tablet; Refill: 0; For: Insomnia; MICHAEL = N; Record; Last Updated By: Mary Lara; 11/09/2013 2:57:30 PM 18. Donepezil HCl - 10 MG Oral Tablet; TAKE 1 TABLET BY MOUTH AT BEDTIME 1 Rx By: Sosa Ellis; Dispense: 90 Days ; #:90 Tablet; Refill: 0; For: Insomnia; MICHAEL = N; Record; Last Updated By: Mary Lara; 11/09/2013 2:57:30 PM 1. Amended By: Sosa Ellis; Nov 15 2013 7:58 PM BRANCH OFFICE ADMINISTRATOR Plan Free Text: Pt. is stable at this time. Meds, tx. and labs were reviewed. No changes in POC at this time. Pt will continue to have monthly NH visit.1 1 Amended By: Sosa Ellis; Nov 15 2013 8:04 PM BRANCH OFFICE ADMINISTRATOR Signatures Electronically signed by : Sosa Ellis NP; Nov 15 2013 8:04PM BRANCH OFFICE ADMINISTRATOR (Author) CH OFFICE ADMINISTRATOR documented in this encounter Plan of Treatment Not on file documented as of this encounter Visit Diagnoses Not on filedocumented in this encounter Care Teams Software Integration Developer Relationship Specialty Start Date End Date Aleksandr Blount MD PCP - General 11/02/14 01/31/15 documented as of this encounter
--- OUTSIDE RECORDS SUMMARY | 2024-09-21 01:24 | XMS_ITS | Encounter Summary ---
Author Organization [facility] Address [address] [address] [place] [address] Care Team Providers Care Network Architect Name Role Phone Aleksandr Blount MD Primary Care Provider Antonio elena Encounter Details Date Type Department Care Team (Latest Contact Info) Description 08/12/2013 Abstract [facility] [place] [id number] [address] Social History Tobacco Use Types Packs/Day Years Used Date Smoking Tobacco: Never Assessed Comments Unknown Sex and Gender Information Value Date Recorded Sex Assigned at Not on file Legal Sex Female 10:25 PM CDT Gender Identity Not on file Sexual Orientation Not on file documented as of this encounter Progress Notes * Saul Painter MD - 08/12/2013 12:00 AM CST [place] [address] Patient: MARY SANTOYO Med Rec#: [id number] Birthdate: 1940 Admit/Svce Date: 05/24/2013 Disch Date: 05/27/2013 Attending Md: SAUL PAINTER MD CHART DOCUMENT CLINICAL RESUME Admitting Diagnosis: Pneumonia. Discharge Diagnosis: 1. Dehydration. 2.Dementia 3.custodial acquired pneumonia. 4.Chronic kidney disease. Condition on Discharge: Improved. Prognosis guarded. Hospital Course: Patient was admitted through Emergency room, started on IV Levaquin and showed improvement. It was felt that she could continue this course orally at the custodial and she was transferred back with her usual medications and Levofloxacin 750 mg. Q 48 hours Electronically Signed by Saul Painter MD 08/22/2013 16:12DN/nac 08/12/2013 08/12/2013 9:34 A Job No: Doc No: [id number] cc: NING AND DEVELOPMENT OFFICER documented in this encounter Plan of Treatment Not on file documented as of this encounter Visit Diagnoses Not on filedocumented in this encounter Care Teams Network Architect Relationship Specialty Start Date End Date Aleksandr Blount MD PCP - General 11/02/14 01/31/15 documented as of this encounter
--- OUTSIDE RECORDS SUMMARY | 2024-09-21 01:24 | XMS_ITS | Encounter Summary ---
Author Organization [facility] Address [address] [place] [address] [place] [address] Care Team Providers Care Mercerizing Range Feeder Name Role Phone Aleksandr Blount MD Primary Care Provider Antonio elena Encounter Details Date Type Department Care Team (Latest Contact Info) Description 06/02/2013 Abstract [facility] [place] [address] [address] [address] [address] Social History Tobacco Use Types [...] on filedocumented in this encounter Care Teams Mercerizing Range Feeder Relationship Specialty Start Date End Date Aleksandr Blount MD PCP - General 11/02/14 01/31/15 documented as of this encounter
--- OUTSIDE RECORDS SUMMARY | 2024-09-21 01:24 | XMS_ITS | Encounter Summary ---
Author Organization [facility] Address [address] [facility] [place] [address] [place] [address] Care Team Providers Care Asphalt Machine Operator Name Role Phone Aleksandr Blount MD Primary Care Provider Antonio elena Encounter Details Date Type Department Care Team (Latest Contact Info) Description 03/30/2014 Abstract [facility] [place] [address] [address] [address] [address] [address] Social History Tobacco Use Types [...] on filedocumented in this encounter Care Teams Asphalt Machine Operator Relationship Specialty Start Date End Date Aleksandr Blount MD PCP - General 11/02/14 01/31/15 documented as of this encounter
--- OUTSIDE RECORDS SUMMARY | 2024-09-21 01:24 | XMS_ITS | Encounter Summary ---
Author Organization [facility] Address [facility] [facility] [place] [address] [place] [address] Care Team Providers Care Contact Agent Name Role Phone Aleksandr Blount MD Primary Care Provider Antonio elena Encounter Details Date Type Department Care Team (Late st Contact Info) Description 02/15/2014 Abstract [facility] Medical Group Family & Internal Medicine - [place] [address] [place] [address] Sosa Ellis NP Social History [...] Sign Reading Time Taken Comments Blood Pressure 105/63 02/15/2014 2:48 PM CDT Pulse 79 02/15/2014 2:48 PM CDT Temperature - - Respiratory Rate - - Oxygen Saturation - - Inhaled Oxygen Concentration - - Weight 72.9 kg (160 lb 12.8 oz) 02/15/2014 2:48 PM CDT Height 167.6 cm (5' 6 ) 02/15/2014 2:48 PM CDT Body Mass Index 25.95 02/15/2014 2:48 PM CDT documented in this encounter Progress Notes * Sosa Ellis NP - 02/15/2014 4:30 PM CDT Reason For Visit Problem Focused Visit Fpc Visit Chief Complaint Chief Complaint Free Text: Round - bruised areas on her buttocks. History of Present Illness HPI Free Text: Pt has bluish discoloration over the buttocks on the left gluteus in the fold. There is no swellingbut the area is blue. There are two areas linear placed one above the other. Both are 1.5 cm lengthand 1 cm wide. rectangular in shape, purple color. Pt is denying pain. Pt is totally dependant on staff for all ADLs including transfers. Pt is transferred using gabriel lift into wheel chair. Review of Systems Complete-Female: See HPI for pertinent positives. Constitutional: as noted in HPI and fatigue. Head and Face: negative. Eyes: negative. ENT: negative. Cardiovascular: as noted in HPI. Respiratory: negative. Gastrointestinal: negative. Genitourinary: as noted in HPI. Musculoskeletal: as noted in HPI. Integumentary as noted in HPI and bruising. Neurological As Noted in HPI. Psychiatric: negative. as noted in HPI Active Problems 1. Bruising (924.9) (T14.8) 2. Cellulitis (682.9) (L03.90) 3. Dementia (294.20) (F03.90) 4. Diabetes mellitus (250.00) (E11.9) 5. 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 Generalized multiple sclerosis (340) (G35) 7. Hyperlipidemia (272.4) (E78.5) 8. Hypertension (401.9) (I10) 9. Insomnia (780.52) (G47.00) 10. Mild vitamin [...] BY MOUTH AT BEDTIME; Therapy: 24Mar2013 to (Evaluate:07Feb2014); Last Rx:09Nov2013 Ordered 3. Fenofibrate Micronized 134 MG Oral Capsule; TAKE 1 CAPSULE DAILY; Therapy: 62Yha5988 to (Evaluate:07Feb2014); Last Rx:09Nov2013 Ordered 4. Lisinopril 5 MG Oral Tablet; TAKE 1 TABLET DAILY; Therapy: 11Mar2013 to (Evaluate:07Feb2014); Last Rx:09Nov2013 Ordered 5. Lyrica 150 MG Oral Capsule; Take 1 capsule twice daily; Therapy: 12Jan2013 to (Evaluate:10Jun2014); Last Rx:10Feb2014 Ordered 6. MetFORMIN HCl - 500 MG Oral Tablet; TAKE 1 TABLET TWICE DAILY; Therapy: 09Jul2013 to (Last Rx:09Nov2013) Ordered 7. Namenda XR 28 MG Oral Capsule Extended Release 24 Hour; ONE DAILY; Therapy: 21Jun2013 to (Last Rx:09Nov2013) Ordered 8. NovoFine Autocover 30G X 8 MM Miscellaneous; Therapy: 04Mar2013 to Recorded 9. Simvastatin 20 MG Oral Tablet; TAKE ONE TABLET BY MOUTH AT BEDTIME; Therapy: 28May2013 to (Evaluate:08May2014); Last Rx:09Nov2013 Ordered 10. Simvastatin 40 MG Oral Tablet; TAKE 1 TABLET BY MOUTH AT BEDTIME; Therapy: 29Mar2013 to (Evaluate:07Feb2014); Last Rx:09Nov2013 Ordered 11. Sodium Chloride 0.9 % Irrigation Solution; Therapy: 04Aug2013 to Recorded 12. Tobramycin Sulfate 0.3 % SOLN; Therapy: 29Jul2013 to Recorded 13. Victoza 18 MG/3ML SOLN; INJECT 0.6MG SUBCUTANEOUSLY DAILY; Therapy: 23Mar2013 to (Last Rx:09Nov2013) Ordered Allergies 1. Flagyl CAPS Vitals Vital Signs [Data Includes: Current Encounter] Recorded by : Mary Lara at 15Feb2014 02:48PM Temperature 96 F Heart Rate 79 Respiration 16 Systolic 105 Diastolic 63 O2 Saturation 97, RA Height 5 ft 6 in Weight 160 lb 12.8 oz BMI Calculated 25.95 BSA Calculated 1.82 Physical Exam Constitutional General appearance: Abnormal. (Pt has visual connection but pt does not have verbal reponses to questions. Will have short responses but does not hold conversations) Chronically ill, well nourished, overweight and well hydrated. Eyes Conjunctiva and lids: No swelling, erythema or discharge. Pupils and irises: Equal, round and reactive to light. Pulmonary Respiratory effort: No increased work of breathing or signs of respiratory distress. Auscultation of lungs: Clear to auscultation. Cardiovascular Auscultation of heart: Abnormal. The heart rate was normal. The rhythm was regular. A grade 2 systolic murmur was heard at the RUSB. Examination of extremities for edema and/or varicosities: Abnormal. Bilateral ankle 2+ pitting edema. Abdomen Abdomen: Non-tender, no masses. Musculoskeletal Gait and station: Abnormal. (Pt is not ambulatory. Transfers with use of gabriel lift) Digits and nails: Abnormal. (toe on the right food (great toe) is red and slightly swollen. ) Inspection/palpation of joints, bones, and muscles: Abnormal. Pt has generalizes spasticity of all muscles and weakness. Pt is not able to purposefully move limbs. Skin Skin and subcutaneous tissue: Abnormal. (Note the HPI for description of bruising on the inner crease of the gluteal fold left upper gluteal muscle. ) Neurologic Cranial nerves: Abnormal. Pt is able to follow objects with eyes, able to swallow food. Psychiatric Orientation to person, place, and time: Abnormal. Mental Status: disoriented to person, disorientedto place, disoriented to time, decreased attention span, decreased concentrating ability, difficulty naming common objects, difficulty repeating a phrase, difficulty writing a sentence, inadequate knowledge of current events and inadequate knowledge regarding past history, but intact visual attention. Mood and affect: Abnormal. Mood and Affect: blunted. Assessment 1. Bruising (924.9) (T14.8) Plan Pt is transferred with use of gabriel lift, suspect that the bruise was caused from shearing from thehoyer sling. No signs of infection no swelling and pt is not complaining of pain. Pt will need to be monitored and off load pressure from the buttocks as much as possible. No other treatment of the area at this time. Signatures Electronically signed by : Sosa Ellis NP; Feb 20 2014 6:53PM SKIN CARE SPECIALIST (Author) documented in this encounter Plan of Treatment Not on file documented as of this encounter Visit Diagnoses Not on filedocumented in this encounter Care Teams Contact Agent Relationship Specialty Start Date End Date Aleksandr Blount MD PCP - General 11/02/14 01/31/15 documented as of this encounter
--- OUTSIDE RECORDS SUMMARY | 2024-09-21 01:24 | XMS_ITS | Encounter Summary ---
Author Organization [facility] Address [address] [place] [address] [place] [address] Care Team Providers Care Helper Driver Name Role Phone Aleksandr Blount MD Primary Care Provider U kassy Encounter Details Date Type Department Care Team (Latest Contact Info) Description 01/20/2013 Abstract [facility] Medical Group Social History [...] on filedocumented in this encounter Care Teams Helper Driver Relationship Specialty Start Date End Date Aleksandr Blount MD PCP - General 11/02/14 01/31/15 documented as of this encounter
--- OUTSIDE RECORDS SUMMARY | 2024-09-21 01:24 | XMS_ITS | Encounter Summary ---
Author Organization [facility] Address [address] [facility] [place] [address] [place] [address] Care Team Providers Care Jet Ski Mechanic Name Role Phone Aleksandr Blount MD Primary Care Provider U kassy Encounter Details Date Type Department Care Team (Latest Contact Info) Description 07/22/2013 Abstract [facility] Medical Group Social History Tobacco Use [...] on filedocumented in this encounter Care Teams Jet Ski Mechanic Relationship Specialty Start Date End Date Aleksandr Blount MD PCP - General 11/02/14 01/31/15 documented as of this encounter
--- OUTSIDE RECORDS SUMMARY | 2024-09-21 01:24 | XMS_ITS | Encounter Summary ---
Author Organization [facility] Address [address] [facility] [place] [address] [place] [address] Care Team Providers Care Clinical Assoc Name Role Phone Aleksandr Blount MD Primary Care Provider U kassy Encounter Details Date Type Department Care Team (Latest Contact Info) Description 01/16/2014 Abstract [facility] Medical Group Social History Tobacco [...] on filedocumented in this encounter Care Teams Clinical Assoc Relationship Specialty Start Date End Date Aleksandr Blount MD PCP - General 11/02/14 01/31/15 documented as of this encounter
--- OUTSIDE RECORDS SUMMARY | 2024-09-21 01:24 | XMS_ITS | Encounter Summary ---
Author Organization [facility] Address [address] [facility] [place] [address] [place] [address] Care Team Providers Care Industrial Machine Operator Name Role Phone Aleksandr Blount MD Primary Care Provider U kassy Encounter Details Date Type Department Care Team (Latest Contact Info) Description 06/08/2013 Abstract [facility] Medical Group Social History Tobacco [...] filedocumented in this encounter Care Teams Industrial Machine Operator Relationship Specialty Start Date End Date Aleksandr Blount MD PCP - General 11/02/14 01/31/15 documented as of this encounter
--- OUTSIDE RECORDS SUMMARY | 2024-09-21 01:24 | XMS_ITS | Encounter Summary ---
Author Organization [facility] Address [address] [facility] [place] [address] [place] [address] Care Team Providers Care Plastics Fitter Name Role Phone Aleksandr Blount MD Primary Care Provider U kassy Encounter Details Date Type Department Care Team (Late st Contact Info) Description 10/17/2014 Abstract [facility] Medical Group Family & Internal Medicine - [place] [address] [place] [address] Aleksandr Blount MD Social History Tobacco Use Types Packs/Day Years Used Date Smoking Tobacco: Never Assessed Comments Unknown Sex and Gender Information Value Date Recorded Sex Assigned at Not on file Legal Sex Female 10:25 PM CDT Gender Identity Not on file Sexual Orientation Not on file documented as of this encounter Progress Notes * Aleksandr Blount MD - 10/17/2014 5:00 PM CST Reason For Visit Fpc Visit Chief Complaint Chief Complaint Free Text: Routine Fpc visit History of Present Illness HPI Free Text: This patient has dementia, the patient is stable and he seems to be comfortable. The patient currently received the care that is necessary, the patient seems to be in no distress. The patient is taking the medications that are prescribed, with no signs of intolerance.this is one of the new patient is that at the From either Dr. Bermudez or Dr. Villar. Review of Systems Complete-Female: See HPI for pertinent positives. Constitutional: negative. ENT: negative. Cardiovascular: negative. Respiratory: negative. Gastrointestinal: negative. Genitourinary: negative. Musculoskeletal: she does not ambulate. Integumentary reason rash is improve . Neurological has a history of multiple sclerosis. Active Problems 1. Bruising (924.9) (T14.8) 2. [...] TABLET TWICE DAILY; Therapy: 09Jul2013 to (Last Rx:[id number]) Ordered 7. Mupirocin 2 % External Ointment; Therapy: 29Mar2014 to Recorded 8. Namenda XR 28 MG Oral Capsule Extended Release 24 Hour; ONE DAILY; Therapy: 63Gxl6427 to (Last Rx:[id number]) Ordered 9. NovoFine Autocover 30G X 8 MM Miscellaneous; Therapy: 04Mar2013 to Recorded 10. Simvastatin 40 MG Oral Tablet; TAKE 1 TABLET BY MOUTH AT BEDTIME; Therapy: 29Mar2013 to (Evaluate:15Aug2014) Recorded 11. Sodium Chloride 0.9 % Irrigation Solution; Therapy: 04Aug2013 to Recorded 12. Tobramycin Sulfate 0.3 % SOLN; Therapy: 29Jul2013 to Recorded 13. Victoza 18 MG/3ML SOLN; INJECT 0.6MG SUBCUTANEOUSLY DAILY; Therapy: 23Mar2013 to (Last Rx:[id number]) Ordered 14. Victoza 18 MG/3ML Subcutaneous Solution Pen-injector; Therapy: 22Dec2013 to Recorded Allergies 1. Flagyl CAPS Physical Exam Constitutional General appearance: No acute distress, well appearing and well nourished. Ears, Nose, Mouth, and Throat External inspection of ears and nose: Normal. Pulmonary Respiratory effort: No increased work of breathing or signs of respiratory distress. Auscultation of lungs: Clear to auscultation. Cardiovascular Auscultation of heart: Normal rate and rhythm, normal S1 and S2, without murmurs. Examination of extremities for edema and/or varicosities: Normal. Abdomen Abdomen: Non-tender, no masses. Liver and spleen: No hepatomegaly or splenomegaly. Lymphatic Palpation of lymph nodes in neck: No lymphadenopathy. Musculoskeletal Generalize muscle atrophy is in a wheelchair and does not ambulate. Neurologic Evidence of muscle atrophy. Psychiatric Orientation to person, place, and time: Abnormal. Mental Status: disoriented to person, disorientedto place and disoriented to time. Assessment 1. 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 Hypertension (401.9) (I10) 3. Generalized multiple sclerosis (340) (G35) 4. Hyperlipidemia (272.4) (E78.5) 5. Dementia (294.20) (F03.90) Discussion/Summary Discussion Summary Free Text: The patient [...] Electronically signed by : Aleksandr Blount M.D.; Oct 21 2014 1:39PM ASSEMBLING MOTOR BUILDER (Author) documented in this encounter Plan of Treatment Not on file documented as of this encounter Visit Diagnoses Not on filedocumented in this encounter Care Teams Plastics Fitter Relationship Specialty Start Date End Date Aleksandr Blount MD PCP - General 11/02/14 01/31/15 documented as of this encounter
--- OUTSIDE RECORDS SUMMARY | 2024-09-21 01:24 | XMS_ITS | Encounter Summary ---
Author Organization [facility] Address [address] [facility] [address] [place] [address] Care Team Providers Care Port Traffic Manager Name Role Phone Aleksandr Blount MD Primary Care Provider U kassy Encounter Details Date Type Department Care Team (Latest Contact Info) Description 03/13/2014 Abstract [facility] Medical Group Social History Tobacco Use Types [...] on filedocumented in this encounter Care Teams Port Traffic Manager Relationship Specialty Start Date End Date Aleksandr Blount MD PCP - General 11/02/14 01/31/15 documented as of this encounter
--- OUTSIDE RECORDS SUMMARY | 2024-09-21 01:24 | XMS_ITS | Encounter Summary ---
Author Organization [facility] Address [facility] [facility] [place] [address] [place] [address] Care Team Providers Care Procurement Clerk Name Role Phone Aleksandr Blount MD Primary Care Provider Antonio elena Encounter Details Date Type Department Care Team (Late st Contact Info) Description 01/04/2014 Abstract [facility] Medical Group Family & Internal Medicine - [place] [address] [place] [address] Sosa Ellis NP Social History [...] Sign Reading Time Taken Comments Blood Pressure 102/52 01/04/2014 2:25 PM CDT Pulse 70 01/04/2014 2:25 PM CDT Temperature - - Respiratory Rate - - Oxygen Saturation - - Inhaled Oxygen Concentration - - Weight 76.2 kg (168 lb) 01/04/2014 2:25 PM CDT Height 167.6 cm (5' 6 ) 01/04/2014 2:25 PM CDT Body Mass Index 27.12 01/04/2014 2:25 PM CDT documented in this encounter Progress Notes * Sosa Ellis NP - 01/04/2014 2:30 PM CDT Reason For Visit Group Home Visit Chief Complaint Chief Complaint Free Text: Routine monthly NH visit. History of Present Illness HPI Free Text: Pt is sitting up in the LR in the w/c. Pt has been transferred by staff using gabriel lift. Pt is more alert today and seems to be tracking with eyes and even answering short answer questions. Alert, disoriented to place and time. Pt is able to sleep through the night. Pt. naps a couple times during the day. Pt is assisted by the staff with all ADLs. Pt is assisted with eating and drinking. Weight is stable. No falls. Pt is incontinent of urine and BM. Pt skin is good condition. Turgor is good. Diabetes Type II (Follow-Up): The patient states [...] is doing well with her diabetes goals. Alzheimers Disease (Follow-Up): The patient is being [...] The patient states her hyperlipidemia has been stable since the last visit. Symptoms: Stable chest pain, stable intermittent leg claudication, worsened muscle pain and worsened muscle weakness. Associated symptoms include memory loss, but no focal neurologic deficits. Medications: The patient is adherent with her medication regimen. She denies medication side effects. Hypertension (Follow-Up): The patient presents for follow-up [...] noted in HPI. Neurological As Noted in HPI. Psychiatric: negative. as noted in HPI Active Problems 1. Cellulitis (682.9) (L03.90) 2. Dementia (294.20) (F03.90) 3. Diabetes mellitus (250.00) (E11.9) 4. 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 Generalized multiple sclerosis (340) (G35) 6. Hyperlipidemia (272.4) (E78.5) 7. Hypertension (401.9) (I10) 8. Insomnia (780.52) (G47.00) 9. Open wound of toe with complication (893.1) [...] Oral Capsule; TAKE 1 CAPSULE DAILY; Therapy: 28May2013 to (Evaluate:07Feb2014); Last Rx:[id number] Ordered 4. Lisinopril 5 MG Oral Tablet; TAKE 1 TABLET DAILY; Therapy: 21Tyx5686 to (Evaluate:36Req9517); Last Rx:[id number] Ordered 5. Lyrica 150 MG Oral Capsule; Take 1 capsule twice daily; Therapy: 40Pcm5150 to (Evaluate:09Mar2014); Last Rx:[id number] Ordered 6. MetFORMIN HCl - 500 MG Oral Tablet; TAKE 1 TABLET TWICE DAILY; Therapy: 79Sym5590 to (Last Rx:[id number]) Ordered 7. Namenda XR 28 MG Oral Capsule Extended Release 24 Hour; ONE DAILY; Therapy: 23Xqk8171 to (Last Rx:[id number]) Ordered 8. NovoFine Autocover 30G X 8 MM Miscellaneous; Therapy: 04Mar2013 to Recorded 9. Simvastatin 20 MG Oral Tablet; TAKE ONE TABLET BY MOUTH AT BEDTIME; Therapy: 76Cli4463 to (Evaluate:08May2014); Last Rx:[id number] Ordered 10. Simvastatin 40 MG Oral Tablet; TAKE 1 TABLET BY MOUTH AT BEDTIME; Therapy: 89Hrj6445 to (Evaluate:07Feb2014); Last Rx:[id number] Ordered 11. Sodium Chloride 0.9 % Irrigation Solution; Therapy: 04Aug2013 to Recorded 12. Tobramycin Sulfate 0.3 % Ophthalmic Solution; Therapy: 29Jul2013 to Recorded 13. Victoza 18 MG/3ML Subcutaneous Solution; INJECT 0.6MG SUBCUTANEOUSLY DAILY; Therapy: 23Mar2013 to (Last Rx:[id number]) Ordered Allergies 1. Flagyl CAPS Vitals Vital Signs [Data Includes: Current Encounter] Recorded by : Mary Lara at 04Jan2014 02:25PM Temperature 97.4 F Heart Rate 70 Respiration 20 Systolic 102 Diastolic 52 O2 Saturation 98 Height 5 ft 6 in Weight 168 lb BMI Calculated 27.12 BSA Calculated 1.86 Physical Exam Constitutional General appearance: Abnormal. (Pt [...] limbs. Skin Skin and subcutaneous tissue: Abnormal. (Right great toe of the right foot is swollen red and has slit on the outer aspect of the toenail. There is mild blood on the slit. Toe is swollen and is slightly warm to touch. ) Neurologic Cranial nerves: Abnormal. Pt is [...] Abnormal. Mood and Affect: blunted. Assessment 1. 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 Hyperlipidemia (272.4) (E78.5) 3. Hypertension (401.9) (I10) 4. Dementia (294.20) (F03.90) Plan 1. CBC W Differential Status: Hold For - Manual Activation Requested for: 09Jan2014 Perform: . [facility] Due: 82Mpr9885; Ordered; For: Dementia, Diabetes mellitus with neurological manifestations, uncontrolled, Hyperlipidemia, Hypertension; Ordered By: Sosa Ellis 2. Compr Metabolic Prof ( CMP ) Status: Hold For - Manual Activation Requested for: 09Jan2014 Perform: [facility] Due: 95Nwt9061; Ordered; For: Dementia, Diabetes mellitus with neurological manifestations, uncontrolled, Hyperlipidemia, Hypertension; Ordered By: Sosa Ellis 3. Hemoglobin A1C Status: Hold For - Manual Activation Requested for: 09Jan2014 Perform: . [facility] Due: 16Jan2014; Ordered; For: Dementia, Diabetes mellitus with neurological manifestations, uncontrolled, Hyperlipidemia, Hypertension; Ordered By: Sosa Ellis 4. Thyroid Stim Hormone ( TSH ) Status: Hold For - Manual Activation Requested for: 09Jan2014 Perform: . [facility] Due: 16Jan2014; Ordered; For: Dementia, Diabetes mellitus with neurological manifestations, uncontrolled, Hyperlipidemia, Hypertension; Ordered By: Sosa Ellis 5. Urine Microalbumin Status: Hold For - Manual Activation Requested for: 09Jan2014 Perform: . [facility] Due: 16Jan2014; Ordered; For: Dementia, Diabetes mellitus with neurological manifestations, uncontrolled, Hyperlipidemia, Hypertension; Ordered By: Sosa Ellis 6. Vitamin B12 And Folate Status: Hold For - Manual Activation Requested for: 09Jan2014 Perform: [facility] Due: 16Jan2014; Ordered; For: Dementia, Diabetes mellitus with neurological manifestations, uncontrolled, Hyperlipidemia, Hypertension; Ordered By: Sosa Ellis 7. Lipid W/ Calculated LDL Status: Hold For - Manual Activation Requested for: 09Jan2014 Perform: . [facility] Due: 16Jan2014; Ordered; For: Dementia, Diabetes mellitus with neurological manifestations, uncontrolled, Hyperlipidemia, Hypertension, Mild vitamin D deficiency; Ordered By: Sosa Ellis 8. Vitamin D 25 - Hydroxy Status: Hold For - Manual Activation Requested for: 09Jan2014 Perform: . [facility] Due: 16Jan2014; Ordered; For: Dementia, Diabetes mellitus with neurological manifestations, uncontrolled, Hyperlipidemia, Hypertension, Mild vitamin D deficiency; Ordered By: Sosa Ellis Plan Free Text: Pt is needing to have a repeat of some labs. CBC, CMP, A1c TSH, Vit B12 and Vit D, urine microalbumin, Pt is stable at this time. Meds, tx, and labs have been reviewed No other changes at this time POC Will cont routine NH visits monthly at this time. Signatures Electronically signed by : Sosa Ellis NP; Jan 09 2014 8:19PM METAL NUMERICAL TOOL PROGRAMMER (Author) documented in this encounter Plan of Treatment Not on file documented as of this encounter Visit Diagnoses Not on filedocumented in this encounter Care Teams Procurement Clerk Relationship Specialty Start Date End Date Aleksandr Blount MD PCP - General 11/02/14 01/31/15 documented as of this encounter
--- OUTSIDE RECORDS SUMMARY | 2024-09-21 01:24 | XMS_ITS | Encounter Summary ---
Author Organization [facility] Address [address] [facility] [place] [address] [place] [address] Care Team Providers Care Commercial Escrow Assistant Name Role Phone Aleksandr Blount MD Primary Care Provider Antonio elena Encounter Details Date Type Department Care Team (Latest Contact Info) Description 04/20/2014 Abstract [facility] [place] [address] [address] [address] Social History Tobacco Use Types [...] on filedocumented in this encounter Care Teams Commercial Escrow Assistant Relationship Specialty Start Date End Date Aleksandr Blount MD PCP - General 11/02/14 01/31/15 documented as of this encounter
--- OUTSIDE RECORDS SUMMARY | 2024-09-21 01:24 | XMS_ITS | Encounter Summary ---
Author Organization [facility] Address [facility] [facility] [place] [address] [place] [address] Care Team Providers Care Director Safety Name Role Phone Aleksandr Blount MD Primary Care Provider Antonio elena Encounter Details Date Type Department Care Team (Latest Contact Info) Description 09/10/2014 Abstract [facility] [place] [address] [place] [address] Social History Tobacco Use Types Packs/Day [...] Procedure Name Priority Date/Time Associated Diagnosis Comments INFLUENZA A & B Routine 09/10/2014 5:45 PM RESIDENTIAL CHILD CARE COUNSELOR documented in this encounter Results * INFLUENZA A & B (09/10/2014 5:45 PM RESIDENTIAL CHILD CARE COUNSELOR) INFLUENZA A NEG NEG [facility] TO EPIC CONVERSION INFLUENZA B NEG NEG [facility] TO EPIC CONVERSION SPECIMEN TYPE NASOPHARYNX [facility] ROUP TO EPIC CONVERSION 09/10/2014 5:45 PM RESIDENTIAL CHILD CARE COUNSELOR 09/10/2014 5:45 PM RESIDENTIAL CHILD CARE COUNSELOR Narrative [facility] TO EPIC CONVERSION - 09/10/2014 5:59 PM RESIDENTIAL CHILD CARE COUNSELOR Result Communication: No patient communication needed at this time us Rafi Rodriguez MD MICROBIOLOGY - GENERAL ALICIA HUITRON Final Result [facility] TO EPIC CONVERSION documented in this encounter Visit Diagnoses Not on filedocumented in this encounter Care Teams Director Safety Relationship Specialty Start Date End Date Aleksandr Blount MD PCP - General 11/02/14 01/31/15 documented as of this encounter
--- OUTSIDE RECORDS SUMMARY | 2024-09-21 01:24 | XMS_ITS | Encounter Summary ---
Author Organization [facility] Address [facility] [facility] [place] [address] [place] [address] Care Team Providers Care Director Of Front Office Name Role Phone Aleksandr Blount MD Primary Care Provider Antonio elena Encounter Details Date Type Department Care Team (Late st Contact Info) Description 03/29/2014 Abstract [facility] Medical Group Family & Internal Medicine - [place] [address] [place] [address] [place] [address] [address] Social History Tobacco Use Types Packs/Day Years Used Date Smoking Tobacco: Never Assessed Comments Unknown Sex and Gender Information Value Date Recorded Sex Assigned at Not on file Legal Sex Female 10:25 PM CDT Gender Identity Not on file Sexual Orientation Not on file documented as of this encounter Progress Notes * Yoan Bermudez MD - 03/29/2014 6:00 AM CDT Reason For Visit Senior Care Visit History of Present Illness HPI Free Text: Sitting at breakfast table answers questions in short sentences appropriately. Poor eye contact. No behavior problems per the nursing staff. Review of Systems Complete-Female: Constitutional: no fatigue. Cardiovascular: no chest pain. Respiratory: no shortness of breath. Gastrointestinal: no constipation. Active Problems 1. Bruising (924.9) (T14.8) 2. Cellulitis (682.9) (L03.90) 3. Dementia (294.20) (F03.90) 4. Diabetes mellitus (250.00) (E11.9) 5. 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 Generalized multiple sclerosis (340) (G35) 7. Hyperlipidemia (272.4) (E78.5) 8. Hypertension (401.9) (I10) 9. Ingrowing nail with infection (703.0) (L60.0) 10. Insomnia (780.52) (G47.00) 11. Mild vitamin [...] BY MOUTH AT BEDTIME; Therapy: 24Mar2013 to (Evaluate:94Oll1047); Last Rx:[id number] Ordered 3. Fenofibrate 145 MG Oral Tablet; Therapy: 30Nov2013 to Recorded 4. Lisinopril 5 MG Oral Tablet; TAKE 1 TABLET DAILY; Therapy: 11Mar2013 to (Evaluate:53Eox5246); Last Rx:[id number] Ordered 5. Lyrica 150 MG Oral Capsule; Take 1 capsule twice daily; Therapy: 99Nel9701 to (Evaluate:26Gqo0795); Last Rx:[id number] Ordered 6. MetFORMIN HCl - 500 MG Oral Tablet; TAKE 1 TABLET TWICE DAILY; Therapy: 09Jul2013 to (Last Rx:[id number]) Ordered 7. Namenda XR 28 MG Oral Capsule Extended Release 24 Hour; ONE DAILY; Therapy: 36Aku9476 to (Last Rx:[id number]) Ordered 8. NovoFine Autocover 30G X 8 MM Miscellaneous; Therapy: 04Mar2013 to Recorded 9. Simvastatin 40 MG Oral Tablet; TAKE 1 TABLET BY MOUTH AT BEDTIME; Therapy: 29Mar2013 to (Evaluate:61Yvp7223); Last Rx:[id number] Ordered 10. Sodium Chloride 0.9 % Irrigation Solution; Therapy: 04Aug2013 to Recorded 11. Tobramycin Sulfate 0.3 % SOLN; Therapy: 29Jul2013 to Recorded 12. Victoza 18 MG/3ML SOLN; INJECT 0.6MG SUBCUTANEOUSLY DAILY; Therapy: 23Mar2013 to (Last Rx:[id number]) Ordered Allergies 1. Flagyl CAPS Physical Exam Constitutional General appearance: Abnormal. Overweight and appearance reflects stated age. Pulmonary Auscultation of lungs: Clear to auscultation. Cardiovascular Auscultation of heart: Normal rate and rhythm, normal S1 and S2, without murmurs. Examination of extremities for edema and/or varicosities: Abnormal. Bilateral ankle pitting edema. Psychiatric Orientation to person, place, and time: Abnormal. Mental Status: disoriented to place and disoriented to time, but oriented to person. Mood and affect: Abnormal. Mood and Affect: unemotional. Assessment 1. Dementia (294.20) (F03.90) 2. Hypertension (401.9) (I10) 3. Hyperlipidemia (272.4) (E78.5) Plan Continue same meds Hemoglobin A1c every 3 months Recheck in 2 months Signatures Electronically signed by : Yoan Bermudez M.D.; Mar 29 2014 11:26PM NURSING CARE PARTNER (Author) documented in this encounter Plan of Treatment Not on file documented as of this encounter Visit Diagnoses Not on filedocumented in this encounter Care Teams Director Of Front Office Relationship Specialty Start Date End Date Aleksandr Blount MD PCP - General 11/02/14 01/31/15 documented as of this encounter
--- OUTSIDE RECORDS SUMMARY | 2024-09-21 01:24 | XMS_ITS | Encounter Summary ---
Author Organization [facility] Address [address] [facility] [place] [address] [place] [address] Care Team Providers Care Back Tender Fourdrinier Name Role Phone Aleksandr Blount MD Primary Care Provider U kassy Encounter Details Date Type Department Care Team (Latest Contact Info) Description 09/05/2013 Abstract [facility] Medical Group Social History Tobacco Use [...] on filedocumented in this encounter Care Teams Back Tender Fourdrinier Relationship Specialty Start Date End Date Aleksandr Blount MD PCP - General 11/02/14 01/31/15 documented as of this encounter
--- OUTSIDE RECORDS SUMMARY | 2024-09-21 01:24 | XMS_ITS | Encounter Summary ---
Author Organization [facility] Address [address] [facility] [place] [address] [place] [address] Care Team Providers Care Latex Dipper Name Role Phone Aleksandr Blount MD Primary Care Provider Antonio elena Encounter Details Date Type Department Care Team (Latest Contact Info) Description 05/12/2014 Abstract [facility] [place] [address] [address] [address] Social History Tobacco Use Types [...] on filedocumented in this encounter Care Teams Latex Dipper Relationship Specialty Start Date End Date Aleksandr Blount MD PCP - General 11/02/14 01/31/15 documented as of this encounter
--- OUTSIDE RECORDS SUMMARY | 2024-09-21 01:24 | XMS_ITS | Encounter Summary ---
Author Organization [facility] Address [address] [place] [address] [place] [address] Care Team Providers Care Corporate Communications Intern Name Role Phone Aleksandr Blount MD Primary Care Provider U Frieda Salcedo MD Primary Care Provider Unavailab Kiery Salazar LOAN OPERATIONS MANAGER Unavailable [phone] Encounter Details Date Type Department Care Team (Late st Contact Info) Description 08/18/2013 Abstract [facility] [address] [place] [address] [place] [address] [facility] [address] [place] [address] Social History Tobacco Use Types Packs/Day Years Used Date Smoking Tobacco: Never Assessed Comments Unknown Sex and Gender Information Value Date Recorded Sex Assigned at Not on file Legal Sex Female 10:25 PM CDT Gender Identity Not on file Sexual Orientation Not on file documented as of this encounter Plan of Treatment Not on file documented as of this encounter Visit Diagnoses Diagnosis Open wound of toe with complication Open wound of toe(s), complicated documented in this encounter Care Teams Corporate Communications Intern Relationship Specialty Start Date End Date Aleksandr Blount MD PCP - General 11/02/14 01/31/15 Frieda Wasserman MD PCP - General INTERNAL MEDICINE 08/31/18 02/23/20 Keiry Rucker NP Consulting Physician Senior Living Facility 10/04/18 04/13/19 documented as of this encounter
--- OUTSIDE RECORDS SUMMARY | 2024-09-21 01:24 | XMS_ITS | Encounter Summary ---
Author Organization [facility] Address [address] [facility] [place] [address] [place] [address] Care Team Providers Care Cooking Teacher Name Role Phone Aleksandr Blount MD Primary Care Provider U kassy Encounter Details Date Type Department Care Team (Latest Contact Info) Description 08/04/2013 Abstract [facility] Social History Tobacco Use Types [...] on filedocumented in this encounter Care Teams Cooking Teacher Relationship Specialty Start Date End Date Aleksandr Blount MD PCP - General 11/02/14 01/31/15 documented as of this encounter
--- OUTSIDE RECORDS SUMMARY | 2024-09-21 01:24 | XMS_ITS | Encounter Summary ---
Author Organization [facility] Address [address] [facility] [place] [address] [place] [address] Care Team Providers Care Roll On Man Name Role Phone Aleksandr Blount MD Primary Care Provider Antonio elena Encounter Details Date Type Department Care Team (Latest Contact Info) Description 06/23/2013 Abstract [facility] [...] on filedocumented in this encounter Care Teams Roll On Man Relationship Specialty Start Date End Date Aleksandr Blount MD PCP - General 11/02/14 01/31/15 documented as of this encounter
--- OUTSIDE RECORDS SUMMARY | 2024-09-21 01:24 | XMS_ITS | Encounter Summary ---
Author Organization [facility] Address [address] [facility] [place] [address] [place] [address] Care Team Providers Care Fruit And Vegetable Packer Name Role Phone Aleksandr Blount MD Primary Care Provider U kassy Encounter Details Date Type Department Care Team (Latest Contact Info) Description 09/19/2014 Abstract [facility] Medical Group Sosa Ellis, STORE CONSULTANT Social History Tobacco Use Types Packs/Day Years [...] on filedocumented in this encounter Care Teams Fruit And Vegetable Packer Relationship Specialty Start Date End Date Aleksandr Blount MD PCP - General 11/02/14 01/31/15 documented as of this encounter
--- OUTSIDE RECORDS SUMMARY | 2024-09-21 01:24 | XMS_ITS | Encounter Summary ---
Author Organization [facility] Address [address] [facility] [place] [address] [place] [address] Care Team Providers Care Endband Cutter Hand Name Role Phone Aleksandr Blount MD Primary Care Provider Antonio elena Encounter Details Date Type Department Care Team (Latest Contact Info) Description 06/27/2013 Abstract [facility] Medical Group Social History Tobacco [...] on filedocumented in this encounter Care Teams Endband Cutter Hand Relationship Specialty Start Date End Date Aleksandr Blount MD PCP - General 11/02/14 01/31/15 documented as of this encounter
--- OUTSIDE RECORDS SUMMARY | 2024-09-21 01:24 | XMS_ITS | Encounter Summary ---
Author Organization [facility] Address [address] [facility] [place] [address] [place] [address] Care Team Providers Care Stock Buyer Name Role Phone Aleksandr Blount MD Primary Care Provider U kassy Encounter Details Date Type Department Care Team (Latest Contact Info) Description 05/15/2014 Abstract [facility] Medical Group Sosa Ellis, PHARMACY INFORMATICS SPECIALIST Social History Tobacco Use Types Packs/Day Years [...] on filedocumented in this encounter Care Teams Stock Buyer Relationship Specialty Start Date End Date Aleksandr Blount MD PCP - General 11/02/14 01/31/15 documented as of this encounter
--- OUTSIDE RECORDS SUMMARY | 2024-09-21 01:24 | XMS_ITS | Encounter Summary ---
Author Organization [facility] Address [address] [facility] [place] [address] [place] [address] Care Team Providers Care Manager Council Name Role Phone Aleksandr Blount MD Primary Care Provider U Frieda Salcedo MD Primary Care Provider Unavailab Keiry Salazar COMMUNICATIONS ADMINISTRATOR Unavailable [phone] Yolanda Dorsey COMMUNICATIONS ADMINISTRATOR Unavailable Jayesh Lara DO Primary Care Provider [phone] Chris Higgins MD Primary Care Provider [phone] Giovanna Buck COMMUNICATIONS ADMINISTRATOR Unavailable [phone] Jayesh Lara DO Unavailable None, Provider Primary Care Provider Unavaila ble Encounter Details Date Type Department Care Team (Late st Contact Info) Description 08/26/2013 Abstract [facility] CONVERSION [address] [place] [address] , Generic Conversion, Social History Tobacco Use [...] Rule Out 07/30/2020 07/30/2020 07/31/2020 10:35 PM MIXER CRANE OPERATOR documented as of this encounter Care Teams Manager Council Relationship Specialty Start Date End Date Aleksandr Blount MD PCP - General 11/02/14 01/31/15 Frieda Wasserman MD PCP - General INTERNAL MEDICINE 08/31/18 02/23/20 Jayesh Lara DO PCP - General INTERNAL MEDICINE 02/24/20 12/12/20 Chris Higgins MD PCP - General HOSPITALIST 12/13/20 01/23/21 None, MD Geena PCP - General 06/24/22 Keiry Rucker NP Consulting Physician Care Home Facility 10/04/18 04/13/19 Yolanda Dorsey NP Nurse Practitioner Nurse Practitioner Family 02/24/20 01/23/21 Giovanna Buck NP Nurse Practitioner NURSE PRACTITIONER 12/13/20 01/23/21 Jayesh Lara DO Consulting Physician INTERNAL MEDICINE 12/13/20 1 documented as of this encounter
--- OUTSIDE RECORDS SUMMARY | 2024-09-21 01:24 | XMS_ITS | Encounter Summary ---
Author Organization [facility] Address [facility] [facility] [place] [address] [place] [address] Care Team Providers Care Channel Lip Wetter Name Role Phone Aleksandr Blount MD Primary Care Provider Antonio elena Encounter Details Date Type Department Care Team (Late st Contact Info) Description 09/07/2013 Abstract [facility] Medical Group Family & Internal Medicine - [place] [address] [place] [address] Sosa Ellis NP Social History [...] Sign Reading Time Taken Comments Blood Pressure 124/68 09/07/2013 3:00 PM MOTION PICTURE SET WORKER Pulse 68 09/07/2013 3:00 PM MOTION PICTURE SET WORKER Temperature - - Respiratory Rate - - Oxygen Saturation - - Inhaled Oxygen Concentration - - Weight 68.5 kg (151 lb) 09/07/2013 3:00 PM MOTION PICTURE SET WORKER Height 167.6 cm (5' 6 ) 09/07/2013 3:00 PM MOTION PICTURE SET WORKER Body Mass Index 24.37 09/07/2013 3:00 PM MOTION PICTURE SET WORKER documented in this encounter Progress Notes * Sosa Ellis NP - 09/07/2013 3:30 PM CST Reason For Visit Senior Care Visit History of Present Illness HPI Free Text: Pt has had infection over the right great toe. Pt has had cellulitis and has had bactroban to the toe until healed. Pt toe is much improved. Pt has alz and is non responsive. Has edema of the bilateral lower extremities. Review of Systems Complete-Female: Constitutional: as noted in HPI. Eyes: negative. ENT: negative. Cardiovascular: negative. Respiratory: negative. Genitourinary: negative. Musculoskeletal: as noted in HPI. as noted in HPI Hematologic and Lymphatic: negative. Social History ?? Marital History - V61.03 ?? Unknown If Ever Smoked Current Meds 1. Aspirin 81 MG Oral Tablet; TAKE 1 TABLET DAILY; Therapy: 10Aug2013 to (Evaluate:05Aug2014) 2. Donepezil HCl 10 MG Oral Tablet; TAKE 1 TABLET BY MOUTH AT BEDTIME; Therapy: 24Mar2013 to (Evaluate:[id number]) 3. Fenofibrate Micronized 134 MG Oral Capsule; TAKE 1 CAPSULE DAILY; Therapy: 93Uew5304 to (Evaluate:[id number]) 4. Lisinopril 5 MG Oral Tablet; TAKE 1 TABLET DAILY; Therapy: 11Mar2013 to (Evaluate:[id number]) 5. Lyrica 150 MG Oral Capsule; Take 1 capsule twice daily; Therapy: 35Gjw2221 to (Evaluate:06Oct2013); Last Rx:[id number] 6. MetFORMIN HCl 500 MG Oral Tablet; TAKE 1 TABLET TWICE DAILY; Therapy: 09Jul2013 to 7. Namenda XR 28 MG Oral Capsule Extended Release 24 Hour; ONE DAILY; Therapy: 73Yqb5843 to (Evaluate:[id number]) 8. NovoFine Autocover 30G X 8 MM Miscellaneous; Therapy: 04Mar2013 to 9. Simvastatin 20 MG Oral Tablet; TAKE ONE TABLET BY MOUTH AT BEDTIME; Therapy: 34Cmi5749 to (Evaluate:79Mps5984) 10. Simvastatin 40 MG Oral Tablet; TAKE 1 TABLET BY MOUTH AT BEDTIME; Therapy: 37Rcf4315 to (Evaluate:35Zkf0203) 11. Sodium Chloride 0.9 % Irrigation Solution; Therapy: 04Aug2013 to 12. Tobramycin Sulfate 0.3 % Ophthalmic Solution; Therapy: 29Jul2013 to 13. Victoza 18 MG/3ML Subcutaneous Solution; INJECT 0.6MG SUBCUTANEOUSLY DAILY; Therapy: 23Mar2013 to Allergies 1. Flagyl CAPS Vitals Vital Signs [Data Includes: Current Encounter] [id number] 03:00PM Temperature 97.6 F Heart Rate 68 Respiration 20 Systolic 124 Diastolic 68 O2 Saturation 98 BMI Calculated 24.27 BSA Calculated 1.78 Height 5 ft 6 in Weight 151 lb Physical Exam Constitutional General appearance: Abnormal. (Pt [...] Abnormal. Mood and Affect: blunted. Assessment 1. Cellulitis 682.9 Plan Plan Free Text: Pt is doing very well. Toe has completely healed. Pt continues to have some edema but all cellulitis and infection is gone. Discontinue the tx. Make sure pt has loosly fitting shoe if wears any. Most of time is wearing stockings. Signatures Electronically signed by : Sosa Ellis NP; Sep 18 2013 10:34PM (Author) ON PICTURE SET WORKER documented in this encounter Plan of Treatment Not on file documented as of this encounter Visit Diagnoses Not on filedocumented in this encounter Care Teams Channel Lip Wetter Relationship Specialty Start Date End Date Aleksandr Blount MD PCP - General 11/02/14 01/31/15 documented as of this encounter
--- OUTSIDE RECORDS SUMMARY | 2024-09-21 01:24 | XMS_ITS | Encounter Summary ---
Author Organization [facility] Address [address] [facility] [place] [address] [place] [address] Care Team Providers Care Regulatory Affairs Intern Name Role Phone Aleksandr Blount MD Primary Care Provider U Frieda Salcedo MD Primary Care Provider Unavailab Keiry Salazar LOCK ASSEMBLER Unavailable [phone] Encounter Details Date Type Department Care Team (Late st Contact Info) Description 09/12/2014 Abstract [facility] [address] [place] [address] Aleksandr Blount MD Social History Tobacco Use [...] as of this encounter Visit Diagnoses Diagnosis Cough documented in this encounter Care Teams Regulatory Affairs Intern Relationship Specialty Start Date End Date Aleksandr Blount MD PCP - General 11/02/14 01/31/15 Frieda Wasserman MD PCP - General INTERNAL MEDICINE 08/31/18 02/23/20 Keiry Rucker NP Consulting Physician Shelter Facility 10/04/18 04/13/19 documented as of this encounter
--- OUTSIDE RECORDS SUMMARY | 2024-09-21 01:24 | XMS_ITS | Encounter Summary ---
Author Organization [facility] Address [address] [facility] [place] [address] [place] [address] Care Team Providers Care Vocational Coordinator Name Role Phone Aleksandr Blount MD Primary Care Provider U kassy Encounter Details Date Type Department Care Team (Latest Contact Info) Description 12/02/2013 Abstract [facility] Medical Group [...] on filedocumented in this encounter Care Teams Vocational Coordinator Relationship Specialty Start Date End Date Aleksandr Blount MD PCP - General 11/02/14 01/31/15 documented as of this encounter
--- OUTSIDE RECORDS SUMMARY | 2024-09-21 01:24 | XMS_ITS | Encounter Summary ---
Author Organization [facility] Address [address] [facility] [place] [address] [place] [address] Care Team Providers Care Cobol Mainframe Developer Name Role Phone Aleksandr Blount MD Primary Care Provider U kassy Encounter Details Date Type Department Care Team (Latest Contact Info) Description 02/27/2014 Abstract [facility] Medical Group Social History Tobacco Use [...] on filedocumented in this encounter Care Teams Cobol Mainframe Developer Relationship Specialty Start Date End Date Aleksandr Blount MD PCP - General 11/02/14 01/31/15 documented as of this encounter
--- OUTSIDE RECORDS SUMMARY | 2024-09-21 01:24 | XMS_ITS | Encounter Summary ---
Author Organization [facility] Address [facility] [facility] [place] [address] [place] [address] Care Team Providers Care Tar Heater Operator Name Role Phone Aleksandr Blount MD Primary Care Provider Antonio elena Encounter Details Date Type Department Care Team (Late st Contact Info) Description 10/11/2014 Abstract [facility] Medical Group Family & Internal Medicine - [place] [address] [place] [address] Sosa Ellis NP Social History [...] Reading Time Taken Comments Blood Pressure 114/60 10/11/2014 4:26 PM DIRECTOR OF CLINICAL EDUCATION Pulse 76 10/11/2014 4:26 PM DIRECTOR OF CLINICAL EDUCATION Temperature - - Respiratory Rate - - Oxygen Saturation - - Inhaled Oxygen Concentration - - Weight 75.5 kg (166 lb 6.1 oz) 10/11/2014 4:26 P M DIRECTOR OF CLINICAL EDUCATION Height - - Body Mass Index 26.85 07/19/2014 1:24 PM CDT documented in this encounter Progress Notes * Sosa Ellis NP - 10/11/2014 3:45 PM CST Reason For Visit Acute Visit Care Home Visit Chief Complaint Chief Complaint Free Text: Acute assisted visit. Buttock. FCS History of Present Illness HPI Free Text: This is a very focused visit requested by the staff. A 74-year-old white female. Patient is in bed most of the time and is incontinent of both bowel and bladder. Patient is able to converse and understand when being talked to but is not able to care for self. Patient has had a recent rash that has occurred over the buttocks and into the labia majora. At this time, the rash appears to be fungal. Staff have been putting on Arnoldo and has had a slight improvement with this treatment. Review of Systems Complete-Female: See HPI for pertinent positives. Constitutional: negative. ENT: negative. Cardiovascular: negative. Respiratory: negative. Gastrointestinal: negative. Genitourinary: as noted in HPI. Musculoskeletal: as noted in HPI. Integumentary as noted in HPI. Neurological As Noted in HPI and confusion. Psychiatric: negative. Active Problems 1. Bruising (924.9) (T14.8) 2. Cellulitis (682.9) (L03.90) 3. Dementia (294.20) (F03.90) 4. Diabetes mellitus (250.00) (E11.9) 5. 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 Generalized multiple sclerosis (340) (G35) [...] Oral Tablet; TAKE 1 TABLET DAILY; Therapy: 37Fmu9349 to (Evaluate:05Aug2014) Recorded 2. Donepezil HCl - [...] TABLET TWICE DAILY; Therapy: 09Jul2013 to (Last Rx:[id number]) Ordered 7. Mupirocin 2 % External Ointment; Therapy: 29Mar2014 to Recorded 8. Namenda XR 28 MG Oral Capsule Extended Release 24 Hour; ONE DAILY; Therapy: 21Jun2013 to (Last Rx:[id number]) Ordered 9. NovoFine Autocover 30G X 8 [...] 0.6MG SUBCUTANEOUSLY DAILY; Therapy: 23Mar2013 to (Last Rx:[id number]) Ordered 14. Victoza 18 MG/3ML Subcutaneous Solution Pen-injector; Therapy: 22Dec2013 to Recorded Allergies 1. Flagyl CAPS Vitals Vital Signs [Data Includes: Current Encounter] Recorded by : Virginia Tolentino at 11Oct2014 04:26PM Temperature 97.3 F Heart Rate 76 Respiration 16 Systolic 114 Diastolic 60 O2 Saturation 98 Weight 166 lb 6 oz BMI Calculated 26.85 BSA Calculated 1.85 Physical Exam Constitutional General [...] is in patches. Patient denies any pain. ) Neurologic Cranial nerves: Cranial nerves 2-12 intact. Psychiatric Orientation to person, place, and time: Abnormal. Patient is disoriented to place and time but not to person. Mood and affect: Normal. Assessment 1. Fungal infection (117.9) (B49) Candidal rash we have tried taking care of. Plan Use nystatin 100,000/mL 3 times a day and Arnoldo PRN. Have staff report any changes in condition, if rash should worsen. Otherwise, we will have routine assisted visits monthly. Signatures Electronically signed by : Sosa Ellis NP; Oct 12 2014 8:39AM DIRECTOR OF CLINICAL EDUCATION (Author) documented in this encounter Plan of Treatment Not on file documented as of this encounter Visit Diagnoses Not on filedocumented in this encounter Care Teams Tar Heater Operator Relationship Specialty Start Date End Date Aleksandr Blount MD PCP - General 11/02/14 01/31/15 documented as of this encounter
--- OUTSIDE RECORDS SUMMARY | 2024-09-21 01:24 | XMS_ITS | Encounter Summary ---
Author Organization [facility] Address [address] [place] [address] [place] [address] Care Team Providers Care Insurance Claims Assistant Name Role Phone Aleksandr Blount MD Primary Care Provider U kassy Encounter Details Date Type Department Care Team (Latest Contact Info) Description 06/30/2013 Abstract [facility] Medical Group Social History Tobacco Use [...] on filedocumented in this encounter Care Teams Insurance Claims Assistant Relationship Specialty Start Date End Date Aleksandr Blount MD PCP - General 11/02/14 01/31/15 documented as of this encounter
--- OUTSIDE RECORDS SUMMARY | 2024-09-21 01:24 | XMS_ITS | Encounter Summary ---
Author Organization [facility] Address Pending sale to [facility] [place] [address] [place] [address] Care Team Providers Care Cannoneer Name Role Phone Aleksandr Blount MD Primary Care Provider Antonio elena Encounter Details Date Type Department Care Team (Late st Contact Info) Description 03/08/2014 Abstract [facility] Medical Group Family & Internal Medicine - [place] [address] [place] [address] Sosa Ellis NP Social History [...] Sign Reading Time Taken Comments Blood Pressure 126/68 03/08/2014 3:08 PM CDT Pulse 72 03/08/2014 3:08 PM CDT Temperature - - Respiratory Rate - - Oxygen Saturation - - Inhaled Oxygen Concentration - - Weight 76.2 kg (168 lb) 03/08/2014 3:08 PM CDT Height 167.6 cm (5' 6 ) 03/08/2014 3:08 PM CDT Body Mass Index 27.12 03/08/2014 3:08 PM CDT documented in this encounter Progress Notes * Sosa Ellis NP - 03/08/2014 3:45 PM CDT Reason For Visit Care Home Visit Chief Complaint Chief Complaint Free Text: Routine monthly NH visit. History of Present Illness HPI Free Text: Pt in bed today but is much more verbal and seems to be more alert and conversive. Pt states sleepswell at night and naps during the day. Pt is being transferred using gabriel lift. Pt has no open areas of the skin at this time. Pt is alert and disoriented to time and place. Pt is incontinent of bowel and bladder. Pt has been eating well with the asst of staff. Pt has not had any falls and the area on the buttocks that was bruised is completely healed at this time. Multiple Sclerosis (Follow-Up): The patient is being [...] BY MOUTH AT BEDTIME; Therapy: 24Mar2013 to (Evaluate:[id number]); Last Rx:[id number] Ordered 3. Fenofibrate 145 MG Oral Tablet; Therapy: 30Nov2013 to Recorded 4. Fenofibrate Micronized 134 MG Oral Capsule; TAKE 1 CAPSULE DAILY; Therapy: 97Gmu3575 to (Evaluate:[id number]); Last Rx:[id number] Ordered 5. Lisinopril 5 MG Oral Tablet; TAKE 1 TABLET DAILY; Therapy: 11Mar2013 to (Evaluate:14Kxe6557); Last Rx:[id number] Ordered 6. Lyrica 150 MG Oral Capsule; Take 1 capsule twice daily; Therapy: 09Ecz6508 to (Evaluate:[id number]); Last Rx:[id number] Ordered 7. MetFORMIN HCl - 500 MG Oral Tablet; TAKE 1 TABLET TWICE DAILY; Therapy: 09Jul2013 to (Last Rx:[id number]) Ordered 8. Namenda XR 28 MG Oral Capsule Extended Release 24 Hour; ONE DAILY; Therapy: 68Sio7888 to (Last Rx:[id number]) Ordered 9. NovoFine Autocover 30G X 8 MM Miscellaneous; Therapy: 04Mar2013 to Recorded 10. Simvastatin 20 MG Oral Tablet; TAKE ONE TABLET BY MOUTH AT BEDTIME; Therapy: 17Nwd0117 to (Evaluate:08May2014); Last Rx:[id number] Ordered 11. Simvastatin 40 MG Oral Tablet; TAKE 1 TABLET BY MOUTH AT BEDTIME; Therapy: 00Nmu0305 to (Evaluate:52Jna7851); Last Rx:[id number] Ordered 12. Sodium Chloride 0.9 % Irrigation Solution; Therapy: 04Aug2013 to Recorded 13. Tobramycin Sulfate 0.3 % SOLN; Therapy: 29Jul2013 to Recorded 14. Victoza 18 MG/3ML SOLN; INJECT 0.6MG SUBCUTANEOUSLY DAILY; Therapy: 23Mar2013 to (Last Rx:[id number]) Ordered Allergies 1. Flagyl CAPS Vitals Vital Signs [Data Includes: Current Encounter] Recorded by : Mary Lara at 08Mar2014 03:08PM Temperature 96.8 F Heart Rate 72 Respiration 16 Systolic 126 Diastolic 68 O2 Saturation 96, RA Height 5 ft 6 in Weight [...] Abnormal. Mood and Affect: blunted. Assessment 1. Hypertension (401.9) (I10) 2. Hyperlipidemia (272.4) (E78.5) 3. Generalized multiple sclerosis (340) (G35) 4. Diabetes mellitus with neurological manifestations, uncontrolled (250.62,357.2) (E11.49) Plan 1. Stop: Fenofibrate Micronized 134 MG Oral Capsule Rx By: Sosa Ellis; Dispense: 90 Days ; #:90 Capsule; Refill: 0; For: Hyperlipidemia; MICHAEL = N; Record; Last Updated By: Mary Lara; 03/08/2014 3:11:18 PM Pt condition is stable at this time. Pt does not need any change to present POC Routine NH visits will cont. monthly. Signatures Electronically signed by : Sosa Ellis NP; Mar 10 2014 10:13PM RIGGING SUPERVISOR (Author) documented in this encounter Plan of Treatment Not on file documented as of this encounter Visit Diagnoses Not on filedocumented in this encounter Care Teams Cannoneer Relationship Specialty Start Date End Date Aleksandr Blount MD PCP - General 11/02/14 01/31/15 documented as of this encounter
--- OUTSIDE RECORDS SUMMARY | 2024-09-21 01:24 | XMS_ITS | Encounter Summary ---
Author Organization [facility] Address [address] [place] [address] [place] [address] Care Team Providers Care Environmental Engineering Intern Name Role Phone Aleksandr Blount MD Primary Care Provider U kassy Encounter Details Date Type Department Care Team (Latest Contact Info) Description 06/24/2013 Abstract [facility] Medical Group Social History Tobacco [...] on filedocumented in this encounter Care Teams Environmental Engineering Intern Relationship Specialty Start Date End Date Aleksandr Blount MD PCP - General 11/02/14 01/31/15 documented as of this encounter
--- OUTSIDE RECORDS SUMMARY | 2024-09-21 01:24 | XMS_ITS | Encounter Summary ---
Author Organization [facility] Address [address] [facility] [place] [address] [place] [address] Care Team Providers Care Bottom Brusher Name Role Phone Aleksandr Blount MD Primary Care Provider U kassy Encounter Details Date Type Department Care Team (Latest Contact Info) Description 09/12/2014 Abstract [facility] Medical [facility] Social History Tobacco Use Types [...] on filedocumented in this encounter Care Teams Bottom Brusher Relationship Specialty Start Date End Date Aleksandr Blount MD PCP - General 11/02/14 01/31/15 documented as of this encounter
--- OUTSIDE RECORDS SUMMARY | 2024-09-21 01:24 | XMS_ITS | Encounter Summary ---
Author Organization [facility] Address [address] [facility] [place] [address] [place] [address] Care Team Providers Care Child Day Care Center Worker Name Role Phone Aleksandr Blount MD Primary Care Provider U kassy Encounter Details Date Type Department Care Team (Latest Contact Info) Description 06/14/2013 Abstract [facility] Medical Group Social History Tobacco [...] filedocumented in this encounter Care Teams Child Day Care Center Worker Relationship Specialty Start Date End Date Aleksandr Blount MD PCP - General 11/02/14 01/31/15 documented as of this encounter
--- OUTSIDE RECORDS SUMMARY | 2024-09-21 01:24 | XMS_ITS | Encounter Summary ---
Author Organization [facility] Address [address] [facility] [place] [address] [place] [address] Care Team Providers Care Airdrop Systems Technician Name Role Phone Aleksandr Blount MD Primary Care Provider U Frieda Salcedo MD Primary Care Provider Unavailab Keiry Salazar KEYBOARD INSTRUMENT TUNER Unavailable [phone] Encounter Details Date Type Department Care Team (Late st Contact Info) Description 05/24/2013 [facility] Emergency Room [address] [place] [address] [place] [address] [id number] Social History Tobacco Use Types Packs/Day Years Used Date Smoking Tobacco: Never Assessed Comments Unknown Sex and Gender Information Value Date Recorded Sex Assigned at Not on file Legal Sex Female 10:25 PM CDT Gender Identity Not on file Sexual Orientation Not on file documented as of this encounter Plan of Treatment Not on file documented as of this encounter Visit Diagnoses Diagnosis Pneumonia due to infectious organism documented in this encounter Care Teams Airdrop Systems Technician Relationship Specialty Start Date End Date Aleksandr Blount MD PCP - General 11/02/14 01/31/15 Frieda Wasserman MD PCP - General INTERNAL MEDICINE 08/31/18 02/23/20 Keiry Rucker NP Consulting Physician Custodial Facility 10/04/18 04/13/19 documented as of this encounter
--- OUTSIDE RECORDS SUMMARY | 2024-09-21 01:24 | XMS_ITS | Encounter Summary ---
Author Organization [facility] Address [address] [facility] [place] [address] [place] [address] Care Team Providers Care Children'S Minister Name Role Phone Aleksandr Blount MD Primary Care Provider Antonio elena Encounter Details Date Type Department Care Team (Late st Contact Info) Description 08/10/2013 Abstract [facility] Medical Group Family & Internal Medicine - [place] [address] [place] [address] Sosa Ellis NP Social History [...] Reading Time Taken Comments Blood Pressure 140/78 08/10/2013 3:18 PM CLINICAL PRODUCT SPECIALIST Pulse 80 08/10/2013 3:18 PM CLINICAL PRODUCT SPECIALIST Temperature - - Respiratory Rate - - Oxygen Saturation - - Inhaled Oxygen Concentration - - Weight 74.8 kg (165 lb) 08/10/2013 3:18 PM CLINICAL PRODUCT SPECIALIST Height 167.6 cm (5' 6 ) 08/10/2013 3:18 PM CLINICAL PRODUCT SPECIALIST Body Mass Index 26.63 08/10/2013 3:18 PM CLINICAL PRODUCT SPECIALIST documented in this encounter Progress Notes * Sosa Ellis NP - 08/10/2013 2:30 PM CST Reason For Visit Fpc Visit History of Present Illness HPI Free Text: Pt has right great toe that is not healing. Still red swollen and no drainage. It is not warm to touch and pt is not having any pain. Review of Systems Complete-Female: Constitutional: as noted in HPI. Eyes: negative. ENT: negative. Cardiovascular: negative. Respiratory: negative. Genitourinary: negative. Musculoskeletal: as noted in HPI. as noted in HPI Hematologic and Lymphatic: negative. Active Problems 1. Open Wound Of The Toe(S), Complicated Right 893.1 medial toe Great toe. Social History ?? Marital History - V61.03 Current Meds 1. Lyrica 150 MG Oral Capsule; Take 1 capsule twice daily; Therapy: 67Frk4388 to (Evaluate:06Oct2013); Last Rx:08Jun2013 Allergies 1. Flagyl CAPS Vitals Vital Signs [Data Includes: Current Encounter] 10Aug2013 03:18PM Temperature 97.3 F Heart Rate 80 Respiration 20 Systolic 140 Diastolic 78 O2 Saturation 99 BMI Calculated 26.52 BSA Calculated 1.85 Height 5 ft 6 in Weight 165 lb Physical Exam Constitutional General appearance: Abnormal. [...] Abnormal. Mood and Affect: blunted. Assessment 1. Open Wound Of The Toe(S), Complicated Right 893.1 2. Insomnia 780.52 3. Diabetes Mellitus 250.00 4. Health Maintenance V70.0 Plan Pt needs referral to Wound Clinic. No other changes at this time. Continue DIONTE and dsg daily. Signatures Electronically signed by : Sosa Ellis NP; Aug 19 2013 7:48PM (Author) ICAL PRODUCT SPECIALIST documented in this encounter Plan of Treatment Not on file documented as of this encounter Visit Diagnoses Not on filedocumented in this encounter Care Teams Children'S Minister Relationship Specialty Start Date End Date Aleksandr Blount MD PCP - General 11/02/14 01/31/15 documented as of this encounter
--- OUTSIDE RECORDS SUMMARY | 2024-09-21 01:24 | XMS_ITS | Encounter Summary ---
Author Organization [facility] Address [address] [facility] [place] [address] [place] [address] Care Team Providers Care Mixing Machine Tender Cork Gasket Name Role Phone Aleksandr Blount MD Primary Care Provider U kassy Encounter Details Date Type Department Care Team (Latest Contact Info) Description 05/18/2013 Abstract [facility] Medical Group [...] on filedocumented in this encounter Care Teams Mixing Machine Tender Cork Gasket Relationship Specialty Start Date End Date Aleksandr Blount MD PCP - General 11/02/14 01/31/15 documented as of this encounter
--- OUTSIDE RECORDS SUMMARY | 2024-09-21 01:24 | XMS_ITS | Encounter Summary ---
Author Organization [facility] Address [facility] [facility] [place] [address] [place] [address] Care Team Providers Care Party Demonstrator Name Role Phone Aleksandr Blount MD Primary Care Provider Antonio elena Encounter Details Date Type Department Care Team (Late st Contact Info) Description 03/15/2014 Abstract [facility] Medical Group Family & Internal Medicine - [place] [address] [place] [address] Sosa Ellis NP Social History [...] Sign Reading Time Taken Comments Blood Pressure 102/56 03/15/2014 3:00 PM CDT Pulse 84 03/15/2014 3:00 PM CDT Temperature - - Respiratory Rate - - Oxygen Saturation - - Inhaled Oxygen Concentration - - Weight 76.3 kg (168 lb 2.1 oz) 03/15/2014 3:00 P M CDT Height 167.6 cm (5' 6 ) 03/15/2014 3:00 PM CDT Body Mass Index 27.14 03/15/2014 3:00 PM CDT documented in this encounter Progress Notes * Sosa Ellis NP - 03/15/2014 2:45 PM CDT Reason For Visit Problem Focused Visit Long Term Visit Chief Complaint Chief Complaint Free Text: Bilateral great toenails infected with drainage. History of Present Illness Pt in bed today but is much [...] bruised is completely healed at this time. HPI Free Text: Pt has a blister on the 3rd toe on the left foot and the bilateral great toenails are infected swollen cuticles with mild amount of drainage. Pt does not complain of pain seems to be doing well today. Have been using DIONTE on the areas. Multiple Sclerosis (Follow-Up): The patient is being [...] BY MOUTH AT BEDTIME; Therapy: 24Mar2013 to (Evaluate:16Xow4557); Last Rx:[id number] Ordered 3. Fenofibrate 145 MG Oral Tablet; Therapy: 30Nov2013 to Recorded 4. Lisinopril 5 MG Oral Tablet; TAKE 1 TABLET DAILY; Therapy: 11Mar2013 to (Evaluate:94Qse8218); Last Rx:[id number] Ordered 5. Lyrica 150 MG Oral Capsule; Take 1 capsule twice daily; Therapy: 16Dmj3404 to (Evaluate:07Cxo6812); Last Rx:[id number] Ordered 6. MetFORMIN HCl - 500 MG Oral Tablet; TAKE 1 TABLET TWICE DAILY; Therapy: 09Jul2013 to (Last Rx:[id number]) Ordered 7. Namenda XR 28 MG Oral Capsule Extended Release 24 Hour; ONE DAILY; Therapy: 46Pub2217 to (Last Rx:[id number]) Ordered 8. NovoFine Autocover 30G X 8 MM Miscellaneous; Therapy: 04Mar2013 to Recorded 9. Simvastatin 20 MG Oral Tablet; TAKE ONE TABLET BY MOUTH AT BEDTIME; Therapy: 97Sui6318 to (Evaluate:08May2014); Last Rx:[id number] Ordered 10. Simvastatin 40 MG Oral Tablet; TAKE 1 TABLET BY MOUTH AT BEDTIME; Therapy: 42Ctm6323 to (Evaluate:07Feb2014); Last Rx:[id number] Ordered 11. Sodium Chloride 0.9 % Irrigation Solution; Therapy: 04Aug2013 to Recorded 12. Tobramycin Sulfate 0.3 % SOLN; Therapy: 29Jul2013 to Recorded 13. Victoza 18 MG/3ML SOLN; INJECT 0.6MG SUBCUTANEOUSLY DAILY; Therapy: 23Mar2013 to (Last Rx:[id number]) Ordered Allergies 1. Flagyl CAPS Vitals Vital Signs [Data Includes: Current Encounter] Recorded by : Mary Lara at 15Mar2014 03:00PM Temperature 95.4 F Heart Rate 84 Respiration 16 Systolic 102 Diastolic 56 O2 Saturation 96, RA Height 5 ft 6 in Weight 168 lb 2 oz BMI Calculated 27.14 BSA Calculated 1.86 Physical Exam Constitutional General [...] Abnormal. Mood and Affect: blunted. Assessment 1. Ingrowing nail with infection (703.0) (L60.0) 2. Hyperlipidemia (272.4) (E78.5) 3. Hypertension (401.9) (I10) 4. 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 Cellulitis (682.9) (L03.90) Plan 1. Stop: Simvastatin 20 MG Oral Tablet Rx By: Sosa Ellis; Dispense: 90 Days ; #:90 Tablet; Refill: 1; For: Hyperlipidemia; MICHAEL = N; Record; Last Updated By: Mary Lara; 03/15/2014 3:04:29 PM Pt condition is stable at this time. The toenails are having cellulitis around the toenail following nail clipping from the respiratory medicine physician. Will change the treatment from DIONTE to Bactroban 2% to the area BID until healed. Routine NH visits will cont. monthly. Signatures Electronically signed by : Sosa Ellis NP; Mar 19 2014 8:20PM SCREWHEAD STONER AND POLISHER (Author) documented in this encounter Plan of Treatment Not on file documented as of this encounter Visit Diagnoses Not on filedocumented in this encounter Care Teams Party Demonstrator Relationship Specialty Start Date End Date Aleksandr Blount MD PCP - General 11/02/14 01/31/15 documented as of this encounter
--- OUTSIDE RECORDS SUMMARY | 2024-09-21 01:24 | XMS_ITS | Encounter Summary ---
Author Organization [facility] Address [address] [place] [address] [place] [address] Care Team Providers Care Location Worker Name Role Phone Aleksandr Blount MD Primary Care Provider Antonio elena Encounter Details Date Type Department Care Team (Latest Contact Info) Description 06/03/2013 Abstract [facility] [place] [address] [address] [address] Social History Tobacco Use Types [...] on filedocumented in this encounter Care Teams Location Worker Relationship Specialty Start Date End Date Aleksandr Blount MD PCP - General 11/02/14 01/31/15 documented as of this encounter
--- OUTSIDE RECORDS SUMMARY | 2024-09-21 01:24 | XMS_ITS | Encounter Summary ---
Author Organization [facility] Address [address] [place] [address] [place] [address] Care Team Providers Care Occup Ther Name Role Phone Aleksandr Blount MD Primary Care Provider U kassy Encounter Details Date Type Department Care Team (Latest Contact Info) Description 03/30/2013 Abstract [facility] Medical Group Social [...] on filedocumented in this encounter Care Teams Occup Ther Relationship Specialty Start Date End Date Aleksandr Blount MD PCP - General 11/02/14 01/31/15 documented as of this encounter
--- OUTSIDE RECORDS SUMMARY | 2024-09-21 01:24 | XMS_ITS | Encounter Summary ---
Author Organization [facility] Address [address] [facility] [place] [address] [place] [address] Care Team Providers Care Lead C Developer Name Role Phone Aleksandr Blount MD Primary Care Provider U Frieda Salcedo MD Primary Care Provider Unavailab Keiry Salazar DIESEL PILE HAMMER OPERATOR Unavailable [phone] Encounter Details Date Type Department Care Team (Late st Contact Info) Description 05/24/2013 [facility] [address] [place], [place] [id number] Brian Desir MD [address] [place] [address] Social History Tobacco Use Types Packs/Day [...] organism documented in this encounter Care Teams Lead C Developer Relationship Specialty Start Date End Date Aleksandr Blount MD PCP - General 11/02/14 01/31/15 Frieda Wasserman MD PCP - General INTERNAL MEDICINE 08/31/18 02/23/20 Keiry Rucker NP Consulting Physician [facility] 10/04/18 04/13/19 documented as of this encounter
--- OUTSIDE RECORDS SUMMARY | 2024-09-21 01:24 | XMS_ITS | Encounter Summary ---
Author Organization [facility] Address [address] [facility] [place] [address] [place] [address] Care Team Providers Care Hotel Lobby Concierge Name Role Phone Aleksandr Blount MD Primary Care Provider Antonio elena Encounter Details Date Type Department Care Team (Latest Contact Info) Description 07/05/2013 Abstract [facility] [place] [address] [address] [address] Social History Tobacco Use Types [...] on filedocumented in this encounter Care Teams Hotel Lobby Concierge Relationship Specialty Start Date End Date Aleksandr Blount MD PCP - General 11/02/14 01/31/15 documented as of this encounter
--- OUTSIDE RECORDS SUMMARY | 2024-09-21 01:24 | XMS_ITS | Encounter Summary ---
Author Organization [facility] Address [address] [facility] [place] [address] [place] [address] Care Team Providers Care Paper Folder Name Role Phone Aleksandr Blount MD Primary Care Provider U kassy Encounter Details Date Type Department Care Team (Latest Contact Info) Description 04/29/2013 Abstract [facility] Medical Group Social History Tobacco [...] on filedocumented in this encounter Care Teams Paper Folder Relationship Specialty Start Date End Date Aleksandr Blount MD PCP - General 11/02/14 01/31/15 documented as of this encounter
--- OUTSIDE RECORDS SUMMARY | 2024-09-21 01:24 | XMS_ITS | Encounter Summary ---
Author Organization [facility] Address [address] [facility] [place] [address] [place] [address] Care Team Providers Care Cosmetologist Apprentice Name Role Phone Aleksandr Blount MD Primary Care Provider Antonio elena Encounter Details Date Type Department Care Team (Late st Contact Info) Description 07/19/[address] [facility] Medical Group Family & Internal Medicine - [place] [address] [place] [address] Sosa Ellis NP Social History [...] Sign Reading Time Taken Comments Blood Pressure 110/56 07/19/2014 1:24 PM CDT Pulse 88 07/19/2014 1:24 PM CDT Temperature - - Respiratory Rate - - Oxygen Saturation - - Inhaled Oxygen Concentration - - Weight 76 kg (167 lb 8 oz) 07/19/2014 1:24 PM CD T Height 167.6 cm (5' 6 ) 07/19/2014 1:24 PM CDT Body Mass Index 27.04 07/19/2014 1:24 PM CDT documented in this encounter Progress Notes * Sosa Ellis NP - 07/19/2014 1:45 PM CDT Reason For Visit Longterm Visit Chief Complaint Chief Complaint Free Text: Routine Longterm Visit. FCS History of Present Illness Multiple [...] TABLET TWICE DAILY; Therapy: 09Jul2013 to (Last Rx:[id number]) Ordered 7. Mupirocin 2 % External Ointment; Therapy: 29Mar2014 to Recorded 8. Namenda XR 28 MG Oral Capsule Extended Release 24 Hour; ONE DAILY; Therapy: 89Uke3272 to (Last Rx:[id number]) Ordered 9. NovoFine Autocover 30G X 8 [...] 0.6MG SUBCUTANEOUSLY DAILY; Therapy: 23Mar2013 to (Last Rx:[id number]) Ordered 14. Victoza 18 MG/3ML Subcutaneous Solution Pen-injector; Therapy: 22Dec2013 to Recorded Allergies 1. Flagyl CAPS Vitals Vital Signs [Data Includes: Current Encounter] Recorded by : Virginia Tolentino at 19Jul2014 01:24PM Temperature 96 F Heart Rate 88 Respiration 20 Systolic 110 Diastolic 56 O2 Saturation 98, RA Height 5 ft 6 in Weight 167 lb 8 oz BMI Calculated 27.04 BSA Calculated 1.85 Physical Exam Constitutional General appearance: Abnormal. (Pt [...] Abnormal. Mood and Affect: blunted. Assessment 1. Impaired weight bearing (V49.89) (Z91.89) 2. 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 Mild vitamin D deficiency (268.9) (E55.9) 4. Hypertension (401.9) (I10) 5. Hyperlipidemia (272.4) (E78.5) Plan Pt condition is stable at this time. Pt does not need any change to present POC Routine NH visits will cont. monthly. Signatures Electronically signed by : Sosa Ellis NP; Jul 21 2014 10:17PM AIRCRAFT SYSTEMS TECHNICIAN (Author) documented in this encounter Plan of Treatment Not on file documented as of this encounter Visit Diagnoses Not on filedocumented in this encounter Care Teams Cosmetologist Apprentice Relationship Specialty Start Date End Date Aleksandr Blount MD PCP - General 11/02/14 01/31/15 documented as of this encounter
--- OUTSIDE RECORDS SUMMARY | 2024-09-21 01:24 | XMS_ITS | Encounter Summary ---
Author Organization [facility] Address [address] [facility] [place] [address] [place] [address] Care Team Providers Care District Fire Chief Name Role Phone Aleksandr Blount MD Primary Care Provider U kassy Encounter Details Date Type Department Care Team (Latest Contact Info) Description 06/15/2014 Abstract [facility] Medical Group Sosa Ellis, WOOD WEB WEAVING MACHINE OPERATOR Social History Tobacco Use Types [...] on filedocumented in this encounter Care Teams District Fire Chief Relationship Specialty Start Date End Date Aleksandr Blount MD PCP - General 11/02/14 01/31/15 documented as of this encounter
--- OUTSIDE RECORDS SUMMARY | 2024-09-21 01:24 | XMS_ITS | Encounter Summary ---
Author Organization [facility] Address [facility] [facility] [place] [address] [place] [address] Care Team Providers Care Community Engagement Coordinator Name Role Phone Aleksandr Blount MD Primary Care Provider Antonio elena Encounter Details Date Type Department Care Team (Late st Contact Info) Description 09/26/2014 Abstract [facility] Medical Group Family & Internal Medicine - [place] [address] [place] [address] Sosa Ellis NP Social History [...] Reading Time Taken Comments Blood Pressure 138/82 09/26/2014 2:08 PM BLACK OXIDE COATING EQUIPMENT TENDER Pulse 92 09/26/2014 2:08 PM BLACK OXIDE COATING EQUIPMENT TENDER Temperature - - Respiratory Rate - - Oxygen Saturation - - Inhaled Oxygen Concentration - - Weight 76.4 kg (168 lb 8 oz) 09/26/2014 2:08 PM BLACK OXIDE COATING EQUIPMENT TENDER Height - - Body Mass Index 27.2 07/19/2014 1:24 PM CDT documented in this encounter Progress Notes * Sosa Ellis NP - 09/26/2014 2:15 PM CST Reason For Visit Fpc Visit Chief Complaint Chief Complaint Free Text: Routine alf visit. FCS History of Present Illness HPI Free Text: Pt generally more alert today taking and making conversation. Pt was in bed trying to nap. pt is transferred with use of the gabriel lift. Multiple Sclerosis (Follow-Up): The patient is being [...] Capsule; Take 1 capsule twice daily; Therapy: 70Euc5694 to (Evaluate:18Oct2014) Recorded 6. MetFORMIN HCl - 500 MG Oral Tablet; TAKE 1 TABLET TWICE DAILY; Therapy: 09Jul2013 to (Last Rx:[id number]) Ordered 7. Mupirocin 2 % External Ointment; Therapy: 32Sfp1370 to Recorded 8. Namenda XR 28 MG Oral Capsule Extended Release 24 Hour; ONE DAILY; Therapy: 60Luf1616 to (Last Rx:[id number]) Ordered 9. NovoFine Autocover 30G X 8 MM Miscellaneous; Therapy: 04Mar2013 to Recorded 10. Simvastatin 40 MG Oral Tablet; TAKE 1 TABLET BY MOUTH AT BEDTIME; Therapy: 66Ffw5444 to (Evaluate:15Aug2014) Recorded 11. Sodium Chloride 0.9 % Irrigation Solution; Therapy: 04Aug2013 to Recorded 12. Tobramycin Sulfate 0.3 % SOLN; Therapy: 29Jul2013 to Recorded 13. Victoza 18 MG/3ML SOLN; INJECT 0.6MG SUBCUTANEOUSLY DAILY; Therapy: 23Mar2013 to (Last Rx:[id number]) Ordered 14. Victoza 18 MG/3ML Subcutaneous Solution Pen-injector; Therapy: 22Dec2013 to Recorded 15. Azithromycin 250 MG Oral Tablet; Therapy: 13Sep2014 to Recorded 16. Permethrin 5 % External Cream; Therapy: 22Jul2014 to Recorded 17. Tamiflu 75 MG Oral Capsule; Therapy: 13Sep2014 to Recorded Allergies 1. Flagyl CAPS Vitals Vital Signs [Data Includes: Current Encounter] Recorded by : Virginia Tolentino at 74Hqy5223 02:08PM Temperature 96.8 F Heart Rate 92 Respiration 20 Systolic 138 Diastolic 82 Weight 168 lb 8 oz BMI Calculated 27.2 BSA Calculated 1.86 Physical Exam Constitutional General [...] Abnormal. Mood and Affect: blunted. Assessment 1. Generalized multiple sclerosis (340) (G35) 2. 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 Impaired weight bearing (V49.89) (Z91.89) 4. Mild vitamin D deficiency (268.9) (E55.9) 5. Hypertension (401.9) (I10) 6. Hyperlipidemia (272.4) (E78.5) Plan Pt condition is stable at this time. Pt does not need any change to present POC Routine NH visits will cont. monthly. Signatures Electronically signed by : Sosa Ellis NP; Sep 26 2014 9:40PM BLACK OXIDE COATING EQUIPMENT TENDER (Author) documented in this encounter Plan of Treatment Not on file documented as of this encounter Visit Diagnoses Not on filedocumented in this encounter Care Teams Community Engagement Coordinator Relationship Specialty Start Date End Date Aleksandr Blount MD PCP - General 11/02/14 01/31/15 documented as of this encounter
--- OUTSIDE RECORDS SUMMARY | 2024-09-21 01:24 | XMS_ITS | Encounter Summary ---
Author Organization [facility] Address [address] [facility] [place] [address] [place] [address] Care Team Providers Care Felt Strip Finisher Name Role Phone Aleksandr Blount MD Primary Care Provider U kassy Encounter Details Date Type Department Care Team (Latest Contact Info) Description 07/03/2014 Abstract [facility] Medical Group Sosa Ellis, DIRECTOR OF SCOUT WORK Social History Tobacco Use Types Packs/Day Years [...] on filedocumented in this encounter Care Teams Felt Strip Finisher Relationship Specialty Start Date End Date Aleksandr Blount MD PCP - General 11/02/14 01/31/15 documented as of this encounter
--- OUTSIDE RECORDS SUMMARY | 2024-09-21 01:24 | XMS_ITS | Encounter Summary ---
Author Organization [facility] Address [address] [facility] [place] [address] [place] [address] Care Team Providers Care Inspector Balance Wheel Motion Name Role Phone Aleksandr Blount MD Primary Care Provider U kassy Encounter Details Date Type Department Care Team (Latest Contact Info) Description 05/24/2013 Abstract [facility] Medical Group Social History Tobacco [...] on filedocumented in this encounter Care Teams Inspector Balance Wheel Motion Relationship Specialty Start Date End Date Aleksandr Blount MD PCP - General 11/02/14 01/31/15 documented as of this encounter
--- OUTSIDE RECORDS SUMMARY | 2024-09-21 01:24 | XMS_ITS | Encounter Summary ---
Author Organization [facility] Address [address] [place] [address] [place] [address] Care Team Providers Care Field Health Officer Name Role Phone Aleksandr Blount MD Primary Care Provider Antonio elena Encounter Details Date Type Department Care Team (Late st Contact Info) Description 05/17/2014 Abstract [facility] Medical Group Family & Internal Medicine - [place] [address] [place] [address] Sosa Ellis NP Social History [...] Reading Time Taken Comments Blood Pressure 118/72 05/17/2014 2:46 PM CDT Pulse 72 05/17/2014 2:46 PM CDT Temperature - - Respiratory Rate - - Oxygen Saturation - - Inhaled Oxygen Concentration - - Weight 77.2 kg (170 lb 2.1 oz) 05/17/2014 2:46 P M CDT Height 167.6 cm (5' 6 ) 05/17/2014 2:46 PM CDT Body Mass Index 27.46 05/17/2014 2:46 PM CDT documented in this encounter Progress Notes * Sosa Ellis NP - 05/17/2014 1:45 PM CDT Reason For Visit Mcfp Visit Chief Complaint Chief Complaint Free Text: Routine mcfp visit History of Present Illness HPI Free Text: SEE SCANNED IN NOTE Active Problems 1. Bruising (924.9) (T14.8) 2. [...] Capsule; Take 1 capsule twice daily; Therapy: 66Ctw3592 to (Evaluate:60Qjc7988); Last Rx:[id number] Ordered 6. MetFORMIN HCl - 500 MG Oral Tablet; TAKE 1 TABLET TWICE DAILY; Therapy: 90Xqt8854 to (Last Rx:[id number]) Ordered 7. Namenda XR 28 MG Oral Capsule Extended Release 24 Hour; ONE DAILY; Therapy: 78Mwu8880 to (Last Rx:[id number]) Ordered 8. NovoFine Autocover 30G X 8 MM Miscellaneous; Therapy: 04Mar2013 to Recorded 9. Simvastatin 40 MG Oral Tablet; TAKE 1 TABLET BY MOUTH AT BEDTIME; Therapy: 71Stc9469 to (Evaluate:15Aug2014) Recorded 10. Sodium Chloride 0.9 % Irrigation Solution; Therapy: 04Aug2013 to Recorded 11. Tobramycin Sulfate 0.3 % SOLN; Therapy: 29Jul2013 to Recorded 12. Victoza 18 MG/3ML SOLN; INJECT 0.6MG SUBCUTANEOUSLY DAILY; Therapy: 23Mar2013 to (Last Rx:[id number]) Ordered Allergies 1. Flagyl CAPS Vitals Vital Signs [Data Includes: Current Encounter] Recorded by : Virginia Tolentino at 23Yfg2849 02:46PM Temperature 96.4 F Heart Rate 72 Respiration 16 Systolic 118 Diastolic 72 O2 Saturation 98, RA Height 5 ft 6 in Weight 170 lb 2 oz BMI Calculated 27.46 BSA Calculated 1.87 Assessment 1. Hypertension (401.9) (I10) 2. Generalized multiple sclerosis (340) (G35) 3. 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 Dementia (294.20) (F03.90) 5. Impaired weight bearing (V49.89) (Z91.89) Signatures Electronically signed by : Sosa Ellis NP; May 25 2014 1:12PM CHAPLAIN (Author) documented in this encounter Plan of Treatment Not on file documented as of this encounter Visit Diagnoses Not on filedocumented in this encounter Care Teams Field Health Officer Relationship Specialty Start Date End Date Aleksandr Blount MD PCP - General 11/02/14 01/31/15 documented as of this encounter
--- OUTSIDE RECORDS SUMMARY | 2024-09-21 01:24 | XMS_ITS | Encounter Summary ---
Author Organization [facility] Address [address] [facility] [place] [address] [place] [address] Care Team Providers Care Vacuum Kettle Cook Name Role Phone Aleksandr Blount MD Primary Care Provider U kassy Encounter Details Date Type Department Care Team (Latest Contact Info) Description 07/07/2013 Abstract [facility] Medical Group Social History Tobacco Use [...] on filedocumented in this encounter Care Teams Vacuum Kettle Cook Relationship Specialty Start Date End Date Aleksandr Blount MD PCP - General 11/02/14 01/31/15 documented as of this encounter
--- OUTSIDE RECORDS SUMMARY | 2024-09-21 01:24 | XMS_ITS | Encounter Summary ---
Author Organization [facility] Address [address] [place] [address] [place] [address] Care Team Providers Care Turpentiner Name Role Phone Aleksandr Blount MD Primary Care Provider U kassy Encounter Details Date Type Department Care Team (Latest Contact Info) Description 06/25/2013 Abstract [facility] Medical Group Aleksandr Blount MD Social [...] on filedocumented in this encounter Care Teams Turpentiner Relationship Specialty Start Date End Date Aleksandr Blount MD PCP - General 11/02/14 01/31/15 documented as of this encounter
--- OUTSIDE RECORDS SUMMARY | 2024-09-21 01:24 | XMS_ITS | Encounter Summary ---
Author [facility] Address [address] [facility] [place] [address] [place] [address] Care Team Providers Care Event Manager Name Role Phone Aleksandr Blount MD Primary Care Provider U kassy Encounter Details Date Type Department Care Team (Latest Contact Info) Description 05/05/[address] [facility] Medical Group Social History Tobacco Use Types [...] on filedocumented in this encounter Care Teams Event Manager Relationship Specialty Start Date End Date Aleksandr Blount MD PCP - General 11/02/14 01/31/15 documented as of this encounter
--- OUTSIDE RECORDS SUMMARY | 2024-09-21 01:24 | XMS_ITS | Encounter Summary ---
Author Organization [facility] Address [facility] [facility] [place] [address] [place] [address] Care Team Providers Care Android Architect Name Role Phone Aleksandr Blount MD Primary Care Provider Antonio elena Encounter Details Date Type Department Care Team (Late st Contact Info) Description 08/03/2013 Abstract [facility] Medical Group Family & Internal Medicine - [place] [address] [place] [address] Sosa Ellis NP Social History [...] Sign Reading Time Taken Comments Blood Pressure 130/72 08/03/2013 2:46 PM CONDEMNATION ENGINEER Pulse 68 08/03/2013 2:46 PM CONDEMNATION ENGINEER Temperature - - Respiratory Rate - - Oxygen Saturation - - Inhaled Oxygen Concentration - - Weight 74.8 kg (165 lb) 08/03/2013 2:46 PM CONDEMNATION ENGINEER Height 167.6 cm (5' 6 ) 08/03/2013 2:46 PM CONDEMNATION ENGINEER Body Mass Index 26.63 08/03/2013 2:46 PM CONDEMNATION ENGINEER documented in this encounter Progress Notes * Sosa Ellis NP - 08/03/2013 1:30 PM CST Reason For Visit Fdc Visit Chief Complaint Chief Complaint Free Text: toe has split Right great toe History of Present Illness HPI Free Text: 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 Originally the right great toe was reported to Dr. Bermudez as having necortic or dark corners on each side of the nail with redness. Dr. Bermudez had wanted pt sent to the [facility] for evaluation of possible amputation of the toe. Staff asked this PCP if would evaluate the toe. Pt is not having increased pain from the toe. Pt has dementia and hashad stroke affecting pt ability to respond. Pt is dependant on staff for transfers, unable to weight bear. Pt has hx of MS and hyperlipidemia. Pt has signs of advanced dementa. Has periods of restlessness. Pt could have had the toe injured but there was no incident that had caused the change. Todaywhen this PCP evaluated the toe there was no discoloration at the nail. The toe does appear slightly swollen with small slit from the proximal to distal nail on the lateral aspect of the great toe. Pt does not respond to palpation of the toe as if painful. It is not warm to touch and does not have discharge at this time. Review of Systems Complete-Female: Constitutional: as noted in HPI. Eyes: negative. ENT: negative. Cardiovascular: negative. Respiratory: negative. Genitourinary: negative. Musculoskeletal: as noted in HPI. as noted in HPI Hematologic and Lymphatic: negative. Current Meds 1. Lyrica 150 MG Oral Capsule; Take 1 capsule twice daily; Therapy: 78Dmd7362 to (Evaluate:06Oct2013); Last Rx:08Jun2013 Vitals Vital Signs [Data Includes: Current Encounter] 03Aug2013 02:46PM Temperature 96.4 F Heart Rate 68 Respiration 18 Systolic 130 Diastolic 72 O2 Saturation 98 BMI Calculated 26.52 BSA Calculated 1.85 Height [...] Mood and Affect: blunted. Assessment 1. Generalized Multiple Sclerosis 340 2. Dementia 294.20 3. Hyperlipidemia 272.4 4. Hypertension 401.9 5. Cellulitis 682.9 Plan Plan Free Text: Pt has cellulitis. 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 Pt circulation to lower extremity is palplible. Bactroban oint to be used BID D/c the Lovaza at this time to see if diarrhea will be reduced. Pt is on Metformin and Vyctoza as well but would first try to stop diarrhea with use of the lovaza. Will evaluate pt cont. in couple weeks and if not any improvement at that time will refer to the Wound care clinic. Routine NH visit monthly. Signatures Electronically signed by : Sosa Ellis NP; Aug 18 2013 5:00PM (Author) EMNATION ENGINEER documented in this encounter Plan of Treatment Not on file documented as of this encounter Visit Diagnoses Not on filedocumented in this encounter Care Teams Android Architect Relationship Specialty Start Date End Date Aleksandr Blount MD PCP - General 11/02/14 01/31/15 documented as of this encounter
--- OUTSIDE RECORDS SUMMARY | 2024-09-21 01:24 | XMS_ITS | Encounter Summary ---
Author Organization [facility] Address [facility] [facility] [address] [place] [address] Care Team Providers Care Deck Worker Name Role Phone Aleksandr Blount MD Primary Care Provider Antonio elena Encounter Details Date Type Department Care Team (Late st Contact Info) Description 10/05/2013 Abstract [facility] Medical Group Family & Internal Medicine - [place] [address] [place] [address] [place] [address] [address] Social History Tobacco Use Types [...] Reading Time Taken Comments Blood Pressure 124/68 10/13/2013 1:41 PM FINISHER CARD TENDER Pulse 68 10/13/2013 1:41 PM FINISHER CARD TENDER Temperature - - Respiratory Rate - - Oxygen Saturation - - Inhaled Oxygen Concentration - - Weight 75.8 kg (167 lb 3.2 oz) 10/13/2013 1:41 P M FINISHER CARD TENDER Height 167.6 cm (5' 6 ) 10/13/2013 1:41 PM FINISHER CARD TENDER Body Mass Index 26.99 10/13/2013 1:41 PM FINISHER CARD TENDER documented in this encounter Progress Notes * Yoan Bermudez MD - 10/05/2013 8:30 AM CST History of Present Illness HPI Free Text: No complaints. No behavior problems per staff. Sleeps well. Appetite OK. Review of Systems Complete-Female: Cardiovascular: no chest pain. Respiratory: no shortness of breath. Active Problems 1. Cellulitis 682.9 2. Dementia 294.20 3. Diabetes Mellitus 250.00 4. Generalized Multiple Sclerosis 340 5. Hyperlipidemia 272.4 6. Hypertension 401.9 7. Insomnia 780.52 8. Open Wound Of The Toe(S), Complicated Right 893.1 medial toe Great toe. Social History ?? Marital History - V61.03 ?? Unknown If Ever Smoked Current Meds 1. Aspirin 81 MG Oral Tablet; TAKE 1 TABLET DAILY; Therapy: 10Aug2013 to (Evaluate:05Aug2014) 2. Donepezil HCl 10 MG Oral Tablet; TAKE 1 TABLET BY MOUTH AT BEDTIME; Therapy: 24Mar2013 to (Evaluate:87Sdg6250) 3. Fenofibrate Micronized 134 MG Oral Capsule; TAKE 1 CAPSULE DAILY; Therapy: 52Nug2492 to (Evaluate:26Aug2013) 4. Lisinopril 5 MG Oral Tablet; TAKE 1 TABLET DAILY; Therapy: 11Mar2013 to (Evaluate:62Nlt6553) 5. Lyrica 150 MG Oral Capsule; Take 1 capsule twice daily; Therapy: 74Rbd5148 to (Evaluate:06Oct2013); Last Rx:[id number] 6. MetFORMIN HCl 500 MG Oral Tablet; TAKE 1 TABLET TWICE DAILY; Therapy: 09Jul2013 to 7. Namenda XR 28 MG Oral Capsule Extended Release 24 Hour; ONE DAILY; Therapy: 78Ixt4485 to (Evaluate:88Qwv1341) 8. NovoFine Autocover 30G X 8 MM Miscellaneous; Therapy: 04Mar2013 to 9. Simvastatin 20 MG Oral Tablet; TAKE ONE TABLET BY MOUTH AT BEDTIME; Therapy: 54Dyg5277 to (Evaluate:39Trz4522) 10. Simvastatin 40 MG Oral Tablet; TAKE 1 TABLET BY MOUTH AT BEDTIME; Therapy: 20Xhs1145 to (Evaluate:27Jun2013) 11. Sodium Chloride 0.9 % Irrigation Solution; Therapy: 04Aug2013 to 12. Tobramycin Sulfate 0.3 % Ophthalmic Solution; Therapy: 29Jul2013 to 13. Victoza 18 MG/3ML Subcutaneous Solution; INJECT 0.6MG SUBCUTANEOUSLY DAILY; Therapy: 23Mar2013 to Allergies 1. Flagyl CAPS Vitals Vital Signs [Data Includes: Current Encounter] 13Oct2013 01:41PM Temperature 97.6 F Heart Rate 68 Respiration 20 Systolic 124 Diastolic 68 BMI Calculated 26.87 BSA Calculated 1.86 Height 5 ft 6 in Weight 167 lb 3.2 oz Physical Exam Pulmonary Auscultation of lungs: Abnormal. No rales or crackles were heard in the right lung, rales/crackles over the left base and fine. Cardiovascular Auscultation of heart: Normal rate and rhythm, normal S1 and S2, without murmurs. Examination of extremities for edema and/or varicosities: Normal. Assessment 1. Dementia 294.20 2. Generalized Multiple Sclerosis 340 3. Hypertension 401.9 4. Insomnia 780.52 5. Diabetes Mellitus 250.00 Plan same meds, labs and follow up in 2 months Signatures Electronically signed by : Yoan Bermudez M.D.; Oct 25 2013 6:04AM (Author) SHER CARD TENDER documented in this encounter Plan of Treatment Not on file documented as of this encounter Visit Diagnoses Not on filedocumented in this encounter Care Teams Deck Worker Relationship Specialty Start Date End Date Aleksandr Blount MD PCP - General 11/02/14 01/31/15 documented as of this encounter
--- OUTSIDE RECORDS SUMMARY | 2024-09-21 01:24 | XMS_ITS | Encounter Summary ---
Author Organization [facility] Address [address] [facility] [place] [address] [place] [address] Care Team Providers Care Flat Bed Knitter Name Role Phone Aleksandr Blount MD Primary Care Provider Antonio elena Encounter Details Date Type Department Care Team (Latest Contact Info) Description 05/28/2013 Abstract [facility] [place] [address] [address] [address] Social History Tobacco Use Types [...] on filedocumented in this encounter Care Teams Flat Bed Knitter Relationship Specialty Start Date End Date Aleksandr Blount MD PCP - General 11/02/14 01/31/15 documented as of this encounter
--- OUTSIDE RECORDS SUMMARY | 2024-09-21 01:24 | XMS_ITS | Encounter Summary ---
Author Organization [facility] Address [address] [place] [address] [place] [address] Care Team Providers Care Flight Physician Name Role Phone Aleksandr Blount MD Primary Care Provider U kassy Encounter Details Date Type Department Care Team (Latest Contact Info) Description 05/09/2013 Abstract [facility] Medical Group [...] on filedocumented in this encounter Care Teams Flight Physician Relationship Specialty Start Date End Date Aleksandr Blount MD PCP - General 11/02/14 01/31/15 documented as of this encounter
--- OUTSIDE RECORDS SUMMARY | 2024-09-21 01:24 | XMS_ITS | Encounter Summary ---
Author Organization [facility] Address [address] [place] [address] [place] [address] Care Team Providers Care Computer Teacher Name Role Phone Aleksandr Blount MD Primary Care Provider U kassy Encounter Details Date Type Department Care Team (Latest Contact Info) Description 03/03/2013 Abstract [facility] Medical Group Social History Tobacco Use Types [...] filedocumented in this encounter Care Teams Computer Teacher Relationship Specialty Start Date End Date Aleksandr Blount MD PCP - General 11/02/14 01/31/15 documented as of this encounter
--- OUTSIDE RECORDS SUMMARY | 2024-09-21 01:24 | XMS_ITS | Encounter Summary ---
Author Organization [facility] Address [address] [facility] [place] [address] [place] [address] Care Team Providers Care Commissary Representative Name Role Phone Aleksandr Blount MD Primary Care Provider Antonio elena Encounter Details Date Type Department Care Team (Latest Contact Info) Description 03/28/2014 Abstract [facility] [place] [address] [address] [address] Social History Tobacco Use Types [...] on filedocumented in this encounter Care Teams Commissary Representative Relationship Specialty Start Date End Date Aleksandr Blount MD PCP - General 11/02/14 01/31/15 documented as of this encounter
--- OUTSIDE RECORDS SUMMARY | 2024-09-21 01:25 | XMS_ITS | Encounter Summary ---
Author Organization [facility] Address [address] [facility] [place] [address] [place] [address] Care Team Providers Care Qc Scientist Name Role Phone Aleksandr Blount MD Primary Care Provider U kassy Encounter Details Date Type Department Care Team (Latest Contact Info) Description 05/17/2012 Abstract [facility] Medical Group Social [...] on filedocumented in this encounter Care Teams Qc Scientist Relationship Specialty Start Date End Date Aleksandr Blount MD PCP - General 11/02/14 01/31/15 documented as of this encounter
--- OUTSIDE RECORDS SUMMARY | 2024-09-21 01:25 | XMS_ITS | Encounter Summary ---
Author Organization [facility] Address [address] [facility] [place] [address] [place] [address] Care Team Providers Care Therapy Director Name Role Phone Aleksandr Blount MD Primary Care Provider U Frieda Salcedo MD Primary Care Provider Unavailab Keiry Salazar OCEANOGRAPHER ASSISTANT Unavailable [phone] Encounter Details Date Type Department Care Team (Late st Contact Info) Description 07/17/2008 Abstract [facility] CONVERSION [address] [address] [place], [place] [id number] Carmela Molina MD [address] [place] [address] Social History Tobacco Use Types Packs/Day Years [...] filedocumented in this encounter Care Teams Therapy Director Relationship Specialty Start Date End Date Aleksandr Blount MD PCP - General 11/02/14 01/31/15 Frieda Wasserman MD PCP - General INTERNAL MEDICINE 08/31/18 02/23/20 Keiry Rucker NP Consulting Physician [facility] 10/04/18 04/13/19 documented as of this encounter
--- OUTSIDE RECORDS SUMMARY | 2024-09-21 01:25 | XMS_ITS | Encounter Summary ---
Author Organization [facility] Address [address] [facility] [place] [address] [place] [address] Care Team Providers Care Security Team Lead Name Role Phone Aleksandr Blount MD Primary Care Provider U kassy Encounter Details Date Type Department Care Team (Latest Contact Info) Description 09/03/2012 Abstract [facility] Medical Group Social History [...] on filedocumented in this encounter Care Teams Security Team Lead Relationship Specialty Start Date End Date Aleksandr Blount MD PCP - General 11/02/14 01/31/15 documented as of this encounter
--- OUTSIDE RECORDS SUMMARY | 2024-09-21 01:25 | XMS_ITS | Encounter Summary ---
Author Organization [facility] Address [address] [facility] [place] [address] [place] [address] Care Team Providers Care District Wildlife Manager Name Role Phone Aleksandr Blount MD Primary Care Provider U kassy Encounter Details Date Type Department Care Team (Latest Contact Info) Description 06/08/2012 Abstract [facility] Medical Group [...] filedocumented in this encounter Care Teams District Wildlife Manager Relationship Specialty Start Date End Date Aleksandr Blount MD PCP - General 11/02/14 01/31/15 documented as of this encounter
--- OUTSIDE RECORDS SUMMARY | 2024-09-21 01:25 | XMS_ITS | Encounter Summary ---
Author Organization [facility] Address [address] [facility] [place] [place] [address] [place] [address] Care Team Providers Care Design Transferrer Name Role Phone Aleksandr Blount MD Primary Care Provider U kassy Encounter Details Date Type Department Care Team (Latest Contact Info) Description 09/02/2012 Abstract [facility] Medical Group Social History Tobacco [...] on filedocumented in this encounter Care Teams Design Transferrer Relationship Specialty Start Date End Date Aleksandr Blount MD PCP - General 11/02/14 01/31/15 documented as of this encounter
--- OUTSIDE RECORDS SUMMARY | 2024-09-21 01:25 | XMS_ITS | Encounter Summary ---
Author Organization [facility] Address [address] [facility] [address] [place] [address] Care Team Providers Care Head Of Digital Advertising & Integration Name Role Phone Aleksandr Blount MD Primary Care Provider U kassy Encounter Details Date Type Department Care Team (Latest Contact Info) Description 01/04/2013 Abstract [facility] Medical Group Social [...] on filedocumented in this encounter Care Teams Head Of Digital Advertising & Integration Relationship Specialty Start Date End Date Aleksandr Blount MD PCP - General 11/02/14 01/31/15 documented as of this encounter
--- OUTSIDE RECORDS SUMMARY | 2024-09-21 01:25 | XMS_ITS | Encounter Summary ---
Author Organization [facility] Address [address] [facility] [place] [address] [place] [address] Care Team Providers Care Senior Corporate Recruiter Name Role Phone Aleksandr Blount MD Primary Care Provider U Frieda Salcedo MD Primary Care Provider Unavailab Keiry Salazar COMMODITY LOAN CLERK Unavailable [phone] Encounter Details Date Type Department Care Team (Late st Contact Info) Description 03/09/2009 Abstract [facility] CONVERSION [address] [address] [place], [place] [id number] Carmela Molina MD [address] [place] [address] Social History Tobacco Use Types Packs/Day Years [...] on filedocumented in this encounter Care Teams Senior Corporate Recruiter Relationship Specialty Start Date End Date Aleksandr Blount MD PCP - General 11/02/14 01/31/15 Frieda Wasserman MD PCP - General INTERNAL MEDICINE 08/31/18 02/23/20 Keiry Rucker NP Consulting Physician [facility] 10/04/18 04/13/19 documented as of this encounter
--- OUTSIDE RECORDS SUMMARY | 2024-09-21 01:25 | XMS_ITS | Encounter Summary ---
Author Organization [facility] Address [address] [facility] [place] [address] [place] [address] Care Team Providers Care Stove Bottom Worker Name Role Phone Aleksandr Blount MD Primary Care Provider U kassy Encounter Details Date Type Department Care Team (Latest Contact Info) Description 04/06/2012 Abstract [facility] Medical Group [...] on filedocumented in this encounter Care Teams Stove Bottom Worker Relationship Specialty Start Date End Date Aleksandr Blount MD PCP - General 11/02/14 01/31/15 documented as of this encounter
--- OUTSIDE RECORDS SUMMARY | 2024-09-21 01:25 | XMS_ITS | Encounter Summary ---
Author Organization [facility] Address [address] [facility] [place] [address] [place] [address] Care Team Providers Care Plumbing Drafter Name Role Phone Aleksandr Blount MD Primary Care Provider U kassy Encounter Details Date Type Department Care Team (Latest Contact Info) Description 04/19/2012 Abstract [facility] Medical Group Social [...] on filedocumented in this encounter Care Teams Plumbing Drafter Relationship Specialty Start Date End Date Aleksandr Blount MD PCP - General 11/02/14 01/31/15 documented as of this encounter
--- OUTSIDE RECORDS SUMMARY | 2024-09-21 01:25 | XMS_ITS | Encounter Summary ---
Author Organization [facility] Address [address] [facility] [place] [address] [place] [address] Care Team Providers Care Antisubmarine Weapons Officer Name Role Phone Aleksandr Blount MD Primary Care Provider U kassy Encounter Details Date Type Department Care Team (Latest Contact Info) Description 05/14/2012 Abstract [facility] Medical Group Social History Tobacco [...] on filedocumented in this encounter Care Teams Antisubmarine Weapons Officer Relationship Specialty Start Date End Date Aleksandr Blount MD PCP - General 11/02/14 01/31/15 documented as of this encounter
--- OUTSIDE RECORDS SUMMARY | 2024-09-21 01:25 | XMS_ITS | Encounter Summary ---
Author Organization [facility] Address [address] [facility] [place] [address] [place] [address] Care Team Providers Care Mainspring Strip Inspector Name Role Phone Aleksandr Blount MD Primary Care Provider U kassy Encounter Details Date Type Department Care Team (Latest Contact Info) Description 10/07/2012 Abstract [facility] Medical Group Social History Tobacco [...] on filedocumented in this encounter Care Teams Mainspring Strip Inspector Relationship Specialty Start Date End Date Aleksandr Blount MD PCP - General 11/02/14 01/31/15 documented as of this encounter
--- OUTSIDE RECORDS SUMMARY | 2024-09-21 01:25 | XMS_ITS | Encounter Summary ---
Author Organization [facility] Address [facility] [place] [address] [place] [address] Care Team Providers Care Jet Pilot Name Role Phone Aleksandr Blount MD Primary Care Provider U Frieda Salcedo MD Primary Care Provider Keiry Loomis RACING SECRETARY Unavailable [phone] Encounter Details Date Type Department Care Team (Late st Contact Info) Description 11/01/2011 Abstract [facility] CONVERSION [address] [place], [place] [id number] Gisela Rodriguez MD Social History Tobacco Use Types Packs/Day [...] as of this encounter Visit Diagnoses Diagnosis Obstructive chronic bronchitis with exacerbation ([facility]) Obstructive chronic bronchitis with exacerbation documented in this encounter Care Teams Jet Pilot Relationship Specialty Start Date End Date Aleksandr Blount MD PCP - General 11/02/14 01/31/15 Frieda Wasserman MD PCP - General INTERNAL MEDICINE 08/31/18 02/23/20 Keiry Rucker NP Consulting Physician [facility] 10/04/18 04/13/19 documented as of this encounter
--- OUTSIDE RECORDS SUMMARY | 2024-09-21 01:25 | XMS_ITS | Encounter Summary ---
Author Organization [facility] Address [address] [place] [address] [place] [address] Care Team Providers Care Cosmetologist Apprentice Name Role Phone Aleksandr Blount MD Primary Care Provider U kassy Encounter Details Date Type Department Care Team (Late st Contact Info) Description 10/02/[address] [place] [address] Andrews Womack MD [address] [place], [place] [id number] [phone] Social History Tobacco Use Types Packs/Day Years [...]
--- OUTSIDE RECORDS SUMMARY | 2024-09-21 01:25 | XMS_ITS | Encounter Summary ---
Author Organization [facility] Address [address] [facility] [place] [address] [place] [address] Care Team Providers Care Pump Press Operator Name Role Phone Aleksandr Blount MD Primary Care Provider U Frieda Salcedo MD Primary Care Provider Unavailab Keiry Salazar EDUCATION ADMINISTRATIVE ASSISTANT Unavailable [phone] Encounter Details Date Type Department Care Team (Late st Contact Info) Description 05/22/2008 Abstract [facility] CONVERSION [address] [place], [place] [id number] Carmela Molina MD [address] [place] [address] Social History Tobacco Use Types Packs/Day Years [...] on filedocumented in this encounter Care Teams Pump Press Operator Relationship Specialty Start Date End Date Aleksandr Blonut MD PCP - General 11/02/14 01/31/15 Frieda Wasserman MD PCP - General INTERNAL MEDICINE 08/31/18 02/23/20 Keiry Rucker NP Consulting Physician [facility] 10/04/18 04/13/19 documented as of this encounter
--- OUTSIDE RECORDS SUMMARY | 2024-09-21 01:25 | XMS_ITS | Encounter Summary ---
Author Organization [facility] Address [address] [facility] [place] [address] [place] [address] Care Team Providers Care Sailmaker Name Role Phone Aleksandr Blount MD Primary Care Provider U kassy Encounter Details Date Type Department Care Team (Latest Contact Info) Description 05/19/2012 Abstract [facility] Medical Group Social History Tobacco [...] on filedocumented in this encounter Care Teams Sailmaker Relationship Specialty Start Date End Date Aleksandr Blount MD PCP - General 11/02/14 01/31/15 documented as of this encounter
--- OUTSIDE RECORDS SUMMARY | 2024-09-21 01:25 | XMS_ITS | Encounter Summary ---
Author Organization [facility] Address [address] [facility] [place] [address] [place] [address] Care Team Providers Care Certified Prosthetist/Orthotist Name Role Phone Aleksandr Blount MD Primary Care Provider U kassy Encounter Details Date Type Department Care Team (Latest Contact Info) Description 05/18/2012 Abstract [facility] Medical Group Social [...] on filedocumented in this encounter Care Teams Certified Prosthetist/Orthotist Relationship Specialty Start Date End Date Aleksandr Blount MD PCP - General 11/02/14 01/31/15 documented as of this encounter
--- OUTSIDE RECORDS SUMMARY | 2024-09-21 01:25 | XMS_ITS | Encounter Summary ---
Author Organization [facility] Address [address] [facility] [address] [place] [address] Care Team Providers Care Panel Edge Sealer Name Role Phone Aleksandr Blount MD Primary Care Provider U Frieda Salcedo MD Primary Care Provider Unavailab Keiry Salazar SUPERVISOR MIXING Unavailable [phone] Encounter Details Date Type Department Care Team (Late st Contact Info) Description 10/31/2011 [facility] Emergency Room [address] [place] [address] Gisela Rodriguez MD Social History Tobacco Use [...] organism documented in this encounter Care Teams Panel Edge Sealer Relationship Specialty Start Date End Date Aleksandr Blount MD PCP - General 11/02/14 01/31/15 Frieda Wasserman MD PCP - General INTERNAL MEDICINE 08/31/18 02/23/20 Keiry Rucker NP Consulting Physician [facility] Home Facility 10/04/18 04/13/19 documented as of this encounter
--- OUTSIDE RECORDS SUMMARY | 2024-09-21 01:25 | XMS_ITS | Encounter Summary ---
Author Organization [facility] Address [address] [facility] [place] [address] [place] [address] Care Team Providers Care Director Of Litigation Name Role Phone Aleksandr Blount MD Primary Care Provider U kassy Encounter Details Date Type Department Care Team (Latest Contact Info) Description 09/10/2012 Abstract [facility] Medical Group Social History Tobacco Use [...] in this encounter Care Teams Director Of Litigation Relationship Specialty Start Date End Date Aleksnadr Blount MD PCP - General 11/02/14 01/31/15 documented as of this encounter
--- OUTSIDE RECORDS SUMMARY | 2024-09-21 01:25 | XMS_ITS | Encounter Summary ---
Author Organization [facility] Address [address] [place] [place] [address] [place] [address] Care Team Providers Care Pizzamaker Name Role Phone Aleksandr Blount MD Primary Care Provider U kassy Encounter Details Date Type Department Care Team (Latest Contact Info) Description 12/02/2012 Abstract [facility] Medical Group Social History Tobacco Use [...] on filedocumented in this encounter Care Teams Pizzamaker Relationship Specialty Start Date End Date Aleksandr Blount MD PCP - General 11/02/14 01/31/15 documented as of this encounter
--- OUTSIDE RECORDS SUMMARY | 2024-09-21 01:25 | XMS_ITS | Encounter Summary ---
Author Organization [facility] Address [address] [place] [place] [address] [place] [address] Care Team Providers Care Channel Process Plant Operator Name Role Phone Aleksandr Blount MD Primary Care Provider U kassy Encounter Details Date Type Department Care Team (Latest Contact Info) Description 12/27/2012 Abstract [facility] Medical Group Social History [...] filedocumented in this encounter Care Teams Channel Process Plant Operator Relationship Specialty Start Date End Date Aleksandr Blount MD PCP - General 11/02/14 01/31/15 documented as of this encounter
--- OUTSIDE RECORDS SUMMARY | 2024-09-21 01:25 | XMS_ITS | Encounter Summary ---
Author Organization [facility] Address [address] [place] [address] [place] [address] Care Team Providers Care Inspector Type Name Role Phone Aleksandr Blount MD Primary Care Provider U kassy Encounter Details Date Type Department Care Team (Latest Contact Info) Description 05/07/2012 Abstract [facility] Medical Group Social History Tobacco [...] filedocumented in this encounter Care Teams Inspector Type Relationship Specialty Start Date End Date Aleksandr Blount MD PCP - General 11/02/14 01/31/15 documented as of this encounter
--- OUTSIDE RECORDS SUMMARY | 2024-09-21 01:25 | XMS_ITS | Encounter Summary ---
Author Organization [facility] Address [address] [facility] [place] [address] [place] [address] Care Team Providers Care Production Control Coordinating Clerk Name Role Phone Aleksandr Blount MD Primary Care Provider U kassy Encounter Details Date Type Department Care Team (Latest Contact Info) Description 04/26/2012 Abstract [facility] Medical Group Social History [...] filedocumented in this encounter Care Teams Production Control Coordinating Clerk Relationship Specialty Start Date End Date Aleksandr Blount MD PCP - General 11/02/14 01/31/15 documented as of this encounter
--- OUTSIDE RECORDS SUMMARY | 2024-09-21 01:25 | XMS_ITS | Encounter Summary ---
Author Organization [facility] Address [facility] [facility] [place] [address] [place] [address] Care Team Providers Care Sweep Molder Name Role Phone Aleksandr Blount MD Primary Care Provider U Frieda Salcedo MD Primary Care Provider Unavailab Keiry Salazar LEMON PICKER Unavailable [phone] Encounter Details Date Type Department Care Team (Late st Contact Info) Description 01/13/2012 [facility] Emergency Room [address] [place], [place] [phone] Shaan Dyer MD [address] [facility], [address] [address] Social History Tobacco Use Types Packs/Day Years Used Date Smoking Tobacco: Never Assessed Comments Unknown Sex and Gender Information Value Date Recorded Sex Assigned at Not on file Legal Sex Female 10:25 PM CDT Gender Identity Not on file Sexual Orientation Not on file documented as of this encounter Plan of Treatment Not on file documented as of this encounter Visit Diagnoses Diagnosis Urinary tract infection Urinary tract infection, site not specified documented in this encounter Care Teams Sweep Molder Relationship Specialty Start Date End Date Aleksandr Blount MD PCP - General 11/02/14 01/31/15 Frieda Wasserman MD PCP - General INTERNAL MEDICINE 08/31/18 02/23/20 Keiry Rucker NP Consulting Physician [facility] 10/04/18 04/13/19 documented as of this encounter
--- OUTSIDE RECORDS SUMMARY | 2024-09-21 01:25 | XMS_ITS | Encounter Summary ---
Author Organization [facility] Address [address] [facility] [address] [place] [address] Care Team Providers Care Delphi Programmer Name Role Phone Aleksandr Blount MD Primary Care Provider U Frieda Salcedo MD Primary Care Provider Unavailab Keiry Salazar INDUSTRIAL ENGINEERING DIRECTOR Unavailable [phone] Encounter Details Date Type Department Care Team (Late st Contact Info) Description 03/30/2008 Abstract [facility] CONVERSION [address] [place], [place] [phone] Carmela Molina MD [address] [place] [address] Social History Tobacco Use Types Packs/Day Years [...] on filedocumented in this encounter Care Teams Delphi Programmer Relationship Specialty Start Date End Date Aleksandr Blount MD PCP - General 11/02/14 01/31/15 Frieda Wasserman MD PCP - General INTERNAL MEDICINE 08/31/18 02/23/20 Keiry Rucker NP Consulting Physician [facility] 10/04/18 04/13/19 documented as of this encounter
--- OUTSIDE RECORDS SUMMARY | 2024-09-21 01:25 | XMS_ITS | Encounter Summary ---
Author Organization [facility] Address [address] [facility] [place] [address] [place] [address] Care Team Providers Care Senior Sql Server Database Developer Name Role Phone Aleksandr Blount MD Primary Care Provider U kassy Encounter Details Date Type Department Care Team (Latest Contact Info) Description 05/12/2012 Abstract [facility] Medical Group Social History Tobacco Use [...] filedocumented in this encounter Care Teams Senior Sql Server Database Developer Relationship Specialty Start Date End Date Aleksandr Blount MD PCP - General 11/02/14 01/31/15 documented as of this encounter
--- OUTSIDE RECORDS SUMMARY | 2024-09-21 01:25 | XMS_ITS | Encounter Summary ---
Author Organization [facility] Address [address] [facility] [place] [address] [place] [address] Care Team Providers Care Director Visual Name Role Phone Aleksandr Blount MD Primary Care Provider U kassy Encounter Details Date Type Department Care Team (Latest Contact Info) Description 07/22/2012 Abstract [facility] Medical Group Social History Tobacco [...] filedocumented in this encounter Care Teams Director Visual Relationship Specialty Start Date End Date Aleksandr Blount MD PCP - General 11/02/14 01/31/15 documented as of this encounter
--- OUTSIDE RECORDS SUMMARY | 2024-09-21 01:25 | XMS_ITS | Encounter Summary ---
Author Organization [facility] Address [address] [facility] [place] [address] [place] [address] Care Team Providers Care Facilities Director Name Role Phone Aleksandr Blount MD Primary Care Provider U kassy Encounter Details Date Type Department Care Team (Latest Contact Info) Description 04/29/2012 Abstract [facility] Medical Group Social History [...] on filedocumented in this encounter Care Teams Facilities Director Relationship Specialty Start Date End Date Aleksandr Blount MD PCP - General 11/02/14 01/31/15 documented as of this encounter
--- OUTSIDE RECORDS SUMMARY | 2024-09-21 01:25 | XMS_ITS | Encounter Summary ---
Author Organization [facility] Address [address] [facility] [place] [address] [place] [address] Care Team Providers Care Architecture Professor Name Role Phone Aleksandr Blount MD Primary Care Provider Antonio elena Encounter Details Date Type Department Care Team (Latest Contact Info) Description 04/23/2012 Abstract [facility] Medical [...] Progress Notes * Yoan Bermudez MD - 04/23/2012 10:10 AM CDT Note Body New orders to D/C sliding scale insulin and reduce accu checks to every AM. Start Byetta 5 mcg subqBID 30 min prior to meals. Order given to Maye at [facility]. Signatures Electronically signed by : Mere Pavon, ; Apr 23 2012 10:12AM (Author) Electronically signed by : Yoan Bermudez M.D.; 2012 6:30AM (Author) ING MECHANIC documented in this encounter Plan of Treatment Not on file documented as of this encounter Visit Diagnoses Not on filedocumented in this encounter Care Teams Architecture Professor Relationship Specialty Start Date End Date Aleksandr Blount MD PCP - General 11/02/14 01/31/15 documented as of this encounter
--- OUTSIDE RECORDS SUMMARY | 2024-09-21 01:25 | XMS_ITS | Encounter Summary ---
Author Organization [facility] Address [address] [facility] [place] [address] [place] [address] Care Team Providers Care Director Community Health Nursing Name Role Phone Aleksandr Blount MD Primary Care Provider U kassy Encounter Details Date Type Department Care Team (Latest Contact Info) Description 05/05/2012 Abstract [facility] Medical Group Social [...] filedocumented in this encounter Care Teams Director Community Health Nursing Relationship Specialty Start Date End Date Aleksandr Blount MD PCP - General 11/02/14 01/31/15 documented as of this encounter
--- OUTSIDE RECORDS SUMMARY | 2024-09-21 01:25 | XMS_ITS | Encounter Summary ---
Author Organization [facility] Address [address] [facility] [place] [address] [place] [address] Care Team Providers Care Trains Dispatcher Supervisor Name Role Phone Aleksandr Blount MD Primary Care Provider U Frieda Salcedo MD Primary Care Provider Unavailab Keiry Salazar DIAGNOSTIC TECHNICIAN Unavailable [phone] Encounter Details Date Type Department Care Team (Late st Contact Info) Description 10/05/2011 Abstract [facility] [address] [place], [place] [phone] Andrews Womack MD [facility] [place], [place] [phone] Social History Tobacco Use Types Packs/Day Years Used Date Smoking Tobacco: Never Assessed Comments Unknown Sex and Gender Information Value Date Recorded Sex Assigned at Not on file Legal Sex Female 10:25 PM CDT Gender Identity Not on file Sexual Orientation Not on file documented as of this encounter Plan of Treatment Not on file documented as of this encounter Visit Diagnoses Diagnosis Swelling of limb documented in this encounter Care Teams Trains Dispatcher Supervisor Relationship Specialty Start Date End Date Aleksandr Blount MD PCP - General 11/02/14 01/31/15 Frieda Wasserman MD PCP - General INTERNAL MEDICINE 08/31/18 02/23/20 Keiry Rucker NP Consulting Physician [facility] 10/04/18 04/13/19 documented as of this encounter
--- OUTSIDE RECORDS SUMMARY | 2024-09-21 01:25 | XMS_ITS | Encounter Summary ---
Author Organization [facility] Address [address] [place] [address] [place] [address] Care Team Providers Care Seed Cutter Name Role Phone Aleksandr Blount MD Primary Care Provider U kassy Encounter Details Date Type Department Care Team (Latest Contact Info) Description 09/30/2012 Abstract [facility] Medical Group Social [...] on filedocumented in this encounter Care Teams Seed Cutter Relationship Specialty Start Date End Date Aleksandr Blount MD PCP - General 11/02/14 01/31/15 documented as of this encounter
--- OUTSIDE RECORDS SUMMARY | 2024-09-21 01:25 | XMS_ITS | Encounter Summary ---
Author Organization [facility] Address [address] [facility] [place] [address] [place] [address] Care Team Providers Care Coating Mixer Supervisor Name Role Phone Aleksandr Blount MD Primary Care Provider U kassy Encounter Details Date Type Department Care Team (Latest Contact Info) Description 05/04/2012 Abstract [facility] Medical Group [...] on filedocumented in this encounter Care Teams Coating Mixer Supervisor Relationship Specialty Start Date End Date Aleksandr Blount MD PCP - General 11/02/14 01/31/15 documented as of this encounter
--- OUTSIDE RECORDS SUMMARY | 2024-09-21 01:26 | XMS_ITS | Encounter Summary ---
Author Organization [facility] Address [address] [facility] [place] [address] [place] [address] Care Team Providers Care Secondary School Principal Name Role Phone Aleksandr Blount MD Primary Care Provider kassy Encounter Details Date Type Department Care Team (Late st Contact Info) Description 10/01/2003 Abstract [facility] [place] [facility]urg [address] [place], [place] [id number] Yoan Woo MD [address] [facility] [address] [place] [address] Social History Tobacco Use Types Packs/Day Years [...] on filedocumented in this encounter Care Teams Secondary School Principal Relationship Specialty Start Date End Date Aleksandr Blount MD PCP - General 11/02/14 01/31/15 documented as of this encounter
== END 2024-09-16 16:30 | DRG 193 ==
LOC: ANHED 12:41 → ANHIMU 15:26 → ANH3MEDSUR 09-15 22:19
PROVIDERS: Nurse Practitioner Acute Care; Admitting Provider Internal Medicine; Emergency Provider Emergency Medicine; PCP Family Medicine; Visit Provider Nurse Practitioner Family
DX: J18.9 Pneumonia, unspecified organism (principal); J96.01 Acute respiratory failure with hypoxia; E87.20 Acidosis, unspecified; D61.818 Other pancytopenia; I11.0 Hypertensive heart disease with heart failure; I50.9 Heart failure, unspecified; D69.6 Thrombocytopenia, unspecified; E78.5 Hyperlipidemia, unspecified; E11.65 Type 2 diabetes mellitus with hyperglycemia; E11.40 Type 2 diabetes mellitus with diabetic neuropathy, unspecified; R13.10 Dysphagia, unspecified; Y95 Nosocomial condition; G35 Multiple sclerosis; F03.90 Unspecified dementia, unspecified severity, without behavioral disturbance, psychotic disturbance, mood disturbance, and anxiety; Z20.822 Contact with and (suspected) exposure to COVID-19; Z79.82 Long term (current) use of aspirin; Z11.52 Encounter for screening for COVID-19; Z79.4 Long term (current) use of insulin; Z99.3 Dependence on wheelchair
CPT/HCPCS: 36415; 36600; 70450; 70551; 71045; 71275; 74174; 80053; 81001; 82140; 82607; 82746; 82803; 82805; 82948; 83036; 83605; 83735; 83880; 84100; 84145; 84443; 85018; 85025; 85055; 85652; 86140; 87040; 87045; 87086; 87177; 87209; 87427; 87449; 87493; 87635; 87637; 87641; 92610; 92611; 93306; 94640; 94667; 96365; 96367; 96375; 96376; 99285; A9270; G0378; J0360; J0456; J0692; J0696; J1650; J1815; J1940; J2470; J3370; J7030; J7070; Q9967